=== PATIENT | male | born 1955 ===

== ENCOUNTER 2021-12-07 14:11 | Emergency (ER) | payer MEDICARE, MEDICAID, SELFPAY ==
--- NOTE | ~2021-12-07 | XR_ITS ---
EXAMINATION: XR HIP, LEFT CLINICAL INFORMATION: Pain after fall COMPARISON: None TECHNIQUE: Two views of the left hip. Single view pelvis FINDINGS: The pelvic image does not demonstrate fracture. The detailed imaging of the left hip does not demonstrate evidence for fracture or dislocation. XR/XR hip LT w PEL1V IMPRESSION: No fracture or dislocation seen.
[2021-12-07 14:32] VITALS: BP 116/70; PULSE 72; O2SAT 98
--- NOTE | 2021-12-07 14:34 | ED.GENADULT ---
HPI - General Adult General Chief complaint: Extremity Injury, Lower Stated complaint: FALL Time Seen by Provider: 12/07/21 14:33 Source: patient and EMS Limitations: altered mental status History of Present Illness HPI narrative: This is a 66-year-old male who resides at a detention facility, is there for rehab after a fall. Patient has had left hip pain for some time, though he has been able to ambulate. He has not had any known fracture. Patient also has a history of a stroke. The patient reportedly had rolled out of bed last night and then complained of left hip pain. The nursing facility supposedly was to get an x-ray on him at the facility however the patient himself called EMS stating he had left hip pain after a fall. Per EMS, the patient has been ambulatory today and they observed that he was able to stand and pivot normally. Patient denies hitting his head. He has some pain in his sternum and points to his xiphoid process states the pain has been there for some time. Denies any generalized chest pain, shortness of breath, abdominal pain. Related Data Allergies Allergy/AdvReac Type Severity Reaction Status Date / Time gabapentin [GABAPENTIN] Allergy Unknown N/V Unverified 01/07/20 16:51 Penicillins [PENICILLINS] Allergy Unknown RASH Unverified 01/07/20 16:51 pregabalin [From LYRICA] Allergy Unknown N/V Unverified 01/07/20 16:51 cephalosporin Allergy Unknown Uncoded 02/13/12 00:00 Penicillin Allergy Unknown Uncoded 02/13/12 00:00 Review of Systems Review of Systems: Yes all other systems are reviewed and are negative Constitutional: Constitutional: Reports as per HPI and Denies fever(s) Eyes: Eyes: Reports as per HPI and Reports no additional eye complaints ENT: Reports system reviewed and no additional complaints, except as documented, Reports as per HPI, Denies nasal congestion, Denies nasal discharge and Denies sore throat Cardiovascular: Cardiovascular: Reports as per HPI, Denies chest pain and Denies dyspnea Respiratory: Respiratory: Reports as per HPI, Denies cough and Denies dyspnea Gastrointestinal: Gastrointestinal: Reports as per HPI, Denies abdominal pain, Denies diarrhea and Denies vomiting Genitourinary: Genitourinary: Reports as per HPI, Denies hematuria, Denies dysuria and Denies urinary frequency Musculoskeletal: Musculoskeletal: Reports no additional musculoskeletal complaints and Denies numbness Comments: Left hip pain Integumentary/Breasts: Skin/Breast: Reports as per HPI and Denies rash Neurologic: Reports as per HPI, Denies focal weakness and Denies numbness Psychiatric: Psychiatric: Reports no additional psychiatric complaints and Reports as per HPI Endocrine: Endocrine: Reports no additional endocrine complaints and Reports as per HPI Hematologic/Lymphatic: Hematologic/Lymphatic: Reports no additional hematologic/lymphatic complaints, Reports as per HPI and Reports other (No peripheral edema) ON LICENSE OF [facility] Social History Social History Advance Directives: No Advance Directives Information Provided: No Physical Exam ED Vital Signs: Vital Signs - 24 hr 12/07/21 14:36 12/07/21 16:06 Temperature 98 F Pulse Rate 72 78 Respiratory Rate 17 16 Blood Pressure 116/72 119/60 Pulse Oximetry 98 98 Oxygen Delivery Method Room Air Room Air BMI result Body Mass Index 24.3 Const General: no acute distress HENMT Head: Yes normal to inspection General nose exam: Normal external nose present Mouth: moist mucous membranes Throat: Yes posterior oropharynx normal, Yes tonsils normal and Yes uvula midline Eyes Eyelids: Yes eyelids normal Conjunctivae: conjunctivae normal Pupils: Equal, round and reactive pupils present Neck Neck: Yes supple Chest Other: Patient has a very prominent xiphoid process which protrudes forward. This appears to be a chronic issue and not secondary to injury. Resp Effort & Inspection: normal respiratory effort Auscultation: clear to auscultation bilaterally Cardio Rate: regular rate Rhythm: regular rhythm Heart sounds: S1 normal heart sound present, S2 normal heart sound present, no gallops, no murmurs and no rubs GI Inspection: No distended Palpation (GI): Soft to palpation and nontender Auscultation: normal bowel sounds Skin General skin exam: other (Warm and dry) Neuro General: CN's II-XI intact bilaterally Cranial nerves: Yes Equal, round and reactive pupils present Extrem Other: No significant tenderness over left hip. No tenderness to flexion or internal/external rotation. Pelvis stable. General: Yes no pedal edema Psych Affect: normal affect Attitude: cooperative Medical Decision Making MDM Narrative Medical decision making narrative: Patient had a fall out of bed last evening, had been assessed at his detention facility could staff there was surprised when the ambulance arrived, patient had apparently called the ambulance on his own home. Patient had been ambulating today after the fall and EMS noted that the patient seemed to stand and pivot normally. Patient had no significant tenderness on exam. X-ray of the hip was negative. Patient has previously had pain in that hip, had been assessed previously at [facility] for this. Patient is safe for return to his detention facility Imaging Data Left hip x-ray: Radiologist's impression: No acute pathology Discharge Plan Discharge Clinical Impression: Chronic hip pain Patient Disposition: [facility] SN[facility] Instructions: Chronic Pain (ED), Hip Pain (ED) Additional Instructions: Continue her current medications. Use acetaminophen 650 mg every 4 hours for pain.
[2021-12-07 14:36] VITALS: BP 116/72; PULSE 72; RESP 17; TEMP 36.6; O2SAT 98; BMI 24.3
[2021-12-07] MEDS: Acetaminophen 325 MG TABLET 650 MG PO (16:03)
[2021-12-07 16:06] VITALS: BP 119/60; PULSE 78; RESP 16; O2SAT 98
--- NOTE | 2021-12-07 16:15 | PC.NURSE ---
report given to [facility], spouse and primary contact updated. pending transport to [facility].
== END 2021-12-07 18:07 | disposition skilled nursing facility (03) ==
PROVIDERS: Emergency Provider Emergency Medicine; PCP Internal Medicine
DX: G89.29 Other chronic pain (principal); M25.552 Pain in left hip
CPT/HCPCS: 73502; 99283

== ENCOUNTER 2022-10-03 10:33 | Emergency (ER) | payer MEDICARE, MEDICAID, SELFPAY ==
[2022-10-03 10:49] VITALS: BP 107/58; BP 122/76; PULSE 80; PULSE 98; RESP 16; TEMP 36.6; O2SAT 95; O2SAT 98; BMI 24.6
--- NOTE | 2022-10-03 11:13 | PC.NURSE ---
Resumed care of patient, he is currently resting in bed, monitors in place. All needs met at this time, awaiting further orders
[2022-10-03 12:10] LABS: MANUAL DIFF FLAG NO
[2022-10-03 12:17] LABS: Basophils Percent Auto 0.6 % (0-2); Eosinophils Absolute Auto 0.1 X10*3/uL (0.0-0.4); Eosinophils Percent Auto 1.1 % (0-4); Hematocrit 36.8 % (42.0-52.0); Hemoglobin 12.8 g/dl (14.0-18.0); Imm Gran Abs Auto 0.02 X10*3/uL (0.00-0.03); Imm Gran Pct Auto 0.3 % (0.0-0.4); Lymphocytes Absolute Auto 1.8 X10*3/uL (1.2-4.9); Lymphocytes Percent Auto 29.3 % (20-40); Mean Corpuscular HGB Conc 34.8 g/dl (31.0-36.0); Mean Corpuscular Hemoglobin 32.9 pg (27.0-33.0); Mean Corpuscular Volume 94.6 fL (80.0-98.0); Mean Platelet Volume 8.5 fL (9.4-12.4); Monocytes Absolute Auto 0.5 X10*3/uL (0.1-1.2); Monocytes Percent Auto 8.3 % (2-11); Neutrophils Absolute Auto 3.7 x10*3/uL (2.0-8.3); Neutrophils Percent Auto 60.4 % (45-73); Platelet Count 191 X10*3/uL (160-400); Red Blood Count 3.89 X10*6/uL (4.60-5.80); Red Cell Distribution Width 11.9 % (11.0-16.0); White Blood Count 6.2 X10*3/uL (4.8-10.8)
[2022-10-03 12:27] LABS: Alanine Aminotransferase 14 U/L (0-40); Albumin Level 4.1 g/dL (3.5-5.0); Alkaline Phosphatase 66 U/L (39-117); Anion Gap 14 (12-20); Aspartate Amino Transferase 13 U/L (5-37); Bilirubin Total 2.1 mg/dL (0.0-1.0); Blood Urea Nitrogen 12 mg/dL (9-16); Calcium 9.4 mg/dL (8.4-10.2); Carbon Dioxide 25 mmol/L (22-29); Chloride 108 mmol/L (96-108); Creatinine Clr Calc Pharmacy 113.6; Estimated Glomerular Filt Rate > 60; Glucose Random 114 mg/dL (60-115); Magnesium 1.8 mg/dL (1.6-2.6); Potassium 3.6 mmol/L (3.3-5.1); Sodium 143 mmol/L (135-145); Total Protein 6.8 g/dL (6.5-8.0)
[2022-10-03 13:10] VITALS: BP 117/64; PULSE 62; RESP 17; TEMP 36.9; O2SAT 97
--- NOTE | 2022-10-03 13:46 | ED.GENADULT ---
HPI - General Adult General Chief complaint: General Medical Stated complaint: Dizzy, spacing out per EMS Time Seen by Provider: 10/03/22 12:06 Source: patient Mode of arrival: EMS Limitations: no limitations History of Present Illness HPI narrative: 67-year-old male presents for brief episode of confusion patient was doing okay until this morning when he developed a period of confusion where he was unsure where he was. He has since cleared and is mostly at his baseline mental status. He denies any fevers, chills, cough or mucus production. Denies any pain. Denies any urinary frequency, urgency or dysuria. There is no clear relieving or exacerbating features. His symptoms at this time were quite mild at that time that this occurred, he would is described as symptoms as severe. Patient has had perhaps 1 episode of this in the past but he was unable to describe it any further. Patient denies any other acute complaints at this time. Patient is hungry and would like something to eat. Related Data Allergies Allergy/AdvReac Type Severity Reaction Status Date / Time gabapentin [GABAPENTIN] Allergy Unknown N/V Verified 10/03/22 11:01 Penicillins [PENICILLINS] Allergy Unknown RASH Verified 10/03/22 11:01 pregabalin [From LYRICA] Allergy Unknown N/V Verified 10/03/22 11:01 cephalosporin Allergy Unknown Itching Uncoded 10/03/22 11:01 Penicillin Allergy Unknown Swelling Uncoded 10/03/22 11:01 Review of Systems Review of Systems: CONSTITUTIONAL: Denies weight loss, fever and chills. HEENT: Denies changes in vision and hearing. RESPIRATORY: Denies SOB and cough. CV: Denies palpitations no CP. GI: Denies abdominal pain, nausea, vomiting and diarrhea. : Denies dysuria and urinary frequency. MSK: Denies myalgia and joint pain. SKIN: Denies rash and pruritus. NEUROLOGICAL: Denies headache and syncope. PSYCHIATRIC: Denies recent changes in mood. Denies anxiety and depression. All other ROS are negative unless in HPI PMFSH Social History Social History Smoked in Last 30 Days: Yes Use of substances other than those prescribed or required for medical reasons: Yes Substance Use Type: Marijuana Substance Use Frequency: Weekly Substance Use Frequency Other:: 5 Last Used Substance: Days (ago) Advance Directives: No Physical Exam ED Vital Signs: Vital Signs - 24 hr 10/03/22 10:49 10/03/22 13:10 Temperature 98 F 98.4 F Pulse Rate 80 62 Respiratory Rate 16 17 Blood Pressure 107/58 L 117/64 Pulse Oximetry 98 97 Oxygen Delivery Method Room Air Room Air BMI result Body Mass Index 24.6 GEN: Well developed, no acute distress, alert, oriented HEENT: Normocephalic, atraumatic, normal external ears, nose appears normal, no oropharyngeal edema or exudates Eyes: Normal to appearance Neck: Supple, no lymphadenopathy Respiratory: Talks in complete sentences, no respiratory distress, clear to auscultation bilaterally Cardiovascular: Regular rate and rhythm, no murmurs rubs or gallops Abdomen: Soft, nontender, nondistended, no guarding, no rebound Back: No CVA tenderness Extremities: No clubbing cyanosis or edema Neurologic: No focal neurologic deficits, cranial nerves 2-12 intact, strength is 5/5 bilaterally Skin: No rash Course Course Course Narrative: Patient workup is nearly complete. Urinalysis is pending however, patient is able to urinate at this time. There is no evidence of acute infection. He is otherwise asymptomatic. I will discuss the potential for discharge at this time any can follow up with his regular provider should he have any urinary complaints. Medical Decision Making Medical Decision Making [facility] Narrative: 67-year-old male presents with brief confusional episode. Etiology is unclear. Has no new focal neurologic deficits. He is alert, oriented, appropriate offers no complaints. Will check routine laboratory analysis an order urinalysis to see if he has UTI. There is no indication for emergent imaging. Differential diagnosis could include glycemic related issue, electrolyte abnormality, confusion, disorientation, delirium. Disposition pending workup. Differential Diagnosis Differential Diagnoses: The differential diagnosis associated with the presentation includes (See above) Admission/Observation Consideration of admission/observation: Escalation of care including admission/observation considered Lab Data [facility] Lab Attestation statement: I reviewed the patient's lab results. 10/03/22 12:04 10/03/22 12:04 Labs: Lab Results 10/03/22 10/03/22 Range/Units 12:04 12:04 WBC 6.2 (4.8-10.8) X10*3/uL RBC 3.89 L (4.60-5.80) X10*6/uL Hgb 12.8 L (14.0-18.0) g/dl Hct 36.8 L (42.0-52.0) % MCV 94.6 (80.0-98.0) fL MCH 32.9 (27.0-33.0) pg MCHC 34.8 (31.0-36.0) g/dl RDW 11.9 (11.0-16.0) % Plt Count 191 (160-400) X10*3/uL MPV 8.5 L (9.4-12.4) fL Immature Gran % (Auto) 0.3 (0.0-0.4) % Neut % (Auto) 60.4 (45-73) % Lymph % (Auto) 29.3 (20-40) % [place] % (Auto) 8.3 (2-11) % Eos % (Auto) 1.1 (0-4) % Baso % (Auto) 0.6 (0-2) % Lymph # (Auto) 1.8 (1.2-4.9) X10*3/uL [place] # (Auto) 0.5 (0.1-1.2) X10*3/uL Eos # (Auto) 0.1 (0.0-0.4) X10*3/uL Baso # (Auto) 0.0 (0.0-0.2) X10*3/uL Abs Immat Gran (auto) 0.02 (0.00-0.03) X10*3/uL Absolute Neuts (auto) 3.7 (2.0-8.3) x10*3/uL Absolute Nucleated RBC 0.000 (0.0-0.012) X10*3/uL Nucleated RBC % (auto) 0.0 (0.0-0.2) /100WBC Sodium 143 (135-145) mmol/L Potassium 3.6 (3.3-5.1) mmol/L Chloride 108 (96-108) mmol/L Carbon Dioxide 25 (22-29) mmol/L Anion Gap 14 (12-20) BUN 12 (9-16) mg/dL Creatinine 0.66 (0.5-1.4) mg/dL Estim Creat Clear Calc 113.6 Estimated GFR > 60 Random Glucose 114 (60-115) mg/dL Calcium 9.4 (8.4-10.2) mg/dL Magnesium 1.8 (1.6-2.6) mg/dL Total Bilirubin 2.1 H (0.0-1.0) mg/dL AST 13 (5-37) U/L ALT 14 (0-40) U/L Alkaline Phosphatase 66 (39-117) U/L Total Protein 6.8 (6.5-8.0) g/dL Albumin 4.1 (3.5-5.0) g/dL External Record Review No external records are available Tests considered The following testing was considered but not selected: Urinalysis, CT scan Prescription Management I considered prescription management with: Antibiotic Chronic Conditions Patient?s care impacted by: Diabetes Discharge Plan Discharge Clinical Impression: Acute confusion Patient Disposition: Home, Self-Care Instructions: Acute Delirium (ED) Referrals: Leonardo Bingham III, MD [Primary Care Provider] - 2 days
--- NOTE | 2022-10-03 16:00 | PC.NURSE ---
tel# for Contact to pick him up is no longer in service.
--- NOTE | 2022-10-03 16:46 | PC.NURSE ---
have tried to call the numbers we have on file all are disconnected, will arrange a lift.
[2022-10-03 17:24] LABS: Appearance Urine Clear; Color Urine Dark Yellow; Glucose Urine UA Negative (Negative); Leukocyte Esterase Urine Trace (Negative); Nitrite Urine Negative (Negative); Specific Gravity - Urine >= 1.030 (1.005-1.025); UMIC TRIGGER UACC YES; Urine Blood Negative (Negative); Urine Ketones Trace mg/dL (Negative); Urine Protein 30 (1+) mg/dL (Neg-Trace)
[2022-10-03 17:44] LABS: Bacteria Urine None Seen (None Seen); Hyaline Casts Urine 0-2 /LPF (0-2); RBC Urine 0-2 /HPF (0-2); Squamous Epithelial Cell Urine 0-2 /HPF (0-2); WBC Urine 0-5 /HPF (0-5)
[2022-10-03 17:51] VITALS: BP 109/58; PULSE 58; RESP 15; TEMP 36.6; O2SAT 98
== END 2022-10-03 19:16 | disposition home or self-care (01) ==
PROVIDERS: Physician Assistant Medical; Emergency Provider Emergency Medicine; PCP Internal Medicine
DX: R41.0 Disorientation, unspecified (principal)
CPT/HCPCS: 36415; 80053; 81001; 83735; 85025; 99283; 99284

== ENCOUNTER 2023-01-26 13:32 | Inpatient (IN) | payer MEDICARE, SELFPAY ==
[2023-01-26] VITALS (9 sets, daily range): BP systolic 86–126; BP diastolic 47–71; PULSE 68–132; RESP 12–30; TEMP 36.9; O2SAT 91–99; BMI 23.2
--- NOTE | 2023-01-26 14:14 | ED.WEAKNESS ---
HPI - Weakness General Chief complaint: Extremity Problem Stated complaint: UPPER LEG PAIN Time Seen by Provider: 01/26/23 13:51 Source: patient Mode of arrival: ambulatory Limitations: no limitations History of Present Illness HPI Narrative: 67-year-old male with history of diabetes mellitus, hypertension, COPD, who presents emergency department for evaluation of weakness which started today that caused him to fall. The patient states that 3 weeks prior he fell and after value was unable to walk in the sent to rehab at [facility]. He states that he was released yesterday. When he got home he was not feeling well. He states he has not been able to walk. He states that his girlfriend was helping him to try to get up stairs when he felt he states that he did not hit his head any had no loss of consciousness. He was too weak to get up and an ambulance was called and was brought to the emergency department for evaluation. The patient's review of system was positive for rhinorrhea, shortness of breath and nausea. He denied fever, chills, cough, chest pain, dark black stools, bloody stools, frequency, urgency or dysuria. Related Data Allergies Allergy/AdvReac Type Severity Reaction Status Date / Time gabapentin [GABAPENTIN] Allergy Unknown N/V Verified 10/03/22 11:01 Penicillins [PENICILLINS] Allergy Unknown RASH Verified 10/03/22 11:01 pregabalin [From LYRICA] Allergy Unknown N/V Verified 10/03/22 11:01 cephalosporin Allergy Unknown Itching Uncoded 10/03/22 11:01 Penicillin Allergy Unknown Swelling Uncoded 10/03/22 11:01 Review of Systems Review of Systems: Yes all other systems are reviewed and are negative [facility] Past Medical History [facility] Narrative: Past medical history: Diabetes, hypertension, COPD-patient does not use home oxygen. Social history: He lives at home with his girlfriend. He smokes 1 pack of cigarettes per day times 20 years. He denies alcohol use. Denies drug use. Social History Social History Substance Use Type: Marijuana Advance Directives: No Advance Directives Information Provided: Yes Physical Exam Vital Signs: Vital Signs: Last Vital Signs Temp 98.5 F 01/26/23 13:47 Pulse 76 01/26/23 16:27 Resp 25 H 01/26/23 16:27 BP 104/62 01/26/23 16:27 Pulse Ox 94 01/26/23 16:27 O2 Del Method Nasal Cannula 01/26/23 16:27 O2 Flow Rate 2.5 01/26/23 16:27 BMI result Body Mass Index 23.2 Initial vital signs revealed hypotension with a blood pressure of 86/47, O2 saturation was 94% on 4 L via nasal cannula-patient does have COPD but he does not use oxygen at home. Respiratory rate was normal 12. Pulse was normal 94. Exam: General: Awake, alert, male patient, looks older than his stated age, answers all questions appropriate Head: Normocephalic, atraumatic EENT: PERRL, Lids normal, sclera normal, conjunctiva normal, nose normal , ears normal, throat without erythema or exudates. Patient's mucous membranes are very dry Neck: Supple, no adenopathy, trachea midline and nontender Lung: breath sounds symmetric, no wheezing, patient has rales diffusely but her bilaterally symmetric, he also has diffuse rhonchi Chest: symmetric movement, nontender Heart: regular rate and rhythm, normal S1, S2 no murmurs or rubs Abdomen: soft, non-tender, nondistended, normal bowel sounds Back: no vertebral tenderness, no CVAT Extremities: no deformities, moves all extremities symmetrically Skin: no rashes, no lesion, normal color and warmth Neuro: Awake, alert, oriented, normal speech, cranial nerves intact, moves all extremities symmetrically Psych: Pleasant, cooperative Medications Administered Generic Name Dose Route Start Last Admin Trade Name Freq PRN Reason Stop Dose Admin Dextrose/Sodium Chloride 1,000 mls @ 250 mls/hr 01/26/23 16:00 01/26/23 16:43 D51/2ns IVCONT 250 mls/hr .Q4H GAGANDEEP Administration Discontinued Medications Generic Name Dose Route Start Last Admin Trade Name Freq PRN Reason Stop Dose Admin Dexamethasone Sodium Phosphate 6 mg 01/26/23 15:45 01/26/23 16:36 Dexamethasone Sod Phosphate 4 Mg/Ml Vial IVPUSH 01/26/23 15:46 6 mg ONCE ONE Administration Sodium Chloride 2,202 mls @ 2,202 mls/hr 01/26/23 14:20 01/26/23 15:25 Ns 30 ml/kg infuse over 1 hr (2202 ml) 01/26/23 15:19 Infused IV Infusion .Q1H STA Ceftriaxone Sodium 1 gm/ 50 mls @ 100 mls/hr 01/26/23 14:22 01/26/23 15:21 Sodium Chloride IV 01/26/23 14:51 Infused ONCE ONE Infusion Medical Decision Making Medical Decision Making [facility] Narrative: 16:10 67-year-old male with a history of diabetes mellitus, hypertension, COPD-does not wear oxygen who had a fall 3 weeks, sent to rehab from which he was released yesterday. Since being home he has been feeling weak and has had difficulty walking, he was walking in his hallway with his girlfriend to try to go upstairs any fell. He had no head injury but was too weak and an ambulance was called and he was brought to the emergency department for evaluation. Patient's vital signs did reveal hypotension and hypoxia. Lung exam was concerning for diffuse rhonchi diffuse rales but no wheezing. Neurologic exam was nonfocal. No evidence for trauma. Following evaluation was ordered: CBC, CMP, liver profile, bilirubin, lactic acid, PT/INR, PTT, troponin, influenza, COVID-19, EKG urinalysis, chest x-ray one view. I ordered 30 cc/kilogram normal saline bolus and ceftriaxone 1 g IV. Patient's laboratory evaluation did reveal an elevated sodium of 148 suggesting the patient is dehydrated, has an elevated BUN of 31 suggesting that he did volume depleted Lactic acid was elevated 7.3-this could be multifactorial and related to starvation ketosis versus infection. I will discuss admission with the covering hospitalist. 17:03 The patient's repeat lactic acid was improved at 2.8. Repeat blood pressure is also improved. Focal exam was performed. I did discuss patient's presentation with the covering hospitalist, Dr. Payan and the patient will be admitted for further management. Differential Diagnosis Differential Diagnoses: The differential diagnosis associated with the presentation includes 16:10 Differential diagnosis includes was not limited to dehydration, volume depletion, pneumonia, urinary tract infection, COVID-19, influenza, electrolyte abnormalities, any Admission/Observation Consideration of admission/observation: Escalation of care including admission/observation considered Lab Data [facility] Lab Attestation statement: I reviewed the patient's lab results. My interpretation patient's laboratory evaluation as follows: CBC was normal. Sodium elevated 148, chloride elevated 110, bicarb low 16 BUN elevated 31 with a normal creatinine of 1.1. Glucose elevated 184. Initial high sensitive troponin I was detectable but not elevated 3.0. lactic acid was elevated 7.3. Influenza was negative. COVID-19 is positive 01/26/23 13:54 01/26/23 13:54 Labs: Lab Results 01/26/23 01/26/23 01/26/23 Range/Units 13:54 14:28 14:29 WBC 9.9 (4.8-10.8) X10*3/uL RBC 4.56 L (4.60-5.80) X10*6/uL Hgb 14.5 (14.0-18.0) g/dl Hct 43.5 (42.0-52.0) % MCV 95.4 (80.0-98.0) fL MCH 31.8 (27.0-33.0) pg MCHC 33.3 (31.0-36.0) g/dl RDW 12.2 (11.0-16.0) % Plt Count 193 (160-400) X10*3/uL MPV 8.9 L (9.4-12.4) fL Immature Gran % (Auto) 0.3 (0.0-0.4) % Neut % (Auto) 87.5 H (45-73) % Lymph % (Auto) 7.8 L (20-40) % [place] % (Auto) 4.1 (2-11) % Eos % (Auto) 0.1 (0-4) % Baso % (Auto) 0.2 (0-2) % Lymph # (Auto) 0.8 L (1.2-4.9) X10*3/uL [place] # (Auto) 0.4 (0.1-1.2) X10*3/uL Eos # (Auto) 0.0 (0.0-0.4) X10*3/uL Baso # (Auto) 0.0 (0.0-0.2) X10*3/uL Abs Immat Gran (auto) 0.03 (0.00-0.03) X10*3/uL Absolute Neuts (auto) 8.7 H (2.0-8.3) x10*3/uL Absolute Nucleated RBC 0.000 (0.0-0.012) X10*3/uL Nucleated RBC % (auto) 0.0 (0.0-0.2) /100WBC PT 12.1 (11.1-13.3) SEC INR 1.0 (0.9-1.1) APTT 34.4 (26.0-36.4) SEC Sodium 148 H (135-145) mmol/L Potassium 3.7 (3.3-5.1) mmol/L Chloride 110 H (96-108) mmol/L Carbon Dioxide 16 L (22-29) mmol/L Anion Gap 26 H (12-20) BUN 31 H (9-16) mg/dL Creatinine 1.11 (0.5-1.4) mg/dL Estim Creat Clear Calc 67.5 Estimated GFR > 60 Random Glucose 184 H (60-115) mg/dL Lactic Acid 7.3 H* (0.5-2.0) mmol/L Lactic Acid F/U @ 2Hr (0.5-2.0) mmol/L Calcium 9.8 (8.4-10.2) mg/dL Total Bilirubin 0.7 0.6 (0.0-1.0) mg/dL Direct Bilirubin 0.3 (0.0-0.5) mg/dL AST 14 (5-37) U/L ALT 15 (0-40) U/L Alkaline Phosphatase 81 (39-117) U/L Troponin I High Sens 3.0 (<3.5-35.0) ng/L Total Protein 6.4 L (6.5-8.0) g/dL Albumin 3.5 (3.5-5.0) g/dL Hold Green Top See Note Influenza Type A (PCR) NEGATIVE (Negative) Influenza Type B (PCR) NEGATIVE (Negative) RSV RNA Qual (PCR) NEGATIVE (Negative) SARS-CoV-2 RNA (RT-PCR) POSITIVE A (Negative) 01/26/23 Range/Units 16:27 WBC (4.8-10.8) X10*3/uL RBC (4.60-5.80) X10*6/uL Hgb (14.0-18.0) g/dl Hct (42.0-52.0) % MCV (80.0-98.0) fL MCH (27.0-33.0) pg MCHC (31.0-36.0) g/dl RDW (11.0-16.0) % Plt Count (160-400) X10*3/uL MPV (9.4-12.4) fL Immature Gran % (Auto) (0.0-0.4) % Neut % (Auto) (45-73) % Lymph % (Auto) (20-40) % [place] % (Auto) (2-11) % Eos % (Auto) (0-4) % Baso % (Auto) (0-2) % Lymph # (Auto) (1.2-4.9) X10*3/uL [place] # (Auto) (0.1-1.2) X10*3/uL Eos # (Auto) (0.0-0.4) X10*3/uL Baso # (Auto) (0.0-0.2) X10*3/uL Abs Immat Gran (auto) (0.00-0.03) X10*3/uL Absolute Neuts (auto) (2.0-8.3) x10*3/uL Absolute Nucleated RBC (0.0-0.012) X10*3/uL Nucleated RBC % (auto) (0.0-0.2) /100WBC PT (11.1-13.3) SEC INR (0.9-1.1) APTT (26.0-36.4) SEC Sodium (135-145) mmol/L Potassium (3.3-5.1) mmol/L Chloride (96-108) mmol/L Carbon Dioxide (22-29) mmol/L Anion Gap (12-20) BUN (9-16) mg/dL Creatinine (0.5-1.4) mg/dL Estim Creat Clear Calc Estimated GFR Random Glucose (60-115) mg/dL Lactic Acid (0.5-2.0) mmol/L Lactic Acid F/U @ 2Hr 2.5 H* (0.5-2.0) mmol/L Calcium (8.4-10.2) mg/dL Total Bilirubin (0.0-1.0) mg/dL Direct Bilirubin (0.0-0.5) mg/dL AST (5-37) U/L ALT (0-40) U/L Alkaline Phosphatase (39-117) U/L Troponin I High Sens (<3.5-35.0) ng/L Total Protein (6.5-8.0) g/dL Albumin (3.5-5.0) g/dL Hold Green Top Influenza Type A (PCR) (Negative) Influenza Type B (PCR) (Negative) RSV RNA Qual (PCR) (Negative) SARS-CoV-2 RNA (RT-PCR) (Negative) Critical Care Time Critical Care Time Critical Care Time: Yes Total Critical Care Time: 45 Attestation: Critical Care: The patient was critically ill with a high probability of imminent or life threatening deterioration. I spent greater than 30 minutes of discontinuous time evaluating the patient,delivering critical care at the bedside, discussing and evaluating pertinent data with consultants. Critical care time does not include time spent performing separately billable procedures or teaching. Total time spent performing critical care was 45 minutes. Discharge Plan Discharge Patient Disposition: Admitted As Inpatient
--- NOTE | 2023-01-26 18:17 | PM.IMHP ---
History of Present Illness Date of Service: 01/26/23 Attending physician on admission: Maxi Payan Chief Complaint: weakness, sob, cough 67-year-old male with history of tsk-jaqfczh-[id number] type 2 diabetes, hypertension, COPD, hyperlipidemia, history CVA on Plavix, vascular dementia, coronary artery disease, and diabetic polyneuropathy presented to the ED earlier today from home for evaluation of generalized weakness and falls that have been going on for several weeks. The patient was discharged yesterday from [facility] where he had been rehabbing due to his weakness. He states that he still feels quite weak and had a mechanical fall earlier today. This was unwitnessed but he denies any head strike or loss of consciousness. Reports he was on the ground for about 30 minutes before his girlfriend found him and called EMS. He has also reported shortness of breath, rhinorrhea, and dry cough. He also tells me he has not urinated yet today. Denies any fevers, chills, sore throat, sinus pain, abdominal pain, nausea, vomiting, dysuria, hematuria, urinary urgency or frequency, lightheadedness, headache, or chest pain. He denies any known sick contacts. Denies previously having tested positive for COVID-19 in recent history. On arrival, patient hypoxic to 86% and placed on 2 L supplemental O2 now maintaining oximetry around 94%. Initially, patient tachycardic to 116, tachypneic to 22 and hypotensive to 88/58. Patient was given IV fluid bolus of 2200 mL with resolution of hypotension as well as tachycardia. There is no leukocytosis. Creatinine baseline at 1.11 but BUN elevated at 31. Sodium elevated at 148, chloride 110. Potassium normal 3.7, CO2 16, anion gap 16. Glucose 184. Initial lactic acid 7.3 improved to 2.5 following IV fluids. Troponin within normal limits. Negative for influenza, RSV, but positive for COVID-19. Chest x-ray shows retrocardiac pneumonia in left lower lobe but no parapneumonic effusion. In the ED treated with 2200ml IV NS, now on D5W/ 1/2 NS. Also given 1g IV ceftriaxone and 6 mg dexamethasone. He reports smoking about 8 cigarettes on a daily basis as well as marijuana but denies any illicit drug use or alcohol use. Review of Systems Review of Systems: General: No fevers, malaise, unintentional weight loss. +generalized weakness HEENT: +rhinorrhea. No sore throat, nasal congestion, sinus pain, ear pain Cardiovascular: No chest pain, palpitations, or leg edema Respiratory: +shortness of breath, +wheezing, +cough GI: No abdominal pain, nausea, vomiting, diarrhea, constipation, melena, hematochezia : +decreased urinary outpt. No dysuria, hematuria, increased urinary frequency MSK: No myalgia, back pain Neuro: No headaches, focal weakness, paresthesias Skin: No rashes or lesions [facility] Medical History (Updated 01/26/23 @ 19:03 by DONNY Armenta) CLEOPATRA on CPAP Seizure disorder Vascular dementia CVA (cerebral vascular accident) COPD (chronic obstructive pulmonary disease) Hypertension Type 2 diabetes mellitus Social History Substance Use Type: Marijuana Advance Directives: No Advance Directives Information Provided: Yes Meds Allergies Allergy/AdvReac Type Severity Reaction Status Date / Time gabapentin [GABAPENTIN] Allergy Unknown N/V Verified 10/03/22 11:01 Penicillins [PENICILLINS] Allergy Unknown RASH Verified 10/03/22 11:01 pregabalin [From LYRICA] Allergy Unknown N/V Verified 10/03/22 11:01 cephalosporin Allergy Unknown Itching Uncoded 10/03/22 11:01 Penicillin Allergy Unknown Swelling Uncoded 10/03/22 11:01 Active Medications: Current Medications Dextrose/Sodium Chloride (D51/2ns) 1,000 mls @ 250 mls/hr IVCONT .Q4H GAGANDEEP Last Admin: 01/26/23 16:43 Dose: 250 mls/hr Home Medications Medication Instructions Recorded Confirmed Last Taken Type ascorbic acid (vitamin C) 500 mg 500 mg PO DAILY 01/26/23 01/26/23 Unknown History tablet (Vitamin C) atorvastatin 40 mg tablet 40 mg PO DAILY 01/26/23 01/26/23 Unknown History cholecalciferol (vitamin D3) 1,250 50,000 unit PO FR@0900 01/26/23 01/26/23 Unknown History mcg (50,000 unit) capsule clopidogrel 75 mg tablet 75 mg PO DAILY 01/26/23 01/26/23 Unknown History glimepiride 4 mg tablet 4 mg PO DAILY 01/26/23 01/26/23 Unknown History lisinopril 5 mg tablet 5 mg PO DAILY 01/26/23 01/26/23 Unknown History magnesium oxide 400 mg (241.3 mg 400 mg PO DAILY 01/26/23 01/26/23 Unknown History magnesium) tablet metformin 1,000 mg tablet 1,000 mg PO BID 01/26/23 01/26/23 Unknown History pantoprazole 40 mg tablet,delayed 40 mg PO DAILY PRN Acid Reflux 01/26/23 01/26/23 Unknown History release pregabalin 50 mg capsule (Lyrica) 50 mg PO BID 01/26/23 01/26/23 Unknown History sertraline 25 mg tablet 25 mg PO DAILY 01/26/23 01/26/23 Unknown History thiamine HCl (vitamin B1) 100 mg 100 mg PO DAILY 01/26/23 01/26/23 Unknown History tablet (Vitamin B-1) Physical Exam Vital Signs and Narrative: Vital Signs: Last Vital Signs Temp 98.5 F 01/26/23 13:47 Pulse 76 01/26/23 16:27 Resp 25 H 01/26/23 16:27 BP 104/62 01/26/23 16:27 Pulse Ox 94 01/26/23 16:27 O2 Del Method Nasal Cannula 01/26/23 16:27 O2 Flow Rate 2.5 01/26/23 16:27 BMI result Body Mass Index 23.2 Constitutional - Awake and Alert, No apparent distress Eyes - PERRLA, EOMI Cardiovascular - S1S2, RRR, No edema Respiratory - Normal lung expansion, Normal respiratory effort, No respiratory distress, diffuse rhonchi bilaterally Gastrointestinal - suprapubic tenderness to palpation with bladder distension. +BS; No rebound or guarding Extremities - no calf tenderness bilaterally, no swelling Skin - Warm/Dry Neurological - Alert & oriented x3 Psychological - Appropriate affect Results Labs 01/26/23 13:54 01/26/23 20:25 Labs: Laboratory Results - last 24 hr 01/26/23 01/26/23 01/26/23 13:54 14:28 14:29 MCV 95.4 MCH 31.8 MCHC 33.3 RDW 12.2 Plt Count 193 MPV 8.9 L Immature Gran % (Auto) 0.3 Neut % (Auto) 87.5 H Lymph % (Auto) 7.8 L [place] % (Auto) 4.1 Eos % (Auto) 0.1 Baso % (Auto) 0.2 Lymph # (Auto) 0.8 L [place] # (Auto) 0.4 Eos # (Auto) 0.0 Baso # (Auto) 0.0 Abs Immat Gran (auto) 0.03 Absolute Neuts (auto) 8.7 H Absolute Nucleated RBC 0.000 Nucleated RBC % (auto) 0.0 PT 12.1 INR 1.0 APTT 34.4 Anion Gap 26 H Estim Creat Clear Calc 67.5 Estimated GFR > 60 Random Glucose 184 H Lactic Acid 7.3 H* Lactic Acid F/U @ 2Hr Calcium 9.8 Total Bilirubin 0.7 0.6 Direct Bilirubin 0.3 AST 14 ALT 15 Alkaline Phosphatase 81 Total Protein 6.4 L Albumin 3.5 Hold Green Top See Note Influenza Type A (PCR) NEGATIVE Influenza Type B (PCR) NEGATIVE RSV RNA Qual (PCR) NEGATIVE SARS-CoV-2 RNA (RT-PCR) POSITIVE A 01/26/23 16:27 MCV MCH MCHC RDW Plt Count MPV Immature Gran % (Auto) Neut % (Auto) Lymph % (Auto) [place] % (Auto) Eos % (Auto) Baso % (Auto) Lymph # (Auto) [place] # (Auto) Eos # (Auto) Baso # (Auto) Abs Immat Gran (auto) Absolute Neuts (auto) Absolute Nucleated RBC Nucleated RBC % (auto) PT INR APTT Anion Gap Estim Creat Clear Calc Estimated GFR Random Glucose Lactic Acid Lactic Acid F/U @ 2Hr 2.5 H* Calcium Total Bilirubin Direct Bilirubin AST ALT Alkaline Phosphatase Total Protein Albumin Hold Green Top Influenza Type A (PCR) Influenza Type B (PCR) RSV RNA Qual (PCR) SARS-CoV-2 RNA (RT-PCR) Imaging Radiologist's Impressions: Impressions Chest X-Ray 01/26/23 14:54 IMPRESSION: Retrocardiac pneumonia left lower lobe. No parapneumonic effusion. Assessment and Plan (1) Pneumonia: Status: Acute (2) Hypoxia: Status: Acute (3) Fluid volume depletion: Status: Acute (4) Acute dehydration: Status: Acute (5) Weakness: Status: Acute (6) COVID-19: Status: Acute Plan 67-year-old male with history of [id number]-[id number] type 2 diabetes, hypertension, COPD, hyperlipidemia, history CVA on Plavix, vascular dementia, coronary artery disease, and diabetic polyneuropathy admitted for acute hypoxemic respiratory failure secondary to pneumonia and COVID-19. #Left lower lobe pneumonia due to COVID-19 with acute hypoxemic respiratory failure -CXR showing retrocardiac LLL pneumonia, positive for COVID-19 -IV ceftriaxone and azithromycin (initiated 01/26) -symptomatic management -strep pneumo antigen, Legionella antigen, sputum culture pending -continue supplemental O2 to maintain oximetry greater than 92% -Decadron 6 mg daily -IV remdesivir x3, ID consult -DuoNebs q.4h while awake -Follow CBC, cultures # COPD -no acute exacebration -no wheezing on exam -duonebs, albuterol prn as above #SIRS criteria -Initially tachycardic- due to dehydration- resolved with IVF -Tachypneic due to pneumonia -No leukocytosis. No sepsis #Hypotension- resolved on admission -due to hypovolemia, resolved with IVF -No sepsis/severe sepsis/shock -hold antihypertensives #Lactic acidosis -likely stavation ketoacidosis due to hypovolemia and metformin use -initial lactic acid 7.3, improved of 2.5 with IVF -not severe sepsis # anion gap metabolic acidosis -due to starvation ketoacidosis from hypovolemia/dehydration -Given aggressive IVF -Repeat BMP now, follow #Hyponatremia -due to hypovolemia -Given aggressive IVF -repeat BMP now. Follow BMP #Generalized weakness -likely r/t COVID-19 -PT eval # [id number]-xaoiqytpj type 2 diabetes -POC glucose -diabetic diet -Humulin sliding scale -hold metformin and glimepiride #Diabetic polyneuropathy -continue lyrica # CLEOPATRA -CPAP at bedtime # HLD/CAD -no agnial chest pain -continue statin #History CVA -continue plavix #Vascular dementia -mentation baseline #?focal seizure disorder -reviewed from [facility] records, pt seen by [facility] Neuro on 01/17 for focal seizure disorder advised to change keppra dosing to 500mg daily -pt's reports he does not have a seizure disorder and is not taking keppra and this has not been filled at pharmacy #Cigarette smoker -nicotine patch -cessation advised DVT prophylaxis-Lovenox Full code Patient requires inpatient stay at least 2 midnights for management of acute hypoxemic respiratory failure with COVID pneumonia requiring supplemental O2, IV antibiotics, and aggressive IV fluid management due to hypovolemia with anion gap survey george ketoacidosis. He will also require probable placement to STR. Time Spent With Patient Time: Total time managing care of this patient today ____ minutes. Quality Stroke Does the patient have a stroke diagnosis?: No VTE Prior VTE?: No VTE Risk Level:: Medical - moderate - high VTE Device Contraindication: Treatment Not Indicated VTE Drug Contraindication: N/A - Med Ordered
--- NOTE | 2023-01-26 18:40 | PHA.MEDREC ---
Addendum entered by Daniel Barrios 01/26/23 18:48: Patient's Montse ([phone]) knows meds. Original Note: Pharmacy Consult ? Medication Reconciliation Pharmacy has completed the medication reconciliation. Patient had med list with them.
[2023-01-26] MEDS: Albuterol/Iprat 2.5/0.5MG 3 ML AMPUL.NEB INHALE (19:22)
[2023-01-26] MEDS: guaiFENesin 200 MG/10 ML 10 ML LIQUID PO (20:05)
[2023-01-26] MEDS: Enoxaparin Sodium 40 MG/0.4 ML SYRINGE SUBCUT (20:06)
[2023-01-26] MEDS: Insulin Lispro 100 UNIT/ML 3 ML VIAL SUBCUT (20:31)
[2023-01-26] MEDS: Pregabalin 50 MG CAPSULE PO (20:32)
[2023-01-27] VITALS (9 sets, daily range): BP systolic 112–156; BP diastolic 55–89; PULSE 56–77; RESP 18–22; TEMP 36.4–37.1; O2SAT 92–98; BMI 25.3
[2023-01-27] MEDS: guaiFENesin 200 MG/10 ML 10 ML LIQUID PO (00:14)
--- NOTE | 2023-01-27 03:09 | MHC.EDTECH ---
This tech assumed care of patient at 0300AM,hourly rounds, vitals and belonging list completed. Patient repositioned to comfort and pillow placed under left side.
[2023-01-27 06:38] LABS: MANUAL DIFF FLAG NO
[2023-01-27 07:08] LABS: Basophils Percent Auto 0.2 % (0-2); Hemoglobin 11.6 g/dl (14.0-18.0); Imm Gran Abs Auto 0.02 X10*3/uL (0.00-0.03); Imm Gran Pct Auto 0.4 % (0.0-0.4); Lymphocytes Absolute Auto 0.9 X10*3/uL (1.2-4.9); Lymphocytes Percent Auto 19.5 % (20-40); Mean Corpuscular HGB Conc 33.1 g/dl (31.0-36.0); Mean Corpuscular Hemoglobin 31.4 pg (27.0-33.0); Mean Corpuscular Volume 94.6 fL (80.0-98.0); Mean Platelet Volume 9.1 fL (9.4-12.4); Monocytes Absolute Auto 0.3 X10*3/uL (0.1-1.2); Monocytes Percent Auto 5.6 % (2-11); Neutrophils Absolute Auto 3.4 x10*3/uL (2.0-8.3); Neutrophils Percent Auto 74.3 % (45-73); Platelet Count 123 X10*3/uL (160-400); Red Cell Distribution Width 11.9 % (11.0-16.0); White Blood Count 4.6 X10*3/uL (4.8-10.8)
[2023-01-27 07:12] LABS: Anion Gap 11 (12-20); Blood Urea Nitrogen 15 mg/dL (9-16); Calcium 8.1 mg/dL (8.4-10.2); Carbon Dioxide 23 mmol/L (22-29); Chloride 108 mmol/L (96-108); Creatinine Clr Calc Pharmacy 129.3; Estimated Glomerular Filt Rate > 60; Glucose Random 258 mg/dL (60-115); Potassium 3.3 mmol/L (3.3-5.1); Sodium 139 mmol/L (135-145)
--- NOTE | 2023-01-27 10:15 | MHC.CM.PN ---
Patient is Covid (+) and has Vascular Dementia; CM spoke with Significant Other x 20 years and HCP/Montse @ Patient's listed cell #. Patient lives on the second floor of a house with Montse and he was using a cane top assist with mobility. Patient was just dc to home yesterday from STR @ [facility] and there is no plan for him to return there. STR appears likely, pending PT eval and CM has initiated and will follow for dc planning.PCP is Dr. Latonya Hatfield.
--- NOTE | 2023-01-27 11:05 | HO.PM.IMPN ---
Subjective Subjective Date of Service: 01/27/23 Interval History: pneumonia/covid Review of Systems says sob somewhat improving (little) has productive cough no fevers of chills Physical Exam Vital Signs: Vital Signs: Last Vital Signs Temp 98.2 F 01/27/23 08:00 Pulse 60 01/27/23 08:00 Resp 22 H 01/27/23 08:00 BP 127/74 01/27/23 08:00 Pulse Ox 96 01/27/23 08:00 O2 Del Method Room Air 01/27/23 08:00 O2 Flow Rate 2.5 01/26/23 20:16 BMI result Body Mass Index 25.3 Appearance: Alert.? Oriented X3.? not in distress.? cvs: irregular rythem, [id number] . res: clear to auscultation ,no rhonchii or wheezing abd: no rebound or guarding ,nt, bs present. ext pulses present , no cyanosis . neuro: axo3 , nonfocal. Objective Data Active Medications Acetaminophen (Acetaminophen 325 Mg Tablet) 650 mg PO Q6H PRN PRN Reason: Pain, Mild (Pain Scale 1-3) Albuterol Sulfate (Albuterol Sulfate 90 Mcg 8 Gm Inhaler) 2 puff INHALE RQ4H PRN PRN Reason: Shortness of Breath/Wheezing Albuterol/Ipratropium (Albuterol/Iprat 2.5/0.5mg 3 Ml Ampul.Neb) 3 ml INHALE RQ4H WHILE AWAKE [facility] Last Admin: 01/27/23 08:00 Dose: Not Given Documented By: PARRIS Non-Admin Reason: Patient Refused Ascorbic Acid (Ascorbic Acid 500 Mg Tablet) 500 mg PO DAILY [facility] Last Admin: 01/27/23 09:26 Dose: 500 mg Documented By: STEPHANIE Atorvastatin Calcium (Atorvastatin Calcium 40 Mg Tablet) 40 mg PO DAILY [facility] Last Admin: 01/27/23 09:27 Dose: 40 mg Documented By: STEPHANIE Clopidogrel Bisulfate (Clopidogrel Bisulfate 75 Mg Tablet) 75 mg PO DAILY [facility] Last Admin: 01/27/23 09:27 Dose: 75 mg Documented By: STEPHANIE Dexamethasone (Dexamethasone 6 Mg Tablet) 6 mg PO DAILY [facility] Last Admin: 01/27/23 09:27 Dose: 6 mg Documented By: STEPHANIE Dextrose (Dextrose 50 % 25 Gm/50 Ml Syringe) 25 gm IVPUSH Q15M PRN; Protocol PRN Reason: per Hypoglycemia Standing Ord. Docusate Sodium (Docusate Sodium 100 Mg Capsule) 100 mg PO DAILY PRN PRN Reason: Constipation Enoxaparin Sodium (Enoxaparin Sodium 40 Mg/0.4 Ml Syringe) 40 mg SUBCUT Q24H [facility] Last Admin: 01/26/23 20:06 Dose: 40 mg Documented By: EVELYN Glucose (Glucose Gel 15 Gm Gel..Gram.) 15 gm PO Q15M PRN; Protocol PRN Reason: per Hypoglycemia Standing Ord. Guaifenesin (Guaifenesin 200 Mg/10 Ml 10 Ml Liquid) 10 ml PO Q4H [facility] Last Admin: 01/27/23 09:25 Dose: 10 ml Documented By: STEPHANIE Dextrose/Sodium Chloride (D51/2ns) 1,000 mls @ 250 mls/hr IVCONT .Q4H [facility] Last Admin: 01/27/23 09:37 Dose: 250 mls/hr Documented By: STEPHANIE Azithromycin 500 mg/ Sodium (Chloride) 250 mls @ 125 mls/hr IV Q24H [facility] Stop: 01/28/23 21:59 Last Infusion: 01/26/23 21:04 Dose: Infused Documented By: EVELYN Ceftriaxone Sodium 1 gm/ (Sodium Chloride) 50 mls @ 100 mls/hr IV Q24H [facility] Stop: 01/31/23 14:59 Remdesivir 100 mg/ Sodium (Chloride) 230 mls @ 115 mls/hr IV Q24H [facility] Stop: 01/28/23 21:59 Insulin Human Lispro (Insulin Lispro 100 Unit/Ml 3 Ml Vial) 0 unit SUBCUT QIDACHS [facility]; Protocol Last Admin: 01/27/23 08:25 Dose: 4 unit Documented By: STEPHANIE Magnesium Oxide (Magnesium Oxide 400 Mg Tablet) 400 mg PO DAILY [facility] Last Admin: 01/27/23 09:26 Dose: 400 mg Documented By: STEPHANIE Nicotine (Nicotine 14 Mg Patch.Td24) 14 mg TRANSDERMA DAILY [facility] Last Admin: 01/27/23 09:29 Dose: 14 mg Documented By: STEPHANIE Non-Formulary Medication (Cholecalciferol (Vitamin D3)) 50,000 unit PO FR@0900 [facility] Omeprazole (Omeprazole 20 Mg Capsule.Dr) 40 mg PO DAILY PRN PRN Reason: Acid Reflux Ondansetron HCl (Ondansetron Hcl 4 Mg/2 Ml Vial) 4 mg IVPUSH Q8H PRN PRN Reason: Nausea and Vomiting Pregabalin (Pregabalin 50 Mg Capsule) 50 mg PO BID [facility] Last Admin: 01/27/23 09:26 Dose: 50 mg Documented By: STEPHANIE Sertraline HCl (Sertraline Hcl 25 Mg Tablet) 25 mg PO DAILY [facility] Last Admin: 01/27/23 09:26 Dose: 25 mg Documented By: STEPHANIE Sodium Chloride (0.9 % Sodium Chloride Flush 3 Ml Syringe) 3 ml IVFLUSH QSHIFT [facility] Last Admin: 01/27/23 09:27 Dose: 3 ml Documented By: STEPHANIE Thiamine HCl (Thiamine Hcl 100 Mg Tablet) 100 mg PO DAILY [facility] Last Admin: 01/27/23 09:26 Dose: 100 mg Documented By: STEPHANIE Labs 01/27/23 06:32 01/27/23 06:32 Labs: Laboratory Results - last 24 hr 01/26/23 01/26/23 01/26/23 13:54 14:28 14:29 MCV 95.4 MCH 31.8 MCHC 33.3 RDW 12.2 Plt Count 193 MPV 8.9 L Immature Gran % (Auto) 0.3 Neut % (Auto) 87.5 H Lymph % (Auto) 7.8 L [place] % (Auto) 4.1 Eos % (Auto) 0.1 Baso % (Auto) 0.2 Lymph # (Auto) 0.8 L [place] # (Auto) 0.4 Eos # (Auto) 0.0 Baso # (Auto) 0.0 Abs Immat Gran (auto) 0.03 Absolute Neuts (auto) 8.7 H Absolute Nucleated RBC 0.000 Nucleated RBC % (auto) 0.0 PT 12.1 INR 1.0 APTT 34.4 Anion Gap 26 H Estim Creat Clear Calc 67.5 Estimated GFR > 60 POC Glucose Random Glucose 184 H Lactic Acid 7.3 H* Lactic Acid F/U @ 2Hr Lactic Acid F/U @ 4Hr Calcium 9.8 Total Bilirubin 0.7 0.6 Direct Bilirubin 0.3 AST 14 ALT 15 Alkaline Phosphatase 81 Total Protein 6.4 L Albumin 3.5 Hold Green Top See Note Influenza Type A (PCR) NEGATIVE Influenza Type B (PCR) NEGATIVE RSV RNA Qual (PCR) NEGATIVE SARS-CoV-2 RNA (RT-PCR) POSITIVE A 01/26/23 01/26/23 01/26/23 16:27 20:08 20:25 MCV MCH MCHC RDW Plt Count MPV Immature Gran % (Auto) Neut % (Auto) Lymph % (Auto) [place] % (Auto) Eos % (Auto) Baso % (Auto) Lymph # (Auto) [place] # (Auto) Eos # (Auto) Baso # (Auto) Abs Immat Gran (auto) Absolute Neuts (auto) Absolute Nucleated RBC Nucleated RBC % (auto) PT INR APTT Anion Gap 16 Estim Creat Clear Calc 98.7 Estimated GFR > 60 POC Glucose 213 H Random Glucose 230 H Lactic Acid Lactic Acid F/U @ 2Hr 2.5 H* Lactic Acid F/U @ 4Hr 2.1 H* Calcium 8.5 D Total Bilirubin Direct Bilirubin AST ALT Alkaline Phosphatase Total Protein Albumin Hold Green Top Influenza Type A (PCR) Influenza Type B (PCR) RSV RNA Qual (PCR) SARS-CoV-2 RNA (RT-PCR) 01/27/23 01/27/23 06:32 07:35 MCV 94.6 MCH 31.4 MCHC 33.1 RDW 11.9 Plt Count 123 L D MPV 9.1 L Immature Gran % (Auto) 0.4 Neut % (Auto) 74.3 H Lymph % (Auto) 19.5 L [place] % (Auto) 5.6 Eos % (Auto) 0.0 Baso % (Auto) 0.2 Lymph # (Auto) 0.9 L [place] # (Auto) 0.3 Eos # (Auto) 0.0 Baso # (Auto) 0.0 Abs Immat Gran (auto) 0.02 Absolute Neuts (auto) 3.4 Absolute Nucleated RBC 0.000 Nucleated RBC % (auto) 0.0 PT INR APTT Anion Gap 11 L Estim Creat Clear Calc 129.3 Estimated GFR > 60 POC Glucose 207 H Random Glucose 258 H Lactic Acid Lactic Acid F/U @ 2Hr Lactic Acid F/U @ 4Hr Calcium 8.1 L Total Bilirubin Direct Bilirubin AST ALT Alkaline Phosphatase Total Protein Albumin Hold Green Top Influenza Type A (PCR) Influenza Type B (PCR) RSV RNA Qual (PCR) SARS-CoV-2 RNA (RT-PCR) Microbiology Microbiology Results: Microbiology 01/26/23 20:25 Gram Stain - Final Sputum - Expectorated Sputum Culture - Preliminary Culture in progress. Assessment and Plan (1) Pneumonia: Status: Acute (2) Hypoxia: Status: Acute (3) Weakness: Status: Acute (4) COVID-19: Status: Acute Plan 67-year-old male with history of sva-yvnjapv-tdhqtxfht type 2 diabetes, hypertension, COPD, hyperlipidemia, history CVA on Plavix, vascular dementia, coronary artery disease, and diabetic polyneuropathy admitted for acute hypoxemic respiratory failure secondary to pneumonia and COVID-19. Left lower lobe pneumonia due to COVID-19 with acute hypoxemic respiratory failure CXR showing retrocardiac LLL pneumonia, positive for COVID-19 mild leucopenia/thrombocytopenia -possible to covid vs dilautional (received fluids) strep pneumo antigen, Legionella antigen, sputum culture pending,blood cultures continue DuoNebs q.4h while awake,IV ceftriaxone and azithromycin (initiated 01/26), supplemental O2 goal sat 92%,Decadron 6 mg daily,IV remdesivir x3, ID consult COPD-no acute exacebration no wheezing on exam duonebs, albuterol prn as above Hypotension- resolved on admission-due to hypovolemia, resolved with IVF No sepsis/severe sepsis/shock hold antihypertensives acute Lactic acidosis likely stavation ketoacidosis due to hypovolemia and metformin use initial lactic acid 7.3, improved of 2.1 with IVF. not severe sepsis. anion gap metabolic acidosis due to starvation ketoacidosis from hypovolemia/dehydration resolved with aggressive IVF Hyponatremia-due to hypovolemia improved with aggressive IVF Generalized weakness -likely r/t COVID-19 -PT eval [id number] type 2 diabetes -POC glucose -diabetic diet -Humulin sliding scale -hold metformin and glimepiride Diabetic polyneuropathy-continue lyrica CLEOPATRA-CPAP at bedtime HLD/CAD -no agnial chest pain,continue statin History CVA-continue plavix Vascular dementia-mentation baseline Cigarette smoker-nicotine patch cessation advised DVT prophylaxis-Lovenox Full code ongoing hospitlisation need: management of acute hypoxemic respiratory failure with COVID pneumonia requiring supplemental O2, IV antibiotics, and renal function/electrolytic monitering He will also require probable placement to STR. Time Spent With Patient Time: Total time managing care of this patient today ____ minutes. Quality Stroke Does the patient have a stroke diagnosis?: No VTE Prior VTE?: No VTE Risk Level:: Medical - moderate - high VTE Device Contraindication: Treatment Not Indicated VTE Drug Contraindication: N/A - Med Ordered
[2023-01-28] VITALS (7 sets, daily range): BP systolic 128–152; BP diastolic 63–89; PULSE 48–89; RESP 16–20; TEMP 36.5–37; O2SAT 8–98
--- NOTE | 2023-01-28 15:21 | HO.PM.IMPN ---
Subjective Subjective Date of Service: 01/28/23 Interval History: pneumonia/covid Review of Systems sob still with minimal excersion,has cough generlaised weak no fever Physical Exam Vital Signs: Vital Signs: Last Vital Signs Temp 97.9 F 01/28/23 15:12 Pulse 60 01/28/23 15:12 Resp 20 01/28/23 15:12 BP 139/63 01/28/23 15:12 Pulse Ox 95 01/28/23 15:12 O2 Del Method Room Air 01/28/23 15:12 O2 Flow Rate 2.5 01/26/23 20:16 BMI result Body Mass Index 25.3 Appearance: Alert.? Oriented X3.? not in distress.? cvs: irregular rythem, [id number] . res: clear to auscultation ,no rhonchii or wheezing abd: no rebound or guarding ,nt, bs present. ext pulses present , no cyanosis . neuro: axo3 , nonfocal. Objective Data Active Medications Acetaminophen (Acetaminophen 325 Mg Tablet) 650 mg PO Q6H PRN PRN Reason: Pain, Mild (Pain Scale 1-3) Last Admin: 01/28/23 08:21 Dose: 650 mg Documented By: JED Albuterol Sulfate (Albuterol Sulfate 90 Mcg 8 Gm Inhaler) 2 puff INHALE RQ4H PRN PRN Reason: Shortness of Breath/Wheezing Albuterol/Ipratropium (Albuterol/Iprat 2.5/0.5mg 3 Ml Ampul.Neb) 3 ml INHALE RQ4H WHILE AWAKE [facility] Last Admin: 01/28/23 11:22 Dose: Not Given Documented By: MACRINA Non-Admin Reason: Patient Refused Ascorbic Acid (Ascorbic Acid 500 Mg Tablet) 500 mg PO DAILY [facility] Last Admin: 01/28/23 08:21 Dose: 500 mg Documented By: JED Atorvastatin Calcium (Atorvastatin Calcium 40 Mg Tablet) 40 mg PO DAILY [facility] Last Admin: 01/28/23 08:22 Dose: 40 mg Documented By: JED Clopidogrel Bisulfate (Clopidogrel Bisulfate 75 Mg Tablet) 75 mg PO DAILY [facility] Last Admin: 01/28/23 08:22 Dose: 75 mg Documented By: JED Dexamethasone (Dexamethasone 6 Mg Tablet) 6 mg PO DAILY [facility] Last Admin: 01/28/23 08:21 Dose: 6 mg Documented By: JED Dextrose (Dextrose 50 % 25 Gm/50 Ml Syringe) 25 gm IVPUSH Q15M PRN; Protocol PRN Reason: per Hypoglycemia Standing Ord. Docusate Sodium (Docusate Sodium 100 Mg Capsule) 100 mg PO DAILY PRN PRN Reason: Constipation Enoxaparin Sodium (Enoxaparin Sodium 40 Mg/0.4 Ml Syringe) 40 mg SUBCUT Q24H [facility] Last Admin: 01/27/23 21:33 Dose: 40 mg Documented By: NINA Glucose (Glucose Gel 15 Gm Gel..Gram.) 15 gm PO Q15M PRN; Protocol PRN Reason: per Hypoglycemia Standing Ord. Guaifenesin (Guaifenesin 200 Mg/10 Ml 10 Ml Liquid) 10 ml PO Q4H [facility] Last Admin: 01/28/23 15:20 Dose: Not Given Documented By: JED Non-Admin Reason: Patient Refused Azithromycin 500 mg/ Sodium (Chloride) 250 mls @ 125 mls/hr IV Q24H [facility] Stop: 01/28/23 21:59 Last Infusion: 01/28/23 08:29 Dose: Infused Documented By: JED Ceftriaxone Sodium 1 gm/ (Sodium Chloride) 50 mls @ 100 mls/hr IV Q24H [facility] Stop: 01/31/23 14:59 Last Infusion: 01/28/23 13:56 Dose: Infused Documented By: JED Remdesivir 100 mg/ Sodium (Chloride) 230 mls @ 115 mls/hr IV Q24H [facility] Stop: 01/28/23 21:59 Last Infusion: 01/28/23 08:29 Dose: Infused Documented By: JED Insulin Human Lispro (Insulin Lispro 100 Unit/Ml 3 Ml Vial) 0 unit SUBCUT QIDACHS [facility]; Protocol Last Admin: 01/28/23 11:30 Dose: Not Given Documented By: JED Non-Admin Reason: No Insulin Coverage Magnesium Oxide (Magnesium Oxide 400 Mg Tablet) 400 mg PO DAILY [facility] Last Admin: 01/28/23 08:22 Dose: 400 mg Documented By: JED Nicotine (Nicotine 14 Mg Patch.Td24) 14 mg TRANSDERMA DAILY [facility] Last Admin: 01/28/23 08:22 Dose: 14 mg Documented By: JED Non-Formulary Medication (Cholecalciferol (Vitamin D3)) 50,000 unit PO FR@0900 [facility] Omeprazole (Omeprazole 20 Mg Capsule.Dr) 40 mg PO DAILY PRN PRN Reason: Acid Reflux Ondansetron HCl (Ondansetron Hcl 4 Mg/2 Ml Vial) 4 mg IVPUSH Q8H PRN PRN Reason: Nausea and Vomiting Pregabalin (Pregabalin 50 Mg Capsule) 50 mg PO BID [facility] Last Admin: 01/28/23 08:22 Dose: 50 mg Documented By: JED Sertraline HCl (Sertraline Hcl 25 Mg Tablet) 25 mg PO DAILY [facility] Last Admin: 01/28/23 08:21 Dose: 25 mg Documented By: JED Sodium Chloride (0.9 % Sodium Chloride Flush 3 Ml Syringe) 3 ml IVFLUSH QSHIFT [facility] Last Admin: 01/28/23 11:51 Dose: 3 ml Documented By: JED Thiamine HCl (Thiamine Hcl 100 Mg Tablet) 100 mg PO DAILY [facility] Last Admin: 01/28/23 08:21 Dose: 100 mg Documented By: JED Labs 01/27/23 06:32 01/27/23 06:32 Labs: Laboratory Results - last 24 hr 01/27/23 01/27/23 01/28/23 16:25 20:14 07:51 POC Glucose 217 H 189 H 168 H 01/28/23 11:10 POC Glucose 148 H Microbiology Microbiology Results: Microbiology 01/26/23 20:38 Urine Culture - Final Urine Catheterized - Straight Catheter No growth. 01/26/23 20:25 Gram Stain - Final Sputum - Expectorated Sputum Culture - Final 01/26/23 14:28 Blood Culture - Preliminary Blood - Venous No growth after 24 hours. 01/26/23 13:54 Blood Culture - Preliminary Blood - Venous No growth after 24 hours. Assessment and Plan (1) Pneumonia: Status: Acute (2) Hypoxia: Status: Acute (3) Weakness: Status: Acute (4) COVID-19: Status: Acute Plan 67-year-old male with history of lev-ntaovel-[id number] type 2 diabetes, hypertension, COPD, hyperlipidemia, history CVA on Plavix, vascular dementia, coronary artery disease, and diabetic polyneuropathy admitted for acute hypoxemic respiratory failure secondary to pneumonia and COVID-19. Left lower lobe pneumonia due to COVID-19 with acute hypoxemic respiratory failure CXR showing retrocardiac LLL pneumonia, positive for COVID-19 mild leucopenia/thrombocytopenia -possible to covid vs dilautional (received fluids) strep pneumo antigen, Legionella antigen, sputum culture pending,blood cultures neg@24hrs continue DuoNebs q.4h while awake,IV ceftriaxone and azithromycin (initiated 01/26), supplemental O2 goal sat 92%,Decadron 6 mg daily,IV remdesivir x3, ID consult COPD-no acute exacebration no wheezing on exam duonebs, albuterol prn as above Hypotension- resolved on admission-though to be due to hypovolemia, resolved with IVF No sepsis/severe sepsis/shock hold antihypertensives acute Lactic acidosis likely stavation ketoacidosis due to hypovolemia and metformin use initial lactic acid 7.3, improved of 2.1 with IVF. not severe sepsis. anion gap metabolic acidosis due to starvation ketoacidosis from hypovolemia/dehydration resolved with aggressive IVF Hyponatremia-due to hypovolemia improved with aggressive IVF Generalized weakness -likely r/t COVID-19 -PT eval sbc-jmnsqva-[id number] type 2 diabetes-fs acceptable. -POC glucose -diabetic diet -Humulin sliding scale -hold metformin and glimepiride Diabetic polyneuropathy-continue lyrica CLEOPATRA-CPAP at bedtime HLD/CAD -no agnial chest pain,continue statin History CVA-continue plavix Vascular dementia-mentation baseline Cigarette smoker-nicotine patch cessation advised DVT prophylaxis-Lovenox Full code ongoing hospitlisation need: management of acute hypoxemic respiratory failure with COVID pneumonia requiring supplemental O2, IV antibiotics, and renal function/electrolytic monitering He will also require probable placement to STR. Time Spent With Patient Time: Total time managing care of this patient today ____ minutes. Quality Stroke Does the patient have a stroke diagnosis?: No VTE Prior VTE?: No VTE Risk Level:: Medical - moderate - high VTE Device Contraindication: Treatment Not Indicated VTE Drug Contraindication: N/A - Med Ordered
[2023-01-28 16:53] LABS: Glucose, Whole Blood 216 mg/dL (60-115)
[2023-01-29] VITALS: BP 163/82; PULSE 50; RESP 20; TEMP 36.3; O2SAT 98
[2023-01-29 04:00] VITALS: BP 169/83; PULSE 55; RESP 18; TEMP 36.1; O2SAT 98
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
[2023-01-29 08:00] VITALS: BP 195/95; PULSE 52; RESP 18; TEMP 36.6; O2SAT 96
--- NOTE | 2023-01-29 11:10 | HO.PM.IMPN ---
Subjective Subjective Date of Service: 01/29/23 Interval History: awake alert answering questions appropriately, denies shortness of breath, complaining of difficulty swallowing and coughing up food, denies fever, no chills, no chest pain, no lightheadedness or dizziness admits to recurrent falls due to bilateral lower extremity weakness. Review of Systems all other system reviewed and negative Physical Exam Vital Signs: Vital Signs: Last Vital Signs Temp 97.8 F 01/29/23 08:00 Pulse 52 01/29/23 08:00 Resp 18 01/29/23 08:00 BP 195/95 H 01/29/23 08:00 Pulse Ox 96 01/29/23 08:00 O2 Del Method Room Air 01/29/23 08:00 O2 Flow Rate 2.5 01/26/23 20:16 BMI result Body Mass Index 25.3 Const: Other: general awake alert in no acute distress answering questions appropriately neck no JVD.? cvs: regular rythem res: clear to auscultation ,no rhonchii or wheezing abd: soft nontender bowel sounds audible ext pulses present , no cyanosis . neuro: axo3 , nonfocal. skin no rash Objective Data Active Medications Acetaminophen (Acetaminophen 325 Mg Tablet) 650 mg PO Q6H PRN PRN Reason: Pain, Mild (Pain Scale 1-3) Last Admin: 01/28/23 18:51 Dose: 650 mg Documented By: JED Albuterol Sulfate (Albuterol Sulfate 90 Mcg 8 Gm Inhaler) 2 puff INHALE RQ4H PRN PRN Reason: Shortness of Breath/Wheezing Albuterol/Ipratropium (Albuterol/Iprat 2.5/0.5mg 3 Ml Ampul.Neb) 3 ml INHALE RQ4H WHILE AWAKE [facility] Last Admin: 01/29/23 07:13 Dose: Not Given Documented By: MACRINA Non-Admin Reason: Patient Refused Ascorbic Acid (Ascorbic Acid 500 Mg Tablet) 500 mg PO DAILY [facility] Last Admin: 01/29/23 08:21 Dose: 500 mg Documented By: ROLAND Atorvastatin Calcium (Atorvastatin Calcium 40 Mg Tablet) 40 mg PO DAILY [facility] Last Admin: 01/29/23 08:21 Dose: 40 mg Documented By: ROLAND Clopidogrel Bisulfate (Clopidogrel Bisulfate 75 Mg Tablet) 75 mg PO DAILY [facility] Last Admin: 01/29/23 08:21 Dose: 75 mg Documented By: ROLAND Dexamethasone (Dexamethasone 6 Mg Tablet) 6 mg PO DAILY [facility] Last Admin: 01/29/23 08:21 Dose: 6 mg Documented By: ROLAND Dextrose (Dextrose 50 % 25 Gm/50 Ml Syringe) 25 gm IVPUSH Q15M PRN; Protocol PRN Reason: per Hypoglycemia Standing Ord. Docusate Sodium (Docusate Sodium 100 Mg Capsule) 100 mg PO DAILY PRN PRN Reason: Constipation Enoxaparin Sodium (Enoxaparin Sodium 40 Mg/0.4 Ml Syringe) 40 mg SUBCUT Q24H [facility] Last Admin: 01/28/23 21:39 Dose: 40 mg Documented By: LAFLAMBrianna Glucose (Glucose Gel 15 Gm Gel..Gram.) 15 gm PO Q15M PRN; Protocol PRN Reason: per Hypoglycemia Standing Ord. Guaifenesin (Guaifenesin 200 Mg/10 Ml 10 Ml Liquid) 10 ml PO Q4H [facility] Last Admin: 01/29/23 08:21 Dose: 10 ml Documented By: ROLAND Ceftriaxone Sodium 1 gm/ (Sodium Chloride) 50 mls @ 100 mls/hr IV Q24H [facility] Stop: 01/31/23 14:59 Last Infusion: 01/28/23 13:56 Dose: Infused Documented By: JED Potassium Chloride/Dextrose (Kcl 20 Meq In 5 % Dextrose) 20 meq in 1,000 mls @ 100 mls/hr IVCONT .Q10H [facility] Stop: 01/29/23 18:59 Insulin Human Lispro (Insulin Lispro 100 Unit/Ml 3 Ml Vial) 0 unit SUBCUT QIDACHS [facility]; Protocol Last Admin: 01/29/23 08:15 Dose: Not Given Documented By: ROLAND Non-Admin Reason: No Insulin Coverage Magnesium Oxide (Magnesium Oxide 400 Mg Tablet) 400 mg PO DAILY [facility] Last Admin: 01/28/23 08:22 Dose: 400 mg Documented By: JED Nicotine (Nicotine 14 Mg Patch.Td24) 14 mg TRANSDERMA DAILY [facility] Last Admin: 01/29/23 08:21 Dose: 14 mg Documented By: ROLAND Non-Formulary Medication (Cholecalciferol (Vitamin D3)) 50,000 unit PO FR@0900 [facility] Omeprazole (Omeprazole 20 Mg Capsule.) 40 mg PO DAILY PRN PRN Reason: Acid Reflux Ondansetron HCl (Ondansetron Hcl 4 Mg/2 Ml Vial) 4 mg IVPUSH Q8H PRN PRN Reason: Nausea and Vomiting Pregabalin (Pregabalin 50 Mg Capsule) 50 mg PO BID [facility] Last Admin: 01/29/23 08:21 Dose: 50 mg Documented By: ROLAND Sertraline HCl (Sertraline Hcl 25 Mg Tablet) 25 mg PO DAILY [facility] Last Admin: 01/29/23 08:22 Dose: 25 mg Documented By: ROLAND Sodium Chloride (0.9 % Sodium Chloride Flush 3 Ml Syringe) 3 ml IVFLUSH QSHIFT [facility] Last Admin: 01/29/23 08:22 Dose: 3 ml Documented By: ROLAND Thiamine HCl (Thiamine Hcl 100 Mg Tablet) 100 mg PO DAILY [facility] Last Admin: 01/29/23 08:21 Dose: 100 mg Documented By: ROLAND Labs 01/29/23 05:30 01/29/23 05:30 Labs: Laboratory Results - last 24 hr 01/28/23 01/28/23 01/28/23 11:10 16:50 21:30 MCV MCH MCHC RDW Plt Count MPV Absolute Nucleated RBC Nucleated RBC % (auto) Anion Gap Estim Creat Clear Calc Estimated GFR POC Glucose 148 H 216 H 171 H Random Glucose Calcium Magnesium 01/29/23 01/29/23 05:30 08:03 MCV 93.9 MCH 32.0 MCHC 34.1 RDW 11.6 Plt Count 149 L MPV 9.8 Absolute Nucleated RBC 0.000 Nucleated RBC % (auto) 0.0 Anion Gap 12 Estim Creat Clear Calc 138.9 Estimated GFR > 60 POC Glucose 109 Random Glucose 119 H Calcium 8.2 L Magnesium 1.4 L* Microbiology Microbiology Results: Microbiology 01/26/23 14:28 Blood Culture - Preliminary Blood - Venous No growth after 48 hours. 01/26/23 13:54 Blood Culture - Preliminary Blood - Venous No growth after 48 hours. 01/26/23 20:38 Urine Culture - Final Urine Catheterized - Straight Catheter No growth. 01/26/23 20:25 Gram Stain - Final Sputum - Expectorated Sputum Culture - Final Assessment and Plan (1) COVID-19: Status: Acute (2) Weakness: Status: Acute Plan 67-year-old male with history of hrh-edygyol-lbjbciosj type 2 diabetes, hypertension, COPD, hyperlipidemia, history CVA on Plavix, vascular dementia, coronary artery disease, and diabetic polyneuropathy admitted for acute hypoxemic respiratory failure secondary to pneumonia and COVID-19. COVID-19 with acute hypoxemic respiratory failure and retrocardiac left lower lobe pneumonia mild leucopenia/thrombocytopenia , improving. strep pneumo antigen, Legionella antigen, sputum culture pending,blood cultures neg x4hrs continue DuoNebs q.4h while awake,on IV ceftriaxone and azithromycin (initiated 01/26), supplemental O2 goal sat 92%,Decadron 6 mg D3, s/p IV remdesivir x3d, case discussed with ID she recommend to discontinue IV ceftriaxone and azithromycin to give 5 days of doxycycline, will DC Decadron, no hypoxia COPD-no acute exacebration duonebs, albuterol prn Hypotension- resolved with IV fluid, No sepsis/severe sepsis/shock,noted to have elevated blood pressures will resume lisinopril 5 mg daily hypomagnesemia will replete and follow labs mild hypokalemia will replete ,follow labs acute Lactic acidosis due to hypovolemia and metformin use initial lactic acid 7.3, improved of 2.1 with IVF. not severe sepsis. anion gap metabolic acidosis due to starvation ketoacidosis from hypovolemia/dehydration resolved with aggressive IVF Hyponatremia-due to hypovolemia resolved with IV fluid roi-xlzouhi-zfkexwqfx type 2 diabetes - stable blood sugars continue diabetic diet and insulin sliding scale -hold metformin and glimepiride Diabetic neuropathy-continue lyrica CLEOPATRA-CPAP at bedtime HLD/CAD -no agnial chest pain,continue statin History CVA-continue plavix, obtain speech therapy eval due to episode of coughing up food Vascular dementia-mentation baseline tobacco use disorder continue nicotine patch DVT prophylaxis-Lovenox generalized weakness recurrent falls, seen by PT they recommend short-term rehab, patient recently discharged from [facility] day prior to admission. Full code ongoing hospitlisation need: management of acute hypoxemic respiratory failure with COVID pneumonia requiring supplemental O2, IV antibiotics Time Spent With Patient Time: Total time managing care of this patient today ____ minutes. Quality Stroke Does the patient have a stroke diagnosis?: No VTE Prior VTE?: No VTE Risk Level:: Medical - moderate - high VTE Device Contraindication: Treatment Not Indicated VTE Drug Contraindication: N/A - Med Ordered
[2023-01-29 11:51] VITALS: BP 192/99; PULSE 66; RESP 19; TEMP 36.9; O2SAT 95
--- NOTE | 2023-01-29 13:29 | W.PM.IDCN ---
History of Present Illness Data of Consult Service Date: 01/22/23 Requesting physician: Chalo Devries Primary Care Provider: Unknown Physician HPI Reason for consult: COVID,pneumonia concerns He presents with weakness and fell to ER on 01/26 He has hypotension on arrival. He has air bronchograms on LL. He has procalcitonin of .07. He has COVID and is on room air. Review of Systems Review of Systems: Yes Unobtainable due to mental condition PMFSH Past Medical History Medical History CLEOPATRA on CPAP Seizure disorder Vascular dementia CVA (cerebral vascular accident) COPD (chronic obstructive pulmonary disease) Hypertension Type 2 diabetes mellitus Family History Family history: reviewed and not pertinent Social History Social History Household Members: Significant Other Housing: Apartment Do you presently have visiting nurse or other home services: No Patient Tobacco Use Status: Current everyday Tobacco user Tobacco use type: Cigarette Cigarettes Per Day: 8 Smoked in Last 30 Days: Yes Substance Use Type: Marijuana Substance Use Frequency: Weekly Last Used Substance: Unknown Currently Displaying Signs/Symptoms of Drug Intoxication Withdrawal: No Any prior treatment program specific to substance use: No Have you been hit, kicked, punched, or otherwise hurt by someone within the past year? If so, by whom?: No Do you feel safe in your current relationship?: Yes Is there a partner from a previous relationship who is making you feel unsafe now?: No Are you made to feel afraid or neglected: No Advance Directives: No Advance Directives Information Provided: Yes Do you have a plan to hurt others: No Plan Recently lost weight without trying: No Eating poorly because of decreased appetite: No Nutrition Risks: No Nutritional Risk Poor oral hygiene: No service: No Meds Allergies Allergy/AdvReac Type Severity Reaction Status Date / Time gabapentin [GABAPENTIN] Allergy Unknown N/V Verified 10/03/22 11:01 Penicillins [PENICILLINS] Allergy Unknown RASH Verified 10/03/22 11:01 pregabalin [From LYRICA] Allergy Unknown N/V Verified 10/03/22 11:01 cephalosporin Allergy Unknown Itching Uncoded 10/03/22 11:01 Penicillin Allergy Unknown Swelling Uncoded 10/03/22 11:01 Active Medications: Current Medications Acetaminophen (Acetaminophen 325 Mg Tablet) 650 mg PO Q6H PRN PRN Reason: Pain, Mild (Pain Scale 1-3) Last Admin: 01/28/23 18:51 Dose: 650 mg Albuterol Sulfate (Albuterol Sulfate 90 Mcg 8 Gm Inhaler) 2 puff INHALE RQ4H PRN PRN Reason: Shortness of Breath/Wheezing Albuterol/Ipratropium (Albuterol/Iprat 2.5/0.5mg 3 Ml Ampul.Neb) 3 ml INHALE RQ4H WHILE AWAKE [facility] Last Admin: 01/29/23 12:24 Dose: Not Given Ascorbic Acid (Ascorbic Acid 500 Mg Tablet) 500 mg PO DAILY [facility] Last Admin: 01/29/23 08:21 Dose: 500 mg Atorvastatin Calcium (Atorvastatin Calcium 40 Mg Tablet) 40 mg PO DAILY [facility] Last Admin: 01/29/23 08:21 Dose: 40 mg Clopidogrel Bisulfate (Clopidogrel Bisulfate 75 Mg Tablet) 75 mg PO DAILY [facility] Last Admin: 01/29/23 08:21 Dose: 75 mg Dextrose (Dextrose 50 % 25 Gm/50 Ml Syringe) 25 gm IVPUSH Q15M PRN; Protocol PRN Reason: per Hypoglycemia Standing Ord. Docusate Sodium (Docusate Sodium 100 Mg Capsule) 100 mg PO DAILY PRN PRN Reason: Constipation Enoxaparin Sodium (Enoxaparin Sodium 40 Mg/0.4 Ml Syringe) 40 mg SUBCUT Q24H [facility] Last Admin: 01/28/23 21:39 Dose: 40 mg Glucose (Glucose Gel 15 Gm Gel..Gram.) 15 gm PO Q15M PRN; Protocol PRN Reason: per Hypoglycemia Standing Ord. Guaifenesin (Guaifenesin 200 Mg/10 Ml 10 Ml Liquid) 10 ml PO Q4H [facility] Last Admin: 01/29/23 12:31 Dose: Not Given Potassium Chloride/Dextrose (Kcl 20 Meq In 5 % Dextrose) 20 meq in 1,000 mls @ 100 mls/hr IVCONT .Q10H [facility] Stop: 01/29/23 18:59 Doxycycline Hyclate 100 mg/ (Sodium Chloride) 250 mls @ 166.67 mls/hr IV Q12H [facility] Insulin Human Lispro (Insulin Lispro 100 Unit/Ml 3 Ml Vial) 0 unit SUBCUT QIDACHS [facility]; Protocol Last Admin: 01/29/23 12:09 Dose: Not Given Magnesium Oxide (Magnesium Oxide 400 Mg Tablet) 400 mg PO DAILY [facility] Last Admin: 01/28/23 08:22 Dose: 400 mg Nicotine (Nicotine 14 Mg Patch.Td24) 14 mg TRANSDERMA DAILY [facility] Last Admin: 01/29/23 08:21 Dose: 14 mg Non-Formulary Medication (Cholecalciferol (Vitamin D3)) 50,000 unit PO FR@0900 [facility] Omeprazole (Omeprazole 20 Mg Capsule.Dr) 40 mg PO DAILY PRN PRN Reason: Acid Reflux Ondansetron HCl (Ondansetron Hcl 4 Mg/2 Ml Vial) 4 mg IVPUSH Q8H PRN PRN Reason: Nausea and Vomiting Pregabalin (Pregabalin 50 Mg Capsule) 50 mg PO BID [facility] Last Admin: 01/29/23 08:21 Dose: 50 mg Sertraline HCl (Sertraline Hcl 25 Mg Tablet) 25 mg PO DAILY [facility] Last Admin: 01/29/23 08:22 Dose: 25 mg Sodium Chloride (0.9 % Sodium Chloride Flush 3 Ml Syringe) 3 ml IVFLUSH QSHIFT [facility] Last Admin: 01/29/23 08:22 Dose: 3 ml Thiamine HCl (Thiamine Hcl 100 Mg Tablet) 100 mg PO DAILY [facility] Last Admin: 01/29/23 08:21 Dose: 100 mg Home Medications Medication Instructions Recorded Confirmed Last Taken Type ascorbic acid (vitamin C) 500 mg 500 mg PO DAILY 01/26/23 01/26/23 Unknown History tablet (Vitamin C) atorvastatin 40 mg tablet 40 mg PO DAILY 01/26/23 01/26/23 Unknown History cholecalciferol (vitamin D3) 1,250 50,000 unit PO FR@0900 01/26/23 01/26/23 Unknown History mcg (50,000 unit) capsule clopidogrel 75 mg tablet 75 mg PO DAILY 01/26/23 01/26/23 Unknown History glimepiride 4 mg tablet 4 mg PO DAILY 01/26/23 01/26/23 Unknown History lisinopril 5 mg tablet 5 mg PO DAILY 01/26/23 01/26/23 Unknown History magnesium oxide 400 mg (241.3 mg 400 mg PO DAILY 01/26/23 01/26/23 Unknown History magnesium) tablet metformin 1,000 mg tablet 1,000 mg PO BID 01/26/23 01/26/23 Unknown History pantoprazole 40 mg tablet,delayed 40 mg PO DAILY PRN Acid Reflux 01/26/23 01/26/23 Unknown History release pregabalin 50 mg capsule (Lyrica) 50 mg PO BID 01/26/23 01/26/23 Unknown History sertraline 25 mg tablet 25 mg PO DAILY 01/26/23 01/26/23 Unknown History thiamine HCl (vitamin B1) 100 mg 100 mg PO DAILY 01/26/23 01/26/23 Unknown History tablet (Vitamin B-1) Physical Exam Vital Signs: Vital Signs: Last Vital Signs Temp 98.5 F 01/29/23 11:51 Pulse 66 01/29/23 11:51 Resp 19 01/29/23 11:51 BP 192/99 H 01/29/23 11:51 Pulse Ox 95 01/29/23 11:51 O2 Del Method Room Air 01/29/23 11:51 O2 Flow Rate 2.5 01/26/23 20:16 BMI result Body Mass Index 25.3 Const: General: cooperative HEENT: Head: Yes normal to inspection Face and sinus: Yes normal facial exam Mouth: Normal oral and palatal mucosa present Teeth and gingiva: dentition normal Eyes: General: appearance normal, both eyes and all related structures Pupils: Equal, round and reactive pupils present Resp: Effort & Inspection: normal respiratory effort Cardio: Rate: regular rate Rhythm: regular rhythm GI: Palpation (GI): Soft to palpation and nontender : General: Yes no CVA tenderness Back/Spine/Pelvis: Back: no CVA tenderness Skin: General skin exam: no rashes or lesions noted Neuro: General: moves all extremities Cranial nerves: Yes Equal, round and reactive pupils present Extrem: General: Yes normal to inspection Psych: Other: confused Results Labs 01/29/23 05:30 01/29/23 05:30 Labs: Short CBC 01/29/23 Range/Units 05:30 WBC 5.9 (4.8-10.8) X10*3/uL Hgb 11.5 L (14.0-18.0) g/dl Hct 33.7 L (42.0-52.0) % Plt Count 149 L (160-400) X10*3/uL BMP 01/29/23 05:30 Sodium 146 H Potassium 3.2 L Chloride 111 H Carbon Dioxide 26 BUN 9 Creatinine 0.54 Calcium 8.2 L Microbiology Microbiology Results: Microbiology 01/26/23 14:28 Blood - Venous Blood Culture - Preliminary No growth after 48 hours. 01/26/23 13:54 Blood - Venous Blood Culture - Preliminary No growth after 48 hours. 01/26/23 20:38 Urine Catheterized - Straight Catheter Urine Culture - Final No growth. 01/26/23 20:25 Sputum - Expectorated Gram Stain - Final 01/26/23 20:25 Sputum - Expectorated Sputum Culture - Final Assessment and Plan (1) Pneumonia: Status: Acute He has no further hypoxia. He has negative procalcitonin. (2) COVID-19: Status: Acute (3) Weakness: Status: Acute Plan Stop Ceftriaxone and Dexamethasone as not hypoxic. Po Doxycycline cover bronchiectasis/pneumonia for five days. Time Spent With Patient Time: Total time managing care of this patient today ____ minutes.
--- NOTE | 2023-01-29 14:22 | MHC.CM.PN ---
PT W/COVID 19, PER HOSPITALIST NO PLAN FOR D/C TODAY, PT TESTED POSITIVE FOR VOCID ON 01/26, RECENT DC FROM [facility] RECOMMENDING STR, MULTIPLE FACILITIES FOLLOWING FOR COVID RECOVERED STATUS, CM WILL CONT TO FOLLOW D/C NEEDS.
[2023-01-29 15:51] VITALS: BP 174/78; PULSE 60; RESP 20; TEMP 37.2; O2SAT 97
[2023-01-29 19:59] VITALS: BP 170/68; PULSE 53; RESP 21; TEMP 37.3; O2SAT 97
[2023-01-30] VITALS: BP 167/74; PULSE 56; RESP 18; TEMP 36.7; O2SAT 98
[2023-01-30] MEDS: OLANZapine 10 MG VIAL 5 MG IM ×2 (00:40→20:58)
[2023-01-30 04:00] VITALS: BP 145/70; PULSE 51; RESP 20; TEMP 36.3; O2SAT 94
[2023-01-30 07:17] VITALS: BP 158/70; PULSE 47; RESP 18; TEMP 36.4; O2SAT 95
[2023-01-30 08:47] LABS: Anion Gap 14 (12-20); Blood Urea Nitrogen 10 mg/dL (9-16); Calcium 8.8 mg/dL (8.4-10.2); Carbon Dioxide 22 mmol/L (22-29); Chloride 110 mmol/L (96-108); Creatinine Clr Calc Pharmacy 144.2; Estimated Glomerular Filt Rate > 60; Glucose Random 107 mg/dL (60-115); Magnesium 1.7 mg/dL (1.6-2.6); Potassium 3.4 mmol/L (3.3-5.1); Sodium 143 mmol/L (135-145)
--- NOTE | 2023-01-30 10:32 | MHC.CM.PN ---
EMR REVIEWED, PT W/COVID 19, PER HOSPITALIST PT CAN BE CLEARED FOR D/C PENDING STR PLACEMENT, CM STILL AWAITING BED OFFER FOR COVID POSITIVE, [facility] FOLLOWING FOR COVID RECOVERED BED, SNF REFERRAL UPDATED, CM WILL CONT TO FOLLOW D/C NEEDS.
[2023-01-30 11:09] VITALS: BP 167/75; PULSE 60; RESP 20; TEMP 36.7; O2SAT 97
--- NOTE | 2023-01-30 12:25 | HO.PM.IMPN ---
Subjective Subjective Date of Service: 01/30/23 Interval History: feels tired otherwise offers no acute complaints refusing DuoNeb, denies shortness of breath, no bowel movement in last 4-5 days feels constipated, no nausea, no vomiting being evaluated by speech therapy required to assist walking to bathroom and back, no acute events overnight. Review of Systems All other system reviewed and negative. Physical Exam Vital Signs: Vital Signs: Last Vital Signs Temp 98.0 F 01/30/23 11:09 Pulse 60 01/30/23 11:09 Resp 20 01/30/23 11:09 BP 167/75 H 01/30/23 11:09 Pulse Ox 97 01/30/23 11:09 O2 Del Method Room Air 01/30/23 11:09 O2 Flow Rate 2.5 01/26/23 20:16 BMI result Body Mass Index 25.3 Const: Other: general awake alert in no acute distress answering questions appropriately neck no JVD.? cvs: regular rythem res: clear to auscultation ,no rhonchii or wheezing abd: soft nontender bowel sounds audible ext pulses present , no cyanosis . neuro: axo3 , nonfocal. skin no rash psych appropriate affect Objective Data Active Medications Acetaminophen (Acetaminophen 325 Mg Tablet) 650 mg PO Q6H PRN PRN Reason: Pain, Mild (Pain Scale 1-3) Last Admin: 01/28/23 18:51 Dose: 650 mg Documented By: JED Albuterol Sulfate (Albuterol Sulfate 90 Mcg 8 Gm Inhaler) 2 puff INHALE RQ4H PRN PRN Reason: Shortness of Breath/Wheezing Albuterol/Ipratropium (Albuterol/Iprat 2.5/0.5mg 3 Ml Ampul.Neb) 3 ml INHALE RQ4H WHILE AWAKE [facility] Last Admin: 01/30/23 12:04 Dose: Not Given Documented By: PARRIS Non-Admin Reason: Patient Refused Ascorbic Acid (Ascorbic Acid 500 Mg Tablet) 500 mg PO DAILY [facility] Last Admin: 01/30/23 08:23 Dose: 500 mg Documented By: ROLAND Atorvastatin Calcium (Atorvastatin Calcium 40 Mg Tablet) 40 mg PO DAILY [facility] Last Admin: 01/30/23 08:23 Dose: 40 mg Documented By: ROLAND Clopidogrel Bisulfate (Clopidogrel Bisulfate 75 Mg Tablet) 75 mg PO DAILY [facility] Last Admin: 01/30/23 08:23 Dose: 75 mg Documented By: ROLAND Dextrose (Dextrose 50 % 25 Gm/50 Ml Syringe) 25 gm IVPUSH Q15M PRN; Protocol PRN Reason: per Hypoglycemia Standing Ord. Docusate Sodium (Docusate Sodium 100 Mg Capsule) 100 mg PO DAILY PRN PRN Reason: Constipation Docusate Sodium (Docusate Sodium 100 Mg Capsule) 200 mg PO DAILY [facility] Last Admin: 01/30/23 11:28 Dose: 200 mg Documented By: ROLAND Enoxaparin Sodium (Enoxaparin Sodium 40 Mg/0.4 Ml Syringe) 40 mg SUBCUT Q24H [facility] Last Admin: 01/29/23 20:58 Dose: 40 mg Documented By: TAVO Glucose (Glucose Gel 15 Gm Gel..Gram.) 15 gm PO Q15M PRN; Protocol PRN Reason: per Hypoglycemia Standing Ord. Guaifenesin (Guaifenesin 200 Mg/10 Ml 10 Ml Liquid) 10 ml PO Q4H [facility] Last Admin: 01/30/23 11:27 Dose: 10 ml Documented By: ROLAND Doxycycline Hyclate 100 mg/ (Sodium Chloride) 250 mls @ 166.67 mls/hr IV Q12H [facility] Last Infusion: 01/30/23 03:41 Dose: Infused Documented By: TATI Insulin Human Lispro (Insulin Lispro 100 Unit/Ml 3 Ml Vial) 0 unit SUBCUT QIDACHS [facility]; Protocol Last Admin: 01/30/23 11:27 Dose: 2 unit Documented By: ROLAND Magnesium Oxide (Magnesium Oxide 400 Mg Tablet) 400 mg PO DAILY [facility] Last Admin: 01/28/23 08:22 Dose: 400 mg Documented By: ANASTASIIA-RIVLA Nicotine (Nicotine 14 Mg Patch.Td24) 14 mg TRANSDERMA DAILY [facility] Last Admin: 01/30/23 08:23 Dose: 14 mg Documented By: ROLAND Non-Formulary Medication (Cholecalciferol (Vitamin D3)) 50,000 unit PO FR@0900 [facility] Omeprazole (Omeprazole 20 Mg Capsule.Dr) 40 mg PO DAILY PRN PRN Reason: Acid Reflux Ondansetron HCl (Ondansetron Hcl 4 Mg/2 Ml Vial) 4 mg IVPUSH Q8H PRN PRN Reason: Nausea and Vomiting Pregabalin (Pregabalin 50 Mg Capsule) 50 mg PO BID [facility] Last Admin: 01/30/23 08:23 Dose: 50 mg Documented By: ROLAND Sertraline HCl (Sertraline Hcl 25 Mg Tablet) 25 mg PO DAILY [facility] Last Admin: 01/30/23 08:23 Dose: 25 mg Documented By: ROLAND Sodium Chloride (0.9 % Sodium Chloride Flush 3 Ml Syringe) 3 ml IVFLUSH QSHIFT [facility] Last Admin: 01/30/23 08:23 Dose: 3 ml Documented By: ROLAND Thiamine HCl (Thiamine Hcl 100 Mg Tablet) 100 mg PO DAILY [facility] Last Admin: 01/30/23 08:23 Dose: 100 mg Documented By: ROLAND Labs 01/29/23 05:30 01/30/23 07:41 Labs: Laboratory Results - last 24 hr 01/29/23 01/29/23 01/29/23 05:30 16:16 21:21 Anion Gap Estim Creat Clear Calc Estimated GFR POC Glucose 162 H 194 H Random Glucose Calcium Magnesium Procalcitonin 0.07 01/30/23 01/30/23 01/30/23 07:20 07:41 11:10 Anion Gap 14 Estim Creat Clear Calc 144.2 Estimated GFR > 60 POC Glucose 117 H 174 H Random Glucose 107 Calcium 8.8 D Magnesium 1.7 Procalcitonin Assessment and Plan (1) COVID-19: Status: Acute (2) Weakness: Status: Acute Plan 67-year-old male with history of [id number] type 2 diabetes, hypertension, COPD, hyperlipidemia, history CVA on Plavix, vascular dementia, coronary artery disease, and diabetic polyneuropathy admitted for acute hypoxemic respiratory failure secondary to pneumonia and COVID-19. COVID-19 with acute hypoxemic respiratory failure and retrocardiac left lower lobe pneumonia strep pneumo antigen, Legionella antigen, pending,blood cultures neg x4hrs continue DuoNebs q.4h prn s/p iv ceftriaxone and azithromycin 01/26 to 01/29, s/p,Decadron 6 mg x 3 d, s/p IV remdesivir x3d, case discussed with ID she recommend 5 days of doxycycline d2/5, no hypoxia therefore Decadron discontinued. seen by speech therapy they recommend ground mechanical altered diet with thin liquids pill whole in puree added stool softeners for constipation COPD-no acute exacebration, changed to as needed DuoNebs. Hypotension- resolved with IV fluid, No sepsis ,now elevated blood pressures started back on lisinopril 5 mg daily hypomagnesemia repleted mild hypokalemia repleted acute Lactic acidosis due to hypovolemia and metformin use initial lactic acid 7.3, improved of 2.1 with IVF. no severe sepsis. anion gap metabolic acidosis due to starvation ketoacidosis from hypovolemia/dehydration, resolved with IVF Hyponatremia-due to hypovolemia resolved with IV fluid [id number] type 2 diabetes stable blood sugars continue diabetic diet and insulin sliding scale hold metformin and glimepiride Diabetic neuropathy-continue lyrica CLEOPATRA-CPAP at bedtime HLD/CAD -no agnial chest pain,continue statin History CVA-continue plavix Vascular dementia-mentation baseline tobacco use disorder continue nicotine patch DVT prophylaxis-Lovenox generalized weakness recurrent falls, seen by PT they recommend short-term rehab, patient recently discharged from [facility] day prior to admission. 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 Full code ongoing hospitalization : management of acute hypoxemic respiratory failure with COVID pneumonia. Time Spent With Patient Time: Total time managing care of this patient today ____ minutes. Quality Stroke Does the patient have a stroke diagnosis?: No VTE Prior VTE?: No VTE Risk Level:: Medical - moderate - high VTE Device Contraindication: Treatment Not Indicated VTE Drug Contraindication: N/A - Med Ordered
--- NOTE | 2023-01-30 12:26 | MHC.SL.SWA ---
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 Compensatory Strategies and Precautions to be Taken for Safe Swallow: Sitting Upright (90 deg) No Straw Small Bites and Sips Alternate Liquids/Solids Rate of Ingestion Change Oral Check Avoid Specific Foods Supervision While Eating and Drinking for Safe Swallow: Total Supervision (1:1) Foods to Avoid: Hard, Tough to chew, sticky foods Recommendation for Speech: Inpatient Speech Therapy Comment: Patient seen for bedside swallow evaluation this morning. Patient edentulous; reports difficulty with hard foods. Recommend ground/mech altered solids (NDD2), thin liquids, pills whole in puree. Patient requires full supervision during meals, otherwise presents w/ unsafe eating behaviors resulting in coughing on food. No straw recommended d/t impulsivity. Patient requires cueing to take small bites, slow rate of ingestion, and alternate solids/liquids. Patient able to self-feed, however requires cueing for safe eating and to minimize potential for aspiration. SIEVE GRADER TENDER to continue to follow to monitor for toleration of diet and possible upgrade. RN notified on floor. MD and RN notified via [place]. Dental Ceramist Assistant Clinican/Clinical Fellow: No Supervisory Statement: I have reviewed and agree with the student/clinical fellow's documentation: No Speech Language Pathologist: Brenna Schofield M.A., [facility]-SIEVE GRADER TENDER
--- NOTE | 2023-01-30 13:57 | MHC.SLORD ---
Speech Language Pathology Order Status: Spoke w/ MICROFABRICATION ENGINEER MANAGER following the remainder of lunch after BEVERAGE MANAGER visit. MICROFABRICATION ENGINEER MANAGER reports patient had difficulty w/ lunch tray and was ordered mashed potatoes. Recommend DOWNGRADE to PUREE (NDD1). BEVERAGE MANAGER changed order in Nicole, white board updated. BEVERAGE MANAGER to re-eval tomorrow and upgrade diet if warranted.
[2023-01-30 15:40] VITALS: BP 126/74; PULSE 73; RESP 20; TEMP 37.1; O2SAT 93
[2023-01-30 16:35] LABS: Glucose, Whole Blood 154 mg/dL (60-115)
[2023-01-30] MEDS: guaiFENesin 200 MG/10 ML 10 ML LIQUID PO (17:05)
[2023-01-30] MEDS: Insulin Lispro 100 UNIT/ML 3 ML VIAL SUBCUT (17:05)
[2023-01-30 19:14] VITALS: BP 131/68; PULSE 69; RESP 16; TEMP 37.2; O2SAT 93
[2023-01-30] MEDS: Enoxaparin Sodium 40 MG/0.4 ML SYRINGE SUBCUT (20:27)
[2023-01-30] MEDS: Pregabalin 50 MG CAPSULE PO (20:27)
[2023-01-30 20:52] LABS: Glucose, Whole Blood 101 mg/dL (60-115)
[2023-01-30] MEDS: 0.9 % Sodium Chloride Flush 3 ML SYRINGE IVFLUSH (23:01)
[2023-01-31] VITALS (8 sets, daily range): BP systolic 136–175; BP diastolic 70–84; PULSE 59–73; RESP 16–20; TEMP 36.1–36.8; O2SAT 94–97
[2023-01-31 08:31] LABS: Glucose, Whole Blood 88 mg/dL (60-115)
[2023-01-31] MEDS: guaiFENesin 200 MG/10 ML 10 ML LIQUID PO ×2 (09:56→21:02)
[2023-01-31] MEDS: Nicotine 14 MG PATCH.TD24 TRANSDERMA (09:56)
[2023-01-31] MEDS: Atorvastatin Calcium 40 MG TABLET PO (09:56)
[2023-01-31] MEDS: Ascorbic Acid 500 MG TABLET PO (09:57)
[2023-01-31] MEDS: Pregabalin 50 MG CAPSULE PO ×2 (09:57→21:02)
[2023-01-31] MEDS: Sertraline HCL 25 MG TABLET PO (09:57)
[2023-01-31] MEDS: Thiamine HCL 100 MG TABLET PO (09:57)
[2023-01-31] MEDS: Docusate Sodium 100 MG CAPSULE 200 MG PO (09:57)
[2023-01-31] MEDS: Clopidogrel Bisulfate 75 MG TABLET PO (09:57)
[2023-01-31 11:31] LABS: Glucose, Whole Blood 154 mg/dL (60-115)
[2023-01-31] MEDS: Insulin Lispro 100 UNIT/ML 3 ML VIAL SUBCUT ×2 (13:08→18:25)
[2023-01-31 13:37] LABS: COVID-19 Test Positive (Negative); IDNOW Serial# 9DB6401D
--- NOTE | 2023-01-31 14:49 | P.PNIM_ITS ---
Subjective Subjective Date of Service: 01/31/23 Interval History: Doing fine, no respiratory issues, covid still positive Physical Exam 2 Vital Signs: Vital Signs: Last Vital Signs Temp 97.2 F 01/31/23 11:40 Pulse 66 01/31/23 11:40 Resp 16 01/31/23 11:40 BP 136/76 01/31/23 11:40 Pulse Ox 94 01/31/23 11:40 O2 Del Method Room Air 01/31/23 11:40 O2 Flow Rate 2.5 01/26/23 20:16 BMI result Body Mass Index 25.3 Const: Other: general awake alert in no acute distress answering questions appropriately neck no JVD.? cvs: regular rythem res: clear to auscultation ,no rhonchii or wheezing abd: soft nontender bowel sounds audible ext pulses present , no cyanosis . neuro: axo3 , nonfocal. skin no rash psych appropriate affect Objective Data Active Medications Acetaminophen (Acetaminophen 325 Mg Tablet) 650 mg PO Q6H PRN PRN Reason: Pain, Mild (Pain Scale 1-3) Last Admin: 01/28/23 18:51 Dose: 650 mg Documented By: JED Albuterol Sulfate (Albuterol Sulfate 90 Mcg 8 Gm Inhaler) 2 puff INHALE RQ4H PRN PRN Reason: Shortness of Breath/Wheezing Albuterol/Ipratropium (Albuterol/Iprat 2.5/0.5mg 3 Ml Ampul.Neb) 3 ml INHALE RQ4H WHILE AWAKE [facility] Last Admin: 01/31/23 11:33 Dose: Not Given Documented By: AFSANEH Non-Admin Reason: Patient Refused Ascorbic Acid (Ascorbic Acid 500 Mg Tablet) 500 mg PO DAILY [facility] Last Admin: 01/31/23 09:57 Dose: 500 mg Documented By: FABRIZIO Atorvastatin Calcium (Atorvastatin Calcium 40 Mg Tablet) 40 mg PO DAILY [facility] Last Admin: 01/31/23 09:56 Dose: 40 mg Documented By: FABRIZIO Clopidogrel Bisulfate (Clopidogrel Bisulfate 75 Mg Tablet) 75 mg PO DAILY [facility] Last Admin: 01/31/23 09:57 Dose: 75 mg Documented By: FABRIZIO Dextrose (Dextrose 50 % 25 Gm/50 Ml Syringe) 25 gm IVPUSH Q15M PRN; Protocol PRN Reason: per Hypoglycemia Standing Ord. Docusate Sodium (Docusate Sodium 100 Mg Capsule) 100 mg PO DAILY PRN PRN Reason: Constipation Docusate Sodium (Docusate Sodium 100 Mg Capsule) 200 mg PO DAILY [facility] Last Admin: 01/31/23 09:57 Dose: 200 mg Documented By: FABRIZIO Enoxaparin Sodium (Enoxaparin Sodium 40 Mg/0.4 Ml Syringe) 40 mg SUBCUT Q24H [facility] Last Admin: 01/30/23 20:27 Dose: 40 mg Documented By: TAVO Glucose (Glucose Gel 15 Gm Gel..Gram.) 15 gm PO Q15M PRN; Protocol PRN Reason: per Hypoglycemia Standing Ord. Guaifenesin (Guaifenesin 200 Mg/10 Ml 10 Ml Liquid) 10 ml PO Q4H [facility] Last Admin: 01/31/23 12:53 Dose: Not Given Documented By: FABRIZIO Non-Admin Reason: Patient Condition Contraindication Doxycycline Hyclate 100 mg/ (Sodium Chloride) 250 mls @ 166.67 mls/hr IV Q12H [facility] Last Admin: 01/31/23 13:03 Dose: 166.67 mls/hr Documented By: FABRIZIO Insulin Human Lispro (Insulin Lispro 100 Unit/Ml 3 Ml Vial) 0 unit SUBCUT QIDACHS [facility]; Protocol Last Admin: 01/31/23 13:08 Dose: 2 unit Documented By: FABRIZIO Magnesium Oxide (Magnesium Oxide 400 Mg Tablet) 400 mg PO DAILY [facility] Last Admin: 01/28/23 08:22 Dose: 400 mg Documented By: ANASTASIIA-CRLA Nicotine (Nicotine 14 Mg Patch.Td24) 14 mg TRANSDERMA DAILY [facility] Last Admin: 01/31/23 09:56 Dose: 14 mg Documented By: FABRIZIO Non-Formulary Medication (Cholecalciferol (Vitamin D3)) 50,000 unit PO FR@0900 [facility] Omeprazole (Omeprazole 20 Mg Capsule.) 40 mg PO DAILY PRN PRN Reason: Acid Reflux Ondansetron HCl (Ondansetron Hcl 4 Mg/2 Ml Vial) 4 mg IVPUSH Q8H PRN PRN Reason: Nausea and Vomiting Pregabalin (Pregabalin 50 Mg Capsule) 50 mg PO BID [facility] Last Admin: 01/31/23 09:57 Dose: 50 mg Documented By: FABRIZIO Sertraline HCl (Sertraline Hcl 25 Mg Tablet) 25 mg PO DAILY [facility] Last Admin: 01/31/23 09:57 Dose: 25 mg Documented By: FABRIZIO Sodium Chloride (0.9 % Sodium Chloride Flush 3 Ml Syringe) 3 ml IVFLUSH QSHIFT [facility] Last Admin: 01/31/23 08:28 Dose: Not Given Documented By: AFSANEH Non-Admin Reason: Patient Refused Thiamine HCl (Thiamine Hcl 100 Mg Tablet) 100 mg PO DAILY [facility] Last Admin: 01/31/23 09:57 Dose: 100 mg Documented By: FABRIZIO Labs 01/29/23 05:30 01/30/23 07:41 Labs: Laboratory Results - last 24 hr 01/30/23 01/30/23 01/31/23 16:31 20:26 07:42 POC Glucose 154 H 101 88 COVID-19 ([facility]) COVID-19 Clin Com 01/31/23 01/31/23 11:16 13:10 POC Glucose 154 H COVID-19 ([facility]) Positive A COVID-19 Clin Com See Note Assessment and Plan (1) COVID-19: Status: Acute (2) Weakness: Status: Acute Plan 67-year-old male with history of xiy-edsxfvu-osscozmer type 2 diabetes, hypertension, COPD, hyperlipidemia, history CVA on Plavix, vascular dementia, coronary artery disease, and diabetic polyneuropathy admitted for acute hypoxemic respiratory failure secondary to pneumonia and COVID-19. COVID-19 with acute hypoxemic respiratory failure and retrocardiac left lower lobe pneumonia strep pneumo antigen, Legionella antigen, pending,blood cultures neg x4hrs continue DuoNebs q.4h prn s/p iv ceftriaxone and azithromycin 01/26 to 01/29, s/p,Decadron 6 mg x 3 d, s/p IV remdesivir x3d, ID she recommend 5 days of doxycycline d3/5, no hypoxia, off decadron speech therapy recommend ground mechanical altered diet with thin liquids pill whole in puree stool softeners for constipation COPD-no acute exacebration, changed to as needed DuoNebs. Hypotension- resolved with IV fluid, No sepsis ,now elevated blood pressures started back on lisinopril 5 mg daily hypomagnesemia repleted mild hypokalemia repleted acute Lactic acidosis due to hypovolemia and metformin use initial lactic acid 7.3, improved of 2.1 with IVF. no severe sepsis. anion gap metabolic acidosis due to starvation ketoacidosis from hypovolemia/dehydration, resolved with IVF Hyponatremia-due to hypovolemia resolved with IV fluid qnp-vcznvcp-zyhqsnali type 2 diabetes stable blood sugars continue diabetic diet and insulin sliding scale hold metformin and glimepiride Diabetic neuropathy-continue lyrica CLEOPATRA-CPAP at bedtime HLD/CAD -no agnial chest pain,continue statin History CVA-continue plavix Vascular dementia-mentation baseline tobacco use disorder continue nicotine patch DVT prophylaxis-Lovenox generalized weakness recurrent falls, seen by PT they recommend short-term rehab, patient recently discharged from [facility] day prior to admission. 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 Full code ongoing hospitalization : SNF wants negative covid test before discharge Time Spent With Patient Time: Total time managing care of this patient today ____ minutes. Quality Stroke Does the patient have a stroke diagnosis?: No VTE Prior VTE?: No VTE Risk Level:: Medical - moderate - high VTE Device Contraindication: Treatment Not Indicated VTE Drug Contraindication: N/A - Med Ordered
--- NOTE | 2023-01-31 15:45 | MHC.CM.PN ---
Pt tested again for covid-19 and remains positive. Pt unable to D/C to [facility] due to no bed offers. [facility] following and can consider on pts day 11 of covid/when recovered. CM will continue to follow.
[2023-01-31 16:17] LABS: Glucose, Whole Blood 176 mg/dL (60-115)
--- NOTE | 2023-01-31 16:46 | MHC.SL.SWA ---
Speech Pathologist Impression: Risk of Aspiration Due to: Neurological Condition Reduced Cognition Dysphasia Diet Status: Recommend UPGRADE diet to Chopped/Advanced, continue with thin liquids, pills whole in puree or with liquid. Liquid Consistency and Strategies for Safe Swallow: Liquid Intake Recommendation: Thin Liquid Intake Strategies: Small Sips No Straws Solid Food Consistency: Dietary Recommendations: Chopped/Advanced (NDD3) Additional Modifications to Solid Foods: Patient at a minimum, requires periodic supervision, with care at the start of the meal to make sure all containers are open and easily accessible, that patient has a towel or covering to catch dropped food, and that patient is monitored for not eating too quickly, as patient presents as impulsive and confused. Oral Medication Intake: Whole with Puree Please contact the pharmacy regarding appropriate crushable or liquid drug formulations that are available whenever modified delivery is recommended. Compensatory Strategies and Precautions to be Taken for Safe Swallow: Sitting Upright (90 deg) No Straw Liquids from Cup Small Bites and Sips Rate of Ingestion Change Supervision While Eating and Drinking for Safe Swallow: Intermittent Supervision Foods to Avoid: Hard, Tough to chew, sticky foods Swallowing Recommended Treatments: Compens. Strategy Educat. Recommendation for Speech: Inpatient Speech Therapy Comment: Patient was seen during lunch, which he had eaten most of independently when TOUCH UP PAINTER HAND entered room. Patient was seated upright in bed, was feeding self, had spilled some food on his front. Liquids had not yet been accessed, were still closed in containers on tray. Patient was taking purees on tray by tsp, eating at a somewhat rapid rate, minimally acknowledge TOUCH UP PAINTER HAND. Patient picked up sealed juice container and attempted to drink from it. TOUCH UP PAINTER HAND then opened juice, put it in a cup, which patient then immediately drank, taking several sips. Patient's Antonia mariola was also opened, put into a cup, which patient sipped, then said I don't like that, I want more juice. TOUCH UP PAINTER HAND retrieved more juice for patient, poured out of container into cup, which patient then drank. On all liquids, though taking serial sips, no clinical signs of aspiration. No clinical signs of aspiration on puree, although eating at a rapid rate. Patient was offered softened cracker in pudding, which patient scooped with spoon and ate, producing a rotary chew, normal oral phase, timely swallow. Patient then picked up remaining abiola cracker, dipped it in apple juice and bit off a piece, producing a rotary chew, appropriate oral management, timely swallow. Patient consumed the rest of the abiola cracker in this manner. Recommend UPGRADE diet to Chopped/Advanced, continue with thin liquids, pills whole in puree or with liquid. Patient at a minimum, requires periodic supervision, with care at the start of the meal to make sure all containers are open and easily accessible, that patient has a towel or covering to catch dropped food, and that patient is monitored for not eating too quickly, as patient presents as impulsive and confused. Frequency/Duration: Date Range for Service Req: Timeline to reassess: Side Stapler Clinican/Clinical Fellow: No Supervisory Statement: I have reviewed and agree with the student/clinical fellow's documentation: N/A Speech Language Pathologist: Delfina Mims M.A., CCC-TOUCH UP PAINTER HAND
[2023-01-31] MEDS: Enoxaparin Sodium 40 MG/0.4 ML SYRINGE SUBCUT (18:25)
[2023-01-31 20:43] LABS: Glucose, Whole Blood 118 mg/dL (60-115)
[2023-01-31] MEDS: 0.9 % Sodium Chloride Flush 3 ML SYRINGE IVFLUSH (21:03)
[2023-02-01] MEDS: guaiFENesin 200 MG/10 ML 10 ML LIQUID PO ×4 (02:40→17:32)
[2023-02-01 03:37] VITALS: BP 161/67; PULSE 72; RESP 18; TEMP 36.4; O2SAT 97
[2023-02-01] MEDS: OLANZapine 10 MG VIAL 5 MG IM (04:23)
[2023-02-01 08:00] VITALS: BP 175/74; PULSE 56; RESP 19; TEMP 36.4; O2SAT 98
[2023-02-01 08:41] LABS: Glucose, Whole Blood 173 mg/dL (60-115)
[2023-02-01] MEDS: Thiamine HCL 100 MG TABLET PO (08:49)
[2023-02-01] MEDS: Clopidogrel Bisulfate 75 MG TABLET PO (08:49)
[2023-02-01] MEDS: Ascorbic Acid 500 MG TABLET PO (08:49)
[2023-02-01] MEDS: Docusate Sodium 100 MG CAPSULE 200 MG PO (08:49)
[2023-02-01] MEDS: Sertraline HCL 25 MG TABLET PO (08:49)
[2023-02-01] MEDS: Pregabalin 50 MG CAPSULE PO ×2 (08:49→20:09)
[2023-02-01] MEDS: Atorvastatin Calcium 40 MG TABLET PO (08:50)
[2023-02-01] MEDS: 0.9 % Sodium Chloride Flush 3 ML SYRINGE IVFLUSH ×3 (08:50→20:09)
[2023-02-01] MEDS: Nicotine 14 MG PATCH.TD24 TRANSDERMA (09:00)
[2023-02-01 11:22] LABS: COVID-19 Test Positive (Negative); IDNOW Serial# BCCEAD1C
[2023-02-01 11:30] VITALS: BP 148/78; PULSE 75; RESP 20; TEMP 36.7; O2SAT 96
[2023-02-01 11:46] LABS: Glucose, Whole Blood 143 mg/dL (60-115)
--- NOTE | 2023-02-01 12:16 | P.PNIM_ITS ---
Subjective Subjective Date of Service: 02/01/23 Interval History: Doing fine, no respiratory issues, covid still positive Physical Exam 2 Vital Signs: Vital Signs: Last Vital Signs Temp 98.0 F 02/01/23 11:30 Pulse 75 02/01/23 11:30 Resp 20 02/01/23 11:30 BP 148/78 H 02/01/23 11:30 Pulse Ox 96 02/01/23 11:30 O2 Del Method Room Air 02/01/23 11:30 O2 Flow Rate 2.5 01/26/23 20:16 BMI result Body Mass Index 25.3 Const: Other: general awake alert in no acute distress answering questions appropriately neck no JVD.? cvs: regular rythem res: clear to auscultation ,no rhonchii or wheezing abd: soft nontender bowel sounds audible ext pulses present , no cyanosis . neuro: axo3 , nonfocal. skin no rash psych appropriate affect Objective Data Active Medications Acetaminophen (Acetaminophen 325 Mg Tablet) 650 mg PO Q6H PRN PRN Reason: Pain, Mild (Pain Scale 1-3) Last Admin: 01/28/23 18:51 Dose: 650 mg Documented By: JED Albuterol Sulfate (Albuterol Sulfate 90 Mcg 8 Gm Inhaler) 2 puff INHALE RQ4H PRN PRN Reason: Shortness of Breath/Wheezing Albuterol/Ipratropium (Albuterol/Iprat 2.5/0.5mg 3 Ml Ampul.Neb) 3 ml INHALE RQ4H WHILE AWAKE [facility] Last Admin: 02/01/23 11:42 Dose: Not Given Documented By: NURYS Non-Admin Reason: Patient Refused Ascorbic Acid (Ascorbic Acid 500 Mg Tablet) 500 mg PO DAILY [facility] Last Admin: 02/01/23 08:49 Dose: 500 mg Documented By: FABRIZIO Atorvastatin Calcium (Atorvastatin Calcium 40 Mg Tablet) 40 mg PO DAILY [facility] Last Admin: 02/01/23 08:50 Dose: 40 mg Documented By: FABRIZIO Clopidogrel Bisulfate (Clopidogrel Bisulfate 75 Mg Tablet) 75 mg PO DAILY [facility] Last Admin: 02/01/23 08:49 Dose: 75 mg Documented By: FABRIZIO Dextrose (Dextrose 50 % 25 Gm/50 Ml Syringe) 25 gm IVPUSH Q15M PRN; Protocol PRN Reason: per Hypoglycemia Standing Ord. Docusate Sodium (Docusate Sodium 100 Mg Capsule) 100 mg PO DAILY PRN PRN Reason: Constipation Docusate Sodium (Docusate Sodium 100 Mg Capsule) 200 mg PO DAILY [facility] Last Admin: 02/01/23 08:49 Dose: 200 mg Documented By: FABRIZIO Doxycycline Monohydrate (Doxycycline Monohydrate 100 Mg Capsule) 100 mg PO Q12H [facility] Enoxaparin Sodium (Enoxaparin Sodium 40 Mg/0.4 Ml Syringe) 40 mg SUBCUT Q24H [facility] Last Admin: 01/31/23 18:25 Dose: 40 mg Documented By: FABRIZIO Glucose (Glucose Gel 15 Gm Gel..Gram.) 15 gm PO Q15M PRN; Protocol PRN Reason: per Hypoglycemia Standing Ord. Guaifenesin (Guaifenesin 200 Mg/10 Ml 10 Ml Liquid) 10 ml PO Q4H [facility] Last Admin: 02/01/23 08:49 Dose: 10 ml Documented By: FABRIZIO Insulin Human Lispro (Insulin Lispro 100 Unit/Ml 3 Ml Vial) 0 unit SUBCUT QIDACHS [facility]; Protocol Last Admin: 02/01/23 09:02 Dose: Not Given Documented By: FABRIZIO Non-Admin Reason: No Insulin Coverage Magnesium Oxide (Magnesium Oxide 400 Mg Tablet) 400 mg PO DAILY [facility] Last Admin: 01/28/23 08:22 Dose: 400 mg Documented By: ANASTASIIA-RIVLA Nicotine (Nicotine 14 Mg Patch.Td24) 14 mg TRANSDERMA DAILY [facility] Last Admin: 02/01/23 09:00 Dose: 14 mg Documented By: FABRIZIO Omeprazole (Omeprazole 20 Mg Capsule.Dr) 40 mg PO DAILY PRN PRN Reason: Acid Reflux Ondansetron HCl (Ondansetron Hcl 4 Mg/2 Ml Vial) 4 mg IVPUSH Q8H PRN PRN Reason: Nausea and Vomiting Pregabalin (Pregabalin 50 Mg Capsule) 50 mg PO BID [facility] Last Admin: 02/01/23 08:49 Dose: 50 mg Documented By: FABRIZIO Sertraline HCl (Sertraline Hcl 25 Mg Tablet) 25 mg PO DAILY [facility] Last Admin: 02/01/23 08:49 Dose: 25 mg Documented By: FABRIZIO Sodium Chloride (0.9 % Sodium Chloride Flush 3 Ml Syringe) 3 ml IVFLUSH QSHIFT [facility] Last Admin: 02/01/23 08:50 Dose: 3 ml Documented By: FABRIZIO Thiamine HCl (Thiamine Hcl 100 Mg Tablet) 100 mg PO DAILY [facility] Last Admin: 02/01/23 08:49 Dose: 100 mg Documented By: FABRIZIO Labs 01/29/23 05:30 01/30/23 07:41 Labs: Laboratory Results - last 24 hr 01/31/23 01/31/23 01/31/23 13:10 16:09 20:21 POC Glucose 176 H 118 H COVID-19 ([facility]) Positive A COVID-19 Clin Com See Note 02/01/23 02/01/23 02/01/23 08:32 10:59 11:35 POC Glucose 173 H 143 H COVID-19 ([facility]) Positive A COVID-19 Clin Com See Note Microbiology Microbiology Results: Microbiology 01/26/23 14:28 Blood Culture - Final Blood - Venous No growth after 5 days. 01/26/23 13:54 Blood Culture - Final Blood - Venous No growth after 5 days. Assessment and Plan (1) COVID-19: Status: Acute (2) Weakness: Status: Acute Plan 67-year-old male with history of kgx-xqliqsk-okjzxikoh type 2 diabetes, hypertension, COPD, hyperlipidemia, history CVA on Plavix, vascular dementia, coronary artery disease, and diabetic polyneuropathy admitted for acute hypoxemic respiratory failure secondary to pneumonia and COVID-19. COVID-19 with acute hypoxemic respiratory failure and retrocardiac left lower lobe pneumonia strep pneumo antigen, Legionella antigen, pending,blood cultures neg x4hrs continue DuoNebs q.4h prn s/p iv ceftriaxone and azithromycin 01/26 to 01/29, s/p,Decadron 6 mg x 3 d, s/p IV remdesivir x3d, ID she recommend 5 days of doxycycline d3/5, no hypoxia, off decadron speech therapy recommend ground mechanical altered diet with thin liquids pill whole in puree stool softeners for constipation COPD-no acute exacebration, changed to as needed DuoNebs. Hypotension- resolved with IV fluid, No sepsis ,now elevated blood pressures started back on lisinopril 5 mg daily hypomagnesemia repleted mild hypokalemia repleted acute Lactic acidosis due to hypovolemia and metformin use initial lactic acid 7.3, improved of 2.1 with IVF. no severe sepsis. anion gap metabolic acidosis due to starvation ketoacidosis from hypovolemia/dehydration, resolved with IVF Hyponatremia-due to hypovolemia resolved with IV fluid sst-nachrzi-babzykjdc type 2 diabetes stable blood sugars continue diabetic diet and insulin sliding scale hold metformin and glimepiride Diabetic neuropathy-continue lyrica Dysphagia--diet per speech recommendation CLEOPATRA-CPAP at bedtime HLD/CAD -no agnial chest pain,continue statin History CVA-continue plavix Vascular dementia-mentation baseline tobacco use disorder continue nicotine patch DVT prophylaxis-Lovenox generalized weakness recurrent falls, seen by PT they recommend short-term rehab, patient recently discharged from [facility] day prior to admission. case consultant looking for rehab bed. Full code ongoing hospitalization : SNF wants negative covid test before discharge Time Spent With Patient Time: Total time managing care of this patient today ____ minutes. Quality Stroke Does the patient have a stroke diagnosis?: No VTE Prior VTE?: No VTE Risk Level:: Medical - moderate - high VTE Device Contraindication: Treatment Not Indicated VTE Drug Contraindication: N/A - Med Ordered
--- NOTE | 2023-02-01 12:28 | MHC.SL.SWA ---
Speech Pathologist Impression: Risk of aspiration, oropharyngeal dysphagia Risk of Aspiration Due to: Neurological Condition Reduced Cognition Dysphasia Diet Status: Recommend DOWNGRADE diet to GROUND/MECH ALTERED (NDD2), continue with thin liquids, pills whole in puree or with liquid. Liquid Consistency and Strategies for Safe Swallow: Liquid Intake Recommendation: Thin Liquid Intake Strategies: Small Sips Solid Food Consistency: Dietary Recommendations: Grnd/Mech Altered (NDD2) Additional Modifications to Solid Foods: Pt is confused and impulsive. When feeding himself, pt has a tendency to pack food in his mouth. He requires TOTAL SUPERVISION during ALL PO INTAKE, close monitoring including checking of oral cavity, and consistent cues for safe eating behaviors: moisten/soften solids with sauces/gravies, administer one bite at a time, provide cues as needed to chew and swallow, dry swallow to clear residue followed by sip of liquid, oral cavity must be cleared before giving more bites, upright 90 degree position during PO intake and for at least 30 minutes afterwards. Diet downgraded to NDD2- Diet order updated by MARKING CLERK. Oral Medication Intake: Whole with Puree Please contact the pharmacy regarding appropriate crushable or liquid drug formulations that are available whenever modified delivery is recommended. Compensatory Strategies and Precautions to be Taken for Safe Swallow: Sitting Upright (90 deg) No Straw Liquids from Cup Small Bites and Sips Rate of Ingestion Change Supervision While Eating and Drinking for Safe Swallow: Total Supervision (1:1) Foods to Avoid: Hard, Tough to chew, sticky foods Swallowing Recommended Treatments: Compens. Strategy Educat. Recommendation for Speech: Inpatient Speech Therapy Lasting Machine Operator Bed Clinican/Clinical Fellow: No Supervisory Statement: I have reviewed and agree with the student/clinical fellow's documentation: N/A Speech Language Pathologist: Nneka Chua M.A., [facility]-MARKING CLERK
[2023-02-01] MEDS: Doxycycline Monohydrate 100 MG CAPSULE PO (12:29)
--- NOTE | 2023-02-01 15:23 | MHC.CM.PN ---
EMR REVIEWED, CM CONTACTED PT'S MICHAEL AT 3:21PM TO DISCUSS DISPO CM MISSED HER AT BEDSIDE, MICHAEL REPORTS HE IS VERY FEARFUL FROM HIS EXPERIENCE AT [employer] WHERE HE HAD SEVERAL FALLS WHICH ONE WHICH ENDED IN A HIP FX, CM REVIEWED FACILITIES FOLLOWING PT FOR COVID RECOVERED BED [address], [facility], CM WILL FOLLOW UP W/MICHAEL EARLY NEXT WEEK, PT WILL NOT BE COVID RECOVERED UNTIL 02/06/23, CM WILL CONT TO FOLLOW D/C NEEDS.
[2023-02-01 16:00] VITALS: BP 133/78; PULSE 67; RESP 16; TEMP 36.3; O2SAT 97
[2023-02-01 16:17] LABS: Glucose, Whole Blood 138 mg/dL (60-115)
[2023-02-01 19:21] VITALS: BP 142/70; PULSE 71; RESP 18; TEMP 36.3; O2SAT 98
[2023-02-01] MEDS: Enoxaparin Sodium 40 MG/0.4 ML SYRINGE SUBCUT (20:09)
[2023-02-01 20:16] LABS: Glucose, Whole Blood 198 mg/dL (60-115)
[2023-02-01] MEDS: Insulin Lispro 100 UNIT/ML 3 ML VIAL SUBCUT (20:20)
[2023-02-02] VITALS: BP 114/55; PULSE 82; RESP 20; TEMP 36.2; O2SAT 95
[2023-02-02] MEDS: guaiFENesin 200 MG/10 ML 10 ML LIQUID PO ×5 (00:16→20:41)
[2023-02-02] MEDS: Doxycycline Monohydrate 100 MG CAPSULE PO ×3 (00:16→21:25)
[2023-02-02 03:45] VITALS: BP 121/58; PULSE 87; RESP 20; TEMP 36.7; O2SAT 94
[2023-02-02 08:00] VITALS: BP 122/79; PULSE 84; RESP 18; TEMP 36.4; O2SAT 95
[2023-02-02 08:01] LABS: Glucose, Whole Blood 189 mg/dL (60-115)
[2023-02-02] MEDS: Nicotine 14 MG PATCH.TD24 TRANSDERMA (08:48)
[2023-02-02] MEDS: Docusate Sodium 100 MG CAPSULE 200 MG PO (08:48)
[2023-02-02] MEDS: Insulin Lispro 100 UNIT/ML 3 ML VIAL SUBCUT ×3 (08:48→20:40)
[2023-02-02] MEDS: Pregabalin 50 MG CAPSULE PO ×2 (08:49→20:41)
[2023-02-02] MEDS: Thiamine HCL 100 MG TABLET PO (08:49)
[2023-02-02] MEDS: Ascorbic Acid 500 MG TABLET PO (08:49)
[2023-02-02] MEDS: Sertraline HCL 25 MG TABLET PO (08:49)
[2023-02-02] MEDS: 0.9 % Sodium Chloride Flush 3 ML SYRINGE IVFLUSH ×2 (08:49→14:39)
[2023-02-02] MEDS: Atorvastatin Calcium 40 MG TABLET PO (08:49)
[2023-02-02] MEDS: Clopidogrel Bisulfate 75 MG TABLET PO (08:49)
[2023-02-02 11:45] VITALS: BP 146/82; PULSE 95; RESP 18; TEMP 37.1; O2SAT 94
--- NOTE | 2023-02-02 11:47 | P.PNIM_ITS ---
Subjective Subjective Date of Service: 02/02/23 Interval History: Doing fine, no respiratory issues, last covid test on 02/01 was positive Physical Exam 2 Vital Signs: Vital Signs: Last Vital Signs Temp 98.8 F 02/02/23 11:45 Pulse 95 02/02/23 11:45 Resp 18 02/02/23 11:45 BP 146/82 H 02/02/23 11:45 Pulse Ox 94 02/02/23 11:45 O2 Del Method Room Air 02/02/23 11:45 O2 Flow Rate 2.5 01/26/23 20:16 BMI result Body Mass Index 25.3 Const: Other: general awake alert in no acute distress answering questions appropriately neck no JVD.? cvs: regular rythem res: clear to auscultation ,no rhonchii or wheezing abd: soft nontender bowel sounds audible ext pulses present , no cyanosis . neuro: axo3 , nonfocal. skin no rash psych appropriate affect Objective Data Active Medications Acetaminophen (Acetaminophen 325 Mg Tablet) 650 mg PO Q6H PRN PRN Reason: Pain, Mild (Pain Scale 1-3) Last Admin: 01/28/23 18:51 Dose: 650 mg Documented By: JED Albuterol Sulfate (Albuterol Sulfate 90 Mcg 8 Gm Inhaler) 2 puff INHALE RQ4H PRN PRN Reason: Shortness of Breath/Wheezing Albuterol/Ipratropium (Albuterol/Iprat 2.5/0.5mg 3 Ml Ampul.Neb) 3 ml INHALE RQ4H WHILE AWAKE [facility] Last Admin: 02/02/23 11:32 Dose: Not Given Documented By: NURYS Non-Admin Reason: Patient Refused Ascorbic Acid (Ascorbic Acid 500 Mg Tablet) 500 mg PO DAILY [facility] Last Admin: 02/02/23 08:49 Dose: 500 mg Documented By: KHADIJAH Atorvastatin Calcium (Atorvastatin Calcium 40 Mg Tablet) 40 mg PO DAILY [facility] Last Admin: 02/02/23 08:49 Dose: 40 mg Documented By: KHADIJAH Clopidogrel Bisulfate (Clopidogrel Bisulfate 75 Mg Tablet) 75 mg PO DAILY [facility] Last Admin: 02/02/23 08:49 Dose: 75 mg Documented By: KHADIJAH Dextrose (Dextrose 50 % 25 Gm/50 Ml Syringe) 25 gm IVPUSH Q15M PRN; Protocol PRN Reason: per Hypoglycemia Standing Ord. Docusate Sodium (Docusate Sodium 100 Mg Capsule) 100 mg PO DAILY PRN PRN Reason: Constipation Docusate Sodium (Docusate Sodium 100 Mg Capsule) 200 mg PO DAILY [facility] Last Admin: 02/02/23 08:48 Dose: 200 mg Documented By: KHADIJAH Doxycycline Monohydrate (Doxycycline Monohydrate 100 Mg Capsule) 100 mg PO Q12H [facility] Last Admin: 02/02/23 00:16 Dose: 100 mg Documented By: NATHAN Enoxaparin Sodium (Enoxaparin Sodium 40 Mg/0.4 Ml Syringe) 40 mg SUBCUT Q24H [facility] Last Admin: 02/01/23 20:09 Dose: 40 mg Documented By: NATHAN Glucose (Glucose Gel 15 Gm Gel..Gram.) 15 gm PO Q15M PRN; Protocol PRN Reason: per Hypoglycemia Standing Ord. Guaifenesin (Guaifenesin 200 Mg/10 Ml 10 Ml Liquid) 10 ml PO Q4H [facility] Last Admin: 02/02/23 09:33 Dose: 10 ml Documented By: KHADIJAH Insulin Human Lispro (Insulin Lispro 100 Unit/Ml 3 Ml Vial) 0 unit SUBCUT QIDACHS [facility]; Protocol Last Admin: 02/02/23 08:48 Dose: 2 unit Documented By: KHADIJAH Magnesium Oxide (Magnesium Oxide 400 Mg Tablet) 400 mg PO DAILY [facility] Last Admin: 01/28/23 08:22 Dose: 400 mg Documented By: ANASTASIIA-CRLA Nicotine (Nicotine 14 Mg Patch.Td24) 14 mg TRANSDERMA DAILY [facility] Last Admin: 02/02/23 08:48 Dose: 14 mg Documented By: KHADIJAH Omeprazole (Omeprazole 20 Mg Capsule.Dr) 40 mg PO DAILY PRN PRN Reason: Acid Reflux Ondansetron HCl (Ondansetron Hcl 4 Mg/2 Ml Vial) 4 mg IVPUSH Q8H PRN PRN Reason: Nausea and Vomiting Pregabalin (Pregabalin 50 Mg Capsule) 50 mg PO BID [facility] Last Admin: 02/02/23 08:49 Dose: 50 mg Documented By: KHADIJAH Sertraline HCl (Sertraline Hcl 25 Mg Tablet) 25 mg PO DAILY [facility] Last Admin: 02/02/23 08:49 Dose: 25 mg Documented By: KHADIJAH Sodium Chloride (0.9 % Sodium Chloride Flush 3 Ml Syringe) 3 ml IVFLUSH QSHIFT [facility] Last Admin: 02/02/23 08:49 Dose: 3 ml Documented By: KHADIJAH Thiamine HCl (Thiamine Hcl 100 Mg Tablet) 100 mg PO DAILY [facility] Last Admin: 02/02/23 08:49 Dose: 100 mg Documented By: KHADIJAH Labs 01/29/23 05:30 01/30/23 07:41 Labs: Laboratory Results - last 24 hr 02/01/23 02/01/23 02/02/23 16:13 20:09 07:56 POC Glucose 138 H 198 H 189 H Assessment and Plan (1) COVID-19: Status: Acute (2) Weakness: Status: Acute Plan 67-year-old male with history of xtl-obfjvcn-qpdwacybz type 2 diabetes, hypertension, COPD, hyperlipidemia, history CVA on Plavix, vascular dementia, coronary artery disease, and diabetic polyneuropathy admitted for acute hypoxemic respiratory failure secondary to pneumonia and COVID-19. COVID-19 with acute hypoxemic respiratory failure and retrocardiac left lower lobe pneumonia has completed treatment with decadron, remdesevir and Abx, no longer hypoxic COPD-no acute exacebration, bronchodilators as needed HypOtension- resolved , continue lisinopril hypomagnesemia repleted mild hypokalemia repleted acute Lactic acidosis due to hypovolemia and metformin use initial lactic acid 7.3, improved of 2.1 with IVF. no severe sepsis. anion gap metabolic acidosis due to starvation ketoacidosis from hypovolemia/dehydration, resolved with IVF Hyponatremia-due to hypovolemia resolved with IV fluid ccd-zapvovr-fbwmsnvsd type 2 diabetes stable blood sugars continue diabetic diet and insulin sliding scale hold metformin and glimepiride Diabetic neuropathy-continue lyrica Dysphagia--diet per speech recommendation CLEOPATRA-CPAP at bedtime HLD/CAD -no agnial chest pain,continue statin History CVA-continue plavix Vascular dementia-mentation baseline tobacco use disorder continue nicotine patch DVT prophylaxis-Lovenox generalized weakness recurrent falls, seen by PT they recommend short-term rehab, patient recently discharged from [facility] day prior to admission. senior case manager looking for rehab bed. Full code ongoing hospitalization : SNF wants negative covid test before discharge Time Spent With Patient Time: Total time managing care of this patient today ____ minutes. Quality Stroke Does the patient have a stroke diagnosis?: No VTE Prior VTE?: No VTE Risk Level:: Medical - moderate - high VTE Device Contraindication: Treatment Not Indicated VTE Drug Contraindication: N/A - Med Ordered
[2023-02-02 11:53] LABS: Glucose, Whole Blood 115 mg/dL (60-115)
[2023-02-02 12:10] LABS: COVID-19 Test Positive (Negative); IDNOW Serial# BCCEAD1C
[2023-02-02 16:00] VITALS: BP 149/80; PULSE 73; RESP 20; TEMP 36.9; O2SAT 96
[2023-02-02 16:07] LABS: Glucose, Whole Blood 214 mg/dL (60-115)
[2023-02-02 20:00] VITALS: BP 116/85; PULSE 75; RESP 20; TEMP 36.9; O2SAT 96
[2023-02-02 20:30] LABS: Glucose, Whole Blood 190 mg/dL (60-115)
[2023-02-02] MEDS: Enoxaparin Sodium 40 MG/0.4 ML SYRINGE SUBCUT (20:41)
[2023-02-03] VITALS (7 sets, daily range): BP systolic 131–176; BP diastolic 70–80; PULSE 58–88; RESP 17–22; TEMP 36.3–37.1; O2SAT 93–99
[2023-02-03] MEDS: 0.9 % Sodium Chloride Flush 3 ML SYRINGE IVFLUSH ×3 (00:42→16:46)
[2023-02-03 07:43] LABS: Glucose, Whole Blood 98 mg/dL (60-115)
[2023-02-03] MEDS: Clopidogrel Bisulfate 75 MG TABLET PO (08:57)
[2023-02-03] MEDS: Pregabalin 50 MG CAPSULE PO ×2 (08:57→21:06)
[2023-02-03] MEDS: guaiFENesin 200 MG/10 ML 10 ML LIQUID PO ×4 (08:57→22:29)
[2023-02-03] MEDS: Thiamine HCL 100 MG TABLET PO (08:57)
[2023-02-03] MEDS: Nicotine 14 MG PATCH.TD24 TRANSDERMA (08:57)
[2023-02-03] MEDS: Sertraline HCL 25 MG TABLET PO (08:57)
[2023-02-03] MEDS: Atorvastatin Calcium 40 MG TABLET PO (08:57)
[2023-02-03] MEDS: Ascorbic Acid 500 MG TABLET PO (08:57)
[2023-02-03] MEDS: Docusate Sodium 100 MG CAPSULE 200 MG PO (08:57)
[2023-02-03 10:13] LABS: COVID-19 Test Negative (Negative); IDNOW Serial# 08D9AD1C
--- NOTE | 2023-02-03 11:00 | HO.PM.IMPN ---
Subjective Subjective Date of Service: 02/03/23 Interval History: Doing fine, no respiratory issues, last covid test on 02/03 is negative Physical Exam Vital Signs: Vital Signs: Last Vital Signs Temp 97.8 F 02/03/23 07:35 Pulse 74 02/03/23 07:35 Resp 17 02/03/23 07:35 BP 146/78 H 02/03/23 07:35 Pulse Ox 97 02/03/23 07:35 O2 Del Method Room Air 02/03/23 07:35 O2 Flow Rate 2.5 01/26/23 20:16 BMI result Body Mass Index 25.3 Const: Other: general awake alert in no acute distress answering questions appropriately neck no JVD.? cvs: regular rythem res: clear to auscultation ,no rhonchii or wheezing abd: soft nontender bowel sounds audible ext pulses present , no cyanosis . neuro: axo3 , nonfocal. skin no rash psych appropriate affect Objective Data Active Medications Acetaminophen (Acetaminophen 325 Mg Tablet) 650 mg PO Q6H PRN PRN Reason: Pain, Mild (Pain Scale 1-3) Last Admin: 01/28/23 18:51 Dose: 650 mg Documented By: JED Albuterol Sulfate (Albuterol Sulfate 90 Mcg 8 Gm Inhaler) 2 puff INHALE RQ4H PRN PRN Reason: Shortness of Breath/Wheezing Ascorbic Acid (Ascorbic Acid 500 Mg Tablet) 500 mg PO DAILY [facility] Last Admin: 02/03/23 08:57 Dose: 500 mg Documented By: KHADIJAH Atorvastatin Calcium (Atorvastatin Calcium 40 Mg Tablet) 40 mg PO DAILY [facility] Last Admin: 02/03/23 08:57 Dose: 40 mg Documented By: KHADIJAH Clopidogrel Bisulfate (Clopidogrel Bisulfate 75 Mg Tablet) 75 mg PO DAILY [facility] Last Admin: 02/03/23 08:57 Dose: 75 mg Documented By: KHADIJAH Dextrose (Dextrose 50 % 25 Gm/50 Ml Syringe) 25 gm IVPUSH Q15M PRN; Protocol PRN Reason: per Hypoglycemia Standing Ord. Docusate Sodium (Docusate Sodium 100 Mg Capsule) 100 mg PO DAILY PRN PRN Reason: Constipation Docusate Sodium (Docusate Sodium 100 Mg Capsule) 200 mg PO DAILY [facility] Last Admin: 02/03/23 08:57 Dose: 200 mg Documented By: KHADIJAH Doxycycline Monohydrate (Doxycycline Monohydrate 100 Mg Capsule) 100 mg PO Q12H [facility] Last Admin: 02/02/23 21:25 Dose: 100 mg Documented By: ANTONIO Enoxaparin Sodium (Enoxaparin Sodium 40 Mg/0.4 Ml Syringe) 40 mg SUBCUT Q24H [facility] Last Admin: 02/02/23 20:41 Dose: 40 mg Documented By: ANTONIO Glucose (Glucose Gel 15 Gm Gel..Gram.) 15 gm PO Q15M PRN; Protocol PRN Reason: per Hypoglycemia Standing Ord. Guaifenesin (Guaifenesin 200 Mg/10 Ml 10 Ml Liquid) 10 ml PO Q4H [facility] Last Admin: 02/03/23 08:57 Dose: 10 ml Documented By: KHADIJAH Insulin Human Lispro (Insulin Lispro 100 Unit/Ml 3 Ml Vial) 0 unit SUBCUT QIDACHS [facility]; Protocol Last Admin: 02/03/23 08:44 Dose: Not Given Documented By: KHADIJAH Non-Admin Reason: No Insulin Coverage Comments: per sliding scale Magnesium Oxide (Magnesium Oxide 400 Mg Tablet) 400 mg PO DAILY [facility] Last Admin: 01/28/23 08:22 Dose: 400 mg Documented By: ANASTASIIA-RIVLA Nicotine (Nicotine 14 Mg Patch.Td24) 14 mg TRANSDERMA DAILY [facility] Last Admin: 02/03/23 08:57 Dose: 14 mg Documented By: KHADIJAH Omeprazole (Omeprazole 20 Mg Capsule.Dr) 40 mg PO DAILY PRN PRN Reason: Acid Reflux Ondansetron HCl (Ondansetron Hcl 4 Mg/2 Ml Vial) 4 mg IVPUSH Q8H PRN PRN Reason: Nausea and Vomiting Pregabalin (Pregabalin 50 Mg Capsule) 50 mg PO BID [facility] Last Admin: 02/03/23 08:57 Dose: 50 mg Documented By: KHADIJAH Sertraline HCl (Sertraline Hcl 25 Mg Tablet) 25 mg PO DAILY [facility] Last Admin: 02/03/23 08:57 Dose: 25 mg Documented By: KHADIJAH Sodium Chloride (0.9 % Sodium Chloride Flush 3 Ml Syringe) 3 ml IVFLUSH QSHIFT [facility] Last Admin: 02/03/23 08:57 Dose: 3 ml Documented By: KHADIJAH Thiamine HCl (Thiamine Hcl 100 Mg Tablet) 100 mg PO DAILY [facility] Last Admin: 02/03/23 08:57 Dose: 100 mg Documented By: KHADIJAH Labs 01/29/23 05:30 01/30/23 07:41 Labs: Laboratory Results - last 24 hr 02/02/23 02/02/23 02/02/23 11:40 11:47 16:03 POC Glucose 115 214 H COVID-19 ([facility]) Positive A COVID-19 Clin Com See Note 02/02/23 02/03/23 02/03/23 20:25 07:38 09:26 POC Glucose 190 H 98 COVID-19 ([facility]) Negative COVID-19 Clin Com See Note Assessment and Plan (1) COVID-19: Status: Acute (2) Weakness: Status: Acute Plan 67-year-old male with history of dfi-fpiihxr-knmxlwkvw type 2 diabetes, hypertension, COPD, hyperlipidemia, history CVA on Plavix, vascular dementia, coronary artery disease, and diabetic polyneuropathy admitted for acute hypoxemic respiratory failure secondary to pneumonia and COVID-19. COVID-19 with acute hypoxemic respiratory failure and retrocardiac left lower lobe pneumonia has completed treatment with decadron, remdesevir and Abx, no longer hypoxic, repeat covid is negative today 02/03 COPD-no acute exacebration, bronchodilators as needed HypOtension- resolved , continue lisinopril hypomagnesemia repleted mild hypokalemia repleted acute Lactic acidosis due to hypovolemia and metformin use initial lactic acid 7.3, improved of 2.1 with IVF. no severe sepsis. anion gap metabolic acidosis due to starvation ketoacidosis from hypovolemia/dehydration, resolved with IVF Hyponatremia-due to hypovolemia resolved with IV fluid ogu-wddjain-hwifwwaoc type 2 diabetes stable blood sugars continue diabetic diet and insulin sliding scale hold metformin and glimepiride Diabetic neuropathy-continue lyrica Dysphagia--diet per speech recommendation CLEOPATRA-CPAP at bedtime HLD/CAD -no agnial chest pain,continue statin History CVA-continue plavix Vascular dementia-mentation baseline tobacco use disorder continue nicotine patch DVT prophylaxis-Lovenox generalized weakness recurrent falls, seen by PT they recommend short-term rehab, patient recently discharged from [facility] day prior to admission. rn field case manager looking for rehab bed. Full code ongoing hospitalization : SNF wants negative covid test before discharge Time Spent With Patient Time: Total time managing care of this patient today ____ minutes. Quality Stroke Does the patient have a stroke diagnosis?: No VTE Prior VTE?: No VTE Risk Level:: Medical - moderate - high VTE Device Contraindication: Treatment Not Indicated VTE Drug Contraindication: N/A - Med Ordered
[2023-02-03 11:45] LABS: Glucose, Whole Blood 159 mg/dL (60-115)
[2023-02-03] MEDS: Insulin Lispro 100 UNIT/ML 3 ML VIAL SUBCUT ×2 (12:13→21:05)
[2023-02-03] MEDS: Doxycycline Monohydrate 100 MG CAPSULE PO (12:13)
[2023-02-03 16:02] LABS: Glucose, Whole Blood 127 mg/dL (60-115)
[2023-02-03 20:21] LABS: Glucose, Whole Blood 156 mg/dL (60-115)
[2023-02-03] MEDS: Enoxaparin Sodium 40 MG/0.4 ML SYRINGE SUBCUT (21:05)
[2023-02-04] MEDS: 0.9 % Sodium Chloride Flush 3 ML SYRINGE IVFLUSH ×3 (00:38→17:03)
[2023-02-04] MEDS: Doxycycline Monohydrate 100 MG CAPSULE PO ×3 (00:38→22:09)
[2023-02-04 00:48] LABS: Legionella Ag Urine Not Detected (Not Detected)
[2023-02-04 03:50] VITALS: BP 139/63; PULSE 54; RESP 18; TEMP 36.6; O2SAT 99
[2023-02-04 07:34] VITALS: BP 162/72; PULSE 75; RESP 20; TEMP 36.8; O2SAT 95
[2023-02-04 07:54] LABS: Glucose, Whole Blood 108 mg/dL (60-115)
[2023-02-04] MEDS: guaiFENesin 200 MG/10 ML 10 ML LIQUID PO ×3 (09:26→22:09)
[2023-02-04] MEDS: Clopidogrel Bisulfate 75 MG TABLET PO (09:26)
[2023-02-04] MEDS: Sertraline HCL 25 MG TABLET PO (09:26)
[2023-02-04] MEDS: Ascorbic Acid 500 MG TABLET PO (09:26)
[2023-02-04] MEDS: Nicotine 14 MG PATCH.TD24 TRANSDERMA (09:26)
[2023-02-04] MEDS: Pregabalin 50 MG CAPSULE PO ×2 (09:26→20:30)
[2023-02-04] MEDS: Atorvastatin Calcium 40 MG TABLET PO (09:26)
[2023-02-04] MEDS: Docusate Sodium 100 MG CAPSULE 200 MG PO (09:26)
[2023-02-04] MEDS: Thiamine HCL 100 MG TABLET PO (09:26)
--- NOTE | 2023-02-04 10:46 | MHC.CM.PN ---
EMR REVIEWED, PT TESTED POSTIVE FOR COVID19 YESTERDAY 02/03, HOSPITALIST CLEARING PT FOR D/C, PT'S S.O./HCP CONTACTED AND AGREEABLE TO [facility] W/PLAN FOR HOME ONCE STR IS COMPLETED, CM HAS UPDATED [facility] AND AWAITING RESPONSE, CM WILL CONT TO FOLLOW.
[2023-02-04 10:57] VITALS: BP 129/63; PULSE 70; RESP 20; TEMP 36.9; O2SAT 94
[2023-02-04 11:06] LABS: Glucose, Whole Blood 177 mg/dL (60-115)
[2023-02-04] MEDS: Insulin Lispro 100 UNIT/ML 3 ML VIAL SUBCUT ×2 (12:23→17:03)
--- NOTE | 2023-02-04 12:30 | P.PNIM_ITS ---
Subjective Subjective Date of Service: 02/04/23 Interval History: No new issues, breathing easy Physical Exam 2 Vital Signs: Vital Signs: Last Vital Signs Temp 98.5 F 02/04/23 10:57 Pulse 70 02/04/23 10:57 Resp 20 02/04/23 10:57 BP 129/63 02/04/23 10:57 Pulse Ox 94 02/04/23 10:57 O2 Del Method Room Air 02/04/23 10:57 O2 Flow Rate 2.5 01/26/23 20:16 BMI result Body Mass Index 25.3 Const: Other: general awake alert in no acute distress answering questions appropriately neck no JVD.? cvs: regular rythem res: clear to auscultation ,no rhonchii or wheezing abd: soft nontender bowel sounds audible ext pulses present , no cyanosis . neuro: axo3 , nonfocal. skin no rash psych appropriate affect Objective Data Active Medications Acetaminophen (Acetaminophen 325 Mg Tablet) 650 mg PO Q6H PRN PRN Reason: Pain, Mild (Pain Scale 1-3) Last Admin: 01/28/23 18:51 Dose: 650 mg Documented By: JED Albuterol Sulfate (Albuterol Sulfate 90 Mcg 8 Gm Inhaler) 2 puff INHALE RQ4H PRN PRN Reason: Shortness of Breath/Wheezing Ascorbic Acid (Ascorbic Acid 500 Mg Tablet) 500 mg PO DAILY [facility] Last Admin: 02/04/23 09:26 Dose: 500 mg Documented By: ABEL Atorvastatin Calcium (Atorvastatin Calcium 40 Mg Tablet) 40 mg PO DAILY [facility] Last Admin: 02/04/23 09:26 Dose: 40 mg Documented By: ABEL Clopidogrel Bisulfate (Clopidogrel Bisulfate 75 Mg Tablet) 75 mg PO DAILY [facility] Last Admin: 02/04/23 09:26 Dose: 75 mg Documented By: ABEL Dextrose (Dextrose 50 % 25 Gm/50 Ml Syringe) 25 gm IVPUSH Q15M PRN; Protocol PRN Reason: per Hypoglycemia Standing Ord. Docusate Sodium (Docusate Sodium 100 Mg Capsule) 100 mg PO DAILY PRN PRN Reason: Constipation Docusate Sodium (Docusate Sodium 100 Mg Capsule) 200 mg PO DAILY [facility] Last Admin: 02/04/23 09:26 Dose: 200 mg Documented By: ABEL Doxycycline Monohydrate (Doxycycline Monohydrate 100 Mg Capsule) 100 mg PO Q12H [facility] Last Admin: 02/04/23 12:23 Dose: 100 mg Documented By: ABEL Enoxaparin Sodium (Enoxaparin Sodium 40 Mg/0.4 Ml Syringe) 40 mg SUBCUT Q24H [facility] Last Admin: 02/03/23 21:05 Dose: 40 mg Documented By: LESSARL Glucose (Glucose Gel 15 Gm Gel..Gram.) 15 gm PO Q15M PRN; Protocol PRN Reason: per Hypoglycemia Standing Ord. Guaifenesin (Guaifenesin 200 Mg/10 Ml 10 Ml Liquid) 10 ml PO Q4H [facility] Last Admin: 02/04/23 09:26 Dose: 10 ml Documented By: ABEL Insulin Human Lispro (Insulin Lispro 100 Unit/Ml 3 Ml Vial) 0 unit SUBCUT QIDACHS [facility]; Protocol Last Admin: 02/04/23 12:23 Dose: 2 unit Documented By: ABEL Magnesium Oxide (Magnesium Oxide 400 Mg Tablet) 400 mg PO DAILY [facility] Last Admin: 01/28/23 08:22 Dose: 400 mg Documented By: ANASTASIIA-RIVLA Nicotine (Nicotine 14 Mg Patch.Td24) 14 mg TRANSDERMA DAILY [facility] Last Admin: 02/04/23 09:26 Dose: 14 mg Documented By: ABEL Omeprazole (Omeprazole 20 Mg Capsule.Dr) 40 mg PO DAILY PRN PRN Reason: Acid Reflux Ondansetron HCl (Ondansetron Hcl 4 Mg/2 Ml Vial) 4 mg IVPUSH Q8H PRN PRN Reason: Nausea and Vomiting Pregabalin (Pregabalin 50 Mg Capsule) 50 mg PO BID [facility] Last Admin: 02/04/23 09:26 Dose: 50 mg Documented By: ABEL Sertraline HCl (Sertraline Hcl 25 Mg Tablet) 25 mg PO DAILY [facility] Last Admin: 02/04/23 09:26 Dose: 25 mg Documented By: ABEL Sodium Chloride (0.9 % Sodium Chloride Flush 3 Ml Syringe) 3 ml IVFLUSH QSHIFT [facility] Last Admin: 02/04/23 09:26 Dose: 3 ml Documented By: ABEL Thiamine HCl (Thiamine Hcl 100 Mg Tablet) 100 mg PO DAILY [facility] Last Admin: 02/04/23 09:26 Dose: 100 mg Documented By: ABEL Labs 01/29/23 05:30 01/30/23 07:41 Labs: Laboratory Results - last 24 hr 01/26/23 02/03/23 02/03/23 20:38 15:56 19:45 POC Glucose 127 H 156 H Ur L.pneumophila Ag Not Detected Ur Strep pneumoniae Ag SEE NOTE 02/04/23 02/04/23 07:40 11:00 POC Glucose 108 177 H Ur L.pneumophila Ag Ur Strep pneumoniae Ag Assessment and Plan (1) COVID-19: Status: Acute (2) Weakness: Status: Acute Plan 67-year-old male with history of let-hxtkgue-dxcfnzxfx type 2 diabetes, hypertension, COPD, hyperlipidemia, history CVA on Plavix, vascular dementia, coronary artery disease, and diabetic polyneuropathy admitted for acute hypoxemic respiratory failure secondary to pneumonia and COVID-19. COVID-19 with acute hypoxemic respiratory failure and retrocardiac left lower lobe pneumonia has completed treatment with decadron, remdesevir and Abx, no longer hypoxic, repeat covid is negative today 02/03 COPD-no acute exacebration, bronchodilators as needed HypOtension- resolved , continue lisinopril hypomagnesemia repleted mild hypokalemia repleted acute Lactic acidosis due to hypovolemia and metformin use initial lactic acid 7.3, improved of 2.1 with IVF. no severe sepsis. anion gap metabolic acidosis due to starvation ketoacidosis from hypovolemia/dehydration, resolved with IVF Hyponatremia-due to hypovolemia resolved with IV fluid wst-issimzl-rgsgievcc type 2 diabetes stable blood sugars continue diabetic diet and insulin sliding scale hold metformin and glimepiride Diabetic neuropathy-continue lyrica Dysphagia--diet per speech recommendation CLEOPATRA-CPAP at bedtime HLD/CAD -no agnial chest pain,continue statin History CVA-continue plavix Vascular dementia-mentation baseline tobacco use disorder continue nicotine patch DVT prophylaxis-Lovenox generalized weakness recurrent falls, seen by PT they recommend short-term rehab, patient recently discharged from [facility] day prior to admission. case management manager looking for rehab bed. DC today if bed available Full code ongoing hospitalization : SNF wants negative covid test before discharge Time Spent With Patient Time: Total time managing care of this patient today ____ minutes. Quality Stroke Does the patient have a stroke diagnosis?: No VTE Prior VTE?: No VTE Risk Level:: Medical - moderate - high VTE Device Contraindication: Treatment Not Indicated VTE Drug Contraindication: N/A - Med Ordered
--- NOTE | 2023-02-04 13:07 | MHC.SL.SWA ---
Speech Pathologist Impression: Risk of aspiration, oropharyngeal dysphagia Risk of Aspiration Due to: Neurological Condition Reduced Cognition Dysphasia Diet Status: No changes Liquid Consistency and Strategies for Safe Swallow: Liquid Intake Recommendation: Thin Liquid Intake Strategies: Small Sips Solid Food Consistency: Dietary Recommendations: Grnd/Mech Altered (NDD2) Additional Modifications to Solid Foods: Pt is confused and impulsive. When feeding himself, pt has a tendency to pack food in his mouth. He requires TOTAL SUPERVISION during ALL PO INTAKE, close monitoring including checking of oral cavity, and consistent cues for safe eating behaviors: moisten/soften solids with sauces/gravies, administer one bite at a time, provide cues as needed to chew and swallow, dry swallow to clear residue followed by sip of liquid, oral cavity must be cleared before giving more bites, upright 90 degree position during PO intake and for at least 30 minutes afterwards. Oral Medication Intake: Whole with Puree Please contact the pharmacy regarding appropriate crushable or liquid drug formulations that are available whenever modified delivery is recommended. Compensatory Strategies and Precautions to be Taken for Safe Swallow: Sitting Upright (90 deg) No Straw Liquids from Cup Small Bites and Sips Rate of Ingestion Change Supervision While Eating and Drinking for Safe Swallow: Total Supervision (1:1) Foods to Avoid: Hard, Tough to chew, sticky foods Swallowing Recommended Treatments: Compens. Strategy Educat. Recommendation for Speech: Inpatient Speech Therapy Insurance Claims Examiner Clinican/Clinical Fellow: No Supervisory Statement: I have reviewed and agree with the student/clinical fellow's documentation: N/A Speech Language Pathologist: Nneka Chua M.A., CCC-NUCLEAR RADIOLOGIST
[2023-02-04 15:28] VITALS: BP 161/85; PULSE 94; RESP 20; TEMP 36.7; O2SAT 96
[2023-02-04 16:23] LABS: Glucose, Whole Blood 204 mg/dL (60-115)
[2023-02-04 19:43] VITALS: BP 166/76; PULSE 93; RESP 20; TEMP 36.7; O2SAT 95
[2023-02-04 20:18] LABS: Glucose, Whole Blood 115 mg/dL (60-115)
[2023-02-04] MEDS: Enoxaparin Sodium 40 MG/0.4 ML SYRINGE SUBCUT (20:28)
[2023-02-04 23:49] VITALS: BP 131/80; PULSE 90; RESP 19; TEMP 37.3; O2SAT 91
[2023-02-05] MEDS: 0.9 % Sodium Chloride Flush 3 ML SYRINGE IVFLUSH ×4 (00:23→21:20)
[2023-02-05 03:25] VITALS: BP 147/63; PULSE 77; RESP 19; TEMP 36.4; O2SAT 93
[2023-02-05] MEDS: guaiFENesin 200 MG/10 ML 10 ML LIQUID PO ×4 (05:44→21:19)
[2023-02-05 07:12] LABS: Glucose, Whole Blood 131 mg/dL (60-115)
[2023-02-05 07:47] VITALS: BP 150/70; PULSE 86; RESP 20; TEMP 36.8; O2SAT 95
--- NOTE | 2023-02-05 08:47 | MHC.CM.PN ---
Addendum entered by Delfina Zaidi RN 02/05/23 09:38: IMM DELIVERED TO PT'S S.O. IBETH BRUNNER AT 0915 AT NUMBER ON FILE, IMM TO BE SENT VIA CERTIFIED MAIL PER DISCUSSION. Original Note: CM RECEIVED MESSAGE FROM [employer] THIS AM THAT THEY WILL GO FOR INSURANCE [place] [employer] FOR BLS TRANSPORT.
[2023-02-05] MEDS: Atorvastatin Calcium 40 MG TABLET PO (08:51)
[2023-02-05] MEDS: Thiamine HCL 100 MG TABLET PO (08:51)
[2023-02-05] MEDS: Pregabalin 50 MG CAPSULE PO ×2 (08:51→21:19)
[2023-02-05] MEDS: Clopidogrel Bisulfate 75 MG TABLET PO (08:51)
[2023-02-05] MEDS: Ascorbic Acid 500 MG TABLET PO (08:51)
[2023-02-05] MEDS: Sertraline HCL 25 MG TABLET PO (08:51)
[2023-02-05] MEDS: Nicotine 14 MG PATCH.TD24 TRANSDERMA (08:51)
[2023-02-05 11:07] VITALS: BP 129/89; PULSE 79; RESP 20; TEMP 37.7; O2SAT 95
[2023-02-05 11:08] LABS: Glucose, Whole Blood 206 mg/dL (60-115)
[2023-02-05] MEDS: Doxycycline Monohydrate 100 MG CAPSULE PO ×2 (11:30→21:19)
[2023-02-05] MEDS: Insulin Lispro 100 UNIT/ML 3 ML VIAL SUBCUT ×2 (11:30→21:19)
--- NOTE | 2023-02-05 11:47 | HO.PM.IMPN ---
Subjective Subjective Date of Service: 02/06/23 Interval History: No new issues, breathing is comfortable Physical Exam Vital Signs: Vital Signs: Last Vital Signs Temp 99.8 F 02/05/23 11:07 Pulse 79 02/05/23 11:07 Resp 20 02/05/23 11:07 BP 129/89 02/05/23 11:07 Pulse Ox 95 02/05/23 11:07 O2 Del Method Room Air 02/05/23 11:07 O2 Flow Rate 2.5 01/26/23 20:16 BMI result Body Mass Index 25.3 Const: Other: general awake alert in no acute distress answering questions appropriately neck no JVD.? cvs: regular rythem res: clear to auscultation ,no rhonchii or wheezing abd: soft nontender bowel sounds audible ext pulses present , no cyanosis . neuro: axo3 , nonfocal. skin no rash psych appropriate affect Objective Data Active Medications Acetaminophen (Acetaminophen 325 Mg Tablet) 650 mg PO Q6H PRN PRN Reason: Pain, Mild (Pain Scale 1-3) Last Admin: 01/28/23 18:51 Dose: 650 mg Documented By: JED Albuterol Sulfate (Albuterol Sulfate 90 Mcg 8 Gm Inhaler) 2 puff INHALE RQ4H PRN PRN Reason: Shortness of Breath/Wheezing Ascorbic Acid (Ascorbic Acid 500 Mg Tablet) 500 mg PO DAILY [facility] Last Admin: 02/05/23 08:51 Dose: 500 mg Documented By: ADEEL Atorvastatin Calcium (Atorvastatin Calcium 40 Mg Tablet) 40 mg PO DAILY [facility] Last Admin: 02/05/23 08:51 Dose: 40 mg Documented By: ADEEL Clopidogrel Bisulfate (Clopidogrel Bisulfate 75 Mg Tablet) 75 mg PO DAILY [facility] Last Admin: 02/05/23 08:51 Dose: 75 mg Documented By: ADEEL Dextrose (Dextrose 50 % 25 Gm/50 Ml Syringe) 25 gm IVPUSH Q15M PRN; Protocol PRN Reason: per Hypoglycemia Standing Ord. Docusate Sodium (Docusate Sodium 100 Mg Capsule) 100 mg PO DAILY PRN PRN Reason: Constipation Docusate Sodium (Docusate Sodium 100 Mg Capsule) 200 mg PO DAILY [facility] Last Admin: 02/05/23 08:54 Dose: Not Given Documented By: ADEEL Non-Admin Reason: Patient Refused Doxycycline Monohydrate (Doxycycline Monohydrate 100 Mg Capsule) 100 mg PO Q12H [facility] Last Admin: 02/05/23 11:30 Dose: 100 mg Documented By: ADEEL Enoxaparin Sodium (Enoxaparin Sodium 40 Mg/0.4 Ml Syringe) 40 mg SUBCUT Q24H [facility] Last Admin: 02/04/23 20:28 Dose: 40 mg Documented By: VERONICA Glucose (Glucose Gel 15 Gm Gel..Gram.) 15 gm PO Q15M PRN; Protocol PRN Reason: per Hypoglycemia Standing Ord. Guaifenesin (Guaifenesin 200 Mg/10 Ml 10 Ml Liquid) 10 ml PO Q4H [facility] Last Admin: 02/05/23 08:55 Dose: Not Given Documented By: ADEEL Non-Admin Reason: Patient Refused Insulin Human Lispro (Insulin Lispro 100 Unit/Ml 3 Ml Vial) 0 unit SUBCUT QIDACHS [facility]; Protocol Last Admin: 02/05/23 11:30 Dose: 4 unit Documented By: ADEEL Magnesium Oxide (Magnesium Oxide 400 Mg Tablet) 400 mg PO DAILY [facility] Last Admin: 01/28/23 08:22 Dose: 400 mg Documented By: ANASTASIIA-RIVLA Nicotine (Nicotine 14 Mg Patch.Td24) 14 mg TRANSDERMA DAILY [facility] Last Admin: 02/05/23 08:51 Dose: 14 mg Documented By: ADEEL Omeprazole (Omeprazole 20 Mg Capsule.Dr) 40 mg PO DAILY PRN PRN Reason: Acid Reflux Ondansetron HCl (Ondansetron Hcl 4 Mg/2 Ml Vial) 4 mg IVPUSH Q8H PRN PRN Reason: Nausea and Vomiting Pregabalin (Pregabalin 50 Mg Capsule) 50 mg PO BID [facility] Last Admin: 02/05/23 08:51 Dose: 50 mg Documented By: ADEEL Sertraline HCl (Sertraline Hcl 25 Mg Tablet) 25 mg PO DAILY [facility] Last Admin: 02/05/23 08:51 Dose: 25 mg Documented By: ADEEL Sodium Chloride (0.9 % Sodium Chloride Flush 3 Ml Syringe) 3 ml IVFLUSH QSHIFT [facility] Last Admin: 02/05/23 08:55 Dose: 3 ml Documented By: ADEEL Thiamine HCl (Thiamine Hcl 100 Mg Tablet) 100 mg PO DAILY [facility] Last Admin: 02/05/23 08:51 Dose: 100 mg Documented By: ADEEL Labs 01/29/23 05:30 02/05/23 21:37 Labs: Laboratory Results - last 24 hr 02/04/23 02/04/23 02/05/23 16:20 20:14 07:02 POC Glucose 204 H 115 131 H 02/05/23 10:58 POC Glucose 206 H Assessment and Plan (1) Hypoxia: Status: Acute (2) COVID-19: Status: Acute Plan 67-year-old male with history of [id number] type 2 diabetes, hypertension, COPD, hyperlipidemia, history CVA on Plavix, vascular dementia, coronary artery disease, and diabetic polyneuropathy admitted for acute hypoxemic respiratory failure secondary to pneumonia and COVID-19. COVID-19 with acute hypoxemic respiratory failure and retrocardiac left lower lobe pneumonia has completed treatment with decadron, remdesevir and Abx, no longer hypoxic, repeat covid is negative today 02/03 COPD-no acute exacebration, bronchodilators as needed HypOtension- resolved , continue lisinopril hypomagnesemia repleted mild hypokalemia repleted acute Lactic acidosis due to hypovolemia and metformin use initial lactic acid 7.3, improved of 2.1 with IVF. no severe sepsis. anion gap metabolic acidosis due to starvation ketoacidosis from hypovolemia/dehydration, resolved with IVF Hyponatremia-due to hypovolemia resolved with IV fluid tuk-iotvsag-yjiupasxr type 2 diabetes stable blood sugars continue diabetic diet and insulin sliding scale hold metformin and glimepiride Diabetic neuropathy-continue lyrica Dysphagia--diet per speech recommendation CLEOPATRA-CPAP at bedtime HLD/CAD -no agnial chest pain,continue statin History CVA-continue plavix Vascular dementia-mentation baseline tobacco use disorder continue nicotine patch DVT prophylaxis-Lovenox generalized weakness recurrent falls, seen by PT they recommend short-term rehab, patient recently discharged from [facility] day prior to admission. bilingual case manager looking for rehab bed. DC today if bed available Full code ongoing hospitalization : SNF wants negative covid test before discharge, possible dc later today Time Spent With Patient Time: Total time managing care of this patient today ____ minutes. Quality Stroke Does the patient have a stroke diagnosis?: No VTE Prior VTE?: No VTE Risk Level:: Medical - moderate - high VTE Device Contraindication: Treatment Not Indicated VTE Drug Contraindication: N/A - Med Ordered
[2023-02-05 16:00] VITALS: BP 130/72; PULSE 80; RESP 20; TEMP 37.1; O2SAT 97
[2023-02-05 16:48] LABS: Glucose, Whole Blood 133 mg/dL (60-115)
[2023-02-05 19:19] VITALS: BP 132/78; PULSE 114; RESP 20; TEMP 36.8; O2SAT 95
[2023-02-05 20:34] LABS: Glucose, Whole Blood 181 mg/dL (60-115)
[2023-02-05] MEDS: Enoxaparin Sodium 40 MG/0.4 ML SYRINGE SUBCUT (21:19)
[2023-02-05 21:57] LABS: Alanine Aminotransferase 30 U/L (0-40); Albumin Level 3.7 g/dL (3.5-5.0); Alkaline Phosphatase 98 U/L (39-117); Anion Gap 15 (12-20); Aspartate Amino Transferase 16 U/L (5-37); Bilirubin Total 0.9 mg/dL (0.0-1.0); Blood Urea Nitrogen 14 mg/dL (9-16); Calcium 9.4 mg/dL (8.4-10.2); Carbon Dioxide 23 mmol/L (22-29); Chloride 106 mmol/L (96-108); Creatinine Clr Calc Pharmacy 115.4; Estimated Glomerular Filt Rate > 60; Glucose Random 140 mg/dL (60-115); Potassium 4.2 mmol/L (3.3-5.1); Sodium 140 mmol/L (135-145); Total Protein 6.7 g/dL (6.5-8.0)
[2023-02-05 22:33] LABS: Magnesium 1.7 mg/dL (1.6-2.6)
[2023-02-05] MEDS: Magnesium Sulfate/H2O 2 GM/50 ML PIGGYBACK IV (23:16)
[2023-02-05 23:56] VITALS: BP 130/66; PULSE 83; RESP 19; TEMP 36.9; O2SAT 95
[2023-02-06 03:42] VITALS: BP 141/76; PULSE 78; RESP 19; TEMP 36.5; O2SAT 96
[2023-02-06 08:00] VITALS: BP 148/79; PULSE 69; RESP 20; TEMP 36.9; O2SAT 94
[2023-02-06 08:17] LABS: Glucose, Whole Blood 114 mg/dL (60-115)
[2023-02-06] MEDS: Sertraline HCL 25 MG TABLET PO (08:58)
[2023-02-06] MEDS: Ascorbic Acid 500 MG TABLET PO (08:58)
[2023-02-06] MEDS: Docusate Sodium 100 MG CAPSULE 200 MG PO (08:58)
[2023-02-06] MEDS: Thiamine HCL 100 MG TABLET PO (08:58)
[2023-02-06] MEDS: guaiFENesin 200 MG/10 ML 10 ML LIQUID PO (08:59)
[2023-02-06] MEDS: Nicotine 14 MG PATCH.TD24 TRANSDERMA (08:59)
[2023-02-06] MEDS: Atorvastatin Calcium 40 MG TABLET PO (08:59)
[2023-02-06] MEDS: Clopidogrel Bisulfate 75 MG TABLET PO (08:59)
[2023-02-06] MEDS: 0.9 % Sodium Chloride Flush 3 ML SYRINGE IVFLUSH (08:59)
[2023-02-06] MEDS: Pregabalin 50 MG CAPSULE PO (08:59)
--- NOTE | 2023-02-06 09:54 | P.DS_ITS ---
DS: Providers Provider Date of Service: 02/06/23 Date of admission: 01/26/23 18:13 Primary care physician: Sonya Dee NP Consults: 01/26/23 18:51 Consult to Infectious Diseases Routine Consulting Provider: [facility] Infectious Disease Reason for consultation: COVID pneumonia, on remdesivir DS: Diagnosis Discharge Diagnosis (1) Hypoxia: Status: Acute (2) COVID-19: Status: Acute DS: Summary Hospital Course Hospital Course: 67-year-old male with history of itj-vdtlmlv-tkdhqsaes type 2 diabetes, hypertension, COPD, hyperlipidemia, history CVA on Plavix, vascular dementia, coronary artery disease, and diabetic polyneuropathy presented to the ED earlier today from home for evaluation of generalized weakness and falls that have been going on for several weeks. The patient was discharged yesterday from [facility] where he had been rehabbing due to his weakness. He states that he still feels quite weak and had a mechanical fall earlier today. This was unwitnessed but he denies any head strike or loss of consciousness. Reports he was on the ground for about 30 minutes before his girlfriend found him and called EMS. He has also reported shortness of breath, rhinorrhea, and dry cough. He also tells me he has not urinated yet today. Denies any fevers, chills, sore throat, sinus pain, abdominal pain, nausea, vomiting, dysuria, [place], urinary urgency or frequency, lightheadedness, headache, or chest pain. He denies any known sick contacts. Denies previously having tested positive for COVID-19 in recent history. On arrival, patient hypoxic to 86% and placed on 2 L supplemental O2 now maintaining oximetry around 94%. Initially, patient tachycardic to 116, tachypneic to 22 and hypotensive to 88/58. Patient was given IV fluid bolus of 2200 mL with resolution of hypotension as well as tachycardia. There is no leukocytosis. Creatinine baseline at 1.11 but BUN elevated at 31. Sodium elevated at 148, chloride 110. Potassium normal 3.7, CO2 16, anion gap 16. Glucose 184. Initial lactic acid 7.3 improved to 2.5 following IV fluids. Troponin within normal limits. Negative for influenza, RSV, but positive for COVID-19. Chest x-ray shows retrocardiac pneumonia in left lower lobe but no parapneumonic effusion. In the ED treated with 2200ml IV NS, now on D5W/ /2 NS. Also given 1g IV ceftriaxone and 6 mg dexamethasone. He reports smoking about 8 cigarettes on a daily basis as well as marijuana but denies any illicit drug use or alcohol use. Hospital course: The patient was hospitalized following acute hypoxic respiratory failure attributed to COVID-19 and left lower lobe pneumonia. The COVID-19 treatment regimen included oxygen therapy, remdesivir, and dexamethasone. Fortunately, the patient has made a remarkable recovery and no longer requires supplemental oxygen. Additionally, he has successfully completed the prescribed antibiotic course for pneumonia and is currently free from symptoms such as cough and fever. He is now breathing comfortably on ambient air. COPD-no acute exacebration, bronchodilators as needed HypOtension- On inital presentation this has resolved hypomagnesemia - repleted and resolved mild hypokalemia - repleted and resolved acute Lactic acidosis due to hypovolemia and metformin use initial lactic acid 7.3, improved of 2.1 with IVF. no severe sepsis. anion gap metabolic acidosis due to starvation ketoacidosis from hypovolemia/dehydration, resolved with IVF Hyponatremia-due to hypovolemia resolved with IV fluid hgk-atkgxef-xxaisuhlh type 2 diabetes, resume metformin and stop glimeperide, blood sugar have been trending from 100 to 200, to continue sliding scale Diabetic neuropathy-continue lyrica Dysphagia- has been followed with the following recomendations Liquid Consistency and Strategies for Safe Swallow: Liquid Intake Recommendation: Thin Liquid Intake Strategies: Small Sips Solid Food Consistency: Dietary Recommendations: Grnd/Mech Altered (NDD2) Additional Modifications to Solid Foods: Pt is confused and impulsive. When feeding himself, pt has a tendency to pack food in his mouth. He requires TOTAL SUPERVISION during ALL PO INTAKE, close monitoring including checking of oral cavity, and consistent cues for safe eating behaviors: moisten/soften solids with sauces/gravies, administer one bite at a time, provide cues as needed to chew and swallow, dry swallow to clear residue followed by sip of liquid, oral cavity must be cleared before giving more bites, upright 90 degree position during PO intake and for at least 30 minutes afterwards. Oral Medication Intake: Whole with Puree Please contact the pharmacy regarding appropriate crushable or liquid drug formulations that are available whenever modified delivery is recommended. Time Spent with Patient Time attestation: Total time managing care of this patient today ____ minutes. Discharge coordination time: Greater than 30 minutes Quality: Safe Use of Opioids Does Pt have an Active Cancer Diagnosis on the Problem List?: No Quality: Stroke Does the patient have a stroke diagnosis?: No Physical Exam Vital Signs: Vital Signs: Last Vital Signs Temp 98.4 F 02/06/23 08:00 Pulse 69 02/06/23 08:00 Resp 20 02/06/23 08:00 BP 148/79 H 02/06/23 08:00 Pulse Ox 94 02/06/23 08:00 O2 Del Method Room Air 02/06/23 08:00 O2 Flow Rate 2.5 01/26/23 20:16 BMI result Body Mass Index 25.3 DS: Data Data Completed and Pending Labs on day of discharge: Laboratory Results - last 24 hr 02/05/23 02/05/23 02/05/23 10:58 16:32 20:27 Sodium Potassium Chloride Carbon Dioxide Anion Gap BUN Creatinine Estim Creat Clear Calc Estimated GFR POC Glucose 206 H 133 H 181 H Random Glucose Calcium Magnesium Total Bilirubin AST ALT Alkaline Phosphatase Total Protein Albumin 02/05/23 02/06/23 21:37 07:59 Sodium 140 Potassium 4.2 D Chloride 106 Carbon Dioxide 23 Anion Gap 15 BUN 14 Creatinine 0.65 Estim Creat Clear Calc 115.4 Estimated GFR > 60 POC Glucose 114 Random Glucose 140 H Calcium 9.4 D Magnesium 1.7 Total Bilirubin 0.9 AST 16 ALT 30 Alkaline Phosphatase 98 Total Protein 6.7 Albumin 3.7 Discharge Plan Discharge Anticipated Discharge Date/Time: 02/06/23 09:50 Patient Disposition: Xfer SNF Discharge Diagnosis: Acute hypoxic respiratory failure, Pneumonia, Covid [facility] Sonya Dee NP [Primary Care Provider] - 1 Week Discharge Medications: New insulin lispro [Humalog U-100 Insulin] 100 unit/mL Solution See Protocol subcut QIDACHS Qty: 10 0RF Protocol: Insulin Correction Scale Less than or equal to 110 ---- Give (units): 0 111 to 150 Give (units): 0 151 to 200 Give (units): 2 201 to 250 Give (units): 4 251 to 300 Give (units): 6 301 to 350 Give (units): 8 Greater than 350 Give (units): 10 Call MD if Blood Glucose > : 350 Continued atorvastatin 40 mg tablet 40 mg PO DAILY thiamine HCl (vitamin B1) [Vitamin B-1] 100 mg tablet 100 mg PO DAILY clopidogrel 75 mg tablet 75 mg PO DAILY magnesium oxide 400 mg (241.3 mg magnesium) tablet 400 mg PO DAILY ascorbic acid (vitamin C) [Vitamin C] 500 mg tablet 500 mg PO DAILY pantoprazole 40 mg tablet,delayed release (DR/EC) 40 mg PO DAILY PRN (Reason: Acid Reflux) metformin 1,000 mg tablet 1,000 mg PO BID sertraline 25 mg tablet 25 mg PO DAILY lisinopril 5 mg tablet 5 mg PO DAILY pregabalin [Lyrica] 50 mg capsule 50 mg PO BID cholecalciferol (vitamin D3) 1,250 mcg (50,000 unit) capsule 50,000 unit PO FR@0900 Discontinued glimepiride 4 mg tablet 4 mg PO DAILY Discharge Orders: Discharge Order (Routine); Ordered 02/06/23 Ordered By: Jonas Rowley Diet: groun/mech, thin liquid Activity on Discharge: As tolerated Stand Alone Forms: Patient Portal Discharge page Care Plan Goals: full reocvery from covid Health Concerns: covid--fully recovered Plan of Treatment: To rehab to regain strenght and stamina post covid Diet recommendation: Liquid Consistency and Strategies for Safe Swallow: Liquid Intake Recommendation: Thin Liquid Intake Strategies: Small Sips Solid Food Consistency: Dietary Recommendations: Grnd/Mech Altered (NDD2) Additional Modifications to Solid Foods: Pt is confused and impulsive. When feeding himself, pt has a tendency to pack food in his mouth. He requires TOTAL SUPERVISION during ALL PO INTAKE, close monitoring including checking of oral cavity, and consistent cues for safe eating behaviors: moisten/soften solids with sauces/gravies, administer one bite at a time, provide cues as needed to chew and swallow, dry swallow to clear residue followed by sip of liquid, oral cavity must be cleared before giving more bites, upright 90 degree position during PO intake and for at least 30 minutes afterwards. Oral Medication Intake: Whole with Puree Please contact the pharmacy regarding appropriate crushable or liquid drug formulations that are available whenever modified delivery is recommended. Assessment: as above
--- NOTE | 2023-02-06 10:27 | MHC.CM.PN ---
Pt is medically cleared for D/C, and auth received from [facility] for STR. Pt to transport via [facility] at 12pm.
[2023-02-06 11:52] VITALS: BP 139/75; PULSE 80; RESP 20; TEMP 36.8; O2SAT 96
[2023-02-06 11:58] LABS: Glucose, Whole Blood 200 mg/dL (60-115)
== END 2023-02-06 12:15 | disposition skilled nursing facility (03) | DRG 177 ==
LOC: HO.ED 17:05 → HO.EDOVER 20:00 → HO.IMC 01-27 03:20
PROVIDERS: Hospitalist; Internal Medicine; Student in an Organized Health Care Education/Training Program; Admitting Provider Physician Assistant; Emergency Provider Emergency Medicine Emergency Medical Services; PCP Nurse Practitioner Adult Health; Visit Provider Internal Medicine
DX: U07.1 COVID-19 (principal); J12.82 Pneumonia due to coronavirus disease 2019; J96.01 Acute respiratory failure with hypoxia; J44.0 Chronic obstructive pulmonary disease with (acute) lower respiratory infection; E87.1 Hypo-osmolality and hyponatremia; G40.109 Localization-related (focal) (partial) symptomatic epilepsy and epileptic syndromes with simple partial seizures, not intractable, without status epilepticus; E87.21 Acute metabolic acidosis; G47.33 Obstructive sleep apnea (adult) (pediatric); F17.210 Nicotine dependence, cigarettes, uncomplicated; E11.42 Type 2 diabetes mellitus with diabetic polyneuropathy; E86.0 Dehydration; E86.1 Hypovolemia; E78.5 Hyperlipidemia, unspecified; E83.42 Hypomagnesemia; E87.6 Hypokalemia; I25.10 Atherosclerotic heart disease of native coronary artery without angina pectoris; R13.10 Dysphagia, unspecified; I95.9 Hypotension, unspecified; F01.50 Vascular dementia, unspecified severity, without behavioral disturbance, psychotic disturbance, mood disturbance, and anxiety; Z71.6 Tobacco abuse counseling; Z79.02 Long term (current) use of antithrombotics/antiplatelets; Z79.84 Long term (current) use of oral hypoglycemic drugs; Z79.899 Other long term (current) drug therapy
CPT/HCPCS: 0241U; 36415; 71045; 80048; 80053; 80076; 82247; 82947; 83605; 83735; 84145; 84484; 85025; 85027; 85610; 85730; 87040; 87070; 87086; 87205; 87449; 87635; 87899; 92526; 92610; 93005; 94640; 97110; 97162; 97530; 99285; J0248; J0456; J0696; J1100; J1650; J2359; J3475; J8540

== ENCOUNTER → 2023-01-26 18:13 | Outpatient (BNV) | payer MEDICARE, SELFPAY | PROVIDERS: Admitting Provider Physician Assistant; Emergency Provider Emergency Medicine Emergency Medical Services; Visit Provider Internal Medicine | DX: J18.9 Pneumonia, unspecified organism (principal); U07.1 COVID-19; R53.1 Weakness | CPT/HCPCS: 99222 ==

== ENCOUNTER → 2023-01-26 18:13 | Outpatient (BNV) | payer MEDICARE, SELFPAY | PROVIDERS: Admitting Provider Physician Assistant; Emergency Provider Emergency Medicine Emergency Medical Services; Visit Provider Physician Assistant | DX: J96.01 Acute respiratory failure with hypoxia (principal); U07.1 COVID-19 | CPT/HCPCS: 99223; 99231; 99232; 99233; 99239 ==

== ENCOUNTER 2023-03-07 21:06 | Emergency (ER) | payer MEDICARE, SELFPAY ==
[2023-03-07 21:16] VITALS: BP 128/68; PULSE 69; TEMP 36.8; O2SAT 95
[2023-03-07 21:19] VITALS: BP 142/66; PULSE 76; O2SAT 92
[2023-03-07 22:22] VITALS: RESP 18; BMI 26.8
--- NOTE | 2023-03-07 22:25 | ED.MALEGU ---
HPI - Male Genitourinary General Chief complaint: Urogenital-Male Stated complaint: URINARY RETENTION Time Seen by Provider: 03/07/23 22:17 Source: patient and RN notes reviewed Mode of arrival: EMS Limitations: no limitations History of Present Illness HPI Narrative: Patient has a vascular dementia CVA with left-sided weakness had [facility] not tried to put the straight cath unable to insert. Bladder scan showed 650 cc of urine patient been urinating after that no history of any tension or prostate problem before no history of kidney stone no hematuria no frequency no dysuria Related Data Home Medications Medication Instructions Recorded Confirmed ascorbic acid (vitamin C) 500 mg 500 mg PO DAILY 01/26/23 01/26/23 tablet (Vitamin C) atorvastatin 40 mg tablet 40 mg PO DAILY 01/26/23 01/26/23 cholecalciferol (vitamin D3) 1,250 50,000 unit PO FR@0900 01/26/23 01/26/23 mcg (50,000 unit) capsule clopidogrel 75 mg tablet 75 mg PO DAILY 01/26/23 01/26/23 lisinopril 5 mg tablet 5 mg PO DAILY 01/26/23 01/26/23 magnesium oxide 400 mg (241.3 mg 400 mg PO DAILY 01/26/23 01/26/23 magnesium) tablet metformin 1,000 mg tablet 1,000 mg PO BID 01/26/23 01/26/23 pantoprazole 40 mg tablet,delayed 40 mg PO DAILY PRN Acid Reflux 01/26/23 01/26/23 release pregabalin 50 mg capsule (Lyrica) 50 mg PO BID 01/26/23 01/26/23 sertraline 25 mg tablet 25 mg PO DAILY 01/26/23 01/26/23 thiamine HCl (vitamin B1) 100 mg 100 mg PO DAILY 01/26/23 01/26/23 tablet (Vitamin B-1) Previous Rx's Medication Instructions Recorded insulin lispro 100 unit/mL See Protocol subcut QIDACHS #10 mL 02/06/23 subcutaneous solution (Humalog U-100 Insulin) tamsulosin 0.4 mg capsule (Flomax) 0.4 mg PO BEDTIME #30 caps 03/08/23 Allergies Allergy/AdvReac Type Severity Reaction Status Date / Time gabapentin [GABAPENTIN] Allergy Unknown N/V Verified 03/07/23 22:24 Penicillins [PENICILLINS] Allergy Unknown RASH Verified 03/07/23 22:24 pregabalin [From LYRICA] Allergy Unknown N/V Verified 03/07/23 22:24 cephalosporin Allergy Unknown Itching Uncoded 10/03/22 11:01 Penicillin Allergy Unknown Swelling Uncoded 10/03/22 11:01 Review of Systems Review of Systems: Yes all other systems are reviewed and are negative [facility] Past Medical History Medical History CLEOPATRA on CPAP Seizure disorder Vascular dementia CVA (cerebral vascular accident) COPD (chronic obstructive pulmonary disease) Hypertension Type 2 diabetes mellitus Social History Social History Household Members: Significant Other Housing: Apartment Do you presently have visiting nurse or other home services: No Patient Tobacco Use Status: Current everyday Tobacco user Tobacco use type: Cigarette Cigarettes Per Day: 8 Smoked in Last 30 Days: No Use of substances other than those prescribed or required for medical reasons: No Substance Use Type: Marijuana Advance Directives: No Advance Directives Information Provided: Yes service: No Physical Exam Vital Signs: Vital Signs: Last Vital Signs Temp 98.2 F 03/07/23 21:16 Pulse 67 03/07/23 23:58 Resp 15 03/07/23 23:58 BP 136/60 03/07/23 23:58 Pulse Ox 97 03/07/23 23:58 O2 Del Method Room Air 03/07/23 23:58 BMI result Body Mass Index 26.8 Appearance: Alert. Oriented X3. No acute distress. Eyes: PERRLA, No Nystagmus ENT: Pharynx normal. Oral Mucosa moist Neck: Normal inspection. Neck supple. CVS: Normal heart rate and rhythm. Pulses normal. Respiratory: No respiratory distress. Equal air entry bilateral, no wheezing/rales/rhonchi Abdomen: Soft and nontender. Bowel sounds are present, no mass palpable, no CVA tenderness Skin: Skin warm and dry. Normal skin color. Normal skin turgor. Extremities: No lower extremity edema. No calf tenderness Neuro: Oriented X 3. Residual left-sided weakness, No sensory deficit.No cerebellar signs , cranial nerves II-XII intact Medical Decision Making Medical Decision Making MDM Narrative: Patient came for? Urinary tension with no history of inattention the past but noticed the patient had 650 cc urine in the bladder but in the ER was only 88 mL. UA was negative except for small amount of blood which is likely traumatic from the straight cath and the catheter try to place in [facility] will discharge patient back to [facility]itentiary it started on Flomax patient does not have any abdominal pain unlikely bladder stone or kidney stone Lab Data MDM Lab Attestation statement: I reviewed the patient's lab results. Labs: Lab Results 03/08/23 Range/Units 01:03 Urine Color Yellow Urine Appearance Clear Urine pH 6.5 (5.0-9.0) Ur Specific Gaffney 1.025 (1.005-1.025) Urine Protein Negative (Neg-Trace) mg/dL Urine Glucose (UA) Negative (Negative) mg/dL Urine Ketones Trace (Negative) mg/dL Urine Blood Moderate (2+) H (Negative) Urine Nitrite Negative (Negative) Ur Leukocyte Esterase Small (1+) H (Negative) Urine RBC >20 H (0-2) /HPF Urine WBC 6-10 H (0-5) /HPF Ur Squamous Epith Cells 0-2 (0-2) /HPF Urine Bacteria None Seen (None Seen) Hyaline Casts 0-2 (0-2) /LPF Discharge Plan Discharge Clinical Impression: Acute retention of urine Patient Disposition: Xfer SNF Transfer Details: No retention noticed patient urinating normally post voidal bladder volume was 150 cc Will start patient on Flomax 1 tablet daily Instructions: Urinary Retention in Men (ED) Additional Instructions: No urinary retention noticed Follow with PCP Take Flomax 1 tablet daily Prescriptions: New tamsulosin [Flomax] 0.4 mg capsule 0.4 mg PO BEDTIME Qty: 30 0RF No Action atorvastatin 40 mg tablet 40 mg PO DAILY thiamine HCl (vitamin B1) [Vitamin B-1] 100 mg tablet 100 mg PO DAILY clopidogrel 75 mg tablet 75 mg PO DAILY magnesium oxide 400 mg (241.3 mg magnesium) tablet 400 mg PO DAILY ascorbic acid (vitamin C) [Vitamin C] 500 mg tablet 500 mg PO DAILY pantoprazole 40 mg tablet,delayed release (DR/EC) 40 mg PO DAILY PRN (Reason: Acid Reflux) metformin 1,000 mg tablet 1,000 mg PO BID sertraline 25 mg tablet 25 mg PO DAILY lisinopril 5 mg tablet 5 mg PO DAILY pregabalin [Lyrica] 50 mg capsule 50 mg PO BID cholecalciferol (vitamin D3) 1,250 mcg (50,000 unit) capsule 50,000 unit PO FR@0900 insulin lispro [Humalog U-100 Insulin] 100 unit/mL Solution See Protocol subcut QIDACHS Qty: 10 0RF Protocol: Insulin Correction Scale Less than or equal to 110 ---- Give (units): 0 111 to 150 Give (units): 0 151 to 200 Give (units): 2 201 to 250 Give (units): 4 251 to 300 Give (units): 6 301 to 350 Give (units): 8 Greater than 350 Give (units): 10 Call MD if Blood Glucose > : 350
[2023-03-07 23:58] VITALS: BP 136/60; PULSE 67; RESP 15; O2SAT 97
[2023-03-08 01:09] LABS: Appearance Urine Clear; Color Urine Yellow; Glucose Urine UA Negative (Negative); Leukocyte Esterase Urine Small (1+) (Negative); Nitrite Urine Negative (Negative); PH 6.5 (5.0-9.0); Specific Gravity - Urine 1.025 (1.005-1.025); UMIC TRIGGER UACC YES; Urine Blood Moderate (2+) (Negative); Urine Ketones Trace mg/dL (Negative); Urine Protein Negative (Neg-Trace)
[2023-03-08 01:14] LABS: Bacteria Urine None Seen (None Seen); Hyaline Casts Urine 0-2 /LPF (0-2); RBC Urine >20 /HPF (0-2); Squamous Epithelial Cell Urine 0-2 /HPF (0-2); UACC Culture Trigger YES
--- NOTE | 2023-03-08 01:49 | PC.NURSE ---
pt liam from [facility]. pt facility staff reports pt had reports of being unable to urinate, facility staff bladder scanned for 650, and were unable to obtained a straight catheter. upon arrival pt had multiple incontinence episode and was bladder scanned for 250ml. pt straight cath by this RN per verbal order. pt voided 150ml of urine and urine sample obtained and sent. pt tolerated procedure well.
--- NOTE | 2023-03-08 02:19 | PC.NURSE ---
report given to [facility] care nurse.
--- NOTE | 2023-03-08 02:49 | MHC.EDTECH ---
CALL OUT TO [facility] AT 0216 TO BOOK TRANSPORT FOR PT BACK TO [facility], ESTIMATED ETA GIVEN WAS [phone]
[2023-03-08 04:29] VITALS: BP 135/76; PULSE 85; RESP 18; O2SAT 98
== END 2023-03-08 04:30 | disposition skilled nursing facility (03) ==
PROVIDERS: Emergency Provider Internal Medicine; PCP Family Medicine
DX: R33.9 Retention of urine, unspecified (principal); R53.1 Weakness; F17.210 Nicotine dependence, cigarettes, uncomplicated; Z71.6 Tobacco abuse counseling; Z79.899 Other long term (current) drug therapy
CPT/HCPCS: 81001; 87086; 99283; 99284

== ENCOUNTER 2023-03-22 14:13 | Emergency (ER) | payer MEDICARE, SELFPAY ==
--- NOTE | ~2023-03-22 | XR_ITS ---
EXAMINATION: XR CHEST CLINICAL INFORMATION: Multiple falls. COMPARISON: 01/26/2023. TECHNIQUE: Frontal view of the chest was obtained. FINDINGS: No significant abnormality is noted involving the heart, lungs, mediastinum, bony thorax or soft tissues. XR/XR chest 1V IMPRESSION: Unremarkable examination.
--- NOTE | ~2023-03-22 | CT_ITS ---
EXAMINATION: CT HEAD WITHOUT CONTRAST CT CERVICAL SPINE WITHOUT CONTRAST CLINICAL INFORMATION: Multiple falls, headache rule out fracture COMPARISON: None. TECHNIQUE: Imaging was performed from the skull base to vertex without intravenous administration of contrast. In addition, helical noncontrast CT imaging was acquired through the cervical spine and source images were reviewed along with axial reconstructions and sagittal and coronal MPRs. [This CT examination was performed using dose optimization techniques as appropriate, variously including the following: *Automated exposure control *Adjustment of mA and/or kV according to patient size (this includes techniques or standardized protocols for targeted exams where dose is matched to indication/reason for exam; i.e. extremities or head) *Use of iterative reconstruction technique] DLP: 1233 mGy-cm FINDINGS: HEAD: There is a small metallic focus near the right middle cerebral artery causing streak artifact through the adjacent right temporal lobe. There is geographic low attenuation involving the white matter and anderson matter of the right frontal lobe consistent with the age indeterminate infarct/gliosis and edema. No prior studies available for comparison. Small lacunar infarct in the left basal ganglia. Overall global atrophy with prominence of the ventricles and sulci. Vascular calcification of the internal carotid arteries at the carotid artery siphon bilaterally. No mass effect. No intracranial hemorrhage. No extra-axial collection. No acute osseous abnormality. No skull fracture. CERVICAL SPINE: There is no evidence of acute cervical spine fracture. Vertebral bodies remain normal in height. Cervical vertebrae have normal alignment. There is multilevel degenerative spondylosis of the cervical spine with disc height narrowing and endplate spurs and facet joint arthrosis No pre- or paravertebral soft tissue abnormality is identified. Limited assessment of the lung apices is unremarkable. CT/CT cervical spine wo IV con IMPRESSION: 1. No acute intracranial pathology. 2. No CT evidence of acute cervical spine fracture or traumatic subluxation.
[2023-03-22 14:19] VITALS: BP 138/74; PULSE 95; O2SAT 97
[2023-03-22 14:24] VITALS: BP 117/57; PULSE 86; RESP 18; TEMP 36.6; O2SAT 94; BMI 25.5
--- NOTE | 2023-03-22 14:28 | ED_ITS ---
HPI - Fall General Chief Complaint: Fall Stated Complaint: FALL X3 TODAY DIZZY LIGHTHEADED Time Seen by Provider: 03/22/23 14:24 Source: patient Mode of arrival: EMS Limitations: no limitations History of Present Illness HPI Narrative: 67-year-old male with history of coronary artery disease, CLEOPATRA on CPAP, seizures, vascular dementia, CVA, COPD, hypertension, diabetes mellitus, generalized muscle weakness who was sent to the emergency department from his [place] facility, [facility] for evaluation of 3 unwitnessed falls. The patient did state that he felt dizzy this morning and fell. He reports falling at least twice. The he states that he had nausea and since the fall he has had headache and neck pain. He denied fever, chills, chest pain, shortness of breath. The patient is on antibiotics. Related Data Home Medications Medication Instructions Recorded Confirmed ascorbic acid (vitamin C) 500 mg 500 mg PO DAILY 01/26/23 01/26/23 tablet (Vitamin C) atorvastatin 40 mg tablet 40 mg PO DAILY 01/26/23 01/26/23 cholecalciferol (vitamin D3) 1,250 50,000 unit PO FR@0900 01/26/23 01/26/23 mcg (50,000 unit) capsule clopidogrel 75 mg tablet 75 mg PO DAILY 01/26/23 01/26/23 lisinopril 5 mg tablet 5 mg PO DAILY 01/26/23 01/26/23 magnesium oxide 400 mg (241.3 mg 400 mg PO DAILY 01/26/23 01/26/23 magnesium) tablet metformin 1,000 mg tablet 1,000 mg PO BID 01/26/23 01/26/23 pantoprazole 40 mg tablet,delayed 40 mg PO DAILY PRN Acid Reflux 01/26/23 01/26/23 release pregabalin 50 mg capsule (Lyrica) 50 mg PO BID 01/26/23 01/26/23 sertraline 25 mg tablet 25 mg PO DAILY 01/26/23 01/26/23 thiamine HCl (vitamin B1) 100 mg 100 mg PO DAILY 01/26/23 01/26/23 tablet (Vitamin B-1) Previous Rx's Medication Instructions Recorded insulin lispro 100 unit/mL See Protocol subcut QIDACHS #10 mL 02/06/23 subcutaneous solution (Humalog U-100 Insulin) tamsulosin 0.4 mg capsule (Flomax) 0.4 mg PO BEDTIME #30 caps 03/08/23 Allergies Allergy/AdvReac Type Severity Reaction Status Date / Time gabapentin [GABAPENTIN] Allergy Unknown N/V Verified 03/07/23 22:24 Penicillins [PENICILLINS] Allergy Unknown RASH Verified 03/07/23 22:24 pregabalin [From LYRICA] Allergy Unknown N/V Verified 03/07/23 22:24 cephalosporin Allergy Unknown Itching Uncoded 10/03/22 11:01 Penicillin Allergy Unknown Swelling Uncoded 10/03/22 11:01 Review of Systems 2 Review of Systems: Yes all other systems are reviewed and are negative [facility] Past Medical History Medical History CLEOPATRA on CPAP Seizure disorder Vascular dementia CVA (cerebral vascular accident) COPD (chronic obstructive pulmonary disease) Hypertension Type 2 diabetes mellitus Social History Social History Household Members: Significant Other Housing: Apartment Do you presently have visiting nurse or other home services: No Patient Tobacco Use Status: Current everyday Tobacco user Tobacco use type: Cigarette Cigarettes Per Day: 8 Substance Use Type: Marijuana Advance Directives: Yes Advance Directives on File: Yes Advance Directives Date on File: 03/08/23 service: No Physical Exam 2 Vital Signs: Vital Signs: Last Vital Signs Temp 98 F 03/22/23 14:24 Pulse 90 03/22/23 16:40 Resp 17 03/22/23 16:40 BP 152/87 H 03/22/23 16:40 Pulse Ox 98 03/22/23 16:40 O2 Del Method Room Air 03/22/23 14:24 BMI result Body Mass Index 25.5 Vital signs were normal Exam: General: Awake, alert in no distress, he answers questions appropriately Head: Normocephalic, atraumatic EENT: PERRL, Lids normal, sclera normal, conjunctiva normal, nose normal , ears normal, throat without erythema or exudates, very dry mucous membranes Neck: Supple, no adenopathy, no trachea midline , no point C-spine tenderness but he does have bilateral trapezius tenderness Lung: breath sounds symmetric, no wheezing, rales or rhonchi Chest: symmetric movement, nontender Heart: regular rate and rhythm, normal S1, S2 no murmurs or rubs Abdomen: soft, non-tender, nondistended, normal bowel sounds Back: no vertebral tenderness, no CVAT Extremities: no deformities, moves all extremities symmetrically Skin: no rashes, no lesion, normal color and warmth Neuro: Awake, alert, oriented, normal speech, cranial nerves intact, generalized weakness of his lower extremities but can move all extremities symmetrically Psych: Pleasant, cooperative Course Course Course Narrative: This patient was signed out to me by the previous emergency physician. The patient is a 67-year-old male with multiple medical problems including dementia who lives at a senior care. He had been sent to the emergency room for evaluation following some falls at his facility. He has had a negative head CT, negative CT of the cervical spine, negative chest x-ray. Labs suggest a mildly elevated hemoglobin possibly indicating some degree of dehydration. Also his sodium was mildly elevated 150. However his BUN creatinine are not significantly elevated. The patient was given 700 mL of IV crystalloid. At that point patient pulled out his IV. Overall my impression is that the patient is not severely acutely ill and I do not think he requires hospitalization. He was somewhat agitated here in the emergency room. I think he would likely do better and his usual environment. He will be discharged with instructions to try to increase fluid intake at his facility. Of note we had difficulty obtaining a urine sample to rule out urinary tract infection. The initial attempt catheterization were unsuccessful. Ultimately I used a 16 Tamazight coude catheter under sterile conditions to obtain urine. We obtained nonbloody looking urine which did not suggest UTI. His urine specific gravity was at the high end, also suggesting some degree of dehydration. Medications Administered Discontinued Medications Generic Name Dose Route Start Last Admin Trade Name Freq PRN Reason Stop Dose Admin Sodium Chloride 1,000 mls @ 999 mls/hr 03/22/23 14:39 03/22/23 16:40 Ns IV 03/22/23 15:39 999 mls/hr .Q1H1M STA Administration Lidocaine HCl 10 ml 03/22/23 17:08 03/22/23 17:15 Lidocaine Hcl 2 % Urojet 10 Ml Jel.Pf.Yokasta TOPICAL 03/22/23 17:09 10 ml ONCE ONE Administration Medical Decision Making Medical Decision Making MDM Narrative: 67-year-old male with history of coronary artery disease, CLEOPATRA on CPAP, seizures, vascular dementia, CVA, COPD, hypertension, diabetes mellitus, generalized muscle weakness who was sent to the emergency department from his [place] facility, [facility] for evaluation of 3 unwitnessed falls, patient states that he did experience dizziness prior to to the falls. Vital signs were unremarkable. Exam did reveal generalized weakness but he can moves extremities symmetrically, Alan membranes otherwise unremarkable. Fall your evaluation was ordered: CBC, CMP, CK, lipase, PT/INR, PTT, troponin, urinalysis, COVID-19, influenza, RSV, EKG, chest x-ray CT scan of the head and cervical spine without contrast Patient was treated with following: Normal saline x1 L, IV insertion 16:12 At the end of my shift, the patient's evaluation is pending. The patient's care was turned over to my colleague, Dr. Valerio Sparrow. Differential Diagnosis Differential Diagnoses: The differential diagnosis associated with the presentation includes Differential diagnosis includes was not limited to skull fracture, cerebral bleed, stroke, pneumonia, urinary tract infection, electrolyte abnormality, anemia, dehydration/volume depletion Admission/Observation Consideration of admission/observation: Escalation of care including admission/observation considered Lab Data 03/22/23 16:07 03/22/23 16:07 Labs: Lab Results 03/22/23 03/22/23 Range/Units 16:07 17:38 WBC 9.7 (4.8-10.8) X10*3/uL RBC 4.11 L (4.60-5.80) X10*6/uL Hgb 12.8 L (14.0-18.0) g/dl Hct 39.0 L (42.0-52.0) % MCV 94.9 (80.0-98.0) fL MCH 31.1 (27.0-33.0) pg MCHC 32.8 (31.0-36.0) g/dl RDW 13.3 (11.0-16.0) % Plt Count 189 D (160-400) X10*3/uL MPV 8.8 L (9.4-12.4) fL Immature Gran % (Auto) 0.4 (0.0-0.4) % Neut % (Auto) 80.2 H (45-73) % Lymph % (Auto) 12.4 L (20-40) % [place] % (Auto) 5.9 (2-11) % Eos % (Auto) 0.8 (0-4) % Baso % (Auto) 0.3 (0-2) % Lymph # (Auto) 1.2 (1.2-4.9) X10*3/uL [place] # (Auto) 0.6 (0.1-1.2) X10*3/uL Eos # (Auto) 0.1 (0.0-0.4) X10*3/uL Baso # (Auto) 0.0 (0.0-0.2) X10*3/uL Abs Immat Gran (auto) 0.04 H (0.00-0.03) X10*3/uL Absolute Neuts (auto) 7.8 (2.0-8.3) x10*3/uL Absolute Nucleated RBC 0.000 (0.0-0.012) X10*3/uL Nucleated RBC % (auto) 0.0 (0.0-0.2) /100WBC PT 12.1 (11.1-13.3) SEC INR 1.0 (0.9-1.1) APTT 34.8 (26.0-36.4) SEC Sodium 150 H (135-145) mmol/L Potassium 3.5 (3.3-5.1) mmol/L Chloride 112 H (96-108) mmol/L Carbon Dioxide 30 H (22-29) mmol/L Anion Gap 12 (12-20) BUN 10 (9-16) mg/dL Creatinine 0.70 (0.5-1.4) mg/dL Estim Creat Clear Calc 107.1 Estimated GFR > 60 Random Glucose 85 (60-115) mg/dL Calcium 9.3 (8.4-10.2) mg/dL Total Bilirubin 0.9 (0.0-1.0) mg/dL AST 11 (5-37) U/L ALT 8 (0-40) U/L Alkaline Phosphatase 88 (39-117) U/L Total Creatine Kinase 39 (38-174) U/L Troponin I High Sens < 2.7 (<3.5-35.0) ng/L Total Protein 7.0 (6.5-8.0) g/dL Albumin 4.1 (3.5-5.0) g/dL Lipase 10 (8-78) U/L Urine Color Yellow Urine Appearance Clear Urine pH 7.5 (5.0-9.0) Ur Specific [place] >= 1.030 H (1.005-1.025) Urine Protein Negative (Neg-Trace) mg/dL Urine Glucose (UA) Negative (Negative) mg/dL Urine Ketones Trace (Negative) mg/dL Urine Blood Moderate (2+) H (Negative) Urine Nitrite Negative (Negative) Ur Leukocyte Esterase Negative (Negative) Urine RBC >20 H (0-2) /HPF Urine WBC 0-5 (0-5) /HPF Ur Squamous Epith Cells 0-2 (0-2) /HPF Urine Bacteria None Seen (None Seen) Hyaline Casts 0-2 (0-2) /LPF Independent Interpretation I performed an independent interpretation of an: Plain X-Ray Interpretation: My independent interpretation patient's one-view chest x-ray is as follows: No acute disease Radiology Impression Discussion of test interpretation with radiology: I have reviewed the radiologist's reading. Radiologist Impression: XR chest 1V IMPRESSION: Unremarkable examination. Dictated By: Geovanny Vigil External Record Review External record reviewed: Outpatient record ([facility] admission record) Discharge Plan Discharge Clinical Impression: Multiple falls Patient Disposition: Home, Self-Care Additional Instructions: The medical workup today is largely negative. He has had a negative CT scan of his head, his cervical spine, and a negative chest x-ray. Labs suggest that he might have a mild degree of dehydration but no other concerning findings. He was given some IV fluids here. Please continue current medications. Please encourage fluid intake. He should follow up with his regular doctors. Return to the emergency room if worse. Prescriptions: No Action atorvastatin 40 mg tablet 40 mg PO DAILY thiamine HCl (vitamin B1) [Vitamin B-1] 100 mg tablet 100 mg PO DAILY clopidogrel 75 mg tablet 75 mg PO DAILY magnesium oxide 400 mg (241.3 mg magnesium) tablet 400 mg PO DAILY ascorbic acid (vitamin C) [Vitamin C] 500 mg tablet 500 mg PO DAILY pantoprazole 40 mg tablet,delayed release (DR/EC) 40 mg PO DAILY PRN (Reason: Acid Reflux) metformin 1,000 mg tablet 1,000 mg PO BID sertraline 25 mg tablet 25 mg PO DAILY lisinopril 5 mg tablet 5 mg PO DAILY pregabalin [Lyrica] 50 mg capsule 50 mg PO BID cholecalciferol (vitamin D3) 1,250 mcg (50,000 unit) capsule 50,000 unit PO FR@0900 insulin lispro [Humalog U-100 Insulin] 100 unit/mL Solution See Protocol subcut QIDADEMETRA Qty: 10 0RF Protocol: Insulin Correction Scale Less than or equal to 110 ---- Give (units): 0 111 to 150 Give (units): 0 151 to 200 Give (units): 2 201 to 250 Give (units): 4 251 to 300 Give (units): 6 301 to 350 Give (units): 8 Greater than 350 Give (units): 10 Call MD if Blood Glucose > : 350 tamsulosin [Flomax] 0.4 mg capsule 0.4 mg PO BEDTIME Qty: 30 0RF
[2023-03-22 16:12] LABS: MANUAL DIFF FLAG NO
[2023-03-22 16:14] LABS: Basophils Percent Auto 0.3 % (0-2); Eosinophils Absolute Auto 0.1 X10*3/uL (0.0-0.4); Eosinophils Percent Auto 0.8 % (0-4); Hemoglobin 12.8 g/dl (14.0-18.0); Imm Gran Abs Auto 0.04 X10*3/uL (0.00-0.03); Imm Gran Pct Auto 0.4 % (0.0-0.4); Lymphocytes Absolute Auto 1.2 X10*3/uL (1.2-4.9); Lymphocytes Percent Auto 12.4 % (20-40); Mean Corpuscular HGB Conc 32.8 g/dl (31.0-36.0); Mean Corpuscular Hemoglobin 31.1 pg (27.0-33.0); Mean Corpuscular Volume 94.9 fL (80.0-98.0); Mean Platelet Volume 8.8 fL (9.4-12.4); Monocytes Absolute Auto 0.6 X10*3/uL (0.1-1.2); Monocytes Percent Auto 5.9 % (2-11); Neutrophils Absolute Auto 7.8 x10*3/uL (2.0-8.3); Neutrophils Percent Auto 80.2 % (45-73); Platelet Count 189 X10*3/uL (160-400); Red Blood Count 4.11 X10*6/uL (4.60-5.80); Red Cell Distribution Width 13.3 % (11.0-16.0); White Blood Count 9.7 X10*3/uL (4.8-10.8)
[2023-03-22 16:19] LABS: Prothrombin Time 12.1 SEC (11.1-13.3)
[2023-03-22 16:22] LABS: Partial Thromboplastin Time 34.8 SEC (26.0-36.4)
[2023-03-22 16:32] LABS: Alanine Aminotransferase 8 U/L (0-40); Albumin Level 4.1 g/dL (3.5-5.0); Alkaline Phosphatase 88 U/L (39-117); Anion Gap 12 (12-20); Aspartate Amino Transferase 11 U/L (5-37); Bilirubin Total 0.9 mg/dL (0.0-1.0); Blood Urea Nitrogen 10 mg/dL (9-16); Calcium 9.3 mg/dL (8.4-10.2); Carbon Dioxide 30 mmol/L (22-29); Chloride 112 mmol/L (96-108); Creatinine Clr Calc Pharmacy 107.1; Estimated Glomerular Filt Rate > 60; Glucose Random 85 mg/dL (60-115); Lipase 10 U/L (8-78); Potassium 3.5 mmol/L (3.3-5.1); Sodium 150 mmol/L (135-145)
[2023-03-22 16:40] VITALS: BP 152/87; PULSE 90; RESP 17; O2SAT 98
[2023-03-22] MEDS: 0.9 % Sodium Chloride 1,000 ML 999 ML IV (16:40)
[2023-03-22 16:44] LABS: Troponin-I High Sensitivity < 2.7 ng/L (<3.5-35.0)
[2023-03-22] MEDS: Lidocaine HCl 2 % Urojet 10 ML JEL.PF.APP TOPICAL (17:15)
[2023-03-22 17:55] LABS: Appearance Urine Clear; Color Urine Yellow; Glucose Urine UA Negative (Negative); Leukocyte Esterase Urine Negative (Negative); Nitrite Urine Negative (Negative); PH 7.5 (5.0-9.0); Specific Gravity - Urine >= 1.030 (1.005-1.025); UMIC TRIGGER UACC YES; Urine Blood Moderate (2+) (Negative); Urine Ketones Trace mg/dL (Negative); Urine Protein Negative (Neg-Trace)
[2023-03-22 18:13] LABS: Bacteria Urine None Seen (None Seen); Hyaline Casts Urine 0-2 /LPF (0-2); RBC Urine >20 /HPF (0-2); Squamous Epithelial Cell Urine 0-2 /HPF (0-2); WBC Urine 0-5 /HPF (0-5)
--- NOTE | 2023-03-22 18:38 | PC.NURSE ---
report called to [facility] 2nd floor nurse
[2023-03-22 19:38] LABS: Influenza A PCR NEGATIVE (Negative); Influenza B PCR NEGATIVE (Negative); Resp Syncy Virus RNA Qual PCR NEGATIVE (Negative); SARS COV2 PCR INHOUSE NEGATIVE (Negative)
--- NOTE | 2023-03-22 19:48 | PC.NURSE ---
this rn assumed care of pt @ 1900. per previous shift nurse report already called to [facility] staff. report given to ems prior to transport back to [facility] facility
== END 2023-03-22 19:50 | disposition home or self-care (01) ==
PROVIDERS: Emergency Medicine Emergency Medical Services; Emergency Provider Emergency Medicine
DX: S09.90XA Unspecified injury of head, initial encounter (principal); S19.9XXA Unspecified injury of neck, initial encounter; R51.9 Headache, unspecified; M54.2 Cervicalgia; R07.89 Other chest pain; W01.10XA Fall on same level from slipping, tripping and stumbling with subsequent striking against unspecified object, initial encounter; Y93.9 Activity, unspecified; Y92.9 Unspecified place or not applicable; Y99.9 Unspecified external cause status; Z20.822 Contact with and (suspected) exposure to COVID-19; Z20.828 Contact with and (suspected) exposure to other viral communicable diseases; Z79.899 Other long term (current) drug therapy; F17.210 Nicotine dependence, cigarettes, uncomplicated; Z71.6 Tobacco abuse counseling
CPT/HCPCS: 0241U; 36415; 70450; 71045; 72125; 80053; 81001; 82550; 83690; 84484; 85025; 85610; 85730; 99284

== ENCOUNTER 2023-04-11 14:07 | Emergency (ER) | payer MEDICARE, SELFPAY ==
[2023-04-11 14:12] VITALS: BP 112/63; BP 132/88; PULSE 69; PULSE 84; RESP 18; TEMP 36.8; O2SAT 95; O2SAT 97; BMI 22.2
--- OUTSIDE RECORDS SUMMARY | 2023-04-11 15:16 | XMS_ITS | Continuity of Care Document ---
Author Name Unknown Organization [facility] ter Address [address] [place] [id number]- Care Team Providers Care Art Handler Name Role Phone Luiz SALAS, Sonya Primary Care Physician Encounter [facility] [place] Date(s): 05/08/21 - 05/09/[address] [address]- Discharge Disposition: A-D/C Home Attending Physician: Valentina Monreal MD Admitting Physician: Valentina Monreal MD Referring Physician: Not on Staff, Referring MD Allergies, Adverse Reactions, Alerts Substance Reaction Severity Status penicillin Active gabapentin Active Immunizations Given and Recorded Vaccine Date Status Refusal Reason influenza virus vaccine, inactivated 04/24/21 Give n influenza virus vaccine, inactivated 03/31/18 Efrain rded influenza virus vaccine, inactivated 01/09/17 Efrain rded SARS-CoV-2 (COVID-19) mRNA-1273 vaccine 09/21/20 R ecorded SARS-CoV-2 (COVID-19) mRNA-1273 vaccine 08/23/20 R ecorded tetanus/diphtheria/pertussis, acel(Tdap) 05/26/19 Recorded pneumococcal 23-valent vaccine 02/04/13 Recorded Not Given Vaccine Date Status Refusal Reason influenza virus vaccine, inactivated 05/26/20 Not Given Patient Refuses Medications amLODIPine 5 mg oral tablet 1 tablet = 5 mg, By Mouth, Daily, for 30 days, # 30 tablet, 5 Refills, Hard Stop 07/15/21 10:30:00 EDT, 01/16/21 10:30:00 EDT, Tablet, [id number], Partial fill upon patient request if the prescription is for a schedule II opioid drug., 178, cm... Start Date: 01/16/21 Stop Date: 07/15/21 Status: Ordered atorvastatin 40 mg oral tablet 1 tablet = 40 mg, By Mouth, Daily at bedtime, # 30 tablet, 5 Refills, Maintenance, 05/02/21 10:38:00 EST, Tablet, [facility]acy #[id number], Partial fill upon patient request if the prescription is for a schedule II opioid drug., 178, cm, 04/27/21 4:54:00 ES... Start Date: 05/02/21 Stop Date: 10/29/21 Status: Ordered Bactrim DS 800 mg-160 mg oral tablet 1 tablet, By Mouth, 2 times a day, for 5 days, take first dose 05/07 PM, take until all pills are gone, # 10 tablet, 0 Refills, Acute 05/12/21 12:38:00 EST, 05/07/21 12:38:00 EST, Tablet, [facility], Partial fill upon patient request if t... Start Date: 05/07/21 Stop Date: 05/12/21 Status: Ordered cholecalciferol 50,000 intl units oral capsule 1 capsule = 50,000 International_Units, By Mouth, Every week, # 5 capsule, 11 Refills, Maintenance,05/02/21 10:36:00 EST, Capsule, [facility]/pharmacy #[id number], Partial fill upon patient request if the prescription is for a schedule II opioid drug., 178, cm, 0... Start Date: 05/02/21 Stop Date: 04/27/22 Status: Ordered clonazePAM 0.5 mg oral tablet 1 tablet = 0.5 mg, By Mouth, 3 times a day, # 90 tablet, 1 Refills, Maintenance, 05/02/21 12:49:00 EST, Tablet, [facility]/pharmacy #[id number], Partial fill upon patient request if the prescription is for a schedule II opioid drug., 178, cm, 04/27/21 4:54:00 EST,... Start Date: 05/02/21 Stop Date: 07/01/21 Status: Ordered glimepiride 4 mg oral tablet 1 tablet, By Mouth, 2 times a day, # 60 tablet, 5 Refills, Maintenance, 05/02/21 10:36:00 EST, [id number], 178, cm, 04/27/21 4:54:00 EST, Height, 84.3, kg, 04/23/21 2:54:00 EST, Dry Weight Start Date: 05/02/21 Status: Ordered lactulose 10 gm/15 ml oral syrup 15 mL, By Mouth, Daily, PRN NEEDED FOR CONSTIPATION, # 473 mL, 0 Refills, [id number], 30, TAKE 15 ML BY MOUTH DAILY NEEDED FOR CONSTIPATION, 178, cm, 03/13/21 13:09:00 EST, Height, 100, kg, 12/26/20 16:53:00 EDT, Dry Weight Start Date: 04/20/21 Status: Ordered lisinopril 10 mg oral tablet 10 mg, 1, tablet, By Mouth, Daily, for 30 days, # 30 tablet, Refills 5, Tot. Refills 5, Hard Stop 07/15/21 10:29:00 EDT, 01/16/21 10:29:00 EDT, Route to Pharmacy Electronically, [facility]/pharmacy #[id number], Partial fill upon patient request if the prescription... Start Date: 01/16/21 Stop Date: 07/15/21 Status: Ordered magnesium oxide 400 mg oral tablet 1 tablet = 400 mg, By Mouth, Daily, for 30 days, # 30 tablet, 5 Refills, Acute 10/29/21 10:39:00 EDT, 05/02/21 10:39:00 EST, Tablet, [facility]/pharmacy #[id number], Partial fill upon patient request if the prescription is for a schedule II opioid drug., 178, cm,... 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 Refills 0, Maintenance, 05/02/21 9:47:00 EST, Route to Pharmacy Electronically, [facility]/pharmacy #[id number], Partial fill upon patient request if the prescription is for a sc... Start Date: 05/02/21 Stop Date: 05/30/21 Status: Ordered pantoprazole 40 mg oral delayed release tablet = 40 mg, By Mouth, Daily, # 30 each, 5 Refills, Maintenance, 05/02/21 10:36:00 EST, EC Tablet, 178,cm, 04/27/21 4:54:00 EST, Height, 84.3, kg, 04/23/21 2:54:00 EST, Dry Weight Start Date: 05/02/21 Stop Date: 10/29/21 Status: Ordered Plavix 75 mg oral tablet 75 mg, 1, tablet, By Mouth, Daily, # 30 tablet, Refills 5, Tot. Refills 5, Maintenance, 05/02/21 10:36:00 EST, Route to Pharmacy Electronically, [facility]/pharmacy #[id number], Partial fill upon patient request if the prescription is for a schedule II opioid drug... Start Date: 05/02/21 Stop Date: 10/29/21 Status: Ordered raised toilet seat raised toilet seat, See Instructions, # 1 each, Refills 0, Tot. Refills 0, Maintenance, JAZMYN: lieftime DX: M54.5, I63.9, 01/24/21 10:39:00 EDT, Supply Start Date: 01/24/21 Status: Ordered Tums 500 mg oral tablet, chewable 500 mg, 1, tablet, Chew, 3 times a day, PRN, # 90 tablet, Refills 5, Tot. Refills 5, Maintenance, Dyspepsia, 05/02/21 10:38:00 EST, Route to Pharmacy Electronically, [facility]/pharmacy #[id number], Partial fill upon patient request if the prescription is for a sc... 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 S/P Elective Coiling of Unruptured Aneurysm with Subsequent Left-Sided Weakness: Acute nonhemorrhagic infarct in the RIGHT posterior frontal lobe: Results Orders for Microbiology Reports Name Date Blood Culture 05/08/21 Blood Culture #2 05/08/21 Microbiology Reports TEST:Blood Culture STATUS:Unauthenticated BODY SITE: SOURCE:Blood COLLECTED DATE/TIME:05/08/21 3:34 PM Blood Culture SPECIMEN DESCRIPTION : BLOOD LAC SPECIAL REQUESTS : NONE CULTURE : NO GROWTH AFTER 24 HOURS REPORT STATUS : PRELIMINARY REPORT TEST:Blood Culture, Second Order STATUS:Unauthenticated BODY SITE: SOURCE:Blood COLLECTED DATE/TIME:05/08/21 3:34 PM Blood Culture, Second Order SPECIMEN DESCRIPTION : BLOOD RAC SPECIAL REQUESTS : NONE CULTURE : NO GROWTH AFTER 24 HOURS REPORT STATUS : PRELIMINARY REPORT Radiology Reports * Exam Date Time Procedure Performing Provider Status 05/08/21 7:45 PM Chest 2 Views Frontal and Lat Do , Tie n; Auth (Verified) Notes: (Chest 2 Views Frontal and Lat) Reason For Exam: Traumatic Chest Pain;Other: RESULT: Chest 2 Views Frontal and Lat Chest 2 Views Frontal and Lat Hx of Present Illness: fall; Reason: Other:; Traumatic Chest Pain; Clinical Question(s): Other:; Sternal fx? COMPARISON: 05/05/2021 FINDINGS: LINES AND TUBES: None. LUNGS AND PLEURA: Clear lungs. Normal pulmonary vascularity. No pleural effusion. No pneumothorax. HEART, MEDIASTINUM AND MAHESH: Heart is normal in size. Normal upper mediastinal and hilar contour. BONES AND SOFT TISSUES: No acute abnormality. IMPRESSION: No acute abnormality. WSN: [id number] Ordering Physician: Kirby Esparza Dictated By: Saqib Carroll MD Dictated Date/Time: 05/08/21 7:53 pm Reviewed By: Saqib Carroll MD Signed By: Saqib Carroll MD Signed Date/Time: 05/08/21 7:53 pm Transcribed By: ANDREAS Transcribed Date/Time: 05/08/21 7:53 pm Vital Signs Most recent to oldest [Reference Range]: 1 2 3 Oxygen Saturation [94-100 %] 100 % (05/09/21 2:44 PM) 100 % (05/09/21 1:55 PM) 97 % (05/09/21 12:28 PM) Pulse Rate [55-90 bpm] 70 bpm (05/09/21 2:44 PM) 71 bpm (05/09/21 1:55 PM) 69 bpm (05/09/21 12:28 PM) Blood Pressure [90-138/55-84 mm Hg] 110/60mm Hg (05/09/21 2:44 PM) 108/53mm Hg (05/09/21 1:55 PM) 125/61mm Hg (05/09/21 12:28 PM) Respiratory Rate [16-30 br/min] 18 br/min (05/09/21 2:44 PM) 18 br/min (05/09/21 1:55 PM) 18 br/min (05/09/21 12:28 PM) Temperature [96.8-100.4 DegF] 97.9 DegF (05/09/21 1:55 PM) 97.6 DegF (05/09/21 8:01 AM) 98.0 DegF (05/09/21 2:00 AM) Mode of Delivery (Oxygen) Room air (05/09/21 2:44 PM) Room air (05/09/21 1:55 PM) Room air (05/09/21 12:28 PM) Blood pressure sites Arm, right (05/09/21 2:44 PM) Arm, left (05/09/21 12:28 PM) Arm, left (05/09/21 11:03 AM) Temperature Route Oral (05/09/21 1:55 PM) Oral (05/09/21 8:01 AM) Oral (05/09/21 2:00 AM) Social History Social History Type Response Smoking Status Smoker, current stat us unknown; Type: Cigarettes; Other: 1/2-1 pk; entered on: 05/10/20 Sex
--- OUTSIDE RECORDS SUMMARY | 2023-04-11 15:16 | XMS_ITS | Continuity of Care Document ---
Author Name Unknown Organization [facility] Adult Address [address] [place] [address]- Care Team Providers Care Drafter Civil (Cad) Name Role Phone Luiz SALAS, Sonya Primary Care Physician Encounter [facility] [facility] Date(s): 07/25/21 - 08/24/21 [facility] [address] [place] [id number]- Allergies, Adverse Reactions, Alerts Substance Reaction Severity Status penicillin Active gabapentin Active Immunizations Given and Recorded Vaccine Date Status Refusal Reason influenza virus vaccine, inactivated 04/24/21 Give n influenza virus vaccine, inactivated 03/31/18 Efrain rded influenza virus vaccine, inactivated 01/09/17 Efrain rded SARS-CoV-2 (COVID-19) mRNA-1273 vaccine 02/23/21 R ecorded SARS-CoV-2 (COVID-19) mRNA-1273 vaccine 02/02/21 R ecorded SARS-CoV-2 (COVID-19) mRNA-1273 vaccine 09/21/20 R ecorded SARS-CoV-2 (COVID-19) mRNA-1273 vaccine 08/23/20 R ecorded tetanus/diphtheria/pertussis, acel(Tdap) 05/26/19 Recorded pneumococcal 23-valent vaccine 02/04/13 Recorded Not Given Vaccine Date Status Refusal Reason influenza virus vaccine, inactivated 05/26/20 Not Given Patient Refuses Medications atorvastatin 40 mg oral tablet 1 tablet = 40 mg, By Mouth, Daily at bedtime, # 30 tablet, 5 Refills, Maintenance, 05/02/21 10:38:00 EST, Tablet, [id number], Partial fill upon patient request if the prescription is for a schedule II opioid drug., 178, cm, 04/27/21 4:54:00 ES... Start Date: 05/02/21 Stop Date: 10/29/21 Status: Ordered cholecalciferol 50,000 intl units oral capsule 1 capsule = 50,000 International_Units, By Mouth, Every week, # 5 capsule, 11 Refills, Maintenance,05/02/21 10:36:00 EST, Capsule, [facility]/pharmacy #[id number], Partial fill upon patient request if the prescription is for a schedule II opioid drug., 178, cm, 0... Start Date: 05/02/21 Stop Date: 04/27/22 Status: Ordered clonazePAM 0.5 mg oral tablet 1 tablet = 0.5 mg, By Mouth, 3 times a day, # 90 tablet, 1 Refills, Maintenance, 07/25/21 17:16:00 EDT, Tablet, [facility]/pharmacy #[id number], Partial fill upon patient request if the prescription is for a schedule II opioid drug., 178, cm, 07/24/21 16:10:00 EDT... Start Date: 07/25/21 Stop Date: 09/23/21 Status: Ordered clopidogrel 75 mg oral tablet 1, tablet, By Mouth, Daily, # 90 tablet, Refills 1, Route to Pharmacy Electronically, [id number], 178, cm, 05/11/21 8:52:00 EST, Height, 81, kg, 05/06/21 2:22:00 EST, Dry Weight Start Date: 05/30/21 Status: Ordered glimepiride 4 mg oral tablet 1 tablet, By Mouth, 2 times a day, # 60 tablet, 5 Refills, Maintenance, 05/02/21 10:36:00 EST, [facility]/pharmacy #[id number], 178, cm, 04/27/21 4:54:00 EST, Height, 84.3, kg, 04/23/21 2:54:00 EST, Dry Weight Start Date: 05/02/21 Status: Ordered lisinopril 10 mg oral tablet 10 mg, 1, tablet, By Mouth, Daily, Maintenance, 07/23/21 14:55:00 EDT, Partial fill upon patient request if the prescription is for a schedule II opioid drug. Start Date: 07/23/21 Status: Ordered magnesium oxide 400 mg oral tablet 1 tablet = 400 mg, By Mouth, Daily, for 30 days, # 30 tablet, 5 Refills, Acute 10/29/21 10:39:00 EDT, 05/02/21 10:39:00 EST, Tablet, [facility]/pharmacy #[id number], Partial fill upon patient request if the prescription is for a schedule II opioid drug., 178, cm,... 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 Refills 0, Maintenance, 07/25/21 17:17:00 EDT, Route to Pharmacy Electronically, [facility]/pharmacy #[id number], Partial fillupon patient request if the prescription is for a s... Start Date: 07/25/21 Stop Date: 08/22/21 Status: Ordered pantoprazole 40 mg oral delayed [...] 05/02/21 10:38:00 EST, Route to Pharmacy Electronically, [facility]/pharmacy #[id number], Partial fill upon patient request if the prescription is for a sc... Start Date: 05/02/21 Stop Date: 10/29/21 Status: Ordered Vitamin B1 100 mg oral tablet 100 mg, 1, tablet, By Mouth, Daily, Maintenance, 07/23/21 14:57:00 EDT, Partial fill upon patient request if the prescription is for a schedule II opioid drug. Start Date: 07/23/21 Status: Ordered Problem List Condition Effective Dates Status Health Status Inform ant Benign hypertension(Confirmed) Active CAD (coronary artery disease)(Confirmed) 1 Active Chronic lower back pain(Confirmed) Active Diabetes mellitus(Confirmed) Active Encephalopathy(Confirmed) Active Dyslipidemia(Confirmed) Active Acute ischemic stroke(Confirmed) 2 11/07/20 Active 1angioplasty 2000; 3 stents at 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 S/P Elective Coiling of Unruptured Aneurysm with Subsequent Left-Sided Weakness: Acute nonhemorrhagic infarct in the RIGHT posterior frontal lobe: Social History Social History Type Response Smoking Status Smoker, current stat us unknown; Type: Cigarettes; Other: 1/2-1 pk; entered on: 05/10/20 Sex
--- OUTSIDE RECORDS SUMMARY | 2023-04-11 15:16 | XMS_ITS | Continuity of Care Document ---
Author Name Unknown Organization [facility] Adult Address [address] [place] [address]- Care Team Providers Care Office Machines Teacher Name Role Phone Luiz SALAS, Sonya Primary Care Physician [phone] Encounter [facility] [place] Date(s): 02/16/21 - 03/18/21 [facility] [address] [place] [address]- Allergies, Adverse Reactions, Alerts Substance Reaction Severity Status penicillin Active gabapentin Active Immunizations Given and Recorded Vaccine Date Status Refusal Reason SARS-CoV-2 (COVID-19) mRNA-1273 vaccine 09/21/20 R ecorded SARS-CoV-2 (COVID-19) mRNA-1273 vaccine 08/23/20 R ecorded tetanus/diphtheria/pertussis, acel(Tdap) 05/26/19 Recorded influenza virus vaccine, inactivated 03/31/18 Efrain rded influenza virus vaccine, inactivated 01/09/17 Efrain rded pneumococcal 23-valent vaccine 02/04/13 Recorded Not Given Vaccine Date Status Refusal Reason influenza virus vaccine, inactivated 05/26/20 Not Given Patient Refuses Medications amLODIPine 5 mg oral tablet 1 tablet = 5 mg, By Mouth, Daily, # 30 tablet, 5 Refills, Maintenance, 01/16/21 10:30:00 EDT, Tablet, [id number], Partial fill upon patient request if the prescription is for a schedule II opioid drug., 178, cm, 12/29/20 5:31:00 EDT, Height, 1... Start Date: 01/16/21 Stop Date: 07/15/21 Status: Ordered aspirin 81 mg oral tablet, chewable 81 mg, 1, tablet, By Mouth, Daily, # 30 tablet, Refills 5, Tot. Refills 5, Maintenance, 01/16/21 10:30:00 EDT, Route to Pharmacy Electronically, [id number], Partial fill upon patient request if the prescription is for a schedule II opioid drug... Start Date: 01/16/21 Status: Ordered atorvastatin 40 mg oral tablet 1 tablet = 40 mg, By Mouth, Daily at bedtime, # 30 tablet, 0 Refills, Maintenance, 11/14/20 11:15:00 EDT, Tablet, Partial fill upon patient request if the prescription is for a schedule II opioid drug. Start Date: 11/14/20 Stop Date: 12/14/20 Status: Ordered cholecalciferol 50,000 intl units oral capsule 1 capsule = 50,000 International_Units, By Mouth, Every week, # 5 capsule, 11 Refills, Maintenance,01/16/21 10:26:00 EDT, Capsule, [facility]/pharmacy #[id number], Partial fill upon patient request if the prescription is for a schedule II opioid drug., 178, cm, 0... Start Date: 01/16/21 Stop Date: 01/11/22 Status: Ordered clonazePAM 0.5 mg oral tablet 1 tablet = 0.5 mg, By Mouth, 3 times a day, # 90 tablet, 1 Refills, Maintenance, 01/16/21 10:52:00 EDT, Tablet, [facility]/pharmacy #[id number], Partial fill upon patient request if the prescription is for a schedule II opioid drug., 178, cm, 12/29/20 5:31:00 EDT,... Start Date: 01/16/21 Stop Date: 03/17/21 Status: Ordered glimepiride 4 mg oral tablet 1 tablet, By Mouth, 2 times a day, # 60 tablet, 2 Refills, Maintenance, 01/16/21 10:26:00 EDT, [facility]/pharmacy #[id number], 178, cm, 12/29/20 5:31:00 EDT, Height, 100, kg, 12/26/20 16:53:00 EDT, Dry Weight Start Date: 01/16/21 Status: Ordered lactulose 10 gm/15 ml oral syrup 15 mL, By Mouth, Daily, PRN NEEDED FOR CONSTIPATION, # 473 mL, 0 Refills, [id number], 30, TAKE 15 ML BY MOUTH DAILY NEEDED FOR CONSTIPATION, 178, cm, 02/03/21 12:52:00 EDT, Height, 100, kg, 12/26/20 16:53:00 EDT, Dry Weight Start Date: 03/01/21 Status: Ordered lisinopril 10 mg oral tablet 10 mg, 1, tablet, By Mouth, Daily, # 30 tablet, Refills 5, Tot. Refills 5, Maintenance, 01/16/21 10:29:00 EDT, Route to Pharmacy Electronically, [facility]/pharmacy #[id number], Partial fill upon patient request if the prescription is for a schedule II opioid drug... Start Date: 01/16/21 Stop Date: 07/15/21 Status: Ordered magnesium oxide 400 mg oral tablet 1 tablet = 400 mg, By Mouth, Daily, Maintenance, 12/26/20 9:17:00 EDT, Tablet, Partial fill upon patient request if the prescription is for a schedule II opioid drug. Start Date: 12/26/20 Status: Ordered metFORMIN 1000 mg oral tablet 1 tablet = 1,000 mg, By Mouth, 2 times a day, # 60 tablet, 0 Refills, Maintenance, 03/15/20 12:57:00 EST, Tablet, [facility], Partial fill upon patient request, 178, cm, 03/15/20 11:15:00 EST, Height, 105, kg, 03/12/20 6:12:00 EST, Dry W... 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 Refills 0, Maintenance, 02/24/21 15:51:00 EDT, Route to Pharmacy Electronically, [facility]/pharmacy #[id number], Partial fillupon patient request if the prescription is for a s... Start Date: 02/24/21 Stop Date: 03/24/21 Status: Ordered pantoprazole 40 mg oral delayed release tablet = 40 mg, By Mouth, Daily, # 30 each, 5 Refills, Maintenance, 01/16/21 10:28:00 EDT, EC Tablet, 178,cm, 12/29/20 5:31:00 EDT, Height, 100, kg, 12/26/20 16:53:00 EDT, Dry Weight Start Date: 01/16/21 Stop Date: 07/15/21 Status: Ordered Plavix 75 mg oral tablet 75 mg, 1, tablet, By Mouth, Daily, # 30 tablet, Refills 0, Tot. Refills 0, Maintenance, 12/28/20 12:50:00 EDT, Route to Pharmacy Electronically, [facility], Partial fill upon patient request if the prescription is for a schedule II opioi... Start Date: 12/28/20 Stop Date: 01/27/21 Status: Ordered raised toilet seat raised toilet seat, See Instructions, # 1 each, Refills 0, Tot. Refills 0, Maintenance, JAZMYN: lieftime DX: M54.5, I63.9, 01/24/21 10:39:00 EDT, Supply Start Date: 01/24/21 Status: Ordered Tums 500 mg oral tablet, chewable 500 mg, 1, tablet, Chew, 3 times a day, PRN, # 90 tablet, Refills 0, Maintenance, Dyspepsia, 11/14/20 11:16:00 EDT, Partial fill upon patient request if the prescription is for a schedule II opioid drug. Start Date: 11/14/20 Stop Date: 12/14/20 Status: Ordered Problem List Condition Effective Dates Status Health Status Inform ant Benign hypertension(Confirmed) Active CAD (coronary artery disease)(Confirmed) 1 Active Chronic lower back pain(Confirmed) Active Diabetes mellitus(Confirmed) Active Encephalopathy(Confirmed) Active Dyslipidemia(Confirmed) Active Acute ischemic stroke(Confirmed) 2 11/07/20 Active 1angioplasty 2000; 3 stents at [facility] 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 [...]
--- OUTSIDE RECORDS SUMMARY | 2023-04-11 15:17 | XMS_ITS | Continuity of Care Document ---
Author Name Unknown Organization [facility] Adult Address [address] [place] [address]- Care Team Providers Care University Archivist Name Role Phone Luiz SALAS, Sonya Primary Care Physician [facility] Date[facility]): 10/11/21 - 11/10/[address] [facility] [address] [place] [id number]- Allergies, Adverse Reactions, Alerts Substance Reaction Severity [...] inactivated 05/26/20 Not Given Patient Refuses Medications Aspirin Low Dose 81 mg oral tablet, chewable 1 tablet, By Mouth, Daily, # 28 tablet, 0 Refills, [facility], 160, cm, 10/22/21 7:52:00 EDT, Height, 81.7, kg, 10/21/21 21:31:00 EDT, Dry Weight Start Date: 10/25/21 Status: Ordered atorvastatin 40 mg oral tablet 1 tablet, By Mouth, Daily at bedtime, # 28 tablet, 0 Refills, [facility], 160, cm, 10/22/21 7:52:00 EDT, Height, 81.7, kg, 10/21/21 21:31:00 EDT, Dry Weight Start Date: 10/25/21 Status: Ordered bisacodyl 10 mg rectal suppository 1 supp = 10 mg, Rectally, Daily, PRN Constipation, 0 Refills, Maintenance, 10/14/21 13:48:00 EDT, Suppository, Partial fill upon patient request if the prescription is for a schedule II opioid drug. Start Date: 10/14/21 Status: Ordered clonazePAM 0.5 mg oral tablet 1 tablet = 0.5 mg, By Mouth, 3 times a day, PRN Anxiety, # 9 tablet, 0 Refills, Maintenance, 10/14/21 13:58:00 EDT, Tablet, Partial fill upon patient request if the prescription is for a schedule II opioid drug. Start Date: 10/14/21 Stop Date: 10/17/21 Status: Ordered clopidogrel 75 mg oral tablet 1, tablet, By Mouth, Daily, # 90 tablet, Refills 1, Route to Pharmacy Electronically, [id number], 178, cm, 05/11/21 8:52:00 EST, Height, 81, kg, 05/06/21 2:22:00 EST, Dry Weight Start Date: 05/30/21 Status: Ordered depends xl depends xl, See Instructions, # 120 each, Refills 11, Tot. Refills 11, Maintenance, DX: incontinence N39.46, 09/08/21 8:51:00 EDT, Supply Start Date: 09/08/21 Status: Ordered Docusate/Senna Tablet 1 tablet, By Mouth, 2 times a day, PRN Constipation, 0 Refills, Maintenance, 10/14/21 13:48:00 EDT,Tablet, Partial fill upon patient request if the prescription is for a schedule II opioid drug. Start Date: 10/14/21 Status: Ordered magnesium oxide 400 mg oral tablet 1 tablet = 400 mg, By Mouth, Daily, for 30 days, # 30 tablet, 5 Refills, Acute 02/28/22 7:56:00 EST, 09/01/21 7:56:00 EDT, Tablet, [facility], Partial fill upon patient request if theprescription is for a schedule II opioid drug., 178, cm... Start Date: 09/01/21 Stop Date: 02/28/22 Status: Ordered metFORMIN 1000 mg oral tablet 1 tablet = 1,000 mg, By Mouth, 2 times a day, # 60 tablet, 5 Refills, Maintenance, 09/07/21 10:46:00 EDT, Tablet, [facility], Partial fill upon patient request, 178, cm, 07/24/21 16:10:00 EDT, Height, 79.5, kg, 07/06/21 20:40:00 EDT, Dry W... Start Date: 09/07/21 Status: Ordered MiraLax oral powder for reconstitution = 17 Gm, By Mouth, Daily, PRN Constipation, dissolve in water before taking, # 527 Gm, 0 Refills, Maintenance, 09/26/21 10:30:00 EDT, REC Powder, [facility], Partial fill upon patientrequest if the prescription is for a schedule II opioid... Start Date: 09/26/21 Status: Ordered Narcan 4 mg/0.1 mL nasal spray = 4 mg, Nares, Both, Once, may repeat every 2 to 3 minutes until patient responds. for opioid overdose, 0 Refills, Maintenance, 10/21/21 1:15:00 EDT, Partial fill upon patient request if the prescription is for a schedule II opioid drug. Start Date: 10/21/21 Status: Ordered oxyCODONE 5 mg oral tablet 5 mg, 1, tablet, By Mouth, 4 times a day, PRN, Refills 0, Tot. Refills 0, Maintenance, as needed for pain, 10/21/21 1:16:00 EDT, Partial fill upon patient request if the prescription is for a schedule II opioid drug. Start Date: 10/21/21 Status: Ordered pantoprazole 40 mg oral delayed release tablet = 40 mg, By Mouth, Daily, # 30 each, 5 Refills, Maintenance, 09/01/21 7:57:00 EDT, EC Tablet, 178, cm, 07/24/21 16:10:00 EDT, Height, 79.5, kg, 07/06/21 20:40:00 EDT, Dry Weight Start Date: 09/01/21 Stop Date: 02/28/22 Status: Ordered raised toilet seat raised toilet seat, See Instructions, # 1 each, Refills 0, Tot. Refills 0, Maintenance, JAZMYN: lo DX: M54.5, I63.9, 01/24/21 10:39:00 EDT, Supply Start Date: 01/24/21 Status: Ordered SEROquel 25 mg oral tablet 12.5 mg, 0.5, tablet, By Mouth, 3 times a day, PRN, # 6 tablet, Refills 0, Tot. Refills 0, Maintenance, Agitation, 10/22/21 16:00:00 EDT, Route to Pharmacy Electronically, [facility], Partial fill upon patient request if the prescription... Start Date: 10/22/21 Stop Date: 10/25/21 Status: Ordered Tums 500 mg oral tablet, chewable 500 mg, 1, tablet, Chew, 3 times a day, PRN, # 90 tablet, Refills 5, Tot. Refills 5, Maintenance, Dyspepsia, 05/02/21 10:38:00 EST, Route to Pharmacy Electronically, [facility]/pharmacy #[id number], Partial fill upon patient request if the prescription is for a sc... Start Date: 05/02/21 Stop Date: 10/29/21 Status: Ordered Tylenol 8 Hour 650 mg oral tablet, extended release 2 tablet = 1,300 mg, By Mouth, Every 8 hours, PRN as needed for pain, or pain, temperature, # 24 tablet, 0 Refills, Maintenance, 10/21/21 1:11:00 EDT, ER Tablet, Partial fill upon patient request if the prescription is for a schedule II opioid drug. Start Date: 10/21/21 Status: Ordered Vitamin B1 100 mg oral tablet 100 mg, 1, tablet, By Mouth, Daily, for 90 days, # 90 tablet, Refills 1, Tot. Refills 1, Acute 03/06/22 11:35:00 EST, 09/07/21 11:35:00 EDT, Route to Pharmacy Electronically, [facility], Partial fill upon patient request if the prescriptio... Start Date: 09/07/21 Stop Date: 03/06/22 Status: Ordered Vitamin C 500 mg oral tablet, chewable 1 tablet = 500 mg, Chew, Daily, # 30 tablet, 5 Refills, Maintenance, 10/13/21 10:17:00 EDT, Chew Tablet, [facility], Partial fill upon patient request if the prescription is for a schedule II opioid drug., 177.8, cm, 10/13/21 9:21:00 EDT,... Start Date: 10/13/21 Stop Date: 04/11/22 Status: Ordered Problem List Condition Effective Dates Status Health Status Inform ant Benign hypertension(Confirmed) Active CAD (coronary artery disease)(Confirmed) 1 Active Chronic lower back pain(Confirmed) Active Diabetes mellitus(Confirmed) Active Encephalopathy(Confirmed) Active Acute ischemic stroke(Confirmed) 2 11/07/20 Active 1angioplasty 2000; 3 stents at [facility] 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 [...]
--- OUTSIDE RECORDS SUMMARY | 2023-04-11 15:17 | XMS_ITS | Continuity of Care Document ---
Author Name Unknown Organization [facility] Adult Address [address] [place] [address]- Care Team Providers Care Correctional Agency Director Name Role Phone Luiz ELECTRICAL POWER ENGINEER, Sonya Primary Care Physician [facility]counter [facility] Date(s): 08/14/22 - 09/13/22 [facility] [address] [place] [address]- Allergies, Adverse Reactions, Alerts Substance Reaction Severity Status penicillin 1 Active gabapentin Swelling Moderate Active sulfa drugs Active Other Food Allergy 2 N&V - Nausea and vomiting Active 1difficulty breathing/swollen lips 2Calf Liver Immunizations Given and Recorded Vaccine Date Status Refusal Reason influenza virus vaccine, inactivated 1 03/02/22 Gi jaime influenza virus vaccine, inactivated 04/24/21 Give n [...] vaccine, inactivated 05/26/20 Not Given Patient Refuses 1Result Comment: [facility]: [id number] Medications Aspirin Low Dose 81 mg oral tablet, chewable 1 tablet, By Mouth, Daily, # 90 tablet, 1 Refills, Maintenance, 07/31/22 13:23:00 [facility], 178, cm, 07/23/22 11:32:00 EDT, Height, 72.5, kg, 03/08/22 4:29:00 EST, Dry Weight Start Date: 07/31/22 Status: Ordered atorvastatin 40 mg oral tablet 1 tablet, By Mouth, Daily at bedtime, # 28 tablet, 5 Refills, Maintenance, 07/31/22 13:23:00 EDT, [facility], 178, cm, 07/23/22 11:32:00 EDT, Height, 72.5, kg, 03/08/22 4:29:00 EST, DryWeight Start Date: 07/31/22 Status: Ordered calcium carbonate 500 mg (200 mg elemental calcium) oral tablet, chewable 500 mg, 1, tablet, Chew, 3 times a day, PRN, # 45 tablet, Refills 0, Maintenance, as needed for dyspepsia, 03/08/22 2:38:00 EST, Partial fill upon patient request if the prescription is for a schedule II opioid drug. Start Date: 03/08/22 Status: Ordered clopidogrel 75 mg oral tablet 1, tablet, By Mouth, Daily, # 90 tablet, Refills 0, Maintenance, 08/01/22 12:43:00 EDT, Route to Pharmacy Electronically, [facility], 178, cm, 07/23/22 11:32:00 EDT, Height, 72.5, kg, 03/08/22 4:29:00 EST, Dry Weight Start Date: 08/01/22 Status: Ordered cyanocobalamin 1000 mcg oral tablet 1,000 mcg, 1, tablet, By Mouth, Daily, Refills 0, Maintenance, 01/17/22 12:35:00 EDT, Partial fill upon patient request if the prescription is for a schedule II opioid drug. Start Date: 01/17/22 Status: Ordered folic acid 1 mg oral tablet 1 mg, 1, tablet, By Mouth, Daily, Refills 0, Maintenance, 01/17/22 12:35:00 EDT, Partial fill upon patient request if the prescription is for a schedule II opioid drug. Start Date: 01/17/22 Status: Ordered glimepiride 4 mg oral tablet 1 tablet, By Mouth, 2 times a day, # 180 tablet, 0 Refills, Maintenance, 08/01/22 11:17:00 EDT, [facility], 178, cm, 07/23/22 11:32:00 EDT, Height, 72.5, kg, 03/08/22 4:29:00 EST, Dry Weight Start Date: 08/01/22 Status: Ordered large pull ups large pull ups, See Instructions, # 120 each, Refills 11, Tot. Refills 11, Maintenance, DX: incontinence N39.46, 02/09/22 14:03:00 EDT, Supply Start Date: 02/09/22 Status: Ordered lisinopril 5 mg oral tablet 1, tablet, By Mouth, Daily, # 90 tablet, Refills 1, Maintenance, 07/31/22 13:25:00 EDT, Route to Pharmacy Electronically, [facility], 178, cm, 07/23/22 11:32:00 EDT, Height, 72.5, kg, 03/08/22 4:29:00 EST, Dry Weight Start Date: 07/31/22 Status: Ordered magnesium oxide 400 mg oral tablet 1 tablet, By Mouth, Daily, # 30 tablet, 5 Refills, Maintenance, 07/18/22 8:15:00 EDT, [facility], 178, cm, 03/14/22 15:25:00 EST, Height, 72.5, kg, 03/08/22 4:29:00 EST, Dry Weight Start Date: 07/18/22 Stop Date: 01/14/23 Status: Ordered metFORMIN 1000 mg oral tablet 1 tablet, By Mouth, 2 times a day, # 180 tablet, 1 Refills, Maintenance, 07/31/22 13:25:00 EDT, [facility], 178, cm, 07/23/22 11:32:00 EDT, Height, 72.5, kg, 03/08/22 4:29:00 EST, Dry Weight Start Date: 07/31/22 Status: Ordered nicotine 21 mg/24 hr transdermal film, extended release 1 patch, Topically, Daily, # 30 patch, 0 Refills, Maintenance, 03/14/22 14:53:00 EST, Patch, [facility], Partial fill upon patient request if the prescription is for a schedule II opioid drug., 1 patch Topically Daily, 178, cm, 03/14/22... Start Date: 03/14/22 Status: Ordered pantoprazole 40 mg oral delayed release tablet 1 tablet, By Mouth, Daily, # 90 tablet, 0 Refills, Maintenance, 08/01/22 11:17:00 EDT, 178, cm, 07/23/22 11:32:00 EDT, Height, 72.5, kg, 03/08/22 4:29:00 EST, Dry Weight Start Date: 08/01/22 Status: Ordered pregabalin 25 mg oral capsule 1 capsule = 25 mg, By Mouth, 2 times a day, # 60 capsule, 0 Refills, Maintenance, 08/05/22 18:19:00EDT, Capsule, [facility], Partial fill upon patient request if the prescription is for a schedule II opioid drug., 178, cm, 08/04/22 10:55:... Start Date: 08/05/22 Stop Date: 09/04/22 Status: Ordered sertraline 25 mg oral tablet 1 tablet, By Mouth, Daily, # 90 tablet, 1 Refills, Maintenance, 07/31/22 13:26:00 EDT, [facility], 178, cm, 07/23/22 11:32:00 EDT, Height, 72.5, kg, 03/08/22 4:29:00 EST, Dry Weight Start Date: 07/31/22 Status: Ordered Vitamin B1 100 mg oral tablet 1, tablet, By Mouth, Daily, # 28 tablet, Refills 5, Tot. Refills 5, Maintenance, 07/19/22 8:33:00 EDT, Route to Pharmacy Electronically, [facility], 178, cm, 03/14/22 15:25:00 EST, Height, 72.5, kg, 03/08/22 4:29:00 EST, Dry Weight Start Date: 07/19/22 Status: Ordered Vitamin C 500 mg oral tablet 1 tablet, By Mouth, Daily, # 90 tablet, 0 Refills, Maintenance, 08/02/22 7:26:00 EDT, [facility], 178, cm, 07/23/22 11:32:00 EDT, Height, 72.5, kg, 03/08/22 4:29:00 EST, Dry Weight Start Date: 08/02/22 Status: Ordered Vitamin D3 50,000 intl units oral capsule 1 capsule, By Mouth, Every week, # 12 capsule, 0 Refills, Maintenance, 08/02/22 7:26:00 EDT, [facility], 178, cm, 07/23/22 11:32:00 EDT, Height, 72.5, kg, 03/08/22 4:29:00 EST, Dry Weight Start Date: 08/02/22 Status: Ordered Problem List Condition Confirmation Course Effective Dates Status H ealth Status Informant Benign hypertension Confirmed Active CAD (coronary artery disease) 1 Confirmed Active Chronic lower back pain Confirmed Active COPD without exacerbation Confirmed Active Vitamin B12 deficiency Confirmed Active Diabetes mellitus Confirmed Active Encephalopathy Confirmed Active Acute ischemic stroke 2 Confirmed 11/07/20 Active Macrocytic anemia Confirmed Active CLEOPATRA on CPAP Confirmed Active Frequent falls Confirmed Active Current smoker Confirmed Active 1angioplasty 2000; 3 stents at [facility] 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 S/P Elective Coiling of Unruptured Aneurysm with Subsequent Left-Sided Weakness: Acute nonhemorrhagic infarct in the RIGHT posterior frontal lobe: Social History Social History Type Response Smoking Status 10 or more cigarette s (1/2 pack or more)/day in last 30 days; Interested in cessation: No; Patient wants NRT during admission Yes; Tobacco use times per day: 1PPD; Number of years: 53; Total pack years: 53; Started at age: 13; entered on: 03/08/22 Sex Patient Care team information Care Team Personnel Name: Alicia Negron Position: S RN Member Role: Primary Care Nurse Name: Hanna Dailey Position: S RN Member Role: Primary Care Nurse Name: Gela Orosco RN Position: [facility] RN Member Role: Primary Care Nurse Name: Jessica Castrejon RN Position: S RN Member Role: Primary Care Nurse Name: Hien Hidalgo RN Position: S RN Member Role: Primary Care Nurse Name: Phuong Balderas RN Position: [facility] RN Member Role: Primary Care Nurse Name: Evelyn Mcnulty RN Position: S RN Member Role: Primary Care Nurse Name: Sonya Dee NP Position: [facility] PCO Associate Professional Member Role: PCP Address: Address: [address] [facility] [place] [address]- Name: Pola Reid RN Position: [facility] RN Supv Member Role: Primary Care Nurse Name: Betzy Beckford RN Position: [facility] RN Member Role: Primary Care Nurse Name: Zully Jara Position: [facility] RN Member Role: Primary Care Nurse Name: Yunior Bui RN Position: [facility] RN Member Role: Primary Care Nurse Name: Candace Liang RN Position: [facility] RN Member Role: Primary Care Nurse Name: Dedra Lezama Position: [facility] RN Member Role: Primary Care Nurse Name: Pat Fernando RN Position: [facility] RN Member Role: Primary Care Nurse Name: Randa Sagastume RN Position: [facility] RN Member Role: Primary Care Nurse Name: Mitra Patel Position: [facility] RN Member Role: Primary Care Nurse Name: Kacie Campbell RN Position: [facility] RN Member Role: Primary Care Nurse Name: Charito Vazquez RN Position: [facility] ED RN W/OE and Tasks Member Role: Primary Care Nurse Name: Dylan Bond RN Position: [facility] RN Member Role: Primary Care Nurse Name: Lydia Doherty RN Position: [facility] RN Member Role: Primary Care Nurse Name: Elie Davis RN Position: [facility] RN Member Role: Primary Care Nurse Name: Delfina Still RN Position: [facility] RN Member Role: Primary Care Nurse Name: Chandni Gibbons RN Position: [facility] RN Member Role: Primary Care Nurse Name: Viry Zacarias RN Position: [facility] RN Member Role: Primary Care Nurse Name: Kerri Cunha RN Position: [facility] Hospital [employer] Marketing Member Role: Primary Care Nurse Name: Atiya Mcintyre RN Position: [facility] RN Member Role: Primary Care Nurse Care Team Related Persons Name: SANJAY BRUNNERN Address: home [address] [place] [address] Name: IBETH CORRAL Address: home [address] [place] [address]
--- OUTSIDE RECORDS SUMMARY | 2023-04-11 15:17 | XMS_ITS | Continuity of Care Document ---
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 Name Role Phone Luiz SALAS, Sonya Primary Care Physician Encounter [facility] Date(s): 01/24/23 - 02/23/23 [facility] Adult [address] [place] [address]- Attending Physician: Jacobo Hill Admitting Physician: AdmtrJacobo Referring Physician: Admtr, Ar8 Allergies, Adverse Reactions, Alerts Substance Reaction Severity Status penicillin 1 Active gabapentin Swelling Moderate Active Other Food Allergy 2 N&V - Nausea and vomiting Active Onions Active sulfa drugs Active 1difficulty breathing/swollen lips 2Calf Liver Immunizations [...] 05/26/19 Recorded pneumococcal 23-valent vaccine 02/04/13 Recorded 1Result Comment: [facility]: [id number] Medications acetaminophen 325 mg oral tablet 650 mg, 2, tablet, By Mouth, Every 6 hours, PRN, Maintenance, pain/fever >100F, 01/03/23 14:40:00 EDT, Partial fill upon patient request if the prescription is for a schedule II opioid drug. Start Date: 01/03/23 Status: Ordered albuterol-ipratropium 3 mg-0.5 mg/3 ml inhalation solution 3 mL, BAND Nebulizer, Every 4 hours, PRN Wheezing/Shortness of Breath, 0 Refills, Maintenance, 10/26/22 13:25:00 EDT, Inhalation Solution, Partial fill upon patient request if the prescription is fora schedule II opioid drug. Start Date: 10/26/22 Status: Ordered Aspirin Low Dose 81 mg oral tablet, chewable 1 tablet = 81 mg, By Mouth, Daily, Maintenance, 11/28/22 14:17:00 EDT, Partial fill upon patient request if the prescription is for a schedule II opioid drug. Start Date: 11/28/22 Status: Ordered atorvastatin 40 mg oral tablet 1 tablet = 40 mg, By Mouth, Daily, Maintenance, 11/28/22 14:17:00 EDT, Partial fill upon patient request if the prescription is for a schedule II opioid drug. Start Date: 11/28/22 Status: Ordered calcium carbonate 500 mg (200 mg elemental calcium) oral tablet, chewable 500 mg, 1, tablet, Chew, 3 times a day, PRN, Refills 0, Maintenance, as needed for dyspepsia, 03/08/22 2:38:00 EST, Partial fill upon patient request if the prescription is for a schedule II opioid drug. Start Date: 03/08/22 Status: Ordered depends xl depends xl, See Instructions, # 120 each, Refills 11, Tot. Refills 11, Maintenance, DX: incontinence N39.46, 09/27/22 14:39:00 EDT, Supply Start Date: 09/27/22 Status: Ordered Fleet Enema 19 gm-7 gm rectal enema 118 mL, Rectally, Daily, PRN as needed for constipation, 0 Refills, Maintenance, 12/27/22 9:18:00 EDT, Enema, Partial fill upon patient request if the prescription is for a schedule II opioid drug. Start Date: 12/27/22 Status: Ordered Freestyle Lite Lancets See Instructions, # 200 each, Refills 11, Tot. Refills 11, Maintenance, Use to check blood sugar three times a day DX: Diabetes Mellitus E11.9, 11/23/22 13:49:00 EDT, Supply, 178, cm, 11/23/22 11:46:00 EDT, Height, 79.5, kg, 10/20/22 13:34:00 EDT, Tova. Start Date: 11/23/22 Stop Date: 11/18/23 Status: Ordered Freestyle Lite Monitor See Instructions, # 1 each, Refills 0, Tot. Refills 0, Maintenance, Use to check blood sugar three times a day DX: Diabetes Mellitus E11.9, 11/23/22 13:44:00 EDT, Supply, 178, cm, 11/23/22 11:46:00 EDT, Height, 79.5, kg, 10/20/22 13:34:00 EDT, Dry W... Start Date: 11/23/22 Status: Ordered Freestyle Lite Test Strips See Instructions, # 200 each, Refills 11, Tot. Refills 11, Maintenance, Use to check blood sugar three times a day DX: Diabetes Mellitus E11.9, 11/23/22 13:46:00 EDT, Supply, 178, cm, 11/23/22 11:46:00 EDT, Height, 79.5, kg, 10/20/22 13:34:00 EDT, . Start Date: 11/23/22 Status: Ordered Keppra 500 mg oral tablet 1 tablet = 500 mg, By Mouth, 2 times a day, 0 Refills, Maintenance, 12/18/22 12:28:00 EDT, Tablet, Partial fill upon patient request if the prescription is for a schedule II opioid drug. Start Date: 12/18/22 Status: Ordered large pull ups large pull ups, See Instructions, # 120 each, Refills 11, Tot. Refills 11, Maintenance, DX: incontinence N39.46, 02/09/22 14:03:00 EDT, Supply Start Date: 02/09/22 Status: Ordered lisinopril 5 mg oral tablet 5 mg, 1, tablet, By Mouth, Daily, Maintenance, 11/28/22 14:17:00 EDT, Partial fill upon patient request if the prescription is for a schedule II opioid drug. Start Date: 11/28/22 Status: Ordered Lovenox 40 mg/0.4 mL injectable solution 0.4 mL = 40 mg, Subcutaneous Injection, Daily, Maintenance, 01/03/23 14:34:00 EDT, Solution, Partial fill upon patient request if the prescription is for a schedule II opioid drug. Start Date: 01/03/23 Status: Ordered magnesium oxide 400 mg oral tablet 1 tablet = 400 mg, By Mouth, Daily, Maintenance, 11/28/22 14:17:00 EDT, Partial fill upon patient request if the prescription is for a schedule II opioid drug. Start Date: 11/28/22 Status: Ordered melatonin 3 mg oral tablet 1 tablet = 3 mg, By Mouth, Daily at bedtime, PRN Insomnia, 0 Refills, Maintenance, 10/26/22 13:25:00 EDT, Tablet, Partial fill upon patient request if the prescription is for a schedule II opioid drug. Start Date: 10/26/22 Status: Ordered metFORMIN 1000 mg oral tablet 1 tablet = 1,000 mg, By Mouth, 2 times a day, Maintenance, 11/28/22 14:17:00 EDT, Partial fill uponpatient request if the prescription is for a schedule II opioid drug. Start Date: 11/28/22 Status: Ordered oxyCODONE 5 mg oral capsule 1 capsule = 5 mg, By Mouth, Every 6 hours, PRN as needed for pain, 0 Refills, Maintenance, 01/03/2314:40:00 EDT, Capsule, Partial fill upon patient request if the prescription is for a schedule II opioid drug. Start Date: 01/03/23 Status: Ordered pantoprazole 40 mg oral delayed release tablet 1 tablet = 40 mg, By Mouth, Daily, Maintenance, 11/28/22 14:17:00 EDT Start Date: 11/28/22 Status: Ordered pregabalin 50 mg oral capsule 1 capsule = 50 mg, By Mouth, 2 times a day, Maintenance, 01/03/23 14:38:00 EDT, Capsule, Partial fill upon patient request if the prescription is for a schedule II opioid drug. Start Date: 01/03/23 Status: Ordered Senna Plus 50 mg-8.6 mg oral tablet 2 tablet, By Mouth, Daily, Maintenance, 01/03/23 14:37:00 EDT, Tablet, Partial fill upon patient request if the prescription is for a schedule II opioid drug. Start Date: 01/03/23 Status: Ordered sertraline 25 mg oral tablet 1 tablet = 25 mg, By Mouth, Daily, Maintenance, 11/28/22 14:17:00 EDT, Partial fill upon patient request if the prescription is for a schedule II opioid drug. Start Date: 11/28/22 Status: Ordered Vitamin B1 100 mg oral tablet 100 mg, 1, tablet, By Mouth, Daily, Maintenance, 11/28/22 14:17:00 EDT, Partial fill upon patient request if the prescription is for a schedule II opioid drug. Start Date: 11/28/22 Status: Ordered Vitamin C 500 mg oral tablet 1 tablet = 500 mg, By Mouth, Daily, Maintenance, 11/28/22 14:17:00 EDT, Partial fill upon patient request if the prescription is for a schedule II opioid drug. Start Date: 11/28/22 Status: Ordered Problem List Condition Confirmation Course [...] Confirmed Active 1angioplasty 2000; 3 stents at [facility] 2R frontal stroke secondary to [...] at age: 13; entered on: 03/08/22 Sex Male Patient Care team information Care Team Personnel Name: Adelia Landry RN Position: S RN Member Role: Primary Care Nurse Name: Alicia Negron Position: S RN Member Role: Primary Care Nurse Name: Jason Pereira RN Position: S RN Member Role: Primary Care Nurse Name: Hanna Dailey Position: [facility] RN Member Role: Primary Care Nurse Name: Nereida Dobbins RN Position: [facility] RN Member Role: Primary Care Nurse Name: Gela Orosco RN Position: [facility] RN Member Role: Primary Care Nurse Name: Jessica Castrejon RN Position: [facility] RN Member Role: Primary Care Nurse Name: Hien Hidalgo RN Position: [facility] RN Member Role: Primary Care Nurse Name: Phuong Balderas RN Position: [facility] SN RN Member Role: Primary Care Nurse Name: Evelyn Mcnulty RN Position: [facility] RN Member Role: Primary Care Nurse Name: Yanely Shanks RN Position: [facility] RN Member Role: Primary Care Nurse Name: Sonya Dee NP Position: [facility] PCO Associate Professional Member Role: PCP Address: Address: [address] [place] [address], [address] [place], [place] [address] Name: Siddhartha Andino RN Position: [facility] RN Member Role: Primary Care Nurse Name: Pola Reid RN Position: [facility] RN Supv Member Role: Primary Care Nurse Name: Betzy Beckford RN Position: [facility] RN Member Role: Primary Care Nurse Name: Susie Galicia RN Position: [facility] RN Member Role: Primary Care Nurse Name: Ezra Acuna RN Position: [facility] RN Member Role: Primary Care Nurse Name: Zully Jara Position: [facility] RN Member Role: Primary Care Nurse Name: Yunior Bui RN Position: [facility] RN Member Role: Primary Care Nurse Name: Candace Liang RN Position: [facility] RN Member Role: Primary Care Nurse Name: Marci Padilla RN Position: [facility] RN Member Role: Primary Care Nurse Name: Dedra Lezama Position: [facility] RN Member Role: Primary Care Nurse Name: Pat Fernando RN Position: [facility] RN Member Role: Primary Care Nurse Name: Marquita Siddiqui RN Position: [facility] RN Member Role: Primary Care Nurse Name: Lazara Krueger RN Position: [facility] RN Member Role: Primary Care Nurse Name: Randa Sagastume RN Position: [facility] RN Member Role: Primary Care Nurse Name: Mitra Patel Position: [facility] RN Member Role: Primary Care Nurse Name: Kacie Campbell NP Position: [facility] PCO Associate Professional Member Role: Primary Care Nurse Address: Address: [address] [place] [address] [place] [address]- Name: Charito Vazquez RN Position: [facility] ED RN W/OE and Tasks Member Role: Primary Care Nurse Name: Dylan Bond RN Position: [facility] RN Member Role: Primary Care Nurse Name: Lydia Doherty RN Position: [facility] RN Member Role: Primary Care Nurse Name: Elie Davis RN Position: [facility] RN Member Role: Primary Care Nurse Name: Delfina Still RN Position: [facility] RN Member Role: Primary Care Nurse Name: Mary Wagner RN Position: [facility] RN Member Role: Primary Care Nurse Name: Chandni Gibbons RN Position: [facility] RN Member Role: Primary Care Nurse Name: Reanna Chow RN Position: [facility] RN Member Role: Primary Care Nurse Name: Brayden Elizabeth RN Position: [facility] RN Member Role: Primary Care Nurse Name: Viry Zacarias RN Position: [facility] RN Member Role: Primary Care Nurse Name: Kerri Cunha RN Position: [facility] Hospital Geek Squad Agent Member Role: Primary Care Nurse Name: Atiya Mcintyre RN Position: [facility] RN Member Role: Primary Care Nurse Care Team Related Persons Name: IBETH CORRAL Address: home [address] [place] [address]
--- OUTSIDE RECORDS SUMMARY | 2023-04-11 15:17 | XMS_ITS | Continuity of Care Document ---
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 Operator Road Forms Name Role Phone Luiz SALAS, Sonya Primary Care Physician Encounter [facility] [place](s[place] 01/17/23 - 02/16/23 [facility] [address], [address], [address] [place] [id number] Allergies, Adverse Reactions, Alerts Substance Reaction Severity [...] pneumococcal 23-valent vaccine 02/04/13 Recorded 1Result Comment: [facility]: [id number] Medications acetaminophen 325 mg oral tablet 650 [...] Height, 79.5, kg, 10/20/22 13:34:00 EDT, Dry WMarla.. Start Date: 11/23/22 Status: Ordered Freestyle Lite [...] Confirmed Active 1angioplasty 2000; 3 stents at [facility] 2R frontal stroke secondary to [...] Care Nurse Name: Nereida Dobbins RN Position: [facility] RN Member Role: Primary Care Nurse Name: Gela Orosco RN Position: [facility] RN Member Role: Primary Care Nurse Name: Jessica Castrejon RN Position: [facility] RN Member Role: Primary Care Nurse Name: Hien Hidalgo RN Position: [facility] RN Member Role: Primary Care Nurse Name: Phuong Balderas RN Position: [facility] SN RN Member Role: Primary Care Nurse Name: Evelyn Mcnulty RN Position: [facility] RN Member Role: Primary Care Nurse Name: Yanely Shanks RN Position: [facility] RN Member Role: Primary Care Nurse Name: Sonya Dee NP Position: [facility] PCO Associate Professional Member Role: PCP Address: Address: [address] [place] [address], [address] Name: Siddhartha Anidno RN Position: [facility] RN Member Role: Primary Care Nurse Name: Pola Reid RN Position: [facility] RN Supv Member Role: Primary Care Nurse Name: Betzy Beckford RN Position: [facility] RN Member Role: Primary Care Nurse Name: Susie Galicia RN Position: [facility] RN Member Role: Primary Care Nurse Name: Ezra Acuna RN Position: [facility] RN Member Role: Primary Care Nurse Name: Zully Jara Position: [facility] RN Member Role: Primary Care Nurse Name: Yunior Bui RN Position: [facility] RN Member Role: Primary Care Nurse Name: Candace Liang RN Position: [facility] RN Member Role: Primary Care Nurse Name: Marci Padilla RN Position: [facility] RN Member Role: Primary Care Nurse Name: Dedra Lezama Position: [facility] RN Member Role: Primary Care Nurse Name: Pat Fernando RN Position: [facility] RN Member Role: Primary Care Nurse Name: Marquita Siddiqui RN Position: [facility] RN Member Role: Primary Care Nurse Name: Lazara Krueger RN Position: [facility] RN Member Role: Primary Care Nurse Name: Randa Sagastume RN Position: [facility] RN Member Role: Primary Care Nurse Name: Mitra Patel Position: [facility] RN Member Role: Primary Care Nurse Name: Kacie Campbell NP Position: [facility] PCO Associate Professional Member Role: Primary Care Nurse Address: Address: [address] [place] [address]- [place] Name: Charito Vazquez RN Position: [facility] ED RN W/OE and Tasks Member Role: Primary Care Nurse Name: Dylan Bond RN Position: [facility] RN Member Role: Primary Care Nurse Name: Lydia Doherty RN Position: [facility] RN Member Role: Primary Care Nurse Name: Elie Davis RN Position: [facility] RN Member Role: Primary Care Nurse Name: Delfina Still RN Position: [facility] RN Member Role: Primary Care Nurse Name: Mary Wagner RN Position: [facility] RN Member Role: Primary Care Nurse Name: Chandni Gibbons RN Position: [facility] RN Member Role: Primary Care Nurse Name: Reanna Chow RN Position: [facility] RN Member Role: Primary Care Nurse Name: Brayden Elizabeth RN Position: [facility] RN Member Role: Primary Care Nurse Name: Viry Zacarias RN Position: [facility] RN Member Role: Primary Care Nurse Name: Kerri Cunha RN Position: [facility] Hospital Estate Planning Counselor Member Role: Primary Care Nurse Name: Atiya Mcintyre RN Position: [facility] RN Member Role: Primary Care Nurse Care Team Related Persons Name: FRANCISSANJAY VALLEJON Address: home [address] [place] [address]
--- OUTSIDE RECORDS SUMMARY | 2023-04-11 15:17 | XMS_ITS | Continuity of Care Document ---
Author Name Unknown Organization [facility] Adult Address [address] [place] [address]- Care Team Providers Care Coal Trammer Name Role Phone Luiz SALAS, Sonya Primary Care Physician [phone] [place] [facility] [place]21 [place] 09/30/21 [facility] Adult [address] [place] [id number]- Allergies, Adverse Reactions, Alerts Substance Reaction Severity [...] Low Dose 81 mg oral tablet, chewable 0 Refills, Maintenance, 09/22/21 20:01:00 EDT, Partial fill upon patient request if the prescription is for a schedule II opioid drug. Start Date: 09/22/21 Status: Ordered atorvastatin 40 mg oral tablet 1 tablet = 40 mg, By Mouth, Daily at bedtime, # 30 tablet, 5 Refills, Maintenance, 05/02/21 10:38:00 EST, Tablet, [facility]/pharmacy #[id number], Partial fill upon patient request if the prescription is for a schedule II opioid drug., 178, cm, 04/27/21 4:54:00 ES... Start Date: 05/02/21 Stop Date: 10/29/21 Status: Ordered cholecalciferol 50,000 intl units oral capsule 1 capsule = 50,000 International_Units, By Mouth, Every week, # 5 capsule, 11 Refills, Maintenance,09/07/21 11:35:00 EDT, Capsule, [facility], Partial fill upon patient request if the prescription is for a schedule II opioid drug., 178, c... Start Date: 09/07/21 Stop Date: 09/02/22 Status: Ordered clonazePAM 0.5 mg oral tablet 1 tablet = 0.5 mg, By Mouth, 3 times a day, to be given at day rogram, # 84 tablet, 1 Refills, Maintenance, 09/13/21 15:41:00 EDT, Tablet, [facility], Partial fill upon patient request if the prescription is for a schedule II opioid drug.,... Start Date: 09/13/21 Stop Date: 11/08/21 Status: Ordered clopidogrel 75 mg oral tablet 1, tablet, By Mouth, Daily, # 90 tablet, Refills 1, Route to Pharmacy Electronically, [id number], 178, cm, 05/11/21 8:52:00 EST, Height, 81, kg, 05/06/21 2:22:00 EST, Dry Weight Start Date: 05/30/21 Status: Ordered depends xl depends xl, See Instructions, # 120 each, Refills 11, Tot. Refills 11, Maintenance, DX: incontinence N39.46, 09/08/21 8:51:00 EDT, Supply Start Date: 09/08/21 Status: Ordered lisinopril 10 mg oral tablet 10 mg, 1, tablet, By Mouth, Daily, # 30 tablet, Refills 5, Tot. Refills 5, Maintenance, 09/01/21 7:56:00 EDT, Route to Pharmacy Electronically, [facility], Partial fill upon patient request if the prescription is for a schedule II opioid d... Start Date: 09/01/21 Stop Date: 02/28/22 Status: Ordered magnesium oxide 400 mg oral [...] II opioid... Start Date: 09/26/21 Status: Ordered oxyCODONE 5 mg oral tablet 5 mg, 1, tablet, By Mouth, 5 times a day, BLUE LEATHER SETTER checked. fill on 09/15/21 20 tabs go to day program, #140 tablet, Refills 0, Tot. Refills 0, Maintenance, 09/14/21 17:25:00 EDT, Route to Pharmacy Electronically, [facility], Partial fill upon... Start Date: 09/14/21 Stop Date: 10/12/21 Status: Ordered pantoprazole 40 mg oral delayed [...] 05/02/21 10:38:00 EST, Route to Pharmacy Electronically, [facility]/pharmacy #[id number], Partial fill upon patient request if the [...] Daily, # 30 tablet, 5 Refills, Maintenance, 08/25/21 14:51:00 EDT, Chew Tablet, [facility], Partial fill upon patient request if the prescription is for a schedule II opioid drug., 178, cm, 07/24/21 16:10:00 EDT, H... Start Date: 08/25/21 Stop Date: 02/21/22 Status: Ordered Problem List Condition Effective Dates Status Health Status Inform ant Benign hypertension(Confirmed) Active CAD (coronary artery disease)(Confirmed) 1 Active Chronic lower back pain(Confirmed) Active Diabetes mellitus(Confirmed) Active Encephalopathy(Confirmed) Active Dyslipidemia(Confirmed) Active Acute ischemic stroke(Confirmed) 2 11/07/20 Active 1angioplasty 2000; 3 stents at 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
--- OUTSIDE RECORDS SUMMARY | 2023-04-11 15:17 | XMS_ITS | Continuity of Care Document ---
Author Name Unknown Organization [facility] Adult Address [address] [place] [address]- Care Team Providers Care Catalogue And Special Products Manager Name Role Phone Luiz SALAS, Sonya Primary Care Physician Encounter [facility] Date(s): 12/23/20 - 01/22/21 [facility] Adult [address] [place] [address]- Allergies, Adverse Reactions, Alerts Substance Reaction Severity [...] 5 Refills, Maintenance, 01/16/21 10:30:00 EDT, Tablet, [facility]/pharmacy #[id number], Partial fill upon patient request if the [...] capsule, 11 Refills, Maintenance,01/16/21 10:26:00 EDT, Capsule, [facility]/pharmacy #[id number], Partial fill upon patient request if the prescription is for a schedule II opioid drug., 178, cm, 0... Start Date: 01/16/21 Stop Date: 01/11/22 Status: Ordered clonazePAM 0.5 mg oral tablet 1 tablet = 0.5 mg, By Mouth, 3 times a day, # 90 tablet, 1 Refills, Maintenance, 01/16/21 10:52:00 EDT, Tablet, [facility]/pharmacy #[id number], Partial fill upon patient request if the prescription is for a schedule II opioid drug., 178, cm, 12/29/20 5:31:00 EDT,... Start Date: 01/16/21 Stop Date: 03/17/21 Status: Ordered glimepiride 4 mg oral tablet 1 tablet, By Mouth, 2 times a day, # 60 tablet, 2 Refills, Maintenance, 01/16/21 10:26:00 EDT, [facility]pharmacy [facility][id number], 178, cm, 12/29/20 5:31:00 EDT, Height, 100, kg, 12/26/20 16:53:00 EDT, Dry Weight Start Date: 01/16/21 Status: Ordered lisinopril 10 mg oral tablet 10 mg, 1, tablet, By Mouth, Daily, # 30 tablet, Refills 5, Tot. Refills 5, Maintenance, 01/16/21 10:29:00 EDT, Route to Pharmacy Electronically, [facility]/pharmacy #[id number], Partial fill upon patient request [...] 0 Refills, Maintenance, 03/15/20 12:57:00 EST, Tablet, [facility], Partial fill upon patient request, 178, cm, 03/15/20 11:15:00 EST, Height, 105, kg, 03/12/20 6:12:00 EST, Dry W... Start Date: 03/15/20 Status: Ordered oxyCODONE 5 mg oral tablet 5 mg, 1, tablet, By Mouth, 5 times a day, ENTERPRISE SYSTEMS ENGINEER checked., # 140 tablet, Refills 0, Tot. Refills 0, Maintenance, 01/16/21 10:52:00 EDT, Route to Pharmacy Electronically, [facility]/pharmacy #[id number], Partial fillupon patient request if the prescription is for a s... Start Date: 01/16/21 Stop Date: 02/13/21 Status: Ordered pantoprazole 40 mg oral delayed [...] 12/28/20 12:50:00 EDT, Route to Pharmacy Electronically, [facility], Partial fill upon patient request if the prescription is for a schedule II opioi... Start Date: 12/28/20 Stop Date: 01/27/21 Status: Ordered Tums 500 mg oral tablet, [...] 11/07/20 Active 1angioplasty 2000; 3 stents at [facility] 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 [...]
--- OUTSIDE RECORDS SUMMARY | 2023-04-11 15:17 | XMS_ITS | Continuity of Care Document ---
Author Name Unknown Organization [facility] Adult Address [address] [place] [address]- Care Team Providers Care Bookkeeping Manager Name Role Phone Luiz LEATHER GOODS SALES REPRESENTATIVE, Sonya Primary Care Physician [facility]counter [facility] Date(s): 04/20/22 - 05/20/22 [facility] Adult [address] [place] [address]- Allergies, Adverse Reactions, Alerts Substance Reaction Severity [...] 05/26/20 Not Given Patient Refuses 1Result Comment: [facility]: [id number] Medications Aspirin Low Dose 81 mg oral tablet, chewable 1 tablet, By Mouth, Daily, # 28 tablet, 12 Refills, [facility], 178, cm, 11/10/21 9:32:00 EDT, Height, 77.5, kg, 11/10/21 9:32:00 EDT, Dry Weight Start Date: 11/22/21 Status: Ordered atorvastatin 40 mg oral tablet 1 tablet, By Mouth, Daily at bedtime, # 90 tablet, 0 Refills, Maintenance, 05/10/22 9:49:00 EST, [facility], 178, cm, 03/14/22 15:25:00 EST, Height, 72.5, kg, 03/08/22 4:29:00 EST, Dry Weight Start Date: 05/10/22 Stop Date: 08/08/22 Status: Ordered calcium carbonate 500 mg (200 [...] Daily, # 90 tablet, Refills 0, Maintenance, 05/10/22 12:29:00 EST, Route to Pharmacy Electronically, [facility], 178, cm, 03/14/22 15:25:00 EST, Height, 72.5, kg, 03/08/22 4:29:00 EST, Dry Weight Start Date: 05/10/22 Status: Ordered cyanocobalamin 1000 mcg oral tablet [...] day, # 180 tablet, 0 Refills, Maintenance, 05/10/22 9:49:00 EST, [facility], cm, 03/14/22 15:25:00 EST, Height, 72.5, kg, 03/08/22 4:29:00 EST, Dry Weight Start Date: 05/10/22 Status: Ordered large pull ups large pull ups, See Instructions, # 120 each, Refills 11, Tot. Refills 11, Maintenance, DX: incontinence N39.46, 02/09/22 14:03:00 EDT, Supply Start Date: 02/09/22 Status: Ordered lisinopril 5 mg oral tablet 1, tablet, By Mouth, Daily, # 28 tablet, Refills 5, Maintenance, 04/11/22 14:56:00 EST, [facility], [facility], 178, cm, 03/14/22 15:25:00 EST, Height, 72.5, kg, 03/08/22 4:29:00 EST, Dry Weight Start Date: 04/11/22 Status: Ordered magnesium oxide 400 mg oral tablet 1 tablet, By Mouth, Daily, # 28 tablet, 5 Refills, Maintenance, 01/17/22 14:43:00 EDT, [facility], 177, cm, 01/17/22 7:37:00 EDT, Height, 75, kg, 01/11/22 12:33:00 EDT, Dry Weight Start Date: 01/17/22 Status: Ordered metFORMIN 1000 mg oral tablet 1 tablet, By Mouth, 2 times a day, # 56 tablet, 5 Refills, Maintenance, 01/17/22 14:43:00 EDT, [facility], 177, cm, 01/17/22 7:37:00 EDT, Height, 75, kg, 01/11/22 12:33:00 EDT, Dry Weight Start Date: 01/17/22 Status: Ordered nicotine 21 mg/24 hr transdermal film, extended release 1 patch, Topically, Daily, # 30 patch, 0 Refills, Maintenance, 03/14/22 14:53:00 EST, Patch, [facility], Partial fill upon patient request if the prescription is for a schedule II opioid drug., 1 patch Topically Daily, 178, cm, 11/23/22... Start Date: 03/14/22 Status: Ordered pantoprazole 40 mg oral delayed release tablet 1 tablet, By Mouth, Daily, # 28 tablet, 5 Refills, Maintenance, 01/17/22 14:43:00 EDT, 177, cm, 01/17/22 7:37:00 EDT, Height, 75, kg, 01/11/22 12:33:00 EDT, Dry Weight Start Date: 01/17/22 Status: Ordered sertraline 25 mg oral tablet 1 tablet, By Mouth, Daily, # 28 tablet, 5 Refills, Maintenance, 04/11/22 14:56:00 EST, [facility], 178, cm, 03/14/22 15:25:00 EST, Height, 72.5, kg, 03/08/22 4:29:00 EST, Dry Weight Start Date: 04/11/22 Status: Ordered Vitamin B1 100 mg oral tablet 1, tablet, By Mouth, Daily, # 28 tablet, Refills 5, Tot. Refills 5, Maintenance, 02/13/22 15:08:00 EDT, Route to Pharmacy Electronically, [facility], 177, cm, 02/13/22 14:54:00 EDT, Height, 75, kg, 01/11/22 12:33:00 EDT, Dry Weight Start Date: 02/13/22 Status: Ordered Vitamin C 500 mg oral tablet 1 tablet, By Mouth, Daily, # 28 tablet, 5 Refills, Maintenance, 04/11/22 14:56:00 EST, [facility], 178, cm, 03/14/22 15:25:00 EST, Height, 72.5, kg, 03/08/22 4:29:00 EST, Dry Weight Start Date: 04/11/22 Status: Ordered Vitamin D3 50,000 intl units oral capsule 1 capsule, By Mouth, Every week, # 12 capsule, 0 Refills, Maintenance, 05/10/22 9:49:00 EST, [facility], 178, cm, 03/14/22 15:25:00 EST, Height, 72.5, kg, 03/08/22 4:29:00 EST, Dry Weight Start Date: 05/10/22 Status: Ordered Problem List Condition Confirmation Course [...] Confirmed Active 1angioplasty 2000; 3 stents at [facility] 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 [...] Care Team Personnel Name: Alicia Negron Position: [facility] RN Member Role: Primary Care Nurse Name: Ewa Everett RN Position: [facility] RN Member Role: Primary Care Nurse Name: Hanna Dailey Position: [facility] RN Member Role: Primary Care Nurse Name: Gela Orosco RN Position: [facility] RN Member Role: Primary Care Nurse Name: Jessica Castrejon RN Position: [facility] RN Member Role: Primary Care Nurse Name: Hien Hidalgo RN Position: [facility] RN Member Role: Primary Care Nurse Name: Evelyn Mcnulty RN Position: [facility] RN Member Role: Primary Care Nurse Name: Sonya Dee NP Position: [facility] PCO Associate Professional Member Role: PCP Address: Address: [address] [place] [address], [address] [place], [place] [address] Name: Pola Reid RN Position: [facility] RN Jia Member Role: Primary Care Nurse Name: Betzy Beckford RN Position: S RN Member Role: Primary Care Nurse Name: Karley Perry Position: S RN Member Role: Primary Care Nurse Name: Zully Jara Position: S RN Member Role: Primary Care Nurse Name: Yunior Bui RN Position: [facility] RN Member Role: Primary Care Nurse Name: Candace Liang RN Position: [facility] RN Member Role: Primary Care Nurse Name: Dedra Lezama Position: [facility] RN Member Role: Primary Care Nurse Name: Pat Fernando RN Position: [facility] RN Member Role: Primary Care Nurse Name: Randa Sagastume RN Position: [facility] RN Member Role: Primary Care Nurse Name: Mitra Patel Position: [facility] RN Member Role: Primary Care Nurse Name: Kacie Campbell RN Position: [facility] RN Member Role: Primary Care Nurse Name: Charito Vazquez RN Position: [facility] ED RN W/OE and Tasks Member Role: Primary Care Nurse Name: Ronda GARAY cecilia Position: [facility] RN Member Role: Primary Care Nurse Name: Phuong Delgado RN Position: [facility] RN Member Role: Primary Care Nurse Name: Lydia Doherty RN Position: [facility] RN Member Role: Primary Care Nurse Name: Elie Davis RN Position: [facility] RN Member Role: Primary Care Nurse Name: Delfina Still RN Position: [facility] RN Member Role: Primary Care Nurse Name: Chandni Gibbons RN Position: [facility] RN Member Role: Primary Care Nurse Name: Rosio Gibbons RN Position: [facility] RN Member Role: Primary Care Nurse Name: Viry Zacarias RN Position: [facility] RN Member Role: Primary Care Nurse Name: Kerri Cunha RN Position: [facility] Supervisor Carding Member Role: Primary Care Nurse Name: Atiya Mcintyre RN Position: [facility] RN Member Role: Primary Care Nurse Care Team Related Persons Name: IBETH BRUNNER Address: home [address] [place], [place] Name: IBETH CORRAL Address: home [address] [place], [place]
--- OUTSIDE RECORDS SUMMARY | 2023-04-11 15:17 | XMS_ITS | Continuity of Care Document ---
Author Name Unknown Organization [facility] Adult Address [address] [place] [address]- Care Team Providers Care Press Operator Automatic Name Role Phone Luiz SALAS, Sonya Primary Care Physician [phone] [place]counter [facility] [place](s): 08/16/20 - 12/14/20 [facility] Adult [address] [place] [address]- Attending Physician: Sonya Dee NP Allergies, Adverse Reactions, Alerts Substance Reaction Severity [...] inactivated 05/26/20 Not Given Patient Refuses Medications aspirin 81 mg oral tablet, chewable 81 mg, 1, tablet, By Mouth, Daily, # 30 tablet, Refills 0, Maintenance, 05/25/20 6:48:00 EST, Partial fill upon patient request if the prescription is for a schedule II opioid drug. Start Date: 05/25/20 Status: Ordered atorvastatin 40 mg oral tablet [...] Every week, # 5 capsule, 11 Refills, Maintenance,08/19/20 5:59:00 EDT, Capsule, [id number], Partial fill upon patient request if the prescription is for a schedule II opioid drug., 17... Start Date: 08/19/20 Stop Date: 08/14/21 Status: Ordered clonazePAM 0.5 mg oral tablet TK 1 T PO TID PRN ANXIETY Start Date: 03/12/20 Status: Ordered clonazePAM 0.5 mg oral tablet 1 tablet = 0.5 mg, By Mouth, 3 times a day, # 90 tablet, 1 Refills, Maintenance, 12/05/20 17:53:00 EDT, Tablet, [id number], Partial fill upon patient request if the prescription is for a schedule II opioid drug., 178, cm, 12/05/20 16:... Start Date: 12/05/20 Stop Date: 02/03/21 Status: Ordered Freestyle Lite Test Strips See Instructions, # 200 each, Refills 4, Tot. Refills 4, Maintenance, DX: E11.9 test blood sugar 4 times daily, 06/14/20 9:41:00 EST, Supply, 177.8, cm, 06/14/20 9:36:00 EST, Height, 104.5, kg, 05/25/20 17:45:00 EST, Dry Weight Start Date: 06/14/20 Status: Ordered glimepiride 4 mg oral tablet 1 tablet, By Mouth, 2 times a day, # 60 tablet, 2 Refills, Maintenance, 11/18/20 10:12:00 EDT, [id number], 178, cm, 11/14/20 9:36:00 EDT, Height, 100, kg, 11/07/20 7:34:00 EDT, Dry Weight Start Date: 11/18/20 Status: Ordered lisinopril 20 mg oral tablet 40 mg, 2, tablet, By Mouth, Daily, # 30 tablet, Refills 0, Maintenance, 11/14/20 11:15:00 EDT, Partial fill upon patient request if the prescription is for a schedule II opioid drug. Start Date: 11/14/20 Stop Date: 12/14/20 Status: Ordered metFORMIN 1000 mg oral tablet 1 tablet = 1,000 mg, By Mouth, 2 times a day, # 60 tablet, 0 Refills, Maintenance, 03/15/20 12:57:00 EST, Tablet, [facility], Partial fill upon patient request, 178, cm, 03/15/20 11:15:00 EST, Height, 105, kg, 03/12/20 6:12:00 EST, Dry W... 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 Refills 0, Maintenance, 12/05/20 17:51:00 EDT, [id number], Partial fill upon patient request if the prescription i... 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 S/P Elective Coiling of Unruptured Aneurysm with Subsequent Left-Sided Weakness: Acute nonhemorrhagic infarct in the RIGHT posterior frontal lobe: Vital Signs Most recent to oldest [Reference Range]: 1 Height 178 cm (11/14/20 9:36 AM) Social History Social History Type Response Smoking Status Smoker, current stat us unknown; Type: Cigarettes; Other: 1/2-1 pk; entered on: 05/10/20 Sex
--- OUTSIDE RECORDS SUMMARY | 2023-04-11 15:17 | XMS_ITS | Continuity of Care Document ---
Author Name Unknown Organization [facility] Adult Address [address] [place] [address]- Care Team Providers Care Seal Delivery Vehicle Officer Name Role Phone Luiz SALAS, Sonya Primary Care Physician [place] [facility] [place] 02[place]22 [facility] [address] [place] [id number]- Attending Physician: Sonya Dee NP Allergies, Adverse Reactions, Alerts Substance Reaction Severity Status penicillin 1 Active gabapentin Swelling Moderate Active sulfa drugs Active 1difficulty breathing/swollen lips Immunizations Given and Recorded Vaccine Date Status [...] 40 mg, By Mouth, Daily at bedtime, 0 Refills, Maintenance, 11/28/21 19:32:00 EDT, Tablet, Partial fill upon patient request if the prescription is for a schedule II opioid drug. Start Date: 11/28/21 Status: Ordered clonazePAM 0.5 mg oral tablet 1 tablet = 0.5 mg, By Mouth, 2 times a day, PRN Anxiety, # 60 tablet, 0 Refills, Maintenance, 12/06/21 17:24:00 EDT, Tablet, [facility], Partial fill upon patient request if the prescription is for a schedule II opioid drug., 178, cm, 11/20... Start Date: 12/06/21 Stop Date: 01/05/22 Status: Ordered clopidogrel 75 mg oral tablet 75 mg, 1, tablet, By Mouth, Daily, # 30 tablet, Refills 5, Tot. Refills 5, Maintenance, 12/06/21 8:38:00 EDT, Route to Pharmacy Electronically, [facility], Partial fill upon patient request if the prescription is for a schedule II opioid d... Start Date: 12/06/21 Stop Date: 06/04/22 Status: Ordered cyanocobalamin 1000 mcg oral tablet [...] 5 Refills, Maintenance, 01/17/22 14:43:00 EDT, [facility], 177, cm, 01/17/22 7:37:00 EDT, Height, 75, kg, 01/11/22 12:33:00 EDT, Dry Weight Start Date: 01/17/22 Status: Ordered large pull ups large pull ups, See Instructions, # 120 each, Refills 11, Tot. Refills 11, Maintenance, DX: incontinence N39.46, 02/09/22 14:03:00 EDT, Supply Start Date: 02/09/22 Status: Ordered magnesium oxide 400 mg oral tablet 1 tablet, By Mouth, Daily, # 28 tablet, 5 Refills, Maintenance, 01/17/22 14:43:00 EDT, [facility], 177, cm, 01/17/22 7:37:00 EDT, Height, 75, kg, 01/11/22 12:33:00 EDT, Dry Weight Start Date: 01/17/22 Status: Ordered metFORMIN 1000 mg oral tablet 1 tablet, By Mouth, 2 times a day, # 56 tablet, 5 Refills, Maintenance, 01/17/22 14:43:00 EDT, [facility], 177, cm, 01/17/22 7:37:00 EDT, Height, 75, kg, 01/11/22 12:33:00 EDT, Dry Weight Start Date: 01/17/22 Status: Ordered pantoprazole 40 mg oral delayed release tablet 1 tablet, By Mouth, Daily, # 28 tablet, 5 Refills, Maintenance, 01/17/22 14:43:00 EDT, 177, cm, 01/17/22 7:37:00 EDT, Height, 75, kg, 01/11/22 12:33:00 EDT, Dry Weight Start Date: 01/17/22 Status: Ordered sertraline 25 mg oral tablet 1 tablet = 25 mg, By Mouth, Daily, 0 Refills, Maintenance, 01/17/22 12:35:00 EDT, Tablet, Partial fill upon patient request if the prescription is for a schedule II opioid drug. Start Date: 01/17/22 Status: Ordered Vitamin B1 100 mg oral [...] tablet = 500 mg, By Mouth, Daily, # 30 tablet, 0 Refills, Maintenance, 11/28/21 19:32:00 EDT, Tablet, Partial fill upon patient request if the prescription is for a schedule II opioid drug. Start Date: 11/28/21 Status: Ordered Zestril 5 mg oral tablet 5 mg, 1, tablet, By Mouth, Daily, Refills 0, Maintenance, 01/10/22 11:57:00 EDT, Partial fill upon patient request if the prescription is for a schedule II opioid drug. 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 S/P Elective Coiling of Unruptured Aneurysm with Subsequent Left-Sided Weakness: Acute nonhemorrhagic infarct in the RIGHT posterior frontal lobe: Vital Signs Most recent to oldest [Reference Range]: 1 Height 177 cm (02/13/22 2:54 PM) Social History Social History Type Response Smoking Status 5-9 cigarettes (betw een 1/4 to 1/2 pack)/day in last 30 days entered on: 11/28/21 Sex Patient Care team information Personnel Name: Sonya Dee NP Address: Address: [address], [address] [place], [place] [address]
--- OUTSIDE RECORDS SUMMARY | 2023-04-11 15:17 | XMS_ITS | Continuity of Care Document ---
Author Name Unknown Organization [facility] Adult Address [address] [place] [address]- Care Team Providers Care Survey Statistician Name Role Phone Luiz SALAS, Sonya Primary Care Physician [facility]counter [facility] Date[facility]s): 01/23/21 - 02/22/21 [facility] Adult [address] [place] [address]- Allergies, Adverse Reactions, Alerts Substance Reaction Severity [...] 5 Refills, Maintenance, 01/16/21 10:30:00 EDT, Tablet, [id number], Partial fill upon patient request if the prescription is for a schedule II opioid drug., 178, cm, 12/29/20 5:31:00 EDT, Height, 1... Start Date: 01/16/21 Stop Date: 07/15/21 Status: Ordered aspirin 81 mg oral tablet, chewable 81 mg, 1, tablet, By Mouth, Daily, # 30 tablet, Refills 5, Tot. Refills 5, Maintenance, 01/16/21 10:30:00 EDT, Route to Pharmacy Electronically, [facility]acy #[id number], Partial fill upon patient [...] capsule, 11 Refills, Maintenance,01/16/21 10:26:00 EDT, Capsule, [facility]acy #[id number], Partial fill upon patient request if the prescription is for a schedule II opioid drug., 178, cm, 0... Start Date: 01/16/21 Stop Date: 01/11/22 Status: Ordered clonazePAM 0.5 mg oral tablet 1 tablet = 0.5 mg, By Mouth, 3 times a day, # 90 tablet, 1 Refills, Maintenance, 01/16/21 10:52:00 EDT, Tablet, [facility]acy #[id number], Partial fill upon patient [...] lactulose 10 gm/15 ml oral syrup 15 mL = 10 Gm, By Mouth, Daily, PRN as needed for constipation, # 480 mL, 0 Refills, Maintenance, 02/03/21 17:23:00 EDT, Syrup, [id number], Partial fill upon patient request if the prescription is for a schedule II opioid drug., 15 mL By Mouth... Start Date: 02/03/21 Status: Ordered lisinopril 10 mg oral tablet 10 mg, 1, tablet, By Mouth, Daily, # 30 tablet, Refills 5, Tot. Refills 5, Maintenance, 01/16/21 10:29:00 EDT, Route to Pharmacy Electronically, [facility]acy #[id number], Partial fill upon patient [...] 0 Refills, Maintenance, 03/15/20 12:57:00 EST, Tablet, [facility], Partial fill upon patient request, 178, cm, 03/15/20 11:15:00 EST, Height, 105, kg, 03/12/20 6:12:00 EST, Dry W... Start Date: 03/15/20 Status: Ordered MiraLax oral powder for reconstitution = 17 Gm, By Mouth, Daily, for 14 days, dissolve in water before taking, # 238 Gm, 0 Refills, Acute 02/27/21 13:29:00 EST, 02/13/21 13:29:00 EDT, REC Powder, [facility]/pharmacy #[id number], Partial fill upon patient request if the prescription is for a schedule II... 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 Refills 0, Maintenance, 01/16/21 10:52:00 EDT, Route to Pharmacy Electronically, [facility]/pharmacy #[id number], Partial fillupon patient request [...] 12/28/20 12:50:00 EDT, Route to Pharmacy Electronically, [facility], Partial fill upon patient [...] 11/07/20 Active 1angioplasty 2000; 3 stents at [facility] 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 [...]
--- OUTSIDE RECORDS SUMMARY | 2023-04-11 15:17 | XMS_ITS | Continuity of Care Document ---
Author Name Unknown Organization [facility] Adult Address [address] [place] [address]- Care Team Providers Care Manager Psychiatry Name Role Phone Luiz SALAS, Sonya Primary Care Physician [facility]counter [facility] Date(s): 09/15/21 - 10/15/21 [facility] Adult [address] [place] [address]- Allergies, Adverse Reactions, Alerts Substance Reaction Severity [...] tablet = 81 mg, By Mouth, Daily, 0 Refills, Maintenance, 09/22/21 20:01:00 EDT Start Date: 09/22/21 Status: Ordered atorvastatin 40 mg oral tablet 1 tablet = 40 mg, By Mouth, Daily at bedtime, # 30 tablet, 5 Refills, Maintenance, 05/02/21 10:38:00 EST, Tablet, [id number], Partial fill upon patient request if the prescription is for a schedule II opioid drug., 178, cm, 04/27/21 4:54:00 ES... Start Date: 05/02/21 Stop Date: 10/29/21 Status: Ordered bisacodyl 10 mg rectal suppository 1 supp = 10 mg, Rectally, Daily, PRN Constipation, 0 Refills, Maintenance, 10/14/21 13:48:00 EDT, Suppository, Partial fill upon patient request if the prescription is for a schedule II opioid drug. Start Date: 10/14/21 Status: Ordered cholecalciferol 50,000 intl units oral [...] tablet, Refills 1, Route to Pharmacy Electronically, [id number], 178, cm, 05/11/21 8:52:00 EST, Height, 81, [...] opioid drug. Start Date: 10/14/21 Status: Ordered lisinopril 5 mg oral tablet 5 mg, 1, tablet, By Mouth, Daily, Maintenance, 10/11/21 15:45:00 EDT Start Date: 10/11/21 Status: Ordered magnesium oxide 400 mg oral [...] tablet, By Mouth, 5 times a day, PRN, # 15 tablet, Refills 0, Tot. Refills 0, Maintenance,Pain , Severe, 10/14/21 13:58:00 EDT, Print Requisition, Partial fill upon patient request if the prescription is for a schedule II opioid drug. Start Date: 10/14/21 Stop Date: 10/17/21 Status: Ordered pantoprazole 40 mg oral delayed [...] 05/02/21 10:38:00 EST, Route to Pharmacy Electronically, [facility]/pharmacy #[id number], Partial fill upon patient request if the [...] Active 1angioplasty 2000; 3 stents at [facility] 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 [...]
--- OUTSIDE RECORDS SUMMARY | 2023-04-11 15:17 | XMS_ITS | Continuity of Care Document ---
Author Name Unknown Organization [facility] Address [address] [place] [address]- Care Team Providers Care Pt Sitter Name Role Phone Luiz SALAS, Sonya Primary Care Physician [phone] [place] [facility] [place] 08/27/21 [facility] [address] [place] [phone]- Allergies, Adverse Reactions, Alerts Substance Reaction Severity [...] capsule, 11 Refills, Maintenance,05/02/21 10:36:00 EST, Capsule, [facility]/pharmacy #[id number], Partial fill upon patient request if the prescription is for a schedule II opioid drug., 178, cm, 0... Start Date: 05/02/21 Stop Date: 04/27/22 Status: Ordered clonazePAM 0.5 mg oral tablet 1 tablet = 0.5 mg, By Mouth, 3 times a day, # 90 tablet, 1 Refills, Maintenance, 07/25/21 17:16:00 EDT, Tablet, [facility]/pharmacy #[id number], Partial fill upon patient request if the prescription is for a schedule II opioid drug., 178, cm, 07/24/21 16:10:00 EDT... Start Date: 07/25/21 Stop Date: 09/23/21 Status: Ordered clopidogrel 75 mg oral tablet 1, tablet, By Mouth, Daily, # 90 tablet, Refills 1, Route to Pharmacy Electronically, [facility] [id number], 178, cm, 05/11/21 8:52:00 EST, Height, 81, kg, 05/06/21 2:22:00 EST, Dry Weight Start Date: 05/30/21 Status: Ordered glimepiride 4 mg oral tablet 1 tablet, By Mouth, 2 times a day, # 60 tablet, 5 Refills, Maintenance, 05/02/21 10:36:00 EST, [facility]/pharmacy #[id number], 178, cm, 04/27/21 4:54:00 EST, Height, 84.3, kg, 04/23/21 2:54:00 EST, Dry Weight Start Date: 05/02/21 Status: Ordered lisinopril 10 mg oral tablet 10 mg, 1, tablet, By Mouth, Daily, # 30 tablet, Refills 5, Tot. Refills 5, Maintenance, 08/25/21 14:50:00 EDT, Route to Pharmacy Electronically, [facility], Partial fill upon patient request if the prescription is for a schedule II opioid... Start Date: 08/25/21 Stop Date: 02/21/22 Status: Ordered magnesium oxide 400 mg oral tablet 1 tablet = 400 mg, By Mouth, Daily, for 30 days, # 30 tablet, 5 Refills, Acute 10/29/21 10:39:00 EDT, 05/02/21 10:39:00 EST, Tablet, [facility]/pharmacy #[id number], Partial fill upon patient request if the prescription is for a schedule II opioid drug., 178, cm,... 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 Refills 0, Maintenance, 08/25/21 14:49:00 EDT, Route to Pharmacy Electronically, [facility], Partial fill upon patient request if the prescription is for... Start Date: 08/25/21 Stop Date: 09/22/21 Status: Ordered pantoprazole 40 mg oral delayed [...] 05/02/21 10:38:00 EST, Route to Pharmacy Electronically, [facility]/pharmacy #[id number], Partial fill upon patient request if the prescription is for a sc... Start Date: 05/02/21 Stop Date: 10/29/21 Status: Ordered Vitamin B1 100 mg oral tablet 100 mg, 1, tablet, By Mouth, Daily, Maintenance, 07/23/21 14:57:00 EDT, Partial fill upon patient request if the prescription is for a schedule II opioid drug. Start Date: 07/23/21 Status: Ordered Vitamin C 500 mg oral [...] Active 1angioplasty 2000; 3 stents at [facility] 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 [...]
--- OUTSIDE RECORDS SUMMARY | 2023-04-11 15:17 | XMS_ITS | Continuity of Care Document ---
Author Name Unknown Organization [facility] Address [address] [place] [address]- Care Team Providers Care Residential Real Estate Agent Name Role Phone Luiz SALAS, Sonya Primary Care Physician [phone] Encounter [facility] Date(s): 10/03/21 - 11/11/21 [facility] [address] [place] [phone]- Attending Physician: Florecita Landrum NP Allergies, Adverse Reactions, Alerts Substance Reaction [...] at bedtime, # 28 tablet, 0 Refills, [facility], 160, cm, 10/22/21 7:52:00 EDT, Height, 81.7, [...] tablet, Refills 1, Route to Pharmacy Electronically, [id number], 178, cm, 05/11/21 8:52:00 EST, Height, 81, [...] 10/22/21 16:00:00 EDT, Route to Pharmacy Electronically, [facility], Partial fill upon patient request if the prescription... Start Date: 10/22/21 Stop Date: 10/25/21 Status: Ordered Tums 500 mg oral tablet, chewable 500 mg, 1, tablet, Chew, 3 times a day, PRN, # 90 tablet, Refills 5, Tot. Refills 5, Maintenance, Dyspepsia, 05/02/21 10:38:00 EST, Route to Pharmacy Electronically, [facility]/pharmacy #[id number], Partial fill upon patient request if the [...] 11/07/20 Active 1angioplasty 2000; 3 stents at [facility] 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 [...]
--- OUTSIDE RECORDS SUMMARY | 2023-04-11 15:17 | XMS_ITS | Continuity of Care Document ---
Author Name Unknown Organization [facility] Address [address], [address], [address] [place] [phone]- Care Team Providers Care Building Custodian Name Role Phone Sonya Dee NP Primary Care Physician [place] [facility] [place] [id number] Date(s): 06/07/20 - 07/07/20 [facility] [address], [address], [address] [place] [id number] Attending Physician: Jacobo Hill Admitting Physician: Jacobo Hill Referring Physician: AdmtrJacobo Allergies, Adverse Reactions, Alerts Substance Reaction Severity Status penicillin Active gabapentin Active Immunizations Not Given Vaccine Date Status Refusal Reason influenza virus vaccine, inactivated 05/26/20 Not Given Patient Refuses Medications aspirin 81 mg oral tablet, chewable 81 mg, 1, tablet, By Mouth, Daily, # 30 tablet, Refills 0, Maintenance, 05/25/20 6:48:00 EST, Partial fill upon patient request if the prescription is for a schedule II opioid drug. Start Date: 05/25/20 Status: Ordered clonazePAM 0.5 mg oral tablet TK 1 T PO TID PRN ANXIETY Start Date: 03/12/20 Status: Ordered escitalopram 10 mg oral tablet TK 1 T PO QD Start Date: 03/12/20 Status: Ordered Freestyle Lite Test Strips See Instructions, # 200 each, Refills 4, Tot. Refills 4, Maintenance, DX: E11.9 test blood sugar 4 times daily, 06/14/20 9:41:00 EST, Supply, 177.8, cm, 06/14/20 9:36:00 EST, Height, 104.5, kg, 05/25/20 17:45:00 EST, Dry Weight Start Date: 06/14/20 Status: Ordered glimepiride 2 mg oral tablet 1 tablet = 2 mg, By Mouth, 2 times a day, # 60 tablet, 5 Refills, Maintenance, 06/14/20 10:21:00 EST, Tablet, [facility][id number], Partial fill upon patient request if the prescription is fora schedule II opioid drug., 177.8, cm, 06/14/20 9:3... Start Date: 06/14/20 Stop Date: 12/11/20 Status: Ordered lisinopril 20 mg oral tablet 20 mg, 1, tablet, By Mouth, Daily, # 90 tablet, Refills 0, Tot. Refills 0, Maintenance, 05/12/20 9:54:00 EST, Route to Pharmacy [facility]ically, [id number], Partial fill upon patient request if the prescription is for a schedule II opi... Start Date: 05/12/20 Stop Date: 08/10/20 Status: Ordered metFORMIN 1000 mg oral tablet 1 tablet = 1,000 mg, By Mouth, 2 times a day, # 60 tablet, 0 Refills, Maintenance, 03/15/20 12:57:00 EST, Tablet, [facility], Partial fill upon patient request, 178, cm, 03/15/20 11:15:00 EST, Height, 105, kg, 03/12/20 6:12:00 EST, Dry W... Start Date: 03/15/20 Status: Ordered ofloxacin 0.3% otic solution See Instructions, 5 drops Right ear once daily x 7 days, # 10 mL, Refills 0, Tot. Refills 0, Maintenance, 03/15/20 14:25:00 EST, Instructions Replace Required Details, Route to Pharmacy Electronically, [facility], Partial fill upon patie... Start Date: 03/15/20 Status: Ordered oxyCODONE 5 mg oral tablet See Instructions, 28 days one tablet 5 x day, # 140 tablet, Refills 0, Tot. Refills 0, Maintenance,06/15/20 14:22:00 EST, Instructions Replace Required Details, Route to Pharmacy Electronically, [facility] #[id number], Partial fill upon patient... Start Date: 06/15/20 Status: Ordered Probiotic Formula (Bacillus Coagulans) oral capsule 1 capsule, By Mouth, Daily, # 10 capsule, 0 Refills, Maintenance, 04/14/20 11:39:00 EST, Capsule, [facility] #[id number], Partial fill upon patient request if the prescription is for a schedule II opioid drug., 1 capsule By Mouth Daily, 178, cm,... Start Date: 04/14/20 Status: Ordered simvastatin 40 mg oral tablet 40 mg, 1, tablet, By Mouth, Daily at bedtime, # 30 tablet, Refills 0, Tot. Refills 0, Maintenance, 03/15/20 12:20:00 EST, Route to Pharmacy Electronically, [facility], Partial fill uponpatient request, 178, cm, 03/15/20 11:15:00 EST, He... Start Date: 03/15/20 Status: Ordered Problem List Condition Effective Dates Status Health Status Inform ant Benign hypertension(Confirmed) Active CAD (coronary artery disease)(Confirmed) 1 Active Chronic lower back pain(Confirmed) Active Diabetes mellitus(Confirmed) Active Encephalopathy(Confirmed) Active Dyslipidemia(Confirmed) Active 1angioplasty 2000; 3 stents at [facility] Social History Social History Type Response Smoking Status Smoker, current stat us unknown; Type: Cigarettes; Other: 1/2-1 pk; entered on: 05/10/20 Sex
--- OUTSIDE RECORDS SUMMARY | 2023-04-11 15:17 | XMS_ITS | Continuity of Care Document ---
Author Name Unknown Organization [facility] Address [address] [place] [address]- Care Team Providers Care Microsoft Bi Architect Name Role Phone Luiz SALAS, Sonya Primary Care Physician [phone] Encounter [facility] Date(s): 11/10/21 - 12/10/21 [facility] [address] [place] [phone]- Allergies, Adverse Reactions, Alerts Substance Reaction Severity Status penicillin 1 Active gabapentin Swelling Moderate Active 1difficulty breathing/swollen lips Immunizations Given and [...] = 40 mg, By Mouth, Daily, # 90 tablet, 0 Refills, Maintenance, 11/28/21 19:32:00 EDT, Tablet, Partial fill upon patient request if the prescription is for a schedule II opioid drug. Start Date: 11/28/21 Status: Ordered capsaicin 0.1% topical cream 1 application, Topically, 3 times a day, to feet, 0 Refills, Maintenance, 11/20/21 13:14:00 EDT, Partial fill upon patient request if the prescription is for a schedule II opioid drug. Start Date: 11/20/21 Status: Ordered clonazePAM 0.5 mg oral tablet [...] Date: 12/06/21 Stop Date: 06/04/22 Status: Ordered depends xl depends xl, See [...] opioid drug. Start Date: 10/14/21 Status: Ordered duloxetine 20 mg oral enteric coated capsule 1 capsule = 20 mg, By Mouth, Daily, 0 Refills, Maintenance, 11/20/21 13:14:00 EDT, Partial fill upon patient request if the prescription is for a schedule II opioid drug. Start Date: 11/20/21 Status: Ordered lisinopril 5 mg oral tablet 5 mg, 1, tablet, By Mouth, Daily, # 30 tablet, Refills 5, Tot. Refills 5, Maintenance, 12/06/21 8:39:00 EDT, Route to Pharmacy Electronically, [facility], Partial fill upon patient request if the prescription is for a schedule II opioid drMarla.. Start Date: 12/06/21 Stop Date: 06/04/22 Status: Ordered magnesium oxide 400 mg oral tablet 1 tablet = 400 mg, By Mouth, Daily, # 10 tablet, 0 Refills, Maintenance, 11/28/21 19:32:00 EDT, Tablet, Partial fill upon patient request if the prescription is for a schedule II opioid drug. Start Date: 11/28/21 Stop Date: 12/08/21 Status: Ordered metFORMIN 1000 mg oral tablet 1 tablet = 1,000 mg, By Mouth, 2 times a day, # 180 tablet, 0 Refills, Maintenance, 11/28/21 19:32:00 EDT, Tablet, Partial fill upon patient request if the prescription is for a schedule II opioid drug. Start Date: 11/28/21 Status: Ordered Narcan 4 mg/0.1 mL nasal [...] Date: 09/01/21 Stop Date: 02/28/22 Status: Ordered QUEtiapine 25 mg oral tablet TAKE 1/2 TABLET BY MOUTH THREE TIMES A DAY NEEDED FOR AGITATION Start Date: 11/28/21 Status: Ordered raised toilet seat raised toilet [...] 05/02/21 10:38:00 EST, Route to Pharmacy Electronically, [facility]/pharmacy #[id number], Partial fill upon patient request if the [...] opioid drug. Start Date: 11/28/21 Status: Ordered Vitamin D3 50,000 intl units oral capsule 1 capsule = 1,250 mcg, By Mouth, Every 30 days, # 12 capsule, 0 Refills, Maintenance, 11/28/21 19:32:00 EDT, Capsule, Partial fill upon patient request if the prescription is for a schedule II opioiddrug. Start Date: 11/28/21 Status: Ordered Problem List Condition Effective Dates Status Health Status Inform ant Benign hypertension(Confirmed) Active CAD (coronary artery disease)(Confirmed) 1 Active Chronic lower back pain(Confirmed) Active Diabetes mellitus(Confirmed) Active Encephalopathy(Confirmed) Active Acute ischemic stroke(Confirmed) 2 11/07/20 Active 1angioplasty 2000; 3 stents at [facility] 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 [...]
--- OUTSIDE RECORDS SUMMARY | 2023-04-11 15:17 | XMS_ITS | Continuity of Care Document ---
Author Name Unknown Organization [facility] Address [address] [place] [phone]- Care Team Providers Care Public Health Educator Name Role Phone Luiz SALAS, Sonya Primary Care Physician Encounter [facility] [place] Date(s): 07/06/21 - 07/10/[address] [address]- Encounter Diagnosis Fall(Final) - 07/06/21 Discharge Disposition: A-D/C Home Attending Physician: Germán Adorno MD Admitting Physician: Love Starr MD Referring Physician: Not on Staff, Referring [...] inactivated 05/26/20 Not Given Patient Refuses Medications Acetaminophen Tablet 650 mg, Tablet, By Mouth, Every 4 hours, PRN for Pain , Mild, Temperature Greater than 100.5, Routine, 07/06/21 12:08:00 EDT Start Date: 07/06/21 Stop Date: 08/05/21 Status: Ordered amLODIPine 5 mg oral tablet 5 mg, Tablet, By Mouth, 07/10/21 9:00:00 EDT Start Date: 07/10/21 Stop Date: 07/10/21 Status: Completed amLODIPine 5 mg oral tablet 1 tablet = 5 mg, By Mouth, Daily, for 30 days, # 30 tablet, 5 Refills, Hard Stop 07/15/21 10:30:00 EDT, 01/16/21 10:30:00 EDT, Tablet, [facility]/pharmacy #[id number], Partial fill upon patient request if the prescription is for a schedule II opioid drug., 178, cm... Start Date: 01/16/21 Stop Date: 07/15/21 Status: Ordered atorvastatin 40 mg oral tablet 1 tablet = 40 mg, By Mouth, Daily at bedtime, # 30 tablet, 5 Refills, Maintenance, 05/02/21 10:38:00 EST, Tablet, [facility]/pharmacy #[id number], Partial fill upon patient request if the prescription is for a schedule II opioid drug., Lisa cm, 04/27/21 4:54:00 ES... Start Date: 05/02/21 Stop Date: 10/29/21 Status: Ordered cholecalciferol 50,000 intl units oral capsule 1 capsule = 50,000 International_Units, By Mouth, Every week, # 5 capsule, 11 Refills, Maintenance,05/02/21 10:36:00 EST, Capsule, [facility]/pharmacy #[id number], Partial fill upon patient request if the prescription is for a schedule II opioid drug., 178, cm, 0... Start Date: 05/02/21 Stop Date: 04/27/22 Status: Ordered clonazePAM 0.5 mg oral tablet 1 tablet = 0.5 mg, By Mouth, 3 times a day, # 90 tablet, 1 Refills, Maintenance, 05/02/21 12:49:00 EST, Tablet, [facility]/pharmacy #[id number], Partial fill upon patient request if the prescription is for a schedule II opioid drug., 178, cm, 04/27/21 4:54:00 EST,... Start Date: 05/02/21 Stop Date: 07/01/21 Status: Ordered clopidogrel 75 mg oral tablet 1, tablet, By Mouth, Daily, # 90 tablet, Refills 1, Route to Pharmacy Electronically, [id number], 178, cm, 05/11/21 8:52:00 EST, Height, 81, [...] FOR CONSTIPATION, # 473 mL, 0 Refills, [id number], 30, TAKE 15 ML BY MOUTH DAILY NEEDED FOR CONSTIPATION, 178, cm, 03/13/21 13:09:00 EST, Height, 100, kg, 12/26/20 16:53:00 EDT, Dry Weight Start Date: 04/20/21 Status: Ordered lisinopril 10 mg oral tablet 10 mg, 1, tablet, By Mouth, Daily, for 30 days, # 30 tablet, Refills 5, Tot. Refills 5, Hard Stop 07/15/21 10:29:00 EDT, 01/16/21 10:29:00 EDT, Route to Pharmacy Electronically, [id number], Partial fill upon patient request if the prescription... Start Date: 01/16/21 Stop Date: 07/15/21 Status: Ordered magnesium oxide 400 mg oral tablet 1 tablet = 400 mg, By Mouth, Daily, for 30 days, # 30 tablet, 5 Refills, Acute 10/29/21 10:39:00 EDT, 05/02/21 10:39:00 EST, Tablet, [id number], Partial fill upon patient request if the prescription is for a schedule II opioid drug., 178, cm,... Start Date: 05/02/21 Stop Date: 10/29/21 Status: Ordered metFORMIN 1000 mg oral tablet 1 tablet = 1,000 mg, By Mouth, 2 times a day, # 60 tablet, 5 Refills, Maintenance, 05/02/21 10:36:00 EST, Tablet, [id number], Partial fill upon patient request, 178, cm, 04/27/21 4:54:00 EST,Height, 84.3, kg, 04/23/21 2:54:00 EST, Dry Weight Start Date: 05/02/21 Status: Ordered oxyCODONE 5 mg oral tablet 5 mg, 1, tablet, By Mouth, 5 times a day, FLAVORING OIL FILTERER checked., # 140 tablet, Refills 0, Tot. Refills 0, Maintenance, 06/05/21 16:38:00 EST, Route to Pharmacy Electronically, [facility]/pharmacy #[id number], Partial fillupon patient request if the prescription is for a s... 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 S/P Elective Coiling of Unruptured Aneurysm with Subsequent Left-Sided Weakness: Acute nonhemorrhagic infarct in the RIGHT posterior frontal lobe: Results Orders for Microbiology Reports Name Date Blood Culture 07/06/21 Blood Culture #2 07/06/21 Microbiology Reports TEST:Blood Culture STATUS:Unauthenticated BODY SITE: SOURCE:Blood COLLECTED DATE/TIME:07/06/21 11:30 AM Blood Culture SPECIMEN DESCRIPTION : BLOOD LEFT HAND SPECIAL REQUESTS : NONE CULTURE : NO GROWTH 4 DAYS REPORT STATUS : PRELIMINARY REPORT TEST:Blood Culture, Second Order STATUS:Unauthenticated BODY SITE: SOURCE:Blood COLLECTED DATE/TIME:07/06/21 11:12 AM Blood Culture, Second Order SPECIMEN DESCRIPTION : BLOOD LAC SPECIAL REQUESTS : NONE CULTURE : NO GROWTH 4 DAYS REPORT STATUS : PRELIMINARY REPORT Radiology Reports * Exam Date Time Procedure Performing Provider Status 07/06/21 8:43 AM Chest 2 Views Frontal and Lat Phuong Bernstein; Auth (Verified) Notes: (Chest 2 Views Frontal and Lat) Reason For Exam: Traumatic Chest Pain;Other: RESULT: Chest 2 Views Frontal and Lat Chest 2 Views Frontal and Lat Hx of Present Illness: Patient comes in following a fall while walking to the store today; Reason: Other:; Traumatic Chest Pain; Clinical Question(s): Other:; Pneumothorax, Fracture COMPARISON: [facility], most recent dated 05/08/2021 FINDINGS: LINES AND TUBES: None. LUNGS AND PLEURA: No focal pulmonary opacity. Normal pulmonary vascularity No pleural effusion. No pneumothorax. HEART, MEDIASTINUM AND MAHESH: Heart is normal in size. Normal upper mediastinal and hilar contour. BONES AND SOFT TISSUES: No acute abnormality. IMPRESSION: No radiographic evidence of acute cardiopulmonary disease. WSN: [id number] Ordering Physician: Yane Mondragon Dictated By: Charisse Wise MD Dictated Date/Time: 07/06/21 8:50 am Reviewed By: Charisse Wise MD Signed By: Charisse Wise MD Signed Date/Time: 07/06/21 8:50 am Transcribed By: ANDREAS Transcribed Date/Time: 07/06/21 8:49 am Vital Signs Most recent to oldest [Reference Range]: 1 2 3 Weight 79.5 kg (07/06/21 6:25 PM) 79.5 kg (07/06/21 6:00 PM) Oxygen Saturation [94-100 %] 99 % (07/10/21 1:18 PM) 99 % (07/10/21 6:13 AM) 97 % (07/09/21 8:44 PM) Pulse Rate [55-90 bpm] 78 bpm (07/10/21 1:18 PM) 72 bpm (07/10/21 6:13 AM) 85 bpm (07/09/21 8:44 PM) Blood Pressure [90-138/55-84 mm Hg] 122/60mm Hg (07/10/21 1:18 PM) 147/80mm Hg *H* (07/10/21 9:03 AM) 128/60mm Hg (07/10/21 6:13 AM) Respiratory Rate [16-30 br/min] 20 br/min (07/10/21 1:18 PM) 18 br/min (07/10/21 6:13 AM) 18 br/min (07/09/21 9:31 PM) Temperature [96.8-100.4 DegF] 98 DegF (07/10/21 1:18 PM) 98.3 DegF (07/10/21 6:13 AM) 97.5 DegF (07/09/21 8:44 PM) Mode of Delivery (Oxygen) Room air (07/10/21 1:18 PM) Room air (07/10/21 6:13 AM) Room air (07/09/21 8:44 PM) Blood pressure sites Arm, left (07/10/21 6:13 AM) Arm, left (07/09/21 8:44 PM) Arm, left (07/09/21 1:39 PM) Temperature Route Oral (07/10/21 1:18 PM) Oral (07/10/21 6:13 AM) Oral (07/09/21 8:44 PM) Dry Weight 79.5 kg (07/06/21 6:25 PM) Weight Obtained Via Bed scale (07/06/21 6:25 PM) Dry Weight Obtained Via Bed scale (07/06/21 6:25 PM) Social History Social History Type Response Smoking Status Smoker, current stat us unknown; Type: Cigarettes; Other: 12-1 pk; entered on: 05/10/20 Sex
--- OUTSIDE RECORDS SUMMARY | 2023-04-11 15:17 | XMS_ITS | Continuity of Care Document ---
Author Name Unknown Organization [facility] Adult Address [address] [place] [address]- Care Team Providers Care Oracle Distribution Consultant Name Role Phone Luiz SALAS, Sonya Primary Care Physician [facility] Date[facility]s): 07/05/21 - 08/04/21 [facility] [address] [place] [phone]- Allergies, Adverse Reactions, Alerts Substance Reaction Severity [...] Date: 05/02/21 Stop Date: 10/29/21 Status: Ordered cephalexin monohydrate 500 mg oral capsule 1 capsule = 500 mg, By Mouth, 2 times a day, for 7 days, # 14 capsule, 0 Refills, Acute 08/09/21 22:59:00 EDT, 08/02/21 22:59:00 EDT, Capsule, [facility]/pharmacy #[id number], Partial fill upon patient request ifthe prescription is for a schedule II opioid drug.,... Start Date: 08/02/21 Stop Date: 08/09/21 Status: Ordered cholecalciferol 50,000 intl units oral capsule 1 capsule = 50,000 International_Units, By Mouth, Every week, # 5 capsule, 11 Refills, Maintenance,05/02/21 10:36:00 EST, Capsule, [facility]/pharmacy #[id number], Partial fill upon patient request if the prescription is for a schedule II opioid drug., 178, cm, 0... Start Date: 05/02/21 Stop Date: 04/27/22 Status: Ordered clonazePAM 0.5 mg oral tablet 1 tablet = 0.5 mg, By Mouth, 3 times a day, # 90 tablet, 1 Refills, Maintenance, 07/25/21 17:16:00 EDT, Tablet, [facility]/pharmacy #[id number], Partial fill upon patient request if the prescription is for a schedule II opioid drug., 178, cm, 07/24/21 16:10:00 EDT... Start Date: 07/25/21 Stop Date: 09/23/21 Status: Ordered clopidogrel 75 mg oral tablet 1, tablet, By Mouth, Daily, # 90 tablet, Refills 1, Route to Pharmacy Electronically, [id number], 178, cm, 05/11/21 8:52:00 EST, Height, 81, kg, 05/06/21 2:22:00 EST, Dry Weight Start Date: 05/30/21 Status: Ordered glimepiride 4 mg oral tablet 1 tablet, By Mouth, 2 times a day, # 60 tablet, 5 Refills, Maintenance, 05/02/21 10:36:00 EST, [facility]/pharmacy #[id number], 178, cm, 04/27/21 4:54:00 EST, Height, [...] 10/29/21 10:39:00 EDT, 05/02/21 10:39:00 EST, Tablet, [facility]/pharmacy #[id number], Partial fill upon patient request if the prescription is for a schedule II opioid drug., 178, cm,... Start Date: 05/02/21 Stop Date: 10/29/21 Status: Ordered metFORMIN 1000 mg oral tablet 1 tablet = 1,000 mg, By Mouth, 2 times a day, # 60 tablet, 5 Refills, Maintenance, 05/02/21 10:36:00 EST, Tablet, [facility]/pharmacy #[id number], Partial fill upon patient request, 178, cm, 04/27/21 4:54:00 EST,Height, 84.3, kg, 04/23/21 2:54:00 EST, Dry Weight Start Date: 05/02/21 Status: Ordered oxyCODONE 5 mg oral tablet 5 mg, 1, tablet, By Mouth, 5 times a day, CYBERATHLETE checked., # 140 tablet, Refills 0, Tot. Refills 0, Maintenance, 07/25/21 17:17:00 EDT, Route to Pharmacy Electronically, [facility]/pharmacy #[id number], Partial fillupon patient request if [...] 05/02/21 10:38:00 EST, Route to Pharmacy Electronically, [facility]/pharmacy #[id number], Partial fill upon patient request [...] 11/07/20 Active 1angioplasty 2000; 3 stents at [facility] 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 [...]
--- OUTSIDE RECORDS SUMMARY | 2023-04-11 15:17 | XMS_ITS | Continuity of Care Document ---
Author Name Unknown Organization [facility] Adult Address [address] [place] [address]- Care Team Providers Care Cost Specialist Name Role Phone Luiz SALAS, Sonya Primary Care Physician [facility] Date[facility]s): 08/17/21 - 09/16/21 [facility] [address] [place] [phone]- Allergies, Adverse Reactions, Alerts Substance Reaction Severity [...] Refills, Maintenance, 05/02/21 10:38:00 EST, Tablet, [id number], Partial fill upon patient request if the [...] tablet, Refills 1, Route to Pharmacy Electronically, [id number], 178, cm, 05/11/21 8:52:00 EST, Height, 81, kg, 05/06/21 2:22:00 EST, Dry Weight Start Date: 05/30/21 Status: Ordered depends xl depends xl, See Instructions, # 120 each, Refills 11, Tot. Refills 11, Maintenance, DX: incontinence N39.46, 09/08/21 8:51:00 EDT, Supply Start Date: 09/08/21 Status: Ordered glimepiride 4 mg oral tablet 1 tablet, By Mouth, 2 times a day, # 60 tablet, 5 Refills, Maintenance, 09/07/21 10:45:00 EDT, [facility], 178, cm, 07/24/21 16:10:00 EDT, Height, 79.5, kg, 07/06/21 20:40:00 EDT, DryWeight Start Date: 09/07/21 Status: Ordered lisinopril 10 mg oral tablet [...] Dry W... Start Date: 09/07/21 Status: Ordered oxyCODONE 5 mg oral tablet 5 mg, 1, tablet, By Mouth, 5 times a day, OBSTETRICIAN checked. fill on 09/15/21 20 tabs go [...] 11/07/20 Active 1angioplasty 2000; 3 stents at [facility] 2R frontal stroke secondary to [...]
--- OUTSIDE RECORDS SUMMARY | 2023-04-11 15:17 | XMS_ITS | Continuity of Care Document ---
Author Name Unknown Organization [facility] Adult Address [address] [place] [address]- Care Team Providers Care Manager Corporate Name Role Phone Luiz SALAS, Sonya Primary Care Physician [facility] Date[facility]s): 02/09/21 - 03/11/21 [facility] [address] [place] [address]- Allergies, Adverse Reactions, Alerts Substance Reaction Severity [...] Refills, Maintenance, 01/16/21 10:30:00 EDT, Tablet, [id number], Partial fill upon patient request if the [...] capsule, 11 Refills, Maintenance,01/16/21 10:26:00 EDT, Capsule, [facility]/pharmacy #[id number], Partial fill upon patient request if the prescription is for a schedule II opioid drug., 178, cm, 0... Start Date: 01/16/21 Stop Date: 01/11/22 Status: Ordered clonazePAM 0.5 mg oral tablet 1 tablet = 0.5 mg, By Mouth, 3 times a day, # 90 tablet, 1 Refills, Maintenance, 01/16/21 10:52:00 EDT, Tablet, [facility]/pharmacy #[id number], Partial fill upon patient request if the prescription is for a schedule II opioid drug., 178, cm, 12/29/20 5:31:00 EDT,... Start Date: 01/16/21 Stop Date: 03/17/21 Status: Ordered glimepiride 4 mg oral tablet 1 tablet, By Mouth, 2 times a day, # 60 tablet, 2 Refills, Maintenance, 01/16/21 10:26:00 EDT, [facility]/pharmacy #[id number], 178, cm, 12/29/20 5:31:00 EDT, Height, 100, kg, 12/26/20 16:53:00 EDT, Dry Weight Start Date: 01/16/21 Status: Ordered lactulose 10 gm/15 ml oral syrup 15 mL, By Mouth, Daily, PRN NEEDED FOR CONSTIPATION, # 473 mL, 0 Refills, [id number], 30, TAKE 15 ML BY MOUTH DAILY NEEDED FOR CONSTIPATION, 178, cm, 02/03/21 12:52:00 EDT, Height, 100, kg, 12/26/20 16:53:00 EDT, Dry Weight Start Date: 03/01/21 Status: Ordered lisinopril 10 mg oral tablet 10 mg, 1, tablet, By Mouth, Daily, # 30 tablet, Refills 5, Tot. Refills 5, Maintenance, 01/16/21 10:29:00 EDT, Route to Pharmacy Electronically, [facility]/pharmacy #[id number], Partial fill upon patient request if [...] 0 Refills, Maintenance, 03/15/20 12:57:00 EST, Tablet, [facility], Partial fill upon patient request, 178, cm, 03/15/20 11:15:00 EST, Height, 105, kg, 03/12/20 6:12:00 EST, Dry W... Start Date: 03/15/20 Status: Ordered oxyCODONE 5 mg oral tablet 5 mg, 1, tablet, By Mouth, 5 times a day, LIFE COACH checked., # 140 tablet, Refills 0, Tot. Refills 0, Maintenance, 02/24/21 15:51:00 EDT, Route to Pharmacy Electronically, [facility]/pharmacy #[id number], Partial fillupon patient request if the [...] 12/28/20 12:50:00 EDT, Route to Pharmacy Electronically, [facility], Partial fill upon patient [...] 11/07/20 Active 1angioplasty 2000; 3 stents at [facility] 2R frontal stroke secondary to [...]
--- OUTSIDE RECORDS SUMMARY | 2023-04-11 15:17 | XMS_ITS | Continuity of Care Document ---
Author Name Unknown Organization [facility] Adult Address [address] [place] [address]- Care Team Providers Care Client Retention Specialist Name Role Phone Luiz SALAS, Sonya Primary Care Physician [facility] Date[facility]s): 12/10/22 - 01/09/23 [facility] [address] [place] [address]- Allergies, Adverse Reactions, Alerts Substance Reaction Severity [...] 02/04/13 Recorded 1Result Comment: [facility]: [id number] Medications acetaminophen 325 mg oral tablet 650 [...] Confirmed Active 1angioplasty 2000; 3 stents at [place] [...] Care Nurse Name: Gela Orosco RN Position: [facility] RN Member Role: Primary Care Nurse Name: Jessica Castrejon RN Position: [facility] RN Member Role: Primary Care Nurse Name: Hien Hidalgo RN Position: [facility] RN Member Role: Primary Care Nurse Name: Phuong Balderas RN Position: [facility] SN RN Member Role: Primary Care Nurse Name: Evelyn Mcnulty RN Position: [facility] RN Member Role: Primary Care Nurse Name: Yanely Shanks RN Position: [facility] RN Member Role: Primary Care Nurse Name: Sonya Dee NP Position: [facility] PCO Associate Professional Member Role: PCP Address: Address: [address] [place] [address], [address] [place] [address] Name: Siddhartha Andino RN Position: [facility] RN Member Role: Primary Care Nurse Name: Pola Reid RN Position: [facility] RN Supv Member Role: Primary Care Nurse Name: Betzy Beckford RN Position: [facility] RN Member Role: Primary Care Nurse Name: Susie Galicia RN Position: [facility] RN Member Role: Primary Care Nurse Name: Ezra Acuna RN Position: [facility] RN Member Role: Primary Care Nurse Name: Zully Jara Position: [facility] RN Member Role: Primary Care Nurse Name: Yunior Bui RN Position: [facility] RN Member Role: Primary Care Nurse Name: Candace Liang RN Position: [facility] RN Member Role: Primary Care Nurse Name: Marci Padilla RN Position: [facility] RN Member Role: Primary Care Nurse Name: Dedra Lezama Position: [facility] RN Member Role: Primary Care Nurse Name: Pat Fernando RN Position: [facility] RN Member Role: Primary Care Nurse Name: Marquita Siddiqui RN Position: [facility] RN Member Role: Primary Care Nurse Name: Lazara Krueger RN Position: [facility] RN Member Role: Primary Care Nurse Name: Randa Sagastume RN Position: [facility] RN Member Role: Primary Care Nurse Name: Mitra Patel Position: [facility] RN Member Role: Primary Care Nurse Name: Kacie Campbell RN Position: [facility] RN Member Role: Primary Care Nurse Name: Charito Vazquez RN Position: [facility] ED RN W/OE and Tasks Member Role: Primary Care Nurse Name: Dylan Bond RN Position: [facility] RN Member Role: Primary Care Nurse Name: Lydia Doherty RN Position: [facility] RN Member Role: Primary Care Nurse Name: Elie Davis RN Position: [facility] RN Member Role: Primary Care Nurse Name: Delfina Still RN Position: [facility] RN Member Role: Primary Care Nurse Name: Mary Wagner RN Position: [facility] RN Member Role: Primary Care Nurse Name: Chandni Gibbons RN Position: [facility] SN RN Member Role: Primary Care Nurse Name: Reanna Chow RN Position: [facility] RN Member Role: Primary Care Nurse Name: Brayden Elizabeth RN Position: [facility] RN Member Role: Primary Care Nurse Name: Viry Zacarias RN Position: [facility] RN Member Role: Primary Care Nurse Name: Kerri Cunha RN Position: [facility] Hospital Secret Code Expert Member Role: Primary Care Nurse Name: Atiya Mcintyre RN Position: [facility] RN Member Role: Primary Care Nurse Care Team Related Persons Name: SANJAY CORRALN Address: [address] [place] [address]
--- OUTSIDE RECORDS SUMMARY | 2023-04-11 15:17 | XMS_ITS | Continuity of Care Document ---
Author Name Unknown Organization [facility] Adult Address [address] [place] [address]- Care Team Providers Care Yarn Twister Name Role Phone Luiz SALAS, Sonya Primary Care Physician [phone] Encounter [facility] Date(s): 05/11/21 - 06/10/21 [facility] Adult [address] [place] [phone]- Allergies, Adverse Reactions, Alerts Substance Reaction Severity [...] 07/15/21 10:30:00 EDT, 01/16/21 10:30:00 EDT, Tablet, [facility]/pharmacy #[id number], Partial fill upon patient request if the prescription is for a schedule II opioid drug., 178, cm... Start Date: 01/16/21 Stop Date: 07/15/21 Status: Ordered atorvastatin 40 mg oral tablet 1 tablet = 40 mg, By Mouth, Daily at bedtime, # 30 tablet, 5 Refills, Maintenance, 05/02/21 10:38:00 EST, Tablet, [facility]/pharmacy #[id number], Partial fill upon patient request if the prescription is for a schedule II opioid drug., 178, cm, 04/27/21 4:54:00 ES... Start Date: 05/02/21 Stop Date: 10/29/21 Status: Ordered cholecalciferol 50,000 intl units oral capsule 1 capsule = 50,000 International_Units, By Mouth, Every week, # 5 capsule, 11 Refills, Maintenance,05/02/21 10:36:00 EST, Capsule, [facility]/pharmacy #[id number], Partial fill upon patient request if the prescription is for a schedule II opioid drug., 178, cm, 0... Start Date: 05/02/21 Stop Date: 04/27/22 Status: Ordered clonazePAM 0.5 mg oral tablet 1 tablet = 0.5 mg, By Mouth, 3 times a day, # 90 tablet, 1 Refills, Maintenance, 05/02/21 12:49:00 EST, Tablet, [facility]/pharmacy #[id number], Partial fill upon patient request if the prescription is for a schedule II opioid drug., 178, cm, 04/27/21 4:54:00 EST,... Start Date: 05/02/21 Stop Date: 07/01/21 Status: Ordered clopidogrel 75 mg oral tablet 1, tablet, By Mouth, Daily, # 90 tablet, Refills 1, Route to [facility]acy Electronically, [id number], 178, cm, 05/11/21 8:52:00 EST, Height, 81, [...] # 473 mL, 0 Refills, [facility], 30, TAKE 15 ML BY MOUTH DAILY NEEDED FOR CONSTIPATION, 178, cm, 03/13/21 13:09:00 EST, Height, 100, kg, 12/26/20 16:53:00 EDT, Dry Weight Start Date: 04/20/21 Status: Ordered lisinopril 10 mg oral tablet 10 mg, 1, tablet, By Mouth, Daily, for 30 days, # 30 tablet, Refills 5, Tot. Refills 5, Hard Stop 07/15/21 10:29:00 EDT, 01/16/21 10:29:00 EDT, Route to Pharmacy Electronically, [facility]/pharmacy #[id number], Partial fill upon patient request if the prescription... Start Date: 01/16/21 Stop Date: 07/15/21 Status: Ordered magnesium oxide 400 mg oral tablet 1 tablet = 400 mg, By Mouth, Daily, for 30 days, # 30 tablet, 5 Refills, Acute 10/29/21 10:39:00 EDT, 05/02/21 10:39:00 EST, Tablet, [facility]/pharmacy #[id number], Partial fill upon patient request if the prescription is for a schedule II opioid drug., 178, cm,... Start Date: 05/02/21 Stop Date: 10/29/21 Status: Ordered metFORMIN 1000 mg oral tablet 1 tablet = 1,000 mg, By Mouth, 2 times a day, # 60 tablet, 5 Refills, Maintenance, 05/02/21 10:36:00 EST, Tablet, [facility]/pharmacy #[id number], Partial fill upon patient request, 178, cm, 04/27/21 4:54:00 EST,Height, 84.3, kg, 04/23/21 2:54:00 EST, Dry Weight Start Date: 05/02/21 Status: Ordered oxyCODONE 5 mg oral tablet 5 mg, 1, tablet, By Mouth, 5 times a day, DAY CARE ASSISTANT checked., # 140 tablet, Refills 0, Tot. Refills 0, Maintenance, 06/05/21 16:38:00 EST, Route to Pharmacy Electronically, [facility]/pharmacy #[id number], Partial fillupon patient [...] 10:38:00 EST, Route to Pharmacy Electronically, [facility]/pharmacy #[id number], Partial fill upon patient request if the prescription is for a sc... Start Date: 05/02/21 Stop Date: 10/29/21 Status: Ordered Problem List Condition Effective Dates Status Health Status Inform ant Benign hypertension(Confirmed) Active CAD (coronary artery disease)(Confirmed) 1 Active Chronic lower back pain(Confirmed) Active Diabetes mellitus(Confirmed) Active Encephalopathy(Confirmed) Active Dyslipidemia(Confirmed) Active Acute ischemic stroke(Confirmed) 2 11/07/20 Active 1angioplasty 2000; 3 stents at [facility] 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 [...]
--- OUTSIDE RECORDS SUMMARY | 2023-04-11 15:17 | XMS_ITS | Continuity of Care Document ---
Author Name Unknown Organization [facility] Address [address] [place] [address]- Care Team Providers Care Knitted Garment Finisher Name Role Phone Luiz SALAS, Sonya Primary Care Physician [place] [facility] [place]s): 10/10/21 - 10/14/[address] [address] Discharge Disposition: Disch/Trans to IP Rehab or unit w/in Hos Attending Physician: David SAVAGE, Dipesh Canales Admitting Physician: Davion SAVAGE, Chris Referring Physician: Not on Staff, Referring MD [...] Pharmacy Electronically, [id number], 178, cm, 05/11/21 8:52:00 EST, Height, 81, [...] drug. 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 S/P Elective Coiling of Unruptured Aneurysm with Subsequent Left-Sided Weakness: Acute nonhemorrhagic infarct in the RIGHT posterior frontal lobe: Results Orders for Microbiology Reports Name Date Urine Culture (URINE CULTURE) 10/10/21 Blood Culture 10/10/21 Blood Culture #2 10/10/21 Microbiology Reports TEST:Urine Culture STATUS:Auth (Verified) BODY SITE: SOURCE:URINE COLLECTED DATE/TIME:10/10/21 9:27 PM Urine Culture SPECIMEN DESCRIPTION : URINE SPECIAL REQUESTS : NONE CULTURE : NO GROWTH REPORT STATUS : FINAL 10/12/2021 TEST:Blood Culture, Second Order STATUS:Unauthenticated BODY SITE: SOURCE:Blood COLLECTED DATE/TIME:10/10/21 4:59 PM Blood Culture, Second Order SPECIMEN DESCRIPTION : BLOOD RAC SPECIAL REQUESTS : NONE CULTURE : NO GROWTH 4 DAYS REPORT STATUS : PRELIMINARY REPORT TEST:Blood Culture STATUS:Unauthenticated BODY SITE: SOURCE:Blood COLLECTED DATE/TIME:10/10/21 4:57 PM Blood Culture SPECIMEN DESCRIPTION : BLOOD L HAND SPECIAL REQUESTS : NONE CULTURE : NO GROWTH 4 DAYS REPORT STATUS : PRELIMINARY REPORT Radiology Reports * Exam Date Time Procedure Performing Provider Status 10/10/21 7:40 PM Chest 2 Views Frontal and Lat Adrianne Burroughs; Auth (Verified) Notes: (Chest 2 Views Frontal and Lat) Reason For Exam: Shortness of Breath, Fever;Other: RESULT: Chest 2 Views Frontal and Lat Chest 2 Views Frontal and Lat Hx of Present Illness: from home, was d c 3 days ago with uti, complaints today for weakness, constipation, chills, toes tingling,[employer] ox3; Reason: Other:; Shortness of Breath, Fever; Clinical Question(s): Pneumonia COMPARISON: 07/23/2021. FINDINGS: LINES AND TUBES: None. LUNGS AND PLEURA: Clear lungs. Normal pulmonary vascularity. No pleural effusion. No pneumothorax. HEART, MEDIASTINUM AND MAHESH: Heart is normal in size. Normal upper mediastinal and hilar contour. BONES AND SOFT TISSUES: No acute abnormality. IMPRESSION: No acute abnormality. WSN: [id number] Ordering Physician: Ralf Sheppard Dictated By: Kimberly Maloney MD Dictated Date/Time: 10/10/21 7:46 pm Reviewed By: Kimberly Maloney MD Signed By: Kimberly Maloney MD Signed Date/Time: 10/10/21 7:46 pm Transcribed By: ANDREAS Transcribed Date/Time: 10/10/21 7:45 pm Vital Signs Most recent to oldest [Reference Range]: 1 2 3 Height 177.8 cm (10/14/21 4:41 AM) 177.8 cm (10/13/21 8:19 PM) 177.8 cm (10/13/21 9:21 AM) Weight 77.1 kg (10/11/21 1:03 PM) Oxygen Saturation [94-100 %] 99 % (10/14/21 2:00 PM) 100 % (10/14/21 4:41 AM) 99 % (10/13/21 8:19 PM) Pulse Rate [55-90 bpm] 75 bpm (10/14/21 2:00 PM) 65 bpm (10/14/21 4:41 AM) 72 bpm (10/13/21 8:19 PM) Body Mass Index [18.5-24.99] 24.39 (10/11/21 1:03 PM) Blood Pressure [90-138/55-84 mm Hg] 94/59mm Hg (10/14/21 2:00 PM) 126/65mm Hg (10/14/21 9:41 AM) 138/62mm Hg (10/14/21 4:41 AM) Respiratory Rate [16-30 br/min] 16 br/min (10/14/21 2:00 PM) 16 br/min (10/14/21 10:41 AM) 16 br/min (10/14/21 9:41 AM) Temperature [96.8-100.4 DegF] 97.4 DegF (10/14/21 2:00 PM) 97.2 DegF (10/14/21 4:41 AM) 97.4 DegF (10/13/21 8:19 PM) Mode of Delivery (Oxygen) Room air (10/14/21 2:00 PM) Room air (10/14/21 4:41 AM) Room air (10/13/21 8:19 PM) Blood pressure sites Arm, left (10/14/21 2:00 PM) Arm, right (10/14/21 4:41 AM) Arm, right (10/13/21 8:19 PM) Temperature Route Oral (10/14/21 2:00 PM) Oral (10/14/21 4:41 AM) Oral (10/13/21 8:19 PM) Dry Weight 74.4 kg (10/11/21 1:03 PM) Weight Obtained Via Patient/family state d (10/11/21 1:03 PM) Dry Weight Obtained Via Bed scale (10/11/21 1:03 PM) Social History Social History Type Response Smoking Status Smoker, current stat us unknown; Type: Cigarettes; Other: 1/2-1 pk; entered on: 05/10/20 Sex
--- OUTSIDE RECORDS SUMMARY | 2023-04-11 15:18 | XMS_ITS | Continuity of Care Document ---
Author Name Unknown Organization [facility] ter Address [address] [place] [address]- Care Team Providers Care Neuropathologist Name Role Phone Luiz SAALS, Sonya Primary Care Physician Encounter [facility] [place] Date(s): 07/23/21 - 07/23/[address] [address]- Encounter Diagnosis Rib contusion(Final) - 07/23/21 Rib pain(Final) - 07/23/21 Discharge Disposition: A-D/C Home Attending Physician: Mike Godinez DO Admitting Physician: Mike Godinez DO Referring Physician: Not on Staff, Referring MD [...] tablet = 5 mg, By Mouth, Daily, Maintenance, 07/23/21 14:53:00 EDT, Tablet, Partial fill upon patient request if the prescription is for a schedule II opioid drug. Start Date: 07/23/21 Status: Ordered atorvastatin 40 mg oral tablet 1 tablet = 40 mg, By Mouth, Daily at bedtime, # 30 tablet, 5 Refills, Maintenance, 05/02/21 10:38:00 EST, Tablet, [facility]/pharmacy #[id number], Partial fill upon patient request if the prescription is for a schedule II opioid drug., 178, cm, 04/27/21 4:54:00 ES... Start Date: 05/02/21 Stop Date: 10/29/21 Status: Ordered cholecalciferol 50,000 intl units oral capsule 1 capsule = 50,000 International_Units, By Mouth, Every week, # 5 capsule, 11 Refills, Maintenance,05/02/21 10:36:00 EST, Capsule, [facility]/pharmacy #[id number], Partial fill upon patient request if the prescription is for a schedule II opioid drug., 178, cm, 0... Start Date: 05/02/21 Stop Date: 04/27/22 Status: Ordered clonazePAM 0.5 mg oral tablet 1 tablet = 0.5 mg, By Mouth, 3 times a day, # 90 tablet, 1 Refills, Maintenance, 05/02/21 12:49:00 EST, Tablet, [facility]/pharmacy #[id number], Partial fill upon patient request if the prescription is for a schedule II opioid drug., 178, cm, 04/27/21 4:54:00 EST,... Start Date: 05/02/21 Stop Date: 07/01/21 Status: Ordered clopidogrel 75 mg oral tablet 1, tablet, By Mouth, Daily, # 90 tablet, Refills 1, Route to Pharmacy Electronically, [id number], 178, cm, 05/11/21 8:52:00 EST, Height, 81, kg, 05/06/21 2:22:00 EST, Dry Weight Start Date: 05/30/21 Status: Ordered glimepiride 4 mg oral tablet 1 tablet, By Mouth, 2 times a day, # 60 tablet, 5 Refills, Maintenance, 05/02/21 10:36:00 EST, [facility]/pharmacy #[id number], 178, cm, 04/27/21 4:54:00 EST, [...] 10/29/21 10:39:00 EDT, 05/02/21 10:39:00 EST, Tablet, [facility]/pharmacy #[id number], Partial fill upon patient request if the prescription is for a schedule II opioid drug., 178, cm,... Start Date: 05/02/21 Stop Date: 10/29/21 Status: Ordered metFORMIN 1000 mg oral tablet 1 tablet = 1,000 mg, By Mouth, 2 times a day, # 60 tablet, 5 Refills, Maintenance, 05/02/21 10:36:00 EST, Tablet, [facility]/pharmacy #[id number], Partial fill upon patient request, 178, cm, 04/27/21 4:54:00 EST,Height, 84.3, kg, 04/23/21 2:54:00 EST, Dry Weight Start Date: 05/02/21 Status: Ordered pantoprazole 40 mg oral delayed [...] 05/02/21 10:38:00 EST, Route to Pharmacy Electronically, [facility]/pharmacy #[id number], Partial fill upon patient request [...] 11/07/20 Active 1angioplasty 2000; 3 stents at [facility] 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 S/P Elective Coiling of Unruptured Aneurysm with Subsequent Left-Sided Weakness: Acute nonhemorrhagic infarct in the RIGHT posterior frontal lobe: Results Radiology Reports * Exam Date Time Procedure Performing Provider Status 07/23/21 2:24 PM Chest 2 Views Frontal and Lat Mariya Geiger (Verified) Notes: (Chest 2 Views Frontal and Lat) Reason For Exam: Traumatic Chest Pain;Other: RESULT: Chest 2 Views Frontal and Lat Chest 2 Views Frontal and Lat Hx of Present Illness: Pt. comes from home w rib pain and SOB when he takes a deep breath after post fall x1 week ago, old bruising left Ribs right mid abdomen. No crepitus no deformity slightly swollen.; Reason: Other:; Traumatic Chest Pain; Clinical Question(s): Other:; Pneumothorax, Fracture COMPARISON: 07/06/2021. FINDINGS: LINES AND TUBES: None. LUNGS AND PLEURA: Clear lungs. Normal pulmonary vascularity. No pleural effusion. No pneumothorax. HEART, MEDIASTINUM AND MAHESH: Heart is normal in size. Normal upper mediastinal and hilar contour. BONES AND SOFT TISSUES: No acute abnormality. IMPRESSION: No acute abnormality. WSN: [id number] Ordering Physician: Kirby Johnson Dictated By: Kimberly Maloney MD Dictated Date/Time: 07/23/21 2:59 pm Reviewed By: Kimberly Maloney MD Signed By: Kimberly Maloney MD Signed Date/Time: 07/23/21 2:59 pm Transcribed By: ANDREAS Transcribed Date/Time: 07/23/21 2:59 pm Vital Signs Most recent to oldest [Reference Range]: 1 2 3 Oxygen Saturation [94-100 %] 98 % (07/23/21 5:00 PM) 99 % (07/23/21 3:15 PM) 100 % (07/23/21 1:50 PM) Pulse Rate [55-90 bpm] 70 bpm (07/23/21 5:00 PM) 69 bpm (07/23/21 3:15 PM) 67 bpm (07/23/21 1:50 PM) Blood Pressure [90-138/55-84 mm Hg] 162/62mm Hg *H* (07/23/21 5:00 PM) 168/64mm Hg *H* (07/23/21 3:15 PM) 171/70mm Hg *H* (07/23/21 1:50 PM) Respiratory Rate [16-30 br/min] 17 br/min (07/23/21 5:00 PM) 17 br/min (07/23/21 3:15 PM) 18 br/min (07/23/21 1:50 PM) Temperature [96.8-100.4 DegF] 97.7 DegF (07/23/21 5:00 PM) 97.7 DegF (07/23/21 3:15 PM) 97.7 DegF (07/23/21 1:50 PM) Mode of Delivery (Oxygen) Room air (07/23/21 5:00 PM) Room air (07/23/21 3:15 PM) Room air (07/23/21 1:50 PM) Blood pressure sites Arm, left (07/23/21 5:00 PM) Arm, left (07/23/21 3:15 PM) Arm, left (07/23/21 1:50 PM) Temperature Route Oral (07/23/21 5:00 PM) Oral (07/23/21 3:15 PM) Oral (07/23/21 1:50 PM) Social History Social History Type Response Smoking Status Smoker, current stat us unknown; Type: Cigarettes; Other: 1/2-1 pk; entered on: 05/10/20 Sex
--- OUTSIDE RECORDS SUMMARY | 2023-04-11 15:18 | XMS_ITS | Continuity of Care Document ---
Author Name Unknown Organization [facility] Adult Address [address] [place] [address]- Care Team Providers Care Photography Instructor Name Role Phone Luiz SALAS, Sonya Primary Care Physician [phone] Encounter [facility] [place] Date(s): 12/21/20 - 01/27/21 [facility] Adult [address] [place] [address]- Attending Physician: Lucita SALAS, Florecita Nolasco Allergies, Adverse Reactions, Alerts Substance Reaction Severity [...] Refills, Maintenance, 01/16/21 10:30:00 EDT, Tablet, [facility]pharmacy #[id number], Partial fill upon patient request if the prescription is for a schedule II opioid drug., 178, cm, 12/29/20 5:31:00 EDT, Height, 1... Start Date: 01/16/21 Stop Date: 07/15/21 Status: Ordered aspirin 81 mg oral tablet, chewable 81 mg, 1, tablet, By Mouth, Daily, # 30 tablet, Refills 5, Tot. Refills 5, Maintenance, 01/16/21 10:30:00 EDT, Route to Pharmacy Electronically, [facility]/pharmacy #[id number], Partial fill upon patient request if [...] capsule, 11 Refills, Maintenance,01/16/21 10:26:00 EDT, Capsule, [facility]/pharmacy #[id number], Partial fill upon patient request if the prescription is for a schedule II opioid drug., 178, cm, 0... Start Date: 01/16/21 Stop Date: 01/11/22 Status: Ordered clonazePAM 0.5 mg oral tablet 1 tablet = 0.5 mg, By Mouth, 3 times a day, # 90 tablet, 1 Refills, Maintenance, 01/16/21 10:52:00 EDT, Tablet, [facility]/pharmacy #[id number], Partial fill upon patient request if the prescription is for a schedule II opioid drug., 178, cm, 12/29/20 5:31:00 EDT,... Start Date: 01/16/21 Stop Date: 03/17/21 Status: Ordered glimepiride 4 mg oral tablet 1 tablet, By Mouth, 2 times a day, # 60 tablet, 2 Refills, Maintenance, 01/16/21 10:26:00 EDT, [facility]/pharmacy #[id number], 178, cm, 12/29/20 5:31:00 EDT, Height, 100, kg, 12/26/20 16:53:00 EDT, Dry Weight Start Date: 01/16/21 Status: Ordered lisinopril 10 mg oral tablet 10 mg, 1, tablet, By Mouth, Daily, # 30 tablet, Refills 5, Tot. Refills 5, Maintenance, 01/16/21 10:29:00 EDT, Route to Pharmacy Electronically, [facility]/pharmacy #[id number], Partial fill upon patient request if [...] 0 Refills, Maintenance, 03/15/20 12:57:00 EST, Tablet, [facility], Partial fill upon patient request, 178, cm, 03/15/20 11:15:00 EST, Height, 105, kg, 03/12/20 6:12:00 EST, Dry W... Start Date: 03/15/20 Status: Ordered oxyCODONE 5 mg oral tablet 5 mg, 1, tablet, By Mouth, 5 times a day, MANAGER CHEMISTRY checked., # 140 tablet, Refills 0, Tot. Refills 0, Maintenance, 01/16/21 10:52:00 EDT, Route to Pharmacy Electronically, [facility]/pharmacy #[id number], Partial fillupon patient request if the [...] 12/28/20 12:50:00 EDT, Route to Pharmacy Electronically, [facility], Partial fill upon patient [...] Active 1angioplasty 2000; 3 stents at [facility] 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 [...]
--- OUTSIDE RECORDS SUMMARY | 2023-04-11 15:18 | XMS_ITS | Continuity of Care Document ---
Author Name Unknown Organization [facility] Adult Address [address] [place] [address]- Care Team Providers Care Informatics Manager Name Role Phone Luiz SALAS, Sonya Primary Care Physician [place] [facility] [place]25[place] [facility] Adult [address] [place] [id number]- Allergies, Adverse Reactions, Alerts Substance Reaction Severity [...] 07/15/21 10:30:00 EDT, 01/16/21 10:30:00 EDT, Tablet, [facility]/pharmacy #[id number], Partial fill upon patient request if the [...] capsule, 11 Refills, Maintenance,05/02/21 10:36:00 EST, Capsule, [facility]/pharmacy #[id number], Partial fill upon patient request if the prescription is for a schedule II opioid drug., 178, cm, 0... Start Date: 05/02/21 Stop Date: 04/27/22 Status: Ordered clonazePAM 0.5 mg oral tablet 1 tablet = 0.5 mg, By Mouth, 3 times a day, # 90 tablet, 1 Refills, Maintenance, 05/02/21 12:49:00 EST, Tablet, [facility]/pharmacy #[id number], Partial fill upon patient request if the prescription is for a schedule II opioid drug., 178, cm, 04/27/21 4:54:00 EST,... Start Date: 05/02/21 Stop Date: 07/01/21 Status: Ordered glimepiride 4 mg oral tablet 1 tablet, By Mouth, 2 times a day, # 60 tablet, 5 Refills, Maintenance, 05/02/21 10:36:00 EST, [facility]/pharmacy #[id number], 178, cm, 04/27/21 4:54:00 EST, Height, 84.3, kg, 04/23/21 2:54:00 EST, Dry Weight Start Date: 05/02/21 Status: Ordered lactulose 10 gm/15 ml oral syrup 15 mL, By Mouth, Daily, PRN NEEDED FOR CONSTIPATION, # 473 mL, 0 Refills, [facility] ST[id number], 30, TAKE 15 ML BY MOUTH DAILY NEEDED FOR CONSTIPATION, 178, cm, 03/13/21 13:09:00 EST, Height, 100, kg, 12/26/20 16:53:00 EDT, Dry Weight Start Date: 04/20/21 Status: Ordered lisinopril 10 mg oral tablet 10 mg, 1, tablet, By Mouth, Daily, for 30 days, # 30 tablet, Refills 5, Tot. Refills 5, Hard Stop 07/15/21 10:29:00 EDT, 01/16/21 10:29:00 EDT, Route to Pharmacy Electronically, [facility]/pharmacy #[id number], Partial fill upon patient request if the prescription... Start Date: 01/16/21 Stop Date: 07/15/21 Status: Ordered magnesium oxide 400 mg oral tablet 1 tablet = 400 mg, By Mouth, Daily, for 30 days, # 30 tablet, 5 Refills, Acute 10/29/21 10:39:00 EDT, 05/02/21 10:39:00 EST, Tablet, [facility]/pharmacy #[id number], Partial fill upon patient request if the prescription is for a schedule II opioid drug., 178, cm,... Start Date: 05/02/21 Stop Date: 10/29/21 Status: Ordered metFORMIN 1000 mg oral tablet 1 tablet = 1,000 mg, By Mouth, 2 times a day, # 60 tablet, 5 Refills, Maintenance, 05/02/21 10:36:00 EST, Tablet, [facility]/pharmacy #[id number], Partial fill upon patient request, 178, cm, 04/27/21 4:54:00 EST,Height, 84.3, kg, 04/23/21 2:54:00 EST, Dry Weight Start Date: 05/02/21 Status: Ordered oxyCODONE 5 mg oral tablet 5 mg, 1, tablet, By Mouth, 5 times a day, STORE ADMINISTRATOR checked., # 140 tablet, Refills 0, Tot. Refills 0, Maintenance, 05/02/21 9:47:00 EST, Route to Pharmacy Electronically, [facility]/pharmacy #[id number], Partial fill upon patient request [...] 05/02/21 10:36:00 EST, Route to Pharmacy Electronically, [facility]/pharmacy #[id number], Partial fill upon patient request [...] 05/02/21 10:38:00 EST, Route to Pharmacy Electronically, [facility]/pharmacy #[id number], Partial fill upon patient request [...] 11/07/20 Active 1angioplasty 2000; 3 stents at [facility] 2R frontal stroke secondary to [...]
--- OUTSIDE RECORDS SUMMARY | 2023-04-11 15:18 | XMS_ITS | Continuity of Care Document ---
Author Name Unknown Organization [facility] ter Address [address] [place] [address]- Care Team Providers Care Field Merchandiser Name Role Phone Luiz SALAS, Sonya Primary Care Physician [phone] Encounter [facility] [place] Date(s): 10/15/21 - 10/15/[address] [address]- Discharge Disposition: A-D/C Home Attending Physician: Emily Cee MD Admitting Physician: Emily Cee MD Referring Physician: Not on Staff, Referring [...] 5 Refills, Maintenance, 05/02/21 10:38:00 EST, Tablet, [facility]/pharmacy #[id number], Partial fill upon patient request if [...] Refills 1, Route to Pharmacy Electronically, [facility] [id number], 178, cm, 05/11/21 8:52:00 EST, Height, 81, [...] Refills, Maintenance, 09/26/21 10:30:00 EDT, REC Powder, [id number], Partial fill upon patientrequest if [...] 10:38:00 EST, Route to Pharmacy Electronically, [facility]/pharmacy #[id number], Partial fill upon patient request if the [...] recent to oldest [Reference Range]: 1 2 Oxygen Saturation [94-100 %] 99 % (10/15/21 8:28 AM) 99 % (10/15/21 12:14 AM) Pulse Rate [55-90 bpm] 90 bpm (10/15/21 8:28 AM) 69 bpm (10/15/21 12:14 AM) Blood Pressure [90-138/55-84 mm Hg] 100/ 44mm Hg (10/15/21 8:28 AM) 121/63mm Hg (10/15/21 12:14 AM) Respiratory Rate [16-30 br/min] 18 br/mi n (10/15/21 8:28 AM) 18 br/min (10/15/21 12:14 AM) Temperature [96.8-100.4 DegF] 97.7 DegF (10/15/21 8:28 AM) 98.1 DegF (10/15/21 12:14 AM) Mode of Delivery (Oxygen) Room air (10/15/21 8:28 AM) Room air (10/15/21 12:14 AM) Blood pressure sites Arm, left (10/15/21 8:28 AM) Arm, left (10/15/21 12:14 AM) Temperature Route Oral (10/15/21 8:28 AM) Oral (10/15/21 12:14 AM) Social History Social History Type Response Smoking Status Smoker, current stat us unknown; Type: Cigarettes; Other: 1/2-1 pk; entered on: 05/10/20 Sex
--- OUTSIDE RECORDS SUMMARY | 2023-04-11 15:18 | XMS_ITS | Continuity of Care Document ---
Author Name Unknown Organization [facility] Adult Address [address] [place] [address]- Care Team Providers Care Water Taxi Driver Name Role Phone Luiz SALAS, Sonya Primary Care Physician Encounter [facility] Date(s): 01/30/21 - 03/01/21 [facility] Adult [address] [place] [address]- Allergies, Adverse Reactions, Alerts Substance Reaction Severity [...] 5 Refills, Maintenance, 01/16/21 10:30:00 EDT, Tablet, [facility]/pharmacy #[id number], Partial fill upon patient request if the prescription is for a schedule II opioid drug., 178, cm, 12/29/20 5:31:00 EDT, Height, 1... Start Date: 01/16/21 Stop Date: 07/15/21 Status: Ordered aspirin 81 mg oral tablet, chewable 81 mg, 1, tablet, By Mouth, Daily, # 30 tablet, Refills 5, Tot. Refills 5, Maintenance, 01/16/21 10:30:00 EDT, Route to Pharmacy Electronically, [facility]/pharmacy #[id number], Partial fill upon patient [...] capsule, 11 Refills, Maintenance,01/16/21 10:26:00 EDT, Capsule, [facility]/pharmacy #[id number], Partial fill upon patient request if the prescription is for a schedule II opioid drug., 178, cm, 0... Start Date: 01/16/21 Stop Date: 01/11/22 Status: Ordered clonazePAM 0.5 mg oral tablet 1 tablet = 0.5 mg, By Mouth, 3 times a day, # 90 tablet, 1 Refills, Maintenance, 01/16/21 10:52:00 EDT, Tablet, [facility]/pharmacy #[id number], Partial fill upon patient request if the prescription is for a schedule II opioid drug., 178, cm, 12/29/20 5:31:00 EDT,... Start Date: 01/16/21 Stop Date: 03/17/21 Status: Ordered glimepiride 4 mg oral tablet 1 tablet, By Mouth, 2 times a day, # 60 tablet, 2 Refills, Maintenance, 01/16/21 10:26:00 EDT, [facility]/pharmacy #[id number], 178, cm, 12/29/20 5:31:00 EDT, Height, 100, kg, 12/26/20 16:53:00 EDT, Dry Weight Start Date: 01/16/21 Status: Ordered lactulose 10 gm/15 ml oral syrup 15 mL, By Mouth, Daily, PRN NEEDED FOR CONSTIPATION, # 473 mL, 0 Refills, [id number], 30, TAKE 15 ML BY MOUTH DAILY NEEDED FOR CONSTIPATION, 178, cm, 02/03/21 12:52:00 EDT, Height, 100, kg, 12/26/20 16:53:00 EDT, Dry Weight Start Date: 03/01/21 Status: Ordered lisinopril 10 mg oral tablet 10 mg, 1, tablet, By Mouth, Daily, # 30 tablet, Refills 5, Tot. Refills 5, Maintenance, 01/16/21 10:29:00 EDT, Route to Pharmacy Electronically, [facility]/pharmacy #[id number], Partial fill upon patient [...] 0 Refills, Maintenance, 03/15/20 12:57:00 EST, Tablet, [facility], Partial fill upon patient request, 178, cm, 03/15/20 11:15:00 EST, Height, 105, kg, 03/12/20 6:12:00 EST, Dry W... Start Date: 03/15/20 Status: Ordered oxyCODONE 5 mg oral tablet 5 mg, 1, tablet, By Mouth, 5 times a day, VERIFY REP checked., # 140 tablet, Refills 0, Tot. 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
--- OUTSIDE RECORDS SUMMARY | 2023-04-11 15:18 | XMS_ITS | Continuity of Care Document ---
Author Name Unknown Organization [facility] Adult Address [address] [place] [address]- Care Team Providers Care Head Stock Operator Name Role Phone Luiz CIVIL ENGINEERING DRAFTER, Sonya Primary Care Physician Encounter [facility] Date(s): 10/08/22 - 11/14/22 [facility] Adult [address] [place] [address]- Attending Physician: Elli Montenegro Allergies, Adverse Reactions, Alerts Substance Reaction Severity Status penicillin 1 Active gabapentin Swelling Moderate Active Other Food Allergy 2 N&V - Nausea and vomiting Active sulfa drugs Active 1difficulty breathing/swollen lips [...] 05/26/20 Not Given Patient Refuses 1Result Comment: [facility]: [id number] Medications albuterol-ipratropium 3 mg-0.5 mg/3 ml inhalation solution BAND Nebulizer, Every 4 hours, PRN Wheezing/Shortness of Breath, 0 Refills, Maintenance, 10/26/22 13:25:00 EDT, Inhalation Solution, Partial fill upon patient request if the prescription is for a schedule II opioid drug. Start Date: 10/26/22 Status: Ordered Aspirin Low Dose 81 mg oral tablet, chewable 1 tablet, By Mouth, Daily, # 90 tablet, 1 Refills, Maintenance, 07/31/22 13:23:00 EDT, [facility], 178, cm, 07/23/22 11:32:00 EDT, Height, 72.5, kg, 03/08/22 4:29:00 EST, Dry Weight Start Date: 07/31/22 Status: Ordered atorvastatin 40 mg oral tablet 1 tablet, By Mouth, Daily at bedtime, # 28 tablet, 5 Refills, Maintenance, 07/31/22 13:23:00 EDT, [facility], 178, cm, 07/23/22 11:32:00 EDT, Height, 72.5, [...] Daily, # 90 tablet, Refills 0, Maintenance, 10/30/22 13:50:00 EDT, Route to Pharmacy Electronically, [facility], 178, cm, 10/26/22 14:30:00 EDT, Height, 79.5, kg, 10/20/22 13:34:00 EDT, Dry Weight Start Date: 10/30/22 Status: Ordered depends xl depends xl, See Instructions, # 120 each, Refills 11, Tot. Refills 11, Maintenance, DX: incontinence N39.46, 09/27/22 14:39:00 EDT, Supply Start Date: 09/27/22 Status: Ordered Docusate/Senna Tablet 1 tablet, By Mouth, 2 times a day, 0 Refills, Maintenance, 10/26/22 13:25:00 EDT, Tablet, Partial fill upon patient request if the prescription is for a schedule II opioid drug. Start Date: 10/26/22 Status: Ordered Flomax 0.4 mg oral capsule 0.4 mg, By Mouth, Daily, Refills 0, Maintenance, 10/26/22 13:24:00 EDT, Partial fill upon patient request if the prescription is for a schedule II opioid drug. Start Date: 10/26/22 Status: Ordered glimepiride 4 mg oral tablet 1 tablet, By Mouth, 2 times a day, # 180 tablet, 0 Refills, Maintenance, 10/25/22 9:55:00 EDT, [facility], 178, cm, 10/25/22 7:25:00 EDT, Height, 79.5, kg, 10/20/22 13:34:00 EDT, Dry Weight Start Date: 10/25/22 Status: Ordered large pull ups large pull ups, See Instructions, # 120 each, Refills 11, Tot. Refills 11, Maintenance, DX: incontinence N39.46, 02/09/22 14:03:00 EDT, Supply Start Date: 02/09/22 Status: Ordered lisinopril 5 mg oral tablet 1, tablet, By Mouth, Daily, # 90 tablet, Refills 1, Maintenance, 07/31/22 13:25:00 EDT, Route to Pharmacy Electronically, [facility], 178, cm, 07/23/22 11:32:00 EDT, Height, 72.5, kg, 03/08/22 4:29:00 EST, Dry Weight Start Date: 07/31/22 Status: Ordered magnesium oxide 400 mg oral tablet 1 tablet, By Mouth, Daily, # 30 tablet, 5 Refills, Maintenance, 07/18/22 8:15:00 EDT, [facility], 178, cm, 03/14/22 15:25:00 EST, Height, 72.5, kg, 03/08/22 4:29:00 EST, Dry Weight Start Date: 07/18/22 Stop Date: 01/14/23 Status: Ordered melatonin 3 mg oral tablet = 3 mg, By Mouth, Daily at bedtime, PRN Insomnia, 0 Refills, Maintenance, 10/26/22 13:25:00 EDT, Tablet, Partial fill upon patient request if the prescription is for a schedule II opioid drug. Start Date: 10/26/22 Status: Ordered metFORMIN 1000 mg oral tablet 1 tablet, By Mouth, 2 times a day, # 180 tablet, 0 Refills, Maintenance, 10/25/22 9:55:00 EDT, [facility], 178, cm, 10/25/22 7:25:00 EDT, Height, 79.5, kg, 10/20/22 13:34:00 EDT, Dry Weight Start Date: 10/25/22 Status: Ordered pantoprazole 40 mg oral delayed release tablet 1 tablet, By Mouth, Daily, # 90 tablet, 0 Refills, Maintenance, 10/25/22 9:55:00 EDT, 178, cm, 10/25/22 7:25:00 EDT, Height, 79.5, kg, 10/20/22 13:34:00 EDT, Dry Weight Start Date: 10/25/22 Status: Ordered pregabalin 25 mg oral capsule 1 capsule = 25 mg, By Mouth, 2 times a day, # 60 capsule, 0 Refills, Maintenance, 08/05/22 18:19:00EDT, Capsule, [facility], Partial fill upon [...] 07/19/22 8:33:00 EDT, Route to Pharmacy Electronically, [facility], 178, cm, 03/14/22 15:25:00 EST, Height, 72.5, kg, 03/08/22 4:29:00 EST, Dry Weight Start Date: 07/19/22 Status: Ordered Vitamin C 500 mg oral tablet 1 tablet, By Mouth, Daily, # 90 tablet, 0 Refills, Maintenance, 10/24/22 19:19:00 EDT, [facility], 178, cm, 10/24/22 13:06:00 EDT, Height, 79.5, kg, 10/20/22 13:34:00 EDT, Dry Weight Start Date: 10/24/22 Status: Ordered Vitamin D3 50,000 intl units oral capsule 1 capsule, By Mouth, Every week, # 12 capsule, 0 Refills, Maintenance, 10/25/22 12:36:00 EDT, [facility], 178, cm, 10/25/22 7:25:00 EDT, Height, 79.5, kg, 10/20/22 13:34:00 EDT, Dry Weight Start Date: 10/25/22 Status: Ordered Problem List Condition Confirmation Course [...] Confirmed Active 1angioplasty 2000; 3 stents at [facility] 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 RN Member Role: Primary Care Nurse Name: Alicia Negron Position: [facility] RN Member Role: Primary Care Nurse Name: Hanna Dailey Position: [facility] RN Member Role: Primary Care Nurse Name: Nereida Dobbins RN Position: [facility] RN Member Role: Primary Care Nurse Name: Gela Orosco RN Position: [facility] RN Member Role: Primary Care Nurse Name: Jessica Castrejon RN Position: [facility] RN Member Role: Primary Care Nurse Name: Hien Hidalgo RN Position: [facility] RN Member Role: Primary Care Nurse Name: Phuong Balderas RN Position: [facility] SN RN Member Role: Primary Care Nurse Name: Evelyn Mcnulty RN Position: [facility] RN Member Role: Primary Care Nurse Name: Yanely Shanks RN Position: [facility] RN Member Role: Primary Care Nurse Name: Sonya Dee NP Position: [facility] PCO Associate Professional Member Role: PCP Address: Address: [address] [place] [address], [address] Name: Pola Reid RN Position: [facility] RN Supv Member Role: Primary Care Nurse Name: Betzy Beckford RN Position: [facility] RN Member Role: Primary Care Nurse Name: Zully Jara Position: [facility] RN Member Role: Primary Care Nurse Name: Yunior Bui RN Position: [facility] RN Member Role: Primary Care Nurse Name: Candaec Liang RN Position: [facility] RN Member Role: Primary Care Nurse Name: Dedra Lezama Position: [facility] RN Member Role: Primary Care Nurse Name: Pat Fernando RN Position: [facility] RN Member Role: Primary Care Nurse Name: Randa Sagastume RN Position: [facility] RN Member Role: Primary Care Nurse Name: Mitra Patel Position: [facility] RN Member Role: Primary Care Nurse Name: Kacie Campbell RN Position: [facility] RN Member Role: Primary Care Nurse Name: Charito Vazquez RN Position: [facility] ED RN W/OE and Tasks Member Role: Primary Care Nurse Name: Dylan Bond RN Position: [facility] RN Member Role: Primary Care Nurse Name: Lydia Doherty RN Position: [facility] RN Member Role: Primary Care Nurse Name: Elie Davis RN Position: [facility] RN Member Role: Primary Care Nurse Name: Delfina Still RN Position: [facility] RN Member Role: Primary Care Nurse Name: Chandni Gibbons RN Position: [facility] RN Member Role: Primary Care Nurse Name: Viry Zacarias RN Position: [facility] RN Member Role: Primary Care Nurse Name: Kerri Cunha RN Position: [facility] Electrical Design Engineer Member Role: Primary Care Nurse Name: Atiya Mcintyre RN Position: [facility] RN Member Role: Primary Care Nurse Care Team Related Persons Name: IBETH BRUNNER Address: home [address] [address] Name: IBETH CORRAL Address: home [address] [address]
--- OUTSIDE RECORDS SUMMARY | 2023-04-11 15:18 | XMS_ITS | Continuity of Care Document ---
Author Name Unknown Organization [facility] Adult Address [address] [place] [address]- Care Team Providers Care Machinist 2Nd Shift Name Role Phone Sonya Dee NP Primary Care Physician Encounter [facility] [place] Date(s): 05/18/20 - 06/17/20 [facility] Adult [address] [place] [id number]- Allergies, Adverse Reactions, Alerts Substance Reaction Severity [...] 5 Refills, Maintenance, 06/14/20 10:21:00 EST, Tablet, [id number], Partial fill upon patient request if the prescription is fora schedule II opioid drug., 177.8, cm, 06/14/20 9:3... Start Date: 06/14/20 Stop Date: 12/11/20 Status: Ordered lisinopril 20 mg oral tablet 20 mg, 1, tablet, By Mouth, Daily, # 90 tablet, Refills 0, Tot. Refills 0, Maintenance, 05/12/20 9:54:00 EST, Route to Pharmacy Electronically, [id number], Partial fill upon patient request if the prescription is for a schedule II opi... Start Date: 05/12/20 Stop Date: 08/10/20 Status: Ordered metFORMIN 1000 mg oral tablet 1 tablet = 1,000 mg, By Mouth, 2 times a day, # 60 tablet, 0 Refills, Maintenance, 03/15/20 12:57:00 EST, Tablet, [facility], Partial fill upon patient request, 178, cm, 03/15/20 11:15:00 EST, Height, 105, kg, 03/12/20 6:12:00 EST, Dry W... Start Date: 03/15/20 Status: Ordered ofloxacin 0.3% otic solution See Instructions, 5 drops Right ear once daily x 7 days, # 10 mL, Refills 0, Tot. Refills 0, Maintenance, 03/15/20 14:25:00 EST, Instructions Replace Required Details, Route to Pharmacy Electronically, [facility], Partial fill upon patie... Start Date: 03/15/20 Status: Ordered oxyCODONE 5 mg oral tablet See Instructions, 28 days one tablet 5 x day, # 140 tablet, Refills 0, Tot. Refills 0, Maintenance,06/15/20 14:22:00 EST, Instructions Replace Required Details, Route to Pharmacy Electronically, [facility] #[id number], Partial fill upon patient... Start Date: 06/15/20 Status: Ordered Probiotic Formula (Bacillus Coagulans) oral capsule 1 capsule, By Mouth, Daily, # 10 capsule, 0 Refills, Maintenance, 04/14/20 11:39:00 EST, Capsule, [facility] #[id number], Partial fill upon patient request if the prescription is for a schedule II opioid drug., 1 capsule By Mouth Daily, 178, cm,... Start Date: 04/14/20 Status: Ordered simvastatin 40 mg oral tablet 40 mg, 1, tablet, By Mouth, Daily at bedtime, # 30 tablet, Refills 0, Tot. Refills 0, Maintenance, 03/15/20 12:20:00 EST, Route to Pharmacy Electronically, [facility], Partial fill uponpatient request, 178, cm, 03/15/20 11:15:00 EST, He... Start Date: 03/15/20 Status: Ordered Problem List Condition Effective Dates Status Health Status Inform ant Benign hypertension(Confirmed) Active CAD (coronary artery disease)(Confirmed) 1 Active Chronic lower back pain(Confirmed) Active Diabetes mellitus(Confirmed) Active Encephalopathy(Confirmed) Active Dyslipidemia(Confirmed) Active 1angioplasty 2000; 3 stents at [facility] Social History Social History Type Response Smoking Status Smoker, current stat us unknown; Type: Cigarettes; Other: 1/2-1 pk; entered on: 05/10/20 Sex
--- OUTSIDE RECORDS SUMMARY | 2023-04-11 15:18 | XMS_ITS | Continuity of Care Document ---
Author Name Unknown Organization [facility] Adult Address [address] [place] [address]- Care Team Providers Care Senior Applications Engineer Name Role Phone Luiz SALAS, Sonya Primary Care Physician Encounter [facility] [place] Date(s): 08/04/21 - 09/03/21 [facility] Adult [address] [place] [id number]- Allergies, Adverse Reactions, Alerts Substance Reaction Severity [...] capsule, 11 Refills, Maintenance,05/02/21 10:36:00 EST, Capsule, [facility] #[id number], Partial fill upon patient request if the prescription is for a schedule II opioid drug., 178, cm, 0... Start Date: 05/02/21 Stop Date: 04/27/22 Status: Ordered clonazePAM 0.5 mg oral tablet 1 tablet = 0.5 mg, By Mouth, 3 times a day, # 90 tablet, 1 Refills, Maintenance, 07/25/21 17:16:00 EDT, Tablet, [facility] #[id number], Partial fill upon patient request if the prescription is for a schedule II opioid drug., 178, cm, 07/24/21 16:10:00 EDT... Start Date: 07/25/21 Stop Date: 09/23/21 Status: Ordered clopidogrel 75 mg oral tablet 1, tablet, By Mouth, Daily, # 90 tablet, Refills 1, Route to Pharmacy Electronically, [id number], 178, cm, 05/11/21 8:52:00 EST, Height, 81, kg, 05/06/21 2:22:00 EST, Dry Weight Start Date: 05/30/21 Status: Ordered glimepiride 4 mg oral tablet 1 tablet, By Mouth, 2 times a day, # 60 tablet, 5 Refills, Maintenance, 05/02/21 10:36:00 EST, [facility]/pharmacy #[id number], 178, cm, 04/27/21 4:54:00 EST, [...] 5 Refills, Maintenance, 05/02/21 10:36:00 EST, Tablet, [facility]/pharmacy #[id number], Partial fill upon patient request, 178, cm, 04/27/21 4:54:00 EST,Height, 84.3, kg, 04/23/21 2:54:00 EST, Dry Weight Start Date: 05/02/21 Status: Ordered oxyCODONE 5 mg oral tablet 5 mg, 1, tablet, By Mouth, 5 times a day, RUBBER CHEMIST checked., # 140 tablet, Refills 0, Tot. [...] 05/02/21 10:38:00 EST, Route to Pharmacy Electronically, [facility]/pharmacy #[id number], Partial fill upon patient request if [...] 11/07/20 Active 1angioplasty 2000; 3 stents at [facility] 2R frontal stroke secondary to [...]
--- OUTSIDE RECORDS SUMMARY | 2023-04-11 15:18 | XMS_ITS | Continuity of Care Document ---
Author Name Unknown Organization [facility] Adult Address [address] [place] [address]- Care Team Providers Care Boiler Plant Operator Name Role Phone Luiz SALAS, Sonya Primary Care Physician Encounter [facility] [place] Date(s): 10/06/20 - 11/05/20 [facility] Adult [address] [place] [address]- Allergies, Adverse Reactions, Alerts Substance Reaction Severity [...] opioid drug. Start Date: 05/25/20 Status: Ordered cholecalciferol 50,000 intl units oral capsule 1 capsule = 50,000 International_Units, By Mouth, Every week, # 5 capsule, 11 Refills, Maintenance,08/19/20 5:59:00 EDT, Capsule, [id number], Partial fill upon patient request if the [...] Ordered glimepiride 4 mg oral tablet 1 tablet = 4 mg, By Mouth, 2 times a day, # 60 tablet, 2 Refills, Maintenance, 10/07/20 11:44:00 EDT, Tablet, [facility][id number], Partial fill upon patient request if the prescription is fora schedule II opioid drug., 177.8, cm, 08/08/20 11:... Start Date: 10/07/20 Stop Date: 01/05/21 Status: Ordered lisinopril 20 mg oral tablet 20 mg, 1, tablet, By Mouth, Daily, # 90 tablet, Refills 1, Tot. Refills 1, Maintenance, 08/19/20 10:00:00 EDT, Route to Pharmacy Electronically, [facility][id number], Partial fill upon patientrequest if the prescription is for a schedule II op... Start Date: 08/19/20 Stop Date: 02/15/21 Status: Ordered metFORMIN 1000 mg oral tablet 1 tablet = 1,000 mg, By Mouth, 2 times a day, # 60 tablet, 0 Refills, Maintenance, 03/15/20 12:57:00 EST, Tablet, [facility], Partial fill upon patient request, 178, cm, 03/15/20 11:15:00 EST, Height, 105, kg, 03/12/20 6:12:00 EST, Dry W... Start Date: 03/15/20 Status: Ordered ofloxacin 0.3% otic solution See Instructions, 5 drops Right ear once daily x 7 days, # 10 mL, Refills 0, Tot. Refills 0, Maintenance, 03/15/20 14:25:00 EST, Instructions Replace Required Details, Route to Pharmacy Electronically, [facility], Partial fill upon patie... Start Date: 03/15/20 Status: Ordered oxyCODONE 5 mg oral tablet 5 mg, 1, tablet, By Mouth, 5 times a day, SCOURING PADS SUPERVISOR checked., # 140 tablet, Refills 0, Tot. Refills 0, Maintenance, 11/01/20 14:58:00 EDT, Route to Pharmacy Electronically, [facility][id number], Partial fill upon patient request if the prescription i... Start Date: 11/01/20 Status: Ordered Probiotic Formula (Bacillus Coagulans) oral capsule 1 capsule, By Mouth, Daily, # 10 capsule, 0 Refills, Maintenance, 04/14/20 11:39:00 EST, Capsule, [facility][id number], Partial fill upon patient request if the prescription is for a schedule II opioid drug., 1 capsule By Mouth Daily, 178, cm,... Start Date: 04/14/20 Status: Ordered simvastatin 40 mg oral tablet 40 mg, 1, tablet, By Mouth, Daily at bedtime, # 30 tablet, Refills 5, Tot. Refills 5, Maintenance, 08/19/20 5:58:00 EDT, Route to Pharmacy Electronically, [facility][id number], Partial fill upon patient request, 177.8, cm, 08/08/20 11:27:00 EDT... Start Date: 08/19/20 Stop Date: 02/15/21 Status: Ordered Problem List Condition Effective Dates Status Health Status Inform ant Benign hypertension(Confirmed) Active CAD (coronary artery disease)(Confirmed) 1 Active Chronic lower back pain(Confirmed) Active Diabetes mellitus(Confirmed) Active Encephalopathy(Confirmed) Active Dyslipidemia(Confirmed) Active 1angioplasty 2000; 3 stents at [facility] Social History Social History Type Response Smoking Status Smoker, current stat us unknown; Type: Cigarettes; Other: 1/2-1 pk; entered on: 05/10/20 Sex
--- OUTSIDE RECORDS SUMMARY | 2023-04-11 15:18 | XMS_ITS | Continuity of Care Document ---
Author Name Unknown Organization [facility] Adult Address [address] [place] [address]- Care Team Providers Care Housekeeping Staff Name Role Phone Luiz SALAS, Sonya Primary Care Physician [phone] Encounter [facility] Date(s): 01/03/22 - 02/02/[address] [facility] Adult [address] [place] [phone]- Allergies, Adverse Reactions, Alerts Substance Reaction Severity [...] opioid drug. Start Date: 01/17/22 Status: Ordered depends xl depends xl, See Instructions, # 120 each, Refills 11, Tot. Refills 11, Maintenance, DX: incontinence N39.46, 09/08/21 8:51:00 EDT, Supply Start Date: 09/08/21 Status: Ordered folic acid 1 mg oral [...] 5 Refills, Maintenance, 01/17/22 14:43:00 EDT, [facility], 177, cm, 01/17/22 7:37:00 EDT, Height, 75, kg, 01/11/22 12:33:00 EDT, Dry Weight Start Date: 01/17/22 Status: Ordered magnesium oxide 400 mg oral tablet 1 tablet, By Mouth, Daily, # 28 tablet, 5 Refills, Maintenance, 01/17/22 14:43:00 EDT, [facility], 177, cm, 01/17/22 7:37:00 EDT, Height, 75, kg, 01/11/22 12:33:00 EDT, Dry Weight Start Date: 01/17/22 Status: Ordered metFORMIN 1000 mg oral tablet 1 tablet, By Mouth, 2 times a day, # 56 tablet, 5 Refills, Maintenance, 01/17/22 14:43:00 EDT, [facility], 177, cm, 01/17/22 7:37:00 EDT, Height, 75, kg, 01/11/22 12:33:00 EDT, Dry Weight Start Date: 01/17/22 Status: Ordered Narcan 4 mg/0.1 mL nasal [...] Dry Weight Start Date: 01/17/22 Status: Ordered raised toilet seat raised toilet seat, See Instructions, # 1 each, Refills 0, Tot. Refills 0, Maintenance, JAZMYN: lieftime DX: M54.5, I63.9, 01/24/21 10:39:00 EDT, Supply Start Date: 01/24/21 Status: Ordered sertraline 25 mg oral tablet 1 tablet = 25 mg, By Mouth, Daily, 0 Refills, Maintenance, 01/17/22 12:35:00 EDT, Tablet, Partial fill upon patient request if the prescription is for a schedule II opioid drug. Start Date: 01/17/22 Status: Ordered traZODone 50 mg oral tablet 25 mg, 0.5, tablet, By Mouth, Daily at supper, Refills 0, Maintenance, 01/17/22 12:35:00 EDT, Partial fill upon patient request if the prescription is for a schedule II opioid drug. Start Date: 01/17/22 Status: Ordered Vitamin B1 100 mg oral tablet 1, tablet, By Mouth, Daily, # 28 tablet, Refills 5, Maintenance, 01/17/22 14:43:00 EDT, Route to Pharmacy Electronically, [facility], 177, cm, 01/17/22 7:37:00 EDT, Height, 75, kg, 01/11/22 12:33:00 EDT, Dry Weight Start Date: 01/17/22 Status: Ordered Vitamin C 500 mg oral [...] Condition Confirmation Course Effective Dates Status H ealt Status Informant Benign hypertension Confirmed Active CAD (coronary artery disease) 1 Confirmed Active Chronic lower back pain Confirmed Active Diabetes mellitus Confirmed Active Encephalopathy Confirmed Active Acute ischemic stroke 2 Confirmed 11/07/20 Active 1angioplasty 2000; 3 stents at [facility] 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 [...] Personnel Name: Sonya Dee NP Address: Address: [address] [place] [address], [address] [place], [place] [address]
--- OUTSIDE RECORDS SUMMARY | 2023-04-11 15:18 | XMS_ITS | Continuity of Care Document ---
Author Name Unknown Organization [facility] Adult Address [address] [place] [address]- Care Team Providers Care Video Production Engineer Name Role Phone Luiz SURGICAL SALES REPRESENTATIVE, Sonya Primary Care Physician [facility] Date[facility]s): 07/31/22 - 08/30/22 [facility] [address] [place] [address]- Allergies, Adverse Reactions, Alerts Substance Reaction Severity [...] 05/26/20 Not Given Patient Refuses 1Result Comment: [facility]: [id number] Medications Aspirin Low Dose 81 mg oral [...] Maintenance, 07/31/22 13:23:00 EDT, [facility], 178, cm, 07/23/22 11:32:00 EDT, [...] Route to Pharmacy Electronically, [facility], 178, cm, 07/23/22 11:32:00 EDT, [...] 0 Refills, Maintenance, 08/01/22 11:17:00 EDT, [facility], 178, cm, 07/23/22 11:32:00 EDT, Height, [...] 13:25:00 EDT, Route to Pharmacy Electronically, [facility], 178, cm, 07/23/22 11:32:00 EDT, Height, [...] 1 Refills, Maintenance, 07/31/22 13:25:00 EDT, [facility], 178, cm, 07/23/22 11:32:00 EDT, Height, 72.5, kg, 03/08/22 4:29:00 EST, Dry Weight Start Date: 07/31/22 Status: Ordered nicotine 21 mg/24 hr transdermal film, extended release 1 patch, Topically, Daily, # 30 patch, 0 Refills, Maintenance, 03/14/22 14:53:00 EST, Patch, [facility], Partial fill upon patient request [...] 8:33:00 EDT, Route to Pharmacy Electronically, [facility], 178, cm, 03/14/22 15:25:00 EST, Height, [...] Confirmed Active 1angioplasty 2000; 3 stents at [facility] 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 [...] Primary Care Nurse Name: Hanna Dailey Position: [facility] RN Member Role: Primary Care Nurse Name: Gela Orosco RN Position: S RN Member Role: Primary Care Nurse Name: Jessica Castrejon RN Position: S RN Member Role: Primary Care Nurse Name: Hien Hidalgo RN Position: [facility] RN Member Role: Primary Care Nurse Name: Phuong Balderas RN Position: [facility] SN RN Member Role: Primary Care Nurse Name: Evelyn Mcnulty RN Position: S RN Member Role: Primary Care Nurse Name: Sonya Dee NP Position: [facility] PCO Associate Professional Member Role: PCP Address: Address: [address] [facility], 3rd Floor [facility], 1927[facility] [place] [address]- Name: Pola Reid RN Position: [facility] RN Supv Member Role: Primary Care Nurse Name: Betzy Beckford RN Position: [facility] RN Member Role: Primary Care Nurse Name: Zully Jara Position: [facility] RN Member Role: Primary Care Nurse Name: Yunior Bui RN Position: [facility] RN Member Role: Primary Care Nurse Name: Candace Liang RN Position: [facility] RN Member Role: Primary Care Nurse Name: Dedra Lezama Position: [facility] RN Member Role: Primary Care Nurse Name: Pat Fernando RN Position: [facility] RN Member Role: Primary Care Nurse Name: Randa Sagastume RN Position: [facility] RN Member Role: Primary Care Nurse Name: Mitra Patel Position: [facility] RN Member Role: Primary Care Nurse Name: Kacie Campbell RN Position: [facility] RN Member Role: Primary Care Nurse Name: Charito Vazquez RN Position: [facility] ED RN W/OE and Tasks Member Role: Primary Care Nurse Name: Dylan Bond RN Position: [facility] RN Member Role: Primary Care Nurse Name: Lydia Doherty RN Position: [facility] RN Member Role: Primary Care Nurse Name: Elie Davis RN Position: [facility] RN Member Role: Primary Care Nurse Name: Delfina Still RN Position: [facility] RN Member Role: Primary Care Nurse Name: Chandni Gibbons RN Position: [facility] RN Member Role: Primary Care Nurse Name: Viry Zacarias RN Position: [facility] RN Member Role: Primary Care Nurse Name: Kerri Cunha RN Position: [facility] Hospital Package Designer Member Role: Primary Care Nurse Name: Atiya Mcintyre RN Position: [facility] RN Member Role: Primary Care Nurse Care Team Related Persons Name: SANJAY BRUNNERN Address: home [address] [place] [address] Name: SANJAY CORRALN Address: home [address] [facility] [address] [place] [address]
--- OUTSIDE RECORDS SUMMARY | 2023-04-11 15:18 | XMS_ITS | Continuity of Care Document ---
Author Name Unknown Organization [facility] Adult Address [address] [place] [address]- Care Team Providers Care Head Refrigeration Engineer Name Role Phone Luiz SALAS, Sonya Primary Care Physician [facility] Date(s): 12/18/22 - 01/17/[address] [facility] Adult [address] [place] [address]- Allergies, Adverse Reactions, Alerts Substance Reaction Severity [...] pneumococcal 23-valent vaccine 02/04/13 Recorded 1Result Comment: [facility]: [id number] Medications acetaminophen 325 mg oral tablet 650 [...] Confirmed Active 1angioplasty 2000; 3 stents at [facility] 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 [...] Care Nurse Name: Gela Orosco RN Position: [facility] RN Member Role: Primary Care Nurse Name: Jessica Castrejon RN Position: [facility] RN Member Role: Primary Care Nurse Name: Hien Hidalgo RN Position: [facility] RN Member Role: Primary Care Nurse Name: Phuong Balderas RN Position: [facility] SN RN Member Role: Primary Care Nurse Name: Evelyn Mcnulty RN Position: [facility] RN Member Role: Primary Care Nurse Name: Yanely Shanks RN Position: [facility] RN Member Role: Primary Care Nurse Name: Sonya Dee NP Position: [facility] PCO Associate Professional Member Role: PCP Address: Address: [address] [place] [address], [address] [place] [address] Name: Siddhartha Andino RN Position: [facility] RN Member Role: Primary Care Nurse Name: Pola Reid RN Position: [facility] RN Supv Member Role: Primary Care Nurse Name: Betzy Beckford RN Position: [facility] RN Member Role: Primary Care Nurse Name: Susie Galicia RN Position: [facility] RN Member Role: Primary Care Nurse Name: Ezra Acuna RN Position: [facility] RN Member Role: Primary Care Nurse Name: Zully Jara Position: [facility] RN Member Role: Primary Care Nurse Name: Yunior Bui RN Position: [facility] RN Member Role: Primary Care Nurse Name: Candace Liang RN Position: [facility] RN Member Role: Primary Care Nurse Name: Marci Padilla RN Position: [facility] RN Member Role: Primary Care Nurse Name: Dedra Lezama Position: [facility] RN Member Role: Primary Care Nurse Name: Pat Fernando RN Position: [facility] RN Member Role: Primary Care Nurse Name: Marquita Siddiqui RN Position: [facility] RN Member Role: Primary Care Nurse Name: Lazara Krueger RN Position: [facility] RN Member Role: Primary Care Nurse Name: Randa Sagastume RN Position: [facility] RN Member Role: Primary Care Nurse Name: Mitra Patel Position: [facility] RN Member Role: Primary Care Nurse Name: Kacie Campbell RN Position: [facility] RN Member Role: Primary Care Nurse Name: Charito Vazquez RN Position: [facility] ED RN W/OE and Tasks Member Role: Primary Care Nurse Name: Dylan Bond RN Position: [facility] RN Member Role: Primary Care Nurse Name: Lydia Doherty RN Position: [facility] RN Member Role: Primary Care Nurse Name: Elie Davis RN Position: [facility] RN Member Role: Primary Care Nurse Name: Delfina Still RN Position: [facility] RN Member Role: Primary Care Nurse Name: Mary Wagner RN Position: [facility] RN Member Role: Primary Care Nurse Name: Chandni Gibbons RN Position: [facility] SN RN Member Role: Primary Care Nurse Name: Reanna Chow RN Position: [facility] RN Member Role: Primary Care Nurse Name: Brayden Elizabeth RN Position: [facility] RN Member Role: Primary Care Nurse Name: Viry Zacarias RN Position: [facility] RN Member Role: Primary Care Nurse Name: Kerri Cunha RN Position: [facility] Hospital Bottom Scrubber Member Role: Primary Care Nurse Name: Atiya Mcintyre RN Position: [facility] RN Member Role: Primary Care Nurse Care Team Related Persons Name: SANJAY CORRALN Address: [address] [place] [address]
--- OUTSIDE RECORDS SUMMARY | 2023-04-11 15:18 | XMS_ITS | Continuity of Care Document ---
Author Name Unknown Organization [facility] Address [address] [place] [address]- Care Team Providers Care Orderlies Teacher Name Role Phone Luiz SALAS, Sonya Primary Care Physician Encounter [facility] Date(s): 07/28/21 - 08/27/21 [facility] [address] [place] [phone]- Allergies, Adverse Reactions, Alerts Substance Reaction Severity [...] capsule, 11 Refills, Maintenance,05/02/21 10:36:00 EST, Capsule, [facility]acy #[id number], Partial fill upon patient request if the prescription is for a schedule II opioid drug., 178, cm, 0... Start Date: 05/02/21 Stop Date: 04/27/22 Status: Ordered clonazePAM 0.5 mg oral tablet 1 tablet = 0.5 mg, By Mouth, 3 times a day, # 90 tablet, 1 Refills, Maintenance, 07/25/21 17:16:00 EDT, Tablet, [facility]/pharmacy #[id number], Partial fill upon patient request if the prescription is for a schedule II opioid drug., 178, cm, 07/24/21 16:10:00 EDT... Start Date: 07/25/21 Stop Date: 09/23/21 Status: Ordered clopidogrel 75 mg oral tablet 1, tablet, By Mouth, Daily, # 90 tablet, Refills 1, Route to Pharmacy Electronically, [facility] [id number], 178, cm, 05/11/21 8:52:00 EST, Height, 81, kg, 05/06/21 2:22:00 EST, Dry Weight Start Date: 05/30/21 Status: Ordered glimepiride 4 mg oral tablet 1 tablet, By Mouth, 2 times a day, # 60 tablet, 5 Refills, Maintenance, 05/02/21 10:36:00 EST, [facility]/pharmacy #[id number], 178, cm, 04/27/21 4:54:00 EST, Height, [...] 10/29/21 10:39:00 EDT, 05/02/21 10:39:00 EST, Tablet, [facility]/pharmacy #[id number], Partial fill upon patient request if the prescription is for a schedule II opioid drug., 178, cm,... Start Date: 05/02/21 Stop Date: 10/29/21 Status: Ordered metFORMIN 1000 mg oral tablet 1 tablet = 1,000 mg, By Mouth, 2 times a day, # 60 tablet, 5 Refills, Maintenance, 05/02/21 10:36:00 EST, Tablet, [facility]/pharmacy #[id number], Partial fill upon patient request, 178, cm, 04/27/21 4:54:00 EST,Height, 84.3, kg, 04/23/21 2:54:00 EST, Dry Weight Start Date: 05/02/21 Status: Ordered oxyCODONE 5 mg oral tablet 5 mg, 1, tablet, By Mouth, 5 times a day, PAINTING INSTRUCTOR checked., # 140 tablet, Refills 0, Tot. [...] 05/02/21 10:38:00 EST, Route to Pharmacy Electronically, [facility]/pharmacy #[id number], Partial fill upon patient request if the [...] 11/07/20 Active 1angioplasty 2000; 3 stents at [facility] 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 [...]
--- OUTSIDE RECORDS SUMMARY | 2023-04-11 15:18 | XMS_ITS | Continuity of Care Document ---
Author Name Unknown Organization [facility] Adult Address [address] [place] [address]- Care Team Providers Care Rotor Winder Name Role Phone Luiz SALAS, Sonya Primary Care Physician [phone] Encounter [facility] Date(s): 01/16/21 - 02/26/21 [facility] [address] [place] [address]- Attending Physician: Ondina Hickey NP Referring Physician: Sonya Dee NP Allergies, Adverse Reactions, [...] 5 Refills, Maintenance, 01/16/21 10:30:00 EDT, Tablet, [facility]/pharmacy #[id number], Partial fill upon patient request if the prescription is for a schedule II opioid drug., 178, cm, 12/29/20 5:31:00 EDT, Height, 1... Start Date: 01/16/21 Stop Date: 07/15/21 Status: Ordered aspirin 81 mg oral tablet, chewable 81 mg, 1, tablet, By Mouth, Daily, # 30 tablet, Refills 5, Tot. Refills 5, Maintenance, 01/16/21 10:30:00 EDT, Route to Pharmacy Electronically, [facility]/pharmacy #[id number], Partial fill upon patient request [...] capsule, 11 Refills, Maintenance,01/16/21 10:26:00 EDT, Capsule, [facility]/pharmacy #[id number], Partial fill upon patient request if the prescription is for a schedule II opioid drug., 178, cm, 0... Start Date: 01/16/21 Stop Date: 01/11/22 Status: Ordered clonazePAM 0.5 mg oral tablet 1 tablet = 0.5 mg, By Mouth, 3 times a day, # 90 tablet, 1 Refills, Maintenance, 01/16/21 10:52:00 EDT, Tablet, [facility]/pharmacy #[id number], Partial fill upon patient request [...] 01/16/21 10:29:00 EDT, Route to Pharmacy Electronically, [facility]/pharmacy #[id number], Partial fill upon patient request [...] 0 Refills, Maintenance, 03/15/20 12:57:00 EST, Tablet, [facility], Partial fill upon patient request, 178, cm, 03/15/20 11:15:00 EST, Height, 105, kg, 03/12/20 6:12:00 EST, Dry W... Start Date: 03/15/20 Status: Ordered MiraLax oral powder for reconstitution = 17 Gm, By Mouth, Daily, for 14 days, dissolve in water before taking, # 238 Gm, 0 Refills, Acute 02/27/21 13:29:00 EST, 02/13/21 13:29:00 EDT, REC Powder, [id number], Partial fill upon patient request if the prescription is for a schedule II... Start Date: 02/13/21 Stop Date: 02/27/21 Status: Ordered oxyCODONE 5 mg oral tablet 5 mg, 1, tablet, By Mouth, 5 times a day, AN/SYQ 13 NAV/C2 OPERATOR checked., # 140 tablet, Refills 0, Tot. Refills 0, Maintenance, 02/24/21 15:51:00 EDT, Route to Pharmacy Electronically, [facility]/pharmacy #[id number], Partial fillupon patient request if [...] 12/28/20 12:50:00 EDT, Route to Pharmacy Electronically, [facility], Partial fill upon patient [...] 11/07/20 Active 1angioplasty 2000; 3 stents at [facility] 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 [...]
--- OUTSIDE RECORDS SUMMARY | 2023-04-11 15:18 | XMS_ITS | Continuity of Care Document ---
Author Name Unknown Organization [facility] Adult Address [address] [place] [address]- Care Team Providers Care Study Abroad Advisor Name Role Phone Luiz SALAS, Sonya Primary Care Physician [phone] Encounter [facility] Date(s): 01/10/23 - 02/09/23 [facility] [address] [place] [id number]- Allergies, Adverse Reactions, Alerts Substance Reaction Severity Status penicillin 1 Active gabapentin Swelling Moderate Active sulfa drugs Active Other Food Allergy 2 N&V - Nausea and vomiting Active Onions Active 1difficulty breathing/swollen lips 2Calf Liver Immunizations [...] pneumococcal 23-valent vaccine 02/04/13 Recorded 1Result Comment: [facility]: [id number] Medications acetaminophen 325 mg oral tablet 650 [...] Confirmed Active 1angioplasty 2000; 3 stents at [facility] 2R frontal stroke secondary to [...] Member Role: Primary Care Nurse Name: Gela Orocso RN Position: [facility] RN Member Role: Primary Care Nurse Name: Jessica Castrejon RN Position: [facility] RN Member Role: Primary Care Nurse Name: Hien Hidalgo RN Position: [facility] RN Member Role: Primary Care Nurse Name: Phuong Balderas RN Position: [facility] RN Member Role: Primary Care Nurse Name: Evelyn Mcnulty RN Position: [facility] RN Member Role: Primary Care Nurse Name: Yanely Shanks RN Position: [facility] RN Member Role: Primary Care Nurse Name: Sonya Dee NP Position: [facility] PCO Associate Professional Member Role: PCP Address: Address: [address] [place] [address], [address] [place], [place] [address] Name: Siddhartha Andino RN Position: [facility] RN Member Role: Primary Care Nurse Name: Pola Reid RN Position: [facility] RN Supv Member Role: Primary Care Nurse Name: Betzy Beckford RN Position: [facility] RN Member Role: Primary Care Nurse Name: Susie Galicia RN Position: [facility] RN Member Role: Primary Care Nurse Name: Ezra Acuna RN Position: [facility] RN Member Role: Primary Care Nurse Name: Zully Jara Position: [facility] RN Member Role: Primary Care Nurse Name: Yunior Bui RN Position: [facility] RN Member Role: Primary Care Nurse Name: Candace Liang RN Position: [facility] RN Member Role: Primary Care Nurse Name: Marci Padilla RN Position: [facility] RN Member Role: Primary Care Nurse Name: Dedra Lezama Position: [facility] RN Member Role: Primary Care Nurse Name: Pat Fernando RN Position: [facility] RN Member Role: Primary Care Nurse Name: Maqruita Siddiqui RN Position: [facility] RN Member Role: Primary Care Nurse Name: Lazara Krueger RN Position: [facility] RN Member Role: Primary Care Nurse Name: Randa Sagastume RN Position: [facility] RN Member Role: Primary Care Nurse Name: Mitra Patel Position: [facility] RN Member Role: Primary Care Nurse Name: Kacie Campbell NP Position: [facility] PCO Associate Professional Member Role: Primary Care Nurse Address: Address: [address] [place] [address] [facility] [place] [address]- [place] Name: Charito Vazquez RN Position: [facility] ED RN W/OE and Tasks Member Role: Primary Care Nurse Name: Dylan Bond RN Position: [facility] RN Member Role: Primary Care Nurse Name: Lydia Doherty RN Position: [facility] RN Member Role: Primary Care Nurse Name: Elie Davis RN Position: [facility] RN Member Role: Primary Care Nurse Name: Delfina Still RN Position: [facility] RN Member Role: Primary Care Nurse Name: Mary Wagner RN Position: [facility] RN Member Role: Primary Care Nurse Name: Chandni Gibbons RN Position: [facility] SN RN Member Role: Primary Care Nurse Name: Reanna Chow RN Position: [facility] RN Member Role: Primary Care Nurse Name: Brayden Elizabeth RN Position: [facility] RN Member Role: Primary Care Nurse Name: Viry Zacarias RN Position: [facility] RN Member Role: Primary Care Nurse Name: Kerri Cunha RN Position: [facility] Hospital Fitter Machinist Member Role: Primary Care Nurse Name: Atiya Mcintyre RN Position: [facility] RN Member Role: Primary Care Nurse Care Team Related Persons Name: SANJAY CORRALN Address: home [address] [facility] [facility] [address] [place] [address]
--- OUTSIDE RECORDS SUMMARY | 2023-04-11 15:18 | XMS_ITS | Continuity of Care Document ---
Author Name Unknown Organization [facility] Address [address] [facility], [address], [address] [place] [address]- Care Team Providers Care Air Traffic Controller Name Role Phone Luiz SALAS, Sonya Primary Care Physician Encounter [facility] Date(s): 11/21/20 - 11/28/20 [facility] [address], [address], [address] [place] [id number] Attending Physician: Julisa Walters MD, Kelsey Allergies, Adverse Reactions, Alerts Substance Reaction Severity [...] capsule, 11 Refills, Maintenance,08/19/20 5:59:00 EDT, Capsule, [id number], Partial fill upon patient request if the prescription is for a schedule II opioid drug., 17... Start Date: 08/19/20 Stop Date: 08/14/21 Status: Ordered clonazePAM 0.5 mg oral tablet TK 1 T PO TID PRN ANXIETY Start Date: 03/12/20 Status: Ordered Freestyle Lite [...] tablet, 2 Refills, Maintenance, 11/18/20 10:12:00 EDT, [id number], 178, cm, 11/14/20 9:36:00 EDT, Height, 100, [...] 0 Refills, Maintenance, 03/15/20 12:57:00 EST, Tablet, [facility], Partial fill upon patient request, 178, cm, 03/15/20 11:15:00 EST, Height, 105, kg, 03/12/20 6:12:00 EST, Dry W... Start Date: 03/15/20 Status: Ordered oxyCODONE 5 mg oral tablet 5 mg, 1, tablet, By Mouth, 5 times a day, MOTION STUDY ENGINEER checked., # 140 tablet, Refills 0, Tot. Refills 0, Maintenance, 11/01/20 14:58:00 EDT, Route to Pharmacy Electronically, [id number], Partial fill upon patient request if the prescription i... Start Date: 11/01/20 Status: Ordered pantoprazole 40 mg oral delayed [...] 11/07/20 Active 1angioplasty 2000; 3 stents at [facility] 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 [...]
--- OUTSIDE RECORDS SUMMARY | 2023-04-11 15:18 | XMS_ITS | Continuity of Care Document ---
Author Name Unknown Organization [facility] Address [address] [place] [address]- Care Team Providers Care Rf Test Technician Name Role Phone Luiz DIRECTOR SALES, Sonya Primary Care Physician [phone] [facility]counter [facility] Date[facility]s): 10/15/22 - 11/14/22 [facility] [address] [place] [address]- Allergies, Adverse Reactions, Alerts Substance Reaction Severity [...] 05/26/20 Not Given Patient Refuses 1Result Comment: [facility]: [id number] Medications albuterol-ipratropium 3 mg-0.5 mg/3 ml inhalation [...] 1 Refills, Maintenance, 07/31/22 13:23:00 EDT, [facility], 178, cm, 07/23/22 11:32:00 EDT, Height, 72.5, kg, 03/08/22 4:29:00 EST, Dry Weight Start Date: 07/31/22 Status: Ordered atorvastatin 40 mg oral tablet 1 tablet, By Mouth, Daily at bedtime, # 28 tablet, 5 Refills, Maintenance, 07/31/22 13:23:00 EDT, [facility], 178, cm, 07/23/22 11:32:00 [...] 13:50:00 EDT, Route to Pharmacy Electronically, [facility], 178, cm, 10/26/22 14:30:00 EDT, Height, 79.5, [...] 0 Refills, Maintenance, 10/25/22 9:55:00 EDT, [facility], 178, cm, 10/25/22 7:25:00 EDT, Height, [...] 13:25:00 EDT, Route to Pharmacy Electronically, [facility], 178, cm, 07/23/22 11:32:00 EDT, Height, [...] tablet, 0 Refills, Maintenance, 10/24/22 19:19:00 EDT, [facility], 178, cm, 10/24/22 13:06:00 EDT, Height, 79.5, kg, 10/20/22 13:34:00 EDT, Dry Weight Start Date: 10/24/22 Status: Ordered Vitamin D3 50,000 intl units oral capsule 1 capsule, By Mouth, Every week, # 12 capsule, 0 Refills, Maintenance, 10/25/22 12:36:00 EDT, [facility], 178, cm, 10/25/22 7:25:00 EDT, Height, [...] Confirmed Active 1angioplasty 2000; 3 stents at [facility] 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 [...] Team Personnel Name: Adelia Landry RN Position: [facility] RN Member Role: Primary Care Nurse Name: Alicia Negron Position: [facility] RN Member Role: Primary Care Nurse Name: Hanna Dailey Position: [facility] RN Member Role: Primary Care Nurse Name: Nereida Dobbins RN Position: [facility] RN Member Role: Primary Care Nurse Name: Gela Orosco RN Position: [facility] RN Member Role: Primary Care Nurse Name: Jessica Castrejon RN Position: [facility] RN Member Role: Primary Care Nurse Name: Hien Hidalgo RN Position: [facility] RN Member Role: Primary Care Nurse Name: Phuong Balderas RN Position: [facility] SN RN Member Role: Primary Care Nurse Name: Evelyn Mcnulty RN Position: [facility] RN Member Role: Primary Care Nurse Name: Yanely Shanks RN Position: [facility] RN Member Role: Primary Care Nurse Name: Sonya Dee NP Position: [facility] PCO Associate Professional Member Role: PCP Address: Address: [address] [place] [address], [address] Name: Pola Reid RN Position: [facility] RN Supv Member Role: Primary Care Nurse Name: Betzy Beckford RN Position: [facility] RN Member Role: Primary Care Nurse Name: Zully Jara Position: [facility] RN Member Role: Primary Care Nurse Name: Yunior Bui RN Position: [facility] RN Member Role: Primary Care Nurse Name: Candace Liang RN Position: [facility] RN Member Role: Primary Care Nurse Name: Dedra Lezama Position: [facility] RN Member Role: Primary Care Nurse Name: Pat Fernando RN Position: [facility] RN Member Role: Primary Care Nurse Name: Randa Sagastume RN Position: [facility] RN Member Role: Primary Care Nurse Name: Mitra Patel Position: [facility] RN Member Role: Primary Care Nurse Name: Kacie Campbell RN Position: [facility] RN Member Role: Primary Care Nurse Name: Charito Vazquez RN Position: [facility] SUNITHA RN W/OE and Tasks Member Role: Primary Care Nurse Name: Dylan Bond RN Position: [facility] RN Member Role: Primary Care Nurse Name: Lydia Doherty RN Position: [facility] RN Member Role: Primary Care Nurse Name: Elie Davis RN Position: [facility] RN Member Role: Primary Care Nurse Name: Delfina Still RN Position: [facility] RN Member Role: Primary Care Nurse Name: Chandni Gibbons RN Position: [facility] RN Member Role: Primary Care Nurse Name: Viry Zacarias RN Position: [facility] RN Member Role: Primary Care Nurse Name: Kerri Cunha RN Position: [facility] Hospital Management Developer Member Role: Primary Care Nurse Name: Atiya Mcintyre RN Position: [facility] RN Member Role: Primary Care Nurse Care Team Related Persons Name: IBETH BRUNNER Address: [address] [address] Name: IBETH CORRAL Address: [address] [address]
--- OUTSIDE RECORDS SUMMARY | 2023-04-11 15:18 | XMS_ITS | Continuity of Care Document ---
Author Name Unknown Organization [facility] Address [address] [place] [address]- Care Team Providers Care Solo Truck Driver Name Role Phone Luiz SALAS, Sonya Primary Care Physician [phone] [facility]counter [facility] Date[facility]s): 03/02/22 - 03/09/22 [facility] [address] [place] [id number]- Attending Physician: Sonya Dee NP Allergies, Adverse [...] 05/26/20 Not Given Patient Refuses 1Result Comment: [facility]: [id number] Medications Aspirin Low Dose 81 mg oral [...] opioid drug. Start Date: 11/28/21 Status: Ordered calcium carbonate 500 mg (200 mg elemental calcium) oral tablet, chewable 500 mg, 1, tablet, Chew, 3 times a day, PRN, # 45 tablet, Refills 0, Maintenance, as needed for dyspepsia, 03/08/22 2:38:00 EST, Partial fill upon patient request if the prescription is for a schedule II opioid drug. Start Date: 03/08/22 Status: Ordered clonazePAM 0.5 mg oral tablet [...] 5 Refills, Maintenance, 01/17/22 14:43:00 EDT, [facility], 177, cm, 01/17/22 7:37:00 EDT, Height, [...] 5 Refills, Maintenance, 01/17/22 14:43:00 EDT, [facility], 177, cm, 01/17/22 7:37:00 EDT, Height, 75, kg, 01/11/22 12:33:00 EDT, Dry Weight Start Date: 01/17/22 Status: Ordered metFORMIN 1000 mg oral tablet 1 tablet, By Mouth, 2 times a day, # 56 tablet, 5 Refills, Maintenance, 01/17/22 14:43:00 EDT, [facility], 177, cm, 01/17/22 7:37:00 EDT, Height, 75, kg, 01/11/22 12:33:00 EDT, Dry Weight Start Date: 01/17/22 Status: Ordered oxyCODONE 5 mg oral tablet TAKE 1 TABLET BY MOUTH 5 TIMES A DAY Start Date: 03/08/22 Status: Ordered pantoprazole 40 mg oral delayed release tablet 1 tablet, By Mouth, Daily, # 28 tablet, 5 Refills, Maintenance, 01/17/22 14:43:00 EDT, 177, cm, 01/17/22 7:37:00 EDT, Height, 75, kg, 01/11/22 12:33:00 EDT, Dry Weight Start Date: 01/17/22 Status: Ordered sertraline 25 mg oral tablet 1 tablet = 25 mg, By Mouth, Daily, # 30 tablet, 1 Refills, Maintenance, 03/02/22 10:53:00 EST, Tablet, [facility], Partial fill upon patient request if the prescription is for a schedule II opioid drug., 177, cm, 03/02/22 10:34:00 EST, Hei... Start Date: 03/02/22 Stop Date: 05/01/22 Status: Ordered Vitamin B1 100 mg oral [...] Daily, # 30 tablet, 0 Refills, Maintenance, 03/08/22 2:35:00 EST, Tablet, Partial fill upon patient request if the prescription is for a schedule II opioid drug. Start Date: 03/08/22 Status: Ordered Vitamin D3 50,000 intl units oral capsule 1 capsule = 1,250 mcg, By Mouth, Every week, # 12 capsule, 0 Refills, Maintenance, 03/08/22 2:35:00EST, Capsule, Partial fill upon patient request if the prescription is for a schedule II opioid drug. 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 S/P Elective Coiling of Unruptured Aneurysm with Subsequent Left-Sided Weakness: Acute nonhemorrhagic infarct in the RIGHT posterior frontal lobe: Vital Signs Most recent to oldest [Reference Range]: 1 2 Height 177 cm (03/02/22 10:34 AM) 177 cm (03/02/22 10:11 AM) Weight 72.3 kg (03/02/22 10:34 AM) 72 kg (03/02/22 10:11 AM) Oxygen Saturation [94-100 %] 100 % (03/02/22 10:11 AM) Pulse Rate [55-90 bpm] 77 bpm (03/02/22 10:11 AM) Body Mass Index [18.5-24.99 kg/m2] 23.08 kg/m2 (03/02/22 10:34 AM) 22.98 kg/m2 (03/02/22 10:11 AM) Blood Pressure [90-138/55-84 mm Hg] 90/5 8mm Hg (03/02/22 10:11 AM) Blood pressure sites Arm, left (03/02/22 10:11 AM) Weight Obtained Via Standing scale (03/02/22 10:11 AM) Social History Social History Type Response Smoking Status 10 or more cigarette s (1/2 pack or more)/day in last 30 days; Interested in cessation: No; Patient wants NRT during admission Yes; Tobacco use times per day: 1PPD; Number of years: 53; Total pack years: 53; Started at age: 13; entered on: 03/08/22 Sex Note * Salma Malave: PERFORM, SIGN, VERIFY Event Display: Patient Education/Instruction Authored Date: [facility] *[facility] Clinical Summary Name JOHN SHERMAN Age 66 Years 1955 PCP Luiz SALAS[id number] Date 03/02/2022 10:07:00 Additional Instructions: Scheduled Appointments?? Future Appointments ?No Future Appointments Scheduled Follow-Up Instructions ?? Diagnosis Type 2 diabetes mellitus without complications Medications: Please continue your medications until treatment is completed or stopped by your provider. Discuss any questions related to medications with your provider. Medications to Continue Taking That Have Changed [facility], [address] [place] M[place] [id number], [phone] - Sertraline (sertraline 25 mg oral tablet) 1 tab(s) Oral Daily for 30 Days. Refills: 1. Next Dose: Medications to Continue with No Changes These medications were not printed or sent to your pharmacy Ascorbic Acid (Vitamin C 500 mg oral tablet) 1 tab(s) Oral Daily. Next Dose: Aspirin (Aspirin Low Dose 81 mg oral tablet, chewable) 1 tab(s) Oral Daily. Refills: 12. Next Dose: Atorvastatin (atorvastatin 40 mg oral tablet) 1 tab(s) Oral Daily at Bedtime. Next Dose: Clonazepam (clonazePAM 0.5 mg oral tablet) 1 tab(s) Oral twice a day as needed Anxiety for 30 Days.Refills: 0. Next Dose: Clopidogrel (clopidogrel 75 mg oral tablet) 1 tab(s) Oral Daily for 30 Days. Refills: 5. Next Dose: Cyanocobalamin (cyanocobalamin 1000 mcg oral tablet) 1 tab(s) Oral Daily. Next Dose: Durable Medical Equipment (large pull ups) DX: incontinence N39.46. Refills: 11. Next Dose: Folic Acid (folic acid 1 mg oral tablet) 1 tab(s) Oral Daily. Next Dose: Glimepiride (glimepiride 4 mg oral tablet) 1 tab(s) Oral twice a day. Refills: 5. Next Dose: Lisinopril (Zestril 5 mg oral tablet) 1 tab(s) Oral Daily. Next Dose: Magnesium Oxide (magnesium oxide 400 mg oral tablet) 1 tab(s) Oral Daily. Refills: 5. Next Dose: Metformin (metFORMIN 1000 mg oral tablet) 1 tab(s) Oral twice a day. Refills: 5. Next Dose: Pantoprazole (pantoprazole 40 mg oral delayed release tablet) 1 tab(s) Oral Daily. Refills: 5. Next Dose: Thiamine (Vitamin B1 100 mg oral tablet) 1 tab(s) Oral Daily. Refills: 5. Next Dose: Allergy Info:?? sulfa drugs; gabapentin; penicillin Medications Given This Visit Medication Dose Route influenza virus vaccine, inactivated (influenza virus, inactivated vacc (High Dose)) 0.7 mL Intramuscular Future Orders ?Microalbumin Urine? Order Date:03/02/22?- Complete on or after?03/02/22 Vital Signs Height 177 cm Weight 72.3 kg BMI 23.08 kg/m2 Blood Pressure 90 mm Hg/58 mm Hg Temperature Pulse Rate 77 bpm Respiratory Rate 02 Sat Mode of Delivery 100 %/ You can now view a summary of your hospital visit from the comfort of your home through a free online portal called [employer]. [employer] is a website that allows you to securely view your medical information including discharge summary, medications and follow-up visits. ??You can alsosend a secure electronic message to your doctor???s office to request appointments, renew medications or just ask a question. You can enroll at [email or web address] or register during your next office visit. Disclaimer:?? The information provided is of a general nature and is intended to be used in conjunction with the recommendations and advice of your health care practitioner. ??Every effort has been made to ensure that the information provided is accurate and complete at the time it is provided to you however, as your needs change, or, as new ??information becomes available, different or additional instructions may be required. If you have questions, please consult with your primary care provider or pharmacist, as appropriate. ??This information is not intended to serve as substitution for assessment and evaluation by a qualified health care provider. If you do not have a primary care provider, you may find a [facility] provider by calling [facility] [employer] Link at [phone]. For information about the plan of care including goals and instructions for your diagnosis, please see the patient education orders section of this document. Patient Education Materials?? The content of this educational material or handout may have been modified, supplemented, or adapted from its original content and format to support your individualized medical care. Patient Care team information Care Team Personnel Name: Alicia Negron Position: S RN Member Role: Primary Care Nurse Name: Ewa Everett RN Position: S RN Member Role: Primary [...] Care Nurse Name: Sonya Dee NP Position: [facility] PCO Associate Professional Member Role: PCP Address: Address: [address] [place] [address], [address] [place] [address]- Name: Pola Reid RN Position: [facility] RN Member Role: Primary Care Nurse Name: Betzy Beckford RN Position: [facility] RN Member Role: Primary Care Nurse Name: Karley Perry Position: [facility] RN Member Role: Primary Care Nurse Name: Zully Jara Position: [facility] RN Member Role: Primary Care Nurse Name: Yunior Bui RN Position: [facility] RN Member Role: Primary Care Nurse Name: Candace Liang RN Position: [facility] RN Member Role: Primary Care Nurse Name: Kassi Mars RN Position: [facility] RN Member Role: Primary Care Nurse Name: Dedra Lezama Position: [facility] RN Member Role: Primary Care Nurse Name: Pat Fernando RN Position: [facility] RN Member Role: Primary Care Nurse Name: Randa Sagastume RN Position: [facility] RN Member Role: Primary Care Nurse Name: Liborio Palomares RN Position: [facility] RN Member Role: Primary Care Nurse Name: Yulia Veliz RN Position: [facility] RN Member Role: Primary Care Nurse Name: Chandni Ball RN Position: [facility] RN Member Role: Primary Care Nurse Name: Mitra Patel Position: [facility] RN Member Role: Primary Care Nurse Name: Kacie Campbell RN Position: [facility] RN Member Role: Primary Care Nurse Name: Charito Vazquez RN Position: [facility] ED RN W/OE and Tasks Member Role: Primary Care Nurse Name: Dylan Bond RN Position: [facility] RN Member Role: Primary Care Nurse Name: Phuong Delgado RN Position: [facility] RN Member Role: Primary Care Nurse Name: Elie Davis RN Position: [facility] RN Member Role: Primary Care Nurse Name: Delfina Still RN Position: [facility] RN Member Role: Primary Care Nurse Name: Suzy Mccracken RN Position: [facility] RN Member Role: Primary Care Nurse Name: Rosio Gibbons RN Position: [facility] RN Member Role: Primary Care Nurse Name: Viry Zacarias RN Position: [facility] RN Member Role: Primary Care Nurse Name: Kerri Cunha RN Position: [facility] Hospital Plastic Sheets Supervisor Member Role: Primary Care Nurse Name: Atiya Mcintyre RN Position: [facility] RN Member Role: Primary Care Nurse Care Team Related Persons Name: IBETH BRUNNER Address: home [address] [address] Name: IBETH CORRAL Address: [address] [address]
--- OUTSIDE RECORDS SUMMARY | 2023-04-11 15:18 | XMS_ITS | Continuity of Care Document ---
Author Name Unknown Organization [facility] Address [address] [place] [address]- Care Team Providers Care Agriculture Science Teacher Name Role Phone Luiz SALAS, Sonya Primary Care Physician Encounter [facility] Date(s): 09/22/20 - 10/22/20 [facility] [address] [place] [address]- Attending Physician: AdmJacobo lopez Admitting Physician: Admtr, Jacobo Referring Physician: Admtr, Ar8 Allergies, Adverse Reactions, [...] capsule, 11 Refills, Maintenance,08/19/20 5:59:00 EDT, Capsule, [id number], Partial fill upon patient request if the [...] 2 Refills, Maintenance, 10/07/20 11:44:00 EDT, Tablet, [id number], Partial fill upon patient request if the prescription is fora schedule II opioid drug., 177.8, cm, 08/08/20 11:... Start Date: 10/07/20 Stop Date: 01/05/21 Status: Ordered lisinopril 20 mg oral tablet 20 mg, 1, tablet, By Mouth, Daily, # 90 tablet, Refills 1, Tot. Refills 1, Maintenance, 08/19/20 10:00:00 EDT, Route to Pharmacy Electronically, [id number], Partial fill upon patientrequest if the prescription is for a schedule II op... Start Date: 08/19/20 Stop Date: 02/15/21 Status: Ordered metFORMIN 1000 mg oral tablet 1 tablet = 1,000 mg, By Mouth, 2 times a day, # 60 tablet, 0 Refills, Maintenance, 03/15/20 12:57:00 EST, Tablet, [facility], Partial fill upon patient request, 178, cm, 03/15/20 11:15:00 EST, Height, 105, kg, 03/12/20 6:12:00 EST, Dry W... Start Date: 03/15/20 Status: Ordered ofloxacin 0.3% otic solution See Instructions, 5 drops Right ear once daily x 7 days, # 10 mL, Refills 0, Tot. Refills 0, Maintenance, 03/15/20 14:25:00 EST, Instructions Replace Required Details, Route to Pharmacy Electronically, [facility], Partial fill upon patie... Start Date: 03/15/20 Status: Ordered oxyCODONE 5 mg oral tablet 5 mg, 1, tablet, By Mouth, 5 times a day, TECHNOLOGY PROFESSIONAL checked., # 140 tablet, Refills 0, Tot. Refills 0, Maintenance, 10/04/20 17:46:00 EDT, Route to Pharmacy Electronically, [id number], Partial fill upon patient request if the prescription i... Start Date: 10/04/20 Status: Ordered Probiotic Formula (Bacillus Coagulans) oral capsule 1 capsule, By Mouth, Daily, # 10 capsule, 0 Refills, Maintenance, 04/14/20 11:39:00 EST, Capsule, [id number], Partial fill upon patient request if the prescription is for a schedule II opioid drug., 1 capsule By Mouth Daily, 178, cm,... Start Date: 04/14/20 Status: Ordered simvastatin 40 mg oral tablet 40 mg, 1, tablet, By Mouth, Daily at bedtime, # 30 tablet, Refills 5, Tot. Refills 5, Maintenance, 08/19/20 5:58:00 EDT, Route to Pharmacy Electronically, [facility][id number], Partial fill upon patient request, 177.8, cm, 08/08/20 11:27:00 EDT... Start Date: 08/19/20 Stop Date: 02/15/21 Status: Ordered Problem List Condition Effective Dates Status Health Status Inform ant Benign hypertension(Confirmed) Active CAD (coronary artery disease)(Confirmed) 1 Active Chronic lower back pain(Confirmed) Active Diabetes mellitus(Confirmed) Active Encephalopathy(Confirmed) Active Dyslipidemia(Confirmed) Active 1angioplasty 2000; 3 stents at [facility] Social History Social History Type Response Smoking Status Smoker, current stat us unknown; Type: Cigarettes; Other: 1/2-1 pk; entered on: 05/10/20 Sex
--- OUTSIDE RECORDS SUMMARY | 2023-04-11 15:18 | XMS_ITS | Continuity of Care Document ---
Author Name Unknown Organization [facility] Address [address] [place] [address]- Care Team Providers Care Recordist Chief Name Role Phone Luiz SALAS, Sonya Primary Care Physician Encounter [facility] Date(s): 12/20/20 - 01/19/21 [facility] [address] [place] [address]- Allergies, Adverse Reactions, Alerts Substance Reaction Severity [...] Refills, Maintenance, 01/16/21 10:30:00 EDT, Tablet, [id number], Partial fill upon patient request if the [...] capsule, 11 Refills, Maintenance,01/16/21 10:26:00 EDT, Capsule, [facility][id number], Partial fill upon patient request if the prescription is for a schedule II opioid drug., 178, cm, 0... Start Date: 01/16/21 Stop Date: 01/11/22 Status: Ordered clonazePAM 0.5 mg oral tablet 1 tablet = 0.5 mg, By Mouth, 3 times a day, # 90 tablet, 1 Refills, Maintenance, 01/16/21 10:52:00 EDT, Tablet, [facility] #[id number], [...] 01/16/21 10:29:00 EDT, [facility] 0 Refills, Maintenance, 03/15/20 12:57:00 EST, Tablet, [facility], Partial fill upon patient request, 178, cm, 03/15/20 11:15:00 EST, Height, 105, kg, 03/12/20 6:12:00 EST, Dry W... Start Date: 03/15/20 Status: Ordered oxyCODONE 5 mg oral tablet 5 mg, 1, tablet, By Mouth, 5 times a day, DOG OR HORSE RACING OFFICIAL checked., # 140 tablet, Refills 0, Tot. Refills 0, Maintenance, 01/16/21 10:52:00 EDT, [facility] [...] 12/28/20 12:50:00 EDT, Route to Pharmacy Electronically, [facility], Partial fill upon patient request [...] 11/07/20 Active 1angioplasty 2000; 3 stents at [facility] 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 [...]
--- OUTSIDE RECORDS SUMMARY | 2023-04-11 15:18 | XMS_ITS | Continuity of Care Document ---
Author Name Unknown Organization [facility] Adult Address [address] [place] [address]- Care Team Providers Care Barrel Brander Name Role Phone Luiz SALAS, Sonya Primary Care Physician [facility] Date[facility]s): 01/24/21 - 02/23/21 [facility] [address] [place] [address]- Allergies, Adverse Reactions, Alerts Substance Reaction Severity [...] 5 Refills, Maintenance, 01/16/21 10:30:00 EDT, Tablet, [facility]/pharmacy #[id number], Partial fill upon patient request if the prescription is for a schedule II opioid drug., 178, cm, 12/29/20 5:31:00 EDT, Height, 1... Start Date: 01/16/21 Stop Date: 07/15/21 Status: Ordered aspirin 81 mg oral tablet, chewable 81 mg, 1, tablet, By Mouth, Daily, # 30 tablet, Refills 5, Tot. Refills 5, Maintenance, 01/16/21 10:30:00 EDT, Route to Pharmacy Electronically, [facility]/pharmacy #[id number], Partial fill upon patient request [...] Refills, Maintenance,01/16/21 10:26:00 EDT, Capsule, [facility]/pharmacy #[id number], Partial fill upon patient request if the prescription is for a schedule II opioid drug., 178, cm, 0... Start Date: 01/16/21 Stop Date: 01/11/22 Status: Ordered clonazePAM 0.5 mg oral tablet 1 tablet = 0.5 mg, By Mouth, 3 times a day, # 90 tablet, 1 Refills, Maintenance, 01/16/21 10:52:00 EDT, Tablet, [facility]/pharmacy #[id number], Partial fill upon patient request [...] EDT, Route to Pharmacy Electronically, [facility]/pharmacy #[id number], Partial fill upon patient request [...] 0 Refills, Maintenance, 03/15/20 12:57:00 EST, Tablet, [facility], Partial fill upon patient request, 178, cm, 03/15/20 11:15:00 EST, Height, 105, kg, 03/12/20 6:12:00 EST, Dry W... Start Date: 03/15/20 Status: Ordered MiraLax oral powder for reconstitution = 17 Gm, By Mouth, Daily, for 14 days, dissolve in water before taking, # 238 Gm, 0 Refills, Acute 02/27/21 13:29:00 EST, 02/13/21 13:29:00 EDT, REC Powder, [facility]/pharmacy #[id number], Partial fill upon patient request if the prescription is for a schedule II... Start Date: 02/13/21 Stop Date: 02/27/21 Status: Ordered oxyCODONE 5 mg oral tablet 5 mg, 1, tablet, By Mouth, 5 times a day, AUDIO TAPE LIBRARIAN checked., # 140 tablet, Refills 0, Tot. 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
--- OUTSIDE RECORDS SUMMARY | 2023-04-11 15:18 | XMS_ITS | Continuity of Care Document ---
Author Name Unknown Organization [facility] Adult Address [address] [place] [address]- Care Team Providers Care Auto Claim Representative Name Role Phone Luiz DIE TURNER, Sonya Primary Care Physician [facility] Date[facility]s): 12/18/22 - 01/17/23 [facility] Adult [address] [place] [id number]- Referring Physician: Delfina Echevarria Allergies, Adverse Reactions, Alerts Substance Reaction Severity [...] pneumococcal 23-valent vaccine 02/04/13 Recorded 1Result Comment: [facility]: [id number] Medications acetaminophen 325 mg oral tablet 650 [...] Confirmed Active 1angioplasty 2000; 3 stents at [facility] 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 [...] Team Personnel Name: Adelia Landry RN Position: [facility] RN Member Role: Primary Care Nurse Name: Alicia Negron Position: S RN Member Role: Primary Care Nurse Name: Jason Pereira RN Position: S RN Member Role: Primary Care Nurse Name: Hanna Dailey Position: [facility] RN Member Role: Primary Care Nurse Name: Nereida Dobbins RN Position: [facility] RN Member Role: Primary Care Nurse Name: Gela Orosco RN Position: [facility] RN Member Role: Primary Care Nurse Name: Jessica Castrejon RN Position: [facility] RN Member Role: Primary Care Nurse Name: Hien Hidalgo RN Position: [facility] RN Member Role: Primary Care Nurse Name: Phuong Balderas RN Position: [facility] SN RN Member Role: Primary Care Nurse Name: Evelyn Mcnulty RN Position: [facility] RN Member Role: Primary Care Nurse Name: Yanely Shanks RN Position: [facility] RN Member Role: Primary Care Nurse Name: Sonya Dee NP Position: [facility] PCO Associate Professional Member Role: PCP Address: Address: [address] [place] [address], [address] Name: Siddhartha Andino RN Position: [facility] RN Member Role: Primary Care Nurse Name: Pola Reid RN Position: [facility] RN Supv Member Role: Primary Care Nurse Name: Betzy Beckford RN Position: [facility] RN Member Role: Primary Care Nurse Name: Susie Galicia RN Position: [facility] RN Member Role: Primary Care Nurse Name: Ezra Acuna RN Position: [facility] RN Member Role: Primary Care Nurse Name: Zully Jara Position: [facility] RN Member Role: Primary Care Nurse Name: Yunior Bui RN Position: [facility] RN Member Role: Primary Care Nurse Name: Candace Liang RN Position: [facility] RN Member Role: Primary Care Nurse Name: Marci Padilla RN Position: [facility] RN Member Role: Primary Care Nurse Name: Dedra Lezama Position: [facility] RN Member Role: Primary Care Nurse Name: Pat Fernando RN Position: [facility] RN Member Role: Primary Care Nurse Name: Marquita Siddiqui RN Position: [facility] RN Member Role: Primary Care Nurse Name: Lazara Krueger RN Position: [facility] RN Member Role: Primary Care Nurse Name: Randa Sagastume RN Position: [facility] RN Member Role: Primary Care Nurse Name: Mitra Patel Position: [facility] RN Member Role: Primary Care Nurse Name: Kacie Campbell RN Position: [facility] RN Member Role: Primary Care Nurse Name: Charito Vazquez RN Position: [facility] ED RN W/OE and Tasks Member Role: Primary Care Nurse Name: Dylan Bond RN Position: [facility] RN Member Role: Primary Care Nurse Name: Lydia Doherty RN Position: [facility] RN Member Role: Primary Care Nurse Name: Elie Davis RN Position: [facility] RN Member Role: Primary Care Nurse Name: Delfina Still RN Position: [facility] RN Member Role: Primary Care Nurse Name: Mary Wagner RN Position: [facility] RN Member Role: Primary Care Nurse Name: Chandni Gibbons RN Position: [facility] SN RN Member Role: Primary Care Nurse Name: Reanna Chow RN Position: [facility] RN Member Role: Primary Care Nurse Name: Brayden Elizabeth RN Position: [facility] RN Member Role: Primary Care Nurse Name: Viry Zacarias RN Position: [facility] RN Member Role: Primary Care Nurse Name: Kerri Cunha RN Position: [facility] Police Justice Member Role: Primary Care Nurse Name: Atiya Mcintyre RN Position: [facility] RN Member Role: Primary Care Nurse Care Team Related Persons Name: IBETH CORRAL Address: home [address] [place] [address] [address] [place] [address]
--- OUTSIDE RECORDS SUMMARY | 2023-04-11 15:19 | XMS_ITS | Continuity of Care Document ---
Author Name Unknown Organization [facility] Address [address] [place] [address]- Care Team Providers Care Tightening Machine Operator Name Role Phone Luiz SALAS, Sonya Primary Care Physician [phone] [facility]counter [facility] Date[facility]s): 11/29/21 - 12/29/21 [facility] [address] [place] [address]- Allergies, Adverse Reactions, Alerts Substance Reaction Severity [...] EDT, Supply Start Date: 09/08/21 Status: Ordered duloxetine 20 mg oral enteric coated capsule 1 capsule = 20 mg, By Mouth, Daily, 0 Refills, Maintenance, 11/20/21 13:14:00 EDT, Partial fill upon patient request if the prescription is for a schedule II opioid drug. Start Date: 11/20/21 Status: Ordered glimepiride 4 mg oral tablet 1 tablet = 4 mg, By Mouth, 2 times a day, 0 Refills, Maintenance, 12/28/21 16:55:00 EDT, Partial fill upon patient request if the prescription is for a schedule II opioid drug. Start Date: 12/28/21 Status: Ordered magnesium oxide 400 mg oral [...] 05/02/21 10:38:00 EST, Route to Pharmacy Electronically, 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
--- OUTSIDE RECORDS SUMMARY | 2023-04-11 15:19 | XMS_ITS | Continuity of Care Document ---
Author Name Unknown Organization [facility] Address [address] [place] [address]- Care Team Providers Care Membership Sales Representative Name Role Phone Luiz BAFFLE INSTALLER, Sonya Primary Care Physician [phone] [facility]counter [facility] Date(s): 08/15/22 - 09/14/22 [facility] [address] [place] [address]- Allergies, Adverse Reactions, Alerts Substance Reaction Severity [...] 05/26/20 Not Given Patient Refuses 1Result Comment: [facility] [place]: [id number] Medications Aspirin Low Dose 81 mg oral [...] Maintenance, 07/31/22 13:23:00 EDT, [facility], 178, cm, 07/23/22 11:32:00 EDT, [...] Route to Pharmacy Electronically, [facility], 178, cm, 07/23/22 11:32:00 EDT, [...] 0 Refills, Maintenance, 08/01/22 11:17:00 EDT, [facility], 178, cm, 07/23/22 11:32:00 EDT, Height, 72.5, [...] 13:25:00 EDT, Route to Pharmacy Electronically, [facility], 178, cm, 07/23/22 11:32:00 EDT, Height, 72.5, [...] 1 Refills, Maintenance, 07/31/22 13:25:00 EDT, [facility], 178, cm, 07/23/22 11:32:00 EDT, Height, 72.5, kg, 03/08/22 4:29:00 EST, Dry Weight Start Date: 07/31/22 Status: Ordered nicotine 21 mg/24 hr transdermal film, extended release 1 patch, Topically, Daily, # 30 patch, 0 Refills, Maintenance, 03/14/22 14:53:00 EST, Patch, [facility], Partial fill [...] Confirmed Active 1angioplasty 2000; 3 stents at [facility] 2R frontal stroke secondary [...] Primary Care Nurse Name: Hanna Dailey Position: [facility] RN Member Role: Primary Care Nurse Name: Gela Orosco RN Position: S RN Member Role: Primary Care Nurse Name: Jessica Castrejon RN Position: S RN Member Role: Primary Care Nurse Name: Hien Hidalgo RN Position: [facility] RN Member Role: Primary Care Nurse Name: Phuong Balderas RN Position: [facility] SN RN Member Role: Primary Care Nurse Name: Evelyn Mcnulty RN Position: S RN Member Role: Primary Care Nurse Name: Sonya Dee NP Position: [facility] PCO Associate Professional Member Role: PCP Address: Address: [address] [facility] [facility], 3rd Floor [facility] [place] [address]- Name: Pola Reid RN Position: [facility] RN Supv Member Role: Primary Care Nurse Name: Betzy Beckford RN Position: [facility] RN Member Role: Primary Care Nurse Name: Zully Jara Position: [facility] RN Member Role: Primary Care Nurse Name: Yunior Bui RN Position: [facility] RN Member Role: Primary Care Nurse Name: Candace Liang RN Position: [facility] RN Member Role: Primary Care Nurse Name: Dedra Lezama Position: [facility] RN Member Role: Primary Care Nurse Name: Pat Fernando RN Position: [facility] RN Member Role: Primary Care Nurse Name: Randa Sagastume RN Position: [facility] RN Member Role: Primary Care Nurse Name: Mitra Patel Position: [facility] RN Member Role: Primary Care Nurse Name: Kacie Campbell RN Position: [facility] RN Member Role: Primary Care Nurse Name: Charito Vazquez RN Position: [facility] ED RN W/OE and Tasks Member Role: Primary Care Nurse Name: Dylan Bond RN Position: [facility] RN Member Role: Primary Care Nurse Name: Lydia Doherty RN Position: [facility] RN Member Role: Primary Care Nurse Name: Elie Davis RN Position: [facility] RN Member Role: Primary Care Nurse Name: Delfina Still RN Position: [facility] RN Member Role: Primary Care Nurse Name: Chandni Gibbons RN Position: [facility] RN Member Role: Primary Care Nurse Name: Viry Zacarias RN Position: [facility] RN Member Role: Primary Care Nurse Name: Kerri Cunha RN Position: [facility] Hospital Biological Science Technician Fish Member Role: Primary Care Nurse Name: Atiya Mcintyre RN Position: [facility] RN Member Role: Primary Care Nurse Care Team Related Persons Name: SANJAY BRUNNERN Address: home [address] [place] [address] Name: SANJAY CORRALN Address: home [address] [facility] [address] [place] [address]
--- OUTSIDE RECORDS SUMMARY | 2023-04-11 15:19 | XMS_ITS | Continuity of Care Document ---
Author Name Unknown Organization [facility] Address [address] [place] [address]- Care Team Providers Care Patternmaker Wood Name Role Phone Luiz SALAS, Sonya Primary Care Physician [facility] Date[facility]s): 11/29/21 - 12/29/21 [facility] [address] [place] [address]- Attending Physician: AdmJacobo lopez Admitting Physician: Admtr, [id number] Referring Physician: Admtr, [id number] Allergies, Adverse Reactions, [...] 05/02/21 10:38:00 EST, Route to Pharmacy Electronically, [facility]/pharmacy #[id number], Partial fill upon patient request [...] Underweight(Confirmed) Active 1angioplasty 2000; 3 stents at [facility] 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
--- OUTSIDE RECORDS SUMMARY | 2023-04-11 15:19 | XMS_ITS | Continuity of Care Document ---
Author Name Unknown Organization [facility] Address [address] [facility], [address], [address] [place] [address]- Care Team Providers Care Pricing Intern Name Role Phone Luiz SALAS, Sonya Primary Care Physician Encounter [facility] Date(s): 12/13/22 - 02/16/23 [facility] [address], [address], [address] [place] [id number] Attending Physician: Christian Pat MD Admitting Physician: Christian Pat MD Allergies, Adverse Reactions, Alerts Substance Reaction Severity Status penicillin 1 Active gabapentin Swelling Moderate Active sulfa drugs Active Onions Active Other Food Allergy 2 N&V - [...] pneumococcal 23-valent vaccine 02/04/13 Recorded 1Result Comment: [facility] [place]: [id number] Medications acetaminophen 325 mg oral tablet 650 [...] Confirmed Active 1angioplasty 2000; 3 stents at [facility] 2R frontal stroke secondary to [...] Team Personnel Name: Adelia Landry RN Position: [facility] RN Member Role: Primary Care Nurse Name: Alicia Negron Position: S RN Member Role: Primary Care Nurse Name: Jason Pereira RN Position: [facility] RN Member Role: Primary Care Nurse Name: Hanna Dailey Position: [facility] RN Member Role: Primary Care Nurse Name: Nereida Dobbins RN Position: [facility] RN Member Role: Primary Care Nurse Name: Geal Orosco RN Position: [facility] RN Member Role: Primary Care Nurse Name: Jessica Castrejon RN Position: [facility] RN Member Role: Primary Care Nurse Name: Hien Hidalgo RN Position: [facility] RN Member Role: Primary Care Nurse Name: Phuong Balderas RN Position: [facility] SN RN Member Role: Primary Care Nurse Name: Evelyn Mcnulty RN Position: [facility] RN Member Role: Primary Care Nurse Name: Yanely Shanks RN Position: [facility] RN Member Role: Primary Care Nurse Name: Sonya Dee NP Position: [facility] PCO Associate Professional Member Role: PCP Address: Address: [address] [place] [address], 3rd [address] [place], [place] [address] Name: Siddhartha Andino RN Position: [facility] RN Member Role: Primary Care Nurse Name: Pola Reid RN Position: [facility] RN Supv Member Role: Primary Care Nurse Name: Betzy Beckford RN Position: [facility] RN Member Role: Primary Care Nurse Name: Susie Galicia RN Position: [facility] RN Member Role: Primary Care Nurse Name: Ezra Acuna RN Position: [facility] RN Member Role: Primary Care Nurse Name: Zully Jara Position: [facility] RN Member Role: Primary Care Nurse Name: Yunior Bui RN Position: [facility] RN Member Role: Primary Care Nurse Name: Candace Liang RN Position: [facility] RN Member Role: Primary Care Nurse Name: Marci Padilla RN Position: [facility] RN Member Role: Primary Care Nurse Name: Dedra Lezama Position: [facility] RN Member Role: Primary Care Nurse Name: Pat Fernando RN Position: [facility] RN Member Role: Primary Care Nurse Name: Marquita Siddiqui RN Position: [facility] RN Member Role: Primary Care Nurse Name: Lazara Krueger RN Position: [facility] RN Member Role: Primary Care Nurse Name: Randa Sagastume RN Position: [facility] RN Member Role: Primary Care Nurse Name: Mitra Patel Position: [facility] RN Member Role: Primary Care Nurse Name: Kacie Campbell NP Position: [facility] PCO Associate Professional Member Role: Primary Care Nurse Address: Address: [address] [place] [address] [facility] [place] [address]- Name: Charito Vazquez RN Position: [facility] ED RN W/OE and Tasks Member Role: Primary Care Nurse Name: Dylan Bond RN Position: [facility] RN Member Role: Primary Care Nurse Name: Lydia Doherty RN Position: [facility] RN Member Role: Primary Care Nurse Name: Elie Davis RN Position: [facility] RN Member Role: Primary Care Nurse Name: Delfina Still RN Position: [facility] RN Member Role: Primary Care Nurse Name: Mary Wagner RN Position: [facility] RN Member Role: Primary Care Nurse Name: Chandni Gibbons RN Position: [facility] RN Member Role: Primary Care Nurse Name: Reanna Chow RN Position: [facility] RN Member Role: Primary Care Nurse Name: Brayden Elizabeth RN Position: [facility] RN Member Role: Primary Care Nurse Name: Viry Zacarias RN Position: [facility] RN Member Role: Primary Care Nurse Name: Kerri Cunha RN Position: [facility] Termite Inspector Member Role: Primary Care Nurse Name: Atiya Mcintyre RN Position: [facility] RN Member Role: Primary Care Nurse Care Team Related Persons Name: IBETH CORRAL Address: home [address] [facility] [address] [facility] [address] [place] [address]
--- OUTSIDE RECORDS SUMMARY | 2023-04-11 15:19 | XMS_ITS | Continuity of Care Document ---
Author Name Unknown Organization [facility] Adult Address [address] [place] [address]- Care Team Providers Care Service Assistant Name Role Phone Luiz COMPUTER TECHNICAL SUPPORT SPECIALIST, Sonya Primary Care Physician [phone] [facility]counter [facility] Date[facility]s): 02/07/22 - 03/09/[address] [facility] Adult [address] [place] [id number]- Allergies, Adverse Reactions, Alerts Substance Reaction Severity [...] 05/26/20 Not Given Patient Refuses 1Result Comment: [facility]: [id number] Medications Aspirin Low Dose 81 mg oral [...] 5 Refills, Maintenance, 01/17/22 14:43:00 [facility]T, [facility], [facility], 01/17/22 7:37:00 EDT, Height, [...] 5 Refills, Maintenance, 01/17/22 14:43:00 EDT, [facility], 177, cm, 01/17/22 7:37:00 EDT, Height, 75, kg, 01/11/22 12:33:00 EDT, Dry Weight Start Date: 01/17/22 Status: Ordered metFORMIN 1000 mg oral tablet 1 tablet, By Mouth, 2 times a day, # 56 tablet, 5 Refills, Maintenance, 01/17/22 14:43:00 EDT, [facility], 177, cm, 01/17/22 7:37:00 EDT, Height, [...] Confirmed Active 1angioplasty 2000; 3 stents at [facility] 2R frontal stroke secondary to [...] Care Nurse Name: Gela Orosco RN Position: [facility] RN Member Role: Primary Care Nurse Name: Jessica Castrejon RN Position: S RN Member Role: Primary Care Nurse Name: Hien Hidalgo RN Position: [facility] RN Member Role: Primary Care Nurse Name: Evelyn Mcnulty RN Position: [facility] RN Member Role: Primary Care Nurse Name: Sonya Dee NP Position: [facility] PCO Associate Professional Member Role: PCP Address: Address: [address] [place] [address], [address] Name: Pola Reid RN Position: S RN Member Role: Primary Care Nurse Name: Betzy Beckford RN Position: S RN Member Role: Primary Care Nurse Name: Karley Perry Position: S RN Member Role: Primary Care Nurse Name: Zully Jara Position: S RN Member Role: Primary Care Nurse Name: Yunior Bui RN Position: S RN Member Role: Primary Care Nurse Name: Candace Liang RN Position: S RN Member Role: Primary Care Nurse Name: Kassi Mars RN Position: S RN Member Role: Primary Care Nurse Name: Dedra Lezama Position: S RN Member Role: Primary Care Nurse Name: Pat Fernando RN Position: [facility] RN Member Role: Primary Care Nurse Name: Randa Sagastume RN Position: [facility] RN Member Role: Primary Care Nurse Name: Liborio Palomares RN Position: [facility] RN Member Role: Primary Care Nurse Name: Yulia Veliz RN Position: [facility] RN Member Role: Primary Care Nurse Name: Chandni Ball RN Position: [facility] RN Member Role: Primary Care Nurse Name: Mitra Patel Position: [facility] RN Member Role: Primary Care Nurse Name: Kacie Campbell RN Position: [facility] RN Member Role: Primary Care Nurse Name: Charito Vazquez RN Position: [facility] ED RN W/OE and Tasks Member Role: Primary Care Nurse Name: Dylan Bond RN Position: [facility] RN Member Role: Primary Care Nurse Name: Phuong Delgado RN Position: [facility] RN Member Role: Primary Care Nurse Name: Elie Davis RN Position: [facility] RN Member Role: Primary Care Nurse Name: Delfina Still RN Position: [facility] RN Member Role: Primary Care Nurse Name: Suzy Mccracken RN Position: [facility] RN Member Role: Primary Care Nurse Name: Rosio Gibbons RN Position: [facility] RN Member Role: Primary Care Nurse Name: Viry Zacarias RN Position: [facility] RN Member Role: Primary Care Nurse Name: Kerri Cunha RN Position: [facility] Hospital Wool Cleaner Member Role: Primary Care Nurse Name: Atiya Mcintyre RN Position: [facility] RN Member Role: Primary Care Nurse Care Team Related Persons Name: IBETH BRUNNER Address: [address] [place], [place] Name: IBETH CORRAL Address: home [address] [place], [place]
--- OUTSIDE RECORDS SUMMARY | 2023-04-11 15:19 | XMS_ITS | Continuity of Care Document ---
Author Name Unknown Organization [facility] Adult Address [address] [place] [address]- Care Team Providers Care Hog Handler Name Role Phone Luiz SALAS, Sonya Primary Care Physician [phone] [facility]counter [facility] Date[facility]s): 12/12/22 - 01/11/23 [facility] Adult [address] [place] [address]- Allergies, Adverse Reactions, Alerts Substance Reaction Severity [...] 23-valent vaccine 02/04/13 Recorded 1Result Comment: [facility]: [id number] Medications acetaminophen 325 mg oral tablet 650 [...] Confirmed Active 1angioplasty 2000; 3 stents at [facility] 2R frontal stroke secondary to [...] Care Nurse Name: Gela Orosco RN Position: [facility] RN Member Role: Primary Care Nurse Name: Jessica Castrejon RN Position: [facility] RN Member Role: Primary Care Nurse Name: Hine Hidalgo RN Position: [facility] RN Member Role: Primary Care Nurse Name: Phuong Balderas RN Position: [facility] RN Member Role: Primary Care Nurse Name: Evelyn Mcnulty RN Position: [facility] RN Member Role: Primary Care Nurse Name: Yanely Shanks RN Position: [facility] RN Member Role: Primary Care Nurse Name: Sonya Dee NP Position: [facility] PCO Associate Professional Member Role: PCP Address: Address: [address] [place] [address], [address] [place] [address] Name: Siddhartha Andino RN Position: [facility] RN Member Role: Primary Care Nurse Name: Pola Reid RN Position: [facility] RN Supv Member Role: Primary Care Nurse Name: Betzy Beckford RN Position: [facility] RN Member Role: Primary Care Nurse Name: Susie Galicia RN Position: [facility] RN Member Role: Primary Care Nurse Name: Ezra Acuna RN Position: [facility] RN Member Role: Primary Care Nurse Name: Zully Jara Position: [facility] RN Member Role: Primary Care Nurse Name: Yunior Bui RN Position: [facility] RN Member Role: Primary Care Nurse Name: Candace Liang RN Position: [facility] RN Member Role: Primary Care Nurse Name: Marci Padilla RN Position: [facility] RN Member Role: Primary Care Nurse Name: Dedra Lezama Position: [facility] RN Member Role: Primary Care Nurse Name: Pat Fernando RN Position: [facility] RN Member Role: Primary Care Nurse Name: Marquita Siddiqui RN Position: [facility] RN Member Role: Primary Care Nurse Name: Lazara Krueger RN Position: [facility] RN Member Role: Primary Care Nurse Name: Randa Sagastume RN Position: [facility] RN Member Role: Primary Care Nurse Name: Mitra Patel Position: [facility] RN Member Role: Primary Care Nurse Name: Kacie Campbell RN Position: [facility] RN Member Role: Primary Care Nurse Name: Charito Vazquez RN Position: [facility] ED RN W/OE and Tasks Member Role: Primary Care Nurse Name: Dylan Bond RN Position: [facility] RN Member Role: Primary Care Nurse Name: Lydia Doherty RN Position: [facility] RN Member Role: Primary Care Nurse Name: Elie Davis RN Position: [facility] RN Member Role: Primary Care Nurse Name: Delfina Still RN Position: [facility] RN Member Role: Primary Care Nurse Name: Mary Wagner RN Position: [facility] RN Member Role: Primary Care Nurse Name: Chandni Gibbons RN Position: [facility] SN RN Member Role: Primary Care Nurse Name: Reanna Chow RN Position: [facility] RN Member Role: Primary Care Nurse Name: Brayden Elizabeth RN Position: [facility] RN Member Role: Primary Care Nurse Name: Viry Zacarias RN Position: [facility] RN Member Role: Primary Care Nurse Name: Kerri Cunha RN Position: [facility] Hospital Banking And Finance Instructor Member Role: Primary Care Nurse Name: Atiya Mcintyre RN Position: [facility] RN Member Role: Primary Care Nurse Care Team Related Persons Name: FRANCISGENEVIEVE IBETH Address: [address] [place] [address]
--- OUTSIDE RECORDS SUMMARY | 2023-04-11 15:19 | XMS_ITS | Continuity of Care Document ---
Author Name Unknown Organization [facility] Adult Address [address] [place] [address]- Care Team Providers Care Shorthand Teacher Name Role Phone Luiz SALAS, Sonya Primary Care Physician [phone] Encounter [facility] Date(s): 07/25/21 - 08/24/21 [facility] Adult [address] [place] [phone]- Allergies, Adverse Reactions, Alerts Substance Reaction Severity [...] 11 Refills, Maintenance,05/02/21 10:36:00 EST, Capsule, [facility]/pharmacy #[id number], Partial fill upon patient request if the prescription is for a schedule II opioid drug., 178, cm, 0... Start Date: 05/02/21 Stop Date: 04/27/22 Status: Ordered clonazePAM 0.5 mg oral tablet 1 tablet = 0.5 mg, By Mouth, 3 times a day, # 90 tablet, 1 Refills, Maintenance, 07/25/21 17:16:00 EDT, Tablet, [facility]/pharmacy #[id number], Partial fill upon patient request if the prescription is for a schedule II opioid drug., 178, cm, 07/24/21 16:10:00 EDT... Start Date: 07/25/21 Stop Date: 09/23/21 Status: Ordered clopidogrel 75 mg oral tablet 1, tablet, By Mouth, Daily, # 90 tablet, Refills 1, Route to Pharmacy Electronically, [id number], 178, cm, 05/11/21 8:52:00 EST, Height, 81, kg, 05/06/21 2:22:00 EST, Dry Weight Start Date: 05/30/21 Status: Ordered glimepiride 4 mg oral tablet 1 tablet, By Mouth, 2 times a day, # 60 tablet, 5 Refills, Maintenance, 05/02/21 10:36:00 EST, [facility]/pharmacy #[id number], 178, cm, 04/27/21 4:54:00 EST, [...] 10:39:00 EDT, 05/02/21 10:39:00 EST, Tablet, [facility]/pharmacy #[id number], Partial fill upon patient request if the prescription is for a schedule II opioid drug., 178, cm,... Start Date: 05/02/21 Stop Date: 10/29/21 Status: Ordered metFORMIN 1000 mg oral tablet 1 tablet = 1,000 mg, By Mouth, 2 times a day, # 60 tablet, 5 Refills, Maintenance, 05/02/21 10:36:00 EST, Tablet, [facility]/pharmacy #[id number], Partial fill upon patient request, 178, cm, 04/27/21 4:54:00 EST,Height, 84.3, kg, 04/23/21 2:54:00 EST, Dry Weight Start Date: 05/02/21 Status: Ordered oxyCODONE 5 mg oral tablet 5 mg, 1, tablet, By Mouth, 5 times a day, HEDIS REVIEW NURSE checked., # 140 tablet, Refills 0, Tot. Refills 0, Maintenance, 07/25/21 17:17:00 EDT, Route to Pharmacy Electronically, [facility]/pharmacy #[id number], Partial fillupon patient request if [...] 10:38:00 EST, Route to Pharmacy Electronically, [facility]/pharmacy #[id number], Partial fill upon patient request [...]
--- OUTSIDE RECORDS SUMMARY | 2023-04-11 15:19 | XMS_ITS | Continuity of Care Document ---
Author Name Unknown Organization [facility] Adult Address [address] [place] [address]- Care Team Providers Care Credit Collection Associate Name Role Phone Luiz SALAS, Sonya Primary Care Physician [phone] [facility]counter [facility] Date[facility]s): 02/08/21 - 03/10/21 [facility] Adult [address] [place] [address]- Allergies, Adverse Reactions, Alerts Substance Reaction Severity [...] 5 Refills, Maintenance, 01/16/21 10:30:00 EDT, Tablet, [facility]/pharmacy #[id number], Partial fill upon patient request if the prescription is for a schedule II opioid drug., 178, cm, 12/29/20 5:31:00 EDT, Height, 1... Start Date: 01/16/21 Stop Date: 07/15/21 Status: Ordered aspirin 81 mg oral tablet, chewable 81 mg, 1, tablet, By Mouth, Daily, # 30 tablet, Refills 5, Tot. Refills 5, Maintenance, 01/16/21 10:30:00 EDT, Route to Pharmacy Electronically, [facility]/pharmacy #[id number], Partial fill upon patient request if [...] capsule, 11 Refills, Maintenance,01/16/21 10:26:00 EDT, Capsule, [facility]/pharmacy #[id number], Partial fill upon patient request if the prescription is for a schedule II opioid drug., 178, cm, 0... Start Date: 01/16/21 Stop Date: 01/11/22 Status: Ordered clonazePAM 0.5 mg oral tablet 1 tablet = 0.5 mg, By Mouth, 3 times a day, # 90 tablet, 1 Refills, Maintenance, 01/16/21 10:52:00 EDT, Tablet, [facility]/pharmacy #[id number], Partial fill upon patient request if the prescription is for a schedule II opioid drug., 178, cm, 12/29/20 5:31:00 EDT,... Start Date: 01/16/21 Stop Date: 03/17/21 Status: Ordered glimepiride 4 mg oral tablet 1 tablet, By Mouth, 2 times a day, # 60 tablet, 2 Refills, Maintenance, 01/16/21 10:26:00 EDT, [facility]/pharmacy #[id number], 178, cm, 12/29/20 5:31:00 EDT, Height, 100, kg, 12/26/20 16:53:00 EDT, Dry Weight Start Date: 01/16/21 Status: Ordered lactulose 10 gm/15 ml oral syrup 15 mL, By Mouth, Daily, PRN NEEDED FOR CONSTIPATION, # 473 mL, 0 Refills, [id number], 30, TAKE 15 ML BY MOUTH DAILY NEEDED FOR CONSTIPATION, 178, cm, 02/03/21 12:52:00 EDT, Height, 100, kg, 12/26/20 16:53:00 EDT, Dry Weight Start Date: 03/01/21 Status: Ordered lisinopril 10 mg oral tablet 10 mg, 1, tablet, By Mouth, Daily, # 30 tablet, Refills 5, Tot. Refills 5, Maintenance, 01/16/21 10:29:00 EDT, Route to Pharmacy Electronically, [facility]/pharmacy #[id number], Partial fill upon patient request if [...] 0 Refills, Maintenance, 03/15/20 12:57:00 EST, Tablet, [facility], Partial fill upon patient request, 178, cm, 03/15/20 11:15:00 EST, Height, 105, kg, 03/12/20 6:12:00 EST, Dry W... Start Date: 03/15/20 Status: Ordered oxyCODONE 5 mg oral tablet 5 mg, 1, tablet, By Mouth, 5 times a day, CLERICAL AIDE checked., # 140 tablet, Refills 0, Tot. Refills 0, Maintenance, 02/24/21 15:51:00 EDT, Route to Pharmacy Electronically, [facility]/pharmacy #[id number], Partial fillupon patient request if the [...] 12/28/20 12:50:00 EDT, Route to Pharmacy Electronically, [facility], Partial fill upon patient [...] 11/07/20 Active 1angioplasty 2000; [facility] st[facility] [...]
--- OUTSIDE RECORDS SUMMARY | 2023-04-11 15:19 | XMS_ITS | Continuity of Care Document ---
Author Name Unknown Organization [facility] Address Unknown Care Team Providers Care Credit Collection Specialist Name Role Phone Luiz SALAS, Sonya Primary Care Physician Encounter [facility] Date(s): 01/16/21 - 02/15/21 [facility] Allergies, Adverse Reactions, Alerts Substance Reaction Severity [...] 5 Refills, Maintenance, 01/16/21 10:30:00 EDT, Tablet, [facility]/pharmacy #[id number], Partial fill upon patient request if [...] capsule, 11 Refills, Maintenance,01/16/21 10:26:00 EDT, Capsule, [facility]/pharmacy #[id number], Partial fill upon patient request if [...] 01/16/21 10:29:00 EDT, Route to Pharmacy Electronically, [facility]/pharmacy #[id number], Partial fill upon patient request if [...] 0 Refills, Maintenance, 03/15/20 12:57:00 EST, Tablet, [facility], Partial fill upon patient request, 178, cm, 03/15/20 11:15:00 EST, Height, 105, kg, 03/12/20 6:12:00 EST, Dry W... Start Date: 03/15/20 Status: Ordered MiraLax oral powder for reconstitution = 17 Gm, By Mouth, Daily, for 14 days, dissolve in water before taking, # 238 Gm, 0 Refills, Acute 02/27/21 13:29:00 EST, 02/13/21 13:29:00 EDT, REC Powder, [facility]/pharmacy #[id number], Partial fill upon patient request if the prescription is for a schedule II... Start Date: 02/13/21 Stop Date: 02/27/21 Status: Ordered oxyCODONE 5 mg oral tablet 5 mg, 1, tablet, By Mouth, 5 times a day, MATERIAL CONTROL SUPERVISOR checked., # 140 tablet, Refills 0, Tot. Refills 0, Maintenance, 01/16/21 10:52:00 EDT, Route to Pharmacy Electronically, [facility]/pharmacy #[id number], Partial fillupon patient request if the [...] 12/28/20 12:50:00 EDT, Route to Pharmacy Electronically, [facility], Partial fill upon patient [...] 11/07/20 Active 1angioplasty 2000; 3 stents at [facility] 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 [...]
--- OUTSIDE RECORDS SUMMARY | 2023-04-11 15:19 | XMS_ITS | Continuity of Care Document ---
Author Name Unknown Organization [facility] Adult Address [address] [place] [address]- Care Team Providers Care Fashion Design Professor Name Role Phone Luiz PRODUCE CLERK, Sonya Primary Care Physician [facility] Date(s): 04/25/22 - 05/25/[address] [facility] Adult [address] [place] [phone]- Allergies, Adverse Reactions, Alerts Substance Reaction Severity [...] 05/26/20 Not Given Patient Refuses 1Result Comment: [facility]: [id number] Medications Aspirin Low Dose 81 mg oral [...] 0 Refills, Maintenance, 05/10/22 9:49:00 EST, [facility], cm, 03/14/22 15:25:00 EST, Height, 72.5, [...] 14:56:00 EST, [facility] 178, cm, 03/14/22 15:25:00 EST, Height, 72.5, kg, 03/08/22 4:29:00 EST, Dry Weight Start Date: 04/11/22 Status: Ordered magnesium oxide 400 mg oral tablet 1 tablet, By Mouth, Daily, # 28 tablet, 5 Refills, Maintenance, 01/17/22 14:43:00 EDT, [facility] 177, cm, 01/17/22 7:37:00 EDT, Height, 75, kg, 01/11/22 12:33:00 EDT, Dry Weight Start Date: 01/17/22 Status: Ordered metFORMIN 1000 mg oral tablet 1 tablet, By Mouth, 2 times a day, # 56 tablet, 5 Refills, Maintenance, 01/17/22 14:43:00 EDT, [facility] 177, cm, 01/17/22 7:37:00 EDT, Height, 75, kg, 01/11/22 12:33:00 EDT, Dry Weight Start Date: 01/17/22 Status: Ordered nicotine 21 mg/24 hr transdermal film, extended release 1 patch, Topically, Daily, # 30 patch, 0 Refills, Maintenance, 03/14/22 14:53:00 EST, Patch, [facility], Partial fill upon patient request [...] Confirmed Active 1angioplasty 2000; 3 stents at [facility] 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 [...] Care Team Personnel Name: Alicia Negron Position: [facility] RN Member Role: Primary Care Nurse Name: Ewa Everett RN Position: [facility] RN Member Role: Primary Care Nurse Name: Hanna Dailey Position: [facility] RN Member Role: Primary Care Nurse Name: Gela Orosco RN Position: [facility] RN Member Role: Primary Care Nurse Name: Jessica Castrejon RN Position: [facility] RN Member Role: Primary Care Nurse Name: Hien Hidalgo RN Position: [facility] RN Member Role: Primary Care Nurse Name: Evelyn Mcnulty RN Position: [facility] RN Member Role: Primary Care Nurse Name: Sonya Dee NP Position: [facility] PCO Associate Professional Member Role: PCP Address: Address: [address] [place] [address], [address] [place] [address]- Name: Pola Reid RN Position: [facility] RN Jia Member Role: Primary Care Nurse Name: Betzy Beckford RN Position: S RN Member Role: Primary Care Nurse Name: Karley Perry Position: S RN Member Role: Primary Care Nurse Name: Zully Jara Position: S RN Member Role: Primary Care Nurse Name: Yunior Bui RN Position: [facility] RN Member Role: Primary Care Nurse Name: Candace Liang RN Position: [facility] RN Member Role: Primary Care Nurse Name: Dedra Lezama Position: [facility] RN Member Role: Primary Care Nurse Name: Pat Fernando RN Position: [facility] RN Member Role: Primary Care Nurse Name: Randa Sagastume RN Position: [facility] RN Member Role: Primary Care Nurse Name: Mitra Patel Position: [facility] RN Member Role: Primary Care Nurse Name: Kacie Campbell RN Position: [facility] RN Member Role: Primary Care Nurse Name: Charito Vazquez RN Position: [facility] ED RN W/OE and Tasks Member Role: Primary Care Nurse Name: Ronda GARAY cecilia Position: [facility] RN Member Role: Primary Care Nurse Name: Phuong Delgado RN Position: [facility] RN Member Role: Primary Care Nurse Name: Lydia Doherty RN Position: [facility] RN Member Role: Primary Care Nurse Name: Elie Davis RN Position: [facility] RN Member Role: Primary Care Nurse Name: Delfina Still RN Position: [facility] RN Member Role: Primary Care Nurse Name: Chandni Gibbons RN Position: [facility] RN Member Role: Primary Care Nurse Name: Rosio Gibbons RN Position: [facility] RN Member Role: Primary Care Nurse Name: Viry Zacarias RN Position: [facility] RN Member Role: Primary Care Nurse Name: Kerri Cunha RN Position: [facility] Hospital Programming Instructor Member Role: Primary Care Nurse Name: Atiya Mcintyre RN Position: [facility] RN Member Role: Primary Care Nurse Care Team Related Persons Name: IBETH BRUNNER Address: [address] [place], [place] Name: IBETH CORRAL Address: [address] [place], [place]
--- OUTSIDE RECORDS SUMMARY | 2023-04-11 15:19 | XMS_ITS | Continuity of Care Document ---
Author Name Unknown Organization [facility] ter Address [address] [place] [address]- Care Team Providers Care Fold Skiver Name Role Phone Luiz SALAS, Sonya Primary Care Physician [phone] Encounter [facility] Date(s): 01/10/22 - 01/17/[address] [address]- Encounter Diagnosis Falls frequently(Final) - 01/10/22 Discharge Disposition: A-Transfer SNF Attending Physician: Evonne SAVAGE, Leslee Guthrie Admitting Physician: Shai Ann MD Referring Physician: Not on Staff, Referring [...] , Mild, Temperature Greater than 100.5, Routine, 01/10/22 7:57:00 EDT Start Date: 01/10/22 Stop Date: 01/18/22 Status: Discontinued Aspirin Low Dose 81 mg oral tablet, chewable 1 tablet, By Mouth, Daily, # 28 tablet, 12 Refills, [facility], 178, cm, 11/10/21 9:32:00 EDT, Height, 77.5, [...] 5 Refills, Maintenance, 01/17/22 14:43:00 EDT, [facility], 177, cm, 01/17/22 7:37:00 EDT, Height, 75, kg, 01/11/22 12:33:00 EDT, Dry Weight Start Date: 01/17/22 Status: Ordered magnesium oxide 400 mg oral tablet 1 tablet, By Mouth, Daily, # 28 tablet, 5 Refills, Maintenance, 01/17/22 14:43:00 EDT, [facility], [facility], cm, 01/17/22 7:37:00 EDT, Height, 75, kg, 01/11/22 12:33:00 EDT, Dry Weight Start Date: 01/17/22 Status: Ordered metFORMIN 1000 mg oral tablet 1 tablet, By Mouth, 2 times a day, # 56 tablet, 5 Refills, Maintenance, 01/17/22 14:43:00 EDT, [facility], 177, cm, 01/17/22 7:37:00 EDT, Height, [...] 14:43:00 EDT, Route to Pharmacy Electronically, [facility], 177, cm, 01/17/22 7:37:00 EDT, Height, [...] 11/07/20 Active 1angioplasty 2000; 3 stents at [facility] 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 S/P Elective Coiling of Unruptured Aneurysm with Subsequent Left-Sided Weakness: Acute nonhemorrhagic infarct in the RIGHT posterior frontal lobe: Vital Signs Most recent to oldest [Reference Range]: 1 2 3 Height 177 cm (01/17/22 7:37 AM) 177 cm (01/16/22 7:53 PM) 177 cm (01/15/22 11:17 PM) Weight 75 kg (01/11/22 12:33 PM) 75 kg (01/11/22 12:28 PM) 55.5 kg (01/11/22 2:57 AM) Oxygen Saturation [94-100 %] 100 % (01/17/22 7:37 AM) 98 % (01/16/22 7:53 PM) 97 % (01/16/22 3:00 PM) Pulse Rate [55-90 bpm] 63 bpm (01/17/22 7:37 AM) 77 bpm (01/16/22 7:53 PM) 70 bpm (01/16/22 3:00 PM) Body Mass Index [18.5-24.99 kg/m2] 23.94 kg/m2 (01/11/22 12:28 PM) 17.72 kg/m2 *L* (01/11/22 2:57 AM) 17.72 kg/m2 *L* (01/10/22 11:47 PM) Blood Pressure [90-138/55-84 mm Hg] 133/71mm Hg (01/17/22 7:37 AM) 101/49mm Hg (01/16/22 7:53 PM) 150/58mm Hg *H* (01/16/22 3:00 PM) Respiratory Rate [16-30 br/min] 18 br/min (01/17/22 7:37 AM) 18 br/min (01/16/22 9:17 PM) 17 br/min (01/16/22 7:53 PM) Temperature [96.8-100.4 DegF] 97.9 DegF (01/17/22 7:37 AM) 98.3 DegF (01/16/22 7:53 PM) 98 DegF (01/16/22 3:00 PM) Mode of Delivery (Oxygen) Room air (01/17/22 7:37 AM) Room air (01/16/22 7:53 PM) Room air (01/16/22 3:00 PM) Blood pressure sites Arm, left (01/17/22 7:37 AM) Arm, left (01/16/22 7:53 PM) Arm, right (01/16/22 3:00 PM) Temperature Route Oral (01/17/22 7:37 AM) Oral (01/16/22 7:53 PM) Oral (01/16/22 3:00 PM) Dry Weight 75 kg (01/11/22 12:33 PM) 75 kg (01/11/22 12:28 PM) Weight Obtained Via Bed scale (01/11/22 12:33 PM) Dry Weight Obtained Via Bed scale (01/11/22 12:33 PM) Social History Social History Type Response Smoking Status 5-9 cigarettes (betw een 1/4 to 1/2 pack)/day in last 30 days entered on: 11/28/21 Sex Patient Care team information Personnel Name: Sonya Dee NP Address: Address: [address] [place] [address], [address] [place], [place] [address]
--- OUTSIDE RECORDS SUMMARY | 2023-04-11 15:19 | XMS_ITS | Continuity of Care Document ---
Author Name Unknown Organization [facility] Address [address] [place] [address]- Care Team Providers Care Mallet And Die Cutter Name Role Phone Luiz SALAS, Sonya Primary Care Physician [phone] Encounter [facility] Date(s): 11/01/22 - 12/01/22 [facility] [address] [place] [id number]- Allergies, Adverse Reactions, Alerts Substance Reaction Severity Status penicillin 1 Active gabapentin Swelling Moderate Active Onions Active sulfa drugs Active Other Food Allergy [...] Not Given Patient Refuses 1Result Comment: [facility]: [id number] Medications albuterol-ipratropium 3 mg-0.5 mg/3 ml inhalation solution 3 mL, BAND Nebulizer, Every 4 hours, PRN Wheezing/Shortness of Breath, 0 Refills, Maintenance, 10/26/22 13:25:00 EDT, Inhalation Solution, Partial fill upon patient request if the prescription is fora schedule II opioid drug. Start Date: 10/26/22 Status: Ordered Aspirin Low Dose 81 mg oral tablet, chewable 1 tablet = 81 mg, By Mouth, Daily, (Last Filled & delivered 07/24/22 90 for 90 days), Maintenance, 11/28/22 14:17:00 EDT, Partial fill upon patient request if the prescription is for a schedule II opioid drug. Start Date: 11/28/22 Status: Ordered atorvastatin 40 mg oral tablet 1 tablet = 40 mg, By Mouth, Daily, (Last Filled & delivered 10/09/22 28 for 28 days), Maintenance, 11/28/22 14:17:00 EDT, Partial fill upon patient request if the prescription is for a schedule IIopioid drug. Start Date: 11/28/22 Status: Ordered calcium [...] 75 mg, 1, tablet, By Mouth, Daily, (Last Filled & Delivered 07/28/22 90 for 90 days), Maintenance, 11/28/22 14:17:00 EDT, Partial fill upon patient request if the prescription is for a schedule II opioid drug. Start Date: 11/28/22 Status: Ordered depends xl depends xl, See [...] opioid drug. Start Date: 10/26/22 Status: Ordered Freestyle Lite Lancets See Instructions, # 200 each, Refills 11, Tot. Refills 11, Maintenance, Use to check blood sugar three times a day DX: Diabetes Mellitus E11.9, 11/23/22 13:49:00 EDT, Supply, 178, cm, 11/23/22 11:46:00 EDT, Height, 79.5, kg, 10/20/22 13:34:00 EDT, Brayan Start Date: 11/23/22 Stop Date: 11/18/23 Status: [...] EDT, Height, 79.5, kg, 10/20/22 13:34:00 EDT, Start Date: 11/23/22 Status: Ordered glimepiride 4 mg oral tablet 1 tablet = 4 mg, By Mouth, 2 times a day, (Last Filled & delivered 07/24/22 180 for 90 days), Maintenance, 11/28/22 14:17:00 EDT, Partial fill upon patient request if the prescription is for a schedule II opioid drug. Start Date: 11/28/22 Status: Ordered large pull ups large pull ups, See Instructions, # 120 each, Refills 11, Tot. Refills 11, Maintenance, DX: incontinence N39.46, 02/09/22 14:03:00 EDT, Supply Start Date: 02/09/22 Status: Ordered lisinopril 5 mg oral tablet 5 mg, 1, tablet, By Mouth, Daily, (Last Filled & delivered 07/24/22 90 for 90 days), Maintenance,11/28/22 14:17:00 EDT, Partial fill upon patient request if the prescription is for a schedule II opioid drug. Start Date: 11/28/22 Status: Ordered magnesium oxide 400 mg oral tablet 1 tablet = 400 mg, By Mouth, Daily, (Last Filled & delivered 10/09/22 28 for 28 days), Maintenance, 11/28/22 14:17:00 EDT, Partial fill upon [...] mg, By Mouth, 2 times a day, (Last Filled & delivered 07/24/22 180 for 90 days),Maintenance, 11/28/22 14:17:00 EDT, Partial fill upon patient request if the prescription is for a schedule II opioid drug. Start Date: 11/28/22 Status: Ordered pantoprazole 40 mg oral delayed release tablet 1 tablet = 40 mg, By Mouth, Daily, (Last Filled & delivered 07/24/22 90 for 90 days), Maintenance, 11/28/22 14:17:00 EDT Start Date: 11/28/22 Status: Ordered pregabalin 75 mg oral capsule 1 capsule = 75 mg, By Mouth, Daily, (Has Never Started Per Héctor this patient gets ALL MEDS Delivered.), Maintenance, 11/28/22 14:17:00 EDT, Partial fill upon patient request if the prescription is for a schedule II opioid drug. Start Date: 11/28/22 Status: Ordered sertraline 25 mg oral tablet 1 tablet = 25 mg, By Mouth, Daily, (Last Filled & delivered 07/24/22 90 for 90 days), Maintenance, 11/28/22 14:17:00 EDT, Partial fill upon patient request if the prescription is for a schedule II opioid drug. Start Date: 11/28/22 Status: Ordered Vitamin B1 100 mg oral tablet 100 mg, 1, tablet, By Mouth, Daily, (Last Filled & delivered 10/10/22 28 for 28 days), Maintenance, 11/28/22 14:17:00 EDT, Partial fill upon patient request if the prescription is for a schedule II opioid drug. Start Date: 11/28/22 Status: Ordered Vitamin C 500 mg oral tablet 1 tablet = 500 mg, By Mouth, Daily, (Last Filled & delivered 10/18/22 90 for 90 days), Maintenance, 11/28/22 14:17:00 EDT, Partial fill upon [...] Confirmed Active 1angioplasty 2000; 3 stents at [facility] 2R frontal stroke secondary to [...] Care Nurse Name: Nereida Dobbins RN Position: S RN Member Role: Primary Care Nurse Name: Gela Orosco RN Position: S RN Member Role: Primary Care Nurse Name: Jessica Castrejon RN Position: [facility] RN Member Role: Primary Care Nurse Name: Hien Hidalgo RN Position: [facility] RN Member Role: Primary Care Nurse Name: Phuong Balderas RN Position: [facility] SN RN Member Role: Primary Care Nurse Name: Evelyn Mcnulty RN Position: [facility] RN Member Role: Primary Care Nurse Name: Yanely Shanks RN Position: [facility] RN Member Role: Primary Care Nurse Name: Sonya Dee NP Position: [facility] PCO Associate Professional Member Role: PCP Address: Address: [address] [place] [address], [address] Floor [facility] [place] [address]- Name: Siddhartha Andino RN Position: [facility] RN Member Role: Primary Care Nurse Name: Pola Reid RN Position: [facility] RN Supv Member Role: Primary Care Nurse Name: Betzy Beckford RN Position: [facility] RN Member Role: Primary Care Nurse Name: Gabriella Gonsales RN Position: [facility] RN Member Role: Primary Care Nurse Name: Zully Jara Position: [facility] RN Member Role: Primary Care Nurse Name: Yunior Bui RN Position: [facility] RN Member Role: Primary Care Nurse Name: Candace Liang RN Position: [facility] RN Member Role: Primary Care Nurse Name: Marci Padilla RN Position: [facility] RN Member Role: Primary Care Nurse Name: Florecita Ring RN Position: [facility] RN Member Role: Primary Care Nurse Name: Dedra Lezama Position: [facility] RN Member Role: Primary Care Nurse Name: Pat Fernando RN Position: [facility] RN Member Role: Primary Care Nurse Name: Randa Sagasutme RN Position: [facility] RN Member Role: Primary Care Nurse Name: Mitra Patel Position: [facility] RN Member Role: Primary Care Nurse Name: Kacie Campbell RN Position: [facility] RN Member Role: Primary Care Nurse Name: Tammy Castillo RN Position: [facility] RN Member Role: Primary Care Nurse Name: Charito Vazquez RN Position: [facility] SUNITHA RN W/OE and Tasks Member Role: Primary Care Nurse Name: Dylan Bond RN Position: [facility] RN Member Role: Primary Care Nurse Name: Lydia Doherty RN Position: [facility] RN Member Role: Primary Care Nurse Name: Elie Davis RN Position: [facility] RN Member Role: Primary Care Nurse Name: Delfina Still RN Position: [facility] RN Member Role: Primary Care Nurse Name: Chandni Gibbons RN Position: [facility] SN RN Member Role: Primary Care Nurse Name: Brayden Elizabeth RN Position: [facility] RN Member Role: Primary Care Nurse Name: Viry Zacarias RN Position: [facility] RN Member Role: Primary Care Nurse Name: Kerri Cunha RN Position: [facility] [employer]inist Member Role: Primary Care Nurse Name: Atiya Mcintyre RN Position: [facility] RN Member Role: Primary Care Nurse Care Team Related Persons Name: IBETH BRUNNER Address: home [address] [address] Name: IBETH CORRAL Address: home [address] [address]
--- OUTSIDE RECORDS SUMMARY | 2023-04-11 15:19 | XMS_ITS | Continuity of Care Document ---
Author Name Unknown Organization [facility] Address [address] [place] [id number]- Care Team Providers Care Sap Architect Name Role Phone Luiz SALAS, Sonya Primary Care Physician Encounter [facility] Date(s): 08/06/22 - 08/07/[address] [address]- Encounter Diagnosis Shortness of breath(Final) - 08/06/22 Shortness of breath(Final) - 08/06/22 Shortness of breath(Final) - 08/06/22 Discharge Disposition: A-D/C Home Attending Physician: Connie Aguilar MD Admitting Physician: Connie Aguilar MD Referring Physician: Not on Staff, Referring [...] Give n influenza virus vaccine, inactivated 03/31/18 Efrian rded influenza virus vaccine, inactivated 01/09/17 Efrain [...] Comment: [facility]: [phone] Medications Aspirin Low Dose 81 mg oral tablet, chewable 1 tablet, By Mouth, Daily, # 90 tablet, 1 Refills, Maintenance, 07/31/22 13:23:00 EDT, [facility], 178, cm, 07/23/22 11:32:00 EDT, Height, 72.5, kg, 03/08/22 4:29:00 EST, Dry Weight Start Date: 07/31/22 Status: Ordered atorvastatin 40 mg oral tablet 1 tablet, By Mouth, Daily at bedtime, # 28 tablet, 5 Refills, Maintenance, 07/31/22 13:23:00 EDT, [facility], 178, cm, 07/23/22 11:32:00 EDT, [...] 08/01/22 12:43:00 EDT, Route to Pharmacy Electronically, [facility], 178, cm, 07/23/22 11:32:00 EDT, [...] 0 Refills, Maintenance, 08/01/22 11:17:00 EDT, [facility], 178, cm, 07/23/22 11:32:00 [...] 13:25:00 EDT, Route to Pharmacy Electronically, [facility], 178, cm, 07/23/22 11:32:00 EDT, [...] 1 Refills, Maintenance, 07/31/22 13:25:00 EDT, [facility], 178, cm, 07/23/22 11:32:00 EDT, Height, 72.5, kg, 03/08/22 4:29:00 EST, Dry Weight Start Date: 07/31/22 Status: Ordered nicotine 21 mg/24 hr transdermal film, extended release 1 patch, Topically, Daily, # 30 patch, 0 Refills, Maintenance, 03/14/22 14:53:00 EST, Patch, [facility], Partial fill upon patient [...] 1 Refills, Maintenance, 07/31/22 13:26:00 EDT, [facility], 178, cm, 07/23/22 11:32:00 EDT, Height, 72.5, [...] Confirmed Active 1angioplasty 2000; 3 stents at [facility] 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 S/P Elective Coiling of Unruptured Aneurysm with Subsequent Left-Sided Weakness: Acute nonhemorrhagic infarct in the RIGHT posterior frontal lobe: Results Orders for Microbiology Reports Name Date Blood Culture 08/06/22 Blood Culture #2 08/06/22 Microbiology Reports TEST:Blood Culture, Second Order STATUS:Unauthenticated BODY SITE: SOURCE:Blood COLLECTED DATE/TIME:08/06/22 5:06 PM Blood Culture, Second Order SPECIMEN DESCRIPTION : BLOOD NO SITE SPECIAL REQUESTS : NONE CULTURE : NO GROWTH AFTER 24 HOURS REPORT STATUS : PRELIMINARY REPORT TEST:Blood Culture STATUS:Unauthenticated BODY SITE: SOURCE:Blood COLLECTED DATE/TIME:08/06/22 3:32 PM Blood Culture SPECIMEN DESCRIPTION : BLOOD NO SITE SPECIAL REQUESTS : NONE CULTURE : NO GROWTH AFTER 24 HOURS REPORT STATUS : PRELIMINARY REPORT Radiology Reports * Exam Date Time Procedure Performing Provider Status 08/06/22 4:07 PM Chest 2 Views Frontal and Lat George Georgette; Zarina (Verified) Notes: (Chest 2 Views Frontal and Lat) Reason For Exam: Shortness of Breath RESULT: Chest 2 Views Frontal and Lat Chest 2 Views Frontal and Lat Reason: Shortness of Breath; Clinical Question(s): Pneumonia COMPARISON: Multiple prior examinations the most recent dated 04/01/2022. FINDINGS: LINES AND TUBES: None. LUNGS AND PLEURA: Clear lungs. Normal pulmonary vascularity. No pleural effusion. No pneumothorax. HEART, MEDIASTINUM AND MAHESH: Heart is normal in size. Normal mediastinal and hilar contour. BONES AND SOFT TISSUES: No acute abnormality. Moderate degenerative change thoracic spine. IMPRESSION: No acute abnormality. WSN: [id number] Ordering Physician: Sarah Shook Dictated By: Aramis Chamberlain MD, V Dictated Date/Time: 08/06/22 4:09 pm Reviewed By: Aramis Chamberlain MD, V Signed By: Aramis Chamberlain MD, V Signed Date/Time: 08/06/22 4:09 pm Transcribed By: ANDREAS Transcribed Date/Time: 08/06/22 4:09 pm Vital Signs Most recent to oldest [Reference Range]: 1 2 3 Oxygen Saturation [94-100 %] 97 % (08/07/22 2:41 AM) 100 % (08/06/22 9:58 PM) 99 % (08/06/22 6:04 PM) Pulse Rate [55-90 bpm] 62 bpm (08/07/22 2:41 AM) 67 bpm (08/06/22 6:04 PM) 73 bpm (08/06/22 5:09 PM) Blood Pressure [90-138/55-84 mm Hg] 109/90mm Hg (08/07/22 2:41 AM) 133/60mm Hg (08/06/22 9:58 PM) 114/88mm Hg (08/06/22 6:04 PM) Respiratory Rate [16-30 br/min] 18 br/min (08/07/22 2:41 AM) 16 br/min (08/06/22 9:58 PM) 19 br/min (08/06/22 6:04 PM) Temperature [96.8-100.4 DegF] 98.8 DegF (08/06/22 3:16 PM) Mode of Delivery (Oxygen) Room air (08/07/22 2:41 AM) Room air (08/06/22 9:58 PM) Room air (08/06/22 6:04 PM) Blood pressure sites Arm, left (08/07/22 2:41 AM) Arm, left (08/06/22 9:58 PM) Arm, left (08/06/22 6:04 PM) Temperature Route Oral (08/06/22 3:16 PM) Social History Social History Type Response Smoking Status 10 or more cigarette s (1/2 pack or more)/day in last 30 days; Interested in cessation: No; Patient wants NRT during admission Yes; Tobacco use times per day: 1PPD; Number of years: 53; Total pack years: 53; Started at age: 13; entered on: 03/08/22 Sex EKG study * Event Display: EKG Authored Date: [id number] Note * Rachael SALAS, Noemi Lima: PERFORM Event Display: Patient Education Leaflets Authored Date: [id number] Altered Level of Consciousness ?? [id number] Altered Level of Consciousness Level of consciousness (LOC) is a measure of a person???s ability to interact with other people andto react to what is around them. A person with an altered level of consciousness may not respond totouch or voices. They??may look vacant or blank. They may not make eye contact with others. The person??may be limp and may not move for a long time. Or they may??show little interest in moving. They may also be confused. There are many causes of altered LOC. They include low blood sugar, infection, medicines, head injuries, seizures,??stroke, and being intoxicated.. Altered LOC is a medical emergency. The healthcare provider will do tests to help find the cause. These may include blood tests and imaging tests. The person is treated so breathing and heart rate are stable. An IV (intravenous) line may be put into a vein in the arm or hand to give medicines. Oncethe cause of altered LOC is found, the goal is to treat the cause. In almost all cases, the person will be admitted to the hospital for diagnostic testing and??observation. Some less common conditions, such as locked-in syndrome and akinetic mutism, seem like a??coma.??But the person??is perfectly awake. Home care When your loved one is released from the hospital, you will be given guidelines for caring for them. In general: ??? Follow the healthcare provider's instructions for giving any prescribed medicines to your child. ??? Stay with your loved one or have another responsible adult look after them. Watchcarefully for any return of symptoms or changes in behavior. ??? If the person has diabetes, make sure that any approved medicines are given on time and as prescribed. ?? Follow-up care Follow up with your??healthcare provider, or our staff as advised. ?? When to seek medical advice Call your??healthcare provider right away if new symptoms appear. ?? Call 911 Call 911 or get medical care right away??if symptoms of altered LOC return. ?? Last Reviewed Date: 2021 ?? [id number] [employer]. All rights reserved. This information is not intended as a substitute for professional medical care. Always follow your healthcare professional's instructions. ?? * BHSPowerscribe , CIS S: TRANSCRIBE Aramis Chamberlain MD, V: VERIFY Event Display: Result: Authored Date: [id number] Chest 2 Views Frontal and Lat Reason: Shortness of Breath; Clinical Question(s): Pneumonia COMPARISON: Multiple prior examinations the most recent dated 04/01/2022. FINDINGS: LINES AND TUBES: None. LUNGS AND PLEURA: Clear lungs. Normal pulmonary vascularity. No pleural effusion. No pneumothorax. HEART, MEDIASTINUM AND MAHESH: Heart is normal in size. Normal mediastinal and hilar contour. BONES AND SOFT TISSUES: No acute abnormality. Moderate degenerative change thoracic spine. IMPRESSION: No acute abnormality. WSN: [id number] Ordering Physician: Sarah Shook Dictated By: Aramis Chamberlain MD, V Dictated Date/Time: 08/06/22 4:09 pm Reviewed By: Aramis Chamberlain MD, V Signed By: Aramis Chamberlain MD, V Signed Date/Time: 08/06/22 4:09 pm Transcribed By: ANDREAS Transcribed Date/Time: 08/06/22 4:09 pm Patient Care team information Care Team Personnel Name: Louise Negronmana Position: [facility] RN Member Role: Primary Care Nurse Name: Hanna Dailey Position: [facility] RN Member Role: Primary Care Nurse Name: Gela Orosco RN Position: [facility] RN Member Role: Primary Care Nurse Name: Jessica Castrejon RN Position: [facility] RN Member Role: Primary Care Nurse Name: Hien Hidalgo RN Position: [facility] RN Member Role: Primary Care Nurse Name: Phuong Balderas RN Position: [facility] SN RN Member Role: Primary Care Nurse Name: Evelyn Mcnulty RN Position: [facility] RN Member Role: Primary Care Nurse Name: Sonya Dee NP Position: [facility] PCO Associate Professional Member Role: PCP Address: Address: [address] [place] [address], [address] [place], [place] [address] Name: Pola Reid RN Position: [facility] RN Supv Member Role: Primary Care Nurse Name: Betzy Beckford RN Position: [facility] RN Member Role: Primary Care Nurse Name: Karley Perry LPN Position: [facility] AMB Nurse Member Role: Primary Care Nurse Name: Zully Jara Position: [facility] RN Member Role: Primary Care Nurse Name: Yunior Bui RN Position: [facility] RN Member Role: Primary Care Nurse Name: Candace Liang RN Position: [facility] RN Member Role: Primary Care Nurse Name: Dedra Lezama Position: [facility] RN Member Role: Primary Care Nurse Name: Pat Fernando RN Position: [facility] RN Member Role: Primary Care Nurse Name: Randa Sagastume RN Position: [facility] RN Member Role: Primary Care Nurse Name: Mitra Patel Position: [facility] RN Member Role: Primary Care Nurse Name: Kacie Campbell RN Position: [facility] RN Member Role: Primary Care Nurse Name: Charito Vazquez RN Position: [facility] SUNITHA RN W/OE and Tasks Member Role: Primary Care Nurse Name: Dylan Bond RN Position: [facility] RN Member Role: Primary Care Nurse Name: Lydia Doherty RN Position: [facility] RN Member Role: Primary Care Nurse Name: Elie Davis RN Position: [facility] RN Member Role: Primary Care Nurse Name: Delfina Still RN Position: [facility] RN Member Role: Primary Care Nurse Name: Chandni Gibbons RN Position: [facility] RN Member Role: Primary Care Nurse Name: Rosio Gibbons RN Position: [facility] RN Member Role: Primary Care Nurse Name: Viry Zacarias RN Position: [facility] RN Member Role: Primary Care Nurse Name: Kerri Cunha RN Position: [facility] Hospital Candle Molder Member Role: Primary Care Nurse Name: Atiya Mcintyre RN Position: [facility] RN Member Role: Primary Care Nurse Name: Nayeli Riggs Position: [facility] ED [facility] Member Role: Battery Tester Name: Noemi Cano NP Position: [facility] Associate Professional Member Role: ED Physician Damage Cutter Address: Address: [address] [place] [address] Name: Swapna Barrios RN Position: [facility] ED RN W/OE and Tasks Member Role: Patient Care Provider Name: Connie Aguilar MD Position: [facility] Resident Member Role: ED Attending Physician Address: Address: [address] [place] [address] Care Team Related Persons Name: IBETH BRUNNER Address: [address] Name: IBETH CORRAL Address: [address] [address]
--- OUTSIDE RECORDS SUMMARY | 2023-04-11 15:19 | XMS_ITS | Continuity of Care Document ---
Author Name Unknown Organization [facility] Address [address] [place] [address]- Care Team Providers Care Reconciliation Clerk Name Role Phone Luiz SALAS, Sonya Primary Care Physician [phone] Encounter [facility] Date(s): 03/31/21 - 04/30/21 [facility] [address] [place] [address]- Allergies, Adverse Reactions, Alerts Substance Reaction Severity [...] 5 Refills, Maintenance, 01/16/21 10:30:00 EDT, Tablet, [facility]acy #[id number], Partial fill upon patient request [...] capsule, 11 Refills, Maintenance,01/16/21 10:26:00 EDT, Capsule, [facility]/pharmacy #[id number], Partial fill upon patient request if the prescription is for a schedule II opioid drug., 178, cm, 0... Start Date: 01/16/21 Stop Date: 01/11/22 Status: Ordered clonazePAM 0.5 mg oral tablet 1 tablet = 0.5 mg, By Mouth, 3 times a day, # 90 tablet, 1 Refills, Maintenance, 01/16/21 10:52:00 EDT, Tablet, [facility]/pharmacy #[id number], Partial fill upon patient request if the prescription is for a schedule II opioid drug., 178, cm, 12/29/20 5:31:00 EDT,... Start Date: 01/16/21 Stop Date: 03/17/21 Status: Ordered glimepiride 4 mg oral tablet 1 tablet, By Mouth, 2 times a day, # 60 tablet, 2 Refills, Maintenance, 01/16/21 10:26:00 EDT, [facility]/pharmacy #[id number], 178, cm, 12/29/20 5:31:00 EDT, Height, 100, kg, 12/26/20 16:53:00 EDT, Dry Weight Start Date: 01/16/21 Status: Ordered lactulose 10 gm/15 ml oral syrup 15 mL, By Mouth, Daily, PRN NEEDED FOR CONSTIPATION, # 473 mL, 0 Refills, [id number], 30, TAKE 15 ML BY MOUTH DAILY NEEDED FOR CONSTIPATION, 178, cm, 03/13/21 13:09:00 EST, Height, 100, kg, 12/26/20 16:53:00 EDT, Dry Weight Start Date: 04/20/21 Status: Ordered lisinopril 10 mg oral tablet 10 mg, 1, tablet, By Mouth, Daily, # 30 tablet, Refills 5, Tot. Refills 5, Maintenance, 01/16/21 10:29:00 EDT, Route to Pharmacy Electronically, [facility]/pharmacy #[id number], Partial fill upon patient request [...] Refills, Maintenance, 03/15/20 12:57:00 EST, Tablet, [facility], Partial fill upon patient request, 178, cm, 03/15/20 11:15:00 EST, Height, 105, kg, 03/12/20 6:12:00 EST, Dry W... Start Date: 03/15/20 Status: Ordered multivitamin with minerals Multiple Vitamins with Minerals oral tablet 1 tablet, By Mouth, Daily, # 30 tablet, 0 Refills, Maintenance, 04/27/21 13:07:00 EST, Tablet, [facility]/pharmacy #[id number], Partial fill upon patient request if the prescription is for a schedule II opioid drug., 1 tablet By Mouth Daily, 178, cm, 04/27/21 4:54... Start Date: 04/27/21 Status: Ordered oxyCODONE 5 mg oral tablet 5 mg, 1, tablet, By Mouth, 5 times a day, INBOUND CUSTOMER SERVICE REPRESENTATIVE checked., # 140 tablet, Refills 0, Tot. Refills 0, Maintenance, 03/31/21 13:33:00 EST, Route to Pharmacy Electronically, [facility]/pharmacy #[id number], Partial fillupon patient request if the prescription is for a s... Start Date: 03/31/21 Stop Date: 04/28/21 Status: Ordered pantoprazole 40 mg oral delayed [...] 12:50:00 EDT, Route to Pharmacy Electronically, [facility], Partial fill upon patient request if the prescription is for a schedule II opioi... Start Date: 12/28/20 Stop Date: 01/27/21 Status: Ordered raised toilet seat raised toilet seat, See Instructions, # 1 each, Refills 0, Tot. Refills 0, Maintenance, JAZMYN: lieftime DX: M54.5, I63.9, 01/24/21 10:39:00 EDT, Supply Start Date: 01/24/21 Status: Ordered thiamine 100 mg oral tablet 100 mg, 1, tablet, By Mouth, Daily, # 30 tablet, Refills 0, Tot. Refills 0, Maintenance, 04/27/21 13:07:00 EST, [id number], Partial fill upon patient requestif the prescription is for a schedule II opioid corinne... Start Date: 04/27/21 Status: Ordered Tums 500 mg oral tablet, [...]
--- OUTSIDE RECORDS SUMMARY | 2023-04-11 15:19 | XMS_ITS | Continuity of Care Document ---
Author Name Unknown Organization [facility] Adult Address [address] [place] [address]- Care Team Providers Care Switch Box Installer Name Role Phone Luiz MEDIA PLANNER / BUYER, Sonya Primary Care Physician Encounter [facility] Date(s): 07/31/22 - 08/30/22 [facility] [address] [place] [address]- Allergies, Adverse Reactions, Alerts Substance Reaction Severity [...] Not Given Patient Refuses 1Result Comment: [facility]: [id number] Medications Aspirin Low Dose 81 mg oral [...] Maintenance, 07/31/22 13:23:00 EDT, [facility], 178, cm, 07/23/22 11:32:00 EDT, Height, [...] Route to Pharmacy Electronically, [facility], 178, cm, 07/23/22 11:32:00 EDT, Height, [...] 0 Refills, Maintenance, 08/01/22 11:17:00 EDT, [facility], 178, cm, 07/23/22 11:32:00 EDT, [...] 13:25:00 EDT, Route to Pharmacy Electronically, [facility], 178, cm, 07/23/22 11:32:00 EDT, [...] 1 Refills, Maintenance, 07/31/22 13:25:00 EDT, [facility], 178, cm, 07/23/22 11:32:00 EDT, Height, 72.5, kg, 03/08/22 4:29:00 EST, Dry Weight Start Date: 07/31/22 Status: Ordered nicotine 21 mg/24 hr transdermal film, extended release 1 patch, Topically, Daily, # 30 patch, 0 Refills, Maintenance, 03/14/22 14:53:00 EST, Patch, [facility], Partial fill upon patient request [...] Confirmed Active 1angioplasty 2000; 3 stents at [facility] 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 [...] Primary Care Nurse Name: Hanna Dailey Position: [facility] RN Member Role: Primary Care Nurse Name: Gela Orosco RN Position: S RN Member Role: Primary Care Nurse Name: Jessica Castrejon RN Position: S RN Member Role: Primary Care Nurse Name: Hien Hidalgo RN Position: [facility] RN Member Role: Primary Care Nurse Name: Phuong Balderas RN Position: [facility] SN RN Member Role: Primary Care Nurse Name: Evelyn Mcnulty RN Position: S RN Member Role: Primary Care Nurse Name: Sonya Dee NP Position: [facility] PCO Associate Professional Member Role: PCP Address: Address: [address] [facility], [address]rd Floor [facility] [place] [address]- Name: Pola Reid RN Position: [facility] RN Supv Member Role: Primary Care Nurse Name: Betzy Beckford RN Position: [facility] RN Member Role: Primary Care Nurse Name: Zully Jara Position: [facility] RN Member Role: Primary Care Nurse Name: Yunior Bui RN Position: [facility] RN Member Role: Primary Care Nurse Name: Candace Liang RN Position: [facility] RN Member Role: Primary Care Nurse Name: Dedra Lezama Position: [facility] RN Member Role: Primary Care Nurse Name: Pat Fernando RN Position: [facility] RN Member Role: Primary Care Nurse Name: Randa Sagastume RN Position: [facility] RN Member Role: Primary Care Nurse Name: Mitra Patel Position: [facility] RN Member Role: Primary Care Nurse Name: Kacie Campbell RN Position: [facility] RN Member Role: Primary Care Nurse Name: Charito Vazquez RN Position: [facility] ED RN W/OE and Tasks Member Role: Primary Care Nurse Name: Dylan Bond RN Position: [facility] RN Member Role: Primary Care Nurse Name: Lydia Doherty RN Position: [facility] RN Member Role: Primary Care Nurse Name: Elie Davis RN Position: [facility] RN Member Role: Primary Care Nurse Name: Delfina Still RN Position: [facility] RN Member Role: Primary Care Nurse Name: Chandni Gibbons RN Position: [facility] RN Member Role: Primary Care Nurse Name: Viry Zacarias RN Position: [facility] RN Member Role: Primary Care Nurse Name: Kerri Cunha RN Position: [facility] Hospital Microsystems Engineer Member Role: Primary Care Nurse Name: Atiya Mcintyre RN Position: [facility] RN Member Role: Primary Care Nurse Care Team Related Persons Name: SANJAY BRUNNERN Address: home [address] [place] [address] Name: SANJAY CORRALN Address: home [address] [facility] [place] [address]
--- OUTSIDE RECORDS SUMMARY | 2023-04-11 15:19 | XMS_ITS | Continuity of Care Document ---
Author Name Unknown Organization [facility] Adult Address [address] [place] [address]- Care Team Providers Care Certified Personal Chef Name Role Phone Luiz SALAS, Sonya Primary Care Physician Encounter [facility] Date(s): 10/09/21 - 11/08/[address] [facility] Adult [address] [place] [id number]- Allergies, Adverse Reactions, Alerts Substance Reaction Severity [...] tablet, Refills 1, Route to Pharmacy Electronically, [id number], 178, cm, 05/11/21 8:52:00 EST, Height, 81, [...] 10/22/21 16:00:00 EDT, Route to Pharmacy Electronically, [facility], Partial fill upon patient request if the prescription... Start Date: 10/22/21 Stop Date: 10/25/21 Status: Ordered Tums 500 mg oral tablet, chewable 500 mg, 1, tablet, Chew, 3 times a day, PRN, # 90 tablet, Refills 5, Tot. Refills 5, Maintenance, Dyspepsia, 05/02/21 10:38:00 EST, Route to Pharmacy Electronically, [facility]/pharmacy #[id number], Partial fill upon patient [...] Active Acute ischemic stroke(Confirmed) 2 11/07/20 Active Obese class I(Confirmed) Active 1angioplasty 2000; 3 stents at [facility] 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 [...]
--- OUTSIDE RECORDS SUMMARY | 2023-04-11 15:19 | XMS_ITS | Continuity of Care Document ---
Author Name Unknown Organization [facility] Adult Address [address] [place] [address]- Care Team Providers Care Optics Technical Officer Name Role Phone Luiz SALAS, Sonya Primary Care Physician Encounter [facility] Date(s): 01/16/21 - 02/15/21 [facility] Adult [address] [place] [address]- Allergies, Adverse Reactions, Alerts Substance Reaction Severity [...] Refills, Maintenance, 01/16/21 10:30:00 EDT, Tablet, [facility]/pharmacy #[id number], Partial fill upon patient request if the prescription is for a schedule II opioid drug., 178, cm, 12/29/20 5:31:00 EDT, Height, 1... Start Date: 01/16/21 Stop Date: 07/15/21 Status: Ordered aspirin 81 mg oral tablet, chewable 81 mg, 1, tablet, By Mouth, Daily, # 30 tablet, Refills 5, Tot. Refills 5, Maintenance, 01/16/21 10:30:00 EDT, Route to Pharmacy Electronically, [facility]/pharmacy #[id number], Partial fill upon patient [...] 11 Refills, Maintenance,01/16/21 10:26:00 EDT, Capsule, [facility]/pharmacy #[id number], Partial fill upon patient request if the prescription is for a schedule II opioid drug., 178, cm, 0... Start Date: 01/16/21 Stop Date: 01/11/22 Status: Ordered clonazePAM 0.5 mg oral tablet 1 tablet = 0.5 mg, By Mouth, 3 times a day, # 90 tablet, 1 Refills, Maintenance, 01/16/21 10:52:00 EDT, Tablet, [facility]/pharmacy #[id number], Partial fill upon patient [...] 10:29:00 EDT, Route to Pharmacy Electronically, [facility]/pharmacy #[id number], Partial fill upon patient [...] Maintenance, 03/15/20 12:57:00 EST, Tablet, [facility], Partial fill upon patient request, 178, cm, 03/15/20 11:15:00 EST, Height, 105, kg, 03/12/20 6:12:00 EST, Dry W... Start Date: 03/15/20 Status: Ordered MiraLax oral powder for reconstitution = 17 Gm, By Mouth, Daily, for 14 days, dissolve in water before taking, # 238 Gm, 0 Refills, Acute 02/27/21 13:29:00 EST, 02/13/21 13:29:00 EDT, REC Powder, [facility]/pharmacy #[id number], Partial fill upon patient request if the prescription is for a schedule II... Start Date: 02/13/21 Stop Date: 02/27/21 Status: Ordered oxyCODONE 5 mg oral tablet 5 mg, 1, tablet, By Mouth, 5 times a day, PUBLIC RELATIONS STUDIES DIRECTOR checked., # 140 tablet, Refills 0, Tot. Refills 0, Maintenance, 01/16/21 10:52:00 EDT, Route to Pharmacy Electronically, [facility]/pharmacy #[id number], Partial fillupon patient request if [...]
--- OUTSIDE RECORDS SUMMARY | 2023-04-11 15:19 | XMS_ITS | Continuity of Care Document ---
Author Name Unknown Organization [facility] Adult Address [address] [place] [address]- Care Team Providers Care Banana Carrier Name Role Phone Luiz SALAS, Sonya Primary Care Physician [phone] [place] [facility] [place] 02/14/21 - 03/16/21 [facility] Adult [address] [place] [address]- Allergies, Adverse Reactions, Alerts Substance Reaction Severity [...] 5 Refills, Maintenance, 01/16/21 10:30:00 EDT, Tablet, [facility]/pharmacy #[id number], Partial fill upon patient request if the prescription is for a schedule II opioid drug., 178, cm, 12/29/20 5:31:00 EDT, Height, 1... Start Date: 01/16/21 Stop Date: 07/15/21 Status: Ordered aspirin 81 mg oral tablet, chewable 81 mg, 1, tablet, By Mouth, Daily, # 30 tablet, Refills 5, Tot. Refills 5, Maintenance, 01/16/21 10:30:00 EDT, Route to Pharmacy Electronically, [facility]/pharmacy #[id number], Partial fill upon patient request [...] capsule, 11 Refills, Maintenance,01/16/21 10:26:00 EDT, Capsule, [facility]/pharmacy #[id number], Partial fill upon patient request if the prescription is for a schedule II opioid drug., 178, cm, 0... Start Date: 01/16/21 Stop Date: 01/11/22 Status: Ordered clonazePAM 0.5 mg oral tablet 1 tablet = 0.5 mg, By Mouth, 3 times a day, # 90 tablet, 1 Refills, Maintenance, 01/16/21 10:52:00 EDT, Tablet, [facility]/pharmacy #[id number], Partial fill upon patient request if the prescription is for a schedule II opioid drug., 178, cm, 12/29/20 5:31:00 EDT,... Start Date: 01/16/21 Stop Date: 03/17/21 Status: Ordered glimepiride 4 mg oral tablet 1 tablet, By Mouth, 2 times a day, # 60 tablet, 2 Refills, Maintenance, 01/16/21 10:26:00 EDT, [facility]/pharmacy #[id number], 178, cm, 12/29/20 5:31:00 EDT, Height, 100, kg, 12/26/20 16:53:00 EDT, Dry Weight Start Date: 01/16/21 Status: Ordered lactulose 10 gm/15 ml oral syrup 15 mL, By Mouth, Daily, PRN NEEDED FOR CONSTIPATION, # 473 mL, 0 Refills, [facility]ORE [id number], 30, TAKE 15 ML BY MOUTH DAILY NEEDED FOR CONSTIPATION, 178, cm, 02/03/21 12:52:00 EDT, Height, 100, kg, 12/26/20 16:53:00 EDT, Dry Weight Start Date: 03/01/21 Status: Ordered lisinopril 10 mg oral tablet 10 mg, 1, tablet, By Mouth, Daily, # 30 tablet, Refills 5, Tot. Refills 5, Maintenance, 01/16/21 10:29:00 EDT, Route to Pharmacy Electronically, [facility]/pharmacy #[id number], Partial fill upon patient request [...] 0 Refills, Maintenance, 03/15/20 12:57:00 EST, Tablet, [facility], Partial fill upon patient request, 178, cm, 03/15/20 11:15:00 EST, Height, 105, kg, 03/12/20 6:12:00 EST, Dry W... Start Date: 03/15/20 Status: Ordered oxyCODONE 5 mg oral tablet 5 mg, 1, tablet, By Mouth, 5 times a day, LAYOUT INSPECTOR checked., # 140 tablet, Refills 0, Tot. Refills 0, Maintenance, 02/24/21 15:51:00 EDT, Route to Pharmacy Electronically, [facility]/pharmacy #[id number], Partial fillupon patient request if [...] 12/28/20 12:50:00 EDT, Route to Pharmacy Electronically, [facility], Partial fill upon patient request [...] 11/07/20 Active 1angioplasty 2000; 3 stents at [facility] 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 [...]
--- OUTSIDE RECORDS SUMMARY | 2023-04-11 15:19 | XMS_ITS | Continuity of Care Document ---
Author Name Unknown Organization [facility] ter Address [address] [place] [address]- Care Team Providers Care Linen Attendant Name Role Phone Luiz SALAS, Sonya Primary Care Physician [phone] Encounter [facility] Date(s): 09/05/20 - 09/05/[address] [address]- Discharge Disposition: A-D/C Walkout Attending Physician: Not on Staff, Attending MD Admitting Physician: Not on Staff, Admitting MD Referring Physician: Not on Staff, Referring [...] capsule, 11 Refills, Maintenance,08/19/20 5:59:00 EDT, Capsule, [facility] #[id number], Partial fill upon patient request if the [...] 2 Refills, Maintenance, 10/07/20 11:44:00 EDT, Tablet, [facility] #[id number], Partial fill upon patient request if the prescription is fora schedule II opioid drug., 177.8, cm, 08/08/20 11:... Start Date: 10/07/20 Stop Date: 01/05/21 Status: Ordered lisinopril 20 mg oral tablet 20 mg, 1, tablet, By Mouth, Daily, # 90 tablet, Refills 1, Tot. Refills 1, Maintenance, 08/19/20 10:00:00 EDT, Route to Pharmacy Electronically, [facility] #[id number], Partial fill upon patientrequest if the prescription is for a schedule II op... Start Date: 08/19/20 Stop Date: 02/15/21 Status: Ordered metFORMIN 1000 mg oral tablet 1 tablet = 1,000 mg, By Mouth, 2 times a day, # 60 tablet, 0 Refills, Maintenance, 03/15/20 12:57:00 EST, Tablet, [facility], Partial fill upon patient request, 178, cm, 03/15/20 11:15:00 EST, Height, 105, kg, 03/12/20 6:12:00 EST, Dry W... Start Date: 03/15/20 Status: Ordered ofloxacin 0.3% otic solution See Instructions, 5 drops Right ear once daily x 7 days, # 10 mL, Refills 0, Tot. Refills 0, Maintenance, 03/15/20 14:25:00 EST, Instructions Replace Required Details, Route to Pharmacy Electronically, [facility], Partial fill upon patie... Start Date: 03/15/20 Status: Ordered oxyCODONE 5 mg oral tablet 5 mg, 1, tablet, By Mouth, 5 times a day, SERVICES MGR checked., # 140 tablet, Refills 0, Tot. Refills 0, Maintenance, 09/05/20 14:37:00 EDT, Route to Pharmacy Electronically, [facility] #[id number], Partial fill upon patient request if the prescription i... Start Date: 09/05/20 Status: Ordered Probiotic Formula (Bacillus Coagulans) oral capsule 1 capsule, By Mouth, Daily, # 10 capsule, 0 Refills, Maintenance, 04/14/20 11:39:00 EST, Capsule, [facility] #[id number], Partial fill upon patient request if the prescription is for a schedule II opioid drug., 1 capsule By Mouth Daily, 178, cm,... Start Date: 04/14/20 Status: Ordered simvastatin 40 mg oral tablet 40 mg, 1, tablet, By Mouth, Daily at bedtime, # 30 tablet, Refills 5, Tot. Refills 5, Maintenance, 08/19/20 5:58:00 EDT, Route to Pharmacy Electronically, [facility] #[id number], Partial fill upon patient request, 177.8, cm, 08/08/20 11:27:00 EDT... Start Date: 08/19/20 Stop Date: 02/15/21 Status: Ordered Problem List Condition Effective Dates Status Health Status Inform ant Benign hypertension(Confirmed) Active CAD (coronary artery disease)(Confirmed) 1 Active Chronic lower back pain(Confirmed) Active Diabetes mellitus(Confirmed) Active Encephalopathy(Confirmed) Active Dyslipidemia(Confirmed) Active 1angioplasty 2000; 3 stents at [facility] Vital Signs Most recent to oldest [Reference Range]: 1 Oxygen Saturation [94-100 %] 95 % (09/05/20 9:24 PM) Pulse Rate [55-90 bpm] 103 bpm *H* (09/05/20 9:24 PM) Blood Pressure [90-138/55-84 mm Hg] 135/ 70mm Hg (09/05/20 9:24 PM) Respiratory Rate [16-30 br/min] 18 br/mi n (09/05/20 9:24 PM) Temperature [96.8-100.4 DegF] 99.0 DegF (09/05/20 9:24 PM) Mode of Delivery (Oxygen) Room air (09/05/20 9:24 PM) Blood pressure sites Arm, left (09/05/20 9:24 PM) Temperature Route Oral (09/05/20 9:24 PM) Social History Social History Type Response Smoking Status Smoker, current stat us unknown; Type: Cigarettes; Other: 1/2-1 pk; entered on: 05/10/20 Sex
--- OUTSIDE RECORDS SUMMARY | 2023-04-11 15:19 | XMS_ITS | Continuity of Care Document ---
Author Name Unknown Organization [facility] Adult Address [address] [place] [address]- Care Team Providers Care Sheet Folder Name Role Phone Luiz SALAS, Sonya Primary Care Physician Encounter [facility] Date(s): 08/21/21 - 09/20/21 [facility] [address] [place] [id number]- Allergies, Adverse Reactions, Alerts Substance Reaction Severity [...] tablet, Refills 1, Route to Pharmacy Electronically, [id number], 178, cm, 05/11/21 8:52:00 EST, Height, 81, [...] tablet, By Mouth, 5 times a day, PUBLICATIONS WRITER checked. fill on 09/15/21 20 tabs go [...] 05/02/21 10:38:00 EST, Route to Pharmacy Electronically, [facility]/pharmacy #[id number], Partial fill upon patient request [...] 11/07/20 Active 1angioplasty 2000; 3 stents at [facility] 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 [...]
--- OUTSIDE RECORDS SUMMARY | 2023-04-11 15:19 | XMS_ITS | Continuity of Care Document ---
Author Name Unknown Organization [facility] Adult Address [address] [place] [address]- Care Team Providers Care Industrial Maintenance Technician Name Role Phone Sonya Dee NP Primary Care Physician Encounter [facility] Date(s): 06/20/20 - 08/17/20 [facility] Adult [address] [place] [id number]- Attending Physician: Sonya Dee NP Allergies, Adverse [...] By Mouth, 2 times a day, for 30 days, # 60 tablet, 1 Refills, Hard Stop 10/07/20 11:44:00 EDT, 08/08/20 11:44:00 EDT, Tablet, [facility] #[id number], Partial fill upon patient request if the prescription is for a schedule II opio... Start Date: 08/08/20 Stop Date: 10/07/20 Status: Ordered glimepiride 4 mg oral tablet 1 tablet = 4 mg, By Mouth, 2 times a day, # 60 tablet, 2 Refills, Maintenance, 10/07/20 11:44:00 EDT, Tablet, [facility] #[id number], Partial fill upon patient request if the prescription is fora schedule II opioid drug., 177.8, cm, 08/08/20 11:... Start Date: 10/07/20 Stop Date: 01/05/21 Status: Ordered lisinopril 20 mg oral tablet 20 mg, 1, tablet, By Mouth, Daily, # 90 tablet, Refills 0, Tot. Refills 0, Maintenance, 05/12/20 9:54:00 EST, Route to Pharmacy Electronically, [facility] #[id number], Partial fill upon patient request if the prescription is for a schedule II opi... Start Date: 05/12/20 Stop Date: 08/10/20 Status: Ordered metFORMIN 1000 mg oral tablet 1 tablet = 1,000 mg, By Mouth, 2 times a day, # 60 tablet, 0 Refills, Maintenance, 03/15/20 12:57:00 EST, Tablet, [facility], Partial fill upon patient request, 178, cm, 03/15/20 11:15:00 EST, Height, 105, kg, 03/12/20 6:12:00 EST, Dry W... Start Date: 03/15/20 Status: Ordered ofloxacin 0.3% otic solution See Instructions, 5 drops Right ear once daily x 7 days, # 10 mL, Refills 0, Tot. Refills 0, Maintenance, 03/15/20 14:25:00 EST, Instructions Replace Required Details, Route to Pharmacy Electronically, [facility], Partial fill upon patie... Start Date: 03/15/20 Status: Ordered oxyCODONE 5 mg oral tablet 5 mg, 1, tablet, By Mouth, 5 times a day, COMMERCIAL COLLECTIONS DRIVER checked., # 140 tablet, Refills 0, Tot. Refills 0, Maintenance, 08/09/20 15:20:00 EDT, Route to Pharmacy Electronically, [facility] #[id number], Partial fill upon patient request if the prescription i... Start Date: 08/09/20 Status: Ordered Probiotic Formula (Bacillus Coagulans) oral capsule 1 capsule, By Mouth, Daily, # 10 capsule, 0 Refills, Maintenance, 04/14/20 11:39:00 EST, Capsule, [facility] #[id number], Partial fill upon patient request if the prescription is for a schedule II opioid drug., 1 capsule By Mouth Daily, 178, cm,... Start Date: 04/14/20 Status: Ordered simvastatin 40 mg oral tablet 40 mg, 1, tablet, By Mouth, Daily at bedtime, # 30 tablet, Refills 0, Tot. Refills 0, Maintenance, 03/15/20 12:20:00 EST, Route to Pharmacy Electronically, [facility], Partial fill uponpatient request, 178, cm, 03/15/20 11:15:00 EST, He... Start Date: 03/15/20 Status: Ordered Problem List Condition Effective Dates Status Health Status Inform ant Benign hypertension(Confirmed) Active CAD (coronary artery disease)(Confirmed) 1 Active Chronic lower back pain(Confirmed) Active Diabetes mellitus(Confirmed) Active Encephalopathy(Confirmed) Active Dyslipidemia(Confirmed) Active 1angioplasty 2000; 3 stents at [facility] Social History Social History Type Response Smoking Status Smoker, current stat us unknown; Type: Cigarettes; Other: 1/2-1 pk; entered on: 05/10/20 Sex
--- OUTSIDE RECORDS SUMMARY | 2023-04-11 15:20 | XMS_ITS | Continuity of Care Document ---
Author Name Unknown Organization [facility] ter Address [address] [place] [id number]- Care Team Providers Care Customer Technical Services Manager Name Role Phone Luiz SALAS, Sonya Primary Care Physician [phone] Encounter [facility] Date(s): 09/24/21 - 09/26/[address] [address]- Encounter Diagnosis Fall(Final) - 09/22/21 Leukocytosis(Final) - 09/22/21 Neck pain(Final) - 09/22/21 Syncope(Final) - 09/22/21 Discharge Disposition: A-Transfer SNF Attending Physician: Florina Pandey MD Admitting Physician: Tk Amin MD Referring Physician: Not on Staff, Referring [...] 5 Refills, Maintenance, 05/02/21 10:38:00 EST, Tablet, [facility]/pharmacy #[id number], Partial fill upon patient request if the prescription is for a schedule II opioid drug., 178shiv, 04/27/21 4:54:00 ES... Start Date: 05/02/21 Stop Date: 10/29/21 Status: Ordered cephalexin monohydrate 250 mg oral tablet 1 tablet = 250 mg, By Mouth, 4 times a day, for 4 days, # 16 tablet, 0 Refills, Acute 09/30/21 10:42:00 EDT, 09/26/21 10:42:00 EDT, Tablet, [facility], Partial fill upon patient requestif the prescription is for a schedule II opioid corinne... Start Date: 09/26/21 Stop Date: 09/30/21 Status: Ordered cholecalciferol 50,000 intl units oral [...] tablet, Refills 1, Route to Pharmacy Electronically, [facility] [id number], 178, cm, 05/11/21 8:52:00 EST, Height, 81, [...] tablet, By Mouth, 5 times a day, RECORDS MANAGER checked. 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 S/P Elective Coiling of Unruptured Aneurysm with Subsequent Left-Sided Weakness: Acute nonhemorrhagic infarct in the RIGHT posterior frontal lobe: Results Orders for Microbiology Reports Name Date Blood Culture 09/22/21 Blood Culture #2 09/22/21 Microbiology Reports TEST:Blood Culture STATUS:Unauthenticated BODY SITE: SOURCE:Blood COLLECTED DATE/TIME:09/22/21 4:45 AM Blood Culture SPECIMEN DESCRIPTION : BLOOD NOSITE SPECIAL REQUESTS : NONE CULTURE : NO GROWTH 4 DAYS REPORT STATUS : PRELIMINARY REPORT TEST:Blood Culture, Second Order STATUS:Unauthenticated BODY SITE: SOURCE:Blood COLLECTED DATE/TIME:09/22/21 4:45 AM Blood Culture, Second Order SPECIMEN DESCRIPTION : BLOOD NOSITE SPECIAL REQUESTS : NONE CULTURE : NO GROWTH 4 DAYS REPORT STATUS : PRELIMINARY REPORT Vital Signs Most recent to oldest [Reference Range]: 1 2 3 Height 177.8 cm (09/22/21 2:24 PM) 177.8 cm (09/22/21 9:50 AM) 177.8 cm (09/22/21 7:30 AM) Weight 79.6 kg (09/22/21 2:24 PM) 75.5 kg (09/22/21 9:50 AM) 75.5 kg (09/22/21 7:30 AM) Oxygen Saturation [94-100 %] 97 % (09/26/21 8:00 AM) 100 % (09/25/21 8:00 PM) 97 % (09/25/21 3:38 PM) Pulse Rate [55-90 bpm] 58 bpm (09/26/21 8:00 AM) 68 bpm (09/25/21 8:00 PM) 60 bpm (09/25/21 3:38 PM) Body Mass Index [18.5-24.99] 25.18 *H* (09/22/21 2:24 PM) 23.88 (09/22/21 9:50 AM) 23.88 (09/22/21 7:30 AM) Blood Pressure [90-138/55-84 mm Hg] 175/79mm Hg *H* (09/26/21 8:00 AM) 156/71mm Hg *H* (09/25/21 8:00 PM) 165/69mm Hg *H* (09/25/21 3:38 PM) Respiratory Rate [16-30 br/min] 18 br/min (09/26/21 8:00 AM) 19 br/min (09/25/21 8:00 PM) 19 br/min (09/25/21 3:38 PM) Temperature [96.8-100.4 DegF] 97.9 DegF (09/26/21 8:00 AM) 98.4 DegF (09/25/21 8:00 PM) 97.7 DegF (09/25/21 3:38 PM) Mode of Delivery (Oxygen) Room air (09/26/21 8:00 AM) Room air (09/25/21 8:00 PM) Room air (09/25/21 3:38 PM) Blood pressure sites Arm, right (09/26/21 8:00 AM) Arm, right (09/25/21 8:00 PM) Arm, right (09/24/21 9:26 PM) Temperature Route Oral (09/26/21 8:00 AM) Oral (09/25/21 8:00 PM) Oral (09/25/21 3:38 PM) Dry Weight 79.5 kg (09/22/21 2:24 PM) Weight Obtained Via Patient/family state d (09/22/21 4:33 AM) Social History Social History Type Response Smoking Status Smoker, current stat us unknown; Type: Cigarettes; Other: 12-1 pk; entered on: 05/10/20 Sex
--- OUTSIDE RECORDS SUMMARY | 2023-04-11 15:20 | XMS_ITS | Continuity of Care Document ---
Author Name Unknown Organization [facility] Address [address] [place] [id number] Care Team Providers Care Planing Machine Operator Name Role Phone Luiz SALAS, Sonya Primary Care Physician [phone] Encounter [facility] Date(s): 10/19/22 - 10/26/[address] [address]- Encounter Diagnosis Chest pain(Final) - 10/19/22 Discharge Disposition: A-Transfer SNF Attending Physician: Joshua Elena MD Admitting Physician: Brennan SAVAGE, kT [place] Referring Physician: Not on Staff, Referring MD [...] Given Patient Refuses 1Result Comment: [facility]: [phone] Medications Acetaminophen Tablet 650 mg, Tablet, By Mouth, Every 4 hours, PRN for Pain , Mild, Temperature Greater than 100.5, Routine, 10/19/22 13:22:00 EDT Start Date: 10/19/22 Stop Date: 10/27/22 Status: Discontinued albuterol-ipratropium 3 mg-0.5 mg/3 ml inhalation solution [...] 1 Refills, Maintenance, 07/31/22 13:23:00 EDT, [facility], 178, cm, 07/23/22 11:32:00 EDT, Height, 72.5, kg, 03/08/22 4:29:00 EST, Dry Weight Start Date: 07/31/22 Status: Ordered atorvastatin 40 mg oral tablet 1 tablet, By Mouth, Daily at bedtime, # 28 tablet, 5 Refills, Maintenance, 07/31/22 13:23:00 EDT, [facility], 178, cm, 07/23/22 11:32:00 EDT, Height, [...] 12:43:00 EDT, Route to Pharmacy Electronically, [facility], 178, cm, 07/23/22 11:32:00 EDT, Height, 72.5, kg, 03/08/22 4:29:00 EST, Dry Weight Start Date: 08/01/22 Status: Ordered depends xl depends xl, See [...] 0 Refills, Maintenance, 10/25/22 9:55:00 EDT, [facility], 178, cm, 10/25/22 7:25:00 EDT, Height, 79.5, kg, 10/20/22 13:34:00 EDT, Dry Weight Start Date: 10/25/22 Status: Ordered large pull ups large pull ups, See Instructions, # 120 each, Refills 11, Tot. Refills 11, Maintenance, DX: incontinence N39.46, 02/09/22 14:03:00 EDT, Supply Start Date: 02/09/22 Status: Ordered lisinopril 5 mg oral tablet 5 mg, Tablet, By Mouth, 10/26/22 9:00:00 EDT Start Date: 10/26/22 Stop Date: 10/26/22 Status: Completed lisinopril 5 mg oral tablet 1, tablet, [...] 0 Refills, Maintenance, 10/25/22 9:55:00 EDT, [facility], 178, cm, 10/25/22 7:25:00 EDT, Height, [...] 1 Refills, Maintenance, 07/31/22 13:26:00 EDT, [facility], 178, cm, 07/23/22 11:32:00 EDT, Height, [...] 0 Refills, Maintenance, 10/24/22 19:19:00 EDT, [facility], 178, cm, 10/24/22 13:06:00 EDT, Height, 79.5, kg, 10/20/22 13:34:00 EDT, Dry Weight Start Date: 10/24/22 Status: Ordered Vitamin D3 50,000 intl units oral capsule 1 capsule, By Mouth, Every week, # 12 capsule, 0 Refills, Maintenance, 10/25/22 12:36:00 EDT, [facility], 178, cm, 10/25/22 7:25:00 EDT, Height, [...] Confirmed Active 1angioplasty 2000; 3 stents at [facility] 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 S/P Elective Coiling of Unruptured Aneurysm with Subsequent Left-Sided Weakness: Acute nonhemorrhagic infarct in the RIGHT posterior frontal lobe: Results Radiology Reports * Exam Date Time Procedure Performing Provider Status 10/19/22 8:[address] Cervical Spine W/O Contrast Rocky Sam; Auth (Verified) Notes: (CT Cervical Spine W/O Contrast) Reason For Exam: Neck trauma, dangerous injury mechanism;Other: RESULT: CT Cervical Spine W/O Contrast CT Head/Brain W/O Contrast, CT Cervical Spine W/O Contrast INDICATION: Hx of Present Illness: Brought in by EMS after tripping and falling on sidewalk 20 minutes prior to arrival; frequent falls recently; denies LOC; takes blood thinner; GCS 15; Reason: Trauma; Fall from standing; Clinical Question(s): Subarachnoid Hemorrhage; Order Comment: TECHNIQUE: Noncontrast head CT using axial technique was reconstructed in axial and coronal planes.Noncontrast spiral CT through the cervical spine was formatted in 3 planes. Automatic tube modulation was used for the cervical spine and iterative dose reconstruction was used for both the head and cervical spine to optimize scan parameters and image quality. CTDIvol Body: 12.40 mGy, DLP Body: 325 mGy*cm. CTDIvol Head: 38.80 mGy, DLP Head: 672 mGy*cm. COMPARISON: 04/01/2022 and 01/10/2022 FINDINGS: Right frontal and temporal lobe encephalomalacia is unchanged. Additional periventricular and subcortical white matter disease is unchanged. 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 No evidence of intracranial hemorrhage. No intra or extra-axial mass. No evidence of calvarial fracture. No evidence of cervical spine fracture. Degenerative changes in the cervical spine are stable. IMPRESSION: No acute abnormality of the head or cervical spine. WSN: [id number] Ordering Physician: Rocael Ruiz Dictated By: Daljit Jacobson MD Dictated Date/Time: 10/19/22 9:11 am Reviewed By: Daljit Jacobson MD Signed By: Daljit Jacobson MD Signed Date/Time: 10/19/22 9:11 am Transcribed By: ANDREAS Transcribed Date/Time: 10/19/22 9:04 am * Exam Date Time Procedure Performing Provider Status 10/19/22 8:[address] Head/Brain W/O Contrast Shavonne Sam; Auth (Verified) Notes: (CT Head/Brain W/O Contrast) Reason For Exam: Fall from standing;Trauma RESULT: CT Head/Brain W/O Contrast CT Head/Brain W/O Contrast, CT Cervical Spine W/O Contrast INDICATION: Hx of Present Illness: Brought in by EMS after tripping and falling on sidewalk 20 minutes prior to arrival; frequent falls recently; denies LOC; takes blood thinner; GCS 15; Reason: Trauma; Fall from standing; Clinical Question(s): Subarachnoid Hemorrhage; Order Comment: TECHNIQUE: Noncontrast head CT using axial technique was reconstructed in axial and coronal planes.Noncontrast spiral CT through the cervical spine was formatted in 3 planes. Automatic tube modulation was used for the cervical spine and iterative dose reconstruction was used for both the head and cervical spine to optimize scan parameters and image quality. CTDIvol Body: 12.40 mGy, DLP Body: 325 mGy*cm. CTDIvol Head: 38.80 mGy, DLP Head: 672 mGy*cm. COMPARISON: 04/01/2022 and 01/10/2022 FINDINGS: Right frontal and temporal lobe encephalomalacia is unchanged. Additional periventricular and subcortical white matter disease is unchanged. 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 No evidence of intracranial hemorrhage. No intra or extra-axial mass. No evidence of calvarial fracture. No evidence of cervical spine fracture. Degenerative changes in the cervical spine are stable. IMPRESSION: No acute abnormality of the head or cervical spine. WSN: [id number] Ordering Physician: Rocael Ruiz Dictated By: Daljit Jacobson MD Dictated Date/Time: 10/19/22 9:11 am Reviewed By: Daljit Jacobson MD Signed By: Daljit Jacobson MD Signed Date/Time: 10/19/22 9:11 am Transcribed By: ANDREAS Transcribed Date/Time: 10/19/22 9:04 am * Exam Date Time Procedure Performing Provider Status 10/19/22 8:04 AM Hand Min 3 Views Right Caroline Osborn; Auth (Verified) Notes: (Hand Min 3 Views Right) Reason For Exam: Fall from standing w/ right hand pain;Trauma RESULT: Hand Min 3 Views Right Hand Min 3 Views Right, 3 views Hx of Present Illness: Brought in by EMS after tripping and falling on sidewalk 20 minutes prior toarrival; frequent falls recently; denies LOC; takes blood thinner; GCS 15; Reason: Trauma; Fall from standing w right hand pain; Clinical Question(s): Fracture COMPARISON: None FINDINGS: No evidence of acute fracture. Possible old boxer type fracture fifth metacarpal. Additional short metacarpals. Degenerative changes at the second DIP joint IMPRESSION: No acute findings. Short metacarpals. Differential includes pseudohyperparathyroidism and congenital causes. These findings were not present in the left hand from 02/20/2005 Other chronic findings are outlined above WSN: [id number] Ordering Physician: Rocael Ruiz Dictated By: Daljit Jacobson MD Dictated Date/Time: 10/19/22 8:13 am Reviewed By: Daljit Jacobson MD Signed By: Daljit Jacobson MD Signed Date/Time: 10/19/22 8:13 am Transcribed By: ANDREAS Transcribed Date/Time: 10/19/22 8:08 am * Exam Date Time Procedure Performing Provider Status 10/19/22 8:04 AM Chest 2 Views Frontal and Lat Mike Cancino; Zarina (Verified) Notes: (Chest 2 Views Frontal and Lat) Reason For Exam: Shortness of Breath, Fever;Other: RESULT: Chest 2 Views Frontal and Lat Chest 2 Views Frontal and Lat HX OF PRESENT ILLNESS: Brought in by EMS after tripping and falling on sidewalk 20 minutes prior toarrival; frequent falls recently; denies LOC; takes blood thinner; GCS 15; Reason: Shortness of Breath, Fever; Clinical Question(s): Pneumonia / Pneumonia COMPARISON: 10/18/2022 FINDINGS: LINES AND TUBES: None. LUNGS AND PLEURA: Clear lungs. Normal pulmonary vascularity. No pleural effusion. No pneumothorax. HEART, MEDIASTINUM AND MAHESH: Heart is normal in size. Normal mediastinal and hilar contour. BONES AND SOFT TISSUES: No acute abnormality. IMPRESSION: No evidence of acute abnormality. WSN: [id number] Ordering Physician: Rocael Ruiz Dictated By: Jose Vasquez MD Dictated Date/Time: 10/19/22 8:06 am Reviewed By: Jose Vasquez MD Signed By: Jose Vasquez MD Signed Date/Time: 10/19/22 8:06 am Transcribed By: ANDREAS Transcribed Date/Time: 10/19/22 8:05 am Vital Signs Most recent to oldest [Reference Range]: 1 2 3 Height 178 cm (10/26/22 2:30 PM) 178 cm (10/26/22 7:32 AM) 178 cm (10/26/22 1:10 AM) Weight 74.7 kg (10/26/22 6:02 AM) 77.5 kg (10/25/22 5:03 AM) 76.2 kg (10/24/22 5:22 AM) Oxygen Saturation [94-100 %] 99 % (10/26/22 2:30 PM) 100 % (10/26/22 7:32 AM) 98 % (10/26/22 1:10 AM) Pulse Rate [55-90 bpm] 80 bpm (10/26/22 2:30 PM) 60 bpm (10/26/22 7:32 AM) 72 bpm (10/26/22 1:10 AM) Body Mass Index [18.5-24.99 kg/m2] 23.89 kg/m2 (10/20/22 1:34 PM) Blood Pressure [90-138/55-84 mm Hg] 129/61mm Hg (10/26/22 2:30 PM) 125/61mm Hg (10/26/22 9:35 AM) 125/61mm Hg (10/26/22 7:32 AM) Respiratory Rate [16-30 br/min] 18 br/min (10/26/22 2:30 PM) 18 br/min (10/26/22 10:40 AM) 18 br/min (10/26/22 7:32 AM) Temperature [96.8-100.4 DegF] 98.1 DegF (10/26/22 2:30 PM) 98.0 DegF (10/26/22 7:32 AM) 97.3 DegF (10/26/22 1:10 AM) Mode of Delivery (Oxygen) Room air (10/26/22 2:30 PM) Room air (10/26/22 7:32 AM) Room air (10/26/22 1:10 AM) Blood pressure sites Arm, right (10/26/22 2:30 PM) Arm, left (10/26/22 7:32 AM) Arm, left (10/26/22 1:10 AM) Temperature Route Oral (10/26/22 2:30 PM) Temporal (10/26/22 7:32 AM) Temporal (10/26/22 1:10 AM) Dry Weight 79.5 kg (10/20/22 1:34 PM) 80 kg (10/19/22 6:26 PM) 80 kg (10/19/22 3:33 PM) Weight Obtained Via Bed scale (10/26/22 6:02 AM) Bed scale (10/25/22 5:03 AM) Bed scale (10/24/22 5:22 AM) Dry Weight Obtained Via Patient/family stated (10/19/22 6:12 AM) Social History Social History Type Response Smoking Status 10 or more cigarette s (1/2 pack or more)/day in last 30 days; Interested in cessation: No; Patient wants NRT during admission Yes; Tobacco use times per day: 1PPD; Number of years: 53; Total pack years: 53; Started at age: 13; entered on: 03/08/22 Sex Admission evaluation note * [place] Cos[place]: PERFORM Event Display: Admission Note Authored Date: [id number] Patient: ??JOHN SANDHU ? Age:??67 Years?Sex:??Male?:??1955?? Chief Complaint/Reason for Consultation Fall History of Present Illness 67-year-old male??with history of CVA, COPD, CAD status post [place], dementia, diabetes, neuropathy, hypertension presents with a fall??and right hand pain. ??Patient also complains??of??central chest pain??that is nonexertional and does not radiate??described as a sharp pain and it is tender to touch.?? He is also had??some shortness of breath.?? In the emergency department his EKG was nonischemic.?? Troponin was indeterminant and he was admitted for ACS rule out.?? He was found to be wheezy and rhonchorous so he was treated for COPD. ??Imaging was negative for any acute fracture. ??During my assessment he has no physical complaints. At current time, patient denies any??chest pain, shortness of breath, diaphoresis, nausea, vomiting, presyncope or syncope. Review of Systems CONSTITUTIONAL: ??Denies any fever, chills, changes to weight or fatigue. EYES: Denies any changes to vision, burning or diplopia. HEENT: Denies any PETE, nasal d/c, nose bleeds, changes to voice, vertigo, photophobia, hearing changes or dental problems. CV:??See HPI. PULM: Denies any SOB, wheezing, cough or production of phlegm. ABD: Denies any abdominal pain, N/V/D, heartburn, PRBPR, melena, or changes to bowel habits. : Denies any changes to frequency. ??Denies dysuria, urgency, straining, hematuria, incontinence.? MS: See HPI NEURO: Denies any weakness, numbness, changes to speech confusion or memory loss. SKIN: Denies any rashes or lesions. ?? PSYCH: Denies any depression or anxiety. SIGECAPS negative. FUNCTIONAL: At baseline the patient is able to??ambulate independently Objective Vital Signs?? Temperature: 98.2 DegF (10/19/22 18:26:00) Temperature Route: Oral (10/19/22 18::00) Pulse Rate: 61 bpm (10/19/22 18::) Respiratory Rate: 20 br/min (10/19/22 18::00) Systolic Blood Pressure:??151 mm Hg??High (10/19/22 18::00) Diastolic Blood Pressure: 83 mm Hg (10/19/22 18::00) Blood pressure sites: Arm, right (10/19/22 15:33:00) Mean Arterial Pressure: 106 mm Hg (10/19/22 18::00) Pulse Pressure: 68 mm Hg (10/19/22 18:26:00) Oxygen Saturation: 99 % (10/19/22 18::00) Mode of Delivery (Oxygen): Room air (10/19/22 18:26:00) Early Warning Score: 0 (10/19/22 18:27:01) ? Physical Exam General:??67-year-old male??lies in bed comfortably in no acute distress HEENT: NCAT, moist oral mucosa, good dentition, oropharynx without erythema Card: RRR no murmur, non displaced PMI, no JVD, 2+ radial pulse B/L.?tenderness to palpation of the anterior chest wall Resp: CTA B/L, no wheezing, rales, ronchi Abdomen: soft and non tender, bowel sounds WNL Extremities: no pitted edema B/L lower extremities Skin: Without rashes or lesions, good turgor Hem/Lymph: without bruising or lymphadenopathy Psych: appropriate affect Neuro: A&OX3, no focal motor deficits Assessment/Plan 67-year-old male??with history of CVA, COPD, CAD status post [place], dementia, diabetes, neuropathy, hypertension presents with a fall??and right hand pain. ?? Chest pain (R07.9):??Chest pain is atypical. It is nonexertional and reproducible on exam. Less concern for ACS. Troponin??flat,??EKG nonischemic. We will monitor on telemetry overnight ?? Fall (W19.XXXA):??Patient complaining of some right hand pain. ??Thankfully no fractures on??x-ray.??Can use Tylenol for pain. ??Patient will need to be evaluated by PT ?? COPD mixed type (J44.9):??Appears to be at baseline. We will use as needed DuoNebs ?? History of CVA (cerebrovascular accident) (Z86.73):??Continue aspirin, Plavix, statin ?? Diabetes (E11.9):??On metformin and glimepiride??outpatient. We will use sliding scale while inpatient ?? Neuropathy (G62.9):??Continue pregabalin ?? Anxiety and depression (F41.9):??Continue sertraline ?? GERD (gastroesophageal reflux disease) (K21.9):??Continue pantoprazole ?? Hypertension (I10):??Continue lisinopril ?? VTE Prophylaxis:??Pneumoboots ?VTE Prophylaxis Assessment:??VTE Prophylaxis Ordered ?? Code Status:??Presumed full ?Order Code Status:??Code Status Ordered ?? Ongoing Medical Necessity:??ACS rule out, PT eval ?? Tobacco Use Treatment:??Smokes cigarettes but does not want a patch.?I encouraged cessation but he does not want to quit ?? Discharge Planning:??Likely home tomorrow ?? Total time spent on chart review,??medication reconciliation, direct patient care, documentation: 76 minutes Histories Allergies Allergies ?(Active and Proposed Allergies Only) Other Food Allergy? (Severity: Unknown severity, Onset: Unknown) ?Reactions: N&V - Nausea and vomiting ?Comments: Calf Liver sulfa drugs? (Severity: Unknown severity, Onset: Unknown) penicillin? (Severity: Unknown severity, Onset: Unknown) ?Comments: difficulty breathing/swollen lips gabapentin? (Severity: Moderate, Onset: Unknown) ?Reactions: Swelling ? Past Medical History/Problem List Active Problems??(12) Acute ischemic stroke Benign hypertension CAD (coronary artery disease) Chronic lower back pain COPD without exacerbation Current smoker Diabetes mellitus Encephalopathy Frequent falls Macrocytic anemia CLEOPATRA on CPAP Vitamin B12 deficiency ? Past Surgical History Cerebral angiogram, coil right MCA aneurysm: 11/07/20 ? Social History Alcohol Details:??Use: Past. ??Frequency: 3-5 times per week. ??Type: Liquor. ??Other: quitr 2020. Details:??Use: Never. Employment/School Details:??Status: Disabled. Details:??Status: Disabled. ??Other: ssdi. Exercise Details:??Self assessment: Poor condition. ??Regular exercise: No. Home/Environment Details:??Living situation: Home with assistance. ??Lives with: Significant other, montse ??dogs 2 ??5 cats. ??CPAP/BiPAP, Glucose monitoring, Walker/Cane Home equipment:. Nutrition/Health Details:??Diet: Regular. ??Other: no candy occ cupcake. Sexual Details:??Sexually involved in last 6 months: No. ??Gender identity: Identifies as male. ??Self described orientation: Straight or heterosexual. ??Preferred pronoun: He/him. ??Ever been sexually involved? Yes. ??Gender of partner(s): Female. Substance Abuse Details:??Use: Never. ??Other: occ. Tobacco Details:??Use: 10 or more cigarettes (1/2 pack or more)/day in last 30 days. ??Interested in cessation: No. ??Yes, Tobacco use times per day: 1PPD. ??53 Number of years:. ??Total pack years: 53. ??Started at age: 13 Years. Electronic Cigarette/Vaping Details:??Electronic Cigarette Use: Never. ? Family History Mother (): Alzheimer's disease Father (): Cancer; Heart attack ? Medications Home Medications Ascorbic Acid (Vitamin C 500 mg oral tablet)?1?tab(s)?By Mouth?Daily Aspirin (Aspirin Low Dose 81 mg oral tablet, chewable)?1?tab(s)?By Mouth?Daily Atorvastatin (atorvastatin 40 mg oral tablet)?1?tab(s)?By Mouth?Daily at bedtime Calcium Carbonate (calcium carbonate 500 mg (200 mg elemental calcium) oral tablet, chewable)?500?Milligram?1?tablet?Chew?3 times a day?as needed?as needed for dyspepsia Cholecalciferol (Vitamin D3 50,000 intl units oral capsule)?1?capsule?By Mouth?Every week Clopidogrel (clopidogrel 75 mg oral tablet)?1?tablet?By Mouth?Daily Cyanocobalamin (cyanocobalamin 1000 mcg oral tablet)?1,000?Microgram?1?tablet?By Mouth?Daily Durable Medical Equipment (large pull ups)?See Instructions?DX: incontinence N39.46 Durable Medical Equipment (depends xl)?See Instructions?DX: incontinence N39.46 Folic Acid (folic acid 1 mg oral tablet)?1?Milligram?1?tablet?By Mouth?Daily Glimepiride (glimepiride 4 mg oral tablet)?1?tab(s)?By Mouth?2 times a day Lisinopril (lisinopril 5 mg oral tablet)?1?tablet?By Mouth?Daily Magnesium Oxide (magnesium oxide 400 mg oral tablet)?1?tab(s)?By Mouth?Daily?for 30?Days Metformin (metFORMIN 1000 mg oral tablet)?1?tab(s)?By Mouth?2 times a day Nicotine (nicotine 21 mg/24 hr transdermal film, extended release)?1?patch(es)?Topically?Daily Pantoprazole (pantoprazole 40 mg oral delayed release tablet)?1?tab(s)?By Mouth?Daily Pregabalin (pregabalin 25 mg oral capsule)?1?capsule?25?Milligram?By Mouth?2 times a day?for 30?Days Sertraline (sertraline 25 mg oral tablet)?1?tab(s)?By Mouth?Daily Thiamine (Vitamin B1 100 mg oral tablet)?1?tablet?By Mouth?Daily ? Results Recent Labs BLOOD COUNT & DIFF WBC 7.2 k/mm3 ()?? 10/18/2022 21:30 RBC 4.49 m/mm3 (Low)?? 10/18/2022 21:30 Hgb 14.4 Gm/dL ()?? 10/18/2022 21:30 Hct 43.4 % ()?? 10/18/2022 21:30 MCV 96.7 femtoliters (High)?? 10/18/2022 21:30 MCH 32.1 pg ()?? 10/18/2022 21:30 MCHC 33.2 g/dL ()?? 10/18/2022 21:30 Platelet Count 250 k/mm3 ()?? 10/18/2022 21:30 RDW-SD 42.9 femtoliters ()?? 10/18/2022 21:30 MPV 8.6 femtoliters (Low)?? 10/18/2022 21:30 Nucleated RBC (Automated) 0.0 #/100 WBC'S ()?? 10/18/2022 21:30 Abs. NRBC 0.0 k/mm3 ()?? 10/18/2022 21:30 Abs. Neut 4.5 k/mm3 ()?? 10/18/2022 21:30 Abs. Lymph 2.0 k/mm3 ()?? 10/18/2022 21:30 Abs. Polk 0.6 k/mm3 ()?? 10/18/2022 21:30 Abs. Eo 0.1 k/mm3 ()?? 10/18/2022 21:30 Abs. Baso 0.0 k/mm3 ()?? 10/18/2022 21:30 Neut % 62.9 % ()?? 10/18/2022 21:30 Lymph % 27.4 % ()?? 10/18/2022 21:30 Polk % 7.6 % ()?? 10/18/2022 21:30 Eos % 1.4 % ()?? 10/18/2022 21:30 Baso % 0.6 % ()?? 10/18/2022 21:30 Imm Gran 0.1 % ()?? 10/18/2022 21:30 Abs. Imm Gran 0.0 k/mm3 ()?? 10/18/2022 21:30 ?? CARDIAC Nt-Probnp 142 pg/mL (High)?? 10/18/2022 21:30 High Sensitivity Troponin (HSTnT) 22 ng/L (High)?? 10/19/2022 15:56 ?? CHEM GENERAL Sodium 142 mmol/L ()?? 10/18/2022 21:30 Potassium 4.2 mmol/L ()?? 10/18/2022 21:30 Chloride 103 mmol/L ()?? 10/18/2022 21:30 Bicarbonate Level 27 mmol/L ()?? 10/18/2022 21:30 Anion Gap 12 ()?? 10/18/2022 21:30 Glucose Level 115 mg/dL (High)?? 10/18/2022 21:30 Glucose, POC 147 mg/dL (High)?? 10/19/2022 13:20 BUN 11 mg/dL ()?? 10/18/2022 21:30 Creatinine-Blood 0.8 mg/dL ()?? 10/18/2022 21:30 Estimated GFR Creatinine 100 ML/MIN/1.73 M2 ()?? 10/18/2022 21:30 Calcium 9.8 mg/dL ()?? 10/18/2022 21:30 ?? HEME OTHER Hold Blue Top SPECIMEN DISCARDED AFTER 4 HOURS. ()?? 10/18/2022 21:30 ?? URINE OTHER Est Creatinine Clearance 82.38 mL/min ()?? 10/18/2022 23:05 ?? VIROLOGY COVID-19 by RT-PCR NEGATIVE ()?? 10/19/2022 14:20 ?Reason For Exam Fall from standing;Trauma ?? RESULT: CT Head/Brain W/O Contrast CT Head/Brain W/O Contrast, CT Cervical Spine W/O Contrast? IMPRESSION: ?? No acute abnormality of the head or cervical spine. EKG study * Event Display: ECG 12-Lead Authored Date: Please click on pdf link to open report * Event Display: ECG 12-Lead Authored Date: Ventricular Rate: 72 BPM Atrial Rate: 72 BPM P-R Interval: 156 ms QRS Duration: 134 ms Q-T Interval: 412 ms QTC Calculation(Bazett): 451 ms P [place]: 103 degrees R [place]: 70 degrees T [place]: 136 degrees Sinus rhythm with Premature atrial complexes Right bundle branch block Lateral infarct , age undetermined Abnormal ECG When compared with ECG of 18-OCT-2022 20:03, MANUAL COMPARISON REQUIRED, DATA IS UNCONFIRMED Confirmed by DEMETRIUS TORO MD ([id number]) on 10/24/2022 10:21:35 AM [place]: EDMETRIUS TORO MD Cardiology * Event Display: Cardiac Rhythm Strips Authored Date: * Event Display: Cardiac Rhythm Strips Authored Date: Hospital Progress note * Nati Leroy RN: PERFORM, SIGN, VERIFY Event Display: Progress Note Hospital Authored Date: [id number] Patient: JOHN SANDHU Age: 67 years Sex: Male : 1955 Associated Diagnoses: None Author: Nati Leroy RN Findings Problem Related to Alteration in Cardiac Function (new) : Alteration in Cardiac Function/new 10/26/2022 12:00 EDT Alteration in Cardiac Status Related to Chest pain Goals & Outcomes, Cardiac Status Pt will resume/maintain adequate cardiac output, Pt will resume/maintain adequate hemodynamic status, Pt will resume/maintain adequate respiratory function Cardiac Interventions Implemented Assess/monitor cardiac status, Assess/monitor neuro status, Assess/monitor respiratory status BH Goals/Interventions, Cardiac Yes Cardiac, Problem Start 10/20/2022 23:59 Reviewed Plan with, Cardiac Status Patient Patient Progression, Cardiac Status Resolved problem Cardiac, Problem Resolved 10/26/2022 14:21 . Nursing Data Vital Signs : VITAL SIGNS SECTION 10/26/2022 7:32 EDT Early Warning Score 0.00 10/26/2022 7:32 EDT Temperature 98.0 DegF Temperature Route Temporal Pulse Rate 60 bpm Respiratory Rate 18 br/min Systolic Blood Pressure 125 mm Hg Diastolic Blood Pressure 61 mm Hg Blood pressure sites Arm, left Mean Arterial Pressure 82 mm Hg Pulse Pressure 64 mm Hg Oxygen Saturation 100 % Mode of Delivery (Oxygen) Room air . Narrative/Incidental John complains of pain in his feet, PRN Tylenol given with good effect. Incontinent of urine, brief on. Report called to discharge unit. Transported via hospital transport. Plan to discharge to rehab around 4pm. All belongings sent with patient. . Discharge Information Case Management Discharge Plan : Case Management Discharge Plan Data 10/24/2022 13:03 EDT Discharge Level of Care at Discharge nursing home facility Discharge Nursing Homes/Rehab Facilities [facility] Discharge Transportation Arranged [facility] Ron Zepeda [facility] [id number] [phone] Discharge Arranged Transport Date/Time 10/26/2022 16:00 (Modified) Mode of Transportation Arranged Chair Van Agency Transfusion Nurse #1 Intake Service Categories #1 Occupational Therapy, Physical Therapy, Assisted Service Comments #1 You are being discharged to rehab. Name of Person Notified of Transfer [facility] Discharge : Rehab Discharge Index 10/25/2022 10:43 EDT Comments on treatment indicated adls fucnlt mob safety pt edu endurance Full chart review completed Yes Hospital course 67 y/o M history of CVA, COPD, CAD status post [place], dementia, diabetes, neuropathy, hypertension presents with a fall and right hand pain 10/25/2022 9:45 EDT Walker: distance 20-50 10/24/2022 10:25 EDT Walker: distance >50 10/22/2022 15:02 EDT Cane: distance >50 10/21/2022 12:11 EDT Comments on treatment indicated 67 y/o M history of CVA, COPD, CAD status post [place], dementia, diabetes, neuropathy, hypertension presents with a fall and right hand pain. WBAT Skilled PT for therex, transfers, amb c SC, stairs. rec home c services c family support Cane: distance >50 Distance pt will ambulate >70 ft c SC Full chart review completed Yes Hospital course see comment Other findings Pt is a moderate complexity evaluation as circumstances leading to hospitilization impact POC and functional mobility. Plan of care PT Gait training, Transfer training, Therapeutic exercise, Functional Activities, Balance training, Neuromuscular education * Isidra Peter LPN: PERFORM, SIGN, VERIFY Event Display: Progress Note Hospital Authored Date: [id number] Patient: JOHN SANDHU Age: 67 years Sex: Male : 1955 Associated Diagnoses: None Author: Isidra Peter LPN Findings Problem Related to Alteration in Safety : Alteration in Safety/new 10/25/2022 21:00 EDT Alteration in Safety Related to Other: mechanical fall at home Goals & Outcomes, Safety Psychosocial support will be provided to Pt/S.O. as needed, Pt/caregiver will state understanding of plan/goals of care, Pt will remain safe & injury free, Pt/caregiver will be offered appropriate resources & support, Pt/caregiver will verbalize understanding ofthe D/C plan Interventions, Safety Provide teaching as needed BH Goals/Interventions, Safety Yes Safety, Problem Start 10/19/2022 7:00 Reviewed plan with, Safety Patient Patient Progression, Safety Pt progressing according to plan . Nursing Data Cardiac Data. : Cardiac Data. 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 Respiratory/Pulmonary Data. : Respiratory/Pulmonary Data. 10/25/2022 21:00 EDT Respiratory WNL . Vital Signs : VITAL SIGNS SECTION 10/26/2022 1:10 EDT Temperature 97.3 DegF Temperature Route Temporal Pulse Rate 72 bpm Respiratory Rate 18 br/min Systolic Blood Pressure 125 mm Hg Diastolic Blood Pressure 71 mm Hg Blood pressure sites Arm, left Mean Arterial Pressure 89 mm Hg Pulse Pressure 54 mm Hg Oxygen Saturation 98 % Mode of Delivery (Oxygen) Room air 10/25/2022 20:59 EDT Early Warning Score 2.00 10/25/2022 20:50 EDT Early Warning Score 2.00 10/25/2022 20:31 EDT Temperature 97.2 DegF Temperature Route Temporal Pulse Rate 68 bpm Respiratory Rate 20 br/min Systolic Blood Pressure 105 mm Hg Diastolic Blood Pressure 47 mm Hg L Blood pressure sites Arm, left Mean Arterial Pressure 66 mm Hg Pulse Pressure 58 mm Hg Oxygen Saturation 97 % Mode of Delivery (Oxygen) Room air . Evaluation Pt A&OX3, VSS, lung sounds clear, 97% saturation on room air. Normal sinus rhythm on telemetry,pt denies chest pain, pressure dizziness or SOB. OOB 1 assist with walker to bathroom. Educated pt to used call light before getting out of bed, pt needed reminder each time. Pt with bruising to the right arm. Last BM 10/24. All safety measures in placed and call zamudio at bedside.. Discharge Information Case Management Discharge Plan : Case Management Discharge Plan Data 10/24/2022 13:03 EDT Discharge Level of Care at Discharge nursing home facility Discharge Nursing Homes/Rehab Facilities Care [facility] Discharge Transportation Arranged [facility] [address] [place] [address] [phone] Discharge Arranged Transport Date/Time 10/24/2022 16:00 Mode of Transportation Arranged Chair Van Agency Transfusion Nurse #1 Intake Service Categories #1 Occupational Therapy, Physical Therapy, Assisted Service Comments #1 You are being discharged to rehab. Name of Person Notified of Transfer [facility] Discharge : Rehab Discharge Index 10/25/2022 10:43 EDT Comments on treatment indicated adls fucnlt mob safety pt edu endurance Full chart review completed Yes Hospital course 67 y/o M history of CVA, COPD, CAD status post [place], dementia, diabetes, neuropathy, hypertension presents with a fall and right hand pain 10/25/2022 9:45 EDT Walker: distance 20-50 10/24/2022 10:25 EDT Walker: distance >50 10/22/2022 15:02 EDT Cane: distance >50 10/21/2022 12:11 EDT Comments on treatment indicated 67 y/o M history of CVA, COPD, CAD status post [place], dementia, diabetes, neuropathy, hypertension presents with a fall and right hand pain. WBAT Skilled PT for therex, transfers, amb c SC, stairs. rec home c services c family support Cane: distance >50 Distance pt will ambulate >70 ft c SC Full chart review completed Yes Hospital course see comment Other findings Pt is a moderate complexity evaluation as circumstances leading to hospitilization impact POC and functional mobility. Plan of care PT Gait training, Transfer training, Therapeutic exercise, Functional Activities, Balance training, Neuromuscular education * Joshua Elena MD: MODIFY, PERFORM, MODIFY Event Display: Progress Note Hospital Authored Date: Patient: ??JOHN SANDHU ? Age:??67 Years?Sex:??Male?:??1955?? Subjective Patient is seen and examined at bedside. ??Overnight events reviewed. He is alert and answering appropriately. ??Calm and cooperative. Denies any acute complaints. He has generalized weakness. PT and OT reevaluation was done today- Pt would benefit from rehab stay to improve strength, improve balance, improve activity tolerance, dec fall risk.?? Review of Systems A full review of systems was completed and is otherwise negative except as mentioned above. Objective Measurements?? Height: 178 cm (10/25/22) Weight: 77.5 kg (10/25/22) Dry Weight: 79.5 kg (10/20/22) Body Mass Index: 23.89 kg/m2 (10/20/22) ? Vital Signs?? Temperature: 97.9 DegF (10/25/22 07:25:00) Temperature Route: Temporal (10/25/22 07:25:00) Pulse Rate: 69 bpm (10/25/22 07:25:00) Respiratory Rate: 18 br/min (10/25/22 07:25:00) Systolic Blood Pressure:??155 mm Hg??High (10/25/22 09:44:00) Diastolic Blood Pressure: 69 mm Hg (10/25/22 09:44:00) Blood pressure sites: Arm, left (10/25/22 07:25:00) Mean Arterial Pressure: 98 mm Hg (10/25/22 07:25:00) Pulse Pressure: 86 mm Hg (10/25/22 07:25:00) Oxygen Saturation: 100 % (10/25/22 07:25:00) Mode of Delivery (Oxygen): Room air (10/25/22 07:25:00) Early Warning Score: 2 (10/25/22 11:24:18) ? Physical Exam Constitutional: Alert, frail, ??in no distress. Mental Status: Oriented to person, place and time. Head: Normocephalic. Respiratory: Clear to auscultation. No wheezing, rales or rhonchi. Cardiovascular: S1 S2 regular. No murmurs, rubs or gallops. Gastrointestinal: Abdomen soft, non-tender, non-distended. Genitourinary: No costovertebral angle tenderness. Neurologic: . Moves all extremities spontaneously. Sensation intact bilaterally. Skin: No rashes or lesions. No petechiae or purpura.?? Musculoskeletal: No cyanosis or clubbing. No gross deformities. Normal range of motion. _ Inpatient Medications Medications (20) Active SCHEDULED: (11) Aspirin 81 mg EC Tablet (aspirin 81 mg oral delayed release tablet) ??81 mg, By Mouth, Daily Atorvastatin 40 mg Tablet (atorvastatin 40 mg oral tablet) ??40 mg, By Mouth, Daily at bedtime Clopidogrel 75 mg Tablet (clopidogrel 75 mg oral tablet) ??75 mg, By Mouth, Daily Insulin Lispro 100 units/mL Inj (3mL) (Insulin LISPRO Sliding Scale) ??2-10 units, Subcutaneous Injection, 3 times a day before meals Lisinopril 5 mg Tablet (lisinopril 5 mg oral tablet) ??5 mg, By Mouth, Daily NaCl 0.9% Flush 3ml (NaCL 0.9% Flush) ??3 mL, IV Push, Every 8 hours Pantoprazole 40 mg EC Tablet (pantoprazole 40 mg oral delayed release tablet) ??40 mg, By Mouth, Daily Pregabalin 25 mg Capsule (pregabalin 25 mg oral capsule) ??25 mg, By Mouth, 2 times a day Senna Tablet (Senna 8.6 mg oral tablet) ??17.2 mg 2 tablet, By Mouth, Daily Sertraline 25 mg Tablet (sertraline 25 mg oral tablet) ??25 mg, By Mouth, Daily Tamsulosin 0.4 mg Capsule (Flomax 0.4 mg oral capsule) ??0.4 mg, By Mouth, Daily CONTINUOUS: (0) PRN: (9) Acetaminophen 325 mg Tablet (Acetaminophen Tablet) ??650 mg, By Mouth, Every 4 hours Albuterol/Ipratropium Inhalation Dina 3mL (Duoneb Inhalation Solution) ??1 vials, BAND Nebulizer, Every 4 hours Bisacodyl 10 mg Suppository (Bisacodyl Supp) ??10 mg 1 supp, Rectally, Daily Dextromethorphan-Guaifenesin 20 mg-200 mg/10 mL Liqu UD (Robitussin DM Liquid) ??10 mL, By Mouth, Every 4 hours Melatonin 3 mg Tablet (Melatonin Tablet) ??3 mg, By Mouth, Daily at bedtime NaCl 0.9% Flush 3ml (NaCL 0.9% Flush) ??3 mL, IV Push, Every 8 hours Polyethylene Glycol 17 Gm Powder (MiraLax Powder) ??17 Gm 1 pack/packet, By Mouth, Daily Senna 8.6 mg / Docusate 50 mg tablet (Docusate/Senna Tablet) ??1 tablet, By Mouth, 2 times a day Simethicone 80 mg Chewable Tablet (Simethicone Tablet) ??80 mg, Chew, 3 times a day ? Results Recent Labs CHEM GENERAL Glucose, POC 83 mg/dL ()?? 10/25/2022 11:19 ? Assessment/Plan 67-year-old male with history of CVA, COPD, CAD status post NJ, dementia, diabetes, neuropathy, hypertension presents with a fall and right hand pain. CT brain was normal. EKG-no acute changes, troponin was negative. Admitted for mechanical fall.?PT recommending rehab. Insurance??declined-now doing PT??reevaluation/OT and appeal. ?? Fall-mechanical Deconditioning Right hand pain. no fractures on x-ray. Tylenol for pain. PT evaluation??rec rehab [employer] decline rehab approval Spoke with Dr Bell for peer to peer. PT and OT reevaluation was done today- Pt would benefit from rehab stay to improve strength, improve balance, improve activity tolerance, dec fall risk.? COPD mixed type (J44.9): ?Appears to be at baseline. We will use as needed DuoNebs ? Chest pain (R07.9): resolved-atypical non cardiac ?Chest pain is atypical. It is non exertional and reproducible on exam. ?Less concern for ACS. Troponin flat, EKG nonischemic. tele unremarkable ? Constipation ?Had BM now ?Senna 2 tablets daily ?MiraLAX daily ?Bisacodyl suppository as needed ? Lower urinary tract symptoms ?residual more than 500 cc-straight cath times once ?On Flomax ?Outpatient referral ? History of CVA (cerebrovascular accident) (Z86.73): ??Continue aspirin, Plavix, statin ? Diabetes (E11.9): On metformin and glimepiride outpatient. We will use sliding scale while inpatient ? Neuropathy (G62.9): Continue pregabalin ? Anxiety and depression (F41.9): Continue sertraline ? GERD (gastroesophageal reflux disease) (K21.9): Continue pantoprazole ? Hypertension (I10): Continue lisinopril ? VTE Prophylaxis: Pneumoboots ?Code Status:??full ?Diet- Cardiac ?DVT-PCD ?? HCP-Montse updated. ? Note * Viry Zacarias RN: PERFORM Event Display: Discharge/Transfer Note Hospital Authored Date: [id number] Nursing Discharge Note Entered On: 10/26/2022 16:04 EDT Performed On: 10/26/2022 16:04 EDT by Viry Zacarias RN Nursing Discharge Note 2 Discharge Time : 10/26/2022 16:30 EDT Viry Zacarias RN - 10/26/2022 18:00 EDT Discharge Level of Care at Discharge : nursing home facility Discharge Nursing Homes/Rehab Facilities : [facility] Patient Left Unit Via : Ambulance Patient Accompanied Off Unit with : Ambulance/Chair Van Personnel Handover Given to Transport Personnel : Yes DC Instructions Provided & Signed by Pt : No Patient Understands D/C Instructions : Yes Patient Instructions Discharge Signed : No Did Pt have Specialty Bed or Wound Vac : No Viry Zacarias RN - 10/26/2022 16:04 EDT * Joshua Elena MD: PERFORM Event Display: Discharge/Transfer Note Hospital Authored Date: [id number] Patient: ??JOHN SANDHU ? Age:??67 Years?Sex:??Male?:??1955?? Patient Information Discharge Location: Primary Care Physician: Sonya Dee NP Admit Date/Time: 10/19/22 06:00 Discharge Disposition Discharge Disposition: Assisted Facility/Rehab Discharge Diagnosis Anxiety and depression (F41.9) COPD mixed type (J44.9) Chest pain (R07.9) Diabetes (E11.9) Fall (W19.XXXA) GERD (gastroesophageal reflux disease) (K21.9) History of CVA (cerebrovascular accident) (Z86.73) Hypertension (I10) Neuropathy (G62.9) Benign hypertension CAD (coronary artery disease) Chronic lower back pain ?? _ Discharge Medications Albuterol/Ipratropium (albuterol-ipratropium 3 mg-0.5 mg/3 ml inhalation solution)?BAND Nebulizer?Every 4 hours?as needed?Wheezing/Shortness of Breath Ascorbic Acid (Vitamin C 500 mg oral tablet)?1?tab(s)?By Mouth?Daily Aspirin (Aspirin Low Dose 81 mg oral tablet, chewable)?1?tab(s)?By Mouth?Daily Atorvastatin (atorvastatin 40 mg oral tablet)?1?tab(s)?By Mouth?Daily at bedtime Calcium Carbonate (calcium carbonate 500 mg (200 mg elemental calcium) oral tablet, chewable)?500?Milligram?1?tablet?Chew?3 times a day?as needed?as needed for dyspepsia Cholecalciferol (Vitamin D3 50,000 intl units oral capsule)?1?capsule?By Mouth?Every week Clopidogrel (clopidogrel 75 mg oral tablet)?1?tablet?By Mouth?Daily Docusate-Senna (Docusate/Senna Tablet)?1?tab(s)?By Mouth?2 times a day Durable Medical Equipment (large pull ups)?See Instructions?DX: incontinence N39.46 Durable Medical Equipment (depends xl)?See Instructions?DX: incontinence N39.46 Glimepiride (glimepiride 4 mg oral tablet)?1?tab(s)?By Mouth?2 times a day Lisinopril (lisinopril 5 mg oral tablet)?1?tablet?By Mouth?Daily Magnesium Oxide (magnesium oxide 400 mg oral tablet)?1?tab(s)?By Mouth?Daily?for 30?Days Melatonin (melatonin 3 mg oral tablet)?3?Milligram?By Mouth?Daily at bedtime?as needed?Insomnia Metformin (metFORMIN 1000 mg oral tablet)?1?tab(s)?By Mouth?2 times a day Pantoprazole (pantoprazole 40 mg oral delayed release tablet)?1?tab(s)?By Mouth?Daily Pregabalin (pregabalin 25 mg oral capsule)?1?capsule?25?Milligram?By Mouth?2 times a day?for 30?Days Sertraline (sertraline 25 mg oral tablet)?1?tab(s)?By Mouth?Daily Tamsulosin (Flomax 0.4 mg oral capsule)?0.4?Milligram?By Mouth?Daily Thiamine (Vitamin B1 100 mg oral tablet)?1?tablet?By Mouth?Daily ?? Allergies Allergies ?(Active and Proposed Allergies Only) Other Food Allergy? (Severity: Unknown severity, Onset: Unknown) ?Reactions: N&V - Nausea and vomiting ?Comments: Calf Liver sulfa drugs? (Severity: Unknown severity, Onset: Unknown) penicillin? (Severity: Unknown severity, Onset: Unknown) ?Comments: difficulty breathing/swollen lips gabapentin? (Severity: Moderate, Onset: Unknown) ?Reactions: Swelling ? PCP Follow-Up/Heads-Up Please consider Outpatient referral Hospital Course 67-year-old male with history of CVA, COPD, CAD status post NJ, dementia, diabetes, neuropathy, hypertension presents with a fall and right hand pain. CT brain was normal. EKG-no acute changes, troponin was negative. ACS was ruled out. Admitted for mechanical fall.?PT eval is done and recommending rehab.??Discharge delayed because of insurance auth. After insurance approval patient is now being discharge to rehab. Patient denies any acute complaints and feels ready for discharge ?? Assessment and plan while in the hospital ?? Fall-mechanical Deconditioning Right hand pain. no fractures on x-ray. Tylenol for pain. PT evaluation??rec rehab PT and OT reevaluation was done - Pt would benefit from rehab stay to improve strength, improve balance, improve activity tolerance, dec fall risk.? COPD mixed type (J44.9): ?Appears to be at baseline.??Continue home meds ? Chest pain (R07.9): resolved-atypical non cardiac ?Chest pain is atypical. It is non exertional and reproducible on exam. ?Less concern for ACS. Troponin flat, EKG nonischemic. tele unremarkable ? Constipation ?Had BM?Senna 2 tablets daily ?MiraLAX daily ?Bisacodyl suppository as needed ? Lower urinary tract symptoms ?residual more than 500 cc-straight cath times once ?Started Flomax ?Currently asymptomatic and voiding well. Monitor closely at rehab ? History of CVA (cerebrovascular accident) (Z86.73): ??Continue aspirin, Plavix, statin ? Diabetes (E11.9): On metformin and glimepiride outpatient. We will use sliding scale while inpatient ? Neuropathy (G62.9): Continue pregabalin ? Anxiety and depression (F41.9): Continue sertraline ? GERD (gastroesophageal reflux disease) (K21.9): Continue pantoprazole ? Hypertension (I10): Continue lisinopril ?Code Status:??full?? Objective Vital Signs?? Temperature: 98 DegF (10/26/22 07:32:00) Temperature Route: Temporal (10/26/22 07:32:00) Pulse Rate: 60 bpm (10/26/22 07:32:00) Respiratory Rate: 18 br/min (10/26/22 07:32:00) Systolic Blood Pressure: 125 mm Hg (10/26/22 09:35:00) Diastolic Blood Pressure: 61 mm Hg (10/26/22 09:35:00) Blood pressure sites: Arm, left (10/26/22 07:32:00) Mean Arterial Pressure: 82 mm Hg (10/26/22 07:32:00) Pulse Pressure: 64 mm Hg (10/26/22 07:32:00) Oxygen Saturation: 100 % (10/26/22 07:32:00) Mode of Delivery (Oxygen): Room air (10/26/22 07:32:00) Early Warning Score: 0 (10/26/22 11:44:15) ? . Physical Exam Constitutional: Alert, frail, ??in no distress. Mental Status: Oriented to person, place and time. Head: Normocephalic. Respiratory: Clear to auscultation. No wheezing, rales or rhonchi. Cardiovascular: S1 S2 regular. No murmurs, rubs or gallops. Gastrointestinal: Abdomen soft, non-tender, non-distended. Genitourinary: No costovertebral angle tenderness. Neurologic: . Moves all extremities spontaneously. Sensation intact bilaterally. Skin: No rashes or lesions. No petechiae or purpura.?? Musculoskeletal: No cyanosis or clubbing. No gross deformities. Normal range of motion. Pending Results No Pending Results Patient Education Titles Chronic Lung Disease: Tips for Safe Exercise?? Follow-Up Appointments Added Follow Up ?Time Frame ?Comments Luiz SALAS, Sonya?1 week: call to discuss follow up visit Post Discharge Care Activity: Ambulate with assistance ??3 times a day ??unless otherwise specified Code Status: ?? Full Resuscitation Prognosis: Fair Home Health Face to Face ^HomeHealthFTF Results Discharge Labs BLOOD COUNT & DIFF WBC 7.6 k/mm3 ()?? 10/20/2022 07:04 RBC 4.21 m/mm3 (Low)?? 10/20/2022 07:04 Hgb 13.6 Gm/dL (Low)?? 10/20/2022 07:04 Hct 39.3 % (Low)?? 10/20/2022 07:04 MCV 93.3 femtoliters ()?? 10/20/2022 07:04 MCH 32.3 pg ()?? 10/20/2022 07:04 MCHC 34.6 g/dL ()?? 10/20/2022 07:04 Platelet Count 211 k/mm3 ()?? 10/20/2022 07:04 RDW-SD 40.2 femtoliters ()?? 10/20/2022 07:04 MPV 8.5 femtoliters (Low)?? 10/20/2022 07:04 Nucleated RBC (Automated) 0.0 #/100 WBC'S ()?? 10/20/2022 07:04 Abs. NRBC 0.0 k/mm3 ()?? 10/20/2022 07:04 ?? CARDIAC High Sensitivity Troponin (HSTnT) 18 ng/L ()?? 10/19/2022 21:57 ? CHEM GENERAL Sodium 138 mmol/L ()?? 10/20/2022 07:04 Potassium 4.0 mmol/L ()?? 10/20/2022 07:04 Chloride 102 mmol/L ()?? 10/20/2022 07:04 Bicarbonate Level 28 mmol/L ()?? 10/20/2022 07:04 Anion Gap 8 ()?? 10/20/2022 07:04 Glucose, POC 260 mg/dL (High)?? 10/26/2022 11:37 BUN 9 mg/dL ()?? 10/20/2022 07:04 Creatinine-Blood 0.6 mg/dL (Low)?? 10/20/2022 07:04 Estimated GFR Creatinine 107 ML/MIN/1.73 M2 ()?? 10/20/2022 07:04 ? URINE OTHER Est Creatinine Clearance 125.36 mL/min ()?? 10/20/2022 13:39 ? VIROLOGY COVID-19 by RT-PCR NEGATIVE ()?? 10/19/2022 14:20 ? Imaging(s) ?CT Head/Brain W/O Contrast ?? 10/19/2022 08:58??by Daljit Jacobson MD ?RESULT: CT Head/Brain W/O Contrast CT Head/Brain W/O Contrast, CT Cervical Spine W/O Contrast ?? INDICATION: Hx of Present Illness: Brought in by EMS after tripping and falling on sidewalk 20 minutes prior to arrival; frequent falls recently; denies LOC; takes blood thinner; GCS 15; Reason: Trauma; Fall from standing; Clinical Question(s): Subarachnoid Hemorrhage; Order Comment: ?? TECHNIQUE: Noncontrast head CT using axial technique was reconstructed in axial and coronal planes.Noncontrast spiral CT through the cervical spine was formatted in 3 planes. Automatic tube modulation was used for the cervical spine and iterative dose reconstruction was used for both the head and cervical spine to optimize scan parameters and image quality. ? CTDIvol Body: 12.40 mGy, DLP Body: 325 mGy*cm. CTDIvol Head: 38.80 mGy, DLP Head: 672 mGy*cm. ? COMPARISON: 04/01/2022 and 01/10/2022 ?? FINDINGS: ?? Right frontal and temporal lobe encephalomalacia is unchanged. Additional periventricular and subcortical white matter disease is unchanged. ?? 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 ?? No evidence of intracranial hemorrhage. ?? No intra or extra-axial mass. ?? No evidence of calvarial fracture. ?? No evidence of cervical spine fracture. ?? Degenerative changes in the cervical spine are stable. ? IMPRESSION: ?? No acute abnormality of the head or cervical spine. ?CT Cervical Spine W/O Contrast ?? 10/19/2022 08:58??by Daljit Jacobson MD ?Chest 2 Views Frontal and Lat ?? 10/19/2022 08:04??by Jose Vasquez MD ?RESULT: Chest 2 Views Frontal and Lat Chest 2 Views Frontal and Lat ?? HX OF PRESENT ILLNESS: Brought in by EMS after tripping and falling on sidewalk 20 minutes prior toarrival; frequent falls recently; denies LOC; takes blood thinner; GCS 15; Reason: Shortness of Breath, Fever; Clinical Question(s): Pneumonia / Pneumonia ?? COMPARISON: 10/18/2022 ?? FINDINGS: ?? LINES AND TUBES: None. ?? LUNGS AND PLEURA: Clear lungs. Normal pulmonary vascularity. No pleural effusion. No pneumothorax. ?? HEART, MEDIASTINUM AND MAHESH: Heart is normal in size. Normal mediastinal and hilar contour. ?? BONES AND SOFT TISSUES: No acute abnormality. ? IMPRESSION: ?? No evidence of acute abnormality. ?Hand Min 3 Views Right ?? 10/19/2022 08:04??by Daljit Jacobson MD ?RESULT: Hand Min 3 Views Right Hand Min 3 Views Right, 3 views ?? Hx of Present Illness: Brought in by EMS after tripping and falling on sidewalk 20 minutes prior toarrival; frequent falls recently; denies LOC; takes blood thinner; GCS 15; Reason: Trauma; Fall from standing w right hand pain; Clinical Question(s): Fracture ?? COMPARISON: None ?? FINDINGS: ?? No evidence of acute fracture. ?? Possible old boxer type fracture fifth metacarpal. ?? Additional short metacarpals. ?? Degenerative changes at the second DIP joint ? IMPRESSION: ?? No acute findings. ?? Short metacarpals. Differential includes pseudohyperparathyroidism and congenital causes. These findings were not present in the left hand from 02/20/2005 ?? Other chronic findings are outlined above ? 35??minutes spent on discharge * Skylar Mcdermott RN: PERFORM, SIGN, VERIFY Event Display: Case Management Discharge Plan Authored Date: [id number] Patient: JOHN SANDHU Age: 67 years Sex: Male : 1955 Associated Diagnoses: None Author: Skylar Mcdermott RN Discharge Plan Case Management Discharge Plan : Case Management Discharge Plan Data 10/24/2022 13:03 EDT Discharge Level of Care at Discharge nursing home facility Discharge Nursing Homes/Rehab Facilities [facility] Discharge Transportation Arranged [facility] [address] [place] [phone] Discharge Arranged Transport Date/Time 10/26/2022 16:00 (Modified) Mode of Transportation Arranged Chair Van Agency Transfusion Nurse #1 Intake Service Categories #1 Occupational Therapy, Physical Therapy, Assisted Service Comments #1 You are being discharged to rehab. Name of Person Notified of Transfer John Sandhu Montseneli Corral * Rell GARAY, Viry: ANGELLA Event Display: Patient Education/Instruction Authored Date: [id number] Inpatient Adult Discharge Instructions [address] [address] Name: JOHN SANDHU : 1955 Visit: 10/19/2022 06:00:00 Current Date: 10/26/2022 16:05 Account: [id number] Inpatient Adult Discharge Instructions We would like to thank you for allowing us to assist you with your healthcare needs. The following includes patient education materials and information regarding your injury/illness. Our entire staffstrives to provide an excellent experience for our patients and their families. PLEASE ENSURE YOU FOLLOW-UP PER THE INSTRUCTIONS BELOW! ?? YOUR OPINION IS IMPORTANT TO US! Please complete the survey you may receive by mail or email. Your feedback will be used to make improvements to the healthcare experiences of our patients and their families. Surveys are administered by [employer] ?? If further treatment with your primary care physician or another doctor is recommended, it is important for you to keep the appointment. Call your primary care physician or return to the Emergency Department immediately if your condition worsens, fails to improve, or new symptoms develop. If you need to find a doctor, you can call [facility] for a referral at [phone] or toll free at [phone]) or log in to [email or web address].. ?? You can view and manage your care through the patient portal or by using a health care derrick of your choosing. [employer] is a website that allows you to securely view your medical information including your hospital discharge summary, office visit summaries, medications and follow-up visits. You can also request appointments, renew medications, and request access to your medical information using a health care derrick of your choosing, or just ask a question. You can enroll at [email or web address] or register during your next office visit. You have been discharged from [facility], Patient Care Unit: S3. If you have any questions regarding these instructions after you leave, please call us and we will be happy to assist you. [facility] Your Care Team Attending Physician Joshua Elena MD Consulting Providers Charito Martins Discharging Providers Joshua Elena MD Reason for Admission Fall Your Diagnosis Chest pain Fall COPD mixed type History of CVA (cerebrovascular accident) Diabetes Anxiety and depression GERD (gastroesophageal reflux disease) Hypertension Neuropathy Tests Performed Below is a partial list of the tests performed during your hospitalization. You may have had other tests and procedures not included in this list. Please discuss all test results with your provider. BUN CBC COVID-19 (Novel Coronavirus), Rapid PCR Creatinine Electrolytes GLUCOSE POC High??Sensitivity??Troponin T Troponin T, High Sensitivity CT Cervical Spine W/O Contrast CT Head/Brain W/O Contrast XR Chest 2 Views Frontal and Lat XR Hand Min 3 Views Right Primary Care Provider Luiz SALAS, Sonya Advance Directive Health Care Proxy on File Yes - Health Care Proxy Yes - MOLST Discharge Vitals Temperature: 98.1 DegF Height: 178 cm Pulse Rate: 80 bpm Weight: 74.7 kg Respiratory Rate: 18 br/min Body Mass Index: 23.89 kg/m2 Systolic Blood Pressure: 129 mm Hg Body surface area: 1.93 Diastolic Blood Pressure: 61 mm Hg ?? Oxygen Saturation: 99 % ?? Studies Pending All tests and labs ordered during this hospital stay have been completed unless listed below. Please discuss all pending results with your provider listed above in these instructions. ?? No incomplete studies found What to do next Instructions From Your Doctor Discharge Orders Activity:??Ambulate with assistance 3 times a day unless otherwise specified Code Status:?? Full Resuscitation Prognosis:??Fair You Need to Schedule the Following Appointments Follow Up with??Sonya Dee NP When:??Within 1 week: call to discuss follow up visit Where: ?? Discharge Medications JOHN SANDHU :1955 Visit Date:10/19/2022 Medications: Please continue your medications until treatment is completed or stopped by your provider. Medications not listed below should be discontinued. Discuss any questions related to medications with your provider. What How Much When Instructions Next Dose New Albuterol/ Ipratropium (albuterol- ipratropium 3 mg-0.5 mg/ 3 ml inhalation solution) BAND Nebulizer Every 4 hours as needed for Wheezing/Shortness of Breath as needed New Docusate-Senna (Docusate/ Senna Tablet) 1 tab(s) Oral Twice a day 10/26 New Melatonin (melatonin 3 mg oral tablet) 3 Milligram Oral Daily at Bedtime as needed for Insomnia as needed New Tamsulosin (Flomax 0.4 mg oral capsule) 0.4 Milligram Oral Daily 10/27 Unchanged Ascorbic Acid (Vitamin C 500 mg oral tablet) 1 tab(s) Oral Daily 10/27 Unchanged Aspirin (Aspirin Low Dose 81 mg oral tablet, chewable) 1 tab(s) Oral Daily 10/27 Unchanged Atorvastatin (atorvastatin 40 mg oral tablet) 1 tab(s) Oral Daily at Bedtime 10/26 Unchanged Calcium Carbonate (calcium carbonate 500 mg (200 mg elemental calcium) oral tablet, chewable) 1 tab(s) Chew 3 times a day as needed for as needed for dyspepsia as needed Unchanged Cholecalciferol (Vitamin D3 50,000 intl units oral capsule) 1 capsule Oral Every week see instructions Unchanged Clopidogrel (clopidogrel 75 mg oral tablet) 1 tab(s) Oral Daily 10/27 Unchanged Durable Medical Equipment (depends xl) See instructions DX: incontinence N39.46 ?? see instructions Unchanged Durable Medical Equipment (large pull ups) See instructions DX: incontinence N39.46 ?? see instructions Unchanged Glimepiride (glimepiride 4 mg oral tablet) 1 tab(s) Oral Twice a day 10/26 Unchanged Lisinopril (lisinopril 5 mg oral tablet) 1 tab(s) Oral Daily 10/27 Unchanged Magnesium Oxide (magnesium oxide 400 mg oral tablet) 1 tab(s) Oral Daily Duration: 30 Days 10/27 Unchanged Metformin (metFORMIN 1000 mg oral tablet) 1 tab(s) Oral Twice a day 10/26 Unchanged Pantoprazole (pantoprazole 40 mg oral delayed release tablet) 1 tab(s) Oral Daily 10/27 Unchanged Pregabalin (pregabalin 25 mg oral capsule) 1 capsule Oral Twice a day Duration: 30 Days 10/26 Unchanged Sertraline (sertraline 25 mg oral tablet) 1 tab(s) Oral Daily 10/27 Unchanged Thiamine (Vitamin B1 100 mg oral tablet) 1 tab(s) Oral Daily 10/27 Test Results Below is a partial list of the most recent Laboratory test results done prior to this discharge. You may have had other tests and procedures not included in this list. Please discuss all test resultswith your provider. Est Creatinine Clearance - 125.36 mL/min (10/20/2022) BUN (10/20/2022) ???BUN - 9 mg/dL CBC (10/20/2022) ???WBC - 7.6 k/mm3???RBC - 4.21 m/mm3???Hgb - 13.6 Gm/dL???Hct - 39.3 %???MCV - 93.3 femtoliters???MCH - 32.3 pg???MCHC - 34.6 g/dL???Platelet Count - 211 k/mm3???RDW-SD - 40.2 femtoliters???MPV - 8.5 femtoliters???Nucleated RBC (Automated) - 0.0 #/100 WBC'S???Abs. NRBC - 0.0 k/mm3 COVID-19 (Novel Coronavirus), Rapid PCR (10/19/2022) ???COVID-19 by RT-PCR - NEGATIVE Creatinine (10/20/2022) ???Creatinine-Blood - 0.6 mg/dL???Estimated GFR Creatinine - 107 ML/MIN/1.73 M2 Electrolytes (10/20/2022) ???Sodium - 138 mmol/L???Potassium - 4.0 mmol/L???Chloride - 102 mmol/L???Bicarbonate Level - 28 mmol/L???Anion Gap - 8 GLUCOSE POC (10/26/2022) ???Glucose, POC - 260 mg/dL High??Sensitivity??Troponin T (10/19/2022) ???High Sensitivity Troponin (HSTnT) - 30 ng/L Troponin T, High Sensitivity (10/19/2022) ???High Sensitivity Troponin (HSTnT) - 18 ng/L Allergies (NKA means No Known Allergies) gabapentin??(Swelling) Other Food Allergy??(N&V - Nausea and vomiting) penicillin sulfa drugs Problems Active Problems??(12) Acute ischemic stroke?? Benign hypertension?? CAD (coronary artery disease)?? Chronic lower back pain?? COPD without exacerbation?? Current smoker?? Diabetes mellitus?? Encephalopathy?? Frequent falls?? Macrocytic anemia?? CLEOPATRA on CPAP?? Vitamin B12 deficiency?? Education Materials Below is the list of Educational Leaflet Providered with your Discharge Instructions. Chronic Lung Disease: Tips for Safe Exercise?? Valuables and Belongings I fully understand and agree that [facility] accepts no responsibility for all my personal property including clothing, toilet articles, radios, jewelry, dentures, hearing aids, rings, money, or any other property that is in my possession or is brought to me after admission. I understand certain valuables may be placed in a hospital safe for a short period of time. I understand that the hospital is not liable for loss or damage due to accident, fire, or other natural occurrence while said property is in the safe. I accept full responsibility for any personal property that I keep with me, and will not hold the hospital responsible in case of loss or disappearance. I acknowledge that i have been encouraged to send valuables and belongings home. ?? Review of Valuable and Belonging List: With patient Disposition of Belongings: Sent home with patient/family Date for Pt to Sign Valuables/Belongings: 10/26/22 14:30:00 ?? Other Discharge Information ?? Wound Assessment?? Wound Assessment?? Wound Location I: Forearm, right Wound Type I: Traumatic Wound Wound Location II: Knee, right Wound Type II: Traumatic Wound Wound Location III: Knee, left Wound Type III: Traumatic Wound Wound III, Present on Admission: Yes ? Case Management Discharge Plan?? Discharge Plan?? Discharge Agency Information?? Discharge Level of Care at Discharge: nursing home facility Agency Transfusion Nurse #1: Intake Discharge Transportation Arranged: [facility] [address] [facility] [address] [phone] Service Categories #1: Occupational Therapy, Physical Therapy, Assisted Mode of Transportation Arranged: Chair Van Service Comments #1: You are being discharged to rehab. Discharge Arranged Transport Date/Time: 10/26/22 16:00:00 Name of Person Notified of Transfer: John Sandhu, Montse Corral Discharge Nursing Homes/Rehab Facilities: [facility] ? Pulmonary Rehab Status?? Pulmonary Rehab Discharge Status?? Respiratory Rate: 18 br/min ? Common Emergency Awareness Tips IS IT A STROKE? Act FAST and Check for these signs: FACE Does the face look uneven? ARM Does one arm drift down? SPEECH Does their speech sound strange? TIME Call at any sign of stroke ?? Heart Attack Signs Chest discomfort: Most heart attacks involve discomfort in the center of the chest and lasts more than a few minutes, or goes away and comes back. It can feel like uncomfortable pressure, squeezing, fullness or pain. Discomfort in upper body: Symptoms can include pain or discomfort in one or both arms, back, neck, jaw or stomach. Shortness of breath: With or without discomfort. Other signs: Breaking out in a cold sweat, nausea, or lightheaded. Remember, MINUTES DO MATTER. If you experience any of these heart attack warning signs, call to get immediate medical attention! ?? Smoking can increase your chances of developing chronic health problems and can cause harmful effects to other family members in your house. If you smoke, you are strongly encouraged to quit. Please call [facility] at [phone] or [phone] ([phone]) or log in to [email or web address] for referrals to smoking cessation programs. ?? 230 Suicide & Crisis Lifeline is available 12/11 if you or someone you know needs to find a reason to keep living. By calling 249 you'll be connected to a skilled, trained counselor at a crisis center in your area. INPATIENT DISCHARGE INSTRUCTIONS SIGNATURE PAGE JOHN SANDHU Location:[facility] Registration Date and Time:10/19/2022 06:00 EDT Primary Care Physician: Sonya Dee NP, Attending Physician: Joshua Elena MD, I JOHN SANDHU, have received the above patient education materials/instructions and have verbalized understanding. If ambulance or transport services are being used I further acknowledge being given a choice of service. ?? If you need to contact me, please call me at this number: . Patient/Color Maker Name: Patient/Color Maker Signature: Relationship to Patient: Witness Name/Signature: Date: * Joshua Elena MD: PERFORM Event Display: Patient Education Leaflets Authored Date: [id number] Chronic Lung Disease: Tips for Safe Exercise ?? 80007 Chronic Lung Disease: Tips for Safe Exercise After you have met with your healthcare provider and set up an exercise plan, use these tips for better exercise. You can use them at your pulmonary facility or at home.?? Get ready for your workout Here's how to get ready: ??? Plan your workout for the time of day when you normally have the most energy. ??? Dress for comfort. Wear shoes that support your feet. ??? Use a bronchodilator if one has been prescribed. For best results, use it 20 to 30 minutes before exercise or any other strenuous a ctivity. ??? Clear your lungs of mucus if needed. ??? Use oxygen if it???s prescribed for use during activity. Increase the flow rate only if your healthcare provider has told you to. Raising it on your own can be unsafe. ??? Check the weather before you start. On warm or humid days, reduce your workout and rest more often. Also drink extra fluids. Exercise earlier in the day, before it gets hot.If it???s cold outside or if air quality is poor, exercise indoors. Walk inside your home or in a mall. ? My starting goal is minutes of exercise, days a week. ?? Warm up and cool down Here's what you can do before and after exercising:? To warm up, start with a few stretches. This gets your muscles ready for exercise. ??? After your stretches, move on to heavier activity. Pace yourself. Remember to breathe. ??? Toward the end of your workout, decrease your effort so your body can cool down. Then stretch again. This relaxes your muscles. It helps prevent soreness, too. ???Rest and relax. ?? Stay safe during exercise Tips for safe exercise:? Follow the guidelines your healthcare provider or pulmonary rehab team has set for you. ??? Pace yourself. Stop and rest when you need to. ??? Drink plenty of water before, during, and after exercise. ??? Remember that shortness of breath is OK, as long as you can talkand are in control of your breathing. Everyone gets short of breath during exercise???even people without chronic lung disease. But if you can???t speak, you???re pushing yourself too hard. If you have increased shortness of breath, slow down. If it continues, stop and rest. ??? Use pursed-lip breathing to control shortness of breath. ??? Keep your rescue inhaler with??you.??Use it if you need to. ?? Watch for signs of overexertion Stop exercising right away and call your healthcare provider if you feel any of these: ??? Abnormalor increasing shortness of breath ??? Chest pain or discomfort (burning, tightness, heaviness, or pressure) ??? Aching in your arms, shoulder, neck, jaw, or back that is typical for you ??? A slightly racing or skipping heartbeat ??? Feeling much more tired than usual ??? Feeling slight lightheadedness, dizziness, confusion, or nausea ??? Abnormal joint pain ?? Call 911 Call 911 if you have any of these: ??? Abnormal, severe, or quickly worsening shortness of breath ??? Unusual or severe chest pain or discomfort (burning, tightness, heaviness, or pressure) ??? Abnormal aching in your shoulders, arm, neck, jaw, or back ??? Feeling very lightheaded or dizzy ??? A very fast or skipping heartbeat ??? Not able to talk ?? Last Reviewed Date: 2021 ?? 1587-1112 [facility]. All rights reserved. This information is not intended as a substitute for professional medical care. Always follow your healthcare professional's instructions. ?? * Event Display: Discharge/Transfer Note Hospital Authored Date: [id number] * Skylar Mcdermott RN: PERFORM, SIGN, VERIFY Event Display: Case Management Discharge Plan Authored Date: [id number] Patient: JOHN SANDHU Age: 67 years Sex: Male : 1955 Associated Diagnoses: None Author: Skylar Mcdermott RN Discharge Plan Case Management Discharge Plan : Case Management Discharge Plan Data 10/24/2022 13:03 EDT Discharge Level of Care at Discharge nursing home facility Discharge Nursing Homes/Rehab Facilities [facility] Discharge Transportation Arranged [facility] [address] [place] [phone] Discharge Arranged Transport Date/Time 10/24/2022 16:00 Mode of Transportation Arranged Chair Van Agency Transfusion Nurse #1 Intake Service Categories #1 Occupational Therapy, Physical Therapy, Assisted Service Comments #1 You are being discharged to rehab. Name of Person Notified of Transfer Montse Wooten Patient Care team information Care Team Personnel Name: Adelia Landry RN Position: [facility] RN Member Role: Primary Care Nurse Name: Alicia Negorn Position: S RN Member Role: Primary Care Nurse Name: Hanna Dailey Position: S RN Member Role: Primary Care Nurse Name: Nereida Dobbins RN Position: [facility] RN Member Role: Primary Care Nurse Name: Gela Orosco RN Position: S RN Member Role: Primary Care Nurse Name: Jessica Castrejon RN Position: S RN Member Role: Primary Care Nurse Name: Hien Hidalgo RN Position: [facility] RN Member Role: Primary Care Nurse Name: Phuong Balderas RN Position: [facility] SN RN Member Role: Primary Care Nurse Name: Evelyn Mcnulty RN Position: [facility] RN Member Role: Primary Care Nurse Name: Yanely Shanks RN Position: S RN Member Role: Primary Care Nurse Name: Sonya Dee NP Position: [facility] PCO Associate Professional Member Role: PCP Address: Address: [address] [place] [address], [address] [place] [address]- Name: Pola Reid RN Position: S RN Supv Member Role: Primary Care Nurse Name: Betzy Beckford RN Position: S RN Member Role: Primary Care Nurse Name: Nati Leroy RN Position: [facility] RN Member Role: Primary Care Nurse Name: Zully Jara Position: [facility] RN Member Role: Primary Care Nurse Name: Yunior Bui RN Position: [facility] RN Member Role: Primary Care Nurse Name: Candace Liang RN Position: [facility] RN Member Role: Primary Care Nurse Name: Dedra Lezama Position: [facility] RN Member Role: Primary Care Nurse Name: Pat Fernando RN Position: [facility] RN Member Role: Primary Care Nurse Name: Randa Sagastume RN Position: [facility] RN Member Role: Primary Care Nurse Name: Mitra Patel Position: [facility] RN Member Role: Primary Care Nurse Name: Kacie Campbell RN Position: [facility] RN Member Role: Primary Care Nurse Name: Charito Vazquez RN Position: [facility] ED RN W/OE and Tasks Member Role: Primary Care Nurse Name: Dylan Bond RN Position: [facility] RN Member Role: Primary Care Nurse Name: Lydia Doherty RN Position: [facility] RN Member Role: Primary Care Nurse Name: Elie Davis RN Position: [facility] RN Member Role: Primary Care Nurse Name: Delfina Still RN Position: [facility] RN Member Role: Primary Care Nurse Name: Chandni Gibbons RN Position: [facility] SN RN Member Role: Primary Care Nurse Name: Viry Zacarias RN Position: [facility] RN Member Role: Primary Care Nurse Name: Kerri Cunha RN Position: [facility] Hospital As[employer]er [employer] Member Role: Primary Care Nurse Name: Atiya Mcintyre RN Position: [facility] RN Member Role: Primary Care Nurse Name: DonavanGaldino [place] Attending Position: [facility] ED Medicine MD Name: Alessandro Woodall Position: [facility] ED TA [facility] Member Role: Patient Care Provider Name: Georgina Christie Position: [facility] ED OA Charge Member Role: ED Associate Name: Nneka Poole RN Position: [facility] ED RN W/OE and Tasks Member Role: Patient Care Provider Name: Daljit Escobar Position: [facility] ED TA [facility] Member Role: Patient Care Provider Care Team Related Persons Name: MONTSE BRUNNER Address: home [address] [place] [address] Name: MONTSE CORRAL Address: home [address] [place] [address]
--- OUTSIDE RECORDS SUMMARY | 2023-04-11 15:20 | XMS_ITS | Continuity of Care Document ---
Author Name Unknown Organization [facility] Adult Address [address] [place] [address]- Care Team Providers Care Vehicle Return Associate Name Role Phone Sonya Dee NP Primary Care Physician Encounter [facility] [id number] Date(s): 05/27/20 - 06/26/20 [facility] [address] [place] [id number] Attending Physician: Not on Staff, Attending MD Allergies, Adverse Reactions, Alerts Substance Reaction [...] 5 Refills, Maintenance, 06/14/20 10:21:00 EST, Tablet, [facility][id number], Partial fill upon patient request if the prescription is fora schedule II opioid drug., 177.8, cm, 06/14/20 9:3... Start Date: 06/14/20 Stop Date: 12/11/20 Status: Ordered lisinopril 20 mg oral tablet 20 mg, 1, tablet, By Mouth, Daily, # 90 tablet, Refills 0, Tot. Refills 0, Maintenance, 05/12/20 9:54:00 EST, Route to Pharmacy Electronically, [facility] #[id number], Partial fill upon patient request if the prescription is for a schedule II opi... Start Date: 05/12/20 Stop Date: 08/10/20 Status: Ordered metFORMIN 1000 mg oral tablet 1 tablet = 1,000 mg, By Mouth, 2 times a day, # 60 tablet, 0 Refills, Maintenance, 03/15/20 12:57:00 EST, Tablet, [facility], Partial fill upon patient request, 178, cm, 03/15/20 11:15:00 EST, Height, 105, kg, 03/12/20 6:12:00 EST, Dry W... Start Date: 03/15/20 Status: Ordered ofloxacin 0.3% otic solution See Instructions, 5 drops Right ear once daily x 7 days, # 10 mL, Refills 0, Tot. Refills 0, Maintenance, 03/15/20 14:25:00 EST, Instructions Replace Required Details, Route to Pharmacy Electronically, [facility], Partial fill upon patie... Start Date: 03/15/20 Status: Ordered oxyCODONE 5 mg oral tablet See Instructions, 28 days one tablet 5 x day, # 140 tablet, Refills 0, Tot. Refills 0, Maintenance,06/15/20 14:22:00 EST, Instructions Replace Required Details, Route to Pharmacy Electronically, [facility] #[id number], Partial fill upon patient... Start Date: 06/15/20 Status: Ordered Probiotic Formula (Bacillus Coagulans) oral capsule 1 capsule, By Mouth, Daily, # 10 capsule, 0 Refills, Maintenance, 04/14/20 11:39:00 EST, Capsule, [facility] #[id number], Partial fill upon patient request if the prescription is for a schedule II opioid drug., 1 capsule By Mouth Daily, 178, cm,... Start Date: 04/14/20 Status: Ordered simvastatin 40 mg oral tablet 40 mg, 1, tablet, By Mouth, Daily at bedtime, # 30 tablet, Refills 0, Tot. Refills 0, Maintenance, 03/15/20 12:20:00 EST, Route to Pharmacy Electronically, [facility], Partial fill uponpatient request, 178, cm, 03/15/20 11:15:00 EST, He... Start Date: 03/15/20 Status: Ordered Problem List Condition Effective Dates Status Health Status Inform ant Benign hypertension(Confirmed) Active CAD (coronary artery disease)(Confirmed) 1 Active Chronic lower back pain(Confirmed) Active Diabetes mellitus(Confirmed) Active Encephalopathy(Confirmed) Active Dyslipidemia(Confirmed) Active 1angioplasty 2000; 3 stents at [facility] Social History Social History Type Response Smoking Status Smoker, current stat us unknown; Type: Cigarettes; Other: 1/2-1 pk; entered on: 05/10/20 Sex
--- OUTSIDE RECORDS SUMMARY | 2023-04-11 15:20 | XMS_ITS | Continuity of Care Document ---
Author Name Unknown Organization [facility] Address [address] [place] [address]- Care Team Providers Care Equipment Installer Name Role Phone Luiz YARDMASTER, Sonya Primary Care Physician [phone] Encounter [facility] Date(s): 09/27/22 - 10/27/22 [facility] [address] [place] [address]- Allergies, Adverse Reactions, Alerts Substance Reaction Severity [...] 05/26/20 Not Given Patient Refuses 1Result Comment: [facility]: [id number] Medications albuterol-ipratropium 3 mg-0.5 mg/3 ml inhalation [...] 1 Refills, Maintenance, 07/31/22 13:23:00 EDT, [facility], 178, cm, 07/23/22 11:32:00 EDT, Height, 72.5, kg, 03/08/22 4:29:00 EST, Dry Weight Start Date: 07/31/22 Status: Ordered atorvastatin 40 mg oral tablet 1 tablet, By Mouth, Daily at bedtime, # 28 tablet, 5 Refills, Maintenance, 07/31/22 13:23:00 EDT, [facility], 178, cm, 07/23/22 11:32:00 EDT, Height, [...] 12:43:00 EDT, Route to Pharmacy Electronically, [facility], 178, cm, 07/23/22 11:32:00 EDT, Height, [...] 0 Refills, Maintenance, 10/25/22 9:55:00 EDT, [facility], 178, cm, 10/25/22 7:25:00 EDT, Height, [...] 13:25:00 EDT, Route to Pharmacy Electronically, [facility], 178, cm, 07/23/22 11:32:00 EDT, Height, [...] Team Personnel Name: Adelia Landry RN Position: [facility] RN Member Role: Primary Care Nurse Name: Alicia Negron Position: [facility] RN Member Role: Primary Care Nurse Name: Hanna Dailey Position: [facility] RN Member Role: Primary Care Nurse Name: Nereida Dobbins RN Position: [facility] RN Member Role: Primary Care Nurse Name: Gela Orosco RN Position: [facility] RN Member Role: Primary Care Nurse Name: Jessica Castrejon RN Position: [facility] RN Member Role: Primary Care Nurse Name: Hien Hidalgo RN Position: [facility] RN Member Role: Primary Care Nurse Name: Phuong Balderas RN Position: [facility] SN RN Member Role: Primary Care Nurse Name: Evelyn Mcnulty RN Position: [facility] RN Member Role: Primary Care Nurse Name: Yanely Shanks RN Position: [facility] RN Member Role: Primary Care Nurse Name: Sonya Dee NP Position: [facility] PCO Associate Professional Member Role: PCP Address: Address: [address] [place] [address], [address] [place] [address] Name: Pola Reid RN Position: [facility] RN Supv Member Role: Primary Care Nurse Name: Betzy Beckford RN Position: [facility] RN Member Role: Primary Care Nurse Name: Nati Leroy RN Position: [facility] RN Member Role: Primary Care Nurse Name: Zully Jara Position: [facility] RN Member Role: Primary Care Nurse Name: Yunior Bui RN Position: [facility] RN Member Role: Primary Care Nurse Name: Candace Liang RN Position: [facility] RN Member Role: Primary Care Nurse Name: Dedra Lezama Position: [facility] RN Member Role: Primary Care Nurse Name: Pat Fernando RN Position: [facility] RN Member Role: Primary Care Nurse Name: Randa Sagastume RN Position: [facility] RN Member Role: Primary Care Nurse Name: Mitra Patel Position: [facility] RN Member Role: Primary Care Nurse Name: Kacie Campbell RN Position: [facility] RN Member Role: Primary Care Nurse Name: Charito Vazquez RN Position: [facility] ED RN W/OE and Tasks Member Role: Primary Care Nurse Name: Dylan Bond RN Position: [facility] RN Member Role: Primary Care Nurse Name: Lydia Doherty RN Position: [facility] RN Member Role: Primary Care Nurse Name: Elie Davis RN Position: [facility] RN Member Role: Primary Care Nurse Name: Delfina Still RN Position: [facility] RN Member Role: Primary Care Nurse Name: Chandni Gibbons RN Position: [facility] RN Member Role: Primary Care Nurse Name: Viry Zacarias RN Position: [facility] RN Member Role: Primary Care Nurse Name: Kerri Cunha RN Position: [facility] Starch And Prosize Mixer Member Role: Primary Care Nurse Name: Atiya Mcintyre RN Position: [facility] RN Member Role: Primary Care Nurse Care Team Related Persons Name: IBETH BRUNNER Address: home [address] [address] Name: IBETH CORRAL Address: home [address] [address]
--- OUTSIDE RECORDS SUMMARY | 2023-04-11 15:20 | XMS_ITS | Continuity of Care Document ---
Author Name Unknown Organization [facility] Address [address] [place] [address]- Care Team Providers Care Transit Bus Operator Name Role Phone Luiz SALAS, Sonya Primary Care Physician [phone] [facility]counter [facility] Date[facility]s): 06/22/21 - 07/22/21 [facility] [address] [place] [id number]- Allergies, Adverse Reactions, Alerts Substance Reaction Severity [...] 5 Refills, Maintenance, 05/02/21 10:38:00 EST, Tablet, [facility]/pharmacy #[id number], Partial fill upon patient request if the prescription is for a schedule II opioid drug., 178, cm, 04/27/21 4:54:00 ES... Start Date: 05/02/21 Stop Date: 10/29/21 Status: Ordered cholecalciferol 50,000 intl units oral capsule 1 capsule = 50,000 International_Units, By Mouth, Every week, # 5 capsule, 11 Refills, Maintenance,05/02/21 10:36:00 EST, Capsule, [facility]/pharmacy #[id number], Partial fill upon patient request if the prescription is for a schedule II opioid drug., 178, cm, 0... Start Date: 05/02/21 Stop Date: 04/27/22 Status: Ordered clonazePAM 0.5 mg oral tablet 1 tablet = 0.5 mg, By Mouth, 3 times a day, # 90 tablet, 1 Refills, Maintenance, 05/02/21 12:49:00 EST, Tablet, [facility]/pharmacy #[id number], Partial fill upon patient request if the prescription is for a schedule II opioid drug., 178, cm, 04/27/21 4:54:00 EST,... Start Date: 05/02/21 Stop Date: 07/01/21 Status: Ordered clopidogrel 75 mg oral tablet 1, tablet, By Mouth, Daily, # 90 tablet, Refills 1, Route to Pharmacy Electronically, [facility] STORE [id number], 178, cm, 05/11/21 8:52:00 EST, Height, 81, kg, 05/06/21 2:22:00 EST, Dry Weight Start Date: 05/30/21 Status: Ordered glimepiride 4 mg oral tablet 1 tablet, By Mouth, 2 times a day, # 60 tablet, 5 Refills, Maintenance, 05/02/21 10:36:00 EST, [facility]/pharmacy #[id number], 178, cm, 04/27/21 4:54:00 EST, Height, 84.3, kg, 04/23/21 2:54:00 EST, Dry Weight Start Date: 05/02/21 Status: Ordered lactulose 10 gm/15 ml oral syrup 15 mL, By Mouth, Daily, PRN NEEDED FOR CONSTIPATION, # 473 mL, 0 Refills, [id number], 30, TAKE 15 ML BY MOUTH DAILY NEEDED FOR CONSTIPATION, 178, cm, 03/13/21 13:09:00 EST, Height, 100, kg, 12/26/20 16:53:00 EDT, Dry Weight Start Date: 04/20/21 Status: Ordered magnesium oxide 400 mg oral tablet 1 tablet = 400 mg, By Mouth, Daily, for 30 days, # 30 tablet, 5 Refills, Acute 10/29/21 10:39:00 EDT, 05/02/21 10:39:00 EST, Tablet, [facility]/pharmacy #[id number], Partial fill upon patient request if the prescription is for a schedule II opioid drug., 178, cm,... Start Date: 05/02/21 Stop Date: 10/29/21 Status: Ordered metFORMIN 1000 mg oral tablet 1 tablet = 1,000 mg, By Mouth, 2 times a day, # 60 tablet, 5 Refills, Maintenance, 05/02/21 10:36:00 EST, Tablet, [facility]/pharmacy #[id number], Partial fill upon patient request, 178, cm, 04/27/21 4:54:00 EST,Height, 84.3, kg, 04/23/21 2:54:00 EST, Dry Weight Start Date: 05/02/21 Status: Ordered oxyCODONE 5 mg oral tablet 5 mg, 1, tablet, By Mouth, 5 times a day, PASSENGER REPRESENTATIVE checked., # 140 tablet, Refills 0, Tot. Refills 0, Maintenance, 06/05/21 16:38:00 EST, [id number] Partial fillupon patient request if the [...] 05/02/21 10:38:00 EST, Route to Pharmacy Electronically, [facility]/pharmacy #[id number], Partial fill upon patient request if the prescription is for a sc... Start Date: 05/02/21 Stop Date: 10/29/21 Status: Ordered Problem List Condition Effective Dates Status Health Status Inform ant Benign hypertension(Confirmed) Active CAD (coronary artery disease)(Confirmed) 1 Active Chronic lower back pain(Confirmed) Active Diabetes mellitus(Confirmed) Active Encephalopathy(Confirmed) Active Dyslipidemia(Confirmed) Active Acute ischemic stroke(Confirmed) 2 11/07/20 Active 1angioplasty 2000; 3 stents at [facility] 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 [...]
--- OUTSIDE RECORDS SUMMARY | 2023-04-11 15:20 | XMS_ITS | Continuity of Care Document ---
Author Name Unknown Organization [facility] Address [address] [place] [address]- Care Team Providers Care Scientific Informatics Leader Name Role Phone Luiz SALAS, Sonya Primary Care Physician [place] [facility] [place]): 02/14/22 - 03/16/22 [facility] [address] [place] [id number]- Allergies, Adverse Reactions, Alerts Substance Reaction Severity [...] 05/26/20 Not Given Patient Refuses 1Result Comment: [place]: [id number] Medications Aspirin Low Dose 81 mg oral tablet, chewable 1 tablet, By Mouth, Daily, # 28 tablet, 12 Refills, [facility], 178, cm, 11/10/21 9:32:00 EDT, Height, 77.5, kg, 11/10/21 9:32:00 EDT, Dry Weight Start Date: 11/22/21 Status: Ordered atorvastatin 80 mg oral tablet 1 tablet = 80 mg, By Mouth, Daily at bedtime, # 30 tablet, 0 Refills, Maintenance, 03/14/22 14:51:00 EST, Tablet, [facility], Partial fill upon patient request if the prescription is for a schedule II opioid drug., 178, cm, 03/14/22 12:0... Start Date: 03/14/22 Status: Ordered calcium carbonate 500 mg (200 [...] tablet, Refills 0, Tot. Refills 0, Maintenance, 03/14/22 14:52:00 EST, Route to Pharmacy Electronically, [facility], Partial fill upon patient request if the prescription is for a schedule II opioi... Start Date: 03/14/22 Stop Date: 09/10/22 Status: Ordered cyanocobalamin 1000 mcg oral tablet [...] opioid drug. Start Date: 01/17/22 Status: Ordered large pull [...] 0 Refills, Maintenance, 03/14/22 14:53:00 EST, Patch, [facility], Partial fill upon patient [...] Confirmed Active 1angioplasty 2000; 3 stents at [facility] 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 [...] Care Team Personnel Name: Alicia Negron Position: [facility] RN Member Role: Primary Care Nurse Name: Ewa Everett RN Position: S RN Member Role: Primary Care Nurse Name: Hanna Dailey Position: [facility] RN Member Role: Primary Care Nurse Name: Gela Orosco RN Position: S RN Member Role: Primary Care Nurse Name: Jessica Castrejon RN Position: [facility] RN Member Role: Primary Care Nurse Name: Hien Hidalgo RN Position: [facility] RN Member Role: Primary Care Nurse Name: Evelyn Mcnulty RN Position: [facility] RN Member Role: Primary Care Nurse Name: Sonya Dee NP Position: [facility] PCO Associate Professional Member Role: PCP Address: Address: [address] [place] [address], [address] Name: Pola Reid RN Position: [facility] RN Member Role: Primary Care Nurse Name: Betzy Beckford RN Position: [facility] RN Member Role: Primary Care Nurse Name: Karley Perry Position: [facility] RN Member Role: Primary Care Nurse Name: Zully Jara Position: [facility] RN Member Role: Primary Care Nurse Name: Yunior Bui RN Position: [facility] RN Member Role: Primary Care Nurse Name: Candace Liang RN Position: [facility] RN Member Role: Primary Care Nurse Name: Kassi Mars RN Position: [facility] RN Member Role: Primary Care Nurse Name: Dedra Lezama Position: [facility] RN Member Role: Primary Care Nurse Name: Pat Fernando RN Position: [facility] RN Member Role: Primary Care Nurse Name: Randa Sagastume RN Position: [facility] RN Member Role: Primary Care Nurse Name: Liborio Palomares RN Position: [facility] RN Member Role: Primary Care Nurse Name: Yulia Veliz RN Position: S RN Member Role: Primary Care Nurse Name: Chandni Ball RN Position: [facility] RN Member Role: Primary Care Nurse Name: Mitra Patel Position: [facility] RN Member Role: Primary Care Nurse Name: Kacie Campbell RN Position: [facility] RN Member Role: Primary Care Nurse Name: Charito Vazquez RN Position: [facility] ED RN W/OE and Tasks Member Role: Primary Care Nurse Name: Dylan Bond RN Position: [facility] RN Member Role: Primary Care Nurse Name: Phuong Delgado RN Position: [facility] RN Member Role: Primary Care Nurse Name: Lydia Doherty RN Position: [facility] RN Member Role: Primary Care Nurse Name: Elie Davis RN Position: [facility] RN Member Role: Primary Care Nurse Name: Delfina Still RN Position: [facility] RN Member Role: Primary Care Nurse Name: Suzy Mccracken RN Position: [facility] RN Member Role: Primary Care Nurse Name: Rosio Gibbons RN Position: [facility] RN Member Role: Primary Care Nurse Name: Viry Zacarias RN Position: [facility] RN Member Role: Primary Care Nurse Name: Kerri Cunha RN Position: [facility] Hospital Accelerator Operator Member Role: Primary Care Nurse Name: Atiya Mcintyre RN Position: [facility] RN Member Role: Primary Care Nurse Care Team Related Persons Name: IBETH BRUNNER Address: home [address] [place], [place] Name: IBETH CORRAL Address: home [address] [facility] [place], [place]
--- OUTSIDE RECORDS SUMMARY | 2023-04-11 15:20 | XMS_ITS | Continuity of Care Document ---
Author Name Unknown Organization [facility] ter Address [address] [place] [address]- Care Team Providers Care Commissioner Public Works Name Role Phone Luiz SALAS, Sonya Primary Care Physician Encounter [facility] Date(s): 05/05/21 - 05/07/[address] [address]- Discharge Disposition: A-D/C Home Attending Physician: Wolfgang Menjivar MD Admitting Physician: Nica Guajardo MD Referring Physician: Not on Staff, Referring [...] Refuses Medications amLODIPine 5 mg oral tablet 5 mg, Tablet, By Mouth, 05/07/21 9:00:00 EST Start Date: 05/07/21 Stop Date: 05/07/21 Status: Completed amLODIPine 5 mg oral tablet 1 tablet = 5 mg, By Mouth, Daily, for 30 days, # 30 tablet, 5 Refills, Hard Stop 07/15/21 10:30:00 EDT, 01/16/21 10:30:00 EDT, Tablet, [id number], Partial fill upon patient request if the prescription is for a schedule II opioid drug., 178, cm... Start Date: 01/16/21 Stop Date: 07/15/21 Status: Ordered atorvastatin 40 mg oral tablet 1 tablet = 40 mg, By Mouth, Daily at bedtime, # 30 tablet, 5 Refills, Maintenance, 05/02/21 10:38:00 EST, Tablet, [facility]/pharmacy #[id number], Partial fill upon patient request if the prescription is for a schedule II opioid drug., 178, cm, 04/27/21 4:54:00 ES... Start Date: 05/02/21 Stop Date: 10/29/21 Status: Ordered Bactrim DS 800 mg-160 mg oral tablet 1 tablet, By Mouth, 2 times a day, for 5 days, take first dose 116 PM, take until all pills are gone, # 10 tablet, 0 Refills, Acute 05/12/21 12:38:00 EST, 05/07/21 12:38:00 EST, Tablet, [facility], Partial fill upon patient request if [...] 1 Refills, Maintenance, 05/02/21 12:49:00 EST, Tablet, [facility]/pharmacy #[id number], [...] # 473 mL, 0 Refills, [facility], 30, TAKE 15 ML BY MOUTH DAILY NEEDED FOR CONSTIPATION, 178, cm, 03/13/21 13:09:00 EST, Height, 100, kg, 12/26/20 16:53:00 EDT, Dry Weight Start Date: 04/20/21 Status: Ordered lisinopril 10 mg oral tablet 10 mg, Tablet, By Mouth, 05/07/21 9:00:00 EST Start Date: 05/07/21 Stop Date: 05/07/21 Status: Completed lisinopril 10 mg oral tablet 10 mg, 1, tablet, By Mouth, Daily, for 30 days, # 30 tablet, Refills 5, Tot. Refills 5, Hard Stop 07/15/21 10:29:00 EDT, 01/16/21 10:29:00 EDT, Route to Pharmacy Electronically, [facility] oral tablet 5 mg, Tablet, By Mouth, 05/07/21 9:00:00 EST Start Date: 05/07/21 Stop Date: 05/07/21 Status: Completed oxyCODONE 5 mg oral tablet 5 mg, 1, tablet, By Mouth, 5 times a day, MARBLE SUPERVISOR checked., # 140 tablet, Refills 0, Tot. Refills 0, Maintenance, 05/02/21 9:47:00 EST, Route to Pharmacy Electronically, [facility]/pharmacy #[id number], Partial fill upon patient request if the prescription is for a sc... Start Date: 05/02/21 Stop Date: 05/30/21 Status: Ordered oxyCODONE 5 mg oral tablet 5 mg, Tablet, By Mouth, 05/07/21 12:00:00 EST Start Date: 05/07/21 Stop Date: 05/07/21 Status: Completed pantoprazole 40 mg oral delayed [...] 05/02/21 10:36:00 EST, [facility] to Pharmacy [facility]ically, [facility] to Pharmacy Electronically, [facility]acy #[id number], Partial fill upon patient request if the prescription is for a sc... 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 S/P Elective Coiling of Unruptured Aneurysm with Subsequent Left-Sided Weakness: Acute nonhemorrhagic infarct in the RIGHT posterior frontal lobe: Results Orders for Microbiology Reports Name Date Urine Culture (URINE CULTURE) 05/05/21 Blood Culture 05/05/21 Blood Culture #2 05/05/21 Microbiology Reports TEST:Urine Culture STATUS:Auth (Verified) BODY SITE: SOURCE:URINE COLLECTED DATE/TIME:05/05/21 8:39 PM Urine Culture SPECIMEN DESCRIPTION : URINE SPECIAL REQUESTS : NONE CULTURE : Mixed bacterial koki, indicative of urogenital contamination. REPORT STATUS : FINAL 05/07/2021 TEST:Blood Culture STATUS:Unauthenticated BODY SITE: SOURCE:Blood COLLECTED DATE/TIME:05/05/21 5:18 PM Blood Culture SPECIMEN DESCRIPTION : BLOOD RHAND SPECIAL REQUESTS : NONE CULTURE : NO GROWTH AFTER 48 HOURS REPORT STATUS : PRELIMINARY REPORT TEST:Blood Culture, Second Order STATUS:Unauthenticated BODY SITE: SOURCE:Blood COLLECTED DATE/TIME:05/05/21 5:18 PM Blood Culture, Second Order SPECIMEN DESCRIPTION : BLOOD LAC SPECIAL REQUESTS : NONE CULTURE : NO GROWTH AFTER 48 HOURS REPORT STATUS : PRELIMINARY REPORT Radiology Reports * Exam Date Time Procedure Performing Provider Status 05/05/21 6:36 PM Chest Portable Jacinda Tristan; Auth (V erified) Notes: (Chest Portable) Reason For Exam: Shortness of Breath RESULT: Chest Portable Chest Portable Hx of Present Illness: dx with uti at [facility] unable to afford antibiotics pt with nausea chills and diarrhea able to urinate last night but small amounts; Reason: Shortness of Breath; Clinical Question(s): CHF COMPARISON: 04/22/2020 FINDINGS: LINES AND TUBES: None. LUNGS AND PLEURA: Clear lungs. Normal pulmonary vascularity. No pleural effusion. No pneumothorax. HEART, MEDIASTINUM AND MAHESH: Heart is normal in size. Normal upper mediastinal and hilar contour. BONES AND SOFT TISSUES: No acute abnormality. IMPRESSION: No acute abnormality. WSN: [id number] Ordering Physician: Gloria Cruz Dictated By: Jose Javier MD Dictated Date/Time: 05/05/21 6:49 pm Reviewed By: Jose Javier MD Signed By: Jose Javier MD Signed Date/Time: 05/05/21 6:49 pm Transcribed By: ANDREAS Transcribed Date/Time: 05/05/21 6:49 pm Vital Signs Most recent to oldest [Reference Range]: 1 2 3 Height 178 cm (05/07/21 4:36 AM) 178 cm (05/06/21 7:49 PM) 178 cm (05/06/21 1:44 PM) Weight 81 kg (05/06/21 2:22 AM) Oxygen Saturation [94-100 %] 98 % (05/07/21 4:36 AM) 96 % (05/06/21 7:49 PM) 100 % (05/06/21 2:00 PM) Pulse Rate [55-90 bpm] 61 bpm (05/07/21 4:36 AM) 81 bpm (05/06/21 7:49 PM) 76 bpm (05/06/21 2:00 PM) Body Mass Index [18.5-24.99] 25.56 *H* (05/06/21 2:22 AM) Blood Pressure [90-138/55-84 mm Hg] 137/71mm Hg (05/07/21 9:08 AM) 137/71mm Hg (05/07/21 9:07 AM) 123/55mm Hg (05/07/21 4:36 AM) Respiratory Rate [16-30 br/min] 18 br/min (05/07/21 1:15 PM) 18 br/min (05/07/21 12:15 PM) 18 br/min (05/07/21 10:07 AM) Temperature [96.8-100.4 DegF] 97.4 DegF (05/07/21 4:36 AM) 97.6 DegF (05/06/21 7:49 PM) 98.1 DegF (05/06/21 1:44 PM) Mode of Delivery (Oxygen) Room air (05/07/21 4:36 AM) Room air (05/06/21 7:49 PM) Room air (05/06/21 2:00 PM) Blood pressure sites Arm, right (05/07/21 4:36 AM) Arm, right (05/06/21 7:49 PM) Arm, right (05/06/21 2:00 PM) Temperature Route Oral (05/07/21 4:36 AM) Oral (05/06/21 7:49 PM) Oral (05/06/21 1:44 PM) Dry Weight 81 kg (05/06/21 2:22 AM) Social History Social History Type Response Smoking Status Smoker, current stat us unknown; Type: Cigarettes; Other: 1/2-1 pk; entered on: 05/10/20 Sex
--- OUTSIDE RECORDS SUMMARY | 2023-04-11 15:20 | XMS_ITS | Continuity of Care Document ---
Author Name Unknown Organization [facility] [employer] ter Address [address] [place] [address]- Care Team Providers Care Application Development Project Manager Name Role Phone Luiz SALAS, Sonya Primary Care Physician [phone] Encounter [facility] Date(s): 12/25/20 - 12/29/[address] [address]- Encounter Diagnosis Fall(Final) - 12/25/20 Discharge Disposition: A-Transfer SNF Attending Physician: Sánchez Hoskins MD Admitting Physician: Wilfredo Urias MD Referring Physician: Not on Staff, Referring [...] = 5 mg, By Mouth, Daily, Maintenance, 12/26/20 9:16:00 EDT, Tablet Start Date: 12/26/20 Status: Ordered amLODIPine 5 mg oral tablet 5 mg, Tablet, By Mouth, 12/29/20 9:00:00 EDT Start Date: 12/29/20 Stop Date: 12/29/20 Status: Completed aspirin 81 mg oral tablet, chewable 81 [...] capsule, 11 Refills, Maintenance,08/19/20 5:59:00 EDT, Capsule, [id number], Partial fill upon patient request if the prescription is for a schedule II opioid drug., 17... Start Date: 08/19/20 Stop Date: 08/14/21 Status: Ordered clonazePAM 0.5 mg oral tablet 1 tablet = 0.5 mg, By Mouth, 3 times a day, # 90 tablet, 1 Refills, Maintenance, 12/05/20 17:53:00 EDT, Tablet, [facility] #[id number], Partial fill upon patient request if the prescription is for a schedule II opioid drug., 178, cm, 12/05/20 16:... Start Date: 12/05/20 Stop Date: 02/03/21 Status: Ordered glimepiride 4 mg oral tablet 1 tablet, By Mouth, 2 times a day, # 60 tablet, 2 Refills, Maintenance, 11/18/20 10:12:00 EDT, [facility] #[id number], 178, cm, 11/14/20 9:36:00 EDT, Height, 100, kg, 11/07/20 7:34:00 EDT, Dry Weight Start Date: 11/18/20 Status: Ordered lisinopril 10 mg oral tablet 10 mg, 1, tablet, By Mouth, Daily, Maintenance, 12/26/20 9:16:00 EDT Start Date: 12/26/20 Status: Ordered lisinopril 10 mg oral tablet 10 mg, Tablet, By Mouth, 12/29/20 9:00:00 EDT Start Date: 12/29/20 Stop Date: 12/29/20 Status: Completed magnesium oxide 400 mg oral tablet 1 [...] 0 Refills, Maintenance, 03/15/20 12:57:00 EST, Tablet, [facility], Partial fill upon patient request, 178, cm, 03/15/20 11:15:00 EST, Height, 105, kg, 03/12/20 6:12:00 EST, Dry W... Start Date: 03/15/20 Status: Ordered oxyCODONE 5 mg oral tablet 5 mg, 1, tablet, By Mouth, Every 4 hours, CREDIT AND COLLECTIONS REPRESENTATIVE checked., # 18 tablet, Refills 0, Tot. Refills 0, Maintenance, 12/29/20 8:43:00 EDT, Print Re[facility], Partial fill upon patient request if the prescription is for a schedule II opioid drug. Start Date: 12/29/20 Stop Date: 01/01/21 Status: Ordered pantoprazole 40 mg oral delayed release tablet = 40 mg, By Mouth, Daily, # 30 tablet, 0 Refills, Maintenance, 11/14/20 11:16:00 EDT, EC Tablet Start Date: 11/14/20 Stop Date: 12/14/20 Status: Ordered Plavix 75 mg oral tablet 75 mg, 1, tablet, By Mouth, Daily, # 30 tablet, Refills 0, Tot. 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 S/P Elective Coiling of Unruptured Aneurysm with Subsequent Left-Sided Weakness: Acute nonhemorrhagic infarct in the RIGHT posterior frontal lobe: Results Radiology Reports * Exam Date Time Procedure Performing Provider Status 12/25/20 8:54 PM Chest Portable Adrianne Burroughs; Auth (Verified) Notes: (Chest Portable) Reason For Exam: Chest Pain;Other: RESULT: Chest Portable Chest Portable Hx of Present Illness: Pt presenting with worsening weakness since recent d c from [facility] on Saturday.Pt had a stroke and brain aneruysm diagnosed at [facility]. Pt has baseline facial droop and slurred speech. States he has had more trouble walking, had foggy vision ; Reason: Other:; Chest Pain; Clinical Question(s): Other: COMPARISON: 11/11/2020 FINDINGS: LINES AND TUBES: None. LUNGS AND PLEURA: Low lung volumes with mild basilar atelectasis. Lungs are otherwise clear with no consolidation. No pleural effusion. No pneumothorax. HEART, MEDIASTINUM AND MAHESH: Heart is normal in size. Normal upper mediastinal and hilar contour. BONES AND SOFT TISSUES: No acute abnormality. IMPRESSION: No acute abnormality. WSN: [id number] Ordering Physician: Karl Garcia Dictated By: Jose Javier MD Dictated Date/Time: 12/25/20 8:57 pm Reviewed By: Jose Javier MD Signed By: Jose Javier MD Signed Date/Time: 12/25/20 8:57 pm Transcribed By: CSB Transcribed Date/Time: 12/25/20 8:56 pm Vital Signs Most recent to oldest [Reference Range]: 1 2 3 Height 178 cm (12/29/20 5:31 AM) 178 cm (12/28/20 3:48 PM) 178 cm (12/28/20 10:52 AM) Weight 100 kg (12/26/20 4:50 PM) Oxygen Saturation [94-100 %] 99 % (12/29/20 5:31 AM) 96 % (12/28/20 3:48 PM) 100 % (12/28/20 10:52 AM) Pulse Rate [55-90 bpm] 86 bpm (12/29/20 5:31 AM) 79 bpm (12/28/20 3:48 PM) 89 bpm (12/28/20 10:52 AM) Body Mass Index [18.5-24.99] 31.56 *>HHI* (12/26/20 4:50 PM) Blood Pressure [90-138/55-84 mm Hg] 130/94mm Hg (12/29/20 8:52 AM) 130/94mm Hg (12/29/20 8:51 AM) 146/96mm Hg *H* (12/29/20 5:31 AM) Respiratory Rate [16-30 br/min] 18 br/min (12/29/20 5:31 AM) 18 br/min (12/28/20 3:48 PM) 19 br/min (12/28/20 10:52 AM) Temperature [96.8-100.4 DegF] 97.7 DegF (12/29/20 5:31 AM) 98.3 DegF (12/28/20 3:48 PM) 97.7 DegF (12/28/20 10:52 AM) Mode of Delivery (Oxygen) Room air (12/29/20 5:31 AM) Room air (12/28/20 3:48 PM) Room air (12/28/20 10:52 AM) Blood pressure sites Arm, left (12/29/20 5:31 AM) Arm, left (12/28/20 3:48 PM) Arm, left (12/28/20 10:52 AM) Temperature Route Oral (12/29/20 5:31 AM) Oral (12/28/20 3:48 PM) Axillary (12/28/20 10:52 AM) Dry Weight 100 kg (12/26/20 4:50 PM) Social History Social History Type Response Smoking Status Smoker, current stat us unknown; Type: Cigarettes; Other: 12-1 pk; entered on: 05/10/20 Sex
--- OUTSIDE RECORDS SUMMARY | 2023-04-11 15:20 | XMS_ITS | Continuity of Care Document ---
Author Name Unknown Organization [facility] Adult Address [address] [place] [address]- Care Team Providers Care Test Engineering Manager Name Role Phone Luiz SALAS, Sonya Primary Care Physician Encounter [facility] [place] Date(s): 08/24/21 - 08/31/21 [facility] Adult [address] [place] [address]- Attending Physician: Not on Staff, Attending MD [...] Refills, Maintenance, 05/02/21 10:38:00 EST, Tablet, [id number], Partial fill upon patient request if the prescription is for a schedule II opioid drug., 178, cm, 04/27/21 4:54:00 ES... Start Date: 05/02/21 Stop Date: 10/29/21 Status: Ordered cholecalciferol 50,000 intl units oral capsule 1 capsule = 50,000 International_Units, By Mouth, Every week, # 5 capsule, 11 Refills, Maintenance,05/02/21 10:36:00 EST, Capsule, [facility]acy #[id number], Partial fill upon patient request if the prescription is for a schedule II opioid drug., 178, cm, 0... Start Date: 05/02/21 Stop Date: 04/27/22 Status: Ordered clonazePAM 0.5 mg oral tablet 1 tablet = 0.5 mg, By Mouth, 3 times a day, # 90 tablet, 1 Refills, Maintenance, 07/25/21 17:16:00 EDT, Tablet, [facility]acy #[id number], Partial fill upon patient request if the prescription is for a schedule II opioid drug., 178, cm, 07/24/21 16:10:00 EDT... Start Date: 07/25/21 Stop Date: 09/23/21 Status: Ordered clopidogrel 75 mg oral tablet 1, tablet, By Mouth, Daily, # 90 tablet, Refills 1, Route to Pharmacy Electronically, [facility] [id number], 178, cm, 05/11/21 8:52:00 EST, Height, 81, kg, 05/06/21 2:22:00 EST, Dry Weight Start Date: 05/30/21 Status: Ordered glimepiride 4 mg oral tablet 1 tablet, By Mouth, 2 times a day, # 60 tablet, 5 Refills, Maintenance, 05/02/21 10:36:00 EST, [facility] #[id number], 178, cm, 04/27/21 4:54:00 EST, Height, [...] 10/29/21 10:39:00 EDT, 05/02/21 10:39:00 EST, Tablet, [facility] #[id number], Partial fill upon patient request if the prescription is for a schedule II opioid drug., 178, cm,... Start Date: 05/02/21 Stop Date: 10/29/21 Status: Ordered metFORMIN 1000 mg oral tablet 1 tablet = 1,000 mg, By Mouth, 2 times a day, # 60 tablet, 5 Refills, Maintenance, 05/02/21 10:36:00 EST, Tablet, [facility] #[id number], Partial fill upon patient request, 178, cm, 04/27/21 4:54:00 EST,Height, 84.3, kg, 04/23/21 2:54:00 EST, Dry Weight Start Date: 05/02/21 Status: Ordered oxyCODONE 5 mg oral tablet 5 mg, 1, tablet, By Mouth, 5 times a day, DRY MILL WORKER checked., # 140 tablet, Refills 0, Tot. [...] 05/02/21 10:38:00 EST, Route to Pharmacy Electronically, [facility]acy #[id number], Partial fill upon patient request if the [...] 11/07/20 Active 1angioplasty 2000; 3 stents at [facility] 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 [...]
--- OUTSIDE RECORDS SUMMARY | 2023-04-11 15:20 | XMS_ITS | Continuity of Care Document ---
Author Name Unknown Organization [facility] Adult Address [address] [place] [address]- Care Team Providers Care Food Manager Name Role Phone Luiz SALAS, Sonya Primary Care Physician Encounter [facility] Date(s): 10/10/21 - 11/09/21 [facility] Adult [address] [place] [address]- Allergies, Adverse Reactions, Alerts Substance Reaction Severity [...] tablet, Refills 1, Route to Pharmacy Electronically, [id number], 178, cm, 05/11/21 8:52:00 EST, Height, 81, [...] 10/22/21 16:00:00 EDT, Route to Pharmacy Electronically, [facility], Partial fill upon patient request if [...]
--- OUTSIDE RECORDS SUMMARY | 2023-04-11 15:20 | XMS_ITS | Continuity of Care Document ---
Author Name Unknown Organization [facility] Adult Address [address] [place] [address]- Care Team Providers Care Insurance Counselor Name Role Phone Luiz SALAS, Sonya Primary Care Physician [place] [facility] [place] 05/02/21 - 06/01/21 [facility] Adult [address] [place] [address]- Allergies, Adverse Reactions, Alerts Substance Reaction Severity [...] 07/15/21 10:30:00 EDT, 01/16/21 10:30:00 EDT, Tablet, [facility]acy #[id number], Partial fill upon patient request if the prescription is for a schedule II opioid drug., 178, cm... Start Date: 01/16/21 Stop Date: 07/15/21 Status: Ordered atorvastatin 40 mg oral tablet 1 tablet = 40 mg, By Mouth, Daily at bedtime, # 30 tablet, 5 Refills, Maintenance, 05/02/21 10:38:00 EST, Tablet, [facility]/pharmacy #[id number], Partial fill upon patient request if the prescription is for a schedule II opioid drug., 178, cm, 04/27/21 4:54:00 ES... Start Date: 05/02/21 Stop Date: 10/29/21 Status: Ordered cholecalciferol 50,000 intl units oral capsule 1 capsule = 50,000 International_Units, By Mouth, Every week, # 5 capsule, 11 Refills, Maintenance,05/02/21 10:36:00 EST, Capsule, [facility]/pharmacy #[id number], Partial fill upon patient request if the prescription is for a schedule II opioid drug., 178, cm, 0... Start Date: 05/02/21 Stop Date: 04/27/22 Status: Ordered clonazePAM 0.5 mg oral tablet 1 tablet = 0.5 mg, By Mouth, 3 times a day, # 90 tablet, 1 Refills, Maintenance, 05/02/21 12:49:00 EST, Tablet, [facility]/pharmacy #[id number], Partial fill upon patient request if the prescription is for a schedule II opioid drug., 178, cm, 04/27/21 4:54:00 EST,... Start Date: 05/02/21 Stop Date: 07/01/21 Status: Ordered clopidogrel 75 mg oral tablet 1, tablet, By Mouth, Daily, # 90 tablet, Refills 1, Route to Pharmacy Electronically, [id number], 178, cm, 05/11/21 8:52:00 EST, Height, 81, [...] # 473 mL, 0 Refills, [id number], 30, TAKE 15 ML BY MOUTH DAILY [...] 10:29:00 EDT, Route to Pharmacy Electronically, [facility]/pharmacy #[id number], Partial fill upon patient request if the prescription... Start Date: 01/16/21 Stop Date: 07/15/21 Status: Ordered magnesium oxide 400 mg oral tablet 1 tablet = 400 mg, By Mouth, Daily, for 30 days, # 30 tablet, 5 Refills, Acute 10/29/21 10:39:00 EDT, 05/02/21 10:39:00 EST, [id number] Partial fill upon patient request if the prescription is for a schedule II opioid drug., 178, cm,... Start Date: 05/02/21 Stop Date: 10/29/21 Status: Ordered metFORMIN 1000 mg oral tablet 1 tablet = 1,000 mg, By Mouth, 2 times a day, # 60 tablet, 5 Refills, Maintenance, 05/02/21 10:36:00 EST, Tablet, [facility]/pharmacy #[id number], Partial fill upon patient request, 178, cm, 04/27/21 4:54:00 EST,Height, 84.3, kg, 04/23/21 2:54:00 EST, Dry Weight Start Date: 05/02/21 Status: Ordered oxyCODONE 5 mg oral tablet 5 mg, 1, tablet, By Mouth, 5 times a day, FIBER PRODUCT CUTTING MACHINE OPERATOR checked., # 140 tablet, Refills 0, Tot. Refills 0, Maintenance, 05/02/21 9:47:00 EST, Route to Pharmacy Electronically, [facility]/pharmacy #[id number], Partial fill upon patient [...] EST, Route to Pharmacy Electronically, [facility]/pharmacy #[id number], Partial fill upon patient request if the prescription is for a sc... Start Date: 05/02/21 Stop Date: 10/29/21 Status: Ordered Problem List Condition Effective Dates Status Health Status Inform ant Benign hypertension(Confirmed) Active CAD (coronary artery disease)(Confirmed) 1 Active Chronic lower back pain(Confirmed) Active Diabetes mellitus(Confirmed) Active Encephalopathy(Confirmed) Active Dyslipidemia(Confirmed) Active Acute ischemic stroke(Confirmed) 2 11/07/20 Active 1angioplasty 2000; 3 stents at [facility] 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 [...]
--- OUTSIDE RECORDS SUMMARY | 2023-04-11 15:20 | XMS_ITS | Continuity of Care Document ---
Author Name Unknown Organization [facility] Adult Address [address] [place] [address]- Care Team Providers Care Administrative Support Assoc Name Role Phone Luiz SALAS, Sonya Primary Care Physician [phone] Encounter [facility] [place] Date(s): 11/23/21 - 12/23/21 [facility] Adult [address] [place] [phone]- Allergies, Adverse Reactions, Alerts Substance Reaction Severity [...] 05/02/21 10:38:00 EST, Route to Pharmacy Electronically, [facility]acy #[id number], Partial fill upon patient request if the [...] 09/07/21 11:35:00 EDT, Route to Pharmacy Electronically, [facility], Partial fill upon patient request [...] Team Personnel Name: Sonya Dee NP Address: [address] [place] [address], [address] [place], [place] [address]
--- OUTSIDE RECORDS SUMMARY | 2023-04-11 15:20 | XMS_ITS | Continuity of Care Document ---
Author Name Unknown Organization [facility] Adult Address [address] [place] [address]- Care Team Providers Care Systems Analyst Name Role Phone Luiz SALAS, Sonya Primary Care Physician Encounter [facility] Date(s): 01/02/22 - 02/01/[address] [facility] Adult [address] [place] [address]- Allergies, Adverse Reactions, Alerts Substance Reaction Severity [...] Maintenance, 01/17/22 14:43:00 EDT, [facility] AL[facility], 177, cm, 01/17/22 7:37:00 EDT, Height, 75, kg, 01/11/22 12:33:00 EDT, Dry Weight Start Date: 01/17/22 Status: Ordered metFORMIN 1000 mg oral tablet 1 tablet, By Mouth, 2 times a day, # 56 tablet, 5 Refills, Maintenance, 01/17/22 14:43:00 EDT, [facility], 177, cm, 01/17/22 7:37:00 EDT, Height, 75, [...] 14:43:00 EDT, Route to Pharmacy Electronically, [facility], 177, cm, 01/17/22 7:37:00 EDT, Height, [...] 11/07/20 Active 1angioplasty 2000; 3 stents at [facility] 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 [...] Personnel Name: Sonya Dee NP Address: Address: [address] [place] [address], [address] [place], [place] [address]
--- OUTSIDE RECORDS SUMMARY | 2023-04-11 15:20 | XMS_ITS | Continuity of Care Document ---
Author Name Unknown Organization [facility] Adult Address [address] [place] [address]- Care Team Providers Care Polyethylene Bag Machine Operator Name Role Phone Luiz SALAS, Sonya Primary Care Physician [phone] Encounter [facility] Date(s): 02/01/21 - 03/03/21 [facility] Adult [address] [place] [address]- Allergies, Adverse Reactions, Alerts Substance Reaction Severity [...] 5 Refills, Maintenance, 01/16/21 10:30:00 EDT, Tablet, [facility]/pharmacy #[id number], Partial fill upon patient request if the prescription is for a schedule II opioid drug., 178, cm, 12/29/20 5:31:00 EDT, Height, 1... Start Date: 01/16/21 Stop Date: 07/15/21 Status: Ordered aspirin 81 mg oral tablet, chewable 81 mg, 1, tablet, By Mouth, Daily, # 30 tablet, Refills 5, Tot. Refills 5, Maintenance, 01/16/21 10:30:00 EDT, Route to Pharmacy Electronically, [facility]/pharmacy #[id number], Partial fill upon patient [...] capsule, 11 Refills, Maintenance,01/16/21 10:26:00 EDT, Capsule, [facility]/pharmacy #[id number], Partial fill upon patient request if the prescription is for a schedule II opioid drug., 178, cm, 0... Start Date: 01/16/21 Stop Date: 01/11/22 Status: Ordered clonazePAM 0.5 mg oral tablet 1 tablet = 0.5 mg, By Mouth, 3 times a day, # 90 tablet, 1 Refills, Maintenance, 01/16/21 10:52:00 EDT, Tablet, [facility]/pharmacy #[id number], Partial fill upon patient request if the prescription is for a schedule II opioid drug., 178, cm, 12/29/20 5:31:00 EDT,... Start Date: 01/16/21 Stop Date: 03/17/21 Status: Ordered glimepiride 4 mg oral tablet 1 tablet, By Mouth, 2 times a day, # 60 tablet, 2 Refills, Maintenance, 01/16/21 10:26:00 EDT, [facility]/pharmacy #[id number], 178, cm, 12/29/20 5:31:00 EDT, Height, 100, kg, 12/26/20 16:53:00 EDT, Dry Weight Start Date: 01/16/21 Status: Ordered lactulose 10 gm/15 ml oral syrup 15 mL, By Mouth, Daily, PRN NEEDED FOR CONSTIPATION, # 473 mL, 0 Refills, [facility], 30, TAKE 15 ML BY MOUTH DAILY NEEDED FOR CONSTIPATION, 178, cm, 02/03/21 12:52:00 EDT, Height, 100, kg, 12/26/20 16:53:00 EDT, Dry Weight Start Date: 03/01/21 Status: Ordered lisinopril 10 mg oral tablet 10 mg, 1, tablet, By Mouth, Daily, # 30 tablet, Refills 5, Tot. Refills 5, Maintenance, 01/16/21 10:29:00 EDT, Route to Pharmacy Electronically, [facility]/pharmacy #[id number], Partial fill upon patient [...] 0 Refills, Maintenance, 03/15/20 12:57:00 EST, Tablet, [facility], Partial fill upon patient request, 178, cm, 03/15/20 11:15:00 EST, Height, 105, kg, 03/12/20 6:12:00 EST, Dry W... Start Date: 03/15/20 Status: Ordered oxyCODONE 5 mg oral tablet 5 mg, 1, tablet, By Mouth, 5 times a day, MATHEMATICS INSTRUCTOR checked., # 140 tablet, Refills 0, Tot. Refills 0, Maintenance, 02/24/21 15:51:00 EDT, Route to Pharmacy Electronically, [facility]acy #[id number], Partial fillupon patient request [...] 12/28/20 12:50:00 EDT, Route to Pharmacy Electronically, [facility], Partial fill upon [...] 11/07/20 Active 1angioplasty 2000; 3 stents at [facility] 2R frontal stroke secondary to [...]
--- OUTSIDE RECORDS SUMMARY | 2023-04-11 15:20 | XMS_ITS | Continuity of Care Document ---
Author Name Unknown Organization [facility] Adult Address [address] [place] [address]- Care Team Providers Care Diabetes Manager Name Role Phone Luiz SALAS, Sonya Primary Care Physician Encounter [facility] Date(s): 09/13/21 - 10/13/21 [facility] Adult [address] [place] [address]- Allergies, Adverse Reactions, Alerts Substance Reaction Severity [...] tablet, Refills 1, Route to Pharmacy Electronically, [id number], 178, cm, 05/11/21 8:52:00 EST, Height, 81, kg, 05/06/21 2:22:00 EST, Dry Weight Start Date: 05/30/21 Status: Ordered depends xl depends xl, See Instructions, # 120 each, Refills 11, Tot. Refills 11, Maintenance, DX: incontinence N39.46, 09/08/21 8:51:00 EDT, Supply Start Date: 09/08/21 Status: Ordered lisinopril 5 mg oral tablet [...] tablet, By Mouth, 5 times a day, FILM PROCESS OPERATOR checked. fill on 09/15/21 20 tabs go [...] 10:38:00 EST, Route to Pharmacy Electronically, [facility]/pharmacy #[id number], Partial fill upon patient request [...]
--- OUTSIDE RECORDS SUMMARY | 2023-04-11 15:20 | XMS_ITS | Continuity of Care Document ---
Author Name Unknown Organization [facility] Adult Address [address] [place] [address]- Care Team Providers Care Security Specialist Name Role Phone Luiz SALAS, Sonya Primary Care Physician [phone] Encounter [facility] Date(s): 01/31/21 - 03/02/21 [facility] Adult [address] [place] [address]- Allergies, Adverse Reactions, Alerts Substance Reaction Severity [...] 5 Refills, Maintenance, 01/16/21 10:30:00 EDT, Tablet, [facility]/pharmacy #[id number], Partial fill upon patient request if the prescription is for a schedule II opioid drug., 178, cm, 12/29/20 5:31:00 EDT, Height, 1... Start Date: 01/16/21 Stop Date: 07/15/21 Status: Ordered aspirin 81 mg oral tablet, chewable 81 mg, 1, tablet, By Mouth, Daily, # 30 tablet, Refills 5, Tot. Refills 5, Maintenance, 01/16/21 10:30:00 EDT, Route to Pharmacy Electronically, [facility]/pharmacy #[id number], Partial fill upon [...] capsule, 11 Refills, Maintenance,01/16/21 10:26:00 EDT, Capsule, [facility]/pharmacy #[id number], Partial fill upon patient request if the prescription is for a schedule II opioid drug., 178, cm, 0... Start Date: 01/16/21 Stop Date: 01/11/22 Status: Ordered clonazePAM 0.5 mg oral tablet 1 tablet = 0.5 mg, By Mouth, 3 times a day, # 90 tablet, 1 Refills, Maintenance, 01/16/21 10:52:00 EDT, Tablet, [facility]/pharmacy #[id number], Partial fill upon patient request if the prescription is for a schedule II opioid drug., 178, cm, 12/29/20 5:31:00 EDT,... Start Date: 01/16/21 Stop Date: 03/17/21 Status: Ordered glimepiride 4 mg oral tablet 1 tablet, By Mouth, 2 times a day, # 60 tablet, 2 Refills, Maintenance, 01/16/21 10:26:00 EDT, [facility]/pharmacy #[id number], 178, cm, 12/29/20 5:31:00 EDT, Height, 100, kg, 12/26/20 16:53:00 EDT, Dry Weight Start Date: 01/16/21 Status: Ordered lactulose 10 gm/15 ml oral syrup 15 mL, By Mouth, Daily, PRN NEEDED FOR CONSTIPATION, # 473 mL, 0 Refills, [facility], 30, TAKE 15 ML BY MOUTH DAILY NEEDED FOR CONSTIPATION, 178, cm, 02/03/21 12:52:00 EDT, Height, 100, kg, 12/26/20 16:53:00 EDT, Dry Weight Start Date: 03/01/21 Status: Ordered lisinopril 10 mg oral tablet 10 mg, 1, tablet, By Mouth, Daily, # 30 tablet, Refills 5, Tot. Refills 5, Maintenance, 01/16/21 10:29:00 EDT, Route to Pharmacy Electronically, [facility]/pharmacy #[id number], Partial fill upon [...] 0 Refills, Maintenance, 03/15/20 12:57:00 EST, Tablet, [facility], Partial fill upon patient request, 178, cm, 03/15/20 11:15:00 EST, Height, 105, kg, 03/12/20 6:12:00 EST, Dry W... Start Date: 03/15/20 Status: Ordered oxyCODONE 5 mg oral tablet 5 mg, 1, tablet, By Mouth, 5 times a day, SKI LIFT ATTENDANT checked., # 140 tablet, Refills 0, Tot. Refills 0, Maintenance, 02/24/21 15:51:00 EDT, Route to Pharmacy Electronically, [facility]/pharmacy #[id number], Partial fillupon patient [...] 12/28/20 12:50:00 EDT, Route to Pharmacy Electronically, [facility], Partial fill upon [...] 11/07/20 Active 1angioplasty 2000; 3 stents at [facility] 2R frontal stroke secondary to [...]
--- OUTSIDE RECORDS SUMMARY | 2023-04-11 15:20 | XMS_ITS | Continuity of Care Document ---
Author Name Unknown Organization [facility] Adult Address [address] [place] [address]- Care Team Providers Care Plate Drying Machine Tender Name Role Phone Luiz SALAS, Sonya Primary Care Physician Encounter [facility] Date(s): 01/17/21 - 02/16/21 [facility] [address] [place] [address]- Allergies, Adverse Reactions, Alerts Substance Reaction Severity [...] Refills, Maintenance, 01/16/21 10:30:00 EDT, Tablet, [facility]/pharmacy #[id number], Partial fill upon patient request if the prescription is for a schedule II opioid drug., 178, cm, 12/29/20 5:31:00 EDT, Height, 1... Start Date: 01/16/21 Stop Date: 07/15/21 Status: Ordered aspirin 81 mg oral tablet, chewable 81 mg, 1, tablet, By Mouth, Daily, # 30 tablet, Refills 5, Tot. Refills 5, Maintenance, 01/16/21 10:30:00 EDT, Route to Pharmacy Electronically, [facility] 11 Refills, Maintenance,01/16/21 10:26:00 EDT, Capsule, [facility]/pharmacy #[id number], Partial fill upon patient request if the prescription is for a schedule II opioid drug., 178, cm, 0... Start Date: 01/16/21 Stop Date: 01/11/22 Status: Ordered clonazePAM 0.5 mg oral tablet 1 tablet = 0.5 mg, By Mouth, 3 times a day, # 90 tablet, 1 Refills, Maintenance, 01/16/21 10:52:00 EDT, Tablet, [facility]/pharmacy #[id number], [...] 0 Refills, Maintenance, 03/15/20 12:57:00 EST, Tablet, [facility], Partial fill upon patient request, 178, cm, 03/15/20 11:15:00 EST, Height, 105, kg, 03/12/20 6:12:00 EST, Dry W... Start Date: 03/15/20 Status: Ordered MiraLax oral powder for reconstitution = 17 Gm, By Mouth, Daily, for 14 days, dissolve in water before taking, # 238 Gm, 0 Refills, Acute 02/27/21 13:29:00 EST, 02/13/21 13:29:00 EDT, REC Powder, [facility]/pharmacy #[id number], Partial fill upon patient request if the prescription is for a schedule II... Start Date: 02/13/21 Stop Date: 02/27/21 Status: Ordered oxyCODONE 5 mg oral tablet 5 mg, 1, tablet, By Mouth, 5 times a day, FLUTE GRINDER checked., # 140 tablet, Refills 0, Tot. Refills 0, Maintenance, 01/16/21 10:52:00 EDT, Route to Pharmacy Electronically, [facility] 12/28/20 12:50:00 EDT, Route to Pharmacy Electronically, [facility], Partial fill upon [...] 11/07/20 Active 1angioplasty 2000; 3 stents at [facility] 2R frontal stroke secondary to [...]
--- OUTSIDE RECORDS SUMMARY | 2023-04-11 15:20 | XMS_ITS | Continuity of Care Document ---
Author Name Unknown Organization [facility] Address [address] [place] [address]- Care Team Providers Care Concrete Craftsman Name Role Phone Luiz SALAS, Sonya Primary Care Physician [phone] Encounter [facility] Date(s): 04/25/21 - 04/27/[address] [address] Discharge Disposition: A-D/C Home Attending Physician: Ren Zelaya DO Admitting Physician: Ksenia SAVAGE, Sakshi Referring Physician: Not on Staff, Referring MD [...] , Mild, Temperature Greater than 100.5, Routine, 04/22/21 23:50:00 EST Start Date: 04/22/21 Stop Date: 04/28/21 Status: Discontinued amLODIPine 5 mg oral tablet 5 mg, Tablet, By Mouth, 04/27/21 9:00:00 EST Start Date: 04/27/21 Stop Date: 04/27/21 Status: Completed amLODIPine 5 mg oral tablet 1 tablet = 5 mg, By Mouth, Daily, # 30 tablet, 5 Refills, Maintenance, 01/16/21 10:30:00 EDT, Tablet, [id number], Partial [...] Date: 11/14/20 Stop Date: 12/14/20 Status: Ordered cefpodoxime 200 mg oral tablet 1 tablet = 200 mg, By Mouth, Every 12 hours, # 5 tablet, 0 Refills, Acute 04/29/21 21:00:00 EST, 04/27/21 13:05:00 EST, Tablet, [id number], 178, cm, 04/27/21 4:54:00 EST, Height, 84.3, kg, 04/23/21 2:54:00 EST, Dry Weight Start Date: 04/27/21 Stop Date: 04/29/21 Status: Ordered cholecalciferol 50,000 intl units oral capsule 1 capsule = 50,000 International_Units, By Mouth, Every week, # 5 capsule, 11 Refills, Maintenance,01/16/21 10:26:00 EDT, Capsule, [id number], Partial fill upon patient request [...] tablet, 2 Refills, Maintenance, 01/16/21 10:26:00 EDT, [facility]/pharmacy #[id number], 178, cm, 12/29/20 5:31:00 EDT, Height, 100, kg, 12/26/20 16:53:00 EDT, Dry Weight Start Date: 01/16/21 Status: Ordered lactulose 10 gm/15 ml oral syrup 15 mL, By Mouth, Daily, PRN NEEDED FOR CONSTIPATION, # 473 mL, 0 Refills, [id number], 30, TAKE 15 ML BY MOUTH DAILY NEEDED FOR CONSTIPATION, 178, cm, 03/13/21 13:09:00 EST, Height, 100, kg, 12/26/20 16:53:00 EDT, Dry Weight Start Date: 04/20/21 Status: Ordered lisinopril 10 mg oral tablet 10 mg, Tablet, By Mouth, 04/27/21 9:00:00 EST Start Date: 04/27/21 Stop Date: 04/27/21 Status: Completed lisinopril 10 mg oral tablet 10 mg, 1, tablet, By Mouth, Daily, # 30 tablet, Refills 5, Tot. Refills 5, Maintenance, 01/16/21 10:29:00 EDT, Route to Pharmacy Electronically, [facility]/pharmacy [...] Maintenance, 03/15/20 12:57:00 EST, Tablet, [facility], Partial fill upon patient request, 178, cm, 03/15/20 11:15:00 EST, Height, 105, kg, 03/12/20 6:12:00 EST, Dry W... Start Date: 03/15/20 Status: Ordered multivitamin with minerals Multiple Vitamins with Minerals oral tablet 1 tablet, By Mouth, Daily, # 30 tablet, 0 Refills, Maintenance, 04/27/21 13:07:00 EST, Tablet, [facility]/pharmacy #[id number], Partial fill upon patient request if the prescription is for a schedule II opioid drug., 1 tablet By Mouth Daily, 178, cm, 04/27/21 4:54... Start Date: 04/27/21 Status: Ordered oxyCODONE 5 mg oral tablet 5 mg, 1, tablet, By Mouth, 5 times a day, AIRCRAFT ENGINEER checked., # 140 tablet, Refills 0, Tot. Refills 0, Maintenance, 03/31/21 13:33:00 EST, [id number] Partial fillupon patient request if the [...] 04/27/21 13:07:00 EST, Route to Pharmacy Electronically, [facility]/pharmacy #[id number], Partial fill upon patient requestif the prescription [...] Reports Name Date Urine Culture (URINE CULTURE) 04/23/21 Blood Culture 04/23/21 Blood Culture #2 04/23/21 Microbiology Reports TEST:Blood Culture STATUS:Unauthenticated BODY SITE: SOURCE:Blood COLLECTED DATE/TIME:04/23/21 9:30 AM Blood Culture SPECIMEN DESCRIPTION : BLOOD LAC SPECIAL REQUESTS : NONE CULTURE : NO GROWTH 4 DAYS REPORT STATUS : PRELIMINARY REPORT TEST:Blood Culture, Second Order STATUS:Unauthenticated BODY SITE: SOURCE:Blood COLLECTED DATE/TIME:04/23/21 9:27 AM Blood Culture, Second Order SPECIMEN DESCRIPTION : BLOOD RAC SPECIAL REQUESTS : NONE CULTURE : NO GROWTH 4 DAYS REPORT STATUS : PRELIMINARY REPORT TEST:Urine Culture STATUS:Auth (Verified) BODY SITE: SOURCE:URINE COLLECTED DATE/TIME:04/23/21 9:14 AM Urine Culture SPECIMEN DESCRIPTION : URINE SPECIAL REQUESTS : NONE Reflexed from [id number] CULTURE : >100,000 COL/ML ESCHERICHIA COLI REPORT STATUS : FINAL 04/25/2021 ORGANISM >100,000 COL/ML ESCHERICHIA COLI METHOD MIN. INHIB. CONC. (MCG/ML) AMPICILLIN SUSCEPTIBLE AMPICILLIN/SULBACTAM SUSCEPTIBLE AMOXICILLIN/CLAVULAN SUSCEPTIBLE CEFAZOLIN SUSCEPTIBLE CEFEPIME SUSCEPTIBLE CEFTRIAXONE SUSCEPTIBLE CIPROFLOXACIN SUSCEPTIBLE ERTAPENEM SUSCEPTIBLE GENTAMICIN SUSCEPTIBLE LEVOFLOXACIN SUSCEPTIBLE MEROPENEM SUSCEPTIBLE NITROFURANTOIN SUSCEPTIBLE PIPERACILLIN/TAZOBAC SUSCEPTIBLE TRIMETH/SULFAMETHOX SUSCEPTIBLE TETRACYCLINE SUSCEPTIBLE Radiology Reports * Exam Date Time Procedure Performing Provider Status 04/22/21 6:19 PM Chest 2 Views Frontal and Lat D'No Mendoza oberta; Auth (Verified) Notes: (Chest 2 Views Frontal and Lat) Reason For Exam: Shortness of Breath, Fever;Other: RESULT: Chest 2 Views Frontal and Lat Chest 2 Views Frontal and Lat Reason: Other:; Shortness of Breath, Fever; Clinical Question(s): Pneumonia COMPARISON: 02/13/2021 FINDINGS: LINES AND TUBES: None. LUNGS AND PLEURA: Clear lungs. Normal pulmonary vascularity. No pleural effusion. No pneumothorax. HEART, MEDIASTINUM AND MAHESH: Heart is normal in size. Normal upper mediastinal and hilar contour. BONES AND SOFT TISSUES: No acute abnormality. IMPRESSION: No acute abnormality. WSN: [id number] Ordering Physician: Do Lane Dictated By: Saqib Carroll MD Dictated Date/Time: 04/22/21 6:21 pm Reviewed By: Saqib Carroll MD Signed By: Saqib Carroll MD Signed Date/Time: 04/22/21 6:21 pm Transcribed By: ANDREAS Transcribed Date/Time: 04/22/21 6:20 pm Vital Signs Most recent to oldest [Reference Range]: 1 2 3 Height 178 cm (04/27/21 4:54 AM) 178 cm (04/26/21 8:28 PM) 178 cm (04/26/21 4:57 AM) Weight 84.3 kg (04/23/21 2:53 AM) Oxygen Saturation [94-100 %] 96 % (04/27/21 1:00 PM) 94 % (04/27/21 4:54 AM) 93 % *L* (04/26/21 8:28 PM) Pulse Rate [55-90 bpm] 84 bpm (04/27/21 1:00 PM) 76 bpm (04/27/21 4:54 AM) 75 bpm (04/26/21 8:28 PM) Body Mass Index [18.5-24.99] 26.61 *H* (04/23/21 2:53 AM) Blood Pressure [90-138/55-84 mm Hg] 129/87mm Hg (04/27/21 1:00 PM) 150/98mm Hg *H* (04/27/21 12:53 PM) 150/98mm Hg *H* (04/27/21 12:52 PM) Respiratory Rate [16-30 br/min] 18 br/min (04/27/21 1:00 PM) 18 br/min (04/27/21 4:54 AM) 18 br/min (04/26/21 10:27 PM) Temperature [96.8-100.4 DegF] 98.1 DegF (04/27/21 1:00 PM) 97.5 DegF (04/27/21 4:54 AM) 98.1 DegF (04/26/21 8:28 PM) Mode of Delivery (Oxygen) Room air (04/27/21 4:54 AM) Room air (04/26/21 8:28 PM) Room air (04/26/21 4:57 AM) Blood pressure sites Arm, left (04/27/21 1:00 PM) Arm, left (04/27/21 4:54 AM) Arm, left (04/26/21 8:28 PM) Temperature Route Oral (04/27/21 1:00 PM) Oral (04/27/21 4:54 AM) Oral (04/26/21 8:28 PM) Dry Weight 84.3 kg (04/23/21 2:53 AM) Social History Social History Type Response Smoking Status Smoker, current stat us unknown; Type: Cigarettes; Other: 1/2-1 pk; entered on: 05/10/20 Sex
--- OUTSIDE RECORDS SUMMARY | 2023-04-11 15:20 | XMS_ITS | Continuity of Care Document ---
Author Name Unknown Organization [facility] Adult Address [address] [place] [address]- Care Team Providers Care Rn Plastics Name Role Phone Luiz SALAS, Sonya Primary Care Physician [place] [facility] [place]s): 02/03/21 - 03/05/21 [facility] Adult [address] [place] [phone]- Attending Physician: AdmJacobo lopez Admitting Physician: AdmtrJacobo Referring Physician: Admtr, Ar8 [...] Refills, Maintenance, 01/16/21 10:30:00 EDT, [facility]t, [id number], Partial fill upon patient request if the [...] FOR CONSTIPATION, # 473 mL, 0 Refills, [id number], 30, TAKE 15 ML BY MOUTH DAILY NEEDED FOR CONSTIPATION, 178, cm, 02/03/21 12:52:00 EDT, Height, 100, kg, 12/26/20 16:53:00 EDT, Dry Weight Start Date: 03/01/21 Status: Ordered lisinopril 10 mg oral tablet 10 mg, 1, tablet, By Mouth, Daily, # 30 tablet, Refills 5, Tot. Refills 5, Maintenance, 01/16/21 10:29:00 EDT, Route to Pharmacy Electronically, [facility]/pharmacy #[id number], Partial fill upon patient request [...] 0 Refills, Maintenance, 03/15/20 12:57:00 EST, Tablet, [facility], Partial fill upon patient request, 178, cm, 03/15/20 11:15:00 EST, Height, 105, kg, 03/12/20 6:12:00 EST, Dry W... Start Date: 03/15/20 Status: Ordered oxyCODONE 5 mg oral tablet 5 mg, 1, tablet, By Mouth, 5 times a day, FACILITATOR checked., # 140 tablet, Refills 0, Tot. Refills 0, Maintenance, 02/24/21 15:51:00 EDT, Route to Pharmacy Electronically, [facility]/pharmacy #[id number], Partial fillupon patient request if [...] 12/28/20 12:50:00 EDT, Route to Pharmacy Electronically, [facility], Partial fill upon patient [...] 11/07/20 Active 1angioplasty 2000; 3 stents at [facility] 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 [...]
--- OUTSIDE RECORDS SUMMARY | 2023-04-11 15:20 | XMS_ITS | Continuity of Care Document ---
Author Name Unknown Organization [facility] Adult Address [address] [place] [address]- Care Team Providers Care Family Health Nurse Practitioner Name Role Phone Zachery MYLES MD, Leonardo Webber Primary Care Physician Encounter [facility] Date(s): 03/29/20 - 04/28/20 [facility] Adult [address] [place] [phone]- Allergies, Adverse Reactions, Alerts Substance Reaction Severity Status penicillin Active Medications Azithromycin 5 Day Dose Pack 250 mg oral tablet 1 pack/packet, By Mouth, Once, # 6 tablet, 0 Refills, Soft Stop, 04/14/20 11:41:00 EST, Tablet, [facility] #[id number], Partial fill upon patient request if the prescription is for a schedule IIopioid drug., 178, cm, 03/15/20 11:15:00 EST, Heigh... Start Date: 04/14/20 Status: Ordered clonazePAM 0.5 mg oral tablet TK 1 T PO TID PRN ANXIETY Start Date: 03/12/20 Status: Ordered escitalopram 10 mg oral tablet TK 1 T PO QD Start Date: 03/12/20 Status: Ordered metFORMIN 1000 mg oral tablet 1 tablet = 1,000 mg, By Mouth, 2 times a day, # 60 tablet, 0 Refills, Maintenance, 03/15/20 12:57:00 EST, Tablet, [facility], Partial fill upon patient request, 178, cm, 03/15/20 11:15:00 EST, Height, 105, kg, 03/12/20 6:12:00 EST, Dry W... Start Date: 03/15/20 Status: Ordered ofloxacin 0.3% otic solution See Instructions, 5 drops Right ear once daily x 7 days, # 10 mL, Refills 0, Tot. Refills 0, Maintenance, 03/15/20 14:25:00 EST, Instructions Replace Required Details, Route to Pharmacy Electronically, [facility], Partial fill upon patie... Start Date: 03/15/20 Status: Ordered oxyCODONE 5 mg oral tablet TAKE 1 TABLET BY MOUTH EVERY 5 HOURS NEEDED FOR PAIN Start Date: 03/12/20 Status: Ordered Probiotic Formula (Bacillus Coagulans) oral capsule 1 capsule, By Mouth, Daily, # 10 capsule, 0 Refills, Maintenance, 04/14/20 11:39:00 EST, Capsule, [facility] #[id number], Partial fill upon patient request if the prescription is for a schedule II opioid drug., 1 capsule By Mouth Daily, 178, cm,... Start Date: 04/14/20 Status: Ordered simvastatin 40 mg oral tablet 40 mg, 1, tablet, By Mouth, Daily at bedtime, # 30 tablet, Refills 0, Tot. Refills 0, Maintenance, 03/15/20 12:20:00 EST, Route to Pharmacy Electronically, [facility], Partial fill uponpatient request, 178, cm, 03/15/20 11:15:00 EST, He... Start Date: 03/15/20 Status: Ordered Problem List Condition Effective Dates Status Health Status Inform ant Benign hypertension(Confirmed) Active CAD (coronary artery disease)(Confirmed) 1 Active Chronic lower back pain(Confirmed) Active Dyslipidemia(Confirmed) Active 1angioplasty 2000; 3 stents at [facility]
--- OUTSIDE RECORDS SUMMARY | 2023-04-11 15:20 | XMS_ITS | Continuity of Care Document ---
Author Name Unknown Organization [facility] Adult Address [address] [place] [address]- Care Team Providers Care Industrial Millwright Name Role Phone Luiz SALAS, Sonya Primary Care Physician Encounter [facility] Date(s): 09/19/21 - 10/19/21 [facility] Adult [address] [place] [phone]- Allergies, Adverse Reactions, Alerts Substance Reaction Severity [...] tablet, Refills 1, Route to Pharmacy Electronically, [id number], 178, cm, 05/11/21 8:52:00 EST, Height, 81, [...] 05/02/21 10:38:00 EST, Route to Pharmacy Electronically, [facility]/pharmacy #[id number], Partial fill upon patient request if the [...] 11/07/20 Active 1angioplasty 2000; 3 stents at [facility] 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 [...]
--- OUTSIDE RECORDS SUMMARY | 2023-04-11 15:21 | XMS_ITS | Continuity of Care Document ---
Author Name Unknown Organization [facility] Adult Address [address] [place] [address]- Care Team Providers Care Utility Bill Complaints Investigator Name Role Phone Luiz SALAS, Sonya Primary Care Physician [phone] Encounter [facility] Date(s): 09/11/21 - 10/11/21 [facility] Adult [address] [place] [phone]- Allergies, Adverse Reactions, Alerts Substance Reaction Severity [...] Refills, Maintenance, 05/02/21 10:38:00 EST, Tablet, [id number], Partial fill upon patient request if the [...] tablet, Refills 1, Route to Pharmacy Electronically, [facility], 178, cm, 05/11/21 8:52:00 EST, Height, 81, [...] tablet, By Mouth, 5 times a day, CHEF DE FROID checked. fill on 09/15/21 20 tabs go [...] 05/02/21 10:38:00 EST, Route to Pharmacy Electronically, [facility]/pharmacy #[id number], Partial fill upon patient [...] 11/07/20 Active 1angioplasty 2000; 3 stents at [facility] 2R frontal stroke secondary to [...]
--- OUTSIDE RECORDS SUMMARY | 2023-04-11 15:21 | XMS_ITS | Continuity of Care Document ---
Author Name Unknown Organization [facility] Adult Address [address] [place] [address]- Care Team Providers Care Loan Expeditor Name Role Phone Luiz SAALS, Sonya Primary Care Physician Encounter [facility] [place] [place] Date(s): 08/08/20 - 08/15/20 [facility] Adult [address] [place] [id number] Attending Physician: Samira Brooks MD Allergies, Adverse Reactions, Alerts Substance Reaction [...] 10/07/20 11:44:00 EDT, 08/08/20 11:44:00 EDT, Tablet, [facility][id number], Partial fill upon patient request if the prescription is for a schedule II opio... Start Date: 08/08/20 Stop Date: 10/07/20 Status: Ordered glimepiride 4 mg oral tablet 1 tablet = 4 mg, By Mouth, 2 times a day, # 60 tablet, 2 Refills, Maintenance, 10/07/20 11:44:00 EDT, Tablet, [facility] #[id number], Partial fill upon patient request if the prescription is fora schedule II opioid drug., 177.8, cm, 08/08/20 11:... Start Date: 10/07/20 Stop Date: 01/05/21 Status: Ordered lisinopril 20 mg oral tablet 20 mg, 1, tablet, By Mouth, Daily, # 90 tablet, Refills 0, Tot. Refills 0, Maintenance, 05/12/20 9:54:00 EST, Route to Pharmacy Electronically, [facility] #[id number], Partial fill upon patient request if the prescription is for a schedule II opi... Start Date: 05/12/20 Stop Date: 08/10/20 Status: Ordered metFORMIN 1000 mg oral tablet 1 tablet = 1,000 mg, By Mouth, 2 times a day, # 60 tablet, 0 Refills, Maintenance, 03/15/20 12:57:00 EST, Tablet, [facility], Partial fill upon patient request, 178, cm, 03/15/20 11:15:00 EST, Height, 105, kg, 03/12/20 6:12:00 EST, Dry W... Start Date: 03/15/20 Status: Ordered ofloxacin 0.3% otic solution See Instructions, 5 drops Right ear once daily x 7 days, # 10 mL, Refills 0, Tot. Refills 0, Maintenance, 03/15/20 14:25:00 EST, Instructions Replace Required Details, Route to Pharmacy Electronically, [facility], Partial fill upon patie... Start Date: 03/15/20 Status: Ordered oxyCODONE 5 mg oral tablet 5 mg, 1, tablet, By Mouth, 5 times a day, SURVEY DIRECTOR checked., # 140 tablet, Refills 0, Tot. Refills 0, Maintenance, 08/09/20 15:20:00 EDT, Route to Pharmacy Electronically, [facility][id number], Partial fill upon patient request if the prescription i... Start Date: 08/09/20 Status: Ordered Probiotic Formula (Bacillus Coagulans) oral capsule 1 capsule, By Mouth, Daily, # 10 capsule, 0 Refills, Maintenance, 04/14/20 11:39:00 EST, Capsule, [facility][id number], Partial fill upon patient request if the prescription is for a schedule II opioid drug., 1 capsule By Mouth Daily, 178, cm,... Start Date: 04/14/20 Status: Ordered simvastatin 40 mg oral tablet 40 mg, 1, tablet, By Mouth, Daily at bedtime, # 30 tablet, Refills 0, Tot. Refills 0, Maintenance, 03/15/20 12:20:00 EST, Route to Pharmacy Electronically, [facility], Partial fill uponpatient request, 178, cm, 03/15/20 11:15:00 EST, He... Start Date: 03/15/20 Status: Ordered Problem List Condition Effective Dates Status Health Status Inform ant Benign hypertension(Confirmed) Active CAD (coronary artery disease)(Confirmed) 1 Active Chronic lower back pain(Confirmed) Active Diabetes mellitus(Confirmed) Active Encephalopathy(Confirmed) Active Dyslipidemia(Confirmed) Active 1angioplasty 2000; 3 stents at [facility] Vital Signs Most recent to oldest [Reference Range]: 1 Height 177.8 cm (08/08/20 11:27 AM) Weight 109.2 kg (08/08/20 11:27 AM) Oxygen Saturation [94-100 %] 98 % (08/08/20 11:27 AM) Pulse Rate [55-90 bpm] 87 bpm (08/08/20 11:27 AM) Body Mass Index [18.5-24.99] 34.54 *>HHI* (08/08/20 11:27 AM) Blood Pressure [90-138/55-84 mm Hg] 120/ 62mm Hg (08/08/20 11:27 AM) Blood pressure sites Arm, right (08/08/20 11:27 AM) Weight Obtained Via Standing scale (08/08/20 11:27 AM) Social History Social History Type Response Smoking Status Smoker, current stat us unknown; Type: Cigarettes; Other: 1/2-1 pk; entered on: 05/10/20 Sex
--- OUTSIDE RECORDS SUMMARY | 2023-04-11 15:21 | XMS_ITS | Continuity of Care Document ---
Author Name Unknown Organization [facility] Adult Address [address] [place] [address]- Care Team Providers Care Magnetic Prospecting Operator Name Role Phone Luiz SALAS, Sonya Primary Care Physician Encounter [facility] Date(s): 02/20/21 - 03/22/21 [facility] Adult [address] [place] [phone]- Allergies, Adverse Reactions, Alerts Substance Reaction Severity [...] Refills, Maintenance, 01/16/21 10:30:00 EDT, Tablet, [id number], Partial fill upon patient request if the [...] capsule, 11 Refills, Maintenance,01/16/21 10:26:00 EDT, Capsule, [facility] #[id number], Partial fill upon patient request if the prescription is for a schedule II opioid drug., 178, cm, 0... Start Date: 01/16/21 Stop Date: 01/11/22 Status: Ordered clonazePAM 0.5 mg oral tablet 1 tablet = 0.5 mg, By Mouth, 3 times a day, # 90 tablet, 1 Refills, Maintenance, 01/16/21 10:52:00 EDT, Tablet, [facility]/pharm[facility] #[id number], Partial fill upon patient request if the prescription is for a schedule II opioid drug., 178, cm, 12/29/20 5:31:00 EDT,... Start Date: 01/16/21 Stop Date: 03/17/21 Status: Ordered glimepiride 4 mg oral tablet 1 tablet, By Mouth, 2 times a day, # 60 tablet, 2 Refills, Maintenance, 01/16/21 10:26:00 EDT, [facility]/pharmacy #[id number], 178, cm, 12/29/20 5:31:00 EDT, Height, 100, kg, 12/26/20 16:53:00 EDT, Dry Weight Start Date: 01/16/21 Status: Ordered lactulose 10 gm/15 ml oral syrup 15 mL, By Mouth, Daily, PRN NEEDED FOR CONSTIPATION, # 473 mL, 0 Refills, [facility] [address], 30, TAKE 15 ML BY MOUTH DAILY NEEDED FOR CONSTIPATION, 178, cm, 02/03/21 12:52:00 EDT, Height, 100, kg, 12/26/20 16:53:00 EDT, Dry Weight Start Date: 03/01/21 Status: Ordered lisinopril 10 mg oral tablet 10 mg, 1, tablet, By Mouth, Daily, # 30 tablet, Refills 5, Tot. Refills 5, Maintenance, 01/16/21 10:29:00 EDT, Route to Pharmacy Electronically, [facility]/pharmacy #[id number], Partial fill upon patient request [...] 0 Refills, Maintenance, 03/15/20 12:57:00 EST, Tablet, [facility], Partial fill upon patient request, 178, cm, 03/15/20 11:15:00 EST, Height, 105, kg, 03/12/20 6:12:00 EST, Dry W... Start Date: 03/15/20 Status: Ordered oxyCODONE 5 mg oral tablet 5 mg, 1, tablet, By Mouth, 5 times a day, HUSBANDRY TECHNICIAN checked., # 140 tablet, Refills 0, Tot. Refills 0, Maintenance, 02/24/21 15:51:00 EDT, Route to Pharmacy Electronically, [facility]/pharmacy #[id number], Partial fillupon patient request if [...] 12/28/20 12:50:00 EDT, Route to Pharmacy Electronically, [facility], Partial fill upon patient [...]
--- OUTSIDE RECORDS SUMMARY | 2023-04-11 15:21 | XMS_ITS | Continuity of Care Document ---
Author Name Unknown Organization [facility] Adult Address [address] [place] [address]- Care Team Providers Care Room Service Food Server Name Role Phone Luiz SALAS, Sonya Primary Care Physician Encounter [facility] Date(s): 11/01/21 - 12/01/[address] [facility] Adult [address] [place] [address]- Allergies, Adverse Reactions, Alerts Substance Reaction Severity [...] Daily, # 30 tablet, Refills 0, Maintenance, 11/28/21 19:32:00 EDT, Partial fill upon patient request if the prescription is for a schedule II opioid drug. Start Date: 11/28/21 Status: Ordered depends xl depends xl, See [...] opioid drug. Start Date: 11/20/21 Status: Ordered magnesium oxide 400 mg oral [...] 05/02/21 10:38:00 EST, Route to Pharmacy Electronically, [facility]/pharmacy #[id number], Partial fill upon patient request [...] 11/07/20 Active 1angioplasty 2000; 3 stents at [facility] 2R frontal stroke secondary [...]
--- OUTSIDE RECORDS SUMMARY | 2023-04-11 15:21 | XMS_ITS | Continuity of Care Document ---
Author Name Unknown Organization [facility] Address [address] [place] [id number]- Care Team Providers Care Splunk Developer Name Role Phone Luiz SALAS, Sonya Primary Care Physician [phone] Encounter [facility] Date(s): 12/27/21 - 12/29/[address] [address]- Encounter Diagnosis Fall(Final) - 12/27/21 Discharge Disposition: A-D/C Home Attending Physician: Charanjit SAVAGE, Cesia Admitting Physician: Antonieta Landon DO Referring Physician: Not on Staff, Referring [...] , Mild, Temperature Greater than 100.5, Routine, 12/27/21 19:55:00 EDT Start Date: 12/27/21 Stop Date: 12/29/21 Status: Discontinued Aspirin Low Dose 81 mg oral tablet, chewable 1 tablet, By Mouth, Daily, # 28 tablet, 12 Refills, [facility], 178, cm, 11/10/21 9:32:00 EDT, Height, 77.5, [...] 05/02/21 10:38:00 EST, Route to Pharmacy Electronically, [facility]/pharmacy #[id number], Partial fill upon patient request [...] Underweight(Confirmed) Active 1angioplasty 2000; 3 stents at [facility] 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 S/P Elective Coiling of Unruptured Aneurysm with Subsequent Left-Sided Weakness: Acute nonhemorrhagic infarct in the RIGHT posterior frontal lobe: Results Orders for Microbiology Reports Name Date Blood Culture 12/27/21 Blood Culture #2 12/27/21 Microbiology Reports TEST:Blood Culture, Second Order STATUS:Unauthenticated BODY SITE: SOURCE:Blood COLLECTED DATE/TIME:12/27/21 4:40 PM Blood Culture, Second Order SPECIMEN DESCRIPTION : BLOOD LAC SPECIAL REQUESTS : NONE CULTURE : NO GROWTH AFTER 48 HOURS REPORT STATUS : PRELIMINARY REPORT TEST:Blood Culture STATUS:Unauthenticated BODY SITE: SOURCE:Blood COLLECTED DATE/TIME:12/27/21 4:24 PM Blood Culture SPECIMEN DESCRIPTION : BLOOD R AC SPECIAL REQUESTS : NONE CULTURE : NO GROWTH AFTER 48 HOURS REPORT STATUS : PRELIMINARY REPORT Radiology Reports * Exam Date Time Procedure Performing Provider Status 12/27/21 7:35 PM Chest Portable Kirby Coreas; Zarina (Verified) Notes: (Chest Portable) Reason For Exam: Shortness of Breath RESULT: Chest Portable Chest Portable AP upright at 7:23 PM Reason: Shortness of Breath; Clinical Question(s): Pneumonia COMPARISON: 11/28/2021 FINDINGS: LINES AND TUBES: None. LUNGS AND PLEURA: Clear lungs. Normal pulmonary vascularity. No pleural effusion. No pneumothorax. HEART, MEDIASTINUM AND MAHESH: Heart is normal in size. Normal upper mediastinal and hilar contour. BONES AND SOFT TISSUES: No acute abnormality. IMPRESSION: Normal chest. WSN: [id number] Ordering Physician: Delfina Glez Dictated By: Daljit Ventura MD Dictated Date/Time: 12/27/21 7:40 pm Reviewed By: Daljit Ventura MD Signed By: Daljit Ventura MD Signed Date/Time: 12/27/21 7:40 pm Transcribed By: ANDREAS Transcribed Date/Time: 12/27/21 7:40 pm Vital Signs Most recent to oldest [Reference Range]: 1 2 3 Height 178 cm (12/29/21 8:14 AM) 178 cm (12/28/21 7:33 PM) 178 cm (12/28/21 7:00 AM) Weight 55.5 kg (12/28/21 6:57 AM) 73 kg (12/28/21 1:51 AM) 73 kg (12/27/21 11:49 PM) Oxygen Saturation [94-100 %] 100 % (12/29/21 8:14 AM) 97 % (12/28/21 7:33 PM) 99 % (12/28/21 6:57 AM) Pulse Rate [55-90 bpm] 58 bpm (12/29/21 8:14 AM) 63 bpm (12/28/21 7:33 PM) 48 bpm *L* (12/28/21 6:57 AM) Body Mass Index [18.5-24.99] 17.52 *L* (12/28/21 6:57 AM) 23.04 (12/28/21 1:51 AM) 23.04 (12/27/21 11:49 PM) Blood Pressure [90-138/55-84 mm Hg] 149/72mm Hg *H* (12/29/21 8:14 AM) 133/73mm Hg (12/28/21 7:33 PM) 122/62mm Hg (12/28/21 6:57 AM) Respiratory Rate [16-30 br/min] 18 br/min (12/29/21 9:15 AM) 18 br/min (12/29/21 8:14 AM) 19 br/min (12/29/21 5:14 AM) Temperature [96.8-100.4 DegF] 97.5 DegF (12/29/21 8:14 AM) 97.8 DegF (12/28/21 7:33 PM) 98.2 DegF (12/28/21 6:57 AM) Mode of Delivery (Oxygen) Room air (12/29/21 8:14 AM) Room air (12/28/21 7:33 PM) Room air (12/28/21 7:00 AM) Blood pressure sites Arm, right (12/29/21 8:14 AM) Arm, left (12/28/21 7:33 PM) Arm, right (12/28/21 7:00 AM) Temperature Route Oral (12/29/21 8:14 AM) Oral (12/28/21 7:33 PM) Oral (12/28/21 7:00 AM) Dry Weight 73 kg (12/28/21 1:51 AM) 73 kg (12/27/21 11:49 PM) 73 kg (12/27/21 4:07 PM) Weight Obtained Via Bed scale (12/28/21 6:57 AM) Patient/family stated (12/27/21 4:07 PM) Dry Weight Obtained Via Patient/family stated (12/27/21 4:07 PM) Social History Social History Type Response Smoking Status 5-9 cigarettes (betw een 1/4 to 1/2 pack)/day in last 30 days entered on: 11/28/21 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 LUNGS AND PLEURA: Clear lungs. Normal pulmonary vascularity. No pleural effusion. No pneumothorax. HEART, MEDIASTINUM AND MAHESH: Heart is normal in size. Normal upper mediastinal and hilar contour. BONES AND SOFT TISSUES: No acute abnormality. IMPRESSION: Normal chest. WSN: [id number] Ordering Physician: Delfina Glez Dictated By: Daljit Ventura MD Dictated Date/Time: 12/27/21 7:40 pm Reviewed By: Daljit Ventura MD Signed By: Daljit Ventura MD Signed Date/Time: 12/27/21 7:40 pm Transcribed By: ANDREAS Transcribed Date/Time: 12/27/21 7:40 pm Care Team Personnel Name: Sonya Dee NP Address: [address] [place] [address], [address] [place], [place] [address]
--- OUTSIDE RECORDS SUMMARY | 2023-04-11 15:21 | XMS_ITS | Continuity of Care Document ---
Author Name Unknown Organization [facility] ter Address [address] [place] [address]- Care Team Providers Care Administrative Assistant Name Role Phone Luiz SALAS, Sonya Primary Care Physician Encounter [facility] Date(s): 11/28/21 - 11/30/[address] [address]- Encounter Diagnosis Fall(Final) - 11/28/21 H/O: CVA (cerebrovascular accident)(Discharge Diagnosis) - 11/28/21 CAD in [place] artery(Discharge Diagnosis) - 11/28/21 HTN (hypertension)(Discharge Diagnosis) - 11/28/21 HLD (hyperlipidemia)(Discharge Diagnosis) - 11/28/21 Chronic GERD(Discharge Diagnosis) - 11/28/21 Fall(Final) - 11/30/21 Discharge Disposition: A-D/C Home Attending Physician: Sheng Blair MD Admitting Physician: Irving Gan MD Referring Physician: Not on Staff, Referring [...] , Mild, Temperature Greater than 100.5, Routine, 11/28/21 14:09:00 EDT Start Date: 11/28/21 Stop Date: 11/30/21 Status: Discontinued Aspirin Low Dose 81 mg [...] 05/02/21 10:38:00 EST, Route to Pharmacy Electronically, 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 S/P Elective Coiling of Unruptured Aneurysm with Subsequent Left-Sided Weakness: Acute nonhemorrhagic infarct in the RIGHT posterior frontal lobe: Diagnosis Diagnosis Type Effective Dates Health Status Cl inical Service Informant H/O: CVA (cerebrovascular accident) Discharge Diagnosis 11/28/21 CAD in [place] artery Discharge Diagnosis 11/28/21 HTN (hypertension) Discharge Diagnosis 11/28/21 HLD (hyperlipidemia) Discharge Diagnosis 11/28/21 Chronic GERD Discharge Diagnosis 11/28/21 Results Radiology Reports * Exam Date Time Procedure Performing Provider Status 11/29/21 8:36 AM Foot Min 3 Views Left Azucena Cook; Zarina (Verified) Notes: (Foot Min 3 Views Left) Reason For Exam: Pain RESULT: Foot Min 3 Views Left Foot Min 3 Views Left, 3 views Reason: Pain; Clinical Question(s): Fracture COMPARISON: None. FINDINGS: No fractures or bone lesions. No arthritic changes. Normal soft tissues. There is a moderate-sized plantar calcaneal spur. IMPRESSION: No definite acute osseous abnormality is noted involving the left foot. WSN: [id number] Ordering Physician: Donald Gold Dictated By: Aramis Chamberlain MD, V Dictated Date/Time: 11/29/21 11:21 a Reviewed By: Aramis Chamberlain MD, V Signed By: Aramis Chamberlain MD, V Signed Date/Time: 11/29/21 11:21 am Transcribed By: ANDREAS Transcribed Date/Time: 11/29/21 11:21 am * Exam Date Time Procedure Performing Provider Status 11/28/21 12:52 PM XR Femur 2 Views Left Willy Obrien (Verified) Notes: (XR Femur 2 Views Left) Reason For Exam: with Pain;Trauma RESULT: Femur 2 Views Left Femur 2 Views Left, 2 views REASON: Trauma; with Pain; Clinical Question(s): Fracture COMPARISON: Pelvis from 11/28/2021 FINDINGS: No fracture, dislocation or bone lesion. Mild degenerative change of the left hip. Minimal degenerative change of the left knee. Normal soft tissues. IMPRESSION: No evidence of acute osseous abnormality. WSN: [id number] Ordering Physician: Shin Duran Dictated By: Jose Vasquez MD Dictated Date/Time: 11/28/21 1:36 pm Reviewed By: Jose Vasquez MD Signed By: Jose Vasquez MD Signed Date/Time: 11/28/21 1:36 pm Transcribed By: ANDREAS Transcribed Date/Time: 11/28/21 1:35 pm * Exam Date Time Procedure Performing Provider Status 11/28/21 12:31 PM Pelvis 1 or 2 Views Ashley Mata [facility] (Verified) Notes: (Pelvis 1 or 2 Views) Reason For Exam: with Pain;Trauma RESULT: Pelvis 1 or 2 Views Pelvis 1 or 2 Views REASON: Trauma; with Pain; Clinical Question(s): Fracture COMPARISON: None. FINDINGS: There is no fracture or dislocation. Mild degenerative changes of the hips and visualized spine. Normal soft tissues. IMPRESSION: No evidence of acute osseous abnormality. WSN: [id number] Ordering Physician: Shin Duran Dictated By: Jose Vasquez MD Dictated Date/Time: 11/28/21 1:04 pm Reviewed By: Jose Vasquez MD Signed By: Jose Vasquez MD Signed Date/Time: 11/28/21 1:04 pm Transcribed By: ANDREAS Transcribed Date/Time: 11/28/21 1:04 pm * Exam Date Time Procedure Performing Provider Status 11/28/21 12:31 PM Chest Portable Ashley Mata ( Verified) Notes: (Chest Portable) Reason For Exam: Pain;Other: RESULT: Chest Portable Chest Portable Reason: Other:; Pain; Clinical Question(s): Other:; Fracture, pneumothorax, pulmonary contusion COMPARISON: None. FINDINGS: LINES AND TUBES: None. LUNGS AND PLEURA: Clear lungs. Normal pulmonary vascularity. No pleural effusion. No pneumothorax. HEART, MEDIASTINUM AND MAHESH: Heart is normal in size. Normal upper mediastinal and hilar contour. BONES AND SOFT TISSUES: No acute abnormality. Small electronic device probably overlying the patient in the region of the right lower chest. Clinical correlation is recommended. IMPRESSION: No acute abnormality. WSN: [id number] Ordering Physician: Shin Duran Dictated By: Aramis Chamberlain MD, V Dictated Date/Time: 11/28/21 12:53 p Reviewed By: Aramis Chamberlain MD, V Signed By: Aramis Chamberlain MD, V Signed Date/Time: 11/28/21 12:53 pm Transcribed By: ANDREAS Transcribed Date/Time: 11/28/21 12:52 pm Vital Signs Most recent to oldest [Reference Range]: 1 2 3 Height 178 cm (11/30/21 7:28 AM) 178 cm (11/30/21 4:43 AM) 178 cm (11/29/21 11:44 PM) Weight 71.2 kg (11/28/21 6:03 PM) Oxygen Saturation [94-100 %] 99 % (11/30/21 7:28 AM) 97 % (11/30/21 4:43 AM) 96 % (11/29/21 11:44 PM) Pulse Rate [55-90 bpm] 64 bpm (11/30/21 7:28 AM) 58 bpm (11/30/21 4:43 AM) 65 bpm (11/29/21 11:44 PM) Body Mass Index [18.5-24.99] 22.47 (11/28/21 6:03 PM) Blood Pressure [90-138/55-84 mm Hg] 173/64mm Hg *H* (11/30/21 7:28 AM) 161/76mm Hg *H* (11/30/21 4:43 AM) 142/69mm Hg *H* (11/29/21 11:44 PM) Respiratory Rate [16-30 br/min] 16 br/min (11/30/21 10:11 AM) 16 br/min (11/30/21 9:00 AM) 18 br/min (11/30/21 7:28 AM) Temperature [96.8-100.4 DegF] 97.9 DegF (11/30/21 7:28 AM) 97.4 DegF (11/30/21 4:43 AM) 98 DegF (11/29/21 11:44 PM) Mode of Delivery (Oxygen) Room air (11/30/21 4:43 AM) Room air (11/29/21 11:44 PM) Room air (11/29/21 7:09 PM) Blood pressure sites Arm, left (11/30/21 7:28 AM) Arm, left (11/30/21 4:43 AM) Arm, left (11/29/21 11:44 PM) Temperature Route Oral (11/30/21 7:28 AM) Oral (11/30/21 4:43 AM) Oral (11/29/21 11:44 PM) Dry Weight 70.5 kg (11/28/21 6:03 PM) Weight Obtained Via Bed scale (11/28/21 6:03 PM) Dry Weight Obtained Via Patient/family s tated (11/28/21 6:03 PM) Social History Social History Type Response Smoking Status 5-9 cigarettes (betw een 1/4 to 1/2 pack)/day in last 30 days entered on: 11/28/21 Sex
--- OUTSIDE RECORDS SUMMARY | 2023-04-11 15:21 | XMS_ITS | Continuity of Care Document ---
Author Name Unknown Organization [facility] Adult Address [address] [place] [address]- Care Team Providers Care Confectionery Cooker Name Role Phone Luiz SALAS, Sonya Primary Care Physician [phone] Encounter [facility] Date(s): 11/16/22 - 12/16/22 [facility] Adult [address] [place] [address]- Allergies, Adverse Reactions, Alerts Substance Reaction Severity [...] pneumococcal 23-valent vaccine 02/04/13 Recorded 1Result Comment: [facility]: [id number] Medications albuterol-ipratropium 3 mg-0.5 mg/3 ml inhalation [...] Height, 79.5, kg, 10/20/22 13:34:00 EDT, Dry Jamil.. Start Date: 11/23/22 Status: Ordered Freestyle Lite Test Strips See Instructions, # 200 each, Refills 11, Tot. Refills 11, Maintenance, Use to check blood sugar three times a day DX: Diabetes Mellitus E11.9, 11/23/22 13:46:00 EDT, Supply, 178, cm, 11/23/22 11:46:00 EDT, Height, 79.5, kg, 10/20/22 13:34:00 EDT, . Start Date: 11/23/22 Status: Ordered large pull ups large pull [...] Confirmed Active 1angioplasty 2000; 3 stents at [facility] 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 [...] Phuong Balderas RN Position: [facility] RN Member Role: Primary Care Nurse Name: Evelyn Mcnulty RN Position: [facility] RN Member Role: Primary Care Nurse Name: Yanely Shanks RN Position: [facility] RN Member Role: Primary Care Nurse Name: Sonya Dee NP Position: [facility] PCO Associate Professional Member Role: PCP Address: Address: [address] [place] [address], 3rd Floor [facility] [place] [address]- Name: Siddhartha Andino RN Position: [facility] RN Member Role: Primary Care Nurse Name: Pola Reid RN Position: [facility] RN Supv Member Role: Primary Care Nurse Name: Betzy Beckford RN Position: [facility] RN Member Role: Primary Care Nurse Name: Gabriella Gonsales RN Position: [facility] RN Member Role: Primary Care Nurse Name: Zully Jara Position: [facility] RN Member Role: Primary Care Nurse Name: Yunior Bui RN Position: [facility] RN Member Role: Primary Care Nurse Name: Candace Liang RN Position: [facility] RN Member Role: Primary Care Nurse Name: Marci Padilla RN Position: [facility] RN Member Role: Primary Care Nurse Name: Florecita Ring RN Position: [facility] RN Member [...] Care Nurse Name: Tammy Castillo RN Position: [facility] RN Member Role: Primary Care Nurse Name: Charito Vazquez RN Position: [facility] ED RN W/OE and Tasks [...] Care Nurse Name: Mary Wagner RN Position: [facility] RN Member Role: Primary Care Nurse Name: Chandni Gibbons RN Position: [facility] SN RN Member Role: Primary Care Nurse Name: Brayden Elizabeth RN Position: [facility] RN Member Role: Primary Care Nurse Name: Viry Zacarias RN Position: [facility] RN Member Role: Primary Care Nurse Name: Kerri Cunha RN Position: [facility] Hospital Padding Machine Operator Member Role: Primary Care Nurse Name: Atiya Mcintyre RN Position: [facility] RN Member Role: Primary Care Nurse Care Team Related Persons Name: SHAYNA IBETH Address: home [address] [place] [address] [address] [place] [address]
--- OUTSIDE RECORDS SUMMARY | 2023-04-11 15:21 | XMS_ITS | Continuity of Care Document ---
Author Name Unknown Organization [facility] Address [address] [place] [address]- Care Team Providers Care Welding Machine Operator Gas Metal Arc Name Role Phone Luiz SALAS, Sonya Primary Care Physician Encounter [facility] Date(s): 10/18/22 - 10/19/[address] [address]- Discharge Disposition: A-D/C Walkout Attending Physician: Not [...] 05/26/20 Not Given Patient Refuses 1Result Comment: [facility]: [id number] Medications Aspirin Low Dose 81 mg oral tablet, chewable 1 tablet, By Mouth, Daily, # 90 tablet, 1 Refills, Maintenance, 07/31/22 13:23:00 EDT, [facility], 178, cm, 07/23/22 11:32:00 EDT, Height, 72.5, kg, 03/08/22 4:29:00 EST, Dry Weight Start Date: 07/31/22 Status: Ordered atorvastatin 40 mg oral tablet 1 tablet, By Mouth, Daily at bedtime, # 28 tablet, 5 Refills, Maintenance, 07/31/22 13:23:00 EDT, [facility], 178, cm, 07/23/22 11:32:00 EDT, Height, 72.5, [...] 12:43:00 EDT, Route to Pharmacy Electronically, [facility], 178, cm, 07/23/22 11:32:00 EDT, Height, 72.5, kg, 03/08/22 4:29:00 EST, Dry Weight Start Date: 08/01/22 Status: Ordered depends xl depends xl, See Instructions, # 120 each, Refills 11, Tot. Refills 11, Maintenance, DX: incontinence N39.46, 09/27/22 14:39:00 EDT, Supply Start Date: 09/27/22 Status: Ordered glimepiride 4 mg oral tablet 1 tablet, By Mouth, 2 times a day, # 180 tablet, 0 Refills, Maintenance, 08/01/22 11:17:00 EDT, [facility], 178, cm, 07/23/22 11:32:00 EDT, Height, 72.5, [...] 13:25:00 EDT, Route to Pharmacy Electronically, [facility], 178, cm, 07/23/22 11:32:00 EDT, Height, [...] 1 Refills, Maintenance, 07/31/22 13:25:00 EDT, [facility], 178, cm, 07/23/22 11:32:00 EDT, Height, 72.5, kg, 03/08/22 4:29:00 EST, Dry Weight Start Date: 07/31/22 Status: Ordered pantoprazole 40 mg oral delayed [...] 0 Refills, Maintenance, 08/02/22 7:26:00 EDT, [facility], 178, cm, 07/23/22 11:32:00 EDT, Height, 72.5, kg, 03/08/22 4:29:00 EST, Dry Weight Start Date: 08/02/22 Status: Ordered Vitamin D3 50,000 intl units oral capsule 1 capsule, By Mouth, Every week, # 12 capsule, 0 Refills, Maintenance, 08/02/22 7:26:00 EDT, [facility], 178, cm, 07/23/22 11:32:00 [...] Confirmed Active 1angioplasty 2000; 3 stents at [facility] 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 S/P Elective Coiling of Unruptured Aneurysm with Subsequent Left-Sided Weakness: Acute nonhemorrhagic infarct in the RIGHT posterior frontal lobe: Results Radiology Reports * Exam Date Time Procedure Performing Provider Status 10/18/22 10:11 PM Chest 2 Views Frontal and Lat Simi Luna; Zarina (Verified) Notes: (Chest 2 Views Frontal and Lat) Reason For Exam: Chest Pain;Other: RESULT: Chest 2 Views Frontal and Lat Chest 2 Views Frontal and Lat Hx of Present Illness: Pt reporting CP started this morning midsternal across L chest and my legs are on fire , stated had fall 2 weeks ago did not see physician, R eye pain, + anti; Reason: Other:;Chest Pain; Clinical Question(s): Other: COMPARISON: 08/06/2022. FINDINGS: LINES AND TUBES: None. LUNGS AND PLEURA: Clear lungs. Normal pulmonary vascularity. No pleural effusion. No pneumothorax. HEART, MEDIASTINUM AND MAHESH: Heart is normal in size. Normal mediastinal and hilar contour. BONES AND SOFT TISSUES: No acute abnormality. IMPRESSION: No acute abnormality. WSN: [id number] Ordering Physician: Emily Cee Dictated By: Thor Hart MD Dictated Date/Time: 10/18/22 10:19 p Reviewed By: Thor Hart MD Signed By: Thor Hart MD Signed Date/Time: 10/18/22 10:19 pm Transcribed By: ANDREAS Transcribed Date/Time: 10/18/22 10:17 pm Vital Signs Most recent to oldest [Reference Range]: 1 2 3 Height 168 cm (10/18/22 8:50 PM) 168 cm (10/18/22 7:06 PM) Oxygen Saturation [94-100 %] 100 % (10/19/22 4:03 AM) 100 % (10/19/22 1:58 AM) 100 % (10/18/22 10:25 PM) Pulse Rate [55-90 bpm] 54 bpm *L* (10/19/22 4:03 AM) 62 bpm (10/19/22 1:58 AM) 70 bpm (10/18/22 10:25 PM) Blood Pressure [90-138/55-84 mm Hg] 174/88mm Hg *H* (10/19/22 4:03 AM) 129/66mm Hg (10/19/22 1:58 AM) 100/76mm Hg (10/18/22 10:25 PM) Respiratory Rate [16-30 br/min] 18 br/min (10/18/22 7:06 PM) Temperature [96.8-100.4 DegF] 98.2 DegF (10/19/22 1:58 AM) 97.6 DegF (10/18/22 10:25 PM) 97.5 DegF (10/18/22 7:06 PM) Mode of Delivery (Oxygen) Room air (10/19/22 4:03 AM) Room air (10/19/22 1:58 AM) Room air (10/18/22 10:25 PM) Blood pressure sites Arm, left (10/19/22 4:03 AM) Arm, left (10/19/22 1:58 AM) Arm, left (10/18/22 10:25 PM) Temperature Route Oral (10/19/22 1:58 AM) Oral (10/18/22 10:25 PM) Oral (10/18/22 7:06 PM) Dry Weight 79.5 kg (10/18/22 8:50 PM) 79.5 kg (10/18/22 7:06 PM) Dry Weight Obtained Via Patient/family s tated (10/18/22 7:06 PM) Social History Social History Type Response Smoking Status 10 or more cigarette s (1/2 pack or more)/day in last 30 days; Interested in cessation: No; Patient wants NRT during admission Yes; Tobacco use times per day: 1PPD; Number of years: 53; Total pack years: 53; Started at age: 13; entered on: 03/08/22 Sex EKG study * Event Display: EKG Authored Date: [id number] Patient Care team information Care Team Personnel Name: Alicia Negron Position: [facility] RN Member Role: Primary Care Nurse Name: Hanna Dailey Position: [facility] RN Member Role: Primary Care Nurse Name: Gela Orosco RN Position: [facility] RN Member Role: Primary Care Nurse Name: Jessica Castrejon RN Position: [facility] RN Member Role: Primary Care Nurse Name: Hien Hidalgo RN Position: [facility] RN Member Role: Primary Care Nurse Name: Phuong Balderas RN Position: [facility] SN RN Member Role: Primary Care Nurse Name: Evelyn Mcnulty RN Position: [facility] RN Member Role: Primary Care Nurse Name: Sonya Dee NP Position: [facility] PCO Associate Professional Member Role: PCP Address: Address: [address] [place] [address], [address]rd Floor [place], [place] [address] Name: Pola Reid RN Position: [facility] RN Supv Member Role: Primary Care Nurse Name: Betzy Beckford RN Position: [facility] RN Member Role: Primary Care Nurse Name: Zully Jara Position: [facility] RN Member Role: Primary Care Nurse Name: Yunior Bui RN Position: [facility] RN Member Role: Primary Care Nurse Name: Candace Liang RN Position: [facility] RN Member Role: Primary Care Nurse Name: Dedra Lezama Position: [facility] RN Member Role: Primary Care Nurse Name: Pat Fernando RN Position: [facility] RN Member Role: Primary Care Nurse Name: Randa Sagastume RN Position: [facility] RN Member Role: Primary Care Nurse Name: Mitra Patel Position: [facility] RN Member Role: Primary Care Nurse Name: Kacie Campbell RN Position: [facility] RN Member Role: Primary Care Nurse Name: Charito Vazquez RN Position: [facility] SUNITHA RN W/LEXX and Tasks Member Role: Primary Care Nurse Name: Dylan Bond RN Position: [facility] RN Member Role: Primary Care Nurse Name: Lydia Doherty RN Position: [facility] RN Member Role: Primary Care Nurse Name: Elie Davis RN Position: [facility] RN Member Role: Primary Care Nurse Name: Delfina Still RN Position: [facility] RN Member Role: Primary Care Nurse Name: Chandni Gibbons RN Position: [facility] RN Member Role: Primary Care Nurse Name: Viry Zacarias RN Position: [facility] RN Member Role: Primary Care Nurse Name: Kerri Cunha RN Position: [facility] Music Publisher Member Role: Primary Care Nurse Name: Atiya Mcintyre RN Position: [facility] RN Member Role: Primary Care Nurse Care Team Related Persons Name: IBETH BRUNNER Address: [address] [address] Name: IBETH CORRAL Address: [address] [address]
--- OUTSIDE RECORDS SUMMARY | 2023-04-11 15:21 | XMS_ITS | Continuity of Care Document ---
Author Name Unknown Organization [facility] Address [address] [place] [address]- Care Team Providers Care Youth Career Specialist Name Role Phone Luiz HOB MACHINE OPERATOR, Sonya Primary Care Physician [phone] [facility] Date(s): 03/19/22 - 04/18/22 [facility] [address] [place] [address]- Allergies, Adverse Reactions, Alerts Substance Reaction Severity [...] 05/26/20 Not Given Patient Refuses 1Result Comment: [facility]: [id number] Medications Aspirin Low Dose 81 mg oral [...] 0 Refills, Maintenance, 03/14/22 14:51:00 EST, Tablet, [facility], Partial fill upon patient [...] 03/14/22 14:52:00 EST, Route to Pharmacy Electronically, [facility], Partial fill upon patient [...] [facility] 178, cm, 03/14/22 15:25:00 EST, Height, 72.5, kg, 03/08/22 4:29:00 EST, Dry Weight Start Date: 04/11/22 Status: Ordered magnesium oxide 400 mg oral tablet 1 tablet, By Mouth, Daily, # 28 tablet, 5 Refills, Maintenance, 01/17/22 14:43:00 EDT, [facility] 177, cm, 01/17/22 7:37:00 EDT, Height, 75, kg, 01/11/22 12:33:00 EDT, Dry Weight Start Date: 01/17/22 Status: Ordered metFORMIN 1000 mg oral tablet 1 tablet, By Mouth, 2 times a day, # 56 tablet, 5 Refills, Maintenance, 01/17/22 14:43:00 EDT, [facility] 177, cm, 01/17/22 7:37:00 EDT, Height, 75, kg, 01/11/22 12:33:00 EDT, Dry Weight Start Date: 01/17/22 Status: Ordered nicotine 21 mg/24 hr transdermal film, extended release 1 patch, Topically, Daily, # 30 patch, 0 Refills, Maintenance, 03/14/22 14:53:00 EST, Patch, [facility], Partial fill upon patient [...] 5 Refills, Maintenance, 04/11/22 14:56:00 EST, [facility], 178, cm, 03/14/22 15:25:00 EST, Height, 72.5, [...] 5 Refills, Maintenance, 04/11/22 14:56:00 EST, [facility], 178, cm, 03/14/22 15:25:00 EST, Height, 72.5, kg, 03/08/22 4:29:00 EST, Dry Weight Start Date: 04/11/22 Status: Ordered Vitamin D3 50,000 intl units oral capsule 1 capsule = 1,250 mcg, By Mouth, Every week, # 12 capsule, 0 Refills, Maintenance, 03/08/22 2:35:00EST, Capsule, Partial fill upon patient request if the prescription is for a schedule II opioid drug. 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 [...] Primary Care Nurse Name: Hanna Dailey Position: [facility] RN Member Role: Primary Care Nurse Name: Gela Orosco RN Position: [facility] RN Member Role: Primary Care Nurse Name: Jessica Castrejon RN Position: [facility] RN Member Role: Primary Care Nurse Name: Hien Hidalgo RN Position: [facility] RN Member Role: Primary Care Nurse Name: Evelyn Mcnulty RN Position: [facility] RN Member Role: Primary Care Nurse Name: Sonya Dee NP Position: [facility] PCO Associate Professional Member Role: PCP Address: Address: [address] [place] [address], [address] [place] [address] Name: Pola Reid RN Position: [facility] RN Member Role: Primary Care Nurse Name: Betzy Beckford RN Position: [facility] RN Member Role: Primary Care Nurse Name: Karley Perry Position: S RN Member Role: Primary Care Nurse Name: Zully Jara Position: [facility] RN Member Role: Primary Care Nurse Name: Yunior Bui RN Position: [facility] RN Member Role: Primary Care Nurse Name: Candace Liang RN Position: [facility] RN Member Role: Primary Care Nurse Name: Dedar Lezama Position: [facility] RN Member Role: Primary Care Nurse Name: Pat Fernando RN Position: [facility] RN Member Role: Primary Care Nurse Name: Randa Sagastume RN Position: [facility] RN Member Role: Primary Care Nurse Name: Liborio Palomares RN Position: S RN Member Role: Primary Care Nurse Name: Yulia Veliz RN Position: S RN Member Role: Primary Care Nurse Name: Mitra Patel Position: [facility] RN Member Role: Primary Care Nurse Name: Kacie Campbell RN Position: [facility] RN Member Role: Primary Care Nurse Name: Charito Vazquez RN Position: [facility] ED RN W/OE and Tasks Member Role: Primary Care Nurse Name: Dylan Bond RN Position: [facility] RN Member Role: Primary Care Nurse Name: Phuong Delgado RN Position: [facility] RN Member Role: Primary Care Nurse Name: Lydia Doherty RN Position: [facility] RN Member Role: Primary Care Nurse Name: Elie Davis RN Position: [facility] RN Member Role: Primary Care Nurse Name: Delfina Still RN Position: [facility] RN Member Role: Primary Care Nurse Name: Suzy Mccracken RN Position: [facility] RN Member Role: Primary Care Nurse Name: Chandni Gibbons RN Position: [facility] RN Member Role: Primary Care Nurse Name: Rosio Gibbons RN Position: [facility] RN Member Role: Primary Care Nurse Name: Viry Zacarias RN Position: [facility] RN Member Role: Primary Care Nurse Name: Kerri Cunha RN Position: [facility] Hospital Mushroom Growth Media Mixer Member Role: Primary Care Nurse Name: Atiya Mcintyre RN Position: [facility] RN Member Role: Primary Care Nurse Care Team Related Persons Name: IBETH BRUNNER Address: home [address] [place], [place] Name: IBETH CORRAL Address: home [address] [place], [place]
--- OUTSIDE RECORDS SUMMARY | 2023-04-11 15:21 | XMS_ITS | Continuity of Care Document ---
Author Name Unknown Organization [facility] Adult Address [address] [place] [address]- Care Team Providers Care Braider Operator Name Role Phone Luiz SALAS, Sonya Primary Care Physician [phone] [facility] Date(s): 07/11/21 - 08/10/21 [facility] [address] [place] [id number]- Allergies, Adverse Reactions, Alerts Substance Reaction Severity [...] 11 Refills, Maintenance,05/02/21 10:36:00 EST, Capsule, [facility][id number], Partial fill upon patient request if the prescription is for a schedule II opioid drug., 178, cm, 0... Start Date: 05/02/21 Stop Date: 04/27/22 Status: Ordered clonazePAM 0.5 mg oral tablet 1 tablet = 0.5 mg, By Mouth, 3 times a day, # 90 tablet, 1 Refills, Maintenance, 07/25/21 17:16:00 EDT, Tablet, [facility]acy #[id number], Partial fill upon patient request if the prescription is for a schedule II opioid drug., 178, cm, 07/24/21 16:10:00 EDT... Start Date: 07/25/21 Stop Date: 09/23/21 Status: Ordered clopidogrel 75 mg oral tablet 1, tablet, By Mouth, Daily, # 90 tablet, Refills 1, Route to Pharmacy Electronically, [id number], 178, cm, 05/11/21 8:52:00 EST, Height, 81, kg, 05/06/21 2:22:00 EST, Dry Weight Start Date: 05/30/21 Status: Ordered glimepiride 4 mg oral tablet 1 tablet, By Mouth, 2 times a day, # 60 tablet, 5 Refills, Maintenance, 05/02/21 10:36:00 EST, [facility]/pharmacy #[id number], 178, cm, 04/27/21 4:54:00 [...] 10/29/21 10:39:00 EDT, 05/02/21 10:39:00 EST, Tablet, [facility]/pharmacy #[id number], Partial fill upon patient request if the prescription is for a schedule II opioid drug., 178, cm,... Start Date: 05/02/21 Stop Date: 10/29/21 Status: Ordered metFORMIN 1000 mg oral tablet 1 tablet = 1,000 mg, By Mouth, 2 times a day, # 60 tablet, 5 Refills, Maintenance, 05/02/21 10:36:00 EST, Tablet, [facility]/pharmacy #[id number], Partial fill upon patient request, 178, cm, 04/27/21 4:54:00 EST,Height, 84.3, kg, 04/23/21 2:54:00 EST, Dry Weight Start Date: 05/02/21 Status: Ordered oxyCODONE 5 mg oral tablet 5 mg, 1, tablet, By Mouth, 5 times a day, PRINTER ASSISTANT checked., # 140 tablet, Refills 0, Tot. Refills 0, Maintenance, 07/25/21 17:17:00 EDT, [id number] fillupon patient request if the [...] EST, Route to Pharmacy Electronically, 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
--- OUTSIDE RECORDS SUMMARY | 2023-04-11 15:21 | XMS_ITS | Continuity of Care Document ---
Author Name Unknown Organization [facility] Address [address] [place] [address]- Care Team Providers Care Concrete Block Molder Name Role Phone Luiz SALAS, Sonya Primary Care Physician En[place] [facility] Date(s): 07/25/21 - 08/24/21 [facility] [address] [place] [phone]- Allergies, Adverse Reactions, Alerts Substance Reaction Severity [...] capsule, 11 Refills, Maintenance,05/02/21 10:36:00 EST, Capsule, [facility]/pharmacy #[id number], Partial fill upon patient request if the prescription is for a schedule II opioid drug., 178, cm, 0... Start Date: 05/02/21 Stop Date: 04/27/22 Status: Ordered clonazePAM 0.5 mg oral tablet 1 tablet = 0.5 mg, By Mouth, 3 times a day, # 90 tablet, 1 Refills, Maintenance, 07/25/21 17:16:00 EDT, Tablet, [facility]/pharmacy #[id number], Partial fill upon patient request if the prescription is for a schedule II opioid drug., 178, cm, 07/24/21 16:10:00 EDT... Start Date: 07/25/21 Stop Date: 09/23/21 Status: Ordered clopidogrel 75 mg oral tablet 1, tablet, By Mouth, Daily, # 90 tablet, Refills 1, Route to Pharmacy Electronically, [id number], 178, cm, 05/11/21 8:52:00 EST, Height, 81, kg, 05/06/21 2:22:00 EST, Dry Weight Start Date: 05/30/21 Status: Ordered glimepiride 4 mg oral tablet 1 tablet, By Mouth, 2 times a day, # 60 tablet, 5 Refills, Maintenance, 05/02/21 10:36:00 EST, [facility]/pharmacy #[id number], 178, cm, 04/27/21 4:54:00 EST, Height, [...] 10/29/21 10:39:00 EDT, 05/02/21 10:39:00 EST, Tablet, [facility]/pharmacy #[id number], Partial fill upon patient request if the prescription is for a schedule II opioid drug., 178, cm,... Start Date: 05/02/21 Stop Date: 10/29/21 Status: Ordered metFORMIN 1000 mg oral tablet 1 tablet = 1,000 mg, By Mouth, 2 times a day, # 60 tablet, 5 Refills, Maintenance, 05/02/21 10:36:00 EST, Tablet, [facility]/pharmacy #[id number], Partial fill upon patient request, 178, cm, 04/27/21 4:54:00 EST,Height, 84.3, kg, 04/23/21 2:54:00 EST, Dry Weight Start Date: 05/02/21 Status: Ordered oxyCODONE 5 mg oral tablet 5 mg, 1, tablet, By Mouth, 5 times a day, PATHOLOGICAL TECHNICIAN checked., # 140 tablet, Refills 0, Tot. 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
--- OUTSIDE RECORDS SUMMARY | 2023-04-11 15:21 | XMS_ITS | Continuity of Care Document ---
Author Name Unknown Organization [facility] Adult Address [address] [place] [address]- Care Team Providers Care Resident Care Technician Name Role Phone Luiz SALAS, Sonya Primary Care Physician [phone] [facility] Date(s): 12/27/21 - 01/26/22 [facility] Adult [address] [place] [phone]- Allergies, Adverse Reactions, Alerts Substance Reaction Severity [...] 01/17/22 14:43:00 EDT, [facility], 177, cm, 01/17/22 7:37:00 EDT, Height, 75, kg, 01/11/22 12:33:00 EDT, Dry Weight Start Date: 01/17/22 Status: Ordered metFORMIN 1000 mg oral tablet 1 tablet, By Mouth, 2 times a day, # 56 tablet, 5 Refills, Maintenance, 01/17/22 14:43:00 EDT, [facility], 177, cm, 01/17/22 7:37:00 EDT, Height, [...] 14:43:00 EDT, Route to Pharmacy Electronically, [facility], 177, cm, 01/17/22 7:37:00 EDT, Height, [...] Personnel Name: Sonya Dee NP Address: Address: [address] [place] [address], [address] [place], [place] [address]
--- OUTSIDE RECORDS SUMMARY | 2023-04-11 15:21 | XMS_ITS | Continuity of Care Document ---
Author Name Unknown Organization [facility] Adult Address [address] [place] [address]- Care Team Providers Care Miller Head Assistant Wet Process Name Role Phone Luiz SALAS, Sonya Primary Care Physician [phone] [facility]counter [facility] Date(s): 01/01/22 - 01/31/22 [facility] [address] [place] [phone]- Allergies, Adverse Reactions, Alerts Substance Reaction Severity [...] Maintenance, 01/17/22 14:43:00 EDT, [facility], 177, cm, 01/17/22 7:37:00 EDT, Height, 75, kg, 01/11/22 12:33:00 EDT, Dry Weight Start Date: 01/17/22 Status: Ordered metFORMIN 1000 mg oral tablet 1 tablet, By Mouth, 2 times a day, # 56 tablet, 5 Refills, Maintenance, 01/17/22 14:43:00 EDT, [facility], 177, cm, 01/17/22 7:37:00 EDT, [...] 14:43:00 EDT, Route to Pharmacy Electronically, [facility], 177, cm, 01/17/22 7:37:00 EDT, [...] 11/07/20 Active 1angioplasty 2000; 3 stents at [facility] 2R frontal stroke secondary to [...] Personnel Name: Sonya Dee NP Address: Address: [address] [place] [address], [address] [place], [place] [address]
--- OUTSIDE RECORDS SUMMARY | 2023-04-11 15:21 | XMS_ITS | Continuity of Care Document ---
Author Name Unknown Organization [facility] Address [address] [place] [address]- Care Team Providers Care Whip Operator Name Role Phone Luiz SALAS, Sonya Primary Care Physician [phone] Encounter [facility] Date(s): 11/21/21 - 12/21/21 [facility] [address] [place] [phone]- Allergies, Adverse Reactions, Alerts Substance Reaction Severity [...] 10:38:00 EST, Route to Pharmacy Electronically, [facility]/pharmacy #[id number], Partial fill upon patient request if the [...] 11/07/20 Active 1angioplasty 2000; 3 stents at [facility] 2R frontal stroke secondary [...] Team Personnel Name: Sonya Dee NP Address: [address] [place] [address], [address] [place], [place] [address]
--- OUTSIDE RECORDS SUMMARY | 2023-04-11 15:21 | XMS_ITS | Continuity of Care Document ---
Author Name Unknown Organization [facility] ter Address [address] [place] [address]- Care Team Providers Care Track Inspecting Supervisor Name Role Phone Luiz SALAS, Sonya Primary Care Physician Encounter [facility] [place] Date(s): 03/08/22 - 03/14/[address] [address]- Encounter Diagnosis TIA (transient ischemic attack)(Final) - 03/07/22 Discharge Disposition: A-D/C Home Attending Physician: Sánchez Hoskins MD Admitting Physician: Juancho Gan MD Referring Physician: Not on Staff, [...] Not Given Patient Refuses 1Result Comment: [facility]: [id number] Medications Aspirin Low Dose 81 mg oral tablet, chewable 1 tablet, By Mouth, Daily, # 28 tablet, 12 Refills, [facility], 178, cm, 11/10/21 9:32:00 EDT, Height, 77.5, kg, 11/10/21 9:32:00 EDT, Dry Weight Start Date: 11/22/21 Status: Ordered atorvastatin 80 mg oral tablet 1 tablet = 80 mg, By Mouth, Daily at bedtime, # 30 tablet, 0 Refills, Maintenance, 03/14/22 14:51:00 EST, Tablet, [facility], Partial fill upon patient [...] 03/14/22 14:52:00 EST, Route to Pharmacy Electronically, [facility], Partial fill upon patient request if [...] 5 Refills, Maintenance, 01/17/22 14:43:00 EDT, [facility], 177, cm, 01/17/22 7:37:00 EDT, Height, 75, kg, 01/11/22 12:33:00 EDT, Dry Weight Start Date: 01/17/22 Status: Ordered nicotine 21 mg/24 hr transdermal film, extended release 1 patch, Topically, Daily, # 30 patch, 0 Refills, Maintenance, 03/14/22 14:53:00 EST, Patch, [facility], Partial fill upon patient [...] Confirmed Active 1angioplasty 2000; 3 stents at [facility] 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 S/P Elective Coiling of Unruptured Aneurysm with Subsequent Left-Sided Weakness: Acute nonhemorrhagic infarct in the RIGHT posterior frontal lobe: Results Radiology Reports * Exam Date Time Procedure Performing Provider Status 03/08/22 2:00 PM MRI Brain W/O Contrast Blayne Hernandes; Auth (Verified) Notes: (MRI Brain W/O Contrast) Reason For Exam: TIA RESULT: MRI Brain W/O Contrast MRI Brain W/O Contrast INDICATION: Reason: TIA; Clinical Question(s): Infarction; Order Comment: Please see Reference Textfor complete list of contraindications Infarction TECHNIQUE: MRI of the brain was performed without contrast utilizing sagittal T1, axial T2, axial FLAIR, axial SWAN, and axial DWI sequences. COMPARISON: Head CT 03/07/2022. Brain MRI 12/28/2020. FINDINGS: BRAIN and EXTRA-AXIAL SPACES: There is prominence of the ventricles and sulci reflecting volume loss, and there is encephalomalacia with cystic change and gliosis in the right frontal lobe, similar to the previous exam also involving the lateral basal ganglia. These areas are associated with chronic hemosiderin staining, unchanged. There is chronic encephalomalacia is also seen involving the right putamen and camargo radiata extending into the superior posterior right frontal lobe where there was previously a subacute infarct. Associated hemosiderin staining also seen in this area. There is anarea of cavitated encephalomalacia superior to the body of the left lateral ventricle compatible with a chronic lacunar infarct. Several additional chronic lacunar infarcts are demonstrated in the bilateral thalami, the left cerebellum, and in the bilateral basal ganglia. There is evidence of wallerian degeneration on the right with increased T2 signal and decreased size of the right cerebral peduncle, and T2 hyperintense signal extending into the dickson along the expected course of the corticospinal tract. However, there is no restricted diffusion to indicate acute or subacute infarction. Scattered nonspecific T2/flair hyperintensities in the supratentorial white matter most likely reflect chronic small vessel disease. There is no hemorrhage, midline shift, or mass effect. There is no extra-axial collection. There isincreased FLAIR signal in the left transverse and sigmoid sinuses as well as in the imaged upper left internal jugular vein, new from 2020 but without corresponding restricted diffusion, low signal on the susceptibility imaging, and without complete loss of the flow void on the T1 imaging. No defini te corresponding hyperdensity on the head CT. In addition, the left transverse and sigmoid sinus appear opacified on the CTA of the head. The alteration in the signal therefore probably reflects slowflow. EXTRACRANIAL SOFT TISSUES: There have been lens replacements bilaterally. There is mild scattered paranasal sinus mucosal thickening with mucous retention cysts in the maxillary sinuses, right greater than left. BONES: Marrow signal is preserved. IMPRESSION: Multiple chronic infarcts as described above, but no evidence of acute or subacute infarction. Nonspecific white matter signal changes which most likely reflect chronic small vessel disease. WSN: [id number] Ordering Physician: Pranav Craig Dictated By: Viry Finn MD Dictated Date/Time: 03/08/22 2:19 pm Reviewed By: Viry Finn MD Signed By: Viry Finn MD Signed Date/Time: 03/08/22 2:19 pm Transcribed By: ANDREAS Transcribed Date/Time: 03/08/22 2:13 pm * Exam Date Time Procedure Performing Provider Status 03/07/22 6:[address] Angio Neck Hyperacute Stroke Salma Barrera; Auth (Verified) Notes: (CT Angio Neck Hyperacute Stroke) Reason For Exam: Aneurysm, neck vessel(s);Other: RESULT: CT Angio Neck Hyperacute Stroke CT Angio Head Hyperacute Stroke, CT Angio Neck Hyperacute Stroke Reason: Other:; Neuro deficit, acute, stroke suspected; Clinical Question(s): Other:; Hematoma Aneurysm / Other: TECHNIQUE: CT angiogram of the head and neck was performed after bolus administration of intravenous contrast. 100 mL of Omnipaque 300 was administered intravenously. Coronal and sagittal MIP reformatted images were obtained. Additional 3-D images were created on a separate workstation under concurrent supervision by the attending radiologist. All stenoses are measured using NASCET criteria. Weight-based protocol using automatic tube modulation was used to optimize exposure parameters. RADIATION DOSE PARAMETERS: CTDIvol Body: 9.87 mGy, DLP Body: 518 mGy*cm. COMPARISON: Noncontrast CT head performed concurrently. CTA Head and Neck 05/05/2021. FINDINGS: CTA OF THE NECK: Arch: There is a three vessel aortic arch. The origins of the supra aortic vessels are patent. Right carotid system: The common carotid and cervical internal carotid arteries are patent. There is partially calcified atherosclerotic plaque a left common carotid artery and at the carotid bifurcation, with mild proximal ICA stenosis (30%) by NASCET criteria. There is no dissection or aneurysm. Left carotid system: The common carotid and cervical internal carotid arteries are patent. There ispredominantly noncalcified atherosclerotic plaque at the carotid bifurcation, resulting in moderateICA stenosis (60%) by NASCET criteria. There is no dissection or aneurysm. There is a right-dominant vertebral artery system. Right vertebral: There is mild narrowing of the right vertebral artery origin, as well as mild to moderate narrowing of the distal V2 segment, slightly less conspicuous than on the prior study. No occlusion. No dissection flap or aneurysm. Left vertebral: Multifocal moderate narrowing of the left vertebral artery in the distal V1 and midto distal V2 segments. No contusion. No dissection flap or aneurysm. Other: Soft tissues and bones: No evidence of lymphadenopathy or mass. The thyroid is unremarkable. Moderate aerosolized secretions are present in the trachea and right mainstem bronchus. Visualized upper lungs are clear. Multilevel degenerative changes of the spine are noted, without acute osseous abnormality. CTA OF THE HEAD: Anterior circulation: Bilateral intracranial ICAs demonstrate atherosclerotic calcification, without stenosis. Bilateral DONN and MCA branches are patent. There is no significant stenosis or proximal cutoff. There is dense coil material at the right MCA bifurcation compatible with prior aneurysm coiling. No residual aneurysm filling is identified. The adjacent right MCA branches are patent. Appearance is unchanged. No new aneurysm is seen. Posterior circulation: There is atherosclerotic calcification along the left vertebral artery V4 segment, with irregularity and moderate to severe narrowing. The dominant right vertebral artery is patent. The basilar artery, and bilateral PICA, SCA, and OPHTHALMOLOGY TECHNICIAN branches are patent, with no high-grade stenosis or proximal cutoff. There is partial supply to the right OPHTHALMOLOGY TECHNICIAN with hypoplastic right P1 segment. There is no aneurysm or vascular malformation. Veins: Major dural venous sinuses are patent. Other: Soft tissues and bones: No midline shift or effacement of the basal cisterns. No space-occupying hemorrhage. 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 No acute territorial loss of paulino-white matter differentiation. There have been lens extractions bilaterally. Mucous retention cyst is noted in the right maxillarysinus, mucosal thickening is seen in the inferior left maxillary sinus. Remaining paranasal sinusesand mastoids are clear, with no fluid levels. IMPRESSION: 1. No large vessel occlusion in the head or neck. 2. No change in bilateral cervical ICA stenosis, moderate on the left (60% by NASCET criteria) and mild on the right (30% by NASCET criteria). 3. Multifocal narrowing of the vertebral arteries again noted, greater on the left with multifocal moderate stenosis in the V1 and V2 segments and moderate to severe narrowing of the V4 segment. 4. Status post coiling of right MCA bifurcation aneurysm, with no residual aneurysm filling identified. Major findings are in agreement with the preliminary report provided by [facility] . Degree of left cervical ICA stenosis was slightly overestimated on the preliminary report, and right cervical vertebral artery stenosis was not described. On the final interpretation, degree of ICA stenosis was confirmedon 3-D software. WSN: [id number] Ordering Physician: Dolores Valiente Dictated By: Rocio Puckett MD Dictated Date/Time: 03/08/22 9:14 am Reviewed By: Rocio Puckett MD Signed By: Rocio Puckett MD Signed Date/Time: 03/08/22 9:14 am Transcribed By: ANDREAS Transcribed Date/Time: 03/08/22 8:46 am * Exam Date Time Procedure Performing Provider Status 03/07/22 6:[address] Angio Head Hyperacute Stroke Salma Barrera; Zarina (Verified) Notes: (CT Angio Head Hyperacute Stroke) Reason For Exam: Neuro deficit, acute, stroke suspected;Other: RESULT: CT Angio Head Hyperacute Stroke CT Angio Head Hyperacute Stroke, CT Angio Neck Hyperacute Stroke Reason: Other:; Neuro deficit, acute, stroke suspected; Clinical Question(s): Other:; Hematoma Aneurysm / Other: TECHNIQUE: CT angiogram of the head and neck was performed after bolus administration of intravenous contrast. 100 mL of Omnipaque 300 was administered intravenously. Coronal and sagittal MIP reformatted images were obtained. Additional 3-D images were created on a separate workstation under concurrent supervision by the attending radiologist. All stenoses are measured using NASCET criteria. Weight-based protocol using automatic tube modulation was used to optimize exposure parameters. RADIATION DOSE PARAMETERS: CTDIvol Body: 9.87 mGy, DLP Body: 518 mGy*cm. COMPARISON: Noncontrast CT head performed concurrently. CTA Head and Neck 05/05/2021. FINDINGS: CTA OF THE NECK: Arch: There is a three vessel aortic arch. The origins of the supra aortic vessels are patent. Right carotid system: The common carotid and cervical internal carotid arteries are patent. There is partially calcified atherosclerotic plaque a left common carotid artery and at the carotid bifurcation, with mild proximal ICA stenosis (30%) by NASCET criteria. There is no dissection or aneurysm. Left carotid system: The common carotid and cervical internal carotid arteries are patent. There ispredominantly noncalcified atherosclerotic plaque at the carotid bifurcation, resulting in moderateICA stenosis (60%) by NASCET criteria. There is no dissection or aneurysm. There is a right-dominant vertebral artery system. Right vertebral: There is mild narrowing of the right vertebral artery origin, as well as mild to moderate narrowing of the distal V2 segment, slightly less conspicuous than on the prior study. No occlusion. No dissection flap or aneurysm. Left vertebral: Multifocal moderate narrowing of the left vertebral artery in the distal V1 and midto distal V2 segments. No contusion. No dissection flap or aneurysm. Other: Soft tissues and bones: No evidence of lymphadenopathy or mass. The thyroid is unremarkable. Moderate aerosolized secretions are present in the trachea and right mainstem bronchus. Visualized upper lungs are clear. Multilevel degenerative changes of the spine are noted, without acute osseous abnormality. CTA OF THE HEAD: Anterior circulation: Bilateral intracranial ICAs demonstrate atherosclerotic calcification, without stenosis. Bilateral DONN and MCA branches are patent. There is no significant stenosis or proximal cutoff. There is dense coil material at the right MCA bifurcation compatible with prior aneurysm coiling. No residual aneurysm filling is identified. The adjacent right MCA branches are patent. Appearance is unchanged. No new aneurysm is seen. Posterior circulation: There is atherosclerotic calcification along the left vertebral artery V4 segment, with irregularity and moderate to severe narrowing. The dominant right vertebral artery is patent. The basilar artery, and bilateral PICA, SCA, and OPHTHALMOLOGY TECHNICIAN branches are patent, with no high-grade stenosis or proximal cutoff. There is partial supply to the right OPHTHALMOLOGY TECHNICIAN with hypoplastic right P1 segment. There is no aneurysm or vascular malformation. Veins: Major dural venous sinuses are patent. Other: Soft tissues and bones: No midline shift or effacement of the basal cisterns. No space-occupying hemorrhage. 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 No acute territorial loss of paulino-white matter differentiation. There have been lens extractions bilaterally. Mucous retention cyst is noted in the right maxillarysinus, mucosal thickening is seen in the inferior left maxillary sinus. Remaining paranasal sinusesand mastoids are clear, with no fluid levels. IMPRESSION: 1. No large vessel occlusion in the head or neck. 2. No change in bilateral cervical ICA stenosis, moderate on the left (60% by NASCET criteria) and mild on the right (30% by NASCET criteria). 3. Multifocal narrowing of the vertebral arteries again noted, greater on the left with multifocal moderate stenosis in the V1 and V2 segments and moderate to severe narrowing of the V4 segment. 4. Status post coiling of right MCA bifurcation aneurysm, with no residual aneurysm filling identified. Major findings are in agreement with the preliminary report provided by [facility] . Degree of left cervical ICA stenosis was slightly overestimated on the preliminary report, and right cervical vertebral artery stenosis was not described. On the final interpretation, degree of ICA stenosis was confirmedon 3-D software. WSN: [id number] Ordering Physician: Dolores Valiente Dictated By: Rocio Puckett MD Dictated Date/Time: 03/08/22 9:14 am Reviewed By: Rocio Puckett MD Signed By: Rocio Puckett MD Signed Date/Time: 03/08/22 9:14 am Transcribed By: ANDREAS Transcribed Date/Time: 03/08/22 8:46 am * Exam Date Time Procedure Performing Provider Status 03/07/22 7:51 PM Chest Portable Pepper Mims ; Auth (Verified) Notes: (Chest Portable) Reason For Exam: Stroke;Other: RESULT: Chest Portable Chest Portable Hx of Present Illness: pt coming from home - onset of slurred speech unilateral weakness facial droop. mechanical fall, negative headstrike. hypertensive; Reason: Other:; Stroke; Clinical Question(s): CHF; Order Comment: Patient with Doctor @ 19:28 COMPARISON: None. FINDINGS: LINES AND TUBES: None. LUNGS AND PLEURA: Clear lungs. Normal pulmonary vascularity. No pleural effusion. No pneumothorax. HEART, MEDIASTINUM AND MAHESH: Heart is normal in size. Normal mediastinal and hilar contour. BONES AND SOFT TISSUES: No acute abnormality. Mild degenerative changes of the spine. IMPRESSION: No acute abnormality. WSN: [id number] Ordering Physician: Dolores Valiente Dictated By: Dipesh Stevens MD Dictated Date/Time: 03/07/22 8:02 pm Reviewed By: Dipesh Stevens MD Signed By: Dipesh Stevens MD Signed Date/Time: 03/07/22 8:02 pm Transcribed By: ANDREAS Transcribed Date/Time: 03/07/22 8:01 pm * Exam Date Time Procedure Performing Provider Status 03/07/22 6:[address] Head-Hyper Acute Stroke Misty , N icole; Auth (Verified) Notes: (CT Head-Hyper Acute Stroke) Reason For Exam: Neuro deficit, acute, stroke suspected;Other: RESULT: CT Head-Hyper Acute Stroke CT Head-Hyper Acute Stroke INDICATION: Reason: Other:; Neuro deficit, acute, stroke suspected; Clinical Question(s): Other:; Hematoma Infarction TECHNIQUE: Noncontrast head CT using axial technique and reconstructed in axial and coronal planes.Iterative reconstruction techniques are used to optimize dose and image quality. CTDIvol Body: 9.87 mGy, DLP Body: 518 mGy*cm. CTDIvol Head: 45.70 mGy, DLP Head: 773 mGy*cm. COMPARISON: Head CT dated January 10, 2022. FINDINGS: Sterile Instrument Technician view findings, lines and tubes: None. BRAIN AND EXTRA-AXIAL SPACES: No parenchymal hemorrhage, midline shift, or mass effect. Paulino-white matter differentiation is wellpreserved. No acute infarct. Negative insular ribbon sign. Atherosclerotic vascular calcification of the carotid arteries but negative hyperdense vessel sign. Metallic density noted adjacent to the right MCA, unchanged. Surrounding streak artifact mildly limits assessment. Moderate prominence of the ventricles and sulci consistent with parenchymal volume loss. Expected dilatation of the body and frontal horn of the right lateral ventricle related to prior infarction. Moderate low-density white matter changes. Similar encephalomalacia related to prior infarction involving the right frontal lobe and right insular ribbon with associated right lateral ventricle ex vacuo dilatation of Wallerian degeneration along the external capsule. A few other scattered foci of encephalomalacia likely represent lacunar infarctions, unchanged. No subarachnoid hemorrhage. No subdural or epidural collection. CALVARIUM, SKULL BASE, AND SOFT TISSUES: No fractures or suspicious bony lesions. Aside from a moderate to large mucous retention cyst within the left maxillary sinus, the paranasalsinuses and mastoid air cells are clear. Status-post bilateral lens extraction. The extracranial soft tissues are unremarkable. IMPRESSION: No acute intracranial pathology. WSN: [id number] Ordering Physician: Dolores Valiente Dictated By: Dipesh Stevens MD Dictated Date/Time: 03/07/22 7:03 pm Reviewed By: Dipesh Stevens MD Signed By: Dipesh Stevens MD Signed Date/Time: 03/07/22 7:03 pm Transcribed By: ANDREAS Transcribed Date/Time: 03/07/22 7:00 pm Vital Signs Most recent to oldest [Reference Range]: 1 2 3 Height 178 cm (03/14/22 3:25 PM) 178 cm (03/14/22 12:05 PM) 178 cm (03/14/22 8:14 AM) Weight 72.5 kg (03/08/22 4:31 AM) 72.5 kg (03/08/22 4:06 AM) 72.5 kg (03/08/22 3:36 AM) Oxygen Saturation [94-100 %] 100 % (03/14/22 3:25 PM) 98 % (03/14/22 12:05 PM) 97 % (03/14/22 8:14 AM) Pulse Rate [55-90 bpm] 93 bpm *H* (03/14/22 3:25 PM) 91 bpm *H* (03/14/22 12:05 PM) 92 bpm *H* (03/14/22 8:14 AM) Body Mass Index [18.5-24.99 kg/m2] 22.88 kg/m2 (03/08/22 4:06 AM) 22.88 kg/m2 (03/08/22 3:36 AM) 21.6 kg/m2 (03/08/22 2:12 AM) Blood Pressure [90-138/55-84 mm Hg] 111/66mm Hg (03/14/22 3:25 PM) 147/72mm Hg *H* (03/14/22 12:05 PM) 146/76mm Hg *H* (03/14/22 8:14 AM) Respiratory Rate [16-30 br/min] 18 br/min (03/14/22 3:25 PM) 18 br/min (03/14/22 12:05 PM) 18 br/min (03/14/22 8:14 AM) Temperature [96.8-100.4 DegF] 98.3 DegF (03/14/22 3:25 PM) 98.2 DegF (03/14/22 12:05 PM) 97.8 DegF (03/14/22 8:14 AM) Liters per Minute 0 L/min (03/12/22 3:37 PM) 0 L/min (03/12/22 11:37 AM) 0 L/min (03/12/22 8:29 AM) Mode of Delivery (Oxygen) Room air (03/14/22 3:25 PM) Room air (03/14/22 12:05 PM) Room air (03/14/22 8:14 AM) Blood pressure sites Arm, left (03/14/22 3:25 PM) Arm, left (03/14/22 12:05 PM) Arm, left (03/14/22 8:14 AM) Temperature Route Oral (03/14/22 3:25 PM) Oral (03/14/22 12:05 PM) Oral (03/14/22 8:14 AM) Dry Weight 72.5 kg (03/08/22 4:06 AM) 72.5 kg (03/08/22 3:36 AM) 70 kg (03/08/22 2:12 AM) Weight Obtained Via Bed scale (03/08/22 4:06 AM) Bed scale (03/08/22 3:36 AM) Patient/family stated (03/07/22 7:00 PM) Dry Weight Obtained Via Bed scale (03/08/22 4:06 AM) Bed scale (03/08/22 3:36 AM) Social History Social History Type Response Smoking Status 10 or more cigarette s (1/2 pack or more)/day in last 30 days; Interested in cessation: No; Patient wants NRT during admission Yes; Tobacco use times per day: 1PPD; Number of years: 53; Total pack years: 53; Started at age: 13; entered on: 03/08/22 Sex Admission evaluation note * Pranav Craig DO: MODIFY, MODIFY, MODIFY, MODIFY, MODIFY, PERFORM Event Display: Admission Note Authored Date: [id number] Patient: ??JOHN SHERMAN ? Age:??66 Years?Sex:??Male?:??1955?? Chief Complaint/Reason for Consultation Stroke Alert - Sudden onset of AMS,lethargy , slurred speech, unsteady gait per family ,LWK 330 pm,Fast ED 2. EMS reports pt had a witnessed fall earlier in the day , did not strike head. 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 Around 330 pm today the patient started with weakness and slurred speech. Family reported the patient appeared to be struggling to get his words out. He also fell while he was bent over to pick something up. He denies any associated chest pain, abdominal pain, fever, chills, sweats, coughing. He reports that for the past 2 weeks he has had pain with urination. No testicular pain, hematuria, flankpain. He states that he has multiple deficits from his prior stroke, including a droop to both sides of his mouth and weakness of both legs and both arms. He ambulates with a cane at baseline.?? Has had urinary retention for a month and LBM 11/12. He has CLEOPATRA recently non compliant with CPAP, and uses a blue disc inhaler daily not in our system. ? In the ED he was vitally stable afebrile saturating 100% on room air labs showed macrocytic anemia 13.5 without leukocytosis or thrombocytopenia normal coags stable electrolytes with high bicarbonate 30 glucose 131 A1c 6.1 BUN 9 creatinine 0.6 magnesium 1.5 lipase 15 AST 13, proBNP 62 high-sensitivity troponins negative x2 and upper respiratory viral panel negative ECG showed RBBB QTC 457 sinus rhythm without acute ischemic changes CXR WNL, CT head without acute abnormality and CT angio head significant for severe left carotid bulb stenosis and short segment severe stenosis in the proximal intradural portion of left vertebral artery without aneurysm. Teleneurology consulted in ED deferred thrombolytics and recommended admission for TIA rule out metabolic encephalopathy.?? Since able to swallow per bedside evaluation he was loaded with aspirin andadmitted to observation medicine for further monitoring. Review of Systems A full review of systems was completed and is otherwise negative except as mentioned in history of present illness. Objective ?? Intake/Output? 03/07 18:37 03/08 07:00 03/07 07:00 03/06 07:00 03/05 07:00 ?? 03/08 01:45 03/08 01:45 03/08 06:59 03/07 06:59 03/06 06:59 Intake ? 50 ?0 ? 50 ?0 ?0 Output ?0 ?0 ?0 ?0 ?0 Net Total ? 50 ?0 ? 50 ?0 ?0 ? Physical Exam Vital Signs (24 hrs) Last Charted?? Minimum?? Maximum?? Temp?? I have read the above and understand it.?? 03/07/2022 23:38?? I have read the above and understand it.?? 03/07/2022 23:38 ?? I have read the above and understand it.?? 03/07/2022 23:38?? Resp Rate?? L??14?? 03/08/2022 00:34?? L??14?? 03/08/2022 00:34 ?? 27?? 03/07/2022 19:44?? SBP?? 104?? 03/08/2022 00:34?? 104?? 03/08/2022 00:34 ?? H??141?? 03/07/2022 22:45?? DBP?? 78?? 03/08/2022 00:34?? 65?? 03/07/2022 23:50 ?? 82?? 03/07/2022 19:44? General Appearance: The patient is resting comfortably in bed in NAD ?? HEENT: ??EOMI. PERRLA. No scleral icterus. MM moist. ?? Cardiovascular: RRR S1 and S2 heard with no M/R/G. No JVD. Grossly euvolemic. ?? Respiratory: ??Breath sounds clear to auscultation bilaterally. No wheezing. Good air movement throughout both lungs. ?? GI: Nondistended. Normal bowel sounds present throughout abdomen. Soft. ??Nontender.?No rebound tenderness or other findings suggestive of an acute abdomen.??No organomegaly. ?? MS: ??No edema or erythema in the lower extremities. No wounds seen on the feet. Peripheral sensation intact. No spinal or paraspinal tenderness. ??No CVA tenderness. ?? Skin:??No rashes seen on chest, abdomen, or back. ? Neuro:?awake, alert and oriented X 4, no facial droop, smile is symmetric, CN's II-XII grossly intact, no pronator drift, strength 4/5 in bilateral UE's (biceps, triceps) and strong and equal handgrips; ??strength 2/5 in bilateral LE's (flexion and extension at knees and dorsiflexion/plantarflexion) and patient can raise each leg but is unable to hold against resistance. ??Pt has 1+ bicep reflexes bilaterally and 1+ knee jerk reflexes bilaterally. ??Pt can perform [id number] b/l without difficulty, unable to perform heel to george bilaterally due to weakness in both legs (he reports this is baseline). ??Rapid alternating movements intact bilaterally. Extraocular movements intact, visual yap intact. ??Sensation grossly intact in all four extremities to light touch.?? NIHHS 5 (previously 6) ?? Lines: Peripheral IV in place.?? Assessment/Plan 66-year-old male with a PMH prior stroke with residual left-sided deficits (elective coiling of unruptured right MCA aneurysm in October 2020, complicated by right superior division and maximiliano-insular stroke), hypertension, coronary artery disease, type 2 diabetes, hyperlipidemia,??ED??Code stroke activated for new slurred speech, CTA head negative for acute stroke. CTA neck shows severe occlusion of L carotid artery. Neuro deficits improving, admitted for TIA and r/o UTI. ?? Acute metabolic Encephalopathy r/o left MCA TIA with expressive speech changes now resolved in the setting of LICA stenosis Hx elective coiling of unruptured right MCA aneurysm in October 2020, complicated by right superior division and maximiliano-insular stroke Frequent Falls, Vitamin D deficiency ?? Plan: ?? Swallow screen passerby beside continue??Aspirin and Atorvastatin: ??Daily at bedtime?? Continue ASA Clopidogrel and statin Hold metformin and DONIS-I per neuro Brain MRI no CASH??ordered Hydrate IV fluids or PO intake (*he appears dry and noted no oral intake this PM) Neurochecks??q4 and obs falls precautions?? permissive HTH ??to BP allowed to ??180/110 unless ecg or end organ changes DVT prophylaxis A1C, lipids continue B12 Check TSH Hold oxycodone and clonazepam ?? Urinary retention with dysuria ?? Plan ?? Bladder scans and straight cath UA Antibiotics if positive Blood cultures if any fevers or SIRS ?? Diabetes: Hold home meds, sliding scale while inpatient CLEOPATRA on CPAP: NIPPV at bedtime and naps Chronic macrocytic anemia: Continue B12, check iron studies ? Quality Measures Code status: [facility] Proxy: Keenan DVTppx: heparin TID Diet: cardiac diet passed RN swallow ? Discussed with attending physician Dr. Gan, ?? Pranav Craig, DO Internal Medicine PGY 2 ?? This note was prepared with the [employer] dictation device, please excuse any unintentional errors in spelling, grammar or syntax. Histories Allergies Allergies ?(Active and Proposed Allergies [...] Home with assistance. ??Lives with: Significant other, keenan ??dogs 2 ??5 cats. ??CPAP/BiPAP, Glucose monitoring, [...] Ascorbic Acid (Vitamin C 500 mg oral tablet)?1?tab(s)?500?Milligram?By Mouth?Daily Aspirin (Aspirin Low Dose 81 mg oral tablet, chewable)?1?tab(s)?By Mouth?Daily Atorvastatin (atorvastatin 40 mg oral tablet)?1?tab(s)?40?Milligram?By Mouth?Daily at bedtime Calcium Carbonate (calcium carbonate 500 mg (200 mg elemental calcium) oral tablet, chewable)?500?Milligram?1?tablet?Chew?3 times a day?as needed?as needed for dyspepsia Cholecalciferol (Vitamin D3 50,000 intl units oral capsule)?1?capsule?1,250?Microgram?By Mouth?Every week Clonazepam (clonazePAM 0.5 mg oral tablet)?1?tab(s)?0.5?Milligram?By Mouth?2 times a day?as needed?Anxiety?for 30?Days Clopidogrel (clopidogrel 75 mg oral tablet)?75?Milligram?1?tablet?By Mouth?Daily?for 30?Days Cyanocobalamin (cyanocobalamin 1000 mcg oral tablet)?1,000?Microgram?1?tablet?By Mouth?Daily Durable Medical Equipment (large pull ups)?See Instructions?DX: incontinence N39.46 Folic Acid (folic acid 1 mg oral tablet)?1?Milligram?1?tablet?By Mouth?Daily Glimepiride (glimepiride 4 mg oral tablet)?1?tab(s)?By Mouth?2 times a day Lisinopril (Zestril 5 mg oral tablet)?5?Milligram?1?tablet?By Mouth?Daily Magnesium Oxide (magnesium oxide 400 mg oral tablet)?1?tab(s)?By Mouth?Daily Metformin (metFORMIN 1000 mg oral tablet)?1?tab(s)?By Mouth?2 times a day Oxycodone (oxyCODONE 5 mg oral tablet)?TAKE 1 TABLET BY MOUTH 5 TIMES A DAY Pantoprazole (pantoprazole 40 mg oral delayed release tablet)?1?tab(s)?By Mouth?Daily Sertraline (sertraline 25 mg oral tablet)?1?tab(s)?25?Milligram?By Mouth?Daily?for 30?Days Thiamine (Vitamin B1 100 mg oral tablet)?1?tablet?By Mouth?Daily ? Results Recent Labs BLOOD BANK Blood Type A Positive ()?? 03/07/2022 18:44 Antibody Screen Negative ()?? 03/07/2022 18:44 ?? BLOOD COUNT & DIFF WBC 5.3 k/mm3 ()?? 03/07/2022 18:15 RBC 4.13 m/mm3 (Low)?? 03/07/2022 18:15 Hgb 13.5 Gm/dL (Low)?? 03/07/2022 18:15 Hct 39.3 % (Low)?? 03/07/2022 18:15 MCV 95.2 femtoliters (High)?? 03/07/2022 18:15 MCH 32.7 pg ()?? 03/07/2022 18:15 MCHC 34.4 g/dL ()?? 03/07/2022 18:15 Platelet Count 190 k/mm3 ()?? 03/07/2022 18:15 RDW-SD 39.3 femtoliters ()?? 03/07/2022 18:15 MPV 8.6 femtoliters (Low)?? 03/07/2022 18:15 Nucleated RBC (Automated) 0.0 #/100 WBC'S ()?? 03/07/2022 18:15 Abs. NRBC 0.0 k/mm3 ()?? 03/07/2022 18:15 Abs. Neut 2.9 k/mm3 ()?? 03/07/2022 18:15 Abs. Lymph 1.9 k/mm3 ()?? 03/07/2022 18:15 Abs. [place] 0.4 k/mm3 ()?? 03/07/2022 18:15 Abs. Eo 0.1 k/mm3 ()?? 03/07/2022 18:15 Abs. Baso 0.0 k/mm3 ()?? 03/07/2022 18:15 Neut % 54.7 % ()?? 03/07/2022 18:15 Lymph % 36.6 % ()?? 03/07/2022 18:15 [place] % 6.6 % ()?? 03/07/2022 18:15 Eos % 1.3 % ()?? 03/07/2022 18:15 Baso % 0.6 % ()?? 03/07/2022 18:15 Imm Gran 0.2 % ()?? 03/07/2022 18:15 Abs. Imm Gran 0.0 k/mm3 ()?? 03/07/2022 18:15 ?? CARDIAC Nt-Probnp 62 pg/mL ()?? 03/07/2022 18:15 High Sensitivity Troponin (HSTnT) 14 ng/L ()?? 03/07/2022 22:43 ?? CHEM GENERAL Sodium 137 mmol/L ()?? 03/07/2022 18:15 Potassium 4.2 mmol/L ()?? 03/07/2022 18:15 Chloride 100 mmol/L ()?? 03/07/2022 18:15 Bicarbonate Level 30 mmol/L (High)?? 03/07/2022 18:15 Anion Gap 7 ()?? 03/07/2022 18:15 Glucose Level 131 mg/dL (High)?? 03/07/2022 18:15 BUN 9 mg/dL ()?? 03/07/2022 18:15 Creatinine-Blood 0.6 mg/dL (Low)?? 03/07/2022 18:15 Estimated GFR Creatinine 106 ML/MIN/1.73 M2 ()?? 03/07/2022 18:15 Calcium 9.4 mg/dL ()?? 03/07/2022 18:15 Magnesium 1.5 mg/dL (Low)?? 03/07/2022 18:15 Lipase 15 units/L ()?? 03/07/2022 18:15 AST (SGOT) 13 units/L ()?? 03/07/2022 18:15 ?? COAG INR 1.1 ()?? 03/07/2022 18:15 Protime (PT) 11.2 seconds ()?? 03/07/2022 18:15 APTT 27.8 seconds ()?? 03/07/2022 18:15 ?? VIROLOGY Influenza A PCR NEGATIVE ()?? 03/07/2022 19:00 Influenza B PCR NEGATIVE ()?? 03/07/2022 19:00 RSV PCR NEGATIVE ()?? 03/07/2022 19:00 COVID-19 PCR Specimen Source NASAL ()?? 03/07/2022 19:00 COVID-19 PCR Result NEGATIVE ()?? 03/07/2022 19:00 ? * Juancho Gan MD: PERFORM Event Display: Admission Note Authored Date: ??Attending Attestation: I have seen and evaluated this patient.?? I have discussed the case and its management with the resident and agree with the findings and arin documented in the resident's note.?? I?? will continue to provide care to this patient till 7 AMof the admitting date. 56-year-old male with a past medical history of stroke with residual left-sided deficit, hypertension, CAD, type 2 diabetes mellitus, hyperlipidemia who did come with a complaint of slurred speech and difficulty in finding words.?? He is evaluated by neurology.?? During my examination he was back to his baseline.?? As per recommendation we will rule out any infectious etiology for his symptoms.?? We will get a MRI of the brain.?? We will continue with aspirin, Plavix, statin.?? Official report of the CT angiogram of head and neck is pending. EKG study * Event Display: EKG Authored Date: * Event Display: ECG 12-Lead Authored Date: Please click on pdf link to open report * Event Display: ECG 12-Lead Authored Date: Ventricular Rate: 80 BPM Atrial Rate: 80 BPM P-R Interval: 144 ms QRS Duration: 134 ms Q-T Interval: 412 ms QTC Calculation(Bazett): 475 ms P [place]: 89 degrees R [place]: 155 degrees T [place]: 52 degrees Sinus rhythm with Premature atrial complexes Right bundle branch block Left posterior fascicular block Bifascicular block Abnormal ECG When compared with ECG of 10-JAN-2022 02:37, Premature atrial complexes are now Present Confirmed by MYRON BARRIENTOS MD ([id number]) on 03/13/2022 6:18:08 PM [place]: MYRON BARRIENTOS MD Note * Carlota Mena: PERFORM Event Display: Discharge/Transfer Note Hospital Authored Date: Nursing Discharge Note Entered On: 03/14/2022 17:02 EST Performed On: 03/14/2022 17:01 EST by Carlota Mena Nursing Discharge Note 2 Patient Instructions Discharge Signed : Yes Discharge Comments : pt had no iv access. prescriptions sent with pt. pt left via wheelchair to home with services. belongings sent with pt Carlota Mena - 03/14/2022 17:06 EST Discharge Time : 03/14/2022 16:45 EST Discharge Level of Care at Discharge : Homehealth/VNA Discharge VNA/Hospice/Home Care(v001) : [facility] Patient Left Unit Via : Wheelchair Patient Accompanied Off Unit with : Responsible adult DC Instructions Provided & Signed by Pt : Yes Patient Understands D/C Instructions : Yes Did Pt have Specialty Bed or Wound Vac : No Carlota Mena - 03/14/2022 17:01 EST * Chidi Humphrey DO: PERFORM Sánchez Hoskins MD: MODIFY Event Display: Discharge/Transfer Note Hospital Authored Date: Patient: ??JOHN SHERMAN ? Age:??66 Years?Sex:??Male?:??1955?? Patient Information Discharge Location: A Primary Care Physician: Sonya Dee NP Admit Date/Time: 03/08/22 01:20 Discharge Date: 03/14/22 Discharge Disposition Discharge Disposition: Home with Home Health Discharge Diagnosis Diabetes (E11.9) TIA (transient ischemic attack) (G45.9) Tobacco use disorder (F17.200) Benign hypertension CAD (coronary artery disease) Chronic lower back pain ?? _ Discharge Medications Ascorbic Acid (Vitamin C 500 mg oral tablet)?1?tab(s)?500?Milligram?By Mouth?Daily Aspirin (Aspirin Low Dose 81 mg oral tablet, chewable)?1?tab(s)?By Mouth?Daily Atorvastatin (atorvastatin 80 mg oral tablet)?1?tab(s)?80?Milligram?By Mouth?Daily at bedtime Calcium Carbonate (calcium carbonate 500 mg (200 mg elemental calcium) oral tablet, chewable)?500?Milligram?1?tablet?Chew?3 times a day?as needed?as needed for dyspepsia Cholecalciferol (Vitamin D3 50,000 intl units oral capsule)?1?capsule?1,250?Microgram?By Mouth?Every week Clopidogrel (clopidogrel 75 mg oral tablet)?75?Milligram?1?tablet?By Mouth?Daily Cyanocobalamin (cyanocobalamin 1000 mcg oral tablet)?1,000?Microgram?1?tablet?By Mouth?Daily Durable Medical Equipment (large pull ups)?See Instructions?DX: incontinence N39.46 Folic Acid (folic acid 1 mg oral tablet)?1?Milligram?1?tablet?By Mouth?Daily Lisinopril (Zestril 5 mg oral tablet)?5?Milligram?1?tablet?By Mouth?Daily Magnesium Oxide (magnesium oxide 400 mg oral tablet)?1?tab(s)?By Mouth?Daily Metformin (metFORMIN 1000 mg oral tablet)?1?tab(s)?By Mouth?2 times a day Nicotine (nicotine 21 mg/24 hr transdermal film, extended release)?1?patch(es)?Topically?Daily Pantoprazole (pantoprazole 40 mg oral delayed release tablet)?1?tab(s)?By Mouth?Daily Sertraline (sertraline 25 mg oral tablet)?1?tab(s)?25?Milligram?By Mouth?Daily?for 30?Days Thiamine (Vitamin B1 100 mg oral tablet)?1?tablet?By Mouth?Daily ? Medications Started None Medications Discontinued Clonazepam Oxycodone Glimepiride Doses Changed Atorvastatin increased to 80 mg from 40 mg PCP Follow-Up/Heads-Up Please follow up on patients blood pressure. Was fairly stable in the hospital w/ holding lisinopril. If low on follow up consider discontinuing. Discontinued Glimepiride as hgbA1c was 6.1. Continue Metformin and follow up. Pt will have neuro follow up in 3 months Hospital Course 66-year-old male with a PMH prior stroke with residual left-sided deficits (elective coiling of unruptured right MCA aneurysm in October 2020, complicated by right superior division and maximiliano-insular stroke), hypertension, coronary artery disease, type 2 diabetes, hyperlipidemia, ED Code stroke activated for new slurred speech, CTA head negative for acute stroke. CTA neck shows severe occlusion of L carotid artery. Neuro deficits improving, admitted for TIA. Pt went for Left ICA procedure on 03/13/22 and no intervention was indicated as only 50% stenosis noted. Pt w/ post-op deilrium and will continue to monitor, otherwise medically cleared. ?? Pt presented on 03/08 with??weakness and slurred speech. Family reported the patient appeared to bestruggling to get his words out. He also fell while he was bent over to pick something up. In the ED, he was vitally stable afebrile saturating 100% on room air. Labs showed macrocytic anemia 13.5, stable electrolytes and renal function, A1c 6.1. High-sensitivity troponins negative x2 and ECG without acute ischemic changes. CXR WNL, CT head without acute abnormality and CT angio head significant for severe left carotid bulb stenosis and short segment severe stenosis in the proximal intradural portion of left vertebral artery without aneurysm. Tele-neurology consulted in ED deferred thrombolytics and recommended admission for TIA rule out metabolic encephalopathy. MRI done and showed??no acute abnormalities but suspicion was high for MCA TIA and patient stayed to undergo Left ICA procedureon 03/13 to evaluate for degree of stenosis. Noted to only be 50% stenosis and no intervention performed. Pt had some progressive weakness and deconditioning throughout hospitalization and PT recommended rehab but family refused and opted for home with services. ?? Acute toxic encephalopathy- resolved Left hemispheric TIA presented with expressive speech changes now resolved in the setting of LICA stenosis though now found to have only 50% stenosis on angiography and no intervention done. Hx elective coiling of unruptured right MCA aneurysm in October 2020, complicated by right superior division and maximiliano-insular stroke MRI: no acute abnormalities. Per neurology, The patient had some speech changes and generalized weakness in December 2020 with no obvious left hemisphere stroke at that time and some DWI hyperintensity around the old prior stroke. effectively there is still suspicion for underlying MCA TIA and therefore pt will stay until L ICA procedure. L ICA procedure with endovascular on 03/13 w/ Dr. James showed 50% stenosis. No intervention done. Recommend: ??- asa/plavix continue dual for 90 days ??- smoking cessation encouraged ??- atorvastatin increased to 80 mg at bedtime ??- Outpatient followup with Neurology in 3-months with repeat Lipid panel ? Diabetes:??Discontinue glimepiride. continue metformin. HgbA1c 6.1. PCP to follow up. CLEOPATRA on CPAP:??NIPPV at bedtime and naps ordered Normocytic anemia:??iron panel wnl, B12 nml, follow up with PCP Tobacco Use Disorder:??nicotine patches sent at discharge? Behaviors/Delirium: oxycodone discontinued; no signs of withdrawal; clonazepam only prn and pt not needing; d/c at discharge ?? Objective Vital Signs?? Temperature: 98.2 DegF (03/14/22 12:05:00) Temperature Route: Oral (03/14/22 12:05:00) Pulse Rate:??91 bpm??High (03/14/22 12:05:00) Respiratory Rate: 18 br/min (03/14/22 12:05:00) Systolic Blood Pressure:??147 mm Hg??High (03/14/22 12:05:00) Diastolic Blood Pressure: 72 mm Hg (03/14/22 12:05:00) Blood pressure sites: Arm, left (03/14/22 12:05:00) Mean Arterial Pressure: 97 mm Hg (03/14/22 12:05:00) Pulse Pressure: 75 mm Hg (03/14/22 12:05:00) Oxygen Saturation: 98 % (03/14/22 12:05:00) Mode of Delivery (Oxygen): Room air (03/14/22 12:05:00) Early Warning Score: 0 (03/14/22 12:06:30) . Physical Exam Constitutional: Alert, in no distress. Mental Status: Oriented to person, place and time. Eyes: Pupils are equal, round and reactive to light. Extraocular muscles intact. Respiratory: Clear to auscultation. No wheezing, rales or rhonchi. Cardiovascular: S1 S2 regular. No murmurs Gastrointestinal: Abdomen soft, non-tender, non-distended. Normal bowel sounds. Neurologic: moving all extremities, following commands, slightly unsteady on feet when walking w/ walker Skin: No rashes or lesions Psychiatric: Normal mood and affect Imaging: MRI FINDINGS:? BRAIN and EXTRA-AXIAL SPACES: There is prominence of the ventricles and sulci reflecting volume loss, and there is encephalomalacia with cystic change and gliosis in the right frontal lobe, similar to the previous exam also involving the lateral basal ganglia. These areas are associated with chronic hemosiderin staining, unchanged. There is chronic encephalomalacia is also seen involving the right putamen and camargo radiata extending into the superior posterior right frontal lobe where there was previously a subacute infarct. Associated hemosiderin staining also seen in this area. There is anarea of cavitated encephalomalacia superior to the body of the left lateral ventricle compatible with a chronic lacunar infarct. Several additional chronic lacunar infarcts are demonstrated in the bilateral thalami, the left cerebellum, and in the bilateral basal ganglia. There is evidence of wallerian degeneration on the right with increased T2 signal and decreased size of the right cerebral peduncle, and T2 hyperintense signal extending into the dickson along the expected course of the corticospinal tract. However, there is no restricted diffusion to indicate acute or subacute infarction. Scattered nonspecific T2/flair hyperintensities in the supratentorial white matter most likely reflect chronic small vessel disease. ?? There is no hemorrhage, midline shift, or mass effect. There is no extra-axial collection. There isincreased FLAIR signal in the left transverse and sigmoid sinuses as well as in the imaged upper left internal jugular vein, new from 2020 but without corresponding restricted diffusion, low signal on the susceptibility imaging, and without complete loss of the flow void on the T1 imaging. No defini te corresponding hyperdensity on the head CT. In addition, the left transverse and sigmoid sinus appear opacified on the CTA of the head. The alteration in the signal therefore probably reflects slowflow. ?? EXTRACRANIAL SOFT TISSUES: There have been lens replacements bilaterally. There is mild scattered paranasal sinus mucosal thickening with mucous retention cysts in the maxillary sinuses, right greater than left.? BONES: Marrow signal is preserved. ? IMPRESSION: ?? Multiple chronic infarcts as described above, but no evidence of acute or subacute infarction. Nonspecific white matter signal changes which most likely reflect chronic small vessel disease. ?? [facility] Neu[facility] Patient Education Titles Transient Ischemic??Attack (TIA)?? For Caregivers: Preventing Another Stroke?? Creating a Quit Tobacco Plan?? Follow-Up Appointments Added Follow Up ?Time Frame ?Comments Sonya Dee NP?1 week: call to discuss follow up visit Patient Instructions Prescription Given this visit: Prescriptions Atorvastatin (atorvastatin 80 mg oral tablet) 1 tablet = 80 mg, By Mouth, Daily at bedtime, # 30 tablet, 0 Refills, [facility] [address] [address] [id number] Next Dose:? Clopidogrel (clopidogrel 75 mg oral tablet) 1 tablet = 75 mg, By Mouth, Daily, # 90 tablet, 0 Refills, [facility], [address] [place] [phone] Next Dose:? Nicotine (nicotine 21 mg/24 hr transdermal film, extended release) 1 patch, Topically, Daily, # 30 patch, 0 Refills, [facility] [address] [address] [phone] Next Dose:? Please stop his home Glimepiride, Oxycodone, and Clonazepam. ?? Patient Instructions Given: You were seen in the hospital because of speech difficulties and weakness which was felt to be due to TIA (mini-stroke). You were seen by Neurology and continued??on Plavix and Aspirin. PT recommended Rehab due to ongoing weakness but family declined so he will have home services. You should stop smoking as this increases your risk of future strokes.? Education Given: Transient Ischemic??Attack (TIA)?? For Caregivers: Preventing Another Stroke?? Creating a Quit Tobacco Plan? Patient Follow-up: Added Follow Up ?Time Frame ?Comments Sonya Dee NP?1 week: call to discuss follow up visit Post Discharge Care Diet: Diabetic Diet Activity: ?? Elevate HOB to at least 30 degrees Code Status: ?? Full Resuscitation Prognosis: Fair Home Health Face to Face *Denotes mandatory yap ?? *I certify that this patient is under my care and that I or an allowed non- physician working with me had a face to face encounter with the patient on this date:??03/14/2022 15:09 ?? *The encounter with the patient was in whole, or in part, for the following medical condition, which is the primary diagnosis(es) for home health care:??Diabetes (E11.9) TIA (transient ischemic attack) (G45.9) Tobacco use disorder (F17.200) Benign hypertension CAD (coronary artery disease) Chronic lower back pain ? *Select the indications for the discipline/s that are being arranged for this patient. Nursing (select all that apply): [_] None [_] Medication management (reconciliation, teaching)?? [_] Chronic disease management?? [_] Wound care and treatment?? [_] Home safety evaluation [_] Administer SQ/IM/IV medications?? [_] Cath care?? [_] Drain care?? [_] Trach or GT care?? Other _ Occupation Therapy (select all that apply): [_] None [_] ADL Management [_] Fall prevention training [_] Energy conservation [_] Cognitive training Other _ Physical Therapy (select all that apply): [_] None [x_] Functional mobility training [x_] Home exercise program to strengthen [_] Increase ROM?? [x_] Falls prevention training [_] Home maintenance program for chronic disease Other _ Speech Therapy (select all that apply): [_] None [_] Swallow evaluation and training [_] Speech and language training [_] Cognitive training to process, organize, and/or recall information Other _ ? *Homebound due to (select all that apply): [x_] Inability to leave home without assistance/supervision [x_] Inability to ambulate without assistance [_] Pain [x_] Decreased strength and endurance [x_] Unsteady gait [_] Severe SOB and fatigue [_] Impaired transfers [_] Inability to negotiate stairs [_] Limited weight bearing [_] Mental status change? *Physician Signature:??Dr. Humphrey ?? *By signing this, I certify that I have personally evaluated the patient and agree with the findings and recommendations as documented above. ?? Results Discharge Labs BLOOD BANK Blood Type A Positive ()?? 03/07/2022 18:44 Antibody Screen Negative ()?? 03/07/2022 18:44 ?? BLOOD COUNT & DIFF WBC 6.5 k/mm3 ()?? 03/14/2022 01:52 RBC 4.17 m/mm3 (Low)?? 03/14/2022 01:52 Hgb 13.2 Gm/dL (Low)?? 03/14/2022 01:52 Hct 39.6 % (Low)?? 03/14/2022 01:52 MCV 95.0 femtoliters (High)?? 03/14/2022 01:52 MCH 31.7 pg ()?? 03/14/2022 01:52 MCHC 33.3 g/dL ()?? 03/14/2022 01:52 Platelet Count 197 k/mm3 ()?? 03/14/2022 01:52 RDW-SD 39.8 femtoliters ()?? 03/14/2022 01:52 MPV 8.7 femtoliters (Low)?? 03/14/2022 01:52 Nucleated RBC (Automated) 0.0 #/100 WBC'S ()?? 03/14/2022 01:52 Abs. NRBC 0.0 k/mm3 ()?? 03/14/2022 01:52 ? 45??minutes spent on discharge ?? Chidi Humphrey, DO?? PGY4 Internal Medicine/Pediatrics ?? Discussed with Attending Physician , Dr. Lucero Hoskins MD, Sánchez: PERFORM Event Display: Discharge/Transfer Note Hospital Authored Date: Attending Attestation:??I have seen and evaluated this patient. ??I have discussed the case and itsmanagement with the resident and agree with the findings and plan as documented in the resident???snote. * Carlota Mena: PERFORM Event Display: Patient Education/Instruction Authored Date: Inpatient Adult Discharge Instructions [address] [address] Name: JOHN SHERMAN : 1955 Visit: 03/08/2022 01:20:00 Current Date: 03/14/2022 16:32 Account: [id number] Inpatient Adult Discharge Instructions We would like [...] and their families. Surveys are administered by [employer]. ?? If further treatment with your primary care physician or another doctor is recommended, it is important for you to keep the appointment. Call your primary care physician or return to the Emergency Department immediately if your condition worsens, fails to improve, or new symptoms develop. If you need to find a doctor, you can call [facility] for a referral at [phone] or toll free at [phone]) or log in to [email or web address] ?? You can view and manage your care through the patient portal or by using a health care derrick of your choosing. [employer] [place] [employer] is a website that allows you to securely view your medical information including your hospital discharge summary, office visit summaries, medications and follow-up visits. You can also request appointments, renew medications, and request access to your medical information using a health care derrick of your choosing, or just ask a question. You can enroll at [email or web address] or register during your next office visit. You have been discharged from [facility], Patient Care Unit: D5A. If you have any questions regarding these instructions after you leave, please call us and we will be happy to assist you. [facility] Your Care Team Attending Physician Gato SAVAGE, Sánchez Consulting Providers Christine SAVAGE, Luis Carlos Nix MD, Addy Discharging Providers Chidi Humphrey DO Reason for Admission Stroke Alert - Sudden onset of AMS,lethargy , slurred speech, unsteady gait per family ,LWK 330 pm,Fast ED 2. EMS reports pt had a witnessed fall earlier in the day , did not strike head. Your Diagnosis TIA (transient ischemic attack) Diabetes Tobacco use disorder Tests Performed Below is a partial list of the tests performed during your hospitalization. You may have had other tests and procedures not included in this list. Please discuss all test results with your provider. Amphetamine Urine Screen AST Barbiturate Urine Screen Basic Metabolic Panel Benzodiazepine Urine Screen Cannabinoid Urine Screen CBC CBC w/ Differential Cocaine Urine Screen COVID-19 (2019 Novel Coronavirus) PCR COVID-19, RSV, and Flu A/B, Rapid PCR FERRITIN FOLIC ACID GLUCOSE POC High??Sensitivity??Troponin T Ionized Calcium IRON & TIBC Lipase Magnesium Level Opiate Screen Urine Phosphorus Level ProBNP PT (INR) PTT TRANSFERRIN TSH WITH REFLEX TO FT4 Type and Screen Urinalysis w/hold for Urine Culture VITAMIN B12 Brain MRI W/O Contrast CT Angio Head Hyperacute Stroke CT Angio Neck Hyperacute Stroke CT Head-Hyper Acute Stroke XR Chest Portable Primary Care Provider Sonya Dee NP Advance Directive Health Care Proxy on File Yes - Health Care Proxy Yes - MOLST No qualifying data available. Discharge Vitals Temperature: 98.3 DegF Height: 178 cm Pulse Rate:??93 bpm??High Weight: 72.5 kg Respiratory Rate: 18 br/min Body Mass Index: 22.88 kg/m2 Systolic Blood Pressure: 111 mm Hg Body surface area: 1.89 Diastolic Blood Pressure: 66 mm Hg ?? Oxygen Saturation: 100 % ?? Studies Pending All tests and labs ordered during this hospital stay have been completed unless listed below. Please discuss all pending results with your provider listed above in these instructions. ?? Add On Lab Order What to do next Instructions From Your Doctor Prescription Given this visit: Prescriptions Atorvastatin (atorvastatin 80 mg oral tablet) 1 tablet = 80 mg, By Mouth, Daily at bedtime, # 30 tablet, 0 Refills, [facility], [address] [place] [id number] Next Dose:? Clopidogrel (clopidogrel 75 mg oral tablet) 1 tablet = 75 mg, By Mouth, Daily, # 90 tablet, 0 Refills, [facility], [address] [place] [address] [phone] Next Dose:? Nicotine (nicotine 21 mg/24 hr transdermal film, extended release) 1 patch, Topically, Daily, # 30 patch, 0 Refills, [facility], [address] [place] [address] [phone] Next Dose:? Please stop his home Glimepiride, Oxycodone, and Clonazepam. ?? Patient Instructions Given: You were seen in the hospital because of speech difficulties and weakness which was felt to be due to TIA (mini-stroke). You were seen by Neurology and continued??on Plavix and Aspirin. PT recommended Rehab due to ongoing weakness but family declined so he will have home services. You should stop smoking as this increases your risk of future strokes.? Education Given: Transient Ischemic??Attack (TIA)?? For Caregivers: Preventing Another Stroke?? Creating a Quit Tobacco Plan? Patient Follow-up: Added Follow Up ?Time Frame ?Comments Sonya Dee NP?1 week: call to discuss follow up visit Discharge Orders Diet:??Diabetic Diet Activity:?? Elevate HOB to at least 30 degrees Code Status:?? Full Resuscitation Prognosis:??Fair You Need to Schedule the Following Appointments Follow Up with??Sonya Dee NP When??Within 1 week: call to discuss follow up visit Where: ?? Discharge Medications JOHN SHERMAN :1955 Visit Date:03/08/2022 Medications: Please continue your medications until treatment is completed or stopped by your provider. Medications not listed below should be discontinued. Discuss any questions related to medications with your provider. What How Much When Instructions Next Dose New Nicotine (nicotine 21 mg/ 24 hr transdermal film, extended release) 1 patch(es) Topically Daily Pickup at [place] [address] 03/15/22 at 9am Changed Ascorbic Acid (Vitamin C 500 mg oral tablet) 1 tab(s) Oral Daily 03/15/22 at 9am Changed Atorvastatin (atorvastatin 80 mg oral tablet) 1 tab(s) Oral Daily at Bedtime Pickup at [place] [address] 03/14/22 at 9pm Changed Clopidogrel (clopidogrel 75 mg oral tablet) 1 tab(s) Oral Daily Pickup at [facility] 03/15/22 at 9am Unchanged Aspirin (Aspirin Low Dose 81 mg oral tablet, chewable) 1 tab(s) Oral Daily 03/15/22 at 9am Unchanged Calcium Carbonate (calcium carbonate 500 mg (200 mg elemental calcium) oral tablet, chewable) 1 tab(s) Chew 3 times a day as needed for as needed for dyspepsia resume home dose Unchanged Cholecalciferol (Vitamin D3 50,000 intl units oral capsule) 1 capsule Oral Every week resume home dose Unchanged Cyanocobalamin (cyanocobalamin 1000 mcg oral tablet) 1 tab(s) Oral Daily 03/15/22 at 9am Unchanged Durable Medical Equipment (large pull ups) See instructions DX: incontinence N39.46 ?? N/A Unchanged Folic Acid (folic acid 1 mg oral tablet) 1 tab(s) Oral Daily 03/15/22 at 9am Unchanged Lisinopril (Zestril 5 mg oral tablet) 1 tab(s) Oral Daily resume home dose Unchanged Magnesium Oxide (magnesium oxide 400 mg oral tablet) 1 tab(s) Oral Daily 03/15/22 at 9am Unchanged Metformin (metFORMIN 1000 mg oral tablet) 1 tab(s) Oral Twice a day resume home dose Unchanged Pantoprazole (pantoprazole 40 mg oral delayed release tablet) 1 tab(s) Oral Daily 03/15/22 at 9am Unchanged Sertraline (sertraline 25 mg oral tablet) 1 tab(s) Oral Daily Duration: 30 Days 03/15/22 at 9am Unchanged Thiamine (Vitamin B1 100 mg oral tablet) 1 tab(s) Oral Daily 03/15/22 at 9am Pharmacy Information [facility] 3: [address], [place] [phone] ?? What How Much When Comments Stop Taking Clonazepam (clonazePAM 0.5 mg oral tablet) 1 tab(s) Oral Twice a day as needed for Anxiety Duration: 30 Days Stop Taking Glimepiride (glimepiride 4 mg oral tablet) 1 tab(s) Oral Twice a day Stop Taking Oxycodone (oxyCODONE 5 mg oral tablet) TAKE 1 TABLET BY MOUTH 5 TIMES A DAY ?? Test Results Below is a partial list of the most recent Laboratory test results done prior to this discharge. You may have had other tests and procedures not included in this list. Please discuss all test resultswith your provider. Amphetamine Urine Screen (03/08/2022) ???Amphetamine Screen, Urine - NONE DETECTED AST (03/07/2022) ???AST (SGOT) - 13 units/L Barbiturate Urine Screen (03/08/2022) ???Barbiturate Screen, Urine - NONE DETECTED Basic Metabolic Panel (03/14/2022) ???Sodium - 140 mmol/L???Potassium - 4.3 mmol/L???Chloride - 104 mmol/L???Bicarbonate Level - 27 mmol/L???Anion Gap - 9???Glucose Level - 115 mg/dL???BUN - 11 mg/dL???Creatinine-Blood - 0.5 mg/dL???Estimated GFR Creatinine - 112 ML/MIN/1.73 M2???Calcium - 9.2 mg/dL Benzodiazepine Urine Screen (03/08/2022) ???Benzodiazepine Screen, Urine - NONE DETECTED Cannabinoid Urine Screen (03/08/2022) ???Cannabinoid Screen, Urine - NONE DETECTED CBC (03/14/2022) ???WBC - 6.5 k/mm3???RBC - 4.17 m/mm3???Hgb - 13.2 Gm/dL???Hct - 39.6 %???MCV - 95.0 femtoliters???MCH - 31.7 pg???MCHC - 33.3 g/dL???Platelet Count - 197 k/mm3???RDW-SD - 39.8 femtoliters???MPV - 8.7 femtoliters???Nucleated RBC (Automated) - 0.0 #/100 WBC'S???Abs. NRBC - 0.0 k/mm3 CBC w/ Differential (03/07/2022) ???WBC - 5.3 k/mm3???RBC - 4.13 m/mm3???Hgb - 13.5 Gm/dL???Hct - 39.3 %???MCV - 95.2 femtoliters???MCH - 32.7 pg???MCHC - 34.4 g/dL???Platelet Count - 190 k/mm3???RDW-SD - 39.3 femtoliters???MPV - 8.6 femtoliters???Nucleated RBC (Automated) - 0.0 #/100 WBC'S???Abs. NRBC - 0.0 k/mm3???Abs. Neut - 2.9 k/mm3???Abs. Lymph - 1.9 k/mm3???Abs. [place] - 0.4 k/mm3???Abs. Eo - 0.1 k/mm3???Abs. Baso - 0.0 k/mm3???Neut % - 54.7 %???Lymph % - 36.6 %???[place] % - 6.6 %???Eos % - 1.3 %???Baso % - 0.6 %???Imm Gran- 0.2 %???Abs. Imm Gran - 0.0 k/mm3 Cocaine Urine Screen (03/08/2022) ???Cocaine Metabolite Screen, Urine - NONE DETECTED COVID-19 (2019 Novel Coronavirus) PCR (03/12/2022) ???COVID-19 PCR Specimen Source - NASAL???COVID-19 PCR Result - NEGATIVE COVID-19, RSV, and Flu A/B, Rapid PCR (03/07/2022) ???Influenza A PCR - NEGATIVE???Influenza B PCR - NEGATIVE???RSV PCR - NEGATIVE???COVID-19 PCR Specimen Source - NASAL???COVID-19 PCR Result - NEGATIVE FERRITIN (03/08/2022) ???Ferritin Level - 134 ng/mL FOLIC ACID (03/08/2022) ???Folic Acid Level - 9.9 ng/mL GLUCOSE POC (03/14/2022) ???Glucose, POC - 114 mg/dL High??Sensitivity??Troponin T (03/07/2022) ???High Sensitivity Troponin (HSTnT) - 14 ng/L Ionized Calcium (03/08/2022) ???Calcium, Ionized pH Corrected - 1.23 mmol/L IRON & TIBC (03/08/2022) ???Iron Level - 110 mcg/dL???Iron Binding Capacity, Unsaturated - 154 mcg/dL???Iron Binding Capacity, Estimated Total - 264 mcg/dL???% Iron Saturation - 42 % Lipase (03/07/2022) ???Lipase - 15 units/L Magnesium Level (03/08/2022) ???Magnesium - 1.7 mg/dL Opiate Screen Urine (03/08/2022) ???Opiate Screen, Urine - NONE DETECTED Phosphorus Level (03/08/2022) ???Phosphorus - 3.7 mg/dL ProBNP (03/07/2022) ???Nt-Probnp - 62 pg/mL PT (INR) (03/07/2022) ???INR - 1.1???Protime (PT) - 11.2 seconds PTT (03/07/2022) ???APTT - 27.8 seconds TRANSFERRIN (03/08/2022) ???Transferrin - 218 mg/dL TSH WITH REFLEX TO FT4 (03/08/2022) ???TSH - 1.12 uIU/mL Type and Screen (03/07/2022) ???Blood Type - A Positive???Antibody Screen - Negative Urinalysis w/hold for Urine Culture (03/08/2022) ???Appear/Color, Urine - LIGHT YELLOW???Specific [place], Urine - 1.038???pH, Urine - 6.0???Albumin, Urine - TRACE???Glucose, Urine - 1+???Ketones, Urine - NEGATIVE???Bilirubin, Urine - NEGATIVE???Hemoglobin, Urine - NEGATIVE???Nitrite, Urine - NEGATIVE???Leukocyte, Urine - NEGATIVE???Urobilinogen - NORMAL???WBC's, Urine - 1 /HPF???RBC's, Urine - 2 /HPF???Squamous Epith - 1 /HPF???Mucus - SLIGHT???Hold Urine Culture - Testing available 48 hours from time of collection. VITAMIN B12 (03/08/2022) ???Vitamin B12 Level - 449 pg/mL Allergies (NKA means No Known Allergies) gabapentin??(Swelling) [...] Educational Leaflet Providered with your Discharge Instructions. Clopidogrel Oral Tablet?? Atorvastatin Oral Tablet?? Nicotine Transdermal System?? Quit Smoking the [address]?? How to Quit Smoking?? Zones Living Smoke Free?? After a Fall?? Fall??Prevention?? Discharge Instructions for Transient Ischemic Attack (TIA)?? Transient Ischemic??Attack (TIA)?? For Caregivers: Preventing Another Stroke?? Creating a Quit Tobacco Plan?? Valuables and Belongings I fully understand and agree that [facility] accepts no responsibility for all my personal [...] to send valuables and belongings home. ?? No Valuables/Belongings: No valuables/belongings present Review of Valuable and Belonging List: With patient Date for Pt to Sign Valuables/Belongings: 03/08/22 03:37:00 ?? Other Discharge Information ? Case Management Discharge Plan?? Discharge Plan?? Discharge Agency Information?? Discharge Level of Care at Discharge: Homehealth/VNA Name of Agency #1: [facility] Discharge VNA/Hospice/Home Care: [facility] Categories #1: Physical Therapy ?? Service Comments #1: The physical therapist will call before they come to set up a time to see you.Right now they are booking pt for tuesday 03/20. If they have an opening before that they will callyou. ?? Pulmonary Rehab Status?? Pulmonary Rehab Discharge Status?? [...] are strongly encouraged to quit. Please call [facility] [employer] at [phone] or [phone] or log in to [email or web address] for referrals to smoking cessation programs. ?? The National Suicide Prevention Hotline is available 12/11 if you or someone you know needs to find a reason to keep living. By calling 9-412-355-Funding Options (9753) you'll be connected to a skilled, trained counselor at a crisis center in your area. INPATIENT DISCHARGE INSTRUCTIONS SIGNATURE PAGE JOHN SHERMAN Location:[facility] Registration Date and Time:03/08/2022 01:20 [facility] Primary Care Physician: Sonya Dee NP, I JOHN SHERMAN, have received the above patient education materials/instructions and have verbalized understanding. If ambulance or transport services are being used I further acknowledge being given a choice of service. ?? If you need to contact me, please call me at this number: . Patient/Conference Organizer Name: Patient/Conference Organizer Signature: Relationship to Patient: Witness Name/Signature: Date: * Bahman RANDOLPH, Hope: PERFORM Event Display: Patient Education/Instruction Authored Date: [id number] Inpatient Adult Discharge Instructions [address] [address] Name: JOHN SHERMAN : 1955 Visit: 03/08/2022 01:20:00 Current Date: 03/14/2022 16:30 Account: [id number] Inpatient Adult Discharge Instructions We would like [...] and their families. Surveys are administered by [employer] ?? If further treatment with your primary care physician or another doctor is recommended, it is important for you to keep the appointment. Call your primary care physician or return to the Emergency Department immediately if your condition worsens, fails to improve, or new symptoms develop. If you need to find a doctor, you can call [facility] for a referral at [phone] or toll free at [phone]) or log in to [email or web address].. ?? You can view and manage your care through the patient portal or by using a health care derrick of your choosing. [employer] is a website that allows you to securely view your medical information including your hospital discharge summary, office visit summaries, medications and follow-up visits. You can also request appointments, renew medications, and request access to your medical information using a health care derrick of your choosing, or just ask a question. You can enroll at [email or web address] or register during your next office visit. You have been discharged from [facility], Patient Care Unit: D5A. If you have any questions regarding these instructions after you leave, please call us and we will be happy to assist you. [facility] Your Care Team Attending Physician Gato SAVAGE, Sánchez Consulting Providers Christine SAVAGE, Marc; Boyd SAVAGE, Addy Discharging Providers Chidi Humphrey DO Reason for Admission Stroke Alert - Sudden onset of AMS,lethargy , slurred speech, unsteady gait per family ,LWK 330 pm,Fast ED 2. EMS reports pt had a witnessed fall earlier in the day , did not strike head. Your Diagnosis TIA (transient ischemic attack) Diabetes Tobacco use disorder Tests Performed Below is a partial list of the tests performed during your hospitalization. You may have had other tests and procedures not included in this list. Please discuss all test results with your provider. Amphetamine Urine Screen AST Barbiturate Urine Screen Basic Metabolic Panel Benzodiazepine Urine Screen Cannabinoid Urine Screen CBC CBC w/ Differential Cocaine Urine Screen COVID-19 (2019 Novel Coronavirus) PCR COVID-19, RSV, and Flu A/B, Rapid PCR FERRITIN FOLIC ACID GLUCOSE POC High??Sensitivity??Troponin T Ionized Calcium IRON & TIBC Lipase Magnesium Level Opiate Screen Urine Phosphorus Level ProBNP PT (INR) PTT TRANSFERRIN TSH WITH REFLEX TO FT4 Type and Screen Urinalysis w/hold for Urine Culture VITAMIN B12 Brain MRI W/O Contrast CT Angio Head Hyperacute Stroke CT Angio Neck Hyperacute Stroke CT Head-Hyper Acute Stroke XR Chest Portable Primary Care Provider Sonya Dee NP Advance Directive Health Care Proxy on File Yes - Health Care Proxy Yes - MOLST No qualifying data available. Discharge Vitals Temperature: 98.3 DegF Height: 178 cm Pulse Rate:??93 bpm??High Weight: 72.5 kg Respiratory Rate: 18 br/min Body Mass Index: 22.88 kg/m2 Systolic Blood Pressure: 111 mm Hg Body surface area: 1.89 Diastolic Blood Pressure: 66 mm Hg ?? Oxygen Saturation: 100 % ?? Studies Pending All tests and labs ordered during this hospital stay have been completed unless listed below. Please discuss all pending results with your provider listed above in these instructions. ?? Add On Lab Order What to do next Instructions From Your Doctor Prescription Given this visit: Prescriptions Atorvastatin (atorvastatin 80 mg oral tablet) 1 tablet = 80 mg, By Mouth, Daily at bedtime, # 30 tablet, 0 Refills, [place] [address] [phone] Next Dose:? Clopidogrel (clopidogrel 75 mg oral tablet) 1 tablet = 75 mg, By Mouth, Daily, # 90 tablet, 0 Refills, [facility] [address] [address] [phone] Next Dose:? Nicotine (nicotine 21 mg/24 hr transdermal film, extended release) 1 patch, Topically, Daily, # 30 patch, 0 Refills, [facility] [address] [address] [phone] Next Dose:? Please stop his home Glimepiride, Oxycodone, and Clonazepam. ?? Patient Instructions Given: You were seen in the hospital because of speech difficulties and weakness which was felt to be due to TIA (mini-stroke). You were seen by Neurology and continued??on Plavix and Aspirin. PT recommended Rehab due to ongoing weakness but family declined so he will have home services. You should stop smoking as this increases your risk of future strokes.? Education Given: Transient Ischemic??Attack (TIA)?? For Caregivers: Preventing Another Stroke?? Creating a Quit Tobacco Plan? Patient Follow-up: Added Follow Up ?Time Frame ?Comments Sonya Dee NP?1 week: call to discuss follow up visit Discharge Orders Diet:??Diabetic Diet Activity:?? Elevate HOB to at least 30 degrees Code Status:?? Full Resuscitation Prognosis:??Fair You Need to Schedule the Following Appointments Follow Up with??Sonya Dee NP When??Within 1 week: call to discuss follow up visit Where: ?? Discharge Medications JOHN SHERMAN :1955 Visit Date:03/08/2022 Medications: Please continue your medications until treatment is completed or stopped by your provider. Medications not listed below should be discontinued. Discuss any questions related to medications with your provider. What How Much When Instructions Next Dose New Nicotine (nicotine 21 mg/ 24 hr transdermal film, extended release) 1 patch(es) Topically Daily Pickup at [facility] 3 Changed Ascorbic Acid (Vitamin C 500 mg oral tablet) 1 tab(s) Oral Daily Changed Atorvastatin (atorvastatin 80 mg oral tablet) 1 tab(s) Oral Daily at Bedtime Pickup at [place] [address] Changed Clopidogrel (clopidogrel 75 mg oral tablet) 1 tab(s) Oral Daily Pickup at [facility] 3 Unchanged Aspirin (Aspirin Low Dose 81 mg oral tablet, chewable) 1 tab(s) Oral Daily Unchanged Calcium Carbonate (calcium carbonate 500 mg (200 mg elemental calcium) oral tablet, chewable) 1 tab(s) Chew 3 times a day as needed for as needed for dyspepsia Unchanged Cholecalciferol (Vitamin D3 50,000 intl units oral capsule) 1 capsule Oral Every week Unchanged Cyanocobalamin (cyanocobalamin 1000 mcg oral tablet) 1 tab(s) Oral Daily Unchanged Durable Medical Equipment (large pull ups) See instructions DX: incontinence N39.46 ?? Unchanged Folic Acid (folic acid 1 mg oral tablet) 1 tab(s) Oral Daily Unchanged Lisinopril (Zestril 5 mg oral tablet) 1 tab(s) Oral Daily Unchanged Magnesium Oxide (magnesium oxide 400 mg oral tablet) 1 tab(s) Oral Daily Unchanged Metformin (metFORMIN 1000 mg oral tablet) 1 tab(s) Oral Twice a day Unchanged Pantoprazole (pantoprazole 40 mg oral delayed release tablet) 1 tab(s) Oral Daily Unchanged Sertraline (sertraline 25 mg oral tablet) 1 tab(s) Oral Daily Duration: 30 Days Unchanged Thiamine (Vitamin B1 100 mg oral tablet) 1 tab(s) Oral Daily [facility]: [address], [place] [phone] ?? What How Much When Comments Stop Taking Clonazepam (clonazePAM 0.5 mg oral tablet) 1 tab(s) Oral Twice a day as needed for Anxiety Duration: 30 Days Stop Taking Glimepiride (glimepiride 4 mg oral tablet) 1 tab(s) Oral Twice a day Stop Taking Oxycodone (oxyCODONE 5 mg oral tablet) TAKE 1 TABLET BY MOUTH 5 TIMES A DAY ?? Test Results Below is a partial list of the most recent Laboratory test results done prior to this discharge. You may have had other tests and procedures not included in this list. Please discuss all test resultswith your provider. Amphetamine Urine Screen (03/08/2022) ???Amphetamine Screen, Urine - NONE DETECTED AST (03/07/2022) ???AST (SGOT) - 13 units/L Barbiturate Urine Screen (03/08/2022) ???Barbiturate Screen, Urine - NONE DETECTED Basic Metabolic Panel (03/14/2022) ???Sodium - 140 mmol/L???Potassium - 4.3 mmol/L???Chloride - 104 mmol/L???Bicarbonate Level - 27 mmol/L???Anion Gap - 9???Glucose Level - 115 mg/dL???BUN - 11 mg/dL???Creatinine-Blood - 0.5 mg/dL???Estimated GFR Creatinine - 112 ML/MIN/1.73 M2???Calcium - 9.2 mg/dL Benzodiazepine Urine Screen (03/08/2022) ???Benzodiazepine Screen, Urine - NONE DETECTED Cannabinoid Urine Screen (03/08/2022) ???Cannabinoid Screen, Urine - NONE DETECTED CBC (03/14/2022) ???WBC - 6.5 k/mm3???RBC - 4.17 m/mm3???Hgb - 13.2 Gm/dL???Hct - 39.6 %???MCV - 95.0 femtoliters???MCH - 31.7 pg???MCHC - 33.3 g/dL???Platelet Count - 197 k/mm3???RDW-SD - 39.8 femtoliters???MPV - 8.7 femtoliters???Nucleated RBC (Automated) - 0.0 #/100 WBC'S???Abs. NRBC - 0.0 k/mm3 CBC w/ Differential (03/07/2022) ???WBC - 5.3 k/mm3???RBC - 4.13 m/mm3???Hgb - 13.5 Gm/dL???Hct - 39.3 %???MCV - 95.2 femtoliters???MCH - 32.7 pg???MCHC - 34.4 g/dL???Platelet Count - 190 k/mm3???RDW-SD - 39.3 femtoliters???MPV - 8.6 femtoliters???Nucleated RBC (Automated) - 0.0 #/100 WBC'S???Abs. NRBC - 0.0 k/mm3???Abs. Neut - 2.9 k/mm3???Abs. Lymph - 1.9 k/mm3???Abs. [place] - 0.4 k/mm3???Abs. Eo - 0.1 k/mm3???Abs. Baso - 0.0 k/mm3???Neut % - 54.7 %???Lymph % - 36.6 %???[place] % - 6.6 %???Eos % - 1.3 %???Baso % - 0.6 %???Imm Gran- 0.2 %???Abs. Imm Gran - 0.0 k/mm3 Cocaine Urine Screen (03/08/2022) ???Cocaine Metabolite Screen, Urine - NONE DETECTED COVID-19 (2019 Novel Coronavirus) PCR (03/12/2022) ???COVID-19 PCR Specimen Source - NASAL???COVID-19 PCR Result - NEGATIVE COVID-19, RSV, and Flu A/B, Rapid PCR (03/07/2022) ???Influenza A PCR - NEGATIVE???Influenza B PCR - NEGATIVE???RSV PCR - NEGATIVE???COVID-19 PCR Specimen Source - NASAL???COVID-19 PCR Result - NEGATIVE FERRITIN (03/08/2022) ???Ferritin Level - 134 ng/mL FOLIC ACID (03/08/2022) ???Folic Acid Level - 9.9 ng/mL GLUCOSE POC (03/14/2022) ???Glucose, POC - 114 mg/dL High??Sensitivity??Troponin T (03/07/2022) ???High Sensitivity Troponin (HSTnT) - 14 ng/L Ionized Calcium (03/08/2022) ???Calcium, Ionized pH Corrected - 1.23 mmol/L IRON & TIBC (03/08/2022) ???Iron Level - 110 mcg/dL???Iron Binding Capacity, Unsaturated - 154 mcg/dL???Iron Binding Capacity, Estimated Total - 264 mcg/dL???% Iron Saturation - 42 % Lipase (03/07/2022) ???Lipase - 15 units/L Magnesium Level (03/08/2022) ???Magnesium - 1.7 mg/dL Opiate Screen Urine (03/08/2022) ???Opiate Screen, Urine - NONE DETECTED Phosphorus Level (03/08/2022) ???Phosphorus - 3.7 mg/dL ProBNP (03/07/2022) ???Nt-Probnp - 62 pg/mL PT (INR) (03/07/2022) ???INR - 1.1???Protime (PT) - 11.2 seconds PTT (03/07/2022) ???APTT - 27.8 seconds TRANSFERRIN (03/08/2022) ???Transferrin - 218 mg/dL TSH WITH REFLEX TO FT4 (03/08/2022) ???TSH - 1.12 uIU/mL Type and Screen (03/07/2022) ???Blood Type - A Positive???Antibody Screen - Negative Urinalysis w/hold for Urine Culture (03/08/2022) ???Appear/Color, Urine - LIGHT YELLOW???Specific [place], Urine - 1.038???pH, Urine - 6.0???Albumin, Urine - TRACE???Glucose, Urine - 1+???Ketones, Urine - NEGATIVE???Bilirubin, Urine - NEGATIVE???Hemoglobin, Urine - NEGATIVE???Nitrite, Urine - NEGATIVE???Leukocyte, Urine - NEGATIVE???Urobilinogen - NORMAL???WBC's, Urine - 1 /HPF???RBC's, Urine - 2 /HPF???Squamous Epith - 1 /HPF???Mucus - SLIGHT???Hold Urine Culture - Testing available 48 hours from time of collection. VITAMIN B12 (03/08/2022) ???Vitamin B12 Level - 449 pg/mL Allergies (NKA means No Known Allergies) gabapentin??(Swelling) [...] Educational Leaflet Providered with your Discharge Instructions. After a Fall?? Fall??Prevention?? Discharge Instructions for Transient Ischemic Attack (TIA)?? Transient Ischemic??Attack (TIA)?? For Caregivers: Preventing Another Stroke?? Creating a Quit Tobacco Plan?? Valuables and Belongings I fully understand and agree that [facility] accepts no responsibility for all my personal [...] to send valuables and belongings home. ?? No Valuables/Belongings: No valuables/belongings present Review of Valuable and Belonging List: With patient Date for Pt to Sign Valuables/Belongings: 03/08/22 03:37:00 ?? Other Discharge Information ? Case Management Discharge Plan?? Discharge Plan?? Discharge Agency Information?? Discharge Level of Care at Discharge: Homehealth/VNA Name of Agency #1: [facility] Discharge VNA/Hospice/Home Care: [facility] Categories #1: Physical Therapy ?? Service Comments #1: The physical therapist will call before they come to set up a time to see you.Right now they are booking pt for tuesday 03/20. If they have an opening before that they will callyou. ?? Pulmonary Rehab Status?? Pulmonary Rehab Discharge Status?? [...] are strongly encouraged to quit. Please call [facility] at [phone] or [phone] ([phone]) or log in to [email or web address] for referrals to smoking cessation programs. ?? The National Suicide Prevention Hotline is available 12/11 if you or someone you know needs to find a reason to keep living. By calling 1-614-246-akvc (3364) you'll be connected to a skilled, trained counselor at a crisis center in your area. INPATIENT DISCHARGE INSTRUCTIONS SIGNATURE PAGE JOHN SHERMAN Location:[facility] Registration Date and Time:03/08/2022 01:20 EST Primary Care Physician: Sonya Dee NP, I JOHN SHERMAN, have received the above patient education materials/instructions and have verbalized understanding. If ambulance or transport services are being used I further acknowledge being given a choice of service. ?? If you need to contact me, please call me at this number: . Patient/Conference Organizer Name: Patient/Conference Organizer Signature: Relationship to Patient: Witness Name/Signature: Date: * Bahman RANDOLPH, Hope: PERFORM Event Display: Patient Education Leaflets Authored Date: [id number] Clopidogrel Oral Tablet ?? [address] Clopidogrel Oral Tablet Brands: Plavix Uses This medicine is used for the following purposes: ??? prevent blood clots ??? prevent stroke ??? prevent heart attack ?? Instructions This medicine may be taken with or without food. It is very important that you take the medicine at about the same time every day. It will work bestif you do this. Keep the medicine at room temperature. Avoid heat and direct light. It is important that you keep taking each dose of this medicine on time even if you are feeling well. If you forget to take a dose on time, take it as soon as you remember. If it is almost time for thenext dose, do not take the missed dose. Return to your normal dosing schedule. Do not take 2 doses of this medicine at one time. Drug interactions can change how medicines work or increase risk for side effects. Tell your healthcare providers about all medicines taken. Include prescription and zwjf-uzz-nhavdut medicines, vitamins, and herbal medicines. Speak with your doctor or pharmacist before starting or stopping any medicine. ?? Cautions Tell your doctor and pharmacist if you ever had an allergic reaction to a medicine. Do not use the medication any more than instructed. Speak with your doctor before taking any medicine with aspirin. Contact your doctor if you notice a change in the amount or darkening of your urine. Tell the doctor or pharmacist if you are , planning to be , or . Call your doctor right away if you notice any unusual bleeding or bruising. Do not share this medicine with anyone who has not been prescribed this medicine. Some patients have serious side effects from this medicine. Ask your pharmacist to show you the information from the Food and Drug Administration (FDA) and discuss it with you. ?? Side Effects The following is a list of some common side effects from this medicine. Please speak with your doctor about what you should do if you experience these or other side effects. ??? increased risk of bleeding ??? itching Call your doctor or get medical help right away if you notice any of these more serious side effects: ??? loss of balance ??? bleeding or bruising ??? chest pain ??? coughing up blood or vomit that looks like coffee grounds ??? fever ??? swelling in the neck or throat ??? severe or persistent headache ??? fast or irregular heart beats ??? pale or blue skin, lips or fingernails ??? bloody or dark, tarry stools ??? symptoms of stroke (such as one-sided weakness, slurred speech, confusion) ??? unusual or unexplained tiredness or weakness ??? blood in urine ??? yellowing of eyes or skin A few people may have an allergic reaction to this medicine. Symptoms can include difficulty breathing, skin rash, itching, swelling, or severe dizziness. If you notice any of these symptoms, seek medical help quickly. ?? Extra Please speak with your doctor, nurse, or pharmacist if you have any questions about this medicine. ?? [email or web address] IMPORTANT NOTE: This document tells you briefly how to take your medicine, but it does not tell youall there is to know about it. Your doctor or pharmacist may give you other documents about your medicine. Please talk to them if you have any questions. Always follow their advice. There is a more complete description of this medicine available in Maur[place]. Scan this code on your smartphone or tablet or use the web address below. You can also ask your pharmacist for a printout. If you have any questions, please ask your pharmacist. The display and use of this drug information is subject to Terms of Use. Copyright(c) 2021 [facility]. ?? [employer]. All rights reserved. This information is not intended as a substitute for professional medical care. Always follow your healthcare professional's instructions. ?? * Carlota Mena: PERFORM Event Display: Patient Education Leaflets Authored Date: Atorvastatin Oral Tablet ?? [id number] Atorvastatin Oral Tablet Brands: Lipitor Uses To lower high fat levels in blood. ?? Instructions This medicine may be taken with or without food. Keep the medicine at room temperature. Avoid heat and direct light. Avoid grapefruit juice while on this medicine. It is important that you keep taking each dose of this medicine on time even if you are feeling well. If you forget to take a dose on time, take it as soon as you remember. If it is almost time for thenext dose, do not take the missed dose. Return to your normal dosing schedule. Do not take 2 doses of this medicine at one time. Tell your doctor and pharmacist about all your medicines. Include prescription and usyp-pnj-yfzbutzqrrfjhkjz, vitamins, and herbal medicines. It is very important that you follow your doctor's instructions for all blood tests. ?? Cautions Tell your doctor and pharmacist if you ever had an allergic reaction to a medicine. Do not use the medication any more than instructed. Please check with your doctor before drinking alcohol while on this medicine. Contact your doctor if you notice a change in the amount or darkening of your urine. Tell the doctor or pharmacist if you are , planning to be , or . Do not breastfeed while on this medicine. During , this medicine should be used only when clearly needed. Talk to your doctor about the risks and benefits. Do not start or stop any other medicines without first speaking to your doctor or pharmacist. Do not share this medicine with anyone who has not been prescribed this medicine. ?? Side Effects Call your doctor or get medical help right away if you notice any of these more serious side effects: ??? signs of liver damage (such as yellowing of eye or skin, dark urine, or unusual tiredness) ??? muscle pain ??? nausea ??? stomach upset or abdominal pain A few people may have an allergic reaction to this medicine. Symptoms can include difficulty breathing, skin rash, itching, swelling, or severe dizziness. If you notice any of these symptoms, seek medical help quickly. ?? Extra Please speak with your doctor, nurse, or pharmacist if you have any questions about this medicine. ?? [email or web address] IMPORTANT NOTE: This document tells you briefly how to take your medicine, but it does not tell youall there is to know about it. Your doctor or pharmacist may give you other documents about your medicine. Please talk to them if you have any questions. Always follow their advice. There is a more complete description of this medicine available in [place]. Scan this code on your smartphone or tablet or use the web address below. You can also ask your pharmacist for a printout. If you have any questions, please ask your pharmacist. The display and use of this drug information is subject to Terms of Use. Copyright(c) 2021 [facility]. ?? [employer]. All rights reserved. This information is not intended as a substitute for professional medical care. Always follow your healthcare professional's instructions. ?? * Carlota Mena: PERFORM Event Display: Patient Education Leaflets Authored Date: [id number] Nicotine Transdermal System ?? [address] Nicotine Transdermal System Brands: Habitrol, Nicoderm C-Q Uses For quitting smoking. ?? Instructions DO NOT take this medicine by mouth. Avoid placing the patch near the breast. Remove the patch after 24 hours. Keep the medicine at room temperature. Avoid heat and direct light. This patch should not be cut. Wash your hands before and after handling this medicine. Remove old patch before applying new one. Change the location of the new patch. If you have vivid dreams or trouble sleeping, you may remove the patch before going to sleep. Ask your doctor or pharmacist about locations on your body where this patch can be used. Remove the plastic liner that protects the sticky side of the patch before applying to the skin. Be sure the area of skin is clean and dry before putting on a new patch. Apply the patch to a clean, dry, hairless area. Press the patch firmly for a few seconds to make sure it stays in place. After removing the patch, fold it together and discard it out of reach of children and pets. Please ask your doctor or pharmacist how you can safely dispose of used patches. If the skin under the patch becomes irritated, remove the patch. Do not apply a new patch to the area until the skin feels better. To avoid irritating your skin, use a different location for a new patch. Apply the patch only to normal looking skin. Avoid areas of the skin that are red, have scrapes, ordamaged. If the patch falls off, apply a new a patch on a different location of the body. Tell your doctor and pharmacist about all your medicines. Include prescription and dlit-ftx-vhwxczydarichlem, vitamins, and herbal medicines. If you need to stop this medicine, your doctor may wish to gradually reduce the dosage before stopping. Do not use more than 1 patch at any one time. ?? Cautions Tell your doctor and pharmacist if you ever had an allergic reaction to a medicine. Do not use the medication any more than instructed. Avoid smoking while on this medicine. Smoking may increase your risk for stroke, heart attack, blood clots, high blood pressure, and other diseases of the heart and blood vessels. Tell the doctor or pharmacist if you are , planning to be , or . Please tell all your doctors and dentists that you are on this medicine before they provide care. ?? Side Effects The following is a list of some common side effects from this medicine. Please speak with your doctor about what you should do if you experience these or other side effects. ??? skin irritation where medicine is applied If you have any of the following side effects, you may be getting too much medicine. Please contactyour doctor to let them know about these side effects. ??? diarrhea ??? dizziness ??? nausea and vomiting ??? rapid heartbeat A few people may have an allergic reaction to this medicine. Symptoms can include difficulty breathing, skin rash, itching, swelling, or severe dizziness. If you notice any of these symptoms, seek medical help quickly. ?? Extra Please speak with your doctor, nurse, or pharmacist if you have any questions about this medicine. ?? [email or web address] IMPORTANT NOTE: This document tells you briefly how to take your medicine, but it does not tell youall there is to know about it. Your doctor or pharmacist may give you other documents about your medicine. Please talk to them if you have any questions. Always follow their advice. There is a more complete description of this medicine available in [place]. Scan this code on your smartphone or tablet or use the web address below. You can also ask your pharmacist for a printout. If you have any questions, please ask your pharmacist. The display and use of this drug information is subject to Terms of Use. Copyright(c) 2021 [facility]. ?? [employer]. All rights reserved. This information is not intended as a substitute for professional medical care. Always follow your healthcare professional's instructions. ?? * Event Display: Cardiac Rhythm Strips Authored Date: * EDUAR Woodard S: JC Puckett MD, Rocio Warren: VERIFY Event Display: Result: Authored Date: CT Angio Head Hyperacute Stroke, CT Angio Neck Hyperacute Stroke Reason: Other:; Neuro deficit, acute, stroke suspected; Clinical Question(s): Other:; Hematoma Aneurysm / Other: TECHNIQUE: CT angiogram of the head and neck was performed after bolus administration of intravenous contrast. 100 mL of Omnipaque 300 was administered intravenously. Coronal and sagittal MIP reformatted images were obtained. Additional 3-D images were created on a separate workstation under concurrent supervision by the attending radiologist. All stenoses are measured using NASCET criteria. Weight-based protocol using automatic tube modulation was used to optimize exposure parameters. RADIATION DOSE PARAMETERS: CTDIvol Body: 9.87 mGy, DLP Body: 518 mGy*cm. COMPARISON: Noncontrast CT head performed concurrently. CTA Head and Neck 05/05/2021. FINDINGS: CTA OF THE NECK: Arch: There is a three vessel aortic arch. The origins of the supra aortic vessels are patent. Right carotid system: The common carotid and cervical internal carotid arteries are patent. There is partially calcified atherosclerotic plaque a left common carotid artery and at the carotid bifurcation, with mild proximal ICA stenosis (30%) by NASCET criteria. There is no dissection or aneurysm. Left carotid system: The common carotid and cervical internal carotid arteries are patent. There ispredominantly noncalcified atherosclerotic plaque at the carotid bifurcation, resulting in moderateICA stenosis (60%) by NASCET criteria. There is no dissection or aneurysm. There is a right-dominant vertebral artery system. Right vertebral: There is mild narrowing of the right vertebral artery origin, as well as mild to moderate narrowing of the distal V2 segment, slightly less conspicuous than on the prior study. No occlusion. No dissection flap or aneurysm. Left vertebral: Multifocal moderate narrowing of the left vertebral artery in the distal V1 and midto distal V2 segments. No contusion. No dissection flap or aneurysm. Other: Soft tissues and bones: No evidence of lymphadenopathy or mass. The thyroid is unremarkable. Moderate aerosolized secretions are present in the trachea and right mainstem bronchus. Visualized upper lungs are clear. Multilevel degenerative changes of the spine are noted, without acute osseous abnormality. CTA OF THE HEAD: Anterior circulation: Bilateral intracranial ICAs demonstrate atherosclerotic calcification, without stenosis. Bilateral DONN and MCA branches are patent. There is no significant stenosis or proximal cutoff. There is dense coil material at the right MCA bifurcation compatible with prior aneurysm coiling. No residual aneurysm filling is identified. The adjacent right MCA branches are patent. Appearance is unchanged. No new aneurysm is seen. Posterior circulation: There is atherosclerotic calcification along the left vertebral artery V4 segment, with irregularity and moderate to severe narrowing. The dominant right vertebral artery is patent. The basilar artery, and bilateral PICA, SCA, and OPHTHALMOLOGY TECHNICIAN branches are patent, with no high-grade stenosis or proximal cutoff. There is partial supply to the right OPHTHALMOLOGY TECHNICIAN with hypoplastic right [id number]. There is no aneurysm or vascular malformation. Veins: Major dural venous sinuses are patent. Other: Soft tissues and bones: No midline shift or effacement of the basal cisterns. No space-occupying hemorrhage. 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 No acute territorial loss of paulino-white matter differentiation. There have been lens extractions bilaterally. Mucous retention cyst is noted in the right maxillarysinus, mucosal thickening is seen in the inferior left maxillary sinus. Remaining paranasal sinusesand mastoids are clear, with no fluid levels. IMPRESSION: 1. No large vessel occlusion in the head or neck. 2. No change in bilateral cervical ICA stenosis, moderate on the left (60% by NASCET criteria) and mild on the right (30% by NASCET criteria). 3. Multifocal narrowing of the vertebral arteries again noted, greater on the left with multifocal moderate stenosis in the V1 and V2 segments and moderate to severe narrowing of the V4 segment. 4. Status post coiling of right MCA bifurcation aneurysm, with no residual aneurysm filling identified. Major findings are in agreement with the preliminary report provided by [facility] . Degree of left cervical ICA stenosis was slightly overestimated on the preliminary report, and right cervical vertebral artery stenosis was not described. On the final interpretation, degree of ICA stenosis was confirmedon 3-D software. WSN: [id number] Ordering Physician: Dolores Valiente Dictated By: Rocio Puckett MD Dictated Date/Time: 03/08/22 9:14 am Reviewed By: Rocio Puckett MD Signed By: Rocio Puckett MD Signed Date/Time: 03/08/22 9:14 am Transcribed By: ANDREAS Transcribed Date/Time: 03/08/22 8:46 am * Yamilet , EDUAR S: TRANSCRIBE Rocio Puckett MD: VERIFY Event Display: Result: Authored Date: [id number] CT Angio Head Hyperacute Stroke, CT Angio Neck Hyperacute Stroke Reason: Other:; Neuro deficit, acute, stroke suspected; Clinical Question(s): Other:; Hematoma Aneurysm / Other: TECHNIQUE: CT angiogram of the head and neck was performed after bolus administration of intravenous contrast. 100 mL of Omnipaque 300 was administered intravenously. Coronal and sagittal MIP reformatted images were obtained. Additional 3-D images were created on a separate workstation under concurrent supervision by the attending radiologist. All stenoses are measured using NASCET criteria. Weight-based protocol using automatic tube modulation was used to optimize exposure parameters. RADIATION DOSE PARAMETERS: CTDIvol Body: 9.87 mGy, DLP Body: 518 mGy*cm. COMPARISON: Noncontrast CT head performed concurrently. CTA Head and Neck 05/05/2021. FINDINGS: CTA OF THE NECK: Arch: There is a three vessel aortic arch. The origins of the supra aortic vessels are patent. Right carotid system: The common carotid and cervical internal carotid arteries are patent. There is partially calcified atherosclerotic plaque a left common carotid artery and at the carotid bifurcation, with mild proximal ICA stenosis (30%) by NASCET criteria. There is no dissection or aneurysm. Left carotid system: The common carotid and cervical internal carotid arteries are patent. There ispredominantly noncalcified atherosclerotic plaque at the carotid bifurcation, resulting in moderateICA stenosis (60%) by NASCET criteria. There is no dissection or aneurysm. There is a right-dominant vertebral artery system. Right vertebral: There is mild narrowing of the right vertebral artery origin, as well as mild to moderate narrowing of the distal V2 segment, slightly less conspicuous than on the prior study. No occlusion. No dissection flap or aneurysm. Left vertebral: Multifocal moderate narrowing of the left vertebral artery in the distal V1 and midto distal V2 segments. No contusion. No dissection flap or aneurysm. Other: Soft tissues and bones: No evidence of lymphadenopathy or mass. The thyroid is unremarkable. Moderate aerosolized secretions are present in the trachea and right mainstem bronchus. Visualized upper lungs are clear. Multilevel degenerative changes of the spine are noted, without acute osseous abnormality. CTA OF THE HEAD: Anterior circulation: Bilateral intracranial ICAs demonstrate atherosclerotic calcification, without stenosis. Bilateral DONN and MCA branches are patent. There is no significant stenosis or proximal cutoff. There is dense coil material at the right MCA bifurcation compatible with prior aneurysm coiling. No residual aneurysm filling is identified. The adjacent right MCA branches are patent. Appearance is unchanged. No new aneurysm is seen. Posterior circulation: There is atherosclerotic calcification along the left vertebral artery V4 segment, with irregularity and moderate to severe narrowing. The dominant right vertebral artery is patent. The basilar artery, and bilateral PICA, SCA, and OPHTHALMOLOGY TECHNICIAN branches are patent, with no high-grade stenosis or proximal cutoff. There is partial supply to the right OPHTHALMOLOGY TECHNICIAN with hypoplastic right [id number]. There is no aneurysm or vascular malformation. Veins: Major dural venous sinuses are patent. Other: Soft tissues and bones: No midline shift or effacement of the basal cisterns. No space-occupying hemorrhage. 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 No acute territorial loss of paulino-white matter differentiation. There have been lens extractions bilaterally. Mucous retention cyst is noted in the right maxillarysinus, mucosal thickening is seen in the inferior left maxillary sinus. Remaining paranasal sinusesand mastoids are clear, with no fluid levels. IMPRESSION: 1. No large vessel occlusion in the head or neck. 2. No change in bilateral cervical ICA stenosis, moderate on the left (60% by NASCET criteria) and mild on the right (30% by NASCET criteria). 3. Multifocal narrowing of the vertebral arteries again noted, greater on the left with multifocal moderate stenosis in the V1 and V2 segments and moderate to severe narrowing of the V4 segment. 4. Status post coiling of right MCA bifurcation aneurysm, with no residual aneurysm filling identified. Major findings are in agreement with the preliminary report provided by [facility] . Degree of left cervical ICA stenosis was slightly overestimated on the preliminary report, and right cervical vertebral artery stenosis was not described. On the final interpretation, degree of ICA stenosis was confirmedon 3-D software. WSN: [id number] Ordering Physician: Dolores Valiente Dictated By: Rocio Puckett MD Dictated Date/Time: 03/08/22 9:14 am Reviewed By: Rocio Puckett MD Signed By: Rocio Puckett MD Signed Date/Time: 03/08/22 9:14 am Transcribed By: ANDREAS Transcribed Date/Time: 03/08/22 8:46 am * EDUAR Woodard S: Dipesh Schneider MD: VERIFY Event Display: Result: Authored Date: CT Head-Hyper Acute Stroke INDICATION: Reason: Other:; Neuro deficit, acute, stroke suspected; Clinical Question(s): Other:; Hematoma Infarction TECHNIQUE: Noncontrast head CT using axial technique and reconstructed in axial and coronal planes.Iterative reconstruction techniques are used to optimize dose and image quality. CTDIvol Body: 9.87 mGy, DLP Body: 518 mGy*cm. CTDIvol Head: 45.70 mGy, DLP Head: 773 mGy*cm. COMPARISON: Head CT dated January 10, 2022. FINDINGS: Sterile Instrument Technician view findings, lines and tubes: None. BRAIN AND EXTRA-AXIAL SPACES: No parenchymal hemorrhage, midline shift, or mass effect. Paulino-white matter differentiation is wellpreserved. No acute infarct. Negative insular ribbon sign. Atherosclerotic vascular calcification of the carotid arteries but negative hyperdense vessel sign. Metallic density noted adjacent to the right MCA, unchanged. Surrounding streak artifact mildly limits assessment. Moderate prominence of the ventricles and sulci consistent with parenchymal volume loss. Expected dilatation of the body and frontal horn of the right lateral ventricle related to prior infarction. Moderate low-density white matter changes. Similar encephalomalacia related to prior infarction involving the right frontal lobe and right insular ribbon with associated right lateral ventricle ex vacuo dilatation of Wallerian degeneration along the external capsule. A few other scattered foci of encephalomalacia likely represent lacunar infarctions, unchanged. No subarachnoid hemorrhage. No subdural or epidural collection. CALVARIUM, SKULL BASE, AND SOFT TISSUES: No fractures or suspicious bony lesions. Aside from a moderate to large mucous retention cyst within the left maxillary sinus, the paranasalsinuses and mastoid air cells are clear. Status-post bilateral lens extraction. The extracranial soft tissues are unremarkable. IMPRESSION: No acute intracranial pathology. WSN: [id number] Ordering Physician: Dolores Valiente Dictated By: Dipesh Stevens MD Dictated Date/Time: 03/07/22 7:03 pm Reviewed By: Dipesh Stevens MD Signed By: Dipesh Stevens MD Signed Date/Time: 03/07/22 7:03 pm Transcribed By: ANDREAS Transcribed Date/Time: 03/07/22 7:00 pm Hospital Progress note * Carlota Mena: MODIFY, SIGN, VERIFY, PERFORM, SIGN Event Display: Progress Note Hospital Authored Date: [id number] Patient: JOHN SHERMAN Age: 66 years Sex: Male : 1955 Associated Diagnoses: None Author: Carlota Mena Findings Problem Related to Alteration in Neurological : Alteration in Neurological Function/new 03/14/2022 12:00 EST Alteration in Neuro status Related to Trans Ischemic Attack (TIA) Goals & Outcomes, Neurological Lab studies/diagnostic tests within pt specific limits, Pt is safe with transfers & activities, Pt will be discharged without infection, Pt will be hemodynamically stable, Pt will be Neurologically stable, Pt will maintain intact skin integrity, Pt will remainfree from injury, Pt will resume/maintain adequate cardiac output, Pt will state importance of adhering to medication regime, Pt/caregiver will receive psychosocial support as needed, Pt/caregiver will state understanding of rehab plan, Pt/caregiver will state strategies to reduce risk factors, Pt/caregiver will state understanding of disease process, Pt/caregiver will state understanding of plan/goals of care, Pt/caregiver will state understanding of the D/C plan Interventions, Neurological Assess/monitor for gaze pattern/extraocular movements, Assess/monitor for increased Intracranial Pressure, Assess/monitor neurologic status, Assess/monitor VS per unit standards & prn, Assess/monitor facial symmetry and tongue deviation BH Goals/Interventions, Neurological Yes Neurological, Problem Start 03/08/2022 3:30 Reviewed plan with, Neurological Patient Patient Progression, Neurological Pt progressing according to plan 03/13/2022 22:00 EST Alteration in Neuro status Related to Trans Ischemic Attack (TIA) Goals & Outcomes, Neurological Lab studies/diagnostic tests within pt specific limits, Pt is safe with transfers & activities, Pt will be discharged without infection, Pt will be hemodynamically stable, Pt will be Neurologically stable, Pt will maintain intact skin integrity, Pt will remainfree from injury, Pt will resume/maintain adequate cardiac output, Pt will state importance of adhering to medication regime, Pt/caregiver will receive psychosocial support as needed, Pt/caregiver will state understanding of rehab plan, Pt/caregiver will state strategies to reduce risk factors, Pt/caregiver will state understanding of disease process, Pt/caregiver will state understanding of plan/goals of care, Pt/caregiver will state understanding of the D/C plan Interventions, Neurological Assess/monitor neurologic status, Assess/monitor VS per unit standards & prn, Call/Report variances in assessments to provider, Keep patient's head & body in good alignment, Maintain patient safety if unsteady gait, Monitor for headaches, nausea, vomiting, Monitor speech fluency, aphasia, word finding difficulty, Physical assessment per unit standards, Provide emotional support to Pt/caregiver, Teach & encourage deep breath & cough exercises, Teach pt/caregiver discharge plan & follow up care, Teach pt/caregiver on plan of care, treatment, s/s & meds, Teach pt/caregiver on use of pain scale Goals/Interventions, Neurological Yes Neurological, Problem Start 03/08/2022 3:30 Reviewed plan with, Neurological Patient Patient Progression, Neurological Pt progressing according to plan 03/12/2022 21:00 EST Alteration in Neuro status Related to Trans Ischemic Attack (TIA) Goals & Outcomes, Neurological Lab studies/diagnostic tests within pt specific limits, Pt is safe with transfers & activities, Pt will be discharged without infection, Pt will be hemodynamically stable, Pt will be Neurologically stable, Pt will maintain intact skin integrity, Pt will remainfree from injury, Pt will resume/maintain adequate cardiac output, Pt will state importance of adhering to medication regime, Pt/caregiver will receive psychosocial support as needed, Pt/caregiver will state understanding of rehab plan, Pt/caregiver will state strategies to reduce risk factors, Pt/caregiver will state understanding of disease process, Pt/caregiver will state understanding of plan/goals of care, Pt/caregiver will state understanding of the D/C plan Interventions, Neurological Assess/monitor neurologic status, Assess/monitor VS per unit standards & prn, Call/Report variances in assessments to provider, Keep patient's head & body in good alignment, Maintain HOB at least 30 deg, Monitor for headaches, nausea, vomiting, Monitor speech fluency, aphasia, word finding difficulty, Physical assessment per unit standards, Provide emotional support to Pt/caregiver Goals/Interventions, Neurological Yes Neurological, Problem Start 03/08/2022 3:30 Reviewed plan with, Neurological Patient Patient Progression, Neurological Pt progressing according to plan 03/12/2022 18:52 EST Alteration in Neuro status Related to Trans Ischemic Attack (TIA) Goals & Outcomes, Neurological Lab studies/diagnostic tests within pt specific limits, Pt is safe with transfers & activities, Pt will be discharged without infection, Pt will be hemodynamically stable, Pt will be Neurologically stable, Pt will maintain intact skin integrity, Pt will remainfree from injury, Pt will resume/maintain adequate cardiac output, Pt will state importance of adhering to medication regime, Pt/caregiver will receive psychosocial support as needed, Pt/caregiver will state understanding of rehab plan, Pt/caregiver will state strategies to reduce risk factors, Pt/caregiver will state understanding of disease process, Pt/caregiver will state understanding of plan/goals of care, Pt/caregiver will state understanding of the D/C plan Interventions, Neurological Assess/monitor neurologic status, Assess/monitor VS per unit standards & prn, Call/Report variances in assessments to provider, Collaborate w/ provider to implement appropriate guidelines, Collaborate with provider re: medication regime, Monitor for headaches, nausea, vomiting, Monitor speech fluency, aphasia, word finding difficulty, Physical assessment per unit standards, Provide emotional support to Pt/caregiver, Assess/monitor facial symmetry and tongue deviation, DVT prophylaxis as ordered, Maintain oral suction at bedside, Review Speech Therapy recommendations for care BH Goals/Interventions, Neurological Yes Neurological, Problem Start 03/08/2022 3:30 Reviewed plan with, Neurological Patient Patient Progression, Neurological Pt progressing according to plan . Nursing Data Neurological Data. : Neurological Data. 03/14/2022 12:16 EST Tongue Disposition Midline Neurological Symptoms Unsteady gait/Ataxia Orientated to person, place, time Person, Place, Time, Event Facial Symmetry Intact Pupil description, left Regular Pupil description, right Regular Pupil reaction, left Brisk Pupil reaction, right Brisk Pupil Size, Left 3 mm Pupil Size, Right 3 mm Strength LUE 5-Active movement against gravity & full resistance Strength RUE 5-Active movement against gravity & full resistance Strength LLE 5-Active movement against gravity & full resistance Strength RLE 5-Active movement against gravity & full resistance Tone LUE Normal Tone RUE Normal Tone LLE Normal Tone RLE Normal Sensation LUE Intact Sensation RUE Intact Sensation LLE Intact Sensation RLE Intact Movement LUE Spontaneous Movement RUE Spontaneous Movement LLE Spontaneous Movement RLE Spontaneous Gait Unsteady Response Eye Opening Spontaneously Motor Response-Adult Obeys commands Verbal Response-Adult Oriented and converses [place] Coma Score 15 1 - 10 Pain Scale Score 7 Neuro WNL except Eyes and Movements Conjugate gaze: Move in same direction at same speed 03/14/2022 8:27 EST Pain Intensity 7 03/14/2022 5:00 EST Neurological Assessment Status Unchanged from recorder's assessment 03/14/2022 1:00 EST Neurological Assessment Status Unchanged from recorder's assessment 03/13/2022 21:00 EST Neurological Symptoms Altered sensation or tingling, Impaired mental ability, Memory loss, Numbness Level of Consciousness Confusion Orientated to person, place, time Person, Place, Time Characteristics of Speech Clear and normal Swallowing Difficulty None Pupil description, left Regular Pupil description, right Regular Pupil reaction, left Brisk Pupil reaction, right Brisk Pupil Size, Left 3 mm Pupil Size, Right 3 mm Strength LUE 5-Active movement against gravity & full resistance Strength RUE 5-Active movement against gravity & full resistance Strength LLE 5-Active movement against gravity & full resistance Strength RLE 5-Active movement against gravity & full resistance Tone LUE Normal Tone RUE Normal Tone LLE Normal Tone RLE Normal Sensation LUE Intact Sensation RUE Intact Sensation LLE Intact Sensation RLE Intact Movement LUE Spontaneous, To command Movement RUE Spontaneous, To command Movement LLE Spontaneous, To command Movement RLE Spontaneous, To command Gait Unable to assess Response Eye Opening Spontaneously Motor Response-Adult Obeys commands Verbal Response-Adult Oriented and converses Nelida Coma Score 15 1 - 10 Pain Scale Score 7 Pain Interventions Non-pharmacological, Pharmacological, PRN medication, Repositioning, Rest, Other: Ice &/heat packs offered, pt refused Neuro WNL except Eyes and Movements Conjugate gaze: Move in same direction at same speed Headache None Swallow - Neuro Normal 03/13/2022 20:54 EST Pain Intensity 7 03/13/2022 9:00 EST Pain Intensity Not Done: med given per Cath RN (Not Done) 03/13/2022 8:21 EST Neurological Symptoms None Level of Consciousness Full Consciousness Orientated to person, place, time Person, Place, Time, Event Neuro WNL except Memory Intact 03/13/2022 4:00 EST Neurological Assessment Status Unchanged from recorder's assessment 03/13/2022 0:00 EST Neurological Assessment Status Unchanged from recorder's assessment 03/12/2022 20:00 EST Tongue Disposition Midline Level of Consciousness Full Consciousness Orientated to person, place, time Person, Place, Time Hallucinations None Facial Symmetry Intact Characteristics of Speech Clear and normal Swallowing Difficulty None Pupil description, left Regular Pupil description, right Regular Pupil reaction, left Brisk Pupil reaction, right Brisk Pupil Size, Left 3 mm Pupil Size, Right 3 mm Strength LUE 4-Active movement against gravity & some resistance Strength RUE 5-Active movement against gravity & full resistance Strength LLE 4-Active movement against gravity & some resistance Strength RLE 5-Active movement against gravity & full resistance Tone LUE Normal Tone RUE Normal Tone LLE Normal Tone RLE Normal Sensation LUE Intact Sensation RUE Intact Sensation LLE Intact Sensation RLE Intact Movement LUE Spontaneous, To command Movement RUE Spontaneous, To command Movement LLE Spontaneous, To command Movement RLE Spontaneous, To command Gait Other: Gait is steadier with walker and one assisst. Response Eye Opening Spontaneously Motor Response-Adult Obeys commands Verbal Response-Adult Oriented and converses [place] Coma Score 15 Neuro WNL except Corneal/Blink Reflex Intact right, Intact left Eyes and Movements Conjugate gaze: Move in same direction at same speed Memory Intact Swallow - Neuro Normal 03/12/2022 9:08 EST Pain Intensity 0 03/12/2022 9:00 EST Neurological Symptoms Altered sensation or tingling, Numbness, Unsteady gait/Ataxia, Weakness or loss of muscle strength Orientated to person, place, time Person, Place, Time Facial Symmetry Intact Characteristics of Speech Clear and normal Pupil description, left Regular Pupil description, right Regular Pupil reaction, left Brisk Pupil reaction, right Brisk Strength LUE 4-Active movement against gravity & some resistance Strength RUE 4-Active movement against gravity & some resistance Strength LLE 5-Active movement against gravity & full resistance Strength RLE 5-Active movement against gravity & full resistance Tone LUE Normal Tone RUE Normal Tone LLE Normal Tone RLE Normal Sensation LUE Intact Sensation RUE Intact Sensation LLE Intact Sensation RLE Intact Movement LUE Spontaneous, To command Movement RUE Spontaneous, To command Movement LLE Spontaneous, To command Movement RLE Spontaneous, To command Gait Short steps, Shuffling Response Eye Opening Spontaneously Motor Response-Adult Obeys commands Verbal Response-Adult Oriented and converses Nelida Coma Score 15 Pain Location Foot, left, Foot, right Neuro WNL except Eyes and Movements Conjugate gaze: Move in same direction at same speed Swallow - Neuro Normal . Respiratory/Pulmonary Data. : Respiratory/Pulmonary Data. 03/14/2022 12:16 EST Respiratory Assessment Comment complained of SOB when laying down, educated onbenefits of raising HOB Cough Non-productive Left Upper Lobe Breath Sounds Crackles/rales Right Upper Lobe Breath Sounds Crackles/rales Right Middle Lobe Breath Sounds Crackles/rales Left Lower Lobe Breath Sounds Crackles/rales Right Lower Lobe Breath Sounds Crackles/rales Respiratory WNL except 03/14/2022 12:05 EST Mode of Delivery (Oxygen) Room air 03/14/2022 8:14 EST Mode of Delivery (Oxygen) Room air 03/14/2022 4:24 EST Mode of Delivery (Oxygen) Room air 03/14/2022 0:46 EST BiPAP/CPAP Comment Pt refused CPAP. PT/SYS Assess Non-Emerg NIV 1 03/14/2022 0:40 EST Mode of Delivery (Oxygen) Room air 03/13/2022 21:01 EST Mode of Delivery (Oxygen) Room air 03/13/2022 21:00 EST Respiratory Treatment(s) Cough and deep breathe, Other: CPAP at night, pt refused to wear it tonight Respiratory WNL except 03/13/2022 16:12 EST Mode of Delivery (Oxygen) Room air 03/13/2022 12:27 EST Mode of Delivery (Oxygen) Room air 03/13/2022 10:43 EST Mode of Delivery (Oxygen) Room air 03/13/2022 9:00 EST Respiratory Treatment(s) Cough and deep breathe 03/13/2022 8:21 EST Respiratory Symptoms None Respiratory effort Unlabored Upper Airway Clear Left Upper Lobe Breath Sounds Clear Right Upper Lobe Breath Sounds Clear Right Middle Lobe Breath Sounds Clear Left Lower Lobe Breath Sounds Clear Right Lower Lobe Breath Sounds Clear Respiratory distress None Respiratory WNL except 03/13/2022 7:00 EST Mode of Delivery (Oxygen) Room air 03/13/2022 3:06 EST Mode of Delivery (Oxygen) Room air 03/12/2022 23:25 EST Mode of Delivery (Oxygen) Room air 03/12/2022 20:08 EST Mode of Delivery (Oxygen) Room air 03/12/2022 20:00 EST Respiratory WNL 03/12/2022 17:00 EST Respiratory Treatment(s) Cough and deep breathe 03/12/2022 15:37 EST Mode of Delivery (Oxygen) Room air 03/12/2022 15:00 EST Respiratory Treatment(s) Cough and deep breathe 03/12/2022 13:00 EST Respiratory Treatment(s) Cough and deep breathe 03/12/2022 11:37 EST Mode of Delivery (Oxygen) Room air 03/12/2022 11:00 EST Respiratory Treatment(s) Cough and deep breathe 03/12/2022 9:00 EST Respiratory effort Unlabored Cough Non-productive, Occasional Left Upper Lobe Breath Sounds Clear Right Upper Lobe Breath Sounds Clear Right Middle Lobe Breath Sounds Clear Left Lower Lobe Breath Sounds Clear Right Lower Lobe Breath Sounds Clear Respiratory Treatment(s) Cough and deep breathe Respiratory WNL except 03/12/2022 8:29 EST Mode of Delivery (Oxygen) Room air 03/12/2022 4:06 EST Mode of Delivery (Oxygen) Room air . Pain Data : PAIN SECTION 03/14/2022 12:16 EST 1 - 10 Pain Scale Score 7 03/14/2022 8:27 EST Pain Intensity 7 03/13/2022 21:00 EST 1 - 10 Pain Scale Score 7 03/13/2022 20:54 EST Pain Intensity 7 03/13/2022 9:00 EST Pain Intensity Not Done: med given per Cath RN (Not Done) 03/12/2022 9:08 EST Pain Intensity 0 03/12/2022 9:00 EST Pain Location Foot, left, Foot, right . Evaluation Pt A&O x 4. Able to follow commands. Complains of chronic 7/10 BL foot pain but refused tylenol. PERRL 3 mm BL. 5/5 strength, no facial droop or tongue deviation, clear speech, sensation intact. Pedal and radial pulses 2+ BL. Rhonchi in BL lungs, has non productive cough. Requested cough syrup, administered around 1200. Complains of SOB when lying down, educated pt on sitting up to decrease SOB. Has CPAP for CLEOPATRA. PT saw pt this AM, recommended rehab due to unsteady gait. Walks to bathroom wwalker and 1 assist. Mixed incontinence, had [place] cath which was patent and draining concentrated yellow urine, but pt removed at 1200. BS 157 mL at 1000. Positive bowel sounds in all 4 quadrants. LBM 03/14, multiple BM this morning. Skin warm and dry. R femoral dressing from cardiac cath CDI. No IV access. Bed locked and in lowest position. Call zamudio within reach. Seizure pads applied to rails this morning to maintain seizure precautions. See cis for full biophysical.. Discharge Information Rehabilitation Discharge : Rehab Discharge Index 03/10/2022 13:06 EST Walker: distance >50 * Rocael Vargas: PERFORM, MODIFY Event Display: Progress Note Hospital Authored Date: [id number] Patient: ??JOHN SHERMAN ? Age:??66 Years?Sex:??Male?:??1955?? Chief Complaint Stroke Alert - Sudden onset of AMS,lethargy , slurred speech, unsteady gait per family ,LWK 330 pm,Fast ED 2. EMS reports pt had a witnessed fall earlier in the day , did not strike head. History of Present Illness Interval hx: - Patient back to baseline presentation (prior to admission) - dx angio with Dr. James revealed 50% stenosis of L.ICA Physical Exam Vitals & Measurements T:??97.8?F ?? OK:??92?? RR:??18?? BP:??146/76?? SpO2:??97%?? HT:??178??cm?? WT:??72.5??kg?? BMI:??22.88?? 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 CT Head nonacute. CTA Head/Neck without change to bilateral cervical ICA stenosis (LICA stenosis. ~60%; JONNATHAN: ~30%). MRI Brain nonacute, but with multiple chronic infarcts.??Angio with Dr. James demonstrating 50% stenosis; therefore no stent was placed. ? DDx: Left??hemispheric TIA; Diagnostic angio with 50% stenosis ?? Recommendations: - Continue ASA 81mg daily and Plavix 75mg daily for 90days -??Increase Atorvastatin to 80mg daily - Smoking cessation - Continue to control vascular risks: A1C <7.0. Statin therapy for LDL >70 or >100 with only one vascular risk. [facility] BP control - Outpatient followup with Neurology in 3-months with repeat Lipid panel - appointment requested ?? Neurology will sign off Discussed w/?? Dr. Heard and Dr. Humphrey Problem List/Past Medical History Ongoing Acute ischemic stroke Benign hypertension CAD (coronary artery disease) Chronic lower back pain COPD without exacerbation Current smoker Diabetes mellitus Encephalopathy Frequent falls Macrocytic anemia Obese class I CLEOPATRA on CPAP Underweight Vitamin B12 deficiency Historical Dyslipidemia Procedure/Surgical History Cerebral angiogram, coil right MCA aneurysm: 11/07/20 Home Medications Ascorbic Acid: 500 mg = 1 tablet, By Mouth, Daily Aspirin: 1 tablet, By Mouth, Daily Atorvastatin: 40 mg = 1 tablet, By Mouth, Daily at bedtime Calcium Carbonate: 500 mg = 1 tablet, Chew, 3 times a day, PRN (as needed for dyspepsia) Cholecalciferol: 1,250 mcg = 1 capsule, By Mouth, Every week Clonazepam: 0.5 mg = 1 tablet, By Mouth, 2 times a day, PRN (Anxiety) Clopidogrel: 75 mg = 1 tablet, By Mouth, Daily Cyanocobalamin: 1,000 mcg = 1 tablet, By Mouth, Daily Durable Medical Equipment (large pull ups): See Instructions, DX: incontinence N39.46 Folic Acid: 1 mg = 1 tablet, By Mouth, Daily Glimepiride: 1 tablet, By Mouth, 2 times a day Lisinopril: 5 mg = 1 tablet, By Mouth, Daily Magnesium Oxide: 1 tablet, By Mouth, Daily Metformin: 1 tablet, By Mouth, 2 times a day Oxycodone: TAKE 1 TABLET BY MOUTH 5 TIMES A DAY Pantoprazole: 1 tablet, By Mouth, Daily Sertraline: 25 mg = 1 tablet, By Mouth, Daily Thiamine: 1 tablet, By Mouth, Daily * Kingston Heard MD: PERFORM Event Display: Progress Note Hospital Authored Date: Attending Attestation:??I have discussed the case and its management with the advanced practitionerand agree with the findings and plan as documented in the advanced practitioner???s note. ?? Kingston Heard M.D Attending-Vascular Neurology Department of Neurosciences Professor Of Theatre of [id number] ? Please note - The above note was created using [employer] software and dictation errors may have occurred; I apologize for any mistakes in the manager intelligence. ??Thank you for your patience as we continue to work on perfecting the dictation process. ??Please feel free to contact us for any clarification purposes. * Wendi Armendariz RN: PERFORM, SIGN, VERIFY Event Display: Progress Note Hospital Authored Date: Patient: JOHN SHERMAN Age: 66 years Sex: Male : 1955 Associated Diagnoses: None Author: Wendi Armendariz RN Findings Problem Related to Alteration in Neurological : Alteration in Neurological Function/new 03/13/2022 22:00 EST Alteration in Neuro status Related to Trans Ischemic Attack (TIA) Goals & Outcomes, Neurological Lab studies/diagnostic tests within pt specific limits, Pt is safe with transfers & activities, Pt will be discharged without infection, Pt will be hemodynamically stable, Pt will be Neurologically stable, Pt will maintain intact skin integrity, Pt will remainfree from injury, Pt will resume/maintain adequate cardiac output, Pt will state importance of adhering to medication regime, Pt/caregiver will receive psychosocial support as needed, Pt/caregiver will state understanding of rehab plan, Pt/caregiver will state strategies to reduce risk factors, Pt/caregiver will state understanding of disease process, Pt/caregiver will state understanding of plan/goals of care, Pt/caregiver will state understanding of the D/C plan Interventions, Neurological Assess/monitor neurologic status, Assess/monitor VS per unit standards & prn, Call/Report variances in assessments to provider, Keep patient's head & body in good alignment, Maintain patient safety if unsteady gait, Monitor for headaches, nausea, vomiting, Monitor speech fluency, aphasia, word finding difficulty, Physical assessment per unit standards, Provide emotional support to Pt/caregiver, Teach & encourage deep breath & cough exercises, Teach pt/caregiver discharge plan & follow up care, Teach pt/caregiver on plan of care, treatment, s/s & meds, Teach pt/caregiver on use of pain scale BH Goals/Interventions, Neurological Yes Neurological, Problem Start 03/08/2022 3:30 Reviewed plan with, Neurological Patient Patient Progression, Neurological Pt progressing according to plan . Nursing Data Neurological Data. : Neurological Data. 03/13/2022 21:00 EST Neurological Symptoms Altered sensation or tingling, Impaired mental ability, Memory loss, Numbness Level of Consciousness Confusion Orientated to person, place, time Person, Place, Time Characteristics of Speech Clear and normal Swallowing Difficulty None Pupil description, left Regular Pupil description, right Regular Pupil reaction, left Brisk Pupil reaction, right Brisk Pupil Size, Left 3 mm Pupil Size, Right 3 mm Strength LUE 5-Active movement against gravity & full resistance Strength RUE 5-Active movement against gravity & full resistance Strength LLE 5-Active movement against gravity & full resistance Strength RLE 5-Active movement against gravity & full resistance Tone LUE Normal Tone RUE Normal Tone LLE Normal Tone RLE Normal Sensation LUE Intact Sensation RUE Intact Sensation LLE Intact Sensation RLE Intact Movement LUE Spontaneous, To command Movement RUE Spontaneous, To command Movement LLE Spontaneous, To command Movement RLE Spontaneous, To command Gait Unable to assess Response Eye Opening Spontaneously Motor Response-Adult Obeys commands Verbal Response-Adult Oriented and converses Nelida Coma Score 15 1 - 10 Pain Scale Score 7 Pain Interventions Non-pharmacological, Pharmacological, PRN medication, Repositioning, Rest, Other: Ice &/heat packs offered, pt refused Neuro WNL except Eyes and Movements Conjugate gaze: Move in same direction at same speed Headache None Swallow - Neuro Normal . Evaluation Pt A+OX3-4, can be forgetful/confused. GORDON 5/5, follows commands. Denies PETE, dizziness, N/V, or changes in vision. Sensation intact, pt c/o N/T in both feet at baseline. +PP, LS CTA, pt denies chest pain or SOB. Pt refused CPAP tonight, also confused CPAP machine with lunch tray, asked me to open it for him. Pt OOB to BR with walker X1 assist. [place] cath patent, draining CYU. R femoral dressing CDI. C/o 7/10 pain in both feet, Tylenol given with positive effect. IV leaking, new IV obtained, pt pulled out new IV within a few hours and didn't know what it was. Catheter intact. Plan to D/C home with services? Safety precautions maintained, bed locked in lowest position, call zamudio in reach. Will continue to monitor.. Portable XR Chest Views * [facility]SPowerscribe , CIS S: TRANSCRIBE Rodney SAVAGE, Dipesh Cisneros: VERIFY Event Display: Result: Authored Date: [id number] Chest Portable Hx of Present Illness: pt coming from home - onset of slurred speech unilateral weakness facial droop. mechanical fall, negative headstrike. hypertensive; Reason: Other:; Stroke; Clinical Question(s): CHF; Order Comment: Patient with Doctor @ 19:28 COMPARISON: None. FINDINGS: LINES AND TUBES: None. LUNGS AND PLEURA: Clear lungs. Normal pulmonary vascularity. No pleural effusion. No pneumothorax. HEART, MEDIASTINUM AND MAHESH: Heart is normal in size. Normal mediastinal and hilar contour. BONES AND SOFT TISSUES: No acute abnormality. Mild degenerative changes of the spine. IMPRESSION: No acute abnormality. WSN: [id number] Ordering Physician: Dolores Valiente Dictated By: Dipesh Stevens MD Dictated Date/Time: 03/07/22 8:02 pm Reviewed By: Dipesh Stevens MD Signed By: Dipesh Stevens MD Signed Date/Time: 03/07/22 8:02 pm Transcribed By: ANDREAS Transcribed Date/Time: 03/07/22 8:01 pm MR Brain WO contrast * [facility]SPowerscribe , CIS S: JC Finn MD, Viry N: VERIFY Event Display: Result: Authored Date: [id number] MRI Brain W/O Contrast INDICATION: Reason: TIA; Clinical Question(s): Infarction; Order Comment: Please see Reference Textfor complete list of contraindications Infarction TECHNIQUE: MRI of the brain was performed without contrast utilizing sagittal T1, axial T2, axial FLAIR, axial SWAN, and axial DWI sequences. COMPARISON: Head CT 03/07/2022. Brain MRI 12/28/2020. FINDINGS: BRAIN and EXTRA-AXIAL SPACES: There is prominence of the ventricles and sulci reflecting volume loss, and there is encephalomalacia with cystic change and gliosis in the right frontal lobe, similar to the previous exam also involving the lateral basal ganglia. These areas are associated with chronic hemosiderin staining, unchanged. There is chronic encephalomalacia is also seen involving the right putamen and camargo radiata extending into the superior posterior right frontal lobe where there was previously a subacute infarct. Associated hemosiderin staining also seen in this area. There is anarea of cavitated encephalomalacia superior to the body of the left lateral ventricle compatible with a chronic lacunar infarct. Several additional chronic lacunar infarcts are demonstrated in the bilateral thalami, the left cerebellum, and in the bilateral basal ganglia. There is evidence of wallerian degeneration on the right with increased T2 signal and decreased size of the right cerebral peduncle, and T2 hyperintense signal extending into the dickson along the expected course of the corticospinal tract. However, there is no restricted diffusion to indicate acute or subacute infarction. Scattered nonspecific T2/flair hyperintensities in the supratentorial white matter most likely reflect chronic small vessel disease. There is no hemorrhage, midline shift, or mass effect. There is no extra-axial collection. There isincreased FLAIR signal in the left transverse and sigmoid sinuses as well as in the imaged upper left internal jugular vein, new from 2020 but without corresponding restricted diffusion, low signal on the susceptibility imaging, and without complete loss of the flow void on the T1 imaging. No definite corresponding hyperdensity on the head CT. In addition, the left transverse and sigmoid sinus appear opacified on the CTA of the head. The alteration in the signal therefore probably reflects slowflow. EXTRACRANIAL SOFT TISSUES: There have been lens replacements bilaterally. There is mild scattered paranasal sinus mucosal thickening with mucous retention cysts in the maxillary sinuses, right greater than left. BONES: Marrow signal is preserved. IMPRESSION: Multiple chronic infarcts as described above, but no evidence of acute or subacute infarction. Nonspecific white matter signal changes which most likely reflect chronic small vessel disease. WSN: [id number] Ordering Physician: Pranav Craig Dictated By: Viry Finn MD Dictated Date/Time: 03/08/22 2:19 pm Reviewed By: Viry Finn MD Signed By: Viry Finn MD Signed Date/Time: 03/08/22 2:19 pm Transcribed By: ANDREAS Transcribed Date/Time: 03/08/22 2:13 pm Patient Care team information Care Team Personnel Name: Alicia Negron Position: S RN Member Role: Primary Care Nurse Name: Ewa Everett RN Position: S RN Member Role: Primary Care Nurse Name: Hanna Dailey Position: S RN Member Role: Primary Care Nurse Name: Gela Orosco RN Position: S RN Member Role: Primary Care Nurse Name: Jessica Castrejon RN Position: [facility] RN Member Role: Primary Care Nurse Name: Hien Hidalgo RN Position: [facility] RN Member Role: Primary Care Nurse Name: Evelyn Mcnulty RN Position: [facility] RN Member Role: Primary Care Nurse Name: Sonya Dee NP Position: [facility] PCO Associate Professional Member Role: PCP Address: Address: [address] [place] [address], [address] [facility] [place], [place] [address] Name: Pola Reid RN Position: [facility] RN Member Role: Primary Care Nurse Name: Betzy Beckford RN Position: [facility] RN Member Role: Primary Care Nurse Name: Karley Perry Position: [facility] RN Member Role: Primary Care Nurse Name: Zully Jara Position: [facility] RN Member Role: Primary Care Nurse Name: Yunior Bui RN Position: [facility] RN Member Role: Primary Care Nurse Name: Candace Liang RN Position: [facility] RN Member Role: Primary Care Nurse Name: Kassi Mars RN Position: [facility] RN Member Role: Primary Care Nurse Name: Dedra Lezama Position: [facility] RN Member Role: Primary Care Nurse Name: Pat Fernando RN Position: [facility] RN Member Role: Primary Care Nurse Name: Randa Sagastume RN Position: [facility] RN Member Role: Primary Care Nurse Name: Liborio Palomares RN Position: [facility] RN Member Role: Primary Care Nurse Name: Yulia Veliz RN Position: [facility] RN Member Role: Primary Care Nurse Name: Chandni Ball RN Position: [facility] RN Member Role: Primary Care Nurse Name: Mitra Patel Position: [facility] RN Member Role: Primary Care Nurse Name: Kacie Campbell RN Position: [facility] RN Member Role: Primary Care Nurse Name: Charito Vazquez RN Position: [facility] ED RN W/OE and Tasks Member Role: Primary Care Nurse Name: Dylan Bond RN Position: [facility] RN Member Role: Primary Care Nurse Name: Phuong Delgado RN Position: [facility] RN Member Role: Primary Care Nurse Name: Lydia Doehrty RN Position: [facility] RN Member Role: Primary Care Nurse Name: Elie Davis RN Position: [facility] RN Member Role: Primary Care Nurse Name: Delfina Still RN Position: [facility] RN Member Role: Primary Care Nurse Name: Suzy Mccracken RN Position: [facility] RN Member Role: Primary Care Nurse Name: Rosio Gibbons RN Position: [facility] RN Member Role: Primary Care Nurse Name: Viry Zacarias RN Position: [facility] RN Member Role: Primary Care Nurse Name: Kerri Cunha RN Position: [facility] Hospital Doll Dresser Member Role: Primary Care Nurse Name: Atiya Mcintyre RN Position: [facility] RN Member Role: Primary Care Nurse Name: Dolores Valiente DO Position: [facility] Resident Member Role: ED Resident Address: Address: [address] [place] [id number]- Name: Naty Chamberlain Position: [facility] ED TA [facility] Member Role: Keg Raiser Name: Marcelino Lees MD Position: [facility] ED Medicine MD Address: Address: [address] [place] [id number] Name: Nita Sinha Position: [facility] ED RN W/OE and Tasks Member Role: Patient Care Provider Name: Lydia Veronica Position: [facility] ED OA Charge Member Role: ED Associate Care Team Related Persons Name: KEENAN BRUNNER Address: home [address] Name: KEENAN CORRAL Address: [place] [address]
--- OUTSIDE RECORDS SUMMARY | 2023-04-11 15:21 | XMS_ITS | Continuity of Care Document ---
Author Name Unknown Organization [facility] Address [address] [place] [address]- Care Team Providers Care Burglar Alarm Inspector Name Role Phone Luiz SALAS, Sonya Primary Care Physician Encounter [facility] Date(s): 12/20/20 - 01/19/21 [facility] [address] [place] [address]- Allergies, Adverse Reactions, Alerts Substance Reaction Severity [...] Refills, Maintenance, 01/16/21 10:30:00 EDT, Tablet, [facility]/pharmacy #[id number], Partial fill upon patient request if the [...] 11 Refills, Maintenance,01/16/21 10:26:00 EDT, Capsule, [facility]/pharmacy #[id number], Partial fill upon patient request [...] 10:29:00 EDT, Route to Pharmacy Electronically, [facility]/pharmacy #[id number], Partial fill upon patient request [...] 0 Refills, Maintenance, 03/15/20 12:57:00 EST, Tablet, [facility], Partial fill upon patient request, 178, cm, 03/15/20 11:15:00 EST, Height, 105, kg, 03/12/20 6:12:00 EST, Dry W... Start Date: 03/15/20 Status: Ordered oxyCODONE 5 mg oral tablet 5 mg, 1, tablet, By Mouth, 5 times a day, BATCH PLANT SUPERVISOR checked., # 140 tablet, Refills 0, Tot. 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
--- OUTSIDE RECORDS SUMMARY | 2023-04-11 15:21 | XMS_ITS | Continuity of Care Document ---
Author Name Unknown Organization [facility] Address [address] [place] [address]- Care Team Providers Care Licensed Mental Health Professional Name Role Phone Luiz SALAS, Sonya Primary Care Physician [phone] Encounter [facility] Date(s): 01/19/21 - 02/18/21 [facility] [address] [place] [address]- Allergies, Adverse Reactions, Alerts Substance Reaction Severity [...] 5 Refills, Maintenance, 01/16/21 10:30:00 EDT, Tablet, [facility]/pharmacy #[id number], Partial fill upon patient request if the prescription is for a schedule II opioid drug., 178, cm, 12/29/20 5:31:00 EDT, Height, 1... Start Date: 01/16/21 Stop Date: 07/15/21 Status: Ordered aspirin 81 mg oral tablet, chewable 81 mg, 1, tablet, By Mouth, Daily, # 30 tablet, Refills 5, Tot. Refills 5, Maintenance, 01/16/21 10:30:00 EDT, Route to Pharmacy Electronically, [facility]/pharmacy #[id number], Partial fill upon [...] capsule, 11 Refills, Maintenance,01/16/21 10:26:00 EDT, Capsule, [facility]/pharmacy #[id number], Partial fill upon patient request if the prescription is for a schedule II opioid drug., 178, cm, 0... Start Date: 01/16/21 Stop Date: 01/11/22 Status: Ordered clonazePAM 0.5 mg oral tablet 1 tablet = 0.5 mg, By Mouth, 3 times a day, # 90 tablet, 1 Refills, Maintenance, 01/16/21 10:52:00 EDT, Tablet, [facility]/pharmacy #[id number], Partial fill upon [...] 01/16/21 10:29:00 EDT, Route to Pharmacy Electronically, [facility]/pharmacy #[id number], Partial fill upon [...] 0 Refills, Maintenance, 03/15/20 12:57:00 EST, Tablet, [facility], Partial fill upon patient request, 178, cm, 03/15/20 11:15:00 EST, Height, 105, kg, 03/12/20 6:12:00 EST, Dry W... Start Date: 03/15/20 Status: Ordered MiraLax oral powder for reconstitution = 17 Gm, By Mouth, Daily, for 14 days, dissolve in water before taking, # 238 Gm, 0 Refills, Acute 02/27/21 13:29:00 EST, 02/13/21 13:29:00 EDT, REC Powder, [facility]/pharmacy #[id number], Partial fill upon patient request if the prescription is for a schedule II... Start Date: 02/13/21 Stop Date: 02/27/21 Status: Ordered oxyCODONE 5 mg oral tablet 5 mg, 1, tablet, By Mouth, 5 times a day, MATERIALS AND PROCESSES MANAGER checked., # 140 tablet, Refills 0, Tot. Refills 0, Maintenance, 01/16/21 10:52:00 EDT, Route to Pharmacy Electronically, 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
--- OUTSIDE RECORDS SUMMARY | 2023-04-11 15:21 | XMS_ITS | Continuity of Care Document ---
Author Name Unknown Organization [facility] Address [address] [place] [address]- Care Team Providers Care Trimmer Buffing Wheel Name Role Phone Luiz CARRIAGE OPERATOR, Sonya Primary Care Physician Encounter [facility] Date(s): 02/08/22 - 03/10/22 [facility] [address] [place] [address]- Allergies, Adverse Reactions, Alerts Substance Reaction Severity [...] [facility]: [id number] Medications Aspirin Low Dose 81 mg oral [...] 5 Refills, Maintenance, 01/17/22 14:43:00 EDT, [facility], 177, cm, 01/17/22 7:37:00 EDT, Height, [...] 5 Refills, Maintenance, 01/17/22 14:43:00 EDT, [facility], 177, cm, 01/17/22 7:37:00 EDT, Height, 75, kg, 01/11/22 12:33:00 EDT, Dry Weight Start Date: 01/17/22 Status: Ordered metFORMIN 1000 mg oral tablet 1 tablet, By Mouth, 2 times a day, # 56 tablet, 5 Refills, Maintenance, 01/17/22 14:43:00 EDT, [facility], 177, cm, 01/17/22 7:37:00 EDT, [...] Confirmed Active 1angioplasty 2000; 3 stents at [facility] 2R frontal stroke secondary to [...] Care Nurse Name: Gela Orosco RN Position: [facility] RN Member Role: Primary Care Nurse Name: Jessica Castrejon RN Position: S RN Member Role: Primary Care Nurse Name: Hien Hidalgo RN Position: [facility] RN Member Role: Primary Care Nurse Name: Evelyn Mcnulty RN Position: [facility] RN Member Role: Primary Care Nurse Name: Sonya Dee NP Position: [facility] PCO Associate Professional Member Role: PCP Address: Address: [address] [place] [address], [address] Name: Pola Reid RN Position: S [...] Care Nurse Name: Pat Fernando RN Position: [facility] RN Member Role: Primary Care Nurse Name: Randa Sagastume RN Position: [facility] RN Member Role: Primary Care Nurse Name: Liborio Palomares RN Position: [facility] RN Member Role: Primary Care Nurse Name: Yulia Veliz RN Position: [facility] RN Member Role: Primary Care Nurse Name: Chandni Ball RN Position: [facility] RN Member Role: Primary Care Nurse Name: Mitra Patel Position: [facility] RN Member Role: Primary Care Nurse Name: Kacie Campbell RN Position: [facility] RN Member Role: Primary Care Nurse Name: Charito Vazquez RN Position: [facility] ED RN W/OE and Tasks Member Role: Primary Care Nurse Name: Dylan Bond RN Position: [facility] RN Member Role: Primary Care Nurse Name: Phuong Delgado RN Position: [facility] RN Member Role: Primary Care Nurse Name: Elie Davis RN Position: [facility] RN Member Role: Primary Care Nurse Name: Delfina Still RN Position: [facility] RN Member Role: Primary Care Nurse Name: Suzy Mccracken RN Position: [facility] RN Member Role: Primary Care Nurse Name: Rosio Gibbons RN Position: [facility] RN Member Role: Primary Care Nurse Name: Viry Zacarias RN Position: [facility] RN Member Role: Primary Care Nurse Name: Kerri Cunha RN Position: [facility] Hospital Panel Lay Up Worker Member Role: Primary Care Nurse Name: Atiya Mcintyre RN Position: [facility] RN Member Role: Primary Care Nurse Care Team Related Persons Name: IBETH BRUNNER Address: home [address] [facility] [place], [place] Name: IBETH CORRAL Address: home [address] [facility] [place], [place]
--- OUTSIDE RECORDS SUMMARY | 2023-04-11 15:21 | XMS_ITS | Continuity of Care Document ---
Author Name Unknown Organization [facility] Adult Address [address] [place] [address]- Care Team Providers Care Sheet Metal Duct Installer Helper Name Role Phone Luiz NETWORK CONTROL TECHNICIAN, Sonya Primary Care Physician [facility] 11[facility]27/22 - 12/27/22 [facility] Adult [address] [place] [address]- Allergies, Adverse Reactions, Alerts Substance Reaction Severity [...] pneumococcal 23-valent vaccine 02/04/13 Recorded 1Result Comment: [facility]: [id number] Medications Acetaminophen = 650 mg, By Mouth, Every 6 hours, PRN as needed for fever, for temp >100 and as needed for painnot to exceed 4 doses/day, 0 Refills, Maintenance, 12/27/22 9:15:00 EDT, Partial fill upon patient request if the prescription is for a schedule II opio... Start Date: 12/27/22 Status: Ordered albuterol-ipratropium 3 mg-0.5 mg/3 ml [...] opioid drug. Start Date: 10/26/22 Status: Ordered Fleet Enema 19 gm-7 gm rectal enema 118 mL, Rectally, PRN as needed for constipation, 0 Refills, [...] 11:46:00 EDT, Height, 79.5, kg, 10/20/22 13:34:00 EDTTova. Start Date: 11/23/22 Stop Date: 11/18/23 Status: [...] 13:34:00 EDT, Start Date: 11/23/22 Status: Ordered Keppra 500 mg oral tablet = 500 mg, By Mouth, 2 times a day, 0 Refills, Maintenance, 12/18/22 12:28:00 EDT, Tablet, Partial fill upon patient request if the prescription is for a schedule II opioid drug. Start Date: 12/18/22 Status: Ordered large pull ups large pull ups, See Instructions, # 120 each, Refills 11, Tot. Refills 11, Maintenance, DX: nestor N39.46, 02/09/22 14:03:00 EDT, Supply Start Date: [...] 2 times a day, 0 Refills, Maintenance, 12/27/22 9:20:00 EDT, Partial fill upon patient request if the prescription is for a schedule II opioid drug. 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 [...] Team Personnel Name: Adelia Landry RN Position: [facility] RN Member Role: Primary Care Nurse Name: Alicia Negron Position: [facility] RN Member Role: Primary Care Nurse Name: Jason Pereira RN Position: [facility] RN Member Role: Primary Care Nurse Name: Hanna Dailey Position: [facility] RN Member Role: Primary Care Nurse Name: Nereida Dobbins RN Position: [facility] RN Member Role: Primary Care Nurse Name: Gela Orosco RN Position: [facility] RN Member Role: Primary Care Nurse Name: Jessica Castrejon RN Position: [facility] RN Member Role: Primary Care Nurse Name: Hien Hidalgo RN Position: [facility] RN Member Role: Primary Care Nurse Name: Phuong Balderas RN Position: [facility] SN RN Member Role: Primary Care Nurse Name: Evelyn Mcnulty RN Position: [facility] RN Member Role: Primary Care Nurse Name: Yanely Shanks RN Position: [facility] RN Member Role: Primary Care Nurse Name: Sonya Dee NP Position: [facility] PCO Associate Professional Member Role: PCP Address: Address: [address] [place] [address], [address] Name: Siddhartha Andino RN Position: [facility] RN Member Role: Primary Care Nurse Name: Pola Reid RN Position: [facility] RN Supshiela Member Role: Primary Care Nurse Name: Betzy Beckford RN Position: [facility] RN Member Role: Primary Care Nurse Name: Susie Galicia RN Position: [facility] RN Member Role: Primary Care Nurse Name: Ezra Acuna RN Position: [facility] RN Member Role: Primary Care Nurse Name: Gabriella Gonsales RN Position: [facility] RN Member Role: Primary Care Nurse Name: Zully Jara Position: [facility] RN Member Role: Primary Care Nurse Name: Yunior Bui RN Position: [facility] RN Member Role: Primary Care Nurse Name: Candace Liang RN Position: [facility] RN Member Role: Primary Care Nurse Name: Marci Padilla RN Position: [facility] RN Member Role: Primary Care Nurse Name: Florecita Ring RN Position: [facility] RN Member Role: Primary Care Nurse Name: Dedra Lezama Position: [facility] RN Member Role: Primary Care Nurse Name: Pat Fernando RN Position: [facility] RN Member Role: Primary Care Nurse Name: Marquita Siddiqui RN Position: [facility] RN Member Role: Primary Care Nurse Name: Randa Sagastume RN Position: [facility] RN Member Role: Primary Care Nurse Name: Mitra Patel Position: [facility] RN Member Role: Primary Care Nurse Name: Kacie Campbell RN Position: [facility] RN Member Role: Primary Care Nurse Name: Charito Vazquez RN Position: [facility] ED RN W/OE and Tasks Member Role: Primary Care Nurse Name: Dylan Bond RN Position: [facility] RN Member Role: Primary Care Nurse Name: Lydia Doherty RN Position: [facility] RN Member Role: Primary Care Nurse Name: Elie Davis RN Position: [facility] RN Member Role: Primary Care Nurse Name: Delfina Still RN Position: [facility] RN Member Role: Primary Care Nurse Name: Mary Wagner RN Position: [facility] RN Member Role: Primary Care Nurse Name: Chandni Gibbons RN Position: [facility] SN RN Member Role: Primary Care Nurse Name: Brayden Elizabeth RN Position: [facility] RN Member Role: Primary Care Nurse Name: Viry Zacarias RN Position: [facility] RN Member Role: Primary Care Nurse Name: Kerri Cunha RN Position: [facility] Hospital Cuff Turner Machine Operator Member Role: Primary Care Nurse Name: Atiya Mcintyre RN Position: [facility] RN Member Role: Primary Care Nurse Care Team Related Persons Name: IBETH CORRAL Address: home [address] [place] [id number]
--- OUTSIDE RECORDS SUMMARY | 2023-04-11 15:21 | XMS_ITS | Continuity of Care Document ---
Author Name Unknown Organization [facility] Adult Address [address] [place] [address]- Care Team Providers Care Casting Assistant Name Role Phone Luiz SALAS, Sonya Primary Care Physician [facility]): 01/23/21 - 02/22/21 [facility] [address] [place] [address]- Allergies, Adverse Reactions, Alerts Substance Reaction Severity [...] 5 Refills, Maintenance, 01/16/21 10:30:00 EDT, Tablet, [facility]/pharmacy #[id number], Partial fill upon patient request if the prescription is for a schedule II opioid drug., 178, cm, 12/29/20 5:31:00 EDT, Height, 1... Start Date: 01/16/21 Stop Date: 07/15/21 Status: Ordered aspirin 81 mg oral tablet, chewable 81 mg, 1, tablet, By Mouth, Daily, # 30 tablet, Refills 5, Tot. Refills 5, Maintenance, 01/16/21 10:30:00 EDT, Route to Pharmacy Electronically, [facility]/pharmacy #[id number], Partial fill upon patient [...] capsule, 11 Refills, Maintenance,01/16/21 10:26:00 EDT, Capsule, [facility]/pharmacy #[id number], Partial fill upon patient request if the prescription is for a schedule II opioid drug., 178, cm, 0... Start Date: 01/16/21 Stop Date: 01/11/22 Status: Ordered clonazePAM 0.5 mg oral tablet 1 tablet = 0.5 mg, By Mouth, 3 times a day, # 90 tablet, 1 Refills, Maintenance, 01/16/21 10:52:00 EDT, Tablet, [facility]/pharmacy #[id number], Partial fill upon patient [...] 01/16/21 10:29:00 EDT, Route to Pharmacy Electronically, [facility]/pharmacy #[id number], Partial fill upon patient [...] 0 Refills, Maintenance, 03/15/20 12:57:00 EST, Tablet, [facility], Partial fill upon patient request, 178, cm, 03/15/20 11:15:00 EST, Height, 105, kg, 03/12/20 6:12:00 EST, Dry W... Start Date: 03/15/20 Status: Ordered MiraLax oral powder for reconstitution = 17 Gm, By Mouth, Daily, for 14 days, dissolve in water before taking, # 238 Gm, 0 Refills, Acute 02/27/21 13:29:00 EST, 02/13/21 13:29:00 EDT, REC Powder, [facility]/pharmacy #[id number], Partial fill upon patient request if the prescription is for a schedule II... Start Date: 02/13/21 Stop Date: 02/27/21 Status: Ordered oxyCODONE 5 mg oral tablet 5 mg, 1, tablet, By Mouth, 5 times a day, SCISSORS SHARPENER checked., # 140 tablet, Refills 0, Tot. Refills 0, Maintenance, 01/16/21 10:52:00 EDT, Route to Pharmacy Electronically, [facility]/pharmacy #[id number], Partial fillupon patient request [...] 12/28/20 12:50:00 EDT, Route to Pharmacy Electronically, [facility], Partial fill upon patient [...]
--- OUTSIDE RECORDS SUMMARY | 2023-04-11 15:22 | XMS_ITS | Continuity of Care Document ---
Author Name Unknown Organization [facility] Address [address] [place] [address]- Care Team Providers Care Manager Shop Name Role Phone Luiz SALAS, Sonya Primary Care Physician [phone] [facility] 08/14/21 - 09/13/21 [facility] [address] [place] [address]- Allergies, Adverse Reactions, Alerts Substance Reaction Severity [...] Refills, Maintenance, 05/02/21 10:38:00 EST, Tablet, [id number], Partial fill upon patient request if the [...] tablet, Refills 1, Route to Pharmacy Electronically, [id number], 178, cm, 05/11/21 8:52:00 EST, Height, 81, [...] tablet, By Mouth, 5 times a day, DENT REMOVER checked., # 140 tablet, Refills 0, Tot. 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
--- OUTSIDE RECORDS SUMMARY | 2023-04-11 15:22 | XMS_ITS | Continuity of Care Document ---
Author Name Unknown Organization [facility] Adult Address [address] [place] [address]- Care Team Providers Care Fishing Line Winding Machine Operator Name Role Phone Luiz SALAS, Sonya Primary Care Physician [phone] [facility]s): 10/12/21 - 11/11/[address] [address]- Attending Physician: AdmJacobo lopez Admitting Physician: Admtr, [...] bedtime, # 28 tablet, 0 Refills, [facility], 160, cm, 10/22/21 7:52:00 EDT, Height, 81.7, [...] Pharmacy Electronically, [id number], 178, cm, 05/11/21 8:52:00 EST, Height, 81, [...] 10/22/21 16:00:00 EDT, Route to Pharmacy Electronically, [facility], Partial fill upon patient request if the prescription... Start Date: 10/22/21 Stop Date: 10/25/21 Status: Ordered Tums 500 mg oral tablet, chewable 500 mg, 1, tablet, Chew, 3 times a day, PRN, # 90 tablet, Refills 5, Tot. Refills 5, Maintenance, Dyspepsia, 05/02/21 10:38:00 EST, Route to Pharmacy Electronically, [facility]/pharmacy #[id number], Partial fill upon patient request if the [...]
--- OUTSIDE RECORDS SUMMARY | 2023-04-11 15:22 | XMS_ITS | Continuity of Care Document ---
Author Name Unknown Organization [facility] Adult Address [address] [place] [address]- Care Team Providers Care It Application Development Manager Name Role Phone Luiz SALAS, Sonya Primary Care Physician [facility]s): 01/04/21 - 02/03/21 [facility] [address] [place] [address]- Allergies, Adverse Reactions, Alerts Substance Reaction Severity [...] 5 Refills, Maintenance, 01/16/21 10:30:00 EDT, Tablet, [facility] [...] 01/16/21 10:30:00 EDT, Route to Pharmacy Electronically, [facility] [...] 0 Refills, Maintenance, 03/15/20 12:57:00 EST, Tablet, [facility], Partial fill upon patient request, 178, cm, 03/15/20 11:15:00 EST, Height, 105, kg, 03/12/20 6:12:00 EST, Dry W... Start Date: 03/15/20 Status: Ordered oxyCODONE 5 mg oral tablet 5 mg, 1, tablet, By Mouth, 5 times a day, X RAY EQUIPMENT MECHANIC checked., # 140 tablet, Refills 0, Tot. Refills 0, Maintenance, 01/16/21 10:52:00 EDT, Route to Pharmacy Electronically, [facility] [...] 12/28/20 12:50:00 EDT, Route to Pharmacy Electronically, [facility], Partial fill upon patient [...] 11/07/20 Active 1angioplasty 2000; 3 stents at [facility] 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 [...]
--- OUTSIDE RECORDS SUMMARY | 2023-04-11 15:22 | XMS_ITS | Continuity of Care Document ---
Author Name Unknown Organization [facility] Address [address] [place] [address]- Care Team Providers Care Decorating Kiln Operator Name Role Phone Luiz SALAS, Sonya Primary Care Physician [phone] Encounter [facility] [id number] Date(s): 05/25/20 - 05/26/[address] [address]- Discharge Disposition: A-D/C Home Attending Physician: Christian Pat MD Admitting Physician: Espinoza James MD Referring Physician: Espinoza James MD Allergies, Adverse Reactions, Alerts Substance Reaction [...] PO QD Start Date: 03/12/20 Status: Ordered lisinopril 20 mg oral tablet 20 mg, 1, tablet, By Mouth, Daily, # 90 tablet, Refills 0, Tot. Refills 0, Maintenance, 05/12/20 9:54:00 EST, Route to Pharmacy Electronically, [id number], Partial fill upon patient request if the prescription is for a schedule II opi... Start Date: 05/12/20 Stop Date: 08/10/20 Status: Ordered lisinopril 20 mg oral tablet 20 mg, Tablet, By Mouth, 05/26/20 9:00:00 EST Start Date: 05/26/20 Stop Date: 05/26/20 Status: Completed metFORMIN 1000 mg oral tablet 1 tablet = 1,000 mg, By Mouth, 2 times a day, # 60 tablet, 0 Refills, Maintenance, 03/15/20 12:57:00 EST, Tablet, [facility], Partial fill upon patient request, 178, cm, 03/15/20 11:15:00 EST, Height, 105, kg, 03/12/20 6:12:00 EST, Dry W... Start Date: 03/15/20 Status: Ordered ofloxacin 0.3% otic solution See Instructions, 5 drops Right ear once daily x 7 days, # 10 mL, Refills 0, Tot. Refills 0, Maintenance, 03/15/20 14:25:00 EST, Instructions Replace Required Details, Route to Pharmacy Electronically, [facility], Partial fill upon patie... Start Date: 03/15/20 Status: Ordered oxyCODONE 5 mg oral tablet See Instructions, 28 days one tablet 5 x day, # 140 tablet, Refills 0, Tot. Refills 0, Maintenance,05/19/20 10:09:00 EST, Instructions Replace Required Details, Route to Pharmacy Electronically, [facility] #[id number], Partial fill upon patient... Start Date: 05/19/20 Status: Ordered Probiotic Formula (Bacillus Coagulans) oral capsule 1 capsule, By Mouth, Daily, # 10 capsule, 0 Refills, Maintenance, 04/14/20 11:39:00 EST, Capsule, [facility] #[id number], Partial fill upon patient request if the prescription is for a schedule II opioid drug., 1 capsule By Mouth Daily, 178, cm,... Start Date: 04/14/20 Status: Ordered simvastatin 40 mg oral tablet 40 mg, 1, tablet, By Mouth, Daily at bedtime, # 30 tablet, Refills 0, Tot. Refills 0, Maintenance, 03/15/20 12:20:00 EST, Route to Pharmacy Electronically, [facility], Partial fill uponpatient request, 178, cm, 03/15/20 11:15:00 EST, He... Start Date: 03/15/20 Status: Ordered Problem List Condition Effective Dates Status Health Status Inform ant Benign hypertension(Confirmed) Active CAD (coronary artery disease)(Confirmed) 1 Active Chronic lower back pain(Confirmed) Active Diabetes mellitus(Confirmed) Active Encephalopathy(Confirmed) Active Dyslipidemia(Confirmed) Active 1angioplasty 2000; 3 stents at [facility] Vital Signs Most recent to oldest [Reference Range]: 1 2 3 Height 177.8 cm (05/26/20 10:50 AM) 177.8 cm (05/26/20 8:05 AM) 177.8 cm (05/26/20 4:47 AM) Weight 104.5 kg (05/25/20 3:30 PM) 104.5 kg (05/25/20 9:55 AM) 104.5 kg (05/25/20 6:44 AM) Oxygen Saturation [94-100 %] 95 % (05/26/20 10:50 AM) 99 % (05/26/20 8:05 AM) 97 % (05/26/20 4:47 AM) Pulse Rate [55-90 bpm] 94 bpm *H* (05/26/20 10:50 AM) 115 bpm *H* (05/26/20 8:05 AM) 97 bpm *H* (05/26/20 4:47 AM) Body Mass Index [18.5-24.99] 33.06 *>HHI* (05/25/20 3:30 PM) Blood Pressure [90-138/55-84 mm Hg] 158/81mm Hg *H* (05/26/20 10:50 AM) 108/61mm Hg (05/26/20 8:23 AM) 108/61mm Hg (05/26/20 8:05 AM) Respiratory Rate [16-30 br/min] 18 br/min (05/26/20 10:50 AM) 17 br/min (05/26/20 8:05 AM) 20 br/min (05/26/20 4:47 AM) Temperature [96.8-100.4 DegF] 98.2 DegF (05/26/20 10:50 AM) 98.4 DegF (05/26/20 8:05 AM) 98.5 DegF (05/26/20 4:47 AM) Mode of Delivery (Oxygen) Room air (05/26/20 10:50 AM) Room air (05/26/20 8:05 AM) Room air (05/26/20 4:47 AM) Blood pressure sites Arm, right (05/26/20 10:50 AM) Arm, left (05/26/20 8:05 AM) Arm, left (05/26/20 4:47 AM) Temperature Route Oral (05/26/20 10:50 AM) Oral (05/26/20 8:05 AM) Oral (05/26/20 4:47 AM) Dry Weight 104.5 kg (05/25/20 3:30 PM) Weight Obtained Via Patient/family state d (05/25/20 6:44 AM) Social History Social History Type Response Smoking Status Smoker, current stat us unknown; Type: Cigarettes; Other: 1/2-1 pk; entered on: 05/10/20 Sex
--- OUTSIDE RECORDS SUMMARY | 2023-04-11 15:22 | XMS_ITS | Continuity of Care Document ---
Author Name Unknown Organization [facility] Adult Address [address] [place] [address]- Care Team Providers Care Online Content Developer Name Role Phone Luiz SALAS, Sonya Primary Care Physician [phone] [facility]): 10/04/21 - 11/03/21 [facility] [address] [place] [address]- Allergies, Adverse Reactions, Alerts Substance Reaction Severity [...] bedtime, # 28 tablet, 0 Refills, [facility], 160, cm, 10/22/21 7:52:00 EDT, [...] tablet, Refills 1, Route to Pharmacy Electronically, [facility], 178, cm, 05/11/21 8:52:00 EST, Height, 81, [...] Refills 0, Tot. Refills 0, Maintenance, JAZMYN: maryime DX: M54.5, I63.9, 01/24/21 10:39:00 EDT, Supply Start Date: 01/24/21 Status: Ordered SEROquel 25 mg oral tablet 12.5 mg, 0.5, tablet, By Mouth, 3 times a day, PRN, # 6 tablet, Refills 0, Tot. Refills 0, Maintenance, Agitation, 10/22/21 16:00:00 EDT, Route to Pharmacy Electronically, [facility], Partial fill upon patient request if the prescription... Start Date: 10/22/21 Stop Date: 10/25/21 Status: Ordered Tums 500 mg oral tablet, chewable 500 mg, 1, tablet, Chew, 3 times a day, PRN, # 90 tablet, Refills 5, Tot. Refills 5, Maintenance, Dyspepsia, 05/02/21 10:38:00 EST, Route to Pharmacy Electronically, [facility]/pharmacy #[id number], Partial fill upon patient request if the [...] I(Confirmed) Active 1angioplasty 2000; 3 [facility] [...]
--- OUTSIDE RECORDS SUMMARY | 2023-04-11 15:22 | XMS_ITS | Continuity of Care Document ---
Author Name Unknown Organization [facility] Adult Address [address] [place] [address]- Care Team Providers Care Breaker Machine Operator Name Role Phone Luiz SALAS, Sonya Primary Care Physician [facility]): 07/17/21 - 08/16/21 [facility] Adult [address] [place] [address]- Allergies, Adverse Reactions, Alerts Substance Reaction Severity [...] 1 Refills, Maintenance, 07/25/21 17:16:00 EDT, Tablet, [facility]/pharmacy #[id number], Partial fill upon patient request if the prescription is for a schedule II opioid drug., 178, cm, 07/24/21 16:10:00 EDT... Start Date: 07/25/21 Stop Date: 09/23/21 Status: Ordered clopidogrel 75 mg oral tablet 1, tablet, By Mouth, Daily, # 90 tablet, Refills 1, Route to Pharmacy Electronically, [facility], 178, cm, 05/11/21 8:52:00 EST, Height, 81, [...] tablet, By Mouth, 5 times a day, PATIENT SERVICE REP checked., # 140 tablet, Refills 0, Tot. Refills 0, Maintenance, 07/25/21 17:17:00 EDT, [id number] Partial fillupon patient request if [...] 11/07/20 Active 1angioplasty 2000; 3 stents at [facility] 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 [...]
--- OUTSIDE RECORDS SUMMARY | 2023-04-11 15:22 | XMS_ITS | Continuity of Care Document ---
Author Name Unknown Organization [facility] Adult Address [address] [place] [address]- Care Team Providers Care Rose Grower Name Role Phone Luiz SALAS, Sonya Primary Care Physician [facility]s): 10/16/21 - 11/15/21 [facility] Adult [address] [place] [address]- Allergies, Adverse Reactions, Alerts Substance Reaction Severity [...] tablet, Refills 1, Route to Pharmacy Electronically, [facility], 178, cm, 05/11/21 8:52:00 EST, Height, 81, [...] 10/22/21 16:00:00 EDT, Route to Pharmacy Electronically, [facility], Partial fill upon patient request [...] 1angioplasty 2000; 3 stents at [facility] 2R frontal stroke secondary to [...]
--- OUTSIDE RECORDS SUMMARY | 2023-04-11 15:22 | XMS_ITS | Continuity of Care Document ---
Author Name Unknown Organization [facility] Adult Address [address] [place] [address]- Care Team Providers Care 911 Dispatcher Name Role Phone Luiz FIRESETTER, Sonya Primary Care Physician [facility] Date[facility]): 07/[facility]/22 - 08/02/22 [facility] Adult [address] [place] [address]- Allergies, Adverse Reactions, Alerts Substance Reaction Severity [...] Not Given Patient Refuses 1Result Comment: [facility]: [id number] Medications Aspirin Low Dose 81 mg oral [...] Maintenance, 07/31/22 13:23:00 EDT, [facility], 178, cm, 07/23/22 11:32:00 EDT, [...] Route to Pharmacy Electronically, [facility], 178, cm, 07/23/22 11:32:00 EDT, [...] 0 Refills, Maintenance, 08/01/22 11:17:00 EDT, [facility], 178, cm, 07/23/22 11:32:00 EDT, Height, [...] 13:25:00 EDT, Route to Pharmacy Electronically, [facility], 178, cm, 07/23/22 11:32:00 EDT, Height, [...] 1 Refills, Maintenance, 07/31/22 13:25:00 EDT, [facility], 178, cm, 07/23/22 11:32:00 EDT, Height, 72.5, kg, 03/08/22 4:29:00 EST, Dry Weight Start Date: 07/31/22 Status: Ordered nicotine 21 mg/24 hr transdermal film, extended release 1 patch, Topically, Daily, # 30 patch, 0 Refills, Maintenance, 03/14/22 14:53:00 EST, Patch, [facility], Partial fill upon patient [...] Dry Weight Start Date: 08/01/22 Status: Ordered sertraline 25 mg oral tablet 1 tablet, By Mouth, Daily, # 90 tablet, 1 Refills, Maintenance, 07/31/22 13:26:00 EDT, [facility], 178, cm, 07/23/22 11:32:00 [...] Confirmed Active 1angioplasty 2000; 3 stents at [facility] 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 [...] Care Team Personnel Name: Alicia Negron Position: [facility] RN Member Role: Primary Care Nurse Name: Hanna Dailey Position: [facility] RN Member Role: Primary Care Nurse Name: Gela Orosco RN Position: [facility] RN Member Role: Primary Care Nurse Name: Jessica Castrejon RN Position: [facility] RN Member Role: Primary Care Nurse Name: Hien Hidalgo RN Position: [facility] RN Member Role: Primary Care Nurse Name: Phuong Balderas RN Position: [facility] SN RN Member Role: Primary Care Nurse Name: Evelyn Mcnulty RN Position: [facility] RN Member Role: Primary Care Nurse Name: Sonya Dee NP Position: [facility] PCO Associate Professional Member Role: PCP Address: Address: [address] [place] [address], [address]rd [place] [address]- Name: Pola Reid RN Position: [facility] RN Supv Member Role: Primary Care Nurse Name: Betzy Beckford RN Position: [facility] RN Member Role: Primary Care Nurse Name: Karley Perry LPN Position: [facility] AMB Nurse Member Role: Primary Care Nurse Name: Zulyl Jara Position: [facility] RN Member Role: Primary Care Nurse Name: Yunior Bui RN Position: [facility] RN Member Role: Primary Care Nurse Name: Candace Liang RN Position: [facility] RN Member Role: Primary Care Nurse Name: Dedra Lezama Position: [facility] RN Member Role: Primary Care Nurse Name: Pat Fernando RN Position: [facility] RN Member Role: Primary Care Nurse Name: Randa Sagastume RN Position: [facility] RN Member Role: Primary Care Nurse Name: Mitra Patel Position: [facility] RN Member Role: Primary Care Nurse Name: Kacie Campbell RN Position: [facility] RN Member Role: Primary Care Nurse Name: Charito Vazquez RN Position: [facility] ED RN W/OE and Tasks Member Role: Primary Care Nurse Name: Dylan Bond RN Position: [facility] RN Member Role: Primary Care Nurse Name: Lydia Doherty RN Position: [facility] RN Member Role: Primary Care Nurse Name: Elie Davis RN Position: [facility] RN Member Role: Primary Care Nurse Name: Delfina Still RN Position: [facility] RN Member Role: Primary Care Nurse Name: Chandni Gibbons RN Position: [facility] RN Member Role: Primary Care Nurse Name: Rosio Gibbons RN Position: [facility] RN Member Role: Primary Care Nurse Name: Viry Zacarias RN Position: [facility] RN Member Role: Primary Care Nurse Name: Kerri Cunha RN Position: [facility] Label Stamper Member Role: Primary Care Nurse Name: Atiya Mcintyre RN Position: [facility] RN Member Role: Primary Care Nurse Care Team Related Persons Name: MYESHA IBETH Address: home [address] [place] [address] Name: IBETH CORRAL Address: home [address] [place] [address]
--- OUTSIDE RECORDS SUMMARY | 2023-04-11 15:22 | XMS_ITS | Continuity of Care Document ---
Author Name Unknown Organization [facility] Adult Address [address] [place] [address]- Care Team Providers Care Golf Player Assistant Name Role Phone Luiz SALAS, Sonya Primary Care Physician [phone] [facility]counter [facility] Date[facility]s): 01/25/21 - 02/24/21 [facility] Adult [address] [place] [address]- Allergies, Adverse Reactions, Alerts Substance Reaction Severity [...] Refills, Maintenance, 01/16/21 10:30:00 EDT, Tablet, [facility]acy #[id number], Partial fill upon patient request if the prescription is for a schedule II opioid drug., 178, cm, 12/29/20 5:31:00 EDT, Height, 1... Start Date: 01/16/21 Stop Date: 07/15/21 Status: Ordered aspirin 81 mg oral tablet, chewable 81 mg, 1, tablet, By Mouth, Daily, # 30 tablet, Refills 5, Tot. Refills 5, Maintenance, 01/16/21 10:30:00 EDT, Route to Pharmacy Electronically, [facility]/pharmacy #[id number], Partial fill upon patient request [...] 11 Refills, Maintenance,01/16/21 10:26:00 EDT, Capsule, [facility]/pharmacy #[id number], Partial fill upon patient request if the prescription is for a schedule II opioid drug., 178, cm, 0... Start Date: 01/16/21 Stop Date: 01/11/22 Status: Ordered clonazePAM 0.5 mg oral tablet 1 tablet = 0.5 mg, By Mouth, 3 times a day, # 90 tablet, 1 Refills, Maintenance, 01/16/21 10:52:00 EDT, Tablet, [facility]/pharmacy #[id number], Partial fill upon patient request [...] 10:29:00 EDT, Route to Pharmacy Electronically, [facility]/pharmacy #[id number], Partial fill upon patient request [...] 0 Refills, Maintenance, 03/15/20 12:57:00 EST, Tablet, [facility], Partial fill upon patient request, 178, cm, 03/15/20 11:15:00 EST, Height, 105, kg, 03/12/20 6:12:00 EST, Dry W... Start Date: 03/15/20 Status: Ordered MiraLax oral powder for reconstitution = 17 Gm, By Mouth, Daily, for 14 days, dissolve in water before taking, # 238 Gm, 0 Refills, Acute 02/27/21 13:29:00 EST, 02/13/21 13:29:00 EDT, REC Powder, [facility]/pharmacy #[id number], Partial fill upon patient request if the prescription is for a schedule II... Start Date: 02/13/21 Stop Date: 02/27/21 Status: Ordered oxyCODONE 5 mg oral tablet 5 mg, 1, tablet, By Mouth, 5 times a day, TRENCH PIPE LAYER checked., # 140 tablet, Refills 0, Tot. Refills 0, Maintenance, 02/24/21 15:51:00 EDT, Route to Pharmacy Electronically, [facility]/pharmacy #[id number], Partial fillupon patient request if [...] 12/28/20 12:50:00 EDT, Route to Pharmacy Electronically, [facility], Partial fill upon [...] 11/07/20 Active 1angioplasty 2000; [facility] [...]
--- OUTSIDE RECORDS SUMMARY | 2023-04-11 15:22 | XMS_ITS | Continuity of Care Document ---
Author Name Unknown Organization [facility] Adult Address [address] [place] [address]- Care Team Providers Care Energy Project Manager Name Role Phone Sonya Dee NP Primary Care Physician Encounter [facility] [id number] Date(s): 05/10/20 - 05/17/20 [facility] Adult [address] [place] [address]- Encounter Diagnosis CAD (coronary artery disease)(Discharge Diagnosis) - 05/10/20 Chronic lower back pain(Discharge Diagnosis) - 05/10/20 Dyslipidemia(Discharge Diagnosis) - 05/10/20 Benign hypertension(Discharge Diagnosis) - 05/10/20 Attending Physician: Not on Staff, Attending MD Referring Physician: Sonya Dee NP Allergies, Adverse Reactions, Alerts Substance Reaction Severity Status penicillin Active Medications clonazePAM 0.5 mg oral tablet TK 1 T PO TID PRN ANXIETY Start Date: 03/12/20 Status: Ordered escitalopram 10 mg oral tablet TK 1 T PO QD Start Date: 03/12/20 Status: Ordered lisinopril 20 mg oral tablet 20 mg, 1, tablet, By Mouth, Daily, # 90 tablet, Refills 0, Tot. Refills 0, Maintenance, 05/12/20 9:54:00 EST, Route to Pharmacy Electronically, [id number], Partial fill upon patient request if the prescription is for a schedule II opi... Start Date: 05/12/20 Stop Date: 08/10/20 Status: Ordered metFORMIN 1000 mg oral tablet 1 tablet = 1,000 mg, By Mouth, 2 times a day, # 60 tablet, 0 Refills, Maintenance, 03/15/20 12:57:00 EST, Tablet, [facility], Partial fill upon patient request, 178, cm, 03/15/20 11:15:00 EST, Height, 105, kg, 03/12/20 6:12:00 EST, Dry W... Start Date: 03/15/20 Status: Ordered ofloxacin 0.3% otic solution See Instructions, 5 drops Right ear once daily x 7 days, # 10 mL, Refills 0, Tot. Refills 0, Maintenance, 03/15/20 14:25:00 EST, Instructions Replace Required Details, Route to Pharmacy Electronically, [facility], Partial fill upon patie... Start Date: 03/15/20 Status: Ordered oxyCODONE 5 mg oral tablet See Instructions, 7 days one tablet 5 x day, # 35 tablet, Refills 0, Tot. Refills 0, Maintenance, 05/12/20 14:15:00 EST, Instructions Replace Required Details, Route to Pharmacy Electronically, [facility][id number], Partial fill upon patient r... Start Date: 05/12/20 Status: Ordered Probiotic Formula (Bacillus Coagulans) oral capsule 1 capsule, By Mouth, Daily, # 10 capsule, 0 Refills, Maintenance, 04/14/20 11:39:00 EST, Capsule, [facility] #[id number], Partial fill upon patient request if the prescription is for a schedule II opioid drug., 1 capsule By Mouth Daily, 178, cm,... Start Date: 04/14/20 Status: Ordered simvastatin 40 mg oral tablet 40 mg, 1, tablet, By Mouth, Daily at bedtime, # 30 tablet, Refills 0, Tot. Refills 0, Maintenance, 03/15/20 12:20:00 EST, Route to Pharmacy Electronically, [facility], Partial fill uponpatient request, 178, cm, 03/15/20 11:15:00 EST, He... Start Date: 03/15/20 Status: Ordered Problem List Condition Effective Dates Status Health Status Inform ant Benign hypertension(Confirmed) Active CAD (coronary artery disease)(Confirmed) 1 Active Chronic lower back pain(Confirmed) Active Diabetes mellitus(Confirmed) Active Dyslipidemia(Confirmed) Active 1angioplasty 2000; 3 stents at [facility] Diagnosis Diagnosis Type Effective Dates Health Status Clinical Service Informant CAD (coronary artery disease) Discharge Diagnosis 05/10/20 Chronic lower back pain Discharge Diagnosis 05/10/20 Dyslipidemia Discharge Diagnosis 05/10/20 Benign hypertension Discharge Diagnosis 05/10/20 Vital Signs Most recent to oldest [Reference Range]: 1 Height 178 cm (05/10/20 10:28 AM) Social History Social History Type Response Smoking Status Smoker, current stat us unknown; Type: Cigarettes; Other: 12-1 pk; entered on: 05/10/20 Sex
--- OUTSIDE RECORDS SUMMARY | 2023-04-11 15:22 | XMS_ITS | Continuity of Care Document ---
Author Name Unknown Organization [facility] Adult Address [address] [place] [address]- Care Team Providers Care Mail Sorting Supervisor Name Role Phone Luiz SALAS, Sonya Primary Care Physician [facility] Date[facility]s): 08/10/21 - 09/09/21 [facility] Adult [address] [place] [address]- Allergies, Adverse Reactions, Alerts Substance Reaction Severity [...] 1 Refills, Maintenance, 07/25/21 17:16:00 EDT, Tablet, [facility] #[id number], Partial fill upon patient request if the prescription is for a schedule II opioid drug., 178, cm, 07/24/21 16:10:00 EDT... Start Date: 07/25/21 Stop Date: 09/23/21 Status: Ordered clopidogrel 75 mg oral tablet 1, tablet, By Mouth, Daily, # 90 tablet, Refills 1, Route to Pharmacy Electronically, [id number], 178, cm, 05/11/21 8:52:00 EST, Height, 81, [...] tablet, By Mouth, 5 times a day, EXTRACTING MACHINE OPERATOR checked., # 140 tablet, Refills [...] 05/02/21 10:38:00 EST, Route to Pharmacy Electronically, [facility] [...]
--- OUTSIDE RECORDS SUMMARY | 2023-04-11 15:22 | XMS_ITS | Continuity of Care Document ---
Author Name Unknown Organization [facility] Adult Address [address] [place] [address]- Care Team Providers Care Spout Liner Name Role Phone Luiz PIT INSPECTOR, Sonya Primary Care Physician [facility] Date(s): 07/18/22 - 08/17/22 [facility] Adult [address] [place] [address]- Allergies, Adverse Reactions, Alerts Substance Reaction Severity [...] 05/26/20 Not Given Patient Refuses 1Result Comment: [facility]: [id number] Medications Aspirin Low Dose 81 mg oral [...] 07/31/22 13:23:00 EDT, [facility], 178, cm, 07/23/22 11:32:00 EDT, Height, [...] to Pharmacy Electronically, [facility], 178, cm, 07/23/22 11:32:00 EDT, Height, [...] 0 Refills, Maintenance, 08/01/22 11:17:00 EDT, [facility], 178, cm, 07/23/22 11:32:00 EDT, Height, [...] 13:25:00 EDT, Route to Pharmacy Electronically, [facility], 178, cm, 07/23/22 11:32:00 EDT, Height, [...] 1 Refills, Maintenance, 07/31/22 13:25:00 EDT, [facility], 178, cm, 07/23/22 11:32:00 EDT, Height, 72.5, kg, 03/08/22 4:29:00 EST, Dry Weight Start Date: 07/31/22 Status: Ordered nicotine 21 mg/24 hr transdermal film, extended release 1 patch, Topically, Daily, # 30 patch, 0 Refills, Maintenance, 03/14/22 14:53:00 EST, Patch, [facility], Partial fill upon patient [...] Confirmed Active [facility] 2000; [facility] [...] Primary Care Nurse Name: Hanna Dailey Position: [facility] RN Member Role: Primary Care Nurse Name: Gela Orosco RN Position: S RN Member Role: Primary Care Nurse Name: Jessica Castrejon RN Position: S RN Member Role: Primary Care Nurse Name: Hien Hidalgo RN Position: [facility] RN Member Role: Primary Care Nurse Name: Phuong Balderas RN Position: [facility] SN RN Member Role: Primary Care Nurse Name: Evelyn Mcnulty RN Position: S RN Member Role: Primary Care Nurse Name: Sonya Dee NP Position: [facility] PCO Associate Professional Member Role: PCP Address: Address: [address], [address]rd Floor [facility] [place] [address]- Name: Pola Reid RN Position: [facility] RN Supv Member Role: Primary Care Nurse Name: Betzy Beckford RN Position: [facility] RN Member Role: Primary Care Nurse Name: Karley Perry LPN Position: [facility] AMB Nurse Member Role: Primary Care Nurse Name: Zully Jara Position: [facility] RN Member Role: Primary Care Nurse Name: Yunior Bui RN Position: [facility] RN Member Role: Primary Care Nurse Name: Candace Liang RN Position: [facility] RN Member Role: Primary Care Nurse Name: Dedra Lezama Position: [facility] RN Member Role: Primary Care Nurse Name: Pat Fernando RN Position: [facility] RN Member Role: Primary Care Nurse Name: Randa Sagastume RN Position: [facility] RN Member Role: Primary Care Nurse Name: Mitra Patel Position: [facility] RN Member Role: Primary Care Nurse Name: Kacie Campbell RN Position: [facility] RN Member Role: Primary Care Nurse Name: Charito Vazquez RN Position: [facility] ED RN W/OE and Tasks Member Role: Primary Care Nurse Name: Dylan Bond RN Position: [facility] RN Member Role: Primary Care Nurse Name: Lydia Doherty RN Position: [facility] RN Member Role: Primary Care Nurse Name: Elie Davis RN Position: [facility] RN Member Role: Primary Care Nurse Name: Delfina Still RN Position: [facility] RN Member Role: Primary Care Nurse Name: Chandni Gibbons RN Position: [facility] RN Member Role: Primary Care Nurse Name: Rosio Gibbons RN Position: [facility] RN Member Role: Primary Care Nurse Name: Viry Zacarias RN Position: [facility] RN Member Role: Primary Care Nurse Name: Kerri Cunha RN Position: [facility] Hospital Poultry Trimmer Member Role: Primary Care Nurse Name: Atiya Mcintyre RN Position: [facility] RN Member Role: Primary Care Nurse Care Team Related Persons Name: IBETH BRUNNER Address: home [address] [place] [address] Name: IBETH CORRAL Address: home [address] [place] [address]
--- OUTSIDE RECORDS SUMMARY | 2023-04-11 15:22 | XMS_ITS | Continuity of Care Document ---
Author Name Unknown Organization [facility] ter Address [address] [place] [address]- Care Team Providers Care Manufacturing Leader Name Role Phone Luiz SALAS, Sonya Primary Care Physician [phone] Encounter [facility] Date(s): 09/06/20 - 09/06/[address] [address]- Discharge Disposition: A-D/C Walkout Attending Physician: Not [...] capsule, 11 Refills, Maintenance,08/19/20 5:59:00 EDT, Capsule, [id number], Partial fill upon patient request if the [...] 2 Refills, Maintenance, 10/07/20 11:44:00 EDT, Tablet, [id number], Partial fill upon patient request if the prescription is fora schedule II opioid drug., 177.8, cm, 08/08/20 11:... Start Date: 10/07/20 Stop Date: 01/05/21 Status: Ordered lisinopril 20 mg oral tablet 20 mg, 1, tablet, By Mouth, Daily, # 90 tablet, Refills 1, Tot. Refills 1, Maintenance, 08/19/20 10:00:00 EDT, Route to Pharmacy Electronically, [facility] #[id number], Partial fill upon patientrequest if the prescription is for a schedule II op... Start Date: 08/19/20 Stop Date: 02/15/21 Status: Ordered metFORMIN 1000 mg oral tablet 1 tablet = 1,000 mg, By Mouth, 2 times a day, # 60 tablet, 0 Refills, Maintenance, 03/15/20 12:57:00 EST, Tablet, [facility], Partial fill upon patient request, 178, cm, 03/15/20 11:15:00 EST, Height, 105, kg, 03/12/20 6:12:00 EST, Dry W... Start Date: 03/15/20 Status: Ordered ofloxacin 0.3% otic solution See Instructions, 5 drops Right ear once daily x 7 days, # 10 mL, Refills 0, Tot. Refills 0, Maintenance, 03/15/20 14:25:00 EST, Instructions Replace Required Details, Route to Pharmacy Electronically, [facility], Partial fill upon patie... Start Date: 03/15/20 Status: Ordered oxyCODONE 5 mg oral tablet 5 mg, 1, tablet, By Mouth, 5 times a day, DATA SCIENCES DIRECTOR checked., # 140 tablet, Refills 0, Tot. Refills 0, Maintenance, 09/05/20 14:37:00 EDT, Route to Pharmacy Electronically, [facility] #[id number], Partial fill upon patient request if the prescription i... Start Date: 09/05/20 Status: Ordered Probiotic Formula (Bacillus Coagulans) oral capsule 1 capsule, By Mouth, Daily, # 10 capsule, 0 Refills, Maintenance, 04/14/20 11:39:00 EST, Capsule, [facility] #[id number], Partial fill upon patient request if the prescription is for a schedule II opioid drug., 1 capsule By Mouth Daily, 178, cm,... Start Date: 04/14/20 Status: Ordered simvastatin 40 mg oral tablet 40 mg, 1, tablet, By Mouth, Daily at bedtime, # 30 tablet, Refills 5, Tot. Refills 5, Maintenance, 08/19/20 5:58:00 EDT, Route to Pharmacy Electronically, [facility] #[id number], Partial fill upon patient request, 177.8, cm, 08/08/20 11:27:00 EDT... Start Date: 08/19/20 Stop Date: 02/15/21 Status: Ordered Problem List Condition Effective Dates Status Health Status Inform ant Benign hypertension(Confirmed) Active CAD (coronary artery disease)(Confirmed) 1 Active Chronic lower back pain(Confirmed) Active Diabetes mellitus(Confirmed) Active Encephalopathy(Confirmed) Active Dyslipidemia(Confirmed) Active 1angioplasty 2000; 3 stents at [facility] Vital Signs Most recent to oldest [Reference Range]: 1 2 3 Oxygen Saturation [94-100 %] 98 % (09/06/20 5:47 AM) 100 % (09/06/20 2:31 AM) 95 % (09/06/20 12:23 AM) Pulse Rate [55-90 bpm] 90 bpm (09/06/20 5:47 AM) 98 bpm *H* (09/06/20 2:31 AM) 106 bpm *H* (09/06/20 12:23 AM) Blood Pressure [90-138/55-84 mm Hg] 107/55mm Hg (09/06/20 5:47 AM) 116/57mm Hg (09/06/20 2:31 AM) 115/67mm Hg (09/06/20 12:23 AM) Respiratory Rate [16-30 br/min] 16 br/min (09/06/20 5:47 AM) 18 br/min (09/06/20 2:31 AM) 18 br/min (09/06/20 12:23 AM) Temperature [96.8-100.4 DegF] 97.7 DegF (09/06/20 5:47 AM) 98.0 DegF (09/06/20 2:31 AM) 98.4 DegF (09/06/20 12:23 AM) Mode of Delivery (Oxygen) Room air (09/06/20 5:47 AM) Room air (09/06/20 2:31 AM) Room air (09/06/20 12:23 AM) Blood pressure sites Arm, left (09/06/20 5:47 AM) Arm, left (09/06/20 2:31 AM) Arm, left (09/06/20 12:23 AM) Temperature Route Oral (09/06/20 5:47 AM) Oral (09/06/20 2:31 AM) Oral (09/06/20 12:23 AM) Social History Social History Type Response Smoking Status Smoker, current stat us unknown; Type: Cigarettes; Other: 1/2-1 pk; entered on: 05/10/20 Sex
--- OUTSIDE RECORDS SUMMARY | 2023-04-11 15:22 | XMS_ITS | Continuity of Care Document ---
Author Name Unknown Organization [facility] Address [address] [facility], [address], [address] [place] [id number]- Care Team Providers Care Swahili Teacher Name Role Phone Sonya Dee NP Primary Care Physician [phone] [place] [facility] [place] 05/28/20 [facility] [address], [address], [address] [place] [id number] Allergies, Adverse Reactions, Alerts Substance Reaction Severity [...] 05/12/20 9:54:00 EST, Route to Pharmacy Electronically, [facility] #[id number], Partial fill upon patient request if the prescription is for a schedule II opi... Start Date: 05/12/20 Stop Date: 08/10/20 Status: Ordered metFORMIN 1000 mg oral tablet 1 tablet = 1,000 mg, By Mouth, 2 times a day, # 60 tablet, 0 Refills, Maintenance, 03/15/20 12:57:00 EST, Tablet, [facility], Partial fill upon patient request, 178, cm, 03/15/20 11:15:00 EST, Height, 105, kg, 03/12/20 6:12:00 EST, Dry W... Start Date: 03/15/20 Status: Ordered ofloxacin 0.3% otic solution See Instructions, 5 drops Right ear once daily x 7 days, # 10 mL, Refills 0, Tot. Refills 0, Maintenance, 03/15/20 14:25:00 EST, Instructions Replace Required Details, Route to Pharmacy Electronically, [facility], Partial fill upon patie... Start Date: 03/15/20 Status: Ordered oxyCODONE 5 mg oral tablet See Instructions, 28 days one tablet 5 x day, # 140 tablet, Refills 0, Tot. Refills 0, Maintenance,05/19/20 10:09:00 EST, Instructions Replace Required Details, Route to Pharmacy Electronically, [facility] #[id number], Partial fill upon patient... Start Date: 05/19/20 Status: Ordered Probiotic Formula (Bacillus Coagulans) oral capsule 1 capsule, By Mouth, Daily, # 10 capsule, 0 Refills, Maintenance, 04/14/20 11:39:00 EST, Capsule, [facility] #[id number], Partial fill upon patient request if the prescription is for a schedule II opioid drug., 1 capsule By Mouth Daily, 178, cm,... Start Date: 04/14/20 Status: Ordered simvastatin 40 mg oral tablet 40 mg, 1, tablet, By Mouth, Daily at bedtime, # 30 tablet, Refills 0, Tot. Refills 0, Maintenance, 03/15/20 12:20:00 EST, Route to Pharmacy Electronically, [facility], Partial fill uponpatient request, 178, cm, 03/15/20 11:15:00 EST, He... Start Date: 03/15/20 Status: Ordered Problem List Condition Effective Dates Status Health Status Inform ant Benign hypertension(Confirmed) Active CAD (coronary artery disease)(Confirmed) 1 Active Chronic lower back pain(Confirmed) Active Diabetes mellitus(Confirmed) Active Encephalopathy(Confirmed) Active Dyslipidemia(Confirmed) Active 1angioplasty 2000; 3 stents at [facility] Social History Social History Type Response Smoking Status Smoker, current stat us unknown; Type: Cigarettes; Other: 1/2-1 pk; entered on: 05/10/20 Sex
--- OUTSIDE RECORDS SUMMARY | 2023-04-11 15:22 | XMS_ITS | Continuity of Care Document ---
Author Name Unknown Organization [facility] Adult Address [address] [place] [address]- Care Team Providers Care Fiber Optic Assembler Name Role Phone Luiz SALAS, Sonya Primary Care Physician Encounter [facility] Date(s): 03/19/21 - 04/18/21 [facility] [address] [place] [address]- Allergies, Adverse Reactions, Alerts Substance Reaction Severity [...] Refills, Maintenance, 01/16/21 10:30:00 EDT, Tablet, [id number], Partial fill upon patient request if [...] capsule, 11 Refills, Maintenance,01/16/21 10:26:00 EDT, Capsule, [facility]/pharmacy #[id number], Partial fill upon patient request if the prescription is for a schedule II opioid drug., 178, cm, 0... Start Date: 01/16/21 Stop Date: 01/11/22 Status: Ordered clonazePAM 0.5 mg oral tablet 1 tablet = 0.5 mg, By Mouth, 3 times a day, # 90 tablet, 1 Refills, Maintenance, 01/16/21 10:52:00 EDT, Tablet, [facility]/pharmacy #[id number], Partial fill upon patient request if the prescription is for a schedule II opioid drug., 178, cm, 12/29/20 5:31:00 EDT,... Start Date: 01/16/21 Stop Date: 03/17/21 Status: Ordered glimepiride 4 mg oral tablet 1 tablet, By Mouth, 2 times a day, # 60 tablet, 2 Refills, Maintenance, 01/16/21 10:26:00 EDT, [facility]/pharmacy #[id number], 178, cm, 12/29/20 5:31:00 EDT, Height, 100, kg, 12/26/20 16:53:00 EDT, Dry Weight Start Date: 01/16/21 Status: Ordered lactulose 10 gm/15 ml oral syrup 15 mL, By Mouth, Daily, PRN NEEDED FOR CONSTIPATION, # 473 mL, 0 Refills, [facility] [id number], 30, TAKE 15 ML BY MOUTH DAILY NEEDED FOR CONSTIPATION, 178, cm, 03/13/21 13:09:00 EST, Height, 100, kg, 12/26/20 16:53:00 EDT, Dry Weight Start Date: 03/27/21 Status: Ordered lisinopril 10 mg oral tablet 10 mg, 1, tablet, By Mouth, Daily, # 30 tablet, Refills 5, Tot. Refills 5, Maintenance, 01/16/21 10:29:00 EDT, Route to Pharmacy Electronically, [facility]/pharmacy #[id number], [...] 03/15/20 12:57:00 EST, Tablet, [facility], Partial fill upon patient request, 178, cm, 03/15/20 11:15:00 EST, Height, 105, kg, 03/12/20 6:12:00 EST, Dry W... Start Date: 03/15/20 Status: Ordered oxyCODONE 5 mg oral tablet 5 mg, 1, tablet, By Mouth, 5 times a day, CIVIL ATTORNEY checked., # 140 tablet, Refills 0, Tot. Refills 0, Maintenance, 03/31/21 13:33:00 EST, Route to Pharmacy Electronically, [facility]/pharmacy #[id number], Partial fillupon patient request if [...]
--- OUTSIDE RECORDS SUMMARY | 2023-04-11 15:22 | XMS_ITS | Continuity of Care Document ---
Author Name Unknown Organization [facility] Adult Address [address] [place] [address]- Care Team Providers Care Dandy Tender Name Role Phone Sonya Dee NP Primary Care Physician [phone] Encounter [facility] [place](s): 06/15/21 - 06/22/21 [facility] [address] [place] [phone]- Attending Physician: Not on Staff, Attending MD [...] 07/15/21 10:30:00 EDT, 01/16/21 10:30:00 EDT, Tablet, [facility] #[id number], Partial fill upon patient request if the prescription is for a schedule II opioid drug., 178, cm... Start Date: 01/16/21 Stop Date: 07/15/21 Status: Ordered atorvastatin 40 mg oral tablet 1 tablet = 40 mg, By Mouth, Daily at bedtime, # 30 tablet, 5 Refills, Maintenance, 05/02/21 10:38:00 EST, Tablet, [facility] #[id number], Partial fill upon patient request if the prescription is for a schedule II opioid drug., 178, cm, 04/27/21 4:54:00 ES... Start Date: 05/02/21 Stop Date: 10/29/21 Status: Ordered cholecalciferol 50,000 intl units oral capsule 1 capsule = 50,000 International_Units, By Mouth, Every week, # 5 capsule, 11 Refills, Maintenance,05/02/21 10:36:00 EST, Capsule, [id number], Partial fill upon patient request if the prescription is for a schedule II opioid drug., 178, cm, 0... Start Date: 05/02/21 Stop Date: 04/27/22 Status: Ordered clonazePAM 0.5 mg oral tablet 1 tablet = 0.5 mg, By Mouth, 3 times a day, # 90 tablet, 1 Refills, Maintenance, 05/02/21 12:49:00 EST, Tablet, [facility] #[id number], Partial fill upon patient request if the prescription is for a schedule II opioid drug., 178, cm, 04/27/21 4:54:00 EST,... Start Date: 05/02/21 Stop Date: 07/01/21 Status: Ordered clopidogrel 75 mg oral tablet 1, tablet, By Mouth, Daily, # 90 tablet, Refills 1, Route to Pharmacy Electronically, [id number], 178, cm, 05/11/21 8:52:00 EST, Height, 81, [...] FOR CONSTIPATION, # 473 mL, 0 Refills, [facility] [id number], 30, TAKE 15 ML BY MOUTH DAILY [...] 10:29:00 EDT, Route to Pharmacy Electronically, [facility] #[id number], Partial fill upon patient request if the prescription... Start Date: 01/16/21 Stop Date: 07/15/21 Status: Ordered magnesium oxide 400 mg oral tablet 1 tablet = 400 mg, By Mouth, Daily, for 30 days, # 30 tablet, 5 Refills, Acute 10/29/21 10:39:00 EDT, 05/02/21 10:39:00 EST, Tablet, [facility] #[id number], Partial fill upon patient request if the prescription is for a schedule II opioid drug., 178, cm,... Start Date: 05/02/21 Stop Date: 10/29/21 Status: Ordered metFORMIN 1000 mg oral tablet 1 tablet = 1,000 mg, By Mouth, 2 times a day, # 60 tablet, 5 Refills, Maintenance, 05/02/21 10:36:00 EST, Tablet, [facility] #[id number], Partial fill upon patient request, 178, cm, 04/27/21 4:54:00 EST,Height, 84.3, kg, 04/23/21 2:54:00 EST, Dry Weight Start Date: 05/02/21 Status: Ordered oxyCODONE 5 mg oral tablet 5 mg, 1, tablet, By Mouth, 5 times a day, HOME APPLIANCES MECHANIC checked., # 140 tablet, Refills 0, Tot. Refills 0, Maintenance, 06/05/21 16:38:00 EST, Route to Pharmacy Electronically, [facility] #[id number], Partial fillupon patient request if [...] 10:38:00 EST, Route to Pharmacy Electronically, [facility] #[id number], Partial fill upon patient request if the prescription is for a sc... 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 S/P Elective Coiling of Unruptured Aneurysm with Subsequent Left-Sided Weakness: Acute nonhemorrhagic infarct in the RIGHT posterior frontal lobe: Vital Signs Most recent to oldest [Reference Range]: 1 Height 178 cm (06/15/21 9:35 AM) Weight 82.3 kg (06/15/21 9:35 AM) Oxygen Saturation [94-100 %] 98 % (06/15/21 9:35 AM) Pulse Rate [55-90 bpm] 65 bpm (06/15/21 9:35 AM) Body Mass Index [18.5-24.99] 25.98 *H* (06/15/21 9:35 AM) Blood Pressure [90-138/55-84 mm Hg] 126/ 54mm Hg (06/15/21 9:35 AM) Temperature [96.8-100.4 DegF] 97.9 DegF (06/15/21 9:35 AM) Mode of Delivery (Oxygen) Room air (06/15/21 9:35 AM) Blood pressure sites Arm, left (06/15/21 9:35 AM) Temperature Route Oral (06/15/21 9:35 AM) Weight Obtained Via Standing scale (06/15/21 9:35 AM) Social History Social History Type Response Smoking Status Smoker, current stat us unknown; Type: Cigarettes; Other: 1/2-1 pk; entered on: 05/10/20 Sex
--- OUTSIDE RECORDS SUMMARY | 2023-04-11 15:22 | XMS_ITS | Continuity of Care Document ---
Author Name Unknown Organization [facility] Adult Address [address] [place] [address]- Care Team Providers Care Wood Type Cutter Name Role Phone Luiz SALAS, Sonya Primary Care Physician [place] [facility] [place]19[place]20 - 09/18/20 [facility] [address] [place] [id number]- Allergies, Adverse Reactions, Alerts Substance Reaction Severity [...] capsule, 11 Refills, Maintenance,08/19/20 5:59:00 EDT, Capsule, [facility] #[id number], Partial fill upon patient request if the [...] 2 Refills, Maintenance, 10/07/20 11:44:00 EDT, Tablet, [facility] #[id number], Partial fill upon patient request if the prescription is fora schedule II opioid drug., 177.8, cm, 08/08/20 11:... Start Date: 10/07/20 Stop Date: 01/05/21 Status: Ordered lisinopril 20 mg oral tablet 20 mg, 1, tablet, By Mouth, Daily, # 90 tablet, Refills 1, Tot. Refills 1, Maintenance, 08/19/20 10:00:00 EDT, Route to Pharmacy Electronically, [facility] #[id number], Partial fill upon patientrequest if the prescription is for a schedule II op... Start Date: 08/19/20 Stop Date: 02/15/21 Status: Ordered metFORMIN 1000 mg oral tablet 1 tablet = 1,000 mg, By Mouth, 2 times a day, # 60 tablet, 0 Refills, Maintenance, 03/15/20 12:57:00 EST, Tablet, [facility], Partial fill upon patient request, 178, cm, 03/15/20 11:15:00 EST, Height, 105, kg, 03/12/20 6:12:00 EST, Dry W... Start Date: 03/15/20 Status: Ordered ofloxacin 0.3% otic solution See Instructions, 5 drops Right ear once daily x 7 days, # 10 mL, Refills 0, Tot. Refills 0, Maintenance, 03/15/20 14:25:00 EST, Instructions Replace Required Details, Route to Pharmacy Electronically, [facility], Partial fill upon patie... Start Date: 03/15/20 Status: Ordered oxyCODONE 5 mg oral tablet 5 mg, 1, tablet, By Mouth, 5 times a day, DATA WAREHOUSE ADMINISTRATOR checked., # 140 tablet, Refills 0, Tot. Refills 0, Maintenance, 09/05/20 14:37:00 EDT, Route to Pharmacy Electronically, [facility] #[id number], Partial fill upon patient request if the prescription i... Start Date: 09/05/20 Status: Ordered Probiotic Formula (Bacillus Coagulans) oral capsule 1 capsule, By Mouth, Daily, # 10 capsule, 0 Refills, Maintenance, 04/14/20 11:39:00 EST, Capsule, [facility] #[id number], Partial fill upon patient request if the prescription is for a schedule II opioid drug., 1 capsule By Mouth Daily, 178, cm,... Start Date: 04/14/20 Status: Ordered simvastatin 40 mg oral tablet 40 mg, 1, tablet, By Mouth, Daily at bedtime, # 30 tablet, Refills 5, Tot. Refills 5, Maintenance, 08/19/20 5:58:00 EDT, Route to Pharmacy Electronically, [facility] #[id number], Partial fill upon patient request, 177.8, cm, 08/08/20 11:27:00 EDT... Start Date: 08/19/20 Stop Date: 02/15/21 Status: Ordered Problem List Condition Effective Dates Status Health Status Inform ant Benign hypertension(Confirmed) Active CAD (coronary artery disease)(Confirmed) 1 Active Chronic lower back pain(Confirmed) Active Diabetes mellitus(Confirmed) Active Encephalopathy(Confirmed) Active Dyslipidemia(Confirmed) Active 1angioplasty 2000; 3 stents at [facility] Social History Social History Type Response Smoking Status Smoker, current stat us unknown; Type: Cigarettes; Other: 1/2-1 pk; entered on: 05/10/20 Sex
--- OUTSIDE RECORDS SUMMARY | 2023-04-11 15:22 | XMS_ITS | Continuity of Care Document ---
Author Name Unknown Organization [facility] Adult Address [address] [place] [address]- Care Team Providers Care Nut Roaster Helper Name Role Phone Luiz SALAS, Sonya Primary Care Physician [place] [facility] [place] [facility] [address] [place] [phone]- Allergies, Adverse Reactions, Alerts Substance Reaction Severity [...] 05/02/21 10:38:00 EST, Route to Pharmacy Electronically, [facility] #[id number], Partial fill upon patient request if the [...] 11/07/20 Active 1angioplasty 2000; 3 stents at [facility] 2R frontal stroke secondary to [...] Team Personnel Name: Sonya Dee NP Address: [address] [place] [address], [address] [place], [place] [address]
--- OUTSIDE RECORDS SUMMARY | 2023-04-11 15:22 | XMS_ITS | Continuity of Care Document ---
Author Name Unknown Organization [facility] ter Address [address] [place] [id number] Care Team Providers Care Supervisor [employer] Name Role Phone Luiz SALAS, Sonya Primary Care Physician [place] [facility] [place]): [place]25[place]22 - 11/29/[address] [address]- Encounter Diagnosis Multiple falls(Final) - 11/25/22 Hypernatremia(Final) - 11/25/22 Syncope(Final) - 11/25/22 Discharge Disposition: A-Transfer SNF Attending Physician: Charanjit SAVAGE, Cesia Admitting Physician: Wilfredo Urias MD Referring Physician: [...] Not Given Patient Refuses 1Result Comment: [facility] [place]: [id number] Medications albuterol-ipratropium 3 mg-0.5 mg/3 ml inhalation [...] EDT, Height, 79.5, kg, 10/20/22 13:34:00 EDT, Anahi.. Start Date: 11/23/22 Stop Date: 11/18/23 Status: [...] EDT, Height, 79.5, kg, 10/20/22 13:34:00 EDT, .. Start Date: 11/23/22 Status: Ordered glimepiride 4 [...] opioid drug. 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 S/P Elective Coiling of Unruptured Aneurysm with Subsequent Left-Sided Weakness: Acute nonhemorrhagic infarct in the RIGHT posterior frontal lobe: Results Orders for Microbiology Reports Name Date Blood Culture 11/25/22 Blood Culture #2 11/25/22 Microbiology Reports TEST:Blood Culture STATUS:Unauthenticated BODY SITE: SOURCE:Blood COLLECTED DATE/TIME:11/25/22 7:15 PM Blood Culture SPECIMEN DESCRIPTION : BLOOD LW SPECIAL REQUESTS : NONE CULTURE : NO GROWTH 4 DAYS REPORT STATUS : PRELIMINARY REPORT TEST:Blood Culture, Second Order STATUS:Unauthenticated BODY SITE: SOURCE:Blood COLLECTED DATE/TIME:11/25/22 7:15 PM Blood Culture, Second Order SPECIMEN DESCRIPTION : BLOOD R ARM SPECIAL REQUESTS : NONE CULTURE : NO GROWTH 4 DAYS REPORT STATUS : PRELIMINARY REPORT Radiology Reports * Exam Date Time Procedure Performing Provider Status 11/25/22 7:[address] Cervical Spine W/O Contrast Jacinda Tristan; Auth (Verified) Notes: (CT Cervical Spine W/O Contrast) Reason For Exam: Neck trauma, dangerous injury mechanism;Other: RESULT: CT Cervical Spine W/O Contrast CT Head/Brain W/O Contrast, CT Cervical Spine W/O Contrast INDICATION: Hx of Present Illness: i had multiple falls today; Reason: Other:; Brain mass or lesion; Clinical Question(s): Hematoma TECHNIQUE: Noncontrast head CT using axial technique was reconstructed in axial and coronal planes.Noncontrast spiral CT through the cervical spine was formatted in 3 planes. Automatic tube modulation was used for the cervical spine and iterative dose reconstruction was used for both the head and cervical spine to optimize scan parameters and image quality. CTDIvol Body: 12.30 mGy, DLP Body: 368 mGy*cm. CTDIvol Head: 40.10 mGy, DLP Head: 671 mGy*cm. 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 BRAIN AND EXTRA-AXIAL SPACES: No parenchymal hemorrhage, midline shift, or mass effect. Paulino-white matter differentiation is wellpreserved. No acute infarct. Area of encephalomalacia within the right frontal lobe. Evidence of previous aneurysm coiling within the right MCA. Old bilateral basal ganglia lacunar infarcts. Ventricles, sulci, and basilar cisterns are normal. Mild low-density white matter changes. No subarachnoid hemorrhage. No subdural or epidural collection. CALVARIUM, SKULL BASE, AND SOFT TISSUES: No fractures or suspicious bony lesions. Small retention cyst within the right maxillary sinus. There is mild mucoperiosteal thickening within the ethmoid air cells. Visualized orbits and globes are intact. The extracranial soft tissues are unremarkable. CERVICAL SPINE: No fracture. No acute osseous abnormalities. Normal alignment. No locked or perched facet. Disc degenerative disease throughout the cervical spine with facet degenerative changes. OTHER BONES: No acute abnormality. CERVICAL SOFT TISSUES AND LUNG APICES: Normal soft tissues. Visualized lung apices are clear. IMPRESSION: No acute intracranial abnormality. Old left frontal lobe infarct. Old bilateral basal ganglia lacunar infarcts. Aneurysm clipping within the right MCA. No cervical spine fracture or subluxation. Discogenic degenerative disease throughout cervical spine. WSN: [id number] Ordering Physician: Chandni Aguilera Dictated By: Michelle Valverde MD Dictated Date/Time: 11/25/22 7:41 pm Reviewed By: Michelle Valverde MD Signed By: Michelle Valverde MD Signed Date/Time: 11/25/22 7:41 pm Transcribed By: ANDREAS Transcribed Date/Time: 11/25/22 7:36 pm * Exam Date Time Procedure Performing Provider Status 11/25/22 7:[address] Head/Brain W/O Contrast Marcy Tristan ra; Auth (Verified) Notes: (CT Head/Brain W/O Contrast) Reason For Exam: Brain mass or lesion;Other: RESULT: CT Head/Brain W/O Contrast CT Head/Brain W/O Contrast, CT Cervical Spine W/O Contrast INDICATION: Hx of Present Illness: i had multiple falls today; Reason: Other:; Brain mass or lesion; Clinical Question(s): Hematoma TECHNIQUE: Noncontrast head CT using axial technique was reconstructed in axial and coronal planes.Noncontrast spiral CT through the cervical spine was formatted in 3 planes. Automatic tube modulation was used for the cervical spine and iterative dose reconstruction was used for both the head and cervical spine to optimize scan parameters and image quality. CTDIvol Body: 12.30 mGy, DLP Body: 368 mGy*cm. CTDIvol Head: 40.10 mGy, DLP Head: 671 mGy*cm. 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 BRAIN AND EXTRA-AXIAL SPACES: No parenchymal hemorrhage, midline shift, or mass effect. Paulino-white matter differentiation is wellpreserved. No acute infarct. Area of encephalomalacia within the right frontal lobe. Evidence of previous aneurysm coiling within the right MCA. Old bilateral basal ganglia lacunar infarcts. Ventricles, sulci, and basilar cisterns are normal. Mild low-density white matter changes. No subarachnoid hemorrhage. No subdural or epidural collection. CALVARIUM, SKULL BASE, AND SOFT TISSUES: No fractures or suspicious bony lesions. Small retention cyst within the right maxillary sinus. There is mild mucoperiosteal thickening within the ethmoid air cells. Visualized orbits and globes are intact. The extracranial soft tissues are unremarkable. CERVICAL SPINE: No fracture. No acute osseous abnormalities. Normal alignment. No locked or perched facet. Disc degenerative disease throughout the cervical spine with facet degenerative changes. OTHER BONES: No acute abnormality. CERVICAL SOFT TISSUES AND LUNG APICES: Normal soft tissues. Visualized lung apices are clear. IMPRESSION: No acute intracranial abnormality. Old left frontal lobe infarct. Old bilateral basal ganglia lacunar infarcts. Aneurysm clipping within the right MCA. No cervical spine fracture or subluxation. Discogenic degenerative disease throughout cervical spine. WSN: [id number] Ordering Physician: Chandni Aguilera Dictated By: Michelle Valverde MD Dictated Date/Time: 11/25/22 7:41 pm Reviewed By: Michelle Valverde MD Signed By: Michelle Valverde MD Signed Date/Time: 11/25/22 7:41 pm Transcribed By: ANDREAS Transcribed Date/Time: 11/25/22 7:36 pm * Exam Date Time Procedure Performing Provider Status 11/25/22 7:14 PM Chest 2 Views Frontal and Lat Diane Begum (Verified) Notes: (Chest 2 Views Frontal and Lat) Reason For Exam: Shortness of Breath, Fever;Other: RESULT: Chest 2 Views Frontal and Lat Examination: Chest performed on 11/25/2022. History: Falls. Shortness of breath. Findings: Frontal and lateral views of the chest are compared to a prior study dated 10/19/2022. The cardiac and mediastinal silhouettes are within normal limits. The lungs are clear. Osteophyte formation within the thoracic spine is noted. Impression: There is no acute cardiopulmonary disease. WSN: [id number] Ordering Physician: Chandni Aguilera Dictated By: Jessica Perales MD Dictated Date/Time: 11/25/22 7:18 pm Reviewed By: Jessica Perales MD Signed By: Jessica Perales MD Signed Date/Time: 11/25/22 7:18 pm Transcribed By: ANDREAS Transcribed Date/Time: 11/25/22 7:17 pm Vital Signs Most recent to oldest [Reference Range]: 1 2 3 Height 177.8 cm (11/29/22 12:30 PM) 177.8 cm (11/28/22 4:28 PM) 177.8 cm (11/28/22 12:15 PM) Weight 71.8 kg (11/26/22 6:05 PM) 71.8 kg (11/26/22 3:00 PM) Oxygen Saturation [94-100 %] 100 % (11/29/22 12:30 PM) 97 % (11/29/22 7:00 AM) 100 % (11/29/22 3:00 AM) Pulse Rate [55-90 bpm] 56 bpm (11/29/22 12:30 PM) 60 bpm (11/29/22 7:00 AM) 58 bpm (11/29/22 3:00 AM) Body Mass Index [18.5-24.99 kg/m2] 22.71 kg/m2 (11/26/22 6:05 PM) Blood Pressure [90-138/55-84 mm Hg] 159/70mm Hg *H* (11/29/22 12:30 PM) 158/71mm Hg *H* (11/29/22 9:39 AM) 158/71mm Hg *H* (11/29/22 7:00 AM) Respiratory Rate [16-30 br/min] 18 br/min (11/29/22 12:30 PM) 17 br/min (11/29/22 7:00 AM) 18 br/min (11/29/22 3:00 AM) Temperature [96.8-100.4 DegF] 98.7 DegF (11/29/22 12:30 PM) 98.5 DegF (11/29/22 7:00 AM) 98.3 DegF (11/29/22 3:00 AM) Mode of Delivery (Oxygen) Room air (11/29/22 12:30 PM) Room air (11/29/22 7:00 AM) Room air (11/29/22 3:00 AM) Blood pressure sites Arm, left (11/29/22 12:30 PM) Arm, right (11/29/22 7:00 AM) Arm, right (11/29/22 3:00 AM) Temperature Route Oral (11/29/22 12:30 PM) Oral (11/29/22 7:00 AM) Oral (11/29/22 3:00 AM) Dry Weight 71.8 kg (11/26/22 6:05 PM) Social History Social History Type Response Smoking Status 10 or more cigarette s (1/2 pack or more)/day in last 30 days; Interested in cessation: No; Patient wants NRT during admission Yes; Tobacco use times per day: 1PPD; Number of years: 53; Total pack years: 53; Started at age: 13; entered on: 03/08/22 Sex Admission evaluation note * Virgil SAVAGE, Tammy Cisneros: MODIFY Margot SAVAGE, Shai: PERFORM, MODIFY Margot SAVAGE, Shai: MODIFY, MODIFY Margot SAVAGE, Shai: MODIFY, MODIFY Margot SAVAGE, Shai: MODIFY, MODIFY Margot SAVAGE, Shai: MODIFY, MODIFY Margot SAVAGE, Shia: MODIFY, MODIFY Margot SAVAGE, Shai: MODIFY, MODIFY Margot SAVAGE, Shai: MODIFY, MODIFY Margot SAVAGE, Shai: MODIFY, MODIFY Margot SAVAGE, Shai: MODIFY, MODIFY Margot SAVAGE, Shai: MODIFY, MODIFY Margot SAVAGE, Shai: MODIFY, MODIFY Margot SAVAGE, Shai: MODIFY, MODIFY Margot SAVAGE, Shai: MODIFY, MODIFY Margot SAVAGE, Shai: MODIFY Event Display: Admission Note Authored Date: Patient: ??JOHN SHERMAN ? Age:??67 Years?Sex:??Male?:??1955?? Chief Complaint/Reason for Consultation Multiple falls History of Present Illness 67-year-old male with past medical history of multiple previous CVAs currently on clopidogrel, COPD, CAD with previous IA, vascular dementia, diabetes with peripheral neuropathy, hypertension??who was??brought to the ED via EMS for multiple falls. Patient says he recalls 2 falls today.??He denies that he hit his head during any of these falls, but??states that one fall was on his bed and he fell asleep after.?? Patient denies acute chest pain,palpation,??shortness of breath, dizziness, nausea, vomiting, diarrhea, leg pain or swelling. ?? Patient reports falling on nearly daily basis and having difficulty getting back on his feet. He has baseline gait instability from prior CVAs and??uses a cane for ambulatory support. He has had recent hospitalizations for falls with no work-up indicating syncopal etiology. He was discharged from rehab 3 days ago and reports being mostly in bed during the inpatient stay. He has felt weak and tired since being home. Patient also endorses chronic dysuria, urinary frequency, and an episode of urinary incontinence. He also notes that he has not had a bowel movement in 2-3 days. Patient lives at home with his but does not have any other assistance. ?? In the ED, patient had cardiac workup with??EKG and troponin, both unremarkable for??ACS,??and UTI workup with no systemic symptoms and unremarkable UA. He was found to be hypernatremic and was given fluids and encouraged PO intake. Patient admitted for further workup of frequent falls and hypernatremic correction. ?? Review of Systems All positive findings in review of systems included in HPI. Review is otherwise negative. Objective Vital Signs?? Temperature: 99.3 DegF (11/25/22 22:12:00) Temperature Route: Oral (11/25/22 22:12:00) Pulse Rate: 66 bpm (11/25/22 22:12:00) Respiratory Rate: 16 br/min (11/25/22 22:12:00) Systolic Blood Pressure:??139 mm Hg??High (11/25/22 22:12:00) Diastolic Blood Pressure: 79 mm Hg (11/25/22 22:12:00) Blood pressure sites: Arm, right (11/25/22 22:12:00) Mean Arterial Pressure: 99 mm Hg (11/25/22 22:12:00) Pulse Pressure: 60 mm Hg (11/25/22 22:12:00) Oxygen Saturation: 99 % (11/25/22 22:12:00) Mode of Delivery (Oxygen): Room air (11/25/22 22:12:00) ? Physical Exam Constitutional: Alert, in no distress. Mental Status: Oriented to person, place and time. Head: Normocephalic. Multiple healed abrasions. Ear, Nose and Throat: Dry mucus membrane Respiratory: inspiratory and expiratory wheezing Cardiovascular: Soft heart sounds. I/ systolic murmur. Gastrointestinal: Abdomen diffusely tender Genitourinary: No CVA tenderness. Patient urinated himself in bed. Neurologic: Cranial nerves II-XII grossly intact. No focal neurological deficits. Flexor plantar response. Full strength bilaterally for all upper and lower extremity motions. Sensation intact bilaterally. Skin: multiple abrasions and ecchymoses on hands and arms Musculoskeletal: No cyanosis or clubbing. No gross deformities. Normal range of motion. Psychiatric: Normal mood and affect Assessment/Plan 67-year-old male with past medical history of multiple previous CVAs currently on clopidogrel, COPD, CAD with previous IA, vascular dementia, diabetes with peripheral neuropathy, hypertension??who was??brought to the ED via EMS for multiple falls. He was found to be hypernatremic and admitted for syncope r/o. ?? Falls - mechanical vs syncopal He has long-term use of a cane and baseline impaired balance and mobility from previous CVAs. Recent long-term hospital admission and rehab may have contributed??to deconditioning. High likelihood ofmechanical fall with other contributors including CLEOPATRA with no compliance of home CPAP, history of B12 deficiency and continued food scarcity (relies inconsistently on meals on wheels), hypernatremia/dehydration, limited cardiac and respiratory resilience due to comorbidities. ?? Syncopal etiology of falls also possible with cardiac history. New bigeminy compared to last EKG but low probability of symptomatic arrhythmia.??No updated echo on record. ?? Plan: - Consult PT/OT - Pending B12 - Check??orthostatic BP - Consider updated echo ? Hypernatremia Approximately 3.7 L free water deficit.??Patient had 2 L??normal saline in the ED and significant PO water and juice intake. Patient not evidently symptomatic. ?? Plan: - Pending repeat BMP - May??require IV??repletion of free water if Na not correcting ? Dysuria Urinary Incontinence Patient not prone to UTIs. Afebrile and no other symptoms or labs to suggest systemic infection. UAunremarkable. Patient incontinent in ED. ?? Plan: - Patient has prior Urology referral -??Reassess tamsulosin and balancing history of urinary retention - Consider bladder scan ? CLEOPATRA Does not use home cpap. Patient feeling more tired than usual. ?? Plan: - encourage home CPAP use ?Constipation ??Last BM 2 days ago. BM 2-3 times/week. No recent changes. ?? Plan: - bowel regimen ?? History of CVA?? -Continue aspirin, Plavix, statin ? Diabetes -On metformin and glimepiride outpatient. We will use sliding scale while inpatient ? Neuropathy -Continue pregabalin ? Anxiety and depression -Continue sertraline ? GERD -Continue pantoprazole ? Hypertension: -Continue lisinopril ? Quality??metrics?? Diet: cardiac diet? VTE ppx: enoxaparin? Code Status:??full? Patient discussed with attending, Dr. Herman ?? Shai Frost MD Internal Medicine, PGY-1 Pager # [phone] ? Attending Attestation: I have seen and evaluated this patient???11/26/2022 in ED B pod hallway after??he presented for evaluation with reports of altered mental status and multiple falls after transitioning back from rehab to home on Saturday??and was found to have dehydration with hypernatremia. ??The falls were likely multifactorial in the setting of??generalized weakness with multiple prior strokes, deconditioning, recent transition to home as well as dehydration??and hypernatremia.?Patient said he was feeling better overnight??and his sodium did trend downwards from 151-->145 over 10-hour interval.??He was discharged exactly one month ago after presenting with falls and was at rehab for 4 weeks exactly before going home and now 2 days later is here. ??I have discussed the case and its management with the resident and agree with the findings and plan as documented in the resident??s note. ?? [] ? Histories Allergies Allergies ?(Active and Proposed Allergies [...] Cancer; Heart attack ? Medications Home Medications Albuterol/Ipratropium (albuterol-ipratropium 3 mg-0.5 mg/3 ml [...] Medical Equipment (depends xl)?See Instructions?DX: incontinence N39.46 Durable Medical Equipment (Freestyle Lite Monitor)?See Instructions?Use to check blood sugar three times a day DX: Diabetes Mellitus E11.9 Durable Medical Equipment (Freestyle Lite Test Strips)?See Instructions?Use to check blood sugar three times a dayDX: Diabetes Mellitus E11.9 Durable Medical Equipment (Freestyle Lite Lancets)?See Instructions?for 30?Days?Use to check blood sugar three times a day DX: Diabetes Mellitus E11.9 Glimepiride (glimepiride 4 mg oral tablet)?1?tab(s)?By Mouth?2 times a day Lisinopril (lisinopril 5 mg oral tablet)?1?tablet?By Mouth?Daily Magnesium Oxide (magnesium oxide 400 mg oral tablet)?1?tab(s)?By Mouth?Daily?for 30?Days Melatonin (melatonin 3 mg oral tablet)?3?Milligram?By Mouth?Daily at bedtime?as needed?Insomnia Metformin (metFORMIN 1000 mg oral tablet)?1?tab(s)?By Mouth?2 times a day Pantoprazole (pantoprazole 40 mg oral delayed release tablet)?1?tab(s)?By Mouth?Daily Pregabalin (pregabalin 75 mg oral capsule)?1?capsule?75?Milligram?By Mouth?Daily?for 30?Days Sertraline (sertraline 25 mg oral tablet)?1?tab(s)?By Mouth?Daily Tamsulosin (Flomax 0.4 mg oral capsule)?0.4?Milligram?By Mouth?Daily Tamsulosin (tamsulosin 0.4 mg oral capsule)?0.4?Milligram?1?capsule?By Mouth?Daily?for 30?Days Thiamine (Vitamin B1 100 mg oral tablet)?1?tablet?By Mouth?Daily ? Results Recent Labs BLOOD COUNT & DIFF WBC 7.8 k/mm3 ()?? 11/25/2022 19:15 RBC 4.53 m/mm3 (Low)?? 11/25/2022 19:15 Hgb 14.5 Gm/dL ()?? 11/25/2022 19:15 Hct 43.4 % ()?? 11/25/2022 19:15 MCV 95.8 femtoliters (High)?? 11/25/2022 19:15 MCH 32.0 pg ()?? 11/25/2022 19:15 MCHC 33.4 g/dL ()?? 11/25/2022 19:15 Platelet Count 260 k/mm3 ()?? 11/25/2022 19:15 RDW-SD 41.6 femtoliters ()?? 11/25/2022 19:15 MPV 8.6 femtoliters (Low)?? 11/25/2022 19:15 Nucleated RBC (Automated) 0.0 #/100 WBC'S ()?? 11/25/2022 19:15 Abs. NRBC 0.0 k/mm3 ()?? 11/25/2022 19:15 Abs. Neut 6.3 k/mm3 ()?? 11/25/2022 19:15 Abs. Lymph 1.0 k/mm3 ()?? 11/25/2022 19:15 Abs. Cottle 0.5 k/mm3 ()?? 11/25/2022 19:15 Abs. Eo 0.0 k/mm3 ()?? 11/25/2022 19:15 Abs. Baso 0.0 k/mm3 ()?? 11/25/2022 19:15 Neut % 80.4 % (High)?? 11/25/2022 19:15 Lymph % 12.8 % (Low)?? 11/25/2022 19:15 Cottle % 5.9 % ()?? 11/25/2022 19:15 Eos % 0.1 % ()?? 11/25/2022 19:15 Baso % 0.4 % ()?? 11/25/2022 19:15 Imm Gran 0.4 % ()?? 11/25/2022 19:15 Abs. Imm Gran 0.0 k/mm3 ()?? 11/25/2022 19:15 ?? CARDIAC Nt-Probnp 411 pg/mL (High)?? 11/25/2022 19:15 High Sensitivity Troponin (HSTnT) 16 ng/L ()?? 11/25/2022 19:15 ?? CHEM GENERAL Sodium 151 mmol/L (Critical)?? 11/25/2022 19:15 Potassium 4.1 mmol/L ()?? 11/25/2022 19:15 Chloride 110 mmol/L (High)?? 11/25/2022 19:15 Bicarbonate Level 25 mmol/L ()?? 11/25/2022 19:15 Anion Gap 16 ()?? 11/25/2022 19:15 Glucose Level 152 mg/dL (High)?? 11/25/2022 19:15 BUN 17 mg/dL ()?? 11/25/2022 19:15 Creatinine-Blood 0.7 mg/dL ()?? 11/25/2022 19:15 Estimated GFR Creatinine 101 ML/MIN/1.73 M2 ()?? 11/25/2022 19:15 Calcium 10.2 mg/dL ()?? 11/25/2022 19:15 Protein, Total 7.1 Gm/dL ()?? 11/25/2022 19:15 Albumin 4.7 Gm/dL ()?? 11/25/2022 19:15 AG Ratio 2.0 ()?? 11/25/2022 19:15 Alkaline Phosphatase 107 units/L ()?? 11/25/2022 19:15 AST (SGOT) 15 units/L ()?? 11/25/2022 19:15 ALT (SGPT) 15 units/L ()?? 11/25/2022 19:15 Bilirubin, Total 1.2 mg/dL ()?? 11/25/2022 19:15 Lactate 1.4 mmol/L ()?? 11/25/2022 19:15 ?? UA/URINALYSIS Appear/Color, Urine YELLOW ()?? 11/25/2022 18:51 Specific [place], Urine 1.032 (High)?? 11/25/2022 18:51 pH, Urine 6.0 ()?? 11/25/2022 18:51 Albumin, Urine 1+ (Abnormal)?? 11/25/2022 18:51 Glucose, Urine NEGATIVE ()?? 11/25/2022 18:51 Ketones, Urine 1+ (Abnormal)?? 11/25/2022 18:51 Bilirubin, Urine NEGATIVE ()?? 11/25/2022 18:51 Hemoglobin, Urine NEGATIVE ()?? 11/25/2022 18:51 Nitrite, Urine NEGATIVE ()?? 11/25/2022 18:51 Leukocyte, Urine NEGATIVE ()?? 11/25/2022 18:51 Urobilinogen 2 mg/dL (Abnormal)?? 11/25/2022 18:51 WBC's, Urine 1 /HPF ()?? 11/25/2022 18:51 RBC's, Urine 1 /HPF ()?? 11/25/2022 18:51 Bacteria SLIGHT HPF (Abnormal)?? 11/25/2022 18:51 Squamous Epith <1 /HPF ()?? 11/25/2022 18:51 Hyaline Cast 1 LPF ()?? 11/25/2022 18:51 Mucus HEAVY /LPF ()?? 11/25/2022 18:51 Hold Urine Culture Testing available 48 hours from time of collection. ()?? 11/25/2022 18:51 ?? VIROLOGY COVID-19 by RT-PCR NEGATIVE ()?? 11/25/2022 22:34 ? LFT Albumin: 4.7 Gm/dL (19:15) Alkaline Phosphatase: 107 units/L (19:15) ALT (SGPT): 15 units/L (19:15) AST (SGOT): 15 units/L (19:15) Bilirubin, Total: 1.2 mg/dL (19:15) ?? Urinalysis Albumin, Urine: 1+ Abnormal (18:51) Appear/Color, Urine: YELLOW (18:51) Bacteria: SLIGHT Abnormal (18:51) Bilirubin, Urine: NEGATIVE (18:51) Glucose, Urine: NEGATIVE (18:51) Hemoglobin, Urine: NEGATIVE (18:51) Hold Urine Culture: Testing available 48 hours from time of collection. (18:51) Hyaline Cast: 1 LPF (18:51) Ketones, Urine: 1+ Abnormal (18:51) Leukocyte, Urine: NEGATIVE (18:51) Mucus: HEAVY (18:51) Nitrite, Urine: NEGATIVE (18:51) pH, Urine: 6 (18:51) RBC's, Urine: 1 /HPF (18:51) Specific [place], Urine:??1.032??High (18:51) Squamous Epith: <1 (18:51) Urobilinogen: 2 mg/dL Abnormal (18:51) WBC's, Urine: 1 /HPF (18:51) ?? Microbiology ?? COVID-19 (Novel Coronavirus), Rapid PCR?? Completed?? Source: Nasal Body Site: Nose Collected Dt/Tm: 11/25/2022 22:27 Last Updated Dt/Tm: 11/25/2022 23:21 ? EKG study * Event Display: ECG 12-Lead Authored Date: Please click on pdf link to open report * Event Display: ECG 12-Lead Authored Date: Ventricular Rate: 78 BPM Atrial Rate: 78 BPM P-R Interval: 150 ms QRS Duration: 126 ms Q-T Interval: 396 ms QTC Calculation(Bazett): 451 ms P [place]: 77 degrees R [place]: 208 degrees T [place]: 51 degrees Sinus rhythm with Premature atrial complexes in a pattern of bigeminy Right bundle branch block Abnormal ECG When compared with ECG of 19-OCT-2022 11:19, Questionable change in QRS axis Minimal criteria for Lateral infarct are no longer Present Confirmed by ELIE CEDENO ([id number]) on 11/26/2022 8:05:50 AM [place]: ELIE CEDENO Cardiology * Event Display: Cardiac Rhythm Strips Authored Date: Hospital Progress note * Randy GARAY, Marci: PERFORM, SIGN, VERIFY Event Display: Progress Note Hospital Authored Date: [id number] Patient: JOHN SHERMAN Age: 67 years Sex: Male : 1955 Associated Diagnoses: None Author: Marci Padilla RN Patient is alert and oriented to person. Impulsive and forgetful to situation and time. Patient continues to get out of bed frequently despite reorienting. Patient has had no bowel movement overnight. Attempted condom catheter but patient pulled it off multiple times and continues to be incontinent. Bed alarm remains on, fall precautions in place. * Haylee MARSH, Syifa: MODIFY, MODIFY, MODIFY, MODIFY, MODIFY, MODIFY, MODIFY, MODIFY, PERFORM, MODIFY, MODIFY Event Display: Progress Note Hospital Authored Date: [id number] Patient: ??JOHN SHERMAN ? Age:??67 Years?Sex:??Male?:??1955?? Subjective No acute overnight events. Patient admitted yesterday??due to??recent multiple falls, history of CVA, found to have dehydration and hyponatremia. Awaiting PT eval Seen at bedside today, he says he is cold which is why he has some tremors. He denies any chest pain, N/V. Some dysuria, endorses urinary incontinence and has a villa catheter attached draining red urine, says he has a urologist appointment soon but is not on any medications for urinary incontinence He says he has a PT coming to his house to evaluate his walking right now Also states he has some abdominal distention, says it is normal for him to have 1 bowel movement a week. Eating ok at home, drinking water and juices, denies any alcohol use Review of Systems Negative unless otherwise mentioned above in subjective Allergies Allergies ?(Active and Proposed Allergies Only) Other Food Allergy? (Severity: Unknown severity, Onset: Unknown) ?Reactions: N&V - Nausea and vomiting ?Comments: Calf Liver sulfa drugs? (Severity: Unknown severity, Onset: Unknown) penicillin? (Severity: Unknown severity, Onset: Unknown) ?Comments: difficulty breathing/swollen lips gabapentin? (Severity: Moderate, Onset: Unknown) ?Reactions: Swelling ? Objective Vital Signs?? Temperature: 97.6 DegF (11/27/22 04:00:00) Temperature Route: Oral (11/27/22 04:00:00) Pulse Rate:??54 bpm??Low (11/27/22 04:00:00) Pulse Rate, Lyin bpm (11/26/22 14:34:00) Respiratory Rate: 20 br/min (11/27/22 04:00:00) Systolic Blood Pressure: 132 mm Hg (11/27/22 04:00:00) Diastolic Blood Pressure: 66 mm Hg (11/27/22 04:00:00) Blood pressure sites: Arm, right (11/27/22 04:00:00) Mean Arterial Pressure: 77 mm Hg (11/26/22 18:05:00) Pulse Pressure: 66 mm Hg (11/27/22 04:00:00) Oxygen Saturation: 100 % (11/27/22 04:00:00) Mode of Delivery (Oxygen): Room air (11/27/22 04:00:00) Early Warning Score: 2 (11/27/22 05:06:31) Early Warning Score: 2 (11/27/22 05:06:31) ? Intake/Output? 11/25 22:56 11/27 07:00 11/26 07:00 11/25 07:00 11/24 07:00 ?? 11/27 07:23 11/27 07:23 11/27 06:59 11/26 06:59 11/25 06:59 Intake ? 1240 ?0 ? 1240 ?0 ?0 Output ?300 ?0 ?300 ?0 ?0 Net Total ?940 ?0 ?940 ?0 ?0 ? Urine Count ?1 ?0 ?1 ?0 ?0 ? Physical Exam General: No acute distress, AAOx3, tremors noted throughout extremities HEENT: EOMI, NCAT Cardio: regular rate and rhythm. pulses 2/4 Respiratory: CTA bilaterally w/ no audible wheezes or rales on room air GI: soft, nondistended, mildly tender in bilateral lower abdomen MSK: strength 5/5 BLE Extremities: no peripheral edema noted, bruising noted throughout skin Neuro: no slurring of speech, no facial droop noted _ Inpatient Medications Medications (19) Active SCHEDULED: (12) Aspirin 81 mg EC Tablet (aspirin 81 mg oral delayed release tablet) ??81 mg, By Mouth, Daily Atorvastatin 40 mg Tablet (atorvastatin 40 mg oral tablet) ??40 mg, By Mouth, Daily at bedtime Clopidogrel 75 mg Tablet (clopidogrel 75 mg oral tablet) ??75 mg, By Mouth, Daily Enoxaparin 40 mg Inj (Enoxaparin Inj) ??40 mg 0.4 mL, Subcutaneous Injection, Daily Insulin Lispro 100 units/mL Inj (3mL) (Insulin LISPRO Sliding Scale) ??2-10 units, Subcutaneous Injection, 3 times a day before meals Lisinopril 5 mg Tablet (lisinopril 5 mg oral tablet) ??5 mg, By Mouth, Daily Magnesium Oxide 400 mg Tablet (magnesium oxide 400 mg oral tablet) ??400 mg, By Mouth, Daily NaCl 0.9% Flush 3ml (NaCL 0.9% Flush) ??3 mL, IV Push, Every 8 hours Pantoprazole 40 mg EC Tablet (pantoprazole 40 mg oral delayed release tablet) ??40 mg, By Mouth, Daily Pregabalin 25 mg Capsule (pregabalin 25 mg oral capsule) ??75 mg, By Mouth, Daily Sertraline 25 mg Tablet (sertraline 25 mg oral tablet) ??25 mg, By Mouth, Daily Tamsulosin 0.4 mg Capsule (Flomax 0.4 mg oral capsule) ??0.4 mg, By Mouth, Daily CONTINUOUS: (0) PRN: (7) Acetaminophen 325 mg Tablet (Acetaminophen Tablet) ??650 mg, By Mouth, Every 4 hours Dextromethorphan-Guaifenesin 20 mg-200 mg/10 mL Liqu UD [...] times a day ? Results Recent Labs BLOOD COUNT & DIFF WBC 5.1 k/mm3 ()?? 11/27/2022 03:51 RBC 3.64 m/mm3 (Low)?? 11/27/2022 03:51 Hgb 11.7 Gm/dL (Low)?? 11/27/2022 03:51 Hct 35.7 % (Low)?? 11/27/2022 03:51 MCV 98.1 femtoliters (High)?? 11/27/2022 03:51 MCH 32.1 pg ()?? 11/27/2022 03:51 MCHC 32.8 g/dL (Low)?? 11/27/2022 03:51 Platelet Count 191 k/mm3 ()?? 11/27/2022 03:51 RDW-SD 42.6 femtoliters ()?? 11/27/2022 03:51 MPV 8.6 femtoliters (Low)?? 11/27/2022 03:51 Nucleated RBC (Automated) 0.0 #/100 WBC'S ()?? 11/27/2022 03:51 Abs. NRBC 0.0 k/mm3 ()?? 11/27/2022 03:51 ?? CHEM GENERAL Sodium 141 mmol/L ()?? 11/27/2022 03:53 Potassium 3.5 mmol/L (Low)?? 11/27/2022 03:53 Chloride 106 mmol/L ()?? 11/27/2022 03:53 Bicarbonate Level 27 mmol/L ()?? 11/27/2022 03:53 Anion Gap 8 ()?? 11/27/2022 03:53 Glucose Level 148 mg/dL (High)?? 11/26/2022 04:03 Glucose, POC 209 mg/dL (High)?? 11/26/2022 20:29 BUN 11 mg/dL ()?? 11/27/2022 03:53 Creatinine-Blood 0.6 mg/dL (Low)?? 11/27/2022 03:53 Estimated GFR Creatinine 106 ML/MIN/1.73 M2 ()?? 11/27/2022 03:53 Calcium 8.6 mg/dL ()?? 11/26/2022 04:03 Vitamin B12 Level 406 pg/mL ()?? 11/26/2022 04:03 ?? MISC. CHEMISTRY Hold Green Top SPECIMEN DISCARDED AFTER 1 WEEK ()?? 11/26/2022 08:25 ?? URINE OTHER Est Creatinine Clearance 122.99 mL/min ()?? 11/26/2022 18:22 ? Abnormal Labs ?? BLOOD COUNT & DIFF ??Abs. NRBC ??0.0 k/mm3 () ??11/27/2022 03:51 ??Hct ??35.7 % (Low) ??11/27/2022 03:51 ??Hgb ??11.7 Gm/dL (Low) ??11/27/2022 03:51 ??MCHC ??32.8 g/dL (Low) ??11/27/2022 03:51 ??MCV ??98.1 femtoliters (High) ??11/27/2022 03:51 ??MPV ??8.6 femtoliters (Low) ??11/27/2022 03:51 ??Nucleated RBC (Automated) ??0.0 #/100 WBC'S () ??11/27/2022 03:51 ??RBC ??3.64 m/mm3 (Low) ??11/27/2022 03:51 ??RDW-SD ??42.6 femtoliters () ??11/27/2022 03:51 ? CHEM GENERAL ??Creatinine-Blood ??0.6 mg/dL (Low) ??11/27/2022 03:53 ??Estimated GFR Creatinine ??106 ML/MIN/1.73 M2 () ??11/27/2022 03:53 ??Glucose, POC ??209 mg/dL (High) ??11/26/2022 20:29 ??Potassium ??3.5 mmol/L (Low) ??11/27/2022 03:53 ? MISC. CHEMISTRY ??Hold Green Top ??SPECIMEN DISCARDED AFTER 1 WEEK () ??11/26/2022 08:25 ? Note: Critical results are displayed in red. ? Cardiology Labs Nt-Probnp:??411 pg/mL??High (11/25/22 19:15:00) High Sensitivity Troponin (HSTnT): 16 ng/L (11/25/22 19:15:00) ?? Assessment/Plan 67M with past medical history of multiple previous CVAs currently on clopidogrel, COPD, CAD with previous IA, vascular dementia, diabetes with peripheral neuropathy, hypertension??who [facility]. He was found to be hypernatremic which has resolved??and admitted for syncope r/o. Orthostatic vital signs negative, fall is likely mechanical in origin, but awaiting PT consult. ?? Falls - mechanical vs syncopal Resting Tremor He has long-term use of a cane and at baseline has impaired balance and mobility from previous CVAs. Recent long-term hospital admission and rehab may have contributed??to deconditioning, as well as hypernatremia/dehydration. Pt reporting dizziness while standing up, but orthostatic VS negative. CTH and C-spine shows: No acute intracranial abnormality. Old left frontal lobe infarct. Old bilateral basal ganglia lacunar infarcts. Aneurysm clipping within the right MCA. No cervical spine fracture or subluxation. Discogenic degenerative disease throughout cervical spine. Vit B12 level wnl Will await PT eval, but also on the differential was normal pressure hydrocephalus given urge incontinence, but CTH showed no evidence of ventriculomegaly. Patient also has resting tremors, will evaluate for other mobility issues such as cogwheel rigidity or shuffling gait if concerned about Parkinson's Disease ?? Plan: - awaiting PT eval - taking vit B1 at home, continue - vit D once a week 50,000intl units - if tremors persist and contribute to imbalance and difficulty with ambulation, can consider starting pramipexole or ropinirole for restless leg syndrome ?? Bradycardia Patient noted to have low HR in the 50s, sinus rhythm on tele EKG showed sinus bradycardia with PACs and a known RBBB Denying any chest pain or palpitations, not on any beta-blockers ?? Plan: - cardiac monitoring ?? Hypernatremia- resolved Improved s/p IV hydration Encourage oral intake ?? Dysuria Urinary Incontinence Patient not prone to UTIs. Afebrile and no other symptoms or labs to suggest systemic infection. UAunremarkable. Patient incontinent in ED. Villa catheter draining red urine without clots ?? Plan: - Patient has prior Urology referral - continue with tamsulosin - villa catheter in place ?? CLEOPATRA Nonadherent to home CPAP. Patient feeling more tired than usual. ?? Plan: - encourage home CPAP use - CPAP ordered inpatient ?? Constipation Last BM??reported per nursing 11/24. BM??1x/week per patient??No recent changes. ?? Plan: - bowel regimen now scheduled: MiraLax and docusate/senna ?? Chronic Stable Medical Conditions: History of CVA: Continue aspirin, Plavix, statin Diabetes: ISS. On metformin and glimepiride outpatient. Neuropathy: Continue pregabalin Anxiety and depression: Continue sertraline GERD: Continue pantoprazole?? Hypertension: Continue lisinopril ?? Quality??metrics?? Diet: cardiac diet? VTE ppx: enoxaparin? Code Status:??full Family: Montse, life partner, updated on 11/27 OMN: PT eval ?? Patient seen??and discussed with attending physician Dr. Burdick ?? Tita Leach??DO Internal Medicine PGY2 * Kacie Burdick DO: PERFORM Event Display: Progress Note Hospital Authored Date: I have seen and evaluated this patient. ??I have discussed the case and its management with the resident and agree with the findings and plan as documented in the resident???s note. OMN PT eval, following to be sure HR doesnt go too low, ?dc tomorrow * Renata Camacho MD: PERFORM Event Display: Progress Note Hospital Authored Date: Patient: ??JOHN SHERMAN ? Age:??67 Years?Sex:??Male?:??1955?? Subjective pt seen and examined at bedside denies any symptoms is scared to walk as he feels might get dizzy when he stands up orthostatic vitals negative PT eval requested Review of Systems Constitutional:??No fever, chill Cardiovascular:??No chest pain, chest pressure or chest discomfort. No palpitations or pedal edema. Respiratory:??No shortness of breath, cough or sputum production. Gastrointestinal:??No nausea, vomiting or diarrhea. No abdominal pain or blood in stool. Objective Vital Signs?? Temperature: 99.1 DegF (11/26/22 03:38:00) Temperature Route: Oral (11/26/22 03:38:00) Pulse Rate: 59 bpm (11/26/22 14:34:00) Pulse Rate, Lyin bpm (11/26/22 14:34:00) Systolic Blood Pressure, Lyin mm Hg (11/26/22 05:40:00) Diastolic Blood Pressure, Lyin mm Hg (11/26/22 05:40:00) Pulse Rate, Sittin bpm (11/26/22 05:40:00) Systolic Blood Pressure, Sittin mm Hg (11/26/22 05:40:00) Diastolic Blood Pressure, Sittin mm Hg (11/26/22 05:40:00) Pulse Rate, Standin bpm (11/26/22 05:40:00) Systolic Blood Pressure, Standin mm Hg (11/26/22 05:40:00) Diastolic Blood Pressure, Standin mm Hg (11/26/22 05:40:00) Respiratory Rate: 18 br/min (11/26/22 14:34:00) Systolic Blood Pressure: 112 mm Hg (11/26/22 14:34:00) Diastolic Blood Pressure: 77 mm Hg (11/26/22 14:34:00) Blood pressure sites: Arm, right (11/26/22 07:50:00) Mean Arterial Pressure: 77 mm Hg (11/26/22 03:38:00) Pulse Pressure: 35 mm Hg (11/26/22 14:34:00) Oxygen Saturation: 95 % (11/26/22 14:34:00) Mode of Delivery (Oxygen): Room air (11/26/22 14:34:00) Early Warning Score: 2 (11/26/22 15:01:17) ? Intake/Output? No Data Available ? Physical Exam ?General :??No apparent distress? Respiratory??: Bilateral air entry fair. No wheeze or crackles. ?Cardiac??: Regular rate and rhythm, S1S2+ ?Abdomen/GI??: soft, non-tender, non-distended, bowel sounds present. ?Extremities??: No edema. ?Neurologic??: Alert & oriented x 3, No focal neuro deficits .? _ Inpatient Medications Medications (19) Active SCHEDULED: (12) Aspirin 81 mg EC Tablet (aspirin 81 mg oral delayed release tablet) ??81 mg, By Mouth, Daily Atorvastatin 40 mg Tablet (atorvastatin 40 mg oral tablet) ??40 mg, By Mouth, Daily at bedtime Clopidogrel 75 mg Tablet (clopidogrel 75 mg oral tablet) ??75 mg, By Mouth, Daily Enoxaparin 40 mg Inj (Enoxaparin Inj) ??40 mg 0.4 mL, Subcutaneous Injection, Daily Insulin Lispro 100 units/mL Inj (3mL) (Insulin LISPRO Sliding Scale) ??2-10 units, Subcutaneous Injection, 3 times a day before meals Lisinopril 5 mg Tablet (lisinopril 5 mg oral tablet) ??5 mg, By Mouth, Daily Magnesium Oxide 400 mg Tablet (magnesium oxide 400 mg oral tablet) ??400 mg, By Mouth, Daily NaCl 0.9% Flush 3ml (NaCL 0.9% Flush) ??3 mL, IV Push, Every 8 hours Pantoprazole 40 mg EC Tablet (pantoprazole 40 mg oral delayed release tablet) ??40 mg, By Mouth, Daily Pregabalin 25 mg Capsule (pregabalin 25 mg oral capsule) ??75 mg, By Mouth, Daily Sertraline 25 mg Tablet (sertraline 25 mg oral tablet) ??25 mg, By Mouth, Daily Tamsulosin 0.4 mg Capsule (Flomax 0.4 mg oral capsule) ??0.4 mg, By Mouth, Daily CONTINUOUS: (0) PRN: (7) Acetaminophen 325 mg Tablet (Acetaminophen Tablet) ??650 mg, By Mouth, Every 4 hours Dextromethorphan-Guaifenesin 20 mg-200 mg/10 mL Liqu UD [...] times a day ? Results Recent Labs BLOOD COUNT & DIFF WBC 4.9 k/mm3 ()?? 11/26/2022 08:25 RBC 3.80 m/mm3 (Low)?? 11/26/2022 08:25 Hgb 12.5 Gm/dL (Low)?? 11/26/2022 08:25 Hct 37.7 % (Low)?? 11/26/2022 08:25 MCV 99.2 femtoliters (High)?? 11/26/2022 08:25 MCH 32.9 pg ()?? 11/26/2022 08:25 MCHC 33.2 g/dL ()?? 11/26/2022 08:25 Platelet Count 192 k/mm3 ()?? 11/26/2022 08:25 RDW-SD 43.8 femtoliters ()?? 11/26/2022 08:25 MPV 8.6 femtoliters (Low)?? 11/26/2022 08:25 Nucleated RBC (Automated) 0.0 #/100 WBC'S ()?? 11/26/2022 08:25 Abs. NRBC 0.0 k/mm3 ()?? 11/26/2022 08:25 Abs. Neut 6.3 k/mm3 ()?? 11/25/2022 19:15 Abs. Lymph 1.0 k/mm3 ()?? 11/25/2022 19:15 Abs. Cottle 0.5 k/mm3 ()?? 11/25/2022 19:15 Abs. Eo 0.0 k/mm3 ()?? 11/25/2022 19:15 Abs. Baso 0.0 k/mm3 ()?? 11/25/2022 19:15 Neut % 80.4 % (High)?? 11/25/2022 19:15 Lymph % 12.8 % (Low)?? 11/25/2022 19:15 Cottle % 5.9 % ()?? 11/25/2022 19:15 Eos % 0.1 % ()?? 11/25/2022 19:15 Baso % 0.4 % ()?? 11/25/2022 19:15 Imm Gran 0.4 % ()?? 11/25/2022 19:15 Abs. Imm Gran 0.0 k/mm3 ()?? 11/25/2022 19:15 ?? CARDIAC Nt-Probnp 411 pg/mL (High)?? 11/25/2022 19:15 High Sensitivity Troponin (HSTnT) 16 ng/L ()?? 11/25/2022 19:15 ?? CHEM GENERAL Sodium 145 mmol/L ()?? 11/26/2022 08:25 Potassium 3.9 mmol/L ()?? 11/26/2022 08:25 Chloride 110 mmol/L (High)?? 11/26/2022 08:25 Bicarbonate Level 23 mmol/L ()?? 11/26/2022 08:25 Anion Gap 12 ()?? 11/26/2022 08:25 Glucose Level 148 mg/dL (High)?? 11/26/2022 04:03 Glucose, POC 172 mg/dL (High)?? 11/26/2022 11:55 BUN 12 mg/dL ()?? 11/26/2022 04:03 Creatinine-Blood 0.6 mg/dL (Low)?? 11/26/2022 04:03 Estimated GFR Creatinine 109 ML/MIN/1.73 M2 ()?? 11/26/2022 04:03 Calcium 8.6 mg/dL ()?? 11/26/2022 04:03 Protein, Total 7.1 Gm/dL ()?? 11/25/2022 19:15 Albumin 4.7 Gm/dL ()?? 11/25/2022 19:15 AG Ratio 2.0 ()?? 11/25/2022 19:15 Alkaline Phosphatase 107 units/L ()?? 11/25/2022 19:15 AST (SGOT) 15 units/L ()?? 11/25/2022 19:15 ALT (SGPT) 15 units/L ()?? 11/25/2022 19:15 Bilirubin, Total 1.2 mg/dL ()?? 11/25/2022 19:15 Vitamin B12 Level 406 pg/mL ()?? 11/26/2022 04:03 Lactate 1.4 mmol/L ()?? 11/25/2022 19:15 ?? MISC. CHEMISTRY Hold Green Top SPECIMEN DISCARDED AFTER 1 WEEK ()?? 11/26/2022 08:25 ?? UA/URINALYSIS Appear/Color, Urine YELLOW ()?? 11/25/2022 18:51 Specific [place], Urine 1.032 (High)?? 11/25/2022 18:51 pH, Urine 6.0 ()?? 11/25/2022 18:51 Albumin, Urine 1+ (Abnormal)?? 11/25/2022 18:51 Glucose, Urine NEGATIVE ()?? 11/25/2022 18:51 Ketones, Urine 1+ (Abnormal)?? 11/25/2022 18:51 Bilirubin, Urine NEGATIVE ()?? 11/25/2022 18:51 Hemoglobin, Urine NEGATIVE ()?? 11/25/2022 18:51 Nitrite, Urine NEGATIVE ()?? 11/25/2022 18:51 Leukocyte, Urine NEGATIVE ()?? 11/25/2022 18:51 Urobilinogen 2 mg/dL (Abnormal)?? 11/25/2022 18:51 WBC's, Urine 1 /HPF ()?? 11/25/2022 18:51 RBC's, Urine 1 /HPF ()?? 11/25/2022 18:51 Bacteria SLIGHT HPF (Abnormal)?? 11/25/2022 18:51 Squamous Epith <1 /HPF ()?? 11/25/2022 18:51 Hyaline Cast 1 LPF ()?? 11/25/2022 18:51 Mucus HEAVY /LPF ()?? 11/25/2022 18:51 Hold Urine Culture Testing available 48 hours from time of collection. ()?? 11/25/2022 18:51 ?? VIROLOGY COVID-19 by RT-PCR NEGATIVE ()?? 11/25/2022 22:34 ? Assessment/Plan ?? 67-year-old male with past medical history of multiple previous CVAs currently on clopidogrel, COPD, CAD with previous IA, vascular dementia, diabetes with peripheral neuropathy, hypertension??who was??brought to the ED via EMS for multiple falls. He was found to be hypernatremic and admitted for syncope r/o. ?? Falls - mechanical vs syncopal He has long-term use of a cane and baseline impaired balance and mobility from previous CVAs. Recent long-term hospital admission and rehab may have contributed??to deconditioning. hypernatremia/dehydration. pt reporting dizziness while standing up. orthostatic vitals negative PT eval and asess if pt still feels dizzy since he had fluids and orthos negative ? Hypernatremia improving post IV hydration encourage pO ? Dysuria Urinary Incontinence Patient not prone to UTIs. Afebrile and no other symptoms or labs to suggest systemic infection. UAunremarkable. Patient incontinent in ED. ?? Plan: - Patient has prior Urology referral -tamsulosin and balancing history of urinary retention ? CLEOPATRA Does not use home cpap. Patient feeling more tired than usual. ?? Plan: - encourage home CPAP use ?Constipation ??Last BM 2 days ago. BM 2-3 times/week. No recent changes. ?? Plan: - bowel regimen ?? History of CVA?? -Continue aspirin, Plavix, statin ? Diabetes -On metformin and glimepiride outpatient. We will use sliding scale while inpatient ? Neuropathy -Continue pregabalin ? Anxiety and depression -Continue sertraline ? GERD -Continue pantoprazole ? Hypertension: -Continue lisinopril ? Quality??metrics?? Diet: cardiac diet? VTE ppx: enoxaparin? Code Status:??full ?? OMN- pt eval?? Note * Valentine Keen RN: PERFORM Event Display: Discharge/Transfer Note Hospital Authored Date: [id number] Nursing Discharge Note Entered On: 11/29/2022 14:52 EDT Performed On: 11/29/2022 14:51 EDT by Valentine Keen RN Nursing Discharge Note 2 Discharge Time : 11/29/2022 14:15 EDT Discharge Level of Care at Discharge : assisted facility Discharge Nursing Homes/Rehab Facilities : [facility] Patient Left Unit Via : Ambulance Patient Accompanied Off Unit with : Ambulance/[facility] Personnel Handover Given to Transport Personnel : Yes DC Instructions Provided & Signed by Pt : Yes Patient Understands D/C Instructions : Yes Patient Instructions Discharge Signed : Yes Discharge Comments : IV dc'd with the tip intact Did Pt have Specialty Bed or Wound Vac : No Valentine Keen RN - 11/29/2022 14:51 EDT * Tita Leach DO: MODIFY, MODIFY, PERFORM Event Display: Discharge/Transfer Note Hospital Authored Date: [id number] Patient: ??JOHN SHERMAN ? Age:??67 Years?Sex:??Male?:??1955?? Patient Information Discharge Location: [facility] Primary Care Physician: Sonya Dee NP Admit Date/Time: 11/25/22 22:56 Discharge Disposition Discharge Disposition: Residential Facility/Rehab Discharge Diagnosis Primary Diagnosis: Multiple falls (R29.6) ?? Secondary Diagnoses: Hypernatremia (E87.0) Syncope (R55) Benign hypertension CAD (coronary artery disease) Chronic lower back pain _ Discharge Medications Albuterol/Ipratropium (albuterol-ipratropium 3 mg-0.5 mg/3 ml inhalation solution)?3?Milliliter?BAND Nebulizer?Every 4 hours?as needed?Wheezing/Shortness of Breath Ascorbic Acid (Vitamin C 500 mg oral tablet)?1?tab(s)?500?Milligram?By Mouth?Daily?(Last Filled & delivered 10/18/22 90 for 90 days) Aspirin (Aspirin Low Dose 81 mg oral tablet, chewable)?1?tab(s)?81?Milligram?By Mouth?Daily?(Last Filled & delivered 07/24/22 90 for 90 days) Atorvastatin (atorvastatin 40 mg oral tablet)?1?tab(s)?40?Milligram?By Mouth?Daily?(Last Filled & delivered 10/09/22 28 for 28 days) Calcium Carbonate (calcium carbonate 500 mg (200 mg elemental calcium) oral tablet, chewable)?500?Milligram?1?tablet?Chew?3 times a day?as needed?as needed for dyspepsia Clopidogrel (clopidogrel 75 mg oral tablet)?75?Milligram?1?tablet?By Mouth?Daily?(Last Filled & Delivered 07/28/22 90 ??for 90 days) Docusate-Senna (Docusate/Senna Tablet)?1?tab(s)?By Mouth?2 times a day Durable Medical Equipment (large pull ups)?See Instructions?DX: incontinence N39.46 Durable Medical Equipment (depends xl)?See Instructions?DX: incontinence N39.46 Durable Medical Equipment (Freestyle Lite Monitor)?See Instructions?Use to check blood sugar three times a day DX: Diabetes Mellitus E11.9 Durable Medical Equipment (Freestyle Lite Test Strips)?See Instructions?Use to check blood sugar three times a dayDX: Diabetes Mellitus E11.9 Durable Medical Equipment (Freestyle Lite Lancets)?See Instructions?for 30?Days?Use to check blood sugar three times a day DX: Diabetes Mellitus E11.9 Glimepiride (glimepiride 4 mg oral tablet)?1?tab(s)?4?Milligram?By Mouth?2 times a day?(Last Filled & delivered 07/24/22 180 for 90 days) Lisinopril (lisinopril 5 mg oral tablet)?5?Milligram?1?tablet?By Mouth?Daily?(Last Filled & delivered 07/24/22 90 for 90 days) Magnesium Oxide (magnesium oxide 400 mg oral tablet)?1?tab(s)?400?Milligram?By Mouth?Daily?(Last Filled & delivered 10/09/22 28 for 28 days) Melatonin (melatonin 3 mg oral tablet)?1?tab(s)?3?Milligram?By Mouth?Daily at bedtime?as needed?Insomnia Metformin (metFORMIN 1000 mg oral tablet)?1?tab(s)?1,000?Milligram?By Mouth?2 times a day?(Last Filled & delivered 07/24/22 180 for 90 days) Pantoprazole (pantoprazole 40 mg oral delayed release tablet)?1?tab(s)?40?Milligram?By Mouth?Daily?(Last Filled & delivered 07/24/22 90 for 90 days) Pregabalin (pregabalin 75 mg oral capsule)?1?capsule?75?Milligram?By Mouth?Daily?(Has Never Started Per Héctor this patient gets ALL MEDS Delivered.) Sertraline (sertraline 25 mg oral tablet)?1?tab(s)?25?Milligram?By Mouth?Daily?(Last Filled & delivered 07/24/22 90 for 90 days) Thiamine (Vitamin B1 100 mg oral tablet)?100?Milligram?1?tablet?By Mouth?Daily?(Last Filled & delivered 10/10/22 28 for 28 days) ? Quality Measures Tobacco Use Treatment:? Medications Started none Medications Discontinued Vitamin D3 Doses Changed none Allergies Allergies ?(Active and Proposed Allergies Only) Onions? (Severity: Unknown severity, Onset: Unknown) Other Food Allergy? (Severity: Unknown severity, Onset: Unknown) ?Reactions: N&V - Nausea and vomiting ?Comments: Calf Liver sulfa drugs? (Severity: Unknown severity, Onset: Unknown) penicillin? (Severity: Unknown severity, Onset: Unknown) ?Comments: difficulty breathing/swollen lips gabapentin? (Severity: Moderate, Onset: Unknown) ?Reactions: Swelling ? Hospital Course 67M with past medical history of multiple previous CVAs currently on clopidogrel, COPD, CAD with previous IA, vascular dementia, diabetes with peripheral neuropathy, hypertension who was brought to the ED via EMS for multiple falls. He was found to be hypernatremic which has resolved and admitted for syncope r/o. CTH did not show any acute abnormalities, labs concerning for hypernatremia that resolved with IVF; fall is likely mechanical in origin given??dehydration. PT evaluated patient and recommends rehab placement. Patient also found to be bradycardic, no symptoms, orthostatic vitals negative. On day of discharge patient is hemodynamically stable. ?? Falls - mechanical vs syncopal Resting Tremor He has long-term use of a cane and at baseline has impaired balance and mobility from previous CVAs. Recent long-term hospital admission and rehab may have contributed to deconditioning, as well as hypernatremia/dehydration. Pt reporting dizziness while standing up, but orthostatic VS negative. CTH and C-spine shows: No acute intracranial abnormality. Old left frontal lobe infarct. Old bilateral basal ganglia lacunar infarcts. Aneurysm clipping within the right MCA. No cervical spine fracture or subluxation. Discogenic degenerative disease throughout cervical spine. Vit B12 level wnl Vit D levels 59 in July 2022, will stop Vit D 50,000intl units capsule weekly and FU outpatient with PCP Also on the differential was normal pressure hydrocephalus given urge incontinence, but CTH showed no evidence of ventriculomegaly. Patient also has resting tremors, will evaluate for other mobility issues such as cogwheel rigidity or shuffling gait if concerned about Parkinson's Disease ?? Recommendations: ??- PT recommends rehab ??- taking vit B1 at home, continue ??- DISCONTINUED vit D once a week 50,000intl units, FU with PCP to recheck levels and start maintenance dose if needed/as appropriate to avoid Vitamin D toxicity ??- if tremors persist and contribute to imbalance and difficulty with ambulation, can??consider outpatient neurology workup for tremor management and gait instability ?? Bradycardia ??Patient noted to have low HR in the 50s, sinus rhythm on tele ??EKG showed sinus bradycardia with PACs and a known RBBB ??Denying any chest pain or palpitations, not on any beta-blockers ?? Dysuria Urinary Incontinence ??Patient not prone to UTIs. Afebrile and no other symptoms or labs to suggest systemic infection. UA unremarkable. Patient incontinent in ED. ??Villa catheter draining red urine without clots ?? Recommendations: ??- Urology referral ??- continue with tamsulosin ?? CLEOPATRA ??Nonadherent to home CPAP. Patient feeling more tired than usual. ??- encourage home CPAP use ?? Constipation ??Last BM reported per nursing 11/24. BM 1x/week per patient No recent changes. ?? Chronic Stable Medical Conditions: History of CVA:??Continue aspirin, Plavix, statin Diabetes:??Continue metformin and glimepiride Neuropathy: Continue pregabalin Anxiety and depression: Continue sertraline GERD:??Continue pantoprazole Hypertension: Continue lisinopril ?? Objective Assessment and Plan Discharge Planning:? Vital Signs?? Temperature: 98.3 DegF (11/29/22 03:00:00) Temperature Route: Oral (11/29/22 03:00:00) Pulse Rate: 58 bpm (11/29/22 03:00:00) Respiratory Rate: 18 br/min (11/29/22 03:00:00) Systolic Blood Pressure:??161 mm Hg??High (11/29/22 03:00:00) Diastolic Blood Pressure: 76 mm Hg (11/29/22 03:00:00) Blood pressure sites: Arm, right (11/29/22 03:00:00) Mean Arterial Pressure: 78 mm Hg (11/28/22 16:28:00) Pulse Pressure: 85 mm Hg (11/29/22 03:00:00) Oxygen Saturation: 100 % (11/29/22 03:00:00) Mode of Delivery (Oxygen): Room air (11/29/22 03:00:00) FiO2: 21 % (11/29/22 00:35:00) Early Warning Score: 0 (11/29/22 06:36:40) ? . Physical Exam General: No acute distress, AAOx3, tremors not noted today on exam HEENT: EOMI, NCAT Cardio: regular rate and rhythm. pulses 2/4 Respiratory: CTA bilaterally w/ no audible wheezes or rales on room air GI: soft, nondistended, mildly tender in bilateral lower abdomen MSK: strength 5/5 BLE Extremities: no peripheral edema noted, bruising noted throughout skin Neuro: no slurring of speech, no facial droop noted Pending Results Blood Culture ordered on 11/25/2022 Blood Culture #2 ordered on 11/25/2022 Patient Education Titles Preventing Falls: How to Prepare and What to Do?? Preventing Falls: Make Your Health a Priority?? Preventing Falls: Are You at Risk of Falling??? Exercises to Prevent Falls?? Dehydration (Adult)?? Discharge Instructions for Hypernatremia?? Patient Instructions You initially came in due to recent falls (2-3 times in one day). We worked up the causes of a fall, it looks like you were very dehydrated and we gave you fluids. You were also noted to have a very slow heart rate but your blood pressure was normal. Physical therapy saw you and evaluated you. Based on their recommendations, they recommend rehab. We also recommend an outpatient neurology evaluation for management of tremors, which may contribute to feelings of imbalance and unsteadiness. Home Health Face to Face ^HomeHealthFTF Results Discharge Labs BLOOD COUNT & DIFF WBC 5.8 k/mm3 ()?? 11/28/2022 06:42 RBC 3.90 m/mm3 (Low)?? 11/28/2022 06:42 Hgb 12.6 Gm/dL (Low)?? 11/28/2022 06:42 Hct 36.6 % (Low)?? 11/28/2022 06:42 MCV 93.8 femtoliters ()?? 11/28/2022 06:42 MCH 32.3 pg ()?? 11/28/2022 06:42 MCHC 34.4 g/dL ()?? 11/28/2022 06:42 Platelet Count 187 k/mm3 ()?? 11/28/2022 06:42 RDW-SD 39.6 femtoliters ()?? 11/28/2022 06:42 MPV 8.5 femtoliters (Low)?? 11/28/2022 06:42 Nucleated RBC (Automated) 0.0 #/100 WBC'S ()?? 11/28/2022 06:42 Abs. NRBC 0.0 k/mm3 ()?? 11/28/2022 06:42 Abs. Neut 6.3 k/mm3 ()?? 11/25/2022 19:15 Abs. Lymph 1.0 k/mm3 ()?? 11/25/2022 19:15 Abs. Cottle 0.5 k/mm3 ()?? 11/25/2022 19:15 Abs. Eo 0.0 k/mm3 ()?? 11/25/2022 19:15 Abs. Baso 0.0 k/mm3 ()?? 11/25/2022 19:15 Neut % 80.4 % (High)?? 11/25/2022 19:15 Lymph % 12.8 % (Low)?? 11/25/2022 19:15 Cottle % 5.9 % ()?? 11/25/2022 19:15 Eos % 0.1 % ()?? 11/25/2022 19:15 Baso % 0.4 % ()?? 11/25/2022 19:15 Imm Gran 0.4 % ()?? 11/25/2022 19:15 Abs. Imm Gran 0.0 k/mm3 ()?? 11/25/2022 19:15 ?? CARDIAC Nt-Probnp 411 pg/mL (High)?? 11/25/2022 19:15 High Sensitivity Troponin (HSTnT) 16 ng/L ()?? 11/25/2022 19:15 ?? CHEM GENERAL Sodium 140 mmol/L ()?? 11/28/2022 06:42 Potassium 3.9 mmol/L ()?? 11/28/2022 06:42 Chloride 105 mmol/L ()?? 11/28/2022 06:42 Bicarbonate Level 25 mmol/L ()?? 11/28/2022 06:42 Anion Gap 10 ()?? 11/28/2022 06:42 Glucose Level 108 mg/dL (High)?? 11/28/2022 06:42 Glucose, POC 96 mg/dL ()?? 11/28/2022 21:05 BUN 10 mg/dL ()?? 11/28/2022 06:42 Creatinine-Blood 0.5 mg/dL (Low)?? 11/28/2022 06:42 Estimated GFR Creatinine 112 ML/MIN/1.73 M2 ()?? 11/28/2022 06:42 Calcium 8.6 mg/dL ()?? 11/28/2022 06:42 Protein, Total 7.1 Gm/dL ()?? 11/25/2022 19:15 Albumin 4.7 Gm/dL ()?? 11/25/2022 19:15 AG Ratio 2.0 ()?? 11/25/2022 19:15 Alkaline Phosphatase 107 units/L ()?? 11/25/2022 19:15 AST (SGOT) 15 units/L ()?? 11/25/2022 19:15 ALT (SGPT) 15 units/L ()?? 11/25/2022 19:15 Bilirubin, Total 1.2 mg/dL ()?? 11/25/2022 19:15 Vitamin B12 Level 406 pg/mL ()?? 11/26/2022 04:03 Lactate 1.4 mmol/L ()?? 11/25/2022 19:15 ?? MISC. CHEMISTRY Hold Green Top SPECIMEN DISCARDED AFTER 1 WEEK ()?? 11/26/2022 08:25 ? UA/URINALYSIS Appear/Color, Urine YELLOW ()?? 11/25/2022 18:51 Specific [place], Urine 1.032 (High)?? 11/25/2022 18:51 pH, Urine 6.0 ()?? 11/25/2022 18:51 Albumin, Urine 1+ (Abnormal)?? 11/25/2022 18:51 Glucose, Urine NEGATIVE ()?? 11/25/2022 18:51 Ketones, Urine 1+ (Abnormal)?? 11/25/2022 18:51 Bilirubin, Urine NEGATIVE ()?? 11/25/2022 18:51 Hemoglobin, Urine NEGATIVE ()?? 11/25/2022 18:51 Nitrite, Urine NEGATIVE ()?? 11/25/2022 18:51 Leukocyte, Urine NEGATIVE ()?? 11/25/2022 18:51 Urobilinogen 2 mg/dL (Abnormal)?? 11/25/2022 18:51 WBC's, Urine 1 /HPF ()?? 11/25/2022 18:51 RBC's, Urine 1 /HPF ()?? 11/25/2022 18:51 Bacteria SLIGHT HPF (Abnormal)?? 11/25/2022 18:51 Squamous Epith <1 /HPF ()?? 11/25/2022 18:51 Hyaline Cast 1 LPF ()?? 11/25/2022 18:51 Mucus HEAVY /LPF ()?? 11/25/2022 18:51 Hold Urine Culture Testing available 48 hours from time of collection. ()?? 11/25/2022 18:51 ?? URINE OTHER Est Creatinine Clearance 147.59 mL/min ()?? 11/28/2022 07:27 ? VIROLOGY COVID-19 by RT-PCR NEGATIVE ()?? 11/25/2022 22:34 ? Microbiology ?? COVID-19 (Novel Coronavirus), Rapid PCR?? Completed?? Source: Nasal Body Site: Nose Collected Dt/Tm: 11/25/2022 22:27 Last Updated Dt/Tm: 11/25/2022 23:21 ? _35 minutes spent on discharge ?? Patient seen??and discussed with attending physician Dr. Donohue ?? Tita Leach??DO Internal Medicine PGY2 * Event Display: Discharge/Transfer Note Hospital Authored Date: * Latonya Still RN: PERFORM, SIGN, VERIFY Event Display: Case Management Discharge Plan Authored Date: Patient: JOHN SHERMAN Age: 67 years Sex: Male : 1955 Associated Diagnoses: None Author: Latonya Still RN Discharge Plan Case Management Discharge Plan : Case Management Discharge Plan Data 11/28/2022 8:50 EDT Discharge Level of Care at Discharge assisted facility Discharge Nursing Homes/Rehab Facilities [facility] Discharge Transportation Arranged [facility] [phone] Name of Agency #1 [facility] Service Categories #1 Physical Therapy, Residential 11/27/2022 10:11 EDT Discharge Nursing Homes/Rehab Facilities [facility] * Valentine Keen RN: PERFORM Event Display: Patient Education/Instruction Authored Date: [id number] Inpatient Adult Discharge Instructions [address] [address] Name: JOHN SHERMAN : 1955 Visit: 11/25/2022 22:56:00 Current Date: 11/29/2022 13:42 Account: [id number] Inpatient Adult Discharge Instructions We would like [...] and their families. Surveys are administered by [employer] ?? If further treatment with your primary care physician or another doctor is recommended, it is important for you to keep the appointment. Call your primary care physician or return to the Emergency Department immediately if your condition worsens, fails to improve, or new symptoms develop. If you need to find a doctor, you can call [facility] for a referral at [phone] or toll free at [phone]) or log in to [email or web address].. ?? You can view and manage your care through the patient portal or by using a health care derrick of your choosing. [employer] is a website that allows you to securely view your medical information including your hospital discharge summary, office visit summaries, medications and follow-up visits. You can also request appointments, renew medications, and request access to your medical information using a health care derrick of your choosing, or just ask a question. You can enroll at [email or web address] or register during your next office visit. You have been discharged from [facility], Patient Care Unit: S3. If you have any questions regarding these instructions after you leave, please call us and we will be happy to assist you. [facility] Your Care Team Attending Physician Cesia Donohue MD Discharging Providers Tita Leach DO Reason for Admission from home, had three falls today, denies any loc or head strike, recently in rehab, released three days ago, question of UTI Your Diagnosis Multiple falls Hypernatremia Syncope Tests Performed Below is a partial list of the tests performed during your hospitalization. You may have had other tests and procedures not included in this list. Please discuss all test results with your provider. B12 Vitamin Level Basic Metabolic Panel BUN CBC CBC w/ Differential Comprehensive Metabolic Panel COVID-19 (Novel Coronavirus), Rapid PCR Creatinine Electrolytes GLUCOSE POC High??Sensitivity??Troponin T HOLD GREEN TUBE Lactate Level ProBNP Urinalysis w/hold for Urine Culture CT Cervical Spine W/O Contrast CT Head/Brain W/O Contrast XR Chest 2 Views Frontal and Lat Primary Care Provider Sonya Dee NP Advance Directive Health Care Proxy on File Yes - Health Care Proxy Yes - MOLST Discharge Vitals Temperature: 98.7 DegF Height: 177.8 cm Pulse Rate: 56 bpm Weight: 71.8 kg Respiratory Rate: 18 br/min Body Mass Index: 22.71 kg/m2 Systolic Blood Pressure:??159 mm Hg??High Body surface area: 1.88 Diastolic Blood Pressure: 70 mm Hg ?? Oxygen Saturation: 100 % ?? Studies Pending All tests and labs ordered during this hospital stay have been completed unless listed below. Please discuss all pending results with your provider listed above in these instructions. ?? Blood Culture Blood Culture #2 What to do next Instructions From Your Doctor You initially came in due to recent falls (2-3 times in one day). We worked up the causes of a fall, it looks like you were very dehydrated and we gave you fluids. You were also noted to have a very slow heart rate but your blood pressure was normal. Physical therapy saw you and evaluated you. Based on their recommendations, they recommend rehab. We also recommend an outpatient neurology evaluation for management of tremors, which may contribute to feelings of imbalance and unsteadiness. Discharge Orders Discharge Medications JOHN SHERMAN :1955 Visit Date:11/25/2022 Medications: Please continue your medications until treatment is completed or stopped by your provider. Medications not listed below should be discontinued. Discuss any questions related to medications with your provider. What How Much When Why Instructions Next Dose Changed Albuterol/ Ipratropium (albuterol-ipratropium3 mg-0.5 mg/ 3 ml inhalation solution) 3 Milliliter BAND Nebulizer Every 4 hours as needed for Wheezing/Shortness of Breath NEEDED Changed Ascorbic Acid (Vitamin C 500 mg oral tablet) 1 tab(s) Oral Daily (Last Filled & delivered 90 for 90 days) ?? 11/30 AM Changed Aspirin (Aspirin Low Dose 81 mg oral tablet, chewable) 1 tab(s) Oral Daily (Last Filled & delivered 90 for 90 days) ?? 11/30 AM Changed Atorvastatin (atorvastatin 40 mg oral tablet) 1 tab(s) Oral Daily (Last Filled & delivered 28 for 28 days) ?? 11/30 AM Changed Clopidogrel (clopidogrel 75 mg oral tablet) 1 tab(s) Oral Daily (Last Filled & Delivered 90 ??for 90 days) ?? 11/30 AM Changed Glimepiride (glimepiride 4 mg oral tablet) 1 tab(s) Oral Twice a day (Last Filled & delivered 180 for 90 days) ?? 11/29 PM Changed Lisinopril (lisinopril 5 mg oral tablet) 1 tab(s) Oral Daily (Last Filled & delivered 90 for 90 days) ?? 11/30 AM Changed Magnesium Oxide (magnesium oxide 400 mg oral tablet) 1 tab(s) Oral Daily (Last Filled & delivered 28 for 28 days) ?? 11/30 AM Changed Melatonin (melatonin 3 mg oral tablet) 1 tab(s) Oral Daily at Bedtime as needed for Insomnia as needed Changed Metformin (metFORMIN 1000 mg oral tablet) 1 tab(s) Oral Twice a day (Last Filled & delivered 180 for 90 days) ?? 11/29 PM Changed Pantoprazole (pantoprazole 40 mg oral delayed release tablet) 1 tab(s) Oral Daily (Last Filled & delivered 90 for 90 days) ?? 11/30 AM Changed Pregabalin (pregabalin 75 mg oral capsule) 1 capsule Oral Daily (Has Never Started Per Héctor this patient gets ALL MEDS Delivered.) ?? 11/30 AM Changed Sertraline (sertraline 25 mg oral tablet) 1 tab(s) Oral Daily (Last Filled & delivered 90 for 90 days) ?? 811 AM Changed Thiamine (Vitamin B1 100 mg oral tablet) 1 tab(s) Oral Daily (Last Filled & delivered 28 for 28 days) ?? 811 AM Unchanged Calcium Carbonate (calcium carbonate 500 mg (200 mg elemental calcium) oral tablet, chewable) 1 tab(s) Chew 3 times a day as needed for as needed for dyspepsia as needed Unchanged Docusate-Senna (Docusate/ Senna Tablet) 1 tab(s) Oral Twice a day 8/10 PM ?? What How Much When Comments Stop Taking Cholecalciferol (Vitamin D3 50,000 intl units oral capsule) 1 capsule Oral Every 7 days (Filled & Delivered ) ?? Stop Taking Tamsulosin (Flomax 0.4 mg oral capsule) 0.4 Milligram Oral Daily Test Results Below is a partial list of the most recent Laboratory test results done prior to this discharge. You may have had other tests and procedures not included in this list. Please discuss all test resultswith your provider. Est Creatinine Clearance - 147.59 mL/min (11/28/2022) B12 Vitamin Level (11/26/2022) ???Vitamin B12 Level - 406 pg/mL Basic Metabolic Panel (11/28/2022) ???Sodium - 140 mmol/L???Potassium - 3.9 mmol/L???Chloride - 105 mmol/L???Bicarbonate Level - 25 mmol/L???Anion Gap - 10???Glucose Level - 108 mg/dL???BUN - 10 mg/dL???Creatinine-Blood - 0.5 mg/dL???Estimated GFR Creatinine - 112 ML/MIN/1.73 M2???Calcium - 8.6 mg/dL BUN (11/27/2022) ???BUN - 11 mg/dL CBC (11/28/2022) ???WBC - 5.8 k/mm3???RBC - 3.90 m/mm3???Hgb - 12.6 Gm/dL???Hct - 36.6 %???MCV - 93.8 femtoliters???MCH - 32.3 pg???MCHC - 34.4 g/dL???Platelet Count - 187 k/mm3???RDW-SD - 39.6 femtoliters???MPV - 8.5 femtoliters???Nucleated RBC (Automated) - 0.0 #/100 WBC'S???Abs. NRBC - 0.0 k/mm3 CBC w/ Differential (11/25/2022) ???WBC - 7.8 k/mm3???RBC - 4.53 m/mm3???Hgb - 14.5 Gm/dL???Hct - 43.4 %???MCV - 95.8 femtoliters???MCH - 32.0 pg???MCHC - 33.4 g/dL???Platelet Count - 260 k/mm3???RDW-SD - 41.6 femtoliters???MPV - 8.6 femtoliters???Nucleated RBC (Automated) - 0.0 #/100 WBC'S???Abs. NRBC - 0.0 k/mm3???Abs. Neut - 6.3 k/mm3???Abs. Lymph - 1.0 k/mm3???Abs. Cottle - 0.5 k/mm3???Abs. Eo - 0.0 k/mm3???Abs. Baso - 0.0 k/mm3???Neut % - 80.4 %???Lymph % - 12.8 %???Cottle % - 5.9 %???Eos % - 0.1 %???Baso % - 0.4 %???Imm Gran- 0.4 %???Abs. Imm Gran - 0.0 k/mm3 Comprehensive Metabolic Panel (11/25/2022) ???Sodium - 151 mmol/L???Potassium - 4.1 mmol/L???Chloride - 110 mmol/L???Bicarbonate Level - 25 mmol/L???Anion Gap - 16???Glucose Level - 152 mg/dL???BUN - 17 mg/dL???Creatinine-Blood - 0.7 mg/dL???Estimated GFR Creatinine - 101 ML/MIN/1.73 M2???Calcium - 10.2 mg/dL???Protein, Total - 7.1 Gm/dL???A lbumin - 4.7 Gm/dL???AG Ratio - 2.0???Alkaline Phosphatase - 107 units/L???AST (SGOT) - 15 units/L???ALT (SGPT) - 15 units/L???Bilirubin, Total - 1.2 mg/dL COVID-19 (Novel Coronavirus), Rapid PCR (11/25/2022) ???COVID-19 by RT-PCR - NEGATIVE Creatinine (11/27/2022) ???Creatinine-Blood - 0.6 mg/dL???Estimated GFR Creatinine - 106 ML/MIN/1.73 M2 Electrolytes (11/27/2022) ???Sodium - 141 mmol/L???Potassium - 3.5 mmol/L???Chloride - 106 mmol/L???Bicarbonate Level - 27 mmol/L???Anion Gap - 8 GLUCOSE POC (11/29/2022) ???Glucose, POC - 297 mg/dL High??Sensitivity??Troponin T (11/25/2022) ???High Sensitivity Troponin (HSTnT) - 16 ng/L HOLD GREEN TUBE (11/26/2022) ???Hold Green Top - SPECIMEN DISCARDED AFTER 1 WEEK Lactate Level (11/25/2022) ???Lactate - 1.4 mmol/L ProBNP (11/25/2022) ???Nt-Probnp - 411 pg/mL Urinalysis w/hold for Urine Culture (11/25/2022) ???Appear/Color, Urine - YELLOW???Specific [place], Urine - 1.032???pH, Urine - 6.0???Albumin, Urine - 1+???Glucose, Urine - NEGATIVE???Ketones, Urine - 1+???Bilirubin, Urine - NEGATIVE???Hemoglobin,Urine - NEGATIVE???Nitrite, Urine - NEGATIVE???Leukocyte, Urine - NEGATIVE???Urobilinogen - 2 mg/dL? ?WBC's, Urine - 1 /HPF? ?RBC's, Urine - 1 /HPF? ?Bacteria - SLIGHT? ?Squamous Epith - <1 /HPF? ?Hyaline Cast - 1 LPF???Mucus - HEAVY???Hold Urine Culture - Testing available 48 hours from time ofcollection. Allergies (NKA means No Known Allergies) gabapentin??(Swelling) Onions Other Food Allergy??(N&V - Nausea and vomiting) penicillin sulfa drugs Problems Active Problems??(12) Acute ischemic stroke?? Benign hypertension?? CAD (coronary artery disease)?? Chronic lower back pain?? COPD without exacerbation?? Current smoker?? Diabetes mellitus?? Encephalopathy?? Frequent falls?? Macrocytic anemia?? CLEOPATRA on CPAP?? Vitamin B12 deficiency?? Education Materials Below is the list of Educational Leaflet Providered with your Discharge Instructions. Preventing Falls: How to Prepare and What to Do?? Preventing Falls: Make Your Health a Priority?? Preventing Falls: Are You at Risk of Falling??? Exercises to Prevent Falls?? Dehydration (Adult)?? Discharge Instructions for Hypernatremia?? Valuables and Belongings I fully understand and agree that [facility] accepts no responsibility for all my [...] Review of Valuable and Belonging List: With patient, With witness Date for Pt to Sign Valuables/Belongings: 11/29/22 12:30:00 ?? Other Discharge Information ? Case Management Discharge Plan?? Discharge Plan?? Discharge Agency Information?? Discharge Level of Care at Discharge: assisted facility Name of Agency #1: [facility] Discharge Transportation Arranged: [facility] [phone] Service Categories #1: Physical Therapy, Residential Discharge Nursing Homes/Rehab Facilities: [facility] ? Pulmonary Rehab Status?? Pulmonary Rehab Discharge Status?? CPAP/BiPAP Mask Type: Full CPAP/BiPAP Mask Size: Medium Respiratory Rate: 18 br/min ? Common Emergency [...] are strongly encouraged to quit. Please call [facility] Link at [phone] or [phone] ([phone]) or log in to [email or web address] for referrals to smoking cessation programs. ?? 833 Suicide & Crisis Lifeline is available 12/11 if you or someone you know needs to find a reason to keep living. By calling 836 you'll be connected to a skilled, trained counselor at a crisis center in your area. INPATIENT DISCHARGE INSTRUCTIONS SIGNATURE PAGE JOHN SHERMAN Location:[facility] Registration Date and Time:11/25/2022 22:56 EDT Primary Care Physician: Sonya Dee NP, Attending Physician: Charanjit SAVAGE, Cesia, I JOHN SHERMAN, have received the above patient education materials/instructions and have verbalized understanding. If ambulance or transport services are being used I further acknowledge being given a choice of service. ?? If you need to contact me, please call me at this number: . Patient/Thread Cutter Name: Patient/Thread Cutter Signature: Relationship to Patient: Witness Name/Signature: Date: * Tita Leach DO: PERFORM Event Display: Patient Education Leaflets Authored Date: [id number] Preventing Falls: How to Prepare and What to Do ?? [address] Preventing Falls: How to Prepare and What to Do Falling is not something you want to think about. But it can make a big difference to plan ahead. If you're prepared, you'll know how to get help. And you'll be less likely to panic if you fall. Thismeans you'll be able to do what's needed to get help right away. How to prepare ??? Have someone check on you daily, either in person or by phone. ??? Keep a list of emergency numbers near the phone. ??? Always have a way to call for help. Keep a cell phone with you at all times. Or talk with your healthcare provider about how to set up a home monitoring service. This involves wearing a small device around your neck or wrist. If you fall, you can press the button on the device. This alerts emergency responders. ??? Talk with your healthcare provider about anexercise program that's right for you. Regular exercise may reduce the risk of falling and the riskfor injury related to a fall. ??? Have good lighting in your home. Don't use throw rugs, because they can raise your risk of tripping and falling. Add grab bars in the bathroom to help reduce the risk of falling. Small changes can make your home safer. Talk with your healthcare provider about making your home safer. ?? What to do if you fall Above all, try to stay calm: ??? If you start to fall, try to relax your body. This will reduce theimpact of the fall. ??? After you fall, press your monitor button, or use your phone to call for help. ??? Don't funk to get up. First, make sure you're not hurt. ??? Roll onto your side, then crawl to a chair. Pull yourself up onto the chair slowly. ??? Get checked if you struck your head, lost consciousness, were confused afterward, or have any other concerns for injury. ??? Tell your healthcare provider that you fell. They can check you for injuries as needed, try to determine what made you fall, and help prevent you from falling again. ?? A note to family and friends If you're with a loved one when they start to fall, don't try to stop the fall. Ease the person to the floor carefully, so neither of you gets hurt. Don't leave the person alone. And don't try to move them, especially if they may have hurt their head or neck. Check for injuries. If help is needed right away, call 911. ?? Last Reviewed Date: 2022 ?? [employer]. All rights reserved. This information is not intended as a substitute for professional medical care. Always follow your healthcare professional's instructions. ?? * Tita Leach DO: PERFORM Event Display: Patient Education Leaflets Authored Date: [id number] Preventing Falls: Make Your Health a Priority ?? 42152 Preventing Falls: Make Your Health a Priority Having a health problem can make you more likely to fall. Taking certain kinds of medicines may also raise your risk for falls. So improving your health can help you lower your risk. Work with your healthcare provider to manage health problems and review your medicines. How chronic conditions increase your fall risk Health problems such as diabetes, high or low blood pressure, and arthritis are called chronic health conditions. They can be managed, but they don't go away. They may cause problems with movement, balance, or vision. And certain medicines you take for them may have side effects, such as dizziness or drowsiness. These side effects can also raise your fall risk. ?? Work with your healthcare provider Your healthcare provider can work with you to help prevent a fall. See your provider each year for a health exam. Go more often if you have symptoms such as leg numbness or dizziness that could raiseyour risk of falling. Let your provider know if you have a history of falls. Bring a list of your medicines with you to review with your provider. Discuss your nutrition and exercise routine. And askif you need any tests to check your risk of falling. ?? Review your medicines Even medicines you buy over the counter can cause side effects that lead to a fall. Common medicines that cause these side effects include blood pressure, heart, or pain medicines, and medicines for sleep and depression. If you use pain medicine, store it in a secure area, such as an upper cabinet in your kitchen or bathroom. Don't mix different pills in the same bottle. Always store and travel with medicines in their original containers with clear labels. This will reduce the chance of taking the wrong medicine or too much of a medicine. Taking the wrong dose of a medicine or taking the wrong medicine may cause side effects that can increase your risk of falling. The way your body reacts to medicines can also change as you age. So certain medicines that were fine in the past may cause side effects now. Your healthcare provider or pharmacist can help review your medicines and make changes if needed. ?? Get your eyes and ears checked Problems with vision or hearing can lead to falls. ??? Get your eyes checked at least once a year. Take time to adjust to new glasses. ??? Get your hearing checked at least every other year. ??? Haveyour healthcare provider check your inner ear for problems that may affect your balance. ?? Get the right nutrition If you don't get enough to eat or drink, you can become dizzy and fall. ??? Drink water throughout the day, even if you don't feel thirsty. Your sense of thirst decreases with age. ??? Eat breakfast.Plan regular meals and healthy snacks. ??? Ask your healthcare provider if you need supplements. These can help strengthen your bones and muscles to help prevent falls. They can also help prevent fractures if you do fall. ??? Don't smoke and limit how much alcohol you drink. ?? Stay as active as you can Staying active is one of the best things you can do to prevent falls. Keep in mind that doing too little can be as risky as doing too much. That's because not being active can make you weaker and more likely to fall. Balance, flexibility, strength, and endurance all come from exercise. They all play a role in preventing falls. Ask your healthcare provider if you have any activity limitations. Talk with your provider about different types and levels of exercises and which ones might be right foryou. ?? When to call your healthcare provider Call your healthcare provider if you fall. Call if you have any of these symptoms. Someone else mayneed to point them out to you: ??? Feeling lightheaded or dizzy ??? Losing your balance often or feeling unsteady on your feet ??? Feeling numbness in your legs or feet, or noticing a change in the way you walk ??? Having a steady decline in your memory or mental sharpness ?? Last Reviewed Date: 2021 ?? 9844-7306 [employer]. All rights reserved. This information is not intended as a substitute for professional medical care. Always follow your healthcare professional's instructions. ?? * Tita Leach DO: PERFORM Event Display: Patient Education Leaflets Authored Date: [id number] Preventing Falls: Are You at Risk of Falling? ?? 03120 Preventing Falls: Are You at Risk of Falling? As you get older, you're not as steady on your feet as you once were. And you may have health problems you didn't have when you were younger. So it's not surprising that older people are more likely to trip and fall. Falling can be very serious. It can change your overall health and quality of life. That's why it's important to be aware of your own risk of falling. The dangers of falling Falls are one of the main causes of injury in people over age 65. An older person who falls may take longer to get better than a younger person. And, after a fall, an older person is more likely to have problems that don't go away. So preventing falls can help you prevent serious health problems. ?? Are you at risk of falling? Answer these questions to rate your level of risk: ??? Have you fallen or stumbled in the last year? Are you over age 65? Are you ever dizzy or lightheaded with standing? Do you have a hard time getting in and out of the bathtub or on and off the toilet? Do you lean on objects to help you get around? Or do you use a cane or walker? Do you have vision or hearing problems? For example, do you need glasses or hearing aids? Do you have 2 or more long-lasting (chronic) healthconditions? Do you take 3 or more medicines? Have you felt depressed recently? Have youhad more trouble with your memory in recent months? Are there hazards in your home that might cause you to fall, such as loose rugs or poor lighting? Do you have a pet that jumps on you or might trip you? Have you stopped getting regular exercise? Do you have diabetes? Do you have a nervous system disease, such as Parkinson or Alzheimer disease? Do you drink alcohol? Do you walk barefoot or only in socks at home? ?? You can help prevent falls If you answered yes to any of the above questions, take steps to reduce your risk of a fall. Monitoring health conditions and keeping walkways in your home free of clutter are just two ways. Changing is sometimes easier said than done. But keep in mind that even small changes can make you less likely to fall. Ask for help to reduce risk of falling in your home. ?? Fear of falling It's normal to be scared of falling, especially if you've fallen before. But being afraid can actually make you more likely to fall. This is because: ??? Fear might cause you to become less active. Being less active can lead to a loss of strength and balance. ??? Fear can lead to isolation from others, depression, or the use of more medicines or alcohol. And all these things make falling even more likely. To stop the cycle, learn more about ways to prevent falling. Talk to your healthcare provider for more information. As you take control, you may find yourself feeling less afraid. ?? Last Reviewed Date: 2022 ?? 2276-9223 [employer]. All rights reserved. This information is not intended as a substitute for professional medical care. Always follow your healthcare professional's instructions. ?? Patient Care team information Care Team Personnel Name: Adelia Landry RN Position: [facility] RN Member Role: Primary [...] Care Nurse Name: Hien Hidalgo RN Position: [facility] RN Member Role: Primary Care Nurse Name: Phuong Balderas RN Position: [facility] SN RN Member Role: Primary Care Nurse Name: Evelyn Mcnulty RN Position: [facility] RN Member Role: Primary Care Nurse Name: Yanely Shanks RN Position: [facility] RN Member Role: Primary Care Nurse Name: Sonya Dee NP Position: [facility] PCO Associate Professional Member Role: PCP Address: Address: [address] [place] [address], [address] [place] [address]- Name: Siddhartha Andino RN Position: S RN Member Role: Primary Care Nurse Name: Pola Reid RN Position: [facility] RN Supshiela Member Role: Primary Care Nurse Name: Betzy Beckford RN Position: S RN Member Role: Primary Care Nurse Name: Gabriella Gonsales RN Position: S RN Member Role: Primary Care Nurse Name: Zully Jara Position: S RN Member Role: Primary Care Nurse Name: Yunior Bui RN Position: [facility] RN Member Role: Primary Care Nurse Name: Candace Liang RN Position: [facility] RN Member Role: Primary Care Nurse Name: Marci Padilla RN Position: [facility] RN Member Role: Primary Care Nurse Name: Florecita Ring RN Position: [facility] RN Member Role: Primary Care Nurse Name: Dedra Lezama Position: [facility] RN Member Role: Primary Care Nurse Name: Pat Fernando RN Position: [facility] RN Member Role: Primary Care Nurse Name: Randa Sagastume RN Position: [facility] RN Member Role: Primary Care Nurse Name: Mitra Patel Position: [facility] RN Member Role: Primary Care Nurse Name: Kacie Campbell RN Position: [facility] RN Member Role: Primary Care Nurse Name: Tammy Castillo RN Position: [facility] RN Member Role: Primary Care Nurse Name: Charito Vazquez RN Position: [facility] ED RN W/OE and Tasks Member Role: Primary Care Nurse Name: Dylan Bond RN Position: [facility] RN Member Role: Primary Care Nurse Name: Lydia Doherty RN Position: [facility] RN Member Role: Primary Care Nurse Name: Elie Davis RN Position: [facility] RN Member Role: Primary Care Nurse Name: Delfina Still RN Position: [facility] RN Member Role: Primary Care Nurse Name: Chandni Gibbons RN Position: [facility] SN RN Member Role: Primary Care Nurse Name: Brayden Elizabeth RN Position: [facility] RN Member Role: Primary Care Nurse Name: Viry Zacarias RN Position: [facility] RN Member Role: Primary Care Nurse Name: Kerri Cunha RN Position: [facility] Hospital Ship 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 Finisher Member Role: Primary Care Nurse Name: Atiya Mcintyre RN Position: [facility] RN Member Role: Primary Care Nurse Name: DonavanTH[facility]ENTERGaldino Attending Position: [facility] ED Medicine MD Name: Andreea Mcnulty Position: [facility] ED OA Charge Member Role: ED Associate Name: Darshana Anguiano RN Position: [facility] ED RN W/OE and Tasks Member Role: Patient Care Provider Name: Latia Mei Position: [facility] ED TA [facility] Name: Heather Kline Position: [facility] ED TA [facility] Member Role: Patient Care Provider Care Team Related Persons Name: MONTSE BRUNNER Address: [address] [address] Name: MONTSE CORRAL Address: [address] [address]
--- OUTSIDE RECORDS SUMMARY | 2023-04-11 15:22 | XMS_ITS | Continuity of Care Document ---
Author Name Unknown Organization [facility] Adult Address [address] [place] [address]- Care Team Providers Care Meat Specialist Name Role Phone Luiz SALAS, Sonya Primary Care Physician Encounter [facility] Date(s): 01/10/23 - 02/23/23 [facility] Adult [address] [place] [id number]- Attending Physician: Sonya Dee NP Allergies, Adverse [...] pneumococcal 23-valent vaccine 02/04/13 Recorded 1Result Comment: [facility]: [id number] Medications acetaminophen 325 mg oral tablet 650 [...] Confirmed Active 1angioplasty 2000; 3 stents at [facility] 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 [...] Care Nurse Name: Nereida Dobbins RN Position: [facility] RN Member Role: Primary Care Nurse Name: Gela Orosco RN Position: [facility] RN Member Role: Primary Care Nurse Name: Jessica Castrejon RN Position: [facility] RN Member Role: Primary Care Nurse Name: Hien Hidalgo RN Position: [facility] RN Member Role: Primary Care Nurse Name: Phuong Balderas RN Position: [facility] SN RN Member Role: Primary Care Nurse Name: Evelyn Mcnulty RN Position: [facility] RN Member Role: Primary Care Nurse Name: Yanely Shanks RN Position: [facility] RN Member Role: Primary Care Nurse Name: Sonya Dee NP Position: [facility] PCO Associate Professional Member Role: PCP Address: Address: [address] [place] [address], [address] [place] [address] Name: Siddhartha Andino RN Position: [facility] RN Member Role: Primary Care Nurse Name: Pola Reid RN Position: [facility] RN Supv Member Role: Primary Care Nurse Name: Betzy Beckford RN Position: [facility] RN Member Role: Primary Care Nurse Name: Susie Galicia RN Position: [facility] RN Member Role: Primary Care Nurse Name: Ezra Acuna RN Position: [facility] RN Member Role: Primary Care Nurse Name: Zully Jara Position: [facility] RN Member Role: Primary Care Nurse Name: Yunior Bui RN Position: [facility] RN Member Role: Primary Care Nurse Name: Candace Liang RN Position: [facility] RN Member Role: Primary Care Nurse Name: Marci Padilla RN Position: [facility] RN Member Role: Primary Care Nurse Name: Dedra Lezama Position: [facility] RN Member Role: Primary Care Nurse Name: Pat Fernando RN Position: [facility] RN Member Role: Primary Care Nurse Name: Marquita Siddiqui RN Position: [facility] RN Member Role: Primary Care Nurse Name: Lazara Krueger RN Position: [facility] RN Member Role: Primary Care Nurse Name: Randa Sagastume RN Position: [facility] RN Member Role: Primary Care Nurse Name: Mitra Patel Position: [facility] RN Member Role: Primary Care Nurse Name: Kacie Campbell NP Position: [facility] PCO Associate Professional Member Role: Primary Care Nurse Address: Address: [address] [place] [address] [facility] [place] [address]- [place] Name: Charito Vazquez RN Position: [facility] ED RN W/OE and Tasks Member Role: Primary Care Nurse Name: Dylan Bond RN Position: [facility] RN Member Role: Primary Care Nurse Name: Lydia Doherty RN Position: [facility] RN Member Role: Primary Care Nurse Name: Elie Davis RN Position: [facility] RN Member Role: Primary Care Nurse Name: Delfina Still RN Position: [facility] RN Member Role: Primary Care Nurse Name: Mary Wagner RN Position: [facility] RN Member Role: Primary Care Nurse Name: Chandni Gibbons RN Position: [facility] SN RN Member Role: Primary Care Nurse Name: Reanna Chow RN Position: [facility] RN Member Role: Primary Care Nurse Name: Brayden Elizabeth RN Position: [facility] RN Member Role: Primary Care Nurse Name: Viry Zacarias RN Position: [facility] RN Member Role: Primary Care Nurse Name: Kerri Cunha RN Position: [facility] Hospital Bail Agent Member Role: Primary Care Nurse Name: Atiya Mcintyre RN Position: [facility] RN Member Role: Primary Care Nurse Care Team Related Persons Name: IBETH CORRAL Address: home [address] [address] [facility] [address] [place] [address]
--- OUTSIDE RECORDS SUMMARY | 2023-04-11 15:22 | XMS_ITS | Continuity of Care Document ---
Author Name Unknown Organization [facility] Adult Address [address] [place] [address]- Care Team Providers Care Ceramic Designer Name Role Phone Luiz SALAS, Sonya Primary Care Physician [phone] Encounter [facility] Date(s): 11/20/21 - 12/20/21 [facility] Adult [address] [place] [id number]- Allergies, Adverse Reactions, Alerts Substance Reaction Severity [...] 05/02/21 10:38:00 EST, Route to Pharmacy Electronically, [facility]/pharmacy #[id number], Partial fill upon patient request if the [...] 11/07/20 Active 1angioplasty 2000; 3 stents at [facility] 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
--- OUTSIDE RECORDS SUMMARY | 2023-04-11 15:23 | XMS_ITS | Continuity of Care Document ---
Author Name Unknown Organization [facility] ter Address [address] [place] [id number]- Care Team Providers Care [employer] Founder Name Role Phone Luiz SALAS, Sonya Primary Care Physician Encounter [facility] Date(s): 12/12/22 - 12/18/[address] [address] Discharge Disposition: Disch/Trans to IP Rehab or unit w/in Hos Attending Physician: Love Starr MD Admitting Physician: Antonieta Landon DO Referring Physician: [...] pneumococcal 23-valent vaccine 02/04/13 Recorded 1Result Comment: [facility]: [id number] Medications albuterol-ipratropium 3 mg-0.5 mg/3 ml inhalation [...] oral tablet 5 mg, Tablet, By Mouth, 12/18/22 9:00:00 EDT Start Date: 12/18/22 Stop Date: 12/18/22 Status: Completed lisinopril 5 mg oral tablet [...] Confirmed Active 1angioplasty 2000; 3 stents at [facility] 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 S/P Elective Coiling of Unruptured Aneurysm with Subsequent Left-Sided Weakness: Acute nonhemorrhagic infarct in the RIGHT posterior frontal lobe: Results Radiology Reports * Exam Date Time Procedure Performing Provider Status 12/12/22 4:12 PM XR Femur 2 Views Right Mirella Valiente ; Auth (Verified) Notes: (XR Femur 2 Views Right) Reason For Exam: Pain RESULT: Femur 2 Views Right Femur 2 Views Right, 2 views Hx of Present Illness: Pt is coming from home , noticed that patient had a brief episode of confusion approx 1 hour ago afetr stated I want to go to the airport while looking out window, when EMS arrived pt was alert ,oriented x3 and answering all questions, denies; Reason: Pain; Clinical Question(s): Fracture COMPARISON: None. FINDINGS: No acute fracture. Mild diffusely decreased bone mineralization. [id number]-zj-[id number] degenerative changes at the hip joint and tricompartment osteoarthritis. No knee joint effusion. There is a small patellar enthesophyte. Calcified vascular atherosclerosis. IMPRESSION: No acute fracture. WSN: [id number] Ordering Physician: Maria Luz Michaels Dictated By: Karen Anderson MD Dictated Date/Time: 12/12/22 5:08 pm Reviewed By: Karen Anderson MD Signed By: Karen Anderson MD Signed Date/Time: 12/12/22 5:08 pm Transcribed By: ANDREAS Transcribed Date/Time: 12/12/22 5:06 pm * Exam Date Time Procedure Performing Provider Status 12/12/22 4:[address] Angio Neck Ewa Navarro; Zarina (Vicky robledo) Notes: (CT Angio Neck) Reason For Exam: Aneurysm, neck vessel(s);Other: RESULT: CT Angio Neck CT Angio Head, CT Angio Neck Hx of Present Illness: Pt is coming from home , noticed that patient had a brief episode of confusion approx. 1 hour ago after stated I want to go to the airport while looking out window, whenEMS arrived pt was alert ,oriented x3 and answering all questions, denies; Reason: Other:; Transient ischemic attack (TIA); Clinical Question(s): Other:; Hematoma Aneurysm / Other: [...] to optimize exposure parameters. RADIATION DOSE PARAMETERS: COMPARISON: Noncontrast CT head performed concurrently and the prior CTAs on 04/01/2022. FINDINGS: There is a 3 vessel arch. Mural calcified and noncalcified atherosclerotic plaques are seen along the visualized aortic arch and the supraaortic proximal great neck vessels. No hemodynamically significant stenosis. The right common carotid artery is normal in caliber. The right carotid bulb has mild mural calcifications extending to the right proximal internal carotid artery. The right proximal ICA shows 10% stenosis by NASCET criteria. The left common carotid artery shows no significant stenosis. The left carotid bulb has calcified and noncalcified atherosclerotic extending to the left proximal internal carotid artery. The left proximal ICA shows 65% stenosis by NASCET criteria. Right vertebral artery: Dominant. The mid V2 segment has a focal moderate stenosis. The rest is patent without stenosis. Left vertebral artery: Multiple areas of moderate to severe stenosis are again seen. Cervical spine: Multiple levels of spondylosis. Soft tissues and lung apices: The visualized upper lungs are clear. Bilateral thyroid lobes are normal. There is no definite abnormality throughout the soft tissue neck. [place] of [place]: Concurrent CT of head showed no acute pathology. Status post right MCA aneurysm coiling. A moderate cystic encephalomalacia is seen in the right frontal lobe extending to the right basal ganglia. Multiple old lacunar infarcts are seen within the basal ganglia and thalami. Generalized volume loss and bilateral periventricular hypodensities are noted. Status post bilateral lens extractions. There is a mucus retention cyst in the right maxillary sinus. Bilateral internal carotid arteries at the skull base have mural calcifications. No definite stenosis is seen. The right posterior communicating artery is. No posterior communicating artery aneurysm is seen. Status post right MCA bifurcation aneurysm coiling.. The adjacent area is obscured by the beam hardening artifact from the coiling mass. Otherwise no large recurrent aneurysm seen. The rest of the right MCA branches are patent. Bilateral ACAs, the left MCA and their branches are patent. No stenosisor vessel cut off is seen. The right vertebral artery is dominant. No stenosis. The left vertebral artery has focal calcifications causing moderate to severe stenosis. The vertebrobasilar junction is normal. The basilar arteryis patent. No stenosis or dissection is seen. There is no basilar tip aneurysm. There is a origin of right SOFT SHOE DANCER. Otherwise the radiation oncology therapist and their branches show no significant stenosis or vessel cut off. Mild stenosis is seen at the left P2 segment. The superior sagittal sinuses, the straight sinus, bilateral transverse and sigmoid sinuses: Patentwithout dural sinus thrombosis. IMPRESSION: Status post the right MCA bifurcation aneurysm coiling. No large recurrent aneurysm is seen although limited by beam hardening artifacts from the cord mass. No cutoff or high-grade stenosis of the major branches of the [place] of [place]. Focal areas of moderate to severe stenosis are seen at the left intracranial vertebral artery. The right proximal internal carotid artery show no significant stenosis by NASCET criteria. The left proximal internal carotid artery show no significant stenosis by NASCET criteria. The right cervical vertebral artery has a focal moderate stenosis at mid V2 segment. The rest showsno significant stenosis. The left cervical vertebral artery shows multiple areas of moderate to severe stenosis, unchanged. REFERENCE: NASCET Criteria: The degree of internal carotid stenosis is based on NASCET Criteria: Normal: No stenosis Mild: Less than 50% stenosis Moderate: 50-69% stenosis Severe: 70-99% stenosis Total occlusion: No detectable patent lumen. The report was cortext to Dr. Maria Luz Michaels at 4:50 PM and Debbie Berman at 16: 58 PM on 12/12/2022. WSN: [id number] Ordering Physician: Maria Luz Michaels Dictated By: Genaro Howard MD Dictated Date/Time: 12/12/22 5:01 pm Reviewed By: Genaro Howard MD Signed By: Genaro Howard MD Signed Date/Time: 12/12/22 5:01 pm Transcribed By: ANDREAS Transcribed Date/Time: 12/12/22 4:53 pm * Exam Date Time Procedure Performing Provider Status 12/12/22 4:[address] Angio Head Ewa Navarro; Auth (Vicky robledo) Notes: (CT Angio Head) Reason For Exam: Transient ischemic attack (TIA);Other: RESULT: CT Angio Head CT Angio Head, CT Angio Neck Hx of Present Illness: Pt is coming from home , noticed that patient had a brief episode of confusion approx. 1 hour ago after stated I want to go to the airport while looking out window, whenEMS arrived pt was alert ,oriented x3 and answering all questions, denies; Reason: Other:; Transient ischemic attack (TIA); Clinical Question(s): Other:; Hematoma Aneurysm / Other: [...] to optimize exposure parameters. RADIATION DOSE PARAMETERS: COMPARISON: Noncontrast CT head performed concurrently and the prior CTAs on 04/01/2022. FINDINGS: There is a 3 vessel arch. Mural calcified and noncalcified atherosclerotic plaques are seen along the visualized aortic arch and the supraaortic proximal great neck vessels. No hemodynamically significant stenosis. The right common carotid artery is normal in caliber. The right carotid bulb has mild mural calcifications extending to the right proximal internal carotid artery. The right proximal ICA shows 10% stenosis by NASCET criteria. The left common carotid artery shows no significant stenosis. The left carotid bulb has calcified and noncalcified atherosclerotic extending to the left proximal internal carotid artery. The left proximal ICA shows 65% stenosis by NASCET criteria. Right vertebral artery: Dominant. The mid V2 segment has a focal moderate stenosis. The rest is patent without stenosis. Left vertebral artery: Multiple areas of moderate to severe stenosis are again seen. Cervical spine: Multiple levels of spondylosis. Soft tissues and lung apices: The visualized upper lungs are clear. Bilateral thyroid lobes are normal. There is no definite abnormality throughout the soft tissue neck. [place]: Concurrent CT of head showed no acute pathology. Status post right MCA aneurysm coiling. A moderate cystic encephalomalacia is seen in the right frontal lobe extending to the right basal ganglia. Multiple old lacunar infarcts are seen within the basal ganglia and thalami. Generalized volume loss and bilateral periventricular hypodensities are noted. Status post bilateral lens extractions. There is a mucus retention cyst in the right maxillary sinus. Bilateral internal carotid arteries at the skull base have mural calcifications. No definite stenosis is seen. The right posterior communicating artery is. No posterior communicating artery aneurysm is seen. Status post right MCA bifurcation aneurysm coiling.. The adjacent area is obscured by the beam hardening artifact from the coiling mass. Otherwise no large recurrent aneurysm seen. The rest of the right MCA branches are patent. Bilateral ACAs, the left MCA and their branches are patent. No stenosisor vessel cut off is seen. The right vertebral artery is dominant. No stenosis. The left vertebral artery has focal calcifications causing moderate to severe stenosis. The vertebrobasilar junction is normal. The basilar arteryis patent. No stenosis or dissection is seen. There is no basilar tip aneurysm. There is a origin of right SOFT SHOE DANCER. Otherwise the radiation oncology therapist and their branches show no significant stenosis or vessel cut off. Mild stenosis is seen at the left P2 segment. The superior sagittal sinuses, the straight sinus, bilateral transverse and sigmoid sinuses: Patentwithout dural sinus thrombosis. IMPRESSION: Status post the right MCA bifurcation aneurysm coiling. No large recurrent aneurysm is seen although limited by beam hardening artifacts from the cord mass. No cutoff or high-grade stenosis of the major branches of the [place] of [place]. Focal areas of moderate to severe stenosis are seen at the left intracranial vertebral artery. The right proximal internal carotid artery show no significant stenosis by NASCET criteria. The left proximal internal carotid artery show no significant stenosis by NASCET criteria. The right cervical vertebral artery has a focal moderate stenosis at mid V2 segment. The rest showsno significant stenosis. The left cervical vertebral artery shows multiple areas of moderate to severe stenosis, unchanged. REFERENCE: NASCET Criteria: The degree of internal carotid stenosis is based on NASCET Criteria: Normal: No stenosis Mild: Less than 50% stenosis Moderate: 50-69% stenosis Severe: 70-99% stenosis Total occlusion: No detectable patent lumen. The report was cortext to Dr. Maria Luz Michaels at 4:50 PM and Debbie Berman at 16: 58 PM on 12/12/2022. WSN: [id number] Ordering Physician: Maria Luz Michaels Dictated By: Genaro Howard MD Dictated Date/Time: 12/12/22 5:01 pm Reviewed By: Genaro Howard MD Signed By: Genaro Howard MD Signed Date/Time: 12/12/22 5:01 pm Transcribed By: ANDREAS Transcribed Date/Time: 12/12/22 4:53 pm * Exam Date Time Procedure Performing Provider Status 12/12/22 4:[address] Head/Brain W/O Contrast Castro Navarro; Auth (Verified) Notes: (CT Head/Brain W/O Contrast) Reason For Exam: Transient ischemic attack (TIA);Other: RESULT: CT Head/Brain W/O Contrast CT Head/Brain W/O Contrast INDICATION: Hx of Present Illness: Pt is coming from home , noticed that patient had a brief episode of confusion approx 1 hour ago afetr stated I want to go to the airport while looking out window, when EMS arrived pt was alert ,oriented x3 and answering all questions, denies; Reason: Other:; Transient ischemic attack (TIA); Clinical Question(s): Other:; Hematoma Infarction; Order Comment: TECHNIQUE: Noncontrast head CT using axial technique and reconstructed in axial and coronal planes.Iterative reconstruction techniques are used to optimize dose and image quality. COMPARISON: 11/25/2022 FINDINGS: Cadastral Engineer view findings, lines and tubes: None. BRAIN AND EXTRA-AXIAL SPACES: No parenchymal hemorrhage, midline shift, or mass effect. Unchanged encephalomalacia with stigmata of previous infarct of the right frontal lobe and posttreatment changes at the right MCA. Previous bilateral lacunar basal ganglia infarcts. No acute infarct. Negative insular ribbon sign. Atherosclerotic vascular calcification of the carotid arteries but negative hyperdense vessel sign. Moderate prominence of the ventricles and sulci consistent with parenchymal volume loss. Moderate low-density white matter changes. No subarachnoid hemorrhage. No subdural or epidural collection. CALVARIUM, SKULL BASE, AND SOFT TISSUES: No fractures or suspicious bony lesions. Mucous retention cyst in the right maxillary sinus. The paranasal sinuses and mastoid air cells are otherwise clear. Status-post bilateral lens extraction. The extracranial soft tissues are unremarkable. IMPRESSION: No acute intracranial abnormality or change from 12/12/2022. Stigmata of previous infarcts including at the right frontal lobe with encephalomalacia. WSN: [id number] Ordering Physician: Maria Luz Michaels Dictated By: Karen Anderson MD Dictated Date/Time: 12/12/22 4:37 pm Reviewed By: Karen Anderson MD Signed By: Karen Anderson MD Signed Date/Time: 12/12/22 4:37 pm Transcribed By: ANDREAS Transcribed Date/Time: 12/12/22 4:26 pm * Exam Date Time Procedure Performing Provider Status 12/12/22 4:12 PM Chest 2 Views Frontal and Lat Mirella Valiente; Auth (Verified) Notes: (Chest 2 Views Frontal and Lat) Reason For Exam: TIA, C/Q CHF;Other: RESULT: Chest 2 Views Frontal and Lat Chest 2 Views Frontal and Lat Hx of Present Illness: Pt is coming from home , noticed that patient had a brief episode of confusion approx 1 hour ago afetr stated I want to go to the airport while looking out window, when EMS arrived pt was alert ,oriented x3 and answering all questions, denies; Reason: Other:; TIA, C Q CHF; Clinical Question(s): Other: COMPARISON: 11/25/2022. FINDINGS: LINES AND TUBES: None. LUNGS AND PLEURA: Clear lungs. Normal pulmonary vascularity. No pleural effusion. No pneumothorax. HEART, MEDIASTINUM AND MAHESH: Heart is normal in size. Normal mediastinal and hilar contour. BONES AND SOFT TISSUES: No acute abnormality. Moderate degenerative change lower thoracic spine. IMPRESSION: No acute abnormality. No significant interval change. WSN: [id number] Ordering Physician: Maria Luz Michaels Dictated By: Aramis Chamberlain MD, V Dictated Date/Time: 12/12/22 4:16 pm Reviewed By: Aramis Chamberlain MD, V Signed By: Aramis Chamberlain MD, V Signed Date/Time: 12/12/22 4:16 pm Transcribed By: ANDREAS Transcribed Date/Time: 12/12/22 4:14 pm Vital Signs Most recent to oldest [Reference Range]: 1 2 3 Height 177.8 cm (12/17/22 11:36 PM) 177.8 cm (12/17/22 4:33 PM) 177.8 cm (12/17/22 11:55 AM) Weight 77.7 kg (12/12/22 10:00 PM) Oxygen Saturation [94-100 %] 96 % (12/18/22 11:48 AM) 96 % (12/18/22 7:53 AM) 98 % (12/18/22 3:00 AM) Pulse Rate [55-90 bpm] 62 bpm (12/18/22 11:48 AM) 59 bpm (12/18/22 7:53 AM) 58 bpm (12/18/22 3:00 AM) Body Mass Index [18.5-24.99 kg/m2] 24.58 kg/m2 (12/12/22 10:00 PM) Blood Pressure [90-138/55-84 mm Hg] 111/62mm Hg (12/18/22 11:48 AM) 127/75mm Hg (12/18/22 8:32 AM) 127/75mm Hg (12/18/22 7:53 AM) Respiratory Rate [16-30 br/min] 20 br/min (12/18/22 11:48 AM) 20 br/min (12/18/22 7:53 AM) 18 br/min (12/18/22 3:00 AM) Temperature [96.8-100.4 DegF] 97.3 DegF (12/18/22 11:48 AM) 97.8 DegF (12/18/22 7:53 AM) 97.7 DegF (12/18/22 3:00 AM) Mode of Delivery (Oxygen) Room air (12/18/22 11:48 AM) Room air (12/18/22 7:53 AM) Room air (12/18/22 3:00 AM) Blood pressure sites Arm, right (12/18/22 11:48 AM) Arm, right (12/18/22 7:53 AM) Arm, right (12/18/22 3:00 AM) Temperature Route Temporal (12/18/22 11:48 AM) Temporal (12/18/22 7:53 AM) Temporal (12/18/22 3:00 AM) Dry Weight 77.7 kg (12/12/22 10:00 PM) Social History Social History Type Response Smoking Status 10 or more cigarette s (1/2 pack or more)/day in last 30 days; Interested in cessation: No; Patient wants NRT during admission Yes; Tobacco use times per day: 1PPD; Number of years: 53; Total pack years: 53; Started at age: 13; entered on: 03/08/22 Sex Admission evaluation note * Jeffrey SAVAGE, Sivan: MODIFY, PERFORM Event Display: Admission Note Authored Date: [id number] Patient: ??JOHN SANDHU ? Age:??67 Years?Sex:??Male?:??[id number]?? 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 ?? Patient's life partner Keenan was contacted for collateral information. She states around 9 AM today,patient was in his usual state of health and stated that he wanted to go to take a nap. She went tocheck up on him and he was tangled up in his bedsheets, stating I have to go to the airport multiple times. Although patient was persistent, he was convinced to stay at home. Eventually, patient was aware that something was not right and agreed to go to the hospital. Partner states that [facility] and had noticed a large bump on his right hip that was not worked up. She states that he has had multiple falls at rehab and has had multiple falls over the past few years as well. She states that since he had his aneurysm and stroke, he has been declining in health for the past year. Per patient's history, he states that he felt spaced out earlier today and felt some dizziness. He does not recall other parts of the event but knew he had to present to the hospital to get checkedout. ?? Upon arrival to the ED, patient was afebrile, normotensive, saturating well on room air. Labs revealed chronic anemia hemoglobin 13.3, electrolytes within normal limits, high-sensitivity troponin 14,UA unremarkable. Chest x-ray showed no acute abnormality. X-ray of his right femur showed no acute fracture only mild to moderate degenerative changes of the hip joint, calcified vascular atherosclerosis. CT head and brain showed no acute intracranial abnormality or change. She had stigmata of previous infarcts. CT angio head and neck showed persistent multiple areas of moderate to severe continued stenosis of the left cervical vertebral artery, moderate stenosis at mid V2 segment of right cervical vertebral artery, focal areas of moderate to severe stenosis at left ventricular vertebral artery, unchanged from prior. In the ED he was given a 500 cc bolus. ?? Upon my evaluation, patient was resting in bed. he appears to be at his baseline mentation. He just endorses pain at the site of his right hip where a large hematoma was present. He endorses a smoking history, 1 pack a day since 15 years old, currently smoking 4 to 5 cigarettes a day. He denies alcohol or recreational drug use. He states he has not been eating well for the past couple of days and is looking forward to having a meal soon. He denies any chest pain, shortness of breath, nausea,vomiting, abdominal pain, lower extremity swelling, headaches, dizziness, vision changes at this time. Patient will be admitted for further evaluation and management of frequent falls, altered mentalstatus. Review of Systems A full review of systems was completed and is otherwise negative except as mentioned in history of present illness. Objective Vital Signs?? Temperature: 97.6 DegF (12/12/22 22:00:00) Temperature Route: Oral (12/12/22 22:00:00) Pulse Rate: 57 bpm (12/12/22 22:00:00) Respiratory Rate: 18 br/min (12/12/22 22:00:00) Systolic Blood Pressure: 130 mm Hg (12/12/22 22:00:00) Diastolic Blood Pressure:??99 mm Hg??High (12/12/22:00:00) Blood pressure sites: Arm, right (12/12/22:00:00) Mean Arterial Pressure: 109 mm Hg (12/12/22 22:00:00) Pulse Pressure: 31 mm Hg (12/12/22 22:00:00) Oxygen Saturation: 98 % (12/12/22 21:41:00) Mode of Delivery (Oxygen): Room air (12/12/22 21:41:00) Early Warning Score: 2 (12/12/22 22:31:10) ? Physical Exam General: Patient in no acute distress?? HEENT: normocephalic, atraumatic Respiratory: bilateral equal air entry, clear to auscultation with no wheezes or crackles. CVS: regular rate and rhythm, S1 and S2 present, no murmurs. No JVD.?? Abdomen: soft, non tender, non distended, bowel sounds present. Extremities: No edema noted bilaterally. Large 10 cm hematoma present over right lateral thigh. Neuro: alert and oriented x3. Moving all extremities spontaneously. Following simple commands. 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 Patient currently at his baseline mentation but will be admitted for further evaluation and management of frequent falls, altered mental status. ? Frequent falls Altered mental status Hx of unruptured R MCA aneurysm s/p coiling complicated by ischemic stroke TIA According to patient and life partner, patient has had multiple falls and general decline since hisCVA. Patient also states that he has not been eating or drinking well for the past few days. Unlikely to be acute CVA as patient appears to be at his baseline mentation currently, AAO x4. Head and neck imaging largely unchanged. ?? Plan: ?Neurochecks every 4 hours ?Neurology consulted, appreciate recommendations ? ??BP goal < 180 ?Continue to encourage adequate oral intake ?Cardiac telemetry ?PT eval ? Hematoma Large 10 cm hematoma present over right lateral thigh. HH currently stable.?? X-ray femur did not show any fractures, effusions, dislocations. Showed degenerative changes. ?? Plan: ?Continue to monitor CBC, signs of bleeding, changes in hematoma size ? Chronic, Stable, and Resolved: Hypertension: Continue lisinopril Depression: Continue sertraline Diabetes mellitus: Hold metformin. Start insulin sliding scale, POC checks, hypoglycemia emergency measures Neuropathy: Continue pregabalin Vascular dementia: Continue thiamine ? Quality Measures: Diet: Diabetic DVT prophylaxis: Lovenox Code Status: FULL ? Sivan Murphy MD Internal Medicine PGY2 Pager: [phone] ?? Patient seen and management discussed with attending physician, Dr. Gan ?? Histories Allergies Allergies ?(Active and Proposed Allergies [...] Electronic Cigarette/Vaping Details:??Electronic Cigarette Use: Never. ? Psychosocial History ??On sertraline for depression, denies any SI/HI at this time ? Family History Mother (): Alzheimer's disease Father (): Cancer; Heart attack ? Medications Home Medications Albuterol/Ipratropium (albuterol-ipratropium 3 mg-0.5 mg/3 ml inhalation solution)?3?Milliliter?BAND Nebulizer?Every 4 hours?as needed?Wheezing/Shortness of Breath Ascorbic Acid (Vitamin C 500 mg oral tablet)?1?tab(s)?500?Milligram?By Mouth?Daily?(Last Filled & delivered 10/18/22 for 90 days) Aspirin (Aspirin Low Dose [...] oral tablet)?75?Milligram?1?tablet?By Mouth?Daily?(Last Filled & Delivered 07/28/22 ??for 90 days) Docusate-Senna (Docusate/Senna Tablet)?1?tab(s)?By Mouth?2 [...] Mellitus E11.9 Durable Medical Equipment (Freestyle [employer]ite [employer])?See Instructions?for 30?Days?Use to check blood sugar three times a day DX: Diabetes Mellitus E11.9 Lisinopril (lisinopril 5 mg oral tablet)?5?Milligram?1?tablet?By Mouth?Daily?(Last [...] delivered 10/10/22 28 for 28 days) ? Results Abnormal Labs ?? BLOOD COUNT & DIFF ??Abs. Imm Gran ??0.0 k/mm3 () ??12/12/2022 14:08 ??Abs. NRBC ??0.0 k/mm3 () ??12/12/2022 14:08 ??Hct ??39.4 % (Low) ??12/12/2022 14:08 ??Hgb ??13.3 Gm/dL (Low) ??12/12/2022 14:08 ??Imm Gran ??0.3 % () ??12/12/2022 14:08 ??MCV ??95.2 femtoliters (High) ??12/12/2022 14:08 ??MPV ??8.8 femtoliters (Low) ??12/12/2022 14:08 ??Nucleated RBC (Automated) ??0.0 #/100 WBC'S () ??12/12/2022 14:08 ??RBC ??4.14 m/mm3 (Low) ??12/12/2022 14:08 ??RDW-SD ??41.1 femtoliters () ??12/12/2022 14:08 ? CARDIAC ??High Sensitivity Troponin (HSTnT) ??14 ng/L () ??12/12/2022 16:25 ? CHEM GENERAL ??AG Ratio ??2.1 () ??12/12/2022 14:08 ??Creatinine-Blood ??0.5 mg/dL (Low) ??12/12/2022 14:08 ??Estimated GFR Creatinine ??114 ML/MIN/1.73 M2 () ??12/12/2022 14:08 ??Glucose Level ??128 mg/dL (High) ??12/12/2022 14:08 ? TOXICOLOGY/TDM ??Ethanol, Serum or Plasma ??NONE DETECTED mg/dL () ??12/12/2022 14:08 ? UA/URINALYSIS ??Albumin, Urine ??1+ (Abnormal) ??12/12/2022 19:02 ??Appear/Color, Urine ??YELLOW () ??12/12/2022 19:02 ??Bilirubin, Urine ??NEGATIVE () ??12/12/2022 19:02 ??Glucose, Urine ??NEGATIVE () ??12/12/2022 19:02 ??Hemoglobin, Urine ??NEGATIVE () ??12/12/2022 19:02 ??Hold Urine Culture ??Testing available 48 hours from time of collection. () ??12/12/2022 19:02 ??Ketones, Urine ??NEGATIVE () ??12/12/2022 19:02 ??Leukocyte, Urine ??NEGATIVE () ??12/12/2022 19:02 ??Mucus ??HEAVY /LPF () ??12/12/2022 19:02 ??Nitrite, Urine ??NEGATIVE () ??12/12/2022 19:02 ??Specific [place], Urine ??>1.050 (High) ??12/12/2022 19:02 ??Urobilinogen ??4 mg/dL (Abnormal) ??12/12/2022 19:02 ? VIROLOGY ??COVID-19 by RT-PCR ??NEGATIVE () ??12/12/2022 17:39 ? Note: Critical results are displayed in red. ? * Juancho Gan MD: PERFORM Event Display: Admission Note Authored Date: [id number] ??Attending Attestation: I have seen and evaluated this patient.?? I have discussed the case and its management with the resident and agree with the findings and arin documented in the resident's note.?? I?? will continue to provide care to this patient till 7 AMof the admitting date. 67-year-old male with a past medical history of dementia, right MCA aneurysm s/p coiling, left residual?? weakness on Plavix, CAD, diabetes mellitus type 2 [id number], hypertension who didcome with a complaint of altered mental status.?? No signs or symptoms of infectious etiology.?? CTof the head ruled out any acute intracranial pathology.?? CT angiogram of head and neck showed no cutoff or high-grade stenosis.?? He was back to his baseline.?? Etiology of altered mental status??? Unlikely CVA will follow-up with neurology for further recommendation.?? We will hold the MRI of thebrain for now.?? We will have delirium precaution.?? Avoid anticholinergics, benzodiazepines, and op iates. Avoid restraints. Family at bedside as much as possible. Frequent reorientation. Constant rn psych as needed . OOB to chair for meals,?maintain hydration. Close monitoring for constipation and urinary retention. Room bright during day, and dim at night. Uninterrupted sleep at night. Ambulate with assistance as possible . EKG study * Event Display: ECG 12-Lead Authored Date: Please click on pdf link to open report * Event Display: ECG 12-Lead Authored Date: Ventricular Rate: 69 BPM Atrial Rate: 69 BPM P-R Interval: 156 ms QRS Duration: 134 ms Q-T Interval: 422 ms QTC Calculation(Bazett): 452 ms P [place]: 81 degrees R [place]: 141 degrees T [place]: 47 degrees Normal sinus rhythm Right bundle branch block Abnormal ECG When compared with ECG of 25-NOV-2022 19:37, Premature atrial complexes are no longer Present Questionable change in QRS axis Confirmed by ELIE CEDENO ([id number]) on 12/13/2022 9:12:47 AM [place]: ELIE CEDENO [facility] Progress note * Ezra Acuna RN: VERIFY, PERFORM, SIGN Event Display: [facility] Authored Date: [id number] Patient: JOHN SANDHU Age: 67 years Sex: Male : 1955 Associated Diagnoses: None Author: Ezra Acuna RN Findings Problem Related to Alteration in Neurological : Alteration in Neurological Function/new 12/18/2022 9:00 EDT Alteration in Neuro status Related to Acute Stroke (CVA) Goals & Outcomes, Neurological Pt will be hemodynamically stable, Pt will be Neurologically stable, Pt will become pain free with appropriate intervention, Resolved problem, Goals/Outcomes met Interventions, Neurological Assess/monitor for abnormal posturing, Assess/monitor for increased Intracranial Pressure, Assess/monitor VS per unit standards & prn, Collaborate w/ provider to implement appropriate guidelines, Emergency airway equipment at bedside, Maintain patient safety if unsteady gait, Monitor for headaches, nausea, vomiting, Teach & encourage deep breath & cough exercises, Teach pt/caregiver discharge plan & follow up care, Teach pt/caregiver on plan of care, treatment, s/s & meds Goals/Interventions, Neurological Yes Neurological, Problem Start 12/12/2022 22:00 Reviewed plan with, Neurological Patient Patient Progression, Neurological Pt progressing according to plan . Nursing Data Vital Signs : VITAL SIGNS SECTION 12/18/2022 7:53 EDT Early Warning Score 2.00 12/18/2022 7:53 EDT Temperature 97.8 DegF Temperature Route Temporal Pulse Rate 59 bpm Respiratory Rate 20 br/min Systolic Blood Pressure 127 mm Hg Diastolic Blood Pressure 75 mm Hg Blood pressure sites Arm, right Mean Arterial Pressure 92 mm Hg Pulse Pressure 52 mm Hg Oxygen Saturation 96 % Mode of Delivery (Oxygen) Room air . Evaluation Pt A&Ox4, VSS, denies pain at this time. Had BM 12/18. Able to roll in bed with 1 assist. Pt will be going to discharge unit for discharge at 1pm. Call zamudio within reach and safety measures maintained. Purposeful rounding done. See CIS for full biophysical. . Discharge Information Case Management Discharge Plan : Case Management Discharge Plan Data 12/18/2022 10:41 EDT Discharge Level of Care at Discharge group home facility Discharge Nursing Homes/Rehab Facilities [facility] Discharge Transportation Arranged [facility] [address] [facility] [phone] Discharge Arranged Transport Date/Time 12/18/2022 13:00 Mode of Transportation Arranged Ambulance Name of Agency #1 [facility] Service Categories #1 Occupational Therapy, Physical Therapy, Senior Care Service Comments #1 [facility] Name of Person Notified of Transfer Patient and Life Partner [facility] Discharge : Rehab Discharge Index 12/14/2022 10:31 EDT Comments on treatment indicated [address] [facility] PMH of vascular dementia, R MCA aneurysm coiling, CVA with residual L deficits, NIDDM2, HTN. P/w AMS. WBAT, fall risk. R hip pain, x-ray negative. PT f/u for ther ex, bed mob, balance, txfrs, gait, stairs. Rec rehab. Distance pt will ambulate 20' c walker Full chart review completed Yes Hospital course Hospital course Other findings Other findings Plan of care PT Gait training, Transfer training, Therapeutic exercise, Functional Activities, Balance training, Neuromuscular education 12/14/2022 9:46 EDT Comments on treatment indicated OT to address ADL's, transfers, safety Full chart review completed Yes Hospital course Please see comment Transfer tub/shower OT Plan Min assist * Donald Patel RN: PERFORM, SIGN, VERIFY Event Display: Progress Note Hospital Authored Date: [id number] Patient: JOHN SANDHU Age: 67 years Sex: Male : 1955 Associated Diagnoses: None Author: Donald Patel RN Findings Problem Related to Alteration in Neurological : Alteration in Neurological Function/new 12/17/2022 20:00 EDT Alteration in Neuro status Related to Acute Stroke (CVA) Goals & Outcomes, Neurological Pt will be hemodynamically stable, Pt will be Neurologically stable, Pt will become pain free with appropriate intervention, Resolved problem, Goals/Outcomes met Interventions, Neurological Assess/monitor for abnormal posturing, Assess/monitor for gaze pattern/extraocular movements, Assess/monitor for increased Intracranial Pressure, Assess/monitor neurologicstatus, Assess/monitor VS per unit standards & prn, Call/Report variances in assessments to provider, Collaborate w/ provider to implement appropriate guidelines, Collaborate with Nutrition, Collaborate with provider re: medication regime, Document & Monitor O2 Sats; Administer O2 as ordered, Emergency airway equipment at bedside, If no bowel movement in 3 days activate bowel regime, Keeppatient's head & body in good alignment, Maintain normothermia, report temp >101.5 F, Maintain patient safety if unsteady gait, Maintain strict intake & output, Monitor Fluid & Electrolytes, Serum Osmolarity, Monitor for headaches, nausea, vomiting, Monitor speech fluency, aphasia, word finding difficulty, Physical assessment per unit standards, Provide emotional support to Pt/caregiver, Teach & encourage deep breath & cough exercises, Teach and encourage use of Incentivespirometer, Teach pt/caregiver discharge plan & follow up care, Teach pt/caregiver on plan of ca re, treatment, s/s & meds, Teach pt/caregiver on use of pain scale BH Goals/Interventions, Neurological Yes Neurological, Problem Start 12/12/2022 22:00 Reviewed plan with, Neurological Patient Patient Progression, Neurological Pt progressing according to plan . Nursing Data Cardiac Data. : Cardiac Data. 12/17/2022 20:36 EDT Cardiovascular Symptoms None Nail Bed Color, Fingers Cobb Nail Bed Color, Toes Cobb Clubbing Present No Skin Temperature Upper Extremities Warm Skin Temperature Lower Extremities Warm Heart Sounds S1, S2 Pacemaker No Cardiac Rhythm Normal sinus rhythm Capillary Refill < 3 seconds Radial Pulse, Left Normal Radial Pulse, Right Normal Dorsalis Pedis Pulse, Left Normal Dorsalis Pedis Pulse, Right Normal ekg monitor tech Yes Cardiovascular WNL except . Gastrointestinal Data. : Gastrointestinal Data. 12/17/2022 20:42 EDT Bowel Sounds All Quadrants Present Last Bowel Movement 12/17/2022 Normal Bowel Pattern Every other day 12/17/2022 20:36 EDT Gastrointestinal Symptoms Other: mixed incontinence Abdomen Soft, Non-tender Bowel Sounds LUQ Present Bowel Sounds RUQ Present Bowel Sounds LLQ Present Bowel Sounds RLQ Present Last Bowel Movement 12/17/2022 GI WNL except Normal Bowel Pattern Every other day . Genitourinary Data. : Genitourinary Data. 12/17/2022 20:36 EDT Genitourinary Symptoms Other: mixed incontinence Bladder distention Absent Urine Color Yellow Urine Description Clear WNL except . Neurological Data. : Neurological Data. 12/18/2022 0:00 EDT Neurological Assessment Status Unchanged from recorder's assessment 12/17/2022 20:36 EDT Neurological Symptoms Alteration in speech quality, Altered sensation or tingling, Difficulty swallowing, Unsteady gait/Ataxia, Weakness or loss of muscle strength Level of Consciousness Full Consciousness Orientated to person, place, time Person, Place, Time, Event Hallucinations None Facial Symmetry Intact Characteristics of Speech Clear and normal Pupil description, left Regular Pupil description, right Regular Pupil reaction, left Brisk Pupil reaction, right Brisk Strength LUE 5-Active movement against gravity & full resistance Strength RUE 5-Active movement against gravity & full resistance Strength LLE 4-Active movement against gravity & some resistance Strength RLE 4-Active movement against gravity & some resistance Tone LUE Normal Tone RUE Normal Tone LLE Normal Tone RLE Normal Sensation LUE Intact Sensation RUE Intact Sensation LLE Intact, Diminished Sensation RLE Intact, Diminished Movement LUE Spontaneous Movement RUE Spontaneous Movement LLE Spontaneous Movement RLE Spontaneous Response Eye Opening Spontaneously Motor Response-Adult Obeys commands Verbal Response-Adult Oriented and converses Nelida Coma Score 15 Pain Interventions Non-pharmacological, Pharmacological, PRN medication, Repositioning, Rest Neuro WNL except Eyes and Movements Conjugate gaze: Move in same direction at same speed Swallow - Neuro Normal . Respiratory/Pulmonary Data. : Respiratory/Pulmonary Data. 12/17/2022 23:36 EDT Mode of Delivery (Oxygen) Room air 12/17/2022 20:42 EDT Respiratory Treatment(s) Cough and deep breathe, Incentive spirometry 12/17/2022 20:36 EDT Respiratory Symptoms Dyspnea with exertion Respiratory effort Unlabored Chest expansion Symmetrical Accessory Muscles use No Cough No cough Respiratory pattern Regular Left Upper Lobe Breath Sounds Clear Right Upper Lobe Breath Sounds Clear Right Middle Lobe Breath Sounds Clear Left Lower Lobe Breath Sounds Clear Right Lower Lobe Breath Sounds Clear Respiratory distress Mild Respiratory WNL except . Narrative/Incidental P: See plan of care. I: See interventions. E: Upon initial assessment, patient alert and orientated x4. Endorses dizziness while standing. Complains of bilateral feet numbness and pain. Patient on the tele monitor showing NSR. Denies chest pain and discomfort. No edema noted. Mixed incontinence noted. LBM 12/17. Premo-fit placed. Tolerating diet. Skin is intact, bruising noted on bilateral hips. Patient is resting and safety maintained. Please see [facility] CIS ETC for further assessments and data, thank you. . Discharge Information Rehabilitation Discharge : Rehab Discharge Index 12/14/2022 10:31 EDT Comments on treatment indicated 67 y.o. M wtih PMH of vascular dementia, R MCA aneurysm coiling, CVA with residual L deficits, NIDDM2, HTN. P/w AMS. WBAT, fall risk. R hip pain, x-ray negative. PT f/u for ther ex, bed mob, balance, txfrs, gait, stairs. Rec rehab. Distance pt will ambulate 20' c walker Full chart review completed Yes Hospital course Hospital course Other findings Other findings Plan of care PT Gait training, Transfer training, Therapeutic exercise, Functional Activities, Balance training, Neuromuscular education 12/14/2022 9:46 EDT Comments on treatment indicated OT to address ADL's, transfers, safety Full chart review completed Yes Hospital course Please see comment Transfer tub/shower OT Plan Min assist * Priscilla Correa RN: PERFORM, MODIFY, SIGN, VERIFY Event Display: Progress Note Hospital Authored Date: [id number] Patient: JOHN SANDHU Age: 67 years Sex: Male : 1955 Associated Diagnoses: None Author: Priscilla Correa RN Findings Problem Related to Alteration in Neurological : Alteration in Neurological Function/new 12/17/2022 13:00 EDT Alteration in Neuro status Related to Acute Stroke (CVA) Goals & Outcomes, Neurological Pt will be hemodynamically stable, Pt will be Neurologically stable, Pt will become pain free with appropriate intervention, Resolved problem, Goals/Outcomes met Interventions, Neurological Assess/monitor neurologic status, Assess/monitor VS per unit standards & prn, Call/Report variances in assessments to provider, Maintain HOB at least 30 deg, Maintain patient safety if unsteady gait, Monitor for headaches, nausea, vomiting, Monitor speech fluency, aphasia, word finding difficulty, Physical assessment per unit standards, Provide emotional support to Pt/caregiver, Teach pt/caregiver discharge plan & follow up care, Teach pt/caregiver on plan ofcare, treatment, s/s & meds Goals/Interventions, Neurological Yes Neurological, Problem Start 12/12/2022 22:00 Reviewed plan with, Neurological Patient Patient Progression, Neurological Pt progressing according to plan . Nursing Data Neurological Data. : Neurological Data. 12/17/2022 9:00 EDT Tongue Disposition Midline Neurological Symptoms Alteration in speech quality, Difficulty swallowing, Weakness or loss of muscle strength Level of Consciousness Full Consciousness Orientated to person, place, time Person, Place, Time Hallucinations None Characteristics of Speech Other: mumbled soft spoke Swallowing Difficulty Pills, Solids Pupil description, left Regular Pupil description, right Regular Pupil reaction, left Brisk Pupil reaction, right Brisk Strength LUE 5-Active movement against gravity & full resistance Strength RUE 5-Active movement against gravity & full resistance Strength LLE 4-Active movement against gravity & some resistance Strength RLE 4-Active movement against gravity & some resistance Tone LUE Normal Tone RUE Normal Tone LLE Normal Tone RLE Normal Sensation LUE Intact Sensation RUE Intact Sensation LLE Intact Sensation RLE Intact Movement LUE Spontaneous, To command, Flexes to pain Movement RUE Spontaneous, To command, Flexes to pain Movement LLE Spontaneous, To command, Flexes to pain Movement RLE Spontaneous, To command, Flexes to pain Gait Unable to assess Neuro WNL except Swallow - Neuro Normal . Evaluation Pt sleepy arouses easy to voice, speech mumbled Pt AOx4 waxes and wanes, face symmetrical tongue midline, Pt denies PETE, reports occasional dizziness denies vision changes. BBUE 08/24 BKe 07/25 turned andrepo frequently. awake overnight monitor in place. Lung sounds rhonchi, able to cough and clear, pt denies SOB and chest pain. O2 sat 97-98% RA, resp18. Abdomen soft non tender, last BM 12/11 bowel medicationgiven, Pt occasional incontinence noted, bladder scan volume 178 Good p.o. intake, 1:1 feed paged for speech therapy to assess, pills whole x1 at a time in pudding, some swallowing difficult noted, holding food in mouth, occasional cough Pt reports pain 8/10 to feet, N,T to finger tips and toes. Bruising noted to right hip. Bed in low position, call zamudio with in reach, bed alarm on for safety hourly rounding, safety maintained. Consult note * Celina SAVAGE, Kristine: MODIFY, MODIFY, MODIFY, MODIFY, MODIFY, MODIFY, MODIFY, MODIFY, MODIFY, PERFORM Event Display: Consultation Note Authored Date: Patient: ??JOHN SANDHU ? Age:??67 Years?Sex:??Male?:??1955?? Chief Complaint/Reason for Consultation Altered mental status History of Present Illness John is a 67 years old patient with a past medical history of prior stroke with residual left-sided deficits (elective coiling of unruptured right MCA aneurysm in October 2020, complicated by right superior division and maximiliano-insular stroke), hypertension, hyperlipidemia, and type II diabetes who presented to the ED after being brought by EMS after having an episode of altered mental status at home. ?? Patient was apparently in his usual state of health, went to take a nap.?? went to check up onhim, and found him in bed repeatedly saying I have to go to the airport .?? She she called EMS, and the patient actually agreed to go to the hospital.?? When I asked the patient about this, he saysthat he remembers this event and remembers repeatedly saying that he needs to go to the airport, how ever he was unable to tell me why exactly.?? When I asked him about how he was feeling, he said he felt spaced out and dizzy that day. ?? In the ED, patient was hemodynamically stable.?? Initial lab work including CBC, BMP, high-sensitivity troponin, COVID PCR, and UA all unremarkable.?? Head CT showing signs of right frontal lobe stigmata of previous infarcts with encephalomalacia, however no acute intracranial abnormality. ?? I saw the patient at bedside. ??He was lying comfortably in bed, alert, and oriented to person, place, and time.?? He had no complaints besides??bilateral leg pain, which he says is chronic for him??and was asking for his Lyrica. Review of Systems A full ROS was obtained and is negative except as mentioned above in the HPI Objective Vital Signs?? Temperature: 97 DegF (12/13/22 02:00:00) Temperature Route: Temporal (12/13/22 02:00:00) Pulse Rate: 63 bpm (12/13/22 02:00:00) Respiratory Rate: 18 br/min (12/13/22 02:00:00) Systolic Blood Pressure:??146 mm Hg??High (12/13/22 02:00:00) Diastolic Blood Pressure: 69 mm Hg (12/13/22 02:00:00) Blood pressure sites: Arm, right (12/13/22 02:00:00) Mean Arterial Pressure: 109 mm Hg (12/12/22 22:00:00) Pulse Pressure: 31 mm Hg (12/12/22 22:00:00) Oxygen Saturation: 95 % (12/13/22 02:00:00) Mode of Delivery (Oxygen): Room air (12/13/22 02:00:00) Early Warning Score: 4 (12/13/22 06:45:27) ? Physical Exam General:??No acute distress Respiratory:??Clear to auscultation bilaterally Cardiovascular:??Normal rate, regular rhythm Abdomen:??No tenderness Neurologic:??Alert & Oriented x3. ??No focal neurologic deficits.?? Strength and sensation??normal in all 4 extremities. ??Pupils equal and reactive. Psychiatric:??Normal mood/affect Assessment/Plan Altered mental status Overall picture concerning for a complex partial seizure??without motor involvement??given the patient was repetitively saying??the same sentence, however with preserved awareness.?DDx includes TIA, however it is less likely given??no aphasia??and no focal??neurological deficits. Plan: ?Start Keppra 500 mg twice daily ?Continue aspirin, Plavix, and statin for now. Will discuss continuation of DAPT outpatient during neurology follow up. ??? Will also set up outpatient EEG. ?No driving for 6 months ?? Neurology will sign off ? Patient has been??seen and discussed with Dr. Cecilia Carmona??MD [facility] ?? Histories Allergies Allergies ?(Active and Proposed Allergies [...] times a day DX: Diabetes Mellitus E11.9 Lisinopril (lisinopril 5 mg oral tablet)?5?Milligram?1?tablet?By Mouth?Daily?(Last [...] delivered 10/10/22 28 for 28 days) ? Inpatient Medications Medications (24) Active SCHEDULED: (13) Ascorbic Acid 250 mg Tablet (Vitamin C 250 mg oral tablet) ??500 mg, By Mouth, Daily Aspirin 81 mg EC Tablet (aspirin 81 mg oral delayed release tablet) ??81 mg, By Mouth, Daily Atorvastatin 40 mg Tablet (atorvastatin 40 mg oral tablet) ??40 mg, By Mouth, Daily Clopidogrel 75 mg Tablet (clopidogrel 75 mg [...] oral tablet) ??25 mg, By Mouth, Daily Thiamine 100 mg Tablet (Vitamin B1 100 mg oral tablet) ??100 mg, By Mouth, Daily CONTINUOUS: (0) PRN: (11) Acetaminophen 325 mg Tablet (Acetaminophen Tablet) ??650 mg, By Mouth, Every 4 hours Calcium Carbonate 500 mg (Calcium 200 mg) Chewable Tablet (calcium carbonate 500 mg (200 mg elemental calcium) oral tablet, chewable) ??500 mg 1 tablet, Chew, 3 times a day Dextrose Inj Syringe (Dextrose 50% Inj Syringe (25Gm)) ??12.5 Gm, IV Push Slowly, Every 20 minutes Dextrose Inj Syringe (Dextrose 50% Inj Syringe (25Gm)) ??25 Gm, IV Push Slowly, Every 15 minutes Glucagon 1 mg Inj (Glucagon Inj) ??1 mg, Intramuscular, Once Glucose 40% Gel (15 Gm) (Glucose Gel) ??15 Gm, By Mouth, Every 20 minutes Glucose 40% Gel (15 Gm) (Glucose Gel) ??30 Gm, By Mouth, Every 20 minutes Melatonin 3 mg Tablet (Melatonin Tablet) ??3 mg, By Mouth, Daily at bedtime NaCl 0.9% Flush 3ml (NaCL 0.9% Flush) ??3 mL, IV Push, Every 8 hours Polyethylene Glycol 17 Gm Powder (MiraLax Powder) ??17 Gm 1 pack/packet, By Mouth, Daily Senna 8.6 mg / Docusate 50 mg tablet (Docusate/Senna Tablet) ??1 tablet, By Mouth, 2 times a day ? Results Recent Labs BLOOD COUNT & DIFF WBC 8.1 k/mm3 ()?? 12/13/2022 02:05 RBC 4.13 m/mm3 (Low)?? 12/13/2022 02:05 Hgb 13.0 Gm/dL (Low)?? 12/13/2022 02:05 Hct 39.1 % (Low)?? 12/13/2022 02:05 MCV 94.7 femtoliters (High)?? 12/13/2022 02:05 MCH 31.5 pg ()?? 12/13/2022 02:05 MCHC 33.2 g/dL ()?? 12/13/2022 02:05 Platelet Count 231 k/mm3 ()?? 12/13/2022 02:05 RDW-SD 40.5 femtoliters ()?? 12/13/2022 02:05 MPV 8.6 femtoliters (Low)?? 12/13/2022 02:05 Nucleated RBC (Automated) 0.0 #/100 WBC'S ()?? 12/13/2022 02:05 Abs. NRBC 0.0 k/mm3 ()?? 12/13/2022 02:05 Abs. Neut 4.6 k/mm3 ()?? 12/12/2022 14:08 Abs. Lymph 1.5 k/mm3 ()?? 12/12/2022 14:08 Abs. Collin 0.6 k/mm3 ()?? 12/12/2022 14:08 Abs. Eo 0.1 k/mm3 ()?? 12/12/2022 14:08 Abs. Baso 0.0 k/mm3 ()?? 12/12/2022 14:08 Neut % 67.9 % ()?? 12/12/2022 14:08 Lymph % 21.9 % ()?? 12/12/2022 14:08 Collin % 8.3 % ()?? 12/12/2022 14:08 Eos % 1.2 % ()?? 12/12/2022 14:08 Baso % 0.4 % ()?? 12/12/2022 14:08 Imm Gran 0.3 % ()?? 12/12/2022 14:08 Abs. Imm Gran 0.0 k/mm3 ()?? 12/12/2022 14:08 ?? CARDIAC High Sensitivity Troponin (HSTnT) 14 ng/L ()?? 12/12/2022 16:25 ?? CHEM GENERAL Sodium 141 mmol/L ()?? 12/13/2022 02:05 Potassium 4.4 mmol/L ()?? 12/13/2022 02:05 Chloride 104 mmol/L ()?? 12/13/2022 02:05 Bicarbonate Level 26 mmol/L ()?? 12/13/2022 02:05 Anion Gap 11 ()?? 12/13/2022 02:05 Glucose Level 105 mg/dL (High)?? 12/13/2022 02:05 Glucose, POC 103 mg/dL (High)?? 12/13/2022 06:25 BUN 15 mg/dL ()?? 12/13/2022 02:05 Creatinine-Blood 0.5 mg/dL (Low)?? 12/13/2022 02:05 Estimated GFR Creatinine 114 ML/MIN/1.73 M2 ()?? 12/13/2022 02:05 Calcium 9.4 mg/dL ()?? 12/13/2022 02:05 Phosphorus 2.6 mg/dL ()?? 12/13/2022 02:05 Magnesium 1.6 mg/dL ()?? 12/13/2022 02:05 Protein, Total 6.2 Gm/dL ()?? 12/12/2022 14:08 Albumin 4.2 Gm/dL ()?? 12/12/2022 14:08 AG Ratio 2.1 ()?? 12/12/2022 14:08 Alkaline Phosphatase 95 units/L ()?? 12/12/2022 14:08 AST (SGOT) 15 units/L ()?? 12/12/2022 14:08 ALT (SGPT) 19 units/L ()?? 12/12/2022 14:08 Bilirubin, Total 1.2 mg/dL ()?? 12/12/2022 14:08 ?? TOXICOLOGY/TDM Ethanol, Serum or Plasma NONE DETECTED mg/dL ()?? 12/12/2022 14:08 ?? UA/URINALYSIS Appear/Color, Urine YELLOW ()?? 12/12/2022 19:02 Specific [place], Urine >1.050 (High)?? 12/12/2022 19:02 pH, Urine 6.0 ()?? 12/12/2022 19:02 Albumin, Urine 1+ (Abnormal)?? 12/12/2022 19:02 Glucose, Urine NEGATIVE ()?? 12/12/2022 19:02 Ketones, Urine NEGATIVE ()?? 12/12/2022 19:02 Bilirubin, Urine NEGATIVE ()?? 12/12/2022 19:02 Hemoglobin, Urine NEGATIVE ()?? 12/12/2022 19:02 Nitrite, Urine NEGATIVE ()?? 12/12/2022 19:02 Leukocyte, Urine NEGATIVE ()?? 12/12/2022 19:02 Urobilinogen 4 mg/dL (Abnormal)?? 12/12/2022 19:02 WBC's, Urine NONE SEEN /HPF ()?? 12/12/2022 19:02 RBC's, Urine NONE SEEN /HPF ()?? 12/12/2022 19:02 Squamous Epith 1 /HPF ()?? 12/12/2022 19:02 Mucus HEAVY /LPF ()?? 12/12/2022 19:02 Hold Urine Culture Testing available 48 hours from time of collection. ()?? 12/12/2022 19:02 ?? URINE OTHER Est Creatinine Clearance 150.06 mL/min ()?? 12/12/2022 22:33 ?? VIROLOGY COVID-19 by RT-PCR NEGATIVE ()?? 12/12/2022 17:39 ? * Adilia SAVAGE, Christian: PERFORM Event Display: Consultation Note Authored Date: [id number] I saw the images, saw patient and reviewed the pertinent history and physical and agree with the impression and plan ??as discussed and outlined by Dr Ty birch. He reports haivng the event soff and on and yesterday notes he felt he kept needing to say needs ot go to airport but not sure why. His old storke puts himat risk for partial seizures, we cavanaugh et up seizure clinic and a EEG Note * Ezra Acuna RN: PERFORM Event Display: Discharge/Transfer Note Hospital Authored Date: [id number] Nursing Discharge Note Entered On: 12/18/2022 14:15 EDT Performed On: 12/18/2022 13:40 EDT by Ezra Acuna RN Nursing Discharge Note 2 Discharge Time : 12/18/2022 13:40 EDT Discharge Level of Care at Discharge : group home facility Discharge Nursing Homes/Rehab Facilities : [facility] Patient Left Unit Via : Ambulance Patient Accompanied Off Unit with : Responsible adult DC Instructions Provided & Signed by Pt : No Patient Understands D/C Instructions : No Patient Instructions Discharge Signed : No Did Pt have Specialty Bed or Wound Vac : No Ezra Acuna RN - 12/18/2022 14:14 EDT * Crystal Mosher MD: PERFORM Event Display: Discharge/Transfer Note Hospital Authored Date: [id number] Patient: ??JOHN SANDHU ? Age:??67 Years?Sex:??Male?:??1955?? Patient Information Discharge Location: A Primary Care Physician: Sonya Dee NP Admit Date/Time: 12/12/22 18:02 Discharge date: 12/18/2022 Discharge Disposition Discharge Disposition: Senior Care Facility/Rehab Discharge Diagnosis Altered mental status (R41.82) Frequent falls Right Gluteal Hematoma Depression Diabetes Mellitus _ Discharge Medications Albuterol/Ipratropium (albuterol-ipratropium 3 mg-0.5 mg/3 ml inhalation solution)?3?Milliliter?BAND Nebulizer?Every 4 hours?as needed?Wheezing/Shortness of Breath Ascorbic Acid (Vitamin C 500 mg oral tablet)?1?tab(s)?500?Milligram?By Mouth?Daily?(Last Filled & delivered 10/18/22 for 90 days) Aspirin (Aspirin Low Dose 81 mg oral tablet, chewable)?1?tab(s)?81?Milligram?By Mouth?Daily?(Last Filled & delivered 07/24/22 for 90 days) Atorvastatin (atorvastatin 40 mg oral tablet)?1?tab(s)?40?Milligram?By Mouth?Daily?(Last Filled & delivered 10/09/22 28 for 28 days) Calcium Carbonate (calcium carbonate 500 mg (200 mg elemental calcium) oral tablet, chewable)?500?Milligram?1?tablet?Chew?3 times a day?as needed?as needed for dyspepsia Clopidogrel (clopidogrel 75 mg oral tablet)?75?Milligram?1?tablet?By Mouth?Daily?(Last Filled & Delivered 07/28/22 ??for 90 days) Docusate-Senna (Docusate/Senna Tablet)?1?tab(s)?By Mouth?2 [...] times a day DX: Diabetes Mellitus E11.9 Lisinopril (lisinopril 5 mg oral tablet)?5?Milligram?1?tablet?By Mouth?Daily?(Last [...] delivered 10/10/22 28 for 28 days) ? Medications Started None Medications Discontinued None Doses Changed None PCP Follow-Up/Heads-Up Patient presented for concern of a partial seizure, although EEG routine did not show any seizure activity. ??Patient will need to follow-up with neurology stroke clinic following discharge (appointment already scheduled). Future Appointments Saturday 10:00 AM EDT ?? 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 Per conversation with , prior to presenting to the hospital patient kept repeating himself by saying I need to go to the airport. In he was more confused thus brought him to the hospital. CT head, CTA head and neck was unremarkable for any acute changes but there were stigmata of previous infarcts including at the right frontal lobe with encephalomalacia. Patient was seen by neurology who thought given his presentation he may have had complex focal seizure and was started on Keppra. EEG however did not show any signs of seizure. Since starting Keppra patient has been doing well and he is now back to baseline. Throughout hospital stay he did complain of chronic bilateral feet paresthesia. Per he stopped taking Lyrica but this medication was to be started on admission. Patient is now stablefor discharge. ?? Frequent falls Altered mental status 2/2 possible focal seizures Hx of unruptured R MCA aneurysm s/p coiling complicated by ischemic stroke According to patient and life partner, patient has had multiple falls and general decline since hisCVA. Patient also states that he has not been eating or drinking well for the past few days. Unlikely to be acute CVA as patient appears to be at his baseline mentation Head and neck imaging largely unchanged. EEG normal- no seizure activity noted ?? Recommendations: - continue Keppra 500mg BID - Outpatient Neuro follow up- seizure clinic on Jan 28?? -??Continue to encourage adequate oral intake - Cont aspirin, Plavix, and statin ? R Gluteal Hematoma - stable Large 10 cm hematoma present over right gluteal region. H/H currently stable.?? X-ray femur did not show any fractures, effusions, dislocations. Showed degenerative changes. Continue to monitor ?? Hypertension: Continue lisinopril 5mg qd ?? Chronic, Stable, and Resolved: Depression: Continue sertraline Diabetes mellitus: continue metformin on discharge Neuropathy: Continue pregabalin Vascular dementia: Continue thiamine ?? Objective Assessment and Plan See above ? . Physical Exam Constitutional:??In no acute distress. Head: Normocephalic.?? Respiratory: Clear to auscultation. No wheezing, rales or rhonchi. Cardiovascular: S1 S2 regular. No murmurs, rubs or gallops. Gastrointestinal: Abdomen soft, non-tender, non-distended. Normal bowel sounds.?? Neurologic:??5/5 strength in all extremities. Skin: No obvious rash noted. Musculoskeletal: No gross deformities. right gluteal hematoma with small area of firmness, but nontender, compartments soft Extremity: Full passive ROM. Psychiatric: Appropriate affect. _ Consultants Neurology Pending Results Add On Lab Order ordered on 12/12/2022 Patient Education Titles Confusion?? Altered Level of Consciousness?? Follow-Up Appointments Added Follow Up ?Time Frame ?Comments Christian Pat?01/28/2023 10:00 Sonya Dee Patient Instructions If you have a seizure Ask friends and family members to learn how to manage a seizure. Also tell them to do the followingif you have a seizure: .Clear the area to prevent injury. .Position you on a flat, carpeted surface, if possible. .Don???t try to restrain you. .Don???t put anything in your mouth. .Turn you onto your side if you start to vomit. .Keep track of the date and time the seizure started, how long it lasted, if you lost consciousness, a description of your body movements, what provoked the seizure (if known), and any injuries you suffered. Using a watch may help keep correct time of events.?? .Stay with you until you regain consciousness. ?? Call 911 if the seizure is longer than 5 minutes, if there are multiple seizures, or if you don't start to wake up after the seizure stops.?? You'll will probably be confused and drowsy after the seizure. Rest until you feel recovered enoughto continue your pre-seizure activity. ? Other home care Other considerations: Take your medicine exactly as directed. Skipping doses can affect the way your body handles the medicine, which could cause you to have a seizure. Don???t drink alcohol or use any medicine without talking with your provider first. Make sure all of your healthcare providers have a list of all your medicines. Seizure medicines mayinteract with other medicines. Ask your provider what to do if you take control pills. They may not work as well when takingseizure medicines.?? Think about how to keep small children safe if you are caring for them when you have a a seizure. Wear a medical alert pendant or bracelet that alerts others to your condition. The ID should include any medicine allergies Join a local support group. Ask your provider for names and phone numbers. ?? Call 911 Tell your family members or friends to call 911 right away if you have: Seizure that lasts more than 5 minutes Multiple seizures in a row Not regained consciousness after the seizure stops ?? When to call your healthcare provider You or your family members or friends should call your provider right away if you have: Seizures that are getting longer and worse Seizures that are different from those you???ve had in the past Questions about missed medicines or medicine interactions Seizures strong enough to cause injury Medicine side effects Skin rash Fever of 100.4??F (38??C) or higher, or as directed by your provider Symptoms get worse or you have new symptoms Results Test Name Test Result Date/Time WBC 9.0 k/mm3 12/17/2022 01:39 EDT RBC 4.09 m/mm3 12/17/2022 01:39 EDT Hgb 13.3 Gm/dL 12/17/2022 01:39 EDT Hct 38.8 % 12/17/2022 01:39 EDT MCV 94.9 femtoliters 12/17/2022 01:39 EDT MCH 32.5 pg 12/17/2022 01:39 EDT MCHC 34.3 g/dL 12/17/2022 01:39 EDT Platelet Count 259 k/mm3 12/17/2022 01:39 EDT RDW-SD 40.3 femtoliters 12/17/2022 01:39 EDT MPV 8.7 femtoliters 12/17/2022 01:39 EDT Glucose, POC 120 mg/dL 12/18/2022 06:54 EDT Imaging(s) ?CT Head/Brain W/O Contrast ?? 12/12/2022 16:22??by Karen Anderson MD ? No acute intracranial abnormality or change from 12/12/2022. Stigmata of previous infarcts including at the right frontal lobe with encephalomalacia. ?CT Angio Neck ?? 12/12/2022 16:22??by Genaro Howard MD ? NASCET Criteria: ?? The degree of internal carotid stenosis is based on NASCET Criteria: ?? Normal: No stenosis ?? Mild: Less than 50% stenosis ?? Moderate: 50-69% stenosis ?? Severe: 70-99% stenosis ?? Total occlusion: No detectable patent lumen. ?XR Femur 2 Views Right ?? 12/12/2022 16:12??by Karen Anderson MD ? No acute fracture. Mild diffusely decreased bone mineralization. Iahi-iq-prtlvlfe degenerative changes at the hip joint and tricompartment osteoarthritis. No knee joint effusion. There is a small patellar enthesophyte. ? 35_ minutes spent on discharge Patient discussed with attending physician, Dr. Ro Mosher MD PGY3- IM * Ro SAVAGE, Love Haro: PERFORM Event Display: Discharge/Transfer Note Hospital Authored Date: Attending Attestation: I have seen and evaluated this patient on 12/18/22. I have discussed the caseand its management with the resident and agree with the findings and plan as documented in the resident???s note except where modified. ?? Love Starr MD MPH Internal Medicine/Pediatric Hospitalist Pager: [phone] ? * Crystal Mosher MD: PERFORM Event Display: Discharge/Transfer Note Hospital Authored Date: [id number] Keppra added as a new medication to the list, will need to continue 500mg BID. No driving for 6 months * Parent RNTiffanie: PERFORM, SIGN, VERIFY Event Display: Case Management Discharge Plan Authored Date: [id number] Patient: JOHN SANDHU Age: 67 years Sex: Male : 1955 Associated Diagnoses: None Author: Parent Tiffanie GARAY Discharge Plan Case Management Discharge Plan : Case Management Discharge Plan Data 12/18/2022 10:41 EDT Discharge Level of Care at Discharge group home facility Discharge Nursing Homes/Rehab Facilities [facility] Discharge Transportation Arranged [facility] [address] [place] [phone] Discharge Arranged Transport Date/Time 12/18/2022 13:00 Mode of Transportation Arranged Ambulance Name of Agency #1 [facility] Service Categories #1 Occupational Therapy, Physical Therapy, Senior Care Service Comments #1 An ambulance has been arranged to bring you to [facility] at 1p. Name of Person Notified of Transfer Patient and Life Partner Rose Mary * Sunny GARAY, Priscilla: PERFORM Event Display: Patient Education/Instruction Authored Date: [id number] Inpatient Adult Discharge Instructions [address] [id number] Name: JOHN SANDHU : 1955 Visit: 12/12/2022 18:02:00 Current Date: 12/18/2022 12:32 Account: [id number] Inpatient Adult Discharge Instructions We would like [...] and their families. Surveys are administered by [employer]. ?? If further treatment with your primary care physician or another doctor is recommended, it is important for you to keep the appointment. Call your primary care physician or return to the Emergency Department immediately if your condition worsens, fails to improve, or new symptoms develop. If you need to find a doctor, you can call [facility] for a referral at [phone] or toll free at [phone]) or log in to [email or web address].. ?? [facility], in keeping with [facility] guidance, no longer requires face masks for staff, patientsor visitors in most situations. Similiar to time spent indoors at other locations, there is the chance that you were exposed to repiratory viruses during your time with us (such as flu or COVID-19). If you develop symptoms concerning for a viral respiratory infection, please seek testing (and treatment if indicated) from your medical provider or home test kit. ?? You can view and manage your care through the patient portal or by using a health care derrick of your choosing. [employer] is a website that allows you to securely view your medical information including your hospital discharge summary, office visit summaries, medications and follow-up visits. You can also request appointments, renew medications, and request access to your medical information using a health care derrick of your choosing, or just ask a question. You can enroll at [email or web address] or register during your next office visit. You have been discharged from [facility], Patient Care Unit: D5A. If you have any questions regarding these instructions after you leave, please call us and we will be happy to assist you. [facility] Your Care Team Attending Physician Love Starr MD Discharging Providers Crystal Mosher MD Reason for Admission Pt is coming from home , noticed that patient had a brief episode of confusion approx 1 hour ago ??afetr stated I want to go to the airport while looking out ??window, when EMS arrived pt was alert ,oriented x3 and answering ??all questions, denies ??S Your Diagnosis Altered mental status Tests Performed Below is a partial list of the tests performed during your hospitalization. You may have had other tests and procedures not included in this list. Please discuss all test results with your provider. Basic Metabolic Panel CBC CBC w/ Differential Comprehensive Metabolic Panel COVID-19 (Novel Coronavirus), Rapid PCR ETHANOL GLUCOSE POC HOLD GEL TUBE Mg Level Phosphorus Level Troponin T, High Sensitivity Urinalysis w/hold for Urine Culture CT Angio Head CT Angio Neck CT Head/Brain W/O Contrast Femur 2 Views Right XR Chest 2 Views Frontal and Lat Primary Care Provider Sonya Dee NP Advance Directive Health Care Proxy on File Yes - Health Care Proxy Yes - MOLST Discharge Vitals Temperature: 97.3 DegF Height: 177.8 cm Pulse Rate: 62 bpm Weight: 77.7 kg Respiratory Rate: 20 br/min Body Mass Index: 24.58 kg/m2 Systolic Blood Pressure: 111 mm Hg Body surface area: 1.96 Diastolic Blood Pressure: 62 mm Hg ?? Oxygen Saturation: 96 % ?? Studies Pending All tests and labs ordered during this hospital stay have been completed unless listed below. Please discuss all pending results with your provider listed above in these instructions. ?? Add On Lab Order What to do next Instructions From Your Doctor If you have a seizure Ask friends and family members to learn how to manage a seizure. Also tell them to do the followingif you have a seizure: .Clear the area to prevent injury. .Position you on a flat, carpeted surface, if possible. .Don???t try to restrain you. .Don???t put anything in your mouth. .Turn you onto your side if you start to vomit. .Keep track of the date and time the seizure started, how long it lasted, if you lost consciousness, a description of your body movements, what provoked the seizure (if known), and any injuries you suffered. Using a watch may help keep correct time of events.?? .Stay with you until you regain consciousness. ?? Call 911 if the seizure is longer than 5 minutes, if there are multiple seizures, or if you don't start to wake up after the seizure stops.?? You'll will probably be confused and drowsy after the seizure. Rest until you feel recovered enoughto continue your pre-seizure activity. ? Other home care Other considerations: Take your medicine exactly as directed. Skipping doses can affect the way your body handles the medicine, which could cause you to have a seizure. Don???t drink alcohol or use any medicine without talking with your provider first. Make sure all of your healthcare providers have a list of all your medicines. Seizure medicines mayinteract with other medicines. Ask your provider what to do if you take control pills. They may not work as well when takingseizure medicines.?? Think about how to keep small children safe if you are caring for them when you have a a seizure. Wear a medical alert pendant or bracelet that alerts others to your condition. The ID should include any medicine allergies Join a local support group. Ask your provider for names and phone numbers. ?? Call 911 Tell your family members or friends to call 911 right away if you have: Seizure that lasts more than 5 minutes Multiple seizures in a row Not regained consciousness after the seizure stops ?? When to call your healthcare provider You or your family members or friends should call your provider right away if you have: Seizures that are getting longer and worse Seizures that are different from those you???ve had in the past Questions about missed medicines or medicine interactions Seizures strong enough to cause injury Medicine side effects Skin rash Fever of 100.4??F (38??C) or higher, or as directed by your provider Symptoms get worse or you have new symptoms Discharge Orders Scheduled Follow-Up Appointments Saturday 10:00 AM EDT ?? With: Christian Pat MD Where: [facility] [address] [place] [id number]- Status: Pending You Need to Schedule the Following Appointments Follow Up with?Lin Pat When:??01/28/2023 10:00 AM EDT Where: [address] [place] [address], [address] [place] [phone] [facility] (1) Follow Up with??Sonya Dee When:??In 0 days Discharge Medications JOHN SANDHU :1955 Visit Date:12/12/2022 Medications: Please continue your medications until treatment is completed or stopped by your provider. Medications not listed below should be discontinued. Discuss any questions related to medications with your provider. What How Much When Why Instructions Next Dose New levETIRAcetam (Keppra 500 mg oral tablet) 500 Milligram Oral Twice a day 12/18/22 at 9pm Unchanged Albuterol/ Ipratropium (albuterol-ipratropium 3 mg-0.5 mg/ 3 ml inhalation solution) 3 Milliliter BAND Nebulizer Every 4 hours as needed for Wheezing/Shortness of Breath PRN as needed Unchanged Ascorbic Acid (Vitamin C 500 mg oral tablet) 1 tab(s) Oral Daily (Last Filled & delivered 90 for 90 days) ?? 12/19/22 at 9am Unchanged Aspirin (Aspirin Low Dose 81 mg oral tablet, chewable) 1 tab(s) Oral Daily (Last Filled & delivered 90 for 90 days) ?? 12/19/22 at 9am Unchanged Atorvastatin (atorvastatin 40 mg oral tablet) 1 tab(s) Oral Daily (Last Filled & delivered 28 for 28 days) ?? 12/18/22 at 9pm Unchanged Calcium Carbonate (calcium carbonate 500 mg (200 mg elemental calcium) oral tablet, chewable) 1 tab(s) Chew 3 times a day as needed for as needed for dyspepsia resume home dose Unchanged Clopidogrel (clopidogrel 75 mg oral tablet) 1 tab(s) Oral Daily (Last Filled & Delivered 90 ??for 90 days) ?? 12/19/22 at 9am Unchanged Docusate-Senna (Docusate/ Senna Tablet) 1 tab(s) Oral Twice a day 12/18/22 at 9pm Unchanged Durable Medical Equipment (depends xl) See instructions DX: incontinence N39.46 ?? N/A Unchanged Durable Medical Equipment (Freestyle Lite Lancets) See instructions Diabetes mellitus Duration: 30 Days Use to check blood sugar three times a day DX: Diabetes Mellitus E11.9 ?? N/A Unchanged Durable Medical Equipment (Freestyle Lite Monitor) See instructions Diabetes mellitus Use to check blood sugar three times a day DX: Diabetes Mellitus E11.9 ?? N/A Unchanged Durable Medical Equipment (Freestyle Lite Test Strips) See instructions Diabetes mellitus Use to check blood sugar three times a day DX: Diabetes Mellitus E11.9 ?? N/A Unchanged Durable Medical Equipment (large pull ups) See instructions DX: incontinence N39.46 ?? N/A Unchanged Lisinopril (lisinopril 5 mg oral tablet) 1 tab(s) Oral Daily (Last Filled & delivered 90 for 90 days) ?? 12/19/22 at 9am Unchanged Magnesium Oxide (magnesium oxide 400 mg oral tablet) 1 tab(s) Oral Daily (Last Filled & delivered 28 for 28 days) ?? 12/19/22 at 9am Unchanged Melatonin (melatonin 3 mg oral tablet) 1 tab(s) Oral Daily at Bedtime as needed for Insomnia last dose 12/17/22 at 830pm Unchanged Metformin (metFORMIN 1000 mg oral tablet) 1 tab(s) Oral Twice a day (Last Filled & delivered 180 for 90 days) ?? resume home dose Unchanged Pantoprazole (pantoprazole 40 mg oral delayed release tablet) 1 tab(s) Oral Daily (Last Filled & delivered 90 for 90 days) ?? 12/19/22 at 9am Unchanged Pregabalin (pregabalin 75 mg oral capsule) 1 capsule Oral Daily (Has Never Started Per Héctor this patient gets ALL MEDS Delivered.) ?? 12/19/22 at 9am Unchanged Sertraline (sertraline 25 mg oral tablet) 1 tab(s) Oral Daily (Last Filled & delivered 90 for 90 days) ?? 12/19/22 at 9am Unchanged Thiamine (Vitamin B1 100 mg oral tablet) 1 tab(s) Oral Daily (Last Filled & delivered 28 for 28 days) ?? 12/19/22 at 9am ?? What How Much When Comments Stop Taking Glimepiride (glimepiride 4 mg oral tablet) 1 tab(s) Oral Twice a day (Last Filled & delivered 180 for 90 days) ?? Test Results Below is a partial list of the most recent Laboratory test results done prior to this discharge. You may have had other tests and procedures not included in this list. Please discuss all test resultswith your provider. Est Creatinine Clearance - 150.06 mL/min (12/12/2022) Basic Metabolic Panel (12/13/2022) ???Sodium - 141 mmol/L???Potassium - 4.4 mmol/L???Chloride - 104 mmol/L???Bicarbonate Level - 26 mmol/L???Anion Gap - 11???Glucose Level - 105 mg/dL???BUN - 15 mg/dL???Creatinine-Blood - 0.5 mg/dL???Estimated GFR Creatinine - 114 ML/MIN/1.73 M2???Calcium - 9.4 mg/dL CBC (12/17/2022) ???WBC - 9.0 k/mm3???RBC - 4.09 m/mm3???Hgb - 13.3 Gm/dL???Hct - 38.8 %???MCV - 94.9 femtoliters???MCH - 32.5 pg???MCHC - 34.3 g/dL???Platelet Count - 259 k/mm3???RDW-SD - 40.3 femtoliters???MPV - 8.7 femtoliters???Nucleated RBC (Automated) - 0.0 #/100 WBC'S???Abs. NRBC - 0.0 k/mm3 CBC w/ Differential (12/12/2022) ???WBC - 6.8 k/mm3???RBC - 4.14 m/mm3???Hgb - 13.3 Gm/dL???Hct - 39.4 %???MCV - 95.2 femtoliters???MCH - 32.1 pg???MCHC - 33.8 g/dL???Platelet Count - 240 k/mm3???RDW-SD - 41.1 femtoliters???MPV - 8.8 femtoliters???Nucleated RBC (Automated) - 0.0 #/100 WBC'S???Abs. NRBC - 0.0 k/mm3???Abs. Neut - 4.6 k/mm3???Abs. Lymph - 1.5 k/mm3???Abs. Collin - 0.6 k/mm3???Abs. Eo - 0.1 k/mm3???Abs. Baso - 0.0 k/mm3???Neut % - 67.9 %???Lymph % - 21.9 %???Collin % - 8.3 %???Eos % - 1.2 %???Baso % - 0.4 %???Imm Gran- 0.3 %???Abs. Imm Gran - 0.0 k/mm3 Comprehensive Metabolic Panel (12/12/2022) ???Sodium - 143 mmol/L???Potassium - 4.4 mmol/L???Chloride - 104 mmol/L???Bicarbonate Level - 26 mmol/L???Anion Gap - 13???Glucose Level - 128 mg/dL???BUN - 19 mg/dL???Creatinine-Blood - 0.5 mg/dL???Estimated GFR Creatinine - 114 ML/MIN/1.73 M2???Calcium - 9.5 mg/dL???Protein, Total - 6.2 Gm/dL???Al bumin - 4.2 Gm/dL???AG Ratio - 2.1???Alkaline Phosphatase - 95 units/L???AST (SGOT) - 15 units/L???ALT (SGPT) - 19 units/L???Bilirubin, Total - 1.2 mg/dL COVID-19 (Novel Coronavirus), Rapid PCR (12/12/2022) ???COVID-19 by RT-PCR - NEGATIVE ETHANOL (12/12/2022) ???Ethanol, Serum or Plasma - NONE DETECTED GLUCOSE POC (12/18/2022) ???Glucose, POC - 182 mg/dL HOLD GEL TUBE (12/17/2022) ???Hold Gel Top - SPECIMEN DISCARDED AFTER 1 WEEK Mg Level (12/13/2022) ???Magnesium - 1.6 mg/dL Phosphorus Level (12/13/2022) ???Phosphorus - 2.6 mg/dL Troponin T, High Sensitivity (12/12/2022) ???High Sensitivity Troponin (HSTnT) - 14 ng/L Urinalysis w/hold for Urine Culture (12/12/2022) ? ?Appear/Color, Urine - YELLOW? ?Specific [place], Urine - >1.050? ?pH, Urine - 6.0? ?Albumin, Urine - 1+???Glucose, Urine - NEGATIVE???Ketones, Urine - NEGATIVE???Bilirubin, Urine - NEGATIVE???Hemoglobin, Urine - NEGATIVE???Nitrite, Urine - NEGATIVE???Leukocyte, Urine - NEGATIVE???Urobilinogen- 4 mg/dL???WBC's, Urine - NONE SEEN???RBC's, Urine - NONE SEEN???Squamous Epith - 1 /HPF???Mucus - HEAVY???Hold Urine Culture - Testing available 48 hours from time of collection. Allergies (NKA means No Known Allergies) gabapentin??(Swelling) [...] Educational Leaflet Providered with your Discharge Instructions. Levetiracetam Oral Tablet?? First Aid: Seizures?? After a Fall?? Preventing Falls at Home?? Confusion?? Altered Level of Consciousness?? Valuables and Belongings I fully understand and agree that [facility] accepts no responsibility for all my [...] witness Date for Pt to Sign Valuables/Belongings: 12/12/22 20:51:00 ?? Other Discharge Information ? Case Management Discharge Plan?? Discharge Plan?? Discharge Agency Information?? Discharge Level of Care at Discharge: group home facility Name of Agency #1: [facility] Dis[facility] Transportation Arranged: [facility] [id number] [phone] Service Categories #1: Occupational Therapy, Physical Therapy, Senior Care Mode of Transportation Arranged: Ambulance Service Comments #1: An ambulance has been arranged to bring you to [facility] at 1p. Discharge Arranged Transport Date/Time: 12/18/22 13:00:00 Name of Person Notified of Transfer: Patient and Life Partner Rose Mary Discharge Nursing Homes/Rehab Facilities: [facility] ? Pulmonary Rehab Status?? Pulmonary Rehab Discharge Status?? Respiratory Rate: 20 br/min ? Common Emergency Awareness Tips IS [...] are strongly encouraged to quit. Please call [employer] [facility] at [phone] or [phone] ([phone]) or log in to [email or web address] for referrals to smoking cessation programs. ?? 997 Suicide & Crisis Lifeline is available 12/11 if you or someone you know needs to find a reason to keep living. By calling 883 you'll be connected to a skilled, trained counselor at a crisis center in your area. INPATIENT DISCHARGE INSTRUCTIONS SIGNATURE PAGE JOHN SANDHU Location:[facility] Registration Date and Time:12/12/2022 18:02 EDT Primary Care Physician: Sonya Dee NP, Attending Physician: Ro SAVAGE, Love Haro, I JOHN SANDHU, have received the above patient education materials/instructions and have verbalized understanding. If ambulance or transport services are being used I further acknowledge being given a choice of service. ?? If you need to contact me, please call me at this number: . Patient/Assembly Leader Name: Patient/Assembly Leader Signature: Relationship to Patient: Witness Name/Signature: Date: * Priscilla Correa RN: PERFORM Event Display: Patient Education Leaflets Authored Date: [id number] Levetiracetam Oral Tablet ?? [id number] Levetiracetam Oral Tablet Brands: [employer] Uses For seizures. ?? Instructions Swallow the medicine without crushing or chewing it. This medicine may be taken with or without food. This medicine will work best if you take it at about the same time every day. Keep the medicine at room temperature. Avoid [...] the missed dose. Return to your normal schedule. Do not take 2 doses at one time. Tell your doctor and pharmacist about all your medicines. Include prescription and gyue-avn-gzdfkoxumgdlwanu, vitamins, and herbal medicines. Contact your doctor if your seizures do not improve or worsen while on this medicine. Do not suddenly stop taking this medicine. Check with your doctor before stopping. It is very important that you follow your doctor's instructions for all blood tests. ?? Cautions Tell your doctor and pharmacist if you ever had an allergic reaction to a medicine. There is an increased risk of bleeding while on this medicine, please tell your doctor or nurse if you notice any excessive bleeding or bruising. Do not use the medication any more than instructed. Your ability to stay alert or to react quickly may be impaired by this medicine. Do not drive or operate machinery until you know how this medicine will affect you. Please check with your doctor before drinking alcohol while on this medicine. Family should check on the patient often. Call the doctor if patient becomes more depressed, has thoughts of suicide, or shows changes in behavior. Tell the doctor or pharmacist if you are , planning to be , or . Do not start or stop any other [...] experience these or other side effects. ??? dizziness or drowsiness ??? lack of energy and tiredness Call your doctor or get medical help right away if you notice any of these more serious side effects: ??? agitated feeling or trouble sleeping ??? depression or feeling sad ??? fever ??? fast or irregular heart beats ??? rapid breathing A few people may have an allergic reaction to this medicine. Symptoms can include difficulty breathing, skin rash, itching, swelling, or severe dizziness. If you notice any of these symptoms, seek medical help quickly. ?? Extra Please speak with your doctor, nurse, or pharmacist if you have any questions about this medicine. ?? [email or web address] IMPORTANT NOTE: This document tells you briefly how to take your medicine, but it does not tell youall there is to know about it. Your doctor or pharmacist may give you other documents about your medicine. Please talk to them if you have any questions. Always follow their advice. There is a more complete description of this medicine available in Polish. Scan this code on your smartphone or tablet or use the web address below. You can also ask your pharmacist for a printout. If you have any questions, please ask your pharmacist. The display and use of this drug information is subject to Terms of Use. Copyright(c) 2022 [employer]. ?? [employer]. All rights reserved. This information is not intended as a substitute for professional medical care. Always follow your healthcare professional's instructions. ?? * Priscilla Correa RN: PERFORM Event Display: Patient Education Leaflets Authored Date: [id number] First Aid: Seizures ?? [address]78 First Aid: Seizures A seizure results from a sudden funk of abnormal electrical signals in the brain. Symptoms may range from a minor daze to uncontrollable muscle spasms (convulsions). In many cases, the person will faint (lose consciousness). A seizure can be caused by a high fever, head injury, medicine reaction, stroke, infection, or condition such as epilepsy. Step 1. Protect the head Use these steps if you see someone having a seizure: ??? Help the person to the floor if they start losing muscle control. Turn them on their side. Thisis to help them breathe better. It also helps prevent choking or having a foreign object get into their airway (aspiration). ??? Protect the person's head from injury by placing something soft under it, such as folded clothes. Also move any objects away from the person. ??? Don't cause injury by restraining the person or by placing anything in their mouth. Don't try to hold the person's tongue. ??? Remove any eyeglasses. ?? Step 2.??Preserve their dignity ??? Clear away bystanders. ??? Reassure the person. They may be confused, drowsy, or hostile when coming out of the seizure. ??? Cover the person or provide dry clothes if muscle spasms have caused a loss of bladder control. ?? Step 3. Check for injury ??? Make sure the person's mental state has returned to normal. One way todo this is to ask them their name, the year, and your location. ??? Injuries can occur to the head,mouth, tongue, or body.? Check to see if the person is wearing a medical information bracelet or necklace with instructions. ?? Step 4. Call 911 Call 911 right away if: ??? The seizure lasts longer than??5??minutes (timing the seizure and recovery time is helpful in many cases) ??? A second seizure occurs ??? The person doesn???t??regain consciousness ??? The person is or has diabetes or heart disease ??? The person has no history of seizures ??? The person has an injury during the seizure ?? Last Reviewed Date: 2022 ?? [id number] [employer]. All rights reserved. This information is not intended as a substitute for professional medical care. Always follow your healthcare professional's instructions. ?? * Priscilla Correa RN: PERFORM Event Display: Patient Education Leaflets Authored Date: [id number] After a Fall ?? [id number] After a Fall You have had a fall today. That means that you slipped, tripped, or lost your balance. If your fallwas because of fainting or a seizure,??you might need other??tests. It is normal to feel sore and tight in your muscles and back the next day, and not just the musclesyou injured. Remember, all the parts of your body are connected, so while one area hurts now, the next day another may hurt. Also, when you injure yourself, it causes inflammation. This then causes the muscles to tighten up and hurt more. After the initial worsening symptoms, they should slowly improve over the next few days. Tell your healthcare provider if you have more severe pain. Even without a definite head injury, you can still get a concussion from your head suddenly jerkingforward, backward, or sideways when you fall. This is especially true if you have had concussions in the past. Concussions and even bleeding can still happen, especially if you had a recent injury ortake blood thinner medicine. It is not unusual to have a mild headache and feel tired and even nauseous or dizzy.?? Home care ??? Rest today and return to your normal activities when you are feeling back to normal. ??? If you were injured during the fall, follow the advice from your healthcare provider about how to care for your injury. ??? At first, don't try to stretch out the sore spots. If there is a strain,stretching may make it worse. Massage may help relax the muscles without stretching them. ??? Use an ice pack or cold compress on and off at the sore spots for 10 to 20 minutes at a time, as often asyou feel comfortable. This may help reduce the inflammation, swelling, and pain. ??? Know that if you have any scrapes (abrasions), they often heal within??10 days. Keep the scrapes clean while they start to heal. But an infection may happen even with correct care. So watch for early signs of infection (such as warmth, redness, or swelling). ?? Medicines ??? Talk with your healthcare provider before taking new medicines, especially if you have other health problems or are taking other medicines. ??? If you need anything for pain, use acetaminophen or ibuprofen, unless you were given a different pain medicine to use.??Talk with your healthcare provider before using these medicines if you: o Have chronic liver or kidney disease o Ever hada stomach ulcer or??gastrointestinal bleeding o Are taking blood-thinner medicines ??? Be careful if you are given prescription pain medicines, narcotics, or medicine for muscle spasms. They can makeyou sleepy and dizzy. And they can affect your coordination, reflexes, and judgment. Don't drive ordo work where you can hurt yourself when taking them. ?? Fall prevention ??? Fix, remove, or replace anything that caused your fall. ??? Make your home safeby keeping walkways clear of objects you could trip over. ??? Use nonslip pads under rugs. Don't use small??area rugs or throw rugs. ??? Don't walk in poorly lit areas. ??? Don't stand on chairs or wobbly ladders. ??? Be careful when reaching overhead or looking upward. This position can cause a loss of balance. ??? Be sure your shoes fit correctly, have nonslip bottoms, and are in good condition. ??? Be careful when going up and down curbs, and walking on uneven sidewalks. ??? If your balance is poor, think about using a cane or walker. ??? Stay as active as you can. Balance, flexibility, strength, and endurance all come from exercise. They all play a role in preventing falls. ??? If you have pets, know where they are before you stand up or walk so you don't trip over them. ??? Limit alcohol intake. Alcohol can cause balance problems and increase the risk for falls. ??? Use night-lights. ??? Have your eyes tested to be sure you are seeing well, even if you already wear glasses.? Follow-up Follow up with your healthcare provider, or as advised. If X-rays or CT scans were done, you will be told if there is a change in the reading, especially if it affects treatment. ?? Call 911 Call 911 if any of these happen: ??? Trouble breathing ??? Confusion ??? Trouble waking up ??? Fainting or loss of consciousness ??? Fast or very slow heart rate ??? Seizure ??? Trouble with speech or vision, weakness of an arm or leg ??? Trouble walking or talking, loss of balance, numbness or weakness on one side of your body, or facial droop ?? When to get medical advice Call your healthcare provider right away if any of these happen: ??? Repeated falls, including falls that seem to happen for no reason ??? Dizziness ??? Severe headache ??? Blood in vomit or stools (look black or red in color) ?? Last Reviewed Date: 2022 ?? [id number] [employer]. All rights reserved. This information is not intended as a substitute for professional medical care. Always follow your healthcare professional's instructions. ?? * Camille Ernandez RN: PERFORM Event Display: Discharge/Transfer Note Hospital Authored Date: [id number] Discharge Planning Nursing Entered On: 12/15/2022 10:45 EDT Performed On: 12/15/2022 10:45 EDT by Camille Ernandez RN Discharge Planning Nursing Anticipated discharge : Unable to determine Camille Ernandez RN - 12/15/2022 10:45 EDT * Kathryn Orozco RN: PERFORM, SIGN, VERIFY Event Display: Patient Education Handout Authored Date: [id number] Patient Care team information Care Team Personnel Name: Adelia Landry RN Position: [facility] RN Member Role: Primary Care Nurse Name: Alicia Negron Position: [facility] RN Member Role: Primary Care Nurse Name: Jason Pereira RN Position: [facility] RN Member Role: Primary Care Nurse Name: Hanna Dailey Position: [facility] RN Member Role: Primary Care Nurse Name: Nereida Dobbins RN Position: [facility] RN Member Role: Primary Care Nurse Name: Gela Orosco RN Position: [facility] RN Member Role: Primary Care Nurse Name: Jessica Castrejon RN Position: [facility] RN Member Role: Primary Care Nurse Name: Hien Hidalgo RN Position: [facility] RN Member Role: Primary Care Nurse Name: Phuong Balderas RN Position: [facility] RN Member Role: Primary Care Nurse Name: Evelyn Mcnulty RN Position: [facility] RN Member Role: Primary Care Nurse Name: Yanely Shanks RN Position: [facility] RN Member Role: Primary Care Nurse Name: Sonya Dee NP Position: [facility] PCO Associate Professional Member Role: PCP Address: Address: [address] [place] [address], [address] [place] [address]- Name: Siddhartha Andino RN Position: [facility] RN Member Role: Primary Care Nurse Name: Pola Reid RN Position: [facility] RN Supv Member Role: Primary Care Nurse Name: Betzy Beckford RN Position: [facility] RN Member Role: Primary Care Nurse Name: Ezra Acuna RN Position: [facility] RN Member Role: Primary Care Nurse Name: Gabriella Gonsales RN Position: [facility] RN Member Role: Primary Care Nurse Name: Zully Jara Position: [facility] RN Member Role: Primary Care Nurse Name: Yunior Bui RN Position: [facility] RN Member Role: Primary Care Nurse Name: Candace Liang RN Position: [facility] RN Member Role: Primary Care Nurse Name: Marci Padilla RN Position: [facility] RN Member Role: Primary Care Nurse Name: Florecita Ring RN Position: [facility] RN Member Role: Primary Care Nurse Name: Dedra Lezama Position: [facility] RN Member Role: Primary Care Nurse Name: Pat Fernando RN Position: [facility] RN Member Role: Primary Care Nurse Name: Randa Sagastume RN Position: [facility] RN Member Role: Primary Care Nurse Name: Mitra Patel Position: [facility] RN Member Role: Primary Care Nurse Name: Kacie Campbell RN Position: [facility] RN Member Role: Primary Care Nurse Name: Tammy Castillo RN Position: [facility] RN Member Role: Primary Care Nurse Name: Charito Vazquez RN Position: [facility] ED RN W/OE and Tasks Member Role: Primary Care Nurse Name: Dylan Bond RN Position: [facility] RN Member Role: Primary Care Nurse Name: Lydia Doherty RN Position: [facility] RN Member Role: Primary Care Nurse Name: Elie Davis RN Position: [facility] RN Member Role: Primary Care Nurse Name: Delfina Still RN Position: [facility] RN Member Role: Primary Care Nurse Name: Mary Wagner RN Position: [facility] RN Member Role: Primary Care Nurse Name: Chandni Gibbons RN Position: [facility] RN Member Role: Primary Care Nurse Name: Brayden Elizabeth RN Position: [facility] RN Member Role: Primary Care Nurse Name: Viry Zacarias RN Position: [facility] RN Member Role: Primary Care Nurse Name: Kerri Cunha RN Position: [facility] Livestock Inspector Member Role: Primary Care Nurse Name: Atiya Mcintyre RN Position: [facility] RN Member Role: Primary Care Nurse Name: Galdino NOVOA Attending Position: [facility] ED Medicine MD Name: Donald Velázquez RN Position: [facility] ED RN W/OE and Tasks Member Role: Patient Care Provider Name: Andreea Mcnulty Position: [facility] ED OA Charge Member Role: ED Associate Name: Debbie Berman DO Position: [facility] Resident Member Role: ED Resident Address: Address: [address] [place] [address] [place] [address]- Name: Heather Kline Position: [facility] ED TA [facility] Care Team Related Persons Name: KEENAN CORRAL Address: home [address] [place] [address]
--- OUTSIDE RECORDS SUMMARY | 2023-04-11 15:23 | XMS_ITS | Continuity of Care Document ---
Author Name Unknown Organization [facility] Adult Address [address] [place] [address]- Care Team Providers Care Heel Attacher Wood Name Role Phone Luiz SALSA, Sonya Primary Care Physician [phone] Encounter [facility] [place] Date(s): 08/22/21 - 08/29/[address] [facility] Adult [address] [place] [address]- Attending Physician: Not on Staff, Attending MD [...] Refills, Maintenance, 05/02/21 10:38:00 EST, Tablet, [id number], Partial fill upon patient request if the prescription is for a schedule II opioid drug., 178, cm, 04/27/21 4:54:00 ES... Start Date: 05/02/21 Stop Date: 10/29/21 Status: Ordered cholecalciferol 50,000 intl units oral capsule 1 capsule = 50,000 International_Units, By Mouth, Every week, # 5 capsule, 11 Refills, Maintenance,05/02/21 10:36:00 EST, Capsule, [facility]/pharmacy #[id number], Partial fill upon patient request if the prescription is for a schedule II opioid drug., 178, cm, 0... Start Date: 05/02/21 Stop Date: 04/27/22 Status: Ordered clonazePAM 0.5 mg oral tablet 1 tablet = 0.5 mg, By Mouth, 3 times a day, # 90 tablet, 1 Refills, Maintenance, 07/25/21 17:16:00 EDT, Tablet, [facility]/pharmacy #[id number], Partial fill upon patient request if the prescription is for a schedule II opioid drug., 178, cm, 07/24/21 16:10:00 EDT... Start Date: 07/25/21 Stop Date: 09/23/21 Status: Ordered clopidogrel 75 mg oral tablet 1, tablet, By Mouth, Daily, # 90 tablet, Refills 1, Route to Pharmacy Electronically, [facility] [id number], 178, cm, 05/11/21 8:52:00 EST, Height, 81, kg, 05/06/21 2:22:00 EST, Dry Weight Start Date: 05/30/21 Status: Ordered glimepiride 4 mg oral tablet 1 tablet, By Mouth, 2 times a day, # 60 tablet, 5 Refills, Maintenance, 05/02/21 10:36:00 EST, [facility]/pharmacy #[id number], 178, cm, 04/27/21 4:54:00 EST, [...] 10/29/21 10:39:00 EDT, 05/02/21 10:39:00 EST, Tablet, [facility]/pharmacy #[id number], Partial fill upon patient request if the prescription is for a schedule II opioid drug., 178, cm,... Start Date: 05/02/21 Stop Date: 10/29/21 Status: Ordered metFORMIN 1000 mg oral tablet 1 tablet = 1,000 mg, By Mouth, 2 times a day, # 60 tablet, 5 Refills, Maintenance, 05/02/21 10:36:00 EST, Tablet, [facility]/pharmacy #[id number], Partial fill upon patient request, 178, cm, 04/27/21 4:54:00 EST,Height, 84.3, kg, 04/23/21 2:54:00 EST, Dry Weight Start Date: 05/02/21 Status: Ordered oxyCODONE 5 mg oral tablet 5 mg, 1, tablet, By Mouth, 5 times a day, DENTAL TECHNOLOGY ADVISOR checked., # 140 tablet, Refills 0, Tot. [...] 05/02/21 10:38:00 EST, Route to Pharmacy Electronically, [facility]/pharmacy #[id number], Partial fill upon patient request if the [...]
--- OUTSIDE RECORDS SUMMARY | 2023-04-11 15:23 | XMS_ITS | Continuity of Care Document ---
Author Name Unknown Organization [facility] Address Unknown Care Team Providers Care Dub Room Engineer Name Role Phone Sonya Dee NP Primary Care Physician [phone] Encounter [facility] [place] Date(s): 01/19/21 - 02/18/21 [facility] Attending Physician: Jacobo Hill Admitting Physician: AdmJacobo lopez Referring Physician: AdmJacobo lopez Allergies, Adverse Reactions, Alerts Substance Reaction Severity [...] 5 Refills, Maintenance, 01/16/21 10:30:00 EDT, Tablet, [facility]/pharmacy #[id number], Partial fill upon patient request if the prescription is for a schedule II opioid drug., 178, cm, 12/29/20 5:31:00 EDT, Height, 1... Start Date: 01/16/21 Stop Date: 07/15/21 Status: Ordered aspirin 81 mg oral tablet, chewable 81 mg, 1, tablet, By Mouth, Daily, # 30 tablet, Refills 5, Tot. Refills 5, Maintenance, 01/16/21 10:30:00 EDT, Route to Pharmacy Electronically, [facility]/pharmacy #[id number], Partial fill upon patient [...] 01/16/21 10:29:00 EDT, Route to Pharmacy Electronically, [facility]/pharmacy #[id number], Partial fill upon patient [...] 0 Refills, Maintenance, 03/15/20 12:57:00 EST, Tablet, [facility], Partial fill upon patient request, 178, cm, 03/15/20 11:15:00 EST, Height, 105, kg, 03/12/20 6:12:00 EST, Dry W... Start Date: 03/15/20 Status: Ordered MiraLax oral powder for reconstitution = 17 Gm, By Mouth, Daily, for 14 days, dissolve in water before taking, # 238 Gm, 0 Refills, Acute 02/27/21 13:29:00 EST, 02/13/21 13:29:00 EDT, REC Powder, [facility]/pharmacy #[id number], Partial fill upon patient request if the prescription is for a schedule II... Start Date: 02/13/21 Stop Date: 02/27/21 Status: Ordered oxyCODONE 5 mg oral tablet 5 mg, 1, tablet, By Mouth, 5 times a day, DRAWING TRACER checked., # 140 tablet, Refills 0, Tot. Refills 0, Maintenance, 01/16/21 10:52:00 EDT, Route to Pharmacy Electronically, [facility]/pharmacy #[id number], Partial fillupon patient request [...] 12/28/20 12:50:00 EDT, Route to Pharmacy Electronically, [facility], Partial fill upon patient [...] 11/07/20 Active 1angioplasty 2000; 3 stents at [facility] 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 [...]
--- OUTSIDE RECORDS SUMMARY | 2023-04-11 15:23 | XMS_ITS | Continuity of Care Document ---
Author Name Unknown Organization [facility] Adult Address [address] [place] [address]- Care Team Providers Care Busher Helper Name Role Phone Luiz SALAS, Sonya Primary Care Physician [place] [facility] [place] 08/07[place]21 - 09/06/21 [facility] Adult [address] [place] [id number]- Allergies, Adverse Reactions, Alerts Substance Reaction Severity [...] capsule, 11 Refills, Maintenance,05/02/21 10:36:00 EST, Capsule, [facility]/pharmacy #[id number], Partial fill upon patient request if the prescription is for a schedule II opioid drug., 178, cm, 0... Start Date: 05/02/21 Stop Date: 04/27/22 Status: Ordered clonazePAM 0.5 mg oral tablet 1 tablet = 0.5 mg, By Mouth, 3 times a day, # 90 tablet, 1 Refills, Maintenance, 07/25/21 17:16:00 EDT, Tablet, [facility]/pharmacy #[id number], Partial fill upon patient request if the prescription is for a schedule II opioid drug., 178, cm, 07/24/21 16:10:00 EDT... Start Date: 07/25/21 Stop Date: 09/23/21 Status: Ordered clopidogrel 75 mg oral tablet 1, tablet, By Mouth, Daily, # 90 tablet, Refills 1, Route to Pharmacy Electronically, [facility] [id number], 178, cm, 05/11/21 8:52:00 EST, Height, 81, kg, 05/06/21 2:22:00 EST, Dry Weight Start Date: 05/30/21 Status: Ordered glimepiride 4 mg oral tablet 1 tablet, By Mouth, 2 times a day, # 60 tablet, 5 Refills, Maintenance, 05/02/21 10:36:00 EST, [facility]/pharmacy #[id number], 178, cm, 04/27/21 4:54:00 EST, [...] 5 Refills, Maintenance, 05/02/21 10:36:00 EST, Tablet, [facility]/pharmacy #[id number], Partial fill upon patient request, 178, cm, 04/27/21 4:54:00 EST,Height, 84.3, kg, 04/23/21 2:54:00 EST, Dry Weight Start Date: 05/02/21 Status: Ordered oxyCODONE 5 mg oral tablet 5 mg, 1, tablet, By Mouth, 5 times a day, FURNITURE FINISHER checked., # 140 tablet, Refills 0, Tot. [...] 05/02/21 10:38:00 EST, Route to Pharmacy Electronically, [facility]/pharmacy #[id number], Partial fill upon patient request if the [...]
--- OUTSIDE RECORDS SUMMARY | 2023-04-11 15:23 | XMS_ITS | Continuity of Care Document ---
Author Name Unknown Organization [facility] Adult Address [address] [place] [address]- Care Team Providers Care Cut Tobacco Bulker Name Role Phone Luiz SALAS, Sonya Primary Care Physician Encounter [facility] Date(s): 09/11/21 - 10/11/21 [facility] [address] [place] [id number]- Allergies, Adverse Reactions, Alerts Substance Reaction Severity [...] tablet, Refills 1, Route to Pharmacy Electronically, [id number], 178, cm, 05/11/21 8:52:00 EST, Height, 81, [...] tablet, By Mouth, 5 times a day, PROCUREMENT OFFICER checked. fill on 09/15/21 20 tabs go [...] Active 1angioplasty 2000; 3 stents at [facility] 2R frontal stroke secondary to [...]
--- OUTSIDE RECORDS SUMMARY | 2023-04-11 15:23 | XMS_ITS | Continuity of Care Document ---
Author Name Unknown Organization [facility] Adult Address [address] [place] [address]- Care Team Providers Care Home Office Representative Name Role Phone Luiz SALAS, Sonya Primary Care Physician Encounter [facility] Date(s): 08/01/22 - 11/21/22 [facility] [address] [place] [address]- Attending Physician: Not on Staff, Attending MD [...] Given Patient Refuses 1Result Comment: [facility] [place][NOTE 2]: [id number] Medications albuterol-ipratropium 3 mg-0.5 mg/3 ml inhalation [...] 1 Refills, Maintenance, 07/31/22 13:23:00 EDT, [facility], 178, cm, 07/23/22 11:32:00 EDT, Height, 72.5, kg, 03/08/22 4:29:00 EST, Dry Weight Start Date: 07/31/22 Status: Ordered atorvastatin 40 mg oral tablet 1 tablet, By Mouth, Daily at bedtime, # 28 tablet, 5 Refills, Maintenance, 07/31/22 13:23:00 EDT, [facility], 178, cm, 07/23/22 11:32:00 EDT, [...] 13:50:00 EDT, Route to Pharmacy Electronically, [facility], 178, cm, 10/26/22 14:30:00 EDT, [...] 13:25:00 EDT, Route to Pharmacy Electronically, [facility], 178, cm, 07/23/22 11:32:00 EDT, Height, [...] 0 Refills, Maintenance, 10/25/22 9:55:00 EDT, [facility], 178, cm, 10/25/22 7:25:00 EDT, Height, 79.5, kg, 10/20/22 13:34:00 EDT, Dry Weight Start Date: 10/25/22 Status: Ordered pantoprazole 40 mg oral delayed release tablet 1 tablet, By Mouth, Daily, # 90 tablet, 0 Refills, Maintenance, 10/25/22 9:55:00 EDT, 178, cm, 10/25/22 7:25:00 EDT, Height, 79.5, kg, 10/20/22 13:34:00 EDT, Dry Weight Start Date: 10/25/22 Status: Ordered pregabalin 75 mg oral capsule 1 capsule = 75 mg, By Mouth, Daily, # 30 capsule, 1 Refills, Maintenance, 11/16/22 20:08:00 EDT, Capsule, [facility], Partial fill upon patient request if the prescription is for a schedule II opioid drug., 178, cm, 10/26/22 14:30:00 EDT,... Start Date: 11/16/22 Stop Date: 01/15/23 Status: Ordered sertraline 25 mg oral tablet 1 tablet, By Mouth, Daily, # 90 tablet, 1 Refills, Maintenance, 07/31/22 13:26:00 EDT, [facility], 178, cm, 07/23/22 11:32:00 EDT, Height, 72.5, kg, 03/08/22 4:29:00 EST, Dry Weight Start Date: 07/31/22 Status: Ordered tamsulosin 0.4 mg oral capsule 0.4 mg, 1, capsule, By Mouth, Daily, # 30 capsule, Refills 1, Tot. Refills 1, Maintenance, 11/17/2319:10:00 EDT, Route to Pharmacy Electronically, [facility], Partial fill upon patient request if the prescription is for a schedule II opio... Start Date: 11/16/22 Stop Date: 01/15/23 Status: Ordered Vitamin B1 100 mg oral [...] 0 Refills, Maintenance, 10/24/22 19:19:00 EDT, [facility], 178, cm, 10/24/22 13:06:00 EDT, Height, 79.5, [...] Active 1angioplasty 2000; 3 stents at [facility] 2R frontal stroke secondary to [...] Team Personnel Name: Adelia Landry RN Position: [facility] RN Member Role: Primary Care Nurse Name: Alicia Negron Position: [facility] RN Member Role: Primary Care Nurse Name: Hanna Dailey Position: [facility] RN Member Role: Primary Care Nurse Name: Nereida Dobbins RN Position: [facility] RN Member Role: Primary Care Nurse Name: Gela Orosco RN Position: [facility] RN Member Role: Primary Care Nurse Name: Jessica Castrejon RN Position: [facility] RN Member Role: Primary Care Nurse Name: Hien Hidalgo RN Position: [facility] RN Member Role: Primary Care Nurse Name: Phuong Balderas RN Position: [facility] SN RN Member Role: Primary Care Nurse Name: Evelyn Mcnulty RN Position: [facility] RN Member Role: Primary Care Nurse Name: Yanely Shanks RN Position: [facility] RN Member Role: Primary Care Nurse Name: Sonya Dee NP Position: [facility] PCO Associate Professional Member Role: PCP Address: Address: [address] [place] [address], [address] Name: Pola Reid RN Position: [facility] RN Supv Member Role: Primary Care Nurse Name: Betzy Beckford RN Position: [facility] RN Member Role: Primary Care Nurse Name: Zully Jara Position: [facility] RN Member Role: Primary Care Nurse Name: Yunior Bui RN Position: [facility] RN Member Role: Primary Care Nurse Name: Candace Liang RN Position: [facility] RN Member Role: Primary Care Nurse Name: Dedra Lezama Position: [facility] RN Member Role: Primary Care Nurse Name: Pat Fernando RN Position: [facility] RN Member Role: Primary Care Nurse Name: Randa Sagastume RN Position: [facility] RN Member Role: Primary Care Nurse Name: Mitra Patel Position: [facility] RN Member Role: Primary Care Nurse Name: Kacie Campbell RN Position: [facility] RN Member Role: Primary Care Nurse Name: Charito Vazquez RN Position: [facility] ED RN W/OE and Tasks Member Role: Primary Care Nurse Name: Dylan Bond RN Position: [facility] RN Member Role: Primary Care Nurse Name: Lydia Doherty RN Position: [facility] RN Member Role: Primary Care Nurse Name: Elie Davis RN Position: [facility] RN Member Role: Primary Care Nurse Name: Delfina Still RN Position: [facility] RN Member Role: Primary Care Nurse Name: Chandni Gibbons RN Position: [facility] SN RN Member Role: Primary Care Nurse Name: Viry Zacarias RN Position: [facility] RN Member Role: Primary Care Nurse Name: Kerri Cunha RN Position: [facility] Hospital Navy Fighter Pilot Member Role: Primary Care Nurse Name: Atiya Mcintyre RN Position: [facility] RN Member Role: Primary Care Nurse Care Team Related Persons Name: IBETH BRUNNER Address: home [address] [place] [address] Name: IBETH CORRAL Address: home [address] [place], [place]
--- OUTSIDE RECORDS SUMMARY | 2023-04-11 15:23 | XMS_ITS | Continuity of Care Document ---
Author Name Unknown Organization [facility] Adult Address [address] [place] [address]- Care Team Providers Care Drive Shaft And Steering Post Repairer Name Role Phone Luiz SALAS, Sonya Primary Care Physician [phone] [place] [facility] [place] 05/11/[place] - 06/10/[address] [facility] [address] [place] [id number]- Attending Physician: AdmJacobo lopez Admitting Physician: Admtr, Ar8 Referring Physician: Admtr, Ar8 Allergies, Adverse Reactions, [...] 10:30:00 EDT, 01/16/21 10:30:00 EDT, Tablet, [id number], Partial fill upon patient request if the prescription is for a schedule II opioid drug., 178, cm... Start Date: 01/16/21 Stop Date: 07/15/21 Status: Ordered atorvastatin 40 mg oral tablet 1 tablet = 40 mg, By Mouth, Daily at bedtime, # 30 tablet, 5 Refills, Maintenance, 05/02/21 10:38:00 EST, Tablet, [facility]/pharmacy #[id number], Partial fill upon patient request if the prescription is for a schedule II opioid drug., 178, cm, 04/27/21 4:54:00 ES... Start Date: 05/02/21 Stop Date: 10/29/21 Status: Ordered cholecalciferol 50,000 intl units oral capsule 1 capsule = 50,000 International_Units, By Mouth, Every week, # 5 capsule, 11 Refills, Maintenance,05/02/21 10:36:00 EST, Capsule, [facility]/pharmacy #[id number], Partial fill upon patient request if the prescription is for a schedule II opioid drug., 178, cm, 0... Start Date: 05/02/21 Stop Date: 04/27/22 Status: Ordered clonazePAM 0.5 mg oral tablet 1 tablet = 0.5 mg, By Mouth, 3 times a day, # 90 tablet, 1 Refills, Maintenance, 05/02/21 12:49:00 EST, Tablet, [facility]/pharmacy #[id number], Partial fill upon patient request if the prescription is for a schedule II opioid drug., 178, cm, 04/27/21 4:54:00 EST,... Start Date: 05/02/21 Stop Date: 07/01/21 Status: Ordered clopidogrel 75 mg oral tablet 1, tablet, By Mouth, Daily, # 90 tablet, Refills 1, Route to Pharmacy Electronically, [facility] [id number], 178, cm, 05/11/21 8:52:00 EST, Height, 81, kg, 05/06/21 2:22:00 EST, Dry Weight Start Date: 05/30/21 Status: Ordered glimepiride 4 mg oral tablet 1 tablet, By Mouth, 2 times a day, # 60 tablet, 5 Refills, Maintenance, 05/02/21 10:36:00 EST, [facility]/pharmacy #[id number], 178, cm, 04/27/21 4:54:00 EST, Height, 84.3, kg, 04/23/21 2:54:00 EST, Dry Weight Start Date: 05/02/21 Status: Ordered lactulose 10 gm/15 ml oral syrup 15 mL, By Mouth, Daily, PRN NEEDED FOR CONSTIPATION, # 473 mL, 0 Refills, [facility] 104[facility], 30, TAKE 15 ML BY MOUTH DAILY NEEDED FOR CONSTIPATION, 178, cm, 03/13/21 13:09:00 EST, Height, 100, kg, 12/26/20 16:53:00 EDT, Dry Weight Start Date: 04/20/21 Status: Ordered lisinopril 10 mg oral tablet 10 mg, 1, tablet, By Mouth, Daily, for 30 days, # 30 tablet, Refills 5, Tot. Refills 5, Hard Stop 07/15/21 10:29:00 EDT, 01/16/21 10:29:00 EDT, Route to Pharmacy Electronically, [facility]/pharmacy #[id number], Partial fill upon patient request if the prescription... Start Date: 01/16/21 Stop Date: 07/15/21 Status: Ordered magnesium oxide 400 mg oral tablet 1 tablet = 400 mg, By Mouth, Daily, for 30 days, # 30 tablet, 5 Refills, Acute 10/29/21 10:39:00 EDT, 05/02/21 10:39:00 EST, Tablet, [facility]/pharmacy #[id number], Partial fill upon patient request if the prescription is for a schedule II opioid drug., 178, cm,... Start Date: 05/02/21 Stop Date: 10/29/21 Status: Ordered metFORMIN 1000 mg oral tablet 1 tablet = 1,000 mg, By Mouth, 2 times a day, # 60 tablet, 5 Refills, Maintenance, 05/02/21 10:36:00 EST, Tablet, [facility]/pharmacy #[id number], Partial fill upon patient request, 178, cm, 04/27/21 4:54:00 EST,Height, 84.3, kg, 04/23/21 2:54:00 EST, Dry Weight Start Date: 05/02/21 Status: Ordered oxyCODONE 5 mg oral tablet 5 mg, 1, tablet, By Mouth, 5 times a day, MANAGER IT SECURITY checked., # 140 tablet, Refills 0, Tot. Refills 0, Maintenance, 06/05/21 16:38:00 EST, Route to Pharmacy Electronically, [facility]/pharmacy #[id number], Partial fillupon patient request if [...] EST, Route to Pharmacy Electronically, [facility]/pharmacy #[id number], Partial fill upon patient request if the prescription is for a sc... Start Date: 05/02/21 Stop Date: 10/29/21 Status: Ordered Problem List Condition Effective Dates Status Health Status Inform ant Benign hypertension(Confirmed) Active CAD (coronary artery disease)(Confirmed) 1 Active Chronic lower back pain(Confirmed) Active Diabetes mellitus(Confirmed) Active Encephalopathy(Confirmed) Active Dyslipidemia(Confirmed) Active Acute ischemic stroke(Confirmed) 2 11/07/20 Active 1angioplasty 2000; 3 stents at [facility] 2R frontal stroke secondary to [...]
--- OUTSIDE RECORDS SUMMARY | 2023-04-11 15:23 | XMS_ITS | Continuity of Care Document ---
Author Name Unknown Organization [facility] Adult Address [address] [place] [address]- Care Team Providers Care Change Manager Name Role Phone Luiz SALAS, Sonya Primary Care Physician Encounter [facility] Date(s): 08/17/21 - 09/16/21 [facility] [address] [place] [phone]- Allergies, Adverse Reactions, Alerts Substance Reaction Severity [...] Refills, Maintenance, 05/02/21 10:38:00 EST, Tablet, [id number], Partial fill upon patient request if the [...] tablet, Refills 1, Route to Pharmacy Electronically, [facility], 178, cm, 05/11/21 8:52:00 EST, Height, 81, [...] tablet, By Mouth, 5 times a day, EARLY YEARS TEACHER checked. fill on 09/15/21 20 tabs go [...] 05/02/21 10:38:00 EST, Route to Pharmacy Electronically, [facility]/pharmacy #[id number], Partial fill upon patient [...] 11/07/20 Active 1angioplasty 2000; 3 stents at [facility] 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 [...]
--- OUTSIDE RECORDS SUMMARY | 2023-04-11 15:23 | XMS_ITS | Continuity of Care Document ---
Author Name Unknown Organization [facility] ter Address [address] [place] [id number] Care Team Providers Care Button Breaker Name Role Phone Luiz SALAS, Sonya Primary Care Physician Encounter [facility] Date(s): 12/27/22 - 12/31/[address] [id number] Discharge Disposition: A-Transfer SNF Attending Physician: Jennifer Oh MD Admitting Physician: Jennifer Oh MD Referring Physician: Not on Staff, Referring [...] vaccine 02/04/13 Recorded 1Result Comment: [facility]: [id number] Medications Acetaminophen = 650 mg, By Mouth, [...] EDT, .. Start Date: 11/23/22 Status: Ordered Keppra 500 [...] oral tablet 5 mg, Tablet, By Mouth, 12/31/22 9:00:00 EDT Start Date: 12/31/22 Stop Date: 12/31/22 Status: Completed lisinopril 5 mg oral tablet [...] 11/28/22 Status: Ordered oxyCODONE 5 mg oral tablet See Instructions, PRN, 5 mg By Mouth Every 6 hours prn pain, # 12 tablet, Refills 0, Tot. Refills 0, Acute 01/03/23 10:16:00 EDT, Pain , Moderate, 12/31/22 10:16:00 EDT, Instructions Replace RequiredDetails, Print Requisition, Partial fill upon patie... Start Date: 12/31/22 Stop Date: 01/03/23 Status: Ordered pantoprazole 40 mg [...] opioid drug. 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 S/P Elective Coiling of Unruptured Aneurysm with Subsequent Left-Sided Weakness: Acute nonhemorrhagic infarct in the RIGHT posterior frontal lobe: Results Radiology Reports * Exam Date Time Procedure Performing Provider Status 12/27/22 6:16 PM C-Arm < 1 Hour Celso Begum; Auth (Armand ified) Notes: (C-Arm < 1 Hour) Reason For Exam: Left Hip FX Pinning RESULT: C-Arm < 1 Hour Hip Comp 2 Views Left, C-Arm < 1 Hour INDICATION: Reason: Left Hip FX Pinning COMPARISONS: Left hip radiographs 12/26/2022 TECHNIQUE: Fluoroscopy support was provided. There was no radiologist in attendance. FLUOROSCOPY TIME: 46 seconds EXPOSURE: 1.973 Gycm2 (Dose Area Product) TECHNOLOGIST TIME: 35 minutes FINDINGS: Intraoperative fluoroscopic assistance provided. Images demonstrate pinning of a subcapital femoralneck fracture with 3 partially corticated cannulated screws. Appropriate anatomic alignment. Pleasesee operative report for further details. IMPRESSION: See above. WSN: [id number] Ordering Physician: Jennifer Oh Dictated By: Donald Allen MD Dictated Date/Time: 12/28/22 11:15 a Reviewed By: Donald Allen MD Signed By: Donald Allen MD Signed Date/Time: 12/28/22 11:15 am Transcribed By: NADREAS Transcribed Date/Time: 12/28/22 11:13 am * Exam Date Time Procedure Performing Provider Status 12/27/22 6:16 PM XR Hip Comp 2 Views Left Celso Begum; Auth (Verified) Notes: (XR Hip Comp 2 Views Left) Reason For Exam: Left Hip FX Pinning RESULT: Hip Comp 2 Views Left Hip Comp 2 Views Left, C-Arm < 1 Hour INDICATION: Reason: Left Hip FX Pinning COMPARISONS: Left hip radiographs 12/26/2022 TECHNIQUE: Fluoroscopy support was provided. There was no radiologist in attendance. FLUOROSCOPY TIME: 46 seconds EXPOSURE: 1.973 Gycm2 (Dose Area Product) TECHNOLOGIST TIME: 35 minutes FINDINGS: Intraoperative fluoroscopic assistance provided. Images demonstrate pinning of a subcapital femoralneck fracture with 3 partially corticated cannulated screws. Appropriate anatomic alignment. Pleasesee operative report for further details. IMPRESSION: See above. WSN: [id number] Ordering Physician: Jennifer Oh Dictated By: Donald Allen MD Dictated Date/Time: 12/28/22 11:15 a Reviewed By: Donald Allen MD Signed By: Donald Allen MD Signed Date/Time: 12/28/22 11:15 am Transcribed By: ANDREAS Transcribed Date/Time: 12/28/22 11:13 am * Exam Date Time Procedure Performing Provider Status 12/27/22 3:21 AM XR Femur 2 Views Left Gia Ward (Verified) Notes: (XR Femur 2 Views Left) Reason For Exam: Pain RESULT: Femur 2 Views Left Femur 2 Views Left, 2 views Reason: Pain; Clinical Question(s): Fracture COMPARISON: 12/26/2022. FINDINGS: Nondisplaced probably slightly impacted subcapital femoral neck fracture. Very small suspected displaced fracture fragment is seen inferior to the inferior margin of the femoral neck. There is a small left knee joint effusion. IMPRESSION: Unchanged nondisplaced subcapital femoral neck fracture. I have personally reviewed the images and I agree with this report. WSN: [id number] Ordering Physician: Pablito Casper Dictated By: Cesia Lopez MD Dictated Date/Time: 12/27/22 8:41 am Reviewed By: Michelle Valverde MD Signed By: Michelle Valverde MD Signed Date/Time: 12/27/22 8:46 am Transcribed By: ANDREAS Transcribed Date/Time: 12/27/22 8:21 am * Exam Date Time Procedure Performing Provider Status 12/27/22 3:[address] Cervical Spine W/O Contrast Do Vo (Verified) Notes: (CT Cervical Spine W/O Contrast) Reason For Exam: Neck trauma, dangerous injury mechanism;Other: RESULT: CT Cervical Spine W/O Contrast CT Head/Brain W/O Contrast, CT Cervical Spine W/O Contrast INDICATION: Trauma; TECHNIQUE: Noncontrast head CT using axial technique was reconstructed in axial and coronal planes.Noncontrast spiral CT through the cervical spine was formatted in 3 planes. Automatic tube modulation was used for the cervical spine and iterative dose reconstruction was used for both the head and cervical spine to optimize scan parameters and image quality. CTDIvol Body: 13.70 mGy, DLP Body: 353 mGy*cm. CTDIvol Head: 41.40 mGy, DLP Head: 672 mGy*cm. COMPARISON: 12/12/2022 FINDINGS: Singing Waiter Or Waitress View Findings, Lines and Tubes: None. BRAIN AND EXTRA-AXIAL SPACES: Encephalomalacia in the right frontal lobe with associated ex vacuo dilatation of the frontal horn of the right ventricle. Coil material within the right MCA. No parenchymal hemorrhage, midline shift, or mass effect. Paulino-white matter differentiation is wellpreserved. No acute infarct. Negative insular ribbon sign. Atherosclerotic vascular calcification of the carotid arteries but negative hyperdense vessel sign. Moderate prominence of the ventricles and sulci consistent with parenchymal volume loss. Mild low-density white matter changes. No subarachnoid hemorrhage. No subdural or epidural collection. CALVARIUM, SKULL BASE, AND SOFT TISSUES: No fractures or suspicious bony lesions. Moderate opacification of the right maxillary sinus. Status-post bilateral lens extraction. The extracranial soft tissues are unremarkable. CERVICAL SPINE: No fracture. No acute osseous abnormalities. Normal alignment. No locked or perched facet. Mild multilevel degenerative disc space narrowing andend plate irregularity. OTHER BONES: No acute abnormality. CERVICAL SOFT TISSUES AND LUNG APICES: Normal soft tissues. Visualized lung apices are clear. IMPRESSION: 1. No evidence of acute intracranial abnormality. 2. No evidence of acute fracture or dislocation of the cervical spine. 3. Stable right frontal encephalomalacia with associated ex vacuo dilatation of the right lateral ventricle. The impression above was relayed to Sarah Shook PA by Dr. Carlos Cunha via [employer] with acknowledgement received on 12/27/2022 at 3:39 AM. I have personally reviewed the images and I agree with this report. WSN: [id number] Ordering Physician: Sarah Shook Dictated By: Carlos Cunha MD Dictated Date/Time: 12/27/22 7:27 am Reviewed By: Jose Vasquez MD Signed By: Jose Vasquez MD Signed Date/Time: 12/27/22 7:32 am Transcribed By: ANDREAS Transcribed Date/Time: 12/27/22 3:39 am * Exam Date Time Procedure Performing Provider Status 12/27/22 3:[address] Head/Brain W/O Contrast Kalyani Vo; Auth (Verified) Notes: (CT Head/Brain W/O Contrast) Reason For Exam: Trauma RESULT: CT Head/Brain W/O Contrast CT Head/Brain W/O Contrast, CT Cervical Spine W/O Contrast INDICATION: Trauma; TECHNIQUE: Noncontrast head CT using axial technique was reconstructed in axial and coronal planes.Noncontrast spiral CT through the cervical spine was formatted in 3 planes. Automatic tube modulation was used for the cervical spine and iterative dose reconstruction was used for both the head and cervical spine to optimize scan parameters and image quality. CTDIvol Body: 13.70 mGy, DLP Body: 353 mGy*cm. CTDIvol Head: 41.40 mGy, DLP Head: 672 mGy*cm. COMPARISON: 12/12/2022 FINDINGS: Singing Waiter Or Waitress View Findings, Lines and Tubes: None. BRAIN AND EXTRA-AXIAL SPACES: Encephalomalacia in the right frontal lobe with associated ex vacuo dilatation of the frontal horn of the right ventricle. Coil material within the right MCA. No parenchymal hemorrhage, midline shift, or mass effect. Paulino-white matter differentiation is wellpreserved. No acute infarct. Negative insular ribbon sign. Atherosclerotic vascular calcification of the carotid arteries but negative hyperdense vessel sign. Moderate prominence of the ventricles and sulci consistent with parenchymal volume loss. Mild low-density white matter changes. No subarachnoid hemorrhage. No subdural or epidural collection. CALVARIUM, SKULL BASE, AND SOFT TISSUES: No fractures or suspicious bony lesions. Moderate opacification of the right maxillary sinus. Status-post bilateral lens extraction. The extracranial soft tissues are unremarkable. CERVICAL SPINE: No fracture. No acute osseous abnormalities. Normal alignment. No locked or perched facet. Mild multilevel degenerative disc space narrowing andend plate irregularity. OTHER BONES: No acute abnormality. CERVICAL SOFT TISSUES AND LUNG APICES: Normal soft tissues. Visualized lung apices are clear. IMPRESSION: 1. No evidence of acute intracranial abnormality. 2. No evidence of acute fracture or dislocation of the cervical spine. 3. Stable right frontal encephalomalacia with associated ex vacuo dilatation of the right lateral ventricle. The impression above was relayed to Sarah Shook PA by Dr. Carlos Cunha via [employer] with acknowledgement received on 12/27/2022 at 3:39 AM. I have personally reviewed the images and I agree with this report. WSN: [id number] Ordering Physician: Sarah Shook Dictated By: Carlos Cunha MD Dictated Date/Time: 12/27/22 7:27 am Reviewed By: Jose Vasquez MD Signed By: Jose Vasquez MD Signed Date/Time: 12/27/22 7:32 am Transcribed By: ANDREAS Transcribed Date/Time: 12/27/22 3:39 am Vital Signs Most recent to oldest [Reference Range]: 1 2 3 Height 178 cm (12/31/22 9:57 AM) 178 cm (12/31/22 7:40 AM) 178 cm (12/31/22 4:24 AM) Weight 77.1 kg (12/27/22 6:55 PM) 77.7 kg (12/27/22 2:59 PM) Oxygen Saturation [94-100 %] 100 % (12/31/22 9:57 AM) 100 % (12/31/22 7:40 AM) 98 % (12/31/22 4:24 AM) Pulse Rate [55-90 bpm] 66 bpm (12/31/22 9:57 AM) 56 bpm (12/31/22 7:40 AM) 56 bpm (12/31/22 4:24 AM) Body Mass Index [18.5-24.99 kg/m2] 24.33 kg/m2 (12/27/22 6:55 PM) Blood Pressure [90-138/55-84 mm Hg] 118/55mm Hg (12/31/22 9:57 AM) 140/59mm Hg *H* (12/31/22 7:40 AM) 140/59mm Hg *H* (12/31/22 7:31 AM) Respiratory Rate [16-30 br/min] 20 br/min (12/31/22 9:57 AM) 18 br/min (12/31/22 7:40 AM) 18 br/min (12/31/22 5:22 AM) Temperature [96.8-100.4 DegF] 97.8 DegF (12/31/22 9:57 AM) 97.8 DegF (12/31/22 7:40 AM) 98.7 DegF (12/31/22 4:24 AM) Liters per Minute 2 L/min (12/28/22 4:13 AM) 2 L/min (12/27/22 11:41 PM) 2 L/min (12/27/22 6:55 PM) Mode of Delivery (Oxygen) Room air (12/31/22 9:57 AM) Room air (12/31/22 7:40 AM) Room air (12/31/22 4:24 AM) Blood pressure sites Arm, left (12/31/22 7:40 AM) Arm, right (12/31/22 4:24 AM) Arm, left (12/30/22 7:52 PM) Temperature Route Oral (12/31/22 9:57 AM) Oral (12/31/22 7:40 AM) Oral (12/31/22 4:24 AM) Dry Weight 77.1 kg (12/27/22 6:55 PM) 77.7 kg (12/27/22 2:59 PM) Weight Obtained Via Bed scale (12/27/22 6:55 PM) Patient/family stated (12/27/22 2:59 PM) Dry Weight Obtained Via Bed scale (12/27/22 6:55 PM) Social History Social History Type Response Smoking Status 10 or more cigarette s (1/2 pack or more)/day in last 30 days; Interested in cessation: No; Patient wants NRT during admission Yes; Tobacco use times per day: 1PPD; Number of years: 53; Total pack years: 53; Started at age: 13; entered on: 03/08/22 Sex Cardiology * Event Display: Cardiac Rhythm Strips Authored Date: Hospital Progress note * Carlos SAVAGE, Karl Cisneros: PERFORM, MODIFY Event Display: Progress Note Hospital Authored Date: This patient was seen today by me at 11 AM. I was called to see this patient acutely because he was complaining of blurriness of vision. The plan otherwise was to discharge him today. The patient notes that he is feeling pretty well today. No major complaints otherwise. Not short ofbreath no chest pain no nausea no vomiting. He is eager to leave here today to go to rehab. From a visual standpoint he notes that about 1/2-hour before I saw him he began to notice blurring of his eyes both sides. It is definitely not unilateral. It is just a generalized blurring. Its not preventing him from actually seeing things or reading things but it is not normal baseline. He notes that it seems to be the same for distance as to up close. He does wear glasses usually butdoes not have them with him but he has not had them for the previous 4 hospital days. There is no eye pain. There is no loss of vision. There is no blackouts of vision there are no scintillations or floaters. He has no headache. Blood pressures have been good sugars have been good Patient does have a history of a past stroke but that manifested with left hand numbness which is chronic and left lower extremity weakness. That persist as well. He notes absolutely no changes in any of those types of symptoms or findings today. He has no nausea no vomiting. On exam: Patient appeared well he was awake alert oriented particularly flat affect but some of this may be because of his history of vascular dementia. He was however watching TV he had the control in his hand was able to hit the appropriate buttons to muted. He exhibited no other significant concerns. Vital signs today show temperature 97 heart rate 56 respiratory 18 blood pressure 140/59 O2 sat 100% on room air Oral mucosa was moist neck was supple lungs clear to auscultation heart exam S1- S2 normal no S3 or S4 Neurological exam cranial nerves appear to be intact tongue extends midline can move unilateral bilaterally without difficulties. Patient can open his mouth and normal jaw excursion. Motor strength is intact and normal in the upper extremities. Motor strength is decreased in the left lower extremity to about 3 out of 5 compared to 5 out of 5 on the other side. He says that is chronic. That is also the site he just that operated on. He is able to flex and extend the lower extremities in the ankles and wiggle the toes. Reflexes diffusely diminished. Muscle bulk and tone seem normal otherwise. The patient can see light and shadowsnormally in both eyes. Covering each eye separately he notices no difference in the visual yap or the mild blurring that he notes. Laboratory studies reviewed for today to show blood sugars that are acceptable. Assessment and plan: John is a 67 year old male with PMH CVA on Aspirin/Plavix, vascular dementia, possible focal seizures on Keppra, HTN, CAD on Aspirin/Plavix, COPD, Non-insulin dependent DM, anemia and CLEOPATRA on CPAP who presented from [facility] due to a fall. Medicine consult requested for optimization priorto surgery and medical comanagement. Patient is being discharged today by the surgical service. We are pretty much done with any assessments required for this hospital stay. --Visual blurring: He did have this complaint of bilateral visual blurring this morning. The history was not suggestive of anything else serious. The physical exam was pretty much innocent and unremarkable for any other new motor or other abnormalities. The visual yap were not tested in formal detail because of it and have the right tools for that but generally speaking it seems to be a mild impairment. I do not believe a further work-up is required right at this moment. I think he could still be discharged but he should monitor symptoms and staff should ask him about symptoms over the next day or so. This should give him back his glasses and see if the problem corrects. If it does not then he pryneeds a formal eye exam in the near future by his sow farm technician. Mechanical fall with left femoral neck fracture s/p orif --management per ortho --pain control currently adequate. Continuing prn oxycodone and scheduled tylenol history of cad. No current ischemic symptoms. Hypertension. BP slightly above target, likely secondary to pain he has been experiencing --continue asa, statin, and lisinopril. history of left hemispheric tia 03/13. vascular dementia He was on aspirin and plavix x 90 days with plans to continue aspirin subsequently.. --plavix not to be continued on discharge. -continue asa and statin DM 2 on metformin outside of hospital metformin held here. resume on discharge. --lantus and sliding scale to be continued. chronic problems seizure disorder. no seizure activity here. continue keppra. copd. no evidence of exacerbation. cleopatra continue cpap. The medical consultation service will sign off at this time. As the patient is being discharged today we will not be following up. I did communicate my thoughts and recommendations today to Xochilt Zapata of the orthopedic service. * Parvez GARAY, Imelda: MODIFY, SIGN, VERIFY, PERFORM Event Display: Progress Note Hospital Authored Date: [id number] Patient: JOHN SANDHU Age: 67 years Sex: Male : 1955 Associated Diagnoses: None Author: Imelda Hannon RN Findings Problem Related to Alteration in Comfort : Alteration in Comfort/new 12/31/2022 7:00 EDT Alteration in Comfort Related to Surgery, Other: left IM nailing POD#3 12/27 Goals & Outcomes: Comfort Pt will report acceptable level of comfort & pain control, Pt will demonstrate necessary skills to manage pain, Non-verbal indicators will indicate comfort/pain control Interventions Implemented: Comfort Assess pain using appropriate pain scale/tools, Assess aggravating factors & prevent them accordingly, Assess alleviating factors & promote them accordingly Goals/Interventions, Comfort Yes Comfort, Problem Start 12/28/2022 1:48 Reviewed plan with, Comfort Patient Patient Progression, Comfort Pt progressing according to plan Comfort, Problem Ongoing Yes . Alteration in Musculoskeletal : Alteration in Musculoskeletal Func/new 12/31/2022 7:00 EDT Alteration in Musculoskeletal Related to Mobility, Orthopedic Procedure, Other: left hip pinning Goals & Outcomes, Musculoskeletal Affected extremity will maintain color/motion/sensation, Pt able to perform ADL's to best of ability, Pt will ambulate safely with assistive device, Pt will report acceptable level of comfort/pain relief Interventions, Musculoskeletal Monitor patients ambulation status, monitor Color/Motion/Sensation, Assist with repositioning, Encourage deep breathing & coughing exercises, Notify MD immediately if tissue perfusion deteriorates, Obtain assistive devices as needed, Teach & Encourage use of Incentive spirometer, Teach Pt/caregiver on ADL's & adaptive equipment, Teach Pt/caregiver on exercises, Teach pt/caregiver on use of pain scale, Teach Pt/caregiver complications of immobility, Teach Pt/caregiver techniques to increase mobility, Teach Pt/caregiver on safety precautions, Incision care as ordered Goals/Interventions, Musculoskeletal Yes Musculoskeletal, Problem Start 12/28/2022 1:47 Reviewed Plan with, Musculoskeletal Patient Patient Progression, Musculoskeletal Pt progressing according to plan . Nursing Data Vital Signs : VITAL SIGNS SECTION 12/31/2022 7:40 EDT Early Warning Score 2.00 12/31/2022 7:40 EDT Early Warning Score 0.00 12/31/2022 7:40 EDT Temperature 97.8 DegF Temperature Route Oral Pulse Rate 56 bpm Respiratory Rate 18 br/min Systolic Blood Pressure 140 mm Hg H Diastolic Blood Pressure 59 mm Hg Blood pressure sites Arm, left Mean Arterial Pressure 86 mm Hg Pulse Pressure 81 mm Hg Oxygen Saturation 100 % Mode of Delivery (Oxygen) Room air 12/31/2022 7:31 EDT Systolic Blood Pressure 140 mm Hg H Diastolic Blood Pressure 59 mm Hg . Narrative/Incidental Patient oriented to questions to self, time, place, but is forgetful at times. POD # 4 for L hip IMpinning.Aquacel CDI. +CMS, +DF, +PF, +PP to L LE. Encouraged ank pumps x 20 reps/hr. Lovenox and C-Boots for DVT prophylaxis. C/o pain /. Patient is resting comforting. Does not appear in any distress. Scheduled an prn pain meds given with + effect. Denies CP, SOB, N/V. CM with NSR. LS CTA. occ p roductive cough. Abd SRNT, +BS. LBM 12/30/22. Incontinent of bowel/bladder. [place] cath on with brieft as patient gets confused and pulls off Alo7. Takes meds whole with pudding. Eating and drinking with assistance for set up. Diab diet maintained. Therapeutic bed maintained. Turn & Reposition q 2 hours. Z guard applied to buttocks after pericare. Blanchable erythema to R buttocks. Safety checks completed. Bed in lowest locked position with call zamudio within reach. Alarm on for safety. Hourly rounding. . Evaluation P:Alteration in Musculoskeletal I: Interventions per Plan E:Patient oriented to questions to self, time, place, but is forgetful at times. POD # 4 for L hip IM pinning.Aquacel CDI. +CMS, +DF, +PF, +PP to L LE. Encouraged ank pumps x 20 reps/hr. Lovenox and C-Boots for DVT prophylaxis. C/o pain 11/29. Patient is resting comforting. Does not appear in any distress. Scheduled an prn pain meds given with + effect. Participates in PT/OT. Rehab recommended. Consult with Dean Lopez, application manager, going to [place] via ambulance @ 12:30. Report called to Diana Brunson RN, patient left with therapeutic bed with all belongings. manager lvn removed by PCTRosaura. . Discharge Information Rehabilitation Discharge : Rehab Discharge Index 12/30/2022 7:50 EDT Walker: distance < 10 12/29/2022 16:51 EDT Walker: distance 20-50 12/28/2022 8:48 EDT Comments on treatment indicated 67 yo M with PMH including dementia, h/o CVA, andrecent R hip pain (no acute findings on imaging) presenting after a fall at rehab, was found to have L femur fracture, now s/p ORIF L femur on 12/[address]. WBAT L LE, impulsive. Distance pt will ambulate 15 ft wiht RW Full chart review completed Yes Hospital course Hospital course Other findings see comment Plan of care PT Gait training, Transfer training, Therapeutic exercise, Functional Activities, Balance training 12/28/2022 7:41 EDT Comments on treatment indicated ADL's, funct mob, safety, pt edu Full chart review completed Yes Hospital course See comment * Pati GARAY, Lazara: PERFORM, SIGN, VERIFY Event Display: Progress Note Hospital Authored Date: Patient: JOHN SANDHU Age: 67 years Sex: Male : 1955 Associated Diagnoses: None Author: Lazara Krueger RN Findings Problem Related to Alteration in Comfort : Alteration in Comfort/new 12/30/2022 21:00 EDT Alteration in Comfort Related to Surgery, Other: left IM nailing POD#3 12/27 Goals & Outcomes: Comfort Pt will report acceptable level of comfort & pain control, Pt will demonstrate necessary skills to manage pain, Non-verbal indicators will indicate comfort/pain control Interventions Implemented: Comfort Assess pain using appropriate pain scale/tools, Assess aggravating factors & prevent them accordingly, Assess alleviating factors & promote them accordingly. Alteration in Musculoskeletal : Alteration in Musculoskeletal Func/new 12/30/2022 21:00 EDT Alteration in Musculoskeletal Related to Mobility, Orthopedic Procedure, Other:left hip pinning Goals & Outcomes, Musculoskeletal Affected extremity will maintain color/motion/sensation, Pt able to perform ADL's to best of ability, Pt will ambulate safely with assistive device, Pt will report acceptable level of comfort/pain relief Interventions, Musculoskeletal Monitor patients ambulation status, monitor Color/Motion/Sensation, Assist with repositioning, Encourage deep breathing & coughing exercises, Notify MD immediately if tissue perfusion deteriorates, Obtain assistive devices as needed, Teach & Encourage use of Incentive spirometer, Teach Pt/caregiver on ADL's & adaptive equipment, Teach Pt/caregiver on exercises, Teach pt/caregiver on use of pain scale, Teach Pt/caregiver complications of immobility, Teach Pt/caregiver techniques to increase mobility, Teach Pt/caregiver on safety precautions . Nursing Data Vital Signs : VITAL SIGNS SECTION 12/30/2022 19:52 EDT Temperature 97.9 DegF Temperature Route Oral Pulse Rate 67 bpm Respiratory Rate 20 br/min Systolic Blood Pressure 145 mm Hg H Diastolic Blood Pressure 65 mm Hg Blood pressure sites Arm, left Mean Arterial Pressure 92 mm Hg Pulse Pressure 80 mm Hg Oxygen Saturation 100 % Mode of Delivery (Oxygen) Room air . Narrative/Incidental Mr. John Sandhu, 67 year old male, A&O x 3 (name, place, date), pt. appears forgetful at times and can be impulsive, bedfast overnight. Pt. POD #3 for left hip IM pinning on 12/27, Pt. has CDI aquacel on left hip, +PP, +CMS, +D/P flexion. Pt. turn and repositioned Q2 during shift. Pt. endorsed 11/29 pain, received scheduled tylenol with +effect. Pt. awake most of night watching tv, appeared comfortable and relaxed. Pt. on tele monitoring running NS, HR: 60's, no c/o CP. Pt. on r/a, LSC, no cough, no SOB. Pt. incontinent of bowel/bladder, LBM: 10/29, +BS, abdomen SRNT, no N/V; pt. has brief in place for bowel bladder, urinated CYU. Pt. started shift with [place] cath, but kept removing catheter. Pt. on diabetic diet, HS POC: 143. See CIS for further assessments, labs, vitals and I&O's.All safety measures in place: therapeutic bed in lowest position, wheels locked, bed alarm on, callbell within reach, non-slips socks on bilateral feet and frequent purposeful rounding done. Pt. compliant wtih all scheduled HS medications and receives Lovenox for DVT prophylaxis.. Evaluation P: Alteration in Musculoskeletal Function I: See Above Care Plan for Interventions E: Pt. POD #3 for left hip IM pinning on 12/27, Pt. has CDI aquacel on left hip, +PP, +CMS, +D/P flexion. Pt. turn and repositioned Q2 during shift. P: Alteration in Comfort I: See Above Care Plan for Interventions E: Pt. endorsed 11/29 pain, received scheduled tylenol with +effect. Pt. awake most of night watching tv, appeared comfortable and relaxed.. Consult note * Michael SAVAGE, [facility]: MODIFY, MODIFY, MODIFY, PERFORM, MODIFY, MODIFY Event Display: Consultation Note Authored Date: Patient: ??JOHN SANDHU ? Age:??67 Years?Sex:??Male?:??1955?? Chief Complaint/Reason for Consultation Coming from [facility], [facility] [place]. Fell two days ago. Didnt send him out two days ago, sent him for Xray todau which revealed hip fx. Medicine consult for optimization prior to surgery History of Present Illness John is a 67 year old male with PMH CVA on Aspirin/Plavix, vascular dementia, possible focal seizures on Keppra, HTN, CAD on Aspirin/Plavix, COPD, Non-insulin dependent DM, anemia and CLEOPATRA on CPAP who presented from [facility] due to a fall. According to the patient he fell about two days ago when he was in the main room of the facility. He does not remember the exact circumstances around the fall but when asked if he hit his head he said I don't think so . He says he did not loose consciousness but does not remember if he felt dizzy or lightheaded at that time. At this time he denies any chest pain, SOB, cough, fever, nausea/vomiting or abdominal pain at this time. He does have some left hip pain ?? In the emergency department he is hemodynamically stable and saturating well on room air.?? On examination he does have left hip tenderness but no shortening or rotation.?? Labs show hemoglobin of 13.2 which is baseline, WBC 7.9.?? Chemistry panel shows normal electrolytes and well-controlled bloodsugars.?? Creatinine is 0.6.?? High-sensitivity troponin 16.?? COVID PCR is negative. ?? CT Head and neck and CT C spine shows?no evidence of acute intracranial abnormality,??no evidence of acute fracture or dislocation of the cervical spine. It shows??stable right frontal encephalomalacia with associated ex vacuo dilatation of the right lateral ventricle. ?? Review of Systems General: No fever, chills or rigors, night sweats. HEENT: No headache, no blurred vision, no sorethroat Cardiac: No Chest pain, chest pressure, No palpitations, No light headedness, Orthopnea. Respiratory: no Short of breath, no cough, Pleuritic chest pain, Wheezing. Abdomen: No diarrhea or constipation, no nausea or abdominal pain Nervous system: No headache, blurred vision, tingling or numbness or any weakness Genito urinary: No Urinary frequency, urgency or dysuria Musculoskeletal/ Extremities: +Left hip pain; no Bilateral Leg edema , no weakness, swelling or pain Skin: no rash , denies itching.?? Endocrine: No reports of sweating. No cold or heat intolerance. No polyuria or polydipsia. Allergic: No fever, itching, runny nose, sneezing Objective ? Vital Signs?? Temperature: 97.3 DegF (12/27/22 07:51:00) Temperature Route: Oral (12/27/22 07:51:00) Pulse Rate: 57 bpm (12/27/22 07:51:00) Respiratory Rate: 18 br/min (12/27/22 07:51:00) Systolic Blood Pressure:??142 mm Hg??High (12/27/22 07:51:00) Diastolic Blood Pressure: 72 mm Hg (12/27/22 07:51:00) Blood pressure sites: Arm, left (12/27/22 07:51:00) Mean Arterial Pressure: 95 mm Hg (12/27/22 07:51:00) Pulse Pressure: 70 mm Hg (12/27/22 07:51:00) Oxygen Saturation:??92 %??Low (12/27/22 07:51:00) Mode of Delivery (Oxygen): Room air (12/27/22 07:51:00) Early Warning Score: 4 (09/07/23 08:07:14) ? Physical Exam General: elderly male, lying in bed, in no acute distress;??AAOx3 Neck: Supple, no JVD HEENT: oral membranes moist Heart: regular rhythm, S1 and S2 heard, no MRGs Lungs: CTA bilaterally, no rales, rhonchi, wheezing or rubs. Patient not in respiratory distress Abdomen: soft, non-tender, non-distended, +BS in all quadrants. No organomegaly Extremities: tenderness over palpation of left hip and decreased ROM due to pain; legs are warm, noedema b/l. Neuro: speaks slowly but speaking in full sentences, CN 2-12 grossly intact Psych: appropriate mood, calm, cooperative Assessment/Plan John is a 67 year old male with PMH CVA on Aspirin/Plavix, vascular dementia, possible focal seizures on Keppra, HTN, CAD on Aspirin/Plavix, COPD, Non-insulin dependent DM, anemia and CLEOPATRA on CPAP who presented from [facility] due to a fall. Medicine consult requested for optimization priorto surgery. ?? Fall, likely mechanical left femoral neck fracture Pre-op evaluation History of CAD HTN Type II DM, Non-insulin dependent Reviewed his medical history, vitals, labs and imaging. At this time he is doing fine, at baseline in terms of mentation. No chest pain, SOB at this time As per??Allen Perioperative Risk for MT or Cardiac Arrest (MARCE): patient has 0.3 % risk of myocardial infarction or cardiac arrest, intraoperatively or up to 30 days post-op --Calculated as: age 67 years, functional status (partially dependent), mild systemic disease (HTN,DM seem well controlled), creatinine <1.5 and orthopedic surgery ?? PLAN No further cardiac workup indicated at this time Orthopedics team can proceed with surgery Can keep on telemetry but no further workup for fall at this time DVT prophylaxis as per ortho team Can resume home aspirin, Plavix after surgery if no significant bleeding risk as per ortho team Can resume home lisinopril after surgery if BPs are good and kidney function is normal. Insulin sliding scale and POC glucose checks ?? CVA vascular dementia possible focal seizures on Keppra Mentation at baseline, AAox3, though speaks slowly CT Head: shows stable right frontal encephalomalacia with associated ex vacuo dilatation of the right lateral ventricle. ?? PLAN Resume Aspirin, Plavix once stable from surgery Can continue statin Delirium precautions Continue pregabalin home dose Continue Sertraline Continue Keppra home dose 500mg BID ?? COPD PRN albuterol Not wheezing and doing well on room air ?? CLEOPATRA on CPAP Resume CPAP at night if tolerated ? Olaf Rodriguez [place] [facility] [place] [phone] ?? Total consult time:??81 minutes which included chart review of vitals, lab/radiology data, in person examination, coordination of care and note writing. Histories Allergies Allergies ?(Active and Proposed Allergies [...] Cancer; Heart attack ? Medications Home Medications Acetaminophen?650?Milligram?By Mouth?Every 6 hours?as needed?as needed for fever?for temp >100 and as needed for pain not to exceed 4 doses/day Albuterol/Ipratropium (albuterol-ipratropium 3 mg-0.5 mg/3 ml inhalation [...] times a day DX: Diabetes Mellitus E11.9 levETIRAcetam (Keppra 500 mg oral tablet)?500?Milligram?By Mouth?2 times a day Lisinopril (lisinopril 5 mg oral tablet)?5?Milligram?1?tablet?By Mouth?Daily?(Last [...] Héctor this patient gets ALL MEDS Delivered.) Pregabalin (pregabalin 50 mg oral capsule)?1?capsule?50?Milligram?By Mouth?2 times a day Sertraline (sertraline 25 mg oral tablet)?1?tab(s)?25?Milligram?By Mouth?Daily?(Last Filled & delivered 07/24/22 90 for 90 days) Sodium Biphosphate-Sodium Phosphate (Fleet Enema 19 gm-7 gm rectal enema)?118?Milliliter?Rectally?as needed?as needed for constipation Thiamine (Vitamin B1 100 mg oral tablet)?100?Milligram?1?tablet?By Mouth?Daily?(Last Filled & delivered 10/10/22 28 for 28 days) ? Inpatient Medications Medications (18) Active SCHEDULED: (12) Acetaminophen 325 mg Tablet (Tylenol 325 mg oral tablet) ??975 mg, By Mouth, Every 8 hours Atorvastatin 40 mg Tablet (atorvastatin 40 mg oral tablet) ??40 mg, By Mouth, Daily at bedtime CeFAZolin 2 Gm Inj (ceFAZolin Inj) ??2 Gm, IV Push, Once Docusate Sodium 100 mg Capsule (Colace sodium 100 mg oral capsule) ??100 mg 1 capsule, By Mouth, 2 times a day Enoxaparin 40 mg Inj (Enoxaparin Inj) ??40 mg 0.4 mL, Subcutaneous Injection, Daily Insulin Lispro 100 units/mL Inj (3mL) (Insulin LISPRO Sliding Scale) ??2-10 units, Subcutaneous Injection, 3 times a day before meals Keppra 500mg Tablet (Keppra 500 mg oral tablet) ??500 mg, By Mouth, 2 times a day Multivitamin Tablet ??1 tablet, By Mouth, Daily Pantoprazole 40 mg EC Tablet (pantoprazole 40 mg oral delayed release tablet) ??40 mg, By Mouth, Daily Pregabalin 25 mg Capsule (pregabalin 50 mg oral capsule) ??75 mg, By Mouth, Daily Senna Tablet (Senna 8.6 mg oral tablet) ??17.2 mg 2 tablet, By Mouth, Daily Sertraline 25 mg Tablet (sertraline 25 mg oral tablet) ??25 mg, By Mouth, Daily CONTINUOUS: (1) Lactated Ringers (1000 mL) Cont IV 1,000 mL (LR 1,000 mL) ??1,000 mL, IV Infusion, 80 mL/hr PRN: (5) Albuterol 90mcg/Inhalation Inhaler HFA (albuterol CFC free 90 mcg/inh inhalation aerosol) ??180 mcg2 puffs, Inhalation, Every 4 hours Bisacodyl 10 mg Suppository (Bisacodyl Supp) ??10 mg 1 supp, Rectally, Daily MorPHINE 2 mg Inj Syringe (MorPHINE Inj) ??2 mg, IV Push Slowly, Every 2 hours Ondansetron 2mg/mL Inj (2mL Vial) (Ondansetron Inj) ??4 mg, IV Push, Every 6 hours OxyCODONE 5 mg IR Tablet (oxyCODONE 5 mg oral tablet) ??5 mg, By Mouth, Every 6 hours ? Results Recent Labs BLOOD COUNT & DIFF WBC 7.9 k/mm3 ()?? 12/27/2022 03:50 RBC 4.22 m/mm3 (Low)?? 12/27/2022 03:50 Hgb 13.2 Gm/dL (Low)?? 12/27/2022 03:50 Hct 40.0 % (Low)?? 12/27/2022 03:50 MCV 94.8 femtoliters (High)?? 12/27/2022 03:50 MCH 31.3 pg ()?? 12/27/2022 03:50 MCHC 33.0 g/dL ()?? 12/27/2022 03:50 Platelet Count 190 k/mm3 ()?? 12/27/2022 03:50 RDW-SD 41.3 femtoliters ()?? 12/27/2022 03:50 MPV 8.8 femtoliters (Low)?? 12/27/2022 03:50 Nucleated RBC (Automated) 0.0 #/100 WBC'S ()?? 12/27/2022 03:50 Abs. NRBC 0.0 k/mm3 ()?? 12/27/2022 03:50 Abs. Neut 5.8 k/mm3 ()?? 12/27/2022 03:50 Abs. Lymph 1.5 k/mm3 ()?? 12/27/2022 03:50 Abs. Don[place]han 0.6 k/mm3 ()?? 12/27/2022 03:50 Abs. Eo 0.0 k/mm3 ()?? 12/27/2022 03:50 Abs. Baso 0.0 k/mm3 ()?? 12/27/2022 03:50 Neut % 72.7 % ()?? 12/27/2022 03:50 Lymph % 18.8 % ()?? 12/27/2022 03:50 Don[place]han % 7.1 % ()?? 12/27/2022 03:50 Eos % 0.5 % ()?? 12/27/2022 03:50 Baso % 0.4 % ()?? 12/27/2022 03:50 Imm Gran 0.5 % ()?? 12/27/2022 03:50 Abs. Imm Gran 0.0 k/mm3 ()?? 12/27/2022 03:50 ?? CARDIAC High Sensitivity Troponin (HSTnT) 16 ng/L ()?? 12/27/2022 03:50 ?? CHEM GENERAL Sodium 137 mmol/L ()?? 12/27/2022 03:50 Potassium 4.6 mmol/L ()?? 12/27/2022 03:50 Chloride 102 mmol/L ()?? 12/27/2022 03:50 Bicarbonate Level 24 mmol/L ()?? 12/27/2022 03:50 Anion Gap 11 ()?? 12/27/2022 03:50 Glucose Level 116 mg/dL (High)?? 12/27/2022 03:50 BUN 15 mg/dL ()?? 12/27/2022 03:50 Creatinine-Blood 0.6 mg/dL (Low)?? 12/27/2022 03:50 Estimated GFR Creatinine 107 ML/MIN/1.73 M2 ()?? 12/27/2022 03:50 Calcium 9.5 mg/dL ()?? 12/27/2022 03:50 ?? VIROLOGY COVID-19 by RT-PCR NEGATIVE ()?? 12/26/2022 23:48 ? * Event Display: Consultation Note Authored Date: CONSULTATION DATE: 12/27/2022 ORTHOPEDIC CONSULTATION REFERRING PHYSICIAN: Petey Ventura M.D. CONSULTING PHYSICIAN: Jennifer Oh M.D. HISTORY OF PRESENT ILLNESS: John is a 67-year-old male, who resides at [facility]. Two days ago, the patient reports he had a fall, was getting up on the shay, did not use any ambulatory support device and fell landing on his left side. Reports some pain about the hip. The patient was unable to weightbear. He had an x-ray obtained at outside facility, revealing femoral neck fracture, was then transferred to the Emergency Room at [facility] for care. Orthopedic consultation was requested. The patient denies history of difficulty with the hip prior to this incident. Denies numbness or tingling about the left lower extremity. PAST MEDICAL HISTORY: Significant for anxiety, cerebral aneurysm, COPD, depression, hypertension, low back pain, obstructive sleep apnea, type 2 diabetes, vascular dementia, anemia, coronary artery disease, gastroesophageal reflux disease, dyslipidemia. CURRENT MEDICATIONS: Include Keppra, albuterol, ipratropium inhaler, ascorbic acid, baby aspirin, atorvastatin, calcium carbonate, Plavix, Colace, senna, lisinopril, magnesium, melatonin, metformin, pantoprazole, Lyrica, sertraline, thiamine. ALLERGIES: The patient is allergic to PENICILLIN, GABAPENTIN AND SULFA MEDICATION. SOCIAL HISTORY: John 67-year-old male, who lives in a rehab facility. Smokes 4-5 cigarettes a day. Denies any current use of alcohol or drugs. Ambulates with assistance from a cane. REVIEW OF SYSTEMS: Negative for loss of consciousness, shortness of breath. PHYSICAL EXAMINATION: GENERAL: Mr. Sandhu is a 67-year-old gentleman in no acute distress. Alert and oriented x3. Mood and affect are appropriate, weighs 77.7 kg. VITAL SIGNS: Temperature is 98.2 degrees, pulse 62, respirations 20, blood pressure 117/68. EXTREMITIES: On examination of left hip, no ecchymosis, erythema or warmth are appreciated. No significant shortening or rotation of the lower leg is noted. No significant tenderness to palpation about the anterolateral aspect of the hip is appreciated. No tenderness about the knee is noted. Pain elicited with log rolling maneuvers or any attempts at flexion. Calf is soft, nontender. Left lower extremity: The patient has positive EHL, FHL function. Sensation is consistent with either contralateral side. Good capillary refill. Palpable DP pulse noted. RADIOLOGIC DATA: X-rays of the left hip reveal nondisplaced midcervical femoral neck fracture. No significant impaction noted. IMPRESSION AND PLAN: Ms. Sandhu is a 67-year-old gentleman suffering from a left femoral neck fracture described above. Treatment options are discussed. The patient was admitted to Dr. Jennifer Oh, will be maintained n.p.o. after midnight, nonweightbearing left lower extremity. I have requested medical consultation from Nelly Velasco. The patient will go to the operating room with Dr. Oh for ORIF of the left hip. Will be maintained nonweightbearing left lower extremity. Dictated by: Shahrzad Medrano Signing Clinician: Jennifer Oh M.D. Dictated: 12/27/2022 12:52:55 Transcribed: 09:43:10 PM Transcribed by: JAYNA DocID: [id number] PRELIMINARY REPORT UNLESS MANUALLY/ELECTRONICALLY SIGNED Note * Sruthi Wisdom RN: PERFORM Event Display: Discharge/Transfer Note Hospital Authored Date: Nursing Discharge Note Entered On: 12/31/2022 13:01 EDT Performed On: 12/31/2022 13:00 EDT by Sruthi Wisdom RN Nursing Discharge Note 2 Discharge Time : 12/31/2022 12:45 EDT Discharge Level of Care at Discharge : halfway facility Discharge Nursing Homes/Rehab Facilities : [facility] Patient Left Unit Via : Ambulance Patient Accompanied Off Unit with : Ambulance/Chair Van Personnel Handover Given to Transport Personnel : Yes DC Instructions Provided & Signed by Pt : No Patient Understands D/C Instructions : No Patient Instructions Discharge Signed : No Instructions for Discharge Comments : not required, all required paperwork completed by case specialist Discharge Comments : all D/C instructions and paperwork in envelope and given to [facility] staff to handover to facility staff Did Pt have Specialty Bed or Wound Vac : Yes Sruthi Wisdom RN - 12/31/2022 13:00 EDT * Nataly Suresh: PERFORM, MODIFY, MODIFY, MODIFY, MODIFY Event Display: Discharge/Transfer Note Hospital Authored Date: Patient: ??JOHN SANDHU ? Age:??67 Years?Sex:??Male?:??1955?? Admit Date Admission Date: 12/27/2022 Discharge Date 12/31/2022 Discharge Diagnoses Fall, 12/27/2022 Hospital Course ??John is a 67-year-old male, who resides at a Rehabilitation center. Two days prior to admission, the patient reported he had a fall, was getting up on the shay, did not use any ambulatory supportdevice and fell landing on his left side. ??Reported some pain about the hip. ??The patient was unable to weightbear. ??He had an x-ray obtained at outside facility, revealing femoral neck fracture, was then transferred to the Emergency Room at [facility] for care. ??Orthopedic consultation was requested. ??The patient denied history of difficulty with the hip prior to this incident.??Denied numbness or tingling about the left lower extremity.?? Surgical treatment was recommended a nd he was admitted to the hospital.?? He was seen by the medical team and cleared for surgery.?? They followed him post op and their most recent note is below. He underwent the above procedure on 12/27/2022, which he tolerated well.?? Post operatively he remained hemodynamically stable.?? His aquacel was changed post operatively and was noted to be clean and dry on day of discharge. He was seen and cleared by PT for discharge to rehab.?? He was seen by orthopedics on day of discharge noted noted to be afebrile, tolerating an oral diet and pain controlled with oral pain medication.?? Of note per RN he complained of blurry vision on day of discharge.?? He was seen by medicine and it was thought to be due to not having his glasses, which were at rehab.?? This should be monitored in rehab and his PCP should be contacted if he complains about it further.?? He was given a scriptfor pain medication as well as discharge and follow up instructions.?? His plavix was discontinued as recommended by medicine. ?? Medicine's Recommendations: (Note from 12/30/2022) Assessment/Plan Diagnoses John is a 67 year old male with PMH CVA on Aspirin/Plavix, vascular dementia, possible focal seizures on Keppra, HTN, CAD on Aspirin/Plavix, COPD, Non-insulin dependent DM, anemia and CLEOPATRA on CPAP who presented from [facility] due to a fall. Medicine consult requested for optimization priorto surgery and medical comanagement. ?? Mechanical fall with left femoral neck fracture s/p orif --management per ortho --pain control currently adequat.?? Continuing prn oxycodone and scheduled tylenol ?? history of cad.?? No current ischemic symptoms. Hypertension.?? BP slightly above target, likely secondary to pain he has been experiencing --continue asa, statin, and lisinopril. ?? history of left hemispheric tia 03/13.?? vascular dementia He was on aspirin and plavix x 90 days with plans to continue aspirin subsequently.. --plavix not to be continued on discharge. -continue asa and statin ?? DM 2 on metformin outside of hospital metformin held here.?? resume on discharge. --lantus and sliding scale to be continued. ?? chronic problems seizure disorder.?? no seizure activity here.?? continue keppra. copd.?? no evidence of exacerbation.?? cleopatra continue cpap. ?? dvt ppx lovenox. Objective/Physical Exam on Day of Discharge Vitals & Measurements T:??97.8?F?? HR:??66??(Peripheral)?? RR:??20?? BP:??118/55?? SpO2:??100%?? HT:??178??cm?? WT:??77.1??kg?? BMI:??24.33?? Future Appointments Saturday 10:00 AM EDT ?? With: Adilia SAVAGE, Christian Where: [facility] [address] [place] [address], [address] [place] [address]- Status: Pending Patient Discharge Condition Improved Discharge Disposition Rehab Procedures Performed This Visit Closed reduction and screw fixation left femoral neck fracture Inpatient Medications Medications (21) Active SCHEDULED: (15) Acetaminophen 325 mg Tablet (Tylenol 325 mg oral tablet) ??975 mg, By Mouth, Every 8 hours Aspirin 81 mg EC Tablet (aspirin 81 mg oral delayed release tablet) ??81 mg, By Mouth, Daily Atorvastatin 40 mg Tablet (atorvastatin 40 mg oral tablet) ??40 mg, By Mouth, Daily at bedtime CeFAZolin 2 Gm Inj (ceFAZolin Inj) ??2 Gm, IV Push, Once Docusate Sodium 100 mg Capsule (Colace sodium 100 mg oral capsule) ??100 mg 1 capsule, By Mouth, 2 times a day Enoxaparin 40 mg Inj (Enoxaparin Inj) ??40 mg 0.4 mL, Subcutaneous Injection, Daily Insulin Glargine 100 units/mL Inj (Lantus Inj) ??5 units 0.05 mL, Subcutaneous Injection, Daily at bedtime Insulin Lispro 100 units/mL Inj (3mL) (Insulin LISPRO Sliding Scale) ??2-10 units, Subcutaneous Injection, 3 times a day before meals Keppra 500mg Tablet (Keppra 500 mg oral tablet) ??500 mg, By Mouth, 2 times a day Lisinopril 5 mg Tablet (lisinopril 5 mg oral tablet) ??5 mg, By Mouth, Daily Pantoprazole 40 mg EC Tablet (pantoprazole 40 mg oral delayed release tablet) ??40 mg, By Mouth, Daily Polyethylene Glycol 17 Gm Powder (MiraLax Powder) ??17 Gm 1 pack/packet, By Mouth, Daily Pregabalin 25 mg Capsule (pregabalin 50 mg oral capsule) ??75 mg, By Mouth, Daily Senna Tablet (Senna 8.6 mg oral tablet) ??17.2 mg 2 tablet, By Mouth, Daily Sertraline 25 mg Tablet (sertraline 25 mg oral tablet) ??25 mg, By Mouth, Daily CONTINUOUS: (0) PRN: (6) Albuterol 90mcg/Inhalation Inhaler HFA (albuterol CFC free 90 mcg/inh inhalation aerosol) ??180 mcg2 puffs, Inhalation, Every 4 hours Bisacodyl 10 mg Suppository (Bisacodyl Supp) ??10 mg 1 supp, Rectally, Daily Magnesium Hydroxide 8% Susp UD (Milk of Magnesia Liquid) ??30 mL, By Mouth, Daily nalOXONE ??400mcg/mL Inj (nalOXONE Inj) ??0.04 mg 0.1 mL, IV Push, Every 5 minutes Ondansetron 2mg/mL Inj (2mL Vial) (Ondansetron Inj) ??4 mg, IV Push, Every 6 hours OxyCODONE 5 mg IR Tablet (oxyCODONE 5 mg oral tablet) ??5 mg, By Mouth, Every 6 hours Discharge Medications Acetaminophen?650?Milligram?By Mouth?Every 6 hours?as needed?as needed for fever?for temp >100 and as needed for pain not to exceed 4 doses/day Albuterol/Ipratropium (albuterol-ipratropium 3 mg-0.5 mg/3 ml inhalation [...] times a day?as needed?as needed for dyspepsia Docusate-Senna (Docusate/Senna Tablet)?1?tab(s)?By Mouth?2 times a day [...] times a day DX: Diabetes Mellitus E11.9 levETIRAcetam (Keppra 500 mg oral tablet)?500?Milligram?By Mouth?2 times a day Lisinopril (lisinopril 5 mg oral tablet)?5?Milligram?1?tablet?By Mouth?Daily?(Last Filled & delivered 07/24/22 90 for 90 days) Magnesium Oxide (magnesium oxide 400 mg oral tablet)?1?tab(s)?400?Milligram?By Mouth?Daily?(Last Filled & delivered 10/09/22 28 for 28 days) Melatonin (melatonin 3 mg oral tablet)?1?tab(s)?3?Milligram?By Mouth?Daily at bedtime?as needed?Insomnia Metformin (metFORMIN 1000 mg oral tablet)?1?tab(s)?1,000?Milligram?By Mouth?2 times a day?(Last Filled & delivered 07/24/22 180 for 90 days) Oxycodone (oxyCODONE 5 mg oral tablet)?See Instructions?as needed?5 mg By Mouth Every 6 hours prn pain?Pain , Moderate Pantoprazole (pantoprazole 40 mg oral delayed release tablet)?1?tab(s)?40?Milligram?By Mouth?Daily?(Last Filled & delivered 07/24/22 90 for 90 days) Pregabalin (pregabalin 75 mg oral capsule)?1?capsule?75?Milligram?By Mouth?Daily?(Has Never Started Per Héctor this patient gets ALL MEDS Delivered.) Sertraline (sertraline 25 mg oral tablet)?1?tab(s)?25?Milligram?By Mouth?Daily?(Last Filled & delivered 07/24/22 90 for 90 days) Sodium Biphosphate-Sodium Phosphate (Fleet Enema 19 gm-7 gm rectal enema)?118?Milliliter?Rectally?as needed?as needed for constipation Thiamine (Vitamin B1 100 mg oral tablet)?100?Milligram?1?tablet?By Mouth?Daily?(Last Filled & delivered 10/10/22 28 for 28 days) Labs Last 24 Hours No qualifying data available. Follow-Up Appointments Added Follow Up ?Time Frame ?Comments Adriano SAVAGE, Jennifer Rao?4 to 5 weeks?Please call for f/u appointment Patient Instructions Please contact Dr. Oh office with any questions or concerns regarding your surgery ([phone]) ?? Please take an over the counter laxative or stool softener, such as colace or milk of magnesia as needed for constipation. ?? Elevate operative extremity to reduce swelling. Keep splint/bandage clean and dry. ?? If any fever, chills, uncontrolled pain, chest pain, shortness of breath or any other issues you feel may be urgent; consult your physician and/or return to the Emergency Room..? Please continue Lovenox injections daily as DVT prophylaxis for 28 days or until instructed otherwise.? Restrictions: - WBAT on operative extremity - Do not drive until no longer taking narcotics and cleared by your surgeon - No heavy lifting - No tub baths ?? Encourage IS/Deep breathing ?? Resume your regular diet at home ?? Please remove john 2 weeks post op, contact [facility] with wound redness, drainage, increased pain, falls, change in alignment for a sooner follow up visit ?? * Thelma Rainey RN: PERFORM, SIGN, VERIFY Event Display: Case Management Discharge Plan Authored Date: [id number] Patient: JOHN SANDHU Age: 67 years Sex: Male : 1955 Associated Diagnoses: None Author: Thelma Rainey RN Discharge Plan Case Management Discharge Plan : Case Management Discharge Plan Data 12/31/2022 8:57 EDT Discharge Level of Care at Discharge halfway facility Discharge Nursing Homes/Rehab Facilities [facility] Discharge Transportation Arranged [facility] [address] [place] [phone] Discharge Arranged Transport Date/Time 12/31/2022 12:30 Mode of Transportation Arranged Ambulance Name of Agency #1 [facility] Service Categories #1 Occupational Therapy, Physical Therapy, Retirement Service Comments #1 An ambulance has been arranged through [facility] to transport patient to [facility] today @ 1230pm Name of Person Notified of Transfer Brant 12/28/2022 16:27 EDT Discharge Nursing Homes/Rehab Facilities [facility] * Sruthi Wisdom RN: PERFORM Event Display: Patient Education/Instruction Authored Date: [id number] Inpatient Adult Discharge Instructions [address] [address] Name: JOHN SANDHU : 1955 Visit: 12/27/2022 00:45:00 Current Date: 12/31/2022 11:20 Account: [id number] Inpatient Adult Discharge Instructions We would like [...] and their families. Surveys are administered by [employer] ?? If further treatment with your primary care physician or another doctor is recommended, it is important for you to keep the appointment. Call your primary care physician or return to the Emergency Department immediately if your condition worsens, fails to improve, or new symptoms develop. If you need to find a doctor, you can call [facility] [employer] Link for a referral at [phone] or toll free at [phone] or log in to [email or web address] ?? [facility], in keeping with [facility] guidance, no longer requires face masks for [...] a health care derrick of your choosing. [employer] is a website that allows you to securely view your medical information including your hospital discharge summary, office visit summaries, medications and follow-up visits. You can also request appointments, renew medications, and request access to your medical information using a health care derrick of your choosing, or just ask a question. You can enroll at [email or web address] or register during your next office visit. You have been discharged from [facility], Patient Care Unit: S3. If you have any questions regarding these instructions after you leave, please call us and we will be happy to assist you. [facility] Your Care Team Attending Physician Adriano SAVAGE, Jennifer Rao Consulting Providers Carlos SAVAGE, Karl Cisneros; Figueroa SAVAGE, Oj; Augusta Gordon; Aleida SALAS, Nelly Willard; Adriano SAVAGE, Jennifer Rao Discharging Providers Nataly Suresh Reason for Admission Coming from [facility], [facility] Fell two days ago. Didnt send him out two days ago, sent him for Xray todau which revealed hip fx. Your Diagnosis L hip fx Tests Performed Below is a partial list of the tests performed during your hospitalization. You may have had other tests and procedures not included in this list. Please discuss all test results with your provider. Basic Metabolic Panel CBC CBC w/ Differential COVID-19 (Novel Coronavirus), Rapid PCR GLUCOSE POC High??Sensitivity??Troponin T Magnesium Level Phosphorus Level CT Cervical Spine W/O Contrast CT Head/Brain W/O Contrast Femur 2 Views Left XR C-Arm < 1 Hour XR Hip Comp 2 Views Left Primary Care Provider Sonya Dee NP Advance Directive Health Care Proxy on File Yes - Health Care Proxy Yes - MOLST Discharge Vitals Temperature: 97.8 DegF Height: 178 cm Pulse Rate: 66 bpm Weight: 77.1 kg Respiratory Rate: 20 br/min Body Mass Index: 24.33 kg/m2 Systolic Blood Pressure: 118 mm Hg Body surface area: 1.95 Diastolic Blood Pressure: 55 mm Hg ?? Oxygen Saturation: 100 % ?? Studies Pending All tests and labs ordered during this hospital stay have been completed unless listed below. Please discuss all pending results with your provider listed above in these instructions. ?? Urinalysis w/hold for Urine Culture What to do next Instructions From Your Doctor Please contact Dr. Oh office with any questions or concerns regarding your surgery ([phone]) ?? Please take an over the counter laxative or stool softener, such as colace or milk of magnesia as needed for constipation. ?? Elevate operative extremity to reduce swelling. Keep splint/bandage clean and dry. ?? If any fever, chills, uncontrolled pain, chest pain, shortness of breath or any other issues you feel may be urgent; consult your physician and/or return to the Emergency Room..? Please continue Lovenox injections daily as DVT prophylaxis for 28 days or until instructed otherwise.? Restrictions: - WBAT on operative extremity - Do not drive until no longer taking narcotics and cleared by your surgeon - No heavy lifting - No tub baths ?? Encourage IS/Deep breathing ?? Resume your regular diet at home ?? Please remove john 2 weeks post op, contact [facility] with wound redness, drainage, increased pain, falls, change in alignment for a sooner follow up visit ?? Discharge Orders Scheduled Follow-Up Appointments Saturday 10:00 AM EDT ?? With: Adilia SAVAGE, Crhistian Where: [facility] [address] [facility] 3rd Floor, [address] [place] [phone] Status: Pending You Need to Schedule the Following Appointments Follow Up with??Jennifer Oh MD When:??Within 4 to 5 weeks Why: Please call for f/u appointment Where: [address] [facility] [place] [address]- Business (1) Discharge Medications JOHN SANDHU :1955 Visit Date:12/27/2022 Medications: Please continue your medications until treatment is completed or stopped by your provider. Medications not listed below should be discontinued. Discuss any questions related to medications with your provider. What How Much When Why Instructions Next Dose New Oxycodone (oxyCODONE 5 mg oral tablet) See instructions 5 mg By Mouth Every 6 hours prn pain, As needed for Pain , Moderate ?? Printed Prescription take as directed Changed Pregabalin (pregabalin 75 mg oral capsule) 1 capsule Oral Daily (Has Never Started Per Héctor this patient gets ALL MEDS Delivered.) ?? next dose due 01/01 at 9am Unchanged Acetaminophen 650 Milligram Oral Every 6 hours as needed for as needed for fever for temp >100 and as needed for pain not to exceed 4 doses/ day ?? take as directed, last dose 12/31 at 12:30pm Unchanged Albuterol/ Ipratropium (albuterol-ipratropium 3 mg-0.5 mg/ 3 ml inhalation solution) 3 Milliliter BAND Nebulizer Every 4 hours as needed for Wheezing/Shortness of Breath take as directed Unchanged Ascorbic Acid (Vitamin C 500 mg oral tablet) 1 tab(s) Oral Daily (Last Filled & delivered 90 for 90 days) ?? next dose due 01/01 at 9am Unchanged Aspirin (Aspirin Low Dose 81 mg oral tablet, chewable) 1 tab(s) Oral Daily (Last Filled & delivered 90 for 90 days) ?? next dose due 01/01 at 9am Unchanged Atorvastatin (atorvastatin 40 mg oral tablet) 1 tab(s) Oral Daily (Last Filled & delivered 28 for 28 days) ?? next dose due 12/31 at 9pm Unchanged Calcium Carbonate (calcium carbonate 500 mg (200 mg elemental calcium) oral tablet, chewable) 1 tab(s) Chew 3 times a day as needed for as needed for dyspepsia take as directed Unchanged Docusate-Senna (Docusate/ Senna Tablet) 1 tab(s) Oral Twice a day next dose due 12/31 at 9pm Unchanged Durable Medical Equipment (depends xl) See instructions DX: incontinence N39.46 ?? Unchanged Durable Medical Equipment (Freestyle Lite Lancets) See instructions Diabetes mellitus Duration: 30 Days Use to check blood sugar three times a day DX: Diabetes Mellitus E11.9 ?? Unchanged Durable Medical Equipment (Freestyle Lite Monitor) See instructions Diabetes mellitus Use to check blood sugar three times a day DX: Diabetes Mellitus E11.9 ?? Unchanged Durable Medical Equipment (Freestyle Lite Test Strips) See instructions Diabetes mellitus Use to check blood sugar three times a day DX: Diabetes Mellitus E11.9 ?? Unchanged Durable Medical Equipment (large pull ups) See instructions DX: incontinence N39.46 ?? Unchanged levETIRAcetam (Keppra 500 mg oral tablet) 500 Milligram Oral Twice a day next dose due 12/31 at 9pm Unchanged Lisinopril (lisinopril 5 mg oral tablet) 1 tab(s) Oral Daily (Last Filled & delivered 90 for 90 days) ?? next dose due 01/01 at 9m Unchanged Magnesium Oxide (magnesium oxide 400 mg oral tablet) 1 tab(s) Oral Daily (Last Filled & delivered 28 for 28 days) ?? next dose due 01/01 at 9am Unchanged Melatonin (melatonin 3 mg oral tablet) 1 tab(s) Oral Daily at Bedtime as needed for Insomnia take as directed Unchanged Metformin (metFORMIN 1000 mg oral tablet) 1 tab(s) Oral Twice a day (Last Filled & delivered 180 for 90 days) ?? next dose due 12/31 at 9pm Unchanged Pantoprazole (pantoprazole 40 mg oral delayed release tablet) 1 tab(s) Oral Daily (Last Filled & delivered 90 for 90 days) ?? next dose due 01/01 at 9am Unchanged Sertraline (sertraline 25 mg oral tablet) 1 tab(s) Oral Daily (Last Filled & delivered 90 for 90 days) ?? next dose due 01/01 at 9am Unchanged Sodium Biphosphate-Sodium Phosphate (Fleet Enema 19 gm-7 gm rectal enema) 118 Milliliter Per rectum As needed for as needed for constipation take as directed Unchanged Thiamine (Vitamin B1 100 mg oral tablet) 1 tab(s) Oral Daily (Last Filled & delivered 28 for 28 days) ?? next dose due 01/01 at 9am ?? What How Much When Comments Stop Taking Clopidogrel (clopidogrel 75 mg oral tablet) 1 tab(s) Oral Daily (Last Filled & Delivered 90 ??for 90 days) ?? Test Results Below is a partial list of the most recent Laboratory test results done prior to this discharge. You may have had other tests and procedures not included in this list. Please discuss all test resultswith your provider. Est Creatinine Clearance - 107.45 mL/min (12/28/2022) Basic Metabolic Panel (12/28/2022) ???Sodium - 138 mmol/L???Potassium - 4.6 mmol/L???Chloride - 99 mmol/L???Bicarbonate Level - 27 mmol/L???Anion Gap - 12???Glucose Level - 233 mg/dL???BUN - 15 mg/dL???Creatinine-Blood - 0.7 mg/dL???Estimated GFR Creatinine - 103 ML/MIN/1.73 M2???Calcium - 9.1 mg/dL CBC (12/28/2022) ???WBC - 7.6 k/mm3???RBC - 3.95 m/mm3???Hgb - 12.6 Gm/dL???Hct - 38.4 %???MCV - 97.2 femtoliters???MCH - 31.9 pg???MCHC - 32.8 g/dL???Platelet Count - 194 k/mm3???RDW-SD - 42.9 femtoliters???MPV - 9.1 femtoliters???Nucleated RBC (Automated) - 0.0 #/100 WBC'S???Abs. NRBC - 0.0 k/mm3 CBC w/ Differential (12/27/2022) ???WBC - 7.9 k/mm3???RBC - 4.22 m/mm3???Hgb - 13.2 Gm/dL???Hct - 40.0 %???MCV - 94.8 femtoliters???MCH - 31.3 pg???MCHC - 33.0 g/dL???Platelet Count - 190 k/mm3???RDW-SD - 41.3 femtoliters???MPV - 8.8 femtoliters???Nucleated RBC (Automated) - 0.0 #/100 WBC'S???Abs. NRBC - 0.0 k/mm3???Abs. Neut - 5.8 k/mm3???Abs. Lymph - 1.5 k/mm3???Abs. [place] - 0.6 k/mm3???Abs. Eo - 0.0 k/mm3???Abs. Baso - 0.0 k/mm3???Neut % - 72.7 %???Lymph % - 18.8 %???[place] % - 7.1 %???Eos % - 0.5 %???Baso % - 0.4 %???Imm Gran- 0.5 %???Abs. Imm Gran - 0.0 k/mm3 COVID-19 (Novel Coronavirus), Rapid PCR (12/26/2022) ???COVID-19 by RT-PCR - NEGATIVE GLUCOSE POC (12/31/2022) ???Glucose, POC - 171 mg/dL High??Sensitivity??Troponin T (12/27/2022) ???High Sensitivity Troponin (HSTnT) - 16 ng/L Magnesium Level (12/28/2022) ???Magnesium - 1.6 mg/dL Phosphorus Level (12/28/2022) ???Phosphorus - 3.9 mg/dL Allergies (NKA means No Known Allergies) gabapentin??(Swelling) [...] Educational Leaflet Providered with your Discharge Instructions. Valuables and Belongings I fully understand and agree that [facility] accepts no responsibility for all my personal [...] of Valuable and Belonging List: With patient Possessions released to: No ??Medical ??Advicves Date for Pt to Sign Valuables/Belongings: 12/31/22 09:56:00 ?? Other Discharge Information ? Case Management Discharge Plan?? Discharge Plan?? Discharge Agency Information?? Discharge Level of Care at Discharge: halfway facility Name of Agency #1: [facility] Discharge Transportation Arranged: [facility] [address] [facility] [phone] Service Categories #1: Occupational Therapy, Physical Therapy, Retirement Mode of Transportation Arranged: Ambulance Service Comments #1: An ambulance has been arranged through [facility] to transport patient to [facility] [place] today @ 1230pm Discharge Arranged Transport Date/Time: 12/31/22 12:30:00 Name of Person Notified of Transfer: Patient and [place] Discharge Nursing Homes/Rehab Facilities: [facility] ? Pulmonary Rehab Status?? Pulmonary Rehab Discharge [...] are strongly encouraged to quit. Please call [facility] [employer] Link at [phone] or [phone]) or log in to [email or web address] for referrals to smoking cessation programs. ?? 718 Suicide & Crisis Lifeline is available 12/11 if you or someone you know needs to find a reason to keep living. By calling 881 you'll be connected to a skilled, trained counselor at a crisis center in your area. INPATIENT DISCHARGE INSTRUCTIONS SIGNATURE PAGE JOHN SANDHU Location:[facility] Registration Date and Time:12/27/2022 00:45 EDT Primary Care Physician: Sonya Dee NP, Attending Physician: Jennifer Oh MD, I [address] JOHN, have received the above patient education materials/instructions and have verbalized understanding. If ambulance or transport services are being used I further acknowledge being given a choice of service. ?? If you need to contact me, please call me at this number: . Patient/Fur Dry Cleaner Name: Patient/Fur Dry Cleaner Signature: Relationship to Patient: Witness Name/Signature: Date: * Sruthi Wisdom RN: PERFORM Event Display: Patient Education Leaflets Authored Date: [id number] Discharge Instructions: Internal Fixation of a Fractured Femur ?? [address] Discharge Instructions: Internal Fixation of a Fractured Femur You had a procedure called internal fixation of a fractured femur (thighbone).??A dyana, plates and screws, or several pins were inserted inside the bone. These will hold the broken ends of bone in place while they heal. Once the bone has healed, the dyana, plate and screws,??or pins may need to be removed with surgery. A broken femur is a serious injury that takes about?? 3 to 6 months to heal. Hereare instructions to help you care for your leg when you are at home. Activity ??? Arrange your household to keep the items you need within reach. ??? Remove electrical cords, throw rugs, and anything else that may cause you to fall. ??? Use nonslip bath mats, grab bars, a raised toilet seat, and a shower chair in your bathroom. ??? Follow the weight-bearing instructions given by your healthcare provider. They will tell you how much weight you can or can't put on your leg. ??? Use a cane, crutches, a walker, or handrails. Use these until??your balance, flexibility, and strength improve. Ask for help from others when you need it. ??? Don't carry things in your hands. You will need to use your hands to keep your balance. Use a alexandra pack, apron, or pockets to carry things. ??? Don???t sit or lie in the same position for long periods. Don't cross your legs when you sit or lie down. Carefully reposition yourself every?? 30 to 60 minutes. ??? Don???t drive until your healthcare provider says it???s OK. And never drive??while taking opioid pain medicine. ?? Home care ??? Take your pain medicine exactly as directed. ??? Take extra care when showering. Follow your healthcare provider???s instructions closely. Do the following: o If you wear a leg brace orimmobilizer, cover it with plastic to keep it dry while you shower. o If you don't wear a leg braceor immobilizer, carefully wash your incision with soap and water. Gently pat it dry. Don???t rub the incision or apply creams or lotions to it. To prevent falling while showering, sit on a shower chair.? Tell all your healthcare providers???including your dentist???that you have a dyana, plate and screws, or pin in your leg. You may need to take antibiotics before dental work and other medicalprocedures. This is to reduce the risk of infection. ?? Follow-up care Follow up with your healthcare provider as advised.? Call 911 Call 911 right away??if you have any of the following: ??? Chest pain ??? Shortness of breath ?? When to call your healthcare provider Call your healthcare provider right away if you have any of these: ??? Numbness or tingling in yourleg or toes ??? Cool, pale, red- or blue-colored leg or toes ??? Fever of?? 100.4?? F??( 38??C) or higher, or as directed by your healthcare provider ??? Shaking chills ??? Pain that gets worse ??? Swelling of the fracture site or calf ??? Fluid with foul odor coming from the??dressing ??? A rash ?? Last Reviewed Date: 2021 ?? [employer]. All rights reserved. This information is not intended as a substitute for professional medical care. Always follow your healthcare professional's instructions. ?? * Artis GARAY, Sruthi Cisneros: PERFORM Event Display: Patient Education Leaflets Authored Date: [id number] Discharge Instructions: Internal Fixation of a Fractured Femur ?? [address] Discharge Instructions: Internal Fixation of a Fractured Femur You had a procedure called internal fixation of a fractured femur (thighbone).??A dyana, plates and screws, or several pins were inserted inside the bone. These will hold the broken ends of bone in place while they heal. Once the bone has healed, the dyana, plate and screws,??or pins may need to be removed with surgery. A broken femur is a serious injury that takes about?? 3 to 6 months to heal. Hereare instructions to help you care for your leg when you are at home. Activity ??? Arrange your household to keep the items you need within reach. ??? Remove electrical cords, throw rugs, and anything else that may cause you to fall. ??? Use nonslip bath mats, grab bars, a raised toilet seat, and a shower chair in your bathroom. ??? Follow the weight-bearing instructions given by your healthcare provider. They will tell you how much weight you can or can't put on your leg. ??? Use a cane, crutches, a walker, or handrails. Use these until??your balance, flexibility, and strength improve. Ask for help from others when you need it. ??? Don't carry things in your hands. You will need to use your hands to keep your balance. Use a alexandra pack, apron, or pockets to carry things. ??? Don???t sit or lie in the same position for long periods. Don't cross your legs when you sit or lie down. Carefully reposition yourself every?? 30 to 60 minutes. ??? Don???t drive until your healthcare provider says it???s OK. And never drive??while taking opioid pain medicine. ?? Home care ??? Take your pain medicine exactly as directed. ??? Take extra care when showering. Follow your healthcare provider???s instructions closely. Do the following: o If you wear a leg brace orimmobilizer, cover it with plastic to keep it dry while you shower. o If you don't wear a leg braceor immobilizer, carefully wash your incision with soap and water. Gently pat it dry. Don???t rub the incision or apply creams or lotions to it. To prevent falling while showering, sit on a shower chair.? Tell all your healthcare providers???including your dentist???that you have a dyana, plate and screws, or pin in your leg. You may need to take antibiotics before dental work and other medicalprocedures. This is to reduce the risk of infection. ?? Follow-up care Follow up with your healthcare provider as advised.? Call 911 Call 911 right away??if you have any of the following: ??? Chest pain ??? Shortness of breath ?? When to call your healthcare provider Call your healthcare provider right away if you have any of these: ??? Numbness or tingling in yourleg or toes ??? Cool, pale, red- or blue-colored leg or toes ??? Fever of?? 100.4?? F??( 38??C) or higher, or as directed by your healthcare provider ??? Shaking chills ??? Pain that gets worse ??? Swelling of the fracture site or calf ??? Fluid with foul odor coming from the??dressing ??? A rash ?? Last Reviewed Date: 2021 ?? 6089-6031 [employer]. All rights reserved. This information is not intended as a substitute for professional medical care. Always follow your healthcare professional's instructions. ?? Patient Care team information Care Team Personnel Name: Adelia Landry RN Position: [facility] RN Member Role: Primary Care Nurse Name: Alicia Negron Position: [facility] RN Member Role: Primary Care Nurse Name: Jason Pereira RN Position: [facility] RN Member Role: Primary Care Nurse Name: Hanna Dailey Position: [facility] RN Member Role: Primary Care Nurse Name: Nereida Dobbins RN Position: [facility] RN Member Role: Primary Care Nurse Name: Gela Orosco RN Position: [facility] RN Member Role: Primary Care Nurse Name: Jessica Castrejon RN Position: [facility] RN Member Role: Primary Care Nurse Name: Hien Hidalgo RN Position: [facility] RN Member Role: Primary Care Nurse Name: Phuong Balderas RN Position: [facility] SN RN Member Role: Primary Care Nurse Name: Evelyn Mcnulty RN Position: [facility] RN Member Role: Primary Care Nurse Name: Yanely Shanks RN Position: [facility] RN Member Role: Primary Care Nurse Name: Sonya Dee NP Position: [facility] [facility] Associate Professional Member Role: PCP Address: Address: [address] [place] [address], 3rd Floor [facility] [place], [place] [address] Name: Siddhartha Andino RN Position: [facility] RN Member Role: Primary Care Nurse Name: Pola Reid RN Position: [facility] RN Supv Member Role: Primary Care Nurse Name: Betzy Beckford RN Position: [facility] RN Member Role: Primary Care Nurse Name: Susie Galicia RN Position: [facility] RN Member Role: Primary Care Nurse Name: Ezra Acuna RN Position: [facility] RN Member Role: Primary Care Nurse Name: Gabriella Gonsales RN Position: [facility] RN Member Role: Primary Care Nurse Name: Zully Jara Position: [facility] RN Member Role: Primary Care Nurse Name: Yunior Bui RN Position: [facility] RN Member Role: Primary Care Nurse Name: Candace Liang RN Position: [facility] RN Member Role: Primary Care Nurse Name: Marci Padilla RN Position: [facility] RN Member Role: Primary Care Nurse Name: Florecita Ring RN Position: [facility] RN Member Role: Primary Care Nurse Name: Dedra Lezama Position: [facility] RN Member Role: Primary Care Nurse Name: Pat Fernando RN Position: [facility] RN Member Role: Primary Care Nurse Name: Marquita Siddiqui RN Position: [facility] RN Member Role: Primary Care Nurse Name: Lazara Krueger RN Position: [facility] RN Member Role: Primary Care Nurse Name: Randa Sagastume RN Position: [facility] RN Member Role: Primary Care Nurse Name: Mitra Patel Position: [facility] RN Member Role: Primary Care Nurse Name: Kacie Campbell RN Position: [facility] RN Member Role: Primary Care Nurse Name: Charito Vazquez RN Position: [facility] ED RN W/OE and Tasks Member Role: Primary Care Nurse Name: Dylan Bond RN Position: [facility] RN Member Role: Primary Care Nurse Name: Lydia Doherty RN Position: [facility] RN Member Role: Primary Care Nurse Name: Elie Davis RN Position: [facility] RN Member Role: Primary Care Nurse Name: Delfina Still RN Position: [facility] RN Member Role: Primary Care Nurse Name: Mary Wagner RN Position: [facility] RN Member Role: Primary Care Nurse Name: Chandni Gibbons RN Position: [facility] SN RN Member Role: Primary Care Nurse Name: Reanna Chow RN Position: [facility] RN Member Role: Primary Care Nurse Name: Brayden Elizabeth RN Position: [facility] RN Member Role: Primary Care Nurse Name: Viry Zacarias RN Position: [facility] RN Member Role: Primary Care Nurse Name: Kerri Cunha RN Position: [facility] Demi Chef Member Role: Primary Care Nurse Name: Atiya Mcintyre RN Position: [facility] RN Member Role: Primary Care Nurse Name: Galdino NOVOA Attending Position: [facility] ED Medicine MD Name: Sarah Anton Position: [facility] Associate Professional Member Role: ED Physician Patient Observation Assistant Address: Address: [address] [place] [address] Emergency Medicine [place], [place] [address] Name: Paula Romeo Position: [facility] ED TA [facility] Name: Emily Bush Position: [facility] ED OA Charge Member Role: ED Associate Name: Baldomero Hill RN Position: [facility] ED RN W/OE and Tasks Member Role: Patient Care Provider Care Team Related Persons Name: KEENAN CORRAL Address: [address] [address]
--- OUTSIDE RECORDS SUMMARY | 2023-04-11 15:23 | XMS_ITS | Continuity of Care Document ---
Author Name Unknown Organization [facility] Adult Address [address] [place] [address]- Care Team Providers Care Relish Maker Name Role Phone Luiz SALAS, Sonya Primary Care Physician Encounter [facility] [place] Date(s): 03/31/21 - 04/30/21 [facility] [address] [place] [address]- Allergies, Adverse Reactions, Alerts Substance Reaction Severity [...] 5 Refills, Maintenance, 01/16/21 10:30:00 EDT, Tablet, [facility]/pharmacy #[id number], Partial fill upon patient request if [...] capsule, 11 Refills, Maintenance,01/16/21 10:26:00 EDT, Capsule, [facility]/pharmacy #[id number], Partial fill upon patient request if the prescription is for a schedule II opioid drug., 178, cm, 0... Start Date: 01/16/21 Stop Date: 01/11/22 Status: Ordered clonazePAM 0.5 mg oral tablet 1 tablet = 0.5 mg, By Mouth, 3 times a day, # 90 tablet, 1 Refills, Maintenance, 01/16/21 10:52:00 EDT, Tablet, [facility]/pharmacy #[id number], Partial fill upon patient request if the prescription is for a schedule II opioid drug., 178, cm, 12/29/20 5:31:00 EDT,... Start Date: 01/16/21 Stop Date: 03/17/21 Status: Ordered glimepiride 4 mg oral tablet 1 tablet, By Mouth, 2 times a day, # 60 tablet, 2 Refills, Maintenance, 01/16/21 10:26:00 EDT, [facility]/pharmacy #[id number], 178, cm, 12/29/20 5:31:00 EDT, Height, 100, kg, 12/26/20 16:53:00 EDT, Dry Weight Start Date: 01/16/21 Status: Ordered lactulose 10 gm/15 ml oral syrup 15 mL, By Mouth, Daily, PRN NEEDED FOR CONSTIPATION, # 473 mL, 0 Refills, [id number], 30, TAKE 15 ML BY MOUTH DAILY NEEDED FOR CONSTIPATION, 178, cm, 03/13/21 13:09:00 EST, Height, 100, kg, 12/26/20 16:53:00 EDT, Dry Weight Start Date: 04/20/21 Status: Ordered lisinopril 10 mg oral tablet 10 mg, 1, tablet, By Mouth, Daily, # 30 tablet, Refills 5, Tot. Refills 5, Maintenance, 01/16/21 10:29:00 EDT, Route to Pharmacy Electronically, [facility]/pharmacy #[id number], Partial fill upon patient request if [...] 0 Refills, Maintenance, 03/15/20 12:57:00 EST, Tablet, [facility], Partial fill upon patient request, 178, cm, 03/15/20 11:15:00 EST, Height, 105, kg, 03/12/20 6:12:00 EST, Dry W... Start Date: 03/15/20 Status: Ordered multivitamin with minerals Multiple Vitamins with Minerals oral tablet 1 tablet, By Mouth, Daily, # 30 tablet, 0 Refills, Maintenance, 04/27/21 13:07:00 EST, Tablet, [facility]/pharmacy #[id number], Partial fill upon patient request if the prescription is for a schedule II opioid drug., 1 tablet By Mouth Daily, 178, cm, 04/27/21 4:54... Start Date: 04/27/21 Status: Ordered oxyCODONE 5 mg oral tablet 5 mg, 1, tablet, By Mouth, 5 times a day, SHEETMETAL PATTERNMAKER checked., # 140 tablet, Refills 0, Tot. Refills 0, Maintenance, 03/31/21 13:33:00 EST, Route to Pharmacy Electronically, [facility]/pharmacy #[id number], Partial fillupon patient request if the [...] 12/28/20 12:50:00 EDT, Route to Pharmacy Electronically, [facility], Partial fill upon patient request [...] 04/27/21 13:07:00 EST, [id number] Partial fill upon patient requestif the prescription [...] 11/07/20 Active 1angioplasty 2000; 3 stents at [facility] 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 [...]
--- OUTSIDE RECORDS SUMMARY | 2023-04-11 15:23 | XMS_ITS | Continuity of Care Document ---
Author Name Unknown Organization [facility] Adult Address [address] [place] [address]- Care Team Providers Care Heavy Equipment Rental Manager Name Role Phone Sonya Dee NP Primary Care Physician [place] [facility] [place]/21 [facility] [address] [place] [address]- Allergies, Adverse Reactions, Alerts Substance Reaction Severity [...] 07/15/21 10:30:00 EDT, 01/16/21 10:30:00 EDT, Tablet, [facility]/pharmacy #[id number], Partial fill upon patient request if the prescription is for a schedule II opioid drug., 178, cm... Start Date: 01/16/21 Stop Date: 07/15/21 Status: Ordered atorvastatin 40 mg oral tablet 1 tablet = 40 mg, By Mouth, Daily at bedtime, # 30 tablet, 5 Refills, Maintenance, 05/02/21 10:38:00 EST, Tablet, [facility]/pharmacy #[id number], Partial fill upon patient request if the prescription is for a schedule II opioid drug., 178, cm, 04/27/21 4:54:00 ES... Start Date: 05/02/21 Stop Date: 10/29/21 Status: Ordered cholecalciferol 50,000 intl units oral capsule 1 capsule = 50,000 International_Units, By Mouth, Every week, # 5 capsule, 11 Refills, Maintenance,05/02/21 10:36:00 EST, Capsule, [facility]/pharmacy #[id number], Partial fill upon patient request if the prescription is for a schedule II opioid drug., 178, cm, 0... Start Date: 05/02/21 Stop Date: 04/27/22 Status: Ordered clonazePAM 0.5 mg oral tablet 1 tablet = 0.5 mg, By Mouth, 3 times a day, # 90 tablet, 1 Refills, Maintenance, 05/02/21 12:49:00 EST, Tablet, [facility]/pharmacy #[id number], Partial fill upon patient request if the prescription is for a schedule II opioid drug., 178, cm, 04/27/21 4:54:00 EST,... Start Date: 05/02/21 Stop Date: 07/01/21 Status: Ordered clopidogrel 75 mg oral tablet 1, tablet, By Mouth, Daily, # 90 tablet, Refills 1, Route to Pharmacy Electronically, [id number], 178, cm, 05/11/21 8:52:00 EST, Height, 81, [...] # 473 mL, 0 Refills, [id number], 30, TAKE 15 ML BY MOUTH DAILY [...] 10/29/21 10:39:00 EDT, 05/02/21 10:39:00 EST, [id number] Partial fill upon patient request if the prescription is for a schedule II opioid drug., 178, cm,... Start Date: 05/02/21 Stop Date: 10/29/21 Status: Ordered metFORMIN 1000 mg oral tablet 1 tablet = 1,000 mg, By Mouth, 2 times a day, # 60 tablet, 5 Refills, Maintenance, 05/02/21 10:36:00 EST, Tablet, [facility]/pharmacy #[id number], Partial fill upon patient request, 178, cm, 04/27/21 4:54:00 EST,Height, 84.3, kg, 04/23/21 2:54:00 EST, Dry Weight Start Date: 05/02/21 Status: Ordered oxyCODONE 5 mg oral tablet 5 mg, 1, tablet, By Mouth, 5 times a day, SEWER PIPE CLEANER checked., # 140 tablet, Refills 0, Tot. Refills 0, Maintenance, 06/05/21 16:38:00 EST, Route to Pharmacy Electronically, [facility]/pharmacy [...] 05/02/21 10:38:00 EST, Route to Pharmacy Electronically, [facility]/pharmacy #[id number], Partial fill upon patient request if the prescription is for a sc... Start Date: 05/02/21 Stop Date: 10/29/21 Status: Ordered Problem List Condition Effective Dates Status Health Status Inform ant Benign hypertension(Confirmed) Active CAD (coronary artery disease)(Confirmed) 1 Active Chronic lower back pain(Confirmed) Active Diabetes mellitus(Confirmed) Active Encephalopathy(Confirmed) Active Dyslipidemia(Confirmed) Active Acute ischemic stroke(Confirmed) 2 11/07/20 Active 1angioplasty 2000; 3 stents at [facility] 2R frontal stroke secondary [...]
--- OUTSIDE RECORDS SUMMARY | 2023-04-11 15:23 | XMS_ITS | Continuity of Care Document ---
Author Name Unknown Organization [facility] Adult Address [address] [place] [address]- Care Team Providers Care Juvenile Court Judge Name Role Phone Luiz SALAS, Sonya Primary Care Physician [place] [facility] [place] 09/05/20 - 10/05/20 [facility] [address] [place] [phone]- Allergies, Adverse Reactions, Alerts Substance Reaction Severity [...] capsule, 11 Refills, Maintenance,08/19/20 5:59:00 EDT, Capsule, [facility] #[id number], Partial fill upon patient request if the [...] 2 Refills, Maintenance, 10/07/20 11:44:00 EDT, Tablet, [facility] #[id number], Partial fill upon patient request if the prescription is fora schedule II opioid drug., 177.8, cm, 08/08/20 11:... Start Date: 10/07/20 Stop Date: 01/05/21 Status: Ordered lisinopril 20 mg oral tablet 20 mg, 1, tablet, By Mouth, Daily, # 90 tablet, Refills 1, Tot. Refills 1, Maintenance, 08/19/20 10:00:00 EDT, Route to Pharmacy Electronically, [facility] #[id number], Partial fill upon patientrequest if the prescription is for a schedule II op... Start Date: 08/19/20 Stop Date: 02/15/21 Status: Ordered metFORMIN 1000 mg oral tablet 1 tablet = 1,000 mg, By Mouth, 2 times a day, # 60 tablet, 0 Refills, Maintenance, 03/15/20 12:57:00 EST, Tablet, [facility], Partial fill upon patient request, 178, cm, 03/15/20 11:15:00 EST, Height, 105, kg, 03/12/20 6:12:00 EST, Dry W... Start Date: 03/15/20 Status: Ordered ofloxacin 0.3% otic solution See Instructions, 5 drops Right ear once daily x 7 days, # 10 mL, Refills 0, Tot. Refills 0, Maintenance, 03/15/20 14:25:00 EST, Instructions Replace Required Details, Route to Pharmacy Electronically, [facility], Partial fill upon patie... Start Date: 03/15/20 Status: Ordered oxyCODONE 5 mg oral tablet 5 mg, 1, tablet, By Mouth, 5 times a day, CENTRAL STERILE TECHNICIAN checked., # 140 tablet, Refills 0, Tot. Refills 0, Maintenance, 10/04/20 17:46:00 EDT, Route to Pharmacy Electronically, [facility] #[id number], Partial fill upon patient request if the prescription i... Start Date: 10/04/20 Status: Ordered Probiotic Formula (Bacillus Coagulans) oral capsule 1 capsule, By Mouth, Daily, # 10 capsule, 0 Refills, Maintenance, 04/14/20 11:39:00 EST, Capsule, [facility] #[id number], Partial fill upon patient request if the prescription is for a schedule II opioid drug., 1 capsule By Mouth Daily, 178, cm,... Start Date: 04/14/20 Status: Ordered simvastatin 40 mg oral tablet 40 mg, 1, tablet, By Mouth, Daily at bedtime, # 30 tablet, Refills 5, Tot. Refills 5, Maintenance, 08/19/20 5:58:00 EDT, Route to Pharmacy Electronically, [facility] #[id number], Partial fill upon patient request, 177.8, cm, 08/08/20 11:27:00 EDT... Start Date: 08/19/20 Stop Date: 02/15/21 Status: Ordered Problem List Condition Effective Dates Status Health Status Inform ant Benign hypertension(Confirmed) Active CAD (coronary artery disease)(Confirmed) 1 Active Chronic lower back pain(Confirmed) Active Diabetes mellitus(Confirmed) Active Encephalopathy(Confirmed) Active Dyslipidemia(Confirmed) Active 1angioplasty 2000; 3 stents at [facility] Social History Social History Type Response Smoking Status Smoker, current stat us unknown; Type: Cigarettes; Other: 1/2-1 pk; entered on: 05/10/20 Sex
--- OUTSIDE RECORDS SUMMARY | 2023-04-11 15:23 | XMS_ITS | Continuity of Care Document ---
Author Name Unknown Organization [facility] Adult Address [address] [place] [address]- Care Team Providers Care Senior Energy Analyst Name Role Phone Luiz SALAS, Sonya Primary Care Physician [phone] Encounter [facility] [place] Date(s): 12/20/20 - 01/19/21 [facility] [address] [place] [phone]- Allergies, Adverse Reactions, Alerts Substance Reaction Severity [...] Refills, Maintenance, 01/16/21 10:30:00 EDT, [facility]t, [id number], Partial fill upon patient [...] capsule, 11 Refills, Maintenance,01/16/21 10:26:00 EDT, Capsule, [facility]/pharmacy #[id number], Partial fill upon patient request if the prescription is for a schedule II opioid drug., 178, cm, 0... Start Date: 01/16/21 Stop Date: 01/11/22 Status: Ordered clonazePAM 0.5 mg oral tablet 1 tablet = 0.5 mg, By Mouth, 3 times a day, # 90 tablet, 1 Refills, Maintenance, 01/16/21 10:52:00 EDT, Tablet, [facility]/pharmacy #[id number], Partial fill upon patient [...] 01/16/21 10:29:00 EDT, Route to Pharmacy Electronically, [facility]/pharmacy #[id number], Partial fill upon patient [...] 0 Refills, Maintenance, 03/15/20 12:57:00 EST, Tablet, [facility], Partial fill upon patient request, 178, cm, 03/15/20 11:15:00 EST, Height, 105, kg, 03/12/20 6:12:00 EST, Dry W... Start Date: 03/15/20 Status: Ordered oxyCODONE 5 mg oral tablet 5 mg, 1, tablet, By Mouth, 5 times a day, RETURNED ITEM CLERK checked., # 140 tablet, Refills 0, Tot. Refills 0, Maintenance, 01/16/21 10:52:00 EDT, Route to Pharmacy Electronically, [facility]/pharmacy #[id number], Partial fillupon patient request [...] 12:50:00 EDT, Route to Pharmacy Electronically, [facility], Partial fill upon patient [...] 11/07/20 Active 1angioplasty 2000; 3 st[facility] at [facility] [...]
--- OUTSIDE RECORDS SUMMARY | 2023-04-11 15:23 | XMS_ITS | Continuity of Care Document ---
Author Name Unknown Organization [facility] Adult Address [address] [place] [address]- Care Team Providers Care Form Maker Plaster Name Role Phone Sonya Dee NP Primary Care Physician Encounter [facility] [place] Date(s): 12/05/20 - 12/12/20 [facility] [address] [place] [phone]- Encounter Diagnosis Benign hypertension(Discharge Diagnosis) - 12/11/20 Dyslipidemia(Discharge Diagnosis) - 12/11/20 Status post CVA(Discharge Diagnosis) - 12/11/20 Attending Physician: Sonya Dee NP Allergies, Adverse [...] capsule, 11 Refills, Maintenance,08/19/20 5:59:00 EDT, Capsule, [facility] #[id number], Partial fill upon patient request if the [...] 1 Refills, Maintenance, 12/05/20 17:53:00 EDT, Tablet, [facility] #[id number], Partial fill upon patient request if the [...] tablet, 2 Refills, Maintenance, 11/18/20 10:12:00 EDT, [facility] #[id number], 178, cm, 11/14/20 9:36:00 EDT, Height, 100, [...] 0 Refills, Maintenance, 03/15/20 12:57:00 EST, Tablet, [facility], Partial fill upon patient request, 178, cm, 03/15/20 11:15:00 EST, Height, 105, kg, 03/12/20 6:12:00 EST, Dry W... Start Date: 03/15/20 Status: Ordered oxyCODONE 5 mg oral tablet 5 mg, 1, tablet, By Mouth, 5 times a day, CONCRETE BATCH PLANT OPERATOR checked., # 140 tablet, Refills 0, Tot. 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 S/P Elective Coiling of Unruptured Aneurysm with Subsequent Left-Sided Weakness: Acute nonhemorrhagic infarct in the RIGHT posterior frontal lobe: Diagnosis Diagnosis Type Effective Dates Health Status Clinical Service Informant Benign hypertension Discharge Diagnosis 12/11/20 Dyslipidemia Discharge Diagnosis 12/11/20 Status post CVA Discharge Diagnosis 12/11/20 Vital Signs Most recent to oldest [Reference Range]: 1 Height 178 cm (12/05/20 4:06 PM) Weight 82.2 kg (12/05/20 4:06 PM) Oxygen Saturation [94-100 %] 98 % (12/05/20 4:06 PM) Pulse Rate [55-90 bpm] 116 bpm *H* (12/05/20 4:06 PM) Body Mass Index [18.5-24.99] 25.94 *H* (12/05/20 4:06 PM) Blood Pressure [90-138/55-84 mm Hg] 100/ 56mm Hg (12/05/20 4:06 PM) Blood pressure sites Arm, right (12/05/20 4:06 PM) Weight Obtained Via Standing scale (12/05/20 4:06 PM) Social History Social History Type Response Smoking Status Smoker, current stat us unknown; Type: Cigarettes; Other: 1/2-1 pk; entered on: 05/10/20 Sex
--- OUTSIDE RECORDS SUMMARY | 2023-04-11 15:23 | XMS_ITS | Continuity of Care Document ---
Author Name Unknown Organization [facility] Adult Address [address] [place] [address]- Care Team Providers Care Assistant Tennis Coach Name Role Phone Sonya Dee NP Primary Care Physician [phone] [place] [facility] [place] 09/09/20 [place] 10/09/20 [facility] [address] [place] [phone]- Allergies, Adverse Reactions, Alerts Substance Reaction Severity [...] capsule, 11 Refills, Maintenance,08/19/20 5:59:00 EDT, Capsule, [facility] #[id number], Partial fill upon patient request if the [...] 2 Refills, Maintenance, 10/07/20 11:44:00 EDT, Tablet, [facility] #[id number], Partial fill upon patient request if the prescription is fora schedule II opioid drug., 177.8, cm, 08/08/20 11:... Start Date: 10/07/20 Stop Date: 01/05/21 Status: Ordered lisinopril 20 mg oral tablet 20 mg, 1, tablet, By Mouth, Daily, # 90 tablet, Refills 1, Tot. Refills 1, Maintenance, 08/19/20 10:00:00 EDT, Route to Pharmacy Electronically, [facility] #[id number], Partial fill upon patientrequest if the prescription is for a schedule II op... Start Date: 08/19/20 Stop Date: 02/15/21 Status: Ordered metFORMIN 1000 mg oral tablet 1 tablet = 1,000 mg, By Mouth, 2 times a day, # 60 tablet, 0 Refills, Maintenance, 03/15/20 12:57:00 EST, Tablet, [facility], Partial fill upon patient request, 178, cm, 03/15/20 11:15:00 EST, Height, 105, kg, 03/12/20 6:12:00 EST, Dry W... Start Date: 03/15/20 Status: Ordered ofloxacin 0.3% otic solution See Instructions, 5 drops Right ear once daily x 7 days, # 10 mL, Refills 0, Tot. Refills 0, Maintenance, 03/15/20 14:25:00 EST, Instructions Replace Required Details, Route to Pharmacy Electronically, [facility], Partial fill upon patie... Start Date: 03/15/20 Status: Ordered oxyCODONE 5 mg oral tablet 5 mg, 1, tablet, By Mouth, 5 times a day, GASOLINE SERVICE ATTENDANT checked., # 140 tablet, Refills 0, Tot. Refills 0, Maintenance, 10/04/20 17:46:00 EDT, Route to Pharmacy Electronically, [facility] #[id number], Partial fill upon patient request if the prescription i... Start Date: 10/04/20 Status: Ordered Probiotic Formula (Bacillus Coagulans) oral capsule 1 capsule, By Mouth, Daily, # 10 capsule, 0 Refills, Maintenance, 04/14/20 11:39:00 EST, Capsule, [facility] #[id number], Partial fill upon patient request if the prescription is for a schedule II opioid drug., 1 capsule By Mouth Daily, 178, cm,... Start Date: 04/14/20 Status: Ordered simvastatin 40 mg oral tablet 40 mg, 1, tablet, By Mouth, Daily at bedtime, # 30 tablet, Refills 5, Tot. Refills 5, Maintenance, 08/19/20 5:58:00 EDT, Route to Pharmacy Electronically, [facility] #[id number], Partial fill upon patient request, 177.8, cm, 08/08/20 11:27:00 EDT... Start Date: 08/19/20 Stop Date: 02/15/21 Status: Ordered Problem List Condition Effective Dates Status Health Status Inform ant Benign hypertension(Confirmed) Active CAD (coronary artery disease)(Confirmed) 1 Active Chronic lower back pain(Confirmed) Active Diabetes mellitus(Confirmed) Active Encephalopathy(Confirmed) Active Dyslipidemia(Confirmed) Active 1angioplasty 2000; 3 stents at [facility] Social History Social History Type Response Smoking Status Smoker, current stat us unknown; Type: Cigarettes; Other: 1/2-1 pk; entered on: 05/10/20 Sex
--- OUTSIDE RECORDS SUMMARY | 2023-04-11 15:23 | XMS_ITS | Continuity of Care Document ---
Author Name Unknown Organization [facility] Address [address], [address], [address] [place] [phone]- Care Team Providers Care Shaft Headman Name Role Phone Luiz SALAS, Sonya Primary Care Physician [place] [facility] [place]/14/20 [facility] [address], 3rd Floor, [address] [place] [id number] Allergies, Adverse Reactions, Alerts Substance Reaction [...] 05/12/20 9:54:00 EST, Route to Pharmacy Electronically, [id number] #[id number], Partial fill upon patient request if the prescription is for a schedule II opi... Start Date: 05/12/20 Stop Date: 08/10/20 Status: Ordered metFORMIN 1000 mg oral tablet 1 tablet = 1,000 mg, By Mouth, 2 times a day, # 60 tablet, 0 Refills, Maintenance, 03/15/20 12:57:00 EST, Tablet, [facility], Partial fill upon patient request, 178, cm, 03/15/20 11:15:00 EST, Height, 105, kg, 03/12/20 6:12:00 EST, Dry W... Start Date: 03/15/20 Status: Ordered ofloxacin 0.3% otic solution See Instructions, 5 drops Right ear once daily x 7 days, # 10 mL, Refills 0, Tot. Refills 0, Maintenance, 03/15/20 14:25:00 EST, Instructions Replace Required Details, Route to Pharmacy Electronically, [facility], Partial fill upon patie... Start Date: 03/15/20 Status: Ordered oxyCODONE 5 mg oral tablet See Instructions, 7 days one tablet 5 x day, # 35 tablet, Refills 0, Tot. Refills 0, Maintenance, 05/12/20 14:15:00 EST, Instructions Replace Required Details, [id number], Partial fill upon patient r... Start Date: 05/12/20 Status: Ordered Probiotic Formula (Bacillus Coagulans) oral capsule 1 capsule, By Mouth, Daily, # 10 capsule, 0 Refills, Maintenance, 04/14/20 11:39:00 EST, [id number], Partial fill upon patient request if the prescription is for a schedule II opioid drug., 1 capsule By Mouth Daily, 178, cm,... Start Date: 04/14/20 Status: Ordered simvastatin 40 mg oral tablet 40 mg, 1, tablet, By Mouth, Daily at bedtime, # 30 tablet, Refills 0, Tot. Refills 0, Maintenance, 03/15/20 12:20:00 EST, Route to Pharmacy Electronically, [facility], Partial fill uponpatient request, 178, cm, 03/15/20 11:15:00 EST, He... Start Date: 03/15/20 Status: Ordered Problem List Condition Effective Dates Status Health Status Inform ant Benign hypertension(Confirmed) Active CAD (coronary artery disease)(Confirmed) 1 Active Chronic lower back pain(Confirmed) Active Diabetes mellitus(Confirmed) Active Dyslipidemia(Confirmed) Active 1angioplasty 2000; 3 stents at [facility] Social History Social History Type Response Smoking Status Smoker, current stat us unknown; Type: Cigarettes; Other: 1/2-1 pk; entered on: 05/10/20 Sex
--- OUTSIDE RECORDS SUMMARY | 2023-04-11 15:23 | XMS_ITS | Continuity of Care Document ---
Author Name Unknown Organization [facility] Address [address] [place] [address]- Care Team Providers Care Radio Repairman Name Role Phone Sonya Dee NP Primary Care Physician [place] [facility] [place] 03/20/21 [facility] [address] [place] [phone]- Encounter Diagnosis H/O: CVA (cerebrovascular accident)(Discharge Diagnosis) - 03/17/21 Chronic lower back pain(Discharge Diagnosis) - 03/17/21 Attending Physician: Sonya Dee NP Allergies, Adverse [...] Refills, Maintenance, 01/16/21 10:30:00 EDT, Tablet, [id number], Partial fill upon patient request if the prescription is for a schedule II opioid drug., 178, cm, 12/29/20 5:31:00 EDT, Height, 1... Start Date: 01/16/21 Stop Date: 07/15/21 Status: Ordered aspirin 81 mg oral tablet, chewable 81 mg, 1, tablet, By Mouth, Daily, # 30 tablet, Refills 5, Tot. Refills 5, Maintenance, 01/16/21 10:30:00 EDT, Route to Pharmacy Electronically, [facility]/pharmacy [...] 473 mL, 0 Refills, [facility] [id number], 30, TAKE 15 ML BY MOUTH DAILY [...] Maintenance, 03/15/20 12:57:00 EST, Tablet, [facility], Partial fill upon patient request, 178, cm, 03/15/20 11:15:00 EST, Height, 105, kg, 03/12/20 6:12:00 EST, Dry W... Start Date: 03/15/20 Status: Ordered oxyCODONE 5 mg oral tablet 5 mg, 1, tablet, By Mouth, 5 times a day, PERSONAL COUNSELOR checked., # 140 tablet, Refills 0, Tot. Refills 0, Maintenance, 02/24/21 15:51:00 EDT, Route to Pharmacy Electronically, [facility]/pharmacy [...] 12/28/20 12:50:00 EDT, Route to Pharmacy Electronically, [facility], Partial fill upon patient [...] Informant H/O: CVA (cerebrovascular accident) Discharge Diagnosis 03/17/21 Chronic lower back pain Discharge Diagnosis 03/17/21 Vital Signs Most recent to oldest [Reference Range]: 1 Height 178 cm (03/13/21 1:09 PM) Weight 89.9 kg (03/13/21 1:09 PM) Oxygen Saturation [94-100 %] 98 % (03/13/21 1:09 PM) Pulse Rate [55-90 bpm] 97 bpm *H* (03/13/21 1:09 PM) Body Mass Index [18.5-24.99] 28.37 *H* (03/13/21 1:09 PM) Blood Pressure [90-138/55-84 mm Hg] 110/ 60mm Hg (03/13/21 1:09 PM) Temperature [96.8-100.4 DegF] 97.8 DegF (03/13/21 1:09 PM) Mode of Delivery (Oxygen) Room air (03/13/21 1:09 PM) Blood pressure sites Arm, left (03/13/21 1:09 PM) Temperature Route Oral (03/13/21 1:09 PM) Weight Obtained Via Standing scale (03/13/21 1:09 PM) Social History Social History Type Response Smoking Status Smoker, current stat us unknown; Type: Cigarettes; Other: 1/2-1 pk; entered on: 05/10/20 Sex
--- OUTSIDE RECORDS SUMMARY | 2023-04-11 15:23 | XMS_ITS | Continuity of Care Document ---
Author Name Unknown Organization [facility] Address Unknown Care Team Providers Care Wood Products Manufacturer Name Role Phone Luiz SALAS, Sonya Primary Care Physician [phone] [place] [facility] [id number] Date(s): 10/15/20 - 12/29/20 [facility] Attending Physician: Espinoza James MD Admitting Physician: Espinoza James MD Allergies, Adverse Reactions, [...] EDT, Tablet Start Date: 12/26/20 Status: Ordered aspirin 81 mg oral tablet, [...] capsule, 11 Refills, Maintenance,08/19/20 5:59:00 EDT, Capsule, [facility][id number], Partial fill upon patient request if the prescription is for a schedule II opioid drug., 17... Start Date: 08/19/20 Stop Date: 08/14/21 Status: Ordered clonazePAM 0.5 mg oral tablet 1 tablet = 0.5 mg, By Mouth, 3 times a day, # 90 tablet, 1 Refills, Maintenance, 12/05/20 17:53:00 EDT, Tablet, [facility] #[id number], Partial fill upon patient request if the prescription is for a schedule II opioid drug., 178, cm, 12/05/20 16:... Start Date: 12/05/20 Stop Date: 02/03/21 Status: Ordered glimepiride 4 mg oral tablet 1 tablet, By Mouth, 2 times a day, # 60 tablet, 2 Refills, Maintenance, 11/18/20 10:12:00 EDT, [facility] #[id number], 178, cm, 11/14/20 9:36:00 EDT, Height, 100, kg, 11/07/20 7:34:00 EDT, Dry Weight Start Date: 11/18/20 Status: Ordered lisinopril 10 mg oral tablet 10 mg, 1, tablet, By Mouth, Daily, Maintenance, 12/26/20 9:16:00 EDT Start Date: 12/26/20 Status: Ordered magnesium oxide 400 mg oral [...] 0 Refills, Maintenance, 03/15/20 12:57:00 EST, Tablet, [facility], Partial fill upon patient request, 178, cm, 03/15/20 11:15:00 EST, Height, 105, kg, 03/12/20 6:12:00 EST, Dry W... Start Date: 03/15/20 Status: Ordered oxyCODONE 5 mg oral tablet 5 mg, 1, tablet, By Mouth, Every 4 hours, FINANCIAL ENGINEER checked., # 18 tablet, Refills 0, Tot. 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 S/P Elective Coiling of Unruptured Aneurysm with Subsequent Left-Sided Weakness: Acute nonhemorrhagic infarct in the RIGHT posterior frontal lobe: Vital Signs Most recent to oldest [Reference Range]: 1 Oxygen Saturation [94-100 %] 100 % (11/07/20 10:15 AM) Blood Pressure [90-138/55-84 mm Hg] 173/ 98mm Hg *H* (11/07/20 10:15 AM) Respiratory Rate [16-30 br/min] 12 br/mi n *L* (11/07/20 10:15 AM) Temperature [96.8-100.4 DegF] 97.5 DegF (11/07/20 10:15 AM) Mode of Delivery (Oxygen) Room air (11/07/20 10:15 AM) Temperature Route Oral (11/07/20 10:15 AM) Social History Social History Type Response Smoking Status Smoker, current stat us unknown; Type: Cigarettes; Other: 1/2-1 pk; entered on: 05/10/20 Sex
--- OUTSIDE RECORDS SUMMARY | 2023-04-11 15:23 | XMS_ITS | Continuity of Care Document ---
Author Name Unknown Organization [facility] Address [address] [place] [address]- Care Team Providers Care Quality Assurance Technician Name Role Phone Luiz SALAS, Sonya Primary Care Physician [place] [facility] [place](s): 08/02/21 - 09/01/21 [facility] [address] [place] [phone]- Allergies, Adverse Reactions, Alerts Substance Reaction Severity [...] capsule, 11 Refills, Maintenance,05/02/21 10:36:00 EST, Capsule, [facility] #[id number], Partial fill upon patient request if the prescription is for a schedule II opioid drug., 178, cm, 0... Start Date: 05/02/21 Stop Date: 04/27/22 Status: Ordered clonazePAM 0.5 mg oral tablet 1 tablet = 0.5 mg, By Mouth, 3 times a day, # 90 tablet, 1 Refills, Maintenance, 07/25/21 17:16:00 EDT, Tablet, [facility] #[id number], Partial fill upon patient request if the prescription is for a schedule II opioid drug., 178, cm, 07/24/21 16:10:00 EDT... Start Date: 07/25/21 Stop Date: 09/23/21 Status: Ordered clopidogrel 75 mg oral tablet 1, tablet, By Mouth, Daily, # 90 tablet, Refills 1, Route to Pharmacy Electronically, [facility] [id number], 178, cm, 05/11/21 8:52:00 EST, Height, 81, kg, 05/06/21 2:22:00 EST, Dry Weight Start Date: 05/30/21 Status: Ordered glimepiride 4 mg oral tablet 1 tablet, By Mouth, 2 times a day, # 60 tablet, 5 Refills, Maintenance, 05/02/21 10:36:00 EST, [facility]/pharmacy #[id number], 178, cm, 04/27/21 4:54:00 EST, [...] 5 Refills, Maintenance, 05/02/21 10:36:00 EST, Tablet, [facility]/pharmacy #[id number], Partial fill upon patient request, 178, cm, 04/27/21 4:54:00 EST,Height, 84.3, kg, 04/23/21 2:54:00 EST, Dry Weight Start Date: 05/02/21 Status: Ordered oxyCODONE 5 mg oral tablet 5 mg, 1, tablet, By Mouth, 5 times a day, ULTRASONIC SOLDERER checked., # 140 tablet, Refills 0, Tot. [...] 05/02/21 10:38:00 EST, Route to Pharmacy Electronically, [facility]/pharmacy #[id number], Partial fill upon patient request if [...]
--- OUTSIDE RECORDS SUMMARY | 2023-04-11 15:23 | XMS_ITS | Continuity of Care Document ---
Author Name Unknown Organization [facility] Address [address] [place] [address]- Care Team Providers Care Stereotype Finisher Name Role Phone Luiz SALAS, Sonya Primary Care Physician Encounter [facility] [place] Date(s): 02/08/21 - 02/15/[address] [id number] Attending Physician: Not on Staff, [...] Refills, Maintenance, 01/16/21 10:30:00 EDT, Tablet, [id number], Partial fill upon patient request if the [...] capsule, 11 Refills, Maintenance,01/16/21 10:26:00 EDT, Capsule, [facility] #[id number], Partial fill upon patient request [...] 01/16/21 10:29:00 EDT, Route to Pharmacy Electronically, [facility]/pharmacy #[id number], Partial fill upon patient request [...] 0 Refills, Maintenance, 03/15/20 12:57:00 EST, Tablet, [facility], Partial fill upon patient request, 178, [...] By Mouth, 5 times a day, AIRCRAFT POWERTRAIN REPAIRER checked., # 140 tablet, Refills 0, Tot. Refills 0, Maintenance, 01/16/21 10:52:00 EDT, Route to Pharmacy Electronically, [facility]/pharmacy #[id number], Partial fillupon patient request if [...] 12/28/20 12:50:00 EDT, Route to Pharmacy Electronically, [facility], Partial fill upon patient request [...] 11/07/20 Active 1angioplasty 2000; [facility] [...]
--- OUTSIDE RECORDS SUMMARY | 2023-04-11 15:23 | XMS_ITS | Continuity of Care Document ---
Author Name Unknown Organization [facility] Address [address] [place] [address]- Care Team Providers Care Composition Stone Applicator Name Role Phone Luiz SALAS, Sonya Primary Care Physician Encounter [facility] Date(s): 01/23/21 - 02/22/21 [facility] [address] [place] [address]- Allergies, Adverse Reactions, Alerts Substance Reaction Severity [...] Refills, Maintenance, 01/16/21 10:30:00 EDT, Tablet, [facility] #[id number], Partial fill upon patient request if the prescription is for a schedule II opioid drug., 178, cm, 12/29/20 5:31:00 EDT, Height, 1... Start Date: 01/16/21 Stop Date: 07/15/21 Status: Ordered aspirin 81 mg oral tablet, chewable 81 mg, 1, tablet, By Mouth, Daily, # 30 tablet, Refills 5, Tot. Refills 5, Maintenance, 01/16/21 10:30:00 EDT, Route to Pharmacy Electronically, [facility]acy #[id number], Partial fill upon patient request if [...] 11 Refills, Maintenance,01/16/21 10:26:00 EDT, Capsule, [facility] #[id number], Partial fill upon patient request if the prescription is for a schedule II opioid drug., 178, cm, 0... Start Date: 01/16/21 Stop Date: 01/11/22 Status: Ordered clonazePAM 0.5 mg oral tablet 1 tablet = 0.5 mg, By Mouth, 3 times a day, # 90 tablet, 1 Refills, Maintenance, 01/16/21 10:52:00 EDT, Tablet, [facility] #[id number], Partial fill upon patient request if [...] 10:29:00 EDT, Route to Pharmacy Electronically, [facility] #[id number], Partial fill upon patient request if [...] 0 Refills, Maintenance, 03/15/20 12:57:00 EST, Tablet, [facility], Partial fill upon patient request, 178, cm, 03/15/20 11:15:00 EST, Height, 105, kg, 03/12/20 6:12:00 EST, Dry W... Start Date: 03/15/20 Status: Ordered MiraLax oral powder for reconstitution = 17 Gm, By Mouth, Daily, for 14 days, dissolve in water before taking, # 238 Gm, 0 Refills, Acute 02/27/21 13:29:00 EST, 02/13/21 13:29:00 EDT, REC Powder, [facility]/pharmacy #[id number], Partial fill upon patient request if the prescription is for a schedule II... Start Date: 02/13/21 Stop Date: 02/27/21 Status: Ordered oxyCODONE 5 mg oral tablet 5 mg, 1, tablet, By Mouth, 5 times a day, CEMENT CONVEYOR OPERATOR checked., # 140 tablet, Refills 0, Tot. Refills 0, Maintenance, 01/16/21 10:52:00 EDT, Route to Pharmacy Electronically, [facility]/pharmacy #[id number], Partial fillupon patient request if the [...] 12/28/20 12:50:00 EDT, Route to Pharmacy Electronically, [facility], Partial fill upon patient [...] 11/07/20 Active 1angioplasty 2000; 3 stents at [facility] 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 [...]
--- OUTSIDE RECORDS SUMMARY | 2023-04-11 15:23 | XMS_ITS | Continuity of Care Document ---
Author Name Unknown Organization [facility] Address [address] [place] [address]- Care Team Providers Care Company Pilot Name Role Phone Luiz SALAS, Sonya Primary Care Physician [phone] [place] [facility] [facility] [place] 08/03/[address] [address]- Discharge Disposition: A-D/C Home Attending Physician: Dionne Spencer DO Admitting Physician: Dionne Spencer DO Referring Physician: Not on Staff, Referring [...] Refills, Maintenance, 05/02/21 10:38:00 EST, Tablet, [id number], Partial fill upon patient request if the prescription is for a schedule II opioid drug., 178, cm, 04/27/21 4:54:00 ES... Start Date: 05/02/21 Stop Date: 10/29/21 Status: Ordered cephalexin monohydrate 500 mg oral capsule 1 capsule = 500 mg, By Mouth, 2 times a day, for 7 days, # 14 capsule, 0 Refills, Acute 08/09/21 22:59:00 EDT, 08/02/21 22:59:00 EDT, Capsule, [facility]acy #[id number], Partial fill upon patient request ifthe [...] 1 Refills, Maintenance, 07/25/21 17:16:00 EDT, Tablet, [id number], Partial fill upon patient request if the prescription is for a schedule II opioid drug., 178, cm, 07/24/21 16:10:00 EDT... Start Date: 07/25/21 Stop Date: 09/23/21 Status: Ordered clopidogrel 75 mg oral tablet 1, tablet, By Mouth, Daily, # 90 tablet, Refills 1, Route to Pharmacy Electronically, [id number], 178, cm, 05/11/21 8:52:00 EST, Height, 81, [...] 10/29/21 10:39:00 EDT, 05/02/21 10:39:00 EST, Tablet, [facility]acy #[id number], Partial fill upon patient request if the prescription is for a schedule II opioid drug., 178, cm,... Start Date: 05/02/21 Stop Date: 10/29/21 Status: Ordered metFORMIN 1000 mg oral tablet 1 tablet = 1,000 mg, By Mouth, 2 times a day, # 60 tablet, 5 Refills, Maintenance, 05/02/21 10:36:00 EST, Tablet, [facility] #[id number], Partial fill upon patient request, 178, cm, 04/27/21 4:54:00 EST,Height, 84.3, kg, 04/23/21 2:54:00 EST, Dry Weight Start Date: 05/02/21 Status: Ordered oxyCODONE 5 mg oral tablet 5 mg, 1, tablet, By Mouth, 5 times a day, DIE POLISHER checked., # 140 tablet, Refills 0, Tot. 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 S/P Elective Coiling of Unruptured Aneurysm with Subsequent Left-Sided Weakness: Acute nonhemorrhagic infarct in the RIGHT posterior frontal lobe: Vital Signs Most recent to oldest [Reference Range]: 1 2 3 Oxygen Saturation [94-100 %] 96 % (08/03/21 4:52 AM) 99 % (08/02/21 9:25 PM) 98 % (08/02/21 6:17 PM) Pulse Rate [55-90 bpm] 75 bpm (08/03/21 4:52 AM) 59 bpm (08/02/21 9:25 PM) 57 bpm (08/02/21 6:17 PM) Blood Pressure [90-138/55-84 mm Hg] 131/80mm Hg (08/03/21 4:52 AM) 179/83mm Hg *H* (08/02/21 9:25 PM) 162/77mm Hg *H* (08/02/21 6:17 PM) Respiratory Rate [16-30 br/min] 18 br/min (08/03/21 4:52 AM) 17 br/min (08/02/21 9:25 PM) 14 br/min *L* (08/02/21 6:17 PM) Temperature [96.8-100.4 DegF] 98.9 DegF (08/02/21 9:25 PM) 97.9 DegF (08/02/21 4:30 PM) 97.6 DegF (08/02/21 2:39 PM) Mode of Delivery (Oxygen) Room air (08/03/21 4:52 AM) Room air (08/02/21 9:25 PM) Room air (08/02/21 6:17 PM) Blood pressure sites Arm, right (08/03/21 4:52 AM) Arm, left (08/02/21 9:25 PM) Arm, left (08/02/21 6:17 PM) Temperature Route Oral (08/02/21 9:25 PM) Oral (08/02/21 4:30 PM) Oral (08/02/21 2:39 PM) Social History Social History Type Response Smoking Status Smoker, current stat us unknown; Type: Cigarettes; Other: 1/2-1 pk; entered on: 05/10/20 Sex
--- OUTSIDE RECORDS SUMMARY | 2023-04-11 15:23 | XMS_ITS | Continuity of Care Document ---
Author Name Unknown Organization [facility] Address [address] [place] [address]- Care Team Providers Care Manager Garage Name Role Phone Sonya Dee NP [id number] 06[facility]21/[facility] [address] [place] [id number]- Encounter Diagnosis Chronic lower back pain(Discharge Diagnosis) - 06/14/20 Diabetes mellitus(Discharge Diagnosis) - 06/14/20 Benign hypertension(Discharge Diagnosis) - 06/14/20 Attending Physician: Sonya Dee NP Allergies, Adverse [...] 5 Refills, Maintenance, 06/14/20 10:21:00 EST, Tablet, [facility] #[id number], Partial fill upon patient request if the prescription is fora schedule II opioid drug., 177.8, cm, 06/14/20 9:3... Start Date: 06/14/20 Stop Date: 12/11/20 Status: Ordered lisinopril 20 mg oral tablet 20 mg, 1, tablet, By Mouth, Daily, # 90 tablet, Refills 0, Tot. Refills 0, Maintenance, 05/12/20 9:54:00 EST, Route to Pharmacy Electronically, [facility] #[id number], Partial fill upon patient request if the prescription is for a schedule II opi... Start Date: 05/12/20 Stop Date: 08/10/20 Status: Ordered metFORMIN 1000 mg oral tablet 1 tablet = 1,000 mg, By Mouth, 2 times a day, # 60 tablet, 0 Refills, Maintenance, 03/15/20 12:57:00 EST, Tablet, [facility], Partial fill upon patient request, 178, cm, 03/15/20 11:15:00 EST, Height, 105, kg, 03/12/20 6:12:00 EST, Dry W... Start Date: 03/15/20 Status: Ordered ofloxacin 0.3% otic solution See Instructions, 5 drops Right ear once daily x 7 days, # 10 mL, Refills 0, Tot. Refills 0, Maintenance, 03/15/20 14:25:00 EST, Instructions Replace Required Details, Route to Pharmacy Electronically, [facility], Partial fill upon patie... Start Date: 03/15/20 Status: Ordered oxyCODONE 5 mg oral tablet See Instructions, 28 days one tablet 5 x day, # 140 tablet, Refills 0, Tot. Refills 0, Maintenance,06/15/20 14:22:00 EST, Instructions Replace Required Details, Route to Pharmacy Electronically, [facility] #[id number], Partial fill upon patient... Start Date: 06/15/20 Status: Ordered Probiotic Formula (Bacillus Coagulans) oral capsule 1 capsule, By Mouth, Daily, # 10 capsule, 0 Refills, Maintenance, 04/14/20 11:39:00 EST, Capsule, [facility][id number], Partial fill upon patient request if the prescription is for a schedule II opioid drug., 1 capsule By Mouth Daily, 178, cm,... Start Date: 04/14/20 Status: Ordered simvastatin 40 mg oral tablet 40 mg, 1, tablet, By Mouth, Daily at bedtime, # 30 tablet, Refills 0, Tot. Refills 0, Maintenance, 03/15/20 12:20:00 EST, Route to Pharmacy Electronically, [facility], Partial fill uponpatient request, 178, cm, 03/15/20 11:15:00 EST, He... Start Date: 03/15/20 Status: Ordered Problem List Condition Effective Dates Status Health Status Inform ant Benign hypertension(Confirmed) Active CAD (coronary artery disease)(Confirmed) 1 Active Chronic lower back pain(Confirmed) Active Diabetes mellitus(Confirmed) Active Encephalopathy(Confirmed) Active Dyslipidemia(Confirmed) Active 1angioplasty 2000; 3 stents at [facility] Diagnosis Diagnosis Type Effective Dates Health Status Clinical Service Informant Chronic lower back pain Discharge Diagnosis 06/14/20 Diabetes mellitus Discharge Diagnosis 06/14/20 Benign hypertension Discharge Diagnosis 06/14/20 Vital Signs Most recent to oldest [Reference Range]: 1 Height 177.8 cm (06/14/20 9:36 AM) Social History Social History Type Response Smoking Status Smoker, current stat us unknown; Type: Cigarettes; Other: 1/2-1 pk; entered on: 05/10/20 Sex
--- OUTSIDE RECORDS SUMMARY | 2023-04-11 15:24 | XMS_ITS | Continuity of Care Document ---
Author Name Unknown Organization [facility] Adult Address [address] [place] [address]- Care Team Providers Care Hookman Name Role Phone Luiz SALAS, Sonya Primary Care Physician [facility]counter [facility] Date(s): 12/21/20 - 01/20/21 [facility] Adult [address] [place] [id number]- Allergies, Adverse Reactions, Alerts Substance Reaction Severity [...] Refills, Maintenance, 01/16/21 10:30:00 EDT, Tablet, [id number], Partial fill upon patient request if the [...] capsule, 11 Refills, Maintenance,01/16/21 10:26:00 EDT, Capsule, [facility]/pharmacy #[id number], Partial fill upon patient request if the prescription is for a schedule II opioid drug., 178, cm, 0... Start Date: 01/16/21 Stop Date: 01/11/22 Status: Ordered clonazePAM 0.5 mg oral tablet 1 tablet = 0.5 mg, By Mouth, 3 times a day, # 90 tablet, 1 Refills, Maintenance, 01/16/21 10:52:00 EDT, Tablet, [facility]/pharmacy #[id number], Partial fill [...] 01/16/21 10:29:00 EDT, Route to Pharmacy Electronically, [facility]/pharmacy #[id number], Partial fill upon patient [...] 03/15/20 12:57:00 EST, Tablet, [facility], Partial fill upon patient request, 178, cm, 03/15/20 11:15:00 EST, Height, 105, kg, 03/12/20 6:12:00 EST, Dry W... Start Date: 03/15/20 Status: Ordered oxyCODONE 5 mg oral tablet 5 mg, 1, tablet, By Mouth, 5 times a day, TRANSPORTATION EQUIPMENT PAINTER checked., # 140 tablet, Refills 0, Tot. Refills 0, Maintenance, 01/16/21 10:52:00 EDT, Route to Pharmacy Electronically, [facility]/pharmacy #[id number], Partial fillupon patient request if [...] 12/28/20 12:50:00 EDT, Route to Pharmacy Electronically, [facility], Partial fill upon patient request if [...] 11/07/20 Active 1angioplasty 2000; 3 stents at [facility] 2R frontal stroke secondary to [...]
--- OUTSIDE RECORDS SUMMARY | 2023-04-11 15:24 | XMS_ITS | Continuity of Care Document ---
Author Name Unknown Organization [facility] Address [address] [place] [address]- Care Team Providers Care Irrigator Sprinkling System Name Role Phone Luiz SALAS, Sonya Primary Care Physician [facility] Date(s): 08/24/21 - 09/23/21 [facility] [address] [place] [phone]- Allergies, Adverse Reactions, Alerts Substance Reaction Severity Status penicillin Active gabapentin Active Immunizations Given and Recorded Vaccine Date Status Refusal Reason influenza virus vaccine, inactivated 04/24/21 Give n influenza virus vaccine, inactivated 03/31/18 Efrain rded influenza virus vaccine, inactivated 01/09/17 Efarin rded SARS-CoV-2 (COVID-19) mRNA-1273 vaccine 02/23/21 R [...] Refills, Maintenance, 05/02/21 10:38:00 EST, Tablet, [id number], Partial fill upon patient request if the [...] 1, Route to Pharmacy Electronically, [id number], 178, cm, 05/11/21 8:52:00 EST, Height, 81, [...] tablet, By Mouth, 5 times a day, HEADER UP checked. fill on 09/15/21 20 tabs go [...] EST, Route to Pharmacy Electronically, [facility]/pharmacy #[id number], Partial fill upon patient request if the [...]
--- OUTSIDE RECORDS SUMMARY | 2023-04-11 15:24 | XMS_ITS | Continuity of Care Document ---
Author Name Unknown Organization [facility] Adult Address [address] [place] [address]- Care Team Providers Care Criminal Defense Attorney Name Role Phone Luiz INTERNET MARKETING STRATEGIST, Sonya Primary Care Physician [phone] [facility]counter [facility] Date(s): 08/09/22 - 09/08/22 [facility] [address] [place] [address]- Allergies, Adverse Reactions, Alerts Substance Reaction Severity Status penicillin 1 Active gabapentin Swelling Moderate Active Other Food Allergy 2 N&V - Nausea and vomiting Active sulfa drugs Active 1difficulty breathing/swollen lips 2Calf Liver Immunizations Given and Recorded Vaccine Date Status Refusal Reason influenza virus vaccine, inactivated 1 03/02/22 Gi jaime influenza virus vaccine, inactivated 04/24/21 Give n influenza virus vaccine, inactivated 03/31/18 Efarin rded influenza virus vaccine, inactivated 01/09/17 Efrain rded SARS-CoV-2 (COVID-19) mRNA-1273 vaccine 02/23/21 R ecorded SARS-CoV-2 (COVID-19) mRNA-1273 vaccine 02/02/21 R ecorded SARS-CoV-2 (COVID-19) mRNA-1273 vaccine 09/21/20 R ecorded SARS-CoV-2 (COVID-19) mRNA-1273 vaccine 08/23/20 R ecorded tetanus/diphtheria/pertussis, acel(Tdap) 05/26/19 Recorded pneumococcal 23-valent vaccine 02/04/13 Recorded Not Given Vaccine Date Status Refusal Reason influenza virus vaccine, inactivated 05/26/20 Not Given Patient Refuses 1Result Comment: [facility]: [id number] Medications Aspirin Low Dose 81 mg oral [...] Maintenance, 07/31/22 13:23:00 EDT, [facility], 178, cm, 07/23/22 [...] Route to Pharmacy Electronically, [facility], 178, cm, 07/23/22 [...] 0 Refills, Maintenance, 08/01/22 11:17:00 EDT, [facility], 178, cm, 07/23/22 11:32:00 EDT, Height, [...] 13:25:00 EDT, Route to Pharmacy Electronically, [facility], 178, cm, 07/23/22 11:32:00 EDT, Height, [...] 1 Refills, Maintenance, 07/31/22 13:25:00 EDT, [facility], 178, cm, 07/23/22 11:32:00 EDT, Height, 72.5, kg, 03/08/22 4:29:00 EST, Dry Weight Start Date: 07/31/22 Status: Ordered nicotine 21 mg/24 hr transdermal film, extended release 1 patch, Topically, Daily, # 30 patch, 0 Refills, Maintenance, 03/14/22 14:53:00 EST, Patch, [facility], Partial fill upon patient [...] Confirmed Active 1angioplasty 2000; 3 stents at [facility] 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 [...] Professional Member Role: PCP Address: Address: [address] [facility], 3rd Floor [facility] [place] [address]- Name: Pola Reid RN [facility] Care Nurse Name: Kacie Campbell RN Position: [facility] RN Member Role: Primary Care Nurse Name: Charito Vazquez RN Position: [facility] [...] Care Nurse Name: Chandni Gibbons RN Position: [facility] RN Member Role: Primary Care Nurse Name: Viry Zacarias RN Position: [facility] RN Member Role: Primary Care Nurse Name: Kerri Cunha RN Position: [facility] Hospital Sanitation Manager Member Role: Primary Care Nurse Name: Atiya Mcintyre RN Position: [facility] RN Member Role: Primary Care Nurse Care Team Related Persons Name: SANJAY BRUNNERN Address: home [address] [place] [address] Name: SANJAY CORRALN Address: home [address] [facility] [address] [place] [address]
--- OUTSIDE RECORDS SUMMARY | 2023-04-11 15:24 | XMS_ITS | Continuity of Care Document ---
Author Name Unknown Organization [facility] ter Address [address] [place] [id number]- Care Team Providers Care Lace Inspector Name Role Phone Luiz SALAS, Sonya Primary Care Physician Encounter [facility] Date(s): 11/08/21 - 11/10/[address] [address]- Encounter Diagnosis Physical deconditioning(Final) - 11/08/21 Discharge Disposition: A-Transfer SNF Attending Physician: Elie Chino MD Admitting Physician: Elie Chino MD Referring Physician: Not on Staff, Referring [...] bedtime, # 28 tablet, 0 Refills, [facility], 160, cm, 10/22/21 7:52:00 EDT, Height, [...] Electronically, [id number], 178, cm, 05/11/21 8:52:00 EST, Height, 81, [...] 10/22/21 16:00:00 EDT, Route to Pharmacy Electronically, [facility], Partial fill upon patient request if the prescription... Start Date: 10/22/21 Stop Date: 10/25/21 Status: Ordered Tums 500 mg oral tablet, chewable 500 mg, 1, tablet, Chew, 3 times a day, PRN, # 90 tablet, Refills 5, Tot. Refills 5, Maintenance, Dyspepsia, 05/02/21 10:38:00 EST, Route to Pharmacy Electronically, [facility]/pharmacy #[id number], Partial fill upon patient request if the [...] Range]: 1 2 3 Height 178 cm (11/10/21 9:32 AM) 178 cm (11/09/21 1:37 PM) 178 cm (11/09/21 9:24 AM) Weight 77.5 kg (11/10/21 9:32 AM) 77.5 kg (11/09/21 1:37 PM) 77.5 kg (11/09/21 9:24 AM) Oxygen Saturation [94-100 %] 100 % (11/10/21 9:32 AM) 99 % (11/10/21 7:00 AM) 98 % (11/10/21 4:11 AM) Pulse Rate [55-90 bpm] 55 bpm (11/10/21 9:32 AM) 55 bpm (11/10/21 7:00 AM) 58 bpm (11/10/21 4:11 AM) Body Mass Index [18.5-24.99] 24.46 (11/10/21 9:32 AM) 24.46 (11/09/21 1:37 PM) 24.46 (11/09/21 9:24 AM) Blood Pressure [90-138/55-84 mm Hg] 141/75mm Hg *H* (11/10/21 9:32 AM) 133/60mm Hg (11/10/21 7:00 AM) 125/75mm Hg (11/10/21 4:11 AM) Respiratory Rate [16-30 br/min] 18 br/min (11/10/21 9:32 AM) 22 br/min (11/10/21 7:00 AM) 14 br/min *L* (11/10/21 4:11 AM) Temperature [96.8-100.4 DegF] 97.6 DegF (11/10/21 4:11 AM) 98.1 DegF (11/09/21 1:37 PM) 97.6 DegF (11/09/21 9:24 AM) Liters per Minute 0 L/min (11/09/21 1:37 PM) Mode of Delivery (Oxygen) Room air (11/10/21 9:32 AM) Room air (11/10/21 7:00 AM) Room air (11/10/21 4:11 AM) Blood pressure sites Arm, left (11/10/21 9:32 AM) Arm, left (11/09/21 9:14 PM) Arm, left (11/09/21 3:42 PM) Temperature Route Oral (11/10/21 4:11 AM) Oral (11/09/21 1:37 PM) Oral (11/09/21 9:24 AM) Dry Weight 77.5 kg (11/10/21 9:32 AM) 77.5 kg (11/09/21 1:37 PM) 77.5 kg (11/09/21 9:24 AM) Weight Obtained Via Patient/family state d (11/09/21 9:24 AM) Dry Weight Obtained Via Patient/family s tated (11/09/21 9:24 AM) Social History Social History Type Response Smoking Status Smoker, current stat us unknown; Type: Cigarettes; Other: 1/2-1 pk; entered on: 05/10/20 Sex
--- OUTSIDE RECORDS SUMMARY | 2023-04-11 15:24 | XMS_ITS | Continuity of Care Document ---
Author Name Unknown Organization [facility] Adult Address [address] [place] [address]- Care Team Providers Care Spice [employer] Name Role Phone Luiz SALAS, Sonya Primary Care Physician [phone] Encounter [facility] R [id number] Date(s): 07/23/22 - 07/30/22 [facility] Adult [address] [place] [address]- Attending Physician: Not on Staff, Attending MD [...] Not Given Patient Refuses 1Result Comment: [facility]: [id number] Medications Aspirin Low Dose 81 mg oral tablet, chewable 1 tablet, By Mouth, Daily, # 28 tablet, 12 Refills, [facility], 178, cm, 11/10/21 9:32:00 EDT, Height, 77.5, kg, 11/10/21 9:32:00 EDT, Dry Weight Start Date: 11/22/21 Status: Ordered atorvastatin 40 mg oral tablet 1 tablet, By Mouth, Daily at bedtime, # 90 tablet, 0 Refills, Maintenance, 05/10/22 9:49:00 EST, [facility], 178, cm, 03/14/22 15:25:00 EST, Height, 72.5, [...] 12:29:00 EST, Route to Pharmacy Electronically, [facility], 178, cm, 03/14/22 15:25:00 EST, Height, [...] 14:56:00 EST, Route to Pharmacy Electronically, [facility], 178, cm, 03/14/22 15:25:00 EST, Height, 72.5, [...] day, # 56 tablet, 5 Refills, Maintenance, 07/18/22 12:27:00 EDT, [facility], 178, cm, 03/14/22 15:25:00 EST, Height, 72.5, kg, 03/08/22 4:29:00 EST, Dry Weight Start Date: 07/18/22 Status: Ordered nicotine 21 mg/24 hr transdermal film, extended release 1 patch, Topically, Daily, # 30 patch, 0 Refills, Maintenance, 03/14/22 14:53:00 EST, Patch, [facility], Partial fill upon patient request if the prescription is for a schedule II opioid drug., 1 patch Topically Daily, 178, cm, 03/14/22... Start Date: 03/14/22 Status: Ordered pantoprazole 40 mg oral delayed release tablet 1 tablet, By Mouth, Daily, # 28 tablet, 5 Refills, Maintenance, 07/18/22 12:54:00 EDT, 178, cm, 03/14/22 15:25:00 EST, Height, 72.5, kg, 03/08/22 4:29:00 EST, Dry Weight Start Date: 07/18/22 Status: Ordered sertraline 25 mg oral tablet 1 tablet, By Mouth, Daily, # 28 tablet, 5 Refills, Maintenance, 04/11/22 14:56:00 EST, [facility], 178, cm, 03/14/22 15:25:00 EST, [...] 5 Refills, Maintenance, 04/11/22 14:56:00 EST, [facility], 178, cm, 03/14/22 15:25:00 EST, Height, 72.5, kg, 03/08/22 4:29:00 EST, Dry Weight Start Date: 04/11/22 Status: Ordered Vitamin D3 50,000 intl units oral capsule 1 capsule, By Mouth, Every week, # 12 capsule, 0 Refills, Maintenance, 05/10/22 9:49:00 EST, [facility], 178, cm, 03/14/22 15:25:00 EST, [...] Confirmed Active 1angioplasty 2000; 3 stents at [facility] 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 S/P Elective Coiling of Unruptured Aneurysm with Subsequent Left-Sided Weakness: Acute nonhemorrhagic infarct in the RIGHT posterior frontal lobe: Vital Signs Most recent to oldest [Reference Range]: 1 Height 178 cm (07/23/22 11:32 AM) Weight 81.2 kg (07/23/22 11:32 AM) Oxygen Saturation [94-100 %] 97 % (07/23/22 11:32 AM) Pulse Rate [55-90 bpm] 68 bpm (07/23/22 11:32 AM) Body Mass Index [18.5-24.99 kg/m2] 25.63 kg/m2 *H* (07/23/22 11:32 AM) Blood Pressure [90-138/55-84 mm Hg] 131/ 73mm Hg (07/23/22 11:32 AM) Respiratory Rate [16-30 br/min] 18 br/mi n (07/23/22 11:32 AM) Temperature [96.8-100.4 DegF] 98 DegF (07/23/22 11:32 AM) Mode of Delivery (Oxygen) Room air (07/23/22 11:32 AM) Blood pressure sites Arm, right (07/23/22 11:32 AM) Temperature Route Temporal (07/23/22 11:32 AM) Weight Obtained Via Standing scale (07/23/22 11:32 AM) Social History Social History Type Response [...] VERIFY Event Display: Patient Education/Instruction Authored Date: [id number] [employer] *[facility] Clinical Summary Name JOHN SHERMAN Age 66 Years 1955 PCP Sonya Dee NP PCP Visit Date 07/23/2022 11:18:00 Additional Instructions: Scheduled Appointments?? Future Appointments ?No Future Appointments Scheduled Follow-Up Instructions ?? Diagnosis Deficiency of other specified B group vitamins; Malignant neoplasm of prostate; Type 2 diabetes mellitus without complications; Atherosclerotic heart disease of [place] coronary artery without angina pectoris; Essential (primary) hypertension; Vitamin D deficiency, unspecified Medications: Please continue your medications until treatment is completed or stopped by your provider. Discuss any questions related to medications with your provider. Medications to Continue with No Changes These medications were not printed or sent to your pharmacy Ascorbic Acid (Vitamin C 500 mg oral tablet) 1 tab(s) Oral Daily. Refills: 5. Next Dose: Aspirin (Aspirin Low Dose 81 mg oral tablet, chewable) 1 tab(s) Oral Daily. Refills: 12. Next Dose: Atorvastatin (atorvastatin 40 mg oral tablet) 1 tab(s) Oral Daily at Bedtime for 90 Days. Refills: 0. Next Dose: Calcium Carbonate (calcium carbonate 500 mg (200 mg elemental calcium) oral tablet, chewable) 1 tab(s) Chew 3 times a day as needed as needed for dyspepsia. Next Dose: Cholecalciferol (Vitamin D3 50,000 intl units oral capsule) 1 capsule Oral every week. Refills: 0. Next Dose: Clopidogrel (clopidogrel 75 mg oral tablet) 1 tab(s) Oral Daily. Refills: 0. Next Dose: Cyanocobalamin (cyanocobalamin 1000 mcg oral tablet) 1 tab(s) Oral Daily. Next Dose: Durable Medical Equipment (large pull ups) DX: incontinence N39.46. Refills: 11. Next Dose: Folic Acid (folic acid 1 mg oral tablet) 1 tab(s) Oral Daily. Next Dose: Glimepiride (glimepiride 4 mg oral tablet) 1 tab(s) Oral twice a day. Refills: 0. Next Dose: Lisinopril (lisinopril 5 mg oral tablet) 1 tab(s) Oral Daily. Refills: 5. Next Dose: Magnesium Oxide (magnesium oxide 400 mg oral tablet) 1 tab(s) Oral Daily for 30 Days. Refills: 5. Next Dose: Metformin (metFORMIN 1000 mg oral tablet) 1 tab(s) Oral twice a day. Refills: 5. Next Dose: Nicotine (nicotine 21 mg/24 hr transdermal film, extended release) 1 patch(es) Topically Daily. Refills: 0. Next Dose: Pantoprazole (pantoprazole 40 mg oral delayed release tablet) 1 tab(s) Oral Daily. Refills: 5. Next Dose: Sertraline (sertraline 25 mg oral tablet) 1 tab(s) Oral Daily. Refills: 5. Next Dose: Thiamine (Vitamin B1 100 mg oral tablet) 1 tab(s) Oral Daily. Refills: 5. Next Dose: Allergy Info:?? Other Food Allergy; sulfa drugs; gabapentin; penicillin Medications Given This Visit Future Orders ?No future orders Vital Signs Height 178 cm Weight 81.2 kg BMI 25.63 kg/m2 Blood Pressure 131 mm Hg/73 mm Hg Temperature 98 DegF Pulse Rate 68 bpm Respiratory Rate 18 br/min 02 Sat Mode of Delivery 97 %/Room air You can now view a summary of your hospital visit from the comfort of your home through a free online portal called [employer]. [employer] is a website that allows you to securely view your medical information including discharge summary, medications and follow-up visits. ??You can alsosend a secure electronic message to your doctor???s office to request appointments, renew medications or just ask a question. You can enroll at [email or web address] or register during your next [...] primary care provider, you may find a [facility] provider by calling [facility] [employer] at [phone]. For information about the plan of care including goals and instructions for your diagnosis, please see the patient education orders section of this document. Patient Education Materials?? The content of this educational material or handout may have been modified, supplemented, or adapted from its original content and format to support your individualized medical care. Patient Care team information Care Team Personnel Name: Sagarkrupa Alicia Position: S RN Member Role: Primary Care Nurse Name: Hanna Dailey Position: [facility] RN Member Role: Primary Care Nurse Name: Gela Orosco RN Position: [facility] RN Member Role: Primary Care Nurse Name: Jessica Castrejon RN Position: [facility] RN Member Role: Primary Care Nurse Name: Hien Hidalgo RN Position: [facility] RN Member Role: Primary Care Nurse Name: Phuong Balderas RN Position: [facility] SN RN Member Role: Primary Care Nurse Name: Evelyn Mcnulty RN Position: [facility] RN Member Role: Primary Care Nurse Name: Sonya Dee NP Position: [facility] PCO Associate Professional Member Role: PCP Address: Address: [address] [place] [address], [address] Name: Pola Reid RN Position: [facility] RN Supv Member Role: Primary Care Nurse Name: Betzy Beckford RN Position: [facility] RN Member Role: Primary Care Nurse Name: Karley Perry LPN Position: [facility] AMB Nurse Member Role: Primary Care Nurse Name: Zully Jara Position: [facility] RN Member Role: Primary Care Nurse Name: Yunior Bui RN Position: [facility] RN Member Role: Primary Care Nurse Name: Candace Liang RN Position: [facility] RN Member Role: Primary Care Nurse Name: Dedra Lezama Position: [facility] RN Member Role: Primary Care Nurse Name: Pat Fernando RN Position: [facility] RN Member Role: Primary Care Nurse Name: Randa Sagastume RN Position: [facility] RN Member Role: Primary Care Nurse Name: Mitra Patel Position: [facility] RN Member Role: Primary Care Nurse Name: Kacie Campbell RN Position: [facility] RN Member Role: Primary Care Nurse Name: Charito Vazquez RN Position: [facility] SUNITHA RN W/OE and Tasks Member Role: Primary Care Nurse Name: Dylan Bond RN Position: [facility] RN Member Role: Primary Care Nurse Name: Lydia Doherty RN Position: [facility] RN Member Role: Primary Care Nurse Name: Elie Davis RN Position: [facility] RN Member Role: Primary Care Nurse Name: Delfina Still RN Position: [facility] RN Member Role: Primary Care Nurse Name: Chandni Gibbons RN Position: [facility] RN Member Role: Primary Care Nurse Name: Rosio Gibbons RN Position: [facility] RN Member Role: Primary Care Nurse Name: Viry Zacarias RN Position: [facility] RN Member Role: Primary Care Nurse Name: Kerri Cunha RN Position: [facility] Ripening Room Operator Member Role: Primary Care Nurse Name: Atiya Mcintyre RN Position: [facility] RN Member Role: Primary Care Nurse Care Team Related Persons Name: IBETH BRUNNER Address: home [address] [address] Name: IBETH CORRAL Address: home [address] [address]
--- OUTSIDE RECORDS SUMMARY | 2023-04-11 15:24 | XMS_ITS | Continuity of Care Document ---
Author Name Unknown Organization [facility] Adult Address [address] [place] [address]- Care Team Providers Care Casing Builder Name Role Phone Luiz SALAS, Sonya Primary Care Physician Encounter [facility] Date(s): 02/28/22 - 03/30/22 [facility] Adult [address] [place] [phone]- Allergies, Adverse Reactions, Alerts Substance Reaction Severity [...] Not Given Patient Refuses 1Result Comment: [place]: [id number] Medications Aspirin Low Dose 81 mg oral tablet, chewable 1 tablet, By Mouth, Daily, # 28 tablet, 12 Refills, [facility], 178, cm, 07/22/22 9:32:00 EDT, Height, 77.5, kg, 11/10/21 9:32:00 EDT, Dry Weight Start Date: 11/22/21 Status: Ordered atorvastatin 80 mg oral tablet 1 tablet = 80 mg, By Mouth, Daily at bedtime, # 30 tablet, 0 Refills, Maintenance, 03/14/22 14:51:00 EST, Tablet, [facility], Partial fill upon [...] 03/14/22 14:52:00 EST, Route to Pharmacy Electronically, [facility], Partial fill upon [...] 0 Refills, Maintenance, 03/14/22 14:53:00 EST, Patch, [facility], Partial fill upon [...] 1 Refills, Maintenance, 03/02/22 10:53:00 EST, Tablet, [facility], Partial fill upon patient [...] Confirmed Active 1angioplasty 2000; 3 stents at [facility] 2R frontal stroke secondary to [...] Care Nurse Name: Jessica Castrejon RN Position: [facility] RN Member Role: Primary Care Nurse Name: Hien Hidalgo RN Position: [facility] RN Member Role: Primary Care Nurse Name: Evelyn Mcnulty RN Position: [facility] RN Member Role: Primary Care Nurse Name: Sonya Dee NP Position: [facility] PCO Associate Professional Member Role: PCP Address: Address: [address] [place] [address], [address] Name: Pola Reid RN Position: [facility] RN Member Role: Primary Care Nurse Name: Betzy Beckford RN Position: [facility] RN Member Role: Primary Care Nurse Name: Karley Perry Position: [facility] RN Member Role: Primary Care Nurse Name: Zully Jara Position: [facility] RN Member Role: Primary Care Nurse Name: Yunior Bui RN Position: [facility] RN Member Role: Primary Care Nurse Name: Candace Liang RN Position: [facility] RN Member Role: Primary Care Nurse Name: Kassi Mars RN Position: [facility] RN [...] Care Nurse Name: Phuong Delgado RN Position: [facility] RN Member Role: Primary Care Nurse Name: Lydia Doherty RN Position: [facility] RN Member Role: Primary Care Nurse Name: Elie Davis RN Position: [facility] RN Member Role: Primary Care Nurse Name: Delfina Still RN Position: [facility] RN Member Role: Primary Care Nurse Name: Suzy Mccracken RN Position: [facility] RN Member Role: Primary Care Nurse Name: Chandni Gibbons RN Position: [facility] RN Member Role: Primary Care Nurse Name: Rosio Gibbons RN Position: [facility] RN Member Role: Primary Care Nurse Name: Viry Zacarias RN Position: [facility] RN Member Role: Primary Care Nurse Name: Kerri Cunha RN Position: [facility] Hospital Bench Machine Operator Member Role: Primary Care Nurse Name: Atiya Mcintyre RN Position: [facility] RN Member Role: Primary Care Nurse Care Team Related Persons Name: IBETH BRUNNER Address: home [address] [facility] [address] [place], [place] Name: IBETH CORRAL Address: home [address] [facility] [address] [place], [place]
--- OUTSIDE RECORDS SUMMARY | 2023-04-11 15:24 | XMS_ITS | Continuity of Care Document ---
Author Name Unknown Organization [facility] Adult Address [address] [place] [address]- Care Team Providers Care Beater Engineer Helper Name Role Phone Luiz SALAS, Sonya Primary Care Physician [place] [facility] [place] 09/07/21 - 10/07/21 [facility] Adult [address] [place] [phone]- Allergies, Adverse Reactions, Alerts Substance Reaction Severity [...] 5 Refills, Maintenance, 05/02/21 10:38:00 EST, Tablet, [facility]/pharmacy #[id number], Partial fill upon [...] Electronically, [id number], 178, cm, 05/11/21 8:52:00 EST, Height, 81, [...] tablet, By Mouth, 5 times a day, ELEPHANT TAMER checked. fill on 09/15/21 20 tabs go [...] Pharmacy Electronically, [facility]/pharmacy #[id number], Partial fill upon patient request if the [...] 11/07/20 Active 1angioplasty 2000; 3 stents at [facility] 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 [...]
--- OUTSIDE RECORDS SUMMARY | 2023-04-11 15:24 | XMS_ITS | Continuity of Care Document ---
Author Name Unknown Organization [facility] Adult Address [address] [place] [address]- Care Team Providers Care Middle School Band Teacher Name Role Phone Luiz SALAS, Sonya Primary Care Physician Encounter [facility] Date(s): 08/21/21 - 09/20/21 [facility] Adult [address] [place] [address]- Allergies, Adverse Reactions, Alerts Substance Reaction Severity [...] tablet, Refills 1, Route to Pharmacy Electronically, [facility], 178, cm, 05/11/21 8:52:00 EST, Height, 81, [...] tablet, By Mouth, 5 times a day, SHEEP STICKER checked. fill on 09/15/21 20 tabs go [...] 05/02/21 10:38:00 EST, Route to Pharmacy Electronically, [facility]/pharmacy #[id number], Partial fill upon patient [...]
--- OUTSIDE RECORDS SUMMARY | 2023-04-11 15:24 | XMS_ITS | Continuity of Care Document ---
Author Name Unknown Organization [facility] Adult Address [address] [place] [address]- Care Team Providers Care Life Skills Coordinator Name Role Phone Luiz SALAS, Sonya Primary Care Physician [place] [facility] [place] 07/28/21 - 08/27/21 [facility] Adult [address] [place] [phone]- Allergies, Adverse Reactions, Alerts Substance Reaction Severity [...] 11 Refills, Maintenance,05/02/21 10:36:00 EST, Capsule, [facility]/pharmacy #[id number], Partial fill upon patient request if the prescription is for a schedule II opioid drug., 178, cm, 0... Start Date: 05/02/21 Stop Date: 04/27/22 Status: Ordered clonazePAM 0.5 mg oral tablet 1 tablet = 0.5 mg, By Mouth, 3 times a day, # 90 tablet, 1 Refills, Maintenance, 07/25/21 17:16:00 EDT, Tablet, [facility]/pharmacy #[id number], Partial fill upon patient request if the prescription is for a schedule II opioid drug., 178, cm, 07/24/21 16:10:00 EDT... Start Date: 07/25/21 Stop Date: 09/23/21 Status: Ordered clopidogrel 75 mg oral tablet 1, tablet, By Mouth, Daily, # 90 tablet, Refills 1, Route to Pharmacy Electronically, [facility] [id number], 178, cm, 05/11/21 8:52:00 EST, Height, 81, kg, 05/06/21 2:22:00 EST, Dry Weight Start Date: 05/30/21 Status: Ordered glimepiride 4 mg oral tablet 1 tablet, By Mouth, 2 times a day, # 60 tablet, 5 Refills, Maintenance, 05/02/21 10:36:00 EST, [facility]/pharmacy #[id number], 178, cm, 04/27/21 4:54:00 EST, [...] 10:39:00 EDT, 05/02/21 10:39:00 EST, Tablet, [facility]acy #[id number], Partial fill upon patient request if the prescription is for a schedule II opioid drug., 178, cm,... Start Date: 05/02/21 Stop Date: 10/29/21 Status: Ordered metFORMIN 1000 mg oral tablet 1 tablet = 1,000 mg, By Mouth, 2 times a day, # 60 tablet, 5 Refills, Maintenance, 05/02/21 10:36:00 EST, Tablet, [facility]/pharmacy #[id number], Partial fill upon patient request, 178, cm, 04/27/21 4:54:00 EST,Height, 84.3, kg, 04/23/21 2:54:00 EST, Dry Weight Start Date: 05/02/21 Status: Ordered oxyCODONE 5 mg oral tablet 5 mg, 1, tablet, By Mouth, 5 times a day, SILK WEAVER checked., # 140 tablet, Refills 0, Tot. [...] 10:38:00 EST, Route to Pharmacy Electronically, [facility]/pharmacy #[id number], Partial fill upon patient request if the [...] 11/07/20 Active 1angioplasty 2000; 3 stents at [facility] 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 [...]
--- OUTSIDE RECORDS SUMMARY | 2023-04-11 15:24 | XMS_ITS | Continuity of Care Document ---
Author Name Unknown Organization [facility] Adult Address [address] [place] [address]- Care Team Providers Care Telegraphic Service Dispatcher Name Role Phone Luiz SALAS, Sonya Primary Care Physician [place] [facility] [place] 08/26/21 [facility] Adult [address] [place] [phone]- Allergies, Adverse Reactions, Alerts Substance Reaction Severity [...] 11 Refills, Maintenance,05/02/21 10:36:00 EST, Capsule, [facility]/pharmacy #[id number], Partial fill upon patient request if the prescription is for a schedule II opioid drug., 178, cm, 0... Start Date: 05/02/21 Stop Date: 04/27/22 Status: Ordered clonazePAM 0.5 mg oral tablet 1 tablet = 0.5 mg, By Mouth, 3 times a day, # 90 tablet, 1 Refills, Maintenance, 07/25/21 17:16:00 EDT, Tablet, [facility]/pharmacy #[id number], Partial fill upon patient request if the prescription is for a schedule II opioid drug., 178, cm, 07/24/21 16:10:00 EDT... Start Date: 07/25/21 Stop Date: 09/23/21 Status: Ordered clopidogrel 75 mg oral tablet 1, tablet, By Mouth, Daily, # 90 tablet, Refills 1, Route to Pharmacy Electronically, [facility] [id number], 178, cm, 05/11/21 8:52:00 EST, Height, 81, kg, 05/06/21 2:22:00 EST, Dry Weight Start Date: 05/30/21 Status: Ordered glimepiride 4 mg oral tablet 1 tablet, By Mouth, 2 times a day, # 60 tablet, 5 Refills, Maintenance, 05/02/21 10:36:00 EST, [facility]/pharmacy #[id number], 178, cm, 04/27/21 4:54:00 [...] 10:39:00 EDT, 05/02/21 10:39:00 EST, Tablet, [facility]/pharmacy #[id number], Partial fill upon patient request if the prescription is for a schedule II opioid drug., 178, cm,... Start Date: 05/02/21 Stop Date: 10/29/21 Status: Ordered metFORMIN 1000 mg oral tablet 1 tablet = 1,000 mg, By Mouth, 2 times a day, # 60 tablet, 5 Refills, Maintenance, 05/02/21 10:36:00 EST, Tablet, [facility]/pharmacy #[id number], Partial fill upon patient request, 178, cm, 04/27/21 4:54:00 EST,Height, 84.3, kg, 04/23/21 2:54:00 EST, Dry Weight Start Date: 05/02/21 Status: Ordered oxyCODONE 5 mg oral tablet 5 mg, 1, tablet, By Mouth, 5 times a day, CALCINER OPERATOR HELPER checked., # 140 tablet, Refills 0, Tot. 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
--- OUTSIDE RECORDS SUMMARY | 2023-04-11 15:24 | XMS_ITS | Continuity of Care Document ---
Author Name Unknown Organization [facility] Adult Address [address] [place] [address]- Care Team Providers Care Supervisor Fishing Name Role Phone Luiz SALAS, Sonya Primary Care Physician [phone] Encounter [facility] Date(s): 11/16/22 - 12/16/22 [facility] Adult [address] [place] [address]- Allergies, Adverse Reactions, Alerts Substance Reaction Severity [...] 23-valent vaccine 02/04/13 Recorded 1Result Comment: [facility]: [id number] Medications albuterol-ipratropium 3 mg-0.5 mg/3 ml inhalation [...] Confirmed Active 1angioplasty 2000; 3 stents at [facility] 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 [...] Team Personnel Name: Adelia Landry RN Position: [facility] RN Member Role: Primary Care Nurse Name: Alicia Negron Position: [facility] RN Member Role: Primary Care Nurse Name: Hanna Dailey Position: [facility] RN Member Role: Primary Care Nurse Name: Nereida Dobbins RN Position: [facility] RN Member Role: Primary Care Nurse Name: Gela Orosco RN Position: [facility] RN Member [...] Professional Member Role: PCP Address: Address: [address] [place] [address], 3rd Floor [place] [address]- Name: Siddhartha Andino RN Position: [facility] RN Member Role: Primary Care Nurse Name: Pola Reid RN Position: [facility] RN Supv Member Role: Primary Care Nurse Name: Betzy Beckford RN Position: [facility] RN Member Role: Primary Care Nurse Name: Gabriella Gonsales RN Position: [facility] RN Member Role: Primary Care Nurse Name: Zully Jara Position: [facility] RN Member Role: Primary Care Nurse Name: Yunior uBi RN Position: [facility] RN Member Role: Primary Care Nurse Name: Candace Liang RN Position: [facility] RN Member Role: Primary Care Nurse Name: Marci Padilla RN Position: [facility] RN Member Role: Primary Care Nurse Name: Florecita Ring RN Position: [facility] RN Member [...] Care Nurse Name: Kacie Campbell RN Position: [facility] RN Member Role: Primary Care Nurse Name: Tammy Castillo RN Position: [facility] RN Member Role: Primary Care Nurse Name: Charito Vazquez RN [facility] Cunha RN Position: [facility] Hospital Assistant Infant Toddler Teacher Member Role: Primary Care Nurse Name: Atiya Mcintyre RN Position: [facility] RN Member Role: Primary Care Nurse Care Team Related Persons Name: SHAYNA IBETH Address: home [address] [place] [address] [address] [place] [address]
--- OUTSIDE RECORDS SUMMARY | 2023-04-11 15:24 | XMS_ITS | Continuity of Care Document ---
Author Name Unknown Organization [facility] Adult Address [address] [place] [address]- Care Team Providers Care Fabric Designer Name Role Phone Luiz SALAS, Sonya Primary Care Physician [place] [facility] [place] 12/07/22 - 01/17/23 [facility] Adult [address] [place] [phone]- Attending Physician: Daniel Vasquez MD Referring Physician: Sonya Dee NP Allergies, [...] pneumococcal 23-valent vaccine 02/04/13 Recorded 1Result Comment: [facility]: [id number] Medications acetaminophen 325 mg oral tablet 650 [...] Confirmed Active 1angioplasty 2000; 3 stents at [facility] 2R frontal stroke secondary to [...] Care Nurse Name: Nereida Dobbins RN Position: [facility] RN Member Role: Primary Care Nurse Name: Gela Orosco RN Position: [facility] RN Member Role: Primary Care Nurse Name: Jessica Castrejon RN Position: [facility] RN Member Role: Primary Care Nurse Name: Hien Hidalgo RN Position: [facility] RN Member Role: Primary Care Nurse Name: Phuong Balderas RN Position: [facility] SN RN Member Role: Primary Care Nurse Name: Evelyn Mcnulty RN Position: [facility] RN Member Role: Primary Care Nurse Name: Yanely Shanks RN Position: [facility] RN Member Role: Primary Care Nurse Name: Sonya Dee NP Position: [facility] PCO Associate Professional Member Role: PCP Address: Address: [address] [place] [address], [address] [place] [address] Name: Siddhartha Andino RN Position: [facility] RN Member Role: Primary Care Nurse Name: Pola Reid RN Position: [facility] RN Supv Member Role: Primary Care Nurse Name: Betzy Beckford RN Position: [facility] RN Member Role: Primary Care Nurse Name: Susie Galicia RN Position: [facility] RN Member Role: Primary Care Nurse Name: Ezra Acuna RN Position: [facility] RN Member Role: Primary Care Nurse Name: Zully Jara Position: [facility] RN Member Role: Primary Care Nurse Name: Yunior Bui RN Position: [facility] RN Member Role: Primary Care Nurse Name: Candace Liang RN Position: [facility] RN Member Role: Primary Care Nurse Name: Marci Padilla RN Position: [facility] RN Member Role: Primary Care Nurse Name: Dedra Lezama Position: [facility] RN Member Role: Primary Care Nurse Name: Pat Fernando RN Position: [facility] RN Member Role: Primary Care Nurse Name: Marquita Siddiqui RN Position: [facility] RN Member Role: Primary Care Nurse Name: Lazara Krueger RN Position: [facility] RN Member Role: Primary Care Nurse Name: Randa Sagastume RN Position: [facility] RN Member Role: Primary Care Nurse Name: Mitra Patel Position: [facility] RN Member Role: Primary Care Nurse Name: Kacie Campbell RN Position: [facility] RN Member Role: Primary Care Nurse Name: Charito Vazquez RN Position: [facility] ED RN W/OE and Tasks Member Role: Primary Care Nurse Name: Dylan Bond RN Position: [facility] RN Member Role: Primary Care Nurse Name: Lydia Doherty RN Position: [facility] RN Member Role: Primary Care Nurse Name: Elie Davis RN Position: [facility] RN Member Role: Primary Care Nurse Name: Delfina Still RN Position: [facility] RN Member Role: Primary Care Nurse Name: Mary Wagner RN Position: [facility] RN Member Role: Primary Care Nurse Name: Chandni Gibbons RN Position: [facility] SN RN Member Role: Primary Care Nurse Name: Reanna Chow RN Position: [facility] RN Member Role: Primary Care Nurse Name: Brayden Elizabeth RN Position: [facility] RN Member Role: Primary Care Nurse Name: Viry Zacarias RN Position: [facility] RN Member Role: Primary Care Nurse Name: Kerri Cunha RN Position: [facility] Hospital Braider Operator Member Role: Primary Care Nurse Name: Atiya Mcintyre RN Position: [facility] RN Member Role: Primary Care Nurse Care Team Related Persons Name: IBETH CORRAL Address: home [address] [place] [address] [address] [address]
--- OUTSIDE RECORDS SUMMARY | 2023-04-11 15:24 | XMS_ITS | Continuity of Care Document ---
Author Name Unknown Organization [facility] Adult Address [address] [place] [address]- Care Team Providers Care Track Laying Machine Operator Name Role Phone Luiz SALAS, Sonya Primary Care Physician En[place] [facility] [place] Date(s): 12/02/20 - 01/01/21 [facility] Adult [address] [place] [address]- Allergies, Adverse Reactions, Alerts Substance Reaction Severity [...] capsule, 11 Refills, Maintenance,08/19/20 5:59:00 EDT, Capsule, [id number], Partial fill upon patient request if the prescription is for a schedule II opioid drug., 17... Start Date: 08/19/20 Stop Date: 08/14/21 Status: Ordered clonazePAM 0.5 mg oral tablet 1 tablet = 0.5 mg, By Mouth, 3 times a day, # 90 tablet, 1 Refills, Maintenance, 12/05/20 17:53:00 EDT, Tablet, [id number], Partial fill upon patient request if the prescription is for a schedule II opioid drug., 178, cm, 12/05/20 16:... Start Date: 12/05/20 Stop Date: 02/03/21 Status: Ordered glimepiride 4 mg oral tablet 1 tablet, By Mouth, 2 times a day, # 60 tablet, 2 Refills, Maintenance, 11/18/20 10:12:00 EDT, [facility][id number], 178, cm, 11/14/20 9:36:00 EDT, Height, 100, [...] Refills, Maintenance, 03/15/20 12:57:00 EST, Tablet, [facility], Partial fill upon patient request, 178, cm, 03/15/20 11:15:00 EST, Height, 105, kg, 03/12/20 6:12:00 EST, Dry W... Start Date: 03/15/20 Status: Ordered oxyCODONE 5 mg oral tablet 5 mg, 1, tablet, By Mouth, Every 4 hours, VOCATIONAL HORTICULTURE INSTRUCTOR checked., # 18 tablet, Refills 0, Tot. [...] 12:50:00 EDT, Route to Pharmacy Electronically, [facility], Partial fill upon patient [...]
--- OUTSIDE RECORDS SUMMARY | 2023-04-11 15:24 | XMS_ITS | Continuity of Care Document ---
Author Name Unknown Organization [facility] Adult Address [address] [place] [address]- Care Team Providers Care Crown Perforator Operator Name Role Phone Luiz SALAS, Sonya Primary Care Physician [phone] Encounter [facility] Date(s): 02/10/21 - 03/12/21 [facility] Adult [address] [place] [address]- Allergies, Adverse Reactions, Alerts Substance Reaction Severity [...] Refills, Maintenance, 01/16/21 10:30:00 EDT, Tablet, [id number], Partial fill upon patient request if the [...] capsule, 11 Refills, Maintenance,01/16/21 10:26:00 EDT, Capsule, [facility]/pharmacy #[id number], Partial fill upon patient request if the prescription is for a schedule II opioid drug., 178, cm, 0... Start Date: 01/16/21 Stop Date: 01/11/22 Status: Ordered clonazePAM 0.5 mg oral tablet 1 tablet = 0.5 mg, By Mouth, 3 times a day, # 90 tablet, 1 Refills, Maintenance, 01/16/21 10:52:00 EDT, Tablet, [facility]/pharmacy #[id number], Partial fill upon patient request if the prescription is for a schedule II opioid drug., 178, cm, 12/29/20 5:31:00 EDT,... Start Date: 01/16/21 Stop Date: 03/17/21 Status: Ordered glimepiride 4 mg oral tablet 1 tablet, By Mouth, 2 times a day, # 60 tablet, 2 Refills, Maintenance, 01/16/21 10:26:00 EDT, [facility]/pharmacy #[id number], 178, cm, 12/29/20 5:31:00 EDT, Height, 100, kg, 12/26/20 16:53:00 EDT, Dry Weight Start Date: 01/16/21 Status: Ordered lactulose 10 gm/15 ml oral syrup 15 mL, By Mouth, Daily, PRN NEEDED FOR CONSTIPATION, # 473 mL, 0 Refills, [facility] [id number], 30, TAKE 15 ML BY MOUTH DAILY NEEDED FOR CONSTIPATION, 178, cm, 02/03/21 12:52:00 EDT, Height, 100, kg, 12/26/20 16:53:00 EDT, Dry Weight Start Date: 03/01/21 Status: Ordered lisinopril 10 mg oral tablet 10 mg, 1, tablet, By Mouth, Daily, # 30 tablet, Refills 5, Tot. Refills 5, Maintenance, 01/16/21 10:29:00 EDT, Route to Pharmacy Electronically, [facility]/pharmacy #[id number], Partial fill upon patient [...] 03/15/20 12:57:00 EST, Tablet, [facility], Partial fill upon patient request, 178, cm, 03/15/20 11:15:00 EST, Height, 105, kg, 03/12/20 6:12:00 EST, Dry W... Start Date: 03/15/20 Status: Ordered oxyCODONE 5 mg oral tablet 5 mg, 1, tablet, By Mouth, 5 times a day, SUPERVISOR EXTRUDING DEPARTMENT checked., # 140 tablet, Refills 0, Tot. Refills 0, Maintenance, 02/24/21 15:51:00 EDT, Route to Pharmacy Electronically, [facility]/pharmacy #[id number], Partial fillupon patient request [...]
--- OUTSIDE RECORDS SUMMARY | 2023-04-11 15:24 | XMS_ITS | Continuity of Care Document ---
Author Name Unknown Organization [facility] Adult Address [address] [place] [address]- Care Team Providers Care Machine Edge Bander Name Role Phone Luiz SALAS, Sonya Primary Care Physician [phone] Encounter [facility] Date(s): 02/26/22 - 03/28/22 [facility] Adult [address] [place] [id number]- Allergies, Adverse Reactions, Alerts Substance Reaction Severity [...] Not Given Patient Refuses 1Result Comment: [place]: [id number] Medications Aspirin Low Dose 81 mg oral [...] 0 Refills, Maintenance, 03/14/22 14:51:00 EST, Tablet, [facility], Partial fill upon patient [...] 03/14/22 14:52:00 EST, Route to Pharmacy Electronically, [facility], Partial fill upon patient [...] 0 Refills, Maintenance, 03/14/22 14:53:00 EST, Patch, [facility], Partial fill upon patient [...] Confirmed Active 1angioplasty 2000; 3 stents at [facility] [...] Dailey Position: [facility] RN Member Role: Primary Care Nurse Name: Gela Orosco RN Position: S RN Member Role: Primary Care Nurse Name: Jessica Castrejon RN Position: [facility] RN Member Role: Primary Care Nurse Name: iHen Hidalgo RN Position: [facility] RN Member Role: Primary Care Nurse Name: Evelyn Mcnulty RN Position: [facility] RN Member Role: Primary Care Nurse Name: Sonya Dee NP Position: [facility] PCO Associate Professional Member Role: PCP Address: Address: [address] [place] [address], [address] Name: Pola Reid RN Position: [facility] RN Member Role: Primary Care Nurse Name: Betzy Beckford RN Position: [facility] RN Member Role: Primary Care Nurse Name: Karley Perry Position: [facility] RN Member Role: Primary Care Nurse Name: Zully Jara Position: [facility] RN Member Role: Primary Care Nurse Name: Yunior Bui RN Position: [facility] RN Member Role: Primary Care Nurse Name: Candace Liang RN Position: [facility] RN Member Role: Primary Care Nurse Name: Kassi Mars RN Position: [facility] RN Member Role: Primary Care Nurse Name: Dedra Lezama Position: [facility] RN Member Role: Primary Care Nurse Name: Pat Fernando RN Position: [facility] RN Member Role: Primary Care Nurse Name: Randa Sagastume RN Position: [facility] RN Member Role: Primary Care Nurse Name: Liborio Palomares RN Position: S RN Member Role: Primary Care Nurse Name: Yulia Veliz RN Position: S RN Member Role: Primary Care Nurse Name: Mitra Patel Position: [facility] RN Member Role: Primary Care Nurse Name: Kacie Campbell RN Position: [facility] RN Member Role: Primary Care Nurse Name: Charito Vazquez RN Position: [facility] ED RN W/OE and Tasks Member Role: Primary Care Nurse Name: Dylan Bond RN Position: [facility] RN Member Role: Primary Care Nurse Name: Phuong Delgado RN Position: [facility] RN Member Role: Primary Care Nurse Name: Lydia Doherty RN Position: [facility] RN Member Role: Primary Care Nurse Name: Elie Davis RN Position: [facility] RN Member Role: Primary Care Nurse Name: Delfina Still RN Position: [facility] RN Member Role: Primary Care Nurse Name: Suzy Mccracken RN Position: [facility] RN Member Role: Primary Care Nurse Name: Chandni Gibbons RN Position: [facility] RN Member Role: Primary Care Nurse Name: Rosio Gibbons RN Position: [facility] RN Member Role: Primary Care Nurse Name: Viry Zacarias RN Position: [facility] RN Member Role: Primary Care Nurse Name: Kerri Cunha RN Position: [facility] Hospital Rn Telehealth Member Role: Primary Care Nurse Name: Atiya Mcintyre RN Position: [facility] RN Member Role: Primary Care Nurse Care Team Related Persons Name: IBETH BRUNNER Address: home [address] [place], [place] Name: IBETH CORRAL Address: home [address] [place], [place]
--- OUTSIDE RECORDS SUMMARY | 2023-04-11 15:24 | XMS_ITS | Continuity of Care Document ---
Author Name Unknown Organization [facility] Address [address] [facility], [address] Floor, [address] [place] [address]- Care Team Providers Care Government Services Professional Name Role Phone Luiz SALAS, Sonya Primary Care Physician [facility]counter [facility] Date(s): 05/28/22 - 06/27/22 [facility] [address] [place] [address], 3rd Floor, [address] [place] [phone]- Attending Physician: Jacobo Hill Admitting Physician: Admtr, Ar8 Referring Physician: Admtr, [...] 05/26/20 Not Given Patient Refuses 1Result Comment: [facility]: [id number] Medications Aspirin Low Dose 81 mg oral tablet, chewable 1 tablet, By Mouth, Daily, # 28 tablet, 12 Refills, [facility], 178, cm, 11/10/21 9:32:00 EDT, Height, 77.5, kg, 11/10/21 9:32:00 EDT, Dry Weight Start Date: 11/22/21 Status: Ordered atorvastatin 40 mg oral tablet 1 tablet, By Mouth, Daily at bedtime, # 90 tablet, 0 Refills, Maintenance, 05/10/22 9:49:00 EST, [facility] [place] [id number], 178, cm, 03/14/22 15:25:00 EST, Height, 72.5, [...] 05/10/22 12:29:00 EST, Route to Pharmacy Electronically, [facility], 178, cm, 03/14/22 15:25:00 EST, Height, 72.5, [...] 0 Refills, Maintenance, 05/10/22 9:49:00 EST, [facility], 178, cm, 03/14/22 15:25:00 EST, Height, 72.5, [...] 14:56:00 EST, Route to Pharmacy Electronically, [facility], 178, cm, 03/14/22 15:25:00 EST, Height, 72.5, kg, 03/08/22 4:29:00 EST, Dry Weight Start Date: 04/11/22 Status: Ordered magnesium oxide 400 mg oral tablet 1 tablet, By Mouth, Daily, # 28 tablet, 5 Refills, Maintenance, 01/17/22 14:43:00 EDT, [facility], 177, cm, 01/17/22 7:37:00 EDT, Height, 75, kg, 01/11/22 12:33:00 EDT, Dry Weight Start Date: 01/17/22 Status: Ordered metFORMIN 1000 mg oral tablet 1 tablet, By Mouth, 2 times a day, # 56 tablet, 5 Refills, Maintenance, 01/17/22 14:43:00 EDT, [facility], 177, cm, 01/17/22 7:37:00 EDT, Height, 75, kg, 01/11/22 12:33:00 EDT, Dry Weight Start Date: 01/17/22 Status: Ordered nicotine 21 mg/24 hr transdermal film, extended release 1 patch, Topically, Daily, # 30 patch, 0 Refills, Maintenance, 03/14/22 14:53:00 EST, Patch, [facility], Partial fill upon patient [...] Confirmed Active 1angioplasty 2000; 3 stents at [facility] 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 [...] Care Team Personnel Name: Alicia Negron Position: [facility] RN Member Role: Primary Care Nurse Name: Ewa Everett RN Position: [facility] RN Member Role: Primary Care Nurse Name: Hanna Dailey Position: [facility] RN Member Role: Primary Care Nurse Name: Gela Orosco RN Position: [facility] RN Member Role: Primary Care Nurse Name: Jessica Castrejon RN Position: [facility] RN Member Role: Primary Care Nurse Name: Hien Hidalgo RN Position: [facility] RN Member Role: Primary Care Nurse Name: Evelyn Mcnulty RN Position: [facility] RN Member Role: Primary Care Nurse Name: Sonya Dee NP Position: [facility] PCO Associate Professional Member Role: PCP Address: Address: [address] [place] [address], [address] [place] [address]- Name: Pola Reid RN Position: [facility] RN Supv Member Role: Primary Care Nurse Name: Betzy Beckford RN Position: [facility] RN Member Role: Primary Care Nurse Name: Karley Perry LPN Position: [facility] AMB Nurse Member Role: Primary Care Nurse Name: Zully Jara Position: [facility] RN Member Role: Primary Care Nurse Name: Yunior Bui RN Position: [facility] RN Member Role: Primary Care Nurse Name: Candace Liang RN Position: [facility] RN Member Role: Primary Care Nurse Name: Dedra Lezama Position: [facility] RN Member Role: Primary Care Nurse Name: Pat Fernando RN Position: [facility] RN Member Role: Primary Care Nurse Name: Randa Sagastume RN Position: [facility] RN Member Role: Primary Care Nurse Name: Mitra Patel Position: [facility] RN Member Role: Primary Care Nurse Name: Kacie Campbell RN Position: [facility] RN Member Role: Primary Care Nurse Name: Charito Vazquez RN Position: [facility] ED RN W/OE and Tasks Member Role: Primary Care Nurse Name: Dylan Bond RN Position: [facility] RN Member Role: Primary Care Nurse Name: Phuong Delgado RN Position: [facility] RN Member Role: Primary Care Nurse Name: Elie Davis RN Position: [facility] RN Member Role: Primary Care Nurse Name: Delfina Still RN Position: [facility] RN Member Role: Primary Care Nurse Name: Chandni Gibbons RN Position: [facility] RN Member Role: Primary Care Nurse Name: Rosio Gibbons RN Position: [facility] RN Member Role: Primary Care Nurse Name: Viry Zacarias RN Position: [facility] RN Member Role: Primary Care Nurse Name: Kerri Cunha RN Position: [facility] Procedures Tech Member Role: Primary Care Nurse Name: Atiya Mcintyre RN Position: [facility] RN Member Role: Primary Care Nurse Care Team Related Persons Name: SANJAY BRUNNERN Address: home [address] [place] [address] Name: SANJAY CORRALN Address: home [address] [place] [address]
--- OUTSIDE RECORDS SUMMARY | 2023-04-11 15:24 | XMS_ITS | Continuity of Care Document ---
Author Name Unknown Organization [facility] Address Unknown Care Team Providers Care Analytics Developer Name Role Phone Luiz SALAS, Sonya Primary Care Physician Encounter [facility] Date(s): 11/21/20 - 12/21/20 [facility] Attending Physician: Jacobo Hill Admitting Physician: Jacobo Hill Referring Physician: AdmJacobo lopez Allergies, Adverse Reactions, [...] capsule, 11 Refills, Maintenance,08/19/20 5:59:00 EDT, Capsule, [id number], Partial fill upon patient request if the [...] 1 Refills, Maintenance, 12/05/20 17:53:00 EDT, Tablet, [facility][id number], Partial fill upon patient request if the [...] tablet, 2 Refills, Maintenance, 11/18/20 10:12:00 EDT, [facility][id number], 178, cm, 11/14/20 9:36:00 EDT, Height, 100, [...] 0 Refills, Maintenance, 03/15/20 12:57:00 EST, Tablet, [facility], Partial fill upon patient request, 178, cm, 03/15/20 11:15:00 EST, Height, 105, kg, 03/12/20 6:12:00 EST, Dry W... Start Date: 03/15/20 Status: Ordered oxyCODONE 5 mg oral tablet 5 mg, 1, tablet, By Mouth, 5 times a day, AIRCRAFT MECHANIC STRUCTURES checked., # 140 tablet, Refills 0, Tot. Refills 0, Maintenance, 12/05/20 17:51:00 EDT, Route to Pharmacy Electronically, [id number], Partial fill upon patient request if the [...] 11/07/20 Active 1angioplasty 2000; 3 stents at [facility] [...]
--- OUTSIDE RECORDS SUMMARY | 2023-04-11 15:24 | XMS_ITS | Continuity of Care Document ---
Author Name Unknown Organization [facility] Adult Address [address] [place] [address]- Care Team Providers Care Central Aisle Cashier Name Role Phone Luiz SALAS, Sonya Primary Care Physician [phone] Encounter [facility] Date(s): 08/09/20 - 09/08/20 [facility] [address] [place] [address]- Allergies, Adverse Reactions, Alerts Substance Reaction Severity [...] capsule, 11 Refills, Maintenance,08/19/20 5:59:00 EDT, Capsule, [id number], Partial fill upon patient request if the [...] daily, 06/14/20 9:41:00 EST, Supply, 177.8, cm, 02/23/21 9:36:00 EST, Height, 104.5, kg, 05/25/20 17:45:00 EST, Dry Weight Start Date: 06/14/20 Status: Ordered glimepiride 4 mg oral tablet 1 tablet = 4 mg, By Mouth, 2 times a day, # 60 tablet, 2 Refills, Maintenance, 10/07/20 11:44:00 EDT, Tablet, [facility][id number], Partial fill upon patient request if the prescription is fora schedule II opioid drug., 177.8, cm, 08/08/20 11:... Start Date: 10/07/20 Stop Date: 01/05/21 Status: Ordered lisinopril 20 mg oral tablet 20 mg, 1, tablet, By Mouth, Daily, # 90 tablet, Refills 1, Tot. Refills 1, Maintenance, 08/19/20 10:00:00 EDT, Route to Pharmacy Electronically, [facility][id number], Partial fill upon patientrequest if the prescription is for a schedule II op... Start Date: 08/19/20 Stop Date: 02/15/21 Status: Ordered metFORMIN 1000 mg oral tablet 1 tablet = 1,000 mg, By Mouth, 2 times a day, # 60 tablet, 0 Refills, Maintenance, 03/15/20 12:57:00 EST, Tablet, [facility], Partial fill upon patient request, 178, cm, 03/15/20 11:15:00 EST, Height, 105, kg, 03/12/20 6:12:00 EST, Dry W... Start Date: 03/15/20 Status: Ordered ofloxacin 0.3% otic solution See Instructions, 5 drops Right ear once daily x 7 days, # 10 mL, Refills 0, Tot. Refills 0, Maintenance, 03/15/20 14:25:00 EST, Instructions Replace Required Details, Route to Pharmacy Electronically, [facility], Partial fill upon patie... Start Date: 03/15/20 Status: Ordered oxyCODONE 5 mg oral tablet 5 mg, 1, tablet, By Mouth, 5 times a day, AUTOMOTIVE UPHOLSTERER checked., # 140 tablet, Refills 0, Tot. Refills 0, Maintenance, 09/05/20 14:37:00 EDT, Route to Pharmacy Electronically, [facility][id number], Partial fill upon patient request if the prescription i... Start Date: 09/05/20 Status: Ordered Probiotic Formula (Bacillus Coagulans) oral capsule 1 capsule, By Mouth, Daily, # 10 capsule, 0 Refills, Maintenance, 04/14/20 11:39:00 EST, Capsule, [facility][id number], Partial fill upon patient request if the prescription is for a schedule II opioid drug., 1 capsule By Mouth Daily, 178, cm,... Start Date: 04/14/20 Status: Ordered simvastatin 40 mg oral tablet 40 mg, 1, tablet, By Mouth, Daily at bedtime, # 30 tablet, Refills 5, Tot. Refills 5, Maintenance, 08/19/20 5:58:00 EDT, Route to Pharmacy Electronically, [facility] #[id number], Partial fill upon patient request, 177.8, cm, 08/08/20 11:27:00 EDT... Start Date: 08/19/20 Stop Date: 02/15/21 Status: Ordered Problem List Condition Effective Dates Status Health Status Inform ant Benign hypertension(Confirmed) Active CAD (coronary artery disease)(Confirmed) 1 Active Chronic lower back pain(Confirmed) Active Diabetes mellitus(Confirmed) Active Encephalopathy(Confirmed) Active Dyslipidemia(Confirmed) Active 1angioplasty 2000; 3 stents at [facility] Social History Social History Type Response Smoking Status Smoker, current stat us unknown; Type: Cigarettes; Other: 1/2-1 pk; entered on: 05/10/20 Sex
--- OUTSIDE RECORDS SUMMARY | 2023-04-11 15:24 | XMS_ITS | Continuity of Care Document ---
Author Name Unknown Organization [facility] Adult Address [address] [place] [address]- Care Team Providers Care Discovery Guide Name Role Phone Luiz SALAS, Sonya Primary Care Physician [phone] Encounter [facility] Date(s): 02/09/21 - 03/11/21 [facility] [address] [place] [address]- Allergies, Adverse Reactions, Alerts Substance Reaction Severity [...] Refills, Maintenance, 01/16/21 10:30:00 EDT, Tablet, [id number], Partial fill upon patient request if the [...] tablet, 2 Refills, Maintenance, 01/16/21 10:26:00 EDT, [facility][id number], 178, cm, 12/29/20 5:31:00 EDT, Height, 100, kg, 12/26/20 16:53:00 EDT, Dry Weight Start Date: 01/16/21 Status: Ordered lactulose 10 gm/15 ml oral syrup 15 mL, By Mouth, Daily, PRN NEEDED FOR CONSTIPATION, # 473 mL, 0 Refills, [id number], 30, TAKE 15 ML BY MOUTH DAILY [...] 0 Refills, Maintenance, 03/15/20 12:57:00 EST, Tablet, [facility], Partial fill upon patient request, 178, cm, 03/15/20 11:15:00 EST, Height, 105, kg, 03/12/20 6:12:00 EST, Dry W... Start Date: 03/15/20 Status: Ordered oxyCODONE 5 mg oral tablet 5 mg, 1, tablet, By Mouth, 5 times a day, INSIGHT LEADER checked., # 140 tablet, Refills 0, Tot. Refills 0, Maintenance, 02/24/21 15:51:00 EDT, Route [facility] Pharmacy Electronically, [facility] [...] 12/28/20 12:50:00 EDT, Route to Pharmacy Electronically, [facility], Partial fill upon patient [...] Active 1angioplasty 2000; [address] [facility] 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 [...]
--- OUTSIDE RECORDS SUMMARY | 2023-04-11 15:24 | XMS_ITS | Continuity of Care Document ---
Author Name Unknown Organization [facility] Address [address] [place] [address]- Care Team Providers Care Sander Portable Machine Name Role Phone Luiz SALAS, Sonya Primary Care Physician [facility]counter [facility] Date(s): 08/14/21 - 09/13/21 [facility] [address] [place] [address]- Allergies, Adverse Reactions, Alerts Substance Reaction Severity [...] 1 Refills, Maintenance, 09/13/21 15:41:00 EDT, Tablet, [facility], Partial fill upon patient request if the prescription is for a schedule II opioid drug.,... Start Date: 09/13/21 Stop Date: 11/08/21 Status: Ordered clopidogrel 75 mg oral tablet 1, tablet, By Mouth, Daily, # 90 tablet, Refills 1, Route to Pharmacy Electronically, [id number], 178, cm, 05/11/21 8:52:00 EST, Height, 81, [...] tablet, By Mouth, 5 times a day, LEADERSHIP INTERN checked., # 140 tablet, Refills 0, Tot. [...] 05/02/21 10:38:00 EST, Route to Pharmacy Electronically, [facility][id number], Partial fill upon patient request if [...] 11/07/20 Active 1angioplasty 2000; 3 stents at [facility] 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 [...]
--- OUTSIDE RECORDS SUMMARY | 2023-04-11 15:24 | XMS_ITS | Continuity of Care Document ---
Author Name Unknown Organization [facility] Address [address] [place] [address]- Care Team Providers Care Tapping Machine Operator Name Role Phone Luiz YEAST STACKER, Sonya Primary Care Physician [phone] Encounter [facility] Date(s): 11/19/22 - 12/19/22 [facility] [address] [place] [address]- Allergies, Adverse Reactions, Alerts Substance Reaction Severity [...] pneumococcal 23-valent vaccine 02/04/13 Recorded 1Result Comment: [facility]: [id number] Medications albuterol-ipratropium 3 mg-0.5 mg/3 ml inhalation [...] Confirmed Active 1angioplasty 2000; 3 stents at [facility] 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 [...] Team Personnel Name: Adelia Landry RN Position: [facility] RN Member Role: Primary Care [...] Care Nurse Name: Hien Hidalgo RN Position: [facility] RN Member Role: Primary Care Nurse Name: Phuong Balderas RN Position: [facility] SN RN Member Role: Primary Care Nurse Name: Evelyn Mcnulty RN Position: [facility] RN Member Role: Primary Care Nurse Name: Yanely Shanks RN Position: [facility] RN Member Role: Primary Care Nurse Name: Sonya Dee NP Position: [facility] PCO Associate Professional Member Role: PCP Address: Address: [address] [place] [address], 3rd [place] [address]- Name: Siddhartha Andino RN Position: [facility] RN Member Role: Primary Care Nurse Name: Pola Reid RN Position: [facility] RN Supv Member Role: Primary Care Nurse Name: Betzy Beckford RN Position: [facility] RN Member Role: Primary Care Nurse Name: Ezra Acuna RN Position: [facility] RN Member Role: Primary Care Nurse Name: Gabriella Gonsales RN Position: [facility] RN Member Role: Primary Care Nurse Name: Zully Jara Position: [facility] RN Member Role: Primary Care Nurse Name: Yunior Bui RN Position: [facility] RN Member Role: Primary Care Nurse Name: Candace Liang RN Position: [facility] RN Member Role: Primary Care Nurse Name: Marci Padilla RN Position: [facility] RN Member Role: Primary Care Nurse Name: Florecita Ring RN Position: [facility] RN Member Role: Primary Care Nurse Name: Dedra Lezama Position: [facility] RN Member Role: Primary Care Nurse Name: Pat Fernando RN Position: [facility] RN Member Role: Primary Care Nurse Name: Randa Sagastume RN Position: [facility] RN Member Role: Primary Care Nurse Name: Mitra Patel Position: [facility] RN Member Role: Primary Care Nurse Name: Kacie Campbell RN Position: [facility] RN Member Role: Primary Care Nurse Name: Charito Vazquez RN Position: [facility] SUNITHA RN W/OE and Tasks Member Role: Primary Care Nurse Name: Dylan Bond RN Position: [facility] RN Member Role: Primary Care Nurse Name: Lydia Doherty RN Position: [facility] RN Member Role: Primary Care Nurse Name: Elie Davis RN Position: [facility] RN Member Role: Primary Care Nurse Name: Delfina Still RN Position: [facility] RN Member Role: Primary Care Nurse Name: Mary Wagner RN Position: [facility] RN Member Role: Primary Care Nurse Name: Chandni Gibbons RN Position: [facility] SN RN Member Role: Primary Care Nurse Name: Brayden Elizabeth RN Position: [facility] RN Member Role: Primary Care Nurse Name: Viry Zacarias RN Position: [facility] RN Member Role: Primary Care Nurse Name: Kerri Cunha RN Position: [facility] Swimming Pool Installer Member Role: Primary Care Nurse Name: Atiya Mcintyre RN Position: [facility] RN Member Role: Primary Care Nurse Care Team Related Persons Name: IBETH CORRAL Address: home [address] [place] [address] [place] [address]
--- OUTSIDE RECORDS SUMMARY | 2023-04-11 15:24 | XMS_ITS | Continuity of Care Document ---
Author Name Unknown Organization [facility] Adult Address [address] [place] [address]- Care Team Providers Care Manager Enrollment Name Role Phone Luiz SALAS, Sonya Primary Care Physician Encounter [facility] Date(s): 11/23/22 - 11/30/22 [facility] [address] [place] [phone]- Encounter Diagnosis Chest pain(Discharge Diagnosis) - 11/23/22 Attending Physician: Lucita SALAS, Florecita Nolasco Allergies, [...] 05/26/20 Not Given Patient Refuses 1Result Comment: [facility]: [id number] Medications albuterol-ipratropium 3 mg-0.5 mg/3 ml inhalation [...] EDT, . Start Date: 11/23/22 Status: Ordered glimepiride 4 [...] Confirmed Active 1angioplasty 2000; 3 stents at 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 S/P Elective Coiling of Unruptured Aneurysm with Subsequent Left-Sided Weakness: Acute nonhemorrhagic infarct in the RIGHT posterior frontal lobe: Diagnosis Diagnosis Type Effective Dates Health Status Clini juwan Service Informant Chest pain Discharge Diagnosis 11/23/22 Vital Signs Most recent to oldest [Reference Range]: 1 Height 178 cm (11/23/22 11:46 AM) Weight 74.3 kg (11/23/22 11:46 AM) Oxygen Saturation [94-100 %] 98 % (11/23/22 11:46 AM) Pulse Rate [55-90 bpm] 78 bpm (11/23/22 11:46 AM) Body Mass Index [18.5-24.99 kg/m2] 23.45 kg/m2 (11/23/22 11:46 AM) Blood Pressure [90-138/55-84 mm Hg] 107/ 66mm Hg (11/23/22 11:46 AM) Respiratory Rate [16-30 br/min] 18 br/mi n (11/23/22 11:46 AM) Temperature [96.8-100.4 DegF] 97.6 DegF (11/23/22 11:46 AM) Mode of Delivery (Oxygen) Room air (11/23/22 11:46 AM) Blood pressure sites Arm, right (11/23/22 11:46 AM) Temperature Route Oral (11/23/22 11:46 AM) Weight Obtained Via Standing scale (11/23/22 11:46 AM) Social History Social History Type Response [...] VERIFY Event Display: Patient Education/Instruction Authored Date: [id number] [facility] *[facility] Clinical Summary Name JOHN SHERMAN Age 67 Years 1955 PCP Luiz SALAS, Sonya PCP Visit Date 11/23/2022 11:32:00 Additional Instructions: Scheduled Appointments?? Future Appointments ?No Future Appointments Scheduled Follow-Up Instructions ?? Diagnosis Chest pain, unspecified; Type 2 diabetes mellitus without complications Medications: Please continue your medications until treatment is completed or stopped by your provider. Discuss any questions related to medications with your provider. New Medications [facility], [address] [place] [phone], [phone] Durable Medical Equipment (Freestyle Lite Lancets) Use to check blood sugar three times a day DX: Diabetes Mellitus E11.9. Refills: 11. Next Dose: Durable Medical Equipment (Freestyle Lite Monitor) Use to check blood sugar three times a day DX: Diabetes Mellitus E11.9. Refills: 0. Next Dose: Durable Medical Equipment (Freestyle Lite Test Strips) Use to check blood sugar three times a day DX: Diabetes Mellitus E11.9. Refills: 11. Next Dose: Medications to Continue with No Changes These medications were not printed or sent to your pharmacy Albuterol/Ipratropium (albuterol-ipratropium 3 mg-0.5 mg/3 ml inhalation solution) BAND Nebulizer every 4 hours as needed Wheezing/Shortness of Breath. Next Dose: Ascorbic Acid (Vitamin C 500 mg oral tablet) 1 tab(s) Oral Daily. Refills: 0. Next Dose: Aspirin (Aspirin Low Dose 81 mg oral tablet, chewable) 1 tab(s) Oral Daily. Refills: 1. Next Dose: Atorvastatin (atorvastatin 40 mg oral tablet) 1 tab(s) Oral Daily at Bedtime. Refills: 5. Next Dose: Calcium Carbonate (calcium carbonate 500 mg (200 mg elemental calcium) oral tablet, chewable) 1 tab(s) Chew 3 times a day as needed as needed for dyspepsia. Next Dose: Cholecalciferol (Vitamin D3 50,000 intl units oral capsule) 1 capsule Oral every week. Refills: 0. Next Dose: Clopidogrel (clopidogrel 75 mg oral tablet) 1 tab(s) Oral Daily. Refills: 0. Next Dose: Docusate-Senna (Docusate/Senna Tablet) 1 tab(s) Oral twice a day. Next Dose: Durable Medical Equipment (depends xl) DX: incontinence N39.46. Refills: 11. Next Dose: Durable Medical Equipment (large pull ups) DX: incontinence N39.46. Refills: 11. Next Dose: Glimepiride (glimepiride 4 mg oral tablet) 1 tab(s) Oral twice a day. Refills: 0. Next Dose: Lisinopril (lisinopril 5 mg oral tablet) 1 tab(s) Oral Daily. Refills: 1. Next Dose: Magnesium Oxide (magnesium oxide 400 mg oral tablet) 1 tab(s) Oral Daily for 30 Days. Refills: 5. Next Dose: Melatonin (melatonin 3 mg oral tablet) 3 Milligram Oral Daily at Bedtime as needed Insomnia. Next Dose: Metformin (metFORMIN 1000 mg oral tablet) 1 tab(s) Oral twice a day. Refills: 0. Next Dose: Pantoprazole (pantoprazole 40 mg oral delayed release tablet) 1 tab(s) Oral Daily. Refills: 0. Next Dose: Pregabalin (pregabalin 75 mg oral capsule) 1 capsule Oral Daily for 30 Days. Refills: 1. Next Dose: Sertraline (sertraline 25 mg oral tablet) 1 tab(s) Oral Daily. Refills: 1. Next Dose: Tamsulosin (Flomax 0.4 mg oral capsule) 0.4 Milligram Oral Daily. Next Dose: Tamsulosin (tamsulosin 0.4 mg oral capsule) 1 capsule Oral Daily for 30 Days. Refills: 1. Next Dose: Thiamine (Vitamin B1 100 mg oral tablet) 1 tab(s) Oral Daily. Refills: 5. Next Dose: Allergy Info:?? Other Food Allergy; sulfa drugs; gabapentin; penicillin Medications Given This Visit Future Orders ?Microalbumin Urine? Order Date:11/23/22?- Complete on or after?11/23/22 Vital Signs Height 178 cm Weight 74.3 kg BMI 23.45 kg/m2 Blood Pressure 107 mm Hg/66 mm Hg Temperature 97.6 DegF Pulse Rate 78 bpm Respiratory Rate 18 br/min 02 Sat Mode of Delivery 98 %/Room air You can now view a summary of your hospital visit from the comfort of your home through a free online portal called [employer]. [employer] is a website that allows you to securely view your medical information including discharge summary, medications and follow-up visits. ??You can alsosend a secure electronic message to your doctor???s office to request appointments, renew medications or just ask a question. You can enroll at [email or web address] or register during your next office visit. [...] primary care provider, you may find a [facility] provider by calling [facility] [employer] at [phone]. For information about the plan of care [...] Care Nurse Name: Jessica Castrejon RN Position: [facility] RN Member Role: Primary Care Nurse Name: Hien Hidalgo RN Position: [facility] RN Member Role: Primary Care Nurse Name: Phuong Balderas RN Position: [facility] SN RN Member Role: Primary Care Nurse Name: Evelyn Mcnulty RN Position: [facility] RN Member Role: Primary Care Nurse Name: Yanely Shanks RN Position: S RN Member Role: Primary Care Nurse Name: Sonya Dee NP Position: [facility] PCO Associate Professional Member Role: PCP Address: Address: [address] [place] [address], [address] [place], [place] [address] Name: Siddhartha Andino RN Position: S RN Member Role: Primary Care Nurse Name: Pola Reid RN Position: [facility] RN Supv Member Role: [...] Care Nurse Name: Marci Padilla RN Position: [facility] RN Member Role: Primary Care Nurse Name: Florecita Ring RN Position: [facility] RN Member Role: Primary Care Nurse Name: Dedra Lezama Position: [facility] RN Member Role: Primary Care Nurse Name: Pat Fernando RN Position: [facility] RN Member Role: Primary Care Nurse Name: Randa Sagastume RN Position: [facility] RN Member Role: Primary Care Nurse Name: Mitra Patel Position: [facility] RN Member Role: Primary Care Nurse Name: Kacie Campbell RN Position: [facility] RN Member Role: Primary Care Nurse Name: Tammy Castillo RN Position: [facility] RN Member Role: Primary Care Nurse Name: Charito Vazquez RN Position: [facility] ED RN W/OE and Tasks Member Role: Primary Care Nurse Name: Dylan Bond RN Position: [facility] RN Member Role: Primary Care Nurse Name: Lydia Doherty RN Position: [facility] RN Member Role: Primary Care Nurse Name: Elie Davis RN Position: [facility] RN Member Role: Primary Care Nurse Name: Delfina Still RN Position: [facility] RN Member Role: Primary Care Nurse Name: Chandni Gibbons RN Position: [facility] SN RN Member Role: Primary Care Nurse Name: Brayden Elizabeth RN Position: [facility] RN Member Role: Primary Care Nurse Name: Viry Zacarias RN Position: [facility] RN Member Role: Primary Care Nurse Name: Kerri Cunha RN Position: [facility] Doctor Of Optometry Member Role: Primary Care Nurse Name: Atiya Mcintyre RN Position: [facility] RN Member Role: Primary Care Nurse Care Team Related Persons Name: MYESHA IBETH Address: home [address] [place] [address] Name: IBETH CORRAL Address: home [address] [place] [address]
--- OUTSIDE RECORDS SUMMARY | 2023-04-11 15:24 | XMS_ITS | Continuity of Care Document ---
Author Name Unknown Organization [facility] Address [address] [place] [address]- Care Team Providers Care Detail Assembler Name Role Phone Luiz EQUIPMENT MANAGER, Sonya Primary Care Physician Encounter [facility] Date(s): 05/09/22 - 06/08/22 [facility] [address] [place] [phone]- Allergies, Adverse Reactions, Alerts Substance Reaction Severity [...] Patient Refuses 1Result Comment: [facility]: [id number] Medications Aspirin Low Dose 81 mg oral [...] 0 Refills, Maintenance, 05/10/22 9:49:00 EST, [facility], 178, cm, 03/14/22 15:25:00 EST, [...] 14:56:00 EST, Route to Pharmacy Electronically, [facility], 178, cm, 03/14/22 15:25:00 EST, Height, 72.5, kg, 03/08/22 4:29:00 EST, Dry Weight Start Date: 04/11/22 Status: Ordered magnesium oxide 400 mg oral tablet 1 tablet, By Mouth, Daily, # 28 tablet, 5 Refills, Maintenance, 01/17/22 14:43:00 EDT, [facility], 177, cm, 01/17/22 7:37:00 EDT, Height, 75, kg, 01/11/22 12:33:00 EDT, Dry Weight Start Date: 01/17/22 Status: Ordered metFORMIN 1000 mg oral tablet 1 tablet, By Mouth, 2 times a day, # 56 tablet, 5 Refills, Maintenance, 01/17/22 14:43:00 EDT, [facility], 177, cm, 01/17/22 7:37:00 EDT, Height, 75, kg, 01/11/22 12:33:00 EDT, Dry Weight Start Date: 01/17/22 Status: Ordered nicotine 21 mg/24 hr transdermal film, extended release 1 patch, Topically, Daily, # 30 patch, 0 Refills, Maintenance, 03/14/22 14:53:00 EST, Patch, [facility], Partial fill upon [...] Confirmed Active 1angioplasty 2000; 3 stents at [facility] 2R frontal stroke secondary [...] Negron Position: [facility] RN Member Role: Primary Care Nurse Name: Ewa Everett RN Position: [facility] RN Member Role: Primary Care Nurse Name: Hanna Dailey Position: [facility] RN Member Role: Primary Care Nurse Name: Gela Orosco RN Position: [facility] [...] Professional Member Role: PCP Address: Address: [address] [place] [address], [address] [place] [address]- Name: Pola Reid RN Position: [facility] RN Supv Member Role: Primary Care Nurse Name: Betzy Beckford RN Position: [facility] RN Member Role: Primary Care Nurse Name: Karley Perry LPN Position: [facility] AMB Nurse Member Role: Primary Care Nurse [...] Care Nurse Name: Ronda GARAY cecilia Position: [facility] [...] [facility] Hospital Lab Support Service Tech Member Role: Primary Care Nurse Name: Atiya Mcintyre RN Position: [facility] RN Member Role: Primary Care Nurse Care Team Related Persons Name: IBETH BRUNNER Address: home [address] [place], [place] Name: IBETH CORRAL Address: [address] [place], [place]
--- OUTSIDE RECORDS SUMMARY | 2023-04-11 15:25 | XMS_ITS | Continuity of Care Document ---
Author Name Unknown Organization [facility] ter Address [address] [place] [address]- Care Team Providers Care Professional Advisor Name Role Phone Leonardo Bingham III, MD Primary Care Physician Encounter [facility] Date(s): 04/14/20 - 04/14/[address] [address]- Encounter Diagnosis Tremor of unknown origin(Final) - 04/14/20 Discharge Disposition: A-D/C Home Attending Physician: Bobby Castillo DO Admitting Physician: Bobby Castillo DO Referring Physician: Not on Staff, Referring MD Allergies, Adverse Reactions, Alerts Substance Reaction Severity Status penicillin Active Medications Azithromycin 5 Day Dose Pack 250 mg oral tablet 1 pack/packet, By Mouth, Once, # 6 tablet, 0 Refills, Soft Stop, 04/14/20 11:41:00 EST, Tablet, [id number], Partial fill upon patient request if the prescription is for a schedule IIopioid drug., 178, cm, 03/15/20 11:15:00 EST, Heigh... Start Date: 04/14/20 Status: Ordered cefdinir 300 mg oral capsule 1 capsule = 300 mg, By Mouth, Every 12 hours, for 10 days, # 20 capsule, 0 Refills, Acute 04/24/20 11:40:00 EST, 04/14/20 11:40:00 EST, Capsule, [facility] #[id number], Partial fill upon patientrequest if the prescription is for a schedule II op... Start Date: 04/14/20 Stop Date: 04/24/20 Status: Ordered clonazePAM 0.5 mg oral tablet [...] Replace Required Details, Route to Pharmacy Electronically, [facility], Partial fill upon patie... Start Date: 03/15/20 Status: Ordered oxyCODONE 5 mg oral tablet TAKE 1 TABLET BY MOUTH EVERY 5 HOURS NEEDED FOR PAIN Start Date: 03/12/20 Status: Ordered Probiotic Formula (Bacillus Coagulans) oral capsule 1 capsule, By Mouth, Daily, # 10 capsule, 0 Refills, Maintenance, 04/14/20 11:39:00 EST, Capsule, [facility] #[id number], Partial fill upon patient request if the prescription is for a schedule II opioid drug., 1 capsule By Mouth Daily, 178, cm,... Start Date: 04/14/20 Status: Ordered simvastatin 40 mg oral tablet 40 mg, 1, tablet, By Mouth, Daily at bedtime, # 30 tablet, Refills 0, Tot. Refills 0, Maintenance, 03/15/20 12:20:00 EST, Route to Pharmacy Electronically, [facility], Partial fill uponpatient request, 178, cm, 03/15/20 11:15:00 EST, He... Start Date: 03/15/20 Status: Ordered Problem List Condition Effective Dates Status Health Status Inform ant Benign hypertension(Confirmed) Active CAD (coronary artery disease)(Confirmed) 1 Active Chronic lower back pain(Confirmed) Active Dyslipidemia(Confirmed) Active 1angioplasty 2000; 3 stents at [facility] Results Radiology Reports * Exam Date Time Procedure Performing Provider Status 04/14/20 8:59 AM Chest 2 Views Frontal and Lat Lesli Diaz; Zarina (Verified) Notes: (Chest 2 Views Frontal and Lat) Reason For Exam: Shortness of Breath RESULT: Chest 2 Views Frontal and Lat Chest 2 Views Frontal and Lat CLINICAL INDICATION: Shortness of breath. COMPARISON: Chest x-ray, 03/12/2020. FINDINGS: The cardiac silhouette is within normal limits. Hilar and mediastinal contours are normal. Subtle areas of reticulonodular opacity are seen in both the right upper and right lower lobes. The left lung is clear. There is no pleural effusion, pneumothorax, or evidence of CHF. No acute osseous abnormality is noted. IMPRESSION: Subtle areas of reticulonodular density is seen in the right upper and right lower lobes, most likely infectious or inflammatory in nature. This could be further assessed with CT as clinically indicated. WSN: [id number] Ordering Physician: Migue Parsons Dictated By: Angelica Walker MD Dictated Date/Time: 04/14/20 9:01 am Reviewed By: Angelica Walker MD Signed By: Angelica Walker MD Signed Date/Time: 04/14/20 9:01 am Transcribed By: ANDREAS Transcribed Date/Time: 04/14/20 8:59 am Vital Signs Most recent to oldest [Reference Range]: 1 2 3 Oxygen Saturation [94-100 %] 100 % (04/14/20 11:20 AM) 100 % (04/14/20 7:40 AM) 100 % (04/14/20 7:37 AM) Pulse Rate [55-90 bpm] 93 bpm *H* (04/14/20 11:20 AM) 85 bpm (04/14/20 7:40 AM) 80 bpm (04/14/20 7:37 AM) Blood Pressure [90-138/55-84 mm Hg] 115/69mm Hg (04/14/20 11:20 AM) 187/81mm Hg *H* (04/14/20 7:40 AM) Respiratory Rate [16-30 br/min] 16 br/min (04/14/20 11:20 AM) 22 br/min (04/14/20 7:40 AM) 18 br/min (04/14/20 7:37 AM) Temperature [96.8-100.4 DegF] 98.2 DegF (04/14/20 7:40 AM) Mode of Delivery (Oxygen) Room air (04/14/20 11:20 AM) Room air (04/14/20 7:40 AM) Blood pressure sites Arm, left (04/14/20 11:20 AM) Arm, right (04/14/20 7:40 AM) Temperature Route Oral (04/14/20 7:40 AM)
--- OUTSIDE RECORDS SUMMARY | 2023-04-11 15:25 | XMS_ITS | Continuity of Care Document ---
Author Name Unknown Organization [facility] Address [address] [place] [address]- Care Team Providers Care Polisher Implant Name Role Phone Luiz SALAS, Sonya Primary Care Physician Encounter [facility] Date(s): 02/10/21 - 03/12/21 [facility] [address] [place] [address]- Allergies, Adverse Reactions, Alerts Substance Reaction Severity [...] Refills, Maintenance, 01/16/21 10:30:00 EDT, Tablet, [id number], Partial fill upon patient request if [...] 11 Refills, Maintenance,01/16/21 10:26:00 EDT, Capsule, [facility][id number], Partial fill upon patient request if the prescription is for a schedule II opioid drug., 178, cm, 0... Start Date: 01/16/21 Stop Date: 01/11/22 Status: Ordered clonazePAM 0.5 mg oral tablet 1 tablet = 0.5 mg, By Mouth, 3 times a day, # 90 tablet, 1 Refills, Maintenance, 01/16/21 10:52:00 EDT, Tablet, [facility] #[id number], Partial fill upon patient request if the prescription is for a schedule II opioid drug., 178, cm, 12/29/20 5:31:00 EDT,... Start Date: 01/16/21 Stop Date: 03/17/21 Status: Ordered glimepiride 4 mg oral tablet 1 tablet, By Mouth, 2 times a day, # 60 tablet, 2 Refills, Maintenance, 01/16/21 10:26:00 EDT, [facility] #[id number], 178, cm, 12/29/20 5:31:00 EDT, Height, 100, kg, 12/26/20 16:53:00 EDT, Dry Weight Start Date: 01/16/21 Status: Ordered lactulose 10 gm/15 ml oral syrup 15 mL, By Mouth, Daily, PRN NEEDED FOR CONSTIPATION, # 473 mL, 0 Refills, [id number], 30, TAKE 15 ML BY MOUTH DAILY NEEDED FOR CONSTIPATION, 178, cm, 02/03/21 12:52:00 EDT, Height, 100, kg, 12/26/20 16:53:00 EDT, Dry Weight Start Date: 03/01/21 Status: Ordered lisinopril 10 mg oral tablet 10 mg, 1, tablet, By Mouth, Daily, # 30 tablet, Refills 5, Tot. Refills 5, Maintenance, 01/16/21 10:29:00 EDT, Route to Pharmacy Electronically, [facility] #[id number], Partial fill upon patient [...] 0 Refills, Maintenance, 03/15/20 12:57:00 EST, Tablet, [facility], Partial fill upon patient request, 178, cm, 03/15/20 11:15:00 EST, Height, 105, kg, 03/12/20 6:12:00 EST, Dry W... Start Date: 03/15/20 Status: Ordered oxyCODONE 5 mg oral tablet 5 mg, 1, tablet, By Mouth, 5 times a day, LEACH CELL OPERATOR checked., # 140 tablet, Refills 0, Tot. Refills 0, Maintenance, 02/24/21 15:51:00 EDT, Route to Pharmacy Electronically, [facility]/pharmacy #[id number], Partial fillupon patient request if the [...] 12/28/20 12:50:00 EDT, Route to Pharmacy Electronically, [facility], Partial fill upon [...] 11/07/20 Active 1angioplasty 2000; 3 stents at [facility] 2R frontal stroke secondary to [...]
--- OUTSIDE RECORDS SUMMARY | 2023-04-11 15:25 | XMS_ITS | Continuity of Care Document ---
Author Name Unknown Organization [facility] Adult Address [address] [place] [address]- Care Team Providers Care Power Electronics Research Engineer Name Role Phone Luiz SALAS, Sonya Primary Care Physician Encounter [facility] Date(s): 08/21/21 - 09/20/21 [facility] [address] [place] [phone]- Allergies, Adverse Reactions, Alerts Substance Reaction Severity [...] tablet, Refills 1, Route to Pharmacy Electronically, [id number], 178, cm, 05/11/21 8:52:00 EST, Height, 81, [...] tablet, By Mouth, 5 times a day, CLAY MINER checked. fill on 09/15/21 20 tabs go [...] Route to Pharmacy Electronically, [facility] #[id number], Partial fill upon patient request if [...] 11/07/20 Active 1angioplasty 2000; 3 stents at [facility] 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 [...]
--- OUTSIDE RECORDS SUMMARY | 2023-04-11 15:25 | XMS_ITS | Continuity of Care Document ---
Author Name Unknown Organization [facility] Adult Address [address] [place] [address]- Care Team Providers Care Senior Controls Analyst Name Role Phone Sonya Dee NP Primary Care Physician [phone] Encounter [facility] Date(s): 05/14/20 - 06/13/20 [facility] Adult [address] [place] [phone]- Allergies, Adverse Reactions, Alerts Substance Reaction Severity [...] 05/12/20 9:54:00 EST, Route to Pharmacy Electronically, [facility] #[id number], Partial fill upon patient request if the prescription is for a schedule II opi... Start Date: 05/12/20 Stop Date: 08/10/20 Status: Ordered metFORMIN 1000 mg oral tablet 1 tablet = 1,000 mg, By Mouth, 2 times a day, # 60 tablet, 0 Refills, Maintenance, 03/15/20 12:57:00 EST, Tablet, [facility], Partial fill upon patient request, 178, cm, 03/15/20 11:15:00 EST, Height, 105, kg, 03/12/20 6:12:00 EST, Dry W... Start Date: 03/15/20 Status: Ordered ofloxacin 0.3% otic solution See Instructions, 5 drops Right ear once daily x 7 days, # 10 mL, Refills 0, Tot. Refills 0, Maintenance, 03/15/20 14:25:00 EST, Instructions Replace Required Details, Route to Pharmacy Electronically, [facility], Partial fill upon patie... Start Date: 03/15/20 Status: Ordered oxyCODONE 5 mg oral tablet See Instructions, 28 days one tablet 5 x day, # 140 tablet, Refills 0, Tot. Refills 0, Maintenance,05/19/20 10:09:00 EST, Instructions Replace Required Details, Route to Pharmacy Electronically, [facility] #[id number], Partial fill upon patient... Start Date: 05/19/20 Status: Ordered Probiotic Formula (Bacillus Coagulans) oral capsule 1 capsule, By Mouth, Daily, # 10 capsule, 0 Refills, Maintenance, 04/14/20 11:39:00 EST, Capsule, [facility] #[id number], Partial fill upon patient request if the prescription is for a schedule II opioid drug., 1 capsule By Mouth Daily, 178, cm,... Start Date: 04/14/20 Status: Ordered simvastatin 40 mg oral tablet 40 mg, 1, tablet, By Mouth, Daily at bedtime, # 30 tablet, Refills 0, Tot. Refills 0, Maintenance, 03/15/20 12:20:00 EST, Route to Pharmacy Electronically, [facility], Partial fill uponpatient request, 178, cm, 03/15/20 11:15:00 EST, He... Start Date: 03/15/20 Status: Ordered Problem List Condition Effective Dates Status Health Status Inform ant Benign hypertension(Confirmed) Active CAD (coronary artery disease)(Confirmed) 1 Active Chronic lower back pain(Confirmed) Active Diabetes mellitus(Confirmed) Active Encephalopathy(Confirmed) Active Dyslipidemia(Confirmed) Active 1angioplasty 2000; 3 stents at [facility] Social History Social History Type Response Smoking Status Smoker, current stat us unknown; Type: Cigarettes; Other: 1/2-1 pk; entered on: 05/10/20 Sex
--- OUTSIDE RECORDS SUMMARY | 2023-04-11 15:25 | XMS_ITS | Continuity of Care Document ---
Author Name Unknown Organization [facility] Adult Address [address] [place] [address]- Care Team Providers Care Air Reduction Equipment Operator Name Role Phone Luiz SALAS, Sonya Primary Care Physician Encounter [facility] Date(s): 10/03/21 - 11/02/21 [facility] Adult [address] [place] [address]- Allergies, Adverse Reactions, Alerts Substance Reaction Severity [...] bedtime, # 28 tablet, 0 Refills, [facility], 160, cm, 10/22/21 7:52:00 EDT, [...] Route to Pharmacy Electronically, [id number], 178, cm, 05/11/21 8:52:00 EST, Height, 81, [...] 10/22/21 16:00:00 EDT, Route to Pharmacy Electronically, [facility], Partial fill upon patient request if the prescription... Start Date: 10/22/21 Stop Date: 10/25/21 Status: Ordered Tums 500 mg oral tablet, chewable 500 mg, 1, tablet, Chew, 3 times a day, PRN, # 90 tablet, Refills 5, Tot. Refills 5, Maintenance, Dyspepsia, 05/02/21 10:38:00 EST, Route to Pharmacy Electronically, [facility]acy #[id number], Partial fill upon patient request if the [...] I(Confirmed) Active 1angioplasty 2000; 3 stents at [facility] 2R frontal stroke secondary to [...]
--- OUTSIDE RECORDS SUMMARY | 2023-04-11 15:25 | XMS_ITS | Continuity of Care Document ---
Author Name Unknown Organization [facility] Adult Address [address] [place] [address]- Care Team Providers Care Senior Instrumentation Engineer Name Role Phone Luiz SALAS, Sonya Primary Care Physician Encounter [facility] Date(s): 08/15/21 - 09/14/21 [facility] Adult [address] [place] [phone]- Allergies, Adverse Reactions, Alerts Substance Reaction Severity [...] Refills, Maintenance, 05/02/21 10:38:00 EST, Tablet, [id number], Partial fill upon patient request if the [...] tablet, Refills 1, Route to Pharmacy Electronically, [id number], 178, cm, 05/11/21 8:52:00 EST, Height, 81, [...] tablet, By Mouth, 5 times a day, VEHICLE MAINTENANCE SUPERVISOR checked. fill on 09/15/21 20 tabs go [...] 10:38:00 EST, Route to Pharmacy Electronically, [facility]acy #[id number], Partial fill upon patient request [...] 11/07/20 Active 1angioplasty 2000; 3 stents at [facility] 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 [...]
--- OUTSIDE RECORDS SUMMARY | 2023-04-11 15:25 | XMS_ITS | Continuity of Care Document ---
Author Name Unknown Organization [facility] Adult Address [address] [place] [address]- Care Team Providers Care Design Coordinator Name Role Phone Luiz SALAS, Sonya Primary Care Physician [phone] Encounter [facility] Date(s): 11/19/22 - 12/19/22 [facility] Adult [address] [place] [address]- Allergies, Adverse Reactions, Alerts Substance Reaction Severity [...] pneumococcal 23-valent vaccine 02/04/13 Recorded 1Result Comment: [facility]: [id number] Medications albuterol-ipratropium 3 mg-0.5 mg/3 ml inhalation [...] Confirmed Active 1angioplasty 2000; 3 stents at [facility] 2R frontal stroke secondary to [...] Team Personnel Name: Adelia Landry RN Position: [facility] RN Member Role: Primary Care Nurse Name: [...] Care Nurse Name: Hien Hidalgo RN Position: [facility] RN Member Role: Primary Care Nurse Name: Phuong Balderas RN Position: [facility] SN RN Member Role: Primary Care Nurse Name: Evelyn Mcnulty RN Position: [facility] RN Member Role: Primary Care Nurse Name: Yanely Shanks RN Position: [facility] RN Member Role: Primary Care Nurse Name: Sonya Dee NP Position: [facility] PCO Associate Professional Member Role: PCP Address: Address: [address] [place] [address], [address] [place] [address]- Name: Siddhartha Andino RN Position: [facility] RN Member Role: Primary Care Nurse Name: Pola Reid RN Position: [facility] RN Supv Member Role: Primary Care Nurse Name: Betzy Beckford RN Position: [facility] RN Member Role: Primary Care Nurse Name: Ezra Acuna RN Position: [facility] RN Member Role: Primary Care Nurse Name: Gabriella Gonsales RN Position: [facility] RN Member Role: Primary Care Nurse Name: Zully Jara Position: [facility] RN Member Role: Primary Care Nurse Name: Yunior Bui RN Position: [facility] RN Member Role: Primary Care Nurse Name: Candace Liang RN Position: [facility] RN Member Role: Primary Care Nurse Name: Marci Padilla RN Position: [facility] RN Member Role: Primary Care Nurse Name: Florecita Ring RN Position: [facility] RN Member Role: Primary Care Nurse Name: Dedra Lezama Position: [facility] RN Member Role: Primary Care Nurse Name: Pat Fernando RN Position: [facility] RN Member Role: Primary Care Nurse Name: Randa Sagastume RN Position: [facility] RN Member Role: Primary Care Nurse Name: Mitra Patel Position: [facility] RN Member Role: Primary Care Nurse Name: Kacie Campbell RN Position: [facility] RN Member Role: Primary Care Nurse Name: Charito Vazquez RN Position: [facility] SUNITHA RN W/OE and Tasks Member Role: Primary Care Nurse Name: Dylan Bond RN Position: [facility] RN Member Role: Primary Care Nurse Name: Lydia Doherty RN Position: [facility] RN Member Role: Primary Care Nurse Name: Elie Davis RN Position: [facility] RN Member Role: Primary Care Nurse Name: Delfina Still RN Position: [facility] RN Member Role: Primary Care Nurse Name: Mary Wagner RN Position: [facility] RN Member Role: Primary Care Nurse Name: Chandni Gibbons RN Position: [facility] SN RN Member Role: Primary Care Nurse Name: Brayden Elizabeth RN Position: [facility] RN Member Role: Primary Care Nurse Name: Viry Zacarias RN Position: [facility] RN Member Role: Primary Care Nurse Name: Kerri Cunha RN Position: [facility] Master Carpenter Member Role: Primary Care Nurse Name: Atiya Mcintyre RN Position: [facility] RN Member Role: Primary Care Nurse Care Team Related Persons Name: IBETH CORRAL Address: home [address] [place] [address] [place] [address]
--- OUTSIDE RECORDS SUMMARY | 2023-04-11 15:25 | XMS_ITS | Continuity of Care Document ---
Author Name Unknown Organization [facility] Adult Address [address] [place] [address]- Care Team Providers Care Theatre Professor Name Role Phone Luiz SALAS, Sonya Primary Care Physician [phone] [facility] Date(s): 09/21/21 - 09/28/21 [facility] Adult [address] [place] [phone]- Encounter Diagnosis Status post CVA(Discharge Diagnosis) - 09/24/21 Diabetes mellitus(Discharge Diagnosis) - 09/24/21 Attending Physician: Not on Staff, Attending MD [...] 5 Refills, Maintenance, 05/02/21 10:38:00 EST, Tablet, [facility]acy #[id number], Partial fill upon patient request if the prescription is for a schedule II opioid drug., 178, cm, 04/27/21 4:54:00 ES... Start Date: 05/02/21 Stop Date: 10/29/21 Status: Ordered cephalexin monohydrate 250 mg oral tablet 1 tablet = 250 mg, By Mouth, 4 times a day, for 4 days, # 16 tablet, 0 Refills, Acute 09/30/21 10:42:00 EDT, 09/26/21 10:42:00 EDT, Tablet, [facility], Partial fill upon patient requestif the [...] tablet, Refills 1, Route to Pharmacy Electronically, [id number], 178, cm, 05/11/21 8:52:00 EST, Height, 81, [...] tablet, By Mouth, 5 times a day, ACCOUNTANT checked. fill on 09/15/21 20 tabs go [...] EST, Route to Pharmacy Electronically, 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 S/P Elective Coiling of Unruptured Aneurysm with Subsequent Left-Sided Weakness: Acute nonhemorrhagic infarct in the RIGHT posterior frontal lobe: Diagnosis Diagnosis Type Effective Dates Health Status Cl inical Service Informant Diabetes mellitus Discharge Diagnosis 09/24/21 Status post CVA Discharge Diagnosis 09/24/21 Vital Signs Most recent to oldest [Reference Range]: 1 Height 178 cm (09/21/21 10:49 AM) Weight 75.3 kg (09/21/21 10:49 AM) Oxygen Saturation [94-100 %] 98 % (09/21/21 10:49 AM) Pulse Rate [55-90 bpm] 102 bpm *H* (09/21/21 10:49 AM) Body Mass Index [18.5-24.99] 23.77 (09/21/21 10:49 AM) Blood Pressure [90-138/55-84 mm Hg] 116/ 68mm Hg (09/21/21 10:49 AM) Mode of Delivery (Oxygen) Room air (09/21/21 10:49 AM) Blood pressure sites Arm, left (09/21/21 10:49 AM) Temperature Route Oral (09/21/21 10:49 AM) Weight Obtained Via Standing scale (09/21/21 10:49 AM) Social History Social History Type Response Smoking Status Smoker, current stat us unknown; Type: Cigarettes; Other: 1/2-1 pk; entered on: 05/10/20 Sex
--- OUTSIDE RECORDS SUMMARY | 2023-04-11 15:25 | XMS_ITS | Continuity of Care Document ---
Author Name Unknown Organization [facility] Adult Address [address] [place] [address]- Care Team Providers Care Art Model Name Role Phone Luiz SALAS, Sonya Primary Care Physician [phone] Encounter [facility] Date(s): 02/03/21 - 02/10/21 [facility] Adult [address] [place] [address]- Encounter Diagnosis Recurrent falls(Discharge Diagnosis) - 02/06/21 Chronic pain(Discharge Diagnosis) - 02/06/21 Constipation(Discharge Diagnosis) - 02/06/21 Difficulty urinating(Discharge Diagnosis) - 02/06/21 Attending Physician: Samira Brooks MD Allergies, Adverse [...] 10:30:00 EDT, [facility] 11 Refills, Maintenance,01/16/21 10:26:00 EDT, Capsule, [facility]acy #[id number], Partial fill upon patient request if the prescription is for a schedule II opioid drug., 178, cm, 0... Start Date: 01/16/21 Stop Date: 01/11/22 Status: Ordered clonazePAM 0.5 mg oral tablet 1 tablet = 0.5 mg, By Mouth, 3 times a day, # 90 tablet, 1 Refills, Maintenance, 01/16/21 10:52:00 EDT, Tablet, [facility] #[id number], Partial [...] 0 Refills, Maintenance, 02/03/21 17:23:00 EDT, Syrup, [facility]acy #[id number], Partial fill [...] 03/15/20 12:57:00 EST, Tablet, [facility], Partial fill upon patient request, 178, cm, 03/15/20 11:15:00 EST, Height, 105, kg, 03/12/20 6:12:00 EST, Dry W... Start Date: 03/15/20 Status: Ordered oxyCODONE 5 mg oral tablet 5 mg, 1, tablet, By Mouth, 5 times a day, CHIEF METEOROLOGIST checked., # 140 tablet, Refills 0, Tot. 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 S/P Elective Coiling of Unruptured Aneurysm with Subsequent Left-Sided Weakness: Acute nonhemorrhagic infarct in the RIGHT posterior frontal lobe: Diagnosis Diagnosis Type Effective Dates Health Status Clinical Service Informant Recurrent falls Discharge Diagnosis 02/06/21 Chronic pain Discharge Diagnosis 02/06/21 Constipation Discharge Diagnosis 02/06/21 Difficulty urinating Discharge Diagnosis 02/06/21 Vital Signs Most recent to oldest [Reference Range]: 1 Height 178 cm (02/03/21 12:52 PM) Weight 91.3 kg (02/03/21 12:52 PM) Oxygen Saturation [94-100 %] 96 % (02/03/21 12:52 PM) Pulse Rate [55-90 bpm] 105 bpm *H* (02/03/21 12:52 PM) Body Mass Index [18.5-24.99] 28.82 *H* (02/03/21 12:52 PM) Blood Pressure [90-138/55-84 mm Hg] 110/ 68mm Hg (02/03/21 12:52 PM) Temperature [96.8-100.4 DegF] 98.4 DegF (02/03/21 12:52 PM) Mode of Delivery (Oxygen) Room air (02/03/21 12:52 PM) Blood pressure sites Arm, left (02/03/21 12:52 PM) Temperature Route Oral (02/03/21 12:52 PM) Weight Obtained Via Standing scale (02/03/21 12:52 PM) Social History Social History Type Response Smoking Status Smoker, current stat us unknown; Type: Cigarettes; Other: 1/2-1 pk; entered on: 05/10/20 Sex
--- OUTSIDE RECORDS SUMMARY | 2023-04-11 15:25 | XMS_ITS | Continuity of Care Document ---
Author Name Unknown Organization [facility] Adult Address [address] [place] [address]- Care Team Providers Care Pediatric Clinical Nurse Specialist Name Role Phone Luiz SALAS, Sonya Primary Care Physician Encounter [facility] Date(s): 07/31/21 - 08/30/21 [facility] Adult [address] [place] [phone]- Allergies, Adverse Reactions, Alerts Substance Reaction Severity [...] capsule, 11 Refills, Maintenance,05/02/21 10:36:00 EST, Capsule, [facility]/pharmacy #[id number], Partial fill upon patient request if the prescription is for a schedule II opioid drug., 178, cm, 0... Start Date: 05/02/21 Stop Date: 04/27/22 Status: Ordered clonazePAM 0.5 mg oral tablet 1 tablet = 0.5 mg, By Mouth, 3 times a day, # 90 tablet, 1 Refills, Maintenance, 07/25/21 17:16:00 EDT, Tablet, [facility]/pharmacy #[id number], Partial fill upon patient request if the prescription is for a schedule II opioid drug., 178, cm, 07/24/21 16:10:00 EDT... Start Date: 07/25/21 Stop Date: 09/23/21 Status: Ordered clopidogrel 75 mg oral tablet 1, tablet, By Mouth, Daily, # 90 tablet, Refills 1, Route to Pharmacy Electronically, [facility] [id number], 178, cm, 05/11/21 8:52:00 EST, Height, 81, kg, 05/06/21 2:22:00 EST, Dry Weight Start Date: 05/30/21 Status: Ordered glimepiride 4 mg oral tablet 1 tablet, By Mouth, 2 times a day, # 60 tablet, 5 Refills, Maintenance, 05/02/21 10:36:00 EST, [facility]/pharmacy #[id number], 178, cm, 04/27/21 4:54:00 EST, [...] 10/29/21 10:39:00 EDT, 05/02/21 10:39:00 EST, Tablet, [facility]/pharmacy #[id number], Partial fill upon patient request if the prescription is for a schedule II opioid drug., 178, cm,... Start Date: 05/02/21 Stop Date: 10/29/21 Status: Ordered metFORMIN 1000 mg oral tablet 1 tablet = 1,000 mg, By Mouth, 2 times a day, # 60 tablet, 5 Refills, Maintenance, 05/02/21 10:36:00 EST, Tablet, [facility]/pharmacy #[id number], Partial fill upon patient request, 178, cm, 04/27/21 4:54:00 EST,Height, 84.3, kg, 04/23/21 2:54:00 EST, Dry Weight Start Date: 05/02/21 Status: Ordered oxyCODONE 5 mg oral tablet 5 mg, 1, tablet, By Mouth, 5 times a day, TODDLER CAREGIVER checked., # 140 tablet, Refills 0, Tot. 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
--- OUTSIDE RECORDS SUMMARY | 2023-04-11 15:25 | XMS_ITS | Continuity of Care Document ---
Author Name Unknown Organization [facility] ter Address [address] [place] [id number]- Care Team Providers Care Chief Radiation Therapist Name Role Phone Luiz SALAS, Sonya Primary Care Physician [phone] Encounter [facility] [place] Date(s): 11/07/20 - 11/14/[address] [address] Discharge Disposition: Disch/Trans to IP Rehab or unit w/in Hos Attending Physician: Quincy Ledesma MD Admitting Physician: Espinoza James MD Referring [...] capsule, 11 Refills, Maintenance,08/19/20 5:59:00 EDT, Capsule, [id number], Partial fill upon patient request if the [...] 2 Refills, Maintenance, 10/07/20 11:44:00 EDT, Tablet, [id number], Partial fill upon patient request if the [...] Date: 11/14/20 Stop Date: 12/14/20 Status: Ordered lisinopril 20 mg oral tablet 40 mg, Tablet, By Mouth, 11/14/20 9:00:00 EDT Start Date: 11/14/20 Stop Date: 11/14/20 Status: Completed metFORMIN 1000 mg oral tablet 1 tablet = 1,000 mg, By Mouth, 2 times a day, # 60 tablet, 0 Refills, Maintenance, 03/15/20 12:57:00 EST, Tablet, [facility], Partial fill upon patient request, 178, cm, 03/15/20 11:15:00 EST, Height, 105, kg, 03/12/20 6:12:00 EST, Dry W... Start Date: 03/15/20 Status: Ordered oxyCODONE 5 mg oral tablet 5 mg, Tablet, By Mouth, Every 5 hours, PRN for Pain , Moderate, Routine, 11/09/20 16:25:00 EDT Start Date: 11/09/20 Stop Date: 11/14/20 Status: Discontinued oxyCODONE 5 mg oral tablet 5 mg, 1, tablet, By Mouth, 5 times a day, GRADER PATROL checked., # 140 tablet, Refills 0, Tot. Refills 0, Maintenance, 11/01/20 14:58:00 EDT, Route to Pharmacy Electronically, [id number], Partial fill upon patient request if the [...] Dyslipidemia(Confirmed) Active 1angioplasty 2000; 3 stents at [facility] Results Orders for Microbiology Reports Name Date Blood Culture 11/11/20 Blood Culture #2 11/11/20 Microbiology Reports TEST:Blood Culture, Second Order STATUS:Unauthenticated BODY SITE: SOURCE:Blood COLLECTED DATE/TIME:11/11/20 8:26 AM Blood Culture, Second Order SPECIMEN DESCRIPTION : BLOOD L HAND SPECIAL REQUESTS : NONE CULTURE : NO GROWTH 3 DAYS REPORT STATUS : PRELIMINARY REPORT TEST:Blood Culture STATUS:Unauthenticated BODY SITE: SOURCE:Blood COLLECTED DATE/TIME:11/11/20 8:09 AM Blood Culture SPECIMEN DESCRIPTION : BLOOD RHAND SPECIAL REQUESTS : NONE CULTURE : NO GROWTH 3 DAYS REPORT STATUS : PRELIMINARY REPORT Radiology Reports * Exam Date Time Procedure Performing Provider Status 11/11/20 8:20 AM Chest Portable Gloria Dye; Auth (Verified) Notes: (Chest Portable) Reason For Exam: Cough RESULT: Chest Portable Chest Portable HISTORY: Cough. COMPARISON: Numerous radiological studies, most recent chest radiograph 11/10/2020. FINDINGS: LINES AND TUBES: None. LUNGS AND PLEURA: No consolidation. No pleural effusion. No pneumothorax. HEART, MEDIASTINUM AND MAHESH: Heart is normal in size. Normal upper mediastinal and hilar contour. BONES AND SOFT TISSUES: Degenerative changes of the spine. Mildly distended gastric chamber. Radiolucent line extends through the left lower chest, likely inferior border of the rib. IMPRESSION: No evidence of active cardiopulmonary disease is seen. No interval change. I have personally reviewed the images and I agree with this report. WSN: [id number] Ordering Physician: Brad Mathias Dictated By: Kanu Vasquez MD Dictated Date/Time: 11/11/20 9:17 am Reviewed By: Aramis Chamberlain MD, V Signed By: Aramis Chamberlain MD, V Signed Date/Time: 11/11/20 9:22 am Transcribed By: ANDREAS Transcribed Date/Time: 11/11/20 8:44 am * Exam Date Time Procedure Performing Provider Status 11/10/20 8:15 AM Chest Portable Charito Owen; Auth (V erified) Notes: (Chest Portable) Reason For Exam: Cough RESULT: Chest Portable Chest Portable INDICATION: Reason: Cough; Clinical Question(s): Pneumonia COMPARISON: 04/10/2020 FINDINGS: LINES AND TUBES: None. LUNGS AND PLEURA: The lungs are clear and the pulmonary vascularity is normal. The previously seen hazy areas of reticulonodular opacity in the right upper and lower lobes appear resolved. No effusion or pneumothorax. HEART, MEDIASTINUM AND MAHESH: Normal. BONES AND SOFT TISSUES: No acute abnormality. IMPRESSION: No acute cardiopulmonary disease. WSN: [id number] Ordering Physician: Juancho Gan Dictated By: Angie Vazquez MD Dictated Date/Time: 11/10/20 10:43 a Reviewed By: Angie Vazquez MD Signed By: Angie Vazquez MD Signed Date/Time: 11/10/20 10:43 am Transcribed By: ANDREAS Transcribed Date/Time: 11/10/20 10:42 am Vital Signs Most recent to oldest [Reference Range]: 1 2 3 Height 178 cm (11/14/20 8:29 AM) 178 cm (11/13/20 3:31 PM) 178 cm (11/13/20 11:44 AM) Weight 101 kg (11/08/20 8:10 AM) 100 kg (11/07/20 7:34 AM) 101.5 kg (11/07/20 6:40 AM) Oxygen Saturation [94-100 %] 93 % *L* (11/14/20 8:29 AM) 94 % (11/14/20 3:30 AM) 94 % (11/14/20 12:21 AM) Pulse Rate [55-90 bpm] 76 bpm (11/14/20 8:29 AM) 84 bpm (11/14/20 3:30 AM) 86 bpm (11/14/20 12:21 AM) Blood Pressure [90-138/55-84 mm Hg] 148/73mm Hg *H* (11/14/20 9:30 AM) 148/73mm Hg *H* (11/14/20 8:29 AM) 145/62mm Hg *H* (11/14/20 3:30 AM) Respiratory Rate [16-30 br/min] 18 br/min (11/14/20 9:30 AM) 18 br/min (11/14/20 8:29 AM) 17 br/min (11/14/20 3:30 AM) Temperature [96.8-100.4 DegF] 98.4 DegF (11/14/20 8:29 AM) 97.4 DegF (11/14/20 3:30 AM) 99.3 DegF (11/14/20 12:21 AM) Liters per Minute 0 L/min (11/14/20 8:29 AM) 0 L/min (11/13/20 3:31 PM) 0 L/min (11/13/20 11:44 AM) Mode of Delivery (Oxygen) Room air (11/14/20 8:29 AM) Room air (11/14/20 3:30 AM) Room air (11/14/20 12:21 AM) Blood pressure sites Arm, left (11/14/20 8:29 AM) Arm, left (11/14/20 3:30 AM) Arm, left (11/14/20 12:21 AM) Temperature Route Oral (11/14/20 8:29 AM) Temporal (11/14/20 3:30 AM) Temporal (11/14/20 12:21 AM) Dry Weight 100 kg (11/07/20 7:34 AM) 101.5 kg (11/07/20 6:40 AM) Weight Obtained Via Bed scale (11/08/20 8:10 AM) Social History Social History Type Response Smoking Status Smoker, current stat us unknown; Type: Cigarettes; Other: 1/2-1 pk; entered on: 05/10/20 Sex
--- OUTSIDE RECORDS SUMMARY | 2023-04-11 15:25 | XMS_ITS | Continuity of Care Document ---
Author Name Unknown Organization [facility] ter Address [address] [place] [address]- Care Team Providers Care Grape Cutter Name Role Phone Luiz SALAS, Sonya Primary Care Physician [phone] Encounter [facility] [place] Date(s): 02/13/21 - 02/13/[address] [address]- Encounter Diagnosis Constipation(Final) - 02/13/21 Discharge Disposition: A-D/C Home Attending Physician: Jose SAVAGE, Karl Guthrie Admitting Physician: Jose SAVAGE, Karl Guthrie Referring Physician: Not on Staff, Referring MD [...] Refills, Maintenance, 01/16/21 10:30:00 EDT, Tablet, [id number], Partial fill upon patient request if the prescription is for a schedule II opioid drug., 178, cm, 12/29/20 5:31:00 EDT, Height, 1... Start Date: 01/16/21 Stop Date: 07/15/21 Status: Ordered aspirin 81 mg oral tablet, chewable 81 mg, 1, tablet, By Mouth, Daily, # 30 tablet, Refills 5, Tot. Refills 5, Maintenance, 01/16/21 10:30:00 EDT, Route to Pharmacy Electronically, [facility]/pharmacy [...] capsule, 11 Refills, Maintenance,01/16/21 10:26:00 EDT, Capsule, [facility]/pharmacy #[id number], Partial fill upon patient request if the prescription is for a schedule II opioid drug., 178, cm, 0... Start Date: 01/16/21 Stop Date: 01/11/22 Status: Ordered clonazePAM 0.5 mg oral tablet 1 tablet = 0.5 mg, By Mouth, 3 times a day, # 90 tablet, 1 Refills, Maintenance, 01/16/21 10:52:00 EDT, Tablet, [facility]/pharmacy #[id number], Partial fill upon patient request if the prescription is for a schedule II opioid drug., 178, cm, 12/29/20 5:31:00 EDT,... Start Date: 01/16/21 Stop Date: 03/17/21 Status: Ordered glimepiride 4 mg oral tablet 1 tablet, By Mouth, 2 times a day, # 60 tablet, 2 Refills, Maintenance, 01/16/21 10:26:00 EDT, [facility]/pharmacy #[id number], 178, cm, 12/29/20 5:31:00 EDT, Height, 100, kg, 12/26/20 16:53:00 EDT, Dry Weight Start Date: 01/16/21 Status: Ordered lactulose 10 gm/15 ml oral syrup 15 mL = 10 Gm, By Mouth, Daily, PRN as needed for constipation, # 480 mL, 0 Refills, Maintenance, 02/03/21 17:23:00 EDT, Syrup, [facility]/pharmacy #[id number], Partial fill upon patient request if the prescription is for a schedule II opioid drug., 15 mL By Mouth... Start Date: 02/03/21 Status: Ordered lisinopril 10 mg oral tablet 10 mg, 1, tablet, By Mouth, Daily, # 30 tablet, Refills 5, Tot. Refills 5, Maintenance, 01/16/21 10:29:00 EDT, Route to Pharmacy Electronically, [facility]/pharmacy [...] 12:57:00 EST, Tablet, [facility], Partial fill upon patient request, 178, cm, 03/15/20 11:15:00 EST, Height, 105, kg, 03/12/20 6:12:00 EST, Dry W... Start Date: 03/15/20 Status: Ordered MiraLax oral powder for reconstitution = 17 Gm, By Mouth, Daily, for 14 days, dissolve in water before taking, # 238 Gm, 0 Refills, Acute 02/27/21 13:29:00 EST, 02/13/21 13:29:00 EDT, REC Powder, [facility]/pharmacy #[id number], Partial fill upon patient request if the prescription is for a schedule II... Start Date: 02/13/21 Stop Date: 02/27/21 Status: Ordered oxyCODONE 5 mg oral tablet 5 mg, 1, tablet, By Mouth, 5 times a day, EDUCATION DEPARTMENT REGISTRAR checked., # 140 tablet, Refills 0, Tot. Refills 0, Maintenance, 01/16/21 10:52:00 EDT, Route to Pharmacy Electronically, [facility]/pharmacy #[id number], Partial fillupon patient request [...] to Pharmacy Electronically, [facility], Partial fill upon patient request if [...] Exam Date Time Procedure Performing Provider Status 02/13/21 12:10 PM Abdomen Series W/ PA Chest Alejandra Soto; Auth (Verified) Notes: (Abdomen Series W/ PA Chest) Reason For Exam: Nausea; constipation;Other: RESULT: Abdomen Series W/ PA Chest Abdomen Series W/ PA Chest 4 views INDICATION: Constipation for several weeks. Back pain. COMPARISON: Chest x-ray 12/25/2020 FINDINGS: LINES AND TUBES: None. LUNGS AND PLEURA: Clear lungs. Normal vascularity. No pleural effusion. No pneumothorax. HEART, MEDIASTINUM AND MAHESH: Normal. BOWEL GAS PATTERN AND SOFT TISSUES: No dilated bowel loops. Scattered increased small bowel gas in nonspecific pattern. BONES: No acute bony abnormalities. IMPRESSION: Nonspecific gas pattern with slightly more small bowel gas than usual. This is a common finding after laxative use. No evidence of intestinal obstruction or other acute process. WSN: [id number] Ordering Physician: Karl Garcia Dictated By: Karl Winn MD Dictated Date/Time: 02/13/21 12:38 p Reviewed By: Karl Winn MD Signed By: Karl Winn MD Signed Date/Time: 02/13/21 12:38 pm Transcribed By: ANDREAS Transcribed Date/Time: 02/13/21 12:37 pm Vital Signs Most recent to oldest [Reference Range]: 1 2 Oxygen Saturation [94-100 %] 98 % (02/13/21 12:02 PM) 95 % (02/13/21 8:28 AM) Pulse Rate [55-90 bpm] 98 bpm *H* (02/13/21 12:02 PM) 101 bpm *H* (02/13/21 8:28 AM) Blood Pressure [90-138/55-84 mm Hg] 110/ 78mm Hg (02/13/21 12:02 PM) 108/68mm Hg (02/13/21 8:28 AM) Respiratory Rate [16-30 br/min] 20 br/mi n (02/13/21 12:02 PM) 20 br/min (02/13/21 8:28 AM) Temperature [96.8-100.4 DegF] 98.2 DegF (02/13/21 8:28 AM) Mode of Delivery (Oxygen) Room air (02/13/21 12:02 PM) Room air (02/13/21 8:28 AM) Temperature Route Oral (02/13/21 8:28 AM) Social History Social History Type Response Smoking Status Smoker, current stat us unknown; Type: Cigarettes; Other: 1/2-1 pk; entered on: 05/10/20 Sex
--- OUTSIDE RECORDS SUMMARY | 2023-04-11 15:25 | XMS_ITS | Continuity of Care Document ---
Author Name Unknown Organization [facility] Adult Address [address] [place] [address]- Care Team Providers Care Brine Purifier Name Role Phone Luiz CAMPUS RECEPTIONIST, Sonya Primary Care Physician Encounter [facility] Date(s): 07/04/22 - 08/03/22 [facility] [address] [place] [address]- Allergies, Adverse Reactions, Alerts Substance Reaction Severity [...] 05/26/20 Not Given Patient Refuses 1Result Comment: [facility]: [id number] Medications Aspirin Low Dose 81 mg oral [...] Maintenance, 07/31/22 13:23:00 EDT, [facility], 178, cm, 07/23/22 11:32:00 EDT, [...] Route to Pharmacy Electronically, [facility], 178, cm, 07/23/22 11:32:00 EDT, [...] 0 Refills, Maintenance, 08/01/22 11:17:00 EDT, [facility], 178, cm, 07/23/22 11:32:00 EDT, Height, 72.5, [...] 13:25:00 EDT, Route to Pharmacy Electronically, [facility], 178, cm, 07/23/22 11:32:00 EDT, Height, 72.5, [...] 1 Refills, Maintenance, 07/31/22 13:25:00 EDT, [facility], 178, cm, 07/23/22 11:32:00 EDT, Height, 72.5, kg, 03/08/22 4:29:00 EST, Dry Weight Start Date: 07/31/22 Status: Ordered nicotine 21 mg/24 hr transdermal film, extended release 1 patch, Topically, Daily, # 30 patch, 0 Refills, Maintenance, 03/14/22 14:53:00 EST, Patch, [facility], Partial fill upon [...] Confirmed Active 1angioplasty 2000; 3 stents at [facility] 2R frontal stroke secondary to [...] Care Team Personnel Name: Alicia Negron Position: [facility] RN Member Role: Primary Care Nurse Name: Hanna Dailey Position: [facility] RN Member Role: Primary Care Nurse Name: Gela Orosco RN Position: [facility] RN [...] Associate Professional Member Role: PCP Address: Address: [address] [place] [address], [address] [place] [address]- Name: Pola Reid RN Position: [facility] RN Supv Member Role: Primary Care Nurse Name: Betzy Beckford RN Position: [facility] RN Member Role: Primary Care Nurse Name: Karley Perry LPN Position: [facility] AMB Nurse Member Role: Primary [...] RN Member Role: Primary Care Nurse Name: Kreri Cunha RN Position: [facility] Switchboard Troubleshooter Member Role: Primary Care Nurse Name: Atiya Mcintyre RN Position: [facility] RN Member Role: Primary Care Nurse Care Team Related Persons Name: MYESHA IBETH Address: home [address] [place] [address] Name: IBETH CORRAL Address: home [address] [place] [address]
--- OUTSIDE RECORDS SUMMARY | 2023-04-11 15:25 | XMS_ITS | Continuity of Care Document ---
Author Name Unknown Organization [facility] Adult Address [address] [place] [address]- Care Team Providers Care Tire Installer Name Role Phone Luiz SALAS, Sonya Primary Care Physician Encounter [facility] Date(s): 12/21/20 - 01/20/21 [facility] [address] [place] [address]- Allergies, Adverse Reactions, Alerts Substance Reaction Severity [...] Refills, Maintenance, 01/16/21 10:30:00 EDT, Tablet, [id number], Partial fill upon patient request if the [...] 0 Refills, Maintenance, 03/15/20 12:57:00 EST, Tablet, [facility], Partial fill upon patient request, 178, cm, 03/15/20 11:15:00 EST, Height, 105, kg, 03/12/20 6:12:00 EST, Dry W... Start Date: 03/15/20 Status: Ordered oxyCODONE 5 mg oral tablet 5 mg, 1, tablet, By Mouth, 5 times a day, JUMPBASTING ARMHOLE BASTER checked., # 140 tablet, Refills 0, Tot. Refills 0, Maintenance, 01/16/21 10:52:00 EDT, Route to Pharmacy Electronically, [facility]/pharmacy [...] 12/28/20 12:50:00 EDT, Route to Pharmacy Electronically, [facility], Partial fill upon patient [...]
--- OUTSIDE RECORDS SUMMARY | 2023-04-11 15:25 | XMS_ITS | Continuity of Care Document ---
Author Name Unknown Organization [facility] Adult Address [address] [place] [address]- Care Team Providers Care Dental Associate Name Role Phone Not on Staff, PCP Primary Care Physician Unavail able Encounter [facility] Date(s): 11/16/21 - 12/16/21 [facility] [address] [place] [address]- Allergies, Adverse Reactions, Alerts Substance Reaction Severity [...] EST, Route to Pharmacy Electronically, [facility]/pharmacy #[id number], Partial fill upon patient request if [...] on: 11/28/21 Sex Care Team Personnel Name: Not on Staff, PCP
--- OUTSIDE RECORDS SUMMARY | 2023-04-11 15:25 | XMS_ITS | Continuity of Care Document ---
Author Name Unknown Organization [facility] ter Address [address] [place] [id number]- Care Team Providers Care Kiln Labourer Name Role Phone Luiz SALAS, Sonya Primary Care Physician Encounter [facility] Date(s): 03/01/23 - 03/02/[address] [address]- Encounter Diagnosis Fall(Final) - 03/02/23 Altered mental status(Final) - 03/02/23 Discharge Disposition: A-D/C Home Attending Physician: Kirby Kowalski MD Admitting Physician: Kirby Kowalski MD Referring Physician: Not on Staff, Referring [...] 23-valent vaccine 02/04/13 Recorded 1Result Comment: [facility]: [id number] Medications acetaminophen 325 mg oral tablet 650 [...] Confirmed Active 1angioplasty 2000; 3 stents at [facility] 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 S/P Elective Coiling of Unruptured Aneurysm with Subsequent Left-Sided Weakness: Acute nonhemorrhagic infarct in the RIGHT posterior frontal lobe: Results Radiology Reports * Exam Date Time Procedure Performing Provider Status 03/01/23 6:51 PM US Doppler Ext Lower Venous Left Yo Monreal; Auth (Verified) Notes: (US Doppler Ext Lower Venous Left) Reason For Exam: Pain in limb;Other: RESULT: US Doppler Ext Lower Venous Left US Doppler Ext Lower Venous Left Hx of Present Illness: fall; Reason: Other:; Pain in limb; Clinical Question(s): Thrombus COMPARISON: None IMAGING TECHNIQUE: Ultrasound of the veins from the groin through the calf was performed using grayscale, color, and spectral Doppler ultrasound assessing for complete compressibility and normal flowcharacteristics. FINDINGS: Common femoral vein: Patent. No thrombosis. Femoral vein: Patent. No thrombosis. Popliteal vein: Patent. No thrombosis. Gastrocnemius veins: The visualized portions are patent without evidence of thrombosis. Peroneal veins: The visualized portions are patent without evidence of thrombosis. Posterior tibial veins: The visualized portions are patent without evidence of thrombosis. Contralateral common femoral vein: Patent. No thrombosis. OTHER FINDINGS: IMPRESSION: No evidence of deep venous thrombosis. WSN: [id number] Ordering Physician: Holley Boudreaux Dictated By: Jose Javier MD Dictated Date/Time: 03/01/23 6:56 pm Reviewed By: Jose Javier MD Signed By: Jose Javier MD Signed Date/Time: 03/01/23 6:56 pm Transcribed By: ANDREAS Transcribed Date/Time: 03/01/23 6:55 pm * Exam Date Time Procedure Performing Provider Status 03/01/23 5:[address] Cervical Spine W/O Contrast Colon , Adela; Auth (Verified) Notes: (CT Cervical Spine W/O Contrast) Reason For Exam: Neck trauma, dangerous injury mechanism;Other: RESULT: CT Cervical Spine W/O Contrast PROCEDURE: CT Head/Brain W/O Contrast, CT Cervical Spine W/O Contrast INDICATION: 67 years old Male with Hx of Present Illness: fall; Reason: Other:; unwitnessed fall; Clinical Question(s): Brain injury, neck pain. History of frequent falls, history of coiling of RIGHTMCA bifurcation aneurysm. COMPARISON: CT head and cervical spine January 03, 2023, December 27, 2022, a 10/09/2022 and 10/19/2022 many other examinations of the head between 2017 and 2021. PLEASE NOTE THAT THE PATIENT HAS UNDERGONE APPROXIMATELY 30 CT EXAMINATIONS OF THE HEAD BETWEEN 2018 AND TODAY. TECHNIQUE: HEAD: Unenhanced head CT performed with 5 mm contiguous axial images. Coronal reformations also performed. 1.2 mm axial reconstructions using bone algorithm are also provided. C-SPINE: Helical 2 mm images obtained through the cervical spine. Axial, sagittal and coronal reconstructions using soft tissue and bone algorithm are provided. Weight-based protocol using automatic tube modulation utilized to optimize exposure parameters. Automatic tube modulation was used for the cervical spine and iterative dose reconstruction was used for both the head and cervical spine to optimize scan parameters and image quality. CTDIvol Body: 13.50 mGy, DLP Body: 390 mGy*cm. CTDIvol Head: 40.20 mGy, DLP Head: 671 mGy*cm. FINDINGS: FINDINGS: Visual Inspector View Findings, Lines and Tubes: None. BRAIN AND EXTRA-AXIAL SPACES: Right posterior frontal and insular cystic encephalomalacia unchanged consistent with old infarct. Coil material seen within the distal RIGHT MCA causing metallic artifact. Compensatory dilatation ofthe RIGHT lateral ventricle noted again. Old linear lacunar infarct in the RIGHT basal ganglia and small lacunar infarct in the medial aspect of the LEFT basal ganglia again noted. Mild prominence of the ventricles and sulci consistent with atrophy. Mild low-density white matter changes. No subarachnoid hemorrhage. No subdural or epidural collection. CALVARIUM, SKULL BASE, AND SOFT TISSUES: No fractures or suspicious bony lesions. The paranasal sinuses and mastoid air cells are clear.] Partially visualized inferior posterior RIGHT polyp or retention cysts in the maxillary sinus measuring 1.8 cm. Status-post bilateral lens extraction. The extracranial soft tissues are unremarkable. CERVICAL SPINE: No fracture. No acute osseous abnormalities. Normal alignment. No locked or perched facet. Mild to moderate degenerative endplate changes at C3-C4, C4-C5 and C5-C6 with mild loss of disc height. Uncovertebral and facet hypertrophy cause moderate neural foraminal narrowing on the RIGHT at C5-C6 unchanged. OTHER BONES: No acute abnormality. CERVICAL SOFT TISSUES AND LUNG APICES: Normal soft tissues. Visualized lung apices are clear. IMPRESSION: 1. No evidence of acute intracranial abnormality or skull fractures. 2. Evidence of prior coiling of RIGHT MCA bifurcation aneurysm injury in the seen. Unchanged old infarcts in the RIGHT frontal and insular regions with compensatory dilatation of the RIGHT lateral ventricle unchanged. Mild cortical atrophy and chronic white matter ischemic changes in the brain. 3. No evidence of acute bony injuries in the cervical spine. Degenerative changes causing mild to moderate right-sided neural foraminal narrowing at C5-C6. Thank you for allowing me to participate in the care of this patient. WSN: [id number] Ordering Physician: Holley Boudreaux Dictated By: Sean Sinha MD Dictated Date/Time: 03/01/23 6:01 pm Reviewed By: Sean Sinha MD Signed By: Sean Sinha MD Signed Date/Time: 03/01/23 6:01 pm Transcribed By: ANDREAS Transcribed Date/Time: 03/01/23 5:50 pm * Exam Date Time Procedure Performing Provider Status 03/01/23 5:[address] Head/Brain W/O Contrast Ousmane , Stephon sánchez; Auth (Verified) Notes: (CT Head/Brain W/O Contrast) Reason For Exam: unwitnessed fall;Other: RESULT: CT Head/Brain W/O Contrast PROCEDURE: CT Head/Brain W/O Contrast, CT Cervical Spine W/O Contrast INDICATION: 67 years old Male with Hx of Present Illness: fall; Reason: Other:; unwitnessed fall; Clinical Question(s): Brain injury, neck pain. History of frequent falls, history of coiling of RIGHTMCA bifurcation aneurysm. COMPARISON: CT head and cervical spine January 03, 2023, December 27, 2022, a 10/09/2022 and 10/19/2022 many other examinations of the head between 2017 and 2021. PLEASE NOTE THAT THE PATIENT HAS UNDERGONE APPROXIMATELY 30 CT EXAMINATIONS OF THE HEAD BETWEEN 2018 AND TODAY. TECHNIQUE: HEAD: Unenhanced head CT performed with 5 mm contiguous axial images. Coronal reformations also performed. 1.2 mm axial reconstructions using bone algorithm are also provided. C-SPINE: Helical 2 mm images obtained through the cervical spine. Axial, sagittal and coronal reconstructions using soft tissue and bone algorithm are provided. Weight-based protocol using automatic tube modulation utilized to optimize exposure parameters. Automatic tube modulation was used for the cervical spine and iterative dose reconstruction was used for both the head and cervical spine to optimize scan parameters and image quality. CTDIvol Body: 13.50 mGy, DLP Body: 390 mGy*cm. CTDIvol Head: 40.20 mGy, DLP Head: 671 mGy*cm. FINDINGS: FINDINGS: Visual Inspector View Findings, Lines and Tubes: None. BRAIN AND EXTRA-AXIAL SPACES: Right posterior frontal and insular cystic encephalomalacia unchanged consistent with old infarct. Coil material seen within the distal RIGHT MCA causing metallic artifact. Compensatory dilatation ofthe RIGHT lateral ventricle noted again. Old linear lacunar infarct in the RIGHT basal ganglia and small lacunar infarct in the medial aspect of the LEFT basal ganglia again noted. Mild prominence of the ventricles and sulci consistent with atrophy. Mild low-density white matter changes. No subarachnoid hemorrhage. No subdural or epidural collection. CALVARIUM, SKULL BASE, AND SOFT TISSUES: No fractures or suspicious bony lesions. The paranasal sinuses and mastoid air cells are clear.] Partially visualized inferior posterior RIGHT polyp or retention cysts in the maxillary sinus measuring 1.8 cm. Status-post bilateral lens extraction. The extracranial soft tissues are unremarkable. CERVICAL SPINE: No fracture. No acute osseous abnormalities. Normal alignment. No locked or perched facet. Mild to moderate degenerative endplate changes at C3-C4, C4-C5 and C5-C6 with mild loss of disc height. Uncovertebral and facet hypertrophy cause moderate neural foraminal narrowing on the RIGHT at C5-C6 unchanged. OTHER BONES: No acute abnormality. CERVICAL SOFT TISSUES AND LUNG APICES: Normal soft tissues. Visualized lung apices are clear. IMPRESSION: 1. No evidence of acute intracranial abnormality or skull fractures. 2. Evidence of prior coiling of RIGHT MCA bifurcation aneurysm injury in the seen. Unchanged old infarcts in the RIGHT frontal and insular regions with compensatory dilatation of the RIGHT lateral ventricle unchanged. Mild cortical atrophy and chronic white matter ischemic changes in the brain. 3. No evidence of acute bony injuries in the cervical spine. Degenerative changes causing mild to moderate right-sided neural foraminal narrowing at C5-C6. Thank you for allowing me to participate in the care of this patient. WSN: [id number] Ordering Physician: Holley Boudreaux Dictated By: Sean Sinha MD Dictated Date/Time: 03/01/23 6:01 pm Reviewed By: Sean Sinha MD Signed By: Sean iSnha MD Signed Date/Time: 03/01/23 6:01 pm Transcribed By: ANDREAS Transcribed Date/Time: 03/01/23 5:50 pm Vital Signs Most recent to oldest [Reference Range]: 1 2 3 Height 178 cm (03/01/23 11:24 PM) 178 cm (03/01/23 4:06 PM) 178 cm (03/01/23 3:58 PM) Weight 84 kg (03/01/23 11: PM) 84 kg (03/01/23 4:06 PM) 84 kg (03/01/23 3:58 PM) Oxygen Saturation [94-100 %] 98 % (03/01/23 11: PM) 100 % (03/01/23 5:00 PM) 100 % (03/01/23 3:58 PM) Pulse Rate [55-90 bpm] 102 bpm *H* (03/01/23 11:24 PM) 72 bpm (03/01/23 5:00 PM) 83 bpm (03/01/23 3:58 PM) Body Mass Index [18.5-24.99 kg/m2] 26.51 kg/m2 *H* (03/01/23 11:24 PM) 26.51 kg/m2 *H* (03/01/23 3:58 PM) Blood Pressure [90-138/55-84 mm Hg] 161/90mm Hg *H* (03/01/23 11:24 PM) 180/91mm Hg *H* (03/01/23 5:00 PM) 113/58mm Hg (03/01/23 3:58 PM) Respiratory Rate [16-30 br/min] 18 br/min (03/01/23 11:24 PM) 17 br/min (03/01/23 5:00 PM) 17 br/min (03/01/23 3:58 PM) Temperature [96.8-100.4 DegF] 98.3 DegF (03/01/23 3:58 PM) Mode of Delivery (Oxygen) Room air (03/01/23 11:24 PM) Room air (03/01/23 5:00 PM) Room air (03/01/23 3:58 PM) Blood pressure sites Arm, left (03/01/23 11:24 PM) Arm, right (03/01/23 5:00 PM) Arm, right (03/01/23 3:58 PM) Temperature Route Oral (03/01/23 3:58 PM) Dry Weight 84 kg (03/01/23 11:24 PM) 84 kg (03/01/23 4:06 PM) 84 kg (03/01/23 3:58 PM) Social History Social History Type Response Smoking Status 10 or more cigarette s (1/2 pack or more)/day in last 30 days; Interested in cessation: No; Patient wants NRT during admission Yes; Tobacco use times per day: 1PPD; Number of years: 53; Total pack years: 53; Started at age: 13; entered on: 03/08/22 Sex Male EKG study * Event Display: EKG Authored Date: [id number] Patient Care team information Care Team Personnel Name: Adelia Landry RN Position: [facility] RN Member Role: Primary Care Nurse Name: Alicia Negron Position: [facility] RN Member Role: Primary Care Nurse Name: Jason Pereira RN Position: [facility] RN Member Role: Primary Care Nurse Name: Hanna Dailey Position: [facility] RN Member Role: Primary Care Nurse Name: Nereida Dobbins RN Position: [facility] RN Member Role: Primary Care Nurse Name: Gela Orosco RN Position: [facility] [...] Associate Professional Member Role: PCP Address: Address: [address] [place] [address], [address] Name: Siddhartha Andino RN Position: [facility] RN Member Role: Primary Care Nurse Name: Pola Reid RN Position: [facility] RN Supshiela Member Role: [...] RN Member Role: Primary Care Nurse Name: Derda Lezama Position: [facility] RN [...] Member Role: Primary Care Nurse Address: Address: [address] [place] [address] [place] [address]- Name: Charito Vazquez [facility] Gibbons RN Position: [facility] SN [...] RN Position: [facility] Hospital Hamper Maker Machine Member Role: Primary Care Nurse Name: Atiya Mcintyre RN Position: [facility] RN Member Role: Primary Care Nurse Name: Elli Bender RN Position: [facility] ED RN W/OE and Tasks Member Role: Patient Care Provider Name: Holley Boudreaux DO Position: [facility] Resident Member Role: ED Resident Address: Address: [address] [place] [id number]- Name: Kirby Kowalski MD Position: [facility] ED Medicine MD Member Role: ED Attending Physician Address: Address: [address] [place] [address]- Care Team Related Persons Name: IBETH CORRAL Address: home [address] [address]
--- OUTSIDE RECORDS SUMMARY | 2023-04-11 15:25 | XMS_ITS | Continuity of Care Document ---
Author Name Unknown Organization [facility] Adult Address [address] [place] [address]- Care Team Providers Care Sourcing Manager Name Role Phone Luiz SALAS, Sonya Primary Care Physician Encounter [facility] Date(s): 10/08/22 - 11/07/22 [facility] Adult [address] [place] [id number]- Allergies, Adverse Reactions, Alerts Substance Reaction Severity [...] Given Patient Refuses 1Result Comment: [facility]: [id number] Medications albuterol-ipratropium 3 mg-0.5 mg/3 ml inhalation [...] Maintenance, 07/31/22 13:23:00 EDT, [facility], 178, cm, 07/23/22 11:32:00 EDT, Height, 72.5, kg, 03/08/22 4:29:00 EST, Dry Weight Start Date: 07/31/22 Status: Ordered atorvastatin 40 mg oral tablet 1 tablet, By Mouth, Daily at bedtime, # 28 tablet, 5 Refills, Maintenance, 07/31/22 13:23:00 EDT, [facility], 178, cm, 07/23/22 11:32:00 EDT, Height, [...] 13:50:00 EDT, Route to Pharmacy Electronically, [facility], 178, cm, 10/26/22 14:30:00 EDT, Height, [...] 0 Refills, Maintenance, 10/25/22 9:55:00 EDT, [facility], 178, cm, 10/25/22 7:25:00 EDT, Height, 79.5, [...] 13:25:00 EDT, Route to Pharmacy Electronically, [facility], 178, cm, 07/23/22 11:32:00 EDT, Height, 72.5, [...] Primary Care Nurse Name: Alicia Negron Position: [facility] RN [...] Professional Member Role: PCP Address: Address: [address] [place] [address], [address] [place] [address] Name: Pola Reid RN [facility] RN Position: [facility] SUNITHA RN W/OE and Tasks [...] Care Nurse Name: Chandni Gibbons RN Position: [facility] RN Member Role: Primary Care Nurse Name: Viry Zacarias RN Position: [facility] RN Member Role: Primary Care Nurse Name: Kerri Cunha RN Position: [facility] Hospital Driver Guard Member Role: Primary Care Nurse Name: Atiya Mcintyre RN Position: [facility] RN Member Role: Primary Care Nurse Care Team Related Persons Name: IBETH BRUNNER Address: home [address] [address] Name: IBETH CORRAL Address: [address] [address]
--- OUTSIDE RECORDS SUMMARY | 2023-04-11 15:25 | XMS_ITS | Continuity of Care Document ---
Author Name Unknown Organization [facility] Adult Address [address] [place] [address]- Care Team Providers Care Director Hardware Name Role Phone Luiz SALAS, Sonya Primary Care Physician Encounter [facility] Date(s): 11/21/21 - 12/21/21 [facility] Adult [address] [place] [phone]- Allergies, Adverse Reactions, Alerts Substance Reaction Severity [...] 10:38:00 EST, Route to Pharmacy Electronically, [facility]/pharmacy #[id number], Partial fill upon patient request if the [...] Team Personnel Name: Sonya Dee NP Address: [address] [place] [address], [address] [place], [place] [address]
--- OUTSIDE RECORDS SUMMARY | 2023-04-11 15:25 | XMS_ITS | Continuity of Care Document ---
Author Name Unknown Organization [facility] Address [address] [place] [id number]- Care Team Providers Care Perinatal Instructor Name Role Phone Luiz SALAS, Sonya Primary Care Physician [phone] Encounter [facility] Date(s): 08/03/22 - 08/04/[address] [address]- Encounter Diagnosis CAD (coronary artery disease)(Final) - 08/04/22 COPD without exacerbation(Final) - 08/04/22 Vitamin B12 deficiency(Final) - 08/04/22 Encephalopathy(Final) - 08/04/22 Neuropathy, leg(Final) - 08/04/22 Discharge Disposition: A-D/C Home Attending Physician: Feliciano Winkler MD Admitting Physician: Feliciano Winkler MD Referring Physician: Not on Staff, Referring [...] 05/26/20 Not Given Patient Refuses 1Result Comment: [facility] [place]: [id number] Medications Aspirin Low Dose 81 mg oral tablet, chewable 1 tablet, By Mouth, Daily, # 90 tablet, 1 Refills, Maintenance, 07/31/22 13:23:00 EDT, [facility], 178, cm, 07/23/22 11:32:00 EDT, Height, 72.5, kg, 03/08/22 4:29:00 EST, Dry Weight Start Date: 07/31/22 Status: Ordered atorvastatin 40 mg oral tablet 1 tablet, By Mouth, Daily at bedtime, # 28 tablet, 5 Refills, Maintenance, 07/31/22 13:23:00 EDT, [facility], 178, cm, 07/23/22 11:32:00 EDT, Height, 72.5, [...] 12:43:00 EDT, Route to Pharmacy Electronically, [facility], 178, cm, 07/23/22 11:32:00 EDT, Height, 72.5, [...] 0 Refills, Maintenance, 08/01/22 11:17:00 EDT, [facility], 178, cm, 07/23/22 11:32:00 EDT, [...] 13:25:00 EDT, [facility], cm, 07/23/22 11:32:00 EDT, Height, 72.5, kg, 03/08/22 4:29:00 EST, Dry Weight Start Date: 07/31/22 Status: Ordered magnesium oxide 400 mg oral tablet 1 tablet, By Mouth, Daily, # 30 tablet, 5 Refills, Maintenance, 07/18/22 8:15:00 EDT, [facility], 178, cm, 03/14/22 15:25:00 EST, Height, 72.5, kg, 03/08/22 4:29:00 EST, Dry Weight Start Date: 07/18/22 Stop Date: 01/14/23 Status: Ordered metFORMIN 1000 mg oral tablet 1 tablet, By Mouth, 2 times a day, # 180 tablet, 1 Refills, Maintenance, 07/31/22 13:25:00 EDT, [facility], 178, cm, 07/23/22 11:32:00 EDT, Height, 72.5, kg, 03/08/22 4:29:00 EST, Dry Weight Start Date: 07/31/22 Status: Ordered nicotine 21 mg/24 hr transdermal film, extended release 1 patch, Topically, Daily, # 30 patch, 0 Refills, Maintenance, 03/14/22 14:53:00 EST, Patch, [facility], Partial fill upon [...] capsule, 0 Refills, Maintenance, 08/02/22 7:26:00 EDT, [facility], 178, cm, 07/23/22 11:32:00 EDT, Height, [...] Active 1angioplasty 2000; 3 stents at [facility] 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 S/P Elective Coiling of Unruptured Aneurysm with Subsequent Left-Sided Weakness: Acute nonhemorrhagic infarct in the RIGHT posterior frontal lobe: Vital Signs Most recent to oldest [Reference Range]: 1 2 3 Height 178 cm (08/04/22 10:55 AM) 178 cm (08/03/22 6:42 PM) 178 cm (08/03/22 4:25 PM) Oxygen Saturation [94-100 %] 100 % (08/04/22 10:55 AM) 100 % (08/04/22 9:13 AM) 100 % (08/04/22 6:51 AM) Pulse Rate [55-90 bpm] 60 bpm (08/04/22 10:55 AM) 64 bpm (08/04/22 9:13 AM) 58 bpm (08/04/22 6:51 AM) Blood Pressure [90-138/55-84 mm Hg] 139/88mm Hg *H* (08/04/22 10:55 AM) 124/54mm Hg (08/04/22 9:13 AM) 112/62mm Hg (08/04/22 6:51 AM) Respiratory Rate [16-30 br/min] 18 br/min (08/04/22 10:55 AM) 16 br/min (08/04/22 9:13 AM) Temperature [96.8-100.4 DegF] 97.6 DegF (08/04/22 10:55 AM) 98.5 DegF (08/04/22 9:13 AM) 97.8 DegF (08/04/22 3:58 AM) Mode of Delivery (Oxygen) Room air (08/04/22 10:55 AM) Room air (08/04/22 9:13 AM) Room air (08/04/22 6:51 AM) Blood pressure sites Arm, right (08/04/22 10:55 AM) Arm, left (08/04/22 9:13 AM) Arm, right (08/04/22 6:51 AM) Temperature Route Oral (08/04/22 10:55 AM) Oral (08/04/22 9:13 AM) Oral (08/04/22 3:58 AM) Dry Weight 79.5 kg (08/04/22 10:55 AM) 79.5 kg (08/03/22 6:42 PM) 79.5 kg (08/03/22 4:25 PM) Dry Weight Obtained Via Patient/family s tated (08/03/22 4:25 PM) Social History Social History Type Response Smoking Status 10 or more cigarette s (1/2 pack or more)/day in last 30 days; Interested in cessation: No; Patient wants NRT during admission Yes; Tobacco use times per day: 1PPD; Number of years: 53; Total pack years: 53; Started at age: 13; entered on: 03/08/22 Sex Note * Yessica Lin MD: PERFORM, SIGN, VERIFY Event Display: Patient Education Handout Authored Date: [id number] * Yessica Lin MD: PERFORM Event Display: Patient Education Leaflets Authored Date: [id number] Peripheral Neuropathy ?? [id number] Peripheral Neuropathy Peripheral neuropathy is a set of symptoms caused by damage to the peripheral nerves. These nerves are in parts of the body beyond the brain and spinal cord. The condition often affects the arms or legs. It causes a change in physical feeling. Symptoms include weakness in the muscles, tingling, numbness, or shooting pains. Symptoms may be more common at night. Your skin may be extra sensitive to light touch or temperature changes. Peripheral neuropathy may be caused by: ??? Complications from a chronic disease such as diabetes ??? Infections caused by viruses or bacteria ??? Autoimmune disorders ??? Cancer ??? Chemo medicines to treat cancer ??? Injuries A lack of certain vitamins may also lead to it. It may also be caused by exposure to certain illegal drugs or chemicals. Several forms of neuropathy run in families (hereditary). Home care ??? Tell your healthcare provider about all medicines you take. This includes prescription and [id number] medicines, vitamins, and herbs. Ask if any of the medicines may be causing your problems. Don't make any changes to prescription medicines without talking with your healthcare provider first. ??? You may be prescribed medicines to help ease the tingling feeling or for pain. Take all medicines as directed. ??? A numb hand or foot may be more likely to be injured. To help protect it: o Always use oven mitts. o Test water temperature with an unaffected hand or foot. o Use caution when trimming nails. File sharp areas. o Wear shoes that fit well to prevent pressure points, blisters, and ulcers. o Inspect your hands and feet carefully at least once a week. This includes thesoles of your feet and between the toes. If you see red areas, sores, or other problems, tell your healthcare provider. ?? Follow-up care Follow up with your healthcare provider as advised. You may need more testing or assessment. ?? When to seek medical advice Call your healthcare provider right away if any of the following occur: ??? Redness, swelling, cracking, or ulcer on any numb area, especially the feet ??? New symptoms of numbness or muscle weaknessnumbness ??? Loss of bowel or bladder control ??? Slurred speech, confusion, or trouble speaking, walking, or seeing ?? Last Reviewed Date: 2021 ?? 1252-2611 [employer]. All rights reserved. This information is not intended as a substitute for professional medical care. Always follow your healthcare professional's instructions. ?? Patient Care team information Care Team Personnel Name: Alicia Negron Position: S RN Member Role: Primary Care Nurse Name: Hanna Dailey Position: [facility] RN Member Role: Primary Care Nurse Name: Gela Orosco RN Position: [facility] RN Member Role: Primary Care Nurse Name: Jessica Castrejon RN Position: [facility] RN Member Role: Primary Care Nurse Name: Hien Hidalgo RN Position: [facility] RN Member Role: Primary Care Nurse Name: Phuong Balderas RN Position: [facility] SN RN Member Role: Primary Care Nurse Name: Evelyn Mcnulty RN Position: [facility] RN Member Role: Primary Care Nurse Name: Sonya Dee NP Position: [facility] PCO Associate Professional Member Role: PCP Address: Address: [address] [place] [address], 3rd Floor [facility] [place], [place] [address] Name: Pola Reid RN Position: [facility] RN Supv Member Role: Primary Care Nurse Name: Betzy Beckford RN Position: [facility] RN Member Role: Primary Care Nurse Name: Karley Perry LPN Position: [facility] AMB Nurse Member Role: Primary Care Nurse Name: Zully Jara Position: [facility] RN Member Role: Primary Care Nurse Name: Yunior Bui RN Position: [facility] RN Member Role: Primary Care Nurse Name: Candace Liang RN Position: [facility] RN Member Role: Primary Care Nurse Name: Dedra Lezama Position: [facility] RN Member Role: Primary Care Nurse Name: Pat Fernando RN Position: [facility] RN Member Role: Primary Care Nurse Name: Randa Sagastume RN Position: [facility] RN Member Role: Primary Care Nurse Name: Mitra Patel Position: [facility] RN Member Role: Primary Care Nurse Name: Kacie Campbell RN Position: [facility] RN Member Role: Primary Care Nurse Name: Charito Vazquez RN Position: [facility] SUNITHA RN W/OE and Tasks Member Role: Primary Care Nurse Name: Dylan Bond RN Position: [facility] RN Member Role: Primary Care Nurse Name: Lydia Doherty RN Position: [facility] RN Member Role: Primary Care Nurse Name: Elie Davis RN Position: [facility] RN Member Role: Primary Care Nurse Name: Delfina Still RN Position: [facility] RN Member Role: Primary Care Nurse Name: Chandni Gibbons RN Position: [facility] RN Member Role: Primary Care Nurse Name: Rosio Gibbons RN Position: [facility] RN Member Role: Primary Care Nurse Name: Viry Zacarias RN Position: [facility] RN Member Role: Primary Care Nurse Name: Kerri Cunha RN Position: [facility] Hospital Card Feeder Member Role: Primary Care Nurse Name: Atiya Mcintyre RN Position: [facility] RN Member Role: Primary Care Nurse Name: Beverly Gilbert Position: [facility] ED TA [facility] Name: Feliicano Winkler MD Position: [facility] ED Medicine MD Member Role: Admitting Physician Address: Address: [address] [place] [address]- Name: Vidya Alexandre RN Position: [facility] ED RN W/OE and Tasks Member Role: Patient Care Provider Name: Yessica Lin MD Position: [facility] Resident Member Role: ED Resident Address: Address: [address] [place] [address]- Care Team Related Persons Name: IBETH BRUNNER Address: [address] Name: IBETH CORRAL Address: [address]
--- OUTSIDE RECORDS SUMMARY | 2023-04-11 15:25 | XMS_ITS | Continuity of Care Document ---
Author Name Unknown Organization [facility] Address [address] [place] [address]- Care Team Providers Care Personal Care Aide Name Role Phone Sonya eDe NP Primary Care Physician [place] [facility] - 07/31/[place] [facility] [address] [place] [id number]- Encounter Diagnosis Status post CVA(Discharge Diagnosis) - 07/30/21 Frequent falls(Discharge Diagnosis) - 07/30/21 Hypertension(Discharge Diagnosis) - 07/30/21 Attending Physician: Not on Staff, Attending MD [...] tablet, Refills 1, Route to Pharmacy Electronically, [id number], 178, cm, 05/11/21 8:52:00 EST, Height, 81, [...] tablet, By Mouth, 5 times a day, MARINE DRILLER checked., # 140 tablet, Refills 0, Tot. 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 S/P Elective Coiling of Unruptured Aneurysm with Subsequent Left-Sided Weakness: Acute nonhemorrhagic infarct in the RIGHT posterior frontal lobe: Diagnosis Diagnosis Type Effective Dates Health Status Cl inical Service Informant Status post CVA Discharge Diagnosis 07/30/21 Frequent falls Discharge Diagnosis 07/30/21 Hypertension Discharge Diagnosis 07/30/21 Vital Signs Most recent to oldest [Reference Range]: 1 Height 178 cm (07/24/21 4:10 PM) Oxygen Saturation [94-100 %] 98 % (07/24/21 4:10 PM) Pulse Rate [55-90 bpm] 86 bpm (07/24/21 4:10 PM) Blood Pressure [90-138/55-84 mm Hg] 87/5 4mm Hg *L* (07/24/21 4:10 PM) Temperature [96.8-100.4 DegF] 97.6 DegF (07/24/21 4:10 PM) Mode of Delivery (Oxygen) Room air (07/24/21 4:10 PM) Blood pressure sites Arm, left (07/24/21 4:10 PM) Temperature Route Oral (07/24/21 4:10 PM) Weight Obtained Via Standing scale (07/24/21 4:10 PM) Social History Social History Type Response Smoking Status Smoker, current stat us unknown; Type: Cigarettes; Other: 1/2-1 pk; entered on: 05/10/20 Sex
--- OUTSIDE RECORDS SUMMARY | 2023-04-11 15:25 | XMS_ITS | Continuity of Care Document ---
Author Name Unknown Organization [facility] Address [address] [place] [address]- Care Team Providers Care Weather Strip Mechanic Name Role Phone Sonya Dee NP Primary Care Physician [place] [facility] [place](s[place] 06/15/20 - 07/15/20 [facility] [address] [place] [phone]- Allergies, Adverse Reactions, Alerts Substance Reaction Severity [...] 06/14/20 10:21:00 EST, Tablet, [id number], Partial fill upon patient request if the prescription is fora schedule II opioid drug., 177.8, cm, 06/14/20 9:3... Start Date: 06/14/20 Stop Date: 12/11/20 Status: Ordered lisinopril 20 mg oral tablet 20 mg, 1, tablet, By Mouth, Daily, # 90 tablet, Refills 0, Tot. Refills 0, Maintenance, 05/12/20 9:54:00 EST, Route to Pharmacy Electronically, [id number], Partial fill upon patient request if the prescription is for a schedule II opi... Start Date: 05/12/20 Stop Date: 08/10/20 Status: Ordered metFORMIN 1000 mg oral tablet 1 tablet = 1,000 mg, By Mouth, 2 times a day, # 60 tablet, 0 Refills, Maintenance, 03/15/20 12:57:00 EST, Tablet, [facility], Partial fill upon patient request, 178, cm, 03/15/20 11:15:00 EST, Height, 105, kg, 03/12/20 6:12:00 EST, Dry W... Start Date: 03/15/20 Status: Ordered ofloxacin 0.3% otic solution See Instructions, 5 drops Right ear once daily x 7 days, # 10 mL, Refills 0, Tot. Refills 0, Maintenance, 03/15/20 14:25:00 EST, Instructions Replace Required Details, Route to Pharmacy Electronically, [facility], Partial fill upon patie... Start Date: 03/15/20 Status: Ordered oxyCODONE 5 mg oral tablet See Instructions, 28 days one tablet 5 x day, # 140 tablet, Refills 0, Tot. Refills 0, Maintenance,07/13/20 15:15:00 EDT, Instructions Replace Required Details, Route to Pharmacy Electronically, [id number], Partial fill upon patient... Start Date: 07/13/20 Status: Ordered Probiotic Formula (Bacillus Coagulans) oral capsule 1 capsule, By Mouth, Daily, # 10 capsule, 0 Refills, Maintenance, 04/14/20 11:39:00 EST, Capsule, [facility][id number], Partial fill upon patient request if the prescription is for a schedule II opioid drug., 1 capsule By Mouth Daily, 178, cm,... Start Date: 04/14/20 Status: Ordered simvastatin 40 mg oral tablet 40 mg, 1, tablet, By Mouth, Daily at bedtime, # 30 tablet, Refills 0, Tot. Refills 0, Maintenance, 03/15/20 12:20:00 EST, Route to Pharmacy Electronically, [facility], Partial fill uponpatient request, 178, cm, 03/15/20 11:15:00 EST, He... Start Date: 03/15/20 Status: Ordered Problem List Condition Effective Dates Status Health Status Inform ant Benign hypertension(Confirmed) Active CAD (coronary artery disease)(Confirmed) 1 Active Chronic lower back pain(Confirmed) Active Diabetes mellitus(Confirmed) Active Encephalopathy(Confirmed) Active Dyslipidemia(Confirmed) Active 1angioplasty 2000; 3 stents at [facility] Social History Social History Type Response Smoking Status Smoker, current stat us unknown; Type: Cigarettes; Other: 1/2-1 pk; entered on: 05/10/20 Sex
--- OUTSIDE RECORDS SUMMARY | 2023-04-11 15:26 | XMS_ITS | Continuity of Care Document ---
Author Name Unknown Organization [facility] Address [address] [place] [address]- Care Team Providers Care Master Welder Name Role Phone Sonya Dee NP Primary Care Physician [place] [facility] [place]18[place] 11[place]17/21 [facility] [address] [place] [phone]- Allergies, Adverse Reactions, Alerts Substance Reaction Severity [...] 28 tablet, 0 Refills, [facility], 160, cm, 10/22/21 7:52:00 EDT, Height, [...] Pharmacy Electronically, [id number], 178, cm, 05/11/21 8:52:00 EST, Height, 81, [...] 10/22/21 16:00:00 EDT, Route to Pharmacy Electronically, [facility], Partial fill upon patient request if the prescription... Start Date: 10/22/21 Stop Date: 10/25/21 Status: Ordered Tums 500 mg oral tablet, chewable 500 mg, 1, tablet, Chew, 3 times a day, PRN, # 90 tablet, Refills 5, Tot. Refills 5, Maintenance, Dyspepsia, 05/02/21 10:38:00 EST, Route to Pharmacy Electronically, [facility]/pharmacy #[id number], Partial fill upon patient request if [...] 11/07/20 Active 1angioplasty 2000; 3 stents at [place] [...]
--- OUTSIDE RECORDS SUMMARY | 2023-04-11 15:26 | XMS_ITS | Continuity of Care Document ---
Author Name Unknown Organization [facility] Address [address] [place] [id number] Care Team Providers Care Checkering Machine Adjuster Name Role Phone Luiz SALAS, Sonya Primary Care Physician Encounter [facility] [place] Date(s): 03/31/22 - 04/02/[address] [address]- Encounter Diagnosis Coarse tremors(Final) - 04/01/22 Discharge Disposition: A-D/C Home Attending Physician: Esau Barr MD Admitting Physician: Wilfredo Urias MD Referring [...] 05/26/20 Not Given Patient Refuses 1Result Comment: [facility]: [id number] Medications Aspirin Low Dose 81 mg oral tablet, chewable 1 tablet, By Mouth, Daily, # 28 tablet, 12 Refills, [facility], 178, cm, 11/10/21 9:32:00 EDT, Height, 77.5, kg, 11/10/21 9:32:00 EDT, Dry Weight Start Date: 11/22/21 Status: Ordered atorvastatin 80 mg oral tablet 1 tablet = 80 mg, By Mouth, Daily at bedtime, # 30 tablet, 0 Refills, Maintenance, 03/14/22 14:51:00 EST, Tablet, [facility] 3, Partial fill upon patient [...] 03/14/22 14:52:00 EST, Route to Pharmacy Electronically, [facility] 3, Partial fill upon patient [...] 0 Refills, Maintenance, 03/14/22 14:53:00 EST, Patch, [facility], Partial fill upon patient [...] Confirmed Active 1angioplasty 2000; 3 stents at [facility] 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 S/P Elective Coiling of Unruptured Aneurysm with Subsequent Left-Sided Weakness: Acute nonhemorrhagic infarct in the RIGHT posterior frontal lobe: Results Radiology Reports * Exam Date Time Procedure Performing Provider Status 04/01/22 3:[address] Angio Neck Paul Mata; Auth (V erified) Notes: (CT Angio Neck) Reason For Exam: Aneurysm, neck vessel(s);Other: RESULT: CT Angio Neck CT Angio Head, CT Angio Neck Hx of Present Illness: pt presents with episodes of shaking since last night. pt appears tremulous while sitting in chair. states he had a similar situation 1 year ago. denies numbness tingling. c o midsternal chest pain; Reason: Other:; Neuro deficit, acute, stroke suspected; Clinical Question(s): Other:; Hematoma Aneurysm; Order Comment: / Other: TECHNIQUE: CT angiogram of the [...] exposure parameters. RADIATION DOSE PARAMETERS: CTDIvol Body: 16.20 mGy, DLP Body: 623 mGy*cm. CTDIvol Head: 46.40 mGy, DLP Head: 772 mGy*cm. COMPARISON: Noncontrast CT head performed concurrently. CTA of the head and neck 03/07/2022 FINDINGS: CTA OF THE NECK: Arch: There is a three vessel aortic arch. There is soft plaque involving the proximal great vessels arising from the aortic arch. Mild-moderate narrowing of the proximal left subclavian artery. The right subclavian artery is patent. Right carotid system: Mild soft plaque of the right common carotid artery is noted without significant stenosis. Calcification and soft plaque of the proximal right ICA with stenosis measuring approximately 10% by NASCET criteria. Left carotid system: Soft plaque of the proximal left common carotid artery with stenosis measuringup to 40% by NASCET criteria. Additional scattered foci of soft plaque are also present elsewhere within the left common carotid artery with mild stenosis. Soft plaque of the proximal left ICA near its origin is again noted measuring up to 3.5 mm in thickness. Moderate stenosis of the proximal leftICA measures 60% by NASCET criteria. This is not significantly changed. Right vertebral: The origin is degraded by motion. At least mild narrowing is again noted. Moderatestenosis of the mid V2 segment is again noted. Left vertebral: Multifocal moderate to moderate-severe stenoses of the extracranial are similar. Other: Soft tissues and bones: No evidence of lymphadenopathy or mass. The thyroid is unremarkable. The visualized lungs are clear. Degenerative changes of the cervical spine. CTA OF THE HEAD: Anterior circulation: The intracranial internal carotid arteries are patent. Multifocal calcifications are present. The ICA termini are maintained. The A1 and A2 segments of the anterior cerebral arteries are patent. The M1 segment of the left middle cerebral artery and left M2 MCA branches are patent. The M1 segment of the right middle cerebral arteries patent, but the distal MCA and anterior branchorigins are obscured by streak artifact from a bifurcation aneurysm coil mass. The more distal MCA branches are unremarkable. Posterior circulation: The right vertebral artery is patent. Calcification and moderate-severe stenosis of the left vertebral artery. The PICA origins are patent. The basilar artery is patent, but congenitally small, which is probably due to the presence of a near type right posterior cerebral artery, which is patent. The left posterior cerebral artery is patent. Veins: Major dural venous sinuses are patent. Other: Soft tissues and bones: Chronic right frontal encephalomalacia with compensatory dilatation of the frontal horn of the right lateral ventricle. There have been lens extractions bilaterally. Right maxillary sinus retention cyst. IMPRESSION: 1. No acute intracranial large vessel occlusion. The distal M1 segment of the right middle cerebralartery remains obscured by an adjacent MCA aneurysm coil mass. 2. 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 3. Moderate stenosis of the proximal left internal carotid artery measuring 60% by NASCET criteria.No significant change. 4. Multifocal extracranial vertebral artery stenoses. A preliminary report was issued to the emergency room by the [facility] service at 4:46 AM. WSN: [id number] Ordering Physician: Maxi Lowe Dictated By: Xavier Mcduffie MD Dictated Date/Time: 04/01/22 12:45 p Reviewed By: Xavier Mcduffie MD Signed By: Xavier Mcduffie MD Signed Date/Time: 04/01/22 12:45 pm Transcribed By: ANDREAS Transcribed Date/Time: 04/01/22 12:26 pm * Exam Date Time Procedure Performing Provider Status 04/01/22 3:[address] Angio Head Paul Mata; Auth (V erified) Notes: (CT Angio Head) Reason For Exam: Neuro deficit, acute, stroke suspected;Other: RESULT: CT Angio Head CT Angio Head, CT Angio Neck Hx of Present Illness: pt presents with episodes of shaking since last night. pt appears tremulous while sitting in chair. states he had a similar situation 1 year ago. denies numbness tingling. c o midsternal chest pain; Reason: Other:; Neuro deficit, acute, stroke suspected; Clinical Question(s): Other:; Hematoma Aneurysm; Order Comment: / Other: TECHNIQUE: CT angiogram of the [...] exposure parameters. RADIATION DOSE PARAMETERS: CTDIvol Body: 16.20 mGy, DLP Body: 623 mGy*cm. CTDIvol Head: 46.40 mGy, DLP Head: 772 mGy*cm. COMPARISON: Noncontrast CT head performed concurrently. CTA of the head and neck 03/07/2022 FINDINGS: CTA OF THE NECK: Arch: There is a three vessel aortic arch. There is soft plaque involving the proximal great vessels arising from the aortic arch. Mild-moderate narrowing of the proximal left subclavian artery. The right subclavian artery is patent. Right carotid system: Mild soft plaque of the right common carotid artery is noted without significant stenosis. Calcification and soft plaque of the proximal right ICA with stenosis measuring approximately 10% by NASCET criteria. Left carotid system: Soft plaque of the proximal left common carotid artery with stenosis measuringup to 40% by NASCET criteria. Additional scattered foci of soft plaque are also present elsewhere within the left common carotid artery with mild stenosis. Soft plaque of the proximal left ICA near its origin is again noted measuring up to 3.5 mm in thickness. Moderate stenosis of the proximal leftICA measures 60% by NASCET criteria. This is not significantly changed. Right vertebral: The origin is degraded by motion. At least mild narrowing is again noted. Moderatestenosis of the mid V2 segment is again noted. Left vertebral: Multifocal moderate to moderate-severe stenoses of the extracranial are similar. Other: Soft tissues and bones: No evidence of lymphadenopathy or mass. The thyroid is unremarkable. The visualized lungs are clear. Degenerative changes of the cervical spine. CTA OF THE HEAD: Anterior circulation: The intracranial internal carotid arteries are patent. Multifocal calcifications are present. The ICA termini are maintained. The A1 and A2 segments of the anterior cerebral arteries are patent. The M1 segment of the left middle cerebral artery and left M2 MCA branches are patent. The M1 segment of the right middle cerebral arteries patent, but the distal MCA and anterior branchorigins are obscured by streak artifact from a bifurcation aneurysm coil mass. The more distal MCA branches are unremarkable. Posterior circulation: The right vertebral artery is patent. Calcification and moderate-severe stenosis of the left vertebral artery. The PICA origins are patent. The basilar artery is patent, but congenitally small, which is probably due to the presence of a near type right posterior cerebral artery, which is patent. The left posterior cerebral artery is patent. Veins: Major dural venous sinuses are patent. Other: Soft tissues and bones: Chronic right frontal encephalomalacia with compensatory dilatation of the frontal horn of the right lateral ventricle. There have been lens extractions bilaterally. Right maxillary sinus retention cyst. IMPRESSION: 1. No acute intracranial large vessel occlusion. The distal M1 segment of the right middle cerebralartery remains obscured by an adjacent MCA aneurysm coil mass. 2. 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 3. Moderate stenosis of the proximal left internal carotid artery measuring 60% by NASCET criteria.No significant change. 4. Multifocal extracranial vertebral artery stenoses. A preliminary report was issued to the emergency room by the [facility] service at 4:46 AM. WSN: [id number] Ordering Physician: Maxi Lowe Dictated By: Xavier Mcduffie MD Dictated Date/Time: 04/01/22 12:45 p Reviewed By: Xavier Mcduffie MD Signed By: Xavier Mcduffie MD Signed Date/Time: 04/01/22 12:45 pm Transcribed By: ANDREAS Transcribed Date/Time: 04/01/22 12:26 pm * Exam Date Time Procedure Performing Provider Status 04/01/22 4:50 AM Chest 2 Views Frontal and Lat Nelly Gaines; Auth (Verified) Notes: (Chest 2 Views Frontal and Lat) Reason For Exam: Shortness of Breath, Fever;Other: RESULT: Chest 2 Views Frontal and Lat Chest 2 Views Frontal and Lat Hx of Present Illness: pt presents with episodes of shaking since last night. pt appears tremulous while sitting in chair. states he had a similar situation 1 year ago. denies numbness tingling. c o midsternal chest pain; Reason: Other:; Shortness of Breath, Fever; Clinical Question(s): Pneumonia COMPARISON: 03/07/2022. FINDINGS: LINES AND TUBES: None. LUNGS AND PLEURA: Clear lungs. Evidence of chronic central bronchial wall thickening. Normal pulmonary vascularity. No pleural effusion. No pneumothorax. HEART, MEDIASTINUM AND MAHESH: Heart is normal in size. Normal mediastinal and hilar contour. BONES AND SOFT TISSUES: No acute abnormality. IMPRESSION: No acute abnormality. Possible chronic bronchitis. WSN: [id number] Ordering Physician: Maxi Lowe Dictated By: Thor Hart MD Dictated Date/Time: 04/01/22 7:34 am Reviewed By: Thor Hart MD Signed By: Thor Hart MD Signed Date/Time: 04/01/22 7:34 am Transcribed By: ANDREAS Transcribed Date/Time: 04/01/22 7:31 am * Exam Date Time Procedure Performing Provider Status 04/01/22 3:[address] Head/Brain W/O Contrast Eb Mata; Auth (Verified) Notes: (CT Head/Brain W/O Contrast) Reason For Exam: Neuro deficit, acute, stroke suspected;Other: RESULT: CT Head/Brain W/O Contrast CT Head/Brain W/O Contrast Hx of Present Illness: pt presents with episodes of shaking since last night. pt appears tremulous while sitting in chair. states he had a similar situation 1 year ago. denies numbness tingling. c o midsternal chest pain; Reason: Other:; Neuro deficit, acute, stroke suspected; Clinical Question(s): Other:; Hematoma Infarction. TECHNIQUE: Noncontrast head CT using axial technique and reconstructed in axial and coronal planes.Weight-based protocol using automatic tube modulation was used to optimize exposure parameters. CTDIvol Body: 16.20 mGy, DLP Body: 623 mGy*cm. CTDIvol Head: 46.40 mGy, DLP Head: 772 mGy*cm. COMPARISON: CT head 03/07/2022, 01/10/2022, MRI brain 03/08/2022 FINDINGS: BRAIN and EXTRA-AXIAL SPACES: No parenchymal hemorrhage, midline shift or mass effect. Encephalomalacia in the right frontal lobe again noted. Paulino-white matter differentiation is otherwise well preserved. No acute infarct. Negative insular ribbon sign. Atherosclerotic vascular calcification of the carotid arteries but negative hyperdense vessel sign. Status post right MCA aneurysm coiling. Moderate prominence of the ventricles and sulci consistent with parenchymal volume loss. Moderate low-density white matter changes. Old lacunar infarcts at the left basal ganglia. No subarachnoid hemorrhage, subdural or epidural collections. CALVARIUM, SKULL BASE AND SOFT TISSUES: No fractures or suspicious bony lesions. The paranasal sinuses and mastoid air cells are clear. Visualized orbits and globes are intact. The extracranial soft tissues are unremarkable. IMPRESSION: No acute intracranial abnormality. Chronic right frontal lobe infarct. I have personally reviewed the images and I agree with this report. WSN: [id number] Ordering Physician: Maxi Lowe Dictated By: Parish Smith MD Dictated Date/Time: 04/01/22 7:12 am Reviewed By: Thor Hart MD Signed By: Thor Hart MD Signed Date/Time: 04/01/22 7:17 am Transcribed By: ANDREAS Transcribed Date/Time: 04/01/22 4:10 am Vital Signs Most recent to oldest [Reference Range]: 1 2 3 Oxygen Saturation [94-100 %] 95 % (04/02/22 11:03 AM) 98 % (04/02/22 8:12 AM) 98 % (04/02/22 1:30 AM) Pulse Rate [55-90 bpm] 58 bpm (04/02/22 11:03 AM) 58 bpm (04/02/22 8:12 AM) 58 bpm (04/02/22 4:27 AM) Blood Pressure [90-138/55-84 mm Hg] 154/70mm Hg *H* (04/02/22 11:03 AM) 168/63mm Hg *H* (04/02/22 8:12 AM) 151/76mm Hg *H* (04/02/22 4:27 AM) Respiratory Rate [16-30 br/min] 16 br/min (04/02/22 11:03 AM) 16 br/min (04/02/22 8:12 AM) 18 br/min (04/02/22 4:27 AM) Temperature [96.8-100.4 DegF] 97.9 DegF (04/02/22 11:03 AM) 98.6 DegF (04/02/22 8:12 AM) 97.7 DegF (04/01/22 11:58 PM) Mode of Delivery (Oxygen) Room air (04/02/22 11:03 AM) Room air (04/02/22 8:12 AM) Room air (04/02/22 1:30 AM) Blood pressure sites Arm, left (04/02/22 11:03 AM) Arm, left (04/02/22 8:12 AM) Arm, left (04/01/22 4:07 PM) Temperature Route Oral (04/02/22 11:03 AM) Oral (04/02/22 8:12 AM) Oral (04/01/22 11:58 PM) Social History Social History Type Response Smoking Status 10 or more cigarette s (1/2 pack or more)/day in last 30 days; Interested in cessation: No; Patient wants NRT during admission Yes; Tobacco use times per day: 1PPD; Number of years: 53; Total pack years: 53; Started at age: 13; entered on: 03/08/22 Sex Admission evaluation note * Rocio Elizondo: PERFORM Event Display: Admission Note Authored Date: Patient: ??JOHN SANDHU ? Age:??66 Years?Sex:??Male?:??1955?? Chief Complaint/Reason for Consultation muscle spasms, weakness History of Present Illness Mr. 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 Hx: Patient (somewhat??reliable), girlfriend Montse via phone,??chart review. ?? Reportedly, last admission, John had an episode in which he had shaking tremors. ??Per both he and his girlfriend,??nothing ever came of it, and eventually resolved without intervention??(only intervention was a warm blanket). ?? Yesterday??morning (03/31),??he began to develop a small tremor which encompasses bilateral upper and lower extremities as well as??tongue and neck.?? This progressed throughout the day.?? Was reportedly worsened by??movement and??improved (though not??gone) with rest.?? He had difficulty ambulating, and given that it was getting worse and worse,??decided to present to ED for further evaluation.?? No associated urinary/bowel incontinence, LOC, presyncope, chest pain, fever.?? Was not using rescue inhaler at the time. ?? ED Course: - Clinically: Tremor worsening with movement - Imaging: ? -- CXR nonacute ? -- CT/ CTA H/N: (Xiagn coon) nonacute, none stenosis/frontal lobe infarct - Labs: Mag 1.5, otherwise CBC, CMP, UA unremarkable - Intervention: ASA 324, mag repletion ?? At the time of my exam,??I first visualized him??sleeping.?? He had no tremulous activity.?? Once awoken,??he tells me that he still had a slight tremor??though much improved from??presentation. No other complaints. Review of Systems A full review of systems was completed and is otherwise negative except as mentioned in history of present illness. Objective ?? Physical Exam Temperature?98.1 ?(11:54) Systolic Blood Pressure?120 ?(11:54) Diastolic Blood Pressure?75 ?(11:54) Pulse?58 ?(11:54) SpO2?22 ?(11:54) Respiratory Rate?18 ?(11:54) ?? General: Alert, NAD. HEENT: Normocephalic.?? Visible fasciculations of tongue??/chin which are in tune with??apparent SCM??muscle spasm.?? Improves with swallow/talking. Respiratory: Clear to auscultation. No wheezing, rales or rhonchi. Cardiovascular: RRR. No murmurs, rubs or gallops. Gastrointestinal: Abdomen soft, non-tender, non-distended. + bowel sounds. Neurologic: Cranial nerves II-XII grossly intact. No focal neurological deficits. Moves all extremities spontaneously. Sensation intact bilaterally. ??Finger-nose??with slight intention tremor??bilaterally, ceased with rest.?? ignr-zq-myax intact bilaterally. ??Strength against resistance 5/5 BUE, BLE. 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 ??No pronator drift. ??Gait not assessed. Skin: No rashes or lesions. Extremities: No cyanosis or clubbing. No gross deformities. Normal range of motion. Psychiatric: somewhat sleepy though awake & appropriately responding Assessment/Plan Assessment:??Mr. Sandhu is a 66 yo M with PMHx CVA (residual L deficit), elective coiling R MCA aneurysm October 2020 c/b R superior dicision/maximiliano-insular CVA, TIA, vascular dementia, HTN, CAD, T2DM, HLD, COPD, frequent falls who presents to [facility] with c/o full body tremors x 1 day ?? Coarse tremors (G25.2) p/w 1 day full body tremor (worsened by??movement, relieved by rest) No??urinary/bowel incontinence, tongue bite, LOC, less suspicious for seizures etiology: Mag level 1.5 (?etiology, improving) // deconditioning (rec rehab last admit, went home cservices) ? - Appears to be improving after mag repletion,???Etiology ? - Check TSH, B12, folic acid ?? Frequent falls (R29.6):??ambulates with cane/walker at baseline. PT consult ?? CHRONIC MEDICAL CONDITIONS: HLD (hyperlipidemia) (E78.5):??Continue statin?? HTN (hypertension) (I10):??Continue lisinopril T2DM (type 2 diabetes mellitus) (E11.9):??Metformin on hold, SSI/POC TID/nightly CAD (coronary artery disease) (I25.10):??Continue aspirin, statin, Plavix, ACEI COPD without exacerbation (J44.9):??Rescue inhaler??PRN Hx CVA: residual L deficit (though power intact), continue ASA,??plavix, statin Vascular dementia: noted ? Quality Measures Code Status: Full Diet: Diabetic DVT PPX: Lovenox SC OMN: Pending course, potential DC tomorrow ?? Last Family Update: girlfrieneb Willard updated via phone 04/01 ?? [This note was completed via Dragon Dictation. Please do not hesitate to contact the author for clarification of any unintentional error should it be needed.] Histories Allergies Allergies ?(Active and Proposed Allergies [...] B1 100 mg oral tablet)?1?tablet?By Mouth?Daily ? Inpatient Medications Medications (25) Active SCHEDULED: (17) Ascorbic Acid 250 mg Tablet (Vitamin C 500 mg oral tablet) ??500 mg, By Mouth, Daily Aspirin 81 mg EC Tablet (aspirin 81 mg oral delayed release tablet) ??81 mg, By Mouth, Daily Atorvastatin 80 mg Tablet (atorvastatin 80 mg oral tablet) ??80 mg, By Mouth, Daily at bedtime Clopidogrel 75 mg Tablet (clopidogrel 75 mg oral tablet) ??75 mg, By Mouth, Daily Enoxaparin 40 mg Inj (Enoxaparin Inj) ??40 mg 0.4 mL, Subcutaneous Injection, Daily Folic Acid 1 mg Tablet (folic acid 1 mg oral tablet) ??1 mg, By Mouth, Daily Insulin Lispro 100 units/mL Inj (3mL) (Insulin LISPRO Sliding Scale) ??2-10 units, Subcutaneous Injection, Every 6 hours Insulin Lispro 100 units/mL Inj (3mL) (Insulin LISPRO Sliding Scale) ??2-10 units, Subcutaneous Injection, 3 times a day before meals Lisinopril 5 mg Tablet (Zestril 5 mg oral tablet) ??5 mg, By Mouth, Daily Magnesium Oxide 400 mg Tablet (magnesium oxide 400 mg oral tablet) ??400 mg, By Mouth, Daily NaCl 0.9% Flush 3ml (NaCL 0.9% Flush) ??3 mL, IV Push, Every 8 hours Nicotine 21 mg / 24 hour Patch (Nicotine Topical) ??21 mg, Topically, Daily Pantoprazole 40 mg EC Tablet (pantoprazole 40 mg oral delayed release tablet) ??40 mg, By Mouth, Daily Remove Patch (Remove ??Patch) ??1 each, Topically, Daily Sertraline 25 mg Tablet (sertraline 25 mg oral tablet) ??25 mg, By Mouth, Daily Thiamine 100 mg Tablet (Vitamin B1 100 mg oral tablet) ??100 mg, By Mouth, Daily Vitamin B-12 ??1000 mcg Tablet (cyanocobalamin 1000 mcg oral tablet) ??1,000 mcg, By Mouth, Daily CONTINUOUS: (0) PRN: (8) Acetaminophen 325 mg Tablet (Acetaminophen Tablet) ??650 mg, By Mouth, Every 4 hours Calcium Carbonate 500 mg (Calcium 200 mg) Chewable Tablet (calcium carbonate 500 mg (200 mg elemental calcium) oral tablet, chewable) ??500 mg 1 tablet, Chew, 3 times a day Dextromethorphan-Guaifenesin 20 mg-200 mg/10 mL Liqu UD [...] Recent Labs BLOOD COUNT & DIFF WBC 5.3 k/mm3 ()?? 04/01/2022 00:12 RBC 3.95 m/mm3 (Low)?? 04/01/2022 00:12 Hgb 12.6 Gm/dL (Low)?? 04/01/2022 00:12 Hct 37.8 % (Low)?? 04/01/2022 00:12 MCV 95.7 femtoliters (High)?? 04/01/2022 00:12 MCH 31.9 pg ()?? 04/01/2022 00:12 MCHC 33.3 g/dL ()?? 04/01/2022 00:12 Platelet Count 206 k/mm3 ()?? 04/01/2022 00:12 RDW-SD 42.1 femtoliters ()?? 04/01/2022 00:12 MPV 8.6 femtoliters (Low)?? 04/01/2022 00:12 Nucleated RBC (Automated) 0.0 #/100 WBC'S ()?? 04/01/2022 00:12 Abs. NRBC 0.0 k/mm3 ()?? 04/01/2022 00:12 Abs. Neut 2.7 k/mm3 ()?? 04/01/2022 00:12 Abs. Lymph 2.0 k/mm3 ()?? 04/01/2022 00:12 Abs. [place] 0.6 k/mm3 ()?? 04/01/2022 00:12 Abs. Eo 0.1 k/mm3 ()?? 04/01/2022 00:12 Abs. Baso 0.0 k/mm3 ()?? 04/01/2022 00:12 Neut % 50.2 % ()?? 04/01/2022 00:12 Lymph % 36.7 % ()?? 04/01/2022 00:12 [place] % 10.4 % ()?? 04/01/2022 00:12 Eos % 1.7 % ()?? 04/01/2022 00:12 Baso % 0.8 % ()?? 04/01/2022 00:12 Imm Gran 0.2 % ()?? 04/01/2022 00:12 Abs. Imm Gran 0.0 k/mm3 ()?? 04/01/2022 00:12 ?? CHEM GENERAL Sodium 145 mmol/L ()?? 04/01/2022 00:12 Potassium 4.0 mmol/L ()?? 04/01/2022 00:12 Chloride 106 mmol/L ()?? 04/01/2022 00:12 Bicarbonate Level 29 mmol/L ()?? 04/01/2022 00:12 Anion Gap 10 ()?? 04/01/2022 00:12 Glucose Level 120 mg/dL (High)?? 04/01/2022 00:12 Glucose, POC 99 mg/dL ()?? 04/01/2022 08:43 BUN 12 mg/dL ()?? 04/01/2022 00:12 Creatinine-Blood 0.6 mg/dL (Low)?? 04/01/2022 00:12 Estimated GFR Creatinine 108 ML/MIN/1.73 M2 ()?? 04/01/2022 00:12 Calcium 9.7 mg/dL ()?? 04/01/2022 00:12 Phosphorus 3.5 mg/dL ()?? 04/01/2022 00:12 Magnesium 2.0 mg/dL ()?? 04/01/2022 11:50 ?? TOXICOLOGY/TDM Ethanol, Serum or Plasma NONE DETECTED mg/dL ()?? 04/01/2022 00:12 ?? UA/URINALYSIS Appear/Color, Urine YELLOW ()?? 04/01/2022 06:40 Specific [place], Urine >1.050 (High)?? 04/01/2022 06:40 pH, Urine 7.0 ()?? 04/01/2022 06:40 Albumin, Urine 1+ (Abnormal)?? 04/01/2022 06:40 Glucose, Urine NEGATIVE ()?? 04/01/2022 06:40 Ketones, Urine NEGATIVE ()?? 04/01/2022 06:40 Bilirubin, Urine NEGATIVE ()?? 04/01/2022 06:40 Hemoglobin, Urine NEGATIVE ()?? 04/01/2022 06:40 Nitrite, Urine NEGATIVE ()?? 04/01/2022 06:40 Leukocyte, Urine NEGATIVE ()?? 04/01/2022 06:40 Urobilinogen 2 mg/dL (Abnormal)?? 04/01/2022 06:40 WBC's, Urine <1 /HPF ()?? 04/01/2022 06:40 RBC's, Urine 2 /HPF ()?? 04/01/2022 06:40 Hold Urine Culture Testing available 48 hours from time of collection. ()?? 04/01/2022 06:40 ?? VIROLOGY COVID-19 POC Result NEGATIVE ()?? 03/31/2022 23:18 ? EKG study * Event Display: ECG 12-Lead Authored Date: Please click on pdf link to open report * Event Display: ECG 12-Lead Authored Date: Ventricular Rate: 61 BPM Atrial Rate: 375 BPM QRS Duration: 126 ms Q-T Interval: 448 ms QTC Calculation(Bazett): 450 ms R Trent: 93 degrees T Trent: 54 degrees Baseline artifact limits ECG interpretation Undetermined rhythm Right bundle branch block Abnormal ECG When compared with ECG of 07-MAR-2022 19:03, Baseline artifact limits ECG interpretation Confirmed by FLOYD SAVAGE, [facility] ([id number]) on 04/02/2022 11:48:48 AM [place]: FLOYD SAVAGE,[facility] Progress note * Gino GARAY, Michelle J: PERFORM, SIGN, VERIFY Event Display: Progress Note Hospital Authored Date: Patient: JOHN SANDHU Age: 66 years Sex: Male : 1955 Associated Diagnoses: None Author: Michelle Christian RN Discharge Plan Case Management Discharge Plan : Case Management Discharge Plan Data 04/02/2022 11:45 EST Discharge Level of Care at Discharge Homehealth/VNA Discharge VNA/Hospice/Home Care [facility] 04/02/2022 11:40 EST Discharge Level of Care at Discharge Homehealth/VNA Discharge VNA/Hospice/Home Care [facility] Discharge Transportation Arranged [facility] [address] [place] [address] Discharge Arranged Transport Date/Time 04/02/2022 12:00 Mode of Transportation Arranged [facility] Categories #1 Occupational Therapy, Physical Therapy, Group Home Service Comments #1 [facility] is aware of your discharge today, please call them with any question. Name of Person Notified of Transfer [facility] pts /hcp Note * Cortney SAVAGE, Esau: PERFORM Event Display: Discharge/Transfer Note Hospital Authored Date: Patient: ??JOHN SANDHU ? Age:??66 Years?Sex:??Male?:??1955?? Patient Information Discharge Location: [facility] Primary Care Physician: Sonya Dee NP Admit Date/Time: 03/31/22 22:47 Discharge Disposition Discharge Disposition: Home with Home Health Discharge Diagnosis Coarse tremors (G25.2) Frequent falls (R29.6) Hx of multiple strokes / lacunar strokes / areas of encephalomalacia (Z86.73) Encephalomalacia (G93.89) T2DM (type 2 diabetes mellitus) (E11.9) HTN (hypertension) (I10) HLD (hyperlipidemia) (E78.5) CAD (coronary artery disease) (I25.10) COPD without exacerbation (J44.9) Depression with anxiety (F41.8) GERD (gastroesophageal reflux disease) (K21.9) Vascular dementia (F01.50) Benign hypertension CAD (coronary artery disease) Chronic [...] B1 100 mg oral tablet)?1?tablet?By Mouth?Daily ? Allergies Allergies ?(Active and Proposed Allergies Only) Other Food Allergy? (Severity: Unknown severity, Onset: Unknown) ?Reactions: N&V - Nausea and vomiting ?Comments: Calf Liver sulfa drugs? (Severity: Unknown severity, Onset: Unknown) penicillin? (Severity: Unknown severity, Onset: Unknown) ?Comments: difficulty breathing/swollen lips gabapentin? (Severity: Moderate, Onset: Unknown) ?Reactions: Swelling ? PCP Follow-Up/Heads-Up ?? Prompt f/u with PCP for post-discharge eval, medication adjustments & plan of care ?? -- Future Appointments Saturday 9:00 AM EST ?? With: Kingston Heard MD Where: [facility]rology [address] [facility] 3rd Floor, [address] [place] [id number] Objective Assessment and Plan ? Assessment:? Mr. Sandhu is??our pleasant and unfortunate??66 y.o. gentleman with a??h.o.??DM- 2, hypertension, hyperlipidemia, prior h.o.??right-side MCA stroke with residual encephalomalacia /??residual left-sideweakness (12/2020) & frequent falls / h.o. TIA's & lacunar strokes??/ vascular dementia,??h.o. elective coiling of a right- side??MCA aneurysm (10/2020, Dr. James),??CAD,??COPD, GERD, depression / anxiety,??h.o. left??elbow ulnar decompression surgery (03/2014, Dr. Olivera),??admitted on the night of 03/31 into 04/01/2022 with generalized??tremors. These have resolved after magnesium administration. The rest of his work-up is unremarkable with CThead / CT-angio head & neck (-) for anything acute, only his known and extensive intracranial artery stenosis. He declines rehab. Going home with services. ? Coarse tremors (G25.2):??. Frequent falls (R29.6):??. Hx of multiple strokes / lacunar strokes / areas of encephalomalacia (Z86.73):??. Encephalomalacia (G93.89):? Unfortunately, this all appears c.w. his extensive neurovascular disease, extensive strokes, multiple areas of encephalomalacia, significant vascular dementia... Plan: * Already on ASA + clopidogrel + atorvastatin * PT has recommended rehab multiple times, which he declines I suspect he will need halfway placement some time in the future, when his cannot cope with his care anymore. * Home with services ?? T2DM (type 2 diabetes mellitus) (E11.9):? On metformin ?? Hypertension (I10):??. Hyperlipidemia (E78.5):??. CAD (coronary artery disease) (I25.10):? On??ASA + clopidogrel + lisinopril + atorvastatin ? COPD without exacerbation (J44.9):? Not on oxygen at baseline, not on any inhalers ?? Depression with anxiety (F41.8):? On sertraline ?? GERD (gastroesophageal reflux disease) (K21.9):? On PPI ? --? Vital Signs?? Temperature: 98.6 DegF (04/02/22 08:12:00) Temperature Route: Oral (04/02/22 08:12:00) Pulse Rate: 58 bpm (04/02/22 08:12:00) Respiratory Rate: 16 br/min (04/02/22 08:12:00) Systolic Blood Pressure:??168 mm Hg??High (04/02/22 08:12:00) Diastolic Blood Pressure: 63 mm Hg (04/02/22 08:12:00) Blood pressure sites: Arm, left (04/02/22 08:12:00) Mean Arterial Pressure: 98 mm Hg (04/02/22 08:12:00) Pulse Pressure: 105 mm Hg (04/02/22 08:12:00) Oxygen Saturation: 98 % (04/02/22 08:12:00) Mode of Delivery (Oxygen): Room air (04/02/22 08:12:00) Early Warning Score: 0 (04/02/22 08:24:38) ? . Physical Exam Afebrile, Tmax = 98.6 F, HR = 58', BP =??151 / 76 Normocephalic, CAMI, no thrush Clear chest to auscultation S1 / S2 no murmur Wilson abdomen, no rebound LEs (-) for edema.?? Neurologically grossly non-focal.?? Follow-Up Appointments Added Follow Up ?Time Frame ?Comments Luiz SALAS, Sonya ?? FIRST AVAILABLE ?? Home Health Face to Face *Denotes mandatory yap ?? *I certify that this patient is under my care and that I or an allowed non- physician working with me had a face to face encounter with the patient on this date:??04/02/2022 10:15 ?? *The encounter with the patient was in whole, or in part, for the following medical condition, which is the primary diagnosis(es) for home health care:? Coarse tremors (G25.2) Frequent falls (R29.6) Hx of multiple strokes / lacunar strokes / areas of encephalomalacia (Z86.73) Encephalomalacia (G93.89) T2DM (type 2 diabetes mellitus) (E11.9) HTN (hypertension) (I10) HLD (hyperlipidemia) (E78.5) CAD (coronary artery disease) (I25.10) COPD without exacerbation (J44.9) Depression with anxiety (F41.8) GERD (gastroesophageal reflux disease) (K21.9) Vascular dementia (F01.50) Benign hypertension CAD (coronary artery disease) Chronic lower back pain ? *Select the indications for the discipline/s that are being arranged for this patient. Nursing (select all that apply): [_] None [X] Medication management (reconciliation, teaching)?? [X] Chronic disease management?? [_] Wound care and treatment?? [X] Home safety evaluation [_] Administer SQ/IM/IV medications?? [_] Cath care?? [_] Drain care?? [_] Trach or GT care? Occupation Therapy (select all that apply): [_] None [X] ADL Management [X] Fall prevention training [X] Energy conservation [X] Cognitive training Physical Therapy (select all that apply): [_] None [X] Functional mobility training [X] Home exercise program to strengthen [X] Increase ROM?? [X] Falls prevention training [X] Home maintenance program for chronic disease ? *Homebound due to (select all that apply): [X] Inability to leave home without assistance/supervision [_] Inability to ambulate without assistance [_] Pain [X] Decreased strength and endurance [X] Unsteady gait [X] Severe SOB and fatigue [X] Impaired transfers [X] Inability to negotiate stairs [X] Limited weight bearing [X] Mental status change? *Physician Signature:??Esau Lang MD ?? *By signing this, I certify that I have personally evaluated the patient and agree with the findings and recommendations as documented above. ? Results Test Name Test Result Date/TimeWBC 5.6 k/mm3 04/02/2022 04:30 EST Hgb 11.9 Gm/dL (Low) 04/02/2022 04:30 EST Hct 35.0 % (Low) 04/02/2022 04:30 EST Platelet Count 194 k/mm3 04/02/2022 04:30 EST Sodium 141 mmol/L 04/02/2022 04:30 EST Potassium 3.8 mmol/L 04/02/2022 04:30 EST Chloride 105 mmol/L 04/02/2022 04:30 EST Bicarbonate Level 26 mmol/L 04/02/2022 04:30 EST Anion Gap 10 04/02/2022 04:30 EST Hemoglobin A1C (Monitoring) 6.3 % (High) 04/02/2022 04:30 EST BUN 13 mg/dL 04/02/2022 04:30 EST Creatinine-Blood 0.6 mg/dL (Low) 04/02/2022 04:30 EST Estimated GFR Creatinine 107 ML/MIN/1.73 M2 04/02/2022 04:30 EST Magnesium 4.0 mg/dL (High) 04/02/2022 04:30 EST Cholesterol 102 mg/dL 04/02/2022 04:30 EST Triglycerides 75 mg/dL 04/02/2022 04:30 EST HDL Cholesterol 37 mg/dL (Low) 04/02/2022 04:30 EST LDL Cholesterol 50 mg/dL 04/02/2022 04:30 EST Non HDL Cholesterol 65 mg/dL 04/02/2022 04:30 EST 35 minutes spent on discharge summary / bedside care / coordination of care * [facility] , CIS S: TRANSCRIBE Thor Hart MD: VERIFY Event Display: Result: Authored Date: Chest 2 Views Frontal and Lat Hx of Present Illness: pt presents with episodes of shaking since last night. pt appears tremulous while sitting in chair. states he had a similar situation 1 year ago. denies numbness tingling. c o midsternal chest pain; Reason: Other:; Shortness of Breath, Fever; Clinical Question(s): Pneumonia COMPARISON: 03/07/2022. FINDINGS: LINES AND TUBES: None. LUNGS AND PLEURA: Clear lungs. Evidence of chronic central bronchial wall thickening. Normal pulmonary vascularity. No pleural effusion. No pneumothorax. HEART, MEDIASTINUM AND MAHESH: Heart is normal in size. Normal mediastinal and hilar contour. BONES AND SOFT TISSUES: No acute abnormality. IMPRESSION: No acute abnormality. Possible chronic bronchitis. WSN: [id number] Ordering Physician: Maxi Lowe Dictated By: Thor Hart MD Dictated Date/Time: 04/01/22 7:34 am Reviewed By: Thor Hart MD Signed By: Thor Hart MD Signed Date/Time: 04/01/22 7:34 am Transcribed By: ANDREAS Transcribed Date/Time: 04/01/22 7:[address] Head WO contrast * [facility] , CIS S: TRANSCRIBE Thor Hart MD: VERIFY Parish Smith MD A: SIGN Event Display: Result: Authored Date: CT Head/Brain W/O Contrast Hx of Present Illness: pt presents with episodes of shaking since last night. pt appears tremulous while sitting in chair. states he had a similar situation 1 year ago. denies numbness tingling. c o midsternal chest pain; Reason: Other:; Neuro deficit, acute, stroke suspected; Clinical Question(s): Other:; Hematoma Infarction. TECHNIQUE: Noncontrast head CT using axial technique and reconstructed in axial and coronal planes.Weight-based protocol using automatic tube modulation was used to optimize exposure parameters. CTDIvol Body: 16.20 mGy, DLP Body: 623 mGy*cm. CTDIvol Head: 46.40 mGy, DLP Head: 772 mGy*cm. COMPARISON: CT head 03/07/2022, 01/10/2022, MRI brain 03/08/2022 FINDINGS: BRAIN and EXTRA-AXIAL SPACES: No parenchymal hemorrhage, midline shift or mass effect. Encephalomalacia in the right frontal lobe again noted. Paulino-white matter differentiation is otherwise well preserved. No acute infarct. Negative insular ribbon sign. Atherosclerotic vascular calcification of the carotid arteries but negative hyperdense vessel sign. Status post right MCA aneurysm coiling. Moderate prominence of the ventricles and sulci consistent with parenchymal volume loss. Moderate low-density white matter changes. Old lacunar infarcts at the left basal ganglia. No subarachnoid hemorrhage, subdural or epidural collections. CALVARIUM, SKULL BASE AND SOFT TISSUES: No fractures or suspicious bony lesions. The paranasal sinuses and mastoid air cells are clear. Visualized orbits and globes are intact. The extracranial soft tissues are unremarkable. IMPRESSION: No acute intracranial abnormality. Chronic right frontal lobe infarct. I have personally reviewed the images and I agree with this report. WSN: [id number] Ordering Physician: Maxi Lowe Dictated By: Parish Smith MD Dictated Date/Time: 04/01/22 7:12 am Reviewed By: Thor Hart MD Signed By: Thor Hart MD Signed Date/Time: 04/01/22 7:17 am Transcribed By: ANDREAS Transcribed Date/Time: 04/01/22 4:10 am CTA Neck vessels W contrast IV * Xavier Mcduffie MD: VERIFY Xavier Mcduffie MD: VERIFY Event Display: Result: Authored Date: [id number] CT Angio Head, CT Angio Neck Hx of Present Illness: pt presents with episodes of shaking since last night. pt appears tremulous while sitting in chair. states he had a similar situation 1 year ago. denies numbness tingling. c o midsternal chest pain; Reason: Other:; Neuro deficit, acute, stroke suspected; Clinical Question(s): Other:; Hematoma Aneurysm; Order Comment: / Other: TECHNIQUE: CT angiogram of the [...] exposure parameters. RADIATION DOSE PARAMETERS: CTDIvol Body: 16.20 mGy, DLP Body: 623 mGy*cm. CTDIvol Head: 46.40 mGy, DLP Head: 772 mGy*cm. COMPARISON: Noncontrast CT head performed concurrently. CTA of the head and neck 03/07/2022 FINDINGS: CTA OF THE NECK: Arch: There is a three vessel aortic arch. There is soft plaque involving the proximal great vessels arising from the aortic arch. Mild-moderate narrowing of the proximal left subclavian artery. The right subclavian artery is patent. Right carotid system: Mild soft plaque of the right common carotid artery is noted without significant stenosis. Calcification and soft plaque of the proximal right ICA with stenosis measuring approximately 10% by NASCET criteria. Left carotid system: Soft plaque of the proximal left common carotid artery with stenosis measuringup to 40% by NASCET criteria. Additional scattered foci of soft plaque are also present elsewhere within the left common carotid artery with mild stenosis. Soft plaque of the proximal left ICA near its origin is again noted measuring up to 3.5 mm in thickness. Moderate stenosis of the proximal leftICA measures 60% by NASCET criteria. This is not significantly changed. Right vertebral: The origin is degraded by motion. At least mild narrowing is again noted. Moderatestenosis of the mid V2 segment is again noted. Left vertebral: Multifocal moderate to moderate-severe stenoses of the extracranial are similar. Other: Soft tissues and bones: No evidence of lymphadenopathy or mass. The thyroid is unremarkable. The visualized lungs are clear. Degenerative changes of the cervical spine. CTA OF THE HEAD: Anterior circulation: The intracranial internal carotid arteries are patent. Multifocal calcifications are present. The ICA termini are maintained. The A1 and A2 segments of the anterior cerebral arteries are patent. The M1 segment of the left middle cerebral artery and left M2 MCA branches are patent. The M1 segment of the right middle cerebral arteries patent, but the distal MCA and anterior branchorigins are obscured by streak artifact from a bifurcation aneurysm coil mass. The more distal MCA branches are unremarkable. Posterior circulation: The right vertebral artery is patent. Calcification and moderate-severe stenosis of the left vertebral artery. The PICA origins are patent. The basilar artery is patent, but congenitally small, which is probably due to the presence of a near type right posterior cerebral artery, which is patent. The left posterior cerebral artery is patent. Veins: Major dural venous sinuses are patent. Other: Soft tissues and bones: Chronic right frontal encephalomalacia with compensatory dilatation of the frontal horn of the right lateral ventricle. There have been lens extractions bilaterally. Right maxillary sinus retention cyst. IMPRESSION: 1. No acute intracranial large vessel occlusion. The distal M1 segment of the right middle cerebralartery remains obscured by an adjacent MCA aneurysm coil mass. 2. 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 3. Moderate stenosis of the proximal left internal carotid artery measuring 60% by NASCET criteria.No significant change. 4. Multifocal extracranial vertebral artery stenoses. A preliminary report was issued to the emergency room by the [facility] service at 4:46 AM. WSN: [id number] Ordering Physician: Maxi Lowe Dictated By: Xavier Mcduffie MD Dictated Date/Time: 04/01/22 12:45 p Reviewed By: Xavier Mcduffie MD Signed By: Xavier Mcduffie MD Signed Date/Time: 04/01/22 12:45 pm Transcribed By: ANDREAS Transcribed Date/Time: 04/01/22 12:26 pm CTA Head vessels W contrast IV * Xavier Mcduffie MD: VERIFY Xavier Mcduffie MD: VERIFY Event Display: Result: Authored Date: [id number] CT Angio Head, CT Angio Neck Hx of Present Illness: pt presents with episodes of shaking since last night. pt appears tremulous while sitting in chair. states he had a similar situation 1 year ago. denies numbness tingling. c o midsternal chest pain; Reason: Other:; Neuro deficit, acute, stroke suspected; Clinical Question(s): Other:; Hematoma Aneurysm; Order Comment: / Other: TECHNIQUE: CT angiogram of the [...] exposure parameters. RADIATION DOSE PARAMETERS: CTDIvol Body: 16.20 mGy, DLP Body: 623 mGy*cm. CTDIvol Head: 46.40 mGy, DLP Head: 772 mGy*cm. COMPARISON: Noncontrast CT head performed concurrently. CTA of the head and neck 03/07/2022 FINDINGS: CTA OF THE NECK: Arch: There is a three vessel aortic arch. There is soft plaque involving the proximal great vessels arising from the aortic arch. Mild-moderate narrowing of the proximal left subclavian artery. The right subclavian artery is patent. Right carotid system: Mild soft plaque of the right common carotid artery is noted without significant stenosis. Calcification and soft plaque of the proximal right ICA with stenosis measuring approximately 10% by NASCET criteria. Left carotid system: Soft plaque of the proximal left common carotid artery with stenosis measuringup to 40% by NASCET criteria. Additional scattered foci of soft plaque are also present elsewhere within the left common carotid artery with mild stenosis. Soft plaque of the proximal left ICA near its origin is again noted measuring up to 3.5 mm in thickness. Moderate stenosis of the proximal leftICA measures 60% by NASCET criteria. This is not significantly changed. Right vertebral: The origin is degraded by motion. At least mild narrowing is again noted. Moderatestenosis of the mid V2 segment is again noted. Left vertebral: Multifocal moderate to moderate-severe stenoses of the extracranial are similar. Other: Soft tissues and bones: No evidence of lymphadenopathy or mass. The thyroid is unremarkable. The visualized lungs are clear. Degenerative changes of the cervical spine. CTA OF THE HEAD: Anterior circulation: The intracranial internal carotid arteries are patent. Multifocal calcifications are present. The ICA termini are maintained. The A1 and A2 segments of the anterior cerebral arteries are patent. The M1 segment of the left middle cerebral artery and left M2 MCA branches are patent. The M1 segment of the right middle cerebral arteries patent, but the distal MCA and anterior branchorigins are obscured by streak artifact from a bifurcation aneurysm coil mass. The more distal MCA branches are unremarkable. Posterior circulation: The right vertebral artery is patent. Calcification and moderate-severe stenosis of the left vertebral artery. The PICA origins are patent. The basilar artery is patent, but congenitally small, which is probably due to the presence of a near type right posterior cerebral artery, which is patent. The left posterior cerebral artery is patent. Veins: Major dural venous sinuses are patent. Other: Soft tissues and bones: Chronic right frontal encephalomalacia with compensatory dilatation of the frontal horn of the right lateral ventricle. There have been lens extractions bilaterally. Right maxillary sinus retention cyst. IMPRESSION: 1. No acute intracranial large vessel occlusion. The distal M1 segment of the right middle cerebralartery remains obscured by an adjacent MCA aneurysm coil mass. 2. 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 3. Moderate stenosis of the proximal left internal carotid artery measuring 60% by NASCET criteria.No significant change. 4. Multifocal extracranial vertebral artery stenoses. A preliminary report was issued to the emergency room by the [facility] service at 4:46 AM. WSN: [id number] Ordering Physician: Maxi Lowe Dictated By: Xavier Mcduffie MD Dictated Date/Time: 04/01/22 12:45 p Reviewed By: Xavier Mcduffie MD Signed By: Xavier Mcduffie MD Signed Date/Time: 04/01/22 12:45 pm Transcribed By: ANDREAS Transcribed Date/Time: 04/01/22 12:26 pm Patient Care team information Care Team Personnel Name: Alicia Negron Position: [facility] RN Member Role: Primary Care Nurse Name: Ewa Everett RN Position: [facility] RN Member Role: Primary Care Nurse Name: Hanna Dailey Position: [facility] RN Member Role: Primary Care Nurse Name: Gela Orosco RN Position: [facility] RN Member Role: Primary Care Nurse Name: Jessica Castrejon RN Position: [facility] RN Member Role: Primary Care Nurse Name: Hien Hidalgo RN Position: [facility] RN Member Role: Primary Care Nurse Name: Evelyn Mcnulty RN Position: [facility] RN Member Role: Primary Care Nurse Name: Sonya Dee NP Position: [facility] PCO Associate Professional Member Role: PCP Address: Address: [address] [place] [address], [address] Floor [place], [place] [address] Name: Pola Reid RN Position: [facility] RN Member Role: Primary Care Nurse Name: Betzy Beckford RN Position: [facility] RN Member Role: Primary Care Nurse Name: Karley Perry Position: [facility] RN Member Role: Primary Care Nurse Name: Zully Jara Position: [facility] RN Member Role: Primary Care Nurse Name: Yunior Bui RN Position: [facility] RN Member Role: Primary Care Nurse Name: Candace Liang RN Position: [facility] RN Member Role: Primary Care Nurse Name: Kassi Mars RN Position: [facility] RN Member Role: Primary Care Nurse Name: Dedra Lezama Position: [facility] RN Member Role: Primary Care Nurse Name: Pat Fernando RN Position: [facility] RN Member Role: Primary Care Nurse Name: Randa Sagastume RN Position: [facility] RN Member Role: Primary Care Nurse Name: Liborio Palomares RN Position: [facility] RN Member Role: Primary Care Nurse Name: Yulia Veliz RN Position: [facility] RN Member Role: Primary Care Nurse Name: Mitra Patel Position: [facility] RN Member Role: Primary Care Nurse Name: Kacie Campbell RN Position: [facility] RN Member Role: Primary Care Nurse Name: Charito Vazquez RN Position: [facility] ED RN W/OE and Tasks Member Role: Primary Care Nurse Name: Dylan Bond RN Position: [facility] RN Member Role: Primary Care Nurse Name: Phuong Delgado RN Position: [facility] RN Member Role: Primary Care Nurse Name: Lydia Doherty RN Position: [facility] RN Member Role: Primary Care Nurse Name: Elie Davis RN Position: [facility] RN Member Role: Primary Care Nurse Name: Delfina Still RN Position: [facility] RN Member Role: Primary Care Nurse Name: Suzy Mccracken RN Position: [facility] RN Member Role: Primary Care Nurse Name: Chandni Gibbons RN Position: [facility] RN Member Role: Primary Care Nurse Name: Rosio Gibbons RN [facility] [facility] RN Member Role: Primary Care Nurse Name: Viry Zacarias RN Position: [facility] RN Member Role: Primary Care Nurse Name: Kerri Cunha RN Position: [facility] Regional Training Manager Member Role: Primary Care Nurse Name: Atiya Mcintyre RN Position: [facility] RN Member Role: Primary Care Nurse Name: [facility] Attending Position: [facility] ED Medicine MD Name: Rocio Gerardo Position: [facility] ED [facility] Member Role: Meter Readers Supervisor Name: Maribel Egan Position: [facility] ED TA [facility] Member Role: Meter Readers Supervisor Name: Otilia Dan RN Position: [facility] ED RN W/OE and Tasks Member Role: Patient Care Provider Care Team Related Persons Name: MONTSE BRUNNER Address: [place] [address] Name: MONTSE CORRAL Address: [place] [address]
--- OUTSIDE RECORDS SUMMARY | 2023-04-11 15:26 | XMS_ITS | Continuity of Care Document ---
Author Name Unknown Organization [facility] Adult Address [address] [place] [address]- Care Team Providers Care Revenue Tax Specialist Name Role Phone Brett SAVAGE, Ursula A Primary Care Physician [phone] [facility]counter [facility] Date[facility]s): 11/05/22 - 12/05/22 [facility] Adult [address] [place] [address]- Allergies, Adverse Reactions, Alerts Substance Reaction Severity [...] pneumococcal 23-valent vaccine 02/04/13 Recorded 1Result Comment: [facility]: [id number] Medications albuterol-ipratropium 3 mg-0.5 mg/3 ml inhalation [...] Team Personnel Name: Adelia Landry RN Position: [facility] RN Member Role: Primary Care Nurse Name: Alicia Negron Position: [facility] RN Member Role: Primary Care Nurse Name: Hanna Dailey Position: [facility] RN Member Role: Primary Care Nurse Name: Nereida Dobbins RN Position: [facility] RN Member Role: Primary Care Nurse Name: Gela Orosco RN Position: [facility] RN Member Role: Primary Care Nurse Name: Jessica Castrejon RN Position: [facility] RN Member Role: Primary Care Nurse Name: Hien Hidalgo RN Position: [facility] RN Member Role: Primary Care Nurse Name: Phuong Balderas RN Position: [facility] SN RN Member Role: Primary Care Nurse Name: Evelyn Mcnulty RN Position: [facility] RN Member Role: Primary Care Nurse Name: Yanely Shanks RN Position: [facility] RN Member Role: Primary Care Nurse Name: Siddhartha Andino RN Position: [facility] RN Member Role: Primary Care Nurse Name: Pola Reid RN Position: [facility] RN Supv Member Role: Primary Care Nurse Name: Betzy Beckford RN Position: [facility] RN Member Role: Primary Care Nurse Name: Gabriella Gonsales RN Position: [facility] RN Member Role: Primary Care Nurse Name: Zully Jara Position: [facility] RN Member Role: Primary Care Nurse Name: Yunior Bui RN Position: [facility] RN Member Role: Primary Care Nurse Name: Candace Liang RN Position: [facility] RN Member Role: Primary Care Nurse Name: Marci Padilla RN Position: [facility] RN Member Role: Primary Care Nurse Name: Ursula West MD Position: [facility] Physician - Primary Care Member Role: PCP Address: Address: [address] [place] [address] [address] [facility] [address] Name: Florecita Ring RN Position: [facility] RN Member Role: Primary Care Nurse Name: Dedra Lezama Position: [facility] RN Member Role: Primary Care Nurse Name: Pat Fernando RN Position: [facility] RN Member Role: Primary Care Nurse Name: Randa Sagastume RN Position: [facility] RN Member Role: Primary Care Nurse Name: Mitra Patel Position: [facility] RN Member Role: Primary Care Nurse Name: Kacie Campbell RN Position: [facility] RN Member Role: Primary Care Nurse Name: Tammy Castillo RN Position: [facility] RN Member Role: Primary Care Nurse Name: Charito Vazquez RN Position: [facility] SUNITHA RN W/OE and Tasks Member Role: Primary Care Nurse Name: Dylan Bond RN Position: [facility] RN Member Role: Primary Care Nurse Name: Lydia Doherty RN Position: [facility] RN Member Role: Primary Care Nurse Name: Elie Davis RN Position: [facility] RN Member Role: Primary Care Nurse Name: Delfina Still RN Position: [facility] RN Member Role: Primary Care Nurse Name: Chandni Gibbons RN Position: [facility] SN RN Member Role: Primary Care Nurse Name: Brayden Elizabeth RN Position: [facility] RN Member Role: Primary Care Nurse Name: Viry Zacarias RN Position: [facility] RN Member Role: Primary Care Nurse Name: Kerri Cunha RN Position: [facility] Hospital Steel Construction Worker Member Role: Primary Care Nurse Name: Atiya Mcintyre RN Position: [facility] RN Member Role: Primary Care Nurse Care Team Related Persons Name: IBETH BRUNNER Address: home [address] [address] Name: IBETH CORRAL Address: home [address] [address]
--- OUTSIDE RECORDS SUMMARY | 2023-04-11 15:26 | XMS_ITS | Continuity of Care Document ---
Author Name Unknown Organization [facility] Adult Address [address] [place] [address]- Care Team Providers Care Sandstone Splitter Name Role Phone Luiz SALAS, Sonya Primary Care Physician [facility] Date[facility]s): 10/15/22 - 11/14/22 [facility] Adult [address] [place] [id number]- Allergies, Adverse Reactions, Alerts Substance Reaction Severity [...] Not Given Patient Refuses 1Result Comment: [facility]: [id number] Medications albuterol-ipratropium 3 mg-0.5 mg/3 ml inhalation [...] 1 Refills, Maintenance, 07/31/22 13:23:00 EDT, [facility], 178, cm, 07/23/22 11:32:00 EDT, Height, 72.5, kg, 03/08/22 4:29:00 EST, Dry Weight Start Date: 07/31/22 Status: Ordered atorvastatin 40 mg oral tablet 1 tablet, By Mouth, Daily at bedtime, # 28 tablet, 5 Refills, Maintenance, 07/31/22 13:23:00 EDT, [facility], 178, cm, 07/23/22 11:32:00 EDT, [...] 13:50:00 EDT, Route to Pharmacy Electronically, [facility], 178, cm, 10/26/22 14:30:00 EDT, [...] 0 Refills, Maintenance, 10/25/22 9:55:00 EDT, [facility], 178, cm, 10/25/22 7:25:00 EDT, Height, [...] Route to Pharmacy Electronically, [facility], 178, cm, 07/23/22 11:32:00 EDT, Height, [...] Confirmed Active 1[facility] 2000; [facility] [...] Team Personnel Name: Adelia Landry RN Position: [facility] RN Member Role: Primary Care Nurse Name: Alicia Negron Position: [facility] RN Member Role: Primary Care Nurse Name: Hanna Dailey Position: [facility] RN Member Role: Primary Care Nurse Name: Nereida Dobbins RN Position: [facility] RN Member Role: Primary Care Nurse Name: eGla Orosco RN Position: [facility] RN Member Role: Primary Care Nurse Name: Jessica Castrejon RN Position: [facility] RN Member Role: Primary Care Nurse Name: Hien Hidalgo RN Position: [facility] RN Member Role: Primary Care Nurse Name: Phuong Balderas RN Position: [facility] SN RN Member Role: Primary Care Nurse Name: Evelyn Mcnulty RN Position: [facility] RN Member Role: Primary Care Nurse Name: Yanely Shanks RN Position: [facility] RN Member Role: Primary Care Nurse Name: Sonya Dee NP Position: [facility] PCO Associate Professional Member Role: PCP Address: Address: [address] [place] [address], [address] [place] [address] Name: Pola Reid RN Position: [facility] RN Supv Member Role: Primary Care Nurse Name: Betzy Beckford RN Position: [facility] RN Member Role: Primary Care Nurse Name: Zully Jara Position: [facility] RN Member Role: Primary Care Nurse Name: Yunior Bui RN Position: [facility] RN Member Role: Primary Care Nurse Name: Candace Liang RN Position: [facility] RN Member Role: Primary Care Nurse Name: Dedra Lezama Position: [facility] RN Member Role: Primary Care Nurse Name: Pat Fernando RN Position: [facility] RN Member Role: Primary Care Nurse Name: Randa Sagastume RN Position: [facility] RN Member Role: Primary Care Nurse Name: Mitra Patel Position: [facility] RN Member Role: Primary Care Nurse Name: Kacie Campbell RN Position: [facility] RN Member Role: Primary Care Nurse Name: Charito Vazquez RN Position: [facility] SUNITHA RN W/OE and Tasks Member Role: Primary Care Nurse Name: Dylan Bond RN Position: [facility] RN Member Role: Primary Care Nurse Name: Lydia Doherty RN Position: [facility] RN Member Role: Primary Care Nurse Name: Elie Davis RN Position: [facility] RN Member Role: Primary Care Nurse Name: Delfina Still RN Position: [facility] RN Member Role: Primary Care Nurse Name: Chandni Gibbons RN Position: [facility] RN Member Role: Primary Care Nurse Name: Viry Zacarias RN Position: [facility] RN Member Role: Primary Care Nurse Name: Kerri Cunha RN Position: [facility] Hospital Corner Trimmer Operator Member Role: Primary Care Nurse Name: Atiya Mcintyre RN Position: [facility] RN Member Role: Primary Care Nurse Care Team Related Persons Name: IBETH BRUNNER Address: home [address] [address] Name: IBETH CORRAL Address: [address] [address]
--- OUTSIDE RECORDS SUMMARY | 2023-04-11 15:26 | XMS_ITS | Continuity of Care Document ---
Author Name Unknown Organization [facility] Adult Address [address] [place] [address]- Care Team Providers Care Booster Station Operator Name Role Phone Luiz SALAS, Sonya Primary Care Physician [phone] [facility] Date(s): 02/10/21 - 03/12/21 [facility] Adult [address] [place] [address]- Allergies, Adverse Reactions, Alerts Substance Reaction Severity [...] capsule, 11 Refills, Maintenance,01/16/21 10:26:00 EDT, Capsule, [facility]/pharmacy #[id number], Partial fill upon patient request if the prescription is for a schedule II opioid drug., 178, cm, 0... Start Date: 01/16/21 Stop Date: 01/11/22 Status: Ordered clonazePAM 0.5 mg oral tablet 1 tablet = 0.5 mg, By Mouth, 3 times a day, # 90 tablet, 1 Refills, Maintenance, 01/16/21 10:52:00 EDT, Tablet, [facility]/pharmacy #[id number], Partial fill upon patient request if the prescription is for a schedule II opioid drug., 178, cm, 12/29/20 5:31:00 EDT,... Start Date: 01/16/21 Stop Date: 03/17/21 Status: Ordered glimepiride 4 mg oral tablet 1 tablet, By Mouth, 2 times a day, # 60 tablet, 2 Refills, Maintenance, 01/16/21 10:26:00 EDT, [facility]/pharmacy #[id number], 178, cm, 12/29/20 5:31:00 EDT, Height, 100, kg, 12/26/20 16:53:00 EDT, Dry Weight Start Date: 01/16/21 Status: Ordered lactulose 10 gm/15 ml oral syrup 15 mL, By Mouth, Daily, PRN NEEDED FOR CONSTIPATION, # 473 mL, 0 Refills, [id number], 30, TAKE 15 ML BY MOUTH DAILY NEEDED FOR CONSTIPATION, 178, cm, 02/03/21 12:52:00 EDT, Height, 100, kg, 12/26/20 16:53:00 EDT, Dry Weight Start Date: 03/01/21 Status: Ordered lisinopril 10 mg oral tablet 10 mg, 1, tablet, By Mouth, Daily, # 30 tablet, Refills 5, Tot. Refills 5, Maintenance, 01/16/21 10:29:00 EDT, Route to Pharmacy Electronically, [facility]/pharmacy #[id number], Partial fill upon patient request if [...] 0 Refills, Maintenance, 03/15/20 12:57:00 EST, Tablet, [facility], Partial fill upon patient request, 178, cm, 03/15/20 11:15:00 EST, Height, 105, kg, 03/12/20 6:12:00 EST, Dry W... Start Date: 03/15/20 Status: Ordered oxyCODONE 5 mg oral tablet 5 mg, 1, tablet, By Mouth, 5 times a day, BYPRODUCTS OPERATOR checked., # 140 tablet, Refills 0, Tot. Refills 0, Maintenance, 02/24/21 15:51:00 EDT, Route to Pharmacy Electronically, [facility]/pharmacy #[id number], Partial fillupon patient request if the [...] 12/28/20 12:50:00 EDT, Route to Pharmacy Electronically, [facility], Partial fill upon patient [...]
--- OUTSIDE RECORDS SUMMARY | 2023-04-11 15:26 | XMS_ITS | Continuity of Care Document ---
Author Name Unknown Organization [facility] Adult Address [address] [place] [address]- Care Team Providers Care Power Crane Operator Name Role Phone Luiz SALAS, Sonya Primary Care Physician [phone] Encounter [facility] ACCT R [id number] Date(s): 09/22/20 - 09/29/20 [facility] [address] [place] [address]- Attending Physician: Not on Staff, Attending MD [...] capsule, 11 Refills, Maintenance,08/19/20 5:59:00 EDT, Capsule, [facility][id number], Partial fill upon patient request if the [...] 2 Refills, Maintenance, 10/07/20 11:44:00 EDT, Tablet, [facility] #[id number], Partial fill upon patient request if the prescription is fora schedule II opioid drug., 177.8, cm, 08/08/20 11:... Start Date: 10/07/20 Stop Date: 01/05/21 Status: Ordered lisinopril 20 mg oral tablet 20 mg, 1, tablet, By Mouth, Daily, # 90 tablet, Refills 1, Tot. Refills 1, Maintenance, 08/19/20 10:00:00 EDT, Route to Pharmacy Electronically, [facility] #[id number], Partial fill upon patientrequest if the prescription is for a schedule II op... Start Date: 08/19/20 Stop Date: 02/15/21 Status: Ordered metFORMIN 1000 mg oral tablet 1 tablet = 1,000 mg, By Mouth, 2 times a day, # 60 tablet, 0 Refills, Maintenance, 03/15/20 12:57:00 EST, Tablet, [facility], Partial [...] Replace Required Details, Route to Pharmacy Electronically, [facility], Partial fill upon patie... Start Date: 03/15/20 Status: Ordered oxyCODONE 5 mg oral tablet 5 mg, 1, tablet, By Mouth, 5 times a day, TREASURY SPECIALIST checked., # 140 tablet, Refills 0, Tot. Refills 0, Maintenance, 09/05/20 14:37:00 EDT, Route to Pharmacy Electronically, [facility] #[id number], Partial fill upon patient request if the prescription i... Start Date: 09/05/20 Status: Ordered Probiotic Formula (Bacillus Coagulans) oral capsule 1 capsule, By Mouth, Daily, # 10 capsule, 0 Refills, Maintenance, 04/14/20 11:39:00 EST, Capsule, [facility] #[id number], Partial fill upon patient request if the prescription is for a schedule II opioid drug., 1 capsule By Mouth Daily, 178, cm,... Start Date: 04/14/20 Status: Ordered simvastatin 40 mg oral tablet 40 mg, 1, tablet, By Mouth, Daily at bedtime, # 30 tablet, Refills 5, Tot. Refills 5, Maintenance, 08/19/20 5:58:00 EDT, Route to Pharmacy Electronically, [facility] #[id number], Partial fill upon patient request, 177.8, cm, 08/08/20 11:27:00 EDT... Start Date: 08/19/20 Stop Date: 02/15/21 Status: Ordered Problem List Condition Effective Dates Status Health Status Inform ant Benign hypertension(Confirmed) Active CAD (coronary artery disease)(Confirmed) 1 Active Chronic lower back pain(Confirmed) Active Diabetes mellitus(Confirmed) Active Encephalopathy(Confirmed) Active Dyslipidemia(Confirmed) Active 1angioplasty 2000; 3 stents at [facility] Vital Signs Most recent to oldest [Reference Range]: 1 2 Height 177.8 cm (09/22/20 2:45 PM) 177.8 cm (09/22/20 2:34 PM) Weight 107.1 kg (09/22/20 2:34 PM) Oxygen Saturation [94-100 %] 96 % (09/22/20 2:34 PM) Pulse Rate [55-90 bpm] 117 bpm *H* (09/22/20 2:34 PM) Body Mass Index [18.5-24.99] 33.88 *>HHI* (09/22/20 2:34 PM) Blood Pressure [90-138/55-84 mm Hg] 150/ 80mm Hg *H* (09/22/20 2:45 PM) 150/80mm Hg *H* (09/22/20 2:34 PM) Blood pressure sites Arm, right (09/22/20 2:45 PM) Arm, right (09/22/20 2:34 PM) Weight Obtained Via Standing scale (09/22/20 2:34 PM) Social History Social History Type Response Smoking Status Smoker, current stat us unknown; Type: Cigarettes; Other: 1/2-1 pk; entered on: 05/10/20 Sex
--- OUTSIDE RECORDS SUMMARY | 2023-04-11 15:26 | XMS_ITS | Continuity of Care Document ---
Author Name Unknown Organization [facility] Address Unknown Care Team Providers Care Venetian Blind Mechanic Name Role Phone Luiz SALAS, Sonya Primary Care Physician [phone] Encounter [facility] Date(s): 01/18/21 - 02/17/21 [facility] Allergies, Adverse Reactions, Alerts Substance [...] Refills, Maintenance, 01/16/21 10:30:00 EDT, Tablet, [facility]/pharmacy #[id number], Partial fill upon patient request [...] 11 Refills, Maintenance,01/16/21 10:26:00 EDT, Capsule, [facility]/pharmacy #[id number], Partial fill upon patient request [...] 10:29:00 EDT, Route to Pharmacy Electronically, [facility]/pharmacy #[id number], Partial fill upon patient request [...] 0 Refills, Maintenance, 03/15/20 12:57:00 EST, Tablet, [facility], Partial fill upon patient request, 178, cm, 03/15/20 11:15:00 EST, Height, 105, kg, 03/12/20 6:12:00 EST, Dry W... Start Date: 03/15/20 Status: Ordered MiraLax oral powder for reconstitution = 17 Gm, By Mouth, Daily, for 14 days, dissolve in water before taking, # 238 Gm, 0 Refills, Acute 02/27/21 13:29:00 EST, 02/13/21 13:29:00 EDT, REC Powder, [facility]/pharmacy #[id number], Partial fill upon patient request if the prescription is for a schedule II... Start Date: 02/13/21 Stop Date: 02/27/21 Status: Ordered oxyCODONE 5 mg oral tablet 5 mg, 1, tablet, By Mouth, 5 times a day, BUTTERMAKER CONTINUOUS CHURN checked., # 140 tablet, Refills 0, Tot. Refills 0, Maintenance, 01/16/21 10:52:00 EDT, Route to Pharmacy Electronically, [facility]/pharmacy #[id number], Partial fillupon patient request if [...] 12/28/20 12:50:00 EDT, Route to Pharmacy Electronically, [facility], Partial fill upon patient [...]
--- OUTSIDE RECORDS SUMMARY | 2023-04-11 15:26 | XMS_ITS | Continuity of Care Document ---
Author Name Unknown Organization [facility] Adult Address [address] [place] [address]- Care Team Providers Care Aircraft Worker Name Role Phone Luiz WEB PROJECT MANAGER, Sonya Primary Care Physician [facility] Date[facility]s): 05/10/22 - 06/09/22 [facility] Adult [address] [place] [id number]- Allergies, Adverse Reactions, Alerts Substance Reaction Severity [...] 05/26/20 Not Given Patient Refuses 1Result Comment: [facility]: [id number] Medications Aspirin Low Dose 81 mg oral [...] Maintenance, 05/10/22 9:49:00 EST, [facility] 178, [...] Route to Pharmacy Electronically[facility], 178, cm, 03/14/22 15:25:00 EST, Height, 72.5, kg, 03/08/22 4:29:00 EST, Dry Weight Start Date: 04/11/22 Status: Ordered magnesium oxide 400 mg oral tablet 1 tablet, By Mouth, Daily, # 28 tablet, 5 Refills, Maintenance, 01/17/22 14:43:00 EDT, [facility], 177, cm, 01/17/22 7:37:00 EDT, Height, 75, kg, 01/11/22 12:33:00 EDT, Dry Weight Start Date: 01/17/22 Status: Ordered metFORMIN 1000 mg oral tablet 1 tablet, By Mouth, 2 times a day, # 56 tablet, 5 Refills, Maintenance, 01/17/22 14:43:00 EDT, [facility], 177, cm, 01/17/22 7:37:00 EDT, Height, 75, kg, 01/11/22 12:33:00 EDT, Dry Weight Start Date: 01/17/22 Status: Ordered nicotine 21 mg/24 hr transdermal film, extended release 1 patch, Topically, Daily, # 30 patch, 0 Refills, Maintenance, 03/14/22 14:53:00 EST, Patch, [facility], Partial fill upon patient [...] Active 1angioplasty 2000; 3 stents at [facility] 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 [...] Care Team Personnel Name: Alicia Negron Position: [facility] RN Member Role: Primary Care Nurse Name: Ewa Everett RN Position: [facility] RN Member Role: Primary Care Nurse Name: Hanna Dailey Position: [facility] RN Member Role: Primary Care Nurse Name: Gela Orosco RN Position: [facility] RN Member Role: Primary Care Nurse Name: Jessica Castrejon RN Position: [facility] RN Member Role: Primary Care Nurse Name: Hien Hidalgo RN Position: [facility] RN Member Role: Primary Care Nurse Name: Evelyn Mcnulty RN Position: [facility] RN Member Role: Primary Care Nurse Name: Sonya Dee NP Position: [facility] PCO Associate Professional Member Role: PCP Address: Address: [address] [place] [address], [address] [place] [address]- Name: Pola Reid RN Position: [facility] RN Supv Member Role: Primary Care Nurse Name: Betzy Beckford RN Position: [facility] RN Member Role: Primary Care Nurse Name: Karley Perry LPN Position: [facility] AMB Nurse Member Role: Primary Care Nurse Name: Zully Jara Position: [facility] RN Member Role: Primary Care Nurse Name: Yunior Bui RN Position: [facility] RN Member Role: Primary Care Nurse Name: Candace Liang RN Position: [facility] RN Member Role: Primary Care Nurse Name: Dedra Lezama Position: [facility] RN Member Role: Primary Care Nurse Name: Pat Fernando RN Position: [facility] RN Member Role: Primary Care Nurse Name: Randa Sagastume RN Position: [facility] RN Member Role: Primary Care Nurse Name: Mitra Patel Position: [facility] RN Member Role: Primary Care Nurse Name: Kacie Campbell RN Position: [facility] RN Member Role: Primary Care Nurse Name: Charito Vazquez RN Position: [facility] ED RN W/OE and Tasks Member Role: Primary Care Nurse Name: Ronda GARAY cecilia Position: [facility] RN Member Role: Primary Care Nurse Name: Phuong Delgado RN Position: [facility] RN Member Role: Primary Care Nurse Name: Lydia Doherty RN Position: [facility] RN Member Role: Primary Care Nurse Name: Elie Davis RN Position: [facility] RN Member Role: Primary Care Nurse Name: Delfina Still RN Position: [facility] RN Member Role: Primary Care Nurse Name: Chandni Gibbons RN Position: [facility] RN Member Role: Primary Care Nurse Name: Rosio Gibbons RN Position: [facility] RN Member Role: Primary Care Nurse Name: Viry Zacarias RN Position: [facility] RN Member Role: Primary Care Nurse Name: Kerri Cunha RN Position: [facility] Hospital Professor Of Economics Member Role: Primary Care Nurse Name: Atiya Mcintyre RN Position: [facility] RN Member Role: Primary Care Nurse Care Team Related Persons Name: IBETH BRUNNER Address: home [address] [facility] [facility] [facility] [address] [place], [place] Name: IBETH CORRAL Address: home [address] [facility] [address] [place], [place]
--- OUTSIDE RECORDS SUMMARY | 2023-04-11 15:26 | XMS_ITS | Continuity of Care Document ---
Author Name Unknown Organization [facility] Adult Address [address] [place] [address]- Care Team Providers Care X Ray Equipment Tester Name Role Phone Sonya Dee NP Primary Care Physician [place] [facility] [place](s): 10/20/21 - 11/19/21 [facility] Adult [address] [place] [address]- Allergies, Adverse Reactions, Alerts Substance Reaction Severity [...] 28 tablet, 0 Refills, [facility], 160, cm, 10/22/21 7:52:00 EDT, Height, [...] tablet, Refills 1, Route to Pharmacy Electronically, [id number], 178, cm, 05/11/21 8:52:00 EST, Height, 81, [...] 10/22/21 16:00:00 EDT, Route to Pharmacy Electronically, [facility], Partial fill upon patient request if the prescription... Start Date: 10/22/21 Stop Date: 10/25/21 Status: Ordered Tums 500 mg oral tablet, chewable 500 mg, 1, tablet, Chew, 3 times a day, PRN, # 90 tablet, Refills 5, Tot. Refills 5, Maintenance, Dyspepsia, 05/02/21 10:38:00 EST, Route to Pharmacy Electronically, [facility]/pharmacy #[id number], Partial fill upon patient request if the [...]
--- OUTSIDE RECORDS SUMMARY | 2023-04-11 15:26 | XMS_ITS | Continuity of Care Document ---
Author Name Unknown Organization [facility] Adult Address [address] [place] [address]- Care Team Providers Care Vehicle Insurance Agent Name Role Phone Luiz INFANTRY INDIRECT FIRE CREWMEMBER, Sonya Primary Care Physician [phone] Encounter [facility] Date(s): 10/24/22 - 11/23/22 [facility] Adult [address] [place] [phone]- Allergies, Adverse Reactions, Alerts Substance Reaction Severity [...] 05/26/20 Not Given Patient Refuses 1Result Comment: [facility]: [id number] Medications albuterol-ipratropium 3 mg-0.5 mg/3 ml inhalation [...] 1 Refills, Maintenance, 07/31/22 13:23:00 EDT, [facility], 178, cm, 07/23/22 11:32:00 EDT, Height, 72.5, kg, 03/08/22 4:29:00 EST, Dry Weight Start Date: 07/31/22 Status: Ordered atorvastatin 40 mg oral tablet 1 tablet, By Mouth, Daily at bedtime, # 28 tablet, 5 Refills, Maintenance, 07/31/22 13:23:00 EDT, [facility], 178, cm, 07/23/22 11:32:00 EDT, Height, [...] 13:50:00 EDT, Route to Pharmacy Electronically, [facility], 178, cm, 10/26/22 14:30:00 EDT, Height, [...] 13:25:00 EDT, [facility], [facility], 178, cm, 07/23/22 11:32:00 EDT, Height, 72.5, kg, 03/08/22 4:29:00 EST, Dry Weight Start Date: 07/31/22 Status: Ordered magnesium oxide 400 mg oral tablet 1 tablet, By Mouth, Daily, # 30 tablet, 5 Refills, Maintenance, 07/18/22 8:15:00 EDT, [facility], 178, cm, 03/14/22 15:25:00 EST, Height, 72.5, [...] 0 Refills, Maintenance, 10/25/22 9:55:00 EDT, [facility], 178, cm, 10/25/22 7:25:00 EDT, Height, [...] Refills, Maintenance, 11/16/22 20:08:00 EDT, Capsule, [facility], Partial fill upon patient request if the prescription is for a schedule II opioid drug., 178, cm, 10/26/22 14:30:00 EDT,... Start Date: 11/16/22 Stop Date: 01/15/23 Status: Ordered sertraline 25 mg oral tablet 1 tablet, By Mouth, Daily, # 90 tablet, 1 Refills, Maintenance, 07/31/22 13:26:00 EDT, [facility], 178, cm, 07/23/22 11:32:00 EDT, Height, 72.5, kg, 03/08/22 4:29:00 EST, Dry Weight Start Date: 07/31/22 Status: Ordered tamsulosin 0.4 mg oral capsule 0.4 mg, 1, capsule, By Mouth, Daily, # 30 capsule, Refills 1, Tot. Refills 1, Maintenance, 11/17/2319:10:00 EDT, Route to Pharmacy Electronically, [facility], Partial fill upon patient [...] Confirmed Active 1angioplasty 2000; 3 stents at [place] [...] Care Nurse Name: Gela Orosco RN Position: [facility] RN Member Role: Primary Care Nurse Name: Jessica Castrejon RN Position: [facility] RN Member Role: Primary Care Nurse Name: Hien Hidalgo RN Position: [facility] RN Member Role: Primary Care Nurse Name: Phuong Balderas RN Position: [facility] SN RN Member Role: Primary Care Nurse Name: Evelyn Mcnulty RN Position: [facility] RN Member Role: Primary Care Nurse Name: Yanely Shanks RN Position: [facility] RN Member Role: Primary Care Nurse Name: Sonya Dee NP Position: [facility] PCO Associate Professional Member Role: PCP Address: Address: [address] [place] [address], [address] Name: Pola Reid RN Position: [facility] RN Supv Member Role: Primary Care Nurse Name: Betzy Beckford RN Position: [facility] RN Member Role: Primary Care Nurse Name: Zully Jara Position: [facility] RN Member Role: Primary Care Nurse Name: Yunior Bui RN Position: [facility] RN Member Role: Primary Care Nurse Name: Candace Liang RN Position: [facility] RN Member Role: Primary Care Nurse Name: Dedra Lezama Position: [facility] RN Member Role: Primary Care Nurse Name: Pat Fernando RN Position: [facility] RN Member Role: Primary Care Nurse Name: Randa Sagastume RN Position: [facility] RN Member Role: Primary Care Nurse Name: Mitra Patel Position: [facility] RN Member Role: Primary Care Nurse Name: Kacie Campbell RN Position: [facility] RN Member Role: Primary Care Nurse Name: Charito Vazquez RN Position: [facility] ED RN W/OE and Tasks Member Role: Primary Care Nurse Name: Dylan Bond RN Position: [facility] RN Member Role: Primary Care Nurse Name: Lydia Doherty RN Position: [facility] RN Member Role: Primary Care Nurse Name: Elie Davis RN Position: [facility] RN Member Role: Primary Care Nurse Name: Delfina Still RN Position: [facility] RN Member Role: Primary Care Nurse Name: Chandni Gibbons RN Position: [facility] SN RN Member Role: Primary Care Nurse Name: Viry Zacarias RN Position: [facility] RN Member Role: Primary Care Nurse Name: Kerri Cunha RN Position: [facility] Hospital Blueberry Grower Member Role: Primary Care Nurse Name: Atiya Mcintyre RN Position: [facility] RN Member Role: Primary Care Nurse Care Team Related Persons Name: IBETH BRUNNER Address: home [address] [address] Name: IBETH CORRAL Address: tatamy [address] [address]
--- OUTSIDE RECORDS SUMMARY | 2023-04-11 15:26 | XMS_ITS | Continuity of Care Document ---
Author Name Unknown Organization [facility] Address [address] [place] [address]- Care Team Providers Care Coal Handler Name Role Phone Luiz SALAS, Sonya Primary Care Physician Encounter [facility] [place] Date(s): 07/13/20 - 08/12/20 [facility] [address] [place] [address]- Allergies, Adverse Reactions, Alerts Substance Reaction Severity [...] 1 Refills, Hard Stop 10/07/20 11:44:00 EDT, 04/19/21 11:44:00 EDT, Tablet, [facility] #[id number], Partial fill upon patient request if the prescription is for a schedule II opio... Start Date: 08/08/20 Stop Date: 10/07/20 Status: Ordered glimepiride 4 mg oral tablet 1 tablet = 4 mg, By Mouth, 2 times a day, # 60 tablet, 2 Refills, Maintenance, 10/07/20 11:44:00 EDT, Tablet, [facility] #[id number], Partial fill upon patient request if the prescription is fora schedule II opioid drug., 177.8, cm, 08/08/20 11:... Start Date: 10/07/20 Stop Date: 01/05/21 Status: Ordered lisinopril 20 mg oral tablet 20 mg, 1, tablet, By Mouth, Daily, # 90 tablet, Refills 0, Tot. Refills 0, Maintenance, 05/12/20 9:54:00 EST, Route to Pharmacy Electronically, [facility] #[id number], Partial fill upon patient request if the prescription is for a schedule II opi... Start Date: 05/12/20 Stop Date: 08/10/20 Status: Ordered metFORMIN 1000 mg oral tablet 1 tablet = 1,000 mg, By Mouth, 2 times a day, # 60 tablet, 0 Refills, Maintenance, 03/15/20 12:57:00 EST, Tablet, [facility], Partial [...] Replace Required Details, Route to Pharmacy Electronically, [facility], Partial fill upon patie... Start Date: 03/15/20 Status: Ordered oxyCODONE 5 mg oral tablet 5 mg, 1, tablet, By Mouth, 5 times a day, ORACLE DATABASE ANALYST checked., # 140 tablet, Refills 0, Tot. Refills 0, Maintenance, 08/09/20 15:20:00 EDT, Route to Pharmacy Electronically, [facility] #[id number], Partial fill upon patient request if the prescription i... Start Date: 08/09/20 Status: Ordered Probiotic Formula (Bacillus Coagulans) oral capsule 1 capsule, By Mouth, Daily, # 10 capsule, 0 Refills, Maintenance, 04/14/20 11:39:00 EST, Capsule, [facility] #[id number], Partial fill upon patient request if the prescription is for a schedule II opioid drug., 1 capsule By Mouth Daily, 178, cm,... Start Date: 04/14/20 Status: Ordered simvastatin 40 mg oral tablet 40 mg, 1, tablet, By Mouth, Daily at bedtime, # 30 tablet, Refills 0, Tot. Refills 0, Maintenance, 03/15/20 12:20:00 EST, Route to Pharmacy Electronically, [facility], Partial fill uponpatient request, 178, cm, 03/15/20 11:15:00 EST, He... Start Date: 03/15/20 Status: Ordered Problem List Condition Effective Dates Status Health Status Inform ant Benign hypertension(Confirmed) Active CAD (coronary artery disease)(Confirmed) 1 Active Chronic lower back pain(Confirmed) Active Diabetes mellitus(Confirmed) Active Encephalopathy(Confirmed) Active Dyslipidemia(Confirmed) Active 1angioplasty 2000; 3 stents at [facility] Social History Social History Type Response Smoking Status Smoker, current stat us unknown; Type: Cigarettes; Other: 1/2-1 pk; entered on: 05/10/20 Sex
--- OUTSIDE RECORDS SUMMARY | 2023-04-11 15:26 | XMS_ITS | Continuity of Care Document ---
Author Name Unknown Organization [facility] ter Address [address] [place] [address]- Care Team Providers Care Retail Stocker Name Role Phone Luiz SALAS, Sonya Primary Care Physician Encounter [facility] [place] [facility] R [id number] Date(s): 05/18/20 - 05/18/[address] [address]- Discharge Disposition: A-D/C Home Attending Physician: Espinoza James MD Admitting Physician: Espinoza James MD Referring Physician: Espinoza James MD Allergies, Adverse Reactions, Alerts Substance Reaction Severity Status penicillin Active gabapentin Active Medications clonazePAM 0.5 mg oral tablet TK 1 T PO TID PRN ANXIETY Start Date: 03/12/20 Status: Ordered escitalopram 10 mg oral tablet TK 1 T PO QD Start Date: 03/12/20 Status: Ordered lisinopril 20 mg oral tablet 20 mg, 1, tablet, By Mouth, Daily, # 90 tablet, Refills 0, Tot. Refills 0, Maintenance, 05/12/20 9:54:00 EST, Route to Pharmacy Electronically, [facility] #[id number], Partial fill upon patient request if the prescription is for a schedule II opi... Start Date: 05/12/20 Stop Date: 08/10/20 Status: Ordered metFORMIN 1000 mg oral tablet 1 tablet = 1,000 mg, By Mouth, 2 times a day, # 60 tablet, 0 Refills, Maintenance, 03/15/20 12:57:00 EST, Tablet, [facility], Partial fill upon patient request, 178, cm, 03/15/20 11:15:00 EST, Height, 105, kg, 03/12/20 6:12:00 EST, Dry W... Start Date: 03/15/20 Status: Ordered ofloxacin 0.3% otic solution See Instructions, 5 drops Right ear once daily x 7 days, # 10 mL, Refills 0, Tot. Refills 0, Maintenance, 03/15/20 14:25:00 EST, Instructions Replace Required Details, Route to Pharmacy Electronically, [facility], Partial fill upon patie... Start Date: 03/15/20 Status: Ordered oxyCODONE 5 mg oral tablet See Instructions, 7 days one tablet 5 x day, # 35 tablet, Refills 0, Tot. Refills 0, Maintenance, 05/12/20 14:15:00 EST, Instructions Replace Required Details, Route to Pharmacy Electronically, [facility] #[id number], Partial fill upon patient r... Start Date: 05/12/20 Status: Ordered Probiotic Formula (Bacillus Coagulans) oral capsule 1 capsule, By Mouth, Daily, # 10 capsule, 0 Refills, Maintenance, 04/14/20 11:39:00 EST, Capsule, [facility] #[id number], Partial fill upon patient request if the prescription is for a schedule II opioid drug., 1 capsule By Mouth Daily, 178, cm,... Start Date: 04/14/20 Status: Ordered simvastatin 40 mg oral tablet 40 mg, 1, tablet, By Mouth, Daily at bedtime, # 30 tablet, Refills 0, Tot. Refills 0, Maintenance, 03/15/20 12:20:00 EST, Route to Pharmacy Electronically, [facility], Partial fill uponpatient request, 178, cm, 03/15/20 11:15:00 EST, He... Start Date: 03/15/20 Status: Ordered Problem List Condition Effective Dates Status Health Status Inform ant Benign hypertension(Confirmed) Active CAD (coronary artery disease)(Confirmed) 1 Active Chronic lower back pain(Confirmed) Active Diabetes mellitus(Confirmed) Active Dyslipidemia(Confirmed) Active 1angioplasty 2000; 3 stents at [facility] Vital Signs Most recent to oldest [Reference Range]: 1 2 Height 178 cm (05/18/20 6:35 AM) 178 cm (05/18/20 6:31 AM) Weight 104.5 kg (05/18/20 6:35 AM) 104.5 kg (05/18/20 6:31 AM) Oxygen Saturation [94-100 %] 94 % (05/18/20 6:15 AM) Pulse Rate [55-90 bpm] 88 bpm (05/18/20 6:15 AM) Blood Pressure [90-138/55-84 mm Hg] 159/ 84mm Hg *H* (05/18/20 6:15 AM) Respiratory Rate [16-30 br/min] 18 br/mi n (05/18/20 6:15 AM) Temperature [96.8-100.4 DegF] 97.6 DegF (05/18/20 6:15 AM) Mode of Delivery (Oxygen) Room air (05/18/20 6:15 AM) Blood pressure sites Arm, right (05/18/20 6:15 AM) Temperature Route Oral (05/18/20 6:15 AM) Dry Weight 104.5 kg (05/18/20 6:35 AM) Social History Social History Type Response Smoking Status Smoker, current stat us unknown; Type: Cigarettes; Other: 1/2-1 pk; entered on: 05/10/20 Sex
--- OUTSIDE RECORDS SUMMARY | 2023-04-11 15:26 | XMS_ITS | Continuity of Care Document ---
Author Name Unknown Organization [facility] Adult Address [address] [place] [address]- Care Team Providers Care Underground Conduit Installer Name Role Phone Luiz SALAS, Sonya Primary Care Physician [phone] Encounter [facility] [place] Date(s): 09/06/21 - 10/06/21 [facility] [address] [place] [phone]- Allergies, Adverse Reactions, Alerts Substance Reaction Severity [...] 5 Refills, Maintenance, 05/02/21 10:38:00 EST, Tablet, [facility]/pharmacy #[id number], [...] Electronically, [facility] [id number], 178, cm, 05/11/21 8:52:00 EST, Height, 81, [...] tablet, By Mouth, 5 times a day, OFFENDER EMPLOYMENT SPECIALIST checked. 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
--- OUTSIDE RECORDS SUMMARY | 2023-04-11 15:26 | XMS_ITS | Continuity of Care Document ---
Author Name Unknown Organization [facility] Adult Address [address] [place] [address]- Care Team Providers Care Slipman Name Role Phone Luiz LATIN DANCER, Sonya Primary Care Physician Encounter [facility] Date(s): 02/08/22 - 03/10/22 [facility] [address] [place] [phone]- Allergies, Adverse Reactions, Alerts Substance Reaction Severity [...] Not Given Patient Refuses 1Result Comment: [facility]: [id number] Medications Aspirin Low Dose 81 mg oral [...] tablet, 5 Refills, Maintenance, 01/17/22 14:43:00 EDT, [facility], 177, cm, 01/17/22 7:37:00 EDT, Height, [...] 5 Refills, Maintenance, 01/17/22 14:43:00 EDT, [facility], 177, cm, 01/17/22 7:37:00 EDT, Height, 75, kg, 01/11/22 12:33:00 EDT, Dry Weight Start Date: 01/17/22 Status: Ordered metFORMIN 1000 mg oral tablet 1 tablet, By Mouth, 2 times a day, # 56 tablet, 5 Refills, Maintenance, 01/17/22 14:43:00 EDT, [facility], 177, cm, 01/17/22 7:37:00 EDT, [...] Confirmed Active 1angioplasty 2000; 3 stents at [facility] 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 [...] Care Nurse Name: Gela Orosco RN Position: [facility] RN Member Role: Primary Care Nurse Name: Jessica Castrejon RN Position: S RN Member Role: Primary Care Nurse Name: Hien Hidalgo RN Position: [facility] RN Member Role: Primary Care Nurse Name: Evelyn Mcnulty RN Position: [facility] RN Member Role: Primary Care Nurse Name: Sonya Dee NP Position: [facility] PCO Associate Professional Member Role: PCP Address: Address: [address] [place] [address], [address] Name: Pola Reid RN Position: S [...] Care Nurse Name: Pat Fernando RN Position: [facility] RN Member Role: Primary Care Nurse Name: Randa Sagastume RN Position: [facility] RN Member Role: Primary Care Nurse Name: Liborio Palomares RN Position: [facility] RN Member Role: Primary Care Nurse Name: Yulia Veliz RN Position: [facility] RN Member Role: Primary Care Nurse Name: Chandni Ball RN Position: [facility] RN Member Role: Primary Care Nurse Name: Mitra Patel Position: [facility] RN Member Role: Primary Care Nurse Name: Kacie Campbell RN Position: [facility] RN Member Role: Primary Care Nurse Name: Chraito Vazquez RN Position: [facility] ED RN W/OE and Tasks Member Role: Primary Care Nurse Name: Dylan Bond RN Position: [facility] RN Member Role: Primary Care Nurse Name: Phuong Delgado RN Position: [facility] RN Member Role: Primary Care Nurse Name: Elie Davis RN Position: [facility] RN Member Role: Primary Care Nurse Name: Delfina Still RN Position: [facility] RN Member Role: Primary Care Nurse Name: Suzy Mccracken RN Position: [facility] RN Member Role: Primary Care Nurse Name: Rosio Gibbons RN Position: [facility] RN Member Role: Primary Care Nurse Name: Viyr Zacarias RN Position: [facility] RN Member Role: Primary Care Nurse Name: Kerri Cunha RN Position: [facility] Hospital Photoengraving Printer Member Role: Primary Care Nurse Name: Atiya Mcintyre RN Position: [facility] RN Member Role: Primary Care Nurse Care Team Related Persons Name: IBETH BRUNNER Address: home [address] [place], [place] Name: IBETH CORRAL Address: home [address] [place], [place]
--- OUTSIDE RECORDS SUMMARY | 2023-04-11 15:26 | XMS_ITS | Continuity of Care Document ---
Author Name Unknown Organization [facility] Adult Address [address] [place] [address]- Care Team Providers Care Solar Technician Name Role Phone Luiz SALAS, Sonya Primary Care Physician En[place] [facility] [place](s): 03/02/21 - 04/01/[address] [facility] Adult [address] [place] [address]- Allergies, Adverse Reactions, Alerts Substance Reaction Severity [...] Refills, Maintenance, 01/16/21 10:30:00 EDT, Tablet, [id number], Partial fill upon patient request if the [...] capsule, 11 Refills, Maintenance,01/16/21 10:26:00 EDT, Capsule, [facility]/pharmacy #[id number], Partial fill upon patient request if the prescription is for a schedule II opioid drug., 178, cm, 0... Start Date: 01/16/21 Stop Date: 01/11/22 Status: Ordered clonazePAM 0.5 mg oral tablet 1 tablet = 0.5 mg, By Mouth, 3 times a day, # 90 tablet, 1 Refills, Maintenance, 01/16/21 10:52:00 EDT, Tablet, [facility]/pharmacy #[id number], Partial fill upon patient request if the prescription is for a schedule II opioid drug., 178, cm, 12/29/20 5:31:00 EDT,... Start Date: 01/16/21 Stop Date: 03/17/21 Status: Ordered glimepiride 4 mg oral tablet 1 tablet, By Mouth, 2 times a day, # 60 tablet, 2 Refills, Maintenance, 01/16/21 10:26:00 EDT, [facility] #[id number], 178, cm, 12/29/20 5:31:00 EDT, Height, 100, kg, 12/26/20 16:53:00 EDT, Dry Weight Start Date: 01/16/21 Status: Ordered lactulose 10 gm/15 ml oral syrup 15 mL, By Mouth, Daily, PRN NEEDED FOR CONSTIPATION, # 473 mL, 0 Refills, [facility] [id number], 30, TAKE 15 ML BY MOUTH DAILY NEEDED FOR CONSTIPATION, 178, cm, 03/13/21 13:09:00 EST, Height, 100, kg, 12/26/20 16:53:00 EDT, Dry Weight Start Date: 03/27/21 Status: Ordered lisinopril 10 mg oral tablet 10 mg, 1, tablet, By Mouth, Daily, # 30 tablet, Refills 5, Tot. Refills 5, Maintenance, 01/16/21 10:29:00 EDT, Route to Pharmacy Electronically, [facility]/pharmacy #[id number], Partial fill upon patient request [...] Refills, Maintenance, 03/15/20 12:57:00 EST, Tablet, [facility], Partial fill upon patient request, 178, cm, 03/15/20 11:15:00 EST, Height, 105, kg, 03/12/20 6:12:00 EST, Dry W... Start Date: 03/15/20 Status: Ordered oxyCODONE 5 mg oral tablet 5 mg, 1, tablet, By Mouth, 5 times a day, SUPERVISOR CRACK OFF checked., # 140 tablet, Refills 0, Tot. 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
--- OUTSIDE RECORDS SUMMARY | 2023-04-11 15:26 | XMS_ITS | Continuity of Care Document ---
Author Name Unknown Organization [facility] Adult Address [address] [place] [address]- Care Team Providers Care Dry Chain Offbearer Name Role Phone Luiz SALAS, Sonya Primary Care Physician [phone] [facility] Date[facility] 02/14/21 - 03/16/21 [facility] [address] [place] [address]- Allergies, Adverse Reactions, Alerts Substance Reaction Severity [...] 01/16/21 10:30:00 EDT, Tablet, [facility]/pharmacy #[id number], Partial fill upon patient request if the prescription is for a schedule II opioid drug., 178, cm, 12/29/20 5:31:00 EDT, Height, 1... Start Date: 01/16/21 Stop Date: 07/15/21 Status: Ordered aspirin 81 mg oral tablet, chewable 81 mg, 1, tablet, By Mouth, Daily, # 30 tablet, Refills 5, Tot. Refills 5, Maintenance, 01/16/21 10:30:00 EDT, [facility]ically, [facility] Refills, Maintenance, 01/16/21 10:52:00 EDT, Tablet, [facility]/pharmacy #[id number], Partial fill upon patient request if the prescription is for a schedule II opioid drug., 178, cm, 12/29/20 5:31:00 EDT,... Start Date: 01/16/21 Stop Date: 03/17/21 Status: Ordered glimepiride 4 mg oral tablet 1 tablet, By Mouth, 2 times a day, # 60 tablet, 2 Refills, Maintenance, 01/16/21 10:26:00 EDT, [facility]/pharmacy #[id number], 178, cm, 12/29/20 5:31:00 EDT, Height, 100, kg, 12/26/20 16:53:00 EDT, Dry Weight Start Date: 01/16/21 Status: Ordered lactulose 10 gm/15 ml oral syrup 15 mL, By Mouth, Daily, PRN NEEDED FOR CONSTIPATION, # 473 mL, 0 Refills, [id number], 30, TAKE 15 ML BY MOUTH DAILY [...] 0 Refills, Maintenance, 03/15/20 12:57:00 EST, Tablet, [facility], Partial fill upon patient request, 178, cm, 03/15/20 11:15:00 EST, Height, 105, kg, 03/12/20 6:12:00 EST, Dry W... Start Date: 03/15/20 Status: Ordered oxyCODONE 5 mg oral tablet 5 mg, 1, tablet, By Mouth, 5 times a day, ARCHIVES TECHNICIAN checked., # 140 tablet, Refills 0, Tot. 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
--- OUTSIDE RECORDS SUMMARY | 2023-04-11 15:26 | XMS_ITS | Continuity of Care Document ---
Author Name Unknown Organization [facility] Adult Address [address] [place] [address]- Care Team Providers Care Grant Officer Name Role Phone Sonya Dee NP Primary Care Physician Encounter [facility] Date(s): 05/17/21 - 06/16/21 [facility] Adult [address] [place] [address]- Allergies, Adverse Reactions, Alerts Substance Reaction Severity [...] 07/15/21 10:30:00 EDT, 01/16/21 10:30:00 EDT, Tablet, [facility]/pharmacy #[id number], Partial fill upon patient request if the prescription is for a schedule II opioid drug., 178, cm... Start Date: 01/16/21 Stop Date: 07/15/21 Status: Ordered atorvastatin 40 mg oral tablet 1 tablet = 40 mg, By Mouth, Daily at bedtime, # 30 tablet, 5 Refills, Maintenance, 05/02/21 10:38:00 EST, Tablet, [facility]/pharmacy #[id number], Partial fill upon patient request if the prescription is for a schedule II opioid drug., 178, cm, 04/27/21 4:54:00 ES... Start Date: 05/02/21 Stop Date: 10/29/21 Status: Ordered cholecalciferol 50,000 intl units oral capsule 1 capsule = 50,000 International_Units, By Mouth, Every week, # 5 capsule, 11 Refills, Maintenance,05/02/21 10:36:00 EST, Capsule, [facility]/pharmacy #[id number], Partial fill upon patient request if the prescription is for a schedule II opioid drug., 178, cm, 0... Start Date: 05/02/21 Stop Date: 04/27/22 Status: Ordered clonazePAM 0.5 mg oral tablet 1 tablet = 0.5 mg, By Mouth, 3 times a day, # 90 tablet, 1 Refills, Maintenance, 05/02/21 12:49:00 EST, Tablet, [facility]/pharmacy #[id number], Partial fill upon patient request if the prescription is for a schedule II opioid drug., 178, cm, 04/27/21 4:54:00 EST,... Start Date: 05/02/21 Stop Date: 07/01/21 Status: Ordered clopidogrel 75 mg oral tablet 1, tablet, By Mouth, Daily, # 90 tablet, Refills 1, Route to Pharmacy Electronically, [id number], 178, cm, 05/11/21 8:52:00 EST, Height, 81, [...] # 473 mL, 0 Refills, [id number], 30, TAKE 15 ML BY MOUTH DAILY NEEDED FOR CONSTIPATION, 178, cm, 03/13/21 13:09:00 EST, Height, 100, kg, 12/26/20 16:53:00 EDT, Dry Weight Start Date: 04/20/21 Status: Ordered lisinopril 10 mg oral tablet 10 mg, 1, tablet, By Mouth, Daily, for 30 days, # 30 tablet, Refills 5, Tot. Refills 5, Hard Stop 07/15/21 10:29:00 EDT, 01/16/21 10:29:00 EDT, Route to Pharmacy Electronically, [facility]/pharmacy #[id number], Partial fill upon patient request if the prescription... Start Date: 01/16/21 Stop Date: 07/15/21 Status: Ordered magnesium oxide 400 mg oral tablet 1 tablet = 400 mg, By Mouth, Daily, for 30 days, # 30 tablet, 5 Refills, Acute 10/29/21 10:39:00 EDT, 05/02/21 10:39:00 EST, [id number] Partial fill upon patient request if the prescription is for a schedule II opioid drug., 178, cm,... Start Date: 05/02/21 Stop Date: 10/29/21 Status: Ordered metFORMIN 1000 mg oral tablet 1 tablet = 1,000 mg, By Mouth, 2 times a day, # 60 tablet, 5 Refills, Maintenance, 05/02/21 10:36:00 EST, Tablet, [facility]/pharmacy #[id number], Partial fill upon patient request, 178, cm, 04/27/21 4:54:00 EST,Height, 84.3, kg, 04/23/21 2:54:00 EST, Dry Weight Start Date: 05/02/21 Status: Ordered oxyCODONE 5 mg oral tablet 5 mg, 1, tablet, By Mouth, 5 times a day, ASPHALT SURFACE HEATER OPERATOR checked., # 140 tablet, Refills 0, Tot. Refills 0, Maintenance, 06/05/21 16:38:00 EST, Route to Pharmacy Electronically, [facility]/pharmacy #[id number], Partial fillupon patient request [...] 05/02/21 10:38:00 EST, Route to Pharmacy Electronically, [facility]/pharmacy #[id number], Partial fill upon patient request if the prescription is for a sc... Start Date: 05/02/21 Stop Date: 10/29/21 Status: Ordered Problem List Condition Effective Dates Status Health Status Inform ant Benign hypertension(Confirmed) Active CAD (coronary artery disease)(Confirmed) 1 Active Chronic lower back pain(Confirmed) Active Diabetes mellitus(Confirmed) Active Encephalopathy(Confirmed) Active Dyslipidemia(Confirmed) Active Acute ischemic stroke(Confirmed) 2 11/07/20 Active 1angioplasty 2000; 3 stents at [facility] [...]
--- OUTSIDE RECORDS SUMMARY | 2023-04-11 15:26 | XMS_ITS | Continuity of Care Document ---
Author Name Unknown Organization [facility] Adult Address [address] [place] [address]- Care Team Providers Care Hay Rake Operator Name Role Phone Luiz TECHNICIAN PLANT AND MAINTENANCE, Sonya Primary Care Physician [facility] Date[facility]s): 11/27/22 - 12/27/22 [facility] Adult [address] [place] [address]- Allergies, Adverse Reactions, Alerts Substance Reaction Severity [...] pneumococcal 23-valent vaccine 02/04/13 Recorded 1Result Comment: [facility]: [id number] Medications Acetaminophen = 650 mg, By Mouth, [...] Confirmed Active 1angioplasty 2000; 3 stents at [facility] 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 [...] Primary Care Nurse Name: Alicia Negron Position: [facility] RN Member Role: Primary Care Nurse Name: Jason Pereira RN Position: [facility] RN Member Role: Primary Care Nurse Name: Hanna Dailey Position: [facility] RN Member Role: Primary Care Nurse Name: Nereida Dobbins RN Position: [facility] RN Member Role: Primary Care Nurse Name: Gela Orosco RN Position: [facility] RN Member Role: Primary Care Nurse Name: Jessica Castrejon RN Position: [facility] RN Member [...] Associate Professional Member Role: PCP Address: Address: [address] [place] [address], [address] Name: Siddhartha Andino RN Position: [facility] RN Member Role: Primary Care Nurse Name: Pola Reid RN Position: [facility] RN Supshiela Member Role: Primary Care Nurse Name: Betzy Beckford RN Position: [facility] RN Member Role: Primary Care Nurse Name: Susie Galicia RN Position: [facility] RN Member [...] Care Nurse Name: Marquita Siddiqui RN Position: [facility] RN Member Role: Primary Care Nurse Name: Randa Sagastume RN Position: [facility] RN Member Role: Primary Care Nurse Name: Mitra Patel Position: [facility] RN Member Role: Primary Care Nurse Name: Kacie Campbell RN Position: [facility] RN Member Role: Primary Care Nurse Name: Charito Vazquez RN Position: [facility] ED RN W/OE and Tasks [...] RN Member Role: Primary Care Nurse Name: Brayedn Elizabeth RN Position: [facility] RN Member Role: Primary Care Nurse Name: Viry Zacarias RN Position: [facility] RN Member Role: Primary Care Nurse Name: Kerri Cunha RN Position: [facility] Hospital Director Geophysical Laboratory Member Role: Primary Care Nurse Name: Atiya Mcintyre RN Position: [facility] RN Member Role: Primary Care Nurse Care Team Related Persons Name: IBETH CORRAL Address: home [address] [place] [id number]
--- OUTSIDE RECORDS SUMMARY | 2023-04-11 15:26 | XMS_ITS | Continuity of Care Document ---
Author Name Unknown Organization [facility] Adult Address [address] [place] [address]- Care Team Providers Care Garage Hand Name Role Phone Luiz SALAS, Sonya Primary Care Physician [facility] Date[facility]s): 01/01/22 - 01/31/22 [facility] [address] [place] [phone]- Allergies, Adverse Reactions, Alerts Substance Reaction Severity [...] Maintenance, 01/17/22 14:43:00 EDT, [facility] ALIDA [facility], 177, cm, 01/17/22 7:37:00 EDT, Height, 75, kg, 01/11/22 12:33:00 EDT, Dry Weight Start Date: 01/17/22 Status: Ordered metFORMIN 1000 mg oral tablet 1 tablet, By Mouth, 2 times a day, # 56 tablet, 5 Refills, Maintenance, 01/17/22 14:43:00 EDT, [facility], 177, cm, 01/17/22 7:37:00 [...] 14:43:00 EDT, Route to Pharmacy Electronically, [facility], 177, cm, 01/17/22 7:37:00 EDT, Height, [...] 2000; 3 stents at [facility] 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 [...] Personnel Name: Sonya Dee NP Address: Address: [address] [place] [address], [address] [place], [place] [address]
--- OUTSIDE RECORDS SUMMARY | 2023-04-11 15:26 | XMS_ITS | Continuity of Care Document ---
Author Name Unknown Organization [facility] Adult Address [address] [place] [address]- Care Team Providers Care Vinyl Hanger Name Role Phone Luiz SALAS, Sonya Primary Care Physician [phone] [facility] Date(s): 11/28/21 - 12/28/21 [facility] Adult [address] [place] [phone]- Allergies, Adverse Reactions, Alerts Substance Reaction Severity [...] opioid drug. Start Date: 12/28/21 Status: Ordered lisinopril 5 mg oral tablet 5 mg, 1, tablet, By Mouth, Daily, # 30 tablet, Refills 5, Tot. Refills 5, Maintenance, 12/06/21 8:39:00 EDT, Route to Pharmacy Electronically, [facility], Partial fill upon patient request if the prescription is for a schedule II opioid drEvangelina. Start Date: 12/06/21 Stop Date: 06/04/22 Status: [...] Pharmacy Electronically, [facility]/pharmacy #[id number], Partial fill upon patient request if [...] Underweight(Confirmed) Active 1angioplasty 2000; [facility] [...] Personnel Name: Sonya Dee NP Address: [address] [facility], [address]rd [address] [place], [place] [address]
--- OUTSIDE RECORDS SUMMARY | 2023-04-11 15:26 | XMS_ITS | Continuity of Care Document ---
Author Name Unknown Organization [facility] ter Address [address] [place] [address]- Care Team Providers Care Sheet Heater Helper Name Role Phone Brett SAVAGE, Ursula Rao Primary Care Physician Encounter [facility] Date(s): 10/20/21 - 10/22/[address] [address]- Encounter Diagnosis Agitation(Final) - 10/20/21 Discharge Disposition: A-D/C Home Attending Physician: Delfina Norton MD Admitting Physician: Parker Cuello MD Referring Physician: Not on Staff, Referring [...] 5 Refills, Maintenance, 05/02/21 10:38:00 EST, Tablet, [facility]/pharmacy #[id number], Partial [...] to Pharmacy Electronically, [facility] [id number], 178, cm, 05/11/21 8:52:00 EST, Height, 81, [...] 10/22/21 16:00:00 EDT, Route to Pharmacy Electronically, [facility], Partial fill upon patient request if the prescription... Start Date: 10/22/21 Stop Date: 10/25/21 Status: Ordered Tums 500 mg oral tablet, chewable 500 mg, 1, tablet, Chew, 3 times a day, PRN, # 90 tablet, Refills 5, Tot. 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 S/P Elective Coiling of Unruptured Aneurysm with Subsequent Left-Sided Weakness: Acute nonhemorrhagic infarct in the RIGHT posterior frontal lobe: Vital Signs Most recent to oldest [Reference Range]: 1 2 3 Height 160 cm (10/22/21 7:52 AM) 160 cm (10/22/21 5:16 AM) 160 cm (10/21/21 7:38 PM) Weight 81.7 kg (10/21/21 7:38 PM) Oxygen Saturation [94-100 %] 95 % (10/22/21 7:52 AM) 95 % (10/22/21 5:16 AM) 95 % (10/21/21 5:48 PM) Pulse Rate [55-90 bpm] 92 bpm *H* (10/22/21 7:52 AM) 90 bpm (10/22/21 5:16 AM) 77 bpm (10/21/21 7:38 PM) Body Mass Index [18.5-24.99] 31.91 *>HHI* (10/21/21 7:38 PM) Blood Pressure [90-138/55-84 mm Hg] 131/66mm Hg (10/22/21 7:52 AM) 112/54mm Hg (10/22/21 5:16 AM) 112/56mm Hg (10/21/21 7:38 PM) Respiratory Rate [16-30 br/min] 18 br/min (10/22/21 7:52 AM) 19 br/min (10/22/21 5:16 AM) 18 br/min (10/21/21 7:38 PM) Temperature [96.8-100.4 DegF] 98 DegF (10/22/21 7:52 AM) 98.2 DegF (10/22/21 5:16 AM) 98.3 DegF (10/21/21 7:38 PM) Liters per Minute 2 L/min (10/22/21 5:16 AM) Mode of Delivery (Oxygen) Room air (10/22/21 7:52 AM) Nasal cannula (10/22/21 5:16 AM) Room air (10/21/21 5:48 PM) Blood pressure sites Arm, right (10/22/21 7:52 AM) Arm, right (10/22/21 5:16 AM) Arm, left (10/21/21 7:38 PM) Temperature Route Oral (10/22/21 7:52 AM) Oral (10/22/21 5:16 AM) Oral (10/21/21 7:38 PM) Dry Weight 81.7 kg (10/21/21 7:38 PM) Social History Social History Type Response Smoking Status Smoker, current stat us unknown; Type: Cigarettes; Other: 1/2-1 pk; entered on: 05/10/20 Sex
--- OUTSIDE RECORDS SUMMARY | 2023-04-11 15:26 | XMS_ITS | Continuity of Care Document ---
Author Name Unknown Organization [facility] Adult Address [address] [place] [address]- Care Team Providers Care Scuba Instructor Name Role Phone Luiz SALAS, Sonya Primary Care Physician [phone] [facility]s): 11/07/21 - 12/07/21 [facility] Adult [address] [place] [phone]- Allergies, Adverse Reactions, Alerts Substance Reaction Severity [...] [facility][id number], Partial fill upon patient request if the [...]
--- OUTSIDE RECORDS SUMMARY | 2023-04-11 15:26 | XMS_ITS | Continuity of Care Document ---
Author Name Unknown Organization [facility] Adult Address [address] [place] [address]- Care Team Providers Care Planning Division Superintendent Name Role Phone Luiz SALAS, Sonya Primary Care Physician [facility] Date(s): 08/25/21 - 09/24/21 [facility] Adult [address] [place] [address]- Allergies, Adverse Reactions, Alerts Substance Reaction Severity [...] Refills, Maintenance, 05/02/21 10:38:00 EST, [facility]t, [id number], Partial fill upon patient request if the [...] tablet, Refills 1, Route to Pharmacy Electronically, [id number], 178, cm, 05/11/21 8:52:00 EST, Height, 81, [...] tablet, By Mouth, 5 times a day, MEDICAL CHEMIST checked. fill on 09/15/21 20 tabs go [...] 05/02/21 10:38:00 EST, Route to Pharmacy Electronically, [facility]/pharmacy #[id number], Partial fill upon patient request if the [...]
--- OUTSIDE RECORDS SUMMARY | 2023-04-11 15:27 | XMS_ITS | Continuity of Care Document ---
Author Name Unknown Organization [facility] Adult Address [address] [place] [address]- Care Team Providers Care Mopper Name Role Phone Luiz MEDICAL TRANSPORT SPECIALIST, Sonya Primary Care Physician [facility] Date(s): 07/17/22 - 08/16/22 [facility] Adult [address] [place] [address]- Allergies, Adverse Reactions, Alerts Substance Reaction Severity [...] 05/26/20 Not Given Patient Refuses 1Result Comment: [facility]: [id number] Medications Aspirin Low Dose 81 mg oral [...] Maintenance, 07/31/22 13:23:00 EDT, [facility], 178, cm, 07/23/22 11:32:00 EDT, Height, [...] Route to Pharmacy Electronically, [facility] IRWIN [facility], 178, cm, 07/23/22 11:32:00 EDT, Height, [...] 0 Refills, Maintenance, 03/14/22 14:53:00 EST, Patch, [facility], Partial fill upon patient request [...] 07/19/22 8:33:00 EDT, Route to Pharmacy Electronically, [facility], 178, cm, 03/14/22 15:25:00 EST, [...] Confirmed Active 1angioplasty 2000; 3 stents at [facility] 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 [...] Primary Care Nurse Name: Hanna Dailey Position: [facility] RN Member Role: Primary Care Nurse Name: Gela Orosco RN Position: S RN Member Role: Primary Care Nurse Name: Jessica Castrejon RN Position: S RN Member Role: Primary Care Nurse Name: Hien Hidalgo RN Position: [facility] RN Member Role: Primary Care Nurse Name: Phuong Balderas RN Position: [facility] SN RN Member Role: Primary Care Nurse Name: Evelyn Mcnulty RN Position: S RN Member Role: Primary Care Nurse Name: Sonya Dee NP Position: [facility] PCO Associate Professional Member Role: PCP Address: Address: [address] [facility], [address]rd Floor [facility] [place] [address]- Name: Pola Reid RN Position: [facility] RN Supv Member Role: Primary Care Nurse Name: Betzy Beckford RN Position: [facility] RN Member Role: Primary Care Nurse Name: Karley Perry LPN Position: [facility] AMB Nurse Member Role: Primary Care Nurse Name: Zully Jara Position: [facility] RN Member Role: Primary Care Nurse Name: Yunior Bui RN Position: [facility] RN Member Role: Primary Care Nurse Name: Candace Liang RN Position: [facility] RN Member Role: Primary Care Nurse Name: Dedra Lezama Position: [facility] RN Member Role: Primary Care Nurse Name: Pat Fernando RN Position: [facility] RN Member Role: Primary Care Nurse Name: Randa Sagastume RN Position: [facility] RN Member Role: Primary Care Nurse Name: Mitra Patel Position: [facility] RN Member Role: Primary Care Nurse Name: Kacie Campbell RN Position: [facility] RN Member Role: Primary Care Nurse Name: Charito Vazquez RN Position: [facility] ED RN W/OE and Tasks Member Role: Primary Care Nurse Name: Dylan Bond RN Position: [facility] RN Member Role: Primary Care Nurse Name: Lydia Doherty RN Position: [facility] RN Member Role: Primary Care Nurse Name: Elie Davis RN Position: [facility] RN Member Role: Primary Care Nurse Name: Delfina Still RN Position: [facility] RN Member Role: Primary Care Nurse Name: Chandni Gibbons RN Position: [facility] RN Member Role: Primary Care Nurse Name: Rosio Gibbons RN Position: [facility] RN Member Role: Primary Care Nurse Name: Viry Zacarias RN Position: [facility] RN Member Role: Primary Care Nurse Name: Kerri Cunha RN Position: [facility] Hospital Tagman Member Role: Primary Care Nurse Name: Atiya Mcintyre RN Position: [facility] RN Member Role: Primary Care Nurse Care Team Related Persons Name: IBETH BRUNNER Address: home [address] [facility] [facility] [address] [place] [address] Name: IBETH CORRAL Address: home [address] [place] [address]
--- OUTSIDE RECORDS SUMMARY | 2023-04-11 15:27 | XMS_ITS | Continuity of Care Document ---
Author Name Unknown Organization [facility] ter Address [address] [place] [id number]- Care Team Providers Care Contracting Officer Name Role Phone Ursula West MD Primary Care Physician [place] [facility] [place]/03/22 - 12/03/[address] [address]- Encounter Diagnosis Hypoglycemia(Final) - 12/03/22 Discharge Disposition: A-D/C Home Attending Physician: Jesus Kidd MD Admitting Physician: Jesus Kidd MD Referring Physician: Not on Staff, Referring [...] Recorded 1Result Comment: [facility]: [id number] Medications albuterol-ipratropium 3 mg-0.5 mg/3 ml inhalation [...] Range]: 1 2 3 Height 178 cm (12/03/22 3:39 AM) 178 cm (12/03/22 12:54 AM) Weight 77.5 kg (12/03/22 3:39 AM) 77.5 kg (12/03/22 12:54 AM) Oxygen Saturation [94-100 %] 96 % (12/03/22 5:57 AM) 95 % (12/03/22 3:39 AM) 98 % (12/03/22 12:54 AM) Pulse Rate [55-90 bpm] 72 bpm (12/03/22 5:57 AM) 76 bpm (12/03/22 3:39 AM) 66 bpm (12/03/22 12:54 AM) Body Mass Index [18.5-24.99 kg/m2] 24.46 kg/m2 (12/03/22 3:39 AM) Blood Pressure [90-138/55-84 mm Hg] 145/65mm Hg *H* (12/03/22 5:57 AM) 184/65mm Hg *H* (12/03/22 3:39 AM) 138/57mm Hg (12/03/22 12:54 AM) Respiratory Rate [16-30 br/min] 17 br/min (12/03/22 5:57 AM) 16 br/min (12/03/22 3:39 AM) 16 br/min (12/03/22 12:54 AM) Temperature [96.8-100.4 DegF] 98.0 DegF (12/03/22 5:57 AM) 97.4 DegF (12/03/22 12:54 AM) Mode of Delivery (Oxygen) Room air (12/03/22 5:57 AM) Room air (12/03/22 3:39 AM) Room air (12/03/22 12:54 AM) Blood pressure sites Arm, left (12/03/22 5:57 AM) Arm, left (12/03/22 3:39 AM) Arm, left (12/03/22 12:54 AM) Temperature Route Oral (12/03/22 5:57 AM) Oral (12/03/22 12:54 AM) Dry Weight 77.5 kg (12/03/22 3:39 AM) 77.5 kg (12/03/22 12:54 AM) Weight Obtained Via Patient/family state d (12/03/22 12:54 AM) Dry Weight Obtained Via Patient/family s tated (12/03/22 12:54 AM) Social History Social History Type Response [...] Care Nurse Name: Nereida Dobbins RN Position: [facility] RN Member Role: Primary Care Nurse Name: Gela Orosco RN Position: [facility] RN Member Role: Primary Care Nurse Name: Jessica Castrejon RN Position: [facility] RN Member Role: Primary Care Nurse Name: Hien Hidalgo RN Position: [facility] RN Member Role: Primary Care Nurse Name: Phuong Balderas RN Position: [facility] SN RN Member Role: Primary Care Nurse Name: Evelyn Mcnulty RN Position: [facility] RN Member Role: Primary Care Nurse Name: Yanely Shanks RN Position: [facility] RN Member Role: Primary Care Nurse Name: Siddhartha Andino RN Position: [facility] RN Member Role: Primary Care Nurse Name: Pola Reid RN Position: [facility] RN Supv Member Role: Primary Care Nurse Name: Betzy Beckford RN Position: [facility] RN Member Role: Primary Care Nurse Name: Gabriella Gonsales RN Position: [facility] RN Member Role: Primary Care Nurse Name: Zully Jara Position: [facility] RN Member Role: Primary Care Nurse Name: Yunior Bui RN Position: [facility] RN Member Role: Primary Care Nurse Name: Candace Liang RN Position: [facility] RN Member Role: Primary Care Nurse Name: Marci Padilla RN Position: [facility] RN Member Role: Primary Care Nurse Name: Ursula West MD Position: [facility] Physician - Primary Care Member Role: PCP Address: Address: [address] [place] [address] [address] [facility] [place], [place] [address] Name: Florecita Ring RN Position: [facility] RN Member Role: Primary Care Nurse Name: Dedra Lezama Position: [facility] RN Member Role: Primary Care Nurse Name: Pat Fernando RN Position: [facility] RN Member Role: Primary Care Nurse Name: Randa Sagastume RN Position: [facility] RN Member Role: Primary Care Nurse Name: Mitra Patel Position: [facility] RN Member Role: Primary Care Nurse Name: Kacie Campbell RN Position: [facility] RN Member Role: Primary Care Nurse Name: Tammy Castillo RN Position: [facility] RN Member Role: Primary Care Nurse Name: Charito Vazquez RN Position: [facility] ED RN W/OE and Tasks Member Role: Primary Care Nurse Name: Dylan Bond RN Position: [facility] RN Member Role: Primary Care Nurse Name: Lydia Doherty RN Position: [facility] RN Member Role: Primary Care Nurse Name: Elie Davis RN Position: [facility] RN Member Role: Primary Care Nurse Name: Delfina Still RN Position: [facility] RN Member Role: Primary Care Nurse Name: Chandni Gibbons RN Position: [facility] SN RN Member Role: Primary Care Nurse Name: Brayden Elizabeth RN Position: [facility] RN Member Role: Primary Care Nurse Name: Viry Zacarias RN Position: [facility] RN Member Role: Primary Care Nurse Name: Kerri Cunha RN Position: [facility] International Logistics Manager Member Role: Primary Care Nurse Name: Atiya Mcintyre RN Position: [facility] RN Member Role: Primary Care Nurse Name: Paul Torrez Position: [facility] ED TA [facility] Member Role: Patient Care Provider Name: Kari Gerardo NP Position: [facility] Associate Professional Member Role: ED Physician Mammalogist Address: Address: [address] [place] [address]- Name: Oskar Brooks RN Position: [facility] ED RN W/OE and Tasks Member Role: Patient Care Provider Name: Jesus Kidd MD Position: [facility] ED Medicine MD Member Role: ED Attending Physician Address: Address: [address] [place] [address]- Care Team Related Persons Name: IBETH BRUNNER Address: [address] Name: IBETH CORRAL Address: [address]
--- OUTSIDE RECORDS SUMMARY | 2023-04-11 15:27 | XMS_ITS | Continuity of Care Document ---
Author Name Unknown Organization [facility] Adult Address [address] [place] [address]- Care Team Providers Care [place]isqueak Chalker Name Role Phone Luiz SALAS, Sonya Primary Care Physician [place] [facility] [place] [facility] [address] [place] [address]- Allergies, Adverse Reactions, Alerts Substance Reaction Severity [...] Recorded 1Result Comment: [facility]: [id number] Medications albuterol-ipratropium 3 mg-0.5 mg/3 ml inhalation [...] 11:46:00 EDT, Height, 79.5, kg, 10/20/22 13:34:00 EDTBrayan Start Date: 11/23/22 Stop Date: 11/18/23 Status: [...] Confirmed Active 1angioplasty 2000; 3 stents at [facility] 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 [...] Team Personnel Name: Adelia Landry RN Position: [facility] RN Member Role: Primary Care Nurse Name: Alicia Negron Position: [facility] RN Member Role: Primary Care Nurse Name: Hanna Dailey Position: [facility] RN Member Role: Primary Care Nurse Name: Nereida Dobbins RN Position: [facility] RN Member Role: Primary Care Nurse Name: Gela Orosco RN Position: [facility] RN Member Role: Primary Care Nurse Name: Jessica Castrejon RN Position: [facility] RN Member Role: Primary Care Nurse Name: Hien Hidalgo RN Position: [facility] RN Member Role: Primary Care Nurse Name: Phuong Balderas RN Position: [facility] RN Member Role: Primary Care Nurse Name: Evelyn Mcnulty RN Position: [facility] RN Member Role: Primary Care Nurse Name: Yanely Shanks RN Position: [facility] RN Member Role: Primary Care Nurse Name: Sonya Dee NP Position: [facility] PCO Associate Professional Member Role: PCP Address: Address: [address] [place] [address], 3rd Floor [facility] [place] [address]- Name: Siddhartha Andino RN Position: [facility] RN Member Role: Primary Care Nurse Name: Pola Reid RN Position: [facility] RN Supv Member Role: Primary Care Nurse Name: Betzy Beckford RN Position: [facility] RN Member Role: Primary Care Nurse Name: Gabriella Gonsales RN Position: [facility] RN Member Role: Primary Care Nurse Name: Zully Jara Position: [facility] RN Member Role: Primary Care Nurse Name: Yunior Bui RN Position: [facility] RN Member Role: Primary Care Nurse Name: Candace Liang RN Position: [facility] RN Member Role: Primary Care Nurse Name: Marci Padilla RN Position: [facility] RN Member Role: Primary Care Nurse Name: Florecita Ring RN Position: [facility] RN Member Role: Primary Care Nurse Name: Dedra Lezama Position: [facility] RN Member Role: Primary Care Nurse Name: Pat Fernando RN Position: [facility] RN Member Role: Primary Care Nurse Name: Randa Sagastume RN Position: [facility] RN Member Role: Primary Care Nurse Name: Mitra Patel Position: [facility] RN Member Role: Primary Care Nurse Name: Kacie Campbell RN Position: [facility] RN Member Role: Primary Care Nurse Name: Tammy Castillo RN Position: [facility] RN Member Role: Primary Care Nurse Name: Charito Vazquez RN Position: [facility] ED RN W/OE and Tasks Member Role: Primary Care Nurse Name: Dylan Bond RN Position: [facility] RN Member Role: Primary Care Nurse Name: Lydia Doherty RN Position: [facility] RN Member Role: Primary Care Nurse Name: Elie Davis RN Position: [facility] RN Member Role: Primary Care Nurse Name: Delfina Still RN Position: [facility] RN Member Role: Primary Care Nurse Name: Chandni Gibbons RN Position: [facility] SN RN Member Role: Primary Care Nurse Name: Brayden Elizabeth RN Position: [facility] RN Member Role: Primary Care Nurse Name: Viry Zacarias RN Position: [facility] RN Member Role: Primary Care Nurse Name: Kerri Cunha RN Position: [facility] Lpn Private Duty Member Role: Primary Care Nurse Name: Atiya Mcintyre RN Position: [facility] RN Member Role: Primary Care Nurse Care Team Related Persons Name: IBETH CORRAL Address: home [address] [place] [address] [address]LO[address] [facility] [id number]
--- OUTSIDE RECORDS SUMMARY | 2023-04-11 15:27 | XMS_ITS | Continuity of Care Document ---
Author Name Unknown Organization [facility] Adult Address [address] [place] [address]- Care Team Providers Care Lpn Home Health Name Role Phone Sonya Dee NP Primary Care Physician [place] [facility] [place] Date(s): 10/19/21 - 11/18/21 [facility] Adult [address] [place] [id number]- Allergies, Adverse Reactions, Alerts Substance Reaction Severity [...] 28 tablet, 0 Refills, [facility], 160, cm, 10/22/21 7:52:00 EDT, Height, [...] tablet, Refills 1, Route to Pharmacy Electronically, [facility] ST[id number], 178, cm, 05/11/21 8:52:00 EST, Height, 81, [...] 10/22/21 16:00:00 EDT, Route to Pharmacy Electronically, [facility], Partial fill upon patient request if the prescription... Start Date: 10/22/21 Stop Date: 10/25/21 Status: Ordered Tums 500 mg oral tablet, chewable 500 mg, 1, tablet, Chew, 3 times a day, PRN, # 90 tablet, Refills 5, Tot. Refills 5, Maintenance, Dyspepsia, 05/02/21 10:38:00 EST, Route to Pharmacy Electronically, [facility]/pharmacy #[id number], Partial fill upon patient request if the [...]
--- OUTSIDE RECORDS SUMMARY | 2023-04-11 15:27 | XMS_ITS | Continuity of Care Document ---
Author Name Unknown Organization [facility] Adult Address [address] [place] [address]- Care Team Providers Care Associate Of Science In Nursing Name Role Phone Sonya Dee NP Primary Care Physician [place] [facility] [place] [facility] [place] 05/11/21 - 05/18/21 [facility] Adult [address] [place] [id number]- Encounter Diagnosis Recurrent falls(Discharge Diagnosis) - 05/11/21 History of CVA (cerebrovascular accident)(Discharge Diagnosis) - 05/11/21 Attending Physician: Not on Staff, Attending MD [...] 5 Refills, Maintenance, 05/02/21 10:38:00 EST, Tablet, [facility]/pharmacy #[id number], Partial fill upon patient request if the prescription is for a schedule II opioid drug., 178, cm, 04/27/21 4:54:00 ES... Start Date: 05/02/21 Stop Date: 10/29/21 Status: Ordered cholecalciferol 50,000 intl units oral capsule 1 capsule = 50,000 International_Units, By Mouth, Every week, # 5 capsule, 11 Refills, Maintenance,05/02/21 10:36:00 EST, Capsule, [facility]/pharmacy #[id number], Partial fill upon patient request if the prescription is for a schedule II opioid drug., 178, cm, 0... 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 S/P Elective Coiling of Unruptured Aneurysm with Subsequent Left-Sided Weakness: Acute nonhemorrhagic infarct in the RIGHT posterior frontal lobe: Diagnosis Diagnosis Type Effective Dates Health Status Cl inical Service Informant Recurrent falls Discharge Diagnosis 05/11/21 History of CVA (cerebrovascular accident) Discharge Diagnosis 05/11/21 Vital Signs Most recent to oldest [Reference Range]: 1 Height 178 cm (05/11/21 8:52 AM) Oxygen Saturation [94-100 %] 97 % (05/11/21 8:52 AM) Blood Pressure [90-138/55-84 mm Hg] 125/ 73mm Hg (05/11/21 8:52 AM) Temperature [96.8-100.4 DegF] 98.3 DegF (05/11/21 8:52 AM) Mode of Delivery (Oxygen) Room air (05/11/21 8:52 AM) Temperature Route Oral (05/11/21 8:52 AM) Social History Social History Type Response Smoking Status Smoker, current stat us unknown; Type: Cigarettes; Other: 1/2-1 pk; entered on: 05/10/20 Sex
--- NOTE | 2023-04-11 15:52 | ED.GENADULT ---
HPI - General Adult General Chief complaint: Behavioral Concerns Stated complaint: SEC 12 FOR OUTBURST FROM SNF,H/O DEMENTIA PER EMS Time Seen by Provider: 04/11/23 15:01 Source: EMS Mode of arrival: EMS Limitations: other ( Dementia) History of Present Illness HPI narrative: patient comes to the emergency room by ambulance from a prison facility. According to the staff, they reported to EMS that the patient is acting aggressive and they are all female crew and cannot take care of him . patient is awake, alert, as mentioned above has dementia, cannot give acute history. Patient denies any pain. Patient is calm and cooperative watching TV Related Data Home Medications Medication Instructions Recorded Confirmed ascorbic acid (vitamin C) 500 mg 500 mg PO DAILY 01/26/23 01/26/23 tablet (Vitamin C) atorvastatin 40 mg tablet 40 mg PO DAILY 01/26/23 01/26/23 cholecalciferol (vitamin D3) 1,250 50,000 unit PO FR@0900 01/26/23 01/26/23 mcg (50,000 unit) capsule clopidogrel 75 mg tablet 75 mg PO DAILY 01/26/23 01/26/23 lisinopril 5 mg tablet 5 mg PO DAILY 01/26/23 01/26/23 magnesium oxide 400 mg (241.3 mg 400 mg PO DAILY 01/26/23 01/26/23 magnesium) tablet metformin 1,000 mg tablet 1,000 mg PO BID 01/26/23 01/26/23 pantoprazole 40 mg tablet,delayed 40 mg PO DAILY PRN Acid Reflux 01/26/23 01/26/23 release pregabalin 50 mg capsule (Lyrica) 50 mg PO BID 01/26/23 01/26/23 sertraline 25 mg tablet 25 mg PO DAILY 01/26/23 01/26/23 thiamine HCl (vitamin B1) 100 mg 100 mg PO DAILY 01/26/23 01/26/23 tablet (Vitamin B-1) Previous Rx's Medication Instructions Recorded insulin lispro 100 unit/mL See Protocol subcut QIDACHS #10 mL 02/06/23 subcutaneous solution (Humalog U-100 Insulin) tamsulosin 0.4 mg capsule (Flomax) 0.4 mg PO BEDTIME #30 caps 03/08/23 Allergies Allergy/AdvReac Type Severity Reaction Status Date / Time gabapentin [GABAPENTIN] Allergy Unknown N/V Verified 11/16/23 22:24 Penicillins [PENICILLINS] Allergy Unknown RASH Verified 03/07/23 22:24 pregabalin [From LYRICA] Allergy Unknown N/V Verified 03/07/23 22:24 cephalosporin Allergy Unknown Itching Uncoded 10/03/22 11:01 Penicillin Allergy Unknown Swelling Uncoded 10/03/22 11:01 Review of Systems Review of Systems: Yes Unobtainable due to mental status PMFSH Past Medical History Medical History CLEOPATRA on CPAP Seizure disorder Vascular dementia CVA (cerebral vascular accident) COPD (chronic obstructive pulmonary disease) Hypertension Type 2 diabetes mellitus Social History Social History Household Members: Significant Other Housing: Apartment Do you presently have visiting nurse or other home services: No Patient Tobacco Use Status: Current everyday Tobacco user Tobacco use type: Cigarette Cigarettes Per Day: 8 Use of substances other than those prescribed or required for medical reasons: No Substance Use Type: Marijuana Advance Directives: Yes Advance Directives on File: Yes Advance Directives Date on File: 03/08/23 service: No Physical Exam ED Vital Signs: Vital Signs - 24 hr 04/11/23 14:12 04/11/23 18:00 04/11/23 18:33 Temperature 98.3 F Pulse Rate 84 74 Respiratory Rate 18 18 16 Blood Pressure 112/63 166/77 H Pulse Oximetry 97 98 Oxygen Delivery Method Room Air Room Air BMI result Body Mass Index 22.2 Const Other: Appearance: Alert. oriented x1 to name, calm and cooperative Eyes: Pupils equal, round and reactive to light. ENT: Pharynx normal. Neck: Normal inspection. Neck supple. No lymph nodes noted. No crepitus CVS: Normal heart rate and rhythm. Pulses normal. Normal S1 and S2 Respiratory: No respiratory distress. Breath sounds normal. No Wheezing. No rales Abdomen: Soft and nontender. No rigidity. No distention. Skin: Skin warm and dry. Normal skin color. Normal skin turgor. Extremities: No lower extremity edema. No Lacerations. No Rash Neuro: Oriented X 1 , unable to participating cranial nerve assessment, but moves all extremities spontaneously Psych: calm, cooperative, Course Course Course Narrative: patient coming from a prison facility, patient known to have dementia, exhibiting dementia like behaviors at the nursing facility, here patient is cooperative - basic labs and urinalysis pending Medical Decision Making Medical Decision Making [facility] Narrative: -my interpretation of labs: Hematology and chemistry at baseline, urinalysis negative -here in the emergency room, patient has been watching TV, calm, not aggressive at all Differential Diagnosis Differential Diagnoses: The differential diagnosis associated with the presentation includes (Dementia, UTI) Lab Data [facility] Lab Attestation statement: I reviewed the patient's lab results. 04/11/23 15:58 04/11/23 15:58 Labs: Lab Results 04/11/23 04/11/23 Range/Units 15:58 19:28 WBC 8.0 (4.8-10.8) X10*3/uL RBC 4.01 L (4.60-5.80) X10*6/uL Hgb 12.5 L (14.0-18.0) g/dl Hct 36.9 L (42.0-52.0) % MCV 92.0 (80.0-98.0) fL MCH 31.2 (27.0-33.0) pg MCHC 33.9 (31.0-36.0) g/dl RDW 13.2 (11.0-16.0) % Plt Count 224 (160-400) X10*3/uL MPV 8.7 L (9.4-12.4) fL Immature Gran % (Auto) 0.4 (0.0-0.4) % Neut % (Auto) 70.8 (45-73) % Lymph % (Auto) 20.4 (20-40) % [place] % (Auto) 7.2 (2-11) % Eos % (Auto) 0.7 (0-4) % Baso % (Auto) 0.5 (0-2) % Lymph # (Auto) 1.6 (1.2-4.9) X10*3/uL [place] # (Auto) 0.6 (0.1-1.2) X10*3/uL Eos # (Auto) 0.1 (0.0-0.4) X10*3/uL Baso # (Auto) 0.0 (0.0-0.2) X10*3/uL Abs Immat Gran (auto) 0.03 (0.00-0.03) X10*3/uL Absolute Neuts (auto) 5.7 (2.0-8.3) x10*3/uL Absolute Nucleated RBC 0.000 (0.0-0.012) X10*3/uL Nucleated RBC % (auto) 0.0 (0.0-0.2) /100WBC Sodium 144 (135-145) mmol/L Potassium 3.6 (3.3-5.1) mmol/L Chloride 106 (96-108) mmol/L Carbon Dioxide 28 (22-29) mmol/L Anion Gap 14 (12-20) BUN 7 L (9-16) mg/dL Creatinine 0.62 (0.5-1.4) mg/dL Estim Creat Clear Calc 123.0 Estimated GFR > 60 Random Glucose 86 (60-115) mg/dL Calcium 9.1 (8.4-10.2) mg/dL Total Bilirubin 0.8 (0.0-1.0) mg/dL Direct Bilirubin 0.4 (0.0-0.5) mg/dL AST 10 (5-37) U/L ALT 5 (0-40) U/L Alkaline Phosphatase 73 (39-117) U/L Total Protein 6.6 (6.5-8.0) g/dL Albumin 3.9 (3.5-5.0) g/dL Urine Color Yellow Urine Appearance Clear Urine pH 6.5 (5.0-9.0) Ur Specific [place] 1.015 (1.005-1.025) Urine Protein Negative (Neg-Trace) mg/dL Urine Glucose (UA) Negative (Negative) mg/dL Urine Ketones Negative (Negative) mg/dL Urine Blood Negative (Negative) Urine Nitrite Negative (Negative) Ur Leukocyte Esterase Negative (Negative) Discharge Plan Discharge Clinical Impression: Dementia Patient Disposition: Home, Self-Care Instructions: Dementia (ED) Additional Instructions: Please follow-up with your primary care physician tomorrow. If you have any worsening or new symptoms, please return to the emergency room or call 911 Prescriptions: No Action atorvastatin 40 mg tablet 40 mg PO DAILY thiamine HCl (vitamin B1) [Vitamin B-1] 100 mg tablet 100 mg PO DAILY clopidogrel 75 mg tablet 75 mg PO DAILY magnesium oxide 400 mg (241.3 mg magnesium) tablet 400 mg PO DAILY ascorbic acid (vitamin C) [Vitamin C] 500 mg tablet 500 mg PO DAILY pantoprazole 40 mg tablet,delayed release (DR/EC) 40 mg PO DAILY PRN (Reason: Acid Reflux) metformin 1,000 mg tablet 1,000 mg PO BID sertraline 25 mg tablet 25 mg PO DAILY lisinopril 5 mg tablet 5 mg PO DAILY pregabalin [Lyrica] 50 mg capsule 50 mg PO BID cholecalciferol (vitamin D3) 1,250 mcg (50,000 unit) capsule 50,000 unit PO FR@0900 insulin lispro [Humalog U-100 Insulin] 100 unit/mL Solution See Protocol subcut QIDACHS Qty: 10 0RF Protocol: Insulin Correction Scale Less than or equal to 110 ---- Give (units): 0 111 to 150 Give (units): 0 151 to 200 Give (units): 2 201 to 250 Give (units): 4 251 to 300 Give (units): 6 301 to 350 Give (units): 8 Greater than 350 Give (units): 10 Call MD if Blood Glucose > : 350 tamsulosin [Flomax] 0.4 mg capsule 0.4 mg PO BEDTIME Qty: 30 0RF
[2023-04-11 16:01] LABS: MANUAL DIFF FLAG NO
[2023-04-11 16:11] LABS: Basophils Percent Auto 0.5 % (0-2); Eosinophils Absolute Auto 0.1 X10*3/uL (0.0-0.4); Eosinophils Percent Auto 0.7 % (0-4); Hematocrit 36.9 % (42.0-52.0); Hemoglobin 12.5 g/dl (14.0-18.0); Imm Gran Abs Auto 0.03 X10*3/uL (0.00-0.03); Imm Gran Pct Auto 0.4 % (0.0-0.4); Lymphocytes Absolute Auto 1.6 X10*3/uL (1.2-4.9); Lymphocytes Percent Auto 20.4 % (20-40); Mean Corpuscular HGB Conc 33.9 g/dl (31.0-36.0); Mean Corpuscular Hemoglobin 31.2 pg (27.0-33.0); Mean Platelet Volume 8.7 fL (9.4-12.4); Monocytes Absolute Auto 0.6 X10*3/uL (0.1-1.2); Monocytes Percent Auto 7.2 % (2-11); Neutrophils Absolute Auto 5.7 x10*3/uL (2.0-8.3); Neutrophils Percent Auto 70.8 % (45-73); Platelet Count 224 X10*3/uL (160-400); Red Blood Count 4.01 X10*6/uL (4.60-5.80); Red Cell Distribution Width 13.2 % (11.0-16.0)
[2023-04-11 16:22] LABS: Alanine Aminotransferase 5 U/L (0-40); Albumin Level 3.9 g/dL (3.5-5.0); Alkaline Phosphatase 73 U/L (39-117); Anion Gap 14 (12-20); Aspartate Amino Transferase 10 U/L (5-37); Bilirubin Direct 0.4 mg/dL (0.0-0.5); Bilirubin Total 0.8 mg/dL (0.0-1.0); Blood Urea Nitrogen 7 mg/dL (9-16); Calcium 9.1 mg/dL (8.4-10.2); Carbon Dioxide 28 mmol/L (22-29); Chloride 106 mmol/L (96-108); Estimated Glomerular Filt Rate > 60; Glucose Random 86 mg/dL (60-115); Potassium 3.6 mmol/L (3.3-5.1); Sodium 144 mmol/L (135-145); Total Protein 6.6 g/dL (6.5-8.0)
[2023-04-11 18:00] VITALS: RESP 18
[2023-04-11 18:33] VITALS: BP 166/77; PULSE 74; RESP 16; O2SAT 98
[2023-04-11 19:47] LABS: Appearance Urine Clear; Color Urine Yellow; Glucose Urine UA Negative (Negative); Leukocyte Esterase Urine Negative (Negative); Nitrite Urine Negative (Negative); PH 6.5 (5.0-9.0); Specific Gravity - Urine 1.015 (1.005-1.025); Urine Blood Negative (Negative); Urine Ketones Negative (Negative); Urine Protein Negative (Neg-Trace)
--- NOTE | 2023-04-11 21:55 | PC.NURSE ---
This RN called [facility] 2nd floor and spoke to nurse Aydin. Warm hand off provided and explained to RN that the patient was confused but calm and cooperative following commands. Patient does not require section at this time, all labs unremarkable and u/a was negative. This is symptoms f his dementia at this time. Report also given to EMS. This RN spoke with pt's Montse and she was updated on pts condition and that he would be going back to [facility] .
== END 2023-04-11 21:15 | disposition home or self-care (01) ==
PROVIDERS: Emergency Provider Emergency Medicine; PCP Family Medicine
DX: F03.911 Unspecified dementia, unspecified severity, with agitation (principal); Z79.899 Other long term (current) drug therapy
CPT/HCPCS: 36415; 80048; 80076; 81003; 85025; 99283; 99284

== ENCOUNTER 2023-12-07 10:35 | Inpatient (IN) | payer MEDICARE, SELFPAY ==
[2023-12-07] VITALS (13 sets, daily range): BP systolic 92–122; BP diastolic 41–75; PULSE 73–122; RESP 15–25; TEMP 36.8–39.1; O2SAT 86–99; BMI 24.0
--- NOTE | ~2023-12-07 | US_ITS ---
EXAMINATION: US Limited abdomen gallbladder CLINICAL INFORMATION: Follow-up CT scan right upper quadrant pain COMPARISON: CT scan same day earlier TECHNIQUE: High-frequency curvilinear transducer ultrasound utilized, area of interest scanned, right upper quadrant gallbladder scanned. FINDINGS: There is circumferential wall thickening of the gallbladder measuring up to 1.1 cm, low-attenuation suggesting edema. No definitive stone is however visualization of the gallbladder is limited partially obscured by bowel gas. Common bile duct could not be visualized. US/US abdomen limited IMPRESSION: 1. Exam limited by patient's body habitus, bowel gas, patient unable to hold breath.. 2. There is circumferential wall thickening of the gallbladder up to 1.1 cm, low-attenuation of its wall suggesting edema/pericholecystic fluid. Although no gallstone visualized however visualization of the gallbladder is limited, gallbladder neck could not be visualized or assess for possible stones. In the right clinical setting CANNOT RULE OUT CHOLECYSTITIS, please correlate with the clinical exam, consider surgical evaluation, May utilize follow-up HIDA scan.
--- NOTE | ~2023-12-07 | NM_ITS ---
EXAMINATION: BILIARY TRACT IMAGING STUDY WITH CCK CLINICAL INFORMATION: Question cholecystitis. Abdominal pain.. COMPARISON: No previous biliary scan is available for comparison. Abdominal ultrasound dated 12/07/[address] scan of the abdomen done pelvis also on 12/07/2023 are available for comparison.. TECHNIQUE: Serial gamma scintillation camera images were obtained over the abdomen for a total observation period of 95 minutes following the intravenous administration of 5 mCi Tc-99m Mebrofenin. FINDINGS: There is good concentration of activity in the liver by 5 minutes post injection. Biliary activity is visualized by 10 minutes. The gallbladder is well visualized by 45 minutes. Small bowel is well visualized by 15 minutes. At 65 minutes post radiopharmaceutical injection, a 30-minute infusion of 1.5 micrograms Sincalide was then begun and an additional 40 minutes of images were obtained. There is good emptying of the gallbladder. By the end of the study there is good clearance of activity from the liver and visualization of diffuse small bowel activity. The calculated gallbladder ejection fraction is 84% (normal gallbladder ejection fraction is greater than 35%). NM/NM hepatobiliary w pharm IMPRESSION: Visualization of the gallbladder is evidence of a patent cystic duct and strong evidence against the diagnosis of acute cholecystitis. The common bile duct is patent. Gallbladder emptying and ejection fraction are normal. Liver function appears normal.
--- NOTE | ~2023-12-07 | XR_ITS ---
EXAMINATION: XR chest 1V CLINICAL INFORMATION: Reason for Exam cough, hypoxia COMPARISON: Prior x-ray 03/22/2023 TECHNIQUE: Single portable frontal view. Tubes and lines: None Lungs and pleura: Mild interstitial right parahilar infiltrates. No dense lobar consolidation, no pleural effusion. Heart and mediastinum: The mediastinum is within normal limits.. Bones/soft tissue: Skeletal structures included are normal for patient's age. XR/XR chest 1V IMPRESSION: 1. Mild right parahilar interstitial infiltrates. 2. No dense lobar consolidation or pleural effusion.
--- NOTE | ~2023-12-07 | CT_ITS ---
EXAMINATION: CT ABDOMEN AND PELVIS WITH CONTRAST CLINICAL INFORMATION: Abdominal pain, fevers, nausea dimension. COMPARISON: None available. TECHNIQUE: Multidetector volumetric images were obtained from the superior aspect of the liver through the pubic symphysis following administration 85 mL of Omnipaque 350 intravenous contrast. Sagittal and coronal reformatted images were obtained on the technologist's workstation. Oral contrast: No This CT examination was performed using dose optimization techniques as appropriate, variously including the following: *Automated exposure control *Adjustment of mA and/or kV according to patient size (this includes techniques or standardized protocols for targeted exams where dose is matched to indication/reason for exam; i.e. extremities or head) *Use of iterative reconstruction technique DLP: 700 mGy-cm FINDINGS: LUNG BASES: The bronchial carreno are thickened in the visualized lower lobes and there are endobronchial secretions. Patchy airspace opacity in the posterior right lower lobe. No pleural effusion. HEPATOBILIARY: Liver has normal size, shape, and attenuation. Gallbladder is physiologically distended. There appears to be gallbladder wall edema at its interface with the liver. No evidence of gallstones. There is no edema/stranding of the pericholecystic fat. No dilated bile ducts. PANCREAS: Moderately atrophied pancreas. Coarse calcifications within the pancreatic head compatible with sequela of chronic pancreatitis. No acute inflammatory changes. SPLEEN: Normal. ADRENAL GLANDS: Normal. KIDNEYS AND URETERS: Kidneys are normal in size and enhance symmetrically. No hydronephrosis or perinephric edema. Punctate calyceal stone of the lateral upper pole of the right kidney (image [id number], series 4). Probable punctate stone in the lateral aspect of the interpolar region of the left kidney. Simple cysts of each kidney. No renal imaging follow-up is recommended for simple cysts. The ureters are unremarkable. BLADDER: Normal. BOWEL AND PERITONEUM: No dilated bowel loops. There are diverticula of the colon without evidence of diverticulitis. No evidence of an inflammatory process along the gastrointestinal tract. No abdominal free fluid or free air. ABDOMINAL WALL: Unremarkable. VASCULATURE: Atherosclerosis of the abdominal aorta and iliac arteries without aneurysm. LYMPH NODES: No pathologic sized lymph nodes in the abdomen or pelvis. No inguinal lymphadenopathy. PELVIC VISCERA: Unremarkable. MUSCULOSKELETAL: Prior subcapital neck fracture of the left femur, status post screw fixation. No acute osseous injury. Multilevel osteophyte formation of the spine. 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 CT/CT abdomen pelvis w IV con IMPRESSION: * The bronchial carreno in the visualized lower lobes are thickened and the airspace opacity in the posterior right lower lobe is consistent with pneumonia. No pleural effusion. * There appears to be edema of the gallbladder wall at its interface with the liver. No gallstones. No overt cholecystitis. Consider correlation with liver function tests. * The coarse calcifications within the pancreatic head are compatible with sequela of chronic pancreatitis. There are no acute pancreatic inflammatory changes. * Punctate renal calculi.
--- NOTE | 2023-12-07 10:36 | ECG_ITS ---
Test Reason : WEAKNESS Blood Pressure : / mmHG Vent. Rate : 123 BPM Atrial Rate : 123 BPM P-R Int : 130 ms QRS Dur : 126 ms QT Int : 330 ms P-R-T Axes : 069 159 036 degrees QTc Int : 472 ms Sinus tachycardia with occasional Premature ventricular complexes Right bundle branch block Left posterior fascicular block Bifascicular block Abnormal ECG When compared with ECG of 29-JAN-2023 17:28, Premature ventricular complexes are now Present Vent. rate has increased BY 68 BPM Referred By: Ashlie Cavazos Electronically Signed By:ROSE DUARTE
--- NOTE | 2023-12-07 10:41 | ED_ITS ---
HPI - Fever General Chief Complaint: Fever Stated Complaint: FEVER,SEPSIS ALERT Source: patient, EMS and old records reviewed Mode of arrival: EMS Limitations: other (poor historian - dementia) History of Present Illness ED Provider: SEBASTIAN HPI Narrative: 68 yo male with PMH of vascular dementia, t2DM, HTN, COPD, HLD, CVA on plavix, CAD, neuropathy, pneumonia in past here with c/o staff at [facility] noticing he was off today chills, lower O2 sats, staring off. EMS called. They also noted a cough. He tells me he has nausea, doesn't feel well and his stomach hurts. 88% on RA on arrival. MD elicited complaint: fever, malaise and weakness Onset (ago): day(s) (reportedly this AM) Context: sick contacts (lives in SNF) Exacerbating factors: nothing Relieving factors: nothing Associated symptoms: chills, cough, shortness of breath, abdominal pain, nausea, confusion and other (cough) Treatments prior to arrival fever: none Related Data Home Medications ?Medication ?Instructions ?Recorded ?Confirmed ascorbic acid (vitamin C) 500 mg 500 mg PO DAILY 01/26/23 01/26/23 tablet (Vitamin C) atorvastatin 40 mg tablet 40 mg PO DAILY 01/26/23 01/26/23 cholecalciferol (vitamin D3) 1,250 50,000 unit PO FR@0900 01/26/23 01/26/23 mcg (50,000 unit) capsule clopidogrel 75 mg tablet 75 mg PO DAILY 01/26/23 01/26/23 lisinopril 5 mg tablet 5 mg PO DAILY 01/26/23 01/26/23 magnesium oxide 400 mg (241.3 mg 400 mg PO DAILY 01/26/23 01/26/23 magnesium) tablet metformin 1,000 mg tablet 1,000 mg PO BID 01/26/23 01/26/23 pantoprazole 40 mg tablet,delayed 40 mg PO DAILY PRN Acid Reflux 01/26/23 01/26/23 release pregabalin 50 mg capsule (Lyrica) 50 mg PO BID 01/26/23 01/26/23 sertraline 25 mg tablet 25 mg PO DAILY 01/26/23 01/26/23 thiamine HCl (vitamin B1) 100 mg 100 mg PO DAILY 01/26/23 01/26/23 tablet (Vitamin B-1) Previous Rx's ?Medication ?Instructions ?Recorded insulin lispro 100 unit/mL See Protocol subcut QIDACHS #10 mL 02/06/23 subcutaneous solution (Humalog U-100 Insulin) tamsulosin 0.4 mg capsule (Flomax) 0.4 mg PO BEDTIME #30 caps 03/08/23 Allergies Allergy/AdvReac Type Severity Reaction Status Date / Time gabapentin [GABAPENTIN] Allergy Unknown N/V Verified 12/07/23 10:47 Penicillins [PENICILLINS] Allergy Unknown RASH Verified 12/07/23 10:47 pregabalin [From LYRICA] Allergy Unknown N/V Verified 12/07/23 10:47 cephalosporin Allergy Unknown Itching Uncoded 12/07/23 10:47 Penicillin Allergy Unknown Swelling Uncoded 12/07/23 10:47 Review of Systems 2 Review of Systems: Constitutional : pos Fever, pos Chills, pos Fatigue ENT/Mouth : No sore throat, No Rhinorrhea Eyes: No Eye Pain, No Swelling, No Redness Cardiovascular : No Chest Pain, No SOB, No Dyspnea on Exertion Respiratory : No Cough, No Sputum Gastrointestinal : pos Nausea, No Vomiting, No Diarrhea, pos abdominal Pain Genitourinary : No Dysuria, No Urinary Frequency, No Hematuria, Musculoskeletal : No joint pain, No Myalgias, No Joint Swelling Skin : No Skin Lesions, No rash Neuro : No Weakness, No Numbness, No Dizziness, no Headache All other systems reviewed and are negative [facility] Past Medical History Source: old records reviewed Medical History CLEOPATRA on CPAP Seizure disorder Vascular dementia CVA (cerebral vascular accident) COPD (chronic obstructive pulmonary disease) Hypertension Type 2 diabetes mellitus Social History Social History Household Members: Significant Other Housing: Apartment Do you presently have visiting nurse or other home services: No Patient Tobacco Use Status: Current everyday Tobacco user Tobacco use type: Cigarette Cigarettes Per Day: 8 Smoked in Last 30 Days: No Use of substances other than those prescribed or required for medical reasons: No Substance Use Type: Marijuana Advance Directives: Yes Advance Directives on File: Yes Advance Directives Date on File: 03/08/23 Do you have a plan to hurt others: No Plan service: No Physical Exam 2 Vital Signs: Vital Signs: Last Vital Signs Temp 99.4 F 12/07/23 14:00 Pulse 79 12/07/23 14:00 Resp 18 12/07/23 14:00 BP 112/52 L 12/07/23 14:00 Pulse Ox 99 12/07/23 14:00 O2 Del Method Nasal Cannula 12/07/23 14:00 O2 Flow Rate 2 12/07/23 14:00 BMI result Body Mass Index 24.0 Appearance: Alert. Oriented to place and self. No acute distress. Eyes: Pupils equal, round and reactive to light. ENT: Pharynx normal. Neck: Normal inspection. Neck supple. CVS: tachycardic heart rate and rhythm. Pulses normal. Respiratory: No respiratory distress. Breath sounds coarse and diminished in both bases Abdomen: Soft and nontender. states he has pain but no pain to palpation Skin: Skin hot to touch and dry. Normal skin color. Extremities: No lower extremity edema. Neuro: Oriented to place and self. No motor deficit. No sensory deficit. Course Course Course Narrative: rash to L arm after levofloxacin stopped tolerated ceftriaxone in 2022 will order it no respiratory issues Medications Administered Generic Name Dose Route Start Last Admin Trade Name Freq PRN Reason Stop Dose Admin Lactated Ringer's 1,000 mls @ 80 mls/hr 12/07/23 14:15 12/07/23 14:16 Lr IVCONT 80 mls/hr .[id number] GAGANDEEP Administration Discontinued Medications Generic Name Dose Route Start Last Admin Trade Name Freq PRN Reason Stop Dose Admin Acetaminophen 650 mg 12/07/23 10:36 12/07/23 10:55 Acetaminophen Supp 650 Mg Supp.Rect SD 12/07/23 10:37 650 mg ONCE ONE Administration Lactated Ringer's 1,000 mls @ 999 mls/hr 12/07/23 10:36 12/07/23 11:24 Lr IV 12/07/23 11:36 Infused .Q1H1M ONE Infusion Levofloxacin 750 mg in 150 mls @ 100 mls/hr 12/07/23 10:38 12/07/23 12:07 Levaquin IV 12/07/23 12:07 Infused ONCE ONE Infusion Magnesium Sulfate 2 gm in 50 mls @ 25 mls/hr 12/07/23 11:32 12/07/23 13:52 Magnesium Sulfate/H2o IV 12/07/23 13:31 Infused ONCE ONE Infusion Ceftriaxone Sodium 1 gm/ 50 mls @ 100 mls/hr 12/07/23 12:07 12/07/23 13:53 Sodium Chloride IV 12/07/23 12:36 Infused ONCE ONE Infusion Azithromycin 500 mg/ Sodium 250 mls @ 125 mls/hr 12/07/23 13:58 12/07/23 14:12 Chloride IV 12/07/23 15:57 125 mls/hr ONCE ONE Administration Iohexol 85 ml 12/07/23 12:14 12/07/23 12:14 Iohexol 350 Mg/Ml 75 Ml Infus..Btl IV 12/07/23 12:15 85 ml ONCE ONE Administration Ondansetron HCl 4 mg 12/07/23 10:48 12/07/23 11:00 Ondansetron Hcl 4 Mg/2 Ml Vial IVPUSH 12/07/23 10:49 4 mg ONCE ONE Administration Medical Decision Making Medical Decision Making MDM Narrative: 68 yo male with PMH of vascular dementia, t2DM, HTN, COPD, HLD, CVA on plavix, CAD, neuropathy, pneumonia in past here with c/o fevers chills increased confusion from baseline nausea cough and he c/o not feeling well with abdominal pain. He has no pain to palpation but will have low threshold to image given his dementia. IVF, cultures, lactic acid, based off his allergies empiric levofloxacin ordered empirically, rectal tylenol ordered, IV zofran, he reports pain will monitor tylenol if no effect low dose IV morphine possibly if he continues to have pain. Differential Diagnosis Differential Diagnoses: The differential diagnosis associated with the presentation includes pneumonia, UTI, intra-abdominal pathology though no ttp, c/o nausea, COVID Admission/Observation Consideration of admission/observation: Escalation of care including admission/observation considered admit for further management, IV antibiotics, 02 needs Consult Healthcare Provider Management of the patient was discussed with: Hospitalist (will admit) and Dump Truck Driver Dr. Kirk aware will follow Lab Data [facility] Lab Attestation statement: I reviewed the patient's lab results. 12/07/23 10:50 12/07/23 10:50 Labs: Lab Results 12/07/23 12/07/23 12/07/23 Range/Units 10:50 10:53 11:25 WBC 7.2 (4.8-10.8) X10*3/uL RBC 4.11 L (4.60-5.80) X10*6/uL Hgb 13.4 L (14.0-18.0) g/dl Hct 38.3 L (42.0-52.0) % MCV 93.2 (80.0-98.0) fL MCH 32.6 (27.0-33.0) pg MCHC 35.0 (31.0-36.0) g/dl RDW 12.4 (11.0-16.0) % Plt Count 193 (160-400) X10*3/uL MPV 8.8 L (9.4-12.4) fL Immature Gran % (Auto) 0.3 (0.0-0.4) % Neut % (Auto) 84.3 H (45-73) % Lymph % (Auto) 7.9 L (20-40) % [place] % (Auto) 7.1 (2-11) % Eos % (Auto) 0.0 (0-4) % Baso % (Auto) 0.4 (0-2) % Lymph # (Auto) 0.6 L (1.2-4.9) X10*3/uL [place] # (Auto) 0.5 (0.1-1.2) X10*3/uL Eos # (Auto) 0.0 (0.0-0.4) X10*3/uL Baso # (Auto) 0.0 (0.0-0.2) X10*3/uL Abs Immat Gran (auto) 0.02 (0.00-0.03) X10*3/uL Absolute Neuts (auto) 6.1 (2.0-8.3) x10*3/uL Absolute Nucleated RBC 0.000 (0.0-0.012) X10*3/uL Nucleated RBC % (auto) 0.0 (0.0-0.2) /100WBC VBG pH 7.57 H (7.32-7.43) VBG pCO2 26 mmHg VBG pO2 185 mmHg VBG HCO3 24 (22-26) mmol/L VBG O2 Saturation 100.0 % VBG Base Excess 3.5 mmol/L Sodium 138 (135-145) mmol/L Potassium 4.2 (3.3-5.1) mmol/L Chloride 103 (96-108) mmol/L Carbon Dioxide 23 (22-29) mmol/L Anion Gap 16 (12-20) BUN 10 (9-16) mg/dL Creatinine 0.62 (0.5-1.4) mg/dL Estim Creat Clear Calc 119.3 Estimated GFR > 60 Random Glucose 178 H (60-115) mg/dL Lactic Acid 2.0 (0.5-2.0) mmol/L Calcium 9.4 (8.4-10.2) mg/dL Magnesium 1.3 L* (1.6-2.6) mg/dL Total Bilirubin 0.8 (0.0-1.0) mg/dL Direct Bilirubin 0.3 (0.0-0.5) mg/dL AST 15 (5-37) U/L ALT 9 (0-40) U/L Alkaline Phosphatase 76 (39-117) U/L Troponin I High Sens 3.1 (<3.5-35.0) ng/L C-Reactive Protein 8.61 H (< or = 0.50) mg/dL B-Natriuretic Peptide 60 (<100) pg/mL Total Protein 7.0 (6.5-8.0) g/dL Albumin 3.8 (3.5-5.0) g/dL Lipase 9 (8-78) U/L Procalcitonin 0.16 ng/mL Urine Color Yellow Urine Appearance Clear Urine pH 6.0 (5.0-9.0) Ur Specific [place] 1.025 (1.005-1.025) Urine Protein 30 (1+) H (Neg-Trace) mg/dL Urine Glucose (UA) Negative (Negative) mg/dL Urine Ketones 15 (Negative) mg/dL Urine Blood Negative (Negative) Urine Nitrite Negative (Negative) Ur Leukocyte Esterase Negative (Negative) Urine RBC 0-2 (0-2) /HPF Urine WBC 0-5 (0-5) /HPF Ur Squamous Epith Cells 0-2 (0-2) /HPF Urine Bacteria None Seen (None Seen) Hyaline Casts 0-2 (0-2) /LPF Influenza Type A (PCR) NEGATIVE (Negative) Influenza Type B (PCR) NEGATIVE (Negative) RSV RNA Qual (PCR) NEGATIVE (Negative) SARS-CoV-2 RNA (RT-PCR) NEGATIVE (Negative) Independent Interpretation I performed an independent interpretation of an: EKG, Plain X-Ray, Ultrasound (poor study) and CT Scan (pneumonia noted, abnormal GB findings) Interpretation: Rate: 123 Rhythm: sinus tachycardia [place]: normal Normal P waves. Normal ROMERO. RBBB ST T wave : inverted t wave V1-V2, no LAYLA qTC: 472 prior studies: prior RBBB The study has been interpreted contemporaneously by me. . Radiology Impression Discussion of test interpretation with radiology: I have reviewed the radiologist's reading. Independent Historian Clinical information obtained from an independent historian. History obtained from or confirmed by: EMS External Record Review External record reviewed: Inpatient record Critical Care Time Critical Care Time Critical Care Time: Yes Total Critical Care Time: 40 Attestation: review of records, consult, hypoxia correction, IV magnesium I attest to this time spent taking care of the patient Discharge Plan Discharge Clinical Impression: Hypomagnesemia Pneumonia Qualifiers: Pneumonia type: due to unspecified organism Laterality: right Lung location: m iddle lobe of lung Qualified Code(s): J18.9 - Pneumonia, unspecified organism Fever Qualifiers: Fever type: unspecified Qualified Code(s): R50.9 - Fever, unspecified Patient Disposition: Admitted As Inpatient Print Language: Telugu
[2023-12-07] MEDS: Acetaminophen Supp 650 MG SUPP.RECT PR (10:55)
[2023-12-07] MEDS: Lactated Ringers 1,000 ML 999 ML IV (10:59)
[2023-12-07] MEDS: levoFLOXacin/D5W 750 MG/150 ML PIGGYBACK 100 MG IV (10:59)
[2023-12-07] MEDS: ondansetron HCL 4 MG/2 ML VIAL IVPUSH (11:00)
[2023-12-07 11:01] LABS: Venous Blood Gas Refer to POC result
[2023-12-07 11:03] LABS: VBG Base Excess 3.5 mmol/L; VBG HCO3 24 mmol/L (22-26); VBG pCO2 26 mmHg; VBG pH 7.57 (7.32-7.43); VBG pO2 185 mmHg
[2023-12-07 11:04] LABS: MANUAL DIFF FLAG NO
[2023-12-07 11:11] LABS: Basophils Percent Auto 0.4 % (0-2); Hematocrit 38.3 % (42.0-52.0); Hemoglobin 13.4 g/dl (14.0-18.0); Imm Gran Abs Auto 0.02 X10*3/uL (0.00-0.03); Imm Gran Pct Auto 0.3 % (0.0-0.4); Lymphocytes Absolute Auto 0.6 X10*3/uL (1.2-4.9); Lymphocytes Percent Auto 7.9 % (20-40); Mean Corpuscular Hemoglobin 32.6 pg (27.0-33.0); Mean Corpuscular Volume 93.2 fL (80.0-98.0); Mean Platelet Volume 8.8 fL (9.4-12.4); Monocytes Absolute Auto 0.5 X10*3/uL (0.1-1.2); Monocytes Percent Auto 7.1 % (2-11); Neutrophils Absolute Auto 6.1 x10*3/uL (2.0-8.3); Neutrophils Percent Auto 84.3 % (45-73); Platelet Count 193 X10*3/uL (160-400); Red Blood Count 4.11 X10*6/uL (4.60-5.80); Red Cell Distribution Width 12.4 % (11.0-16.0); White Blood Count 7.2 X10*3/uL (4.8-10.8)
[2023-12-07 11:27] LABS: Troponin-I High Sensitivity 3.1 ng/L (<3.5-35.0)
[2023-12-07 11:28] LABS: B Type Natriuretic Peptide 60 pg/mL (<100)
[2023-12-07 11:29] LABS: Alanine Aminotransferase 9 U/L (0-40); Albumin Level 3.8 g/dL (3.5-5.0); Alkaline Phosphatase 76 U/L (39-117); Anion Gap 16 (12-20); Aspartate Amino Transferase 15 U/L (5-37); Bilirubin Direct 0.3 mg/dL (0.0-0.5); Bilirubin Total 0.8 mg/dL (0.0-1.0); Blood Urea Nitrogen 10 mg/dL (9-16); C Reactive Protein 8.61 mg/dL (< or = 0.50); Calcium 9.4 mg/dL (8.4-10.2); Carbon Dioxide 23 mmol/L (22-29); Chloride 103 mmol/L (96-108); Creatinine Clr Calc Pharmacy 119.3; Estimated Glomerular Filt Rate > 60; Glucose Random 178 mg/dL (60-115); Lipase 9 U/L (8-78); Magnesium 1.3 mg/dL (1.6-2.6); Potassium 4.2 mmol/L (3.3-5.1); Sodium 138 mmol/L (135-145)
[2023-12-07 11:33] LABS: Appearance Urine Clear; Color Urine Yellow; Glucose Urine UA Negative (Negative); Leukocyte Esterase Urine Negative (Negative); Nitrite Urine Negative (Negative); Specific Gravity - Urine 1.025 (1.005-1.025); UMIC TRIGGER UACC YES; Urine Blood Negative (Negative); Urine Ketones 15 mg/dL (Negative); Urine Protein 30 (1+) mg/dL (Neg-Trace)
[2023-12-07 11:37] LABS: Influenza A PCR NEGATIVE (Negative); Influenza B PCR NEGATIVE (Negative); Resp Syncy Virus RNA Qual PCR NEGATIVE (Negative); SARS COV2 PCR INHOUSE NEGATIVE (Negative)
[2023-12-07] MEDS: Magnesium Sulfate/H2O 2 GM/50 ML PIGGYBACK IV (11:41)
[2023-12-07 11:44] LABS: Bacteria Urine None Seen (None Seen); Hyaline Casts Urine 0-2 /LPF (0-2); RBC Urine 0-2 /HPF (0-2); Squamous Epithelial Cell Urine 0-2 /HPF (0-2); WBC Urine 0-5 /HPF (0-5)
[2023-12-07 11:50] LABS: Procalcitonin 0.16 ng/mL
--- NOTE | 2023-12-07 12:07 | PC.NURSE ---
pts L arm where Levaquin is infusing is red, concern for allergic reaction. MD Cavazos made aware. plan to stop levaquin at this time to change to alt abx
[2023-12-07] MEDS: iohexoL 350 MG/ML 75 ML INFUS..BTL 85 ML IV (12:14)
[2023-12-07] MEDS: cefTRIAXone sodium 1 GM in 0.9 % Sodium Chloride 50 ML IV (12:49)
[2023-12-07] MEDS: Azithromycin 500 MG in 0.9 % Sodium Chloride 250 ML 125 MG IV (14:12)
[2023-12-07] MEDS: Lactated Ringers 1,000 ML 80 ML IVCONT (14:16)
--- NOTE | 2023-12-07 16:15 | P.HPHOSP_ITS ---
History of Present Illness Date of Service: 12/07/23 Chief Complaint: fever, cough 68-year-old man presenting from long-term care facility with fever, chills, cough, nausea and hypoxia. Apparently his oxygen saturation was 88% on room air upon arrival to the emergency department. Patient reported feeling unwell, denied any chest pain. In the ER, patient was noted to have magnesium of 1.3, no leukocytosis, T-max of a 102.3 degrees. The patient was given Levaquin, IV fluid, Zofran, IV magnesium, ceftriaxone and azithromycin. Chest x-ray showed mild perihilar interstitial infiltrates with abdominal CT showing airspace opacity in the posterior right lower lobe consistent with pneumonia. Abdominal ultrasound showed some circumferential wall thickening of the gallbladder suggesting edema/maximiliano cholecystic fluid, cholecystitis can not be ruled out. Patient will be admitted for further management and treatment of sepsis secondary to community-acquired pneumonia. Review of Systems 2 Review of Systems: Denies any recent fever chills or decrease in appetite respiratory cardiovascular gastrointestinal denies any dysphagia abdominal pain nausea vomiting or diarrhea genitourinary denies any dysuria frequency or hematuria musculoskeletal denies any joint pain or swelling neuropsych denies any weakness or seizures all other systems reviewed are negative [facility] Medical History CLEOPATRA on CPAP Seizure disorder Vascular dementia CVA (cerebral vascular accident) COPD (chronic obstructive pulmonary disease) Hypertension Type 2 diabetes mellitus Social History Household Members: None Housing: Group Home Do you presently have visiting nurse or other home services: No Patient Tobacco Use Status: Never used Tobacco Tobacco use type: Cigarette Cigarettes Per Day: 8 Smoked in Last 30 Days: No Use of substances other than those prescribed or required for medical reasons: No Substance Use Type: Marijuana Currently Displaying Signs/Symptoms of Drug Intoxication Withdrawal: No Have you been hit, kicked, punched, or otherwise hurt by someone within the past year? If so, by whom?: No Do you feel safe in your current relationship?: Yes Is there a partner from a previous relationship who is making you feel unsafe now?: No Are you made to feel afraid or neglected: No Advance Directives: Yes Advance Directives on File: Yes Advance Directives Date on File: 03/08/23 Do you have a plan to hurt others: No Plan Recently lost weight without trying: No Nutrition Risks: No Nutritional Risk service: No Meds Allergies Allergy/AdvReac Type Severity Reaction Status Date / Time gabapentin [GABAPENTIN] Allergy Unknown N/V Verified 12/07/23 10:47 Penicillins [PENICILLINS] Allergy Unknown RASH Verified 12/07/23 10:47 pregabalin [From LYRICA] Allergy Unknown N/V Verified 12/07/23 10:47 cephalosporin Allergy Unknown Itching Uncoded 12/07/23 10:47 Penicillin Allergy Unknown Swelling Uncoded 12/07/23 10:47 Active Medications: Current Medications Lactated Ringer's (Lr) 1,000 mls @ 80 mls/hr IVCONT .[id number] GAGANDEEP Last Admin: 12/07/23 14:16 Dose: 80 mls/hr Home Medications ?Medication ?Instructions ?Recorded ?Confirmed ?Last Taken ?Type ascorbic acid (vitamin C) 500 mg 500 mg PO DAILY 01/26/23 12/07/23 Unknown History tablet (Vitamin C) atorvastatin 40 mg tablet 40 mg PO BEDTIME 01/26/23 12/07/23 Unknown History cholecalciferol (vitamin D3) 1,250 50,000 unit PO FR@0900 01/26/23 12/07/23 Unknown History mcg (50,000 unit) capsule clopidogrel 75 mg tablet 75 mg PO DAILY 01/26/23 12/07/23 Unknown History magnesium oxide 400 mg (241.3 mg 400 mg PO DAILY 01/26/23 12/07/23 Unknown History magnesium) tablet metformin 1,000 mg tablet 1,000 mg PO BIDWM 01/26/23 12/07/23 Unknown History thiamine HCl (vitamin B1) 100 mg 100 mg PO DAILY 01/26/23 12/07/23 Unknown History tablet (Vitamin B-1) acetaminophen 500 mg tablet 1,000 mg PO TID 12/07/23 12/07/23 Unknown History acetaminophen 650 mg rectal 650 mg DC Q4H PRN pain or fever 12/07/23 12/07/23 Unknown History suppository bisacodyl 10 mg rectal suppository 10 mg DC DAILY PRN Constipation 12/07/23 12/07/23 Unknown History budesonide 90 mcg/actuation breath 2 inh inhalation DAILY PRN 12/07/23 12/07/23 Unknown History activated powder inhaler Shortness Of Breath (Pulmicort Flexhaler) diclofenac sodium 1 % topical gel 4 g topical TID 12/07/23 12/07/23 Unknown History guaifenesin 100 mg/5 mL oral liquid 200 mg PO Q4H PRN Cough 12/07/23 12/07/23 Unknown History insulin aspart U-100 100 unit/mL See Protocol subcut TIDAC 12/07/23 12/07/23 Unknown History subcutaneous solution (Novolog U-100 Insulin aspart) lidocaine 4 % topical patch 1 patch topical Q24H PRN Pain 12/07/23 12/07/23 Unknown History loratadine 10 mg tablet 10 mg PO DAILY 12/07/23 12/07/23 Unknown History magnesium hydroxide 400 mg/5 mL 30 ml PO DAILY PRN Constipation 12/07/23 12/07/23 Unknown History oral suspension (Milk of Magnesia) omeprazole 20 mg tablet,delayed 20 mg PO DAILY@0630 12/07/23 12/07/23 Unknown History release ondansetron HCl 4 mg tablet 4 mg PO Q6H PRN Nausea And Vomiting 12/07/23 12/07/23 Unknown History quetiapine 25 mg tablet 25 mg PO BID 12/07/23 12/07/23 Unknown History sodium phosphates 19 gram-7 118 ml DC DAILY PRN Constipation 12/07/23 12/07/23 Unknown History gram/118 mL enema (Fleet Enema) trazodone 50 mg tablet 25 mg PO BID 12/07/23 12/07/23 Unknown History Physical Exam 2 Vital Signs and Narrative: Vital Signs: Last Vital Signs Temp 100.5 F H 12/07/23 16:00 Pulse 94 12/07/23 16:00 Resp 15 12/07/23 16:00 BP 122/41 L 12/07/23 16:00 Pulse Ox 96 12/07/23 16:00 O2 Del Method Nasal Cannula 12/07/23 16:00 O2 Flow Rate 2 12/07/23 16:00 BMI result Body Mass Index 24.0 Appearing in no acute distress head is normocephalic atraumatic eyes pupils are PERRLA sclera is anicteric mouth throat mucous membranes are intact and moist neck is supple no lymphadenopathy, no JVD noted lung sounds are clear to auscultation heart regular rate rhythm, clear S1, S2 positive bowel sounds, abdomen is soft, nontender neuro patient is alert x3, no focal deficits Results Labs 12/08/23 06:26 12/08/23 06:26 Labs: Laboratory Results - last 24 hr 12/07/23 12/07/23 12/07/23 10:50 10:53 11:25 MCV 93.2 MCH 32.6 MCHC 35.0 RDW 12.4 Plt Count 193 MPV 8.8 L Immature Gran % (Auto) 0.3 Neut % (Auto) 84.3 H Lymph % (Auto) 7.9 L [place] % (Auto) 7.1 Eos % (Auto) 0.0 Baso % (Auto) 0.4 Lymph # (Auto) 0.6 L [place] # (Auto) 0.5 Eos # (Auto) 0.0 Baso # (Auto) 0.0 Abs Immat Gran (auto) 0.02 Absolute Neuts (auto) 6.1 Absolute Nucleated RBC 0.000 Nucleated RBC % (auto) 0.0 VBG pH 7.57 H VBG pCO2 26 VBG pO2 185 VBG HCO3 24 VBG O2 Saturation 100.0 VBG Base Excess 3.5 Anion Gap 16 Estim Creat Clear Calc 119.3 Estimated GFR > 60 Random Glucose 178 H Lactic Acid 2.0 Calcium 9.4 Magnesium 1.3 L* Total Bilirubin 0.8 Direct Bilirubin 0.3 AST 15 ALT 9 Alkaline Phosphatase 76 Troponin I High Sens 3.1 C-Reactive Protein 8.61 H B-Natriuretic Peptide 60 Total Protein 7.0 Albumin 3.8 Lipase 9 Procalcitonin 0.16 Urine Color Yellow Urine Appearance Clear Urine pH 6.0 Ur Specific [place] 1.025 Urine Protein 30 (1+) H Urine Glucose (UA) Negative Urine Ketones 15 Urine Blood Negative Urine Nitrite Negative Ur Leukocyte Esterase Negative Urine RBC 0-2 Urine WBC 0-5 Ur Squamous Epith Cells 0-2 Urine Bacteria None Seen Hyaline Casts 0-2 Influenza Type A (PCR) NEGATIVE Influenza Type B (PCR) NEGATIVE RSV RNA Qual (PCR) NEGATIVE SARS-CoV-2 RNA (RT-PCR) NEGATIVE Imaging Radiologist's Impressions: Impressions Chest X-Ray 12/07/23 11:12 IMPRESSION: 1. Mild right parahilar interstitial infiltrates. 2. No dense lobar consolidation or pleural effusion. Abdomen/Pelvis CT 12/07/23 12:16 IMPRESSION: * The bronchial carreno in the visualized lower lobes are thickened and the airspace opacity in the posterior right lower lobe is consistent with pneumonia. No pleural effusion. * There appears to be edema of the gallbladder wall at its interface with the liver. No gallstones. No overt cholecystitis. Consider correlation with liver function tests. * The coarse calcifications within the pancreatic head are compatible with sequela of chronic pancreatitis. There are no acute pancreatic inflammatory changes. * Punctate renal calculi. Abdomen Ultrasound 12/07/23 14:31 IMPRESSION: 1. Exam limited by patient's body habitus, bowel gas, patient unable to hold breath.. 2. There is circumferential wall thickening of the gallbladder up to 1.1 cm, low-attenuation of its wall suggesting edema/pericholecystic fluid. Although no gallstone visualized however visualization of the gallbladder is limited, gallbladder neck could not be visualized or assess for possible stones. In the right clinical setting CANNOT RULE OUT CHOLECYSTITIS, please correlate with the clinical exam, consider surgical evaluation, May utilize follow-up HIDA scan. Assessment and Plan (1) Abdominal pain: Status: Acute Plan 68 year old man admitted with sepsis secondary to community-acquired pneumonia Sepsis, not severe, secondary to CAP fever, tachycardia, tachypnea, normal lactic acid IV rocephin, azithromycin Continue supplemental oxygen to keep o2 sat >90% follow cx Gallbladder wall thickening Noted on abdominal ultrasound Already on antibiotics for community-acquired pneumonia General surgery consultation Hypomagnesemia Replete HTN Stable BP continue lisinopril DM2 ss, ada diet Mental health continue medications HLD continue statin DVT prophylaxis with heparin Full code Quality Stroke Does the patient have a stroke diagnosis?: No VTE Prior VTE?: No VTE Risk Level:: Medical - moderate - high VTE Device Contraindication: Treatment Not Indicated VTE Drug Contraindication: N/A - Med Ordered
[2023-12-07] MEDS: metroNIDAZOLE/NS 500 MG/100 ML PIGGYBACK 100 MG IV (16:41)
--- NOTE | 2023-12-07 17:12 | PHA.MEDREC ---
Addendum entered by Víctor Meza RPh 12/07/23 17:34: Reviewed by [facility] Original Note: Pharmacy Consult ? Medication Reconciliation Pharmacy has completed the medication reconciliation. Used list from [facility] in [place]. Nurses at [facility] confirmed lidocaine 4% patches and Pulmicort 90 mcg inhaler.
--- NOTE | 2023-12-07 17:38 | PC.NURSE ---
pt mechanical soft diet with thin liquids,, 1:1 obs during feed due to aspiration precautions, meds crushed in pudding
[2023-12-07] MEDS: Acetaminophen 325 MG TABLET 650 MG PO (17:49)
--- NOTE | 2023-12-07 19:11 | PC.NURSE ---
this rn assumed care of pt, pt a&ox4, respirations even and unlabored. pt resting in stretcher no acute distress noted. this RN noted pt to be hypotensive 92/54. Constance HINES aware, reports she will change bed assignment to medtele rather than medsurg.
[2023-12-07] MEDS: 0.9 % Sodium Chloride 1,000 ML 999 ML IV (19:55)
--- NOTE | 2023-12-07 19:57 | PC.NURSE ---
pt noted to have urine incontinence, pt assisted in bed change at at this time, [place] cath replaced. rectal tmp obtained and fluid bolus administered.
[2023-12-07 21:21] LABS: Glucose, Whole Blood 79 mg/dL (60-115)
[2023-12-07] MEDS: QUEtiapine Fumarate 25 MG TABLET PO (22:32)
[2023-12-07] MEDS: traZODone HCL 25 MG HALFTAB PO (22:32)
[2023-12-07] MEDS: Atorvastatin Calcium 40 MG TABLET PO (22:32)
--- NOTE | 2023-12-07 23:49 | PM.CNGS ---
History of Present Illness Consult details Consult date: 12/07/23 Requesting physician: Lorraine Mccracken Narrative: 68-year-old man presenting from long-term care facility with fever, chills, cough, nausea and hypoxia. Apparently his oxygen saturation was 88% on room air upon arrival to the emergency department. Patient reported feeling unwell, denied any chest pain. In the ER, patient was noted to have magnesium of 1.3, no leukocytosis, T-max of a 102.3 degrees. The patient was given Levaquin, IV fluid, Zofran, IV magnesium, ceftriaxone and azithromycin. Chest x-ray showed mild perihilar interstitial infiltrates with abdominal CT showing airspace opacity in the posterior right lower lobe consistent with pneumonia. Abdominal ultrasound showed some circumferential wall thickening of the gallbladder suggesting edema/maximiliano cholecystic fluid, cholecystitis can not be ruled out. Patient will be admitted for further management and treatment of sepsis secondary to community-acquired pneumonia. pt has findings on imaging of thickened gallbladder and some fluid surrounding but normal lfts. In ER pt not compalining of pain and not tender in abdomen PMFSH Past Medical History Medical History CLEOPATRA on CPAP Seizure disorder Vascular dementia CVA (cerebral vascular accident) COPD (chronic obstructive pulmonary disease) Hypertension Type 2 diabetes mellitus Social History Social History Household Members: None Housing: Detention Do you presently have visiting nurse or other home services: No Patient Tobacco Use Status: Never used Tobacco Tobacco use type: Cigarette Cigarettes Per Day: 8 Smoked in Last 30 Days: No Use of substances other than those prescribed or required for medical reasons: No Substance Use Type: Marijuana Have you been hit, kicked, punched, or otherwise hurt by someone within the past year? If so, by whom?: No Do you feel safe in your current relationship?: Yes Is there a partner from a previous relationship who is making you feel unsafe now?: No Are you made to feel afraid or neglected: No Advance Directives: Yes Advance Directives on File: Yes Advance Directives Date on File: 03/08/23 Do you have a plan to hurt others: No Plan Recently lost weight without trying: No Nutrition Risks: No Nutritional Risk service: No Meds Allergies Allergy/AdvReac Type Severity Reaction Status Date / Time gabapentin [GABAPENTIN] Allergy Unknown N/V Verified 12/07/23 10:47 Penicillins [PENICILLINS] Allergy Unknown RASH Verified 12/07/23 10:47 pregabalin [From LYRICA] Allergy Unknown N/V Verified 12/07/23 10:47 cephalosporin Allergy Unknown Itching Uncoded 12/07/23 10:47 Penicillin Allergy Unknown Swelling Uncoded 12/07/23 10:47 Active Medications: Current Medications Acetaminophen (Acetaminophen 325 Mg Tablet) 650 mg PO Q6H PRN PRN Reason: Pain, Mild (Pain Scale 1-3), fever or headache Last Admin: 12/07/23 17:49 Dose: 650 mg Acetaminophen (Acetaminophen Supp 650 Mg Supp.Rect) 650 mg FL Q4H PRN PRN Reason: pain or fever Ascorbic Acid (Ascorbic Acid 500 Mg Tablet) 500 mg PO DAILY [facility] Atorvastatin Calcium (Atorvastatin Calcium 40 Mg Tablet) 40 mg PO BEDTIME [facility] Last Admin: 12/07/23 22:32 Dose: 40 mg Bisacodyl (Bisacodyl 10 Mg Supp.Rect) 10 mg FL DAILY PRN PRN Reason: Constipation Calcium Carbonate (Calcium Carbonate 750 Mg Tab.Chew) 750 mg PO Q4H PRN PRN Reason: Heartburn Clopidogrel Bisulfate (Clopidogrel Bisulfate 75 Mg Tablet) 75 mg PO DAILY [facility] Glucose (Glucose Gel 15 Gm Gel..Gram.) 15 gm PO Q15M PRN; Protocol PRN Reason: per Hypoglycemia Standing Ord. Guaifenesin (Guaifenesin 100 Mg/5 Ml Liquid) 10 ml PO Q4H PRN PRN Reason: Cough Lactated Ringer's (Lr) 1,000 mls @ 80 mls/hr IVCONT .[id number] [facility] Last Admin: 12/07/23 14:16 Dose: 80 mls/hr Ceftriaxone Sodium 1 gm/ (Sodium Chloride) 50 mls @ 100 mls/hr IV Q24H [facility] Azithromycin 500 mg/ Sodium (Chloride) 250 mls @ 125 mls/hr IV Q24H [facility] Dextrose (D10) 250 mls @ 750 mls/hr IV Q15M PRN; Protocol PRN Reason: per Hypoglycemia Standing Ord. Insulin Human Lispro (Insulin Lispro 100 Unit/Ml 3 Ml Vial) 0 unit SUBCUT QIDACHS [facility]; Protocol Last Admin: 12/07/23 22:12 Dose: Not Given Loratadine (Loratadine 10 Mg Tablet) 10 mg PO DAILY [facility] Magnesium Hydroxide (Milk Of Magnesia 30 Ml Oral.Susp) 30 ml PO DAILY PRN PRN Reason: Constipation Magnesium Hydroxide (Milk Of Magnesia 30 Ml Oral.Susp) 30 ml PO DAILY PRN PRN Reason: Constipation Magnesium Oxide (Magnesium Oxide 400 Mg Tablet) 400 mg PO DAILY [facility] Melatonin (Melatonin 3 Mg Tablet) 6 mg PO BEDTIME PRN PRN Reason: Insomnia Non-Formulary Medication (Cholecalciferol (Vitamin D3)) 50,000 unit PO FR@0900 [facility] Non-Formulary Medication (Diclofenac Sodium) 4 gm TOPICAL TID [facility] Ondansetron HCl (Ondansetron Hcl 4 Mg/2 Ml Vial) 4 mg IVPUSH Q8H PRN PRN Reason: Nausea and Vomiting Pantoprazole Sodium (Pantoprazole Sodium 20 Mg Tablet.Dr) 20 mg PO DAILY@0630 [facility] Quetiapine Fumarate (Quetiapine Fumarate 25 Mg Tablet) 25 mg PO BID [facility] Last Admin: 12/07/23 22:32 Dose: 25 mg Sodium Chloride (0.9 % Sodium Chloride Flush 3 Ml Syringe) 3 ml IVFLUSH QSHIFT [facility] Thiamine HCl (Thiamine Hcl 100 Mg Tablet) 100 mg PO DAILY [facility] Trazodone HCl (Trazodone Hcl 25 Mg Halftab) 25 mg PO BID [facility] Last Admin: 12/07/23 22:32 Dose: 25 mg Home Medications ?Medication ?Instructions ?Recorded ?Confirmed ?Last Taken ?Type ascorbic acid (vitamin C) 500 mg 500 mg PO DAILY 01/26/23 12/07/23 Unknown History tablet (Vitamin C) atorvastatin 40 mg tablet 40 mg PO BEDTIME 01/26/23 12/07/23 Unknown History cholecalciferol (vitamin D3) 1,250 50,000 unit PO FR@0900 01/26/23 12/07/23 Unknown History mcg (50,000 unit) capsule clopidogrel 75 mg tablet 75 mg PO DAILY 01/26/23 12/07/23 Unknown History magnesium oxide 400 mg (241.3 mg 400 mg PO DAILY 01/26/23 12/07/23 Unknown History magnesium) tablet metformin 1,000 mg tablet 1,000 mg PO BIDWM 01/26/23 12/07/23 Unknown History thiamine HCl (vitamin B1) 100 mg 100 mg PO DAILY 01/26/23 12/07/23 Unknown History tablet (Vitamin B-1) acetaminophen 500 mg tablet 1,000 mg PO TID 12/07/23 12/07/23 Unknown History acetaminophen 650 mg rectal 650 mg FL Q4H PRN pain or fever 12/07/23 12/07/23 Unknown History suppository bisacodyl 10 mg rectal suppository 10 mg FL DAILY PRN Constipation 12/07/23 12/07/23 Unknown History budesonide 90 mcg/actuation breath 2 inh inhalation DAILY PRN 12/07/23 12/07/23 Unknown History activated powder inhaler Shortness Of Breath (Pulmicort Flexhaler) diclofenac sodium 1 % topical gel 4 g topical TID 12/07/23 12/07/23 Unknown History guaifenesin 100 mg/5 mL oral liquid 200 mg PO Q4H PRN Cough 12/07/23 12/07/23 Unknown History insulin aspart U-100 100 unit/mL See Protocol subcut TIDAC 12/07/23 12/07/23 Unknown History subcutaneous solution (Novolog U-100 Insulin aspart) lidocaine 4 % topical patch 1 patch topical Q24H PRN Pain 12/07/23 12/07/23 Unknown History loratadine 10 mg tablet 10 mg PO DAILY 12/07/23 12/07/23 Unknown History magnesium hydroxide 400 mg/5 mL 30 ml PO DAILY PRN Constipation 12/07/23 12/07/23 Unknown History oral suspension (Milk of Magnesia) omeprazole 20 mg tablet,delayed 20 mg PO DAILY@0630 12/07/23 12/07/23 Unknown History release ondansetron HCl 4 mg tablet 4 mg PO Q6H PRN Nausea And Vomiting 12/07/23 12/07/23 Unknown History quetiapine 25 mg tablet 25 mg PO BID 12/07/23 12/07/23 Unknown History sodium phosphates 19 gram-7 118 ml FL DAILY PRN Constipation 12/07/23 12/07/23 Unknown History gram/118 mL enema (Fleet Enema) trazodone 50 mg tablet 25 mg PO BID 12/07/23 12/07/23 Unknown History Physical Exam Vital Signs: Vital Signs: Last Vital Signs Temp 98.2 F 12/07/23 23:12 Pulse 74 12/07/23 23:12 Resp 20 12/07/23 23:12 BP 107/59 L 12/07/23 23:12 Pulse Ox 98 12/07/23 23:12 O2 Del Method Nasal Cannula 12/07/23 23:12 O2 Flow Rate 2 12/07/23 23:12 BMI result Body Mass Index 24.0 Const: General: cooperative GI: Other: soft nontender nondistended Results Labs 12/07/23 10:50 12/07/23 10:50 Labs: Abnormal lab results 12/07/23 12/07/23 12/07/23 Range/Units 10:50 10:53 11:25 RBC 4.11 L (4.60-5.80) X10*6/uL Hgb 13.4 L (14.0-18.0) g/dl Hct 38.3 L (42.0-52.0) % MPV 8.8 L (9.4-12.4) fL Neut % (Auto) 84.3 H (45-73) % Lymph % (Auto) 7.9 L (20-40) % Lymph # (Auto) 0.6 L (1.2-4.9) X10*3/uL VBG pH 7.57 H (7.32-7.43) Random Glucose 178 H (60-115) mg/dL Magnesium 1.3 L* (1.6-2.6) mg/dL C-Reactive Protein 8.61 H (< or = 0.50) mg/dL Urine Protein 30 (1+) H (Neg-Trace) mg/dL Short CBC 12/07/23 Range/Units 10:50 WBC 7.2 (4.8-10.8) X10*3/uL Hgb 13.4 L (14.0-18.0) g/dl Hct 38.3 L (42.0-52.0) % Plt Count 193 (160-400) X10*3/uL BMP 12/07/23 10:50 Sodium 138 Potassium 4.2 Chloride 103 Carbon Dioxide 23 BUN 10 Creatinine 0.62 Calcium 9.4 Liver Function 12/07/23 Range/Units 10:50 Total Bilirubin 0.8 (0.0-1.0) mg/dL Direct Bilirubin 0.3 (0.0-0.5) mg/dL AST 15 (5-37) U/L ALT 9 (0-40) U/L Alkaline Phosphatase 76 (39-117) U/L Albumin 3.8 (3.5-5.0) g/dL Urine 12/07/23 Range/Units 11:25 Urine Color Yellow Urine Appearance Clear Urine pH 6.0 (5.0-9.0) Ur Specific [place] 1.025 (1.005-1.025) Urine Protein 30 (1+) H (Neg-Trace) mg/dL Urine Glucose (UA) Negative (Negative) mg/dL All other labs normal. Imaging Abdomen CT scan report/results: report reviewed and image reviewed CT scan - pelvis: report reviewed and image reviewed Additional studies: Chart - [employer] ? Diagnostics Subcategory All Activity ??:?? All Time ??:?? All Subcategories Filter Laboratory Imaging Microbiology Pathology Blood Bank Tests Cardiovascular Other Specialty DATE TYPE STATUS REF RANGE/AUTHOR Hx 12/07/23 14:31 Abdomen Ultrasound Signed Christina Nugent 12/07/23 12:16 Abdomen/Pelvis CT Signed Matthew Eugene 12/07/23 11:12 Chest X-Ray Signed Christina Nugent 03/22/23 15:[address] Signed Neeraj Walker 03/22/23 15:[address] Signed Neeraj Walker 03/22/23 14:56 Chest X-Ray Signed Jean Paul Vigil 01/26/23 14:54 Chest X-Ray Signed Chris Boudreaux 12/07/21 14:58 Hip/Pelvis X-Ray Signed Jomar Santos Ronald L Acute 68, M?1955 MRN#? [id number] ADM IN,?[place].[facility] [place]??486?-1? 5ft 10in 167lb 1.766oz BSA: 1.93m? BMI: 24.0kg/m? Acc#? [id number] Full Code Historical Visits Allergies gabapentin (GABAPENTIN) N/V Penicillins (PENICILLINS) RASH pregabalin (From LYRICA) N/V [cephalosporin] Itching [Penicillin] Swelling Problems ? ONSET Hypomagnesemia Fever Pneumonia Vital Signs 12/07/23 23:12 BP 107/59?L Pulse 74? Resp 20? Temp 98.2 F? O2 Sat 98? Delivery Nasal Cannula? Flow Rate 2 L/min? Home Meds Confirmed Prescription Monitoring Program MEDICATIONS (INSTRUCTIONS) LAST TAKEN Active acetaminophen 650 [id number] or fever Unknown acetaminophen 1,000 mgPOTID Unknown ascorbic acid (vitamin C) [Vitamin C] 500 mgPODAILY Unknown atorvastatin 40 mgPOBEDTIME Unknown bisacodyl 10 mgPRDAILYPRNConstipation Unknown budesonide [Pulmicort Flexhaler] 2 inhinhalationDAILYPRNShortness Of Breath Unknown cholecalciferol (vitamin D3) 50,000 unitPOFR@0900 Unknown clopidogrel 75 mgPODAILY Unknown diclofenac sodium 4 gtopicalTID Unknown guaifenesin 200 [id number] Unknown insulin aspart U-100 [Novolog U-100 Insulin aspart] See ProtocolsubcutTIDAC Unknown lidocaine 1 [id number] Unknown loratadine 10 mgPODAILY Unknown magnesium hydroxide [Milk of Magnesia] 30 mlPODAILYPRNConstipation Unknown magnesium oxide 400 mgPODAILY Unknown metformin 1,000 mgPOBIDWM Unknown omeprazole 20 mgPODAILY@0630 Unknown ondansetron HCl 4 [id number] And Vomiting Unknown quetiapine 25 mgPOBID Unknown sodium phosphates [Fleet Enema] 118 mlPRDAILYPRNConstipation Unknown tamsulosin [Flomax] 0.4 mgPOBEDTIME#30 caps Unknown thiamine HCl (vitamin B1) [Vitamin B-1] 100 mgPODAILY Unknown trazodone 25 mgPOBID Unknown My Widget No Data to Display Diagnostics Reports Tristen Sandhu??68??M??1955 ? Allergy/Adv: gabapentin, Penicillins, pregabalin, [cephalosporin], [Penicillin] (More??) Close Abdomen Ultrasound (Signed) Christina Nugent - 12/07/23 Abdomen/Pelvis CT (Signed) Matthew Eugene - 12/07/23 Chest X-Ray (Signed) Christina Nugent - 12/07/[address] (Signed) Denise,Neeraj - 03/22/[address] (Signed) Denise,Neeraj - 03/22/23 Chest X-Ray (Signed) Jean Paul Vigil - 03/22/23 Chest X-Ray (Signed) Chris Boudreaux - 01/26/23 Hip and Pelvis X-Ray (Signed) Jomar Santos - 12/07/21 Launch?Image [address] [address] [address] Scan Report Signed Patient: Tristen Sandhu MR#: [id number] : 1955 Acct:[id number] Age/Sex: 68 / M ADM Date: 12/07/23 Loc: HO.ED Attending Dr: Ordering Physician: Ashlie Cavazos DO Date of Service: 12/07/23 Procedure(s): CT abdomen pelvis w IV con Accession Number(s): [id number] cc: Ashlie Cavazos DO; Physician,Unknown ~ EXAMINATION: CT ABDOMEN AND PELVIS WITH CONTRAST CLINICAL INFORMATION: Abdominal pain, fevers, nausea dimension. COMPARISON: None available. TECHNIQUE: Multidetector volumetric images were obtained from the superior aspect of the liver through the pubic symphysis following administration 85 mL of Omnipaque 350 intravenous contrast. Sagittal and coronal reformatted images were obtained on the technologist's workstation. Oral contrast: No This CT examination was performed using dose optimization techniques as appropriate, variously including the following: *Automated exposure control *Adjustment of mA and/or kV according to patient size (this includes techniques or standardized protocols for targeted exams where dose is matched to indication/reason for exam; i.e. extremities or head) *Use of iterative reconstruction technique DLP: 700 mGy-cm FINDINGS: LUNG BASES: The bronchial carreno are thickened in the visualized lower lobes and there are endobronchial secretions. Patchy airspace opacity in the posterior right lower lobe. No pleural effusion. HEPATOBILIARY: Liver has normal size, shape, and attenuation. Gallbladder is physiologically distended. There appears to be gallbladder wall edema at its interface with the liver. No evidence of gallstones. There is no edema/stranding of the pericholecystic fat. No dilated bile ducts. PANCREAS: Moderately atrophied pancreas. Coarse calcifications within the pancreatic head compatible with sequela of chronic pancreatitis. No acute inflammatory changes. SPLEEN: Normal. ADRENAL GLANDS: Normal. KIDNEYS AND URETERS: Kidneys are normal in size and enhance symmetrically. No hydronephrosis or perinephric edema. Punctate calyceal stone of the lateral upper pole of the right kidney (image [id number], series 4). Probable punctate stone in the lateral aspect of the interpolar region of the left kidney. Simple cysts of each kidney. No renal imaging follow-up is recommended for simple cysts. The ureters are unremarkable. BLADDER: Normal. BOWEL AND PERITONEUM: No dilated bowel loops. There are diverticula of the colon without evidence of diverticulitis. No evidence of an inflammatory process along the gastrointestinal tract. No abdominal free fluid or free air. ABDOMINAL WALL: Unremarkable. VASCULATURE: Atherosclerosis of the abdominal aorta and iliac arteries without aneurysm. LYMPH NODES: No pathologic sized lymph nodes in the abdomen or pelvis. No inguinal lymphadenopathy. PELVIC VISCERA: Unremarkable. MUSCULOSKELETAL: Prior subcapital neck fracture of the left femur, status post screw fixation. No acute osseous injury. Multilevel osteophyte formation of the spine. 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 CT/CT abdomen pelvis w IV con IMPRESSION: * The bronchial carreno in the visualized lower lobes are thickened and the airspace opacity in the posterior right lower lobe is consistent with pneumonia. No pleural effusion. * There appears to be edema of the gallbladder wall at its interface with the liver. No gallstones. No overt cholecystitis. Consider correlation with liver function tests. * The coarse calcifications within the pancreatic head are compatible with sequela of chronic pancreatitis. There are no acute pancreatic inflammatory changes. * Punctate renal calculi. Dictated By: Matthew Eugene MD Signed By: <Electronically signed by Matthew Eugene MD in OV> 12/07/23 1357 DD/ 1216 TD/TT: Dry Man: Tappx ? Diagnostics Subcategory All Activity ??:?? All Time ??:?? All Subcategories Filter Laboratory Imaging Microbiology Pathology Blood Bank Tests Cardiovascular Other Specialty DATE TYPE STATUS REF RANGE/AUTHOR Hx 12/07/23 14:31 Abdomen Ultrasound Signed Christina Nugent 12/07/23 12:16 Abdomen/Pelvis CT Signed Matthew Eugene 12/07/23 11:12 Chest X-Ray Signed Christina Nugent 03/22/23 15:[address] Signed Neeraj Walker 03/22/23 15:[address] Signed Neeraj Walker 03/22/23 14:56 Chest X-Ray Signed Jean Paul Vigil 01/26/23 14:54 Chest X-Ray Signed Chris Boudreaux 12/07/21 14:58 Hip/Pelvis X-Ray Signed Jomar Santos Ronald L Acute 68, M?1955 MRN#? [id number] ADM IN,?HO.[facility]??486?-1? 5ft 10in 167lb 1.766oz BSA: 1.93m? BMI: 24.0kg/m? Acc#? [id number] Full Code Historical Visits Allergies gabapentin (GABAPENTIN) N/V Penicillins (PENICILLINS) RASH pregabalin (From LYRICA) N/V [cephalosporin] Itching [Penicillin] Swelling Problems ? ONSET Hypomagnesemia Fever Pneumonia Vital Signs 12/07/23 23:12 BP 107/59?L Pulse 74? Resp 20? Temp 98.2 F? O2 Sat 98? Delivery Nasal Cannula? Flow Rate 2 L/min? Home Meds Confirmed Prescription Monitoring Program MEDICATIONS (INSTRUCTIONS) LAST TAKEN Active acetaminophen 650 [id number] or fever Unknown acetaminophen 1,000 mgPOTID Unknown ascorbic acid (vitamin C) [Vitamin C] 500 mgPODAILY Unknown atorvastatin 40 mgPOBEDTIME Unknown bisacodyl 10 mgPRDAILYPRNConstipation Unknown budesonide [Pulmicort Flexhaler] 2 inhinhalationDAILYPRNShortness Of Breath Unknown cholecalciferol (vitamin D3) 50,000 unitPOFR@0900 Unknown clopidogrel 75 mgPODAILY Unknown diclofenac sodium 4 gtopicalTID Unknown guaifenesin 200 [id number] Unknown insulin aspart U-100 [Novolog U-100 Insulin aspart] See ProtocolsubcutTIDAC Unknown lidocaine 1 [id number] Unknown loratadine 10 mgPODAILY Unknown magnesium hydroxide [Milk of Magnesia] 30 mlPODAILYPRNConstipation Unknown magnesium oxide 400 mgPODAILY Unknown metformin 1,000 mgPOBIDWM Unknown omeprazole 20 mgPODAILY@0630 Unknown ondansetron HCl 4 [id number] And Vomiting Unknown quetiapine 25 mgPOBID Unknown sodium phosphates [Fleet Enema] 118 mlPRDAILYPRNConstipation Unknown tamsulosin [Flomax] 0.4 mgPOBEDTIME#30 caps Unknown thiamine HCl (vitamin B1) [Vitamin B-1] 100 mgPODAILY Unknown trazodone 25 mgPOBID Unknown My Widget No Data to Display Diagnostics Reports Tristen Sandhu??68??M??1955 ? Allergy/Adv: gabapentin, Penicillins, pregabalin, [cephalosporin], [Penicillin] (More??) Close Abdomen Ultrasound (Signed) Christina Nugent - 12/07/23 Abdomen/Pelvis CT (Signed) Matthew Eugene - 12/07/23 Chest X-Ray (Signed) Christina Nugent - 12/07/[address] (Signed) Neeraj Walker - 03/22/[address] (Signed) Denise,Neeraj - 03/22/23 Chest X-Ray (Signed) Jean Paul Vigil - 03/22/23 Chest X-Ray (Signed) Chris Boudreaux - 01/26/23 Hip and Pelvis X-Ray (Signed) Jomar Santos - 12/07/21 Launch?Image [place] [address] Ultrasound Report Signed Patient: Tristen Sandhu MR#: [id number] : 1955 Acct:[id number] Age/Sex: 68 / M ADM Date: 12/07/23 Loc: .ED Attending Dr: Ordering Physician: Ashlie Cavazos DO Date of Service: 12/07/23 Procedure(s): US abdomen limited Accession Number(s): [id number] cc: Ashlie Cavazos DO; Physician,Unknown ~ EXAMINATION: US Limited abdomen gallbladder CLINICAL INFORMATION: Follow-up CT scan right upper quadrant pain COMPARISON: CT scan same day earlier TECHNIQUE: High-frequency curvilinear transducer ultrasound utilized, area of interest scanned, right upper quadrant gallbladder scanned. FINDINGS: There is circumferential wall thickening of the gallbladder measuring up to 1.1 cm, low-attenuation suggesting edema. No definitive stone is however visualization of the gallbladder is limited partially obscured by bowel gas. Common bile duct could not be visualized. US/US abdomen limited IMPRESSION: 1. Exam limited by patient's body habitus, bowel gas, patient unable to hold breath.. 2. There is circumferential wall thickening of the gallbladder up to 1.1 cm, low-attenuation of its wall suggesting edema/pericholecystic fluid. Although no gallstone visualized however visualization of the gallbladder is limited, gallbladder neck could not be visualized or assess for possible stones. In the right clinical setting CANNOT RULE OUT CHOLECYSTITIS, please correlate with the clinical exam, consider surgical evaluation, May utilize follow-up HIDA scan. Dictated By: Christina Nugent MD Signed By: <Electronically signed by Christina Nugent MD in OV> 12/07/23 1557 DD/ 1431 TD/TT: Dry Man: NUPUR Assessment and Plan (1) Abdominal pain: Status: Acute Plan 68 year old male with pneumonia - admitted by med team and iv antibx for this but also gallbladder with changes -? acute on chronic cholecystitis - plan to treat for the pneumonia with antibx and then consider HIDA scan and possible cholecystostomy tube for decompression. Pt not a good candidate for surgery with degree of pneumonia. Will follow along Procedures Date of Service Date of Service: 12/08/23
[2023-12-08] MEDS: 0.9 % Sodium Chloride Flush 3 ML SYRINGE IVFLUSH ×4 (00:11→21:10)
[2023-12-08 03:04] VITALS: BP 105/55; PULSE 81; RESP 20; TEMP 37; O2SAT 96
[2023-12-08] MEDS: Lactated Ringers 1,000 ML 80 ML IVCONT ×2 (03:05→16:00)
[2023-12-08] MEDS: Pantoprazole Sodium 20 MG TABLET.DR PO (06:05)
[2023-12-08 07:00] LABS: Hematocrit 33.1 % (42.0-52.0); Hemoglobin 11.2 g/dl (14.0-18.0); Mean Corpuscular HGB Conc 33.8 g/dl (31.0-36.0); Mean Corpuscular Hemoglobin 32.7 pg (27.0-33.0); Mean Corpuscular Volume 96.5 fL (80.0-98.0); Mean Platelet Volume 8.9 fL (9.4-12.4); Platelet Count 137 X10*3/uL (160-400); Red Blood Count 3.43 X10*6/uL (4.60-5.80); Red Cell Distribution Width 12.7 % (11.0-16.0); White Blood Count 5.1 X10*3/uL (4.8-10.8)
[2023-12-08 07:06] LABS: Alanine Aminotransferase 7 U/L (0-40); Albumin Level 3.1 g/dL (3.5-5.0); Alkaline Phosphatase 64 U/L (39-117); Anion Gap 14 (12-20); Aspartate Amino Transferase 10 U/L (5-37); Bilirubin Total 0.5 mg/dL (0.0-1.0); Blood Urea Nitrogen 9 mg/dL (9-16); Calcium 8.7 mg/dL (8.4-10.2); Carbon Dioxide 23 mmol/L (22-29); Chloride 108 mmol/L (96-108); Creatinine Clr Calc Pharmacy 139.6; Estimated Glomerular Filt Rate > 60; Glucose Random 123 mg/dL (60-115); Magnesium 1.7 mg/dL (1.6-2.6); Potassium 3.8 mmol/L (3.3-5.1); Sodium 141 mmol/L (135-145); Total Protein 5.6 g/dL (6.5-8.0)
[2023-12-08 07:47] VITALS: BP 128/71; PULSE 61; RESP 20; TEMP 36.1; O2SAT 95
[2023-12-08 08:08] LABS: Glucose, Whole Blood 109 mg/dL (60-115)
[2023-12-08] MEDS: traZODone HCL 25 MG HALFTAB PO ×2 (09:26→21:09)
[2023-12-08] MEDS: Loratadine 10 MG TABLET PO (09:26)
[2023-12-08] MEDS: Magnesium Oxide 400 MG TABLET PO (09:26)
[2023-12-08] MEDS: Ascorbic Acid 500 MG TABLET PO (09:26)
[2023-12-08] MEDS: Clopidogrel Bisulfate 75 MG TABLET PO (09:26)
[2023-12-08] MEDS: Thiamine HCL 100 MG TABLET PO (09:26)
[2023-12-08] MEDS: QUEtiapine Fumarate 25 MG TABLET PO ×2 (09:26→21:09)
--- NOTE | 2023-12-08 10:27 | MHC.CM.PN ---
IMM 12/08/23 Patient from [facility]. He is dependent with all functional mobility. Pt is WC bound. HCP is on file. Spoke with HCP/Montse SYLVESTER. DP return to [facility] via BLS.
--- NOTE | 2023-12-08 10:35 | HO.PM.IMPN ---
Subjective Subjective Date of Service: 12/08/23 Review of Systems Follow up Physical Exam Vital Signs: Vital Signs: Last Vital Signs Temp 96.9 F 12/08/23 07:47 Pulse 61 12/08/23 07:47 Resp 20 12/08/23 07:47 BP 128/71 12/08/23 07:47 Pulse Ox 95 12/08/23 07:47 O2 Del Method Nasal Cannula 12/08/23 07:47 O2 Flow Rate 2 12/08/23 07:47 BMI result Body Mass Index 24.0 Objective Data Active Medications Acetaminophen (Acetaminophen 325 Mg Tablet) 650 mg PO Q6H PRN PRN Reason: Pain, Mild (Pain Scale 1-3), fever or headache Last Admin: 12/07/23 17:49 Dose: 650 mg Documented By: KAT Acetaminophen (Acetaminophen Supp 650 Mg Supp.Rect) 650 mg IN Q4H PRN PRN Reason: pain or fever Ascorbic Acid (Ascorbic Acid 500 Mg Tablet) 500 mg PO DAILY [facility] Last Admin: 12/08/23 09:26 Dose: 500 mg Documented By: JAZMINEMOALEXANDRA Atorvastatin Calcium (Atorvastatin Calcium 40 Mg Tablet) 40 mg PO BEDTIME [facility] Last Admin: 12/07/23 22:32 Dose: 40 mg Documented By: CY Bisacodyl (Bisacodyl 10 Mg Supp.Rect) 10 mg IN DAILY PRN PRN Reason: Constipation Calcium Carbonate (Calcium Carbonate 750 Mg Tab.Chew) 750 mg PO Q4H PRN PRN Reason: Heartburn Clopidogrel Bisulfate (Clopidogrel Bisulfate 75 Mg Tablet) 75 mg PO DAILY [facility] Last Admin: 12/08/23 09:26 Dose: 75 mg Documented By: JAZMINEMOALEXANDRA Glucose (Glucose Gel 15 Gm Gel..Gram.) 15 gm PO Q15M PRN; Protocol PRN Reason: per Hypoglycemia Standing Ord. Guaifenesin (Guaifenesin 100 Mg/5 Ml Liquid) 10 ml PO Q4H PRN PRN Reason: Cough Lactated Ringer's (Lr) 1,000 mls @ 80 mls/hr IVCONT .[id number] [facility] Last Admin: 12/08/23 03:05 Dose: 80 mls/hr Documented By: RAVEN Ceftriaxone Sodium 1 gm/ (Sodium Chloride) 50 mls @ 100 mls/hr IV Q24H [facility] Azithromycin 500 mg/ Sodium (Chloride) 250 mls @ 125 mls/hr IV Q24H [facility] Dextrose (D10) 250 mls @ 750 mls/hr IV Q15M PRN; Protocol PRN Reason: per Hypoglycemia Standing Ord. Insulin Human Lispro (Insulin Lispro 100 Unit/Ml 3 Ml Vial) 0 unit SUBCUT QIDACHS [facility]; Protocol Last Admin: 12/08/23 09:10 Dose: Not Given Documented By: PODMORP Non-Admin Reason: No Insulin Coverage Loratadine (Loratadine 10 Mg Tablet) 10 mg PO DAILY [facility] Last Admin: 12/08/23 09:26 Dose: 10 mg Documented By: PODMORP Magnesium Hydroxide (Milk Of Magnesia 30 Ml Oral.Susp) 30 ml PO DAILY PRN PRN Reason: Constipation Magnesium Hydroxide (Milk Of Magnesia 30 Ml Oral.Susp) 30 ml PO DAILY PRN PRN Reason: Constipation Magnesium Oxide (Magnesium Oxide 400 Mg Tablet) 400 mg PO DAILY [facility] Last Admin: 12/08/23 09:26 Dose: 400 mg Documented By: PODMORP Melatonin (Melatonin 3 Mg Tablet) 6 mg PO BEDTIME PRN PRN Reason: Insomnia Non-Formulary Medication (Cholecalciferol (Vitamin D3)) 50,000 unit PO FR@0900 [facility] Non-Formulary Medication (Diclofenac Sodium) 4 gm TOPICAL TID [facility] Ondansetron HCl (Ondansetron Hcl 4 Mg/2 Ml Vial) 4 mg IVPUSH Q8H PRN PRN Reason: Nausea and Vomiting Pantoprazole Sodium (Pantoprazole Sodium 20 Mg Tablet.) 20 mg PO DAILY@0630 [facility] Last Admin: 12/08/23 06:05 Dose: 20 mg Documented By: RAVEN Quetiapine Fumarate (Quetiapine Fumarate 25 Mg Tablet) 25 mg PO BID [facility] Last Admin: 12/08/23 09:26 Dose: 25 mg Documented By: JAZMINEMORP Sodium Chloride (0.9 % Sodium Chloride Flush 3 Ml Syringe) 3 ml IVFLUSH QSHIFT [facility] Last Admin: 12/08/23 09:26 Dose: 3 ml Documented By: PODMORP Thiamine HCl (Thiamine Hcl 100 Mg Tablet) 100 mg PO DAILY [facility] Last Admin: 12/08/23 09:26 Dose: 100 mg Documented By: PODMORP Trazodone HCl (Trazodone Hcl 25 Mg Halftab) 25 mg PO BID [facility] Last Admin: 12/08/23 09:26 Dose: 25 mg Documented By: PODMORP Labs 12/08/23 06:26 12/08/23 06:26 Labs: Laboratory Results - last 24 hr 12/07/23 12/07/23 12/07/23 10:50 10:53 11:25 MCV 93.2 MCH 32.6 MCHC 35.0 RDW 12.4 Plt Count 193 MPV 8.8 L Immature Gran % (Auto) 0.3 Neut % (Auto) 84.3 H Lymph % (Auto) 7.9 L [place] % (Auto) 7.1 Eos % (Auto) 0.0 Baso % (Auto) 0.4 Lymph # (Auto) 0.6 L [place] # (Auto) 0.5 Eos # (Auto) 0.0 Baso # (Auto) 0.0 Abs Immat Gran (auto) 0.02 Absolute Neuts (auto) 6.1 Absolute Nucleated RBC 0.000 Nucleated RBC % (auto) 0.0 VBG pH 7.57 H VBG pCO2 26 VBG pO2 185 VBG HCO3 24 VBG O2 Saturation 100.0 VBG Base Excess 3.5 Anion Gap 16 Estim Creat Clear Calc 119.3 Estimated GFR > 60 POC Glucose Random Glucose 178 H Lactic Acid 2.0 Calcium 9.4 Magnesium 1.3 L* Total Bilirubin 0.8 Direct Bilirubin 0.3 AST 15 ALT 9 Alkaline Phosphatase 76 Troponin I High Sens 3.1 C-Reactive Protein 8.61 H B-Natriuretic Peptide 60 Total Protein 7.0 Albumin 3.8 Lipase 9 Procalcitonin 0.16 Urine Color Yellow Urine Appearance Clear Urine pH 6.0 Ur Specific [place] 1.025 Urine Protein 30 (1+) H Urine Glucose (UA) Negative Urine Ketones 15 Urine Blood Negative Urine Nitrite Negative Ur Leukocyte Esterase Negative Urine RBC 0-2 Urine WBC 0-5 Ur Squamous Epith Cells 0-2 Urine Bacteria None Seen Hyaline Casts 0-2 Influenza Type A (PCR) NEGATIVE Influenza Type B (PCR) NEGATIVE RSV RNA Qual (PCR) NEGATIVE SARS-CoV-2 RNA (RT-PCR) NEGATIVE 12/07/23 12/08/23 12/08/23 21:17 06:26 07:50 MCV 96.5 MCH 32.7 MCHC 33.8 RDW 12.7 Plt Count 137 L D MPV 8.9 L Immature Gran % (Auto) Neut % (Auto) Lymph % (Auto) [place] % (Auto) Eos % (Auto) Baso % (Auto) Lymph # (Auto) [place] # (Auto) Eos # (Auto) Baso # (Auto) Abs Immat Gran (auto) Absolute Neuts (auto) Absolute Nucleated RBC 0.000 Nucleated RBC % (auto) 0.0 VBG pH VBG pCO2 VBG pO2 VBG HCO3 VBG O2 Saturation VBG Base Excess Anion Gap 14 Estim Creat Clear Calc 139.6 Estimated GFR > 60 POC Glucose 79 109 Random Glucose 123 H Lactic Acid Calcium 8.7 D Magnesium 1.7 Total Bilirubin 0.5 Direct Bilirubin AST 10 ALT 7 Alkaline Phosphatase 64 Troponin I High Sens C-Reactive Protein B-Natriuretic Peptide Total Protein 5.6 L Albumin 3.1 L Lipase Procalcitonin Urine Color Urine Appearance Urine pH Ur Specific [place] Urine Protein Urine Glucose (UA) Urine Ketones Urine Blood Urine Nitrite Ur Leukocyte Esterase Urine RBC Urine WBC Ur Squamous Epith Cells Urine Bacteria Hyaline Casts Influenza Type A (PCR) Influenza Type B (PCR) RSV RNA Qual (PCR) SARS-CoV-2 RNA (RT-PCR) Assessment and Plan (1) Pneumonia: Status: Acute Plan 68 year old man admitted with sepsis secondary to community-acquired pneumonia Sepsis, not severe, secondary to CAP fever, tachycardia, tachypnea, normal lactic acid IV rocephin, azithromycin Continue supplemental oxygen to keep o2 sat >90% follow cx Gallbladder wall thickening Noted on abdominal ultrasound Already on antibiotics for community-acquired pneumonia General surgery consultation>continue abx, consider HIDA scan and possible darryl tube for decompression. Hypomagnesemia. Resolved Repleted HTN Stable BP continue lisinopril DM2 ss, ada diet Mental health continue medications HLD continue statin DVT prophylaxis with heparin Attending Dr. Rowley Full code Quality Stroke Does the patient have a stroke diagnosis?: No VTE Prior VTE?: No VTE Risk Level:: Medical - moderate - high VTE Device Contraindication: N/A - Device Ordered VTE Drug Contraindication: Treatment Not Indicated
[2023-12-08] MEDS: Heparin Sodium,Porcine 5,000 UNIT/ML VIAL 5000 UNIT SUBCUT ×2 (12:07→21:11)
[2023-12-08 12:10] LABS: Glucose, Whole Blood 144 mg/dL (60-115)
[2023-12-08] MEDS: cefTRIAXone sodium 1 GM in 0.9 % Sodium Chloride 50 ML IV (13:02)
[2023-12-08] MEDS: Azithromycin 500 MG in 0.9 % Sodium Chloride 250 ML 125 MG IV (13:51)
--- NOTE | 2023-12-08 14:35 | P.PNGS_ITS ---
Subjective Subjective Date of Service: 12/08/23 Interval history: Patient claims he is not having abdominal pain no nausea or vomiting tolerating p.o. diet Physical Exam 2 Vital Signs: Vital Signs: Last Vital Signs Temp 96.9 F 12/08/23 07:47 Pulse 61 12/08/23 07:47 Resp 20 12/08/23 07:47 BP 128/71 12/08/23 07:47 Pulse Ox 95 12/08/23 07:47 O2 Del Method Nasal Cannula 12/08/23 07:47 O2 Flow Rate 2 12/08/23 07:47 BMI result Body Mass Index 24.0 GI: Other: His abdomen is soft nondistended nontender although he does have a little bit of guarding throughout the abdomen. No peritoneal signs Objective Data Active Medications Acetaminophen (Acetaminophen 325 Mg Tablet) 650 mg PO Q6H PRN PRN Reason: Pain, Mild (Pain Scale 1-3), fever or headache Last Admin: 12/07/23 17:49 Dose: 650 mg Documented By: KAT Acetaminophen (Acetaminophen Supp 650 Mg Supp.Rect) 650 mg [place] Q4H PRN PRN Reason: pain or fever Ascorbic Acid (Ascorbic Acid 500 Mg Tablet) 500 mg PO DAILY [facility] Last Admin: 12/08/23 09:26 Dose: 500 mg Documented By: JAZMINEMORP Atorvastatin Calcium (Atorvastatin Calcium 40 Mg Tablet) 40 mg PO BEDTIME [facility] Last Admin: 12/07/23 22:32 Dose: 40 mg Documented By: CY Bisacodyl (Bisacodyl 10 Mg Supp.Rect) 10 mg [place] DAILY PRN PRN Reason: Constipation Calcium Carbonate (Calcium Carbonate 750 Mg Tab.Chew) 750 mg PO Q4H PRN PRN Reason: Heartburn Clopidogrel Bisulfate (Clopidogrel Bisulfate 75 Mg Tablet) 75 mg PO DAILY [facility] Last Admin: 12/08/23 09:26 Dose: 75 mg Documented By: PODMORP Glucose (Glucose Gel 15 Gm Gel..Gram.) 15 gm PO Q15M PRN; Protocol PRN Reason: per Hypoglycemia Standing Ord. Guaifenesin (Guaifenesin 100 Mg/5 Ml Liquid) 10 ml PO Q4H PRN PRN Reason: Cough Heparin Sodium (Porcine) (Heparin Sodium,Porcine 5,000 Unit/Ml Vial) 5,000 unit SUBCUT Q12H [facility] Last Admin: 12/08/23 12:07 Dose: 5,000 unit Documented By: JAZMINEMORP Lactated Ringer's (Lr) 1,000 mls @ 80 mls/hr IVCONT .[id number] [facility] Last Admin: 12/08/23 03:05 Dose: 80 mls/hr Documented By: RAVEN Ceftriaxone Sodium 1 gm/ (Sodium Chloride) 50 mls @ 100 mls/hr IV Q24H [facility] Last Infusion: 12/08/23 13:32 Dose: Infused Documented By: JAZMINEMORP Azithromycin 500 mg/ Sodium (Chloride) 250 mls @ 125 mls/hr IV Q24H [facility] Last Admin: 12/08/23 13:51 Dose: 125 mls/hr Documented By: JAZMINEMORP Dextrose (D10) 250 mls @ 750 mls/hr IV Q15M PRN; Protocol PRN Reason: per Hypoglycemia Standing Ord. Insulin Human Lispro (Insulin Lispro 100 Unit/Ml 3 Ml Vial) 0 unit SUBCUT QIDACHS [facility]; Protocol Last Admin: 12/08/23 12:24 Dose: Not Given Documented By: JAZMINEMORP Non-Admin Reason: No Insulin Coverage Loratadine (Loratadine 10 Mg Tablet) 10 mg PO DAILY [facility] Last Admin: 12/08/23 09:26 Dose: 10 mg Documented By: PODMORP Magnesium Hydroxide (Milk Of Magnesia 30 Ml Oral.Susp) 30 ml PO DAILY PRN PRN Reason: Constipation Magnesium Hydroxide (Milk Of Magnesia 30 Ml Oral.Susp) 30 ml PO DAILY PRN PRN Reason: Constipation Magnesium Oxide (Magnesium Oxide 400 Mg Tablet) 400 mg PO DAILY [facility] Last Admin: 12/08/23 09:26 Dose: 400 mg Documented By: PODMORP Melatonin (Melatonin 3 Mg Tablet) 6 mg PO BEDTIME PRN PRN Reason: Insomnia Non-Formulary Medication (Cholecalciferol (Vitamin D3)) 50,000 unit PO FR@0900 [facility] Non-Formulary Medication (Diclofenac Sodium) 4 gm TOPICAL TID [facility] Ondansetron HCl (Ondansetron Hcl 4 Mg/2 Ml Vial) 4 mg IVPUSH Q8H PRN PRN Reason: Nausea and Vomiting Pantoprazole Sodium (Pantoprazole Sodium 20 Mg Tablet.Dr) 20 mg PO DAILY@0630 [facility] Last Admin: 12/08/23 06:05 Dose: 20 mg Documented By: RAVEN Quetiapine Fumarate (Quetiapine Fumarate 25 Mg Tablet) 25 mg PO BID [facility] Last Admin: 12/08/23 09:26 Dose: 25 mg Documented By: PODMORP Sodium Chloride (0.9 % Sodium Chloride Flush 3 Ml Syringe) 3 ml IVFLUSH QSHIFT [facility] Last Admin: 12/08/23 09:26 Dose: 3 ml Documented By: PODMORP Thiamine HCl (Thiamine Hcl 100 Mg Tablet) 100 mg PO DAILY [facility] Last Admin: 12/08/23 09:26 Dose: 100 mg Documented By: PODMORP Trazodone HCl (Trazodone Hcl 25 Mg Halftab) 25 mg PO BID [facility] Last Admin: 12/08/23 09:26 Dose: 25 mg Documented By: JAZMINEMOALEXANDRA Labs 12/08/23 06:26 12/08/23 06:26 Labs: Laboratory Results - last 24 hr 12/07/23 12/08/23 12/08/23 21:17 06:26 07:50 MCV 96.5 MCH 32.7 MCHC 33.8 RDW 12.7 Plt Count 137 L D MPV 8.9 L Absolute Nucleated RBC 0.000 Nucleated RBC % (auto) 0.0 Anion Gap 14 Estim Creat Clear Calc 139.6 Estimated GFR > 60 POC Glucose 79 109 Random Glucose 123 H Calcium 8.7 D Magnesium 1.7 Total Bilirubin 0.5 AST 10 ALT 7 Alkaline Phosphatase 64 Total Protein 5.6 L Albumin 3.1 L 12/08/23 12:04 MCV MCH MCHC RDW Plt Count MPV Absolute Nucleated RBC Nucleated RBC % (auto) Anion Gap Estim Creat Clear Calc Estimated GFR POC Glucose 144 H Random Glucose Calcium Magnesium Total Bilirubin AST ALT Alkaline Phosphatase Total Protein Albumin Microbiology Microbiology Results: Microbiology 12/07/23 10:50 Blood Culture - Preliminary Blood - Venous No growth after 24 hours. 12/07/23 10:53 Blood Culture - Preliminary Blood - Venous No growth after 24 hours. Procedures Date of Service Date of Service: 12/08/23 Progress Note: A&P Assessment and plan (1) Chronic cholecystitis: Status: Acute Plan 68-year-old male admitted for treatment for pneumonia doing better but incidental findings of thickened gallbladder. He had been complaining of some abdominal pain he is not claiming any abdominal pain now he is not tender. Uncertain about how reliable he is. White count remains normal. LFTs were normal yesterday. Would recommend HIDA scan if still concern about acute cholecystitis. Time Spent With Patient Time: Total time managing care of this patient today ____ minutes. Quality Stroke Does the patient have a stroke diagnosis?: No VTE Prior VTE?: No VTE Risk Level:: Medical - moderate - high VTE Device Contraindication: Treatment Not Indicated VTE Drug Contraindication: N/A - Med Ordered
[2023-12-08 15:25] VITALS: BP 176/80; PULSE 88; RESP 20; TEMP 36.1; O2SAT 96
[2023-12-08 16:43] LABS: Glucose, Whole Blood 133 mg/dL (60-115)
[2023-12-08 20:47] LABS: Glucose, Whole Blood 129 mg/dL (60-115)
[2023-12-08] MEDS: Atorvastatin Calcium 40 MG TABLET PO (21:10)
[2023-12-09] VITALS: BP 135/66; PULSE 64; RESP 18; TEMP 36.5; O2SAT 96
[2023-12-09] MEDS: Lactated Ringers 1,000 ML 80 ML IVCONT (04:36)
[2023-12-09] MEDS: Pantoprazole Sodium 20 MG TABLET.DR PO (05:50)
[2023-12-09 07:06] LABS: Glucose, Whole Blood 129 mg/dL (60-115)
[2023-12-09 07:29] VITALS: BP 136/61; PULSE 63; RESP 18; TEMP 37.6; O2SAT 99
[2023-12-09] MEDS: Ascorbic Acid 500 MG TABLET PO (07:57)
[2023-12-09] MEDS: Magnesium Oxide 400 MG TABLET PO (07:57)
[2023-12-09] MEDS: QUEtiapine Fumarate 25 MG TABLET PO ×2 (07:58→20:16)
[2023-12-09] MEDS: Thiamine HCL 100 MG TABLET PO (07:58)
[2023-12-09] MEDS: Loratadine 10 MG TABLET PO (07:58)
[2023-12-09] MEDS: Clopidogrel Bisulfate 75 MG TABLET PO (07:58)
[2023-12-09] MEDS: 0.9 % Sodium Chloride Flush 3 ML SYRINGE IVFLUSH ×3 (07:58→20:16)
[2023-12-09] MEDS: traZODone HCL 25 MG HALFTAB PO ×2 (07:58→20:16)
[2023-12-09 08:20] VITALS: O2SAT 95
--- NOTE | 2023-12-09 09:09 | P.PNIM_ITS ---
Subjective Subjective Date of Service: 12/09/23 Review of Systems Follow up CAP and gallbladder wall thickening Patient seems better, but does have intermittent confusion but seems more awake today Physical Exam 2 Vital Signs: Vital Signs: Last Vital Signs Temp 99.6 F 12/09/23 07:29 Pulse 63 12/09/23 07:29 Resp 18 12/09/23 07:29 BP 136/61 12/09/23 07:29 Pulse Ox 95 12/09/23 08:20 O2 Del Method Room Air 12/09/23 08:20 O2 Flow Rate 2 12/09/23 07:29 BMI result Body Mass Index 24.0 Appearing in no acute distress lung sounds are clear to auscultation heart regular rate rhythm, clear S1, S2 positive bowel sounds, abdomen is soft, nontender neuro patient is alert, confused Objective Data Active Medications Acetaminophen (Acetaminophen 325 Mg Tablet) 650 mg PO Q6H PRN PRN Reason: Pain, Mild (Pain Scale 1-3), fever or headache Last Admin: 12/07/23 17:49 Dose: 650 mg Documented By: KAT Acetaminophen (Acetaminophen Supp 650 Mg Supp.Rect) 650 mg HI Q4H PRN PRN Reason: pain or fever Ascorbic Acid (Ascorbic Acid 500 Mg Tablet) 500 mg PO DAILY [facility] Last Admin: 12/09/23 07:57 Dose: 500 mg Documented By: ASHLYN Atorvastatin Calcium (Atorvastatin Calcium 40 Mg Tablet) 40 mg PO BEDTIME [facility] Last Admin: 12/08/23 21:10 Dose: 40 mg Documented By: KUSH Bisacodyl (Bisacodyl 10 Mg Supp.Rect) 10 mg HI DAILY PRN PRN Reason: Constipation Calcium Carbonate (Calcium Carbonate 750 Mg Tab.Chew) 750 mg PO Q4H PRN PRN Reason: Heartburn Clopidogrel Bisulfate (Clopidogrel Bisulfate 75 Mg Tablet) 75 mg PO DAILY [facility] Last Admin: 12/09/23 07:58 Dose: 75 mg Documented By: ASHLYN Glucose (Glucose Gel 15 Gm Gel..Gram.) 15 gm PO Q15M PRN; Protocol PRN Reason: per Hypoglycemia Standing Ord. Guaifenesin (Guaifenesin 100 Mg/5 Ml Liquid) 10 ml PO Q4H PRN PRN Reason: Cough Heparin Sodium (Porcine) (Heparin Sodium,Porcine 5,000 Unit/Ml Vial) 5,000 unit SUBCUT Q12H [facility] Last Admin: 12/08/23 21:11 Dose: 5,000 unit Documented By: KUSH Lactated Ringer's (Lr) 1,000 mls @ 80 mls/hr IVCONT .[id number] [facility] Last Admin: 12/09/23 04:36 Dose: 80 mls/hr Documented By: KUSH Ceftriaxone Sodium 1 gm/ (Sodium Chloride) 50 mls @ 100 mls/hr IV Q24H [facility] Last Infusion: 12/08/23 13:32 Dose: Infused Documented By: AJZMINEMORP Azithromycin 500 mg/ Sodium (Chloride) 250 mls @ 125 mls/hr IV Q24H [facility] Last Infusion: 12/08/23 15:51 Dose: Infused Documented By: PODMORP Dextrose (D10) 250 mls @ 750 mls/hr IV Q15M PRN; Protocol PRN Reason: per Hypoglycemia Standing Ord. Insulin Human Lispro (Insulin Lispro 100 Unit/Ml 3 Ml Vial) 0 unit SUBCUT QIDACHS [facility]; Protocol Last Admin: 12/09/23 07:14 Dose: Not Given Documented By: ASHLYN Non-Admin Reason: No Insulin Coverage Comments: POC 129 Loratadine (Loratadine 10 Mg Tablet) 10 mg PO DAILY [facility] Last Admin: 12/09/23 07:58 Dose: 10 mg Documented By: ASHLYN Magnesium Hydroxide (Milk Of Magnesia 30 Ml Oral.Susp) 30 ml PO DAILY PRN PRN Reason: Constipation Magnesium Hydroxide (Milk Of Magnesia 30 Ml Oral.Susp) 30 ml PO DAILY PRN PRN Reason: Constipation Magnesium Oxide (Magnesium Oxide 400 Mg Tablet) 400 mg PO DAILY [facility] Last Admin: 12/09/23 07:57 Dose: 400 mg Documented By: ASHLYN Melatonin (Melatonin 3 Mg Tablet) 6 mg PO BEDTIME PRN PRN Reason: Insomnia Non-Formulary Medication (Cholecalciferol (Vitamin D3)) 50,000 unit PO FR@0900 [facility] Non-Formulary Medication (Diclofenac Sodium) 4 gm TOPICAL TID [facility] Ondansetron HCl (Ondansetron Hcl 4 Mg/2 Ml Vial) 4 mg IVPUSH Q8H PRN PRN Reason: Nausea and Vomiting Pantoprazole Sodium (Pantoprazole Sodium 20 Mg Tablet.) 20 mg PO DAILY@0630 [facility] Last Admin: 12/09/23 05:50 Dose: 20 mg Documented By: KUSH Quetiapine Fumarate (Quetiapine Fumarate 25 Mg Tablet) 25 mg PO BID [facility] Last Admin: 12/09/23 07:58 Dose: 25 mg Documented By: ASHLYN Sodium Chloride (0.9 % Sodium Chloride Flush 3 Ml Syringe) 3 ml IVFLUSH QSHIFT [facility] Last Admin: 12/09/23 07:58 Dose: 3 ml Documented By: ASHLYN Thiamine HCl (Thiamine Hcl 100 Mg Tablet) 100 mg PO DAILY [facility] Last Admin: 12/09/23 07:58 Dose: 100 mg Documented By: ASHLYN Trazodone HCl (Trazodone Hcl 25 Mg Halftab) 25 mg PO BID [facility] Last Admin: 12/09/23 07:58 Dose: 25 mg Documented By: ASHLYN Labs 12/08/23 06:26 12/08/23 06:26 Labs: Laboratory Results - last 24 hr 12/08/23 12/08/23 12/08/23 12:04 16:39 20:43 POC Glucose 144 H 133 H 129 H 12/09/23 06:59 POC Glucose 129 H Microbiology Microbiology Results: Microbiology 12/07/23 10:50 Blood Culture - Preliminary Blood - Venous No growth after 24 hours. 12/07/23 10:53 Blood Culture - Preliminary Blood - Venous No growth after 24 hours. Assessment and Plan (1) Pneumonia: Status: Acute Plan 68 year old man admitted with sepsis secondary to community-acquired pneumonia Sepsis, not severe, secondary to CAP fever, tachycardia, tachypnea, normal lactic acid Continue IV rocephin, azithromycin Continue supplemental oxygen to keep o2 sat >90% Blood cultures negative after 24 hours Gallbladder wall thickening Noted on abdominal ultrasound Already on antibiotics for community-acquired pneumonia General surgery consultation>continue abx, consider HIDA scan and possible darryl tube for decompression. HIDA scan ordered, NPO Hypomagnesemia. Resolved Repleted HTN Stable BP DM2 ss, ada diet Mental health/dementia Continue Seroquel and trazodone HLD continue Plavix and statin DVT prophylaxis with heparin Attending Dr. Rowley Full code Quality Stroke Does the patient have a stroke diagnosis?: No VTE Prior VTE?: No VTE Risk Level:: Medical - moderate - high VTE Device Contraindication: Treatment Not Indicated VTE Drug Contraindication: N/A - Med Ordered
--- NOTE | 2023-12-09 10:55 | MHC.CM.PN ---
per rounds, pt is not yet ready for DC. DCP is for him to return to [facility] [place]. Clinical update sent to [facility].
[2023-12-09 10:57] LABS: Glucose, Whole Blood 124 mg/dL (60-115)
[2023-12-09] MEDS: cefTRIAXone sodium 1 GM in 0.9 % Sodium Chloride 50 ML IV (12:28)
[2023-12-09] MEDS: Heparin Sodium,Porcine 5,000 UNIT/ML VIAL 5000 UNIT SUBCUT (12:28)
[2023-12-09] MEDS: Azithromycin 500 MG in 0.9 % Sodium Chloride 250 ML 125 MG IV (13:29)
[2023-12-09 16:00] VITALS: BP 162/77; PULSE 78; RESP 12; TEMP 36.6; O2SAT 95
[2023-12-09 16:46] LABS: Glucose, Whole Blood 103 mg/dL (60-115)
[2023-12-09] MEDS: Melatonin 3 MG TABLET 6 MG PO (20:16)
[2023-12-09] MEDS: Atorvastatin Calcium 40 MG TABLET PO (20:16)
[2023-12-09 20:27] LABS: Glucose, Whole Blood 142 mg/dL (60-115)
[2023-12-09 20:46] VITALS: BP 141/82; PULSE 67; RESP 20; TEMP 36.4; O2SAT 99
[2023-12-09 23:28] VITALS: BP 165/77; PULSE 64; RESP 18; TEMP 36.6; O2SAT 94
[2023-12-10] MEDS: Heparin Sodium,Porcine 5,000 UNIT/ML VIAL 5000 UNIT SUBCUT ×2 (00:01→12:37)
[2023-12-10 04:02] VITALS: BP 165/80; PULSE 62; RESP 18; TEMP 36.7; O2SAT 97
[2023-12-10] MEDS: Pantoprazole Sodium 20 MG TABLET.DR PO (06:29)
[2023-12-10 07:27] LABS: Glucose, Whole Blood 123 mg/dL (60-115)
[2023-12-10 07:34] VITALS: BP 135/75; PULSE 77; RESP 17; TEMP 36.4; O2SAT 95
--- NOTE | 2023-12-10 07:50 | P.DS_ITS ---
DS: Providers Provider Date of Service: 12/10/23 Date of admission: 12/07/23 16:45 Primary care physician: Unknown Physician Consults: 12/07/23 16:45 Consult to General Surgery Routine Consulting Provider: [facility] Reason for consultation: gallbladder wall thickening DS: Diagnosis Discharge Diagnosis (1) Pneumonia: Status: Acute DS: Summary Hospital Course Hospital Course: 68-year-old man presenting from long-term care facility with fever, chills, cough, nausea and hypoxia. Apparently his oxygen saturation was 88% on room air upon arrival to the emergency department. Patient reported feeling unwell, denied any chest pain. In the ER, patient was noted to have magnesium of 1.3, no leukocytosis, T-max of a 102.3 degrees. The patient was given Levaquin, IV fluid, Zofran, IV magnesium, ceftriaxone and azithromycin. Chest x-ray showed mild perihilar interstitial infiltrates with abdominal CT showing airspace opacity in the posterior right lower lobe consistent with pneumonia. Abdominal ultrasound showed some circumferential wall thickening of the gallbladder suggesting edema/maximiliano cholecystic fluid, cholecystitis can not be ruled out. Patient will be admitted for further management and treatment of sepsis secondary to community-acquired pneumonia. 68-year-old man treated for sepsis secondary to community-acquired pneumonia. He was started on IV Rocephin and azithromycin and continued on supplemental oxygen now on room air. Blood cultures have remained negative during hospitalization. Initially imaging showed gallbladder wall thickening, HIDA scan was negative for acute cholecystitis. Patient is at this time on room air and at his baseline mental status. Plan is to transfer patient back to long- term care facility. Patient did have an episode of hypomagnesemia but it was repleted and resolved Diabetes mellitus type 2. Continue home medications Mental Health/dementia. Continue Seroquel and trazodone Hyperlipidemia. Continue aspirin and statin Time Attestation Discharge Coordination Time (in mins): 35 Quality: Safe Use of Opioids Does Pt have an Active Cancer Diagnosis on the Problem List?: No Quality: Stroke Does the patient have a stroke diagnosis?: No Physical Exam Vital Signs: Vital Signs: Last Vital Signs Temp 97.6 F 12/10/23 07:34 Pulse 77 12/10/23 07:34 Resp 17 12/10/23 07:34 BP 135/75 12/10/23 07:34 Pulse Ox 95 12/10/23 07:34 O2 Del Method Room Air 12/10/23 07:34 O2 Flow Rate 2 12/09/23 07:29 BMI result Body Mass Index 24.0 Appearing in no acute distress head is normocephalic atraumatic eyes pupils are PERRLA sclera is anicteric mouth throat mucous membranes are intact and moist neck is supple no lymphadenopathy, no JVD noted lung sounds are clear to auscultation heart regular rate rhythm, clear S1, S2 positive bowel sounds, abdomen is soft, nontender neuro patient is alert, dementia DS: Data Data Completed and Pending Completed studies during hospitalization [Text1]: Procedures Introduction of Remdesivir Anti-infective into Peripheral Vein, Percutaneous Approach, [employer] 5 (01/26/23) Labs on day of discharge: Laboratory Results - last 24 hr 12/09/23 12/09/23 12/09/23 10:51 16:41 20:23 POC Glucose 124 H 103 142 H 12/10/23 07:22 POC Glucose 123 H Preliminary micro results at discharge 12/07/23 10:50 Blood Culture - Preliminary Blood - Venous No growth after 48 hours. 12/07/23 10:53 Blood Culture - Preliminary Blood - Venous No growth after 48 hours. Discharge Plan Discharge Anticipated Discharge Date/Time: 12/10/23 07:46 Patient Disposition: Xfer [facility] Discharge Diagnosis: Sepsis CAP hypomagnesemia Referrals: [facility] [Outside] - 1 Week Discharge Medications: New cefuroxime axetil 500 mg tablet 500 mg PO BID Qty: 6 0RF azithromycin 500 mg tablet 500 mg PO DAILY 3 Days Qty: 3 0RF Continued atorvastatin 40 mg tablet 40 mg PO BEDTIME thiamine HCl (vitamin B1) [Vitamin B-1] 100 mg tablet 100 mg PO DAILY clopidogrel 75 mg tablet 75 mg PO DAILY magnesium oxide 400 mg (241.3 mg magnesium) tablet 400 mg PO DAILY ascorbic acid (vitamin C) [Vitamin C] 500 mg tablet 500 mg PO DAILY metformin 1,000 mg tablet 1,000 mg PO BIDWM cholecalciferol (vitamin D3) 1,250 mcg (50,000 unit) capsule 50,000 unit PO FR@0900 tamsulosin [Flomax] 0.4 mg capsule 0.4 mg PO BEDTIME Qty: 30 0RF quetiapine 25 mg Tablet 25 mg PO BID acetaminophen 650 mg Suppository 650 mg OR Q4H MDD 3g from all sources PRN (Reason: pain or fever) lidocaine 4 % Adhesive Patch,Medicated 1 patch TOPICAL Q24H PRN (Reason: Pain) Rx Instructions: right hip trazodone 50 mg Tablet 25 mg PO BID ondansetron HCl 4 mg tablet 4 mg PO Q6H PRN (Reason: Nausea And Vomiting) acetaminophen 500 mg Tablet 1,000 mg PO TID MDD 3g from all sources guaifenesin 100 mg/5 mL Liquid 200 mg PO Q4H PRN (Reason: Cough) magnesium hydroxide [Milk of Magnesia] 400 mg/5 mL Suspension 30 ml PO DAILY PRN (Reason: Constipation) Rx Instructions: for no BM in 3 days insulin aspart U-100 [Novolog U-100 Insulin aspart] 100 unit/mL Solution See Protocol SUBCUT TIDAC Protocol: Insulin Correction Scale Less than or equal to 110 ---- Give (units): 0 111 to 150 Give (units): 0 151 to 200 Give (units): 2 201 to 250 Give (units): 4 251 to 300 Give (units): 6 301 to 350 Give (units): 8 Greater than 350 Give (units): 10 Call MD if Blood Glucose > : 350 bisacodyl 10 mg Suppository 10 mg OR DAILY PRN (Reason: Constipation) Rx Instructions: if MOM not effective Fleet Enema 19-7 gram/118 mL Enema 118 ml OR DAILY PRN (Reason: Constipation) Rx Instructions: if bisacodyl not effective loratadine 10 mg Tablet 10 mg PO DAILY diclofenac sodium 1 % Gel 4 g TOPICAL TID Rx Instructions: right hip omeprazole 20 mg Tablet,Delayed Release (Dr/Ec) 20 mg PO DAILY@0630 Pulmicort Flexhaler 90 mcg/actuation Aerosol Powdr Breath Activated 2 inh INHALATION DAILY PRN (Reason: Shortness Of Breath) Discharge Orders: Discharge Order (Routine); Ordered 12/10/23 Ordered By: Lorraine Mccracken Diet: Advance to usual diet Activity on Discharge: As tolerated Stand Alone Forms: Patient Portal Discharge page Print Language: Bulgarian Care Plan Goals: Complete course of antibiotics for pneumonia Health Concerns: Sepsis CAP hypomagnesemia Plan of Treatment: Follow up with primary care provider as needed Take all medications as prescribed Assessment: See discharge summary
[2023-12-10] MEDS: Magnesium Oxide 400 MG TABLET PO (08:35)
[2023-12-10] MEDS: Ascorbic Acid 500 MG TABLET PO (08:35)
[2023-12-10] MEDS: Thiamine HCL 100 MG TABLET PO (08:35)
[2023-12-10] MEDS: traZODone HCL 25 MG HALFTAB PO (08:36)
[2023-12-10] MEDS: Loratadine 10 MG TABLET PO (08:36)
[2023-12-10] MEDS: QUEtiapine Fumarate 25 MG TABLET PO (08:36)
[2023-12-10] MEDS: Clopidogrel Bisulfate 75 MG TABLET PO (08:36)
[2023-12-10] MEDS: 0.9 % Sodium Chloride Flush 3 ML SYRINGE IVFLUSH (08:36)
--- NOTE | 2023-12-10 10:20 | MHC.CM.PN ---
Pt has been medically cleared for DC, he will return to [facility] via BLS this afternoon.
[2023-12-10 11:28] LABS: Glucose, Whole Blood 217 mg/dL (60-115)
[2023-12-10] MEDS: Insulin Lispro 100 UNIT/ML 3 ML VIAL SUBCUT (12:36)
--- OUTSIDE RECORDS SUMMARY | 2023-12-11 06:45 | XMS_ITS | Continuity of Care Document ---
Author Organization [facility] Address [address] [facility], 3r d Floor, [address] [place] [id number]- Care Team Providers Care Floor Director Name Role Phone Luiz SALAS, Sonya Primary Care Physician Encounter [facility] Date(s): 01/17/23 - 05/02/23 [facility] [address], [address] Floor, [address] [place] [id number] Attending Physician: Christian Pat MD Admitting Physician: Christian Pat MD Referring Physician: Sonya Dee NP Allergies, [...] pneumococcal 23-valent vaccine 02/04/13 Recorded 1Result Comment: [facility]: [id number] Medications acetaminophen 325 mg oral tablet 650 [...] Confirmed Active 1angioplasty 2000; 3 stents at [facility] 2R frontal stroke secondary [...] Care Nurse Name: Nereida Dobbins RN Position: [facility] [...] Care Nurse Name: Phuong Balderas RN Position: [facility] SN RN Member Role: Primary Care Nurse Name: Evelyn Mcnulty RN Position: [facility] RN Member Role: Primary Care Nurse Name: Yanely Shanks RN Position: [facility] RN Member Role: Primary Care Nurse Name: Sonya Dee NP Position: [facility] PCO Associate Professional Member Role: PCP Address: Address: [address] [place] [address], [address] [place] [id number] Name: Siddhartha Andino RN Position: [facility] RN Member Role: Primary Care Nurse Name: Pola Reid RN Position: [facility] RN Supv Member Role: Primary Care Nurse Name: Betzy Beckford RN Position: [facility] RN Member Role: Primary Care Nurse Name: Susie Galicia RN Position: [facility] RN Member Role: Primary Care Nurse Name: Ezra Acuna RN Position: [facility] [...] Care Nurse Name: Marci Padilla RN Position: [facility] RN Member Role: Primary Care Nurse Name: Dedra Lezama Position: [facility] RN Member Role: Primary Care Nurse Name: Pat Fernando RN Position: [facility] RN Member Role: Primary Care Nurse Name: Marquita Siddiqui RN Position: [facility] RN Member Role: Primary Care Nurse Name: Lazara Krueger RN Position: [facility] RN Member Role: Primary Care Nurse Name: Randa Sagastume RN Position: [facility] RN Member Role: Primary Care Nurse Name: Mitra Patel Position: [facility] RN Member Role: Primary Care Nurse Name: Kacie Campbell NP Position: [facility] PCO Associate Professional Member Role: Primary Care Nurse Address: Address: [address] [place] [address] [place] [address]- Name: Charito Vazquez RN [facility] Care Nurse Name: Mary Wagner RN Position: [facility] RN Member Role: Primary Care Nurse Name: Chandni Gibbons RN Position: [facility] RN Member Role: Primary Care Nurse Name: Reanna Chow RN Position: [facility] RN Member Role: Primary Care Nurse Name: Brayden Elizabeth RN Position: [facility] RN Member Role: Primary Care Nurse Name: Viry Zacarias RN Position: [facility] RN Member Role: Primary Care Nurse Name: Kerri Cunha RN Position: [facility] [employer] Director Member Role: Primary Care Nurse Name: Atiya Mcintyre RN Position: [facility] RN Member Role: Primary Care Nurse Care Team Related Persons Name: IBETH CORRAL Address: home [address] [place] [address]
--- OUTSIDE RECORDS SUMMARY | 2023-12-11 06:47 | XMS_ITS | Continuity of Care Document ---
Author Organization [facility] Address [address] [facility], 3r d Floor, [address] [place] [id number]- Care Team Providers Care Rn Disease Management Name Role Phone Luiz SALAS, Sonya Primary Care Physician Encounter [facility] Date(s): 04/02/23 - 05/02/23 [facility] [address] [facility], 3rd Floor, [address] [place] [id number] Attending Physician: Jacobo Hill Admitting Physician: AdmtrJacobo [...] pneumococcal 23-valent vaccine 02/04/13 Recorded 1Result Comment: [facility]: [id number] Medications acetaminophen 325 mg oral tablet 650 mg, 2, tablet, By Mouth, Every 6 hours, PRN, Maintenance, pain/fever >100F, 09/14/23 14:40:00 EDT, Partial fill upon patient request [...] Care Nurse Name: Nereida Dobbins RN [facility] RN Member Role: Primary Care Nurse Name: Gela Orosco RN [facility] RN Member Role: Primary Care Nurse Name: Jessica Castrejon RN Position[facility] RN Member Role: Primary Care Nurse Name: Hien Hidalgo RN Position[facility] RN Member Role: Primary Care Nurse Name: Phuong Balderas RN Position: [facility] SN RN Member Role: Primary Care Nurse Name: Evelyn Mcnulty RN [facility] RN Member Role: Primary Care Nurse Name: Yanely Shanks RN [facility] RN Member Role: Primary Care Nurse Name: Sonya Dee NP Position: [facility] PCO Associate Professional Member Role: PCP Address: Address: [address] [place] [address], [address] [place] [address] Name: Siddhartha Andino RN [facility] RN Member Role: Primary Care Nurse Name: Pola Reid RN Position[facility] RN Supv Member Role: Primary Care Nurse Name: Betzy Beckford RN Position[facility] RN Member Role: Primary Care Nurse Name: Susie Galicia RN Position: [facility] RN Member Role: Primary Care Nurse Name: Ezra Acuna RN Position: [facility] RN Member Role: Primary Care Nurse Name: Zully Jara Position: [facility] RN Member Role: Primary Care Nurse Name: Yunior Bui RN Position[facility] RN Member Role: Primary Care Nurse Name: Candace Liang RN Position: [facility] RN Member Role: Primary Care Nurse Name: Marci Padilla RN Position[facility] RN Member Role: Primary Care Nurse Name: Dedra Lezama Position: [facility] RN Member Role: Primary Care Nurse Name: Pat Fernando RN Position: [facility] RN Member Role: Primary Care Nurse Name: Marquita Siddiqui RN Position: [facility] RN Member Role: Primary Care Nurse Name: Lazraa Krueger RN Position[facility] RN Member Role: Primary Care Nurse Name: Randa Sagastume RN Position: [facility] RN Member Role: Primary Care Nurse Name: Mitra Patel Position[facility] RN Member Role: Primary Care Nurse Name: Kacie Campbell NP Position: [facility] PCO Associate Professional Member Role: Primary Care Nurse Address: Address: [address] [place] [address] [facility] [place] [address]- Name: Charito Vazquez RN Position[facility] ED RN W/OE and Tasks Member Role: Primary Care Nurse Name: Dylan Bond RN Position: [facility] RN Member Role: Primary Care Nurse Name: Elie Davis RN Position: [facility] RN Member Role: Primary Care Nurse Name: Delfina Still RN Position: [facility] RN Member Role: Primary Care Nurse Name: Mary Wagner RN Position: [facility] RN Member Role: Primary Care Nurse Name: Chandni Gibbons RN Position: [facility] SN RN Member Role: Primary Care Nurse Name: Reanna Chow RN Position[facility] RN Member Role: Primary Care Nurse Name: Brayden Elizabeth RN Position[facility] RN Member Role: Primary Care Nurse Name: Viry Zacarias RN Position[facility] RN Member Role: Primary Care Nurse Name: Kerri Cunha RN Position: [facility] Hospital Food Service Kitchen Supervisor Member Role: Primary Care Nurse Name: Atiya Mcintyre RN Position[facility] RN Member Role: Primary Care Nurse Care Team Related Persons Name: IBETH CORRAL Address: home [address] [place] [address]
== END 2023-12-10 13:48 | DRG 871 ==
LOC: HO.ED 12:15 → HO.EDOVER 16:48 → HO.S3 18:16 → HO.IMC 19:27
PROVIDERS: Admitting Provider Nurse Practitioner Acute Care; Emergency Provider Emergency Medicine; PCP Family Medicine; Visit Provider Nurse Practitioner Acute Care
DX: A41.9 Sepsis, unspecified organism (principal); J18.9 Pneumonia, unspecified organism; J44.0 Chronic obstructive pulmonary disease with (acute) lower respiratory infection; E78.5 Hyperlipidemia, unspecified; E83.42 Hypomagnesemia; G47.33 Obstructive sleep apnea (adult) (pediatric); E11.9 Type 2 diabetes mellitus without complications; G40.909 Epilepsy, unspecified, not intractable, without status epilepticus; F01.50 Vascular dementia, unspecified severity, without behavioral disturbance, psychotic disturbance, mood disturbance, and anxiety; Z20.822 Contact with and (suspected) exposure to COVID-19; Z79.4 Long term (current) use of insulin; Z79.02 Long term (current) use of antithrombotics/antiplatelets; Z79.84 Long term (current) use of oral hypoglycemic drugs; Z79.899 Other long term (current) drug therapy
CPT/HCPCS: 0241U; 36415; 71045; 74177; 76705; 78227; 80048; 80053; 80076; 81001; 82803; 82947; 83605; 83690; 83735; 83880; 84145; 84484; 85025; 85027; 86140; 87040; 93005; 99285; A9537; J0456; J0696; J1644; J1836; J1956; J2405; J2805; J3475; J7120; Q9967

== ENCOUNTER → 2023-12-07 16:45 | Outpatient (BNV) | payer MEDICARE, SELFPAY | PROVIDERS: Admitting Provider Nurse Practitioner Acute Care; Emergency Provider Emergency Medicine; Visit Provider Surgery | DX: K81.1 Chronic cholecystitis (principal); R10.9 Unspecified abdominal pain | CPT/HCPCS: 99222; 99232 ==

== ENCOUNTER → 2023-12-07 16:45 | Outpatient (BNV) | payer MEDICARE, SELFPAY | PROVIDERS: Admitting Provider Nurse Practitioner Acute Care; Emergency Provider Emergency Medicine; Visit Provider Nurse Practitioner Acute Care | DX: A41.9 Sepsis, unspecified organism (principal); J18.9 Pneumonia, unspecified organism; R10.9 Unspecified abdominal pain | CPT/HCPCS: 99223; 99232; 99239 ==

== ENCOUNTER 2024-01-17 13:48 | Outpatient (REF) | payer MEDICARE, MEDICAID, SELFPAY ==
--- NOTE | ~2024-01-17 | CT_ITS ---
EXAMINATION: CT HEAD WITHOUT CONTRAST CLINICAL INFORMATION: Vascular dementia COMPARISON: CT head on 03/22/2023 TECHNIQUE: Contiguous axial imaging was performed from the skull base to vertex without intravenous administration of contrast. This CT examination was performed using dose optimization techniques as appropriate, variously including the following: *Automated exposure control *Adjustment of mA and/or kV according to patient size (this includes techniques or standardized protocols for targeted exams where dose is matched to indication/reason for exam; i.e. extremities or head) *Use of iterative reconstruction technique DLP: 914 mGy-cm FINDINGS: Embolization material in the region of the right MCA bifurcation. Associated streak artifact slightly limits evaluation. Encephalomalacic changes in the right frontal lobe and the right basal ganglia. No acute intracranial hemorrhage or infarct. The anderson-white matter differentiation is preserved. Patchy hypodensity involving the periventricular and deep white matter compatible with small vessel ischemic disease. Diffuse widening of the sulci with associated ex vacuo dilation of the ventricles compatible with global cerebral atrophy. No midline shift or hydrocephalus. No acute extra-axial fluid collections. The osseous structures are unremarkable. Sequelae of bilateral lens replacement. Otherwise, no acute orbital pathology. Mucous retention cyst in the right maxillary sinus. The mastoid air cells are clear. Atherosclerotic calcifications of the bilateral carotid siphons. CT/CT head/brain wo IV con IMPRESSION: 1. No acute intracranial hemorrhage or edematous territorial infarction. 2. Chronic microangiopathy and global cerebral atrophy. Electronically signed by: Cristina Mays MD 03/13/2024 03:08 PM [facility]
== END 2024-01-17 13:49 | disposition home or self-care (01) ==
LOC: HO.CT 13:48
PROVIDERS: PCP Family Medicine; Visit Provider Psychiatry & Neurology Neurology
DX: F01.50 Vascular dementia, unspecified severity, without behavioral disturbance, psychotic disturbance, mood disturbance, and anxiety (principal)
CPT/HCPCS: 70450

== ENCOUNTER 2024-04-20 16:13 | Emergency (ER) | payer MEDICARE, MEDICAID, SELFPAY ==
--- NOTE | ~2024-04-20 | CT_ITS ---
CLINICAL HISTORY: trauma CT of the head without contrast. Comparison 01/17/2024. Findings: Artifact mildly limits the study. There is diffuse atrophy with white matter changes. There is prominent encephalomalacia with gliosis in the right frontal lobe. Probable embolization coil along the right MCA. No definite acute hemorrhage or infarct is seen. There is no hydrocephalus or mass effect. Impression: No definite acute intracranial abnormality is identified. This document has been electronically signed by: Terry De La O MD on 04/20/2024 17:58:24
--- NOTE | ~2024-04-20 | CT_ITS ---
CLINICAL HISTORY: trauma CT of the cervical spine without contrast. Comparison 03/22/2023. Findings: No acute fractures are seen. There is no significant malalignment. There are multilevel degenerative changes. There is mild mucosal thickening of the right maxillary sinus. Impression: No acute fractures. This document has been electronically signed by: Terry De La O MD on 04/20/2024 18:02:14
[2024-04-20 16:45] VITALS: BP 113/65; BP 120/69; PULSE 100; PULSE 104; RESP 18; TEMP 36.9; O2SAT 98; BMI 22.1
[2024-04-20 17:06] LABS: Appearance Urine Clear; Color Urine Yellow; Glucose Urine UA Negative (Negative); Leukocyte Esterase Urine Negative (Negative); Nitrite Urine Negative (Negative); PH 5.5 (5.0-9.0); Specific Gravity - Urine >= 1.030 (1.005-1.025); Urine Blood Negative (Negative); Urine Ketones Trace mg/dL (Negative); Urine Protein Negative (Neg-Trace)
[2024-04-20 17:12] LABS: MANUAL DIFF FLAG NO
[2024-04-20 17:14] LABS: Basophils Percent Auto 0.3 % (0-2); Eosinophils Absolute Auto 0.1 X10*3/uL (0.0-0.4); Eosinophils Percent Auto 0.7 % (0-4); Hemoglobin 13.3 g/dl (14.0-18.0); Imm Gran Abs Auto 0.02 X10*3/uL (0.00-0.03); Imm Gran Pct Auto 0.3 % (0.0-0.4); Lymphocytes Percent Auto 13.9 % (20-40); Mean Corpuscular HGB Conc 34.1 g/dl (31.0-36.0); Mean Corpuscular Hemoglobin 32.4 pg (27.0-33.0); Mean Corpuscular Volume 94.9 fL (80.0-98.0); Mean Platelet Volume 8.3 fL (9.4-12.4); Monocytes Absolute Auto 0.6 X10*3/uL (0.1-1.2); Monocytes Percent Auto 8.3 % (2-11); Neutrophils Absolute Auto 5.5 x10*3/uL (2.0-8.3); Neutrophils Percent Auto 76.5 % (45-73); Platelet Count 234 X10*3/uL (160-400); Red Blood Count 4.11 X10*6/uL (4.60-5.80); Red Cell Distribution Width 11.9 % (11.0-16.0); White Blood Count 7.1 X10*3/uL (4.8-10.8)
[2024-04-20 17:27] LABS: Anion Gap 14 (12-20); Blood Urea Nitrogen 16 mg/dL (9-16); Calcium 9.2 mg/dL (8.4-10.2); Carbon Dioxide 24 mmol/L (22-29); Chloride 106 mmol/L (96-108); Creatinine Clr Calc Pharmacy 106.1; Estimated Glomerular Filt Rate > 60; Glucose Random 207 mg/dL (60-115); Potassium 3.9 mmol/L (3.3-5.1); Sodium 140 mmol/L (135-145)
[2024-04-20 18:00] VITALS: BP 137/62; PULSE 88; RESP 16; TEMP 36.5; O2SAT 97
--- NOTE | 2024-04-20 19:16 | ED_ITS ---
HPI - Fall General Chief Complaint: Fall Stated Complaint: fall, pt confused, heastrike, down15+ blood thiner Time Seen by Provider: 04/20/24 16:45 Source: EMS and RN notes reviewed Limitations: other (Cognitive impairment) History of Present Illness ED Provider: Phuong Hernandez PA-C HPI Narrative: 68-year-old male with the underlying cognitive impairment and gait instability on blood thinners, comes from [facility] after an unwitnessed fall. Patient complains of buttock and hip pain. Related Data Home Medications ?Medication ?Instructions ?Recorded ?Confirmed ascorbic acid (vitamin C) 500 mg 500 mg PO DAILY 01/26/23 12/07/23 tablet (Vitamin C) atorvastatin 40 mg tablet 40 mg PO BEDTIME 01/26/23 12/07/23 cholecalciferol (vitamin D3) 1,250 50,000 unit PO FR@0900 01/26/23 12/07/23 mcg (50,000 unit) capsule clopidogrel 75 mg tablet 75 mg PO DAILY 01/26/23 12/07/23 magnesium oxide 400 mg (241.3 mg 400 mg PO DAILY 01/26/23 12/07/23 magnesium) tablet metformin 1,000 mg tablet 1,000 mg PO BIDWM 01/26/23 12/07/23 thiamine HCl (vitamin B1) 100 mg 100 mg PO DAILY 01/26/23 12/07/23 tablet (Vitamin B-1) acetaminophen 500 mg tablet 1,000 mg PO TID 12/07/23 12/07/23 acetaminophen 650 mg rectal 650 mg WY Q4H PRN pain or fever 12/07/23 12/07/23 suppository bisacodyl 10 mg rectal suppository 10 mg WY DAILY PRN Constipation 12/07/23 12/07/23 budesonide 90 mcg/actuation breath 2 inh inhalation DAILY PRN 12/07/23 12/07/23 activated powder inhaler Shortness Of Breath (Pulmicort Flexhaler) diclofenac sodium 1 % topical gel 4 g topical TID 12/07/23 12/07/23 guaifenesin 100 mg/5 mL oral liquid 200 mg PO Q4H PRN Cough 12/07/23 12/07/23 insulin aspart U-100 100 unit/mL See Protocol subcut TIDAC 12/07/23 12/07/23 subcutaneous solution (Novolog U-100 Insulin aspart) lidocaine 4 % topical patch 1 patch topical Q24H PRN Pain 12/07/23 12/07/23 loratadine 10 mg tablet 10 mg PO DAILY 12/07/23 12/07/23 magnesium hydroxide 400 mg/5 mL 30 ml PO DAILY PRN Constipation 12/07/23 12/07/23 oral suspension (Milk of Magnesia) omeprazole 20 mg tablet,delayed 20 mg PO DAILY@0630 12/07/23 12/07/23 release ondansetron HCl 4 mg tablet 4 mg PO Q6H PRN Nausea And Vomiting 12/07/23 12/07/23 quetiapine 25 mg tablet 25 mg PO BID 12/07/23 12/07/23 sodium phosphates 19 gram-7 118 ml WY DAILY PRN Constipation 12/07/23 12/07/23 gram/118 mL enema (Fleet Enema) trazodone 50 mg tablet 25 mg PO BID 12/07/23 12/07/23 Previous Rx's ?Medication ?Instructions ?Recorded tamsulosin 0.4 mg capsule (Flomax) 0.4 mg PO BEDTIME #30 caps 03/08/23 azithromycin 500 mg tablet 500 mg PO DAILY 3 days #3 tabs 12/10/23 cefuroxime axetil 500 mg tablet 500 mg PO BID #6 tabs 12/10/23 Allergies Allergy/AdvReac Type Severity Reaction Status Date / Time gabapentin [GABAPENTIN] Allergy Unknown N/V Verified 04/20/24 16:48 Penicillins [PENICILLINS] Allergy Unknown RASH Verified 04/20/24 16:48 pregabalin [From LYRICA] Allergy Unknown N/V Verified 04/20/24 16:48 cephalosporin Allergy Unknown Itching Uncoded 12/07/23 10:47 Penicillin Allergy Unknown Swelling Uncoded 12/07/23 10:47 Review of Systems 2 Review of Systems: Unable to obtain secondary to dementia Yes all other systems are reviewed and are negative PMFSH Past Medical History Attestation statement: The following information was validated with the patient. Medical History CLEOPATRA on CPAP Seizure disorder Vascular dementia CVA (cerebral vascular accident) COPD (chronic obstructive pulmonary disease) Hypertension Type 2 diabetes mellitus Social History Social History Household Members: None Housing: Jail Do you presently have visiting nurse or other home services: No Patient Tobacco Use Status: Never used Tobacco Tobacco use type: Cigarette Cigarettes Per Day: 8 Smoked in Last 30 Days: Yes Use of substances other than those prescribed or required for medical reasons: No Substance Use Type: Marijuana Advance Directives: Yes Advance Directives on File: Yes Advance Directives Date on File: 03/08/23 Do you have a plan to hurt others: No Plan service: No Physical Exam 2 Vital Signs: Vital Signs: Last Vital Signs Temp 97.7 F 04/20/24 18:00 Pulse 88 04/20/24 18:00 Resp 16 04/20/24 18:00 BP 137/62 04/20/24 18:00 Pulse Ox 97 04/20/24 18:00 O2 Del Method Room Air 04/20/24 18:00 BMI result Body Mass Index 22.1 Const: Other: Awake, no obvious sign of head trauma on exam, cachectic appears older than stated age Orientation/consciousness: oriented to person Resp: Effort & Inspection: normal respiratory effort Cardio: Other: Normal peripheral perfusion Back/Spine/Pelvis: Other: Superficial ulceration noted superior to buttock crease Skin: Other: Warm dry no rash Neuro: General: oriented to person Extrem: Other: Rigid in his movements, moves all extremities independently, no deformity of the left hip, able to stand and pivot with the assistance without pain Psych: Other: Cooperative flat affect Medical Decision Making Medical Decision Making MDM Narrative: 68-year-old male with the underlying cognitive impairment and gait instability on blood thinners, comes from [facility] after an unwitnessed fall. Patient complains of buttock and hip pain. Problem: Cognitive impairment gait instability on blood thinners History: Per EMS and retirement record I have considered the following differential diagnoses: Intracranial hemorrhage, cervical spine injury, pelvic fracture, hip fracture, dislocation Plan: I have low suspicion for injury to the hip or pelvis given the patient has been manipulated in bed to obtain a straight catheterization, there was no deformity, we are able to move both extremities with a ease he has no pain. We will be screening additional labs, scanning his head and neck given unwitnessed fall and he is on a thinner. I have independently reviewed the following tests: Labs: No leukocytosis, not anemic, no electrolyte abnormality, urine not infected CT brain: Impression: No definite acute intracranial abnormality is identified. This document has been electronically signed by: Terry De La O MD on 04/20/2024 17:58:24 CT cervical spine:Impression: No acute fractures. This document has been electronically signed by: Terry De La O MD on 04/20/2024 18:02:14 Lab Data 04/20/24 17:09 04/20/24 17:09 Labs: Lab Results 04/20/24 04/20/24 Range/Units 17:00 17:09 WBC 7.1 (4.8-10.8) X10*3/uL RBC 4.11 L (4.60-5.80) X10*6/uL Hgb 13.3 L (14.0-18.0) g/dl Hct 39.0 L (42.0-52.0) % MCV 94.9 (80.0-98.0) fL MCH 32.4 (27.0-33.0) pg MCHC 34.1 (31.0-36.0) g/dl RDW 11.9 (11.0-16.0) % Plt Count 234 D (160-400) X10*3/uL MPV 8.3 L (9.4-12.4) fL Immature Gran % (Auto) 0.3 (0.0-0.4) % Neut % (Auto) 76.5 H (45-73) % Lymph % (Auto) 13.9 L (20-40) % Grand % (Auto) 8.3 (2-11) % Eos % (Auto) 0.7 (0-4) % Baso % (Auto) 0.3 (0-2) % Lymph # (Auto) 1.0 L (1.2-4.9) X10*3/uL Grand # (Auto) 0.6 (0.1-1.2) X10*3/uL Eos # (Auto) 0.1 (0.0-0.4) X10*3/uL Baso # (Auto) 0.0 (0.0-0.2) X10*3/uL Abs Immat Gran (auto) 0.02 (0.00-0.03) X10*3/uL Absolute Neuts (auto) 5.5 (2.0-8.3) x10*3/uL Absolute Nucleated RBC 0.000 (0.0-0.012) X10*3/uL Nucleated RBC % (auto) 0.0 (0.0-0.2) /100WBC Sodium 140 (135-145) mmol/L Potassium 3.9 (3.3-5.1) mmol/L Chloride 106 (96-108) mmol/L Carbon Dioxide 24 (22-29) mmol/L Anion Gap 14 (12-20) BUN 16 (9-16) mg/dL Creatinine 0.65 (0.5-1.4) mg/dL Estim Creat Clear Calc 106.1 Estimated GFR > 60 Random Glucose 207 H (60-115) mg/dL Calcium 9.2 (8.4-10.2) mg/dL Urine Color Yellow Urine Appearance Clear Urine pH 5.5 (5.0-9.0) Ur Specific Charlton >= 1.030 H (1.005-1.025) Urine Protein Negative (Neg-Trace) mg/dL Urine Glucose (UA) Negative (Negative) mg/dL Urine Ketones Trace (Negative) mg/dL Urine Blood Negative (Negative) Urine Nitrite Negative (Negative) Ur Leukocyte Esterase Negative (Negative) Discharge Plan Discharge Clinical Impression: Fall at retirement, Skin ulcer of buttock Patient Disposition: Home, Self-Care Additional Instructions: The patient did not sustain any acute injuries, CT scans were obtained of the brain and cervical spine. Screening labs were obtained including a urinalysis, there were no lab abnormalities. The patient was noted to have a superficial skin ulcerations superior to the buttock crease, this does not appear infected at this time. It should be monitored by your staff. The patient is ambulating at his baseline, there was no deformity of the hip or either lower extremity, he is not having pain. Patient can follow up with primary care as needed. Prescriptions: No Action atorvastatin 40 mg tablet 40 mg PO BEDTIME thiamine HCl (vitamin B1) [Vitamin B-1] 100 mg tablet 100 mg PO DAILY clopidogrel 75 mg tablet 75 mg PO DAILY magnesium oxide 400 mg (241.3 mg magnesium) tablet 400 mg PO DAILY ascorbic acid (vitamin C) [Vitamin C] 500 mg tablet 500 mg PO DAILY metformin 1,000 mg tablet 1,000 mg PO BIDWM cholecalciferol (vitamin D3) 1,250 mcg (50,000 unit) capsule 50,000 unit PO FR@0900 tamsulosin [Flomax] 0.4 mg capsule 0.4 mg PO BEDTIME Qty: 30 0RF quetiapine 25 mg Tablet 25 mg PO BID acetaminophen 650 mg Suppository 650 mg WY Q4H MDD 3g from all sources PRN (Reason: pain or fever) lidocaine 4 % Adhesive Patch,Medicated 1 patch TOPICAL Q24H PRN (Reason: Pain) Rx Instructions: right hip trazodone 50 mg Tablet 25 mg PO BID ondansetron HCl 4 mg tablet 4 mg PO Q6H PRN (Reason: Nausea And Vomiting) acetaminophen 500 mg Tablet 1,000 mg PO TID MDD 3g from all sources guaifenesin 100 mg/5 mL Liquid 200 mg PO Q4H PRN (Reason: Cough) magnesium hydroxide [Milk of Magnesia] 400 mg/5 mL Suspension 30 ml PO DAILY PRN (Reason: Constipation) Rx Instructions: for no BM in 3 days insulin aspart U-100 [Novolog U-100 Insulin aspart] 100 unit/mL Solution See Protocol SUBCUT TIDAC Protocol: Insulin Correction Scale Less than or equal to 110 ---- Give (units): 0 111 to 150 Give (units): 0 151 to 200 Give (units): 2 201 to 250 Give (units): 4 251 to 300 Give (units): 6 301 to 350 Give (units): 8 Greater than 350 Give (units): 10 Call MD if Blood Glucose > : 350 bisacodyl 10 mg Suppository 10 mg WY DAILY PRN (Reason: Constipation) Rx Instructions: if MOM not effective Fleet Enema 19-7 gram/118 mL Enema 118 ml WY DAILY PRN (Reason: Constipation) Rx Instructions: if bisacodyl not effective loratadine 10 mg Tablet 10 mg PO DAILY diclofenac sodium 1 % Gel 4 g TOPICAL TID Rx Instructions: right hip omeprazole 20 mg Tablet,Delayed Release (Dr/Ec) 20 mg PO DAILY@0630 Pulmicort Flexhaler 90 mcg/actuation Aerosol Powdr Breath Activated 2 inh INHALATION DAILY PRN (Reason: Shortness Of Breath) cefuroxime axetil 500 mg tablet 500 mg PO BID Qty: 6 0RF azithromycin 500 mg tablet 500 mg PO DAILY 3 Days Qty: 3 0RF Print Language: Sammarinese
--- NOTE | 2024-04-20 19:25 | PC.NURSE ---
pt a&ox2 at times 3, pt was straight cath'd for UA- tolerated well, brief was taken down- buttocks is red but blanching, small area of shearing noted as well. rr equal/non labored, c/o left leg pain, pt went to ct scan, and now awaiting em[facility] vss.
--- NOTE | 2024-04-20 19:30 | PC.NURSE ---
this nurse attempted to call [facility], the phone was answered and transferred to another floor which there was no answer.
--- NOTE | 2024-04-20 20:22 | PC.NURSE ---
This RN assumed pt care @ 1900. Pt alert to self, no signs of distress. Complete [facility] and bed change done. Plan of care ongoing.
[2024-04-20 21:21] VITALS: BP 129/71; PULSE 79; RESP 18; TEMP 36.6; O2SAT 100
[2024-04-20 21:34] VITALS: BP 129/71; PULSE 79; RESP 18; TEMP 36.6; O2SAT 100
[2024-04-20 21:35] VITALS: BP 129/71; PULSE 79; RESP 18; TEMP 36.6; O2SAT 100
== END 2024-04-20 21:40 | disposition home or self-care (01) ==
PROVIDERS: Physician Assistant Medical; Emergency Provider Emergency Medicine
DX: L98.419 Non-pressure chronic ulcer of buttock with unspecified severity (principal); R26.89 Other abnormalities of gait and mobility; M25.559 Pain in unspecified hip; G31.84 Mild cognitive impairment of uncertain or unknown etiology; I10 Essential (primary) hypertension; E11.9 Type 2 diabetes mellitus without complications; J44.9 Chronic obstructive pulmonary disease, unspecified; Z79.899 Other long term (current) drug therapy; Z91.81 History of falling
CPT/HCPCS: 36415; 51701; 70450; 72125; 80048; 81003; 85025; 99284

== ENCOUNTER → 2024-04-20 16:51 | Outpatient (BNV) | payer MEDICARE, MEDICAID, SELFPAY | PROVIDERS: Emergency Provider Emergency Medicine; Visit Provider Radiology Diagnostic Radiology | DX: S19.9XXA Unspecified injury of neck, initial encounter (principal); S09.90XA Unspecified injury of head, initial encounter | CPT/HCPCS: 70450; 72125 ==